=== PATIENT | female | born 1960 | race Caucasian/White ===

== ENCOUNTER → 2017-12-30 07:19 | Outpatient (CLI) | payer BC, SELFPAY ==
[2017-12-30 07:47] LABS: Absolute Lymphocyte Count 2.15 X10^3/ul (0.83-4.51); Absolute Neutrophil Count 3.6 X10^3/uL (2.0-7.7); Basophil# 0.04 X10^3/uL; Basophil% 0.6 % (0-1); Eosinophil# 0.14 X10^3/uL; Eosinophils% 2.2 % (0-5); Hematocrit 42.4 % (37-47); Hemoglobin 13.5 g/dl (12.0-15.0); Lymphocyte # 2.15 X10^3/ul (4.0); Lymphocyte % 33.1 % (19-41); Mean Corp Hgb Conc 31.8 g/gl (32-36); Mean Platelet Vol. 9.5 fl (6.2-12.0); Monocyte# 0.59 X10^3/uL; Monocyte% 9.1 % (0-10); Neutrophil # 3.56 X10^3/uL (2.7-7.7); Neutrophil % 54.8 % (47-70); Platelet Count 332 K/mm3 (150-450); RBC Distribution Width CV 13.2 % (11.6-14.6); RBC Distribution Width SD 43.3 fl (35.1-43.9); Red Blood Count 4.66 M/mm3 (4.2-5.4); White Blood Count 6.5 K/mm3 (4.4-11.0)
[2017-12-30 07:56] LABS: POSITIVE COUNT NO; POSITIVE DIFFERENTIAL NO; POSITIVE MORPHOLOGY NO
[2017-12-30 08:07] LABS: ALB/GLOB Ratio 1.1 RATIO (0.9-2.4); AST(SGOT) 21 U/L (15-37); Alanine Aminotransfer ALT/SGPT 32 U/L (13-56); Albumin, Serum 3.9 g/dL (3.2-5.0); Alkaline Phosphatase 87 U/L (45-117); Anion Gap 7 (5-15); BUN 17 mg/dL (7-18); Calcium,Total 9.1 mg/dL (8.5-10.1); Chloride 101 mmol/L (98-107); Cholesterol 194 mg/dL (200); Creatinine, Serum 0.81 mg/dL (0.55-1.02); EST Glomerular Filtration Rate 78 mL/min (>60); Est Glom Filt Rate - Afr Amer 94 mL/min (>60); Globulin 3.6 g/dL (2.2-4.2); Glucose 103 mg/dL (74-106); High Density Lipoprotein 41 mg/dL; Potassium 4.2 mmol/L (3.5-5.1); Protein, Total 7.5 g/dL (6.4-8.2); Sodium Level 138 mmol/L (136-145); Triglycerides 253 mg/dL; Very Low Density Lipoprotein 51 mg/dL (5-40)
[2017-12-30 08:54] LABS: Vitamin D,25 Hydroxy 32.8 ng/mL (29.95-100.01)
== END ==
PROVIDERS: Family Provider Nurse Practitioner Family; PCP Nurse Practitioner Family; Visit Provider Nurse Practitioner Family
DX: I10 Essential (primary) hypertension (principal); E78.5 Hyperlipidemia, unspecified; E55.9 Vitamin D deficiency, unspecified
CPT/HCPCS: 36415; 80053; 80061; 82306; 85025

== ENCOUNTER → 2018-07-01 07:11 | Outpatient (CLI) | payer BC, SELFPAY ==
[2018-07-01 08:26] LABS: Absolute Lymphocyte Count 1.86 X10^3/ul (0.83-4.51); Absolute Neutrophil Count 4.5 X10^3/uL (2.0-7.7); Basophil# 0.04 X10^3/uL; Basophil% 0.5 % (0-1); Eosinophil# 0.18 X10^3/uL; Eosinophils% 2.5 % (0-5); Hematocrit 43.1 % (37-47); Lymphocyte # 1.86 X10^3/ul (4.0); Lymphocyte % 25.5 % (19-41); Mean Corp Hgb Conc 32.5 g/gl (32-36); Mean Corpuscular Hgb 29.4 pg (27.0-32.0); Mean Corpuscular Volume 90.4 fL (81-99); Monocyte# 0.69 X10^3/uL; Monocyte% 9.5 % (0-10); Neutrophil % 61.7 % (47-70); Platelet Count 310 K/mm3 (150-450); RBC Distribution Width CV 13.3 % (11.6-14.6); RBC Distribution Width SD 43.6 fl (35.1-43.9); Red Blood Count 4.77 M/mm3 (4.2-5.4); White Blood Count 7.3 K/mm3 (4.4-11.0)
[2018-07-01 08:38] LABS: POSITIVE COUNT NO; POSITIVE DIFFERENTIAL NO; POSITIVE MORPHOLOGY NO
[2018-07-01 09:04] LABS: ALB/GLOB Ratio 1.1 RATIO (0.9-2.4); AST(SGOT) 23 U/L (15-37); Alanine Aminotransfer ALT/SGPT 37 U/L (13-56); Albumin, Serum 3.8 g/dL (3.2-5.0); Alkaline Phosphatase 81 U/L (45-117); Anion Gap 10 (5-15); BUN 15 mg/dL (7-18); BUN/Creat Ratio 19.7 RATIO (10-20); Chloride 101 mmol/L (98-107); Cholesterol 183 mg/dL (200); Creatinine, Serum 0.76 mg/dL (0.55-1.02); EST Glomerular Filtration Rate 84 mL/min (>60); Est Glom Filt Rate - Afr Amer 101 mL/min (>60); Globulin 3.5 g/dL (2.2-4.2); Glucose 106 mg/dL (74-106); High Density Lipoprotein 37 mg/dL; Potassium 4.1 mmol/L (3.5-5.1); Protein, Total 7.3 g/dL (6.4-8.2); Sodium Level 140 mmol/L (136-145); Triglycerides 237 mg/dL; Very Low Density Lipoprotein 47 mg/dL (5-40)
== END ==
PROVIDERS: Family Provider Nurse Practitioner Family; PCP Nurse Practitioner Family; Visit Provider Nurse Practitioner Family
DX: I10 Essential (primary) hypertension (principal); E78.5 Hyperlipidemia, unspecified
CPT/HCPCS: 36415; 80053; 80061; 85025

== ENCOUNTER → 2018-12-27 07:00 | Outpatient (CLI) | payer BC, SELFPAY ==
[2018-12-27 08:25] LABS: Absolute Lymphocyte Count 1.78 X10^3/ul (0.83-4.51); Absolute Neutrophil Count 4.7 X10^3/uL (2.0-7.7); Basophil# 0.05 X10^3/uL; Basophil% 0.7 % (0-1); Eosinophils% 2.7 % (0-5); Hematocrit 44.6 % (37-47); Hemoglobin 14.1 g/dl (12.0-15.0); Lymphocyte # 1.78 X10^3/ul (4.0); Mean Corp Hgb Conc 31.6 g/gl (32-36); Mean Corpuscular Hgb 28.4 pg (27.0-32.0); Mean Corpuscular Volume 89.7 fL (81-99); Mean Platelet Vol. 10.2 fl (6.2-12.0); Monocyte# 0.73 X10^3/uL; Monocyte% 9.8 % (0-10); Neutrophil # 4.66 X10^3/uL (2.7-7.7); Neutrophil % 62.7 % (47-70); Platelet Count 276 K/mm3 (150-450); RBC Distribution Width CV 13.2 % (11.6-14.6); RBC Distribution Width SD 42.6 fl (35.1-43.9); Red Blood Count 4.97 M/mm3 (4.2-5.4); White Blood Count 7.4 K/mm3 (4.4-11.0)
[2018-12-27 08:26] LABS: POSITIVE COUNT NO; POSITIVE DIFFERENTIAL NO; POSITIVE MORPHOLOGY NO
[2018-12-27 09:00] LABS: ALB/GLOB Ratio 1.1 RATIO (0.9-2.4); AST(SGOT) 23 U/L (15-37); Alanine Aminotransfer ALT/SGPT 40 U/L (13-56); Albumin, Serum 3.9 g/dL (3.2-5.0); Alkaline Phosphatase 87 U/L (45-117); Anion Gap 7 (5-15); BUN 11 mg/dL (7-18); Calcium,Total 8.8 mg/dL (8.5-10.1); Chloride 103 mmol/L (98-107); Cholesterol 168 mg/dL (200); Creatinine, Serum 0.73 mg/dL (0.55-1.02); EST Glomerular Filtration Rate 87 mL/min (>60); Est Glom Filt Rate - Afr Amer 105 mL/min (>60); Globulin 3.4 g/dL (2.2-4.2); Glucose 100 mg/dL (74-106); High Density Lipoprotein 38 mg/dL; Protein, Total 7.3 g/dL (6.4-8.2); Sodium Level 141 mmol/L (136-145); Triglycerides 230 mg/dL; Very Low Density Lipoprotein 46 mg/dL (5-40)
== END ==
PROVIDERS: Family Provider Nurse Practitioner Family; PCP Nurse Practitioner Family; Referring Provider Nurse Practitioner Family; Visit Provider Nurse Practitioner Family
DX: E78.5 Hyperlipidemia, unspecified (principal); I10 Essential (primary) hypertension
CPT/HCPCS: 36415; 80053; 80061; 85025

== ENCOUNTER → 2019-04-27 | Outpatient (CLI) | payer BC, SELFPAY ==
--- NOTE | 2019-04-27 18:42 | STRESSREP ---
Stress Test Report Pharmacologic myocardial perfusion stress test. 59-year-old lady with a history of known coronary artery disease premature ventricular complexes. Medications: Diovan, Lopressor, Protonix, Plavix, aspirin. Stress protocol: Resting EKG demonstrates normal sinus rhythm with a rate of 71 bpm and frequent premature ventricular complexes noted. Resting blood pressure 162/90 mmHg. 0.4 mg of adenosine was infused per usual protocol followed Intravenous saline flush injection continuous EKG monitoring was performed. Patient maintained sinus rhythm throughout the recording. There was frequent ventricular ectopy noted some in the pattern of bigeminy. The above appeared to be asymptomatic. The maximum heart rate attained was 94 bpm which was 57% of maximum predicted heart rate and maximum workload was 1 metabolic equivalent. The resting blood pressure 162/90 with a final blood pressure 160/88 mmHg. Myocardial perfusion protocol. 13.9 mCi of technetium 99m sestamibi was injected at rest. 0.4 mg of regadenoson was infused per usual protocol peak infusion 41.3 mCi of technetium 99m sestamibi was injected stress images were obtained stress and rest images are reconstructed in comparing the short axis vertical long horizontal long axis. Gated images were also obtained Perfusion SPECT analysis: Review of the images demonstrate a normal cardiac silhouette size. The septum anterior wall lateral wall and inferior wall appear to be well perfused. There is a discrete perfusion defect noted at the apex on the stress and resting images which appeared to be similar. There is also reduced perfusion noted in the mid inferior wall. This is present on the stress and resting images as well. Previous infarct in this distribution cannot be completely excluded. No gated imaging was obtained. Conclusion pharmacologic myocardial perfusion stress test with no obvious ischemia noted. Previous apical infarct cannot be completely excluded as well as mid inferior infarct Premature ventricular complexes noted with ventricular bigeminy present.
== END | disposition home or self-care (01) ==
PROVIDERS: Family Provider Nurse Practitioner Family; PCP Nurse Practitioner Family
DX: R06.02 Shortness of breath (principal); I49.3 Ventricular premature depolarization
CPT/HCPCS: 78452; 93017; 93225; 93226; A9500; A4216; J2785

== ENCOUNTER → 2019-05-29 | Outpatient (CLI) | payer BC, SELFPAY ==
--- NOTE | 2019-05-29 10:38 | PFT ---
INTRODUCTION: The patient is a 59-year-old female who presents for pulmonary function studies secondary to a diagnosis of shortness of breath. Respiratory therapy reports good patient effort. Bronchodilators were used during testing. INTERPRETATION: Forced expiration spirometry demonstrates the presence of a moderate large airways obstructive ventilatory defect with an FEV1 of 66% of predicted. There was a significant response to aerosolized bronchodilators, based upon change noted in FEV1. Spirograms are of good quality and plateau gradually. Body plethysmography was performed and reveals an elevated RV to 154% of predicted, indicative of underlying air trapping. Diffusing capacity by single breath CO is within normal limits. IMPRESSION: Moderate obstructive ventilatory impairment with significant bronchodilator response and associated air trapping.
== END | disposition home or self-care (01) ==
LOC: PSN 06:41
PROVIDERS: Family Provider Nurse Practitioner Family; PCP Nurse Practitioner Family
DX: R06.02 Shortness of breath (principal)
CPT/HCPCS: 94060; 94726; 94729

== ENCOUNTER → 2019-08-15 | Outpatient (CLI) | payer BC, SELFPAY ==
[2019-08-15 09:22] LABS: Absolute Lymphocyte Count 1.97 X10^3/uL (0.83-4.51); Absolute Neutrophil Count 5.4 X10^3/uL (2.0-7.7); Basophil% 1.2 % (0-1); Eosinophil# 0.26 X10^3/uL; Hematocrit 43.5 % (37-47); Hemoglobin 14.2 g/dL (12.0-15.0); Lymphocyte # 1.97 X10^3/ul (4.0); Lymphocyte % 22.7 % (19-41); Mean Corp Hgb Conc 32.6 g/dL (32-36); Mean Corpuscular Hgb 29.3 pg (27.0-32.0); Mean Corpuscular Volume 89.9 fL (81-99); Mean Platelet Vol. 9.8 fl (6.2-12.0); Monocyte# 0.88 X10^3/uL; Monocyte% 10.2 % (0-10); NRBC Flagged by Analyzer 0 % (0-5); Neutrophil # 5.42 X10^3/uL (2.7-7.7); Neutrophil % 62.6 % (47-70); Platelet Count 321 K/mm3 (150-450); RBC Distribution Width CV 12.5 % (11.6-14.6); RBC Distribution Width SD 41.2 fl (35.1-43.9); Red Blood Count 4.84 M/mm3 (4.2-5.4); White Blood Count 8.7 K/mm3 (4.4-11.0)
[2019-08-15 09:49] LABS: ALB/GLOB Ratio 1.2 RATIO (0.9-2.4); AST(SGOT) 19 U/L (15-37); Alanine Aminotransfer ALT/SGPT 33 U/L (13-56); Albumin, Serum 3.8 g/dL (3.2-5.0); Alkaline Phosphatase 83 U/L (45-117); Anion Gap 6 (5-15); BUN 11 mg/dL (7-18); BUN/Creat Ratio 17.2 RATIO (10-20); Calcium,Total 9.1 mg/dL (8.5-10.1); Chloride 102 mmol/L (98-107); Cholesterol 167 mg/dL (200); Creatinine, Serum 0.64 mg/dL (0.55-1.02); EST Glomerular Filtration Rate 101 mL/min (>60); Est Glom Filt Rate - Afr Amer 123 mL/min (>60); Globulin 3.3 g/dL (2.2-4.2); Glucose 98 mg/dL (74-106); High Density Lipoprotein 45 mg/dL; Protein, Total 7.1 g/dL (6.4-8.2); Sodium Level 137 mmol/L (136-145); Triglycerides 121 mg/dL; Very Low Density Lipoprotein 24 mg/dL (5-40)
== END | disposition home or self-care (01) ==
LOC: LAB 08:07
PROVIDERS: Family Provider Nurse Practitioner Family; PCP Nurse Practitioner Family; Referring Provider Nurse Practitioner Family; Visit Provider Nurse Practitioner Family
DX: E78.5 Hyperlipidemia, unspecified (principal); I10 Essential (primary) hypertension; E55.9 Vitamin D deficiency, unspecified
CPT/HCPCS: 36415; 80053; 80061; 82306; 85025

== ENCOUNTER → 2020-02-24 | Outpatient (CLI) | payer BC, SELFPAY ==
[2020-02-24 07:47] LABS: Hematocrit 45.2 % (37-47); Hemoglobin 14.6 g/dL (12.0-15.0); Mean Corp Hgb Conc 32.3 g/dL (32-36); Mean Corpuscular Hgb 29.4 pg (27.0-32.0); Mean Corpuscular Volume 91.1 fL (81-99); Mean Platelet Vol. 9.1 fl (6.2-12.0); Platelet Count 310 K/mm3 (150-450); Red Blood Count 4.96 M/mm3 (4.2-5.4); White Blood Count 7.1 K/mm3 (4.4-11.0)
[2020-02-24 08:09] LABS: ALB/GLOB Ratio 1.1 RATIO (0.9-2.4); AST(SGOT) 26 U/L (15-37); Alanine Aminotransfer ALT/SGPT 43 U/L (13-56); Alkaline Phosphatase 87 U/L (45-117); Anion Gap 11 (5-15); BUN 11 mg/dL (7-18); BUN/Creat Ratio 15.4 RATIO (10-20); Calcium,Total 9.4 mg/dL (8.5-10.1); Chloride 101 mmol/L (98-107); Cholesterol 197 mg/dL (200); Creatinine, Serum 0.71 mg/dL (0.55-1.02); EST Glomerular Filtration Rate 90 mL/min (>60); Est Glom Filt Rate - Afr Amer 108 mL/min (>60); Globulin 3.7 g/dL (2.2-4.2); Glucose 119 mg/dL (74-106); High Density Lipoprotein 43 mg/dL; Potassium 3.6 mmol/L (3.5-5.1); Protein, Total 7.7 g/dL (6.4-8.2); Sodium Level 139 mmol/L (136-145); Triglycerides 260 mg/dL; Very Low Density Lipoprotein 52 mg/dL (5-40)
== END | disposition home or self-care (01) ==
LOC: LAB 07:23
PROVIDERS: PCP Nurse Practitioner Family; Referring Provider Nurse Practitioner Family; Visit Provider Nurse Practitioner Family
DX: I10 Essential (primary) hypertension (principal); E78.5 Hyperlipidemia, unspecified
CPT/HCPCS: 36415; 80053; 80061; 85027

== ENCOUNTER → 2020-05-11 | Outpatient (CLI) | payer BC, SELFPAY ==
--- NOTE | 2020-05-11 16:26 | EKG12_ITS ---
Test Reason : PRE-OP Blood Pressure : / mmHG Vent. Rate : 073 BPM Atrial Rate : 073 BPM P-R Int : 146 ms QRS Dur : 088 ms QT Int : 434 ms P-R-T Axes : -29 035 076 degrees QTc Int : 478 ms Normal sinus rhythm T wave abnormality, consider lateral ischemia Prolonged QT Abnormal ECG Confirmed by JARAD FLORES ([id number]), make up editor JOSE JACINTO ([id number]) on 05/13/2020 2:40:39 PM Referred By: Kiera Vinson Confirmed By:JARAD FLORES
--- NOTE | 2020-05-11 16:55 | RAD_ITS ---
STUDY: X-RAY CHEST REASON FOR EXAM: Female, 60 years old. pre op for surgery, no chest complaints, is a smoker with early COPD TECHNIQUE: PA and lateral views of the chest. COMPARISON: 04/10/2012. FINDINGS: The lungs are clear and expanded. There is no demonstrated pleural abnormality. Normal size heart. Normal mediastinum and yonatan. Normal visualized pulmonary arteries. Normal visualized aortic arch and descending thoracic aorta. Mild thoracic spondylosis. Soft tissues and bony structures are otherwise unremarkable. RAD/Chest PA and Lateral IMPRESSION: Normal x-ray examination of the chest. Electronically Signed: Clarisse Rasmussen MD at 21:18 EDT Tel , Service support ,
[2020-05-11 17:04] LABS: Absolute Lymphocyte Count 2.36 X10^3/uL (0.83-4.51); Basophil# 0.09 X10^3/uL; Basophil% 1.1 % (0-1); Eosinophil# 0.24 X10^3/uL; Eosinophils% 2.8 % (0-5); Hematocrit 43.2 % (37-47); Lymphocyte # 2.36 X10^3/ul (4.0); Lymphocyte % 27.6 % (19-41); Mean Corp Hgb Conc 32.4 g/dL (32-36); Mean Corpuscular Hgb 29.9 pg (27.0-32.0); Mean Corpuscular Volume 92.1 fL (81-99); Mean Platelet Vol. 9.5 fl (6.2-12.0); Monocyte# 0.88 X10^3/uL; Monocyte% 10.3 % (0-10); NRBC Flagged by Analyzer 0 % (0-5); Neutrophil # 4.96 X10^3/uL (2.7-7.7); Neutrophil % 57.8 % (47-70); Platelet Count 291 K/mm3 (150-450); RBC Distribution Width SD 43.2 fl (35.1-43.9); Red Blood Count 4.69 M/mm3 (4.2-5.4); White Blood Count 8.6 K/mm3 (4.4-11.0)
[2020-05-11 17:28] LABS: Anion Gap 3 (5-15); BUN 17 mg/dL (7-18); BUN/Creat Ratio 24.7 RATIO (10-20); Calcium,Total 9.4 mg/dL (8.5-10.1); Chloride 102 mmol/L (98-107); Creatinine, Serum 0.69 mg/dL (0.55-1.02); EST Glomerular Filtration Rate 93 mL/min (>60); Est Glom Filt Rate - Afr Amer 113 mL/min (>60); Glucose 94 mg/dL (74-106); Potassium 3.6 mmol/L (3.5-5.1); Sodium Level 136 mmol/L (136-145)
== END | disposition home or self-care (01) ==
PROVIDERS: PCP Nurse Practitioner Family; Referring Provider Registered Nurse; Visit Provider Registered Nurse
DX: Z01.818 Encounter for other preprocedural examination (principal)
CPT/HCPCS: 36415; 71046; 80048; 85025; 87635; 93005; 94799; U0003

== ENCOUNTER → 2020-09-03 07:18 | Outpatient (CLI) | payer BC, SELFPAY ==
[2020-09-03 07:51] LABS: Hematocrit 44.2 % (37-47); Hemoglobin 14.2 g/dL (12.0-15.0); Mean Corp Hgb Conc 32.1 g/dL (32-36); Mean Corpuscular Hgb 29.3 pg (27.0-32.0); Mean Corpuscular Volume 91.1 fL (81-99); Mean Platelet Vol. 9.4 fl (6.2-12.0); Platelet Count 313 K/mm3 (150-450); RBC Distribution Width CV 12.8 % (11.6-14.6); RBC Distribution Width SD 42.6 fl (35.1-43.9); Red Blood Count 4.85 M/mm3 (4.2-5.4); White Blood Count 7.2 K/mm3 (4.4-11.0)
[2020-09-03 08:43] LABS: ALB/GLOB Ratio 1.2 RATIO (0.9-2.4); AST(SGOT) 24 U/L (15-37); Alanine Aminotransfer ALT/SGPT 36 U/L (13-56); Alkaline Phosphatase 95 U/L (45-117); Anion Gap 5 (5-15); BUN 12 mg/dL (7-18); Chloride 102 mmol/L (98-107); Cholesterol 162 mg/dL (200); Creatinine, Serum 0.67 mg/dL (0.55-1.02); EST Glomerular Filtration Rate 96 mL/min (>60); Est Glom Filt Rate - Afr Amer 117 mL/min (>60); Globulin 3.4 g/dL (2.2-4.2); Glucose 99 mg/dL (74-106); High Density Lipoprotein 45 mg/dL; Potassium 3.7 mmol/L (3.5-5.1); Protein, Total 7.4 g/dL (6.4-8.2); Sodium Level 136 mmol/L (136-145); Triglycerides 121 mg/dL; Very Low Density Lipoprotein 24 mg/dL (5-40)
== END ==
PROVIDERS: PCP Nurse Practitioner Family; Referring Provider Nurse Practitioner Family; Visit Provider Nurse Practitioner Family
DX: I10 Essential (primary) hypertension (principal); E78.5 Hyperlipidemia, unspecified; I25.10 Atherosclerotic heart disease of native coronary artery without angina pectoris
CPT/HCPCS: 36415; 80053; 80061; 85027

== ENCOUNTER → 2021-03-11 09:22 | Outpatient (CLI) | payer BC, SELFPAY ==
[2021-03-11 09:46] LABS: Hematocrit 45.7 % (37-47); Hemoglobin 14.8 g/dL (12.0-15.0); Mean Corp Hgb Conc 32.4 g/dL (32-36); Mean Corpuscular Hgb 29.4 pg (27.0-32.0); Mean Corpuscular Volume 90.7 fL (81-99); Mean Platelet Vol. 9.3 fl (6.2-12.0); Platelet Count 336 K/mm3 (150-450); RBC Distribution Width CV 12.7 % (11.6-14.6); RBC Distribution Width SD 41.7 fl (35.1-43.9); Red Blood Count 5.04 M/mm3 (4.2-5.4); White Blood Count 6.5 K/mm3 (4.4-11.0)
[2021-03-11 10:21] LABS: ALB/GLOB Ratio 1.1 RATIO (0.9-2.4); AST(SGOT) 27 U/L (15-37); Alanine Aminotransfer ALT/SGPT 41 U/L (13-56); Albumin, Serum 4.1 g/dL (3.2-5.0); Alkaline Phosphatase 98 U/L (45-117); Anion Gap 6 (5-15); BUN 13 mg/dL (7-18); BUN/Creat Ratio 16.9 RATIO (10-20); Calcium,Total 9.1 mg/dL (8.5-10.1); Chloride 102 mmol/L (98-107); Cholesterol 183 mg/dL (200); Creatinine, Serum 0.77 mg/dL (0.55-1.02); EST Glomerular Filtration Rate 82 mL/min (>60); Est Glom Filt Rate - Afr Amer 99 mL/min (>60); Globulin 3.7 g/dL (2.2-4.2); Glucose 108 mg/dL (74-106); High Density Lipoprotein 48 mg/dL; Potassium 3.9 mmol/L (3.5-5.1); Protein, Total 7.8 g/dL (6.4-8.2); Sodium Level 138 mmol/L (136-145); Triglycerides 142 mg/dL; Very Low Density Lipoprotein 28 mg/dL (5-40)
== END ==
PROVIDERS: PCP Nurse Practitioner Family; Visit Provider Nurse Practitioner Family
DX: E78.5 Hyperlipidemia, unspecified (principal); I10 Essential (primary) hypertension; R73.01 Impaired fasting glucose; I25.10 Atherosclerotic heart disease of native coronary artery without angina pectoris
CPT/HCPCS: 36415; 80053; 80061; 85027

== ENCOUNTER 2021-04-20 21:20 | Emergency (ER) | payer BC, SELFPAY ==
[2021-04-20 21:21] VITALS: BP 168/105; PULSE 100; RESP 18; TEMP 36.3; O2SAT 100; BMI 36.0
[2021-04-20 21:36] LABS: Bacteria 0 SEEN /hpf (None Seen); Mucous, Urine 0 SEEN /hpf (<or=2+)
[2021-04-20 21:38] LABS: Color, Urine Yellow (Yellow); Glucose, Dipstick 50 mg/dl (Normal); Ketone-Dipstick 15 mg/dl (Negative); Leukocyte Esterase-Dipstick 25 /ul (Negative); Nitrite-Dipstick Negative (Negative); Occult Blood-Urine 10 /ul (Negative); Protein-Dipstick 30 mg/dl (Negative); Urine Clarity Sl. Cloudy (Clear); Urine Urobilinogen 4 mg/dl (Normal)
[2021-04-20 21:43] LABS: Urine Bilirubin Dipstick 3 mg/dL (Negative)
[2021-04-20 21:45] LABS: Red Blood Cells-Urine 0-5 SEEN /hpf (0-5); White Blood Cells 0-5 SEEN /hpf (0-5)
[2021-04-20 21:46] LABS: Amorphous Sediment 1+ URATE; Hyaline Cast 5-10 SEEN /lpf (0-5); Squamous Epithelial Cells - UA 0-5 SEEN /hpf (5-10)
[2021-04-20 22:17] LABS: Absolute Neutrophil Count 7.5 X10^3/uL (2.0-7.7); Basophil# 0.04 X10^3/uL; Basophil% 0.4 % (0-1); Hematocrit 47.6 % (37-47); Hemoglobin 15.8 g/dL (12.0-15.0); Mean Corp Hgb Conc 33.2 g/dL (32-36); Mean Corpuscular Hgb 29.4 pg (27.0-32.0); Mean Corpuscular Volume 88.5 fL (81-99); Mean Platelet Vol. 9.4 fl (6.2-12.0); Monocyte# 0.55 X10^3/uL; Monocyte% 6.1 % (0-10); NRBC Flagged by Analyzer 0 % (0-5); Neutrophil # 7.47 X10^3/uL (2.7-7.7); Neutrophil % 83.1 % (47-70); Platelet Count 347 K/mm3 (150-450); RBC Distribution Width CV 12.7 % (11.6-14.6); RBC Distribution Width SD 41.2 fl (35.1-43.9); Red Blood Count 5.38 M/mm3 (4.2-5.4)
[2021-04-20] MEDS: 0.9% Normal Saline 1,000 ML 1000 ML IV (22:30)
[2021-04-20] MEDS: Ondansetron 4 MG/2 ML Vial IV ×2 (22:30→23:59)
[2021-04-20] MEDS: Morphine 4 MG/ML Syringe IV (22:30)
[2021-04-20 22:32] LABS: Anion Gap 10 (5-15); BUN 19 mg/dL (7-18); BUN/Creat Ratio 16.7 RATIO (10-20); Calcium,Total 10.2 mg/dL (8.5-10.1); Chloride 103 mmol/L (98-107); Creatinine, Serum 1.14 mg/dL (0.55-1.02); EST Glomerular Filtration Rate 52 mL/min (>60); Est Glom Filt Rate - Afr Amer 63 mL/min (>60); Estimated Creatinine Clearance 42.02 ml/min; Glucose 175 mg/dL (74-106); Potassium 3.6 mmol/L (3.5-5.1); Sodium Level 136 mmol/L (136-145)
[2021-04-20 22:54] LABS: AST(SGOT) 30 U/L (15-37); Alanine Aminotransfer ALT/SGPT 45 U/L (13-56); Albumin, Serum 4.5 g/dL (3.2-5.0); Alkaline Phosphatase 101 U/L (45-117); Globulin 3.8 g/dL (2.2-4.2); Lipase 67 U/L (73-393); Protein, Total 8.3 g/dL (6.4-8.2)
[2021-04-21] MEDS: Morphine 4 MG/ML Syringe IV (00:47)
--- NOTE | 2021-04-21 00:57 | EDS_ITS ---
HPI HPI - GI History of Present Illness Chief Complaint: Abd Pain Informant: patient Abdominal Pain/Flank Pain Onset: Yesterday Context: Gradual Onset Timing: Continuous Quality: Dull Location: Epigastric, RUQ and LUQ Worsened by: Nothing Relieved by: Nothing Nausea/Vomiting/Emesis GI Symptom: Positive for Nausea and Vomiting Onset: Yesterday Quality: Positive for Blood streaks Diarrhea/Melena/Hematochezia GI Symptom: Negative for Diarrhea, Melena and Hematochezia Associated Symptoms Associated Symptoms: Negative for Dysuria and Hematuria Narrative Narrative: Patient presents with abdominal pain, nausea, and vomiting for the past 3 days. Patient states it is gradually gotten worse. Patient states her pain is over the epigastric and upper abdomen. Patient describes her pain as a dull ache. Patient states nothing makes it worse and nothing makes it better. Patient denies any diarrhea, melena, or hematochezia. Patient states she has noted some blood in her emesis. Patient denies any dysuria or hematuria. [facility] Medical History Hypertension Home Medications aspirin 325 mg PO QHS 06/06/16 [History Last Taken 06/04/16] clopidogrel 75 mg PO QHS 06/06/16 [History Last Taken 06/04/16] hydrochlorothiazide 12.5 mg PO DAILY 06/06/16 [History Last Taken 06/06/16] lisinopril [Zestril] 40 mg PO BID 06/06/16 [History Last Taken 06/06/16] metoprolol tartrate 50 mg PO BID 06/06/16 [History Last Taken 06/06/16] pantoprazole 40 mg PO DAILY 06/06/16 [History Last Taken 06/06/16] rosuvastatin 10 mg PO QHS 06/06/16 [History Last Taken 06/04/16] promethazine [Phenergan] 25 mg RECTAL Q4H PRN PRN #14 suppos. 08/20/16 [Rx Last Taken Unknown] buspirone 10 mg PO TID 09/29/17 [History Last Taken Unknown] dicyclomine 20 mg PO ACHS #10 cap 09/29/17 [Rx Last Taken Unknown] ondansetron 4 mg PO Q8H PRN PRN #10 tab 04/21/21 [Rx Last Taken Unknown] Allergy/AdvReac Type Severity Reaction Status Date / Time No Known Allergies Allergy Verified 04/20/21 21:23 Surgical History History of appendectomy History of cholecystectomy Social History Smoking Status: Current some day smoker tobacco type: cigarettes ROS ROS ED Constitutional Constitutional ED: Denies chills or fever(s) Eyes Eyes: Denies blurry vision or change in vision ENT ENT ED: Denies rhinorrhea or sore throat Cardiovascular Cardiovascular: Denies chest pain or palpitations Respiratory/Chest Respiratory/Chest: Denies cough or dyspnea Gastrointestinal Gastrointestinal: Reports abdominal pain, nausea and vomiting; Denies diarrhea Genitourinary Genitourinary ED: Denies dysuria or hematuria Musculoskeletal Musculoskeletal: Denies back pain or neck pain Integumentary Denies abscess or rash Neurologic Neurologic: Denies headache(s) or weakness Allergic/Immunologic Allergic/Immunologic ED: Denies mouth swelling or urticaria EXAM Physical Exam Const Vital Signs: 04/20/21 21:21 04/20/21 21:39 04/21/21 01:22 Temperature 97.3 F L Temperature Source Temporal Pulse Rate 100 88 Respiratory Rate 18 16 Respiratory Effort Non-Labored Short of Breath Respiratory Depth Normal Respiratory Pattern Normal Blood Pressure 168/105 H 177/81 H Blood Pressure Mean 126 113 Pulse Ox 100 94 Oxygen Delivery Method Room Air Room Air Positive well nourished, well developed and obese General Appearance ED: well developed Nutritional Appearance: obese HEENT Reports moist mucous membranes Neck supple and no JVD Resp normal respiratory effort and clear to auscultation bilaterally Cardio regular rate, regular rhythm and no murmurs GI normal to inspection, nondistended, normoactive bowel sounds and no masses Palpation: soft and tender epigastric, LUQ and RUQ; Negative for guarding or rebound tenderness present Extremity normal to inspection General Extremety ED: Negative for edema or tenderness General Extremity: Negative for edema Neuro oriented x3, CN's II-XII intact bilaterally and no sensory deficits noted Sensorium / Orientation: alert Motor Exam: strength 5/5 throughout Psych mental status grossly normal Skin no rashes or lesions noted MDM MDM MDM Narrative Medical decision making narrative: Patient was given IV fluids, morphine, and Zofran. CBC shows hemoglobin of 15.8 hematocrit of 47.6. Basic metabolic profile was essentially within normal limits. Urinalysis shows leukocyte esterase of 25, urobilinogen of 4, 8 urine bilirubin of 3, occult blood of 10, ketones of 15, glucose of 50, and protein of 30. Specific gravity was 1.030. Liver profile was normal. Lipase was normal. CT scan of the abdomen and pelvis with oral and IV contrast was obtained. There is no acute intra-abdominal abnormality. This was interpreted by the radiologist and reviewed by myself. Patient was given repeat doses of morphine and Zofran. Patient was advised of her findings. Patient is feeling better on reevaluation. Patient was given prescription for Zofran to take as needed for nausea. Patient was instructed to continue her pantoprazole as prescribed. Patient was instructed to follow-up with her primary care physician in 3 to 5 days. Patient understood and was agreeable with the plan. All questions were answered. Lab Data Attestation: I reviewed the patient's lab results. Labs: Laboratory Results - last 24 hr 04/20/21 04/20/21 04/20/21 21:26 22:00 22:00 WBC 9.0 RBC 5.38 Hgb 15.8 H Hct 47.6 H MCV 88.5 MCH 29.4 MCHC 33.2 RDW Std Deviation 41.2 RDW Coeff of Ramos 12.7 Plt Count 347 MPV 9.4 Immature Gran % (Auto) 0.400 Neut % (Auto) 83.1 H Lymph % (Auto) 10.0 L [place] % (Auto) 6.1 Eos % (Auto) 0.0 Baso % (Auto) 0.4 Absolute Neuts (auto) 7.5 Absolute Lymphs (auto) 0.90 Nucleated RBC % 0 Sodium 136 Potassium 3.6 Chloride 103 Carbon Dioxide 23.0 Anion Gap 10 BUN 19 H Creatinine 1.14 H Estim Creat Clear Calc 42.02 Est GFR (MDRD) Af Amer 63 Est GFR (MDRD) Non-Af 52 L BUN/Creatinine Ratio 16.7 Glucose 175 H Calcium 10.2 H Total Bilirubin Direct Bilirubin AST ALT Alkaline Phosphatase Total Protein Albumin Globulin Lipase Urine Color Yellow Urine Clarity Sl. Cloudy Urine pH 5.0 Ur Specific [place] 1.030 Urine Protein 30 H Urine Glucose (UA) 50 H Urine Ketones 15 H Urine Occult Blood 10 H Urine Nitrite Negative Urine Bilirubin 3 H Urine Urobilinogen 4 H Ur Leukocyte Esterase 25 H Urine RBC 0-5 SEEN Urine WBC 0-5 SEEN Ur Squamous Epith Cells 0-5 SEEN Amorphous Sediment 1+ URATE Urine Bacteria 0 SEEN Hyaline Casts 5-10 SEEN Urine Mucus 0 SEEN 04/20/21 22:00 WBC RBC Hgb Hct MCV MCH MCHC RDW Std Deviation RDW Coeff of Ramos Plt Count MPV Immature Gran % (Auto) Neut % (Auto) Lymph % (Auto) [place] % (Auto) Eos % (Auto) Baso % (Auto) Absolute Neuts (auto) Absolute Lymphs (auto) Nucleated RBC % Sodium Potassium Chloride Carbon Dioxide Anion Gap BUN Creatinine Estim Creat Clear Calc Est GFR (MDRD) Af Amer Est GFR (MDRD) Non-Af BUN/Creatinine Ratio Glucose Calcium Total Bilirubin 0.70 Direct Bilirubin 0.20 AST 30 ALT 45 Alkaline Phosphatase 101 Total Protein 8.3 H Albumin 4.5 Globulin 3.8 Lipase 67 L Urine Color Urine Clarity Urine pH Ur Specific [place] Urine Protein Urine Glucose (UA) Urine Ketones Urine Occult Blood Urine Nitrite Urine Bilirubin Urine Urobilinogen Ur Leukocyte Esterase Urine RBC Urine WBC Ur Squamous Epith Cells Amorphous Sediment Urine Bacteria Hyaline Casts Urine Mucus Radiography Diagnostic Testing: Radiology Impression Abdomen/Pelvis CT 04/21/21 22:22 IMPRESSION: Unremarkable exam. Status post cholecystectomy Electronically Signed: Mundo Tejada DO at 1:07 EDT Tel , Service support , Discharge Plan Triage Chief Complaint: Abd Pain ED Provider: Edmundo Monae Dx/Rx/DC Orders Clinical Impression: Nausea and vomiting Instructions: ED Abdominal Pain Unkn Cause Fem, ED Vomiting (Adult) Prescriptions: New ondansetron [ondansetron] 4 MG tablet 4 mg PO Q8H PRN PRN (Reason: Nausea) Qty: 10 RF: 0 Continued pantoprazole 40 MG tablet 40 mg PO DAILY RF: 0 Discontinued ondansetron 4 MG tablet 4 mg PO Q8H PRN PRN (Reason: Nausea) Qty: 10 RF: 0 ondansetron 8 MG tablet,disintegrating 8 mg PO Q8H PRN PRN (Reason: Nausea/Vomiting) Qty: 5 RF: 0 No Action aspirin 325 MG tablet 325 mg PO QHS RF: 0 clopidogrel 75 MG tablet 75 mg PO QHS RF: 0 metoprolol tartrate 50 MG tablet 50 mg PO BID RF: 0 hydrochlorothiazide 12.5 MG capsule 12.5 mg PO DAILY RF: 0 lisinopril [Zestril] 40 MG tablet 40 mg PO BID RF: 0 rosuvastatin 10 MG tablet 10 mg PO QHS RF: 0 promethazine [Promethegan] 25 MG suppository 25 mg RECTAL Q4H PRN PRN (Reason: Vomiting) Qty: 14 RF: 0 buspirone 5 MG tablet 10 mg PO TID RF: 0 dicyclomine 10 MG capsule 20 mg PO ACHS Qty: 10 RF: 0 Primary Care Provider: Rodney Griffin NP Referrals: Rodney Griffin NP, PHYSICIAN OFFICE ASSISTANT-C [Primary Care Provider] - Disposition Disposition: Home, Self Care
[2021-04-21 01:22] VITALS: BP 177/81; PULSE 88; RESP 16; O2SAT 94
--- NOTE | 2021-04-21 22:22 | CT_ITS ---
STUDY: CT ABDOMEN AND PELVIS WITH CONTRAST REASON FOR EXAM: Female, 61 years old. Abdominal pain -- IV PO Contrast RADIATION DOSAGE (If Supplied By Facility): CTDIvol = ( 15.13 ) mGy, DLP = ( 990.67 ) mGycm TECHNIQUE: Transaxial images were obtained from the dome of the diaphragm to the symphysis pubis with oral contrast. Oral and amp; IV Breeza Neutral and amp; 100mL Isovue-370 was administered. Sagittal and coronal images were reconstructed. Individualized dose optimization techniques were used for this CT. COMPARISON: None. FINDINGS: The visualized lung bases are unremarkable. The visualized portions of the heart are within normal limits. Normal liver. There are surgical clips in the gallbladder fossa consistent with a prior cholecystectomy. Normal spleen. Normal pancreas. Normal bilateral adrenal glands. Normal right kidney. Normal left kidney. Normal visualized stomach. Normal small intestine. There are multiple colonic diverticula consistent with diverticulosis. The appendix is visualized and appears normal. There is diffuse atherosclerotic calcification of the abdominal aorta, without a demonstrated aneurysm. Normal inferior vena cava. Normal retroperitoneum. Normal urinary bladder. Normal visualized uterus. Normal abdominal wall. Normal osseous structures. CT/Abdomen/Pelvis WITH Contrast IMPRESSION: Unremarkable exam. Status post cholecystectomy Electronically Signed: Mundo Tejada DO at 1:07 EDT Tel , Service support ,
== END 2021-04-21 01:48 | disposition home or self-care (01) ==
PROVIDERS: Emergency Provider Emergency Medicine; PCP Nurse Practitioner Family
DX: R11.2 Nausea with vomiting, unspecified (principal); I10 Essential (primary) hypertension; F17.210 Nicotine dependence, cigarettes, uncomplicated; E66.9 Obesity, unspecified; Z79.899 Other long term (current) drug therapy
CPT/HCPCS: 74177; 80048; 80076; 81001; 83690; 85025; 96361; 96374; 96375; 96376; 99284; J7030; Q9967; A4216; J2405

== ENCOUNTER → 2021-09-16 08:10 | Outpatient (CLI) | payer BC, SELFPAY ==
[2021-09-16 08:48] LABS: Hematocrit 44.5 % (37-47); Hemoglobin 14.9 g/dL (12.0-15.0); Mean Corp Hgb Conc 33.5 g/dL (32-36); Mean Corpuscular Hgb 29.3 pg (27.0-32.0); Mean Corpuscular Volume 87.6 fL (81-99); Mean Platelet Vol. 9.3 fl (6.2-12.0); Platelet Count 312 K/mm3 (150-450); RBC Distribution Width CV 12.7 % (11.6-14.6); Red Blood Count 5.08 M/mm3 (4.2-5.4); White Blood Count 5.8 K/mm3 (4.4-11.0)
[2021-09-16 09:19] LABS: AST(SGOT) 30 U/L (15-37); Alanine Aminotransfer ALT/SGPT 56 U/L (13-56); Alkaline Phosphatase 113 U/L (45-117); Anion Gap 9 (5-15); BUN 8 mg/dL (7-18); BUN/Creat Ratio 13.3 RATIO (10-20); Chloride 100 mmol/L (98-107); Cholesterol 181 mg/dL (200); EST Glomerular Filtration Rate 108 mL/min (>60); Est Glom Filt Rate - Afr Amer 131 mL/min (>60); Glucose 98 mg/dL (74-106); High Density Lipoprotein 43 mg/dL; Potassium 3.8 mmol/L (3.5-5.1); Sodium Level 138 mmol/L (136-145); Triglycerides 203 mg/dL; Very Low Density Lipoprotein 41 mg/dL (5-40)
[2021-09-18 09:44] LABS: Vitamin D,25 Hydroxy 28.5 ng/mL
== END ==
PROVIDERS: PCP Nurse Practitioner Family; Referring Provider Nurse Practitioner Family; Visit Provider Nurse Practitioner Family
DX: E55.9 Vitamin D deficiency, unspecified (principal); I10 Essential (primary) hypertension; E78.5 Hyperlipidemia, unspecified; R73.01 Impaired fasting glucose
CPT/HCPCS: 36415; 80053; 80061; 82306; 85027

== ENCOUNTER → 2022-03-31 | Outpatient (CLI) | payer BC, SELFPAY ==
[2022-03-31 09:17] LABS: Hematocrit 45.2 % (37-47); Hemoglobin 15.2 g/dL (12.0-15.0); Mean Corp Hgb Conc 33.6 g/dL (32-36); Mean Corpuscular Hgb 29.7 pg (27.0-32.0); Mean Corpuscular Volume 88.5 fL (81-99); Mean Platelet Vol. 9.4 fl (6.2-12.0); Platelet Count 307 K/mm3 (150-450); RBC Distribution Width CV 12.5 % (11.6-14.6); RBC Distribution Width SD 41.4 fl (35.1-43.9); Red Blood Count 5.11 M/mm3 (4.2-5.4); White Blood Count 5.8 K/mm3 (4.4-11.0)
[2022-03-31 10:07] LABS: AST(SGOT) 21 U/L (15-37); Alanine Aminotransfer ALT/SGPT 37 U/L (13-56); Albumin, Serum 3.6 g/dL (3.2-5.0); Alkaline Phosphatase 98 U/L (45-117); Anion Gap 6 (5-15); BUN 13 mg/dL (7-18); BUN/Creat Ratio 17.1 RATIO (10-20); Calcium,Total 8.9 mg/dL (8.5-10.1); Chloride 102 mmol/L (98-107); Cholesterol 160 mg/dL (200); Creatinine, Serum 0.76 mg/dL (0.55-1.02); EST Glomerular Filtration Rate 82 mL/min (>60); Est Glom Filt Rate - Afr Amer 100 mL/min (>60); Globulin 3.5 g/dL (2.2-4.2); Glucose 102 mg/dL (74-106); High Density Lipoprotein 38 mg/dL; Protein, Total 7.1 g/dL (6.4-8.2); Sodium Level 137 mmol/L (136-145); Triglycerides 141 mg/dL; Very Low Density Lipoprotein 28 mg/dL (5-40)
[2022-04-02 08:01] LABS: Vitamin D,25 Hydroxy 47.8 ng/mL
== END | disposition home or self-care (01) ==
LOC: LAB 08:05
PROVIDERS: PCP Nurse Practitioner Family; Referring Provider Nurse Practitioner Family; Visit Provider Nurse Practitioner Family
DX: I25.10 Atherosclerotic heart disease of native coronary artery without angina pectoris (principal); J44.9 Chronic obstructive pulmonary disease, unspecified; E78.5 Hyperlipidemia, unspecified; R63.8 Other symptoms and signs concerning food and fluid intake; E55.9 Vitamin D deficiency, unspecified; R73.01 Impaired fasting glucose
CPT/HCPCS: 36415; 80053; 80061; 82306; 85027

== ENCOUNTER 2022-07-12 10:44 | Emergency (ER) | payer BC, SELFPAY ==
[2022-07-12 10:45] VITALS: BP 163/141; PULSE 79; RESP 18; TEMP 35.7; O2SAT 99; BMI 30.4
--- NOTE | 2022-07-12 11:20 | ED.VIS.GI ---
HPI HPI - GI History of Present Illness Chief Complaint: Abd Pain Abdominal Pain/Flank Pain Onset: Today Context: Sudden Onset Timing: Continuous Quality: Aching Location: Epigastric and RUQ Worsened by: Nothing Relieved by: Nothing Nausea/Vomiting/Emesis GI Symptom: Positive for Nausea and Vomiting Quality: Positive for Nonbilious; Negative for Blood streaks, Coffee ground or Hematemesis Diarrhea/Melena/Hematochezia GI Symptom: Negative for Diarrhea, Melena or Hematochezia Associated Symptoms Associated Symptoms: Negative for Dysuria, Frequency or Hematuria Narrative Narrative: Presents with epigastric abdominal pain that began today. Patient states that the pain is mainly over the epigastric and right upper abdomen. Patient describes the pain as aching. Patient states the pain is constant. Patient states it began shortly after getting to work today. Patient states nothing makes it worse and nothing makes it better. Patient admits to some nausea and vomiting. Patient denies any hematemesis or coffee-ground emesis. Patient denies any diarrhea, melena, or hematochezia. Patient denies any urinary complaints. Patient denies any back pain. Patient denies any fevers or chills. [facility] Medical History Hypertension Home Medications aspirin 325 mg tablet 325 mg PO QHS 06/06/16 [History Last Taken 06/04/16] clopidogrel 75 mg tablet 75 mg PO QHS 06/06/16 [History Last Taken 06/04/16] hydrochlorothiazide 12.5 mg capsule 12.5 mg PO DAILY 06/06/16 [History Last Taken 06/06/16] lisinopril 40 mg tablet (Zestril) 40 mg PO BID 06/06/16 [History Last Taken 06/06/16] metoprolol tartrate 50 mg tablet 50 mg PO BID 06/06/16 [History Last Taken 06/06/16] rosuvastatin 10 mg tablet 10 mg PO QHS 06/06/16 [History Last Taken 06/04/16] promethazine 25 mg rectal suppository (Promethegan) 25 mg RECTAL Q4H PRN PRN Vomiting ##14 08/20/16 [Rx Last Taken Unknown] buspirone 5 mg tablet 10 mg PO TID 09/29/17 [History Last Taken Unknown] dicyclomine 10 mg capsule 20 mg PO ACHS #10 caps 09/29/17 [Rx Last Taken Unknown] ondansetron 4 mg disintegrating tablet 4 mg PO Q8H PRN PRN Nausea #10 tabs 04/21/21 [Rx Last Taken Unknown] hydrocodone-acetaminophen 5-325mg 5mg-325mg 1 tab PO Q6H PRN PRN Pain 3 days #10 TABLETS 07/12/22 [Rx Last Taken Unknown] ondansetron 4 mg disintegrating tablet 4 mg PO Q8H PRN PRN Nausea #10 tabs 07/12/22 [Rx Last Taken Unknown] pantoprazole 40 mg tablet,delayed release 40 mg PO DAILY #30 tabs 07/12/22 [Rx Last Taken Unknown] Allergy/AdvReac Type Severity Reaction Status Date / Time No Known Allergies Allergy Verified 07/12/22 10:46 Surgical History History of appendectomy History of cholecystectomy Social History Smoking Status: Current some day smoker tobacco type: cigarettes ROS ROS ED Constitutional Constitutional ED: Denies chills or fever(s) Eyes Eyes: Denies blurry vision or change in vision ENT ENT ED: Denies rhinorrhea or sore throat Cardiovascular Cardiovascular: Denies chest pain or palpitations Respiratory/Chest Respiratory/Chest: Denies cough or dyspnea Gastrointestinal Gastrointestinal: Reports abdominal pain, nausea and vomiting; Denies diarrhea Genitourinary Genitourinary ED: Denies dysuria or hematuria Musculoskeletal Musculoskeletal: Denies back pain or neck pain Integumentary Denies abscess or rash Neurologic Neurologic: Denies headache(s) or weakness Allergic/Immunologic Allergic/Immunologic ED: Denies mouth swelling or urticaria EXAM Physical Exam Const Vital Signs: 07/12/22 10:45 07/12/22 13:01 Temperature 96.2 F L Temperature Source Temporal Pulse Rate 79 84 Respiratory Rate 18 16 Blood Pressure 163/141 H 142/67 H Blood Pressure Mean 148 92 Pulse Ox 99 97 Oxygen Delivery Method Room Air Room Air Positive well nourished and well developed General Appearance ED: well developed and NAD HEENT Reports moist mucous membranes Neck supple and no JVD Resp normal respiratory effort and clear to auscultation bilaterally Cardio regular rate, regular rhythm and no murmurs GI normal to inspection, nondistended, normoactive bowel sounds Palpation: soft and tender epigastric and RUQ; Negative for guarding or rebound tenderness present Extremity normal to inspection General Extremety ED: Negative for edema or tenderness General Extremity: Negative for edema Neuro oriented x3, CN's II-XII intact bilaterally and no sensory deficits noted Sensorium / Orientation: alert Motor Exam: strength 5/5 throughout Psych mental status grossly normal Skin no rashes or lesions noted MDM MDM MDM Narrative Medical decision making narrative: Patient was given IV fluids, morphine, and Zofran. CBC shows a hemoglobin of 15.9 and hematocrit 47.7. Comprehensive metabolic profile was essentially within normal limits. Lipase was normal. Lactate was 2.0. Urinalysis does not show any evidence of urinary tract infection. CT scan of the abdomen and pelvis was obtained. There is fatty infiltration of the liver. There is sigmoid diverticulosis but no evidence of sigmoid diverticulitis. There is no acute abnormality. This was interpreted by the radiologist and reviewed by myself. Patient was advised of her findings. Patient was given a prescription for omeprazole. Patient was also given prescriptions for Zofran and a short course of Keldron. Patient was instructed to follow-up with her primary care physician in 3 to 5 days. Patient understood and was agreeable with the plan. All questions were answered. Lab Data Attestation: I reviewed the patient's lab results. Labs: Laboratory Results - last 24 hr 07/12/22 07/12/22 07/12/22 11:36 11:36 11:36 WBC 9.4 RBC 5.34 Hgb 15.9 H Hct 47.7 H MCV 89.3 MCH 29.8 MCHC 33.3 RDW Std Deviation 42.6 RDW Coeff of Ramos 13.0 Plt Count 322 MPV 9.4 Immature Gran % (Auto) 0.500 Neut % (Auto) 78.8 H Lymph % (Auto) 11.8 L [place] % (Auto) 7.7 Eos % (Auto) 0.7 Baso % (Auto) 0.5 Absolute Neuts (auto) 7.4 Absolute Lymphs (auto) 1.10 Nucleated RBC % 0 Sodium 141 Potassium 3.7 Chloride 105 Carbon Dioxide 27.0 Anion Gap 9 BUN 13 Creatinine 1.03 H Estim Creat Clear Calc 45.94 Est GFR (MDRD) Af Amer 70 Est GFR (MDRD) Non-Af 58 L BUN/Creatinine Ratio 12.6 Glucose 170 H Lactic Acid 2.0 Calcium 10.1 Total Bilirubin 0.60 AST 21 ALT 31 Alkaline Phosphatase 95 Total Protein 8.1 Albumin 4.4 Globulin 3.7 Albumin/Globulin Ratio 1.2 Lipase 110 Urine Color Urine Clarity Urine pH Ur Specific [place] Urine Protein Urine Glucose (UA) Urine Ketones Urine Occult Blood Urine Nitrite Urine Bilirubin Urine Urobilinogen Ur Leukocyte Esterase Urine RBC Urine WBC Ur Squamous Epith Cells Urine Bacteria Urine Mucus 07/12/22 14:10 WBC RBC Hgb Hct MCV MCH MCHC RDW Std Deviation RDW Coeff of Ramos Plt Count MPV Immature Gran % (Auto) Neut % (Auto) Lymph % (Auto) [place] % (Auto) Eos % (Auto) Baso % (Auto) Absolute Neuts (auto) Absolute Lymphs (auto) Nucleated RBC % Sodium Potassium Chloride Carbon Dioxide Anion Gap BUN Creatinine Estim Creat Clear Calc Est GFR (MDRD) Af Amer Est GFR (MDRD) Non-Af BUN/Creatinine Ratio Glucose Lactic Acid Calcium Total Bilirubin AST ALT Alkaline Phosphatase Total Protein Albumin Globulin Albumin/Globulin Ratio Lipase Urine Color Yellow Urine Clarity Clear Urine pH 7.0 Ur Specific [place] 1.010 Urine Protein Negative Urine Glucose (UA) Normal Urine Ketones 5 H Urine Occult Blood 10 H Urine Nitrite Negative Urine Bilirubin Negative Urine Urobilinogen Normal Ur Leukocyte Esterase Negative Urine RBC 0-5 SEEN Urine WBC 0 SEEN Ur Squamous Epith Cells 0-5 SEEN Urine Bacteria 0 SEEN Urine Mucus 0 SEEN Radiography Diagnostic Testing: Clinical Impression(s) from Imaging Studies Abdomen/Pelvis CT 07/12/22 13:38 IMPRESSION: Fatty infiltration of the liver. Status post cholecystectomy. Sigmoid diverticulosis. Electronically Signed: Nic Kelsey MD at 14:11 EDT , Discharge Plan Triage Chief Complaint: Abd Pain ED Provider: Edmundo Monae Dx/Rx/DC Orders Clinical Impression: Epigastric pain, Nausea and vomiting, Tobacco user Instructions: ED Abdominal Pain Unkn Cause Fem Prescriptions: New hydrocodone-acetaminophen [hydrocodone-acetaminophen] 5-325 mg tablet 1 tab PO Q6H PRN PRN (Reason: Pain) 3 Days Qty: 10 0RF ondansetron [ondansetron] 4 mg tablet,disintegrating 4 mg PO Q8H PRN PRN (Reason: Nausea) Qty: 10 0RF Continued pantoprazole 40 MG tablet 40 mg PO DAILY Qty: 30 0RF No Action aspirin 325 MG tablet 325 mg PO QHS Label Comments: thinner clopidogrel 75 MG tablet 75 mg PO QHS Label Comments: thinner metoprolol tartrate 50 MG tablet 50 mg PO BID Label Comments: blood pressure hydrochlorothiazide 12.5 MG capsule 12.5 mg PO DAILY Label Comments: blood pressure lisinopril [Zestril] 40 MG tablet 40 mg PO BID Label Comments: blood pressure rosuvastatin 10 MG tablet 10 mg PO QHS Label Comments: cholesterol promethazine [Promethegan] 25 MG suppository 25 mg RECTAL Q4H PRN PRN (Reason: Vomiting) Qty: 14 0RF buspirone 5 MG tablet 10 mg PO TID dicyclomine 10 MG capsule 20 mg PO ACHS Qty: 10 0RF ondansetron [ondansetron] 4 MG tablet 4 mg PO Q8H PRN PRN (Reason: Nausea) Qty: 10 0RF Primary Care Provider: Rodney Griffin NP Referrals: Rodney Griffin NP, FISH SKINNING MACHINE FEEDER-C [Primary Care Provider] - 5-7 Days Disposition Disposition: Home, Self Care
[2022-07-12] MEDS: 0.9% Normal Saline 1,000 ML 1000 ML IV (11:46)
[2022-07-12] MEDS: Ondansetron 4 MG/2 ML Vial IV ×2 (11:46→14:06)
[2022-07-12] MEDS: Morphine 4 MG/ML Syringe IV ×2 (11:46→14:14)
[2022-07-12 11:47] LABS: Absolute Neutrophil Count 7.4 X10^3/uL (2.0-7.7); Basophil# 0.05 X10^3/uL; Basophil% 0.5 % (0-1); Eosinophil# 0.07 X10^3/uL; Eosinophils% 0.7 % (0-5); Hematocrit 47.7 % (37-47); Hemoglobin 15.9 g/dL (12.0-15.0); Lymphocyte % 11.8 % (19-41); Mean Corp Hgb Conc 33.3 g/dL (32-36); Mean Corpuscular Hgb 29.8 pg (27.0-32.0); Mean Corpuscular Volume 89.3 fL (81-99); Mean Platelet Vol. 9.4 fl (6.2-12.0); Monocyte# 0.72 X10^3/uL; Monocyte% 7.7 % (0-10); NRBC Flagged by Analyzer 0 % (0-5); Neutrophil # 7.37 X10^3/uL (2.7-7.7); Neutrophil % 78.8 % (47-70); Platelet Count 322 K/mm3 (150-450); RBC Distribution Width SD 42.6 fl (35.1-43.9); Red Blood Count 5.34 M/mm3 (4.2-5.4); White Blood Count 9.4 K/mm3 (4.4-11.0)
[2022-07-12 12:04] LABS: ALB/GLOB Ratio 1.2 RATIO (0.9-2.4); AST(SGOT) 21 U/L (15-37); Alanine Aminotransfer ALT/SGPT 31 U/L (13-56); Albumin, Serum 4.4 g/dL (3.2-5.0); Alkaline Phosphatase 95 U/L (45-117); Anion Gap 9 (5-15); BUN 13 mg/dL (7-18); BUN/Creat Ratio 12.6 RATIO (10-20); Calcium,Total 10.1 mg/dL (8.5-10.1); Chloride 105 mmol/L (98-107); Creatinine, Serum 1.03 mg/dL (0.55-1.02); EST Glomerular Filtration Rate 58 mL/min (>60); Est Glom Filt Rate - Afr Amer 70 mL/min (>60); Estimated Creatinine Clearance 45.94 ml/min; Globulin 3.7 g/dL (2.2-4.2); Glucose 170 mg/dL (74-106); Lipase 110 U/L (73-393); Potassium 3.7 mmol/L (3.5-5.1); Protein, Total 8.1 g/dL (6.4-8.2); Sodium Level 141 mmol/L (136-145)
[2022-07-12 13:01] VITALS: BP 142/67; PULSE 84; RESP 16; O2SAT 97
--- NOTE | 2022-07-12 13:38 | CT_ITS ---
STUDY: CT ABDOMEN AND PELVIS WITH CONTRAST REASON FOR EXAM: Female, 62 years old. Abdominal pain -- IV PO Contrast. Epigastric pain. RADIATION DOSAGE (If Supplied By Facility): CTDIvol = ( 17.49 ) mGy, DLP = ( 769.12 ) mGycm TECHNIQUE: Transaxial images were obtained from the dome of the diaphragm to the symphysis pubis with oral contrast. ORAL GASTRO AND 100ML OF ISOVUE 370 was administered. Sagittal and coronal images were reconstructed. Individualized dose optimization techniques were used for this CT. COMPARISON: Comparison is made with prior study dated 04/21/2021. FINDINGS: The visualized lung bases are unremarkable. Coronary artery calcification. There is decreased attenuation of the liver consistent with steatosis. A subcentimeter cyst is seen in the lateral midportion of the right lobe of the liver. There are surgical clips in the gallbladder fossa consistent with a prior cholecystectomy. Normal spleen. Normal pancreas. Normal bilateral adrenal glands. Normal right kidney. Normal left kidney. There is a small hiatal hernia. Normal small intestine. There are multiple colonic diverticula consistent with diverticulosis. The appendix is visualized and appears normal. There is diffuse atherosclerotic calcification of the abdominal aorta and its major visceral branches, without a demonstrated aneurysm. Normal inferior vena cava. Normal retroperitoneum. Normal urinary bladder. Normal abdominal wall. There are mild degenerative changes of the visualized lumbar spine. CT/Abdomen/Pelvis WITH Contrast IMPRESSION: Fatty infiltration of the liver. Status post cholecystectomy. Sigmoid diverticulosis. Electronically Signed: Nic Kelsey MD at 14:11 EDT ,
[2022-07-12 14:23] LABS: Bacteria 0 SEEN /hpf (None Seen); Mucous, Urine 0 SEEN /hpf (<or=2+); White Blood Cells 0 SEEN /hpf (0-5)
[2022-07-12 14:24] LABS: Color, Urine Yellow (Yellow); Glucose, Dipstick Normal (Normal); Ketone-Dipstick 5 mg/dl (Negative); Leukocyte Esterase-Dipstick Negative /ul (Negative); Nitrite-Dipstick Negative (Negative); Occult Blood-Urine 10 /ul (Negative); Protein-Dipstick Negative (Negative); Urine Bilirubin Dipstick Negative (Negative); Urine Clarity Clear (Clear); Urine Urobilinogen Normal (Normal)
[2022-07-12 14:35] LABS: Red Blood Cells-Urine 0-5 SEEN /hpf (0-5); Squamous Epithelial Cells - UA 0-5 SEEN /hpf (5-10)
[2022-07-12 15:03] VITALS: BP 173/79; PULSE 72; RESP 16; O2SAT 94
[2022-07-12 15:46] LABS: Reflex Lactate? Y
== END 2022-07-12 15:58 | disposition home or self-care (01) ==
PROVIDERS: Emergency Provider Emergency Medicine; PCP Nurse Practitioner Family; Visit Provider Emergency Medicine
DX: R10.13 Epigastric pain (principal); R11.2 Nausea with vomiting, unspecified; K57.30 Diverticulosis of large intestine without perforation or abscess without bleeding; F17.210 Nicotine dependence, cigarettes, uncomplicated; K76.0 Fatty (change of) liver, not elsewhere classified; I10 Essential (primary) hypertension; Z79.82 Long term (current) use of aspirin; Z79.899 Other long term (current) drug therapy
CPT/HCPCS: 74177; 80053; 81001; 83605; 83690; 85025; 96361; 96374; 96375; 96376; 99283; Q9967; A4216; J2405

== ENCOUNTER 2022-07-14 18:03 | Emergency (ER) | payer BC, SELFPAY ==
[2022-07-14 18:05] VITALS: BP 128/62; PULSE 88; RESP 16; TEMP 36.6; O2SAT 98; BMI 30.3
--- NOTE | 2022-07-14 18:34 | EDS_ITS ---
HPI HPI - GI History of Present Illness Chief Complaint: Abd Pain Informant: patient Abdominal Pain/Flank Pain Onset: Days Context: Gradual Onset Timing: Intermittent Quality: Cramping Location: Diffuse Current Severity: Mild Maximum Severity: Mild Nausea/Vomiting/Emesis GI Symptom: Positive for Nausea and Vomiting Onset: Days Quality: Positive for Nonbilious Severity: Moderate Associated Symptoms Associated Symptoms: Negative for Dysuria, Frequency, Hematuria or Urgency Narrative Narrative: 62-year-old female history of CAD with a stent. Prior cholecystectomy. States was seen in the emergency department after having nausea and vomiting for about a week. Initially had some diarrhea that is since resolved. Said she has oral Zofran at home has been unable to keep it down and has had decreased urine output due to she feels she may be dehydrated. Diffuse crampiness. She had a work-up done on labs are negative CAT scan was unremarkable. States she had this several years ago they attributed to either gastroparesis or a virus. Prior similar symptoms: Yes Recent Illness/Hospitalization: No PFSH PFSH Medical History Hypertension Home Medications aspirin 325 mg tablet 325 mg PO QHS 06/06/16 [History Last Taken 06/04/16] clopidogrel 75 mg tablet 75 mg PO QHS 06/06/16 [History Last Taken 06/04/16] hydrochlorothiazide 12.5 mg capsule 12.5 mg PO DAILY 06/06/16 [History Last Taken 06/06/16] lisinopril 40 mg tablet (Zestril) 40 mg PO BID 06/06/16 [History Last Taken 06/06/16] metoprolol tartrate 50 mg tablet 50 mg PO BID 06/06/16 [History Last Taken 06/06/16] rosuvastatin 10 mg tablet 10 mg PO QHS 06/06/16 [History Last Taken 06/04/16] promethazine 25 mg rectal suppository (Promethegan) 25 mg RECTAL Q4H PRN PRN Vomiting ##14 08/20/16 [Rx Last Taken Unknown] buspirone 5 mg tablet 10 mg PO TID 09/29/17 [History Last Taken Unknown] dicyclomine 10 mg capsule 20 mg PO ACHS #10 caps 09/29/17 [Rx Last Taken Unknown] ondansetron 4 mg disintegrating tablet 4 mg PO Q8H PRN PRN Nausea #10 tabs 04/21/21 [Rx Last Taken Unknown] hydrocodone-acetaminophen 5-325mg 5mg-325mg 1 tab PO Q6H PRN PRN Pain 3 days #10 TABLETS 07/12/22 [Rx Last Taken Unknown] ondansetron 4 mg disintegrating tablet 4 mg PO Q8H PRN PRN Nausea #10 tabs 07/12/22 [Rx Last Taken Unknown] pantoprazole 40 mg tablet,delayed release 40 mg PO DAILY #30 tabs 07/12/22 [Rx Last Taken Unknown] Allergy/AdvReac Type Severity Reaction Status Date / Time No Known Allergies Allergy Verified 07/12/22 10:46 Surgical History History of appendectomy History of cholecystectomy Social History Smoking Status: Current some day smoker tobacco type: cigarettes ROS ROS ED ROS Narrative Nausea and vomiting. Review of Systems ROS Unobtainable: Denies due to encephalopathy Constitutional Constitutional ED: Denies chills or fever(s) ENT ENT ED: Denies ear pain Cardiovascular Cardiovascular: Denies chest pain Respiratory/Chest Respiratory/Chest: Denies cough or dyspnea Gastrointestinal Gastrointestinal: Reports abdominal pain, diarrhea, nausea and vomiting; Denies constipation or melena Genitourinary Genitourinary ED: Denies dysuria or hematuria Musculoskeletal Musculoskeletal: Denies arthralgias Integumentary Denies abscess Neurologic Neurologic: Denies headache(s) Psychiatric Psychiatric: Denies anxiety Endocrine Endocrinology: Denies polydipsia Hematologic/Lymphatic Hematologic/Lymphatic: Denies easy bleeding Allergic/Immunologic Allergic/Immunologic ED: Denies mouth swelling EXAM Physical Exam Narrative Exam Narrative: 8-year-old female no acute distress vital signs stable afebrile. H EENT exam unremarkable. Neck nontender. Lungs are clear. Heart regular rhythm rate about 90 no murmur. Abdomen soft nondistended normal bowel sounds no peritoneal signs. No obstruction. No hernia or mass. Right upper and right lower quadrants are unremarkable. Soft normal bowel sounds. Moving all 4 extremities. Back nontender. Neurologic exam awake alert no focal deficits. Const Vital Signs: 07/14/22 18:05 Temperature 97.8 F Temperature Source Temporal Pulse Rate 88 Respiratory Rate 16 Blood Pressure 128/62 H Blood Pressure Mean 84 Pulse Ox 98 Oxygen Delivery Method Room Air Positive well nourished and well developed; Negative for cachectic, contractures or unkempt General Appearance ED: well developed and NAD; Negative for unkempt, cachectic, contractures or pallor Nutritional Appearance: Negative for cachectic HEENT Reports moist mucous membranes normocephalic and atraumatic; Negative for trauma or tenderness Eyes PERRL and EOMs intact bilaterally General Eye ED: Negative for pale conjunctiva or scleral icterus Neck no lymphadenopathy, supple and no JVD General: Negative for tenderness Lymph Lymphatic: Negative for other Resp normal respiratory effort and clear to auscultation bilaterally Effort and Inspection: Negative for respiratory distress or retractions Auscultation: Negative for rales, rhonchi or wheezes Cardio regular rate, regular rhythm, S1 normal heart sound, S2 normal heart sound and no murmurs Rate: Negative for bradycardia Rhythm: Negative for abnormal rhythm GI non-tender, non-distended and no masses Inspection: Negative for abdominal distention Auscultation: normoactive bowel sounds Palpation: soft; Negative for tender, guarding, rigid, hernia, mass or pulsatile mass Back/Spine no CVA tenderness General Back: Negative for CVA tenderness Cervical Spine: Negative for cervical spine tenderness Thoracic Spine / Upper Back: Negative for thoracic spinal tenderness Lumbar Spine / Lower Back: Negative for lumbar spinal tenderness Coccyx: Negative for other Extremity full ROM General Extremety ED: Negative for edema or tenderness General Extremity: Negative for edema Neuro CN's II-XII intact bilaterally, moves all extremities and no sensory deficits noted Sensorium / Orientation: alert, oriented to person, oriented to place and oriented to time; Negative for orientation impaired, confused, lethargic or stuporous Motor Exam: strength 5/5 throughout Psych mental status grossly normal and thought process normal Appearance: Negative for unkempt Attitude: No agitated Mood & Affect: Negative for depressed or anxious Skin no wounds General Skin Exam: Negative for jaundice or pallor Lesions: no lesions Rashes: no rashes Trauma: Negative for abrasion Nails: Negative for discolored MDM MDM MDM Narrative Medical decision making narrative: 62-year-old with nausea vomiting. Abdomen is benign. She has had several CAT scans one done several days ago and over the last several months all of which have been unremarkable. She will be treated with IV fluids and IV Zofran. Labs are being obtained. The labs she had done the other day were unremarkable. Repeat exam at 8:08 PM patient doing well. Feels better after morphine and Zofran. Abdomen benign. She will be discharged home. She has appointment to see a local surgeon Dr. Sony Cedeño on Saturday. She has nausea medication at home. Lab Data Attestation: I reviewed the patient's lab results. Lab results narrative: CBC unremarkable white count 10.2 H&H of 15 and 45. Electrolytes unremarkable potassium of 3.3 gap of 13 normal BUN and creatinine. Glucose 165. Normal li xavier enzymes. Normal lipase. Labs: Laboratory Results - last 24 hr 07/14/22 07/14/22 18:25 18:25 WBC 10.2 RBC 5.25 Hgb 15.8 H Hct 45.8 MCV 87.2 MCH 30.1 MCHC 34.5 RDW Std Deviation 40.8 RDW Coeff of Ramos 12.8 Plt Count 334 MPV 9.9 Immature Gran % (Auto) 0.500 Neut % (Auto) 78.8 H Lymph % (Auto) 10.9 L [place] % (Auto) 8.8 Eos % (Auto) 0.3 Baso % (Auto) 0.7 Absolute Neuts (auto) 8.0 H Absolute Lymphs (auto) 1.11 Nucleated RBC % 0 Sodium 140 Potassium 3.3 L Chloride 103 Carbon Dioxide 24.0 Anion Gap 13 BUN 15 Creatinine 0.99 Estim Creat Clear Calc 47.79 Est GFR (MDRD) Af Amer 74 Est GFR (MDRD) Non-Af 61 BUN/Creatinine Ratio 15.2 Glucose 165 H Calcium 10.6 H Total Bilirubin 0.90 AST 23 ALT 31 Alkaline Phosphatase 90 Total Protein 8.2 Albumin 4.6 Globulin 3.6 Albumin/Globulin Ratio 1.3 Lipase 108 Discharge Plan Triage Chief Complaint: Abd Pain ED Provider: Aleksandar Rain Dx/Rx/DC Orders Clinical Impression: Abdominal pain, Nausea and vomiting, Gastritis Instructions: Abdominal Pain Prescriptions: No Action aspirin 325 MG tablet 325 mg PO QHS Label Comments: thinner clopidogrel 75 MG tablet 75 mg PO QHS Label Comments: thinner metoprolol tartrate 50 MG tablet 50 mg PO BID Label Comments: blood pressure hydrochlorothiazide 12.5 MG capsule 12.5 mg PO DAILY Label Comments: blood pressure lisinopril [Zestril] 40 MG tablet 40 mg PO BID Label Comments: blood pressure rosuvastatin 10 MG tablet 10 mg PO QHS Label Comments: cholesterol promethazine [Promethegan] 25 MG suppository 25 mg RECTAL Q4H PRN PRN (Reason: Vomiting) Qty: 14 0RF buspirone 5 MG tablet 10 mg PO TID dicyclomine 10 MG capsule 20 mg PO ACHS Qty: 10 0RF ondansetron [ondansetron] 4 MG tablet 4 mg PO Q8H PRN PRN (Reason: Nausea) Qty: 10 0RF hydrocodone-acetaminophen [hydrocodone-acetaminophen] 5-325 mg tablet 1 tab PO Q6H PRN PRN (Reason: Pain) 3 Days Qty: 10 0RF ondansetron [ondansetron] 4 mg tablet,disintegrating 4 mg PO Q8H PRN PRN (Reason: Nausea) Qty: 10 0RF pantoprazole 40 MG tablet 40 mg PO DAILY Qty: 30 0RF Primary Care Provider: Rondey Griffin [employer] GRINDER OPERATOR Referrals: Sony Cedeño MD [Med Staff - Active Staff] - Keep Casey appointment Rodney Griffin NP, [employer] RO[employer] GRINDER OPERATOR-C [Primary Care Provider] - Activity Restrictions/Additional Instructions: Continue your nausea medication as needed. Continue your reflux medication as prescribed. Follow-up with your appointment with Dr. Sony Cedeño as scheduled for July 17. Your labs today were all normal. Disposition Disposition: Home, Self Care
[2022-07-14] MEDS: 0.9% Normal Saline 1,000 ML 1000 ML IV (18:40)
[2022-07-14] MEDS: Ondansetron 4 MG/2 ML Vial IV ×2 (18:41→19:37)
[2022-07-14] MEDS: Morphine 4 MG/ML Syringe IV (18:42)
[2022-07-14 18:51] LABS: Absolute Lymphocyte Count 1.11 X10^3/uL (0.83-4.51); Basophil# 0.07 X10^3/uL; Basophil% 0.7 % (0-1); Eosinophil# 0.03 X10^3/uL; Eosinophils% 0.3 % (0-5); Hematocrit 45.8 % (37-47); Hemoglobin 15.8 g/dL (12.0-15.0); Lymphocyte # 1.11 X10^3/ul (0.83-4.51); Lymphocyte % 10.9 % (19-41); Mean Corp Hgb Conc 34.5 g/dL (32-36); Mean Corpuscular Hgb 30.1 pg (27.0-32.0); Mean Corpuscular Volume 87.2 fL (81-99); Mean Platelet Vol. 9.9 fl (6.2-12.0); Monocyte% 8.8 % (0-10); NRBC Flagged by Analyzer 0 % (0-5); Neutrophil # 8.04 X10^3/uL (2.7-7.7); Neutrophil % 78.8 % (47-70); Platelet Count 334 K/mm3 (150-450); RBC Distribution Width CV 12.8 % (11.6-14.6); RBC Distribution Width SD 40.8 fl (35.1-43.9); Red Blood Count 5.25 M/mm3 (4.2-5.4); White Blood Count 10.2 K/mm3 (4.4-11.0)
[2022-07-14 19:14] LABS: ALB/GLOB Ratio 1.3 RATIO (0.9-2.4); AST(SGOT) 23 U/L (15-37); Alanine Aminotransfer ALT/SGPT 31 U/L (13-56); Albumin, Serum 4.6 g/dL (3.2-5.0); Alkaline Phosphatase 90 U/L (45-117); Anion Gap 13 (5-15); BUN 15 mg/dL (7-18); BUN/Creat Ratio 15.2 RATIO (10-20); Calcium,Total 10.6 mg/dL (8.5-10.1); Chloride 103 mmol/L (98-107); Creatinine, Serum 0.99 mg/dL (0.55-1.02); EST Glomerular Filtration Rate 61 mL/min (>60); Est Glom Filt Rate - Afr Amer 74 mL/min (>60); Estimated Creatinine Clearance 47.79 ml/min; Globulin 3.6 g/dL (2.2-4.2); Glucose 165 mg/dL (74-106); Lipase 108 U/L (73-393); Potassium 3.3 mmol/L (3.5-5.1); Protein, Total 8.2 g/dL (6.4-8.2); Sodium Level 140 mmol/L (136-145)
== END 2022-07-14 20:24 | disposition home or self-care (01) ==
PROVIDERS: Emergency Provider Emergency Medicine; PCP Nurse Practitioner Family; Visit Provider Emergency Medicine
DX: K29.70 Gastritis, unspecified, without bleeding (principal); I10 Essential (primary) hypertension; F17.210 Nicotine dependence, cigarettes, uncomplicated; I25.10 Atherosclerotic heart disease of native coronary artery without angina pectoris; Z95.5 Presence of coronary angioplasty implant and graft; Z90.49 Acquired absence of other specified parts of digestive tract; Z79.82 Long term (current) use of aspirin; Z79.899 Other long term (current) drug therapy
CPT/HCPCS: 80053; 83690; 85025; 96361; 96374; 96375; 96376; 99282; J7030; A4216; J2405

== ENCOUNTER → 2022-10-20 | Outpatient (CLI) | payer BC, SELFPAY ==
--- NOTE | 2022-10-20 09:25 | RAD_ITS ---
STUDY: X-RAY - LUMBAR SPINE REASON FOR EXAM: Female, 62 years old. LOW BACK PAIN TECHNIQUE: 4 view(s) of the lumbar spine were obtained. COMPARISON: None FINDINGS: Normal lumbar lordosis. There is no substantial scoliosis. There is a normal alignment of the vertebrae. Degenerative changes of the vertebral bodies with mild spurring of the endplates. Normal disc space heights. The soft tissue structures are unremarkable. Calcified aorta. RAD/L/S Spine Min 4 Views IMPRESSION: Degenerative changes of the lumbar spine. Electronically Signed: Reji Stewart DO at 23:40 EST Reading Location ID and State: [facility] / [place] Tel [phone], Service support ,
--- NOTE | 2022-10-20 09:25 | RAD_ITS ---
INDICATION: R HIP PAIN EXAMINATION/TECHNIQUE: X-RAY - RIGHT XR Hip Unilateral with Pelvis when performed;3 Views COMPARISON: None. FINDINGS: SOFT TISSUES: No soft tissue swelling or gas. No radiopaque foreign body. BONES/JOINTS: No acute fracture or subluxation.. Normal alignment. Preservation of the joint space.. No sclerotic or destructive changes observed. RAD/HIP, UNI W/ Pelvis 2-3 Views IMPRESSION: Negative. Electronically Signed: Reji Stewart DO at 23:22 EST ,
== END | disposition home or self-care (01) ==
LOC: RAD 09:23
PROVIDERS: PCP Nurse Practitioner Family; Referring Provider Nurse Practitioner Family; Visit Provider Nurse Practitioner Family
DX: M25.551 Pain in right hip (principal); G89.29 Other chronic pain; M54.41 Lumbago with sciatica, right side
CPT/HCPCS: 72110; 73502

== ENCOUNTER 2022-11-28 16:30 | Outpatient (RCR) | payer BC, SELFPAY ==
--- NOTE | 2022-11-14 19:04 | HP.PTEVAL_ITS ---
Patient's Visit Information VISHAL KIDD is a 62 year old F referred to Physical Therapy by PHONG Whitlock with a diagnosis of Chronic LB R sciatica, DDD, R hip pain. Date of Evaluation: 11/14/22 Physical Therapist: THOMAS Mendiola - Visit Plan Frequency: 2x /Week Duration: 4 Weeks Plan: 1-2X/ week for 4 weeks for HEP including stretching of the R hip and LE, core stability, with HEP. HEP: seated 4 piriformis and R knee to L shoulder stretch, LTR, Bridges - Subjective They did an x-ray and it shows that she has spurs on lower lumbar spine. wants her to have an MRI but therapy has to be done first. Pt reports that has a hard time transition from sitting to standing. She point s to upper R buttock pain and She has decreased feeling when she shaves her legs down the front. Bending over increases her back pain on the R side. She sleeps with a pillow under her buttocks. She props her up with pillows to sleep. She feels better to stand. She can only sit for no more than 1/2 hour. She has a standing desk now at work and she watches TV standing at home. She has a lot of pain when she drives. Stairs: she is able to do them but recip. She does not feel like her R leg will give out on her. She has pinches in her spine that makes her feel like her leg will give out at time when it pinches. She is sleeping at night but all propped up. This started 3 months ago and does not remember s specific thing that started up the pain. - Pain R hip/ tailbone pain Pain Intensity (Out of 10): 5 Pain Intensity Range: 9 Comment: 10 with sitting - Objective Gait: Pt walks with short stride. Pt is able to walk on heel and toes without pain. Trunk AROM: flex 50%, Ext 50%, SB R 50%, SB L 75%, Rot R (increase pain 75%) and L ROT 75%. LE MMT: R hip flex 11.9 and L hip flex 10.9. R knee ext 19.7 and L 25.6#. R knee flex 8.6# and L 9.5#. SLUMP test - B. SLR test B were negative for pain. Increase B piriformis tightness and B IT band tightness (pt felt the spot on her R hip with stretching). LTR to the L increase R hip/buttock pain but eased up the more that she did). patella DTR: 2+/3 B. After stretching B Piriformis, IT band and doing bridges... pt was able to transition from sitting to standing with the catch that she normally felt. - Balance/Special Test Scores Oswestry Low Back Score: 22 - Goals Goal 1:: I HEP Goal Time Frame: 6-8 Weeks Goal 2:: Be able to transition from sitting to standing all the time without having the sharp R buttock pain Goal Time Frame: 6-8 Weeks Goal 3:: Be able to sit during a TV show without having pain Goal Time Frame: 6-8 Weeks Goal 4:: Increase flexibility of B Pirformis and IT BAnd Goal Time Frame: 6-8 Weeks - Rehabilitation Potential Rehabilitation Potential: Good - Anticipated Interventions Patient/Client Instruction: Educate patient on: Condition, Plan of Care For the Purpose of:: To decrease pain, To increase ROM, To improve nutrient delivery to tissue, To increase oxygenation perfusion, To improve muscle performance and motor function, To improve ability to perform ADL's, To increase tolerance to activity/condition/position, To improve performance and independence with ADL's, To decrease level of supervision to perform tasks, To improve ability of physical actions for home/community/work/leisure, To improve gait and locomotor functions, To improve health of tissue, To decrease soft tissue restriction, To increase flexibility/ROM, To improve endurance, To improve balance, To improve safety with gait Therapeutic Exercise to Include: Strength training, Endurance training, Body mechanics, Postural training, Flexibilty training, Gait and locomotor training, Neuromotor development, Active ROM, Dynamic Lumbar Stabilization For the Purpose of:: To decrease pain, To increase ROM, To improve nutrient delivery to tissue, To increase oxygenation perfusion, To improve muscle pe rformance and motor function, To improve ability to perform ADL's, To increase tolerance to activity/condition/position, To improve performance and independence with ADL's, To decrease level of supervision to perform tasks, To improve ability of physical actions for home/community/work/leisure, To improve gait and locomotor functions, To improve health of tissue, To decrease soft tissue restriction, To increase flexibility/ROM Functional Training to Include: Gait training For the Purpose of:: To improve gait and locomotor functions, To improve safety with gait Manual Therapy Techniques to Include: Mobilization, Passive ROM, Soft tissue mobilization For the Purpose of:: To decrease pain, To increase ROM, To improve nutrient delivery to tissue, To improve muscle performance and motor function, To increase tolerance to activity/condition/position, To improve performance and independence with ADL's, To decrease level of supervision to perform tasks, To improve gait and locomotor functions, To improve health of tissue, To decrease soft tissue restriction, To increase flexibility/ROM Thank you for the opportunity to evaluate your patient. For Medicare and Medicare HMO plans, please review the plan of care and approve it. It will need to be FAXED BACK to us at [phone] for Medicare purposes. For Medicare only, by signing this I certify the plan of care. Please let me know if there are questions or concerns regarding this plan of care. Physician S ignature: Date:
--- NOTE | 2023-04-17 15:32 | HP.PT.NRP ---
Patient Information Patient Information: VISHAL KIDD was seen in my office for initial evaluation on 11/14/22. The following Plan of Care was established for this patient: POC Established Initial Frequency: 2x /Week Initial Duration: 4 Weeks Anticipated Interventions Patient/Client Instruction: Educate patient on: Condition and Plan of Care For the Purpose of:: To decrease pain, To increase ROM, To improve nutrient delivery to tissue, To increase oxygenation perfusion, To improve muscle performance and motor function, To improve ability to perform ADL's, To increase tolerance to activity/condition/position, To improve performance and independence with ADL's, To decrease level of supervision to perform tasks, To improve ability of physical actions for home/community/work/leisure, To improve gait and locomotor functions, To improve health of tissue, To decrease soft tissue restriction, To increase flexibility/ROM, To improve endurance, To improve balance and To improve safety with gait Therapeutic Exercise to Include: Strength training, Endurance training, Body mechanics, Postural training, Flexibilty training, Gait and locomotor training, Neuromotor development, Active ROM and Dynamic Lumbar Stabilization For the Purpose of:: To decrease pain, To increase ROM, To improve nutrient delivery to tissue, To increase oxygenation perfusion, To improve muscle performance and motor function, To improve ability to perform ADL's, To increase tolerance to activity/condition/position, To improve performance and independence with ADL's, To decrease level of supervision to perform tasks, To improve ability of physical actions for home/community/work/leisure, To improve gait and locomotor functions, To improve health of tissue, To decrease soft tissue restriction and To increase flexibility/ROM Functional Training to Include: Gait training For the Purpose of:: To improve gait and locomotor functions and To improve safety with gait Manual Therapy Techniques to Include: Mobilization, Passive ROM and Soft tissue mobilization For the Purpose of:: To decrease pain, To increase ROM, To improve nutrient delivery to tissue, To improve muscle performance and motor function, To increase tolerance to activity/condition/position, To improve performance and independence with ADL's, To decrease level of supervision to perform tasks, To improve gait and locomotor functions, To improve health of tissue, To decrease soft tissue restriction and To increase flexibility/ROM Last Seen Last Seen: This patient was last seen in our office 11/28/22. Pertinent comments regarding their Physical therapy will appear below: Pt cx her last appointment due to illness and did not reschedule. Will DC at this time At this point I will be discontinuing this patient from physical therapy. I would be happy to see this patient again in the future if found appropriate by the physician. Thank you! Melisa Sanchez, THOMAS Balance/Gait/Functional tests Balance/Special Test Scores Oswestry Low Back Score: 22
== END 2022-11-28 19:00 | disposition home or self-care (01) ==
LOC: PT 16:30
PROVIDERS: PCP Nurse Practitioner Family; Referring Provider Nurse Practitioner Family; Visit Provider Nurse Practitioner Family
DX: M54.41 Lumbago with sciatica, right side (principal); M51.36 Other intervertebral disc degeneration, lumbar region; M25.551 Pain in right hip; G89.29 Other chronic pain
CPT/HCPCS: 97110; 97161

== ENCOUNTER → 2023-02-08 | Outpatient (CLI) | payer BC, SELFPAY ==
--- NOTE | 2023-02-08 15:07 | RAD_ITS ---
STUDY: XR Chest 2 Views 02/08/2023 3:09 PM REASON FOR EXAM: Female, 62 years old. CHEST PAIN WHEEZING COMPARISON: 05/11/2020 TECHNIQUE: XR Chest 2 Views FINDINGS: There is no demonstrated pleural abnormality. Normal heart size. Normal mediastinum. Normal yonatan. Prominent appearing increased interstitial lung markings. Normal visualized pulmonary arteries. There is atherosclerotic calcification of the aortic arch with tortuosity. There are diffuse degenerative changes of the visualized thoracic spine. There is degenerative osteoarthritis of the bilateral shoulders. There is no demonstrated abnormality of the visualized soft tissue structures of the upper abdomen. RAD/Chest PA and Lateral IMPRESSION: There are no acute findings. Electronically Signed: Fidel Mehta MD at 15:37 EDT ,
[2023-02-08 15:39] LABS: Hemoglobin 15.9 g/dL (12.0-15.0); Mean Corp Hgb Conc 33.1 g/dL (32-36); Mean Corpuscular Hgb 30.3 pg (27.0-32.0); Mean Corpuscular Volume 91.4 fL (81-99); Mean Platelet Vol. 9.4 fl (6.2-12.0); Platelet Count 299 K/mm3 (150-450); RBC Distribution Width CV 13.5 % (11.6-14.6); RBC Distribution Width SD 45.6 fl (35.1-43.9); Red Blood Count 5.25 M/mm3 (4.2-5.4); White Blood Count 6.4 K/mm3 (4.4-11.0)
[2023-02-08 16:32] LABS: ALB/GLOB Ratio 1.1 RATIO (0.9-2.4); AST(SGOT) 17 U/L (15-37); Alanine Aminotransfer ALT/SGPT 29 U/L (13-56); Albumin, Serum 3.9 g/dL (3.2-5.0); Alkaline Phosphatase 82 U/L (45-117); Anion Gap 4 (5-15); BUN 20 mg/dL (7-18); BUN/Creat Ratio 26.5 RATIO (10-20); CRP < 2.90 mg/L (0.0-3.0); Calcium,Total 9.6 mg/dL (8.5-10.1); Chloride 100 mmol/L (98-107); Creatinine, Serum 0.76 mg/dL (0.55-1.02); EST Glomerular Filtration Rate 83 mL/min (>60); Est Glom Filt Rate - Afr Amer 100 mL/min (>60); Globulin 3.4 g/dL (2.2-4.2); Glucose 105 mg/dL (74-106); Potassium 3.8 mmol/L (3.5-5.1); Protein, Total 7.3 g/dL (6.4-8.2); Sodium Level 134 mmol/L (136-145); Troponin-I HS 32 pg/mL (3.0-54.0)
== END | disposition home or self-care (01) ==
LOC: LAB 15:02
PROVIDERS: PCP Nurse Practitioner Family; Referring Provider Nurse Practitioner Family; Visit Provider Nurse Practitioner Family
DX: K92.1 Melena (principal); R06.02 Shortness of breath; R10.13 Epigastric pain; I25.10 Atherosclerotic heart disease of native coronary artery without angina pectoris; I44.1 Atrioventricular block, second degree; I51.7 Cardiomegaly
CPT/HCPCS: 36415; 71046; 80053; 84484; 85027; 86140

== ENCOUNTER → 2023-02-21 | Outpatient (CLI) | payer BC, SELFPAY ==
--- NOTE | 2023-02-21 13:02 | ECHOD_ITS ---
Reason For Study: CAD Procedure This was a 2D Doppler, Color Flow transthoracic echocardiogram. Myocardial strain analysis was performed in this exam to aid in the assessment of cardiac function. Exam performed in department. Left Ventricle Moderately dilated left ventricle. Severe global left ventricular systolic dysfunction. The estimated ejection fraction is 15 %. Stage 2 diastolic dysfunction. There is severe global hypokinesis of the left ventricle. Right Ventricle Normal RV size. Normal systolic function. Atria The left atrium is mildly enlarged. Normal right atrium. Mitral Valve Normal mitral valve. Mild (1+) eccentric mitral valve insufficiency. Tricuspid Valve Normal tricuspid valve. Aortic Valve Trisinus/trileaflet aortic valve. Mild focal aortic valve calcification. Mild (1+) aortic valve insufficiency. Pulmonic Valve Normal pulmonic valve. Great Vessels Normal aortic root. The pulmonary artery is normal size. Normal inferior vena cava. Pericardium/Pleural No pericardial effusion. MMode/2D Measurements & Calculations LVIDd: 6.8 cm IVSd: 1.3 cm Ao root diam: 3.9 cm LVIDs: 5.8 cm LVPWd: 1.4 cm LA dimension: 4.8 cm RVDd: 3.1 cm FS: 13.7 % LAV(MOD-bp): 84.2 ml LVAd ap4: 52.1 cm2 LVAd ap2: 50.4 cm2 LAV(MOD-bp) Indexed: 48.0 ml/m2 LVLd ap4: 9.2 cm LVLd ap2: 10.0 cm LAV(MOD-sp2): 75.6 ml EDV(MOD-sp4): 242.2 ml EDV(MOD-sp2): 212.8 ml LAV(MOD-sp4): 84.0 ml EDV(sp4-el): 249.5 ml EDV(sp2-el): 217.0 ml LVAs ap4: 42.3 cm2 LVAs ap2: 39.9 cm2 LVLs ap4: 8.3 cm LVLs ap2: 8.6 cm ESV(MOD-sp4): 184.5 ml ESV(MOD-sp2): 153.3 ml ESV(sp4-el): 183.2 ml ESV(sp2-el): 157.6 ml EF(MOD-sp4): 23.8 % EF(MOD-sp2): 28.0 % EF(sp4-el): 26.6 % SV(MOD-sp4): 57.7 ml SV(MOD-sp2): 59.5 ml SV(sp4-el): 66.3 ml LA A4 area: 24.0 cm2 RA A4 area: 14.9 cm2 Time Measurements MV dec time: 0.30 sec Doppler Measurements & Calculations MV E max fer: 97.8 cm/sec Lat Peak E' Fer: 3.7 cm/sec Med Peak E' Fer: 4.4 cm/sec MV A max fer: 67.8 cm/sec E/E' lat: 26.7 E/E' med: 22.1 MV E/A: 1.4 MV V2 max: 132.4 cm/sec MV P1/2t max fer: 132.4 cm/sec Ao V2 max: 162.8 cm/sec MV max P.0 mmHg MV P1/2t: 97.7 msec Ao max P.6 mmHg MV V2 mean: 64.8 cm/sec MV dec slope: 396.8 cm/sec2 Ao V2 mean: 106.9 cm/sec MV mean P.0 mmHg Ao mean P.4 mmHg MV V2 VTI: 35.1 cm MVA(P1/2t): 2.3 cm2 Ao V2 VTI: 34.2 cm AV (velocity ratio): 0.59 AI max fer: 423.6 cm/sec LV V1 max: 97.1 cm/sec MR max fer: 427.0 cm/sec AI max P.8 mmHg LV V1 max P.8 mmHg MR max P.9 mmHg AI dec slope: 242.5 cm/sec2 LV V1 mean P.1 mmHg MR mean fer: 296.1 cm/sec AI P1/2t: 511.7 msec LV V1 mean: 66.8 cm/sec MR mean P.0 mmHg LV V1 VTI: 20.3 cm MR VTI: 153.6 cm PA V2 max: 62.4 cm/sec ECHO/Echo Complete Interpretation Summary Moderately dilated left ventricle. Severe global left ventricular systolic dysfunction. The estimated ejection fraction is 15 %. There is severe global hypokinesis of the left ventricle. Stage 2 diastolic dysfunction. The global longitudinal strain is severely abnormal. The global longitudinal st rain = -9.6% (abnormal). Ordering Physician: Rodney Griffin Referring Physician: Rodney Griffin Performed By: Shahzad Jones RCS
== END | disposition home or self-care (01) ==
LOC: CVS 12:55
PROVIDERS: PCP Nurse Practitioner Family; Referring Provider Nurse Practitioner Family; Visit Provider Nurse Practitioner Family
DX: I10 Essential (primary) hypertension (principal); I44.1 Atrioventricular block, second degree; K44.9 Diaphragmatic hernia without obstruction or gangrene; I25.10 Atherosclerotic heart disease of native coronary artery without angina pectoris; R07.9 Chest pain, unspecified
CPT/HCPCS: 93225; 93226; 93306

== ENCOUNTER 2023-02-22 08:27 | Emergency (ER) | payer BC, SELFPAY ==
[2023-02-22 08:29] VITALS: BP 179/92; PULSE 78; RESP 18; TEMP 36.8; O2SAT 98; BMI 29.7
--- NOTE | 2023-02-22 08:30 | EKG12_ITS ---
Test Reason : CP Blood Pressure : / mmHG Vent. Rate : 076 BPM Atrial Rate : 076 BPM P-R Int : 150 ms QRS Dur : 092 ms QT Int : 420 ms P-R-T Axes : 068 056 249 degrees QTc Int : 472 ms Normal sinus rhythm Possible Left atrial enlargement Left ventricular hypertrophy with repolarization abnormality ( Sokolow-Porter , Romhilt-Duncan ) Abnormal ECG Confirmed by BABITA CLAY, CASSIE ([id number]), tape editor RENEE ROBERSON ([id number]) on 02/25/2023 11:32:55 AM Referred By: MANJU Confirmed By:CASSIE JC MD
[2023-02-22 09:04] LABS: Absolute Lymphocyte Count 1.46 X10^3/uL (0.83-4.51); Basophil# 0.15 X10^3/uL; Basophil% 1.5 % (0-1); Eosinophil# 0.46 X10^3/uL; Eosinophils% 4.7 % (0-5); Hematocrit 49.4 % (37-47); Hemoglobin 15.8 g/dL (12.0-15.0); Lymphocyte # 1.46 X10^3/ul (0.83-4.51); Lymphocyte % 14.9 % (19-41); Mean Corpuscular Hgb 29.8 pg (27.0-32.0); Mean Corpuscular Volume 93.2 fL (81-99); Mean Platelet Vol. 10.2 fl (6.2-12.0); Monocyte# 0.73 X10^3/uL; Monocyte% 7.4 % (0-10); NRBC Flagged by Analyzer 0 % (0-5); Neutrophil # 6.95 X10^3/uL (2.7-7.7); Platelet Count 331 K/mm3 (150-450); RBC Distribution Width CV 13.1 % (11.6-14.6); RBC Distribution Width SD 44.7 fl (35.1-43.9); White Blood Count 9.8 K/mm3 (4.4-11.0)
--- NOTE | 2023-02-22 09:11 | ED.VIS.GI ---
HPI HPI - GI History of Present Illness Chief Complaint: Nausea/Vomiting Informant: patient and EMS Abdominal Pain/Flank Pain Onset: Today Context: Gradual Onset Timing: Continuous Quality: Aching Location: Epigastric Current Severity: Mild Maximum Severity: Moderate Worsened by: - (Vomiting) Relieved by: Nothing Nausea/Vomiting/Emesis GI Symptom: Positive for Nausea and Vomiting Onset: Hours (3) Quality: Positive for Nonbilious; Negative for Blood streaks, Coffee ground or Hematemesis Severity: Severe Diarrhea/Melena/Hematochezia GI Symptom: Negative for Diarrhea, Melena or Hematochezia Narrative Narrative: Patient presents with intractable vomiting for the last 3 hours, EMS gave her Zofran which helped a little but she is still having dry heaving. She states this has been going on for 5 or 6 months. She has missed a lot of work because of days like this. She denies any chest pain, shortness of breath, fevers, chills, she states oftentimes she gets this every day, this morning it started around 5:30 AM spontaneously out of nowhere which is common. It was before she ate. She states she recently was diagnosed with heart problems. She had a stent remotely in one of her coronaries. 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 Reeves, with whom she plans on following up and someone called her yesterday about the test results and said she needed to get an appointment sooner than later. [facility] Medical History (Updated 02/22/23 @ 10:[address] Arcadio Koehler MD) Dyslipidemia Hiatal hernia HTN (hypertension) Nausea and vomiting Home Medications aspirin 325 mg tablet 325 mg PO QHS 06/06/16 [History Last Taken 06/04/16] clopidogrel 75 mg tablet 75 mg PO QHS 06/06/16 [History Last Taken 06/04/16] hydrochlorothiazide 12.5 mg capsule 12.5 mg PO DAILY 06/06/16 [History Last Taken 06/06/16] lisinopril 40 mg tablet (Zestril) 40 mg PO BID 06/06/16 [History Last Taken 06/06/16] metoprolol tartrate 50 mg tablet 50 mg PO BID 06/06/16 [History Last Taken 06/06/16] rosuvastatin 10 mg tablet 10 mg PO QHS 06/06/16 [History Last Taken 06/04/16] promethazine 25 mg rectal suppository (Promethegan) 25 mg RECTAL Q4H PRN PRN Vomiting ##14 08/20/16 [Rx Last Taken Unknown] buspirone 5 mg tablet 10 mg PO TID 09/29/17 [History Last Taken Unknown] dicyclomine 10 mg capsule 20 mg PO ACHS #10 caps 09/29/17 [Rx Last Taken Unknown] ondansetron 4 mg disintegrating tablet 4 mg PO Q8H PRN PRN Nausea #10 tabs 04/21/21 [Rx Last Taken Unknown] hydrocodone-acetaminophen 5-325mg 5mg-325mg 1 tab PO Q6H PRN PRN Pain 3 days #10 TABLETS 07/12/22 [Rx Last Taken Unknown] ondansetron 4 mg disintegrating tablet 4 mg PO Q8H PRN PRN Nausea #10 tabs 07/12/22 [Rx Last Taken Unknown] pantoprazole 40 mg tablet,delayed release 40 mg PO DAILY #30 tabs 07/12/22 [Rx Last Taken Unknown] Allergy/AdvReac Type Severity Reaction Status Date / Time No Known Allergies Allergy Verified 07/12/22 10:46 Surgical History History of appendectomy Hx of cholecystectomy Stented coronary artery Social History Smoking Status: Current some day smoker tobacco type: cigarettes ROS ROS ED Constitutional Constitutional ED: Denies chills or fever(s) Eyes Eyes: Denies change in vision or diplopia ENT ENT ED: Denies rhinorrhea or sore throat Cardiovascular Cardiovascular: Denies chest pain or palpitations Respiratory/Chest Respiratory/Chest: Denies cough or dyspnea Gastrointestinal Gastrointestinal: Reports abdominal pain, nausea and vomiting; Denies diarrhea, hematemesis, hematochezia or melena Genitourinary Genitourinary ED: Denies dysuria or hematuria Musculoskeletal Musculoskeletal: Denies back pain or neck pain Integumentary Denies abscess or rash Neurologic Neurologic: Denies headache(s), paresthesias or weakness Psychiatric Psychiatric: Denies anxiety or suicidal thoughts EXAM Physical Exam Const Vital Signs: 02/22/23 08:29 02/22/23 10:33 Temperature 98.2 F Temperature Source Temporal Pulse Rate 78 65 Respiratory Rate 18 18 Blood Pressure 179/92 H 144/83 H Blood Pressure Mean 121 103 Pulse Ox 98 96 Oxygen Delivery Method Room Air Room Air Positive well nourished and well developed General Appearance ED: well developed and NAD HEENT Reports moist mucous membranes normocephalic and atraumatic Eyes PERRL and EOMs intact bilaterally Neck full ROM and supple Resp normal respiratory effort and clear to auscultation bilaterally Cardio regular rate, regular rhythm and no murmurs GI non-tender and non-distended Auscultation: normoactive bowel sounds Palpation: soft Back/Spine no CVA tenderness General Back: other FROM Extremity normal to inspection General Extremety ED: Negative for edema, pulses abnormal or tenderness General Extremity: Negative for edema or pulses abnormal Neuro oriented x3, CN's II-XII intact bilaterally and no sensory deficits noted Sensorium / Orientation: awake and alert Motor Exam: strength 5/5 throughout Skin no rashes or lesions noted and no wounds MDM MDM MDM Narrative Medical decision making narrative: I performed some labs including liver enzymes and lipase, all of which were normal, while we gave her fluids and Reglan. This helped her nausea and she was able to tolerate some oral fluids but still had occasional vomiting. In reviewing the echocardiogram that she just had yesterday, it shows severe systolic dysfunction with an ejection fraction of 15%, these findings generally you are previously unknown to this patient. Additionally, daughter is in the room now who I also discussed with, she states the patient has had a hiatal hernia diagnosed in the past, and these issues with vomiting off-and-on have been an issue for her for over 2 years, just more frequently in the last several months. She is pending an appointment to see our cardiology practice so I discussed all of this with them. We reviewed her medication list, she is on appropriate medications right now, and not having symptoms of unstable angina or severe dyspnea, so he states based on this, the patient should follow-up shortly as an outpatient, since it is Saturday I encouraged the patient to call the office to make sure she gets an appointment scheduled for soon as possible. We discussed reasons to return. History & Record Review Additional record(s) reviewed:: Prior outpatient record Lab Data Attestation: I reviewed the patient's lab results. Labs: Laboratory Results - last 24 hr 02/22/23 02/22/23 08:13 08:13 WBC 9.8 RBC 5.30 Hgb 15.8 H Hct 49.4 H MCV 93.2 MCH 29.8 MCHC 32.0 RDW Std Deviation 44.7 H RDW Coeff of Ramos 13.1 Plt Count 331 MPV 10.2 Immature Gran % (Auto) 0.500 Neut % (Auto) 71.0 H Lymph % (Auto) 14.9 L Glasscock % (Auto) 7.4 Eos % (Auto) 4.7 Baso % (Auto) 1.5 H Absolute Neuts (auto) 7.0 Absolute Lymphs (auto) 1.46 Nucleated RBC % 0 Sodium 141 Potassium 4.0 Chloride 104 Carbon Dioxide 31.0 Anion Gap 6 BUN 13 Creatinine 0.87 Estim Creat Clear Calc 56.88 Est GFR (MDRD) Af Amer 85 Est GFR (MDRD) Non-Af 70 BUN/Creatinine Ratio 14.9 Glucose 138 H Calcium 10.1 Total Bilirubin 0.40 AST 20 ALT 27 Alkaline Phosphatase 80 Total Protein 7.7 Albumin 4.1 Globulin 3.6 Albumin/Globulin Ratio 1.1 Lipase 39 Rhythm Strip Rhythm Strip: Sinus Rhythm Rate: 75 Ectopy: None EKG Initial EKG: Attestation: I personally reviewed and interpreted this EKG as follows: Interpretation: Sinus Rhythm, Inverted T-Waves and S-T Depression Prior EKG tracings: available for review Prior: Unchanged Management Discussion w/another healthcare provider: [facility] [employer] [facility] (cardiology Dr. Awan) Discharge Plan Triage Chief Complaint: Nausea/Vomiting ED Provider: Arcadio Koehler Dx/Rx/DC Orders Clinical Impression: Vomiting, Dilated cardiomyopathy, Hiatal hernia Instructions: Cardiomyopathy Dc, ED Hiatal Hernia Prescriptions: No Action aspirin 325 MG tablet 325 mg PO QHS Label Comments: thinner clopidogrel 75 MG tablet 75 mg PO QHS Label Comments: thinner metoprolol tartrate 50 MG tablet 50 mg PO BID Label Comments: blood pressure hydrochlorothiazide 12.5 MG capsule 12.5 mg PO DAILY Label Comments: blood pressure lisinopril [Zestril] 40 MG tablet 40 mg PO BID Label Comments: blood pressure rosuvastatin 10 MG tablet 10 mg PO QHS Label Comments: cholesterol promethazine [Promethegan] 25 MG suppository 25 mg RECTAL Q4H PRN PRN (Reason: Vomiting) Qty: 14 0RF buspirone 5 MG tablet 10 mg PO TID dicyclomine 10 MG capsule 20 mg PO ACHS Qty: 10 0RF ondansetron [ondansetron] 4 MG tablet 4 mg PO Q8H PRN PRN (Reason: Nausea) Qty: 10 0RF hydrocodone-acetaminophen [hydrocodone-acetaminophen] 5-325 mg tablet 1 tab PO Q6H PRN PRN (Reason: Pain) 3 Days Qty: 10 0RF ondansetron [ondansetron] 4 mg tablet,disintegrating 4 mg PO Q8H PRN PRN (Reason: Nausea) Qty: 10 0RF pantoprazole 40 MG tablet 40 mg PO DAILY Qty: 30 0RF Primary Care Provider: Rodney Griffin NP Referrals: Jose Antonio Reeves MD [Med Staff - Active Staff] - As soon as possible Kt Romero DO [Med Staff - Active Staff] - As soon as possible Rodney Griffin NP, [employer] [Primary Care Provider] - Disposition Disposition: Home, Self Care
[2023-02-22 09:22] LABS: ALB/GLOB Ratio 1.1 RATIO (0.9-2.4); AST(SGOT) 20 U/L (15-37); Alanine Aminotransfer ALT/SGPT 27 U/L (13-56); Albumin, Serum 4.1 g/dL (3.2-5.0); Alkaline Phosphatase 80 U/L (45-117); Anion Gap 6 (5-15); BUN 13 mg/dL (7-18); BUN/Creat Ratio 14.9 RATIO (10-20); Calcium,Total 10.1 mg/dL (8.5-10.1); Chloride 104 mmol/L (98-107); Creatinine, Serum 0.87 mg/dL (0.55-1.02); EST Glomerular Filtration Rate 70 mL/min (>60); Est Glom Filt Rate - Afr Amer 85 mL/min (>60); Estimated Creatinine Clearance 56.88 ml/min; Globulin 3.6 g/dL (2.2-4.2); Glucose 138 mg/dL (74-106); Lipase 39 U/L (13-75); Protein, Total 7.7 g/dL (6.4-8.2); Sodium Level 141 mmol/L (136-145)
[2023-02-22] MEDS: Metoclopramide 10 MG/2 ML Vial 5 MG IV (09:37)
[2023-02-22 10:33] VITALS: BP 144/83; PULSE 65; RESP 18; O2SAT 96
[2023-02-22 11:14] VITALS: RESP 22
== END 2023-02-22 11:16 | disposition home or self-care (01) ==
PROVIDERS: Emergency Provider Emergency Medicine; PCP Nurse Practitioner Family; Visit Provider Emergency Medicine
DX: R11.2 Nausea with vomiting, unspecified (principal); I42.0 Dilated cardiomyopathy; K44.9 Diaphragmatic hernia without obstruction or gangrene; F17.210 Nicotine dependence, cigarettes, uncomplicated
CPT/HCPCS: 80053; 83690; 85025; 93005; 96361; 96374; 99285; J7030

== ENCOUNTER 2023-02-22 16:58 | Inpatient (IN) | payer BC, SELFPAY ==
[2023-02-22] VITALS (12 sets, daily range): BP systolic 101–189; BP diastolic 48–121; PULSE 72–113; RESP 14–35; TEMP 36.1–37.1; O2SAT 84–99; BMI 29.0; BMI 28.8
--- NOTE | 2023-02-22 17:06 | EX.ED.DYSGE1 ---
HPI History of Present Illness Chief Complaint: General Illness [facility] Medical History Dyslipidemia Hiatal hernia HTN (hypertension) Nausea and vomiting Home Medications aspirin 325 mg tablet 325 mg PO QHS 06/06/16 [History Last Taken 02/21/23] clopidogrel 75 mg tablet 75 mg PO QHS 06/06/16 [History Last Taken 02/21/23] metoprolol tartrate 50 mg tablet 75 mg PO BID 06/06/16 [History Last Taken 02/21/23] rosuvastatin 10 mg tablet 20 mg PO QHS 06/06/16 [History Last Taken 02/21/23] pantoprazole 40 mg tablet,delayed release 40 mg PO DAILY #30 tabs 07/12/22 [Rx Last Taken 02/21/23] buspirone 10 mg tablet 10 mg PO TID 02/22/23 [History Last Taken 02/21/23] calcium carb-ergocalciferol (vit D2) 600 mg calcium-200 unit tablet 1 tab PO BID 02/22/23 [History Last Taken Unknown] cholecalciferol (vitamin D3) 25 mcg (1,000 unit) capsule (Vitamin D3) 50 mcg PO DAILY Check with primary doctor 02/22/23 [History Last Taken Unknown] cyanocobalamin (vitamin B-12) 1,000 mcg tablet (Vitamin B-12) 5,000 mcg PO DAILY 02/22/23 [History Last Taken 02/21/23] multivitamin 1 tab PO DAILY 02/22/23 [History Last Taken Unknown] valsartan 320 mg-hydrochlorothiazide 12.5 mg tablet (Diovan HCT) 1 tab PO DAILY 02/22/23 [History Last Taken 02/21/23] venlafaxine 150 mg capsule,extended release 24 hr (Effexor XR) 150 mg PO DAILY 02/22/23 [History Last Taken Unknown] Allergy/AdvReac Type Severity Reaction Status Date / Time No Known Allergies Allergy Verified 07/12/22 10:46 Family History (Updated 02/22/23 @ 21:[address] Julio César Arndt MD) Other Heart disease Surgical History History of appendectomy Hx of cholecystectomy Stented coronary artery Social History Smoking Status: Current some day smoker tobacco type: cigarettes EXAM Physical Exam Const Vital Signs: 02/22/23 16:59 02/22/23 16:58 02/22/23 18:00 Temperature 96.9 F L Temperature Source Temporal Pulse Rate 105 H 95 Respiratory Rate 16 19 H Respiratory Effort Normal Non-Labored Respiratory Pattern Normal Blood Pressure 187/104 H 154/81 H Blood Pressure Mean 131 105 Pulse Ox 99 93 Oxygen Delivery Method Room Air Nasal Cannula Oxygen Flow Rate (L/min) 2 02/22/23 18:00 02/22/23 17:52 Temperature Temperature Source Pulse Rate Respiratory Rate Respiratory Effort Respiratory Pattern Blood Pressure Blood Pressure Mean Pulse Ox 84 85 Oxygen Delivery Method Room Air Room Air Oxygen Flow Rate (L/min) MDM MDM MDM Narrative Medical decision making narrative: HISTORY OF PRESENT ILLNESS: 62-year-old female here for nausea, she does not feel right. She states she has been having intermittent nausea and vomiting for the last several months. She states every time she comes to the ED she gets fluids morphine feels better goes home in the process starts all over. She notes she present earlier today felt better after getting IV Reglan and went home and started vomiting. She notes epigastric abdominal pain is nonradiating constant worse with vomiting. She does note some mild shortness of breath as well. She denies chest pain. She notes history of abdominal surgeries. Last bowel was yesterday. No melena or hematochezia. No urinary complaints. Patient does note she uses THC in the form of vape pen. She notes this is decreased recently. REVIEW OF SYSTEMS: Pertinent positives: abdominal pain, nausea and vomiting, SOB Pertinent negatives: CP, syncope, flank or back pain PHYSICAL EXAM: Nursing triage notes reviewed, Vital signs reviewed Constitutional: please see mdm HENT: MMM Eyes: Pupils equal round and reactive to light, Extraocular muscles intact Neck: No stridor, no JVD, full neck ROM Lungs: Clear to auscultation, asymmetric breath sounds, ? consolidation on right. No increased work of breathing, no conversational dyspnea, no accessory muscle use, no nasal flaring. No respiratory distress noted Heart: Regular rate and rhythm, No murmurs, No rubs and No gallops, 2+ distal pulses (radial, femoral, posterior tibial) in all extremities Abdomen: Soft, there is epigastric TTP but no rigidity, rebound or guarding, no obvious peritoneal signs, no palpable pulsatile abdominal masses, no auscultated abdominal bruit : No CVAT Extremities: No edema Neuro: No focal neurological deficits, cranial nerves II through XII intact, 5/5 strength in all extremities. Intact sensation to light touch in all extremities, 2+ reflexes bilateral patella tendons. Normal gait. No ataxia. Skin: No rash or lesions noted MEDICAL DECISION MAKING: Chief Complaint: External records reviewed: Seen earlier today for similar symptoms. Labs at that time earlier today showed no leukocytosis, no anemia, there was hemoconcentration which suggest dehydration, no thrombocytopenia, no significant electrolyte abnormalities, no anion gap to suggest endorgan hypoperfusion, no MARY, no hepatobiliary obstruction, no pancreatitis. Last CT scan of the abdomen pelvis was in June 2022 showed no acute process MDM Narrative: Patient was initially hypertensive, tachycardic otherwise hemodynamically stable, afebrile. Abdominal exam was overall benign with epigastric TTP. Patient's history of using THC vaping products with decrease use and symptom improvement with warm bath suggest cannabinoid hyperemesis syndrome. I considered the following differential diagnosis: Intra-abdominal pathology such as obstruction or perforation. I obtained a CT scan which showed no acute intra-abdominal pathology. I also obtained labs to rule out myocardial ischemia, I obtained EKG and chest x-ray. I gave the patient symptomatic treatment with Haldol, fluids capsaicin and morphine. Labs were remarkable for elevated lactate suggestive of endorgan hypoperfusion. Troponin and EKG were negative for myocardial ischemia. X-ray showed evidence of right lower lobe pneumonia. I suspect this is aspiration pneumonia given the patient's recent nausea and vomiting. Nausea and vomiting is controlled with IV Haldol, capsaicin cream (empiric therapy for cannabinoid hyperemesis syndrome) and fluids (1L NS) I did not give the patient a 30 cc/kg bolus despite elevated lactate secondary to echocardiogram from 02/21/2023 showing an ejection fraction 15% and concern for precipitating a CHF exacerbation. During the patient's ED course she did become transient hypoxic desatting requiring 2 L by nasal cannula. Given pneumonia, hypoxia and elevated lactate I recommended inpatient mission. Patient agreed with the plan. I will consult the hospitalist. Hospitalist consulted at 8:00pm Spoke to Dr. Arndt (Hospitalist) who recommended ICU inpatient admission. Factors affecting care: History of dilated cardiomyopathy CAD status post stents on aspirin and Plavix hypertension, hyperlipidemia Social determinants of health: Current smoker History obtained from others: The patient's daughter Shared decision making: I will have a discussion with the patient and or visitors regarding risk/benefits of further testing or admission. They will be made aware of of the risk/benefits inherent in this decision they will be given the opportunity to voice understanding. Consults: Internal medicine Lab Data Attestation: I reviewed the patient's lab results. Lab results narrative: EKG with normal sinus rhythm, normal axis,, occasional PVCs, no obvious STEMI, non-specific twave changes notes laterally Troponin is negative, no evidence of myocardial ischemia Lactate elevated consistent with endorgan hypoperfusion likely secondary to dehydration from nausea and vomiting. Will give fluids and repeat lactate. Labs: Laboratory Results - last 24 hr 02/22/23 02/22/23 17:40 17:40 Lactic Acid 2.8 H* Troponin I High Sens 15 Radiography Diagnostic Testing: Clinical Impression(s) from Imaging Studies Abdomen/Pelvis CT 02/22/23 18:44 IMPRESSION: No definite acute or significant abnormality seen. Electronically Signed: David Santiago MD at 19:31 EDT , Chest X-Ray 02/22/23 19:15 IMPRESSION: Development of diffuse interstitial infiltrates and patchy atelectasis or infiltrate of the lung bases. Electronically Signed: David Santiago MD at 19:26 EDT , Chest x-ray by my read shows evidence of a right lower lobe pneumonia. Discharge Plan Dx/Rx/DC Orders Clinical Impression: Hypoxia, Pneumonia, Nausea & vomiting Disposition Disposition: [facility] Discharge Date/Time: 02/22/23 21:35
--- NOTE | 2023-02-22 17:23 | EKG12_ITS ---
Test Reason : EPIGASTRIC PAIN Blood Pressure : / mmHG Vent. Rate : 098 BPM Atrial Rate : 098 BPM P-R Int : 158 ms QRS Dur : 100 ms QT Int : 404 ms P-R-T Axes : 066 055 217 degrees QTc Int : 515 ms Sinus rhythm with frequent Premature ventricular complexes Possible Left atrial enlargement Left ventricular hypertrophy with repolarization abnormality ( Sokolow-Porter ) Prolonged QT Abnormal ECG Confirmed by BABITA CLAY, CASSIE ([id number]), research editor RENEE ROBERSON ([id number]) on 02/25/2023 11:36:09 AM Referred By: Confirmed By:CASSIE JC MD
[2023-02-22] MEDS: Morphine 4 MG/ML Syringe IV (17:36)
[2023-02-22] MEDS: Haloperidol Lactate 5 MG/ML Vial 2 MG IV (17:37)
[2023-02-22] MEDS: 0.9% Normal Saline 1,000 ML 999 ML IV (17:38)
[2023-02-22] MEDS: Capsaicin 0.025% 1 APPLIC Tube TOPICAL (18:00)
[2023-02-22 18:07] LABS: Troponin-I HS 15 pg/mL (3.0-54.0)
[2023-02-22 18:16] LABS: Lactic Acid 2.8 mmol/L (0.4-1.9)
--- NOTE | 2023-02-22 18:44 | CT_ITS ---
STUDY: CT ABDOMEN AND PELVIS WITH CONTRAST REASON FOR EXAM: Female, 62 years old. abdominal pain, n/v RADIATION DOSAGE (If Supplied By Facility): CTDIvol = ( 18.67 ) mGy, DLP = ( 668.81 ) mGycm TECHNIQUE: Transaxial images were obtained from the dome of the diaphragm to the symphysis pubis without oral contrast. IV 100mL Isovue-370 was administered. Sagittal and coronal images were reconstructed. Individualized dose optimization techniques were used for this CT. COMPARISON: 07/12/2022. FINDINGS: Images through the lower chest show cardiomegaly and widespread interstitial thickening. Normal liver. There are surgical clips in the gallbladder fossa consistent with a prior cholecystectomy. Normal spleen. Normal pancreas. Normal bilateral adrenal glands. Normal right kidney. Normal left kidney. Normal visualized stomach. Normal small intestine. There are multiple colonic diverticula consistent with diverticulosis. The appendix is visualized and appears normal. There is diffuse atherosclerotic calcification of the abdominal aorta, without a demonstrated aneurysm. Normal inferior vena cava. Normal retroperitoneum. Normal urinary bladder. There is atrophy of the uterus. Normal abdominal wall. Normal osseous structures. CT/Abdomen/Pelvis W IV Cont ONLY IMPRESSION: No definite acute or significant abnormality seen. Electronically Signed: David Santiago MD at 19:31 EDT ,
--- NOTE | 2023-02-22 19:15 | RAD_ITS ---
STUDY: X-RAY CHEST REASON FOR EXAM: Female, 62 years old. SOB TECHNIQUE: Single AP portable view of the chest. COMPARISON: 02/08/2023 FINDINGS: Since prior study patient has developed extensive interstitial disease and additional, airspace opacities in both lower lung bautista, worse on the right. Findings are most consistent with development of interstitial edema and atelectasis or infiltrate of the lung bases. There is no demonstrated pleural abnormality. Normal size heart. Normal mediastinum and yonatan. Normal visualized pulmonary arteries. Normal visualized aortic arch and descending thoracic aorta. Normal visualized thoracic spine. Normal visualized ribs, clavicles, and shoulders. There is no demonstrated abnormality of the visualized soft tissue structures of the upper abdomen. RAD/Chest 1 View (Portable) IMPRESSION: Development of diffuse interstitial infiltrates and patchy atelectasis or infiltrate of the lung bases. Electronically Signed: David Santiago MD at 19:26 EDT ,
--- NOTE | 2023-02-22 20:16 | HP.PCM.HOS_ITS ---
HPI - General General Date of Admission: 02/22/23 Date of Service: 02/22/23 Chief Complaint: Nausea and vomiting HPI Narrative VISHAL KIDD, is a 62 F with a significant history of alcoholism; CAD status post stents who presents to the emergency department with progressively worsening nausea and vomiting. Patient reports that she has been having above symptoms for the past 2 years however it has worsened especially in the past 2 weeks. She reported she had EGD with Dr. Cedeño at the [facility] towards the end of 2021 or early 2022 and the EGD showed areas of irritation in her stomach. Also she reports imaging findings of hiatal hernia. This is patient's second visit to the emergency department on the same day; and for the same symptoms. She was discharged home the first time but because she continued to have persistent nausea and vomiting she returned back. She reported that her vomitus also had progressed to bright yellow color with bloody spots. She reported about a week ago she had black tarry stools but that has since resolved. Associated with her symptom is excruciating epigastric pain that she rates at 9 out of 10. The pain is dull and is constant. Of note she had a echocardiogram 2 days before presentation and echocardiogram showed EF of 15%. [facility] Medical History Dyslipidemia Hiatal hernia HTN (hypertension) Nausea and vomiting Home Medications aspirin 325 mg tablet 325 mg PO QHS 06/06/16 [History Last Taken 02/21/23] clopidogrel 75 mg tablet 75 mg PO QHS 06/06/16 [History Last Taken 02/21/23] metoprolol tartrate 50 mg tablet 75 mg PO BID 06/06/16 [History Last Taken 02/21/23] rosuvastatin 10 mg tablet 20 mg PO QHS 06/06/16 [History Last Taken 02/21/23] pantoprazole 40 mg tablet,delayed release 40 mg PO DAILY #30 tabs 07/12/22 [Rx Last Taken 02/21/23] buspirone 10 mg tablet 10 mg PO TID 02/22/23 [History Last Taken 02/21/23] calcium carb-ergocalciferol (vit D2) 600 mg calcium-200 unit tablet 1 tab PO BID 02/22/23 [History Last Taken Unknown] cyanocobalamin (vitamin B-12) 1,000 mcg tablet (Vitamin B-12) 5,000 mcg PO DAILY 02/22/23 [History Last Taken 02/21/23] multivitamin 1 tab PO DAILY 02/22/23 [History Last Taken Unknown] valsartan 320 mg-hydrochlorothiazide 12.5 mg tablet (Diovan HCT) 1 tab PO DAILY 02/22/23 [History Last Taken 02/21/23] venlafaxine 150 mg capsule,extended release 24 hr (Effexor XR) 150 mg PO DAILY 02/22/23 [History Last Taken Unknown] Allergy/AdvReac Type Severity Reaction Status Date / Time No Known Allergies Allergy Verified 07/12/22 10:46 Family History (Updated 02/22/23 @ 21:[address] Julio César Arndt MD) Other Heart disease Surgical History History of appendectomy Hx of cholecystectomy Stented coronary artery Social History Smoking Status: Current some day smoker tobacco type: cigarettes ROS ROS Narrative Pertinent positives and pertinent negatives as noted in HPI. All other systems were reviewed and are negative Vital Signs Vital Signs Vital Signs: 02/22/23 16:59 02/22/23 16:58 02/22/23 18:00 Temperature 96.9 F L Temperature Source Temporal Pulse Rate 105 H 95 Respiratory Rate 16 19 H Respiratory Effort Normal Non-Labored Respiratory Pattern Normal Blood Pressure 187/104 H 154/81 H Blood Pressure Mean 131 105 Pulse Ox 99 93 Oxygen Delivery Method Room Air Nasal Cannula Oxygen Flow Rate (L/min) 2 02/22/23 18:00 02/22/23 17:52 Temperature Temperature Source Pulse Rate Respiratory Rate Respiratory Effort Respiratory Pattern Blood Pressure Blood Pressure Mean Pulse Ox 84 85 Oxygen Delivery Method Room Air Room Air Oxygen Flow Rate (L/min) Weight Weight: 74.389 kg Body Mass Index (BMI) 29.0 Physical Exam Narrative Physical exam: General: Well-nourished, well-developed. Head: Normocephalic, atraumatic, no tenderness Eyes: Vision is grossly intact. EOMI ENT, no trauma, moist mucous membranes, no rhinorrhea Neck: Nontender, No thyromegaly. CVS: Tachycardia. S1-S2 present. No murmur, gallop or rub. Respiratory : Diminished, chest wall nontender Abdomen: Soft, mildly tender at epigastric area, hypoactive bowel sounds. : Deferred Back: Nontender, no CVA tenderness. Extremities: Nontender full range of motion, no trauma Skin: Normal color, no trauma, abrasions Neuro: Alert, oriented, cranial nerves II through XII grossly intact. Psychiatry: Normal mood. Normal affect. Not depressed. Not anxious. Results Lab / Micro Data Labs: Laboratory Results - last 24 hr 02/22/23 17:40: Troponin I High Sens 15 02/22/23 17:40: Lactic Acid 2.8 H* Radiology Impression Abdomen/Pelvis CT 02/22/23 18:44 IMPRESSION: No definite acute or significant abnormality seen. Electronically Signed: David Santiago MD at 19:31 EDT , Chest X-Ray 02/22/23 19:15 IMPRESSION: Development of diffuse interstitial infiltrates and patchy atelectasis or infiltrate of the lung bases. 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 SIRS criteria: Respiratory rate more than 20 Heart rate more than 90 organ dysfunction: Lactate more than 2 mmol/L Impression of chest xray by radiology: Development of diffuse interstitial infiltrates and patchy atelectasis or infiltrate of the lung bases. Chest x-ray was independently interpreted by hospitalist and I agree with radiology interpretation. There is bilateral infiltrates which is more prominent at the right lower lungs than the left side. Different diagnosis include a chemical pneumonitis. Lactic acidosis could be secondary to hypoxemia Pneumonia likely secondary to aspiration. Started on Unasyn in the emergency department and continued. We will get blood cultures. Trend lactic acid. Of note patient was not hypotensive and lactic acid was less than 4 so did not require out 30 mL/kg bolus. Further patient has combined heart failure with ejection fraction of 15% and stage II diastolic dysfunction and not a candidate of 30 ml per kilogram bolus. CBC showed white count of 9.8, trend. Acute combined systolic and diastolic dysfunction. Echocardiogram on 02/21/2023 showed ejection fraction of 15%. Stage II diastolic dysfunction. Severe global hypokinesis of the left ventricle. N.p.o. secondary to nausea and vomiting. Hold home valsartan?hydrochlorothiazide. Hold home p.o. metoprolol. IV metoprolol and IV Vasotec ordered. Stress test on 04/27/19 showed discrete perfusion defect noted at the apex on the stress and resting images which appeared to be similar.? There was also reduced perfusion noted in the mid inferior wall. Patient reportedly is scheduled for an appointment with Dr. Reeves, cardiology early next week. Monitor. Fusing Line Inspector consult Intractable nausea and vomiting Like secondary gastritis. Order to obtain records of EGD that was done with Dr. Cedeño. Protonix ordered. GI consult. Alcoholism Patient drinks about 5-6 beers about a bit per day. Last time she drank was about 2 weeks ago. Reportedly she stopped drinking due to worsening of her nausea and vomiting. Thiamine IV and folic acid IV ordered. Counselled. Tobacco abuse Counselled CAD status post stent Reports stent in 2006 Denies chest pain Stable High sensitivity troponin x1 negative. EKG sinus rhythm with PVCs Aspirin and clopidogrel on hold secondary to nausea and vomiting. DVT prophylaxis SCD Sepsis Attestation Sepsis Alert: Yes Sepsis Attestation: Agree w/Sepsis Date exam was performed: 02/22/23 Possible Source of Sepsis: Pulmonary Sepsis Organ Dysfunction Criteria Present: Lactic Acid > 2 mmol/L Sepsis Note Date exam was performed: 02/22/23 Time exam was performed: 21:00 Sepsis Attestation: Sepsis re-evaluation was performed Charges/Coding Visit Charges Inpatient E&M: 32889 Init Hosp L3
[2023-02-22 21:44] LABS: Reflex Lactate? Y
--- NOTE | 2023-02-22 22:18 | EKG12_ITS ---
Test Reason : AM EKG Blood Pressure : / mmHG Vent. Rate : 077 BPM Atrial Rate : 077 BPM P-R Int : 154 ms QRS Dur : 098 ms QT Int : 428 ms P-R-T Axes : 017 054 239 degrees QTc Int : 484 ms Normal sinus rhythm Moderate voltage criteria for LVH, may be normal variant ( Sokolow-Porter , Angel product ) ST & Marked T-wave abnormality, consider inferolateral ischemia Prolonged QT Abnormal ECG When compared with ECG of 25-FEB-2023 12:14, MANUAL COMPARISON REQUIRED, DATA IS UNCONFIRMED Confirmed by BABITA CLAY, CASSIE ([id number]), sports editor RENEE ROBERSON ([id number]) on 02/27/2023 8:39:46 AM Referred By: GARLAND Confirmed By:CASSIE JC MD
[2023-02-22] MEDS: Morphine 2 MG/ML Syringe IV (22:19)
[2023-02-22] MEDS: Metoprolol Tartrate 5 MG/5 ML Vial IV (22:20)
[2023-02-22] MEDS: Enalaprilat 1.25 MG/ML Vial 0.625 MG IV (22:21)
[2023-02-22] MEDS: 0.9% Saline Lock 10 ML Syringe IV (22:22)
[2023-02-22] MEDS: Dicyclomine 20 MG/2 ML Vial IM (22:38)
[2023-02-22 22:46] LABS: Lactic Acid 1.8 mmol/L (0.4-1.9)
[2023-02-23] VITALS (16 sets, daily range): BP systolic 101–155; BP diastolic 51–84; PULSE 62–78; RESP 13–20; TEMP 36.4–37.3; O2SAT 94–100; BMI 29.0
[2023-02-23 00:04] LABS: Magnesium 1.6 mg/dL (1.6-2.6); Phosphorus 4.2 mg/dL (2.5-4.9)
[2023-02-23] MEDS: 0.9% Saline Lock 10 ML Syringe IV ×3 (00:22→09:18)
[2023-02-23] MEDS: Magnesium Sulfate 4gm/100mL 4 GM/100 ML IV.SOLN. IV (00:22)
[2023-02-23 03:25] LABS: Absolute Lymphocyte Count 1.49 X10^3/uL (0.83-4.51); Basophil# 0.05 X10^3/uL; Basophil% 0.4 % (0-1); Hematocrit 40.6 % (37-47); Hemoglobin 13.3 g/dL (12.0-15.0); Lymphocyte # 1.49 X10^3/ul (0.83-4.51); Mean Corp Hgb Conc 32.8 g/dL (32-36); Mean Corpuscular Hgb 30.1 pg (27.0-32.0); Mean Corpuscular Volume 91.9 fL (81-99); Mean Platelet Vol. 9.8 fl (6.2-12.0); Monocyte% 6.5 % (0-10); NRBC Flagged by Analyzer 0 % (0-5); Neutrophil # 9.99 X10^3/uL (2.7-7.7); Neutrophil % 80.7 % (47-70); Platelet Count 275 K/mm3 (150-450); RBC Distribution Width SD 43.4 fl (35.1-43.9); Red Blood Count 4.42 M/mm3 (4.2-5.4); White Blood Count 12.4 K/mm3 (4.4-11.0)
[2023-02-23 03:43] LABS: Anion Gap 4 (5-15); BUN 13 mg/dL (7-18); BUN/Creat Ratio 21.5 RATIO (10-20); Calcium,Total 8.6 mg/dL (8.5-10.1); Chloride 107 mmol/L (98-107); EST Glomerular Filtration Rate 107 mL/min (>60); Est Glom Filt Rate - Afr Amer 130 mL/min (>60); Estimated Creatinine Clearance 82.48 ml/min; Glucose 113 mg/dL (74-106); Potassium 3.5 mmol/L (3.5-5.1); Sodium Level 142 mmol/L (136-145)
[2023-02-23] MEDS: Metoprolol Tartrate 5 MG/5 ML Vial IV (05:03)
[2023-02-23] MEDS: Enalaprilat 1.25 MG/ML Vial 0.625 MG IV (05:07)
--- NOTE | 2023-02-23 08:24 | EX.PCM.CONCC ---
Assessment & Plan Assessment/Plan (1) Sepsis: PLAN: Awaiting culture results Patient improved on Unasyn, with normalization of lactate. Hemodynamically stable and on room air. Uncertain source, with negative chest and abdominal CT scans. (2) Hypoxia: PLAN: Titrate O2 to keep saturation greater than equal to 92% in the setting of dilated cardiomyopathy and CHF (3) Tobacco user: PLAN: Smoking cessation is recommended (4) Combined systolic and diastolic heart failure: QUALIFIERS: Heart failure chronicity: acute Qualified Code(s): I50.41 - Acute combined systolic (congestive) and diastolic (congestive) heart failure PLAN: Diuresis, serial troponins (5) Vomiting: PLAN: Possible acute gastroenteritis versus cardiac ischemia (6) Hiatal hernia: PLAN: Chronic PLAN: Plan As above. Critical care will follow with you until the patient is ready to transfer out of the unit, at which point we will sign off. HPI Consult Data Date of Consult: 02/23/23 HPI Narrative HPI Narrative: VISHAL KIDD, is a 62 F who presents [facility] Medical History Dyslipidemia Hiatal hernia HTN (hypertension) Nausea and vomiting Home Medications aspirin 325 mg tablet 325 mg PO QHS 06/06/16 [History Last Taken 02/21/23] clopidogrel 75 mg tablet 75 mg PO QHS 06/06/16 [History Last Taken 02/21/23] metoprolol tartrate 50 mg tablet 75 mg PO BID 06/06/16 [History Last Taken 02/21/23] rosuvastatin 10 mg tablet 20 mg PO QHS 06/06/16 [History Last Taken 02/21/23] pantoprazole 40 mg tablet,delayed release 40 mg PO DAILY #30 tabs 07/12/22 [Rx Last Taken 02/21/23] buspirone 10 mg tablet 10 mg PO TID 02/22/23 [History Last Taken 02/21/23] calcium carb-ergocalciferol (vit D2) 600 mg calcium-200 unit tablet 1 tab PO BID 02/22/23 [History Last Taken Unknown] cholecalciferol (vitamin D3) 25 mcg (1,000 unit) capsule (Vitamin D3) 50 mcg PO DAILY Check with primary doctor 02/22/23 [History Last Taken Unknown] cyanocobalamin (vitamin B-12) 1,000 mcg tablet (Vitamin B-12) 5,000 mcg PO DAILY 02/22/23 [History Last Taken 02/21/23] multivitamin 1 tab PO DAILY 02/22/23 [History Last Taken Unknown] valsartan 320 mg-hydrochlorothiazide 12.5 mg tablet (Diovan HCT) 1 tab PO DAILY 02/22/23 [History Last Taken 02/21/23] venlafaxine 150 mg capsule,extended release 24 hr (Effexor XR) 150 mg PO DAILY 02/22/23 [History Last Taken Unknown] Allergy/AdvReac Type Severity Reaction Status Date / Time No Known Allergies Allergy Verified 07/12/22 10:46 Family History (Updated 02/22/23 @ 21:[address] Julio César Arndt MD) Other Heart disease Surgical History History of appendectomy Hx of cholecystectomy Stented coronary artery Social History Smoking Status: Current some day smoker tobacco type: cigarettes Lab / Micro Data Attestation: I reviewed the patient's lab results. Lab results narrative: The patient was seen and examined at the bedside this morning. Events from the last 24 hours have been reviewed. The patient's most recent labs microbiology and imaging have all been personally reviewed. The case was discussed on ICU interdisciplinary rounds. Overnight: Pertinent events include: Lactate has normalized. CT chest and abdomen February 22, 2023 showed no obvious pulmonary or GI source. There was cardiomegaly and changes consistent with CHF, vascular calcifications, and prior cholecystectomy. Result Diagrams: 02/23/23 03:18 02/23/23 03:18 Labs: Laboratory Results - last 24 hr 02/22/23 17:40: Troponin I High Sens 15 02/22/23 17:40: Lactic Acid 2.8 H* 02/22/23 22:00: Lactic Acid 1.8 02/22/23 23:40: Phosphorus 4.2, Magnesium 1.6 02/23/23 03:18: WBC 12.4 H, RBC 4.42, Hgb 13.3, Hct 40.6, MCV 91.9, MCH 30.1, MCHC 32.8, RDW Std Deviation 43.4, RDW Coeff of Ramos 13.0, Plt Count 275, MPV 9.8, Immature Gran % (Auto) 0.400, Neut % (Auto) 80.7 H, Lymph % (Auto) 12.0 L, [place] % (Auto) 6.5, Eos % (Auto) 0.0, Baso % (Auto) 0.4, Absolute Neuts (auto) 10.0 H, Absolute Lymphs (auto) 1.49, Nucleated RBC % 0 02/23/23 03:18: Sodium 142, Potassium 3.5, Chloride 107, Carbon Dioxide 31.0, Anion Gap 4 L, BUN 13, Creatinine 0.60, Estim Creat Clear Calc 82.48, Est GFR (MDRD) Af Amer 130, Est GFR (MDRD) Non-Af 107, BUN/Creatinine Ratio 21.5 H, Glucose 113 H, Calcium 8.6 CT chest and abdomen 02/22/2023 FINDINGS: Images through the lower chest show cardiomegaly and widespread interstitial thickening. Normal liver.? There are surgical clips in the gallbladder fossa consistent with a prior cholecystectomy.? Normal spleen.? Normal pancreas. Normal bilateral adrenal glands. Normal right kidney.? Normal left kidney. Normal visualized stomach.? Normal small intestine.? There are multiple colonic diverticula consistent with diverticulosis.? The appendix is visualized and appears normal. There is diffuse atherosclerotic calcification of the abdominal aorta, without a demonstrated aneurysm.? Normal inferior vena cava.? Normal retroperitoneum. Normal urinary bladder.? There is atrophy of the uterus. Normal abdominal wall.? Normal osseous structures. CT/Abdomen/Pelvis W IV Cont ONLY IMPRESSION: No definite acute or significant abnormality seen. ? Electronically Signed: David Santiago MD at 19:31 EDT Micro: Microbiology 02/23/23 03:18 Urine, Clean Catch Streptococcus pneumoniae Antigen (M - Final 02/23/23 03:18 Urine, Clean Catch Legionella Antigen - Final Radiology Impression Abdomen/Pelvis CT 02/22/23 18:44 IMPRESSION: No definite acute or significant abnormality seen. Electronically Signed: David Santiago MD at 19:31 EDT , Chest X-Ray 02/22/23 19:15 IMPRESSION: Development of diffuse interstitial infiltrates and patchy atelectasis or infiltrate of the lung bases. Electronically Signed: David Santiago MD at 19:26 EDT ,
[2023-02-23 09:04] LABS: BNP,B-Type NATRIURETIC PEPTIDE 1392.6 pg/mL (0-100)
[2023-02-23] MEDS: Furosemide 40 MG/4 ML Vial IV (09:18)
[2023-02-23] MEDS: Ensure Clear 120 ML Liquid PO ×4 (09:30→20:51)
[2023-02-23 10:04] LABS: Cholesterol 187 mg/dL (200); High Density Lipoprotein 40 mg/dL; Triglycerides 62 mg/dL; Very Low Density Lipoprotein 12 mg/dL (5-40)
[2023-02-23] MEDS: Spironolactone 25 MG Tablet 12.5 MG PO (10:15)
[2023-02-23] MEDS: Carvedilol 6.25 MG Tablet PO ×2 (10:15→22:42)
[2023-02-23] MEDS: Lisinopril 5 MG Tablet PO (10:15)
--- NOTE | 2023-02-23 10:43 | PCM.CONS.C ---
Assessment & Plan Assessment/Plan (1) Dilated cardiomyopathy: PLAN: Drop in EF appears to be new. Patient does have history of coronary artery disease status post stent to the RCA in 2006. I think will be reasonable to proceed with coronary angiography to see if she has significant progression and CAD that has contributed to her drop in EF. She does appear compensated from a CHF standpoint. Continue current medications. Her metoprolol can be switched to metoprolol succinate 150 mg p.o. daily. (2) Coronary artery disease: PLAN: Continue present management. Because of new drop in EF may we will proceed with coronary angiography on Saturday. HPI Consult Data Date of Consult: 02/23/23 HPI Narrative Reason for Consultation: Low EF HPI Narrative: VISHAL KIDD, is a 62 F who presents with nausea and vomiting. She has history of coronary artery disease status post PCI of RCA in 2006. There is a note from Dr. Chambers in 2011 mentioning that at that time patient had chest discomfort which she currently does not have. In 2012 also the consult was requested for nausea and vomiting and even back then it was felt that her symptoms were not due to CAD. She was getting GI work-up given at that time for nausea and vomiting. She denies any chest pain, shortness of breath. She apparently was following with a washer and crusher tender at [facility] who retired and has not seen a washer and crusher tender for over 10 years. She finally apparently saw a washer and crusher tender earlier this week who ordered a 2D echo which was done here and showed an EF of 15%. The cardiology consult from 2012 describes normal EF. Review of systems: All systems reviewed. All system negative except in HPI [facility] Medical History Dyslipidemia Hiatal hernia HTN (hypertension) Nausea and vomiting Home Medications aspirin 325 mg tablet 325 mg PO QHS 06/06/16 [History Last Taken 02/21/23] clopidogrel 75 mg tablet 75 mg PO QHS 06/06/16 [History Last Taken 02/21/23] metoprolol tartrate 50 mg tablet 75 mg PO BID 06/06/16 [History Last Taken 02/21/23] rosuvastatin 10 mg tablet 20 mg PO QHS 06/06/16 [History Last Taken 02/21/23] pantoprazole 40 mg tablet,delayed release 40 mg PO DAILY #30 tabs 07/12/22 [Rx Last Taken 02/21/23] buspirone 10 mg tablet 10 mg PO TID 02/22/23 [History Last Taken 02/21/23] calcium carb-ergocalciferol (vit D2) 600 mg calcium-200 unit tablet 1 tab PO BID 02/22/23 [History Last Taken Unknown] cholecalciferol (vitamin D3) 25 mcg (1,000 unit) capsule (Vitamin D3) 50 mcg PO DAILY Check with primary doctor 02/22/23 [History Last Taken Unknown] cyanocobalamin (vitamin B-12) 1,000 mcg tablet (Vitamin B-12) 5,000 mcg PO DAILY 02/22/23 [History Last Taken 02/21/23] multivitamin 1 tab PO DAILY 02/22/23 [History Last Taken Unknown] valsartan 320 mg-hydrochlorothiazide 12.5 mg tablet (Diovan HCT) 1 tab PO DAILY 02/22/23 [History Last Taken 02/21/23] venlafaxine 150 mg capsule,extended release 24 hr (Effexor XR) 150 mg PO DAILY 02/22/23 [History Last Taken Unknown] Allergy/AdvReac Type Severity Reaction Status Date / Time No Known Allergies Allergy Verified 07/12/22 10:46 Family History (Updated 02/22/23 @ 21:[address] Julio César Arndt MD) Other Heart disease Surgical History History of appendectomy Hx of cholecystectomy Stented coronary artery Social History Smoking Status: Current some day smoker tobacco type: cigarettes Physical Exam Const alert and oriented x3 HEENT normocephalic Eyes no scleral icterus Resp normal respiratory effort Cardio regular rate Extremity no pedal edema Skin no rashes or lesions noted Psych mental status grossly normal Risk Stratification Risk Stratification Applicable: No Charges/Coding Visit Charges Inpatient E&M: 39690 Init Hosp L2 Objective Data Vital Signs: Vital Signs Temp Pulse Resp BP Pulse Ox O2 Del Method O2 Flow Rate 98.1 F 65 20 H 110/84 H 96 Nasal Cannula 2 02/23/23 08:00 02/23/23 08:00 02/23/23 08:00 02/23/23 08:00 02/23/23 08:00 02/23/23 08:15 02/23/23 08:15 Oxygen Flow Rate (L/min) 2 Oxygen Delivery Method Nasal Cannula Weight: 163 lb 9.328 oz Body Mass Index (BMI) 29.0 Intake & Output: Intake and Output for Last 24 Hours 02/21/23 02/22/23 02/23/23 23:59 23:59 23:59 Intake Total 1364 / 1364 431.5 / 431.5 Balance 1364 / 1364 431.5 / 431.5 Lab / Micro Data Result Diagrams: 02/23/23 03:18 02/23/23 03:18 Labs: Laboratory Results - last 24 hr 02/22/23 17:40: Troponin I High Sens 15 02/22/23 17:40: Lactic Acid 2.8 H* 02/22/23 22:00: Lactic Acid 1.8 02/22/23 23:40: Phosphorus 4.2, Magnesium 1.6 02/23/23 03:18: WBC 12.4 H, RBC 4.42, Hgb 13.3, Hct 40.6, MCV 91.9, MCH 30.1, MCHC 32.8, RDW Std Deviation 43.4, RDW Coeff of Ramos 13.0, Plt Count 275, MPV 9.8, Immature Gran % (Auto) 0.400, Neut % (Auto) 80.7 H, Lymph % (Auto) 12.0 L, [place] % (Auto) 6.5, Eos % (Auto) 0.0, Baso % (Auto) 0.4, Absolute Neuts (auto) 10.0 H, Absolute Lymphs (auto) 1.49, Nucleated RBC % 0 02/23/23 03:18: Sodium 142, Potassium 3.5, Chloride 107, Carbon Dioxide 31.0, Anion Gap 4 L, BUN 13, Creatinine 0.60, Estim Creat Clear Calc 82.48, Est GFR (MDRD) Af Amer 130, Est GFR (MDRD) Non-Af 107, BUN/Creatinine Ratio 21.5 H, Glucose 113 H, Calcium 8.6 02/23/23 03:18: B-Natriuretic Peptide 1392.6 H 02/23/23 03:18: Triglycerides 62, Cholesterol 187, LDL Cholesterol 135 H, VLDL Cholesterol 12, HDL Cholesterol 40 Micro: Microbiology 02/23/23 03:18 Urine, Clean Catch Streptococcus pneumoniae Antigen (M - Final 02/23/23 03:18 Urine, Clean Catch Legionella Antigen - Final Cardiology Labs/Tests 02/22/23 17:40: Lactic Acid 2.8 H* 02/22/23 22:00: Lactic Acid 1.8 02/22/23 23:40: Phosphorus 4.2, Magnesium 1.6 02/23/23 03:18: WBC 12.4 H, RBC 4.42, Hgb 13.3, Hct 40.6, MCV 91.9, MCH 30.1, MCHC 32.8, Plt Count 275, MPV 9.8, Immature Gran % (Auto) 0.400, Neut % (Auto) 80.7 H, Lymph % (Auto) 12.0 L, [place] % (Auto) 6.5, Eos % (Auto) 0.0, Baso % (Auto) 0.4, Absolute Neuts (auto) 10.0 H, Nucleated RBC % 0 02/23/23 03:18: Sodium 142, Potassium 3.5, Chloride 107, Carbon Dioxide 31.0, Anion Gap 4 L, BUN 13, Creatinine 0.60, Est GFR (MDRD) Af Amer 130, Est GFR (MDRD) Non-Af 107, BUN/Creatinine Ratio 21.5 H, Glucose 113 H, Calcium 8.6 02/23/23 03:18: B-Natriuretic Peptide 1392.6 H 02/23/23 03:18: Triglycerides 62, Cholesterol 187, LDL Cholesterol 135 H, VLDL Cholesterol 12, HDL Cholesterol 40 Rhythm: EKG: ECHO: Stress Test: Cardiac Cath: PCI: CT Surgery: Holter monitor: EPS: PPM: CXR: Chest CT Scan: Radiography Diagnostic Testing: Radiology Impression Abdomen/Pelvis CT 02/22/23 18:44 IMPRESSION: No definite acute or significant abnormality seen. Electronically Signed: David Santiago MD at 19:31 EDT , Chest X-Ray 02/22/23 19:15 IMPRESSION: Development of diffuse interstitial infiltrates and patchy atelectasis or infiltrate of the lung bases. Electronically Signed: David Santiago MD at 19:26 EDT ,
[2023-02-23 10:55] LABS: Hemoglobin A1c 5.7 % (3.8-5.6)
--- NOTE | 2023-02-23 12:40 | CASEMGMT ---
RN CM Face to Face with patient for initial transition planning/care coordination assessment. RN CM introduced self and role at [facility]. Patient lying in bed, alert and oriented. Patient willing to participate in assessment and is able to answer all questions appropriately. Care providers, pharmacy, and demographics verified. Patient wishes to discharge home, denies need for home health at this time. Patient states she has no further needs or concerns at this time. CM to follow for discharge planning needs that may arise. PCP: Gaby Specialists: none Preferred Pharmacy: [facility] Insurance: [employer] Prescription Benefit: yes Living Will/HPOA: none LNOK: daughter, significant other Living Arrangements: Patient lives with significant other in a single story home with 5 steps and railing to enter. Patient is independent at home. Transportation: self, daughter DME/HHC: Patient has shower chair, raised toilet, cane, crutches, walker, grab bars, and pulse ox at home. No previous HHC or SNF. Disposition Plan: Patient to discharge home with family support and follow-up plans in place. Amanda MIRANDA, RN, CM
--- NOTE | 2023-02-23 13:35 | PCM.PN.HOSP ---
Reason for Visit Reason for Visit: Nausea and vomiting Objective Data Objective Data Vital Signs: Vital Signs Temp Pulse Resp BP Pulse Ox O2 Del Method O2 Flow Rate 98.4 F 69 17 140/72 H 94 Room Air 2 02/23/23 11:51 02/23/23 11:51 02/23/23 11:51 02/23/23 11:51 02/23/23 11:51 02/23/23 11:51 02/23/23 08:15 Oxygen Flow Rate (L/min) 2 Oxygen Delivery Method Room Air Weight: 74.2 kg Body Mass Index (BMI) 29.0 Intake & Output: Intake and Output for Last 24 Hours 02/21/23 02/22/23 02/23/23 23:59 23:59 23:59 Intake Total 1364 / 1364 890.45 / 890.45 Output Total 1700 / 1700 Balance 1364 / 1364 -809.55 / -809.55 Lab / Micro Data Result Diagrams: 02/23/23 03:18 02/23/23 03:18 Labs: Laboratory Results - last 24 hr 02/22/23 08:13: Hemoglobin A1c 5.7 H 02/22/23 17:40: Troponin I High Sens 15 02/22/23 17:40: Lactic Acid 2.8 H* 02/22/23 22:00: Lactic Acid 1.8 02/22/23 23:40: Phosphorus 4.2, Magnesium 1.6 02/23/23 03:18: WBC 12.4 H, RBC 4.42, Hgb 13.3, Hct 40.6, MCV 91.9, MCH 30.1, MCHC 32.8, RDW Std Deviation 43.4, RDW Coeff of Ramos 13.0, Plt Count 275, MPV 9.8, Immature Gran % (Auto) 0.400, Neut % (Auto) 80.7 H, Lymph % (Auto) 12.0 L, [place] % (Auto) 6.5, Eos % (Auto) 0.0, Baso % (Auto) 0.4, Absolute Neuts (auto) 10.0 H, Absolute Lymphs (auto) 1.49, Nucleated RBC % 0 02/23/23 03:18: Sodium 142, Potassium 3.5, Chloride 107, Carbon Dioxide 31.0, Anion Gap 4 L, BUN 13, Creatinine 0.60, Estim Creat Clear Calc 82.48, Est GFR (MDRD) Af Amer 130, Est GFR (MDRD) Non-Af 107, BUN/Creatinine Ratio 21.5 H, Glucose 113 H, Calcium 8.6 02/23/23 03:18: B-Natriuretic Peptide 1392.6 H 02/23/23 03:18: Triglycerides 62, Cholesterol 187, LDL Cholesterol 135 H, VLDL Cholesterol 12, HDL Cholesterol 40 Micro: Microbiology 02/23/23 03:18 Urine, Clean Catch Streptococcus pneumoniae Antigen (M - Final 02/23/23 03:18 Urine, Clean Catch Legionella Antigen - Final Radiography Diagnostic Testing: Radiology Impression Abdomen/Pelvis CT 02/22/23 18:44 IMPRESSION: No definite acute or significant abnormality seen. Electronically Signed: David Santiago MD at 19:31 EDT , Chest X-Ray 02/22/23 19:15 IMPRESSION: Development of diffuse interstitial infiltrates and patchy atelectasis or infiltrate of the lung bases. Electronically Signed: David Santiago MD at 19:26 EDT , Assessment & Plan Assessment/Plan (1) Acute on chronic combined systolic and diastolic heart failure: (2) Hypoxia: (3) Nausea & vomiting: QUALIFIERS: Vomiting type: unspecified Qualified Code(s): R11.2 - Nausea with vomiting, unspecified PLAN: Plan Acute on chronic combined heart failure -Patient hypoxic on presentation with oxygen saturations at 84%. -Initially on 4 L nasal cannula but now has been able to be weaned to room air -Lasix IV push x1 dose given -Chest x-ray reviewed and shows patchy bilateral infiltrates and CT shows scattered groundglass changes at bases bilaterally with no infiltrate -Appears more compensated now so we will transition to Lasix 40 mg daily -Start Coreg 6.25 daily -Start lisinopril 5 mg daily -Start Aldactone 12.5 mg daily -Titrate up all goal-directed therapy as able -Consider adding Jardiance prior to discharge -Echocardiogram done on 02/21/2023 demonstrated an EF of 15% with severe global hypokinesis of the LV and stage II diastolic dysfunction -Enzymes are unremarkable -I obtained a stat BNP this morning which was markedly elevated -Cardiology consulted and plan is for catheterization on Saturday Sepsis/pneumonia -Ruled out Hypoxia -No infiltrate noted at base on CT abdomen and pelvis -Chest x-ray shows patchy bilateral infiltrates more consistent with pulmonary edema -Lasix given by me and now on room air -Discontinue IV antibiotics as my suspicion for pneumonia at is extremely low -No fever no new cough no significant sputum production -Patient did have nausea and vomiting but no infiltrate noted on imaging most specifically CT of her abdomen pelvis at the bases of her lungs Lactic acidosis -Suspect related to severe heart failure and hypoxia on presentation -Resolved quickly without any fluid administration Chronic nausea and vomiting -EGD done by Dr. Cedeño toward the end of 2021 early this year and showed areas of irritation in her stomach but was otherwise unremarkable except for a hiatal hernia -It does appear that patient has had multiple EGDs upon review of previous documentation with regards to this -Continue IV Protonix -We will allow for clear liquid diet -After discussion with her it sounds like most of these episodes are related to flushing sensation she gets at which point she gets diaphoretic and then has nausea and vomiting afterwards -Hemoglobin is stable -GI is consulted-await input CAD/HTN/HPL -Hold home Plavix until cath done in case patient needs to be referred for any surgical intervention -Add aspirin 81 mg daily -Lipid profile shows elevated LDL at 135 -Start atorvastatin 80 mg -Add Coreg/lisinopril/Aldactone as noted above and monitor blood pressure -Hold home agents -Previous RCA stent placed in 2006 GERD/hiatal hernia -Continue Protonix Depression -Continue Effexor Tobacco abuse -Recommend cessation -Patient denies need for any nicotine replacement therapy at this time DVT prophylaxis -Start subcu Lovenox CODE STATUS Full code Charges/Coding Visit Charges Inpatient E&M: 42652 Subs Hosp L3
[2023-02-23] MEDS: Potassium Chloride Oral Tablet 20 MEQ 40 MEQ PO (20:43)
[2023-02-23] MEDS: Clopidogrel Bisulfate 75 MG Tablet PO (20:45)
[2023-02-24] VITALS (10 sets, daily range): BP systolic 138–174; BP diastolic 62–104; PULSE 58–84; RESP 15–18; TEMP 36.2–37.1; O2SAT 94–100; BMI 29.0
[2023-02-24 06:28] LABS: Absolute Lymphocyte Count 1.61 X10^3/uL (0.83-4.51); Absolute Neutrophil Count 4.4 X10^3/uL (2.0-7.7); Basophil# 0.07 X10^3/uL; Eosinophil# 0.14 X10^3/uL; Hematocrit 42.4 % (37-47); Hemoglobin 13.7 g/dL (12.0-15.0); Lymphocyte # 1.61 X10^3/ul (0.83-4.51); Lymphocyte % 23.2 % (19-41); Mean Corp Hgb Conc 32.3 g/dL (32-36); Mean Platelet Vol. 10.1 fl (6.2-12.0); Monocyte# 0.66 X10^3/uL; Monocyte% 9.5 % (0-10); NRBC Flagged by Analyzer 0 % (0-5); Neutrophil # 4.43 X10^3/uL (2.7-7.7); Neutrophil % 63.9 % (47-70); Platelet Count 252 K/mm3 (150-450); RBC Distribution Width CV 12.7 % (11.6-14.6); RBC Distribution Width SD 43.8 fl (35.1-43.9); Red Blood Count 4.56 M/mm3 (4.2-5.4); White Blood Count 6.9 K/mm3 (4.4-11.0)
[2023-02-24 07:20] LABS: AST(SGOT) 23 U/L (15-37); Alanine Aminotransfer ALT/SGPT 21 U/L (13-56); Albumin, Serum 3.1 g/dL (3.2-5.0); Alkaline Phosphatase 62 U/L (45-117); Anion Gap 6 (5-15); BUN 10 mg/dL (7-18); BUN/Creat Ratio 18.8 RATIO (10-20); Calcium,Total 8.7 mg/dL (8.5-10.1); Chloride 105 mmol/L (98-107); Creatinine, Serum 0.53 mg/dL (0.55-1.02); EST Glomerular Filtration Rate 124 mL/min (>60); Est Glom Filt Rate - Afr Amer 150 mL/min (>60); Estimated Creatinine Clearance 93.38 ml/min; Globulin 3.1 g/dL (2.2-4.2); Glucose 99 mg/dL (74-106); Potassium 3.4 mmol/L (3.5-5.1); Protein, Total 6.2 g/dL (6.4-8.2); Sodium Level 141 mmol/L (136-145); Thyroid Stim Hormone (TSH) 1.66 uIU/mL (0.358-3.74)
--- NOTE | 2023-02-24 09:50 | PCM.PN.HOSP ---
Reason for Visit Reason for Visit: Nausea and vomiting Subjective Subjective Patient is feeling well. Remains on room air. No episodes of nausea vomiting or diaphoresis since admission. Asking if she can eat regular food. I indicated to her right start a cardiac diet today however will be n.p.o. after midnight for cardiac catheterization tomorrow. Has no complaints at this time. Reviewed medication changes with her the need for goal directed therapy with regards to her heart failure. Objective Data Objective Data Vital Signs: Vital Signs Temp Pulse Resp BP Pulse Ox O2 Del Method O2 Flow Rate 98.4 F 58 L 18 174/62 H 98 Room Air 2 02/24/23 03:55 02/24/23 03:55 02/24/23 03:55 02/24/23 03:55 02/24/23 07:20 02/24/23 08:20 02/23/23 08:15 Oxygen Flow Rate (L/min) 2 Oxygen Delivery Method Room Air Weight: 74.5 kg Body Mass Index (BMI) 29.0 Intake & Output: Intake and Output for Last 24 Hours 02/22/23 02/23/23 02/24/23 23:59 23:59 23:59 Intake Total 1364 / 1364 1640.45 / 1900.45 320 / 320 Output Total 2200 / 2400 270 / 270 Balance 1364 / 1364 -559.55 / -499.55 50 / 50 Lab / Micro Data Result Diagrams: 02/24/23 05:42 02/24/23 05:42 Labs: Laboratory Results - last 24 hr 02/22/23 08:13: Hemoglobin A1c 5.7 H 02/23/23 03:18: Triglycerides 62, Cholesterol 187, LDL Cholesterol 135 H, VLDL Cholesterol 12, HDL Cholesterol 40 02/24/23 05:42: WBC 6.9, RBC 4.56, Hgb 13.7, Hct 42.4, MCV 93.0, MCH 30.0, MCHC 32.3, RDW Std Deviation 43.8, RDW Coeff of Ramos 12.7, Plt Count 252, MPV 10.1, Immature Gran % (Auto) 0.400, Neut % (Auto) 63.9, Lymph % (Auto) 23.2, [place] % (Auto) 9.5, Eos % (Auto) 2.0, Baso % (Auto) 1.0, Absolute Neuts (auto) 4.4, Absolute Lymphs (auto) 1.61, Nucleated RBC % 0 02/24/23 05:42: Sodium 141, Potassium 3.4 L, Chloride 105, Carbon Dioxide 30.0, Anion Gap 6, BUN 10, Creatinine 0.53 L, Estim Creat Clear Calc 93.38, Est GFR (MDRD) Af Amer 150, Est GFR (MDRD) Non-Af 124, BUN/Creatinine Ratio 18.8, Glucose 99, Calcium 8.7, Magnesium 2.0, Total Bilirubin 0.80, AST 23, ALT 21, Alkaline Phosphatase 62, Total Protein 6.2 L, Albumin 3.1 L, Globulin 3.1, Albumin/Globulin Ratio 1.0, TSH 1.66 Micro: Microbiology 02/23/23 03:18 Urine, Clean Catch Streptococcus pneumoniae Antigen (M - Final 02/23/23 03:18 Urine, Clean Catch Legionella Antigen - Final Physical Exam Const alert, oriented x3, no apparent distress and well nourished Constitutional Narrative: Overweight, upper middle-aged, white female, sitting up in bed, appears comfortable and nontoxic, breakfast tray at bedside, patient asking for regular food HEENT head/scalp atraumatic, moist oral mucous membranes and oropharynx normal HEENT Narrative: Mallampati 2 Head and Scalp: normocephalic Resp normal respiratory effort, no retractions, no use of accessory muscles and clear to auscultation bilaterally Auscultation: Negative for rales, rhonchi or wheezes Cardio regular rate, regular rhythm, S1 normal heart sound, S2 normal heart sound, no murmurs, no rub, no gallops and no clicks GI normal to inspection, nondistended, normoactive bowel sounds and soft to palpation Extremity no clubbing, cyanosis or edema Extremity Narrative: Pedal pulses, radial pulses 2+ Neuro oriented x3, moves all extremities and no focal motor deficits Speech: speech normal Psych affect normal Psych Narrative: Extremely pleasant, appropriate Assessment & Plan Assessment/Plan (1) Acute on chronic combined systolic and diastolic heart failure: (2) Hypoxia: (3) Nausea & vomiting: QUALIFIERS: Vomiting type: unspecified Qualified Code(s): R11.2 - Nausea with vomiting, unspecified PLAN: Plan Acute on chronic combined heart failure -Acute component resolved -Patient now on room air -Continue Coreg 6.25 daily -Continue but increase lisinopril from 5 mg daily to 20 g daily -Continue Aldactone 12.5 mg daily -Titrate up all goal-directed therapy as able -Add Jardiance 10 mg daily -Echocardiogram done on 02/21/2023 demonstrated an EF of 15% with severe global hypokinesis of the LV and stage II diastolic dysfunction -Enzymes are unremarkable -Start cardiac diet with sodium restriction -Continue daily weights -Continue I's and O's -Dietitian is following -Cardiology consulted and plan is for catheterization on Saturday Hypoxia -Resolved -Was secondary to pulmonary edema due to the above Lactic acidosis -Resolved Chronic nausea and vomiting -No episodes since admission and asking for regular diet -EGD done by Dr. Cedeño toward the end of 2021 early this year and showed areas of irritation in her stomach but was otherwise unremarkable except for a hiatal hernia -It does appear that patient has had multiple EGDs upon review of previous documentation with regards to this -Transition to oral Protonix 40 mg daily -Advance to cardiac diet and n.p.o. after midnight for cardiac catheterization tomorrow -After discussion with her it sounds like most of these episodes are related to flushing sensation she gets at which point she gets diaphoretic and then has nausea and vomiting afterwards -Hemoglobin remains stable -GI is consulted-await input however I do not think at this point she needs any repeat intervention or imaging as I suspect this may be cardiac related CAD/HTN/HPL -Hold home Plavix until cath done in case patient needs to be referred for any surgical intervention -Continue aspirin 81 mg daily -Lipid profile shows elevated LDL at 135 -Continue atorvastatin 80 mg -Continue Coreg/lisinopril/Aldactone as noted above and monitor blood pressure -Hold home agents -Previous RCA stent placed in 2006 GERD/hiatal hernia -Continue Protonix Depression -Continue Effexor Tobacco abuse -Recommend cessation -Patient denies need for any nicotine replacement therapy at this time DVT prophylaxis -Continue subcu Lovenox CODE STATUS Full code Charges/Coding Visit Charges Inpatient E&M: 17603 Subs Hosp L2
[2023-02-24] MEDS: Spironolactone 25 MG Tablet 12.5 MG PO ×2 (10:03→22:46)
[2023-02-24] MEDS: Furosemide 40 MG Tablet PO (10:03)
[2023-02-24] MEDS: Carvedilol 6.25 MG Tablet PO ×2 (10:03→22:46)
[2023-02-24] MEDS: Potassium Chloride Oral Tablet 20 MEQ 40 MEQ PO (10:08)
[2023-02-24] MEDS: Empagliflozin 10 MG Tablet PO (10:08)
[2023-02-24] MEDS: Lisinopril 20 MG Tablet PO (10:08)
[2023-02-24] MEDS: Pantoprazole Sodium 40 MG Tablet PO (10:19)
[2023-02-24] MEDS: buPROPion (SR) 150 MG Tablet.SA PO ×2 (13:38→22:46)
[2023-02-24] MEDS: Ensure Clear 120 ML Liquid PO ×2 (13:40→17:01)
[2023-02-24] MEDS: Atorvastatin Calcium 80 MG Tablet PO (22:46)
[2023-02-24] MEDS: Clopidogrel Bisulfate 75 MG Tablet PO (22:46)
[2023-02-25] VITALS (12 sets, daily range): BP systolic 120–167; BP diastolic 67–99; PULSE 60–83; RESP 14–18; TEMP 36.6–36.9; O2SAT 95–100; BMI 28.6
--- NOTE | 2023-02-25 05:55 | EKG12_ITS ---
Test Reason : AM EKG Blood Pressure : / mmHG Vent. Rate : 075 BPM Atrial Rate : 075 BPM P-R Int : 158 ms QRS Dur : 096 ms QT Int : 432 ms P-R-T Axes : 025 059 246 degrees QTc Int : 482 ms Normal sinus rhythm Left ventricular hypertrophy with repolarization abnormality ( Sokolow-Porter ) Prolonged QT Abnormal ECG When compared with ECG of 22-FEB-2023 17:37, MANUAL COMPARISON REQUIRED, DATA IS UNCONFIRMED Confirmed by BABITA CLAY, CASSIE ([id number]), video tape editor RENEE ROBERSON ([id number]) on 02/26/2023 9:54:30 AM Referred By: Confirmed By:CASSIE JC MD
[2023-02-25 06:31] LABS: Anion Gap 6 (5-15); BUN 15 mg/dL (7-18); BUN/Creat Ratio 23.4 RATIO (10-20); Calcium,Total 9.3 mg/dL (8.5-10.1); Chloride 103 mmol/L (98-107); Creatinine, Serum 0.64 mg/dL (0.55-1.02); EST Glomerular Filtration Rate 100 mL/min (>60); Est Glom Filt Rate - Afr Amer 121 mL/min (>60); Estimated Creatinine Clearance 77.33 ml/min; Glucose 97 mg/dL (74-106); Magnesium 1.9 mg/dL (1.6-2.6); Potassium 3.6 mmol/L (3.5-5.1); Sodium Level 139 mmol/L (136-145)
[2023-02-25] MEDS: Carvedilol 6.25 MG Tablet PO (06:31)
[2023-02-25] MEDS: Lisinopril 20 MG Tablet PO (06:31)
--- NOTE | 2023-02-25 08:47 | PCM.PN.CARD ---
Subjective Subjective Patient seen and evaluated. Underwent cardiac catheterization today. Objective Data Vital Signs: Vital Signs Temp Pulse Resp BP Pulse Ox O2 Del Method O2 Flow Rate 98.0 F 80 18 165/95 H 95 Room Air 2 02/25/23 06:29 02/25/23 06:29 02/25/23 06:29 02/25/23 06:29 02/25/23 06:29 02/25/23 07:51 02/23/23 08:15 Oxygen Flow Rate (L/min) 2 Oxygen Delivery Method Room Air Weight: 161 lb 9.581 oz Body Mass Index (BMI) 28.6 Intake & Output: Intake and Output for Last 24 Hours 02/23/23 02/24/23 02/25/23 23:59 23:59 23:59 Intake Total 1640.45 / 1900.45 1411.2 / 1411.2 0 / 0 Output Total 2200 / 2400 270 / 270 0 / 0 Balance -559.55 / -499.55 1141.2 / 1141.2 0 / 0 Lab / Micro Data Result Diagrams: 02/24/23 05:42 02/25/23 04:45 Labs: Laboratory Results - last 24 hr 02/25/23 04:45: Sodium 139, Potassium 3.6, Chloride 103, Carbon Dioxide 30.0, Anion Gap 6, BUN 15, Creatinine 0.64, Estim Creat Clear Calc 77.33, Est GFR (MDRD) Af Amer 121, Est GFR (MDRD) Non-Af 100, BUN/Creatinine Ratio 23.4 H, Glucose 97, Calcium 9.3, Magnesium 1.9 Cardiology Labs/Tests 02/25/23 04:45: Sodium 139, Potassium 3.6, Chloride 103, Carbon Dioxide 30.0, Anion Gap 6, BUN 15, Creatinine 0.64, Est GFR (MDRD) Af Amer 121, Est GFR (MDRD) Non-Af 100, BUN/Creatinine Ratio 23.4 H, Glucose 97, Calcium 9.3, Magnesium 1.9 Rhythm: EKG: ECHO: Stress Test: Cardiac Cath: PCI: CT Surgery: Holter monitor: EPS: PPM: CXR: Chest CT Scan: Physical Exam Const alert, oriented x3 and no apparent distress General Appearance: cooperative HEENT hearing grossly normal bilaterally Head and Scalp: atraumatic Eyes EOMs intact bilaterally Neck General: normal visual inspection Chest inspection of chest normal and palpation of chest normal Resp normal respiratory effort Auscultation: clear to auscultation bilaterally Cardio regular rate, regular rhythm, S1 normal heart sound and S2 normal heart sound Jugular Venous Distention: JVD GI normal to inspection, nondistended, normoactive bowel sounds Extremity normal capillary refill and no pedal edema Peripheral Pulses: Yes pulses 2+ throughout and femoral pulses present Skin no rashes or lesions noted Neuro oriented x3 and CN's II-XII intact bilaterally Psych Appearance: grossly normal and appropriate Assessment & Plan Assessment/Plan (1) Acute on chronic combined systolic and diastolic heart failure: PLAN: She does have evidence of chronic congestive heart failure. Her ejection fraction is markedly reduced. At the moment we will continue her on her current medical therapy as follows: Carvedilol and uptitrate as appropriate Lasix daily Spironolactone Continue JOSE J ARB or switch to Entresto (2) Coronary artery disease: PLAN: She does have coronary disease status post PCI of the right coronary artery remotely. Cardiac catheterization today demonstrated restenosis of the above with about 80% stenosis. We will discuss with interventionalists about rePCI. LAD and left circumflex artery appeared to be nonobstructive. (3) Combined systolic and diastolic heart failure: QUALIFIERS: Heart failure chronicity: acute Qualified Code(s): I50.41 - Acute combined systolic (congestive) and diastolic (congestive) heart failure PLAN: She does have evidence of severe left ventricular systolic dysfunction. Therapeutic measures as noted above. (4) HTN (hypertension): PLAN: Her blood pressure is under suboptimal control. We will optimize her medications with the above. (5) Dyslipidemia: PLAN: Continue with aggressive risk factor modification with high intensity statin. Thank you for allowing me to participate in the care of your patient. Please don't hesitate to call if any issues arise.
--- NOTE | 2023-02-25 08:59 | CL.D_ITS ---
Patient Name: VISHAL KIDD Study Date: 02/25/2023 Performing: Jose Antonio Reeves MD Ht: 63 inches 160.02 cm : 1960 Wt: 161.6 lbs 73.3 kg Age: 62 Gender: female BSA: 1.77 PROCEDURE(S) PERFORMED DC02-([id number])[facility] CLINICAL PROFILE AND INDICATIONS Indications: Cardiomyopathy Heart Failure: NYHA Class: 3, Newly Diagnosed: Yes, Heart Failure Type: Systolic Stress/Imaging Stress/Image Study Performed: No CAD Presentations: Other: SOB CONCLUSIONS High-grade in-stent stenosis of the right coronary artery with mild disease noted in the left anterior descending artery and circumflex artery. RECOMMENDATIONS Referred for immediate PCI May need to consider ICD DESCRIPTION OF PROCEDURE The patient arrived to the procedure lab. The risks and benefits of the procedure as well as a full description of our services here and current unavailability of surgical backup were fully explained to the patient and/or their significant other prior to the catheterization. The Timeout was completed, verifying the correct patient and procedure. The patient's procedural site was prepped and draped in the usual fashion. Local anesthetic was given subcutaneously to right radial region with Lidocaine 2%. Using a modified Seldinger technique, arterial access was obtained via the right radial artery, a 6Fr sheath was inserted. Left Coronary Artery selective angiography was performed in multiple views using a 5 Fr. 4.0 [place] catheter. Right Coronary Artery selective angiography was then performed in multiple views using a 5 Fr. 4.0 [place] catheter. Left Ventriculography was performed in CAO projection using a 5 Fr. [place] catheter. CORONARY ANGIOGRAPHY DOMINANCE: Right Dominant LEFT HEART ASSESSMENT Left Ventricular Ejection Fraction: by LV Gram 20 % Global Hypokinesis - Severe Depressed Left Ventricular systolic function LEFT MAIN: Mild calcification, Mild luminal irregularities LEFT ANTERIOR DESCENDING ARTERY: Mild calcification, Moderate luminal irregularities up to 50% CIRCUMFLEX ARTERY: Mild luminal irregularities less than 30% RIGHT CORONARY ARTERY: Previously placed stent in the mid right coronary artery with 80% in-stent stenosis noted. Mild to moderate calcification is present. COMPLICATIONS PROCEDURE MEDICATIONS Versed 1 mg IV Fentanyl 50 mcg IV Versed 1 mg IV Oxygen: 2 L/min via nasal cannula Baby Aspirin (81mg) 1 Tabs PO @ 02/25/2023 08:12:40 Heparin given IA 02/25/2023 08:29:21 SUMMARY OF HEMODYNAMIC DATA Time AIR REST ECG 08:25:24 AO 134/81 (102) SA 08:30:23 LV 145/11, 15 08:37:31 LV 153/9, 15 08:37:39 LV 147/11, 16 08:38:24 LVp 154/13, 18 08:38:33 LV 149/12, 17 08:38:34 AOp 128/-7 (68) 08:38:40 LVp 152/12, 18 08:38:40 Signed By Jose Antonio Reeves MD On 02/25/2023 08:58:32 Jose Antonio Reeves MD
--- NOTE | 2023-02-25 09:15 | PN.HOSP_ITS ---
Reason for Visit Reason for Visit: Nausea/vomiting Subjective Subjective No issues overnight. Cardiac catheterization done today that shows predominantly nonischemic cardiomyopathy however she did have some in-stent stenosis of the RCA stent which was placed in 2006. Objective Data Objective Data Vital Signs: Vital Signs Temp Pulse Resp BP Pulse Ox O2 Del Method O2 Flow Rate 98.0 F 80 18 165/95 H 95 Room Air 2 02/25/23 06:29 02/25/23 06:29 02/25/23 06:29 02/25/23 06:29 02/25/23 06:29 02/25/23 07:51 02/23/23 08:15 Oxygen Flow Rate (L/min) 2 Oxygen Delivery Method Room Air Weight: 73.3 kg Body Mass Index (BMI) 28.6 Intake & Output: Intake and Output for Last 24 Hours 02/23/23 02/24/23 02/25/23 23:59 23:59 23:59 Intake Total 1640.45 / 1900.45 1411.2 / 1411.2 0 / 0 Output Total 2200 / 2400 270 / 270 0 / 0 Balance -559.55 / -499.55 1141.2 / 1141.2 0 / 0 Lab / Micro Data Result Diagrams: 02/24/23 05:42 02/25/23 04:45 Labs: Laboratory Results - last 24 hr 02/25/23 04:45: Sodium 139, Potassium 3.6, Chloride 103, Carbon Dioxide 30.0, Anion Gap 6, BUN 15, Creatinine 0.64, Estim Creat Clear Calc 77.33, Est GFR (MDR D) Af Amer 121, Est GFR (MDRD) Non-Af 100, BUN/Creatinine Ratio 23.4 H, Glucose 97, Calcium 9.3, Magnesium 1.9 Micro: Microbiology 02/23/23 03:18 Urine, Clean Catch Streptococcus pneumoniae Antigen (M - Anne l 02/23/23 03:18 Urine, Clean Catch Legionella Antigen - Final Physical Exam Narrative Physical exam: General: Well-nourished, well-developed. Head: Normocephalic, atraumatic, no tenderness Eyes: Vision is grossly intact. EOMI ENT, no trauma, moist mucous membranes, no rhinorrhea Neck: Nontender, No thyromegaly. CVS: Tachycardia. S1-S2 present. No murmur, gallop or rub. Respiratory : Diminished, chest wall nontender Abdomen: Soft, mildly tender at epigastric area, hypoactive bowel sounds. : Deferred Back: Nontender, no CVA tenderness. Extremities: Nontender full range of motion, no trauma Skin: Normal color, no trauma, abrasions Neuro: Alert, oriented, cranial nerves II through XII grossly intact. Psychiatry: Normal mood. Normal affect. Not depressed. Not anxious. Const alert, oriented x3, no apparent distress and well nourished Constitutional Narrative: Overweight, upper middle-aged, white female, sitting up in bed, appears comfortable and nontoxic, breakfast tray at bedside, patient asking for regular food HEENT head/scalp atraumatic, moist oral mucous membranes and oropharynx normal Resp normal respiratory effort, no retractions, no use of accessory muscles and clear to auscultation bilaterally Auscultation: Negative for rales, rhonchi or wheezes Cardio regular rate, regular rhythm, S1 normal heart sound, S2 normal heart sound, no murmurs, no rub, no gallops and no clicks GI normal to inspection, nondistended, normoactive bowel sounds and soft to palpation Extremity no clubbing, cyanosis or edema Extremity Narrative: Pedal pulses, radial pulses 2+ Neuro oriented x3, moves all extremities and no focal motor deficits Speech: speech normal Psych affect normal Psych Narrative: Extremely pleasant, appropriate Assessment & Plan Assessment/Plan (1) Acute on chronic combined systolic and diastolic heart failure: (2) Hypoxia: (3) Nausea & vomiting: QUALIFIERS: Vomiting type: unspecified Qualified Code(s): R11.2 - Nausea with vomiting, unspecified PLAN: Plan Acute on chronic combined heart failure -Acute component resolved -Patient remains on room air -Cardiac catheterization reveals predominantly nonobstructive disease with only some in-stent stenosis of her previous PCI in her RCA which was addressed today -Patient is on optimal therapy for the most part as noted below--> continue with noted changes -Continue Coreg but increase from 6.25 to 12.5 mg daily -Continue lisinopril 20 mg daily--> consider transition to Entresto at discharge -Continue Aldactone but increase to 25 mg p.o. twice daily -Continue Jardiance 10 mg daily -Echocardiogram done on 02/21/2023 demonstrated an EF of 15% with severe global hypokinesis of the LV and stage II diastolic dysfunction -Enzymes are unremarkable -Continue cardiac diet with sodium restriction after cardiac catheterization -Continue daily weights -Continue I's and O's -Dietitian is following -Cardiology is following and appreciate input -Discussed with Dr. Reeves today Chronic nausea and vomiting -No episodes since admission -EGD done by Dr. Cedeño toward the end of 2021 early this year and showed areas of irritation in her stomach but was otherwise unremarkable except for a hiatal hernia -It does appear that patient has had multiple EGDs upon review of previous documentation with regards to this -Continue oral Protonix -After discussion with her it sounds like most of these episodes are related to flushing sensation she gets at which point she gets diaphoretic and then has nausea and vomiting afterwards -Hemoglobin remains stable -GI evaluated the patient this morning--> await plan CAD/HTN/HPL -Anticipate the Plavix versus Brilinta will been reinitiated after cath today -Continue aspirin 81 mg daily -Lipid profile shows elevated LDL at 135 -Continue atorvastatin 80 mg -Continue Coreg/lisinopril/Aldactone as noted above and monitor blood pressure -Hold home agents -Previous RCA stent placed in 2006 GERD/hiatal hernia -Continue Protonix Depression -Continue Effexor Tobacco abuse -Recommend cessation -Patient denies need for any nicotine replacement therapy at this time DVT prophylaxis -Continue subcu Lovenox CODE STATUS Full code Charges/Coding Visit Charges Inpatient E&M: 49726 Subs Hosp L2
[2023-02-25] MEDS: Spironolactone 25 MG Tablet PO ×2 (10:52→21:09)
[2023-02-25] MEDS: Furosemide 40 MG Tablet PO (10:52)
[2023-02-25] MEDS: Pantoprazole Sodium 40 MG Tablet PO (10:52)
[2023-02-25] MEDS: Potassium Chloride Oral Tablet 20 MEQ PO (10:52)
[2023-02-25] MEDS: Empagliflozin 10 MG Tablet PO (10:53)
[2023-02-25] MEDS: buPROPion (SR) 150 MG Tablet.SA PO ×2 (10:53→21:10)
[2023-02-25] MEDS: Ensure Clear 120 ML Liquid PO ×3 (10:58→21:10)
[2023-02-25] MEDS: Carvedilol 12.5 MG Tablet PO ×2 (10:59→21:09)
--- NOTE | 2023-02-25 11:40 | PCIREPORT_ITS ---
PCI Cardiac Cath Report PCI Report: PCI cardiac cath report; 1. Successful PCI of the culprit, mid RCA 80% stenosis With predilatation using NC balloon 3 x 15 mm, followed by placement of drug- eluting stent resolute Mcdowell 3.5 x 30 mm, postdilated with 3.5 x 20 mm NC balloon and achievement of excellent result With reduction of stenosis from 80% to 0% and maintenance of DEMARCUS-3 pre and postprocedure Successful placement of TR band to close the right radial artery arteriotomy site. Preprocedure diagnosis; 62-year-old patient seen and evaluated by her primary hose tubing backer Dr. Reeves. Patient has history of CAD with prior PCI and stent 2007. Also has acute on chronic systolic and diastolic heart failure. Patient has severe LV systolic dysfunction ejection fraction of around 20 I reviewed the cardiac catheterization findings with the primary hose tubing backer Dr. Reeves Findings cardiac catheterization, revealed high-grade in-stent restenosis of the right coronary artery with mild disease noted in the left anterior descending and the circumflex.. Consent; Risk and benefit of the procedure which is a high risk PCI due to severe LV dysfunction discussed with the patient and informed consent obtained. Interventional equipment used; 1. 6 [place] JR4 guide catheter, 6 [place] guide liner 2. 3 x 15 mm NC balloon/emerge 3. 3.5 x 30 mm drug-eluting stent/resolute Teto Rx 4. 3.5 x 20 mm NC Emerge MR balloon. Medication used in the Rehabilitation Assistant; Heparin was used as an anticoagulant With acceptable ACT level above 250 Patient also was given additional doses of Plavix she been on Plavix 75 mg and aspirin 325 mg she was given additional 3 tablets of Plavix. Procedure in detail; Under fluoroscopic guidance we will proceed with a 6 [place] JR4 guide catheter from the right radial artery approach Cannulated the RCA without difficulty Following this angiographic view of the RCA was obtained identified the culprit lesion which is in-stent stenosis of the mid RCA as well as the stenosis proximally is a calcified vessel. Requiring longer time more time in the Rehabilitation Assistant. Then we will proceed with the balloon to predilate We used a guide liner, were able to successfully to place a drug-eluting stent And then we postdilated with no complication Postprocedure DEMARCUS-3 flow obtained with reduction of stenosis to 0% Conclusion recommendations; 1. Successful PCI of the culprit which is severe in-stent restenosis of the RCA noncalcified vessel high risk patient with a EF of 20%. 2. Patient to continue on DAPT Plavix 75 g daily in addition to low-dose aspirin 81 mg daily for 1 year 3. Patient is scheduled for cardiac rehab program at [facility] 4. Patient to follow-up with the primary hose tubing backer, Dr. Reeves for continuation of cardiac care and clinical follow-up. 5. Noted she had a lesion in the distal RCA which is moderate and that can be evaluated as an outpatient. No complication in the Rehabilitation Assistant. Roscoe Joseph MD,FACC,[facility] [place]
--- NOTE | 2023-02-25 12:00 | EKG12_ITS ---
Test Reason : Blood Pressure : / mmHG Vent. Rate : 099 BPM Atrial Rate : 099 BPM P-R Int : 156 ms QRS Dur : 098 ms QT Int : 384 ms P-R-T Axes : 066 066 -29 degrees QTc Int : 492 ms Sinus rhythm with frequent Premature ventricular complexes Left ventricular hypertrophy with repolarization abnormality Prolonged QT Abnormal ECG Confirmed by BABITA CLAY, CASSIE ([id number]), graphics editor RENEE ROBERSON ([id number]) on 02/26/2023 10:09:30 AM Referred By: ASHVIN Confirmed By:CASSIE JC MD
[2023-02-25 12:57] LABS: ACT Activated Clotting Time 251 sec (74-137)
--- NOTE | 2023-02-25 13:08 | CRPHASE1 ---
Patient Communication Former Patient:: Phase I Guide to Cardiac Rehab Given to Patient:: Yes Cardiac Rehab Facility Choice List Given to Patient:: Yes Choice Program [facility] CR PHII:: Communication Given to CR Weight Inspector:: Roscoe Joseph Cardiac Rehabilitation Info Cardiac Rehabilitation Program Information: Cardiac Rehab The cardiac rehab team at [facility] consists of highly skilled exercise physiologists, nurses, respiratory therapists and physicians working together with you. Our purpose is to help you have a full recovery and achieve the goals you set for yourself. Over the years many of our patients have returned to activities they assumed they would never do again! We can help restore your confidence and motivation to make lifestyle changes that can have a significant impact on your health and quality of life! We can help answer questions and concerns you may have about exercise, lifestyle, medications, diet, stress and anxiety which are common following a hospitalization. WE monitor ECG and vital signs during exercise and discuss your progress with you and report to your physician(s). Cardiac Rehab is proven to help reduce readmissions, improve functional capacity and lower recurrence of problems with your heart. Our Cardiac Rehab program is Certified by the [place] [employer] Pulmonary [employer] (AACVPR) and Accredited by the [place] [employer] through our [facility]. You can contact us at . We invite you to call us with your questions or to get started in our program. If you have other questions or concerns be sure to ask your physician/provider during your follow-up visit. WE look forward to seeing you!
--- NOTE | 2023-02-25 13:10 | CRPH1.INSTRU ---
General Education CAD and cardiac anatomy and function:: Patient communicates acknowledgment Explanation of diagnoses and procedures:: Patient communicates acknowledgment Sign/Symptoms of [place]:: Patient communicates acknowledgment Antiplatelet therapy: Patient communicates acknowledgment Proper use of NTG-SL: Patient communicates acknowledgment Emergency procedures and activation of EMS: Patient communicates acknowledgment Compliance of all prescribed medications: Patient communicates acknowledgment Smoking Patient Nicotine/Smoking Risk Factors Are:: Cigarettes Nicotine/Smoking Response Code:: Patient communicates acknowledgment Dyslipidemia Dyslipidemia Response Code:: Patient communicates acknowledgment Hypertension Recommendations Include:: BP <130/80 if diabetic Hypertension:: Patient communicates acknowledgment Heart Disease Patient Heart Disease Risk Factors Are:: Family history of heart disease < 65 years old, Previous cardiac event Heart Disease Response Code:: Patient communicates acknowledgment Diabetes Diabetes:: Patient communicates acknowledgment
--- NOTE | 2023-02-25 16:35 | CON.PCM.GI_ITS ---
HPI Consult Data Date of Consult: 02/25/23 HPI Narrative Reason for Consultation: Nausea and Vomiting HPI Narrative: VISHAL KIDD, is a 62 F who presents with intractable vomiting for the last 3 hours, EMS gave her Zofran which helped a little but she is still having dry heaving.? She states this has been going on for 5 or 6 months.? She has missed a lot of work because of days like this.? She denies any chest pain, shortness of breath, fevers, chills, she states oftentimes she gets this every day, this morning it started around 5:30 AM spontaneously out of nowhere which is common.? It was before she ate. She states she recently was diagnosed with heart problems.? She had a stent remotely in one of her coronaries.? She had a recent outpatient EKG by her PCP that was abnormal so she was sent to cardiology at [place] where she had been established although her environmental compliance engineer retired, they ordered an outpatient echocardiogram which displayed a decreased ejection fraction. I was asked to see her due to intractable nausea vomiting that she has been experiencing for multiple years. She does drink alcohol or smoke cigarettes. She has a history of CAD and possible peripheral vascular disease along with a history of hiatal hernia. She is on multiple upper scopes with no etiology to her nausea vomiting. She has had no functional studies. She denies any history of diabetes. [facility] Medical History (Updated 02/25/23 @ 08:[address] Jose Antonio Reeves MD) Dyslipidemia Hiatal hernia HTN (hypertension) Nausea and vomiting Home Medications aspirin 325 mg tablet 325 mg PO QHS 06/06/16 [History Last Taken 02/21/23] clopidogrel 75 mg tablet 75 mg PO QHS 06/06/16 [History Last Taken 02/21/23] metoprolol tartrate 50 mg tablet 75 mg PO BID 06/06/16 [History Last Taken 02/21/23] rosuvastatin 10 mg tablet 20 mg PO QHS 06/06/16 [History Last Taken 02/21/23] pantoprazole 40 mg tablet,delayed release 40 mg PO DAILY #30 tabs 07/12/22 [Rx Last Taken 02/21/23] buspirone 10 mg tablet 10 mg PO TID 02/22/23 [History Last Taken 02/21/23] calcium carb-ergocalciferol (vit D2) 600 mg calcium-200 unit tablet 1 tab PO BID 02/22/23 [History Last Taken Unknown] cholecalciferol (vitamin D3) 25 mcg (1,000 unit) capsule (Vitamin D3) 50 mcg PO DAILY Check with primary doctor 02/22/23 [History Last Taken Unknown] cyanocobalamin (vitamin B-12) 1,000 mcg tablet (Vitamin B-12) 5,000 mcg PO DAILY 02/22/23 [History Last Taken 02/21/23] multivitamin 1 tab PO DAILY 02/22/23 [History Last Taken Unknown] valsartan 320 mg-hydrochlorothiazide 12.5 mg tablet (Diovan HCT) 1 tab PO DAILY 02/22/23 [History Last Taken 02/21/23] venlafaxine 150 mg capsule,extended release 24 hr (Effexor XR) 150 mg PO DAILY 02/22/23 [History Last Taken Unknown] Allergy/AdvReac Type Severity Reaction Status Date / Time No Known Allergies Allergy Verified 07/12/22 10:46 Family History (Updated 02/22/23 @ 21:[address] Julio César Arndt MD) Other Heart disease Surgical History History of appendectomy Hx of cholecystectomy Stented coronary artery Social History Smoking Status: Current some day smoker tobacco type: cigarettes ROS ROS Narrative Pertinent positives and pertinent negatives as noted in HPI. All other systems were reviewed and are negative Physical Exam Const alert, oriented x3, no apparent distress and well nourished HEENT head/scalp atraumatic, moist oral mucous membranes and oropharynx normal HEENT Narrative: Dentition is fair, Mallampati is 2, no thrush Head and Scalp: normocephalic Resp normal respiratory effort, no retractions, no use of accessory muscles and clear to auscultation bilaterally Auscultation: Negative for rales, rhonchi or wheezes Cardio regular rate, regular rhythm, S1 normal heart sound, S2 normal heart sound, no murmurs, no rub, no gallops and no clicks GI normal to inspection, nondistended, normoactive bowel sounds and soft to palpation Extremity no clubbing, cyanosis or edema Extremity Narrative: Pedal pulses, right radial artery with post cath compression in place Neuro oriented x3, moves all extremities and no focal motor deficits Speech: speech normal Psych affect normal Psych Narrative: Extremely pleasant, appropriate Lab / Micro Data Result Diagrams: 02/24/23 05:42 02/25/23 04:45 Labs: Laboratory Results - last 24 hr 02/25/23 04:45: Sodium 139, Potassium 3.6, Chloride 103, Carbon Dioxide 30.0, Anion Gap 6, BUN 15, Creatinine 0.64, Estim Creat Clear Calc 77.33, Est GFR (MDRD) Af Amer 121, Est GFR (MDRD) Non-Af 100, BUN/Creatinine Ratio 23.4 H, Glucose 97, Calcium 9.3, Magnesium 1.9 02/25/23 09:47: Activated Clotting Time 251 H Micro: Microbiology 02/22/23 22:05 Blood Culture (Wb) - Right Forearm Blood Culture - Preliminary No growth in 48 hours. 02/22/23 22:00 Blood Culture (Wb) - Anticubital Right Blood Culture - Preliminary No growth in 48 hours. Assessment & Plan Assessment/Plan (1) Dilated cardiomyopathy: (2) Heart failure with reduced ejection fraction: (3) Combined systolic and diastolic heart failure: QUALIFIERS: Heart failure chronicity: acute Qualified Code(s): I50.41 - Acute combined systolic (congestive) and diastolic (congestive) heart failure (4) Nausea & vomiting: QUALIFIERS: Vomiting type: unspecified Qualified Code(s): R11.2 - Nausea with vomiting, unspecified (5) Pneumonia: (6) Sepsis: (7) Acute on chronic combined systolic and diastolic heart failure: (8) Hypoxia: (9) Coronary artery disease: PLAN: Plan The differential diagnosis for abdominal pain does include cardiac ischemia, peripheral vascular disease secondary to alcohol, cigarette smoking and history of coronary artery disease. Also differential diagnosis does include functional disease such as gastroparesis, bacterial overgrowth, peptic ulcer disease, sphincter of Oddi syndrome. She will need CT angiography of the abdomen pelvis, capsule study., Biochemical work-up for autoimmune vasculitis affecting the GI tract. Think she needs to be emergently scoped at this time as she is having intractable nausea vomiting. She will be on Plavix and aspirin. Recommend PPI therapy 40 mg twice a day and Carafate 1 g p.o. 3 times daily. Recommend gastric emptying study and EGD with Otriz placement. Charges/Coding Visit Charges Inpatient E&M: 89514 Init Hosp L3
[2023-02-25] MEDS: Atorvastatin Calcium 80 MG Tablet PO (21:10)
[2023-02-25] MEDS: Clopidogrel Bisulfate 75 MG Tablet PO (21:10)
[2023-02-25] MEDS: Potassium Chloride Oral Tablet 20 MEQ 40 MEQ PO (23:54)
[2023-02-26 03:00] VITALS: BP 117/69; PULSE 66; RESP 14; TEMP 36.4; O2SAT 96
[2023-02-26 03:05] VITALS: BMI 28.5
[2023-02-26 06:54] LABS: Hematocrit 47.9 % (37-47); Hemoglobin 15.6 g/dL (12.0-15.0); Mean Corp Hgb Conc 32.6 g/dL (32-36); Mean Corpuscular Hgb 29.7 pg (27.0-32.0); Mean Corpuscular Volume 91.1 fL (81-99); Mean Platelet Vol. 9.9 fl (6.2-12.0); Platelet Count 293 K/mm3 (150-450); RBC Distribution Width CV 12.6 % (11.6-14.6); RBC Distribution Width SD 42.2 fl (35.1-43.9); Red Blood Count 5.26 M/mm3 (4.2-5.4); White Blood Count 7.4 K/mm3 (4.4-11.0)
[2023-02-26 07:30] LABS: AST(SGOT) 16 U/L (15-37); Alanine Aminotransfer ALT/SGPT 23 U/L (13-56); Albumin, Serum 3.6 g/dL (3.2-5.0); Alkaline Phosphatase 76 U/L (45-117); Anion Gap 5 (5-15); BUN 14 mg/dL (7-18); BUN/Creat Ratio 20.8 RATIO (10-20); Calcium,Total 9.2 mg/dL (8.5-10.1); Chloride 101 mmol/L (98-107); Creatinine, Serum 0.67 mg/dL (0.55-1.02); EST Glomerular Filtration Rate 95 mL/min (>60); Est Glom Filt Rate - Afr Amer 115 mL/min (>60); Estimated Creatinine Clearance 73.86 ml/min; Globulin 3.5 g/dL (2.2-4.2); Glucose 108 mg/dL (74-106); Potassium 3.9 mmol/L (3.5-5.1); Protein, Total 7.1 g/dL (6.4-8.2); Sodium Level 136 mmol/L (136-145)
--- NOTE | 2023-02-26 07:43 | PCM.PN.CARD ---
Subjective Subjective Patient seen and evaluated. Appears to be doing well. Had a 34 beat of a wide-complex tachycardia this morning Objective Data Vital Signs: Vital Signs Temp Pulse Resp BP Pulse Ox O2 Del Method O2 Flow Rate 97.5 F L 66 14 117/69 96 Room Air 2 02/26/23 03:00 02/26/23 03:00 02/26/23 03:00 02/26/23 03:00 02/26/23 03:00 02/26/23 03:00 02/23/23 08:15 Oxygen Flow Rate (L/min) 2 Oxygen Delivery Method Room Air Weight: 161 lb 2.526 oz Body Mass Index (BMI) 28.5 Intake & Output: Intake and Output for Last 24 Hours 02/24/23 02/25/23 02/26/23 23:59 23:59 23:59 Intake Total 1411.2 / 1411.2 2326.2 / 2326.2 304 / 304 Output Total 270 / 270 0 / 0 Balance 1141.2 / 1141.2 2326.2 / 2326.2 304 / 304 Lab / Micro Data Result Diagrams: 02/26/23 06:40 02/26/23 06:40 Labs: Laboratory Results - last 24 hr 02/25/23 09:47: Activated Clotting Time 251 H 02/26/23 06:40: WBC 7.4, RBC 5.26, Hgb 15.6 H, Hct 47.9 H, MCV 91.1, MCH 29.7, MCHC 32.6, RDW Std Deviation 42.2, RDW Coeff of Ramos 12.6, Plt Count 293, MPV 9.9 02/26/23 06:40: Sodium 136, Potassium 3.9, Chloride 101, Carbon Dioxide 30.0, Anion Gap 5, BUN 14, Creatinine 0.67, Estim Creat Clear Calc 73.86, Est GFR (MDRD) Af Amer 115, Est GFR (MDRD) Non-Af 95, BUN/Creatinine Ratio 20.8 H, Glucose 108 H, Calcium 9.2, Total Bilirubin 0.40, AST 16, ALT 23, Alkaline Phosphatase 76, Total Protein 7.1, Albumin 3.6, Globulin 3.5, Albumin/Globulin Ratio 1.0 Micro: Microbiology 02/22/23 22:05 Blood Culture (Wb) - Right Forearm Blood Culture - Preliminary No growth in 48 hours. 02/22/23 22:00 Blood Culture (Wb) - Anticubital Right Blood Culture - Preliminary No growth in 48 hours. Cardiology Labs/Tests 02/26/23 06:40: WBC 7.4, RBC 5.26, Hgb 15.6 H, Hct 47.9 H, MCV 91.1, MCH 29.7, MCHC 32.6, Plt Count 293, MPV 9.9 02/26/23 06:40: Sodium 136, Potassium 3.9, Chloride 101, Carbon Dioxide 30.0, Anion Gap 5, BUN 14, Creatinine 0.67, Est GFR (MDRD) Af Amer 115, Est GFR (MDRD) Non-Af 95, BUN/Creatinine Ratio 20.8 H, Glucose 108 H, Calcium 9.2, Total Bilirubin 0.40 Rhythm: EKG: ECHO: Stress Test: Cardiac Cath: PCI: CT Surgery: Holter monitor: EPS: PPM: CXR: Chest CT Scan: Physical Exam Const alert, oriented x3 and no apparent distress General Appearance: cooperative HEENT hearing grossly normal bilaterally Head and Scalp: atraumatic Eyes EOMs intact bilaterally Neck General: normal visual inspection Chest inspection of chest normal and palpation of chest normal Resp normal respiratory effort Auscultation: clear to auscultation bilaterally Cardio regular rate, regular rhythm, S1 normal heart sound and S2 normal heart sound Jugular Venous Distention: JVD GI normal to inspection, nondistended, normoactive bowel sounds Extremity normal capillary refill and no pedal edema Peripheral Pulses: Yes pulses 2+ throughout and femoral pulses present Skin no rashes or lesions noted Neuro oriented x3 and CN's II-XII intact bilaterally Psych Appearance: grossly normal and appropriate Assessment & Plan Assessment/Plan (1) Acute on chronic combined systolic and diastolic heart failure: PLAN: She does have evidence of chronic congestive heart failure. Her ejection fraction is markedly reduced. At the moment we will continue her on her current medical therapy as follows: Carvedilol and uptitrate as appropriate Lasix daily Spironolactone Continue JOSE J ARB or switch to Entresto (2) Coronary artery disease: PLAN: She does have coronary disease status post PCI of the right coronary artery remotely. Cardiac catheterization today demonstrated restenosis of the above with about 80% stenosis. Patient underwent PCI of the right coronary artery. LAD and left circumflex artery appeared to be nonobstructive. (3) Combined systolic and diastolic heart failure: QUALIFIERS: Heart failure chronicity: acute Qualified Code(s): I50.41 - Acute combined systolic (congestive) and diastolic (congestive) heart failure PLAN: She does have evidence of severe left ventricular systolic dysfunction. Therapeutic measures as noted above. (4) HTN (hypertension): PLAN: Her blood pressure is under suboptimal control. We will optimize her medications with the above. (5) Dyslipidemia: PLAN: Continue with aggressive risk factor modification with high intensity statin. Thank you for allowing me to participate in the care of your patient. Please don't hesitate to call if any issues arise. (6) V-tach: PLAN: Patient was noted to have 34 beats of a wide-complex tachycardia. I do not think that this is ischemically mediated. And with a ejection fraction of 15 to 20% by recommendation is for us to consider primary prevention ICD. I discussed this with the patient and with journalism professor at [facility] and we will make arrangements to transfer the patient for an implantable defibrillator. Thank you for allowing me to participate in the care of your patient. Please don't hesitate to call if any issues arise.
--- NOTE | 2023-02-26 08:00 | PCM.PROGNOTE ---
Subjective Subjective Patient underwent cardiac catheterization. She did have a stent placed and angioplasty to previous arthrosclerotic right coronary artery. Objective Data Objective Data Vital Signs: Vital Signs Temp Pulse Resp BP Pulse Ox O2 Del Method O2 Flow Rate 97.1 F L 79 16 114/96 H 98 Room Air 2 02/26/23 10:40 02/26/23 10:40 02/26/23 10:40 02/26/23 10:40 02/26/23 10:40 02/26/23 10:40 02/23/23 08:15 Oxygen Flow Rate (L/min) 2 Oxygen Delivery Method Room Air Weight: 161 lb 2.526 oz Body Mass Index (BMI) 28.5 Intake & Output: Intake and Output for Last 24 Hours 02/24/23 02/25/23 02/26/23 23:59 23:59 23:59 Intake Total 1411.2 / 1411.2 2326.2 / 2326.2 544 / 544 Output Total 270 / 270 0 / 0 Balance 1141.2 / 1141.2 2326.2 / 2326.2 544 / 544 Lab / Micro Data Result Diagrams: 02/26/23 06:40 02/26/23 06:40 Labs: Laboratory Results - last 24 hr 02/26/23 06:40: WBC 7.4, RBC 5.26, Hgb 15.6 H, Hct 47.9 H, MCV 91.1, MCH 29.7, MCHC 32.6, RDW Std Deviation 42.2, RDW Coeff of Ramos 12.6, Plt Count 293, MPV 9.9 02/26/23 06:40: Sodium 136, Potassium 3.9, Chloride 101, Carbon Dioxide 30.0, Anion Gap 5, BUN 14, Creatinine 0.67, Estim Creat Clear Calc 73.86, Est GFR (MDRD) Af Amer 115, Est GFR (MDRD) Non-Af 95, BUN/Creatinine Ratio 20.8 H, Glucose 108 H, Calcium 9.2, Total Bilirubin 0.40, AST 16, ALT 23, Alkaline Phosphatase 76, Total Protein 7.1, Albumin 3.6, Globulin 3.5, Albumin/Globulin Ratio 1.0 Micro: Microbiology 02/22/23 22:05 Blood Culture (Wb) - Right Forearm Blood Culture - Preliminary No growth in 48 hours. 02/22/23 22:00 Blood Culture (Wb) - Anticubital Right Blood Culture - Preliminary No growth in 48 hours. 02/23/23 03:18 Urine, Clean Catch Streptococcus pneumoniae Antigen (M - Final 02/23/23 03:18 Urine, Clean Catch Legionella Antigen - Final Physical Exam Const alert, oriented x3, no apparent distress and well nourished Constitutional Narrative: Overweight, upper middle-aged, white female, sitting up in bed, appears comfortable and nontoxic, Nursing is at bedside, watching TV General Appearance: cooperative, comfortable, well kempt and well developed Orientation / Consciousness: awake, oriented to person, oriented to place and oriented to time Exam Limitations: no limitations Nutritional Appearance: overweight HEENT normocephalic, head/scalp atraumatic, hearing grossly normal bilaterally, moist oral mucous membranes and oropharynx normal HEENT Narrative: Incision is fair for age, Mallampati 2, no thrush Eyes PERRL, EOMs intact bilaterally and conjunctivae normal Eyes Narrative: No scleral icterus Neck no lymphadenopathy, supple, no JVD and no carotid bruits Neck Narrative: Trachea midline, no thyroid enlargement Resp normal respiratory effort, no retractions, no use of accessory muscles and clear to auscultation bilaterally Auscultation: Negative for rales, rhonchi or wheezes Cardio regular rate, regular rhythm, S1 normal heart sound, S2 normal heart sound, no murmurs, no rub, no gallops and no clicks GI normal to inspection, nondistended, normoactive bowel sounds and soft to palpation Extremity no clubbing, cyanosis or edema Extremity Narrative: Pedal pulses, radial pulse 2+, right radial artery cath site appears to be healing well Skin no rashes or lesions noted, no wounds, skin turgor normal and no jaundice Neuro oriented x3, CN's II-XII intact bilaterally, moves all extremities, no focal motor deficits and no sensory deficits noted Speech: speech normal Motor Exam: strength 5/5 throughout Psych affect normal Psych Narrative: Extremely pleasant, appropriate Assessment & Plan Assessment/Plan (1) Dilated cardiomyopathy: (2) Heart failure with reduced ejection fraction: (3) Combined systolic and diastolic heart failure: QUALIFIERS: Heart failure chronicity: acute Qualified Code(s): I50.41 - Acute combined systolic (congestive) and diastolic (congestive) heart failure (4) Nausea & vomiting: QUALIFIERS: Vomiting type: unspecified Qualified Code(s): R11.2 - Nausea with vomiting, unspecified (5) Pneumonia: (6) Sepsis: (7) Acute on chronic combined systolic and diastolic heart failure: (8) Hypoxia: (9) Coronary artery disease: PLAN: Plan The differential diagnosis for abdominal pain does include cardiac ischemia, peripheral vascular disease secondary to alcohol, cigarette smoking and history of coronary artery disease. Also differential diagnosis does include functional disease such as gastroparesis, bacterial overgrowth, peptic ulcer disease, sphincter of Oddi syndrome. She will need CT angiography of the abdomen pelvis, capsule study., Biochemical work-up for autoimmune vasculitis affecting the GI tract. Think she needs to be emergently scoped at this time as she is having intractable nausea vomiting. She will be on Plavix and aspirin. Recommend PPI therapy 40 mg twice a day and Carafate 1 g p.o. 3 times daily. Recommend gastric emptying study and EGD with Ortiz placement. Charges/Coding Visit Charges Inpatient E&M: 50483 Subs Hosp L2
[2023-02-26 08:12] VITALS: BP 114/96; PULSE 79; RESP 16; TEMP 36.2; O2SAT 98
[2023-02-26] MEDS: buPROPion (SR) 150 MG Tablet.SA PO (08:16)
[2023-02-26] MEDS: Aspirin E.C. 81 MG Tablet PO (08:16)
[2023-02-26] MEDS: Pantoprazole Sodium 40 MG Tablet PO (08:16)
[2023-02-26] MEDS: Potassium Chloride Oral Tablet 20 MEQ PO (08:17)
[2023-02-26] MEDS: Clopidogrel Bisulfate 75 MG Tablet PO (08:17)
[2023-02-26] MEDS: Spironolactone 25 MG Tablet PO (08:18)
[2023-02-26] MEDS: Carvedilol 12.5 MG Tablet PO (08:18)
[2023-02-26] MEDS: Furosemide 40 MG Tablet PO (08:18)
[2023-02-26] MEDS: Empagliflozin 10 MG Tablet PO (08:18)
[2023-02-26] MEDS: Ensure Clear 120 ML Liquid PO (08:22)
--- NOTE | 2023-02-26 10:35 | PCM.DC.SUM ---
Providers Date of Admission: 02/22/23 Date of Discharge: 02/26/23 Primary Care Physician: PHONG Whitlock Consultations 02/22/23 21:37 Consult: Gastroenterology Routine Consulting Provider: Kt Romero Reason for Consult: nausea and vomiting EMERGENT Consult: No Notified: Yes Date Notified: 02/23/23 Time Notified: 07:30 Method of Notification: Text 02/23/23 08:20 Consult: Cardiology Routine Consulting Provider: Rohan Awan Reason for Consult: HFrEF EMERGENT Consult: No Notified: Yes Date Notified: 02/23/23 Time Notified: 08:21 Method of Notification: Text Reason For Visit: SEPSIS SECONDARY TO PNEUMONIA Diagnosis Discharge Diagnosis (1) Acute on chronic combined systolic and diastolic heart failure: Status: Chronic Code(s): I50.43 - Acute on chronic combined systolic (congestive) and diastolic (congestive) heart failure (2) Coronary artery disease: Status: Acute Code(s): I25.10 - Atherosclerotic heart disease of [place] coronary artery without angina pectoris (3) Combined systolic and diastolic heart failure: Status: Acute Code(s): I50.40 - Unspecified combined systolic (congestive) and diastolic (congestive) heart failure Qualifiers: Heart failure chronicity: acute Qualified Code(s): I50.41 - Acute combined systolic (congestive) and diastolic (congestive) heart failure (4) HTN (hypertension): Status: Chronic Code(s): I10 - Essential (primary) hypertension (5) Dyslipidemia: Status: Acute Code(s): E78.5 - Hyperlipidemia, unspecified (6) V-tach: Status: Acute Code(s): I47.20 - Ventricular tachycardia, unspecified Medications at Discharge Home Medications aspirin 325 mg tablet 325 mg PO QHS 06/06/16 clopidogrel 75 mg tablet 75 mg PO QHS 06/06/16 metoprolol tartrate 50 mg tablet 75 mg PO BID 06/06/16 rosuvastatin 10 mg tablet 20 mg PO QHS 06/06/16 pantoprazole 40 mg tablet,delayed release 40 mg PO DAILY #30 tabs 07/12/22 buspirone 10 mg tablet 10 mg PO TID 02/22/23 calcium carb-ergocalciferol (vit D2) 600 mg calcium-200 unit tablet 1 tab PO BID 02/22/23 cholecalciferol (vitamin D3) 25 mcg (1,000 unit) capsule (Vitamin D3) 50 mcg PO DAILY Check with primary doctor 02/22/23 cyanocobalamin (vitamin B-12) 1,000 mcg tablet (Vitamin B-12) 5,000 mcg PO DAILY 02/22/23 multivitamin 1 tab PO DAILY 02/22/23 valsartan 320 mg-hydrochlorothiazide 12.5 mg tablet (Diovan HCT) 1 tab PO DAILY 02/22/23 venlafaxine 150 mg capsule,extended release 24 hr (Effexor XR) 150 mg PO DAILY 02/22/23 Hospital Course Procedures Cardiac catheterization, EKG and - (CT abdomen and pelvis/chest x-ray) Summary of Care Provided Minutes Spent on Discharge: 39 Hospital Course: Mrs. George is a 62-year-old white female who presented to the emergency department at [facility] on 02/22/2023 with nausea and vomiting that has been ongoing for the past several years. She had an EGD done at [facility] at the end of 2021 early 2022 that showed irritation in the stomach. She had presented to the emergency department earlier on the same day for similar symptoms and was discharged home but returned due to persistent nausea and vomiting. She denied any signs of hematemesis at presentation. She was also was found to be hypoxic requiring 2 L supplemental oxygen which is not her baseline. Initial work-up was felt to be due to to sepsis with pneumonia. She had an elevated lactate at 2.2. The patient denied any coughing or sputum production or worsening of her respiratory status overall subjectively. I obtained a BNP on the morning after admission was markedly elevated at greater than 1300. She had a known echocardiogram that was done 2 days prior to presentation that showed an EF of 15%. We gave her Lasix 40 mg IV and she was able to transition to room air. With her EF being low we started appropriate goal-directed therapy with beta-jaden, JOSE J inhibitor which was transitioned to Entresto, Aldactone, and Jardiance with ongoing diuresis. Cardiology was consulted and she was taken to the [facility] on the a.m. of 02/25/2023. At that time she had predominantly nonobstructive disease that was mild however her previous stent which was placed in 2006 in the RCA demonstrated me in-stent stenosis and a new stent was placed. She was restarted on her Plavix and her aspirin was continued. Her Plavix was held initially as there was concern that she could have multivessel disease and would need bypass. She overall did fairly well throughout her hospital course but unfortunately developed a 38 beat run of VT overnight from 02/25/2023 to 02/26/2023. Cardiology was notified of this and reviewed it and felt that she should have a defibrillator placed more emergently because of this. He contacted EP over at [facility] and they agreed and said that they would see him in consultation with admission the hospital service. We called [facility] and were able to obtain a bed with excepting physician on 02/26/2023. She will be evaluated there for defibrillator. GI did evaluate the patient while she was here due to her chronic nausea and vomiting which she had no episodes while she was hospitalized. There is some question whether these are related to her cardiac issues however he would like her to follow-up as an outpatient and information was left in her discharge paperwork to call after she is discharged from getting her defibrillator to set up an appointment. She also indicated she would like to follow-up with Dr. Reeves here and will serve as her general intensive care unit registered nurse after the time of discharge. We did have an extensive discussion during her hospital course with regards to tobacco cessation and alcohol cessation with regards to cardiac health. Discharge diagnoses: Acute on chronic combined heart failure Ischemic cardiomyopathy Chronic nausea and vomiting CAD Hypertension Hyperlipidemia GERD Hiatal hernia Depression Tobacco abuse Alcohol abuse Physical Exam Const alert, oriented x3, no apparent distress and well nourished Constitutional Narrative: Overweight, upper middle-aged, white female, sitting up in bed, appears comfortable and nontoxic, Nursing is at bedside, watching TV General Appearance: cooperative, comfortable, well kempt and well developed Orientation / Consciousness: awake, oriented to person, oriented to place and oriented to time Exam Limitations: no limitations Nutritional Appearance: overweight HEENT normocephalic, head/scalp atraumatic, hearing grossly normal bilaterally, moist oral mucous membranes and oropharynx normal HEENT Narrative: Incision is fair for age, Mallampati 2, no thrush Eyes PERRL, EOMs intact bilaterally and conjunctivae normal Eyes Narrative: No scleral icterus Neck no lymphadenopathy, supple, no JVD and no carotid bruits Neck Narrative: Trachea midline, no thyroid enlargement Resp normal respiratory effort, no retractions, no use of accessory muscles and clear to auscultation bilaterally Auscultation: Negative for rales, rhonchi or wheezes Cardio regular rate, regular rhythm, S1 normal heart sound, S2 normal heart sound, no murmurs, no rub, no gallops and no clicks GI normal to inspection, nondistended, normoactive bowel sounds and soft to palpation Extremity no clubbing, cyanosis or edema Extremity Narrative: Pedal pulses, radial pulse 2+, right radial artery cath site appears to be healing well Skin no rashes or lesions noted, no wounds, skin turgor normal and no jaundice Neuro oriented x3, CN's II-XII intact bilaterally, moves all extremities, no focal motor deficits and no sensory deficits noted Speech: speech normal Motor Exam: strength 5/5 throughout Psych affect normal Psych Narrative: Extremely pleasant, appropriate Weight / BMI Weight Weight: 73.1 kg Body Mass Index (BMI) 28.5 ABG / Lab / Microbiology Data Result Diagrams: 02/26/23 06:40 02/26/23 06:40 Laboratory: Laboratory Results - last 24 hr 02/25/23 09:47: Activated Clotting Time 251 H 02/26/23 06:40: WBC 7.4, RBC 5.26, Hgb 15.6 H, Hct 47.9 H, MCV 91.1, MCH 29.7, MCHC 32.6, RDW Std Deviation 42.2, RDW Coeff of Ramos 12.6, Plt Count 293, MPV 9.9 02/26/23 06:40: Sodium 136, Potassium 3.9, Chloride 101, Carbon Dioxide 30.0, Anion Gap 5, BUN 14, Creatinine 0.67, Estim Creat Clear Calc 73.86, Est GFR (MDRD) Af Amer 115, Est GFR (MDRD) Non-Af 95, BUN/Creatinine Ratio 20.8 H, Glucose 108 H, Calcium 9.2, Total Bilirubin 0.40, AST 16, ALT 23, Alkaline Phosphatase 76, Total Protein 7.1, Albumin 3.6, Globulin 3.5, Albumin/Globulin Ratio 1.0 Microbiology: Microbiology 02/22/23 22:05 Blood Culture (Wb) - Right Forearm Blood Culture - Preliminary No growth in 48 hours. 02/22/23 22:00 Blood Culture (Wb) - Anticubital Right Blood Culture - Preliminary No growth in 48 hours. 02/23/23 03:18 Urine, Clean Catch Streptococcus pneumoniae Antigen (M - Final 02/23/23 03:18 Urine, Clean Catch Legionella Antigen - Final D/C Instructions Discharge Diet: Low fat / Low cholesterol, 8 Cup Fluid Restriction and 2000 mg Sodium Diet Meaningful Use Info Meaningful Use Diagnoses (Choose all that apply): CHF CHF JOSE J/ARB ordered at discharge?: Yes Documented LVEF (%): 15 Discharge Plan Admission Admit Date/Time: 02/22/23 20:17 Primary Reason for Your Visit: Nausea and Vomiting/SOB Attending Provider: Zulma Brunner Primary Care Provider: Rodney Griffin NP Consulting Providers: Julio César Arndt ; Rohan Awan ; Kt Romero Discharge Orders/Prescriptions Prescriptions: No Action aspirin 325 MG tablet 325 mg PO QHS Label Comments: thinner clopidogrel 75 MG tablet 75 mg PO QHS Label Comments: thinner metoprolol tartrate 50 MG tablet 75 mg PO BID Label Comments: blood pressure rosuvastatin 10 MG tablet 20 mg PO QHS Label Comments: cholesterol pantoprazole 40 MG tablet 40 mg PO DAILY Qty: 30 0RF venlafaxine [Effexor XR] 150 mg Capsule,Extended Release 24hr 150 mg PO DAILY valsartan-hydrochlorothiazide [Diovan HCT] 320-12.5 mg Tablet 1 tab PO DAILY buspirone [BuSpar] 10 mg Tablet 10 mg PO TID multivitamin Tablet 1 tab PO DAILY cyanocobalamin (vitamin B-12) [Vitamin B-12] 1,000 mcg Tablet 5,000 mcg PO DAILY Calcium + Vitamin D 600 mg calcium- 200 unit Tablet 1 tab PO BID cholecalciferol (vitamin D3) [Vitamin D3] 25 mcg (1,000 unit) Capsule 50 mcg PO DAILY Referrals / Follow Up: Jose Antonio Reeves MD [Med Staff - Active Staff] - Within 1 Month Kt Romero DO [Med Staff - Active Staff] - Within 1 Month Rodney Griffin NP, FIELD RESEARCH ASSISTANT-C [Primary Care Provider] - Disposition Disposition (needs filled in before D/C Order can be placed): Acute Care Hospital Charges/Coding Visit Charges Inpatient E&M: 99369 Disch Hosp >30min
[2023-02-26 10:40] VITALS: BP 114/96; PULSE 79; RESP 16; TEMP 36.2; O2SAT 98
--- NOTE | 2023-02-26 11:03 | NURSING ---
squad present to take patient then tech states cannot take patient, Needs advanced emt. Transport is delayed another hout or so until can get another crew,
--- NOTE | 2023-02-26 11:45 | NURSING ---
This RN called report to KARIN Escamilla at [facility]
--- NOTE | 2023-02-26 12:00 | EKG12_ITS ---
Test Reason : Blood Pressure : / mmHG Vent. Rate : 081 BPM Atrial Rate : 081 BPM P-R Int : 146 ms QRS Dur : 100 ms QT Int : 410 ms P-R-T Axes : 000 054 236 degrees QTc Int : 476 ms Sinus rhythm with occasional Premature ventricular complexes Left ventricular hypertrophy with repolarization abnormality ( Sokolow-Porter ) Abnormal ECG When compared with ECG of 25-FEB-2023 05:41, MANUAL COMPARISON REQUIRED, DATA IS UNCONFIRMED Confirmed by BABITA CLAY, CASSIE ([id number]), manager editorial RENEE ROBERSON ([id number]) on 02/27/2023 8:39:32 AM Referred By: GARLAND Confirmed By:CASSIE JC MD
--- NOTE | 2023-02-26 12:39 | NURSING ---
I called [facility] to get an ETA and dispatch stated their crew is 45m out from [facility].
== END 2023-02-26 13:34 | disposition short-term general hospital (02) | DRG 246 ==
LOC: ED 20:18 → ICU 20:47 → PCU 02-23 11:48
PROVIDERS: Internal Medicine Interventional Cardiology; Admitting Provider Hospitalist; Emergency Provider Emergency Medicine; PCP Nurse Practitioner Family; Visit Provider Internal Medicine
DX: I11.0 Hypertensive heart disease with heart failure (principal); I50.43 Acute on chronic combined systolic (congestive) and diastolic (congestive) heart failure; I47.20 Ventricular tachycardia, unspecified; T82.855A Stenosis of coronary artery stent, initial encounter; I42.0 Dilated cardiomyopathy; F10.20 Alcohol dependence, uncomplicated; I25.10 Atherosclerotic heart disease of native coronary artery without angina pectoris; E78.5 Hyperlipidemia, unspecified; K21.9 Gastro-esophageal reflux disease without esophagitis; K29.70 Gastritis, unspecified, without bleeding; K44.9 Diaphragmatic hernia without obstruction or gangrene; F17.210 Nicotine dependence, cigarettes, uncomplicated; I25.5 Ischemic cardiomyopathy; E86.0 Dehydration; Y83.8 Other surgical procedures as the cause of abnormal reaction of the patient, or of later complication, without mention of misadventure at the time of the procedure; R09.02 Hypoxemia; I49.3 Ventricular premature depolarization; F32.A Depression, unspecified; Z95.5 Presence of coronary angioplasty implant and graft; Z79.82 Long term (current) use of aspirin; Z79.02 Long term (current) use of antithrombotics/antiplatelets; Z79.899 Other long term (current) drug therapy
CPT/HCPCS: 36415; 71045; 74177; 80048; 80053; 80061; 83036; 83605; 83735; 83880; 84100; 84443; 84484; 85025; 85027; 85347; 87040; 87449; 92928; 93005; 93458; 94668; 94762; 97802; 99152; 99153; 99284; 99406; C1725; J7030; J7040; J7050; Q9967; A4216; C1769; C1874; C1887; C1894; C9600; J0295; J1940; J3490

== ENCOUNTER → 2023-03-13 | Outpatient (CLI) | payer BC, SELFPAY ==
--- NOTE | 2023-03-13 08:06 | PCM.CR.HP2 ---
CR - History & Physical - General Arrival date:: 03/13/23 Arrival time:: 08:06 Date of Referral:: 03/04/23 Date of CR Evaluation:: 03/13/23 Referring Physician: Dr. Jose Antonio Reeves Primary Diagnosis: PCI with stent - History of Present Cardiac Event Onset Date: Enter Onset Date of cardiac illnesses in Comment field below PTCA or coronary stenting:: Yes - 02/25/23 - Sleep Disorder Evaluation Hx of Sleep Apnea: No Do you snore loudly (louder than talking or can be heard through closed doors)?: Yes - declines sleep study Do you often feel tired/ fatigued/ sleepy during daytime?: No Has anyone observed you stop breathing during sleep?: No History of Hypertension (for STOP score): Yes STOP Results: Positive - Medications Home Medications: Ambulatory Orders Medication Instructions Recorded aspirin 325 mg tablet 325 mg PO QHS 06/06/16 clopidogrel 75 mg tablet 75 mg PO QHS 06/06/16 metoprolol tartrate 50 mg tablet 75 mg PO BID 06/06/16 rosuvastatin 10 mg tablet 20 mg PO QHS 06/06/16 pantoprazole 40 mg tablet,delayed 40 mg PO DAILY #30 tabs 07/12/22 release buspirone 10 mg tablet 10 mg PO TID 02/22/23 calcium carb-ergocalciferol (vit 1 tab PO BID 02/22/23 D2) 600 mg calcium-200 unit tablet cholecalciferol (vitamin D3) 25 50 mcg PO DAILY Check with primary 02/22/23 mcg (1,000 unit) capsule (Vitamin doctor D3) cyanocobalamin (vitamin B-12) 5,000 mcg PO DAILY 02/22/23 1,000 mcg tablet (Vitamin B-12) multivitamin 1 tab PO DAILY 02/22/23 valsartan 320 1 tab PO DAILY 02/22/23 mg-hydrochlorothiazide 12.5 mg tablet (Diovan HCT) venlafaxine 150 mg 150 mg PO DAILY 02/22/23 capsule,extended release 24 hr (Effexor XR) - Allergies Allergies/Adverse Reactions: Allergies No Known Allergies Allergy (Verified 07/12/22 10:46) Advanced Directives - Advanced Directives 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 Living Will: No Advance Directives Information Provided: No Advance Directives on File: No DNR Order?:: No Past Medical History - Covid-19 Screening Has a serious heart condition:: Yes - Past Medical Illness Medical History: Past Medical History (Last Updated 03/04/23 @ 13:45 by Sandra Moreau) Atherosclerotic heart disease of [place] coronary artery without angina pectoris I25.10 Combined systolic and diastolic heart failure I50.40 Coronary artery disease I25.10 Dyslipidemia E78.5 Hiatal hernia K44.9 HTN (hypertension) I10 Nausea and vomiting R11.2 - Past Surgical History Surgical History: Past Surgical History (Last Updated 03/04/23 @ 13:44 by Sandra Moreau) History of appendectomy Z90.49 Hx of cholecystectomy Z90.49 Stented coronary artery Onset Date: 02/25/23 Z95.5 Successful PCI of the culprit, mid RCA 80% stenosis :drug-eluting stent resolute Andreas 3.5 x 30 mm Surgical History: appendectomy, cholecystectomy, coronary stent placement - Family History Summary Family History: Family History (Last Updated 02/22/23 @ 21:[address] Julio César Arndt MD) Other Heart disease Social History - Smoking History Smoking Status: Former smoker Years Smokin Packs Smoked per Day: 0.5 Hx Tobacco Use: Yes - stopper Feb 22 2023 - Alcohol Use Alcohol Usage: No - stopped - Occupation Occupation (List type of work in comments):: Employed Hours worked per day:: 8 - Hobbies, Recreation, Social Activities Hobbies: None Recreational Activities: I am able to engage in all my recreational activities Social Environment - Status Marital Status: Single - Current Living Arrangements Living Environment:: Family - Children How many children do you have?: 2 Do any of your children live nearby?: Yes - Safety Do you feel safe in your surroundings?: Yes - Assistance Do you need any assistance at home?: no Review of Systems - Review of Systems Hints: Right click = Denies (Slash). Left click = Reports ([place]) Review of Present Symptoms: Reports: Appetite - Normal, Appetite - Special Diet, Sleep - Normal. Denies: Shortness of Breath at Rest, Shortness of Breath with Exertion, PVD, Operative Discomfort, Angina, Wound Healing, Dizziness/Lightheadedness, Fatigue, Heart Arrhythmia/Irregularities, Sexual Changes - Pain Is Patient Pain Free?: Yes Risk Factor Assessment - Vital Signs Pulse Ox: 96 Blood Pressure: 117/69 - Pulse Pulse Rate: 66 - Obesity Height: 5 ft 3 in Weight:: 73.028 kg Weight in Pounds: 161.0 lbs Body Mass Index (BMI): 28.5 Nutritional Referral for Obesity: No - Physical Inactivity Physical Inactivity: None - Risk Stratification Risk Guidelines: Moderate Risk: Risk Factor for Dyslipidemia, Risk Factor for Diabetes, Risk Factor for Obesity, Risk Factor for Hypertension, Risk Factor for Sedentary Lifestyle, Risk Factor for Depression, Highest Risk: Risk Factor for Smoking - Family History Family History: Family History (Last Updated 02/22/23 @ 21:[address] Julio César Arndt MD) Other Heart disease Motivation - Motivation to Participate On a scale of 1 to 10, how prepared are you to commit to attending program?: 10 What do you see as barriers to successfully being able to complete the program?: nothing What do you see as the benefits of succesfully completing the program? In other words, what do you hope to get out of participating in the program?: improved health, more energy Are there issues you are dealing with that will interfere with completing the program?: no Do you have a spouse or signficant other, family or friends who will help support you to complete the program?: yes
[2023-03-13 08:25] VITALS: RESP 66
[2023-03-13 08:44] VITALS: BP 117/69; PULSE 66; O2SAT 96; BMI 28.5
--- NOTE | 2023-03-13 08:45 | CR.ITP_ITS ---
Diagnosis - General Information Admitting Diagnosis: PCI with coronary stent Personal Learning Style:: Audio/Visual Stage of change r/t lifestyle modifications:: Contemplation Gave educational material for:: Treating Heart Disease, Emotions & Heart Disease, Stress Management & Relaxation, Sleep Disorders & Heart Disease, How The Heart Works, What it means to have Heart Disease, How Coronary Artery Disease is Diagnosed, Heart Procedures, What Heart Medications Do, Risk Factors & Modifications, Living an Active Life, Nutrition - Education/Goals Cardiac Rehabilitation Goals: 1. Maintain the individual as the primary focus of care. 2. To improve the patient's quality of life. 3. Identification of cardiac risk factors and provide cardiac risk factor management. 4. Enhance the psychosocial status of the patient. 5. Reconditioning enough to allow the patient to resume customary activities. 6. Control symptoms of cardiac disease Personal Goals: Initial Assessment: Quit smoking (participate in smoking cessation, Improve energy level, Improve knowledge of cardiac disease, Improve muscle strength and endurance, Control risk factors (learn risk factor modification) Scale for measuring improvement of personal goals: Enter appropriate number in Comments. 2 = Unchanged. 3 = Slightly Better. 4 = Moderate Improvement. 5 = Met my Goal - Diagnosis & Disease Process Outcomes/Goals: Pt IDs own risk factors & lifestyle modifications by Session 10, Verbalizes symptoms of angina & response by session 3., Pt independently manages, Other Additional Outcomes/Goals: Plan/Interventions: Assist Pt to ID & engage in lifestyle modification to reduce CVD risk, Instruct on individual risk factors, Review symptoms of angina & emergency actions, Review secondary diagnosis & identify educational needs., Other see comment 30 day Reassessments:: Not Met 30 day Reassessments:: Not Met 30 day Reassessments:: Not Met 30 day Reassessments:: Not Met Final Reassessments:: Not Met - Safety Referral to Physical Therapy: No Referral to [facility] Case Management: No Fall Risk Assessed:: Yes Assistive Devices:: None Exercise - Initial Assessment - Visit Date of Eval: 03/13/23 - initial eval Mets: Pre-: >3 METS for 30 minutes by discharge, >5 METS for 30 minutes by discharge, >7 METS for 30 minutes by discharge, Unable to meet goal due to: (see comment below) - Physician Prescribed Exercise Modalities: Treadmill, Rower, Airdyne, NuStep, SciFit, Lateral [place] Frequency: 3x/week for 12 weeks [36 sessions] Intensity: 60-80% of age predicted maximum heart rate reserve Current METSs:: 2 Target Heart Rate:: 96-112 Resting Blood Pressure: 117/69 EKG Type: SR with occas PVC's - Outcomes & Goals Goals:: Verbalizes understanding of THR, RPE & goal METS by session 6, Documents in home exercise log/reports 30 min aerobic 5 day/wk by DC, Demonstrates accurate pulse taking by DC, Other additional outcome/goals: see below - Intervention & Plan Exercise Program Goals: Instruct on personal THR & RPE, Instruct on MET level & personal MET goal, Show patient to take own pulse /validate performance until accurate, Instruct on home exercise, Other additional plan/int - Physical Activity Home Exercise Physical Activity - Home Exercise: Safe Exercise, Warm-up, Self-monitoring, Cool-Down, Home Exercise > 30 min Daily, Sitting Time <3 hours/daily - Outcomes & Goals Outcomes/Goals: Demonstrates correct Warm-up/exercise Cool-Down (S3) if = 2.5 METs, Verbalizes symptoms of exercise intolerance by Session 3 (S3), Demonstrate safe equipment use (S3) & follows exercise prescrition (6), Other: See below - Intervention & Plan Plan/Intervention: Instruct warm-up & cool-down if exercising at > 2 METs, Instruct on symptoms of exercise intolerance & actions to take, Instruct & monitor on saf, Assess intial functional capacity & safety risk, Other See below Nutrition - Initial Assessment - Program Goals Nutrition Program Goals: LDL <100 optimal. 100 - 129 Near optimal. 130 - 159 Borderline High. 160 - 189 High. Total Cholesterol <200 desirable. 200 - 239 Borderline High. >/= 240 High. HDL < 40 Low >/=60 High. Triglycerides <150 desirable. <199 optimal. VlDL 5 - 40. HgbA1C <7%. BMI <25 Patient has diagnosis of Hyperlipidemia (ICD E78)?: Yes - Visit Date of Assessment:: 03/13/23 - initial eval - Cholesterol/Lipids (Other Core Measures) Determine presence & major risk factors that modify LDL goal: Cigarette smoking, Hypertension or hypertensive medication, Low HDL cholesterol <40 mg/dL*, Family history of premature CHD in Male < 55 years: female <65 yearsFa, Age men > 45 years; women >/= 55 years Outcomes/Goals: Pt IDs own risk factors & lifestyle modifications by Session 10, Verbalizes symptoms of angina & response by session 3., Pt independently manages, Other Additional Outcomes/Goals: Intervention/Plan: Advocate for lipid panel cholesterol medication if applicable, Instruct on personal lipid levels & lipid goals/NCEP guidelines, Instruct on cholesterol, Other additional plan/int Referral to dietitian:: No - declines - Diabetes (Other Core Measures) Diabetes Type: Not Applicable - Weight Mgt (Other Care) Height: 5 ft 3 in Weight:: 73.028 kg BMI: 28.5 Diagnosis Overweight/Obesity BMI> 30% ICD-10 E66: No Diagnosis High BMI/Morbid Obesity BMI> 35% ICD-10 Z68: No Outcomes/Goals: Pt sets, maintains & shows weight loss goal & trend during rehab, Other additional outcomes/goals Intervention/Plan: Instruct on ideal BMI & set weight loss goal w/patient, Assist pt to ID & incorporate diet changes for weight loss by S9, Refer to Structured Weight Loss program as appropriate, Encourage goal of using 250- 300dcal per session for weight loss, Other additional plan/interventions - Healthy Eating Habits Will attend diet classes:: Yes Outcomes/Goals:: Consume diet rich in vegs,fruits,whole grain/high fiber,fish,lean meat, Limit sat/trans fats,cholesterol & added salts & sugars, Other additional outcome/goals: Intervention/Plan:: Assess current eating habits, Other Additional plan/interventions - Education Gave educational materials for:: Signs & symptoms of hypoglycemia, Signs & symptoms of hyperglycemia, Relate diabetes to coronary artery disease, Healthy eating Nutrition - 30-Day Assessment Nutrition - 60-Day Assessment Nutrition - 90-Day Assessment Nutrition - Final Assessment Core - Initial Assessment - Visit Date of Eval: 03/13/23 - initial eval - Medication Compliance Preventative Medication(s):: Aspirin, Clopidogrel/P2Y12 inhibit, Statin/lipid, Beta jaden H/O mental health issues: depression, anxiety, or addiction?: Yes Doesn?t believe in the benefits of treatment?: No Believes medications are unnecessary or harmful?: No Has a concern about medication side effects?: No Expresses concern over the cost of medications?: No Outcomes/Goals: Verbalizes medications,desired effect & common side effects @ DC, Pt self-reports following medication regimen, Keeps card in wallet w/medications listed by DC, Other additional outcome/goals: Interventions/plans: Instruct on medication effects & side effects, Review medication list w/patient every two weeks, Instruct importance of taking meds as ordered & assist problem solving, Other additional - Tobacco Use Tobacco Use: Non-smoker How long ago did you quit using tobacco products?: Less than 6 months ago - pt stopped smoking Do you use smokeless tobacco?: No Outcomes/Goals: Smoking cessation achieved or maintained by discharge, Identify aids/strategies for achieving smoking cessation by session 6, Other additional outcome/goals Interventions/plan: Instruct on effects of smoking & provide smoking cessation resource, Assist pt to set quit date & provide encouragement, Assist pt to develop strategies to achieve/maintain quit date, Assist pt w/nicotine replacement & medication for cessation success, Other additional plan/interventions - Hypertension Hypertension Diagnosis:: Hypertension ICD-10 I10 Resting Blood Pressure:: 117/69 [place] [employer] Hypertension Guidelines: [place] [employer] Hypertension Guidelines. Normal BP Less than 120/80. Elevated BP 120/80. Hypertension Stage 1: BP 130-139/80-89. Hypertesnion Stage 2: BP 140 or higher/90 or higher. Hypertension Crisis: BP higher than 180/120 Outcomes/Goals: Able to verbalize/achieve optimal blood pressure <130/80, Incorporates diet changes & exercise for blood pressure control by DC, Other additional outcomes/goals Interventions/plan: Instruct on optimal blood pressure, hypertension & medications, Instruct on effects of sodium, alcohol, stress, exercise &hypertension, Other additional plan/interventions - Tobacco Cessation Referral Smoking Cessation Referral:: No Individual Education/Counseling:: No Education Schedule Given:: Yes Core - 30-Day Assessment Core - 60-Day Assessment Core - 90 Day Assessment Core - Final Assessment Psychosocial - Initial Assess - VIsit Date of Eval: 03/13/23 - initial eval History of previous Mental disease:: Yes History of Emotional Disorders: Depression - pt is doing well - Outcomes/Goals: See list Psychosocial Outcomes/Goals:: ID's personal stressors & 2 strategies to manage stress by discharge, Other Additional outcome/goals: - Intervention/Plan: See List Interventions/Plan:: Assess stressors,coping strategies & signs of derpression on admission, Instruct/assist pt to develop coping & personal stress Mgt strategies, Refer to Behavioral Health if appropriate, Refer to Physician if appropriate, Instruct patient to recognize signs & symptoms of depression, Instruct patient to recog, Other additional plan/intervention Psychosocial - 30-Day Assess Psychosocial - 60-Day Assess Psychosocial - 90-Day Assess Psychosocial - Final Assessmen Patient Health Questionnaire Initial Assessment 1. Little interest or pleasure in doing things: Nearly every day 2. Feeling down, depressed, or hopeless: Not at all 3. Trouble falling or staying asleep, or sleeping too much: Not at all 4. Feeling tired or having little energy: Several days 5. Poor appetite or overeating: Nearly every day 6. Feeling bad about yourself -- or that you are a failure or have let yourself or your family down: Not at all 7. Trouble concentrating on things, such as reading the newspaper or watching television: Not at all 8. Moving or speaking so slowly that other people could have noticed. Or the opposite - being so fidgety or restless that you have been moving around a lot more than usual: Not at all 9. Thoughts that you would be better off , or of hurting yourself in some way: Not at all How difficult have these problems made it for you to do your work, take care of things at home, or get along with other people?: Somewhat difficult Total Score: 7 LENCHO-Q SV Test - Statements CAD is a disease of the arteries in the heart: False Examples of risk factors for heart disease: True Angina is chest pain or discomfort: True The benefits of resistance training include: True Eating more meat and dairy products: False Anti-platelet medications such as aspirin are important: True The only effective way to manage stress: False An exercise warm-up slowly increases heart rate: True Prepared, processed foods usually have high sodium: True Depression is common after a heart attack: I Don't Know The statin medications lower cholesterol: True To control blood pressure, lower the amount of sodium: False If someone gets chest discomfort during walking: True Transfats are partially hydrogenated vegetable oils: False Sleep apnea that is not treated increases the risk: False To control cholesterol, one should become a vegetarian: True Someone knows if he/she is exercising at the right level: False Diabetes cannot be prevented with exercise & health eating: False Stress is a large risk for heart attack: True A diet that can help lower blood pressure is rich in: True - Total Score Total Correct Responses: 14 Self-Efficacy Initial Assessment We would like to know how confident you are in doing certain activities. Please select your confidence level for:: Select your confidence level for the following using the scale 1-10 where 1 is not at all confident and 10 is totally confident. Your score is the average of all 6 responses. Fatigue: How confident are you that you can keep the fatigue caused by your disease from interfering with the things you want to do? Select Number: 8 Physical Discomfort or Pain: How confident are you that you can keep the physical discomfort or pain of your disease from interfering with the things you want to do? Select Number: 7 Emotional Distress: How confident are you that you can keep the emotional distress caused by your disease from interfering with the things you want to do? Select Number: 7 Other Symptoms or Health Problems: How confident are you that you can keep other symptoms or health problems from interfering with the things you want to do? Select Number: 9 Different Tasks and Activities: How confident are you that you can do the different tasks and activities needed to manage your health condition so as to reduce your need to see a doctor? Select Number: 7 Medication: How confident are you that you can do things other than just taking medication to reduce how much your illness affects your everyday life? Select Number: 9 Total Score:: 7 Nutrition Survey - Nutrition Survey Initial Have you lost >10 lbs over the past 2 months without trying?: Yes Are you following a special diet at home for diabetes, low fat, or low salt?: Yes Are you interested in meeting with a dietitian for help understanding your diet?: No Do you eat less than 3 meals a day?: No Do you eat fatty meats (alvarez, sausage, ribs, etc), fried foods, desserts, large amounts of salad dressings, margarine, butter, or cheese most days?: No Do you have food allergies? [Enter types in comment field]: No Do you eat in restaurants more than 3 times a week?: No Do you season food with salt, seasoning salt, or garlic salt?: Yes Do you used canned, boxed, frozen meals, or soups, seasoning packets?: No Total Score:: 3
[2023-03-13 08:59] VITALS: BP 117/69; BMI 28.5
== END | disposition home or self-care (01) ==
LOC: CR 08:04
PROVIDERS: PCP Nurse Practitioner Family; Referring Provider Internal Medicine Cardiovascular Disease; Visit Provider Internal Medicine Cardiovascular Disease
DX: I25.10 Atherosclerotic heart disease of native coronary artery without angina pectoris (principal); Z95.5 Presence of coronary angioplasty implant and graft

== ENCOUNTER 2023-04-12 08:00 | Outpatient (RCR) | payer BC, SELFPAY ==
[2023-03-13 08:59] VITALS: BMI 28.5
== END 2023-04-12 23:59 ==
LOC: CR 08:00
PROVIDERS: PCP Nurse Practitioner Family; Referring Provider Internal Medicine Cardiovascular Disease; Visit Provider Internal Medicine Cardiovascular Disease
DX: Z95.5 Presence of coronary angioplasty implant and graft (principal); I47.20 Ventricular tachycardia, unspecified; I25.10 Atherosclerotic heart disease of native coronary artery without angina pectoris
CPT/HCPCS: 93798

== ENCOUNTER 2023-04-24 14:20 | Emergency (ER) | payer BC, SELFPAY ==
[2023-03-13 08:59] VITALS: BMI 28.5
[2023-04-24 14:21] VITALS: PULSE 84; RESP 18; O2SAT 99
[2023-04-24 14:22] VITALS: BP 152/70; PULSE 83; RESP 21; TEMP 36.1; O2SAT 95; BMI 29.6
--- NOTE | 2023-04-24 14:49 | EKG12_ITS ---
Test Reason : NV Blood Pressure : / mmHG Vent. Rate : 080 BPM Atrial Rate : 080 BPM P-R Int : 190 ms QRS Dur : 100 ms QT Int : 434 ms P-R-T Axes : 000 049 250 degrees QTc Int : 500 ms Normal sinus rhythm Left ventricular hypertrophy with repolarization abnormality ( Sokolow-Porter ) Prolonged QT Abnormal ECG Confirmed by BABITA CLAY, CASSIE ([id number]), assignment editor RENEE ROBERSON ([id number]) on 04/25/2023 2:24:44 PM Referred By: Confirmed By:CASSIE JC MD
[2023-04-24] MEDS: 0.9% Normal Saline 1,000 ML 150 ML IV (14:50)
--- NOTE | 2023-04-24 14:51 | EX.ED.DYSGE1 ---
HPI History of Present Illness Chief Complaint: Nausea/Vomiting Informant: patient Onset/Context/Timing Onset: Today Narrative Narrative: Patient presents secondary to nausea and vomiting. She states yesterday she has felt fatigued. Today she has had nausea and vomiting. She denies diarrhea. No fever. She does complain of some mid upper abdominal pain. She has had a prior cholecystectomy and appendectomy. She denies history of pancreatitis. She does admit to a history of alcohol use but has not used in quite some time. [facility] Medical History Atherosclerotic heart disease of [place] coronary artery without angina pectoris Chronic systolic heart failure Combined systolic and diastolic heart failure Coronary artery disease Essential hypertension Hiatal hernia History of ETOH abuse Ischemic cardiomyopathy Nausea and vomiting Nicotine use disorder Home Medications pantoprazole 40 mg tablet,delayed release 40 mg PO DAILY #30 tabs 07/12/22 [Rx Last Taken 02/21/23] buspirone 10 mg tablet 10 mg PO TID 02/22/23 [History Last Taken 02/21/23] cyanocobalamin (vitamin B-12) 1,000 mcg tablet (Vitamin B-12) 5,000 mcg PO DAILY 02/22/23 [History Last Taken 02/21/23] venlafaxine 150 mg capsule,extended release 24 hr (Effexor XR) 150 mg PO DAILY 02/22/23 [History Last Taken Unknown] ascorbic acid (vitamin C) 500 mg tablet 500 mg PO DAILY 03/22/23 [History Last Taken Unknown] aspirin 81 mg tablet,delayed release (Adult Aspirin Regimen) 81 mg PO DAILY 03/22/23 [History Last Taken Unknown] bupropion HCl 150 mg tablet,12 hr sustained-release 150 mg PO BID 03/22/23 [History Last Taken Unknown] multivitamin with iron 1 tab PO DAILY 03/22/23 [History Last Taken Unknown] sertraline 25 mg tablet 25 mg PO DAILY 03/22/23 [History Last Taken Unknown] sucralfate 1 gram tablet 1 g PO QACHS 03/22/23 [History Last Taken Unknown] zinc gluconate 100 mg tablet 100 mg PO DAILY 03/22/23 [History Last Taken Unknown] atorvastatin 80 mg tablet 80 mg PO QHS #90 tabs 03/25/23 [Rx Last Taken Unknown] carvedilol 12.5 mg tablet 12.5 mg PO BID #180 tabs 03/25/23 [Rx Last Taken Unknown] celecoxib 200 mg capsule (Celebrex) 200 mg PO DAILY 03/25/23 [History Last Taken Unknown] cholecalciferol (vitamin D3) 25 mcg (1,000 unit) capsule 125 mcg PO DAILY 03/25/23 [History Last Taken Unknown] clopidogrel 75 mg tablet 75 mg PO QHS #90 tabs 03/25/23 [Rx Last Taken Unknown] empagliflozin 10 mg tablet (Jardiance) 10 mg PO DAILY #90 tabs 03/25/23 [Rx Last Taken Unknown] furosemide 20 mg tablet 20 mg PO DAILY #90 tabs 03/25/23 [Rx Last Taken Unknown] sacubitril 24 mg-valsartan 26 mg tablet (Entresto) 1 tab PO BID #180 tabs 03/25/23 [Rx Last Taken Unknown] spironolactone 25 mg tablet 25 mg PO BID #180 tabs 03/25/23 [Rx Last Taken Unknown] dicyclomine 20 mg tablet 20 mg PO BID PRN abdominal pain #14 tabs 04/24/23 [Rx Last Taken Unknown] promethazine 25 mg tablet 25 mg PO TID PRN nausea and vomiting #14 tabs 04/24/23 [Rx Last Taken Unknown] Allergy/AdvReac Type Severity Reaction Status Date / Time No Known Allergies Allergy Verified 03/25/23 14:32 Family History Other Heart disease Surgical History History of appendectomy Hx of cholecystectomy Stented coronary artery (02/25/23) Social History Smoking Status: Former smoker ROS ROS ED Constitutional Constitutional ED: Denies chills or fever(s) Eyes Eyes: Denies change in vision ENT ENT ED: Denies rhinorrhea or sore throat Cardiovascular Cardiovascular: Denies chest pain or palpitations Respiratory/Chest Respiratory/Chest: Denies cough or dyspnea Gastrointestinal Gastrointestinal: Reports abdominal pain, nausea and vomiting; Denies diarrhea Genitourinary Genitourinary ED: Denies dysuria Musculoskeletal Musculoskeletal: Denies back pain or extremity pain Integumentary Denies Abrasions or rash Neurologic Neurologic: Denies headache(s) or weakness Psychiatric Psychiatric: Denies anxiety or depression Allergic/Immunologic Allergic/Immunologic ED: Denies lip swelling or urticaria EXAM Physical Exam Const Vital Signs: 04/24/23 14:22 04/24/23 14:21 Temperature 97 F L Temperature Source Temporal Pulse Rate 83 84 Respiratory Rate 21 H 18 Blood Pressure 152/70 H Blood Pressure Mean 97 Pulse Ox 95 99 Oxygen Delivery Method Room Air Positive well nourished and well developed General Appearance ED: well developed HEENT Reports normocephalic and head/scalp atraumatic Eyes PERRL and EOMs intact bilaterally Neck supple Chest Wall inspection of chest normal and palpation of chest normal Resp normal respiratory effort and clear to auscultation bilaterally Cardio regular rate and regular rhythm GI GI Narrative: Epigastric tenderness to palpation. Hypoactive bowel sounds. No guarding or rebound. Palpation: soft Back/Spine no CVA tenderness Extremity normal to inspection Neuro oriented x3 and no sensory deficits noted Sensorium / Orientation: alert Motor Exam: strength 5/5 throughout Psych mental status grossly normal Skin no rashes or lesions noted MDM MDM MDM Narrative Medical decision making narrative: Patient had received Zofran with EMS. Morphine given along with IV fluids. Labwork obtained to evaluate for leukocytosis, anemia, and electrolyte derangement. EKG obtained to evaluate for cardiac arrhythmia/ischemia. History & Record Review Discussion w/independent historian: EMS personnel and Patient Lab Data Attestation: I reviewed the patient's lab results. Labs: Laboratory Results - last 24 hr 04/24/23 14:11 WBC 12.2 H RBC 4.85 Hgb 13.9 Hct 42.2 MCV 87.0 MCH 28.7 MCHC 32.9 RDW Std Deviation 40.6 RDW Coeff of Ramos 12.9 Plt Count 406 MPV 9.8 Immature Gran % (Auto) 0.600 Neut % (Auto) 84.4 H Lymph % (Auto) 8.8 L [place] % (Auto) 5.3 Eos % (Auto) 0.2 Baso % (Auto) 0.7 Absolute Neuts (auto) 10.3 H Absolute Lymphs (auto) 1.07 Nucleated RBC % 0 Sodium 136 Potassium 3.9 Chloride 102 Carbon Dioxide 20.0 L Anion Gap 14 BUN 21 H Creatinine 1.29 H Estim Creat Clear Calc 37.88 Est GFR (MDRD) Af Amer 54 L Est GFR (MDRD) Non-Af 45 L BUN/Creatinine Ratio 16.3 Glucose 170 H Calcium 10.1 Total Bilirubin 0.90 Direct Bilirubin 0.23 AST 42 H ALT 82 H Alkaline Phosphatase 92 Troponin I High Sens 9 Total Protein 8.2 Albumin 4.3 Globulin 3.9 Lipase 28 EKG Initial EKG: Attestation: I personally reviewed and interpreted this EKG as follows: Interpretation: Sinus Rhythm (Sinus at 80 with LVH and repull changes. No significant change when compared to prior study from February 2023. No acute ischemia. QTc is noted to be prolonged at 500 ms.) Treatment and Re-Evaluation :: CBC was white count of 12.2 with 84% neutrophils. Hemoglobin normal at 13.9. Chemistry studies reveal slightly low bicarb at 20 with a BUN of 21 and a creatinine 1.29. Glucose is 170. LFTs reveal a AST of 42 and an ALT of 82. Troponin is normal at 9. Lipase is normal at 28. On repeat evaluation patient was feeling improved. She was given ice chips but did have recurrent nausea. Given her prolonged QTc Phenergan was given IM. She was also given a dose of Protonix IV as well as p.o. Bentyl. At this time patient does feel improved and will be given prescription for Phenergan and Bentyl at home. Return instructions provided. Abdominal exam remains benign and I do not feel imaging is needed at this time. Discharge Plan Triage Chief Complaint: Nausea/Vomiting ED Provider: Shira Oglesby Dx/Rx/DC Orders Clinical Impression: Epigastric abdominal pain, Nausea & vomiting Instructions: ED Vomiting (Adult), ED Epigastric Pain Uncertain Cause Prescriptions: New promethazine 25 mg tablet 25 mg PO TID PRN (Reason: nausea and vomiting) Qty: 14 0RF dicyclomine 20 mg tablet 20 mg PO BID PRN (Reason: abdominal pain) Qty: 14 0RF No Action celecoxib [Celebrex] 200 mg capsule 200 mg PO DAILY atorvastatin 80 mg tablet 80 mg PO QHS Qty: 90 3RF carvedilol 12.5 mg tablet 12.5 mg PO BID Qty: 180 3RF Rx Instructions: must administer with a meal/food clopidogrel 75 mg tablet 75 mg PO QHS Qty: 90 3RF Jardiance 10 mg tablet 10 mg PO DAILY Qty: 90 3RF furosemide 20 mg tablet 20 mg PO DAILY Qty: 90 3RF Entresto 24-26 mg tablet 1 tab PO BID Qty: 180 3RF spironolactone 25 mg tablet 25 mg PO BID Qty: 180 3RF aspirin [Adult Aspirin Regimen] 81 mg tablet,delayed release (DR/EC) 81 mg PO DAILY bupropion HCl 150 mg tablet sustained-release 12 hr 150 mg PO BID multivitamin with iron Tablet 1 tab PO DAILY sucralfate 1 gram tablet 1 g PO QACHS ascorbic acid (vitamin C) 500 mg tablet 500 mg PO DAILY sertraline 25 mg tablet 25 mg PO DAILY zinc gluconate 100 mg tablet 100 mg PO DAILY cholecalciferol (vitamin D3) 25 mcg (1,000 unit) capsule 125 mcg PO DAILY pantoprazole 40 MG tablet 40 mg PO DAILY Qty: 30 0RF venlafaxine [Effexor XR] 150 mg Capsule,Extended Release 24hr 150 mg PO DAILY buspirone [BuSpar] 10 mg Tablet 10 mg PO TID cyanocobalamin (vitamin B-12) [Vitamin B-12] 1,000 mcg Tablet 5,000 mcg PO DAILY Primary Care Provider: Rodney Griffin NP Referrals: Rodney Griffin NP, [facility] [Primary Care Provider] - 3-5 Days if not improving Disposition Disposition: Home, Self Care
[2023-04-24] MEDS: 0.9% Normal Saline 1,000 ML 1000 ML IV (15:03)
[2023-04-24] MEDS: Morphine 4 MG/ML Syringe IV (15:03)
[2023-04-24 15:06] LABS: Absolute Lymphocyte Count 1.07 X10^3/uL (0.83-4.51); Absolute Neutrophil Count 10.3 X10^3/uL (2.0-7.7); Basophil# 0.08 X10^3/uL; Basophil% 0.7 % (0-1); Eosinophil# 0.03 X10^3/uL; Eosinophils% 0.2 % (0-5); Hematocrit 42.2 % (37-47); Hemoglobin 13.9 g/dL (12.0-15.0); Lymphocyte # 1.07 X10^3/ul (0.83-4.51); Lymphocyte % 8.8 % (19-41); Mean Corp Hgb Conc 32.9 g/dL (32-36); Mean Corpuscular Hgb 28.7 pg (27.0-32.0); Mean Platelet Vol. 9.8 fl (6.2-12.0); Monocyte# 0.65 X10^3/uL; Monocyte% 5.3 % (0-10); NRBC Flagged by Analyzer 0 % (0-5); Neutrophil # 10.28 X10^3/uL (2.7-7.7); Neutrophil % 84.4 % (47-70); Platelet Count 406 K/mm3 (150-450); RBC Distribution Width CV 12.9 % (11.6-14.6); RBC Distribution Width SD 40.6 fl (35.1-43.9); Red Blood Count 4.85 M/mm3 (4.2-5.4); White Blood Count 12.2 K/mm3 (4.4-11.0)
[2023-04-24 15:18] LABS: AST(SGOT) 42 U/L (15-37); Alanine Aminotransfer ALT/SGPT 82 U/L (13-56); Albumin, Serum 4.3 g/dL (3.2-5.0); Alkaline Phosphatase 92 U/L (45-117); Anion Gap 14 (5-15); BUN 21 mg/dL (7-18); BUN/Creat Ratio 16.3 RATIO (10-20); Bilirubin, Direct 0.23 mg/dL (0.00-0.30); Calcium,Total 10.1 mg/dL (8.5-10.1); Chloride 102 mmol/L (98-107); Creatinine, Serum 1.29 mg/dL (0.55-1.02); EST Glomerular Filtration Rate 45 mL/min (>60); Est Glom Filt Rate - Afr Amer 54 mL/min (>60); Estimated Creatinine Clearance 37.88 ml/min; Globulin 3.9 g/dL (2.2-4.2); Glucose 170 mg/dL (74-106); Lipase 28 U/L (13-75); Potassium 3.9 mmol/L (3.5-5.1); Protein, Total 8.2 g/dL (6.4-8.2); Sodium Level 136 mmol/L (136-145); Troponin-I HS 9 pg/mL (3.0-54.0)
[2023-04-24] MEDS: Dicyclomine 10 MG Capsule 20 MG PO (16:56)
[2023-04-24] MEDS: proMETHazine 25 MG/ML Syringe 12.5 MG IM (17:29)
[2023-04-24 18:30] VITALS: BP 138/79; PULSE 82; RESP 16; O2SAT 98
== END 2023-04-24 18:32 | disposition home or self-care (01) ==
PROVIDERS: Emergency Provider Emergency Medicine; PCP Nurse Practitioner Family; Visit Provider Emergency Medicine
DX: R10.13 Epigastric pain (principal); I11.0 Hypertensive heart disease with heart failure; I50.42 Chronic combined systolic (congestive) and diastolic (congestive) heart failure; Z87.891 Personal history of nicotine dependence; I25.10 Atherosclerotic heart disease of native coronary artery without angina pectoris; R11.2 Nausea with vomiting, unspecified; Z90.49 Acquired absence of other specified parts of digestive tract
CPT/HCPCS: 80048; 80076; 83690; 84484; 85025; 93005; 96361; 96365; 96375; 99285; J7040; A4216

== ENCOUNTER → 2023-05-03 | Outpatient (CLI) | payer BC, SELFPAY ==
[2023-03-13 08:59] VITALS: BMI 28.5
[2023-05-03 09:31] LABS: ALB/GLOB Ratio 1.3 RATIO (0.9-2.4); AST(SGOT) 17 U/L (15-37); Alanine Aminotransfer ALT/SGPT 38 U/L (13-56); Albumin, Serum 3.8 g/dL (3.2-5.0); Alkaline Phosphatase 78 U/L (45-117); Anion Gap 8 (5-15); BUN 9 mg/dL (7-18); BUN/Creat Ratio 11.3 RATIO (10-20); Chloride 106 mmol/L (98-107); Cholesterol 132 mg/dL (200); EST Glomerular Filtration Rate 78 mL/min (>60); Est Glom Filt Rate - Afr Amer 94 mL/min (>60); Glucose 88 mg/dL (74-106); High Density Lipoprotein 44 mg/dL; Potassium 4.1 mmol/L (3.5-5.1); Protein, Total 6.8 g/dL (6.4-8.2); Sodium Level 141 mmol/L (136-145); Triglycerides 92 mg/dL; Very Low Density Lipoprotein 18 mg/dL (5-40)
[2023-05-03 09:41] LABS: Vitamin D,25 Hydroxy 59.7 ng/mL
[2023-05-03 09:42] LABS: Microalbumin,Random Urine 5.1 mg/L (NO RANGE EST.); Microalbumin:Creatinine Ratio 7.6 mg/g CRE (<30 mg/g CRE)
== END | disposition home or self-care (01) ==
PROVIDERS: PCP Nurse Practitioner Family; Referring Provider Nurse Practitioner Family; Visit Provider Nurse Practitioner Family
DX: E78.5 Hyperlipidemia, unspecified (principal); I10 Essential (primary) hypertension; R73.01 Impaired fasting glucose; E55.9 Vitamin D deficiency, unspecified
CPT/HCPCS: 36415; 80053; 80061; 82043; 82306; 82570

== ENCOUNTER 2023-05-13 08:00 | Outpatient (RCR) | payer BC, SELFPAY ==
[2023-03-13 08:59] VITALS: BMI 28.5
--- NOTE | 2023-05-10 07:00 | PCM.CR.ITP ---
Nutrition - Initial Assessment Weight Mgt (Other Care) Height: 5 ft 2 in Weight:: 164 lb 8 oz BMI: 30.0 Psychosocial - Initial Assess Target Goals Target Goals Referral to Behavioral Health PS - Interventions: Yes: Referral to Physician if PHQ-9 if score is 5-9: (Currently treated for depression) and Yes: Attend Stress Management Classes and No: Referral to Behavioral Health if PHQ-9 score >9: and No: Referral to [facility] Patient Health Questionnaire PHQ-9 Screening 60-Day Re-eval Assessment: 1. Little interest or pleasure in doing things: Several days 2. Feeling down, depressed, or hopeless: Not at all 3. Trouble falling or staying asleep, or sleeping too much: Not at all 4. Feeling tired or having little energy: Several days 5. Poor appetite or overeating: Several days 6. Feeling bad about yourself -- or that you are a failure or have let yourself or your family down: Not at all 7. Trouble concentrating on things, such as reading the newspaper or watching television: Not at all 8. Moving or speaking so slowly that other people could have noticed. Or the opposite - being so fidgety or restless that you have been moving around a lot more than usual: Not at all 9. Thoughts that you would be better off , or of hurting yourself in some way: Not at all How difficult have these problems made it for you to do your work, take care of things at home, or get along with other people?: Not difficult at all Total Score: 3 Self-Efficacy 6-Item Scale 60-Day Re-eval Assessment: We would like to know how confident you are in doing certain activities. Please select your confidence level for: Fatigue Select Number: 10 Physical Discomfort or Pain Select Number: 8 Emotional Distress Select Number: 8 Other Symptoms or Health Problems Select Number: 10 Different Tasks and Activities Select Number: 8 Medication Select Number: 9 Total Score:: 8 Nutrition Survey Nutrition Survey Instructions Scoring Instructions Exercise - 60-day Assessment Visit Date of Eval: 05/10/23 Session #:: 20 Physician Prescribed Exercise Modalities: Treadmill, Rower and Airdyne Frequency: 3x/week for 12 weeks [36 sessions] Intensity: 60-80% of age predicted maximum heart rate reserve Duration: 30 - 45 minutes Current METSs:: 5.0 Target Heart Rate:: 112-126 Current RPE:: 12-13 Maximum Excercise HR:: 114 Resting Blood Pressure: 114/56 Maximum Exercise Blood Pressure: 120/70 EKG Type: Sinus ryhythm to sinus tach with inverted T wave, occasional PVCs, bigemini Current Physical Activity or Exercising minutes: 44:24 Outcomes & Goals Goals:: Verbalizes understanding of THR, RPE & goal METS by session 6, Documents in home exercise log/reports 30 min aerobic 5 day/wk by DC and Demonstrates accurate pulse taking by DC Intervention & Plan Exercise Program Goals: Instruct on personal THR & RPE, Instruct on MET level & personal MET goal, Show patient to take own pulse /validate performance until accurate and Instruct on home exercise 30-day Reassessments 30 day Reassessments:: Met Physical Activity Home Exercise Physical Activity - Home Exercise: Safe Exercise, Warm-up, Self-monitoring, Cool-Down, Home Exercise > 30 min Daily and Sitting Time <3 hours/daily Outcomes & Goals Outcomes/Goals: Demonstrates correct Warm-up/exercise Cool-Down (S3) if = 2.5 METs, Verbalizes symptoms of exercise intolerance by Session 3 (S3) and Demonstrate safe equipment use (S3) & follows exercise prescrition (6) Intervention & Plan Plan/Intervention: Instruct warm-up & cool-down if exercising at > 2 METs, Instruct on symptoms of exercise intolerance & actions to take, Instruct & monitor on saf and Assess intial functional capacity & safety risk 30-day Reassessments 30 day Reassessments:: Met Nutrition - 30-Day Assessment Weight Mgt (Other Care) Height: 5 ft 2 in Weight:: 164 lb 8 oz BMI: 30.0 Nutrition - 60-Day Assessment Program Goals Nutrition Program Goals Patient has diagnosis of Hyperlipidemia (ICD E78)?: Yes Visit Date of Eval: 05/10/23 Session #:: 20 Cholesterol/Lipids (Other Core Measures) Total Triglycerides (mg/dL): 62 Total Cholesterol: 187 LDL Cholesterol (mg/dL): 135 HDL Cholesterol (mg/dL): 40 Lipid Medication: Rosuvastatin 20mg Intervention/Plan: Instruct on personal lipid levels & lipid goals/NCEP guidelines and Instruct on cholesterol Referral to dietitian:: Yes 30-day Reassessments:: Progressing Reassessment Notes & Comments:: Scheduled to see Nutrition Services Diabetes (Other Core Measures) Diabetes Type: Not Applicable Weight Mgt (Other Care) Height: 5 ft 2 in Weight:: 164 lb 8 oz BMI: 30.0 Diagnosis Overweight/Obesity BMI> 30% ICD-10 E66: Yes Diagnosis High BMI/Morbid Obesity BMI> 35% ICD-10 Z68: No Outcomes/Goals: Pt sets, maintains & shows weight loss goal & trend during rehab Intervention/Plan: Instruct on ideal BMI & set weight loss goal w/patient, Assist pt to ID & incorporate diet changes for weight loss by S9, Refer to Structured Weight Loss program as appropriate and Encourage goal of using 250-300dcal per session for weight loss 30 day Reassessments:: Not Met Reassessment Notes & Comments:: Patient weight is stable 60 days Healthy Eating Habits Will attend diet classes:: Yes Outcomes/Goals:: Consume diet rich in vegs,fruits,whole grain/high fiber,fish,lean meat and Limit sat/trans fats,cholesterol & added salts & sugars Intervention/Plan:: Assess current eating habits 30-day Reassessments:: Progressing Education Gave educational materials for:: Healthy eating Core - 60-Day Assessment Visit Date of Eval: 05/10/23 Session #:: 20 Medication Compliance Preventative Medication(s):: Aspirin, Clopidogrel/P2Y12 inhibit, Statin/lipid and Beta jaden H/O mental health issues: depression, anxiety, or addiction?: Yes Doesn?t believe in the benefits of treatment?: No Believes medications are unnecessary or harmful?: No Has a concern about medication side effects?: No Expresses concern over the cost of medications?: No Outcomes/Goals: Verbalizes medications,desired effect & common side effects @ DC, Pt self-reports following medication regimen and Keeps card in wallet w/medications listed by DC Interventions/plans: Instruct on medication effects & side effects, Review medication list w/patient every two weeks and Instruct importance of taking meds as ordered & assist problem solving 30-day Reassessments:: Met Tobacco Use Tobacco Use: Cigarettes Outcomes/Goals: Smoking cessation achieved or maintained by discharge and Identify aids/strategies for achieving smoking cessation by session 6 Interventions/plan: Instruct on effects of smoking & provide smoking cessation resource, Assist pt to set quit date & provide encouragement, Assist pt to develop strategies to achieve/maintain quit date and Assist pt w/nicotine replacement & medication for cessation success 30-day Reassessments:: Progressing Hypertension Hypertension Diagnosis:: Hypertension ICD-10 I10 Resting Blood Pressure:: 114/56 [place] [employer] Hypertension Guidelines Peak Exercise Blood Pressure:: 120/70 Outcomes/Goals: Able to verbalize/achieve optimal blood pressure <130/80 and Incorporates diet changes & exercise for blood pressure control by DC Interventions/plan: Instruct on optimal blood pressure, hypertension & medications and Instruct on effects of sodium, alcohol, stress, exercise &hypertension 30 day Reassessments:: Met Tobacco Cessation Referral Smoking Cessation Referral:: Yes Individual Education/Counseling:: Yes (Smoking Cessation support) Education Schedule Given:: Yes Psychosocial - 30-Day Assess Target Goals Target Goals Referral to Behavioral Health PS - Interventions: Yes: Referral to Physician if PHQ-9 if score is 5-9: (Currently treated for depression) and Yes: Attend Stress Management Classes and No: Referral to Behavioral Health if PHQ-9 score >9: and No: Referral to [facility] Outcomes/Goals: See list Psychosocial Outcomes/Goals:: ID's personal stressors & 2 strategies to manage stress by discharge Psychosocial - 60-Day Assess VIsit Date of Eval: 05/10/23 Session #:: 20 Not Applicable: No History of previous Mental disease:: Yes History of Emotional Disorders: Depression Target Goals Target Goals Psychosocial Test Tool Used:: PHQ-9 Questionnaire phq-9 Severity Referral to Behavioral Health PS - Interventions: Yes: Referral to Physician if PHQ-9 if score is 5-9: (Currently treated for depression) and Yes: Attend Stress Management Classes and No: Referral to Behavioral Health if PHQ-9 score >9: and No: Referral to [facility] Outcomes/Goals: See list Psychosocial Outcomes/Goals:: ID's personal stressors & 2 strategies to manage stress by discharge Intervention/Plan: See List Interventions/Plan:: Assess stressors,coping strategies & signs of derpression on admission, Instruct/assist pt to develop coping & personal stress Mgt strategies, Instruct patient to recognize signs & symptoms of depression and Instruct patient to recog 30-day Reassessments: 30 day Reassessments:: Progressing Psychosocial - 90-Day Assess Target Goals Target Goals Referral to Behavioral Health PS - Interventions: Yes: Referral to Physician if PHQ-9 if score is 5-9: (Currently treated for depression) and Yes: Attend Stress Management Classes and No: Referral to Behavioral Health if PHQ-9 score >9: and No: Referral to [facility] Psychosocial - Final Assessmen Target Goals Target Goals Referral to Behavioral Health PS - Interventions: Yes: Referral to Physician if PHQ-9 if score is 5-9: (Currently treated for depression) and Yes: Attend Stress Management Classes and No: Referral to Behavioral Health if PHQ-9 score >9: and No: Referral to [facility] Nutrition - 90-Day Assessment Weight Mgt (Other Care) Height: 5 ft 2 in Weight:: 164 lb 8 oz BMI: 30.0 Nutrition - Final Assessment Weight Mgt (Other Care) Height: 5 ft 2 in Weight:: 164 lb 8 oz BMI: 30.0
[2023-05-10 07:13] VITALS: BP 114/56
== END 2023-05-13 23:59 ==
LOC: CR 08:00
PROVIDERS: PCP Nurse Practitioner Family; Referring Provider Internal Medicine Cardiovascular Disease; Visit Provider Internal Medicine Cardiovascular Disease
DX: Z95.5 Presence of coronary angioplasty implant and graft (principal); I47.20 Ventricular tachycardia, unspecified; I25.10 Atherosclerotic heart disease of native coronary artery without angina pectoris
CPT/HCPCS: 93798

== ENCOUNTER → 2023-05-21 | Outpatient (CLI) | payer BC, SELFPAY ==
[2023-03-13 08:59] VITALS: BMI 28.5
--- NOTE | 2023-05-21 07:41 | ECHOL_ITS ---
Reason For Study: Cardiomyopathy Procedure This was a limited 2D transthoracic echocardiogram. Myocardial strain analysis was performed in this exam to aid in the assessment of cardiac function. Exam performed in department. Left Ventricle Moderately dilated left ventricle. The estimated ejection fraction is 15 %. There is severe global hypokinesis of the left ventricle. Right Ventricle Normal RV size. Normal systolic function. Atria Normal left atrium. Normal right atrium. Mitral Valve Normal mitral valve. Tricuspid Valve Normal tricuspid valve. Aortic Valve Trisinus/trileaflet aortic valve. Pulmonic Valve Normal pulmonic valve. Great Vessels Normal aortic root. The pulmonary artery is normal size. Normal inferior vena cava. Pericardium/Pleural No pericardial effusion. MMode/2D Measurements & Calculations LVIDd: 6.8 cm IVSd: 0.81 cm LA dimension: 4.4 cm LVIDs: 6.1 cm LVPWd: 1.0 cm FS: 11.0 % LVAd ap4: 42.3 cm2 LVAd ap2: 39.7 cm2 SV(MOD-sp4): 49.9 ml LVLd ap4: 8.7 cm LVLd ap2: 8.5 cm EDV(MOD-sp4): 172.0 ml EDV(MOD-sp2): 150.7 ml EDV(sp4-el): 174.7 ml EDV(sp2-el): 157.7 ml LVAs ap4: 33.5 cm2 LVAs ap2: 32.9 cm2 LVLs ap4: 7.7 cm LVLs ap2: 7.9 cm ESV(MOD-sp4): 122.1 ml ESV(MOD-sp2): 112.7 ml ESV(sp4-el): 123.6 ml ESV(sp2-el): 116.7 ml EF(MOD-sp4): 29.0 % EF(MOD-sp2): 25.2 % EF(sp4-el): 29.3 % SV(MOD-sp2): 38.0 ml SV(sp4-el): 51.1 ml Time Measurements MV dec time: 0.17 sec Doppler Measurements & Calculations MV E max maru: 50.4 cm/sec MV A max maru: 114.5 cm/sec MV E/A: 0.44 ECHO/Echo, Limited Study Interpretation Summary Moderately dilated left ventricle. The estimated ejection fraction is 15 %. There is severe global hypokinesis of the left ventricle. The global longitudinal strain is severely abnormal. Compared to previous study , the left ventricular systolic function is the same.. Ordering Physician: Lashay Prater Performed By: Shahzad Jones RCS
== END | disposition home or self-care (01) ==
LOC: CVS 07:40
PROVIDERS: PCP Nurse Practitioner Family; Referring Provider Nurse Practitioner Gerontology; Visit Provider Nurse Practitioner Gerontology
DX: I25.5 Ischemic cardiomyopathy (principal)
CPT/HCPCS: 93308

== ENCOUNTER 2023-05-22 08:00 | Outpatient (RCR) | payer BC, SELFPAY ==
[2023-05-14 00:11] VITALS: BP 114/56
== END 2023-06-13 23:59 ==
LOC: CR 08:00
PROVIDERS: PCP Nurse Practitioner Family; Referring Provider Internal Medicine Cardiovascular Disease; Visit Provider Internal Medicine Cardiovascular Disease
DX: I25.10 Atherosclerotic heart disease of native coronary artery without angina pectoris (principal); I47.20 Ventricular tachycardia, unspecified; Z95.5 Presence of coronary angioplasty implant and graft
CPT/HCPCS: 93798

== ENCOUNTER → 2023-09-18 | Outpatient (CLI) | payer BC, SELFPAY ==
--- NOTE | 2023-09-18 12:12 | ECHOL_ITS ---
Reason For Study: Re-assess LV function, Isch CMP Procedure This was a limited 2D transthoracic echocardiogram. Myocardial strain analysis was performed in this exam to aid in the assessment of cardiac function. Exam performed in department. Left Ventricle Normal LV size. Apical false tendon noted. The estimated ejection fraction is 45 %. There is mild global hypokinesis of the left ventricle. Right Ventricle Normal RV size. Normal systolic function. Atria Normal left atrium. Normal right atrium. Aortic Valve Trisinus/trileaflet aortic valve. Mild focal aortic valve calcification. Pulmonic Valve Normal pulmonic valve. Great Vessels Normal aortic root. Pericardium/Pleural No pericardial effusion. MMode/2D Measurements & Calculations LVIDd: 6.4 cm IVSd: 0.95 cm Ao root diam: 2.9 cm LVIDs: 5.1 cm LVPWd: 1.1 cm RVDd: 3.1 cm FS: 20.9 % LAV(MOD-bp): 61.5 ml LVAd ap4: 46.0 cm2 LVAd ap2: 42.1 cm2 LAV(MOD-bp) Indexed: 35.4 ml/m2 LVLd ap4: 9.8 cm LVLd ap2: 9.6 cm LAV(MOD-sp2): 60.0 ml EDV(MOD-sp4): 182.4 ml EDV(MOD-sp2): 158.1 ml LAV(MOD-sp4): 63.7 ml EDV(sp4-el): 183.1 ml EDV(sp2-el): 157.1 ml LVAs ap4: 31.5 cm2 LVAs ap2: 30.2 cm2 LVLs ap4: 8.4 cm LVLs ap2: 8.7 cm ESV(MOD-sp4): 106.7 ml ESV(MOD-sp2): 94.8 ml ESV(sp4-el): 99.6 ml ESV(sp2-el): 88.4 ml EF(MOD-sp4): 41.5 % EF(MOD-sp2): 40.1 % EF(sp4-el): 45.6 % SV(MOD-sp4): 75.7 ml SV(MOD-sp2): 63.4 ml SV(sp4-el): 83.5 ml LA A4 area: 20.7 cm2 LA dimension(2D): 4.6 cm RA A4 area: 14.6 cm2 ECHO/Echo, Limited Study Interpretation Summary Normal LV size. The estimated ejection fraction is 45 %. There is mild global hypokinesis of the left ventricle. Compared to previous study, the left ventricular systolic function has improved .. Ordering Physician: Lashay Prater Referring Physician: Rodney Griffin Performed By: Zhanna Alvarado RDCS
== END | disposition home or self-care (01) ==
LOC: CVS 12:12
PROVIDERS: PCP Nurse Practitioner Family; Referring Provider Nurse Practitioner Gerontology; Visit Provider Nurse Practitioner Gerontology
DX: I25.5 Ischemic cardiomyopathy (principal)
CPT/HCPCS: 93308

== ENCOUNTER → 2023-11-13 | Outpatient (CLI) | payer BC, SELFPAY ==
--- OUTSIDE RECORDS SUMMARY | 2023-11-13 06:57 | XMS RPT_ITS | CCD ---
Author Name Unknown Address [address] [place] [address] Organization [facility] Care Team Providers Care Cloth Washer Operator Name Role Phone Rodney Griffin CNP Primary Care Provider 1( [phone] LORI RECREATION ENGINEER - RELEASE ENGINEERRODNEY Primary Care Phys ician RAFY WILLIAMSON-RELEASE ENGINEERSAMEER Attending RODNEY Gaviria CNP Primary Care Unavaila Rodney Leigh CNP Primary Care Provider OLY NAVARRO Attending Unavailable RAKEL REY Admitting Unavailable BRENDA HAQUE Referring Unavailab SHARON Coleman Consulting Unavailable RODNEY GRIFFIN Primary Care Unavailable SHAY PIERSON Attending Unavailable RODNEY GRIFFIN Primary Care Unavailable SHAY PIERSON Attending Unavailable RODNEY GRIFFIN Primary Care Unavailable RODNEY GRIFFIN Primary Care Unavailable SHAY PIERSON Attending Unavailable RODNEY GRIFFIN Referring Unavailable RODNEY GRIFFIN Primary Care Unavailable Jackie Schneider Attending Unavailable SONY CEDEÑO Referring Unavailable RODNEY GRIFFIN Primary Care Unavailable Allergies Allergy Classification Reported Allergen(s) Allergy Type Date of Onset Reaction(s) Facility (13 sources) Adhesive Tape; Translations: [ADHESIVE TAPE (ROSINS)] Allergy to substance 09-10-2012 Rash [facility] (1 source) Nicotine; Translations: [nicotine] Drug Allergy [facility] Medications Current Medications Medication Drug Class(es) Dates Sig (Normalized) Sig (Original) atorvastatin 80 mg oral tablet (3 sources) HMG-CoA Reductase Inhibitor Start: 07-12-2023 End: 08-11-2023 take 0.5 tablet by mouth once daily at bedtime atorvastatin (LIPITOR) 80 mg tablet Take 0.5 tablets by mouth daily at bedtime. 15 tablet 0 07/12/2023 08/11/2023 Active Completed/Discontinued Medications Medication Drug Class(es) Dates Sig (Normalized) Sig (Original) ascorbic acid 500 mg oral tablet (10 sources) Vitamin C take 500 mg by mouth once daily ascorbic acid (VITAMIN C ORAL) Take 500 mg by mouth once daily. 0 Active Problems Active Problems Problem Classification Problem Date Documented Date Episodic/Chronic Abdominal pain (2 sources) Epigastric pain; Translations: [Epigastric pain] Episodic Alcohol-related disorders (3 sources) Alcohol abuse; Translations: [Alcohol abuse, uncomplicated] Onset: 02-28-2023 03-01-2023 Chronic Cardiac dysrhythmias (3 sources) Nonsustained ventricular tachycardia ; Translations: [NSVT (nonsustained ventricular tachycardia)] Onset: 02-26-2023 03-01-2023 Chronic Chronic obstructive pulmonary disease and bronchiectasis (6 sources) Chronic obstructive lung disease; Translations: [Chronic obstructive pulmonary disease with (acute) exacerbation] Onset: 09-21-2022 03-10-2020 Chronic Congestive heart failure; nonhypertensive (8 sources) Acute on chronic combined systolic and diastolic heart failure; Translations: [Acute on chronic combined systolic (congestive) and diastolic (congestive) heart failure] Onset: 02-26-2023 02-26-2023 Chronic Coronary atherosclerosis and other heart disease (18 sources) Coronary arteriosclerosis; Translations: [Atherosclerotic heart disease of [place] coronary artery without angina pectoris] Onset: 09-10-2012 09-10-2012 Chronic Diabetes mellitus without complication (1 source) Impaired fasting glycemia 03-10-2020 Episodic Disorders of lipid metabolism (13 sources) Hypercholesterolemia; Translations: [Pure hypercholesterolemia, unspecified] Onset: 08-29-2016 08-29-2016 Chronic Essential hypertension (12 sources) Hypertensive disorder; Translations: [Essential (primary) hypertension] Onset: 08-29-2016 08-29-2016 Chronic Gastritis and duodenitis (1 source) Gastritis; Translations: [Other gastritis without bleeding] Episodic Mood disorders (1 source) Depressive disorder 03-10-2020 Chronic Nausea and vomiting (2 sources) Nausea and vomiting; Translations: [Nausea with vomiting, unspecified] Episodic Nutritional deficiencies (1 source) Vitamin D deficiency 03-14-2021 Chronic Other non-traumatic joint disorders (1 source) Knee pain 04-25-2020 Episodic Other nutritional; endocrine; and metabolic disorders (10 sources) Obesity; Translations: [Obesity, unspecified] Onset: 08-29-2016 08-29-2016 Chronic Other screening for suspected conditions (not mental disorders or infectious disease) (14 sources) Patient encounter status; Translations: [Encounter for screening for malignant neoplasm of intestinal tract, unspecified] Onset: 10-02-2012 10-02-2012 Episodic Dania-; endo-; and myocarditis; cardiomyopathy (except that caused by tuberculosis or sexually transmitted disease) (3 sources) Cardiomyopathy; Translations: [Other cardiomyopathies] Onset: 02-27-2023 03-01-2023 Chronic Residual codes; unclassified (1 source) Increased body mass index 09-29-2021 Episodic Substance-related disorders (3 sources) Nicotine dependence; Translations: [Nicotine dependence, unspecified, uncomplicated] Onset: 02-26-2023 02-26-2023 Chronic Unclassified (1 source) Ventricular tachyarrhythmia (HCC); Translations: [Ventricular tachyarrhythmia (HCC)] Onset: 02-26-2023 Past or Other Problems Problem Classification Problem Date Documented Da te Episodic/Chronic Coronary atherosclerosis and other heart disease (3 sources) History of percutaneous coronary intervention; Translations: [Coronary angioplasty status] Onset: 02-27-2023 02-27-2023 Episodic Other disorders of stomach and duodenum (10 sources) Gastroparesis syndrome; Translations: [Gastroparesis] Onset: 08-29-2016 08-29-2016 Episodic Residual codes; unclassified (3 sources) Tobacco user; Translations: [Tobacco use] Onset: 02-26-2023 02-26-2023 Episodic Results Test Name Value Interpretation Reference Range Facil ity Vital Signs Date Time Vital Sign Value Performing Clinician Kelby ordoñez 07-12-2023 12:19-0400 Body weight 74.03 kg Shay Pierson APRN.CNP Work Phone: [facility] 07-12-2023 12:19-0400 Diastolic blood pressure 76 mm[Hg] Shay Pierson APRN.CNP Work Phone: [facility] 07-12-2023 12:19-0400 Heart rate 69 /min Shay Aurin RECREATION ENGINEER.RELEASE ENGINEER Work Phone: [facility] 07-12-2023 12:19-0400 SaO2% (BldA) [Mass fraction] 98 % Shay Callesin RECREATION ENGINEER.RELEASE ENGINEER Work Phone: [facility] 07-12-2023 12:19-0400 Systolic blood pressure 139 mm[Hg] Shay Stevanin RECREATION ENGINEER.RELEASE ENGINEER Work Phone: [facility] 08-14-2022 08:45-0400 Body height 160 cm Aracelis Shannon MD Work Phone: [facility] 08-14-2022 08:45-0400 Body weight 78.47 kg Aracelis Shannon MD Work Phone: [facility] 08-14-2022 08:45-0400 Diastolic blood pressure 76 mm[Hg] Aracelis Shannon MD Work Phone: [facility] 08-14-2022 08:45-0400 Systolic blood pressure 132 mm[Hg] Aracelis Shannon MD Work Phone: [facility] 08-09-2022 12:18-0400 Diastolic blood pressure 80 mm[Hg] Sony Cedeño MD Work Phone: [facility] 08-09-2022 12:18-0400 Heart rate 71 /min Sony Cedeño MD Work Phone: [facility] 08-09-2022 12:18-0400 Respiratory rate 16 /min Sony Cedeño MD Work Phone: [facility] 08-09-2022 12:18-0400 SaO2% (BldA) [Mass fraction] 94 % Sony Cedeño MD Work Phone: [facility] 08-09-2022 12:18-0400 Systolic blood pressure 146 mm[Hg] Sony Cedeño MD Work Phone: [facility] 08-09-2022 10:39-0400 Body temperature 97.2 [degF] Sony Cedeño MD Work Phone: [facility] 07-17-2022 14:54-0400 Body height 160 cm Sony Cedeño MD Work Phone: [facility] 07-17-2022 14:54-0400 Body temperature 96.8 [degF] Sony Cedeño MD Work Phone: [facility] 07-17-2022 14:54-0400 Body weight 78.47 kg Sony Cedeño MD Work Phone: [facility] 07-17-2022 14:54-0400 Diastolic blood pressure 64 mm[Hg] Sony Cedeño MD Work Phone: [facility] 07-17-2022 14:54-0400 Heart rate 68 /min Sony Cedeño MD Work Phone: [facility] 07-17-2022 14:54-0400 SaO2% (BldA) [Mass fraction] 96 % Sony Cedeño MD Work Phone: [facility] 07-17-2022 14:54-0400 Systolic blood pressure 124 mm[Hg] Sony Cedeño MD Work Phone: [facility] Encounters Encounter Date Encounter Type Care Provider Facility Start: 08-30-2023 End: 08-30-2023 ambulatory RODNEY GRIFFIN Facility:[facility] Start: 08-30-2023 End: 08-30-2023 Subsequent hospital visit by [facility] Procedures Date Procedure Procedure Detail Performing Clinician Start: 02-27-2023 History of appendectomy History of appendectomy Melissa Anaya APRN.RELEASE ENGINEER Work Phone: Start: 02-27-2023 History of cholecystectomy History of cholecystectomy Melissa Anaya RECREATION ENGINEER.RELEASE ENGINEER Work Phone: Start: 08-14-2022 End: 08-14-2022 Mammography Aracelis Shannon MD Work Phone: Start: 08-09-2022 Level iv surg pathology gross&microscopic exam Sony Cedeño MD Work Phone: Start: 08-09-2022 Esophagogastroduodenoscopy transoral diagnostic Sony Cedeño MD Work Phone: Start: 05-16-2021 Mammography Sony Cedeño MD Work Phone: Start: 09-13-2016 Colonoscopy Sony Cedeño MD Work Phone: Start: 08-02-2012 Lipid 1996 panel - Serum or Plasma Shay Dangelo RECREATION ENGINEER.RELEASE ENGINEER Work Phone: Cardiac catheterization TRISHA HILLMAN RECREATION ENGINEER-RELEASE ENGINEER Cholecystectomy SAMEER REESE RECREATION ENGINEER-RELEASE ENGINEER Entire heart (body structure) SAMEER HILLMAN RECREATION ENGINEER-RELEASE ENGINEER Plan of Treatment Date Care Activity Detail Author Start: 09-13-2026 Colonoscopy COLONOSCOPY [facility] Start: 09-13-2026 COLORECTAL CANCER SCREENING COLORECTAL CANCER SCREENING [facility] Start: 05-16-2026 HPV TESTING HPV TESTING [facility] Start: 05-16-2026 PAP TESTING PAP TESTING [facility] Start: 03-01-2026 DIABETES SCREEN DIABETES SCREEN [facility] Start: 03-01-2026 Diabetes Screening Diabetes Screening [facility] Start: 03-07-2024 BP CONTROLLED (<130/80) BP CONTROLLED (<130/80) [facility] in Start: 02-28-2024 PNEUMOCOCCAL (2 - PCV) PNEUMOCOCCAL (2 - PCV) [facility] Start: 02-28-2024 Pneumococcal vaccination Pneumococcal Vaccine (2 - PCV) [facility] Start: 08-14-2023 Mammography [facility] Start: 07-17-2023 BP CONTROLLED (<130/80) BP CONTROLLED (<130/80) [facility] in Start: 06-14-2023 Covid-19 Vaccine () Covid-19 Vaccine () [facility] Start: 06-14-2023 Influenza vaccination [facility] Start: 10-14-2022 DEPRESSION ASSESSMENT DEPRESSION ASSESSMENT [facility] Start: 06-14-2022 Influenza vaccination INFLUENZA (#1) [facility] Start: 05-16-2022 Mammography MAMMOGRAM [facility] Start: 2022 RSV Vaccine (1 - 1-dose 60+ series) RSV Vaccine (1 - 1-dose 60+ series) [facility] Start: 11-23-2021 COVID-19 VACCINE (5 - Booster for Pfizer series) COVID-19 VACCINE (5 - Booster for Pfizer series) [facility] Start: 11-23-2021 COVID-19 VACCINE (5 - Booster) COVID-19 VACCINE (5 - Booster) [facility] Start: 11-23-2021 Covid-19 Vaccine (6 - Pfizer series) Covid-19 Vaccine (6 - Pfizer series) [facility] Start: 10-14-2021 DEPRESSION ASSESSMENT DEPRESSION ASSESSMENT [facility] Start: 08-22-2019 DIABETES SCREEN DIABETES SCREEN [facility] Start: 08-02-2017 Lipid 1996 panel - Serum or Plasma Lipid Screening [facility] Start: 08-02-2017 LIPID SCREEN LIPID SCREEN [facility] Start: 2012 SHINGRIX VACCINE (1 of 2) SHINGRIX VACCINE (1 of 2) [facility] Start: 2007 COLOGUARD (FIT-DNA) COLOGUARD (FIT-DNA) [facility] Start: [address] COLONOGRAPHY [facility] Start: 2007 FECAL OCCULT BLOOD FECAL OCCULT BLOOD [facility] Start: 2007 SIGMOIDOSCOPY SIGMOIDOSCOPY [facility] Start: 1992 Zoledronic acid therapy ALPHA-1 ANTITRYPSIN DEFICIENCY SCREENING [facility] Start: 1981 Urine microalbumin profile [facility] Start: 1980 ANNUAL PCP TEAM CHRONIC DISEASE VISIT ANNUAL PCP TEAM CHRONIC DISEASE VISIT [facility] Start: 1980 BP CONTROLLED (<130/80) BP CONTROLLED (<130/80) [facility] in[facility] Start: 1980 Hepatitis B surface antibody level LDL CHOLESTEROL [facility] Start: 1980 HEPATITIS C SCREENING HEPATITIS C SCREENING [facility] Start: 1980 HIV SCREENING HIV SCREENING [facility] Start: 1980 SPIROMETRY SPIROMETRY [facility] Start: 1968 PNEUMOCOCCAL (1 - PCV) PNEUMOCOCCAL (1 - PCV) [facility] End: 09-13-2023 Dxa bone density study / sites axial skel DXA-AXIAL SKELETON Radiology Routine Screening for osteoporosis 1 Occurrences starting 08/14/2022 until 09/13/2023 [facility] Work Phone: Immunizations Immunization Date Immunization Notes Care Provider Piotr martin 02-27-2023 pneumococcal polysaccharide vaccine, 23 valent Melissa Anaya RECREATION ENGINEER.RELEASE ENGINEER Work Phone: [facility] 01-27-2021 SARS-CoV-2 mRNA (tozinameran) vaccine SAMEER RAFY RECREATION ENGINEER-RELEASE ENGINEER [facility] [employer] 01-26-2021 COVID-19 original vaccine, age 12+ yr, monovalent (PFIZER-BIONTECH - PURPLE TOP) Sony Cedeño MD Work Phone: [facility] Work Phone: 01-06-2021 SARS-CoV-2 mRNA (tozinameran) vaccine SAMEER HILLMAN RECREATION ENGINEER-RELEASE ENGINEER [facility] [employer] 12-26-2020 COVID-19 original vaccine, age 12+ yr, monovalent (PFIZER-BIONTECH - PURPLE TOP) Sony Cedeño MD Work Phone: [facility] Work Phone: Payers Date Payer Category Payer Unknown [employer] PPO [id number] 2015-Present [phone] [facility] [address] [place] [address] PPO [id number] 2015 Unknown [id number] 1960 Unknown [id number] Social History Date Type Detail Facility [facility]: [facility] End: 02-22-2023 History of tobacco use Cigarette Smoker [facility] Start: 07-06-2015 End: 06-07-2023 Cigarettes smoked current (pack per day) - Reported 0.5 [facility] Start: 07-06-2015 End: 02-27-2023 Tobacco use and exposure Smokeless tobacco non-user [facility] Start: 07-17-2022 Alcohol intake Current non-dr tile fitter of alcohol (finding) [facility] Start: 1960 Sex Assigned At Not on file [facility] Start: 07-07-2022 End: 08-14-2022 Exposure to SARS-CoV-2 (event) Not sure [facility] Start: 08-14-2022 End: 07-12-2023 Alcohol intake Current drinker of alcohol (finding) [facility] Start: 07-03-2019 Tobacco smoking status Heavy t obacco smoker (finding) [facility] Sex Assigned At Female [facility] Start: 02-27-2023 Tobacco smoking stat us NHIS Ex-smoker [facility] Work Phone: End: 02-22-2023 History of tobacco use Current smoker [facility] Work Phone: Start: 06-07-2023 End: 07-12-2023 Tobacco use panel [facility] National Score (1-10 0), lower number is lower risk 78 [facility] Clinical Notes 09-10-2012 to 07-12-2023 Patient InstructionsShay Pierson APRN.MELODY - 07/12/2023 12:00 PM EDTTelephone Encounter - Melissa Anaya APRN.CNP - 03/25/2023 10:16 AM Ez Schneider PA-C - 09/07/2022 10:36 AM EST Note Date & Type Note Facility 07-12-2023 Note HNO ID: [id number] Author: Shay Pierson APRN.MELODY Service: ? Author Type: Nurse Practitioner Type: Progress Notes Filed: 07/12/2023 12:38 PM Note Text: Heart and Vascular [facility] OUTPATIENT VISIT DATE July 12, 2023 OUTPATIENT VISIT TYPE ESTABLISHED PRIMARY CARE PHYSICIAN: TRUDY Rendon CNP CHIEF COMPLAINT: Patient presents with: Breathing Problem HISTORY OF PRESENT ILLNESS: Vishal Kidd is a 63 year old female who presents today for a follow-up visit in the Heart Failure Clinic. The patient was last seen in office 06/07. The following changes were made at that time: adjusted lasix to every other day as dose of entresto was increased. The patient has had 1 hospital admissions in the past 12 months. The last admission was from 02/26 to 03/01 for management of nonsustained ventricular tachycardia. Cardiology was consulted. Echocardiogram was performed showing reduced ejection fraction of 15-20%. Cardiac cath done on 02/25 showed 80% stenosis to RCA. The patient was supposed to be sent home on lisinopril with transition to entresto however, at time of discharge patient experienced 34 beat run of ventricular tachycardia. She was transferred to [facility] for possible ICD placement. Electrophysiology was consulted. Recommended life vest and repeat echo in 3 months. Cardiology also started patient on carvedilol, jardiance and aldactone along with entresto. Today, the patient reports feeling very well. She follows with a auto inspection specialist in [place]. Every once in awhile she feels a tightness in her back that lasts only seconds. This occurs rarely. Denies shortness of breath, chest pain, dizziness, lightheadedness, fever, chills, leg swelling. Reports epigastric pain that occurs intermittently and lasts only a few seconds. No aggravating factors. During her last visit with cardiology, she states her coreg was increased to optimize therapy. Would repeat echo in 3 months. States her last echo was in May showing ejection fraction of 15-20%. Has cut back on smoking but hasn't quit entirely. Drinks twice a week. Consumes 3-4 wine coolers. 7-8 cigarettes in a day. Monitors her sodium. Does not add salt to things. Avoids deli meats. Denies monitoring fluid intake. Consumes 5 cans of soda each day. Took blood pressure this morning and states it was 124/72 mmHg this was prior to her morning medications. Monitors blood pressure intermittently. IMPRESSION: NYHA Functional Class: II Stage: C heart failure Vishal Kidd is a 62 year-old female who presents to the Heart Failure Clinic to establish care. She appears euvolemic on examination. Reviewed all medications with patient. Will increase entresto to 97-103 mg BID. She is to use what she has as a trial and see if she is able to tolerate this. Reviewed signs and symptoms with patient on when to decrease if needed. She is to call the office in 1-2 weeks to report symptoms. States she is scheduled for an echo in August and cardiology appt on 09/17. Encouraged smoking cessation, monitoring sodium and fluid intake. Reviewed plan of care with patient. All questions answered at this time. PLAN AND RECOMMENDATIONS: 1. Chronic systolic heart failure (HCC) - ICD9: 428.22, ICD10: I50.22 (primary diagnosis) - daily weights, call office if weight increases 3-4 lbs in a 1-4 day period -2 gm low sodium diet -activity as tolerated, rest breaks as needed -GDMT: entresto, spironolactone, lasix QOD, coreg, jardiance -titrate entresto to 97-103 mg BID -lasix to as needed -repeat echo end of year -follow up in HF clinic 12/26 or sooner if needed 2. Ischemic cardiomyopathy - ICD9: 414.8, ICD10: I25.5 -EF 20% -repeat echo 3 months once GDMT is optimized -repeat echo in [place] shows 15% Per the patient- no outside records present during visit 3. Hyperlipidemia, unspecified hyperlipidemia type - ICD9: 272.4, ICD10: E78.5 -continue statin therapy 4. Primary hypertension - ICD9: 401.9, ICD10: I10 -BP suboptimal during visit 139/76 mmHg -encourage DASH/low sodium diet -encourage exercise with rest breaks as needed -goal BP <130/80 mmHg -continue home BP monitoring 5. Coronary artery disease involving [place] coronary artery of [place] heart without angina pectoris - ICD9: 414.01, ICD10: I25.10 -stable -s/p C on 02/25 -on aspirin and BB Follow up appointment with Cardiology in Dr. Moe Washington to be scheduled. PAST MEDICAL HISTORY Diagnosis Date Cataract of left eye COPD (chronic obstructive pulmonary disease) (HCC) Dilated cardiomyopathy (HCC) 02/27/2023 Dysplasia of cervix, unspecified High cholesterol History of percutaneous coronary intervention 02/27/2023 Hypertension Non morbid obesity 08/29/2016 Ventricular tachycardia, nonsustained (HCC) 02/26/2023 PAST SURGICAL HISTORY Procedure Laterality Date CATARACT SURGERY, COMPLEX 09/29/2012 L (more content not included)... [facility] 07-12-2023 Instructions Shay Pierson, CLAY.RELEASE ENGINEER - 07/12/2023 12:27 PM EDT Continue current medications as prescribed. Please increase dose of entresto to 97-103 mg twice a day. Finish your old prescription with 49-51 mg and take two tablets in the morning and two tablets in the evening. Monitor blood pressure 2-3 hours after morning dose and record. Call office 1-2 weeks to report symptoms. If you become dizzy, lightheaded go back to 49-51 mg twice a day dosing. If blood pressures drop below 100/50 mmHg, please go back to 49-51 mg twice a day dosing. START taking lasix as needed only. Take this for 3-4 lb weight gain in 1-2 days or increased shortness of breath. 2. Weigh yourself daily. Call me if your weight increases by 3-4 pounds in a 1-4 day period of time. 3. Continue low salt (2000 mg per day) diet. 4. Be as active as you are able. If you get tired, just stop and rest for a while. 5. Come back and see me on SaturdayDecember 26 at 1200. If you have any question or concern, you can call me at [phone]. documented in this encounter [facility] 07-12-2023 History of Presen t illness Narrative Images from the original note were not included. Heart and Vascular [facility] OUTPATIENT VISIT DATE July 12, 2023 OUTPATIENT VISIT TYPE ESTABLISHED PRIMARY CARE PHYSICIAN: TRUDY Rendon, RELEASE ENGINEER CHIEF COMPLAINT: Patient presents with: Breathing Problem HISTORY OF PRESENT ILLNESS: Vishal Kidd is a 63 year old female who presents today for a follow-up visit in the Heart Failure Clinic. The patient was last seen in office 06/07. The following changes were made at that time: adjusted lasix to every other day as dose of entresto was increased. The patient has had 1 hospital admissions in the past 12 months. The last admission was from 02/26 to 03/01 for management of nonsustained ventricular tachycardia. Cardiology was consulted. Echocardiogram was performed showing reduced ejection fraction of 15-20%. Cardiac cath done on 02/25 showed 80% stenosis to RCA. The patient was supposed to be sent home on lisinopril with transition to entresto however, at time of discharge patient experienced 34 beat run of ventricular tachycardia. She was transferred to [facility] for possible ICD placement. Electrophysiology was consulted. Recommended life vest and repeat echo in 3 months. Cardiology also started patient on carvedilol, jardiance and aldactone along with entresto. Today, the patient reports feeling very well. She follows with a auto inspection specialist in [place]. Every once in awhile she feels a tightness in her back that lasts only seconds. This occurs rarely. Denies shortness of breath, chest pain, dizziness, lightheadedness, fever, chills, leg swelling. Reports epigastric pain that occurs intermittently and lasts only a few seconds. No aggravating factors. During her last visit with cardiology, she states her coreg was increased to optimize therapy. Would repeat echo in 3 months. States her last echo was in May showing ejection fraction of 15-20%. Has cut back on smoking but hasn't quit entirely. Drinks twice a week. Consumes 3-4 wine coolers. 7-8 cigarettes in a day. Monitors her sodium. Does not add salt to things. Avoids deli meats. Denies monitoring fluid intake. Consumes 5 cans of soda each day. Took blood pressure this morning and states it was 124/72 mmHg this was prior to her morning medications. Monitors blood pressure intermittently. IMPRESSION: NYHA Functional Class: II Stage: C heart failure Vishal Kidd is a 62 year-old female who presents to the [facility] Failure Clinic to establish care. She appears euvolemic on examination. Reviewed all medications with patient. Will increase entresto to 97-103 mg BID. She is to use what she has as a trial and see if she is able to tolerate this. Reviewed signs and symptoms with patient on when to decrease if needed. She is to call the office in 1-2 weeks to report symptoms. States she is scheduled for an echo in August and cardiology appt on 09/17. Encouraged smoking cessation, monitoring sodium and fluid intake. Reviewed plan of care with patient. All questions answered at this time. PLAN AND RECOMMENDATIONS: 1. Chronic systolic heart failure (HCC) - ICD9: 428.22, ICD10: I50.22 (primary diagnosis) - daily weights, call office if weight increases 3-4 lbs in a 1-4 day period -2 gm low sodium diet -activity as tolerated, rest breaks as needed -GDMT: entresto, spironolactone, lasix QOD, coreg, jardiance -titrate entresto to 97-103 mg BID -lasix to as needed -repeat echo end of year -follow up in HF clinic 12/26 or sooner if needed 2. Ischemic cardiomyopathy - ICD9: 414.8, ICD10: I25.5 -EF 20% -repeat echo 3 months once GDMT is optimized -repeat echo in [place] shows 15% Per the patient- no outside records present during visit 3. Hyperlipidemia, unspecified hyperlipidemia type - ICD9: 272.4, ICD10: E78.5 -continue statin therapy 4. Primary hypertension - ICD9: 401.9, ICD10: I10 -BP suboptimal during visit 139/76 mmHg -encourage DASH/low sodium diet -encourage exercise with rest breaks as needed -goal BP <130/80 mmHg -continue home BP monitoring 5. Coronary artery disease involving [place] coronary artery of [place] heart without angina pectoris - ICD9: 414.01, ICD10: I25.10 -stable -s/p LHC on 02/25 -on aspirin and BB Follow up appointment with Cardiology in Dr. Moe [place] to be scheduled. PAST MEDICAL HISTORY Diagnosis Date Cataract of left eye COPD (chronic obstructive pulmonary disease) (HCC) Dilated cardiomyopathy (HCC) 02/27/2023 Dysplasia of cervix, unspecified High cholesterol History of percutaneous coronary intervention 02/27/2023 Hypertension Non morbid obesity 08/29/2016 Ventricular tachycardia, nonsustained (HCC) 02/26/2023 PAST SURGICAL HISTORY Procedure Laterality Date CATARACT SURGERY, COMPLEX 09/29/2012 Lt eye CHOLECYSTECTOMY HX 10/14/2005 COLONOSCOPY FLX DX W/COLLJ SPEC WHEN PFRMD 09/13/2016 Colonoscopy (MAC) EGD DIAGNOSTIC 08/09/2022 ESOPHAGOGASTRODUODENOSCOPY TRANSORAL DIAGNOSTIC 09/13/2016 EGD (MAC) INSERT INTRACORONARY STENT 2006 PCI/stent to RCA INSERT INTRACORONARY STENT 02/25/2023 PCI/stent to in-stent restenosis of previously placed RCA stent KNEE LEFT OP SURGERY Left 05/2020 LIG/TRNSXJ FLP TUBE ABDL/VAG APPR UNI/BI PAST SURGICAL HISTORY OF 05/14/2012 polyp removed from esoph STEREO LOC FOR CORE BRST BX RT 10/13/2012 TONSILLECTOMY & ADENOIDECTOMY <AGE 14 TONSILLECTOMY HX Social History Tobacco Use Smoking status: Former Packs/day: 0.50 Years: 20.00 Additional pack years: 0.00 Total pack years: 10.00 Types: Cigarettes Quit date: 02/22/2023 Years since quittin.3 Smokeless tobacco: Never Vaping Use Vaping Use: Never used Substance Use Topics Alcohol use: Yes Alcohol/week: 42.0 standard drinks of alcohol Types: 42 Cans of Beer (12oz) per week Drug use: Yes Comment: marijuana use-last evening Family History Problem Relation Age of Onset Breast Cancer Mother Hypertension Mother Heart Mother Coronary Artery Disease Mother Hypertension Father Cancer Father Lymphoma Hypertension Brother ALLERGIES Allergen Reactions Adhesive Tape (Alejandra* Rash CURRENT MEDICATIONS: Current Outpatient Medications Medication Sig Dispense Refill ENTRESTO 49-51 mg tablet Take 49-51 tablets by mouth twice daily. furosemide (LASIX) 20 mg tablet Take 1 tablet by mouth every other day in the morning. Take as needed for 3-4 lb weight gain in 1-2 days. carvedilol (COREG) 12.5 mg tablet Take 1 tablet by mouth twice daily with meals. 120 tablet 3 aspirin 81 mg chewable tablet Chew 1 tablet by mouth once daily. 30 tablet 0 empagliflozin (JARDIANCE) 10 mg tablet Take 1 tablet by mouth once daily. 30 tablet 0 atorvastatin (LIPITOR) 80 mg tablet Take 1 tablet by mouth daily at bedtime. 30 tablet 0 buPROPion SR (WELLBUTRIN SR) 150 mg 12 hr tablet Take 1 tablet by mouth twice daily. 60 tablet 0 clopidogrel (PLAVIX) 75 mg tablet Take 1 tablet by mouth once daily. 30 tablet 0 spironolactone (ALDACTONE) 25 mg tablet Take 1 tablet by mouth twice daily. 60 tablet 0 nicotine (NICODERM) 7 mg/24 hr Apply 1 Patch as directed every 24 hours for 28 days. 28 Patch 0 sucralfate (CARAFATE) 1 gram tablet Take one tablet by mouth before meals and at bedtime as needed 100 tablet 0 ZINC ORAL Take by mouth once daily. ascorbic acid (VITAMIN C ORAL) Take 500 mg by mouth once daily. sertraline (ZOLOFT) 25 mg tablet Take 25 mg by mouth once daily. For 30 days venlafaxine ER (EFFEXOR XR) 150 mg 24 hr capsule Take 150 mg by mouth once daily. busPIRone (BUSPAR) 10 mg tablet Take 10 mg by mouth three times daily. cholecalciferol (VITAMIN D3) 5,000 unit tab Take 1,000 Units by mouth once daily. cyanocobalamin (VITAMIN B-12) 1,000 mcg tab Take 1,000 mcg by mouth once daily. MULTIVIT-MINERALS/FERROUS FUM (MULTI VITAMIN ORAL) Take by mouth once daily. pantoprazole DR (PROTONIX) 40 mg tablet Take 40 mg by mouth once daily. No current facility-administered medications for this visit. REVIEW OF SYSTEMS: GENERAL: Negative for: Weight loss or gain, Fever or Chills, Weakness and Sleep difficulties. HEENT: Negative for: Headache, Impaired Vision, Glasses, Hearing Impairment, Ringing in Ears, Nosebleeds, Poor Dental Care, Bleeding Gums and Dentures. NECK: Negative for: Swelling, Pain, Stiffness RESPIRATORY: Negative for: Cough, Blood in Sputum, Shortness of breath, Wheezing, Apnea GASTROINTESTINAL: Negative for: Trouble swallowing, Heartburn, Change in bowel habits, Blood in stool, Dark black stools MUSCULOSKELETAL: Negtive for: Muscle or joint pain, stiffness, Joint swelling NEUROLOGIC/PSYCHIATRIC: Negative for: Weakness, Paralysis, Numbness, Tingling, Tremor, Nervousness or anxiety, Depressed mood, Memory loss SKIN: Negative for: Rash, Itching HEMATOLOGICAL/LYMPHATIC: Positive for: Easy bruising and Easy bleeding ENDOCRINE: Negative for: Heat or Cold Intolerance, Excessive Sweating, Frequent Urination, Frequent Thirst PHYSICAL EXAMINATION: BP 139/76 Pulse 69 Wt 74 kg (163 lb 3.2 oz) LMP 03/05/2012 (Approximate) SpO2 98% BMI 28.01 kg/m General: Normal exam, no distress Skin: No clubbing, no cyanosis. Eyes: Extra ocular movements intact Neck: Neck veins are not distended Lungs: Chest clear to auscultation Heart: Rhythm: regular rate and rhythm, Rate: normal, no murmur Abdomen: Normal Extremities: Normal exam of the extremities Peripheral Pulses: Normal CARDIOVASCULAR MEDICINE TESTING: Latest Reference Range & Units 03/01/23 04:42 Sodium 136 - 144 mmol/L 136 Potassium 3.7 - 5.1 mmol/L 4.1 Chloride 97 - 105 mmol/L 100 CO2 22 - 30 mmol/L 24 BUN 7 - 21 mg/dL 15 Creatinine 0.58 - 0.96 mg/dL 0.69 Glucose 74 - 99 mg/dL 100 (H) Calcium 8.5 - 10.2 mg/dL 9.8 Magnesium 1.7 - 2.3 mg/dL 2.1 Anion Gap 9 - 18 mmol/L 12 eGFR >=60 mL/min/1.73m 99 (H): Data is abnormally high No echo performed at [facility]. Patient states echo was done in [place] in May. I have personally reviewed the Laboratory Testing and Echocardiogram. COUNSELING: We discussed the following non-pharmacological measures during this visit: Smoking and alcohol abstinence/cessation, if applicable Dietary and medication compliance Monitoring daily weights and blood pressures Exercise regimen When to call our office Heart Failure Education Booklet: Previously given. Discussed red flags and when to call MD/[facility] or go to ED. Medications reconciled at end of visit: yes I spent 30 minutes in this visit, with more than 50% of the time devoted to patient counseling. SIGNATURE: Shay Pierson APRN.CNP PATIENT NAME: Vishal Kidd DATE: July 12, 2023 TIME: 1201 documented in this encounter [facility] 06-07-2023 Note HNO ID: [id number] Author: Shay Pierson APRN.CNP Service: ? Author Type: Nurse Practitioner Type: Progress Notes Filed: 06/07/2023 12:42 PM Note Text: Heart and Vascular [facility] Heart Failure Clinic OUTPATIENT VISIT DATE June 07, 2023 OUTPATIENT VISIT TYPE ESTABLISHED PRIMARY CARE PHYSICIAN: TRUDY Rendon CNP CHIEF COMPLAINT: Patient presents with: Breathing Problem Leg Edema HISTORY OF PRESENT ILLNESS: Vishal Kidd is a 63 year old female who presents today for a follow-up visit in the Heart Failure Clinic. The patient was last seen in office 03/07. The following changes were made at that time: increase coreg to 12.5 mg BID, start lasix PRN. Past medical history is significant for systolic heart failure with ejection fraction 20%, nonsustained ventricular tachycardia, hypertension, hypercholesterolemia, dilated cardiomyopathy, chronic obstructive pulmonary disease, s/p [facility] with stent placement on 02/25 revealing 50% stenosis in the LAD with 80% in-stent restenosis in the mid RCA and history of alcohol abuse. The patient has had 1 hospital admissions in the past 12 months. The last admission was from 02/26 to 03/01 for management of nonsustained ventricular tachycardia. Cardiology was consulted. Echocardiogram was performed showing reduced ejection fraction of 15-20%. Cardiac cath done on 02/25 showed 80% stenosis to RCA. The patient was supposed to be sent home on lisinopril with transition to entresto however, at time of discharge patient experienced 34 beat run of ventricular tachycardia. She was transferred to [facility] for possible ICD placement. Electrophysiology was consulted. Recommended life vest and repeat echo in 3 months. Cardiology also started patient on carvedilol, jardiance and aldactone along with entresto. Today, the patient reports feeling very well. Denies chest pain, fever, chills, dizziness, lightheadedness, shortness of breath, leg swelling. Was participating in cardiac rehab however, this was cost prohibitive for her so she is taking some time away but would like to return when financially able. She states she has a primary auto inspection specialist at [place] in which she had an echocardiogram that she says ejection fraction was still at 15%. No results are in [facility] as the are from outside hospital. She had her entresto increased to the middle dose. This has been approx 2 weeks and she has tolerated this well. Has started smoking again 1/2 ppd. Restarted this about 3 weeks ago. Has been out of her Wellbutrin which needs. Monitors sodium intake well. Has trouble monitoring fluids daily. Has been taking lasix every day. IMPRESSION: NYHA Functional Class: II Stage: C heart failure Vishal Kidd is a 62 year-old female who presents to the Heart Failure Clinic to establish care. She appears euvolemic on examination. Will adjust her lasix to every other day as her entresto was increased. She is to call the office if she feels her weight is increasing. No other changes made. Reviewed all medications with patient. Discussed smoking cessation briefly. Encouraged daily activity, monitor fluids and sodium intake. Reviewed plan of care with patient. All questions answered at this time. PLAN AND RECOMMENDATIONS: 1. Chronic systolic heart failure (HCC) - ICD9: 428.22, ICD10: I50.22 (primary diagnosis) - daily weights, call office if weight increases 3-4 lbs in a 1-4 day period -2 gm low sodium diet -activity as tolerated, rest breaks as needed -GDMT: entresto, spironolactone, lasix QOD, coreg, jardiance -? Increase entresto during next appt -repeat echo end of year -follow up in HF clinic 07/12 or sooner if needed 2. Ischemic cardiomyopathy - ICD9: 414.8, ICD10: I25.5 -EF 20% -repeat echo 3 months once GDMT is optimized -repeat echo in [place] shows 15% Per the patient- no outside records present during visit 3. Hyperlipidemia, unspecified hyperlipidemia type - ICD9: 272.4, ICD10: E78.5 -continue statin therapy 4. Primary hypertension - ICD9: 401.9, ICD10: I10 -BP suboptimal during visit mmHg -encourage DASH/low sodium diet -encourage exercise with rest breaks as needed -goal BP <130/80 mmHg -continue home BP monitoring 5. Coronary artery disease involving [place] coronary artery of [place] heart without angina pectoris - ICD9: 414.01, ICD10: I25.10 -stable -s/p C on 02/25 -on aspirin and BB Follow up appointment with Cardiology in Dr. Moe [place] to be scheduled. PAST MEDICAL HISTORY Diagnosis Date Cataract of left eye COPD (chronic obstructive pulmonary disease) (HCC) Dilated cardiomyopathy (HCC) 02/27/2023 Dysplasia of cervix, unspecified High cholesterol History of percutaneous coronary intervention 02/27/2023 Hypertension Non morbid obesity 08/29/2016 Ventricular tachycardia, nonsustained (HCC) 02/26/2023 PAST SURGICAL HISTORY Procedure Laterality Date CATARACT (more content not included)... [facility] 03-25-2023 Miscellaneous Notes I spoke with [facility] regarding the denial of the Lifevest, she does not meet [facility]'s criteria for the Lifevest, as an ICD would need to be indicated for the Lifevest to be covered, currently ICD not indicated until after 90 days of GDMT. Unfortunately, the Lifevest has been declined. Melissa Anaya APRN.RELEASE ENGINEER documented in this encounter [facility] 03-07-2023 Note HNO ID: [id number] Author: Shay Pierson APRN.CNP Service: ? Author Type: Nurse Practitioner Type: Progress Notes Filed: 03/07/2023 11:18 AM Note Text: Heart and Vascular [facility] Heart Failure Clinic OUTPATIENT VISIT DATE March 07, 2023 OUTPATIENT VISIT TYPE NEW PRIMARY CARE PHYSICIAN: TRUDY Rendon CNP REFERRING PHYSICIAN: No referring provider defined for this encounter. CHIEF COMPLAINT: Patient presents with: Breathing Problem Heart Failure HISTORY OF PRESENT ILLNESS: Vishal Kidd is a 62 year old female who presents today for an initial visit to the Heart Failure Clinic. The patient has not yet established with cardiology. Past medical history is significant for systolic heart failure with ejection fraction 20%, nonsustained ventricular tachycardia, hypertension, hypercholesterolemia, dilated cardiomyopathy, chronic obstructive pulmonary disease, s/p [facility] with stent placement on 02/25 revealing 50% stenosis in the LAD with 80% in-stent restenosis in the mid RCA and history of alcohol abuse. The patient has had 1 hospital admissions in the past 12 months. The last admission was from 02/26 to 03/01 for management of nonsustained ventricular tachycardia. Cardiology was consulted. Echocardiogram was performed showing reduced ejection fraction of 15-20%. Cardiac cath done on 02/25 showed 80% stenosis to RCA. The patient was supposed to be sent home on lisinopril with transition to entresto however, at time of discharge patient experienced 34 beat run of ventricular tachycardia. She was transferred to [facility] for possible ICD placement. Electrophysiology was consulted. Recommended life vest and repeat echo in 3 months. Cardiology also started patient on carvedilol, jardiance and aldactone along with entresto. Today, the patient reports feeling tired but overall better. She was in the hospital for a week and attributes to the lengthy hospital stay. Denies shortness of breath, chest pain, dizziness, lightheadedness, fever, chills, leg swelling, orthopnea. Sleeps with her bed elevated only for comfort. Weighs daily. Monitors blood pressure daily. Has been monitoring her sodium intake. Does not add salt to things but uses Nu Salt which is sodium free. It is made from potassium chloride. Monitors her fluid. Likes to chew on ice. Drinks gatorade. She reports losing a lot of weight since she has been so nauseous the last few months. She has quit smoking and does not drink anymore since admission. Her last cigarette was the Saturday before she was admitted. She states her weights normally 190-200's lbs. She is scheduled to see a GI specialist on 03/14 for nausea. She has not been nauseous up until yesterday. IMPRESSION: NYHA Functional Class: II Stage: C heart failure Vishal Kidd is a 62 year-old female who presents to the Heart Failure Clinic to establish care. She appears euvolemic on examination. Will have her record blood pressure and heart rate. In weeks will evaluate possibility of increasing entresto. In the interim, will have her hold her lasix and take this on an as needed basis. Will have her increase her Coreg to 12.5 mg BID as heart rate in mid 80's and to optimize GDMT. BMP ordered for 7-10 days to reassess kidney function and potassium. Encouraged daily exercise. Continue to not smoke and drink. Monitor fluids and sodium intake. Reviewed plan of care with patient. All questions answered at this time. PLAN AND RECOMMENDATIONS: ASSESSMENT/PLAN: 1. Chronic systolic heart failure (HCC) - ICD9: 428.22, ICD10: I50.22 (primary diagnosis) - daily weights, call office if weight increases 3-4 lbs in a 1-4 day period -2 gm low sodium diet -activity as tolerated, rest breaks as needed -GDMT: entresto, spironolactone, lasix PRN, coreg -will increase coreg to 12.5 mg BID -start lasix PRN only for 3-4 lb wt gain -will increase entresto in 2 weeks if able -BMP in 7-10 days to reassess kidney and K+ -call office in 2 weeks to review BP and HR -follow up in HF clinic 06/07 or sooner if needed 2. Ischemic cardiomyopathy - ICD9: 414.8, ICD10: I25.5 -EF 20% -repeat echo 3 months once GDMT is optimized 3. Hyperlipidemia, unspecified hyperlipidemia type - ICD9: 272.4, ICD10: E78.5 -continue statin therapy 4. Primary hypertension - ICD9: 401.9, ICD10: I10 -BP suboptimal during visit 116/64 mmHg -encourage DASH/low sodium diet -encourage exercise with rest breaks as needed -goal BP <130/80 mmHg -continue home BP monitoring 5. Coronary artery disease involving [place] coronary artery of [place] heart without angina pectoris - ICD9: 414.01, ICD10: I25.10 -stable -s/p [facility] on 02/25 -on aspirin and BB Follow up appointment with Cardiology in [place], Dr. Rosa to be scheduled. PAST MEDICAL HISTORY Diagnosis Date Cataract of left eye COPD (chronic obstructive pulmonary disease) (HCC) Dilated cardiomyopa (more content not included)... [facility] 03-01-2023 Note HNO ID: [id number] Author: Carlo Gallardo Service: ? Author Type: ? Type: Plan of Care Filed: 03/01/2023 4:14 PM Note Text: PHARMACY BEDSIDE DELIVERY SERVICE Patient Name: Vishal Kidd The marked outpatient medications were Filled at: [place] and delivered to the patient's bedside to patient. Medication List START taking these medications aspirin 81 mg chewable tablet Chew 1 tablet by mouth once daily. Start taking on: March 02, 2023 Replaces: PINKY ASPIRIN 325 mg tablet atorvastatin 80 mg tablet Commonly known as: LIPITOR Take 1 tablet by mouth daily at bedtime. carvedilol 6.25 mg tablet Commonly known as: COREG Take 1 tablet by mouth twice daily with meals. ENTRESTO 24-26 mg tablet Generic drug: sacubitril-valsartan Take 1 tablet by mouth twice daily. furosemide 20 mg tablet Commonly known as: LASIX Take 1 tablet by mouth once daily. Start taking on: March 02, 2023 JARDIANCE 10 mg tablet Generic drug: empagliflozin Take 1 tablet by mouth once daily. nicotine 7 mg/24 hr Commonly known as: NICODERM Apply 1 Patch as directed every 24 hours for 28 days. spironolactone 25 mg tablet Commonly known as: ALDACTONE Take 1 tablet by mouth twice daily. CHANGE how you take these medications clopidogrel 75 mg tablet Commonly known as: PLAVIX Take 1 tablet by mouth once daily. What changed: how much to take CONTINUE taking these medications buPROPion SR 150 mg 12 hr tablet Commonly known as: WELLBUTRIN SR Take 1 tablet by mouth twice daily. busPIRone 10 mg tablet Commonly known as: BUSPAR cholecalciferol 5,000 unit Tab Commonly known as: VITAMIN D3 cyanocobalamin 1,000 mcg Tab Commonly known as: VITAMIN B-12 MULTI VITAMIN ORAL pantoprazole DR 40 mg tablet Commonly known as: PROTONIX sertraline 25 mg tablet Commonly known as: ZOLOFT sucralfate 1 gram tablet Commonly known as: CARAFATE Take one tablet by mouth before meals and at bedtime as needed venlafaxine ER 150 mg 24 hr capsule Commonly known as: EFFEXOR XR VITAMIN C ORAL ZINC ORAL You might also be taking other medications not listed above. If you have questions about any of your other medications, talk to the person who prescribed them or your Primary Care Provider. STOP taking these medications PINKY ASPIRIN 325 mg tablet Generic drug: aspirin Replaced by: aspirin 81 mg chewable tablet CALCIUM CARBONATE-VITAMIN D2 ORAL lisinopril 40 mg tablet Commonly known as: ZESTRIL metoprolol tartrate (short acting) 50 mg tablet Commonly known as: LOPRESSOR rosuvastatin 10 mg tablet Commonly known as: CRESTOR Valsartan-hydroCHLOROthiazide 320-12.5 mg per tablet Carlo Gallardo PAGER: Carlo Gallardo ([facility]) [phone] March 01, 2023 4:12 PM [facility] 03-01-2023 Note HNO ID: [id number] Author: Oly Navarro DO Service: Hospital Medicine Author Type: Physician Type: Progress Notes Filed: 03/01/2023 1:14 PM Note Text: Documentation Query Based on your medical judgment of the clinical indicators outlined below, please clarify the condition: (Please type X next to your response and sign) Clinical Indicators: Admission BMI: 27.93 02/27/23, Nutrition: Intake History: Nutrition Intake Prior to Admission: Less than 75 percent estimated energy needs greater than or equal to 3 months Current Nutrition Intake: NPO Nutrition Assessment: Recommended Malnutrition Diagnosis: Mild Protein-Calorie Malnutrition In the context of: Chronic Illness or Injury Based on: Insufficient Energy Intake Problem: Suboptimal oral intake Related to: Chronic illness As evidenced by: Medical condition Treatment: Care Plan: Follow for diet advancement to goal Monitor and Evaluation: Meet greater than 75% of estimated needs, Monitor fluid/electrolyte balance, Monitor bowel function, Monitor labs, I/Os, vital signs, weight Discharge Recommendations: Diet Diet: Heart Healthy Please clarify the Patient's Nutritional Status: x Mild Protein Calorie Malnutrition based on the above assessment, plan, and treatment Other, please specify [facility] 02-28-2023 Note HNO ID: [id number] Author: Oly Navarro DO Service: Hospital Medicine Author Type: Physician Type: Progress Notes Filed: 02/28/2023 4:41 PM Note Text: DEPARTMENT OF HOSPITAL MEDICINE PROGRESS NOTE SERVICE DATE: 02/28/2023 SERVICE TIME: 4:29 PM Hospital Medicine/Primary Attending: Oly Navarro DO NIGHT AND WEEKEND COVERAGE: DE KALB COVERAGE: After 7pm, please call cross cover pager #[phone] Subjective She denies current chest pain, lightheadedness, syncope, shortness of breath, nausea or vomiting INTERVAL HPI: This is a 62-year-old female with known congestive heart failure systolic and diastolic, CAD status post stent who presented to [facility] a few days ago for severe nausea and vomiting and initially there was a concern about sepsis and pneumonia but that was ruled out and did not require further antibiotic, patient started with conservative treatment and evaluated by GI for her nausea vomiting but it was felt that no need for endoscopy while she is there. The patient was evaluated by cardiology due to acute on chronic diastolic and systolic congestive heart failure and had ejection fraction was moderately reduced at 15-20%, she had a cardiac cath done on 02/25 which showed 80% stenosis to the stent for the RCA which was open and had new stent placed. The patient was on lisinopril with a plan to transition her to [facility]. The patient was a planned to be discharged from [place], but then she had a 34 run of V. tach/wide-complex tachycardia so decision was to transfer her to [facility] for ICD evaluation as that was being considered there. EP recommending life vest on discharge and will need repeat ECHO in 3 months. General cardiology consulted and entresto was added. MEDICATIONS: Reviewed Objective PHYSICAL EXAM: BP 135/74 Pulse 72 Temp (Src) 98.4 (Oral) Resp 18 Ht 5' 4 (1.63m) Wt 162 lb 11.2 oz (73.8kg) SpO2 95% LMP 03/05/2012 BMI 27.91 kg/(m2). O2 Therapy: Room Air Physical Exam Performed GENERAL: Alert, no distress, cooperative SKIN: Skin color, texture, turgor normal. No rashes or lesions. EYES: PERRLA, EOMI OROPHARYNX: Lips, mucosa, and tongue normal. Teeth and gums normal. Oropharynx normal. LUNGS: Lungs clear to auscultation, Good diaphragmatic excursion CARDIAC: Normal S1 and S2; no rubs, murmurs, or gallops ABDOMEN: Abdomen soft, non-tender, BS normal, No masses or organomegaly EXTREMITIES: Extremities normal, no deformities, edema, clubbing or skin discoloration. Good capillary refill., No ulcers Lines, Drains, and Airways Line Duration Peripheral 02/26/23 1500 Assessment Left Antecubital 20 Gauge 2 days Peripheral 02/26/23 1500 Assessment Right Antecubital 20 Gauge 2 days Reviewed lines and needs to be continued: REASONS: Telemetry and Electrolyte replacement DATA: Diagnostic tests reviewed for today's visit: Most recent labs and imaging results. Telemetry reviewed, patient is in sinus rhythm with occasional PVC and 3-5 beat episodes of NSVT, no sustained runs of VTACH BMP without flores or electrolyte abnormality Assessment/Plan Principal Problem: Ventricular tachyarrhythmia (HCC) POA: Yes Assessment AND Plan: EP consulted, appreciate further recommendations, continue coreg 6.25 mg BID, continue telemetry Active Problems: Coronary artery disease involving [place] coronary artery POA: Yes Assessment AND Plan: continue beta jaden, ASA, plavix, statin Hypertension POA: Yes Assessment AND Plan: well controlled, continue coreg, lasix, aldacone Acute on chronic combined systolic and diastolic CHF (congestive heart failure) (HCC) POA: Yes Assessment AND Plan: continue lasix 20 mg daily, continue aldactone 25 mg, jardiance, entresto started today, patient looks euvolemic on exam. Trend potassium and magnesium Tobacco abuse POA: Yes Assessment AND Plan: continue wellbutrin, encourage cessation Resolved Problems: * No resolved hospital problems. * Medication and Non-Pharmacologic VTE Prophylaxis/Anticoagulants Anticoagulant AND Antiplatelet Medications (From admission, onward) Start Dose Route Frequency Last Action Ordered Stop 02/27/23 0900 clopidogrel 75 mg tab(s) (PLAVIX) 75 mg ORAL DAILY Given, 02/28 0824 02/26/23 1637 -- 02/26/23 1830 aspirin 81 mg chewable tab(s) 81 mg ORAL DAILY Given, 02/28 0824 02/26/23 1827 -- 02/26/23 1645 activity - mobilize patient (ky,oh) VTE Prophylaxis:On hold pending need for EP procedure Disposition: To be determined Plan of care discussed with: Provider, RN, Patient SIGNATURE: Oly Navarro DO PATIENT NAME: Vishal Kidd DATE: February 28, 2023 TIME: 4:29 PM etx [id number] [facility] 02-27-2023 Note HNO ID: [id number] Author: Oly Navarro DO Service: Hospital Medicine Author Type: Physician Type: Progress Notes Filed: 02/27/2023 2:21 PM Note Text: DEPARTMENT OF HOSPITAL MEDICINE PROGRESS NOTE SERVICE DATE: 02/27/2023 SERVICE TIME: 2:09 PM Hospital Medicine/Primary Attending: Oly Navarro DO NIGHT AND WEEKEND COVERAGE: DE KALB COVERAGE: After 7pm, please call cross cover pager #[phone] Subjective She denies current chest pain, lightheadedness, syncope, shortness of breath, nausea or vomiting INTERVAL HPI: This is a 62-year-old female with known congestive heart failure systolic and diastolic, CAD status post stent who presented to [facility] a few days ago for severe nausea and vomiting and initially there was a concern about sepsis and pneumonia but that was ruled out and did not require further antibiotic, patient started with conservative treatment and evaluated by GI for her nausea vomiting but it was felt that no need for endoscopy while she is there. The patient was evaluated by cardiology due to acute on chronic diastolic and systolic congestive heart failure and had ejection fraction was moderately reduced at 15-20%, she had a cardiac cath done on 02/25 which showed 80% stenosis to the stent for the RCA which was open and had new stent placed. The patient was on lisinopril with a plan to transition her to [facility]. The patient was a planned to be discharged from [facility], but then she had a 34 run of V. tach/wide-complex tachycardia so decision was to transfer her to [facility] for ICD evaluation as that was being considered there. Patient is currently awaiting EP evaluation. MEDICATIONS: Reviewed Objective PHYSICAL EXAM: BP 128/75 Pulse 78 Temp (Src) 98.2 (Oral) Resp 18 Ht 5' 4 (1.63m) Wt 162 lb 11.2 oz (73.8kg) SpO2 95% LMP 03/05/2012 BMI 27.91 kg/(m2). O2 Therapy: Room Air Physical Exam Performed GENERAL: Alert, no distress, cooperative SKIN: Skin color, texture, turgor normal. No rashes or lesions. EYES: PERRLA, EOMI OROPHARYNX: Lips, mucosa, and tongue normal. Teeth and gums normal. Oropharynx normal. LUNGS: Lungs clear to auscultation, Good diaphragmatic excursion CARDIAC: Normal S1 and S2; no rubs, murmurs, or gallops ABDOMEN: Abdomen soft, non-tender, BS normal, No masses or organomegaly EXTREMITIES: Extremities normal, no deformities, edema, clubbing or skin discoloration. Good capillary refill., No ulcers Lines, Drains, and Airways Line Duration Peripheral 02/26/23 1500 Assessment Left Antecubital 20 Gauge <1 day Peripheral 02/26/23 1500 Assessment Right Antecubital 20 Gauge <1 day Reviewed lines and needs to be continued: REASONS: Telemetry and Electrolyte replacement DATA: Diagnostic tests reviewed for today's visit: Most recent labs and imaging results. Telemetry reviewed, patient is in sinus rhythm with occasional PVC, no sustained runs of VTACH BMP without flores or electrolyte abnormality Assessment/Plan Principal Problem: Ventricular tachyarrhythmia (HCC) POA: Yes Assessment AND Plan: EP consulted, appreciate further recommendations, continue coreg 6.25 mg BID, continue telemetry Active Problems: Coronary artery disease involving [place] coronary artery POA: Yes Assessment AND Plan: continue beta jaden, ASA, plavix, statin Hypertension POA: Yes Assessment AND Plan: well controlled, continue coreg, lasix, aldacone Acute on chronic combined systolic and diastolic CHF (congestive heart failure) (HCC) POA: Yes Assessment AND Plan: continue lasix 20 mg BID, continue aldactone 25 mg, jardiance, patient looks euvolemic on exam. Trend potassium and magnesium Tobacco abuse POA: Yes Assessment AND Plan: continue wellbutrin, encourage cessation Resolved Problems: * No resolved hospital problems. * Medication and Non-Pharmacologic VTE Prophylaxis/Anticoagulants Anticoagulant AND Antiplatelet Medications (From admission, onward) Start Dose Route Frequency Last Action Ordered Stop 02/27/23 0900 clopidogrel 75 mg tab(s) (PLAVIX) 75 mg ORAL DAILY Given, 02/27 0839 02/26/23 1637 -- 02/26/23 1830 aspirin 81 mg chewable tab(s) 81 mg ORAL DAILY Given, 02/27 0836 02/26/23 1827 -- 02/26/23 1645 activity - mobilize patient (fl,oh) VTE Prophylaxis:On hold pending need for EP procedure Disposition: To be determined Plan of care discussed with: Provider, RN, Patient SIGNATURE: Oly Navarro DO PATIENT NAME: Vishal Kidd DATE: February 27, 2023 TIME: 2:09 PM etx [id number] [facility] 09-21-2022 HCoV 229E RNA FERCHO+non-probe Ql (Nph) Not Detected *NA* (09/21/22 5:46 PM) [facility]ero [facility] 09-07-2022 Note HNO ID: [id number] Author: Jackie Schneider PA-C Service: ? Author Type: Physician Production Checker Type: Progress Notes Filed: 09/07/2022 11:20 AM Note Text: In lieu of an in-person visit due to COVID-19 concerns, a virtualvisit was performed on the patient. Patient is aware that I am not fully able to assess symptoms and do a full physical examination including vital signs assessment at this time. Patient consents to this encounter. FOLLOW UP VISIT - ENDOSCOPY NAME: Vishal Kidd CLINIC NO.: [id number] DATE OF SERVICE: 09/07/2022 : 1960 REFERRING PHYSICIAN: Rodney Griffin, CASTING AND LOCKER ROOM SERVICER, RELEASE ENGINEER Vishal is a patient I am following with Dr. Cedeño for epigastric pain and nausea. Dr. Cedeño performed upper endoscopy on 08/09/22. The patient was found to have gastritis. Pathology demonstrated: FINAL DIAGNOSIS A. Duodenum, biopsy: - Duodenal mucosa with no significant pathologic abnormality. B. Stomach, biopsy: - Gastric mucosa with no significant pathologic abnormality. C. Distal esophagus, biopsy: - Squamous mucosa with mild reactive changes. The patient notes no complaints since the procedure. She states she has been feeling much better and notes no further episodes of nausea or epigastric discomfort in the last few weeks. On limited video-enabled visual exam General: patient is alert, cooperative, pleasant and in no acute distress Normal speech and affect, answers all questions appropriately Assessment IMPRESSION: gastritis, clinically improved. Normal biopsies PLAN: The operative findings and pathology report were reviewed with the patient, and the patient has had the opportunity to ask questions and have questions answered. Continue PPI, may add carafate short-term if needed Dietary and lifestyle modifications as discussed Recommend cessation of tobacco and marijuana use and avoid alcohol and acidic foods Follow up if symptoms recur despite these measures Patient verbalized understanding of all above and agreed with the plan Diagnoses: (K29.60) Other gastritis without bleeding (primary encounter diagnosis) I spent a total of 23 minutes on the date of the service which included preparing to see the patient, [id number] patient care, completing clinical documentation, obtaining and/or reviewing separately obtained history, counseling and educating the patient/family/caregiver, ordering medications, tests, or procedures, independently interpreting results (not separately reported), and communicating results to the patient/family/caregiver. Jackie Schneider PA-C [facility] 09-07-2022 History of Presen t illness Narrative In lieu of an in-person visit due to COVID-19 concerns, a virtualvisit was performed on the patient. Patient is aware that I am not fully able to assess symptoms and do a full physical examination including vital signs assessment at this time. Patient consents to this encounter. FOLLOW UP VISIT - ENDOSCOPY NAME: Vishal Alonzo Ariel [facility] NO.: [id number] DATE OF SERVICE: 09/07/2022 : 1960 REFERRING PHYSICIAN: Rodney Griffin, CASTING AND LOCKER ROOM SERVICER, RELEASE ENGINEER Vishal is a patient I am following with Dr. Cedeño for epigastric pain and nausea. Dr. Cedeño performed upper endoscopy on 08/09/22. The patient was found to have gastritis. Pathology demonstrated: FINAL DIAGNOSIS A. Duodenum, biopsy: - Duodenal mucosa with no significant pathologic abnormality. B. Stomach, biopsy: - Gastric mucosa with no significant pathologic abnormality. C. Distal esophagus, biopsy: - Squamous mucosa with mild reactive changes. The patient notes no complaints since the procedure. She states she has been feeling much better and notes no further episodes of nausea or epigastric discomfort in the last few weeks. On limited video-enabled visual exam General: patient is alert, cooperative, pleasant and in no acute distress Normal speech and affect, answers all questions appropriately Assessment IMPRESSION: gastritis, clinically improved. Normal biopsies PLAN: The operative findings and pathology report were reviewed with the patient, and the patient has had the opportunity to ask questions and have questions answered. Continue PPI, may add carafate short-term if needed Dietary and lifestyle modifications as discussed Recommend cessation of tobacco and marijuana use and avoid alcohol and acidic foods Follow up if symptoms recur despite these measures Patient verbalized understanding of all above and agreed with the plan Diagnoses: (K29.60) Other gastritis without bleeding (primary encounter diagnosis) I spent a total of 23 minutes on the date of the service which included preparing to see the patient, [id number] patient care, completing clinical documentation, obtaining and/or reviewing separately obtained history, counseling and educating the patient/family/caregiver, ordering medications, tests, or procedures, independently interpreting results (not separately reported), and communicating results to the patient/family/caregiver. Jackie Schneider PA-C documented in this encounter [facility] 08-15-2022 Miscellaneous Notes August 15, 2022 PID: [id number] Vishal Kidd [address] [place] [address] Dear Ms. Kidd, We are pleased to inform you that the results of your recent breast imaging exam on 08/14/2022 are normal. Early detection of cancer is very important. We also understand recommendations regarding breast cancer screening are controversial. Please discuss with your primary care provider which strategy is best for you and whether a mammogram is right for you. Your imaging studies and report will be kept on file at [facility] as part of your permanent medical record and are available for your continuing care. Thank you for allowing us to help in meeting your health care needs. Sincerely, Dr. Jacinto Interpreting Radiologist [facility] (Normal over 40) documented in this encounter [facility] 08-14-2022 History of Presen t illness Narrative Vishal is a 62 year old who presents for an annual gynecologic exam without complaints. Working at [employer]. Admits to drinking 42 can of beer per week- does not feel it is a problem. Having more GI issues which as lead to some weight loss this year. Postmenopausal: Yes since age 54 HRT use: No. Last Pap: 05/23/2021 normal HPV: 05/22/2021 negative History of abnormal pap: No Last mammogram: 2020 normal History of abnormal mammogram: Yes , follow up negative Sexually active: No History of STDS: None Hot flashes: Yes, constantly, has gotten better in years since menopause Night sweats: No Vaginal dryness: No Exercise: None Diet: mixed diet. OB History T2 L2 SAB1 IAB0 Ectopic0 Multiple0 Live Births0 Estimator History LMP: 07/21/2012, Postmenopausal Age at Menarche: Age at First : Age at Menopause: Estimator History Comments: Sexual Activity: Yes; Male Contraception: No contraception data on record PAST MEDICAL HISTORY Diagnosis Date Cataract of left eye COPD (chronic obstructive pulmonary disease) (HCC) Dysplasia of cervix, unspecified High cholesterol Hypertension Non morbid obesity 08/29/2016 PAST SURGICAL HISTORY Procedure Laterality Date CATARACT SURGERY, COMPLEX 09/29/2012 Lt eye CHOLECYSTECTOMY HX 10/14/2005 COLONOSCOPY FLX DX W/COLLJ SPEC WHEN PFRMD 09/13/2016 Colonoscopy (MAC) EGD DIAGNOSTIC 2021 ESOPHAGOGASTRODUODENOSCOPY TRANSORAL DIAGNOSTIC 09/13/2016 EGD (MAC) KNEE LEFT OP SURGERY Left 05/2020 LIG/TRNSXJ FLP TUBE ABDL/VAG APPR UNI/BI PAST SURGICAL HISTORY OF 05/14/2012 polyp removed from esoph STEREO LOC FOR CORE BRST BX RT 10/13/2012 TONSILLECTOMY & ADENOIDECTOMY <AGE 14 TONSILLECTOMY HX TRANSCATH STENT INIT VESSEL,PERCUT 10/14/2006 Transcath stent init vessel percut FAMILY HISTORY Problem Relation Age of Onset Breast Cancer Mother Hypertension Mother Heart Mother Coronary Artery Disease Mother Hypertension Father Cancer Father Lymphoma Hypertension Brother SOCIAL HISTORY Social History Tobacco Use Smoking status: Every Day Packs/day: 0.50 Years: 20.00 Pack years: 10.00 Types: Cigarettes Smokeless tobacco: Never Vaping Use Vaping Use: Never used Substance Use Topics Alcohol use: Yes Alcohol/week: 42.0 standard drinks Types: 42 Cans of Beer (12oz) per week Drug use: Yes Comment: marijuana use-last evening REVIEW OF SYSTEMS General: Admits to 25 lb weight loss in past 6 months. Abdomen: Admits to nausea, abdominal pain, vomiting and is seeing GI for these symptoms. No diarrhea, or constipation. No bloating, early satiety, indigestion, or increased flatulence. Bladder: No dysuria, gross hematuria, urinary frequency, urinary urgency, or incontinence Breast: No breast lumps, nipple d/c, overlying skin changes, redness or skin retraction Allergies and current medication updated:No EXAM: BP 132/76 Ht 5' 3 (1.60m) Wt 173 lb (78.5kg) LMP 07/21/2012 BMI 30.65 kg/(m^2). GENERAL: pleasant, female in no apparent distress HEENT: Normocephalic, atraumatic, mucus membranes moist, and no lesions NECK: Supple, full range of motion, no adenopathy, and thyroid normal DERMATOLOGY: Normal, without lesions, non-icteric, and non-hirsute BREAST: soft, non-tender, symmetric, no dominant mass, normal nipple-areolar complex, no lymphadenopathy, and no nipple discharge ABDOMEN: soft, non-tender, and no masses PELVIC: external genitalia normal, normal Bartholin's glands, urethra, [place]'s glands, no vulvar lesions, no cervical lesions, good vaginal support, physiologic discharge present, normal appearing perineal body and perianal region BIMANUAL: uterus normal size, shape and consistency, no adnexal masses, and non-tender RECTOVAGINAL: deferred. NEURO: alert and oriented x3,exam grossly non-focal EXTREMITIES: normal ASSESSMENT/PLAN: 1) Health maintenance: Pap/HPV up to date. Mammogram ordered Nutrition, exercise and routine health maintenance exams reviewed. Calcium/Vitamin D supplementation information provided. Colon cancer screening: up to date with screening BMD: ordered- due to risk factors 2) Follow up one year or sooner as needed 3) smoking cessation reviewed. Reviewed alcohol consumption- at this time does not feel it is an issue. Reviewed impact it can have on health. Offered assistance and declines at this time. Aracelis Yoder MD Applications Coordinator offered: Patient declines. documented in this encounter [facility] 08-09-2022 Nurse Note Patient arrived laying on left side. States she is not in any pain at this time. Patient's abdomen appears to be nondistended and soft to palpation. Patient encouraged to belch or pass gas. documented in this encounter [facility] 08-09-2022 History and physical note Images from the original note were not included. HISTORY AND PHYSICAL Vishal Kidd 1960 REFERRING PHYSICIAN: TRUDY Rendon, MELODY CHIEF COMPLAINT: Follow Up ([facility] ER 07/12/22) HPI: The patient is a 62 year old female referred for endoscopy. Vishal notes no history of colon complaints. The patient notes the following upper complaints: Vishal notes abdominal pain. The pain occurs in the following locations: epigastric region, The patient describes the pain as a 6 on a scale of 0-10, The pain has the following character: boring, burning, sharp, and stabbing, The pain has been present for 2 weeks, The pain occurs daily . Vishal notes occasional heartburn. Vishal denies dysphagia. Vishal denies a history of ulcers/ peptic ulcer disease. Vishal has undergone prior endoscopy. 2015 The patient is being seen by me today at the request of Dr. Rodney Griffin, TRUDY, RELEASE ENGINEER for my opinion and advice regarding Epigastric pain (primary encounter diagnosis) Nausea and vomiting, unspecified vomiting type. PAST MEDICAL HISTORY PAST MEDICAL HISTORY Diagnosis Date Cataract of left eye Dysplasia of cervix, unspecified High cholesterol Hypertension Non morbid obesity 08/29/2016 PAST SURGICAL HISTORY PAST SURGICAL HISTORY Procedure Laterality Date CATARACT SURGERY, COMPLEX 09/29/2012 Lt eye CHOLECYSTECTOMY HX 10/14/2005 COLONOSCOPY FLX DX W/COLLJ SPEC WHEN PFRMD 09/13/2016 Colonoscopy (MAC) ESOPHAGOGASTRODUODENOSCOPY TRANSORAL DIAGNOSTIC 09/13/2016 EGD (MAC) KNEE LEFT OP SURGERY Left 05/2020 LIG/TRNSXJ FLP TUBE ABDL/VAG APPR UNI/BI PAST SURGICAL HISTORY OF 05/14/2012 polyp removed from esoph STEREO LOC FOR CORE BRST BX RT 10/13/2012 TONSILLECTOMY & ADENOIDECTOMY <AGE 14 TRANSCATH STENT INIT VESSEL,PERCUT 10/14/2006 Transcath stent init vessel percut CURRENT MEDICATIONS Current Outpatient Medications Medication Sig ZINC ORAL Take by mouth once daily. ascorbic acid (VITAMIN C ORAL) Take 500 mg by mouth once daily. sertraline (ZOLOFT) 25 mg tablet Take 25 mg by mouth once daily. For 30 days Valsartan-hydroCHLOROthiazide 320-12.5 mg per tablet Take 1 tablet by mouth once daily. busPIRone (BUSPAR) 10 mg tablet Take 15 mg by mouth once daily. cyanocobalamin (VITAMIN B-12) 1,000 mcg tab Take 1,000 mcg by mouth once daily. metoprolol tartrate, short acting, (LOPRESSOR) 50 mg tablet Take 75 mg by mouth twice daily. 75mg 1 1/2 tablet 2 times a day rosuvastatin (CRESTOR) 10 mg tablet Take 10 mg by mouth once daily. LISINOPRIL 40 mg tablet twice daily. pantoprazole DR (PROTONIX) 40 mg tablet Take 40 mg by mouth once daily. clopidogrel bisulfate(PLAVIX 75 MG TAB) Take one(1) tablet daily. aspirin(PINKY ASPIRIN 325 MG TAB) 325 mg once daily. venlafaxine ER (EFFEXOR XR) 150 mg 24 hr capsule Take 150 mg by mouth once daily. hydroCHLOROthiazide (HYDRODIURIL, ESIDRIX) 12.5 mg tablet (Patient not taking: Reported on 07/17/2022) cholecalciferol (VITAMIN D3) 5,000 unit tab Take 5,000 Units by mouth once daily. (Patient not taking: Reported on 07/17/2022) MULTIVIT-MINERALS/FERROUS FUM (MULTI VITAMIN ORAL) Take by mouth once daily. (Patient not taking: Reported on 05/16/2021 ) hydroCHLOROthiazide (HYDRODIURIL, ESIDRIX) 12.5 mg capsule Take 12.5 mg by mouth once daily. (Patient not taking: Reported on 07/17/2022) No current facility-administered medications for this visit. ALLERGIES: Adhesive Tape (Rosins) PERSONAL HISTORY: SOCIAL HISTORY Social History Tobacco Use Smoking status: Every Day Packs/day: 0.50 Years: 20.00 Pack years: 10.00 Types: Cigarettes Smokeless tobacco: Never Vaping Use Vaping Use: Never used Substance Use Topics Alcohol use: No Alcohol/week: 20.0 standard drinks Types: 8 Cans of Beer (12oz) per week Drug use: Yes Comment: marijuana use-last used 2 weeks ago as of 08/29/16 FAMILY HISTORY: FAMILY HISTORY FAMILY HISTORY Problem Relation Age of Onset Breast Cancer Mother Hypertension Mother Heart Mother Coronary Artery Disease Mother Hypertension Father Cancer Father Lymphoma Hypertension Brother REVIEW OF SYMPTOMS: The review of systems data was entered by the nurse and reviewed by ri Nursing Notes: Kathrine Gil LPN 07/17/2022 2:57 PM Signed REVIEW OF SYSTEMS: General: The patient denies fatigue, notes weight loss, denies weight gain, denies feeling hot, and denies feelings of cold. Eyes: The patient denies glaucoma, denies eye injury/surgery, does not wear glasses or contacts. Ear/Nose/Throat: The patient notes allergies, denies hayfever, denies ear infections, and denies bloody noses. Cardiovascular: The patient denies chest pain, notes heart disease, notes high blood pressure,notes cardiac stent, denies prior heart attack, notes irregular heart beat, denies high cholesterol, denies poor circulation, denies heart failure, other cardiac issues, denies claudication, denies cold feet, denies peripheral arterial stent. Respiratory: The patient denies tuberculosis, denies pneumonia, notes frequent cough, denies pulmonary embolism, denies shortness of breath, and denies coughing up blood. Gastrointestinal: The patient denies difficulty swallowing, denies acid reflux, denies ulcers, notes vomiting, denies jaundice/hepatitis, denies gallbladder problems, denies black or tarry stools, denies hemorrhoids, denies bleeding from rectum, denies diverticulitis, denies constipation, denies diarrhea, denies loss of stool control, and denies hernias. Kidney/Bladder: The patient denies kidney stones, denies urine infections, and denies bloody urine. Skin: The patient denies a history of skin cancer, denies bleeding/changing moles, and denies a history of skin rash. Neurologic: The patient denies a history of epilepsy/convulsions, denies headaches, denies head/spinal injuries, and denies stroke/TIA. Psychiatric: The patient denies psychiatric medications, notes depression, and denies voices, denies substance abuse. Endocrine: The patient denies thyroid disorders, denies diabetes, and denies hormonal problems. Hematologic: The patient denies a history of bruising, denies bleeding, and denies anemia, denies blood clots. Infections: The patient denies a history of measles and mumps, denies rheumatic fever, and denies sexually transmitted diseases. Musculoskeletal: The patient denies back pain/injury, denies back problems, notes sciatica, denies knee/foot trouble, denies arthritis, or denies gout. When was patient's last Mammogram screening? 2020 Last Colonoscopy: 2015 Kathrine Gil LPN PHYSICAL EXAMINATION: General: The patient is 62 year old female, well nourished, well hydrated in no acute distress. The patient is oriented to time, place, and person. VITALS: Blood pressure 124/64, pulse 68, temperature 36 C (96.8 F), height 160 cm (5' 3 ), weight 78.5 kg (173 lb), last menstrual period 07/21/2012, SpO2 96 %. Body mass index is 30.65 kg/m . HEENT: Normal cephalic, ataumatic, pupils are equally round, sclera are anicteric, mucous membranes are moist, oropharynx is clear. Neck has no masses, asymmetry or lymphadenopathy. Thyroid is unremarkable. Respiratory: Clear to auscultation and percussion. Normal respiratory excursion and pattern. Cardiac: Examination is regular rate and rhythm. Abdominal exam: Soft, nontender, with no palpable masses. No hepatosplenomegaly. No palpable hernias. Rectal exam: exam deferred Extremities: no clubbing, cyanosis or edema. No adenopathy. Other: LABORATORY VALUES: As Noted RADIOLOGIC STUDIES: As Noted Assessment IMPRESSION: Epigastric pain (primary encounter diagnosis) Nausea and vomiting, unspecified vomiting type PLAN: I plan to perform upper endoscopy. We discussed the risks and benefits of the planned endoscopy. I have informed the patient that complications can occur including failure to complete the endoscopy and perforation. The patient had the opportunity to ask questions concerning the planned endoscopy. My staff has also explained the procedure to the patient in understandable terms and has given the patient printed material concerning the procedure. The patient freely consents to surgery. Diagnoses: (R10.13) Epigastric pain (primary encounter diagnosis) (R11.2) Nausea and vomiting, unspecified vomiting type A letter was sent to Dr. Rodney Griffin, [employer] ROOM SERVICER, RELEASE ENGINEER indicating the above finding for this patient. Return to Clinic: The patient is instructed to follow-up with me 1 week post operatively. COVID (Procedure Consent) Procedure Criteria Procedure Criteria: Yes Elective The surgeon/proceduralist and patient have discussed in detail the risk of exposure to and/or potential harm posed by the COVID-19 virus with having a surgery/procedure at this time versus the risk of delaying the surgery/procedure. It is not possible to know either the risk of delaying the surgery or procedure or chance of getting an infection with perfect accuracy, but a joint decision was made between the patient and the surgeon/proceduralist to proceed at this time with the scheduled surgery/procedure as indicated on the consent form. Sony Cedeño III, MD UPDATED HISTORY AND PHYSICAL EXAMINATION SERVICE DATE: 08/09/2022 SERVICE TIME: 10:43 AM PHYSICAL EXAM MUST BE COMPLETED ON ADMISSION The History and Physical (completed in the past 30 days) has been reviewed and the patient has been examined. The contents accurately reflect the patient's condition with the following additions or revisions since the H&P was completed. Examination indicates no changes. This H&P can be found in the attached. SIGNATURE: Sony Cedeño III, MD PATIENT NAME: Vishal Kidd DATE: August 09, 2022 TIME: 10:43 AM documented in this encounter [facility] 08-02-2022 Miscellaneous Notes Pt. called in with questions surrounding the need for prior authorization for her upcoming EGD on 08/09. States she was told by her insurance company that prior auth was required. This nurse sees in her chart under referrals that no referral/ prior auth required . Pt. given finance [employer] service phone number and instructed to call for more help. Halima Milton RN documented in this encounter [facility] 07-17-2022 History of Presen t illness Narrative HISTORY AND PHYSICAL Vishal Kidd 1960 REFERRING PHYSICIAN: TRUDY Rendon, MELODY CHIEF COMPLAINT: Follow Up ([facility] 07/12/22) HPI: The patient is a 62 year old female referred for endoscopy. Vishal notes no history of colon complaints. The patient notes the following upper complaints: Vishal notes abdominal pain. The pain occurs in the following locations: epigastric region, The patient describes the pain as a 6 on a scale of 0-10, The pain has the following character: boring, burning, sharp, and stabbing, The pain has been present for 2 weeks, The pain occurs daily . Vishal notes occasional heartburn. Vishal denies dysphagia. Vishal denies a history of ulcers/ peptic ulcer disease. Vishal has undergone prior endoscopy. 2015 The patient is being seen by me today at the request of Dr. Rodney Griffin, TRUDY, RELEASE ENGINEER for my opinion and advice regarding Epigastric pain (primary encounter diagnosis) Nausea and vomiting, unspecified vomiting type. PAST MEDICAL HISTORY Diagnosis Date Cataract of left eye Dysplasia of cervix, unspecified High cholesterol Hypertension Non morbid obesity 08/29/2016 PAST SURGICAL HISTORY Procedure Laterality Date CATARACT SURGERY, COMPLEX 09/29/2012 Lt eye CHOLECYSTECTOMY HX 10/14/2005 COLONOSCOPY FLX DX W/COLLJ SPEC WHEN PFRMD 09/13/2016 Colonoscopy (MAC) ESOPHAGOGASTRODUODENOSCOPY TRANSORAL DIAGNOSTIC 09/13/2016 EGD (MAC) KNEE LEFT OP SURGERY Left 05/2020 LIG/TRNSXJ FLP TUBE ABDL/VAG APPR UNI/BI PAST SURGICAL HISTORY OF 05/14/2012 polyp removed from esoph STEREO LOC FOR CORE BRST BX RT 10/13/2012 TONSILLECTOMY & ADENOIDECTOMY <AGE 14 TRANSCATH STENT INIT VESSEL,PERCUT 10/14/2006 Transcath stent init vessel percut Current Outpatient Medications Medication Sig ZINC ORAL Take by mouth once daily. ascorbic acid (VITAMIN C ORAL) Take 500 mg by mouth once daily. sertraline (ZOLOFT) 25 mg tablet Take 25 mg by mouth once daily. For 30 days Valsartan-hydroCHLOROthiazide 320-12.5 mg per tablet Take 1 tablet by mouth once daily. busPIRone (BUSPAR) 10 mg tablet Take 15 mg by mouth once daily. cyanocobalamin (VITAMIN B-12) 1,000 mcg tab Take 1,000 mcg by mouth once daily. metoprolol tartrate, short acting, (LOPRESSOR) 50 mg tablet Take 75 mg by mouth twice daily. 75mg 1 1/2 tablet 2 times a day rosuvastatin (CRESTOR) 10 mg tablet Take 10 mg by mouth once daily. LISINOPRIL 40 mg tablet twice daily. pantoprazole DR (PROTONIX) 40 mg tablet Take 40 mg by mouth once daily. clopidogrel bisulfate(PLAVIX 75 MG TAB) Take one(1) tablet daily. aspirin(PINKY ASPIRIN 325 MG TAB) 325 mg once daily. venlafaxine ER (EFFEXOR XR) 150 mg 24 hr capsule Take 150 mg by mouth once daily. hydroCHLOROthiazide (HYDRODIURIL, ESIDRIX) 12.5 mg tablet (Patient not taking: Reported on 07/17/2022) cholecalciferol (VITAMIN D3) 5,000 unit tab Take 5,000 Units by mouth once daily. (Patient not taking: Reported on 07/17/2022) MULTIVIT-MINERALS/FERROUS FUM (MULTI VITAMIN ORAL) Take by mouth once daily. (Patient not taking: Reported on 05/16/2021 ) hydroCHLOROthiazide (HYDRODIURIL, ESIDRIX) 12.5 mg capsule Take 12.5 mg by mouth once daily. (Patient not taking: Reported on 07/17/2022) No current facility-administered medications for this visit. ALLERGIES: Adhesive Tape (Rosins) PERSONAL HISTORY: Social History Tobacco Use Smoking status: Every Day Packs/day: 0.50 Years: 20.00 Pack years: 10.00 Types: Cigarettes Smokeless tobacco: Never Vaping Use Vaping Use: Never used Substance Use Topics Alcohol use: No Alcohol/week: 20.0 standard drinks Types: 8 Cans of Beer (12oz) per week Drug use: Yes Comment: marijuana use-last used 2 weeks ago as of 08/29/16 FAMILY HISTORY: FAMILY HISTORY Problem Relation Age of Onset Breast Cancer Mother Hypertension Mother Heart Mother Coronary Artery Disease Mother Hypertension Father Cancer Father Lymphoma Hypertension Brother REVIEW OF SYMPTOMS: The review of systems data was entered by the nurse and reviewed by ri Nursing Notes: Kathrine Gil LPN 07/17/2022 2:57 PM Signed REVIEW OF SYSTEMS: General: The patient denies fatigue, notes weight loss, denies weight gain, denies feeling hot, and denies feelings of cold. Eyes: The patient denies glaucoma, denies eye injury/surgery, does not wear glasses or contacts. Ear/Nose/Throat: The patient notes allergies, denies hayfever, denies ear infections, and denies bloody noses. Cardiovascular: The patient denies chest pain, notes heart disease, notes high blood pressure,notes cardiac stent, denies prior heart attack, notes irregular heart beat, denies high cholesterol, denies poor circulation, denies heart failure, other cardiac issues, denies claudication, denies cold feet, denies peripheral arterial stent. Respiratory: The patient denies tuberculosis, denies pneumonia, notes frequent cough, denies pulmonary embolism, denies shortness of breath, and denies coughing up blood. Gastrointestinal: The patient denies difficulty swallowing, denies acid reflux, denies ulcers, notes vomiting, denies jaundice/hepatitis, denies gallbladder problems, denies black or tarry stools, denies hemorrhoids, denies bleeding from rectum, denies diverticulitis, denies constipation, denies diarrhea, denies loss of stool control, and denies hernias. Kidney/Bladder: The patient denies kidney stones, denies urine infections, and denies bloody urine. Skin: The patient denies a history of skin cancer, denies bleeding/changing moles, and denies a history of skin rash. Neurologic: The patient denies a history of epilepsy/convulsions, denies headaches, denies head/spinal injuries, and denies stroke/TIA. Psychiatric: The patient denies psychiatric medications, notes depression, and denies voices, denies substance abuse. Endocrine: The patient denies thyroid disorders, denies diabetes, and denies hormonal problems. Hematologic: The patient denies a history of bruising, denies bleeding, and denies anemia, denies blood clots. Infections: The patient denies a history of measles and mumps, denies rheumatic fever, and denies sexually transmitted diseases. Musculoskeletal: The patient denies back pain/injury, denies back problems, notes sciatica, denies knee/foot trouble, denies arthritis, or denies gout. When was patient's last Mammogram screening? 2020 Last Colonoscopy: 2015 Kathrine Gil LPN PHYSICAL EXAMINATION: General: The patient is 62 year old female, well nourished, well hydrated in no acute distress. The patient is oriented to time, place, and person. VITALS: Blood pressure 124/64, pulse 68, temperature 36 C (96.8 F), height 160 cm (5' 3 ), weight 78.5 kg (173 lb), last menstrual period 07/21/2012, SpO2 96 %. Body mass index is 30.65 kg/m . HEENT: Normal cephalic, ataumatic, pupils are equally round, sclera are anicteric, mucous membranes are moist, oropharynx is clear. Neck has no masses, asymmetry or lymphadenopathy. Thyroid is unremarkable. Respiratory: Clear to auscultation and percussion. Normal respiratory excursion and pattern. Cardiac: Examination is regular rate and rhythm. Abdominal exam: Soft, nontender, with no palpable masses. No hepatosplenomegaly. No palpable hernias. Rectal exam: exam deferred Extremities: no clubbing, cyanosis or edema. No adenopathy. Other: LABORATORY VALUES: As Noted RADIOLOGIC STUDIES: As Noted Assessment IMPRESSION: Epigastric pain (primary encounter diagnosis) Nausea and vomiting, unspecified vomiting type PLAN: I plan to perform upper endoscopy. We discussed the risks and benefits of the planned endoscopy. I have informed the patient that complications can occur including failure to complete the endoscopy and perforation. The patient had the opportunity to ask questions concerning the planned endoscopy. My staff has also explained the procedure to the patient in understandable terms and has given the patient printed material concerning the procedure. The patient freely consents to surgery. Diagnoses: (R10.13) Epigastric pain (primary encounter diagnosis) (R11.2) Nausea and vomiting, unspecified vomiting type A letter was sent to Dr. Rodney Griffin, [employer] ROOM SERVICER, RELEASE ENGINEER indicating the above finding for this patient. Return to Clinic: The patient is instructed to follow-up with me 1 week post operatively. COVID (Procedure Consent) Procedure Criteria Procedure Criteria: Yes Elective The surgeon/proceduralist and patient have discussed in detail the risk of exposure to and/or potential harm posed by the COVID-19 virus with having a surgery/procedure at this time versus the risk of delaying the surgery/procedure. It is not possible to know either the risk of delaying the surgery or procedure or chance of getting an infection with perfect accuracy, but a joint decision was made between the patient and the surgeon/proceduralist to proceed at this time with the scheduled surgery/procedure as indicated on the consent form. Sony Cedeño III, MD documented in this encounter [facility] 07-17-2022 Nurse Note REVIEW OF SYSTEMS: General: The patient denies fatigue, notes weight loss, denies weight gain, denies feeling hot, and denies feelings of cold. Eyes: The patient denies glaucoma, denies eye injury/surgery, does not wear glasses or contacts. Ear/Nose/Throat: The patient notes allergies, denies hayfever, denies ear infections, and denies bloody noses. Cardiovascular: The patient denies chest pain, notes heart disease, notes high blood pressure,notes cardiac stent, denies prior heart attack, notes irregular heart beat, denies high cholesterol, denies poor circulation, denies heart failure, other cardiac issues, denies claudication, denies cold feet, denies peripheral arterial stent. Respiratory: The patient denies tuberculosis, denies pneumonia, notes frequent cough, denies pulmonary embolism, denies shortness of breath, and denies coughing up blood. Gastrointestinal: The patient denies difficulty swallowing, denies acid reflux, denies ulcers, notes vomiting, denies jaundice/hepatitis, denies gallbladder problems, denies black or tarry stools, denies hemorrhoids, denies bleeding from rectum, denies diverticulitis, denies constipation, denies diarrhea, denies loss of stool control, and denies hernias. Kidney/Bladder: The patient denies kidney stones, denies urine infections, and denies bloody urine. Skin: The patient denies a history of skin cancer, denies bleeding/changing moles, and denies a history of skin rash. Neurologic: The patient denies a history of epilepsy/convulsions, denies headaches, denies head/spinal injuries, and denies stroke/TIA. Psychiatric: The patient denies psychiatric medications, notes depression, and denies voices, denies substance abuse. Endocrine: The patient denies thyroid disorders, denies diabetes, and denies hormonal problems. Hematologic: The patient denies a history of bruising, denies bleeding, and denies anemia, denies blood clots. Infections: The patient denies a history of measles and mumps, denies rheumatic fever, and denies sexually transmitted diseases. Musculoskeletal: The patient denies back pain/injury, denies back problems, notes sciatica, denies knee/foot trouble, denies arthritis, or denies gout. When was patient's last Mammogram screening? 2020 Last Colonoscopy: 2015 Kathrine Gil LPN documented in this encounter [facility] documented as of this encounter (statuses as of 07/17/2022) [facility]11-28-2012 History of Past illness Narrative* Problem Noted Date Resolved Date Unspecified essential hypertension 09/10/2012 08/29/2016 PMDD (premenstrual dysphoric disorder) 2 07/06/2015 Perimenopausal 09/10/2012 07/06/2015 documented as of this encounter (statuses as of 08/14/2022) [facility] History of Past illness Narrative* Problem Noted Date Resolved Date Unspecified essential hypertension 09/10/2012 08/29/2016 PMDD (premenstrual dysphoric disorder) 2 07/06/2015 Perimenopausal 09/10/2012 07/06/2015 documented as of this encounter (statuses as of 08/15/2022) [facility] History of Past illness Narrative* Problem Noted Date Resolved Date Unspecified essential hypertension 09/10/2012 08/29/2016 PMDD (premenstrual dysphoric disorder) 2 07/06/2015 Perimenopausal 09/10/2012 07/06/2015 documented as of this encounter (statuses as of 08/17/2022) [facility] History of Past illness Narrative* Problem Noted Date Resolved Date Unspecified essential hypertension 09/10/2012 08/29/2016 PMDD (premenstrual dysphoric disorder) 2 07/06/2015 Perimenopausal 09/10/2012 07/06/2015 documented as of this encounter (statuses as of 09/07/2022) [address]28-2012 History of Past illness Narrative* Problem Noted Date Resolved Date Unspecified essential hypertension 09/10/2012 08/29/2016 PMDD (premenstrual dysphoric disorder) 2 07/06/2015 Perimenopausal 09/10/2012 07/06/2015 documented as of this encounter (statuses as of 03/25/2023) [address]28-2012 History of Past illness Narrative* Problem Noted Date Diagnosed Date Resolved Date Unspecified essential hypertension 09/10/2012 08/29/2016 PMDD (premenstrual dysphoric disorder) 09/10/2012 07/06/2015 Perimenopausal 09/10/2012 07/06/2015 documented as of this encounter (statuses as of 07/12/2023) [address]28-2012 History of Past illness Narrative* Problem Noted Date Diagnosed Date Resolved Date Unspecified essential hypertension 09/10/2012 08/29/2016 PMDD (premenstrual dysphoric disorder) 09/10/2012 07/06/2015 Perimenopausal 09/10/2012 07/06/2015 documented as of this encounter (statuses as of 08/18/2023) [address]28-2012 History of Past illness Narrative* Problem Noted Date Diagnosed Date Resolved Date Unspecified essential hypertension 09/10/2012 08/29/2016 PMDD (premenstrual dysphoric disorder) 09/10/2012 07/06/2015 Perimenopausal 09/10/2012 07/06/2015 documented as of this encounter (statuses as of 08/18/2023) [address]28-2012 History of Past illness Narrative* Problem Noted Date Diagnosed Date Resolved Date Unspecified essential hypertension 09/10/2012 08/29/2016 PMDD (premenstrual dysphoric disorder) 09/10/2012 07/06/2015 Perimenopausal 09/10/2012 07/06/2015 documented as of this encounter (statuses as of 08/31/2023) [facility] Appointment Date:09/28/2022 03:20:00 PM Scheduled Provider:RODNEY GRIFFIN APRN, CNP Location:[facility] Appointment Type:PC OV [facility] Evaluation note* Diagnosis Epigastric pain- Primary Abdominal pain, epigastric Nausea and vomiting, unspecified vomiting type documented in this encounter [facility] note* Diagnosis Encounter for gynecological examination (general) (routine) without abnormal findings- Primary Encounter for screening mammogram for malignant neoplasm of breast Other screening mammogram Screening for osteoporosis Special screening for osteoporosis documented in this encounter [facility] note* Diagnosis Other gastritis without bleeding- Primary documented in this encounter [facility] note* Diagnosis Chronic systolic heart failure (HCC)- Primary Chronic systolic heart failure Primary hypertension Unspecified essential hypertension Coronary artery disease involving [place] coronary artery of [place] heart without angina pectoris Hyperlipidemia, unspecified hyperlipidemia type Ischemic cardiomyopathy Other specified forms of chronic ischemic heart disease documented in this encounter [facility] note* Diagnosis Epigastric pain- Primary Abdominal pain, epigastric Nausea and vomiting, unspecified vomiting type documented in this encounter [facility] note* Diagnosis Encounter for screening mammogram for malignant neoplasm of breast Other screening mammogram documented in this encounter [facility] course Narrative No data available for this section [facility] Discharge instructions No data available for this section [facility] Progress note No data available for this section [facility] Reason for referral (narrative)* Outpatient Procedure (Routine) - Authorized Specialty Diagnoses / Procedures Referred By Contac t Referred To Contact [facility] Diagnoses Epigastric pain Nausea and vomiting, unspecified vomiting type Procedures EGD DIAGNOSTIC ESOPHAGOGASTRODUODENOSC OPY TRANSORAL DIAGNOSTIC Sony Cedeño MD [address] [place] [address] [facility] [address] [place] [id number] Referral ID Status Reason Start Date Expiration Date Visits Requested Visits Authorized [id number] Authorized Auto-Generat ed Referral 07/17/2022 07/17/2023 1 1 [facility] for referral (narrative)* Outpatient Procedure (Routine) - Closed Specialty Diagnoses / Procedures Referred By Dayan t Referred To Contact [facility] Diagnoses Epigastric pain Nausea and vomiting, unspecified vomiting type Procedures EGD DIAGNOSTIC ESOPHAGOGASTRODUODENOSC OPY TRANSORAL DIAGNOSTIC Sony Cedeño MD [address] [place] [address] [facility] [address] [place] [id number] Referral ID Status Reason Start Date Expiration Date V isits Requested Visits Authorized [id number] Closed Auto-Generate d Referral 07/17/2022 07/17/2023 1 1 [facility] for visit Narrative* Outpatient Procedure (Routine) - Closed Specialty Diagnoses / Procedures Referred By Dayan t Referred To Contact [facility] Diagnoses Epigastric pain Nausea and vomiting, unspecified vomiting type Procedures EGD DIAGNOSTIC ESOPHAGOGASTRODUODENOSC OPY TRANSORAL DIAGNOSTIC Sony Cedeño MD [address] [place] [address] [facility] [address] [place] [id number] Referral ID Status Reason Start Date Expiration Date V isits Requested Visits Authorized [id number] Closed Auto-Generate d Referral 07/17/2022 07/17/2023 1 1 [facility] for visit Narrative* Diagnostic Procedure Only (Routine) - Closed Specialty Diagnoses / Procedures Referred By Dayan t Referred To Contact [facility] Diagnoses Encounter for screening mammogram for malignant neoplasm of breast Procedures JON SCREENING W JOSHUA SCREENING DIGITAL BREAST TOMOSYNTHESIS BI SCREENING MAMMOGRAPHY BI 2-VIEW BREAST INC CAD Aracelis Pereira MD [address] [place] [address] [facility] [address] [place] [phone] Referral ID Status Reason Start Date Expiration Date V isits Requested Visits Authorized [id number] Closed Auto-Generate d Referral 08/14/2022 09/13/2023 1 1 [facility] Summary Purpose Family History No Family History Records FoundNo Family History Records FoundNo Family History Records FoundNo Family History Records Found Advance Directives No Advanced Directives Records FoundLatest Code Status on File Code Status Date Activated Date Inactivated Comments Full Code 02/26/2023 4:37 PM 03/01/2023 8:19 PM Full Code Order Discussed With: Patient Latest Code Status on File Code Status Date Activated Date Inactivated Comments Full Code 02/26/2023 4:37 PM 03/01/2023 8:19 PM Question Answer Comments Full Code Order Discussed With: Patient Latest Code Status on File Code Status Date Activated Date Inactivated Comments Full Code 02/26/2023 4:37 PM 03/01/2023 8:19 PM Question Answer Comments Full Code Order Discussed With: Patient Medications Administered Section Inactive Administered Medications - up to 3 most recent administrations Medication Order MAR Action Action Date Dose Rate Site benzocaine 20% 1 [place] (TOPEX) 1 [place], TOPICAL, DIRECTED, Starting on Corrina 08/09/22 at 1200, Until [place]rina 08/09/22 at 1559, DOSING DIRECTED BY PHYSICIAN FOR PROCEDURAL SEDATION ONLY - Pharmaceutical Waste: Aerosol -, Intraprocedure Given 08/09/2022 11:30 AM EDT 1 [place] diphenhydrAMINE 12.5-50 mg injection (BENADRYL) 12.5-50 mg, INTRAVENOUS, DIRECTED, Starting on Corrina 08/09/22 at 1200, Until Corrina 08/09/22 at 1559, DOSING DIRECTED BY PHYSICIAN FOR PROCEDURAL SEDATION ONLY, Intraprocedure Given 08/09/2022 11:33 AM EDT 50 mg fentaNYL 50 mcg/mL 25-100 mcg injection (SUBLIMAZE) 25-100 mcg, INTRAVENOUS, DIRECTED, Starting on Corrina 08/09/22 at 1200, Until Corrina 08/09/22 at 1559, DOSING DIRECTED BY PHYSICIAN FOR PROCEDURAL SEDATION ONLY, Intraprocedure Given 08/09/2022 11:31 AM EDT 50 mcg lactated ringers iv infusion 30 mL/hr, INTRAVENOUS, CONTINUOUS, Starting on Corrina 08/09/22 at 1100, Until Corrina 08/09/22 at 1150, Preprocedure New Bag/Syringe/Bottle 08/09/2022 10:30 AM EDT 30 mL/hr 30 mL/hr midazolam (PF) 1-5 mg injection (VERSED) 1-5 mg, INTRAVENOUS, DIRECTED, Starting on Corrina 08/09/22 at 1200, Until Corrina 08/09/22 at 1559, DOSING DIRECTED BY PHYSICIAN FOR PROCEDURAL SEDATION ONLY, Intraprocedure Given 08/09/2022 11:36 AM EDT 1 mg Additional Source Comments Source Comments (unrecognize d section and content) In the event this informatio n is protected by the Federal Confidentiality of Alcohol and Drug Abuse Patient Records regulations: The Federal rules restrict any use of the information to criminally investigate or prosecute any alcohol or drug abuse patient.[facility] the event this information is protected by the Federal Confidentiality of Alcohol and Drug Abuse Patient Records regulations: The Federal rules restrict any use of the information to criminally investigate or prosecute any alcohol or drug abuse patient.[facility] the event this information is protected by the Federal Confidentiality of Alcohol and Drug Abuse Patient Records regulations: The Federal rules restrict any use of the information to criminally investigate or prosecute any alcohol or drug abuse patient.[facility] the event this information is protected by the Federal Confidentiality of Alcohol and Drug Abuse Patient Records regulations: The Federal rules restrict any use of the information to criminally investigate or prosecute any alcohol or drug abuse patient.[facility] the event this information is protected by the Federal Confidentiality of Alcohol and Drug Abuse Patient Records regulations: The Federal rules restrict any use of the information to criminally investigate or prosecute any alcohol or drug abuse patient.[facility] the event this information is protected by the Federal Confidentiality of Alcohol and Drug Abuse Patient Records regulations: The Federal rules restrict any use of the information to criminally investigate or prosecute any alcohol or drug abuse patient.[facility] the event this information is protected by the Federal Confidentiality of Alcohol and Drug Abuse Patient Records regulations: The Federal rules restrict any use of the information to criminally investigate or prosecute any alcohol or drug abuse patient.[facility] the event this information is protected by the Federal Confidentiality of Alcohol and Drug Abuse Patient Records regulations: The Federal rules restrict any use of the information to criminally investigate or prosecute any alcohol or drug abuse patient.[facility] the event this information is protected by the Federal Confidentiality of Alcohol and Drug Abuse Patient Records regulations: The Federal rules restrict any use of the information to criminally investigate or prosecute any alcohol or drug abuse patient.[facility] the event this information is protected by the Federal Confidentiality of Alcohol and Drug Abuse Patient Records regulations: The Federal rules restrict any use of the information to criminally investigate or prosecute any alcohol or drug abuse patient.[facility] Reason for Visit (unrecogniz ed section and content) Reason Comments Yearly Exam Reason Comments Patient Question Reason Comments 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 Reason Comments Breathing Problem Care Teams (unrecognized sec tion and content) Cloth Washer Operator Relationship Specialty Start Date End Date Rodney Griffin, RELEASE ENGINEER [address] [place] [address] PCP - General Family Medicine 08/08/16 Cloth Washer Operator Relationship Specialty Start Date End Date Rodney Griffin, RELEASE ENGINEER [address] [place] [id number] PCP - General Family Medicine 08/08/16 Cloth Washer Operator Relationship Specialty Start Date End Date Rodney Griffin, RELEASE ENGINEER [address] [place] [id number] PCP - General Family Medicine 08/08/16 Cloth Washer Operator Relationship Specialty Start Date End Date Rodney Griffin, RELEASE ENGINEER [address] [place] [id number] PCP - General Family Medicine 08/08/16 Cloth Washer Operator Relationship Specialty Start Date End Date Rodney Griffin, RELEASE ENGINEER [address] [place] [id number] PCP - General Family Medicine 08/08/16 Cloth Washer Operator Relationship Specialty Start Date End Date Rodney Griffin, RELEASE ENGINEER [address] [place] [id number] PCP - General Family Medicine 08/08/16 Cloth Washer Operator Relationship Specialty Start Date End Date Rodney Griffin, RELEASE ENGINEER [address] [place] [id number] PCP - General Family Medicine 08/08/16 Cloth Washer Operator Relationship Specialty Start Date End Date Rodney Griffin, RELEASE ENGINEER [address] [place] [id number] PCP - General Family Medicine 08/08/16 Cloth Washer Operator Relationship Specialty Start Date End Date Rodney Griffin, RELEASE ENGINEER [address] [place] [id number] PCP - General Family Medicine 08/08/16 Care Team (unrecognized sect ion and content) Care Team Personnel Name: RODNEY GRIFFIN APRN - RELEASE ENGINEER Position: P4 Advanced Practice Nurse Member Role: Primary Care Physician Address: Address: [address] [place] [address]- Care Team Related Persons Name: ROMERO JACINTO INFORMATION SOURCE (unrecogn ized section and content) DATE CREATED AUTHOR AUTHOR'S ORGANIZ ATION 03/27/2023 [facility] DATE CREATED AUTHOR AUTHOR'S ORGANIZ ATION 07/19/2023 [facility] DATE CREATED AUTHOR AUTHOR'S ORGANIZ ATION 09/04/2023 [facility] FOR RECORDS PERTAINING TO PATIENTS WHO ARE OR HAVE BEEN ENROLLED IN A CHEMICAL DEPENDENCY/SUBSTANCEABUSE PROGRAM, SOME INFORMATION MAY BE OMITTED. This clinical summary was aggregated from multiple sources. Caution should be exercised in using it in the provision of clinical care. This summary normalizes information from multiple sources, and as a consequence, information in this document may materially change the coding, format and clinical context of patient data. In addition, data may be omitted in some cases. CLINICAL DECISIONS SHOULD BE BASED ON THE PRIMARY CLINICAL RECORDS. [employer] provides no warranty or guarantee of the accuracy or completeness of information in this document.
[2023-11-13 07:39] LABS: ALB/GLOB Ratio 1.2 RATIO (0.9-2.4); AST(SGOT) 16 U/L (15-37); Alanine Aminotransfer ALT/SGPT 28 U/L (13-56); Albumin, Serum 3.7 g/dL (3.2-5.0); Alkaline Phosphatase 72 U/L (45-117); Anion Gap 2 (5-15); BUN 21 mg/dL (7-18); BUN/Creat Ratio 26.3 RATIO (10-20); Calcium,Total 9.4 mg/dL (8.5-10.1); Chloride 110 mmol/L (98-107); Cholesterol 137 mg/dL (200); EST Glomerular Filtration Rate 78 mL/min (>60); Est Glom Filt Rate - Afr Amer 94 mL/min (>60); Globulin 3.2 g/dL (2.2-4.2); Glucose 117 mg/dL (74-106); High Density Lipoprotein 52 mg/dL; Potassium 4.8 mmol/L (3.5-5.1); Protein, Total 6.9 g/dL (6.4-8.2); Sodium Level 139 mmol/L (136-145); Triglycerides 52 mg/dL; Very Low Density Lipoprotein 10 mg/dL (5-40)
[2023-11-13 08:44] LABS: Vitamin D,25 Hydroxy 62.7 ng/mL
[2023-11-13 09:02] LABS: Hemoglobin A1c 5.4 % (3.8-5.6)
[2023-11-13 10:22] LABS: Microalbumin,Random Urine 5.1 mg/L (NO RANGE EST.); Microalbumin:Creatinine Ratio 6.1 mg/g CRE (<30 mg/g CRE)
== END | disposition home or self-care (01) ==
LOC: LAB 06:45
PROVIDERS: PCP Nurse Practitioner Family; Referring Provider Nurse Practitioner Family; Visit Provider Nurse Practitioner Family
DX: R73.01 Impaired fasting glucose (principal); I10 Essential (primary) hypertension; E78.5 Hyperlipidemia, unspecified; I25.10 Atherosclerotic heart disease of native coronary artery without angina pectoris; E55.9 Vitamin D deficiency, unspecified
CPT/HCPCS: 80053; 80061; 82043; 82306; 82570; 83036

== ENCOUNTER → 2024-06-02 | Outpatient (CLI) | payer BC, SELFPAY ==
[2024-06-02 07:32] LABS: ALB/GLOB Ratio 1.2 RATIO (0.9-2.4); AST(SGOT) 16 U/L (15-37); Alanine Aminotransfer ALT/SGPT 26 U/L (13-56); Albumin, Serum 3.8 g/dL (3.2-5.0); Alkaline Phosphatase 70 U/L (45-117); Anion Gap 4 (5-15); BUN 18 mg/dL (7-18); BUN/Creat Ratio 22.8 RATIO (10-20); Calcium,Total 8.9 mg/dL (8.5-10.1); Chloride 109 mmol/L (98-107); Cholesterol 183 mg/dL (200); Creatinine, Serum 0.79 mg/dL (0.55-1.02); EST Glomerular Filtration Rate 79 mL/min (>60); Est Glom Filt Rate - Afr Amer 95 mL/min (>60); Globulin 3.2 g/dL (2.2-4.2); Glucose 108 mg/dL (74-106); High Density Lipoprotein 55 mg/dL; Potassium 3.7 mmol/L (3.5-5.1); Sodium Level 142 mmol/L (136-145); Triglycerides 113 mg/dL; Very Low Density Lipoprotein 23 mg/dL (5-40)
[2024-06-02 08:15] LABS: Microalbumin,Random Urine 11.6 mg/L (NO RANGE EST.); Microalbumin:Creatinine Ratio 8.7 mg/g CRE (<30 mg/g CRE)
[2024-06-02 09:00] LABS: Vitamin D,25 Hydroxy 53.5 ng/mL
[2024-06-02 13:53] LABS: Hemoglobin A1c 5.2 % (3.8-5.6)
== END | disposition home or self-care (01) ==
LOC: LAB 06:24
PROVIDERS: PCP Nurse Practitioner Family; Referring Provider Nurse Practitioner Family; Visit Provider Nurse Practitioner Family
DX: E55.9 Vitamin D deficiency, unspecified (principal); E78.5 Hyperlipidemia, unspecified; I25.10 Atherosclerotic heart disease of native coronary artery without angina pectoris; R73.01 Impaired fasting glucose; I10 Essential (primary) hypertension
CPT/HCPCS: 36415; 80053; 80061; 82043; 82306; 82570; 83036

== ENCOUNTER → 2024-12-07 | Outpatient (CLI) | payer BC, SELFPAY ==
[2024-12-07 08:17] LABS: Vitamin D,25 Hydroxy 61.9 ng/mL
[2024-12-07 08:18] LABS: ALB/GLOB Ratio 1.1 RATIO (0.9-2.4); AST(SGOT) 17 U/L (15-37); Alanine Aminotransfer ALT/SGPT 23 U/L (13-56); Albumin, Serum 3.6 g/dL (3.2-5.0); Alkaline Phosphatase 72 U/L (45-117); Anion Gap 7 (5-15); BUN 18 mg/dL (7-18); BUN/Creat Ratio 25.3 RATIO (10-20); Calcium,Total 9.2 mg/dL (8.5-10.1); Chloride 105 mmol/L (98-107); Cholesterol 172 mg/dL (200); Creatinine, Serum 0.71 mg/dL (0.55-1.02); EST Glomerular Filtration Rate 88 mL/min (>60); Est Glom Filt Rate - Afr Amer 107 mL/min (>60); Globulin 3.3 g/dL (2.2-4.2); Glucose 105 mg/dL (74-106); High Density Lipoprotein 50 mg/dL; Potassium 4.2 mmol/L (3.5-5.1); Protein, Total 6.9 g/dL (6.4-8.2); Sodium Level 139 mmol/L (136-145); Triglycerides 83 mg/dL; Very Low Density Lipoprotein 17 mg/dL (5-40)
[2024-12-07 09:10] LABS: Hemoglobin A1c 5.4 % (3.8-5.6)
[2024-12-07 10:30] LABS: Microalbumin,Random Urine 5.7 mg/L (NO RANGE EST.); Microalbumin:Creatinine Ratio 9.7 mg/g CRE (<30 mg/g CRE)
== END | disposition home or self-care (01) ==
LOC: LAB 06:56
PROVIDERS: PCP Nurse Practitioner Family; Referring Provider Nurse Practitioner Family; Visit Provider Nurse Practitioner Family
DX: I10 Essential (primary) hypertension (principal); R73.01 Impaired fasting glucose; E78.5 Hyperlipidemia, unspecified; I25.10 Atherosclerotic heart disease of native coronary artery without angina pectoris; E55.9 Vitamin D deficiency, unspecified
CPT/HCPCS: 36415; 80053; 80061; 82043; 82306; 82570; 83036

== ENCOUNTER → 2025-03-12 | Outpatient (CLI) | payer BC, SELFPAY ==
[2025-03-12 14:56] LABS: Absolute Lymphocyte Count 1.63 X10^3/uL (0.83-4.51); Absolute Neutrophil Count 4.5 X10^3/uL (2.0-7.7); Basophil# 0.09 X10^3/uL; Basophil% 1.3 % (0-1); Eosinophil# 0.27 X10^3/uL; Eosinophils% 3.8 % (0-5); Hematocrit 41.6 % (37-47); Hemoglobin 13.6 g/dL (12.0-15.0); Lymphocyte # 1.63 X10^3/ul (0.83-4.51); Lymphocyte % 22.6 % (19-41); Mean Corp Hgb Conc 32.7 g/dL (32-36); Mean Corpuscular Hgb 30.1 pg (27.0-32.0); Mean Platelet Vol. 9.5 fl (6.2-12.0); Monocyte# 0.72 X10^3/uL; NRBC Flagged by Analyzer 0 % (0-5); Neutrophil # 4.46 X10^3/uL (2.7-7.7); Neutrophil % 61.9 % (47-70); Platelet Count 424 K/mm3 (150-450); RBC Distribution Width CV 13.3 % (11.6-14.6); RBC Distribution Width SD 45.1 fl (35.1-43.9); Red Blood Count 4.52 M/mm3 (4.2-5.4); White Blood Count 7.2 K/mm3 (4.4-11.0)
[2025-03-12 16:37] LABS: Anion Gap 12 (5-15); BUN 18 mg/dL (4-19); BUN/Creat Ratio 23.1 RATIO (10-20); Carbon Dioxide 24.9 mmol/L (21.0-32.0); Chloride 100 mmol/L (98-108); Creatinine, Serum 0.78 mg/dL (0.70-1.20); EST Glomerular Filtration Rate 86 (>60); Glucose 90 mg/dL (70-99); Potassium 4.2 mmol/L (3.3-5.1); Pro- Brain NATRIURETIC PEPTIDE 916 pg/mL (<=900); Sodium Level 137 mmol/L (133-145); T4 Total, Thyroxin 6.6 ug/dL (4.8-13.9)
== END | disposition home or self-care (01) ==
PROVIDERS: PCP Nurse Practitioner Family; Referring Provider Internal Medicine Cardiovascular Disease; Visit Provider Internal Medicine Cardiovascular Disease
DX: I50.41 Acute combined systolic (congestive) and diastolic (congestive) heart failure (principal); R53.83 Other fatigue; I25.10 Atherosclerotic heart disease of native coronary artery without angina pectoris; R25.2 Cramp and spasm
CPT/HCPCS: 36415; 80048; 83880; 84436; 84443; 85025

== ENCOUNTER → 2025-03-29 | Outpatient (CLI) | payer BC, SELFPAY ==
--- NOTE | 2025-03-29 12:35 | ECHOL_ITS ---
Reason For Study Reason For Study: CHF Procedure This was a limited 2D transthoracic echocardiogram. Myocardial strain analysis was performed in this exam to aid in the assessment of cardiac function. Exam performed in department. Left Ventricle Moderately dilated left ventricle. The global longitudinal strain = -11.7% (abnormal). There is mild to moderate global hypokinesis of the left ventricle. Right Ventricle Normal RV size. Normal systolic function. Atria Normal left atrium. Normal right atrium. Mitral Valve Normal mitral valve. Mild (1+) eccentric mitral valve insufficiency. Tricuspid Valve Normal tricuspid valve. Aortic Valve Trisinus/trileaflet aortic valve. Mild focal aortic valve calcification. Mild (1+) aortic valve insufficiency. Pulmonic Valve Normal pulmonic valve. Great Vessels Normal sized aortic root. The pulmonary artery is normal size. Inferior vena cava collapse with respiration. Pericardium/Pleural No pericardial effusion. MMode/2D Measurements & Calculations LVIDd: 6.6 cm IVSd: 1.1 cm LA dimension: 4.4 cm LVIDs: 5.4 cm LVPWd: 1.1 cm RVDd: 3.2 cm FS: 17.6 % LAV(MOD-sp4): 43.6 ml LVAd ap4: 43.3 cm2 SV(MOD-sp4): 61.6 ml LVLd ap4: 9.3 cm SI(MOD-sp4): 34.3 ml/m2 EDV(MOD-sp4): 166.2 ml EDV(sp4-el): 170.5 ml LVAs ap4: 32.0 cm2 LVLs ap4: 8.4 cm ESV(MOD-sp4): 104.6 ml ESV(sp4-el): 103.3 ml EF(MOD-sp4): 37.0 % EF(sp4-el): 39.4 % SV(sp4-el): 67.1 ml LA A4 area: 15.9 cm2 RA A4 area: 13.2 cm2 ECHO/Echo, Limited Study Interpretation Summary Moderately dilated left ventricle. There is mild to moderate global hypokinesis of the left ventricle. Compared to previous study, the left ventricular systolic function is the same. . Ordering Physician: Austen Castro Referring Physician: Austen Castro Performed By: Shahzad Jones RCS
== END | disposition home or self-care (01) ==
PROVIDERS: PCP Nurse Practitioner Family; Referring Provider Nurse Practitioner Family; Visit Provider Nurse Practitioner Family
DX: E78.2 Mixed hyperlipidemia (principal); I50.9 Heart failure, unspecified; I11.0 Hypertensive heart disease with heart failure; I25.5 Ischemic cardiomyopathy
CPT/HCPCS: 93308

== ENCOUNTER → 2025-04-30 | Outpatient (CLI) | payer BC, SELFPAY ==
--- OUTSIDE RECORDS SUMMARY | 2025-04-30 06:59 | XMS RPT_ITS | CCD ---
Author Organization [facility] CliniSyct Care Team Providers Care Rn Peritoneal Dialysis Name Role Phone Ricki Griffin CNP Primary Care Provider GABY DIGITAL SALES REPRESENTATIVE - RICKI OLIVER Primary Care Phys ician RAFY WILLIAMSON-MELODY, SAMEER Attending RICKI Gaviria CNP Primary Care Unavaila ble Gaby TERMITE CONTROL SERVICER, TERMITE CONTROL SERVICER-C Ricki Reese Primary Care Pr ovider Dr. Jose Antonio Reeves Attending Provider Dr. Dinesh Burris Emergency Provider [phone] Dr. Julio César Arndt Admit Provider Dr. Julio César Arndt Other Provider Dr. Zulma Brunner Other Provider Dr. Rohan Awan Attending Provider Dr. Rohan Awan Other Provider FriendDr. Meraz Other Provider Dr. Zulma Brunner Attending Provider Dr. Kt Romero Attending Provider [phone] Jose Antonio Reeves Referring Provider Gaby TERMITE CONTROL SERVICER, TERMITE CONTROL SERVICER-C Ricki Reese Referring Provi timo Ricki Griffin CNP Primary Care Provider OLY GUZMÁN Attending Unavailable DAVIE REY Admitting Unavailable ZULMA BRUNNER Referring Unavailab LENKA Coleman Consulting Unavailable GABY, RICKI D Primary Care Unavailable Dr. Zulma Brunner Referring Provider Sandra Moreau Attending Provider Unavailable Moi TERMITE CONTROL SERVICER, TERMITE CONTROL SERVICER-C Lashay Attending Provider Gaby TERMITE CONTROL SERVICER, TERMITE CONTROL SERVICER-C Ricki Reese Primary Care Pr ovider Gaby TERMITE CONTROL SERVICER, TERMITE CONTROL SERVICER-C Ricki Reese Referring Provi timo Moi TERMITE CONTROL SERVICER, TERMITE CONTROL SERVICER-C Lashay Attending Provider Dr. Jose Antonio Reeves Attending Provider Coke TERMITE CONTROL SERVICER, TERMITE CONTROL SERVICER-C Ricki Reese Primary Care Pr ovider Gaby TERMITE CONTROL SERVICER, TERMITE CONTROL SERVICER-C Ricki Reese Referring Provi timo Moi TERMITE CONTROL SERVICER, TERMITE CONTROL SERVICER-C Lashay Attending Provider Dr. Jose Antonio Reeves Referring Provider AURINTHUYN Attending Unavailable GABY, RICKI D Primary Care Unavailable GABY, RICKI D Primary Care Unavailable AURIN, SHAY Attending Unavailable GABY, RICKI D Primary Care Unavailable AURIN, SHAY Attending Unavailable GABY, RICKI D Primary Care Unavailable AURIN, SHAY Attending Unavailable Gaby GRAB JACK WORKER, Ricki D Primary Care Provider JONG LOZOYA ARACELIS Referring Unavail able GABY, RICKI D Primary Care Unavailable NEYFABIOLAT DEVORA ARACELIS Attending Unavail able GABY, RICKI D Primary Care Unavailable NEYFABIOLAT DEVORA, ARACELIS Referring Unavail able GABY, RICKI D Primary Care Unavailable NEYFABIOLAT LOZOYA, ARACELIS Referring Unavail able Coke TERMITE CONTROL SERVICER-C, Ricki Reese Primary Care Provi timo Gaby TERMITE CONTROL SERVICER-CRicki Attending Provider Gaby TERMITE CONTROL SERVICER-CRicki Referring Provider Matthew TERMITE CONTROL SERVICER-Austen Sheridan Attending Provider Dr. Jose Antonio Reeves MD Attending Provider [phone] Jose Antonio Reeves MD Referring Provider Matthew TERMITE CONTROL SERVICER-C, Austen Traore Referring Provider Moi TERMITE CONTROL SERVICER-C, Lashay Attending Provider [phone] Gaby TERMITE CONTROL SERVICER, Ricki Reese Attending Unav ailable Gaby TERMITE CONTROL SERVICER, Ricki Reese Referring Unav ailable Gaby TERMITE CONTROL SERVICER, Ricki Reese Primary Care Unav ailable Coke TERMITE CONTROL SERVICER, Ricki Reese Primary Care Unav ailable Coke TERMITE CONTROL SERVICER, Ricki Reese Attending Unav ailable Gaby TERMITE CONTROL SERVICER, Ricki Reese Referring Unav ailable Roof TERMITE CONTROL SERVICER, Austen Traore Referring Unavailable Coke TERMITE CONTROL SERVICER, Ricki Reese Primary Care Unav ailable Roof TERMITE CONTROL SERVICER, Austen Traore Attending Unavailable Leandro, Jose Antonio Attending Unavailable Leandro, Jose Antonio Referring Unavailable Gaby TERMITE CONTROL SERVICER, Ricki Reese Primary Care Unav ailable Moi TERMITE CONTROL SERVICER, aLshay Attending Unavailable Coke TERMITE CONTROL SERVICER, Ricki Reese Primary Care Unav ailable Jose Antonio Reeves Attending Unavailable Coke TERMITE CONTROL SERVICER, Ricki Reese Primary Care Unav ailable Roof TERMITE CONTROL SERVICER, Austen Traore Attending Unavailable Gaby TERMITE CONTROL SERVICER, Ricki Reese Referring Unav ailable Gaby TERMITE CONTROL SERVICER, Ricki Reese Primary Care Unav ailable Moi TERMITE CONTROL SERVICER, Lashay Attending Unavailable Gaby TERMITE CONTROL SERVICER, Ricki Reese Referring Unav ailable Coke TERMITE CONTROL SERVICER, Ricki Reese Primary Care Unav ailable Allergies Allergy Classification Reported Allergen(s) Allergy Type Date of Onset Reaction(s) Facility (19 sources) Adhesive Tape; Translations: [ADHESIVE TAPE (ROSINS)] Allergy to substance 09-10-2012 [facility] (3 sources) Nicotine; Translations: [nicotine] Drug Allergy 01-06-2025 [facility] Comment on above: Nicotine patch (1 source) Nicotine Drug Allergy 01-06-[address] [facility] Rep[facility] Medications Current Medications Medication Drug Class(es) Dates Sig (Normalized) Sig (Original) acetaminophen 325 mg / HYDROcodone bitartrate 5 mg oral tablet (3 sources) Opioid Agonist Start: 07-12-2022 take 1 tablet by mouth every six hours as needed Hydrocodone-Acet aminophen Active 1 TABLET PO EVERY 6 HOURS NEEDED 10 3 July 12, 2022 [id number] 200 actuat albuterol 0.09 mg/actuat metered dose inhaler (2 sources) beta2-Adrenergic Agonist Start: 06-23-2024 Albuterol Sulfate 90 mcg/actuation HFA aerosol inhaler Active 2 NMA INHALATION EVERY 6 HOURS as needed June 23, 2024 12:00am aspirin 81 mg delayed release oral tablet (20 sources) Platelet Aggregation Inhibitor, Nonsteroidal Anti-inflammatory Drug Start: 03-22-2023 take 1 tablet by mouth once daily Aspirin (Adult Aspirin Regimen) 81 mg tablet,delayed release (DR/EC) Active 81 mg PO DAILY March 22, 2023 12:00am Start: 03-02-2023 End: 04-01-2023 take 1 tablet by mouth once daily in the evening aspirin 81 mg chewable tablet Chew 1 tablet by mouth once daily. 30 tablet 03/01/2023 4:11 PM EDT 03/02/2023 Active Start: 03-10-2020 take 1 mg by mouth once daily aspirin 325 mg oral delayed release tablet mg = tab(s), Oral, qDay, 0 Refill(s) Start Date: 03/10/20 Status: Ordered Start: 12-08-2008 End: 03-22-2023 take 1 tablet by mouth at bedtime Aspirin 325 MG tablet Discontinued 325 mg PO AT BEDTIME June 06, 2016 12:00am March 22, 2023 3:08pm Comment on above: 325 mg once daily. Chew 1 tablet by anuja th once daily. atorvastatin 40 mg oral tablet (20 sources) HMG-CoA Reductase Inhibitor Start: 01-06-2025 Atorvastatin 40 mg tablet Active 20 mg PO AT BEDTIME January 06, 2025 4:01pm Start: 05-13-2024 End: 01-06-2025 take 1 tablet by mouth at bedtime Atorvastatin 40 mg tablet Discontinued 40 mg PO AT BEDTIME 90 May 13, 2024 2:19pm January 06, 2025 4:03pm Start: 09-17-2023 End: 05-13-2024 Atorvastatin 80 mg tablet Discontinued 40 mg PO AT BEDTIME September 17, 2023 10:10am May 13, 2024 2:20pm Start: 09-17-2023 take 40 mg by mouth at bedtime Atorvastatin Active 40 MG PO AT BEDTIME September 17, 2023 9:10am Start: 07-12-2023 End: 08-11-2023 take 0.5 tablet by mouth once daily at bedtime atorvastatin (LIPITOR) 80 mg tablet Take 0.5 tablets by mouth daily at bedtime. 15 tablet 07/12/2023 Active Start: 03-01-2023 End: 09-17-2023 take 1 tablet by mouth at bedtime Atorvastatin 80 mg tablet Discontinued 80 mg PO AT BEDTIME March 22, 2023 12:00am March 25, 2023 2:37pm Comment on above: Take 1 tablet by anuja th daily at bedtime. Take 0.5 tablets by mouth daily at bedtime. Azithromycin 5 Day Dose Pack 250 mg oral tablet (1 source) Start: 09-21-2022 End: 09-26-2022 Azithromycin 5 Day Dose Pack 250 mg oral tablet Take two (2) tablets day 1-then one (1) tablet, Oral, Daily, X 5 day(s), # 6 tab(s), 0 Refill(s), 09/26/22 13:20:00 EST, Pharmacy: [facility] [id number], 157.5, cm, 09/21/22 13:03:00 EST, Height, 76.6 Start Date: 09/21/22 Stop Date: 09/26/22 Status: Ordered Blood Pressure Monitor (4 sources) Start: 07-03-2023 Blood Pressure Monitor Active 0 .Route July 03, 2023 5:54pm As directed Start: 06-26-2023 End: 07-03-2023 Blood Pressure Monitor Disco ntinued 0 .Route June 25, 2023 11:00pm July 03, 2023 5:55pm As directed Blood Pressure Monitor kit (4 sources) Start: 07-03-2023 Blood Pressure Monitor kit Active 0 .Route July 03, 2023 6:54pm As directed Start: 06-26-2023 End: 07-03-2023 Blood Pressure Monitor kit D iscontinued 0 .Route 1 June 26, 2023 12:00am July 03, 2023 6:55pm As directed 12 hr buPROPion hydrochloride 150 mg extended release oral tablet (20 sources) Aminoketone Start: 01-06-2025 take 1 tablet by mouth twice daily Bupropion Hcl 150 mg tablet sustained-release 12 hr Active 150 mg PO TWICE A DAY January 06, 2025 12:00am Start: 06-26-2023 End: 06-23-2024 take 1 tablet by mouth once daily Bupropion Hcl 150 mg tablet sustained-release 12 hr Discontinued 150 mg PO DAILY June 26, 2023 1:42pm June 23, 2024 8:35am Start: 03-01-2023 End: 06-26-2023 take 1 tablet by mouth twice daily Bupropion Hcl 150 mg tablet sustained-release 12 hr Discontinued 150 mg PO TWICE A DAY March 22, 2023 12:00am June 26, 2023 1:44pm Comment on above: Take 1 tablet by anuja twice daily. calcium carbonate 1500 mg oral tablet (2 sources) Start: 01-06-2025 take 1 tablet by mouth once daily Calcium Carbonate 600 mg calcium (1,500 mg) tablet Active 600 mg PO daily January 06, 2025 12:00am carvedilol 12.5 mg oral tablet (20 sources) alpha-Adrenergic Jaden, beta-Adrenergic Jaden Start: 03-15-2025 take 1 tablet by mouth twice daily at mealtime Carvedilol 12.5 mg tablet Active 12.5 mg PO TWICE A DAY 180 March 15, 2025 12:00am must administer with a meal/food Start: 01-06-2025 End: 03-15-2025 take 1 tablet by mouth twice daily Carvedilol 25 mg tablet Discontinued 25 mg PO TWICE A DAY 180 January 06, 2025 4:32pm March 15, 2025 12:31pm Start: 09-17-2023 End: 01-06-2025 take 1 tablet by mouth twice daily Carvedilol 12.5 mg tablet Discontinued 12.5 mg PO TWICE A DAY 180 May 05, 2024 8:02am January 06, 2025 4:31pm Start: 06-26-2023 End: 09-17-2023 take 2 tablets by mouth twice daily at mealtime Carvedilol 12.5 mg tablet Discontinued 25 mg PO TWICE A DAY 180 June 26, 2023 1:49pm September 17, 2023 10:13am must administer with a meal/food Start: 06-26-2023 End: 09-17-2023 take 25 mg by mouth twice daily at mealtime Carvedilol Discontinued 25 MG PO TWICE A DAY 180 June 26, 2023 12:49pm September 17, 2023 9:13am must administer with a meal/food Start: 03-22-2023 End: 03-22-2023 take 1 tablet by mouth twice daily at mealtime Carvedilol 6.25 mg tablet Discontinued 6.25 mg PO TWICE A DAY March 22, 2023 12:00am March 22, 2023 3:25pm must administer with a meal/food Start: 03-07-2023 End: 06-26-2023 take 1 tablet by mouth twice daily at mealtime Carvedilol 12.5 mg tablet Discontinued 12.5 mg PO TWICE A DAY March 22, 2023 12:00am March 25, 2023 2:37pm must administer with a meal/food Comment on above: Take 1 tablet by anuja twice daily with meals. celecoxib 200 mg oral capsule (18 sources) Nonsteroidal Anti-inflammatory Drug Start: 023 take 1 capsule by mouth once daily Celecoxib (Celebrex) 200 mg capsule Active 200 mg PO DAILY March 25, 2023 12:00am Comment on above: Take 200 mg by mouth once daily. cetirizine hydrochloride 10 mg oral capsule (2 sources) Histamine-1 Receptor Antagonist Start: 024 take 1 capsule by mouth once daily as needed Cetirizine (Allergy Relief (Cetirizine)) 10 mg capsule Active 10 mg PO daily as needed June 23, 2024 12:00am cholecalciferol 0.025 mg oral capsule (20 sources) Vitamin D Start: take 1 capsule by mouth once daily Cholecalciferol (Vitamin D3) 25 mcg (1,000 unit) capsule Active 125 ug PO DAILY March 25, 2023 2:31pm Start: 03-22-2023 End: 03-25-2023 take 1 capsule by mouth once daily Cholecalciferol (Vitamin D3) 25 mcg (1,000 unit) capsule Discontinued 25 ug PO DAILY March 22, 2023 12:00am March 25, 2023 2:32pm Start: 02-22-2023 End: 03-25-2023 take 1 capsule by mouth once daily Cholecalciferol (Vitamin D3) (Vitamin D3) 25 mcg (1,000 unit) Capsule Discontinued 50 ug PO DAILY February 22, 2023 12:00am March 25, 2023 2:32pm Start: 04-06-2022 End: 10-03-2022 cholecalciferol 1250 mcg (50 ,000 intl units) oral capsule Dose : 50,000 International_Unit = 1 cap(s), Oral, every other week, # 7 cap(s), 1 Refill(s), Pharmacy: [id number], Vitamin D deficiency, 157, cm, 04/06/22 15:49:00 EDT, Height, kg, 04/06/22 15:49:00 EDT, Dosing Weight Start Date: 04/06/22 Stop Date: 10/03/22 Status: Ordered cholecalciferol (VITAMIN D3) 5,000 unit tab Take 1,000 Units by mouth once daily. Active take 1 tablet by anuja once daily cholecalciferol (VITAMIN D3) 5,000 unit tab Take 5,000 Units by mouth once daily. 0 Active Comment on above: Take 5,000 Units by mouth once daily. Take 1,000 Units by mouth once daily. 12 hr guaiFENesin 600 mg extended release oral tablet (1 source) Start: End: Mucinex 600 mg oral tablet, extended release Dose : 600 mg = 1 tab(s), Oral, q12h, X 10 day(s), # 20 tab(s), 0 Refill(s), 10/01/22 13:23:00 EST, Pharmacy: [id number], 157.5, cm, 09/21/22 13:03:00 EST, Height Start Date: 09/21/22 Stop Date: 10/01/22 Status: Ordered methylPREDNISolone 4 mg oral tablet (1 source) Corticosteroid Start: End: Medrol Dosepak 4 mg oral tablet Per Dosepak Instructions, Oral, Daily, as directed on package labeling, X 6 day(s), # 1 EA, 0 Refill(s), 09/27/22 13:21:00 EST, Pharmacy: [id number], 157.5, cm, 09/21/22 13:03:00 EST, Height Start Date: 09/21/22 Stop Date: 09/27/22 Status: Ordered montelukast 10 mg oral tablet (2 sources) Leukotriene Receptor Antagonist Start: take 1 tablet by mouth once daily Montelukast (Singulair) 10 mg tablet Active 10 mg PO daily June 23, 2024 12:00am MULTIVIT-MINERALS/FERROUS FUM (MULTI VITAMIN ORAL) (16 sources) MULTIVIT-MINERAL S/ FERROUS FUM (MULTI VITAMIN ORAL) Take by mouth once daily. Active MULTIVIT-MINERAL S/FERROUS FUM (MULTI VITAMIN ORAL) Take by mouth once daily. 0 Active Comment on above: Take by mouth once d aily. Multivitamin With Iron (8 sources) Start: 03-22-2023 take 1 tablet by mouth once daily Multivitamin With Iron Active 1 TABLET PO DAILY March 21, 2023 11:00pm Start: 03-22-2023 take 1 tablet by anuja th once daily Multivitamin With Iron Active 1 TABLET PO DAILY March 22, 2023 12:00am Multivitamin With Iron tablet (2 sources) Start: 03-22-2023 Multivitamin W ith Iron tablet Active 1 {tbl} PO DAILY March 22, 2023 12:00am Nitroglycerin 0.4 mg tablet, sublingual (2 sources) Start: 01-06-2025 Nitroglycerin 0.4 mg tablet, sublingual Active mg SL January 06, 2025 12:00am Tiotropium-Olodaterol (9 sources) Anticholinergic, beta2-Adrenergic Agonist Start: 01-06-2025 Tiotropium-Olodatero l (Stiolto Respimat) 2.5-2.5 mcg/actuation mist Active 2 NMA INHALATION daily January 06, 2025 12:00am Start: 11-18-2023 STIOLTO RESPIM AT 2.5-2.5 mcg/actuation Inhale 2.5 mcg as instructed once daily. 11/18/2023 Active Start: 04-26-2022 End: 10-23-2022 take 1 dose by inhalation every twenty-four hours Stiolto Respimat 60 ACT 2.5 mcg-2.5 mcg/inh inhalation aerosol Dose = 2 puff(s), Inhalation, q24h, # 3 EA, 1 Refill(s), Pharmacy: [facility], 157, cm, 04/06/22 15:49:00 EDT, Height, kg, 04/06/22 15:49:00 EDT, Dosing Weight Start Date: 04/26/22 Stop Date: 10/23/22 Status: Ordered Comment on above: Inhale 2.5 mcg as in structed once daily. ondansetron 4 mg disintegrating oral tablet (20 sources) Serotonin-3 Receptor Antagonist Start: take 4 mg by mouth every eight hours as needed Ondansetron Active 4 MG PO EVERY 8 HOURS NEEDED July 12, 2022 12:00am Start: 09-29-2017 End: 04-21-2021 take 1 tablet by mouth every eight hours as needed for nausea Ondansetron 8 MG tablet,disintegrating Discontinued 8 mg PO EVERY 8 HOURS NEEDED as needed for Nausea/Vomiting September 29, 2017 1:00am April 21, 2021 1:39am Start: 08-22-2016 End: 04-21-2021 take 1 tablet by mouth every eight hours as needed for nausea Ondansetron 4 MG tablet Discontinued 4 m g PO EVERY 8 HOURS NEEDED as needed for Nausea August 22, 2016 1:00am April 21, 2021 1:39am pantoprazole 40 mg delayed release oral tablet (20 sources) Proton Pump Inhibitor Start: 06-06-2016 End: 10-23-2022 take 1 tablet by mouth once daily Pantoprazole 40 MG tablet Active 40 mg PO DAILY July 12, 2022 2:57pm Comment on above: Take 40 mg by mouth once daily. sertraline 25 mg oral tablet (20 sources) Serotonin Reuptake Inhibitor Start: 04-14-2021 take 1 tablet by mouth once daily Sertraline 25 mg tablet Active 25 mg PO DAILY March 22, 2023 12:00am Comment on above: Take 25 mg by mouth once daily. For 30 days vitamin b12 1 mg oral tablet (20 sources) Vitamin B12 Start: 09-17-2023 take 1 tablet by mouth once daily Cyanocobalamin (Vitamin B-12) (Vitamin B-12) 1,000 mcg tablet Active 1000 ug PO DAILY September 17, 2023 10:11am Start: 02-22-2023 End: 09-17-2023 take 5 tablets by mouth once daily Cyanocobalamin (Vitamin B-12) (Vitamin B-12) 1,000 mcg Tablet Discontinued 5000 ug PO DAILY February 22, 2023 12:00am September 17, 2023 10:13am Comment on above: Take 1,000 mcg by [facility] once daily. Vitamin B12 1000 mcg oral tablet (1 source) Start: 07-02-2019 Vitamin B12 1000 mcg oral tablet Dose : 1,000 mcg = 1 tab(s), Oral, qDay, # 30 tab(s), 0 Refill(s) Start Date: 07/02/19 Status: Ordered Zinc (16 sources) ZINC ORAL Take b y mouth once daily. Active ZINC ORAL Take b y mouth once daily. 0 Active Comment on above: Take by mouth once d aily. zinc gluconate 100 mg oral tablet (15 sources) Start: 09-17-2023 Zinc Gluconate 100 mg tablet Active 50 mg PO DAILY September 17, 2023 10:08am Start: 09-17-2023 take 50 mg by mouth once daily Zinc Gluconate Active 50 MG PO DAILY September 17, 2023 9:08am Start: 03-22-2023 End: 09-17-2023 take 1 tablet by mouth once daily Zinc Gluconate 100 mg tablet Discontinued 100 mg PO DAILY March 22, 2023 12:00am September 17, 2023 10:13am Start: 09-12-2020 zinc (as gluco jarek) 30 mg oral tablet Dose : 30 mg = 1 tab(s), Oral, Daily, 0 Refill(s) Start Date: 09/12/20 Status: Ordered Completed/Discontinued Medications Medication Drug Class(es) Dates Sig (Normalized) Sig (Original) ascorbic acid 500 mg oral tablet (20 sources) Vitamin C Start: 03-22-2023 End: 06-23-2024 take 1 tablet by mouth once daily Ascorbic Acid (Vitamin C) 500 mg tablet Discontinued 500 mg PO DAILY March 22, 2023 12:00am June 23, 2024 8:35am Comment on above: Take 500 mg by mouth once daily. busPIRone hydrochloride 10 mg oral tablet (20 sources) Start: 12-11-2017 take 1 tablet by mouth twice daily Buspirone 10 mg tablet Active 10 mg PO TWICE A DAY June 26, 2023 1:43pm Start: 12-11-2017 End: 06-26-2023 take 1 tablet by mouth three times daily Buspirone (Buspar) 10 mg Tablet Discontinued 10 mg PO THREE TIMES A DAY February 22, 2023 12:00am June 26, 2023 1:44pm Start: 12-11-2017 busPIRone (BUS PAR) 10 mg tablet Take 15 mg by mouth once daily. 0 12/11/2017 Active Start: 09-29-2017 take 10 mg by mouth three times daily Buspirone Active 10 MG PO THREE TIMES A DAY September 29, 2017 1:00am Comment on above: Take 15 mg by mouth once daily. Take 10 mg by mouth three times daily. Take 10 mg by mouth two times a day. Calcium Carbonate-Vitamin D2 (Calcium + Vitamin D) 600 mg calcium- 200 unit Tablet (13 sources) Start: 02-22-2023 End: 03-22-2023 Calcium Carbonate-Vitamin D2 (Calcium + Vitamin D) 600 mg calcium- 200 unit Tablet Discontinued 1 {tbl} PO TWICE A DAY February 22, 2023 12:00am March 22, 2023 3:11pm Start: 02-22-2023 End: 03-22-2023 take 1 tablet by mouth twice daily Calcium Carbonate-Vitamin D2 (Calcium + Vitamin D) 600 mg calcium- 200 unit Tablet Discontinued 1 TABLET PO TWICE A DAY February 21, 2023 11:00pm March 22, 2023 2:11pm Start: 02-22-2023 End: 03-22-2023 take 1 tablet by mouth twice daily Calcium Carbonate-Vitamin D2 (Calcium + Vitamin D) 600 mg calcium- 200 unit Tablet Discontinued 1 TABLET PO TWICE A DAY February 22, 2023 12:00am March 22, 2023 3:11pm Start: 02-22-2023 take 1 tablet by anuja th twice daily Calcium Carbonate-Vitamin D2 (Calcium + Vitamin D) 600 mg calcium- 200 unit Tablet Active 1 TABLET PO TWICE A DAY February 22, 2023 12:00am clopidogrel 75 mg oral tablet (20 sources) [id number] Platelet Inhibitor Start: 12-08-2008 End: 01-06-2025 take 1 tablet by mouth at bedtime Clopidogrel 75 MG tablet Discontinued 75 mg PO AT BEDTIME June 06, 2016 12:00am March 25, 2023 2:37pm Comment on above: Take one(1) tablet d aily. Take 1 tablet by anuja th once daily. dicyclomine hydrochloride 20 mg oral tablet (12 sources) Anticholinergic Start: 04-24-2023 End: 09-17-2023 take 1 tablet by mouth twice daily as needed for pain Dicyclomine 20 mg tablet Discontinued 20 mg PO TWICE A DAY as needed for abdominal pain April 24, 2023 6:24pm September 17, 2023 10:12am Start: 09-29-2017 take 20 mg by mouth at bedtime Dicyclomine Active 20 MG PO BEFORE MEALS AND AT BEDTIME September 29, 2017 1:00am empagliflozin 10 mg oral tablet (20 sources) Sodium-Glucose Cotransporter 2 Inhibitor Start: 03-01-2023 End: 01-06-2025 take 1 tablet by mouth once daily Empagliflozin (Jardiance) 10 mg tablet Discontinued 10 mg PO DAILY April 09, 2024 7:58am January 06, 2025 4:33pm Comment on above: Take 1 tablet by anuja th once daily. furosemide 20 mg oral tablet (20 sources) Loop Diuretic Start: 07-12-2023 End: 01-06-2025 take 1 tablet by mouth once daily Furosemide 20 mg tablet Discontinued 20 mg PO DAILY February 17, 2024 8:39am January 06, 2025 4:33pm Start: 06-07-2023 End: 09-17-2023 take 1 tablet by mouth every other day Furosemide 20 mg tablet Discontinued 20 mg PO .qod June 26, 2023 1:36pm September 17, 2023 10:13am Start: 03-07-2023 End: 06-26-2023 take 1 tablet by mouth once daily Furosemide 20 mg tablet Discontinued 20 mg PO DAILY March 22, 2023 12:00am March 25, 2023 2:37pm Comment on above: Take 1 tablet by anuja th as needed. Take as needed for 3-4 lb weight gain in 1-2 days. Take 1 tablet by anuja th every other day in the morning. Take as needed for 3-4 lb weight gain in 1-2 days. Take 1 tablet by anuja th as needed. Take 1 tablet by anuja th once daily. hydroCHLOROthiazide 12.5 mg oral tablet (10 sources) Thiazide Diuretic Start: End: hydroCHLOROthiazide (HYDRODIURIL, ESIDRIX) 12.5 mg tablet Start: 06-06-2016 End: 08-14-2022 take 12.5 mg by mouth once daily Hydrochlorothiazide Active 12.5 MG PO DAILY June 06, 2016 12:00am Comment on above: Take 12.5 mg by mout h once daily. hydroCHLOROthiazide 12.5 mg / valsartan 320 mg oral tablet (20 sources) Thiazide Diuretic, Angiotensin 2 Receptor Jaden Start: 04-26-2022 End: 03-22-2023 Valsartan-Hydrochlorot hiazide (Diovan Hct) 320-12.5 mg Tablet Discontinued 1 {tbl} PO DAILY February 22, 2023 12:00am March 22, 2023 3:15pm Comment on above: Take 1 tablet by anuja th once daily. lisinopril 40 mg oral tablet (10 sources) Angiotensin Converting Enzyme Inhibitor Start: 09-08-2012 End: 03-01-2023 LISINOPRIL 40 mg tablet twice daily. 0 09/08/2012 03/01/2023 Discontinued Comment on above: twice daily. metoprolol tartrate 50 mg or al tablet (20 sources) beta-Adrenergic Jaden Start: 06-06-2016 End: 03-20-2023 Metoprolol Tartrate 50 MG tablet Discontinued 75 mg PO TWICE A DAY June 06, 2016 12:00am March 20, 2023 2:05pm Start: 06-06-2016 End: 03-20-2023 take 75 mg by mouth twice daily Metoprolol Tartrate Discontinued 75 MG PO TWICE A DAY June 05, 2016 11:00pm March 20, 2023 1:05pm Start: 06-06-2016 End: 10-23-2022 take 50 mg by mouth twice daily Metoprolol Tartrate Active 50 MG PO TWICE A DAY June 06, 2016 12:00am Comment on above: Take 75 mg by mouth twice daily. 75mg 1 1/2 tablet 2 times a day Multivitamin preparation (11 sources) Start: 02-22-2023 End: 03-22-2023 take 1 tablet by mouth once daily Multivitamin Discontinued 1 TABLET PO DAILY February 21, 2023 11:00pm March 22, 2023 2:16pm Start: 02-22-2023 End: 03-22-2023 take 1 tablet by mouth once daily Multivitamin Discontinued 1 TABLET PO DAILY February 22, 2023 12:00am March 22, 2023 3:16pm Start: 02-22-2023 take 1 tablet by anuja th once daily Multivitamin Active 1 TABLET PO DAILY February 22, 2023 12:00am Multivitamin Tablet (2 sources) Start: 02-22-2023 End: 03-22-2023 Multivitamin Tablet Discontinued 1 {tbl} PO DAILY February 22, 2023 12:00am March 22, 2023 3:16pm 24 hr nicotine 0.875 mg/hr transdermal system (17 sources) Cholinergic Nicotinic Agonist Start: 03-22-2023 End: 03-25-2023 apply 1 dose transdermal route every twenty-four hours Nicotine (Nicoderm Cq) 21 mg/24 hr patch 24 hour Discontinued 1 NMA TD Q24H March 22, 2023 12:00am March 25, 2023 2:09pm Start: 03-22-2023 End: 03-25-2023 apply 1 dose transdermal route every twenty-four hours, then apply 1 dose transdermal route every twenty-four hours Nicotine (Nicoderm Cq) 21 mg/24 hr patch 24 hour Discontinued 1 PATCH TD Q24H March 21, 2023 11:00pm March 25, 2023 1:09pm Start: 03-01-2023 End: 03-29-2023 nicotine (NICODERM) 7 mg/24 hr Apply 1 Patch as directed every 24 hours for 28 days. 28 Patch 03/01/2023 4:11 PM EDT 03/01/2023 Active Comment on above: Apply 1 Patch as dir ected every 24 hours for 28 days. nitroglycerin 0.4 mg sublingual tablet (1 source) Nitrate Vasodilator Start: 09-29-20 End: 01-28-20 Nitrostat 0.4 mg sublingual tablet Dose : 0.4 mg = 1 tab(s), Sublingual, q5min, PRN for chest pain, # 100 tab(s), 3 Refill(s), Pharmacy: [facility], 157, cm, 09/29/21 14:25:00 EST, Height, kg, 09/29/21 14:25:00 EST, Dosing Weight Start Date: 09/29/21 Stop Date: 01/27/22 Status: Ordered promethazine hydrochloride 25 mg oral tablet (12 sources) Phenothiazine Start: 04-24-20 End: 01-07-20 take 1 tablet by mouth three times daily as needed for nausea and vomiting Promethazine 25 mg tablet Discontinued 25 mg PO THREE TIMES A DAY as needed for nausea and vomiting April 24, 2023 12:00am January 06, 2025 4:02pm Start: 08-20-2016 take 25 mg rectal ro yazmin every four hours as needed Promethazine (Phenergan) 25 MG suppository Active 25 MG RECTAL EVERY 4 HOURS NEEDED August 20, 2016 1:00am rosuvastatin calcium 10 mg oral tablet (20 sources) HMG-CoA Reductase Inhibitor Start: 06-06-2016 End: 03-22-2023 take 2 tablets by mouth at bedtime Rosuvastatin 10 MG tablet Discontinued 20 mg PO AT BEDTIME June 06, 2016 12:00am March 22, 2023 3:15pm Start: 06-06-2016 End: 03-22-2023 take 20 mg by mouth at bedtime Rosuvastatin Discontinu ed 20 MG PO AT BEDTIME June 05, 2016 11:00pm March 22, 2023 2:15pm Start: 06-06-2016 End: 08-14-2022 take 10 mg by mouth at bedtime Rosuvastatin Active 10 MG PO AT BEDTIME June 06, 2016 12:00am Comment on above: Take 10 mg by mouth once daily. sacubitril 97 mg / valsartan 103 mg oral tablet (20 sources) Angiotensin 2 Receptor Jaden Start: 03-05-2024 End: 01-06-2025 Sacubitril-Valsartan (Entresto) 97-103 mg tablet Discontinued 1 {tbl} PO TWICE A DAY 180 March 05, 2024 10:05am January 06, 2025 4:33pm Start: 05-22-2023 End: 03-05-2024 Sacubitril-Valsartan (Entres to) 49-51 mg tablet Discontinued 1 {tbl} PO TWICE A DAY 180 February 14, 2024 3:59pm March 05, 2024 10:04am Start: 03-01-2023 End: 05-22-2023 Sacubitril-Valsartan (Entres to) 24-26 mg tablet Discontinued 1 {tbl} PO TWICE A DAY March 22, 2023 12:00am March 25, 2023 2:37pm Comment on above: Take 1 tablet by anuja th twice daily. Take 49-51 tablets b y mouth twice daily. spironolactone 25 mg oral tablet (20 sources) Aldosterone Antagonist Start: End: take 1 tablet by mouth twice daily Spironolactone 25 mg tablet Discontinued 25 mg PO TWICE A DAY 60 July 22, 2023 3:44pm January 06, 2025 4:33pm Comment on above: Take 1 tablet by anuja th twice daily. sucralfate 1000 mg oral tablet (20 sources) Aluminum Complex Start: End: take 1 tablet by mouth at bedtime Sucralfate 1 gram tablet Discontinued 1 g PO before meals and at bedtime March 22, 2023 12:00am June 23, 2024 8:35am Comment on above: Take one tablet by m outh before meals and at bedtime as needed 24 hr venlafaxine 150 mg extended release oral capsule (20 sources) Serotonin and Norepinephrine Reuptake Inhibitor Start: End: take 1 capsule by mouth once daily Venlafaxine (Effexor Xr) 150 mg Capsule,Extended Release 24hr Discontinued 150 mg PO DAILY February 22, 2023 12:00am June 26, 2023 1:44pm Comment on above: Take 150 mg by mouth once daily. Problems Active Problems Problem Classification Problem Date Documented Date Episodic/Chronic Abdominal hernia (14 sources) Hiatal hernia; Translations: [Diaphragmatic hernia without obstruction or gangrene] 02-22-2023 Episodic Abdominal pain (20 sources) Epigastric pain; Translations: [Epigastric pain] Episodic Alcohol-related disorders (19 sources) Alcohol abuse; Translations: [Alcohol abuse, uncomplicated] Onset: 02-28-2023 03-01-2023 Chronic Cardiac dysrhythmias (20 sources) Ventricular tachycardia; Translations: [Ventricular tachycardia] Onset: 02-26-2023 02-26-2023 Chronic Chronic obstructive pulmonary disease and bronchiectasis (12 sources) Chronic obstructive lung disease; Translations: [Chronic obstructive pulmonary disease with (acute) exacerbation] Onset: 09-21-2022 03-10-2020 Chronic Congestive heart failure; nonhypertensive (20 sources) Heart failure with reduced ejection fraction; Translations: [Unspecified systolic (congestive) heart failure] Onset: 02-26-2023 02-22-2023 Chronic Coronary atherosclerosis and other heart disease (20 sources) Coronary arteriosclerosis; Translations: [Atherosclerotic heart disease of [place] coronary artery without angina pectoris] Onset: 09-10-2012 09-10-2012 Chronic Coronary atherosclerosis and other heart disease (20 sources) Stented coronary artery; Translations: [Presence of coronary angioplasty implant and graft] Onset: 02-25-2023 11-06-2013 Episodic Comment on above: Successful PCI of th e culprit, mid RCA 80% stenosis :drug-eluting stent resolute Onyx3.5 x 30 mm Diabetes mellitus without complication (1 source) Impaired fasting glycemia 03-10-2020 Episodic Disorders of lipid metabolism (20 sources) Dyslipidemia; Translations: [Hyperlipidemia, unspecified] Onset: 08-29-2016 08-29-2016 Chronic Essential hypertension (20 sources) Hypertensive disorder; Translations: [Essential (primary) hypertension] Onset: 09-10-2012 Resolved: 08-29-2016 08-29-2016 Chronic Gastritis and duodenitis (16 sources) Gastritis; Translations: [Other gastritis without bleeding] Episodic Malaise and fatigue (2 sources) Fatigue; Translations: [Other fatigue] 03-12-2025 Episodic Nausea and vomiting (20 sources) Nausea and vomiting; Translations: [Nausea with vomiting, unspecified] Episodic Nutritional deficiencies (2 sources) Vitamin D deficiency; Translations: [Vitamin D deficiency, unspecified] Onset: 06-16-2024 03-14-2021 Chronic Other connective tissue disease (2 sources) Cramp in lower limb; Translations: [Cramp and spasm] 03-12-2025 Episodic Other lower respiratory disease (13 sources) Hypoxia; Translations: [Hypoxemia] 02-22-2023 Episodic Other lower respiratory disease (9 sources) Hypoxemia; Translations: [Hypoxemia] 02-22-2023 Episodic Other non-traumatic joint disorders (1 source) Knee pain 04-25-2020 Episodic Other nutritional; endocrine; and metabolic disorders (16 sources) Obesity; Translations: [Obesity, unspecified] Onset: 08-29-2016 08-29-2016 Chronic Dania-; endo-; and myocarditis; cardiomyopathy (except that caused by tuberculosis or sexually transmitted disease) (20 sources) Dilated cardiomyopathy; Translations: [Dilated cardiomyopathy] Onset: 02-27-2023 02-22-2023 Chronic Pneumonia (except that caused by tuberculosis or sexually transmitted disease) (2 sources) Pneumonia; Translations: [Pneumonia, unspecified organism] 02-22-2023 Episodic Residual codes; unclassified (1 source) Increased body mass index 09-29-2021 Episodic Residual codes; unclassified (2 sources) Postmenopausal state; Translations: [Asymptomatic menopausal state] 09-21-2024 Episodic Residual codes; unclassified (1 source) Asymptomatic menopausal state; Translations: [Asymptomatic postmenopausal status] Onset: 11-19-2024 Episodic Septicemia (except in labor) (2 sources) Sepsis; Translations: [Sepsis, unspecified organism] 02-22-2023 Episodic Substance-related disorders (19 sources) Nicotine dependence; Translations: [Nicotine dependence, unspecified, uncomplicated] Onset: 02-26-2023 02-26-2023 Chronic Unclassified (1 source) Ventricular tachyarrhythmia (HCC); Translations: [Ventricular tachyarrhythmia (HCC)] Onset: 02-26-2023 Unclassified (1 source) Other ventricular tachycardia; Translations: [Other ventricular tachycardia] Onset: 01-07-2025 Past or Other Problems Problem Classification Problem Date Documented Date Episodic/Chronic Menopausal disorders (5 sources) Perimenopausal state; Translations: [Menopausal and female climacteric states] Onset: 09-10-2012 Resolved: 07-06-2015 07-06-2015 Chronic Mood disorders (6 sources) Depressive disorder; Translations: [Premenstrual dysphoric disorder] Onset: 09-10-2012 Resolved: 07-06-2015 03-10-2020 Chronic Other disorders of stomach and duodenum (16 sources) Gastroparesis syndrome; Translations: [Gastroparesis] Onset: 08-29-2016 08-29-2016 Episodic Other screening for suspected conditions (not mental disorders or infectious disease) (20 sources) Patient encounter status; Translations: [Encounter for screening for malignant neoplasm of intestinal tract, unspecified] Onset: 10-02-2012 10-02-2012 Episodic Residual codes; unclassified (16 sources) Tobacco user; Translations: [Tobacco use] Onset: 02-26-2023 07-12-2022 Episodic Results Test Name Value Interpretation Reference Range Facility Echo, Limited Studyon 2024 Echo, Limited Study [facility] [place] [address] Echo, Limited Study 03/29/25 1258 MR#: [id number] Acct: [id number] Name: VISHAL GEORGE Rep #: [id number] : 1960 65 From: Jose Antonio Reeves MD Attending Dr: Austen Castro NP-C Status: REG CLI Ordering Dr: Austen Castro NP [employer] SERVICER-C Date: 03/29/25 Location: [facility] Sex: F C Admitted: Reason For Study Reason For Study: CHF Procedure This was a limited 2D transthoracic echocardiogram. Myocardial strain analysis was performed in this exam to aid in the assessment of cardiac function. Exam performed in department. Left Ventricle Moderately dilated left ventricle. The global longitudinal strain = -11.7% (abnormal). There is mild to moderate global hypokinesis of the left ventricle. Right Ventricle Normal RV size. Normal systolic function. Atria Normal left atrium. Normal right atrium. Mitral Valve Normal mitral valve. Mild (1+) eccentric mitral valve insufficiency. Tricuspid Valve Normal tricuspid valve. Aortic Valve Trisinus/trileaflet aortic valve. Mild focal aortic valve calcification. Mild (1+) aortic valve insufficiency. Pulmonic Valve Normal pulmonic valve. Great Vessels Normal sized aortic root. The pulmonary artery is normal size. Inferior vena cava collapse with respiration. Pericardium/Pleural No pericardial effusion. MMode/2D Measurements Calculations LVIDd: 6.6 cm IVSd: 1.1 cm LA dimension: 4.4 cm LVIDs: 5.4 cm LVPWd: 1.1 cm RVDd: 3.2 cm FS: 17.6 % LAV(MOD-sp4): 43.6 ml LVAd ap4: 43.3 cm2 SV(MOD-sp4): 61.6 ml LVLd ap4: 9.3 cm SI(MOD-sp4): 34.3 ml/m2 EDV(MOD-sp4): 166.2 ml EDV(sp4-el): 170.5 ml LVAs ap4: 32.0 cm2 LVLs ap4: 8.4 cm ESV(MOD-sp4): 104.6 ml ESV(sp4-el): 103.3 ml EF(MOD-sp4): 37.0 % EF(sp4-el): 39.4 % SV(sp4-el): 67.1 ml LA A4 area: 15.9 cm2 RA A4 area: 13.2 cm2 ECHO/Echo, Limited Study Interpretation Summary Moderately dilated left ventricle. There is mild to moderate global hypokinesis of the left ventricle. Compared to previous study, the left ventricular systolic function is the same.. Ordering Physician: Austen Castro Referring Physician: Austen Castro Performed By: Shahzad Jones RCS 03/29/251903 Date Jose Antonio Reeves MD CC: PHONG Castro; PHONG Griffin Date Dictated: 03/29/25 1258 Date Transcribed: 03/29/251903 Compliance Investigator: Signed [facility] Limited echocardiogram repor tOrdered By: Jose Antonio Reeves on 03-29-2025 Study report [facility] [place] [address] Echo, Limited Study 03/29/25 1258 MR#: [id number] Acct: [id number] Name: VISHAL GEORGE Rep #:[id number] : 1960 65 From: Jose Antonio Carlson Attending Dr: Austen Castro, [employer] SERVICER-C Sta tus: REG CLI Ordering Dr: Austen Castro NP [employer] CONTR[employer] SERVICER-C Date: 03/29/25 Location: [facility] Sex: F C Admitted: Reason For Study Reason For Study: CHF Procedure This was a limited 2D transthoracic echocardiogram. Myocardial strain analysis was performed in this exam to aid in the assessment of cardiac function. Exam performed in department. Left Ventricle Moderately dilated left ventricle. The global longitudinal strain = -11.7% (abnormal). There is mild to moderate global hypokinesis of the left ventricle. Right Ventricle Normal RV size. Normal systolic function. Atria Normal left atrium. Normal right atrium. Mitral Valve Normal mitral valve. Mild (1+) eccentric mitral valve insufficiency. Tricuspid Valve Normal tricuspid valve. Aortic Valve Trisinus/trileaflet aortic valve. Mild focal aortic valve calcification. Mild (1+) aortic valve insufficiency. Pulmonic Valve Normal pulmonic valve. Great Vessels Normal sized aortic root. The pulmonary artery is normal size. Inferior vena cava collapse with respiration. Pericardium/Pleural No pericardial effusion. MMode/2D Measurements & Calculations LVIDd: 6.6 cm IVSd: 1.1 cm LAdimension: 4.4 cm LVIDs: 5.4 cm LVPWd: 1.1 cm RVDd: 3.2 cm FS: 17.6 % LAV(MOD-sp4): 43.6 ml LVAd ap4: 43.3 cm2 SV(MOD-sp4): 61.6 ml LVLd ap4: 9.3 cm SI(MOD-sp4): 34.3 ml/m2 EDV(MOD-sp4): 166.2 ml EDV(sp4-el): 170.5 ml LVAs ap4: 32.0 cm2 LVLs ap4: 8.4 cm ESV(MOD-sp4): 104.6 ml ESV(sp4-el): 103.3 ml EF(MOD-sp4): 37.0 % EF(sp4-el): 39.4 % SV(sp4-el): 67.1 ml LA A4 area: 15.9 cm2 RAA4 area: 13.2 cm2 ECHO/Echo, Limited Study Interpretation Summary Moderately dilated left ventricle. There is mild to moderate global hypokinesis of the left ventricle. Compared to previous study, the left ventricular systolic function is the same.. Ordering Physician: Austen Castro Referring Physician: Austen Castro Performed By: Shahzad Jones RCS 03/29/25 1904 Date _ Jose Antonio Reeves MD CC: PHONG Castro; PHONG Griffin ~ Date Dictated: 03/29/25 1258 Date Transcribed: 03/29/251903 Compliance Investigator: Signed [facility] Work Phone: [phone] Absolute lymphocyte countOrd ered By: Jose Antonio Leandro on 03-12-2025 Lymphocytes Auto (Unsp spec) [#/Vol] 1.63 10*3/uL 0.83-4.[address] [facility] Absolute neutrophil countOrd ered By: Jose Antonio Leandro on 03-12-2025 Neutrophils (Bld) [#/Vol] 4.5 10*3/uL 2.0-7.[address] [facility] Anion gap in Serum or Plasma Ordered By: Jose Antonio Leandro on 03-12-2025 Anion gap [Moles/Vol] 12 mmol/L 5-15 [facility] Automated lymphocyte count a s percentage of total leukocytesOrdered By: Jose Antonio Leandro on 03-12-2025 Lymphocytes/100 WBC Auto (Unsp spec) 22.6 % 19-[address] [facility] BUN/creatinine ratioOrdered By: [facility] on 03-12-2025 Urea nitrogen/Creatinine [Mass ratio] 23.1 mg/mg High 10- [facility] Basic Metabolic Profile (BMP )on 03-12-2025 BUN/CRE 23.1 RATIO High - [facility] Comment on above: Performed By: #### L [id number], L503.7505, L500.2500, L501.9310, L100.0100 ####[facility] [address], [address] Calcium [Mass/Vol] 10.0 mg/dL Normal 7.6-11.0 [facility] Comment on above: Performed By: #### L [id number], L503.7505, L500.2500, L501.9310, L100.0100 ####[facility] [address], [address] Chloride [Moles/Vol] 100 mmol/L Normal 98-108 [facility] Comment on above: Performed By: #### L [id number], L503.7505, L500.2500, L501.9310, L100.0100 ####[facility] [address], [address] CO2 [Moles/Vol] 24.9 mmol/L Normal 21.0-32.[address] [facility] Comment on above: Performed By: #### L [id number], L503.7505, L500.2500, L501.9310, L100.0100 ####[facility] [address], [address] Creatinine [Mass/Vol] 0.78 mg/dL Normal 0.70-1.20 [facility] Comment on above: Performed By: #### L [id number], L503.7505, L500.2500, L501.9310, L100.0100 ####[facility] [address] [place], [address] GAP 12 Normal 5-[address] [facility] Comment on above: Performed By: #### L [id number], L503.7505, L500.2500, L501.9310, L100.0100 ####[facility] [address], [address] GFR/1.73 sq M.predicted among non-blacks MDRD (S/P/Bld) [Vol rate/Area] 86 mL/min/{1.73_m2} Normal >60 [facility] Comment on above: Result Comment: mL/m in/1.73m2 CKD-EPI Creatinine Equation (2020) Performed By: #### L 501.9520, L503.7505, L500.2500, L501.9310, L100.0100 ####[facility] [address] [place], [address] Glucose [Mass/Vol] 90 mg/dL Normal 70-99 [facility] Comment on above: Performed By: #### L 501.9520, L503.7505, L500.2500, L501.9310, L100.0100 ####[facility] [address], [address] Potassium [Moles/Vol] 4.2 mmol/L Normal 3.3-5.1 [facility] Comment on above: Performed By: #### L 501.9520, L503.7505, L500.2500, L501.9310, L100.0100 ####[facility] [address] [place], [address] Sodium [Moles/Vol] 137 mmol/L Normal 133-145 [facility] Comment on above: Performed By: #### L 501.9520, L503.7505, L500.2500, L501.9310, L100.0100 ####[facility] [address], [address] Urea nitrogen [Mass/Vol] 18 mg/dL Normal 4-[address] [facility] Comment on above: Performed By: #### L 501.9520, L503.7505, L500.2500, L501.9310, L100.0100 ####[facility] [address], [address] Basophil percentageOrdered B y: Jose Antonio Leandro on 03-12-2025 Basophils/100 WBC (Bld) 1.3 % High 0-1 [facility] CBC W/Diff, Automatedon 02-13 Absolute Lymph 1.63 X10 3/uL Normal 0.83-4.[address] [facility] Comment on above: Performed By: #### L [id number], L503.7505, L500.2500, L501.9310, L100.0100 ####[facility] [address] [place], [address] Absolute Neut 4.5 X10 3/uL Normal 2.0-7.[address] [facility] Comment on above: Performed By: #### L 501.9520, L503.7505, L500.2500, L501.9310, L100.0100 ####[facility] [address], [address] Basophils/100 WBC (Bld) 1.3 % High 0-1 [facility] Comment on above: Performed By: #### L [id number], L503.7505, L500.2500, L501.9310, L100.0100 ####[facility] [address], [address] Eosinophils/100 WBC (Bld) 3.8 % Normal 0-[address] [facility] Comment on above: Performed By: #### L 501.9520, L503.7505, L500.2500, L501.9310, L100.0100 ####[facility] [address], [address] Erythrocyte distribution width (RBC) [Ratio] 13.3 % Normal 11.6-14.[address] [facility] Comment on above: Performed By: #### L 501.9520, L503.7505, L500.2500, L501.9310, L100.0100 ####[facility] [address], [address] Hematocrit (Bld) [Volume fraction] 41.6 % Normal 37-[address] [facility] Comment on above: Performed By: #### L 501.9520, L503.7505, L500.2500, L501.9310, L100.0100 ####[facility] [address], [address] Hemoglobin (Bld) [Mass/Vol] 13.6 g/dL Normal 12.0-15.[address] [facility] Comment on above: Performed By: #### L 501.9520, L503.7505, L500.2500, L501.9310, L100.0100 ####[facility] [address] [place], [address] IG% 0.400 Normal 0.0-0.[address] [facility] Comment on above: Result Comment: IG% - Immature Granulocytes (promyelocytes, myelocytes and metamyelocytes) > 1% indicates that a LEFT SHIFT is Present. Performed By: #### L 501.9520, L503.7505, L500.2500, L501.9310, L100.0100 ####[facility] [address], [address] Lymphocytes/100 WBC (Bld) 22.6 % Normal 19-[address] [facility] Comment on above: Performed By: #### L 501.9520, L503.7505, L500.2500, L501.9310, L100.0100 ####[facility] [address], [address] MCH (RBC) [Entitic mass] 30.1 pg Normal 27.0-32.[address] [facility] Comment on above: Performed By: #### L 501.9520, L503.7505, L500.2500, L501.9310, L100.0100 ####[facility] [address] [place], [address] MCHC (RBC) [Mass/Vol] 32.7 g/dL Normal 32-36 [facility] Comment on above: Performed By: #### L 501.9520, L503.7505, L500.2500, L501.9310, L100.0100 ####[facility] [address] [place], [address] MCV (RBC) [Entitic vol] 92.0 fL Normal 81-99 [facility] Comment on above: Performed By: #### L [id number], L503.7505, L500.2500, L501.9310, L100.0100 ####[facility] [address], [address] Monocytes/100 WBC (Bld) 10.0 % Normal 0-10 [facility] Comment on above: Performed By: #### L 501.9520, L503.7505, L500.2500, L501.9310, L100.0100 ####[facility] [address], [address] Neutrophils/100 WBC (Bld) 61.9 % Normal 47-[address] [facility] Comment on above: Performed By: #### L 501.9520, L503.7505, L500.2500, L501.9310, L100.0100 ####[facility] [address], [address] Nucleated RBC (Bld) [#/Vol] 0 10*3/uL Normal 0-[address] [facility] Comment on above: Performed By: #### L 501.9520, L503.7505, L500.2500, L501.9310, L100.0100 ####[facility] [address] [place], [address] Platelet mean volume (Bld) [Entitic vol] 9.5 fL Normal 6.2-12.[address] [facility] Comment on above: Performed By: #### L 501.9520, L503.7505, L500.2500, L501.9310, L100.0100 ####[facility] [address] [place], [address] Platelets (Bld) [#/Vol] 424 10*3/uL Normal 150-[address] [facility] Comment on above: Performed By: #### L 501.9520, L503.7505, L500.2500, L501.9310, L100.0100 ####[facility] [address], [address] RBC (Bld) [#/Vol] 4.52 10*6/uL Normal 4.2-5.4 [facility] Comment on above: Performed By: #### L 501.9520, L503.7505, L500.2500, L501.9310, L100.0100 ####[facility] [address] [place] [place], [address] RDW SD 45.1 fl High 35.1-43.[address] [facility] Comment on above: Performed By: #### L 501.9520, L503.7505, L500.2500, L501.9310, L100.0100 ####[facility] [address] [place], [address] WBC (Bld) [#/Vol] 7.2 10*3/uL Normal 4.4-11.0 [facility] Comment on above: Performed By: #### L 501.9520, L503.7505, L500.2500, L501.9310, L100.0100 ####[facility] [address] [place], [address] Carbon dioxide, total [Moles /volume] in Central venous bloodOrdered By: Jose Antonio Leandro on 03-12-2025 CO2 [Moles/Vol] 24.9 mmol/L 21.0-32.[address] [facility] Chloride assayOrdered By: Cy ril Leandro on 03-12-2025 Chloride [Moles/Vol] 100 mmol/L 98-108 [facility] Eosinophil percentageOrdered By: Jose Antonio Leandro on 03-12-2025 Eosinophils/100 WBC (Bld) 3.8 % 0-[address] [facility] Erythrocyte distribution wid th ratioOrdered By: Bowlegs Leandro on 03-12-2025 Erythrocyte distribution width (RBC) [Ratio] 13.3 % 11.6-14.[address] [facility] Erythrocyte distribution wid th standard deviationOrdered By: Bowlegs Leandro on 03-12-2025 Erythrocyte distribution width (RBC) [Ratio] 45.1 fl High 35.1-43.[address] [facility] Glomerular filtration rate ( GFR) estimation/1.73 sq m using serum, plasma, or whole bOrdered By: Jose Antonio Reeves on 03-12-2025 GFR/1.73 sq M.predicted among non-blacks MDRD (S/P/Bld) [Vol rate/Area] 86 mL/min/{1.73_m2} >60 [facility] Comment on above: mL/min/1.73m2 CKD-EP I Creatinine Equation (2020) Hematocrit Auto (Bld) [Volum e fraction]Ordered By: Jose Antonio Reeves on 03-12-2025 Hematocrit (Bld) [Volume fraction] 41.6 % 37-[address] [facility] Hemoglobin measurementOrdere d By: Jose Antonio Reeves on 03-12-2025 Hemoglobin (Bld) [Mass/Vol] 13.6 g/dL 12.0-15.[address] [facility] Immature granulocytes/100 WB C Auto (Bld)Ordered By: Jose Antonio Reeves on 03-12-2025 Immature granulocytes/100 WBC (Bld) 0.400 % 0.0-0.[address] [facility] Comment on above: IG% - Immature Granu locytes (promyelocytes, myelocytes and metamyelocytes) > 1% indicates that a LEFT SHIFT is Present. L503.7505on 03-12-2025 Natriuretic peptide B (Bld) [Mass/Vol] 916 pg/mL High <=[address] [facility] Comment on above: Result Comment: Hear t Failure Unlikely: < 300 pg/mL Heart Failure Likely < 50 Years: > 450 pg/mL 50-75 Years: > 900 pg/mL >75 Years: > 1800 pg/mL Performed By: #### L 501.9520, L503.7505, L500.2500, L501.9310, L100.0100 ####[facility] [address] [place], [place], [id number] MCV (mean corpuscular volume ) determinationOrdered By: Jose Antonio Reeves on 03-12-2025 MCV (RBC) [Entitic vol] 92.0 fL 81-99 [facility] Mean corpuscular hemoglobin (MCH) determinationOrdered By: Bowlegs Leandro on 03-12-2025 MCH (RBC) [Entitic mass] 30.1 pg 27.0-32.[address] [facility] Mean corpuscular hemoglobin concentration (MCHC) determinationOrdered By: Jose Antonio Leandro on 03-12-2025 MCHC (RBC) [Mass/Vol] 32.7 g/dL 32-36 [facility] Mean platelet volume determi nationOrdered By: Bowlegs Leandro on 03-12-2025 Platelet mean volume (Bld) [Entitic vol] 9.5 fL 6.2-12.[address] [facility] Monocyte percentageOrdered B y: Bowlegs Leandro on 03-12-2025 Monocytes/100 WBC (Bld) 10.0 % 0-10 [facility] Natriuretic peptide.B prohor clive N-Terminal [Mass/volume] in Serum or PlasmaOrdered By: Bowlegs Leandro on 03-12-2025 Natriuretic peptide.B prohormone N-Terminal [Mass/Vol] 916 pg/mL High <[address] [facility] Comment on above: Heart Failure Unlike ly: < 300 pg/mLHeart Failure Likely< 50 Years: > 450 pg/mL50-75 Years: > 900 pg/mL>75 Years: > 1800 pg/mL Neutrophil percentageOrdered By: Jose Antonio Leandro on 03-12-2025 Neutrophils/100 WBC (Bld) 61.9 % 47-[address] [facility] Nucleated red blood cell per centageOrdered By: Jose Antonio Leandro on 03-12-2025 Nucleated RBC/100 WBC (Bld) [Ratio] 0 % 0-[address] [facility] Platelet countOrdered By: Cy ril Leandro on 03-12-2025 Platelets (Bld) [#/Vol] 424 10*3/uL 150-[address] [facility] Potassium measurement (mass/ volume)Ordered By: Bowlegs Leandro on 03-12-2025 Potassium (Unsp spec) [Mass/Vol] 4.2 mmol/L 3.3-5.[address] [facility] RBC Auto (Bld) [#/Vol]Ordere d By: Bowlegs Leandro on 03-12-2025 RBC (Bld) [#/Vol] 4.52 10*6/uL 4.2-5.4 [facility] Serum creatinine measurement (mass/volume)Ordered By: Jose Antonio Leandro on 03-12-2025 Creatinine [Mass/Vol] 0.78 mg/dL 0.70-1.20 [facility] Serum glucose measurement (m ass/volume)Ordered By: Jose Antonio Leandro on 03-12-2025 Glucose [Mass/Vol] 90 mg/dL 70-99 [facility] Serum or plasma calcium virgie urement (mass/volume)Ordered By: Bowlegs Leandro on 03-12-2025 Calcium [Mass/Vol] 10.0 mg/dL 7.6-11.0 [facility] Serum or plasma urea nitroge n measurement (mass/volume)Ordered By: Jose Antonio Leandro on 03-12-2025 Urea nitrogen [Mass/Vol] 18 mg/dL 4-[address] [facility] Sodium levelOrdered By: Jenna booth Leandro on 03-12-2025 Sodium [Moles/Vol] 137 mmol/L 133-145 [facility] T4 Total, Thyroxinon 025 T4 [Mass/Vol] 6.6 ug/dL Normal 4.8-13.[address] [facility] Comment on above: Performed By: #### L 501.9520, L503.7505, L500.2500, L501.9310, L100.0100 ####[facility] [address] [place], [place], [id number] TSH DL <= 0.005 mIU/L QnOrde red By: Jose Antonio Leandro on 03-12-2025 TSH Qn 1.950 uIU/mL 0.300-4.[address] [facility] Thyroid Stim Hormone (TSH)on 03-12-2025 TSH 1.950 uIU/mL Normal 0.300-4.[address] [facility] Comment on above: Performed By: #### L 501.9520, L503.7505, L500.2500, L501.9310, L100.0100 ####[facility] [address] [place], [place], [address] ThyroxineOrdered By: Jose Antonio guido on 03-12-2025 T4 [Mass/Vol] 6.6 ug/dL 4.8-13.[address] [facility] White blood cell (WBC) count Ordered By: Jose Antonio Reeves on 03-12-2025 WBC (Bld) [#/Vol] 7.2 10*3/uL 4.4-11.0 [facility] Cardiology Visit Reporton Cardiology Visit Report [facility] [address] [place] [address] OFFICE VISIT Date of Service: 01/06/25 MR#: [id number] Acct: [id number] Name: VISHAL GEORGE Rep #: [id number] : 1960 Provider: PHONG rome Age/Sex: 64/F Location: [facility] Status: Signed with Addenda ADDENDUM by PHONG Castro on 01/06/25 at 1636 Assessment and Plan Assessment and Plan (1) Ischemic cardiomyopathy: Status: Acute Plan: Ischemic cardiomyopathy: Echocardiogram 10/08/2023-EF: 45% Twelve-lead EC04/24/2023-normal sinus rhythm at 80 bpm and QRS 100 [place] [employer] Functional Class: 1 ACC/AHA stage: C Guideline Directed Medical Therapy: Carvedilol 25 mg p.o. twice daily Jardiance 10 mg p.o. daily Lasix 20 mg p.o. daily Entresto 97-103 mg p.o. twice daily Spironolactone 25 mg p.o. twice daily She will increase Coreg to 25mg PO BID and repeat echocardiogram in 3 months. She appears euvolemic on exam. Orders: Orders Echo, Limited Study 3 Months E78.2 - Mixed hyperlipidemia, I10 - Essential (primary) hypertension, I25.5 - Ischemic cardiomyopathy, Z95.5 - Presence of coronary angioplasty implant and graft Medications: Refilled carvedilol 25 mg PO BID 180 TABLETS 3RF clopidogrel 75 mg PO QHS 90 tabs 3RF empagliflozin (Jardiance) 10 mg PO DAILY 90 TABLETS 3RF furosemide 20 mg PO DAILY 90 TABLETS 3RF sacubitril-valsartan 97-103 mg (Entresto) 1 TAB PO BID 180 tabs 3RF spironolactone 25 mg PO BID 60 tabs 0RF Plan Details Additional Comments: Patient will follow up in 6 months, or sooner if needed. Thank you for allowing me to participate in the care of your patient. Please don't hesitate to call if any issues arise. This note was generated using a voice recognition system and there may be incorrect words, spelling, or punctuation that were not noted when reviewing the office note prior to saving. Portions of this documentation were copied and pasted from previous office visit notes to provide a cohesive continuity of the history. The note has been reviewed, edited, and updated, as necessary. 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 Patient presented to [facility] for severe nausea and vomiting. Patient was evaluated by cardiology due to acute on chronic diastolic and systolic congestive heart failure. Her ejection fraction at that time was reduced to 15%. She underwent a cardiac catheterization on 02/25/2023 which showed 80% in-stent restenosis. She she did undergo a PCI at that time. While in the hospital patient had a 34 beat run of V. tach/wide-complex tachycardia. She was transferred to [facility] for ICD evaluation. EP considered the episode of V tach nonsustained and potentially reperfusion arrhythmias that occurred the night of the PCI to the RCA. He also did not recommend a LifeVest due to the fact that she had only had 1 episode of ventricular tachycardia in hours after reperfusion. She has a history of coronary artery disease, ischemic cardiomyopathy, hypertension, hyperlipidemia, and a history of EtOH abuse. Her echocardiogram from 09/18/2023 demonstrated an improved ejection fraction of 45%. She acknowledges nonexertional, occasional stabbing discomfort in her left axillary. She denies this type of pain prior to stening. She denies palpitations. She denies bilateral lower extremity edema. She denies claudication. She denies shortness of breath with activity, shortness of breath at rest, orthopnea, or PND. She denies chronic cough. She denies significant, sudden weight gain. She continues lightheadedness. She denies dizziness, near-syncope, or syncope. She denies blood in urine, blood in stool, or epistaxis. He denies fever with chills. She denies myalgia. She denies fatigue. Her exercise level has remained stable. Intake Vital Signs 06/23/24 08:25 01/06/25 15:56 Height 5 ft 2 in 5 ft 2 in Weight: 179 lb BMI 32.7 BP 130/78 H Blood Pressure Location Lt brachial Position Sitting Respiration 18 Pulse 69 Pulse Source NIBP Intake Visit Reasons: 6 M FU Front Desk Receptionist Required: No Is patient in pain?: No Allergies nicotine Allergy (Unknown, Verified 01/06/25 15:59) Itching Medications ???Medication ???Instructions ???Recorded ???Confirmed ???Type pantoprazole 40 mg tablet,delayed 40 mg PO DAILY #30 tabs 07/12/22 01/06/25 Rx release aspirin 81 mg tablet,delayed 81 mg PO DAILY 03/22/23 01/06/25 H istory release (Adult Aspirin Regimen) mu (more content not included)... Normal [facility] 12-21-2024 [facility] Telephone ([email or web address]) VISHAL GEORGE ([id number]) 1960 F Date Time Provider Department 12/21/24 ARACELIS MCCORMICK OBGYWGuadalupe During your visit today, we recorded the following information about you: Dinah Singh RN 12/21/2024 2:31 PM Signed Patient called in requested 11/19/24 bone density result. Advised mychart message was sent by provider, but she does not use her mychart. Read her DM's message to her. All questions answered. Dinah Singh RN Allergies As of Date: 12/21/2024 Noted Allergy Reaction ADHESIVE TAPE (ROSINS) 09/10/2012 2 - Rash Date Reviewed: 09/21/2024 Reviewed by: Becky Pantoja MA - Fully Assessed Reason for Visit: Results [95] Prescriptions as of 12/21/2024 - STIOLTO RESPIMAT 2.5-2.5 mcg/actuation Inhale 2.5 mcg as instructed once daily. - furosemide (LASIX) 20 mg tablet Take 1 tablet by mouth as needed. - celecoxib (CELEBREX) 200 mg capsule Take 200 mg by mouth once daily. - atorvastatin (LIPITOR) 80 mg tablet Take 0.5 tablets by mouth daily at bedtime. - ENTRESTO 49-51 mg tablet Take 49-51 tablets by mouth twice daily. - carvedilol (COREG) 12.5 mg tablet Take 1 tablet by mouth twice daily with meals. - aspirin 81 mg chewable tablet Chew 1 tablet by mouth once daily. - empagliflozin (JARDIANCE) 10 mg tablet Take 1 tablet by mouth once daily. - buPROPion SR (WELLBUTRIN SR) 150 mg 12 hr tablet Take 1 tablet by mouth twice daily. - clopidogrel (PLAVIX) 75 mg tablet Take 1 tablet by mouth once daily. - spironolactone (ALDACTONE) 25 mg tablet Take 1 tablet by mouth twice daily. - nicotine (NICODERM) 7 mg/24 hr Apply 1 Patch as directed every 24 hours for 28 days. - sucralfate (CARAFATE) 1 gram tablet Take one tablet by mouth before meals and at bedtime as needed - ZINC ORAL Take by mouth once daily. - ascorbic acid (VITAMIN C ORAL) Take 500 mg by mouth once daily. - sertraline (ZOLOFT) 25 mg tablet Take 25 mg by mouth once daily. For 30 days - busPIRone (BUSPAR) 10 mg tablet Take 10 mg by mouth two times a day. - cholecalciferol (VITAMIN D3) 5,000 unit tab Take 1,000 Units by mouth once daily. - cyanocobalamin (VITAMIN B-12) 1,000 mcg tab Take 1,000 mcg by mouth once daily. - MULTIVIT-MINERALS/FE RROUS FUM (MULTI VITAMIN ORAL) Take by mouth once daily. - pantoprazole DR (PROTONIX) 40 mg tablet Take 40 mg by mouth once daily. Problem List As Of Date 12/21/2024 Noted Resolved Coronary artery disease involving [place]*09/10/2012 Unspecified essential hypertension [I10] 09/10/2012 08/29/2016 PMDD (premenstrual dysphoric disorder) [F32.81] 09/10/2012 07/06/2015 Perimenopausal [N95.1] 09/10/2012 07/06/2015 Screening for intestinal cancer [Z12.10] 10/02/2012 Gastroparesis [K31.84] 08/29/2016 Hyperlipidemia [E78.5] 08/29/2016 Hypertension [I10] 08/29/2016 Non morbid obesity [E66.9] 08/29/2016 Nicotine use disorder, F17.2 [F17.200] 02/26/2023 Acute on chronic combined systolic and diastoli*02/26/2023 Tobacco abuse [Z72.0] 02/26/2023 NSVT (nonsustained ventricular tachycardia) (HC*02/26/2023 Non-ischemic cardiomyopathy (HCC) [I42.8] 02/27/2023 Chronic obstructive pulmonary disease (HCC) [J4*09/21/2022 History of appendectomy [Z90.49] 02/27/2023 History of cholecystectomy [Z90.49] 02/27/2023 History of percutaneous coronary intervention [*02/27/2023 Chronic systolic heart failure (HCC) [I50.22] 02/28/2023 Ischemic cardiomyopathy [I25.5] 02/28/2023 ETOH abuse [F10.10] 02/28/2023 Encounter Status:Closed by DINAH SINGH on 12/21/24 Normal [facility] Albumin to globulin ratioOrd ered By: Ricki Griffin on 12-07-2024 Albumin/Globulin [Mass ratio] 1.1 {ratio} 0.9-2.[address] [facility] Bilirubin, totalOrdered By: Ricki Griffin on 12-07-2024 Bilirubin [Mass/Vol] 0.20 mg/dL 0.20-1.00 [facility] Comment on above: For patients on eltr ombopag therapy, use of Dimension Fabens TBIL is not recommended. Blood urea nitrogen (BUN)/cr eatinine ratioOrdered By: Ricki Griffin on 12-07-2024 Urea nitrogen/Creatinine [Mass ratio] 25.3 mg/mg High 10-[address] [facility] Carbon dioxide measurementOr dered By: Ricki Griffin on 12-07-2024 CO2 [Moles/Vol] 27.0 mmol/L 21.0-32.[address] [facility] Chloride measurementOrdered By: Ricki Griffin on 12-07-2024 Chloride [Moles/Vol] 105 mmol/L 98-107 [facility] Comprehensive Metabolic Prof ilon 12-07-2024 Albumin [Mass/Vol] 3.6 g/dL Normal 3.2-5.0 [facility] Comment on above: Performed By: #### L 500.4100, L501.9985, L500.4050, L502.0250, L506.1000 #### [facility] [address], [address] Albumin/Globulin [Mass ratio] 1.1 {ratio} Normal 0.9-2.[address] [facility] Comment on above: Performed By: #### L 500.4100, L501.9985, L500.4050, L502.0250, L506.1000 #### [facility] [address] [place], [address] ALK P 72 U/L Normal 45-[address] [facility] Comment on above: Performed By: #### L 500.4100, L501.9985, L500.4050, L502.0250, L506.1000 #### [facility] [address] [place], [address] ALT [Catalytic activity/Vol] 23 U/L Normal 13-[address] [facility] Comment on above: Performed By: #### L 500.4100, L501.9985, L500.4050, L502.0250, L506.1000 #### [facility] [address] [place], [address] AST [Catalytic activity/Vol] 17 U/L Normal 15-[address] [facility] Comment on above: Performed By: #### L 500.4100, L501.9985, L500.4050, L502.0250, L506.1000 #### [facility] [address], [address] Bilirubin [Mass/Vol] 0.20 mg/dL Normal 0.20-1.00 [facility] Comment on above: Result Comment: For patients on eltrombopag therapy, use of Dimension Fabens TBIL is not recommended. Performed By: #### L 500.4100, L501.9985, L500.4050, L502.0250, L506.1000 #### [facility] [address], [address] BUN/CRE 25.3 RATIO High 10-[address] [facility] Comment on above: Performed By: #### L 500.4100, L501.9985, L500.4050, L502.0250, L506.1000 #### [facility] [address] [place], [address] CA,Total 9.2 mg/dL Normal 8.5-10.[address] [facility] Comment on above: Performed By: #### L 500.4100, L501.9985, L500.4050, L502.0250, L506.1000 #### [facility] [address], [address] Chloride [Moles/Vol] 105 mmol/L Normal 98-107 [facility] Comment on above: Performed By: #### L 500.4100, L501.9985, L500.4050, L502.0250, L506.1000 #### [facility] [address] [place], [address] CO2 [Moles/Vol] 27.0 mmol/L Normal 21.0-32.[address] [facility] Comment on above: Performed By: #### L 500.4100, L501.9985, L500.4050, L502.0250, L506.1000 #### [facility] [address] [place], [address] Creatinine [Mass/Vol] 0.71 mg/dL Normal 0.55-1.02 [facility] Comment on above: Result Comment: The validity of the calculated GFR GFRAA in patients over 70 years has not been determined. Clinical correlation is essential. Performed By: #### L 500.4100, L501.9985, L500.4050, L502.0250, L506.1000 #### [facility] [address], [address] EST GFR - AA 107 mL/min Normal >[address] [facility] Comment on above: Result Comment: Afri can Kazakh GFR Calc Performed By: #### L 500.4100, L501.9985, L500.4050, L502.0250, L506.1000 #### [facility] [address] [place], [address] GAP 7 Normal 5-[address] [facility] Comment on above: Performed By: #### L 500.4100, L501.9985, L500.4050, L502.0250, L506.1000 #### [facility] [address], [address] GFR/1.73 sq M.predicted among non-blacks MDRD (S/P/Bld) [Vol rate/Area] 88 mL/min/{1.73_m2} Normal >60 [facility] Comment on above: Result Comment: Non- GFR Calc Performed By: #### L 500.4100, L501.9985, L500.4050, L502.0250, L506.1000 #### [facility] [address] [place], [address] Globulin (S) [Mass/Vol] 3.3 g/dL Normal 2.2-4.2 [facility] Comment on above: Performed By: #### L 500.4100, L501.9985, L500.4050, L502.0250, L506.1000 #### [facility] [address] [place], [address] Glucose [Mass/Vol] 105 mg/dL Normal 74-106 [facility] Comment on above: Result Comment: Fast ing Glucose result from 100 to 125 mg/dL suggests IMPAIRED HOMEOSTASIS per A.D.A. criteria. Performed By: #### L 500.4100, L501.9985, L500.4050, L502.0250, L506.1000 #### [facility] [address] [place], [address] Potassium [Moles/Vol] 4.2 mmol/L Normal 3.5-5.1 [facility] Comment on above: Performed By: #### L 500.4100, L501.9985, L500.4050, L502.0250, L506.1000 #### [facility] [address] [place], [address] Sodium [Moles/Vol] 139 mmol/L Normal 136-145 [facility] Comment on above: Performed By: #### L 500.4100, L501.9985, L500.4050, L502.0250, L506.1000 #### [facility] [address] [place], [address] T PROT 6.9 g/dL Normal 6.4-8.[address] [facility] Comment on above: Performed By: #### L 500.4100, L501.9985, L500.4050, L502.0250, L506.1000 #### [facility] [address] [place], [address] Urea nitrogen [Mass/Vol] 18 mg/dL Normal 7-[address] [facility] Comment on above: Performed By: #### L 500.4100, L501.9985, L500.4050, L502.0250, L506.1000 #### [facility] [address] [place], [address] Glomerular filtration rate ( GFR) estimationOrdered By: Ricki Griffin on 12-07-2024 GFR/1.73 sq M.predicted among non-blacks MDRD (S/P/Bld) [Vol rate/Area] 88 mL/min/{1.73_m2} >60 [facility] Comment on above: Non- GFR Calc Glucose measurementOrdered B y: Ricki Griffin on 12-07-2024 Glucose [Mass/Vol] 105 mg/dL 74-106 [facility] Comment on above: Fasting Glucose resu lt from 100 to 125 mg/dL suggests IMPAIRED HOMEOSTASIS per A.D.A. criteria. Hemoglobin A1con 12-07-2024 HbA1c (Bld) [Mass fraction] 5.4 % Normal 3.8-5.[address] [facility] Comment on above: Result Comment: Norm al < 5.7 % Prediabetic 5.7 - 6.4 % Diabetic >or= 6.5 % Please note range changes. Performed By: #### L 500.4100, L501.9985, L500.4050, L502.0250, L506.1000 #### [facility] [address] [place], [address] Hemoglobin A1c percentageOrd ered By: Ricki Griffin on 12-07-2024 HbA1c (Bld) [Mass fraction] 5.4 % 3.8-5.[address] [facility] Comment on above: Normal < 5.7 % Predi abetic 5.7 - 6.4 % Diabetic >or= 6.5 % Please note range changes. High density lipoprotein (HD L) measurementOrdered By: Ricki Griffin on 12-07-2024 Cholesterol in HDL [Mass/Vol] 50 mg/dL >[address] [facility] Comment on above: The drugs N-Acetylcy steine and Metamizole may falsely depress this assay. Reference Range HDL <40 mg/dL Low HDL Cholesterol HDL >or= 60 mg/dL High HDL Cholesterol Laboratory - Chemistry and C hemistry - challengeOrdered By: Ricki Griffin on 12-07-2024 AST [Catalytic activity/Vol] 17 U/L 15-37 [facility] [facility] Lipid Profileon 12-07-2024 Cholesterol [Mass/Vol] 172 mg/dL Normal 200 [facility] Comment on above: Result Comment: <200 mg/dL Desirable 200-240 mg/dL Borderline >240 mg/dL High Risk Performed By: #### L 500.4100, L501.9985, L500.4050, L502.0250, L506.1000 #### [facility] [address] [place], [address] Cholesterol in HDL [Mass/Vol] 50 mg/dL Normal [facility] Comment on above: Result Comment: The drugs N-Acetylcysteine and Metamizole may falsely depress this assay. Reference Range HDL <40 mg/dL Low HDL Cholesterol HDL >or= 60 mg/dL High HDL Cholesterol Performed By: #### L 500.4100, L501.9985, L500.4050, L502.0250, L506.1000 #### [facility] [address] [place], [address] Cholesterol in LDL [Mass/Vol] 105 mg/dL Normal 0-[address] [facility] Comment on above: Performed By: #### L 500.4100, L501.9985, L500.4050, L502.0250, L506.1000 #### [facility] [address] [place], [address] Cholesterol in VLDL [Mass/Vol] 17 mg/dL Normal 5-[address] [facility] Comment on above: Performed By: #### L 500.4100, L501.9985, L500.4050, L502.0250, L506.1000 #### [facility] [address] [place], [address] Triglyceride [Mass/Vol] 83 mg/dL Normal [facility] Comment on above: Result Comment: The drugs N-Acetylcysteine and Metamizole may falsely depress this assay. Serum Triglycerides Reference Interval Normal <150 mg/dL Borderline high 150 - 199 mg/dL High 200 - 499 mg/dL Very High > or = 500 mg/dL Performed By: #### L 500.4100, L501.9985, L500.4050, L502.0250, L506.1000 #### [facility] [address] [place], [address] Low density lipoprotein (LDL ) cholesterol measurementOrdered By: Ricki Griffin on 12-07-2024 Cholesterol in LDL [Mass/Vol] 105 mg/dL 0-[address] [facility] Microalb:Creat Ratio,Random URon 12-07-2024 Creatinine [Mass/Vol] 58.70 mg/dL Normal NO RAN GE EST. [facility] Comment on above: Performed By: #### L 500.4100, L501.9985, L500.4050, L502.0250, L506.1000 #### [facility] [address] [place] [place], [address] MALB:CRE 9.7 mg/g CRE Normal <30 mg/g CRE [facility] Comment on above: Performed By: #### L 500.4100, L501.9985, L500.4050, L502.0250, L506.1000 #### [facility] [address] [place], [address] MICROALBUMIN,UR 5.7 mg/L Normal NO RANGE EST. [facility] Comment on above: Performed By: #### L 500.4100, L501.9985, L500.4050, L502.0250, L506.1000 #### [facility] [address] [place], [address] Potassium measurementOrdered By: Ricki Griffin on 12-07-2024 Potassium [Moles/Vol] 4.2 mmol/L 3.5-5.1 [facility] Serum anion gap measurementO rdered By: Ricki Griffin on 12-07-2024 Anion gap [Moles/Vol] 7 mmol/L 5-15 [facility] Serum globulin measurementOr dered By: Ricki Griffin on 12-07-2024 Globulin (S) [Mass/Vol] 3.3 g/dL 2.2-4.2 [facility] Serum or plasma alanine herrera otransferase (ALT) measurementOrdered By: Ricki Griffin on 12-07-2024 ALT [Catalytic activity/Vol] 23 U/L 13-[address] [facility] Serum or plasma albumin virgie urement (mass/volume)Ordered By: Ricki Griffin on 12-07-2024 Albumin [Mass/Vol] 3.6 g/dL 3.2-5.0 [facility] Serum or plasma alkaline sherri sphatase measurementOrdered By: Ricki Griffin on 12-07-2024 ALP [Catalytic activity/Vol] 72 U/L 45-[address] [facility] Serum or plasma calcium virgie urement (mass/volume)Ordered By: Ricki Griffin on 12-07-2024 Calcium [Mass/Vol] 9.2 mg/dL 8.5-10.1 [facility] Serum or plasma cholesterol measurement (mass/volume)Ordered By: Ricki Griffin on 12-07-2024 Cholesterol [Mass/Vol] 172 mg/dL <200 [facility] Comment on above: <200 mg/dL Desirable 200-240 mg/dL Borderline >240 mg/dL High Risk Serum or plasma creatinine m easurement (mass/volume)Ordered By: Ricki Griffin on 12-07-2024 Creatinine [Mass/Vol] 0.71 mg/dL 0.55-1.02 [facility] Comment on above: The validity of the calculated GFR & GFRAA in patients over 70 years has not been determined. Clinical correlation is essential. Serum or plasma urea nitroge n measurement (mass/volume)Ordered By: Ricki Griffin on 12-07-2024 Urea nitrogen [Mass/Vol] 18 mg/dL 7-[address] [facility] Sodium levelOrdered By: Froylan Griffin on 12-07-2024 Sodium [Moles/Vol] 139 mmol/L 136-145 [facility] Total proteinOrdered By: Godfrey Griffin on 12-07-2024 Protein [Mass/Vol] 6.9 g/dL 6.4-8.2 [facility] Triglycerides measurementOrd ered By: Ricki Griffin on 12-07-2024 Triglyceride [Mass/Vol] 83 mg/dL <199 [facility] Comment on above: The drugs N-Acetylcy steine and Metamizole may falsely depress this assay.Serum Triglycerides Reference Interval Normal <150 mg/dL Borderline high 150 - 199 mg/dL High 200 - 499 mg/dL Very High > or = 500 mg/dL Urine creatinine measurement (mass/volume)Ordered By: Ricki Griffin on 12-07-2024 Creatinine (U) [Mass/Vol] 58.70 mg/dL NO RANGE EST. [facility] Very low density lipoprotein (VLDL) cholesterol measurementOrdered By: Ricki Griffin on 12-07-2024 Very low density lipoprotein (VLDL) cholesterol measurement 17 mg/dL 5-[address] [facility] Vitamin D,25 Hydroxyon 12-07 Vitamin D 25-OH 61.9 ng/mL Normal [facility] Comment on above: Result Comment: Stephanie min D 25(OH) Status Range Deficiency <20 ng/mL (50nmol/L) Insufficiency 20 - 30 ng/mL (50 - 75 nmol/L) Sufficiency 30 - 100 ng/mL (75 - 250 nmol/L) Toxicity >100 ng/mL (>250 nmol/L) Performed By: #### L 500.4100, L501.9985, L500.4050, L502.0250, L506.1000 #### [facility] [address] [place], [address] BD DXA - AXIAL SKELETONon BD DXA - AXIAL SKELETON * * *Final Repor t* * * DATE OF EXAM: Nov 19 2024 3:47PM [facility] 0804 - DXA - AXIAL SKELETON / PROCEDURE REASON: multiple diagnoses * * * * Physician Interpretation * * * * EXAMINATION: DXA BONE DENSITOMETRY BD DXA - AXIAL SKELETON, BD DXA TRABECLR BONE SCORE (TBS) PATIENT DEMOGRAPHICS: Age: 64 years, Gender: Female SCANNER INFORMATION: DXA Model: [employer] - [employer] C 04351 Date Scanned: 11/19/2024 3:47 PM CLINICAL HISTORY: DIAGNOSTIC Encounter for screening for osteoporosis Asymptomatic postmenopausal status . RISK FACTORS FOR OSTEOPOROSIS AND ASSOCIATED FRACTURES REPORTED BY THIS PATIENT: Please refer to Bone Health Questionnaire in the EMR CURRENT THERAPY: Please refer to Bone Health Questionnaire in the EMR RESULTS: Lumbar spine (L1, L2, L3, L4): 1.048 g/cm2, T-score 0.3, Z-score 1.8 Left Femoral Neck: 0.681 g/cm2, T-score -1.5, Z-score -0.1 Left Total Hip: 0.891 g/cm2, T-score -0.4, Z-score 0.7 No comparison data - the patient has not had a previous bone density in the [facility] or the previous bone density was performed on a different DXA machine (new, updated model or different location) within the [facility]. VERTEBRAL FRACTURE ASSESSMENT Not performed. TRABECULAR BONE ASSESSMENT TBS score: 1.221 Bone micro-architecture: Partially degraded (1.231 - 1.310) IMPRESSION: THE LOWEST T-SCORE IS -1.5 IN THE LEFT HIP 1) DIAGNOSIS (based on BMD alone): OSTEOPENIA Caution: Medical conditions other than osteoporosis may cause low bone density, such as osteomalacia or renal osteodystrophy. Clinical correlation is necessary. 2) FRACTURE RISK (Based on TBS adjusted FRAX): 10-year absolute fracture risk: - major osteoporotic fracture = 11 % - hip fracture = 2.3 % - A diagnosis of Osteoporosis, a 10 year probability of hip fracture greater than or equal to 3% or a 10 year probability of any major osteoporosis-related fracture greater than or equal to 20% should be considered for treatment. - DXA scanner generated FRAX calculations may slightly differ from online FRAX calculations due to differences in software versions. - All recommendations and calculations are to be considered as guidelines and should not replace sound clinical judgement - Caution: Fracture risk may be increased independent of BMD in patients with corticosteroid use, age greater than 65 years, or a history of prior fragility fracture. RECOMMENDATIONS: Follow-up in 2 years or as clinically indicated. Patients that are taking corticosteroids, are transplant recipients or have hyperparathyroidism should have annual follow-up. Follow-up scans should always be done on the same machine for accurate comparison. FOR MORE INFORMATION ABOUT DIAGNOSIS AND TREATMENT: [facility] for Osteoporosis and Metabolic Bone Disease:? www.ccf.org/arthpiotr s/osteo National Osteoporosis Foundation:? www.nof.org International Society of Clinical Densitometry www.iscd.org Compliance Investigator: HERNANDO Transcribe Date/Time: Nov 23 2024 6:04A Dictated by : MIRIAM KUMARI MD This examination was interpreted and the report reviewed and electronically signed by: MIRIAM KUMARI MD on Nov 23 2024 6:06AM EST [id number] CN -1.5 Normal [facility] BD DXA TRABECLR BONE SCORE ( TBS)on 11-19-2024 BD DXA TRABECLR BONE SCORE (TBS) * * *Final Report* * * DATE OF EXAM: Nov 19 2024 3:47PM [facility] 0801 - BD DXA TRABECLR BONE SCORE (TBS) / PROCEDURE REASON: multiple diagnoses * * * * Physician Interpretation * * * * EXAMINATION: DXA BONE DENSITOMETRY BD DXA - AXIAL SKELETON, BD DXA TRABECLR BONE SCORE (TBS) PATIENT DEMOGRAPHICS: Age: 64 years, Gender: Female SCANNER INFORMATION: DXA Model: [employer] - [employer] C 39095 Date Scanned: 11/19/2024 3:47 PM CLINICAL HISTORY: DIAGNOSTIC Encounter for screening for osteoporosis Asymptomatic postmenopausal status . RISK FACTORS FOR OSTEOPOROSIS AND ASSOCIATED FRACTURES REPORTED BY THIS PATIENT: Please refer to Bone Health Questionnaire in the EMR CURRENT THERAPY: Please refer to Bone Health Questionnaire in the EMR RESULTS: Lumbar spine (L1, L2, L3, L4): 1.048 g/cm2, T-score 0.3, Z-score 1.8 Left Femoral Neck: 0.681 g/cm2, T-score -1.5, Z-score -0.1 Left Total Hip: 0.891 g/cm2, T-score -0.4, Z-score 0.7 No comparison data - the patient has not had a previous bone density in the [facility] or the previous bone density was performed on a different DXA machine (new, updated model or different location) within the [facility]. VERTEBRAL FRACTURE ASSESSMENT Not performed. TRABECULAR BONE ASSESSMENT TBS score: 1.221 Bone micro-architecture: Partially degraded (1.231 - 1.310) IMPRESSION: THE LOWEST T-SCORE IS -1.5 IN THE LEFT HIP 1) DIAGNOSIS (based on BMD alone): OSTEOPENIA Caution: Medical conditions other than osteoporosis may cause low bone density, such as osteomalacia or renal osteodystrophy. Clinical correlation is necessary. 2) FRACTURE RISK (Based on TBS adjusted FRAX): 10-year absolute fracture risk: - major osteoporotic fracture = 11 % - hip fracture = 2.3 % - A diagnosis of Osteoporosis, a 10 year probability of hip fracture greater than or equal to 3% or a 10 year probability of any major osteoporosis-related fracture greater than or equal to 20% should be considered for treatment. - DXA scanner generated FRAX calculations may slightly differ from online FRAX calculations due to differences in software versions. - All recommendations and calculations are to be considered as guidelines and should not replace sound clinical judgement - Caution: Fracture risk may be increased independent of BMD in patients with corticosteroid use, age greater than 65 years, or a history of prior fragility fracture. RECOMMENDATIONS: Follow-up in 2 years or as clinically indicated. Patients that are taking corticosteroids, are transplant recipients or have hyperparathyroidism should have annual follow-up. Follow-up scans should always be done on the same machine for accurate comparison. FOR MORE INFORMATION ABOUT DIAGNOSIS AND TREATMENT: [facility] for Osteoporosis and Metabolic Bone Disease:? www.ccf.org/liban s/osteo National Osteoporosis Foundation:? www.nof.org International Society of Clinical Densitometry www.iscd.org Compliance Investigator: HERNANDO Transcribe Date/Time: Nov 23 2024 6:04A Dictated by : MIRIAM KUMARI MD This examination was interpreted and the report reviewed and electronically signed by: MIRIAM KUMARI MD on Nov 23 2024 6:06AM EST [id number] CN -1.5 Normal [facility] CNOVon 09-21-2024 CNOV Office Visit (OBGYWM) VISHAL GEORGE ([id number]) 1960 F Date Time Provider Department 09/21/24 3:30 PM ARACELIS MCCORMICK OBGYWM During your visit today, we recorded the following information about you: Blood pressure Weight Height 140/78 78.5 kg 1.562 m Aracelis Mccormick MD 09/21/2024 3:54 PM 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 Trevino is a 64 year old who presents for an annual gynecologic exam without complaints. Postmenopausal: Yes HRT use: No. Last Pap: 05/23/2021 normal HPV: 05/22/2021 negative History of abnormal pap: yes but f/u neg - no surgery Last mammogram: 2023 normal History of abnormal mammogram: No Sexually active: No History of STDS: None Patient concerns for STD exposure: No. 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 History Comments: Sexual Activity: Yes; Male Contraception: [...] PFRMD 09/13/2016 Colonoscopy (MAC) EGD DIAGNOSTIC 08/09/2022 ESOPHAGOGASTRODUODEN OSCOPY TRANSORAL DIAGNOSTIC 09/13/2016 EGD (MAC) INSERT INTRACORONARY STENT 2006 PCI/stent to RCA INSERT INTRACORONARY STENT 02/25/2023 PCI/stent to in-stent restenosis of previously placed RCA stent KNEE LEFT OP SURGERY Left 05/2020 LIG/TRNSXJ FLP TUBE ABDL/VAG APPR UNI/BI PAST SURGICAL HISTORY OF 05/14/2012 polyp removed from esoph STEREO LOC FOR CORE BRST BX RT 10/13/2012 TONSILLECTOMY AND ADENOIDECTOMY TONSILLECTOMY HX FAMILY HISTORY Problem Relation Age of Onset Breast Cancer Mother Hypertension Mother Heart Mother Coronary Artery Disease Mother Hypertension Father Cancer Father Lymphoma Hypertension Brother SOCIAL HISTORY Social History Tobacco Use Smoking status: Former Current packs/day: 0.00 Average packs/day: 0.5 packs/day for 20.0 years (10.0 ttl pk-yrs) Types: Cigarettes Start date: 02/22/2003 Quit date: 02/22/2023 Years since quittin.5 Smokeless tobacco: Never Vaping Use Vaping status: Never Used Substance Use Topics Alcohol use: Yes Alcohol/week: 42.0 standard drinks of alcohol Types: 42 Cans of Beer (12oz) per week Drug use: Yes Comment: marijuana use-last evening REVIEW OF SYSTEMS Abdomen: No abdominal pain, nausea, vomiting, diarrhea, or constipation. No bloating, early satiety, indigestion, or increased flatulence. Bladder: No dysuria, gross hematuria, urinary frequency, urinary urgency, or incontinence Breast: No breast lumps, nipple d/c, overlying skin changes, redness or skin retraction Allergies and current medication updated:Yes SENSITIVE EXAM: The sensitive examination was discussed with the Patient or Patient's Authorized Salt Machine Operator. As applicable, any other physician, advance practice provider, medical student, or other health professional student that will be observing or involved in the sensitive examination for educational or training purposes was discussed with the Patient or Authorized Salt Machine Operator. The Patient or Authorized Salt Machine Operator has agreed to proceed with the sensitive examination. (Sensitive examination includes inspection and/or palpation of the breasts, pelvis, prostate and anorectal regions). EXAM: BP 140/78 Ht 5' 1.5 (1.56m) Wt 173 lb (78.5kg) LMP 03/05/2012 BMI 32.16 kg/(m2). GENERAL: pleasant, female in no apparent distress [...] external genitalia normal, normal Bartholin's glands, urethra, [place]'s glands, no vulvar lesions, no cervical lesions, good vaginal support, physiologic discharge present, normal appearing perineal body and perianal region BIMANUAL: uterus normal size, shape and consistency, no adnexal masses, and non-tender RECTOVAGINAL: deferred. NEURO: alert and o (more content not included)... Normal [facility] HIGH RISK HUMAN PAPILLOMA ASHANTI (HPV), PCR FOR DETECTION AND GENOTYPINGon 09-21-2024 HPV 16 Ag Ql (Unsp spec) Not detected Normal Not detected [facility] Comment on above: Order Comment: Speci men Type: FLUID SPECIMEN Ordering Facility: [facility] Address: [address] [place] [address] Performed By: #### H PVHRT #### [facility] CLIA [id number] [address] [place] [address] [place] HPV 18 Ag Ql (Unsp spec) Not detected Normal Not detected [facility] Comment on above: Order Comment: Speci men Type: FLUID SPECIMEN Ordering Facility: [facility] Address: [address] [place] [address] Performed By: #### H PVHRT #### [facility] CLIA [id number] [address] [place] [address] [place] HPV 31+33+35+39+45+51+52+56+58 +59+66+68 DNA FERCHO+probe Ql (Cvx) Not detected Normal Not detected [facility] Comment on above: Order Comment: Speci men Type: FLUID SPECIMEN Ordering Facility: [facility] Address: [address] [place] [address] Result Comment: High Risk HPV Other Type includes HPV types 31, 33, 35, 39, 45, 51, 52, 56, 58, 59, 66 and 68. Performed By: #### H PVHRT #### [facility] CLIA [id number] [address] [place] [address] [place] PAP TESTon 09-21-2024 ADEQUACY Satisfactory for interpretation. Normal [facility] Comment on above: Order Comment: Speci men Type: FLUID SPECIMEN Ordering Facility: [facility] Address: [address] [place] [address] Performed By: #### L [id number] #### [facility] CLIA [id number] [address] [place] [address] [place] CASE REPORT Normal [facility] Comment on above: Order Comment: Speci men Type: FLUID SPECIMEN Ordering Facility: [facility] Address: [address] [place] [address] Result Comment: Gyne cologic Cytology Report Case: [id number] Authorizing Provider: Aracelis Mccormick, Collected: 09/21/2024 03:58 PM MD Ordering Location: OB/Gynecology Received: 09/21/2024 04:31 PM First Screen: Shira Roque, JESÚS, ASCP Specimen: Pap Test, ThinPrep, Cervix Performed By: #### L [id number] #### [facility] CLIA [id number] [address] [place] [address] [place] CLINICAL HISTORY, CYTOLOGY, TEAM ASSEMBLER Post Menopausal Normal [facility] Comment on above: Order Comment: Speci men Type: FLUID SPECIMEN Ordering Facility: [facility] Address: [address] [place] [address] Performed By: #### L [id number] #### [facility] CLIA [id number] [address] [place] [address] [place] CYTOLOGY PAP OTHER INTERPRETATION Atrophic specimen. Normal [facility] Comment on above: Order Comment: Speci men Type: FLUID SPECIMEN Ordering Facility: [facility] Address: [address] [place] [address] Performed By: #### L [id number] #### [facility] CLIA [id number] [address] [place] [address] [place] FINAL PERFORMING LAB Normal [facility] Comment on above: Order Comment: Speci men Type: FLUID SPECIMEN Ordering Facility: [facility] Address: [address] [place] [address] Result Comment: Tech nical component, last scourer screening performed at [facility], [address] [place], [place] [id number] CLIA# [id number] Diagnostic interpretation performed at [facility], [address] [place], [place] [id number] CLIA# [id number] Sales Lead Generator: Bart Madsen M.D. Performed By: #### L [id number] #### [facility] CLIA [id number] [address] [place] [address] [place] INTERPRETATION, CYTOLOGY, TEAM ASSEMBLER Normal [facility] Comment on above: Order Comment: Speci men Type: FLUID SPECIMEN Ordering Facility: [facility] Address: [address] [place] [address] Result Comment: Nega tive for intraepithelial lesion or malignancy. Performed By: #### L [id number] #### [facility] CLIA [id number] [address] [place] [address] [place] PAP DISCLAIMER COMMENT The Pap Smear is a screening test for cervical cancer. False negative results occur with all screening tests, emphasizing the need for rescreening at recommended intervals, and clinical correlation. Normal [facility] Comment on above: Order Comment: Speci men Type: FLUID SPECIMEN Ordering Facility: [facility] Address: [address] [place] [address] Performed By: #### L [id number] #### [facility] CLIA [id number] [address] [place], [place] [id number] [place] PAP DUPLICATOR PUNCH OPERATOR COMMENT This specimen has been analyzed by the ThinPrep Imaging System, an automated imaging and review system, which assists the laboratory in evaluating cells on ThinPrep Pap tests. Following automated imaging, selected bautista from every slide are reviewed by a last scourer. Normal [facility] Comment on above: Order Comment: Speci men Type: FLUID SPECIMEN Ordering Facility: [facility] Address: [address] [place] [address] Performed By: #### L [id number] #### [facility] CLIA [id number] [address] [place] [address] [place] [address] [place] DBT Breast - bilateral scree nayelijuliet 09-16-2024 IMPRESSION: There are no suspicious mammographic findings in either breast. Routine screening mammogram is recommended. Annual mammogram will be due in 1 year. BI-RADS Category 1: Negative RISK: Based on the Tyrer-Cuzick (TC) risk assessment model, this patient has a 10.0% lifetime risk of developing breast cancer, meaning they are at average risk for developing breast cancer. However, this is only an estimate based on available history provided on the patient's questionnaire. We encourage all patients to talk with their providers about these results, further recommendations for managing breast health, and appropriate supplemental screening options if the patient has dense breast tissue. Interpreting Radiologist: Ya Lanza M.D. Electronically signed on: 09/16/2024 Compliance Investigator: PRIYANKA Transcribe Date/Time: Sep 16 2024 7:47A Dictated by: ZULMA LUCERO DO This examination was interpreted and the report reviewed and electronically signed by: YA LANZA MD on Sep 16 2024 11:18AM [facility] DIVISION OF RADIOLOGY * * *Final Report* * * DATE OF EXAM: Sep 16 2024 8:00AM [facility] 0582 - JON SCREENING W JOSHUA / PROCEDURE REASON: Encounter for screening mammogram for malignant neoplasm of breast * * * * Physician Interpretation * * * * RESULT: [facility] [address] [place] [address] #[id number] - JON SCREENING W JOSHUA HISTORY: Patient is 64 years old and is seen for screening and is asymptomatic in both breasts. Patient states no personal history of breast cancer. Patient states no personal history of other cancers. COMPARISON STUDIES: The present examination has been compared to prior imaging studies dated 12/30/2017 (mammogram), 05/16/2021 (mammogram), 08/14/2022 (mammogram) and 08/30/2023 (mammogram). MAMMOGRAM TECHNIQUE: The study was acquired using full field digital technology and interpreted from soft copy. Digital Breast Tomosynthesis (DBT) images were obtained and used to assist in the interpretation of this examination. Computer-aided detection was utilized by the radiologist in the interpretation of this examination. MAMMOGRAM FINDINGS: There are scattered areas of fibroglandular density. No suspicious masses, calcifications or other abnormalities are seen in either breast. There are no significant changes from the prior study. DIVISION OF RADIOLOGY Provider, [facility] [place] - 09/16/2024 * * *Final Report* * * DATE OF EXAM: Sep 16 2024 8:00AM [facility] 0582 - [facility] SCREENING W JOSHUA / PROCEDURE REASON: Encounter for screening mammogram for malignant neoplasm of breast * * * * Physician Interpretation * * * * RESULT: [place] [address] #[id number] - [facility] SCREENING W JOSHUA HISTORY: Patient is 64 years old and is seen for screening and is asymptomatic in both breasts. Patient states no personal history of breast cancer. Patient states no personal history of other cancers. COMPARISON STUDIES: The present examination has been compared to prior imaging studies dated 12/30/2017 (mammogram), 05/16/2021 (mammogram), 08/14/2022 (mammogram) and 08/30/2023 (mammogram). MAMMOGRAM TECHNIQUE: The study was acquired using full field digital technology and interpreted from soft copy. Digital Breast Tomosynthesis (DBT) images were obtained and used to assist in the interpretation of this examination. Computer-aided detection was utilized by the radiologist in the interpretation of this examination. MAMMOGRAM FINDINGS: There are scattered areas of fibroglandular density. No suspicious masses, calcifications or other abnormalities are seen in either breast. There are no significant changes from the prior study. IMPRESSION IMPRESSION: There are no suspicious mammographic findings in either breast. Routine screening mammogram is recommended. Annual mammogram will be due in 1 year. BI-RADS Category 1: Negative RISK: Based on the Tyrer-Cuzick (TC) risk assessment model, this patient has a 10.0% lifetime risk of developing breast cancer, meaning they are at average risk for developing breast cancer. However, this is only an estimate based on available history provided on the patient's questionnaire. We encourage all patients to talk with their providers about these results, further recommendations for managing breast health, and appropriate supplemental screening options if the patient has dense breast tissue. Interpreting Radiologist: Ya Lanza M.D. Electronically signed on: 09/16/2024 Compliance Investigator: PRIYANKA Transcrinataliia Date/Time: Sep 16 2024 7:47A Dictated by: ZULMA LUCERO DO This examination was interpreted and the report reviewed and electronically signed by: YA LANZA MD on Sep 16 2024 11:18AM EST [facility] Radiology Study [facility]narrative[facility] Breast - bilateral scree ningOrdered By: [facility] Provider on 09-16-2024 [facility] JON SCREENING W TOMOon 09-16 JON SCREENING W JOSHUA * * *Final Report* * * DATE OF EXAM: Sep 16 2024 8:00AM [facility] 0582 - JON SCREENING W JOSHUA / PROCEDURE REASON: Encounter for screening mammogram for malignant neoplasm of breast * * * * Physician Interpretation * * * * RESULT: [facility] [place] [address] #[id number] - JON SCREENING W JOSHUA HISTORY: Patient is 64 years old and is seen for screening and is asymptomatic in both breasts. Patient states no personal history of breast cancer. Patient states no personal history of other cancers. COMPARISON STUDIES: The present examination has been compared to prior imaging studies dated 12/30/2017 (mammogram), 05/16/2021 (mammogram), 08/14/2022 (mammogram) and 08/30/2023 (mammogram). MAMMOGRAM TECHNIQUE: The study was acquired using full field digital technology and interpreted from soft copy. Digital Breast Tomosynthesis (DBT) images were obtained and used to assist in the interpretation of this examination. Computer-aided detection was utilized by the radiologist in the interpretation of this examination. MAMMOGRAM FINDINGS: There are scattered areas of fibroglandular density. No suspicious masses, calcifications or other abnormalities are seen in either breast. There are no significant changes from the prior study. IMPRESSION: There are no suspicious mammographic findings in either breast. Routine screening mammogram is recommended. Annual mammogram will be due in 1 year. BI-RADS Category 1: Negative RISK: Based on the Tyrer-Cuzick (TC) risk assessment model, this patient has a 10.0% lifetime risk of developing breast cancer, meaning they are at average risk for developing breast cancer. However, this is only an estimate based on available history provided on the patient's questionnaire. We encourage all patients to talk with their providers about these results, further recommendations for managing breast health, and appropriate supplemental screening options if the patient has dense breast tissue. Interpreting Radiologist: Ya Lanza M.D. Electronically signed on: 09/16/2024 Compliance Investigator: PRIYANKA Transcribe Date/Time: Sep 16 2024 7:47A Dictated by: ZULMA LUCERO DO This examination was interpreted and the report reviewed and electronically signed by: YA LANZA MD on Sep 16 2024 11:18AM EST [id number] CN Normal [facility] Cardiology Visit Reporton Cardiology Visit Report [facility] [address] [place] [address] OFFICE VISIT Date of Service: 06/23/24 MR#: [id number] Acct: [id number] Name: VISHAL GEORGE Rep #: [id number] : 1960 Provider: PHONG gunderson Age/Sex: 64/F Location: [facility] Status: Signed [facility] History of Present Illness Details: VISHAL GEORGE, is a 64 F who presents to the office today for a cardiovascular follow-up visit. Patient presented to [facility] for severe nausea and vomiting. Patient was evaluated by cardiology due to acute on chronic diastolic and systolic congestive heart failure. Her ejection fraction at that time was reduced to 15%. She underwent a cardiac catheterization on 02/25/2023 which showed 80% in-stent restenosis. She she did undergo a PCI at that time. While in the hospital patient had a 34 beat run of V. tach/wide-complex tachycardia. She was transferred to [facility] for ICD evaluation. EP considered the episode of V tach nonsustained and potentially reperfusion arrhythmias that occurred the night of the PCI to the RCA. He also did not recommend a LifeVest due to the fact that she had only had 1 episode of ventricular tachycardia in hours after reperfusion. She has a history of coronary artery disease, ischemic cardiomyopathy, hypertension, hyperlipidemia, and a history of EtOH abuse. Her echocardiogram from 09/18/2023 demonstrated an improved ejection fraction of 45%. From a cardiac standpoint, the patient is doing well. She denies any palpitations, chest pain, pressure or heaviness. She denies SOB, Orthopnea, and PND. She does not have bleeding issues; no blood in urine, stool or nosebleeds. She denies any decrease in energy level, myalgias, or claudication. She does not have edema, or sudden weight gain. She denies dizziness, lightheadedness, syncopal or near syncopal episodes, and headaches. Intake Vital Signs 12/19/23 08:59 06/23/24 08:23 06/23/24 08:25 Height 5 ft 2 in 5 ft 2 in 5 ft 2 in Weight: 163 lb 170 lb BMI 29.8 31.1 BP 118/75 111/69 Blood Pressure Location Lt brachial Lt brachial Position Sitting Sitting Respiration 18 18 Pulse 82 75 Pulse Source Monitor Monitor Pulse Oximetry (%) 97 93 Intake Visit Reasons: 6 M Front Desk Receptionist Required: No Is patient in pain?: No Allergies No Known Allergies Allergy (Verified 06/23/24 08:45) Medications ???Medication ???Instructions ???Recorded ???Confirmed ???Type pantoprazole 40 mg tablet,delayed 40 mg PO DAILY #30 tabs 07/12/22 06/23/24 Rx release aspirin 81 mg tablet,delayed 81 mg PO DAILY 03/22/23 06/23/24 History release (Adult Aspirin Regimen) multivitamin with iron 1 tab PO DAILY 03/22/23 06/23/24 History sertraline 25 mg tablet 25 mg PO DAILY 03/22/23 06/23/24 History celecoxib 200 mg capsule (Celebrex) 200 mg PO DAILY 03/25/23 06/23/24 History cholecalciferol (vitamin D3) 25 125 mcg PO DAILY 03/25/23 06/23/24 History mcg (1,000 unit) capsule clopidogrel 75 mg tablet 75 mg PO QHS #90 tabs 03/25/23 06/23/24 Rx promethazine 25 mg tablet 25 mg PO TID PRN nausea and 04/24/23 06/23/24 Rx vomiting #14 tabs buspirone 10 mg tablet 10 mg PO BID 06/26/23 06/23/24 History blood pressure monitor #1 ea 07/03/23 06/23/24 Rx spironolactone 25 mg tablet 25 mg PO BID Pt awaiting mail 07/22/23 06/23/24 Rx order RX, pt is OUT of pills #60 tabs cyanocobalamin (vitamin B-12) 1,000 mcg PO DAILY 09/17/23 06/23/24 History 1,000 mcg tablet (Vitamin B-12) zinc gluconate 100 mg tablet 50 mg PO DAILY 09/17/23 06/23/24 History furosemide 20 mg tablet 20 mg PO DAILY #90 TABLETS 02/17/24 06/23/24 Rx sacubitril 97 mg-valsartan 103 mg 1 tab PO BID #180 tabs 03/05/24 06/23/24 Rx tablet (Entresto) empagliflozin 10 mg tablet 10 mg PO DAILY #90 TABLETS 04/09/24 06/23/24 Rx (Jardiance) carvedilol 12.5 mg tablet 12.5 mg PO BID #180 TABLETS 05/05/24 06/23/24 Rx atorvastatin 40 mg tablet 40 mg PO QHS #90 tabs 05/13/24 06/23/24 Rx albuterol sulfate 90 mcg/actuation 2 puff inhalation Q6H PRN 06/23/24 06/23/24 History aerosol inhaler cetirizine 10 mg capsule (Allergy 10 mg PO QDAY PRN 06/23/24 06/23/24 History Relief (cetirizine)) montelukast 10 mg tablet 10 mg PO QDAY 06/23/24 06/23/24 History (Singulair) PFSH Medical History (Reviewed 06/23/24 @ 08:45 by Lashay Prater TERMITE CONTROL SERVICER, TERMITE CONTROL SERVICER-C) History of ETOH abuse Chronic systolic heart failure Ischemic cardiomyopathy Nicotine use disorder Essential hypertension Atherosclerotic heart disease of [place] coronary artery without angina pectoris Coronary artery disease Combined systolic and diastolic heart failure Hiatal hernia Nausea and vomiting Surgical History (Reviewed 06/23/24 @ 08:45 by Lashay Prater TERMITE CONTROL SERVICER, TERMITE CONTROL SERVICER-C) Stented coronary ar (more content not included)... Normal [facility] Comprehensive Metabolic Prof ilon 06-02-2024 Albumin [Mass/Vol] 3.8 g/dL Normal 3.2-5.0 [facility] Comment on above: Performed By: #### L 500.4100, L502.0250, L501.9985, L506.1000, L500.4050 #### [facility] [address] [place], [address] Albumin/Globulin [Mass ratio] 1.2 {ratio} Normal 0.9-2.[address] [facility] Comment on above: Performed By: #### L 500.4100, L502.0250, L501.9985, L506.1000, L500.4050 #### [facility] [address] [place], [address] ALK P 70 U/L Normal 45-[address] [facility] Comment on above: Performed By: #### L 500.4100, L502.0250, L501.9985, L506.1000, L500.4050 #### [facility] [address] [place], [address] ALT [Catalytic activity/Vol] 26 U/L Normal 13-[address] [facility] Comment on above: Performed By: #### L 500.4100, L502.0250, L501.9985, L506.1000, L500.4050 #### [facility] [address] [place], [address] AST [Catalytic activity/Vol] 16 U/L Normal 15-[address] [facility] Comment on above: Performed By: #### L 500.4100, L502.0250, L501.9985, L506.1000, L500.4050 #### [facility] [address] [place], [address] Bilirubin [Mass/Vol] 0.40 mg/dL Normal 0.20-1.00 [facility] Comment on above: Result Comment: For patients on eltrombopag therapy, use of Dimension Fabens TBIL is not recommended. Performed By: #### L 500.4100, L502.0250, L501.9985, L506.1000, L500.4050 #### [facility] [address] [place], [address] BUN/CRE 22.8 RATIO High 10-[address] [facility] Comment on above: Performed By: #### L 500.4100, L502.0250, L501.9985, L506.1000, L500.4050 #### [facility] [address] [place], [address] CA,Total 8.9 mg/dL Normal 8.5-10.[address] [facility] Comment on above: Performed By: #### L 500.4100, L502.0250, L501.9985, L506.1000, L500.4050 #### [facility] [address] [place], [address] Chloride [Moles/Vol] 109 mmol/L High 98-107 [facility] Comment on above: Performed By: #### L 500.4100, L502.0250, L501.9985, L506.1000, L500.4050 #### [facility] [address] [place], [address] CO2 [Moles/Vol] 29.0 mmol/L Normal 21.0-32.[address] [facility] Comment on above: Performed By: #### L 500.4100, L502.0250, L501.9985, L506.1000, L500.4050 #### [facility] [address] [place], [address] Creatinine [Mass/Vol] 0.79 mg/dL Normal 0.55-1.02 [facility] Comment on above: Result Comment: The validity of the calculated GFR GFRAA in patients over 70 years has not been determined. Clinical correlation is essential. Performed By: #### L 500.4100, L502.0250, L501.9985, L506.1000, L500.4050 #### [facility] [address] [place], [address] EST GFR - AA 95 mL/min Normal >[address] [facility] Comment on above: Result Comment: Afri can Kazakh GFR Calc Performed By: #### L 500.4100, L502.0250, L501.9985, L506.1000, L500.4050 #### [facility] [address] [place], [address] GAP 4 Low 5-[address] [facility] Comment on above: Performed By: #### L 500.4100, L502.0250, L501.9985, L506.1000, L500.4050 #### [facility] [address] [place], [address] GFR/1.73 sq M.predicted among non-blacks MDRD (S/P/Bld) [Vol rate/Area] 79 mL/min/{1.73_m2} Normal >60 [facility] Comment on above: Result Comment: Non- GFR Calc Performed By: #### L 500.4100, L502.0250, L501.9985, L506.1000, L500.4050 #### [facility] [address] [place], [address] Globulin (S) [Mass/Vol] 3.2 g/dL Normal 2.2-4.2 [facility] Comment on above: Performed By: #### L 500.4100, L502.0250, L501.9985, L506.1000, L500.4050 #### [facility] [address] [place], [address] Glucose [Mass/Vol] 108 mg/dL High 74-106 [facility] Comment on above: Result Comment: Fast ing Glucose result from 100 to 125 mg/dL suggests IMPAIRED HOMEOSTASIS per A.D.A. criteria. Performed By: #### L 500.4100, L502.0250, L501.9985, L506.1000, L500.4050 #### [facility] [address] [place], [address] Potassium [Moles/Vol] 3.7 mmol/L Normal 3.5-5.1 [facility] Comment on above: Performed By: #### L 500.4100, L502.0250, L501.9985, L506.1000, L500.4050 #### [facility] [address] [place], [address] Sodium [Moles/Vol] 142 mmol/L Normal 136-145 [facility] Comment on above: Performed By: #### L 500.4100, L502.0250, L501.9985, L506.1000, L500.4050 #### [facility] [address] [place], [address] T PROT 7.0 g/dL Normal 6.4-8.[address] [facility] Comment on above: Performed By: #### L 500.4100, L502.0250, L501.9985, L506.1000, L500.4050 #### [facility] [address] [place], [address] Urea nitrogen [Mass/Vol] 18 mg/dL Normal 7-[address] [facility] Comment on above: Performed By: #### L 500.4100, L502.0250, L501.9985, L506.1000, L500.4050 #### [facility] [address] [place], [address] Hemoglobin A1con 06-02-2024 HbA1c (Bld) [Mass fraction] 5.2 % Normal 3.8-5.[address] [facility] Comment on above: Result Comment: Norm al < 5.7 % Prediabetic 5.7 - 6.4 % Diabetic >or= 6.5 % Please note range changes. Performed By: #### L 500.4100, L502.0250, L501.9985, L506.1000, L500.4050 ####[facility] [address] [place], [address] Lipid Profileon 06-02-2024 Cholesterol [Mass/Vol] 183 mg/dL Normal 200 [facility] Comment on above: Result Comment: <200 mg/dL Desirable 200-240 mg/dL Borderline >240 mg/dL High Risk Performed By: #### L 500.4100, L502.0250, L501.9985, L506.1000, L500.4050 #### [facility] [address] [place], [address] Cholesterol in HDL [Mass/Vol] 55 mg/dL Normal [facility] Comment on above: Result Comment: The drugs N-Acetylcysteine and Metamizole may falsely depress this assay. Reference Range HDL <40 mg/dL Low HDL Cholesterol HDL >or= 60 mg/dL High HDL Cholesterol Performed By: #### L 500.4100, L502.0250, L501.9985, L506.1000, L500.4050 #### [facility] [address] [place], [address] Cholesterol in LDL [Mass/Vol] 105 mg/dL Normal 0-[address] [facility] Comment on above: Performed By: #### L 500.4100, L502.0250, L501.9985, L506.1000, L500.4050 #### [facility] [address] [place], [address] Cholesterol in VLDL [Mass/Vol] 23 mg/dL Normal 5-[address] [facility] Comment on above: Performed By: #### L 500.4100, L502.0250, L501.9985, L506.1000, L500.4050 #### [facility] [address] [place], [address] Triglyceride [Mass/Vol] 113 mg/dL Normal [facility] Comment on above: Result Comment: The drugs N-Acetylcysteine and Metamizole may falsely depress this assay. Serum Triglycerides Reference Interval Normal <150 mg/dL Borderline high 150 - 199 mg/dL High 200 - 499 mg/dL Very High > or = 500 mg/dL Performed By: #### L 500.4100, L502.0250, L501.9985, L506.1000, L500.4050 #### [facility] [address] [place], [address] Microalb:Creat Ratio,Random URon 06-02-2024 Creatinine [Mass/Vol] 134.00 mg/dL Normal NO RAN GE EST. [facility] Comment on above: Performed By: #### L 500.4100, L502.0250, L501.9985, L506.1000, L500.4050 ####[facility] [address], [address] MALB:CRE 8.7 mg/g CRE Normal <30 mg/g CRE [facility] Comment on above: Performed By: #### L 500.4100, L502.0250, L501.9985, L506.1000, L500.4050 ####[facility] [address] [place], [address] MICROALBUMIN,UR 11.6 mg/L Normal NO RANGE EST. [facility] Comment on above: Performed By: #### L 500.4100, L502.0250, L501.9985, L506.1000, L500.4050 ####[facility] [address] [place], [place], [address] Vitamin D,25 Hydroxyon 06-02 Vitamin D 25-OH 53.5 ng/mL Normal [facility] Comment on above: Result Comment: Stephanie min D 25(OH) Status Range Deficiency <20 ng/mL (50nmol/L) Insufficiency 20 - 30 ng/mL (50 - 75 nmol/L) Sufficiency 30 - 100 ng/mL (75 - 250 nmol/L) Toxicity >100 ng/mL (>250 nmol/L) Performed By: #### L 500.4100, L502.0250, L501.9985, L506.1000, L500.4050 ####[facility] [address] [place], [address] CNOVon 12-27-[address] [facility] Office Visit ([facility]) VISHAL GEORGE ([id number]) 1960 F Date Time Provider Department 12/27/23 12:00 PM SHAY TERESA [facility] During your visit today, we recorded the following information about you: Pulse Blood pressure Weight 71/minute 132/67 73.5 kg Shay Teresa APRN.GR[employer] JACK WORKER 12/27/2023 12:21 PM Signed START taking 2 tablets of entresto in the morning and at night. Monitor your blood pressure 2-3 hours after each dose. IF blood pressure is less than 110/60 mmHg OR you become symptomatic with dizziness or lightheadedness, go back to 1 tablet of entresto twice a day. STOP taking lasix everyday. You may take this for 3-4 lb weight gain in 1-2 days. *call the office in 1 week to review blood pressures and symptoms OR sooner if you cannot tolerate. 2. Weigh yourself daily. Call me if your weight increases by 3-4 pounds in a 1-4 day period of time. 3. Continue low salt (2000 mg per day) diet. 4. Be as active as you are able. If you get tired, just stop and rest for a while. 5. Come back and see me on July 02 at 1200. If you have any question or concern, you can call me at [phone]. Shay Teresa APRN.MELODY 12/27/2023 12:33 PM Signed [facility] [place] [facility] OUTPATIENT VISIT DATE December 26, 2023 OUTPATIENT VISIT TYPE ESTABLISHED PRIMARY CARE PHYSICIAN: TRUDY Rendon, MELODY CHIEF COMPLAINT: Patient presents with: Breathing Problem CHF HISTORY OF PRESENT ILLNESS: Vishal George is a 63 year old female who presents today for a follow-up visit in the Heart Failure Clinic. The patient was last seen in office 07/12. The following changes were made at that time: none. The patient has had 1 hospital admissions [...] of ventricular tachycardia. She was transferred to [facility] for possible ICD placement. Electrophysiology was consulted. Recommended life vest and repeat echo in 3 months. Cardiology also started patient on carvedilol, jardiance and aldactone along with entresto. Today, the patient reports feeling well. Denies chest pain, shortness of breath, fever, chills, leg swelling, dizziness or lightheadedness. She made some personal choices last year regarding her home life and states she has never felt better. She has more energy. States she has not increased her entresto and is still taking 49-51 mg BID. Blood pressures have been stable at over 110 systolic. Does not monitor at home; this was taken at the doctor's office. Current smoker. Does not use inhaler daily. She follows with a delivery sales worker in [place]. Does not weigh every day. Monitors her sodium intake. Does not monitor fluids as well. Weights have been stable at 162-164 lbs. States she had an echocardiogram in September in [place] and reports an ejection fraction of 45%. She was told by her delivery sales worker if it was less than 35% she would qualify for a pacemaker. She was seen by Cardiology last week. No changes made to medications at that time. IMPRESSION: NYHA Functional Class: II Stage: C heart failure Vishal George is a 62 year-old female who presents to the [facility] for follow up. She appears euvolemic on examination. Will trial an increase in entresto to 97-103 mg BID. She is to use the current dose she has and double up in the morning and in the evening. Blood pressure parameters given to patient. Discussed following up with HF Clinic and with cardiology in [place]. She is to call the office next week and review blood pressures and symptoms. She is also to decrease back to 49-51 mg entresto BID if she is not able to tolerate higher dose. Red flags reviewed with patient. Reviewed all medication Reviewed plan of care with patient. All questions answered at this time. PLAN AND RECOMMENDATIONS: 1. Chronic systolic heart failure (HCC) - ICD9: 428.22, ICD10: I50.22 (primary diagnosis) - daily weights, call office if weight increases 3-4 lbs in a 1-4 day period -2 gm low sodium diet -activity as tolerated, rest breaks as needed -GDMT: entresto, spironolactone, lasix PRN, coreg, jardiance -titrate entresto to 97-103 mg BID -lasix to as needed -follow up in HF clinic 07/02 or sooner if needed 2. Ischemic cardiomyopathy - ICD9: 414.8, ICD10: I25.5 -EF 20% -repeat echo 3 months once GDMT is optimized -repeat echo in [place] shows 45% from September 2023 Per the patient- no outside records present during visit 3. Hyperlipidemia (more content not included)... Normal [facility] Basophil percentageOrdered B y: Ricki Holbrookpkins on 11-13-2023 Bilirubin [Mass/Vol] 0.40 mg/dL 0.20-1.00 [facility] Comment on above: For patients on eltr ombopag therapy, use of Dimension Fabens TBIL is not recommended. Chloride [Moles/Vol] 110 mmol/L 98-107 [facility] Cholesterol [Mass/Vol] 137 mg/dL <200 [facility] Comment on above: <200 mg/dL Desirable 200-240 mg/dL Borderline >240 mg/dL High Risk Glucose [Mass/Vol] 117 mg/dL 74-106 [facility] Comment on above: Fasting Glucose resu lt from 100 to 125 mg/dL suggests IMPAIRED HOMEOSTASIS per A.D.A. criteria. Potassium [Moles/Vol] 4.8 mmol/L 3.5-5.1 [facility] Protein [Mass/Vol] 6.9 g/dL 6.4-8.2 [facility] Sodium [Moles/Vol] 139 mmol/L 136-145 [facility] Triglyceride [Mass/Vol] 52 mg/dL <199 [facility] Comment on above: The drugs N-Acetylcy steine and Metamizole may falsely depress this assay.Serum Triglycerides Reference Interval Normal <150 mg/dL Borderline high 150 - 199 mg/dL High 200 - 499 mg/dL Very High > or = 500 mg/dL Laboratory - Chemistry and C hemistry - challengeOrdered By: Ricki Griffin on 11-13-2023 Albumin/Globulin [Mass ratio] 1.2 {ratio} 0.9-2.[address] [facility] ALP [Catalytic activity/Vol] 72 U/L 45-[address] [facility] ALT [Catalytic activity/Vol] 28 U/L 13-[address] [facility] Cholesterol in HDL (Body fld) [Mass/Vol] 52 mg/dL >[address] [facility] Comment on above: The drugs N-Acetylcy steine and Metamizole may falsely depress this assay. Reference Range HDL <40 mg/dL Low HDL Cholesterol HDL >or= 60 mg/dL High HDL Cholesterol Cholesterol in LDL (Body fld) [Moles/Vol] 75 mg/dL 0-[address] [facility] Cholesterol in VLDL Calc [Moles/Vol] 10 mg/dL 5-[address] [facility] CO2 [Moles/Vol] 27.0 mmol/L 21.0-32.[address] [facility] Globulin (S) [Mass/Vol] 3.2 g/dL 2.2-4.2 [facility] Urea nitrogen/Creatinine [Mass ratio] 26.3 mg/mg 10-[address] [facility] No Panel InformationOrdered By: Ricki Griffin on 11-13-2023 Estimated GFR (MDRD) Amer 94 mL/min >[address] [facility] Comment on above: GFR Calc Estimated GFR (MDRD) Non-Af Amer 78 mL/min >[address] [facility] Comment on above: Non- GFR Calc Vitamin D 25-Hydroxy 62.7 ng/mL [facility] Comment on above: Vitamin D 25(OH) Sta tus Range Deficiency <20 ng/mL (50nmol/L) Insufficiency 20 - 30 ng/mL (50 - 75 nmol/L) Sufficiency 30 - 100 ng/mL (75 - 250 nmol/L) Toxicity >100 ng/mL (>250 nmol/L) Serum or plasma calcium virgie urement (mass/volume)Ordered By: Ricki Griffin on 11-13-2023 Calcium [Mass/Vol] 9.4 mg/dL 8.5-10.1 [facility] Serum or plasma creatinine m easurement (mass/volume)Ordered By: Ricki Griffin on 11-13-2023 Creatinine [Mass/Vol] 0.80 mg/dL 0.55-1.02 [facility] Comment on above: The validity of the calculated GFR & GFRAA in patients over 70 years has not been determined. Clinical correlation is essential. Serum or plasma urea nitroge n measurement (mass/volume)Ordered By: Ricki Griffin on 11-13-2023 Urea nitrogen [Mass/Vol] 21 mg/dL 7-[address] [facility] Thin prep Papanicolaou smear with manual screeningOrdered By: Ricki Griffin on 11-13-2023 Thin prep Papanicolaou smear with manual screening 3.7 g/dL 3.2-5.[address] [facility] Thin prep Papanicolaou smear with manual screening 16 U/L 15-[address] [facility] Thin prep Papanicolaou smear with manual screening 2 5-[address] [facility] Thin prep Papanicolaou smear with manual screening 5.1 mg/L NO RANGE EST. [facility] Urine albumin/creatinine rat io for detection of microalbuminuriaOrdered By: Ricki Griffin on 11-13-2023 Albumin/Creatinine DL <= 1.0 mg/L (24H U) [Ratio] 6.1 mg/g CRE <[address] [facility] Urine creatinine measurement (mass/volume)Ordered By: Ricki Griffin on 11-13-2023 Creatinine (U) [Mass/Vol] 83.70 mg/dL NO RANGE EST. [facility] Whole blood hemoglobin A1c/t otal hemoglobin ratio (mass fraction)Ordered By: Ricki Griffin on 11-13-2023 HbA1c (Bld) [Mass fraction] 5.4 % 3.8-5.[address] [facility] Comment on above: Normal < 5.7 % Predi abetic 5.7 - 6.4 % Diabetic >or= 6.5 % Please note range changes. CNOVon 07-12-[address] [facility] Office Visit ([facility]) VISHAL GEORGE ([id number]) 1960 F Date Time Provider Department 07/12/23 12:00 PM SHAY TERESA [facility] During your visit today, we recorded the following information about you: Pulse Blood pressure Weight 69/minute 139/76 74 kg Shay Teresa APRN.CNP 07/12/2023 12:38 PM Signed [facility] OUTPATIENT VISIT DATE July 12, 2023 OUTPATIENT VISIT TYPE ESTABLISHED PRIMARY CARE PHYSICIAN: TRUDY Rendon, MELODY CHIEF COMPLAINT: Patient presents with: Breathing Problem HISTORY OF PRESENT ILLNESS: Vishal George is a 63 year old female who [...] of ventricular tachycardia. She was transferred to [facility] for possible ICD placement. Electrophysiology was consulted. Recommended life vest and repeat echo in 3 months. Cardiology also started patient on carvedilol, jardiance and aldactone along with entresto. Today, the patient reports feeling very well. She follows with a delivery sales worker in [place]. Every once in awhile she feels a [...] Class: II Stage: C heart failure Vishal George is a 62 year-old female who presents [...] once GDMT is optimized -repeat echo in [place] shows 15% Per the patient- no outside records present during visit 3. Hyperlipidemia, unspecified hyperlipidemia type - ICD9: 272.4, ICD10: E78.5 -continue statin therapy 4. Primary hypertension - ICD9: 401.9, ICD10: I10 -BP suboptimal during visit 139/76 mmHg -encourage DASH/low sodium diet -encourage exercise with rest breaks as needed -goal BP <130/80 mmHg -continue home BP monitoring 5. Coronary artery disease involving [place] coronary artery of [place] heart without angina pectoris - ICD9: 414.01, ICD10: I25.10 -stable -s/p [facility] on 02/25 -on aspirin and BB Follow up appointment with Cardiology in [place]. Moe [place] to be scheduled. PAST MEDICAL HISTORY Diagnosis Date Cataract of left eye COPD (chronic obstructive pulmonary disease) (HCC) Dilated cardiomyopathy (HCC) 02/27/2023 Dysplasia of cervix, unspecified High cholesterol History of percutaneous cor (more content not included)... Normal [facility] 06-07-[address] [facility] Office Visit ([facility]) VISHAL GEORGE ([id number]) 1960 F Date Time Provider Department 06/07/23 12:00 PM SHAY TERESA [facility] During your visit today, we recorded the following information about you: Pulse Weight 66/minute 74.6 kg Shay Teresa APRN.CNP 06/07/2023 12:42 PM Signed [facility] OUTPATIENT VISIT DATE June 07, 2023 OUTPATIENT VISIT TYPE ESTABLISHED PRIMARY CARE PHYSICIAN: Ricki Griffin, TRUDY, MELODY CHIEF COMPLAINT: Patient presents with: Breathing Problem Leg Edema HISTORY OF PRESENT ILLNESS: Vishal George is a 63 year old female who presents today for a follow-up visit in the Heart Failure Clinic. The patient was last seen in office 03/07. The following changes were made at that time: increase coreg to 12.5 mg BID, start lasix PRN. Past medical history is significant for systolic heart failure with ejection fraction 20%, nonsustained ventricular tachycardia, hypertension, hypercholesterolemia , dilated cardiomyopathy, chronic obstructive pulmonary disease, s/p C with stent placement on 02/25 revealing 50% [...] of ventricular tachycardia. She was transferred to [facility] for possible ICD placement. Electrophysiology was consulted. [...] able. She states she has a primary delivery sales worker at [place] in which she had an echocardiogram that she says ejection fraction was still at 15%. No results are in Epic as the are from outside hospital. She [...] Functional Class: II Stage: C heart failure Vsihal George is a 62 year-old female who presents [...] once GDMT is optimized -repeat echo in [place] shows 15% Per the patient- no outside records present during visit 3. Hyperlipidemia, unspecified hyperlipidemia type - ICD9: 272.4, ICD10: E78.5 -continue statin therapy 4. Primary hypertension - ICD9: 401.9, ICD10: I10 -BP suboptimal during visit mmHg -encourage DASH/low sodium diet -encourage exercise with rest breaks as needed -goal BP <130/80 mmHg -continue home BP monitoring 5. Coronary artery disease involving [place] coronary artery of [place] heart without angina pectoris - ICD9: 414.01, ICD10: I25.10 -stable -s/p C on 02/25 -on aspirin and BB Follow up appointment with Cardiology in [place], Dr. Ofor to be scheduled. PAST MEDICAL HISTORY Diagnosis Date Cataract of left eye COPD (chronic obstructive pulmonary disease) (HCC) Dilated cardiomyopathy (HCC) 02/27/2023 Dysplasia of cervix, unspecified High cholesterol History of percutaneo (more content not included)... Normal [facility] Basophil percentageOrdered B y: Ricki Griffin on 05-03-2023 Bilirubin [Mass/Vol] 0.40 mg/dL 0.20-1.00 [facility] Comment on above: For patients on eltr ombopag therapy, use of Dimension Fabens TBIL is not recommended. Chloride [Moles/Vol] 106 mmol/L 98-107 [facility] Cholesterol [Mass/Vol] 132 mg/dL <200 [facility] Comment on above: <200 mg/dL Desirable 200-240 mg/dL Borderline >240 mg/dL High Risk Glucose [Mass/Vol] 88 mg/dL 74-106 [facility] Potassium [Moles/Vol] 4.1 mmol/L 3.5-5.1 [facility] Protein [Mass/Vol] 6.8 g/dL 6.4-8.2 [facility] Sodium [Moles/Vol] 141 mmol/L 136-145 [facility] Triglyceride [Mass/Vol] 92 mg/dL <199 [facility] Comment on above: The drugs N-Acetylcy steine and Metamizole may falsely depress this assay.Serum Triglycerides Reference Interval Normal <150 mg/dL Borderline high 150 - 199 mg/dL High 200 - 499 mg/dL Very High > or = 500 mg/dL Laboratory - Chemistry and C hemistry - challengeOrdered By: Ricki Griffin on 05-03-2023 ALP [Catalytic activity/Vol] 78 U/L 45-[address] [facility] ALT [Catalytic activity/Vol] 38 U/L 13-[address] [facility] CO2 [Moles/Vol] 27.0 mmol/L 21.0-32.[address] [facility] Globulin (S) [Mass/Vol] 3.0 g/dL 2.2-4.2 [facility] Urea nitrogen/Creatinine [Mass ratio] 11.3 mg/mg 10-[address] [facility] No Panel InformationOrdered By: Ricki Griffin on 05-03-2023 Estimated GFR (MDRD) Amer 94 mL/min >[address] [facility] Comment on above: GFR Calc Estimated GFR (MDRD) Non-Af Amer 78 mL/min >[address] [facility] Comment on above: Non- GFR Calc Urine Microalbumin/Creatinine Ratio 7.6 mg/g CRE <[address] [facility] Vitamin D 25-Hydroxy 59.7 ng/mL [facility] Comment on above: Vitamin D 25(OH) Sta tus Range Deficiency <20 ng/mL (50nmol/L) Insufficiency 20 - 30 ng/mL (50 - 75 nmol/L) Sufficiency 30 - 100 ng/mL (75 - 250 nmol/L) Toxicity >100 ng/mL (>250 nmol/L) Serum or plasma albumin virgie urement (mass/volume)Ordered By: Ricki Griffin on 05-03-2023 Albumin [Mass/Vol] 3.8 g/dL 3.2-5.0 [facility] Serum or plasma albumin/glob ulin mass ratioOrdered By: Ricki Griffin on 05-03-2023 Albumin/Globulin [Mass ratio] 1.3 {ratio} 0.9-2.[address] [facility] Serum or plasma calcium virgie urement (mass/volume)Ordered By: Ricki Griffin on 05-03-2023 Calcium [Mass/Vol] 9.0 mg/dL 8.5-10.1 [facility] Serum or plasma cholesterol in HDL measurement (mass/volume)Ordered By: Ricki Griffin on 05-03-2023 Cholesterol in HDL [Mass/Vol] 44 mg/dL >[address] [facility] Comment on above: The drugs N-Acetylcy steine and Metamizole may falsely depress this assay. Reference Range HDL <40 mg/dL Low HDL Cholesterol HDL >or= 60 mg/dL High HDL Cholesterol Serum or plasma cholesterol in VLDL measurement (mass/volume)Ordered By: Ricki Griffin on 05-03-2023 Cholesterol in VLDL [Mass/Vol] 18 mg/dL 5-[address] [facility] Serum or plasma creatinine m easurement (mass/volume)Ordered By: Ricki Griffin on 05-03-2023 Creatinine [Mass/Vol] 0.80 mg/dL 0.55-1.02 [facility] Comment on above: The validity of the calculated GFR & GFRAA in patients over 70 years has not been determined. Clinical correlation is essential. Serum or plasma low density lipoprotein (LDL) cholesterol measurement (mass/volume)Ordered By: Ricki Griffin on 05-03-2023 Cholesterol in LDL [Mass/Vol] 70 mg/dL 0-[address] [facility] Serum or plasma urea nitroge n measurement (mass/volume)Ordered By: Ricki Griffin on 05-03-2023 Urea nitrogen [Mass/Vol] 9 mg/dL 7-[address] [facility] Thin prep Papanicolaou smear with manual screeningOrdered By: Ricki Griffin on 05-03-2023 Thin prep Papanicolaou smear with manual screening 17 U/L 15-[address] [facility] Thin prep Papanicolaou smear with manual screening 8 5-[address] [facility] Thin prep Papanicolaou smear with manual screening 5.1 mg/L NO RANGE EST. [facility] Urine creatinine measurement (mass/volume)Ordered By: Ricki Griffin on 05-03-2023 Creatinine (U) [Mass/Vol] 66.40 mg/dL NO RANGE EST. [facility] Absolute lymphocyte countOrd ered By: Shira Oglesby on 04-24-2023 Lymphocytes Auto (Unsp spec) [#/Vol] 1.07 10*3/uL 0.83-4.[address] [facility] Basophil percentageOrdered B y: Shira Oglesby on 04-24-2023 Basophils/100 WBC (Bld) 0.7 % 0-1 [facility] Bilirubin [Mass/Vol] 0.90 mg/dL 0.20-1.00 [facility] Comment on above: For patients on eltr ombopag therapy, use of Dimension Fabens TBIL is not recommended. Chloride [Moles/Vol] 102 mmol/L 98-107 [facility] Eosinophils/100 WBC (Bld) 0.2 % 0-[address] [facility] Glucose [Mass/Vol] 170 mg/dL 74-106 [facility] Comment on above: Fasting Glucose resu lt greater than or equal to 126 mg/dL suggests DIABETES MELLITUS per A.D.A. criteria. Neutrophils (Bld) [#/Vol] 10.3 10*3/uL 2.0-7.[address] [facility] Neutrophils/100 WBC (Bld) 84.4 % 47-[address] [facility] Potassium [Moles/Vol] 3.9 mmol/L 3.5-5.1 [facility] Protein [Mass/Vol] 8.2 g/dL 6.4-8.2 [facility] Sodium [Moles/Vol] 136 mmol/L 136-145 [facility] WBC (Bld) [#/Vol] 12.2 10*3/uL 4.4-11.0 [facility] Blood erythrocytes count (nu mber/volume)Ordered By: Shira Oglesby on 04-24-2023 RBC (Bld) [#/Vol] 4.85 10*6/uL 4.2-5.4 [facility] Blood hemoglobin measurement (mass/volume)Ordered By: Shira Oglesby on 04-24-2023 Hemoglobin (Bld) [Mass/Vol] 13.9 g/dL 12.0-15.[address] [facility] Blood lymphocytes/100 leukoc ytesOrdered By: Shira Oglesby on 04-24-2023 Lymphocytes/100 WBC (Bld) 8.8 % 19-[address] [facility] Blood monocytes/100 leukocyt esOrdered By: Shira Oglesby on 04-24-2023 Monocytes/100 WBC (Bld) 5.3 % 0-10 [facility] Blood platelet mean volumeOr dered By: Shira Oglesby on 04-24-2023 Platelet mean volume (Bld) [Entitic vol] 9.8 fL 6.2-12.[address] [facility] Determination of erythrocyte mean corpuscular volume (MCV)Ordered By: Shira Oglesby on 04-24-2023 MCV (RBC) [Entitic vol] 87.0 fL 81-99 [facility] Direct bilirubinOrdered By: Shira Oglesby on 04-24-2023 Bilirubin.direct [Mass/Vol] 0.23 mg/dL 0.00-0.[address] [facility] Hematocrit Auto (Bld) [Volum e fraction]Ordered By: Shira Oglesby on 04-24-2023 Hematocrit (Bld) [Volume fraction] 42.2 % 37-[address] [facility] Laboratory - Chemistry and C hemistry - challengeOrdered By: Shira Oglesby on 04-24-2023 ALP [Catalytic activity/Vol] 92 U/L 45-[address] [facility] ALT [Catalytic activity/Vol] 82 U/L 13-[address] [facility] CO2 [Moles/Vol] 20.0 mmol/L 21.0-32.[address] [facility] Globulin (S) [Mass/Vol] 3.9 g/dL 2.2-4.2 [facility] Lipase [Catalytic activity/Vol] 28 U/L 13-[address] [facility] Comment on above: Please note:LIPASE r evised reference range effective 23. New Lipase methodology. Expected to produce lower values than the previous assay method. NEW Reference Range: 13 - 75 U/L Urea nitrogen/Creatinine [Mass ratio] 16.3 mg/mg 10-[address] [facility] Laboratory - Hematology and Cell countsOrdered By: Shira Oglesby on 04-24-2023 Erythrocyte distribution width (RBC) [Entitic vol] 40.6 fL 35.1-43.9 [facility] Erythrocyte distribution width (RBC) [Ratio] 12.9 % 11.6-14.[address] [facility] Immature granulocytes/100 WBC (Bld) 0.600 % 0.0-0.[address] [facility] Comment on above: IG% - Immature Granu locytes (promyelocytes, myelocytes and metamyelocytes) > 1% indicates that a LEFT SHIFT is Present. MCH (RBC) [Entitic mass] 28.7 pg 27.0-32.[address] [facility] Nucleated RBC/100 WBC (Bld) [Ratio] 0 % 0-[address] [facility] MCHC Auto (RBC) [Mass/Vol]Or dered By: Shira Oglesby on 04-24-2023 MCHC (RBC) [Mass/Vol] 32.9 g/dL 32-36 [facility] No Panel InformationOrdered By: Shira Oglesby on 04-24-2023 Estimated Creatinine Clearance Calc 37.88 ml/min [facility] Estimated GFR (MDRD) Amer 54 mL/min >[address] [facility] Comment on above: GFR Calc Estimated GFR (MDRD) Non-Af Amer 45 mL/min >[address] [facility] Comment on above: Non- GFR Calc Troponin I High Sensitivity 9 pg/mL 3.0-54.[address] [facility] Comment on above: Please Note: New [place] t Units and Gender Specific Reference Ranges. For more information see Policy Stat Procedure Fabens High Sensitivity Troponin (TNIH) and attachments. Platelets bldOrdered By: Karyn Oglesby on 04-24-2023 Platelets (Bld) [#/Vol] 406 10*3/uL 150-[address] [facility] Serum or plasma albumin virgie urement (mass/volume)Ordered By: Shira Oglesby on 04-24-2023 Albumin [Mass/Vol] 4.3 g/dL 3.2-5.0 [facility] Serum or plasma calcium virgie urement (mass/volume)Ordered By: Shira Oglesby on 04-24-2023 Calcium [Mass/Vol] 10.1 mg/dL 8.5-10.1 [facility] Serum or plasma creatinine m easurement (mass/volume)Ordered By: Shira Oglesby on 04-24-2023 Creatinine [Mass/Vol] 1.29 mg/dL 0.55-1.02 [facility] Comment on above: The validity of the calculated GFR & GFRAA in patients over 70 years has not been determined. Clinical correlation is essential. Serum or plasma urea nitroge n measurement (mass/volume)Ordered By: Shira Oglesby on 04-24-2023 Urea nitrogen [Mass/Vol] 21 mg/dL 7-[address] [facility] Thin prep Papanicolaou smear with manual screeningOrdered By: Shira Oglesby on 04-24-2023 Thin prep Papanicolaou smear with manual screening 42 U/L 15-[address] [facility] Thin prep Papanicolaou smear with manual screening 14 5-[address] [facility] CNPNon 03-25-2023 MELODYN Telephone (AGCARDPORyne) VISHAL GEORGE ([id number]) 1960 F Date Time Provider Department 03/25/23 MELISSA KOROMA During your visit today, we recorded the following information about you: Melissa Koroma APRN.MELODY 03/25/2023 10:19 AM Signed I spoke with [facility] regarding the denial of the Lifevest, she does not meet [facility]'s criteria for the Lifevest, as an ICD would need to be indicated for the Lifevest to be covered, currently ICD not indicated until after 90 days of GDMT. Unfortunately, the Lifevest has been declined. 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 Take as needed for 3-4 lb weight gain in 1-2 days. - carvedilol (COREG) 12.5 mg tablet Take 1 tablet by mouth twice daily with meals. - aspirin 81 mg chewable tablet Chew 1 tablet by mouth once daily. - sacubitril-valsartan (ENTRESTO) 24-26 mg tablet Take 1 tablet by mouth twice daily. - empagliflozin (JARDIANCE) 10 mg tablet Take 1 tablet by mouth once daily. - atorvastatin (LIPITOR) 80 mg tablet Take 1 tablet by mouth daily at bedtime. - buPROPion SR (WELLBUTRIN SR) 150 mg 12 hr tablet Take 1 tablet by mouth twice daily. - clopidogrel (PLAVIX) 75 mg tablet Take 1 tablet by mouth once daily. - spironolactone (ALDACTONE) 25 mg tablet Take 1 tablet by mouth twice daily. - nicotine (NICODERM) 7 mg/24 hr Apply 1 Patch as directed every 24 hours for 28 days. - sucralfate (CARAFATE) 1 gram tablet Take one tablet by mouth before meals and at bedtime as needed - ZINC ORAL Take by mouth once daily. - ascorbic acid (VITAMIN C ORAL) Take 500 mg by mouth once daily. - sertraline (ZOLOFT) 25 mg tablet Take 25 mg by mouth once daily. For 30 days - venlafaxine ER (EFFEXOR XR) 150 mg 24 hr capsule Take 150 mg by mouth once daily. - busPIRone (BUSPAR) 10 mg tablet Take 10 mg by mouth three times daily. - cholecalciferol (VITAMIN D3) 5,000 unit tab Take 1,000 Units by mouth once daily. - cyanocobalamin (VITAMIN B-12) 1,000 mcg tab Take 1,000 mcg by mouth once daily. - MULTIVIT-MINERALS/FE RROUS FUM (MULTI VITAMIN ORAL) Take by mouth once daily. - pantoprazole DR (PROTONIX) 40 mg tablet Take 40 mg by mouth once daily. Problem List As Of Date 03/25/2023 Noted Resolved Coronary artery disease involving [place] howard*09/10/2012 Unspecified essential hypertension [I10] 09/10/2012 08/29/2016 PMDD (premenstrual dysphoric disorder) [F32.81] 09/10/2012 07/06/2015 Perimenopausal [N95.1] 09/10/2012 07/06/2015 Screening for intestinal cancer [Z12.10] 10/02/2012 Gastroparesis [K31.84] 08/29/2016 Hyperlipidemia [E78.5] 08/29/2016 Hypertension [I10] 08/29/2016 Non morbid obesity [E66.9] 08/29/2016 Nicotine use disorder, F17.2 [F17.200] 02/26/2023 Acute on chronic combined systolic and diastoli*02/26/2023 Tobacco abuse [Z72.0] 02/26/2023 NSVT (nonsustained ventricular tachycardia) (HC*02/26/2023 Non-ischemic cardiomyopathy (HCC) [I42.8] 02/27/2023 Chronic obstructive pulmonary disease (HCC) [J4*09/21/2022 History of appendectomy [Z90.49] 02/27/2023 History of cholecystectomy [Z90.49] 02/27/2023 History of percutaneous coronary intervention [*02/27/2023 Chronic systolic heart failure (HCC) [I50.22] 02/28/2023 Ischemic cardiomyopathy [I25.5] 02/28/2023 ETOH abuse [F10.10] 02/28/2023 Encounter Status:Closed by MELISSA KOROMA on 03/25/23 [facility] MEÑO Telephone (AGCARDPOB) VISHAL GEORGE ([id number]) 1960 F Date Time Provider Department 03/25/23 VINAY LOVELL During your visit today, we recorded the following information about you: Alessandra Damon RN 03/25/2023 3:11 PM Signed Pt calls to report she saw Dr Reeves who is asking if Life Vest is needed ? Per Dr Lovell's 02/26/23 consult it was not. She reports she only knows of the one episode of arrhythmia. Life Vest was ordered on 02/28/23. Pt reports her insurance will not pay for the vest. KARIN Galvan RN 03/26/2023 8:17 AM Signed Vinay Lovell MD You; Melissa Koroma APRN.GRAB JACK WORKER 11 hours ago (8:37 PM) I did not feel that a LifeVest was indicated Alessandra Damon RN 03/26/2023 8:17 AM Signed Pt notified and voices understanding. KARIN Galvan RN 03/26/2023 8:32 AM Signed I faxed this note to Dr Reeves's office at [phone]. Alessandra Damon RN Allergies As of Date: 03/25/2023 Noted Allergy Reaction ADHESIVE TAPE (ROSINS) 09/10/2012 2 - Rash Date Reviewed: 03/07/2023 Reviewed by: Shay Teresa APRN.GRAB JACK WORKER - Fully Assessed Reason for Visit: Patient Question [0543] Prescriptions as of 03/26/2023 - furosemide (LASIX) 20 mg tablet Take 1 tablet by mouth as needed. Take as needed for 3-4 lb weight gain in 1-2 days. - carvedilol (COREG) 12.5 mg tablet Take 1 tablet by mouth twice daily with meals. - aspirin 81 mg chewable tablet Chew 1 tablet by mouth once daily. - sacubitril-valsartan (ENTRESTO) 24-26 mg tablet Take 1 tablet by mouth twice daily. - empagliflozin (JARDIANCE) 10 mg tablet Take 1 tablet by mouth once daily. - atorvastatin (LIPITOR) 80 mg tablet Take 1 tablet by mouth daily at bedtime. - buPROPion SR (WELLBUTRIN SR) 150 mg 12 hr tablet Take 1 tablet by mouth twice daily. - clopidogrel (PLAVIX) 75 mg tablet Take 1 tablet by mouth once daily. - spironolactone (ALDACTONE) 25 mg tablet Take 1 tablet by mouth twice daily. - nicotine (NICODERM) 7 mg/24 hr Apply 1 Patch as directed every 24 hours for 28 days. - sucralfate (CARAFATE) 1 gram tablet Take one tablet by mouth before meals and at bedtime as needed - ZINC ORAL Take by mouth once daily. - ascorbic acid (VITAMIN C ORAL) Take 500 mg by mouth once daily. - sertraline (ZOLOFT) 25 mg tablet Take 25 mg by mouth once daily. For 30 days - venlafaxine ER (EFFEXOR XR) 150 mg 24 hr capsule Take 150 mg by mouth once daily. - busPIRone (BUSPAR) 10 mg tablet Take 10 mg by mouth three times daily. - cholecalciferol (VITAMIN D3) 5,000 unit tab Take 1,000 Units by mouth once daily. - cyanocobalamin (VITAMIN B-12) 1,000 mcg tab Take 1,000 mcg by mouth once daily. - MULTIVIT-MINERALS/FE RROUS FUM (MULTI VITAMIN ORAL) Take by mouth once daily. - pantoprazole DR (PROTONIX) 40 mg tablet Take 40 mg by mouth once daily. Problem List As Of Date 03/25/2023 Noted Resolved Coronary artery disease involving [place] howard*09/10/2012 Unspecified essential hypertension [I10] 09/10/2012 08/29/2016 PMDD (premenstrual dysphoric disorder) [F32.81] 09/10/2012 07/06/2015 Perimenopausal [N95.1] 09/10/2012 07/06/2015 Screening for intestinal cancer [Z12.10] 10/02/2012 Gastroparesis [K31.84] 08/29/2016 Hyperlipidemia [E78.5] 08/29/2016 Hypertension [I10] 08/29/2016 Non morbid obesity [E66.9] 08/29/2016 Nicotine use disorder, F17.2 [F17.200] 02/26/2023 Acute on chronic combined systolic and diastoli*02/26/2023 Tobacco abuse [Z72.0] 02/26/2023 NSVT (nonsustained ventricular tachycardia) (HC*02/26/2023 Non-ischemic cardiomyopathy (HCC) [I42.8] 02/27/2023 Chronic obstructive pulmonary disease (HCC) [J4*09/21/2022 History of appendectomy [Z90.49] 02/27/2023 History of cholecystectomy [Z90.49] 02/27/2023 History of percutaneous coronary intervention [*02/27/2023 Chronic systolic heart failure (HCC) [I50.22] 02/28/2023 Ischemic cardiomyopathy [I25.5] 02/28/2023 ETOH abuse [F10.10] 02/28/2023 Encounter Status:Closed by ALESSANDRA DAMON on 03/26/23 [facility] [place] 03-07-[address] [facility] VSIHAL GEORGE ([id number]) 1960 F Date Time Provider Department 03/07/23 10:00 AM SHAY TERESA [facility] During your visit today, we recorded the following information about you: Pulse Blood pressure Weight 86/minute 116/64 69.9 kg Shay Teresa APRN.MELODY 03/07/2023 11:18 AM [facility] OUTPATIENT VISIT DATE March 07, 2023 OUTPATIENT VISIT TYPE NEW PRIMARY CARE PHYSICIAN: Ricki Griffin, PHOTOGRAPHIC SPOTTER, GRAB JACK WORKER REFERRING PHYSICIAN: No referring provider defined for this encounter. CHIEF COMPLAINT: Patient presents with: Breathing Problem Heart Failure HISTORY OF PRESENT ILLNESS: Vishal George is a 62 year old female who presents today for an initial visit to the Heart Failure Clinic. The patient has not yet established with cardiology. Past medical history is significant for systolic heart failure with ejection fraction 20%, nonsustained ventricular tachycardia, hypertension, hypercholesterolemia , dilated cardiomyopathy, chronic obstructive pulmonary disease, s/p [facility] with stent placement on 02/25 revealing [...] of ventricular tachycardia. She was transferred to [facility] for possible ICD placement. Electrophysiology was consulted. [...] Class: II Stage: C heart failure Vishal George is a 62 year-old female who presents [...] BP monitoring 5. Coronary artery disease involving [place] coronary artery of [place] heart without angina pectoris - ICD9: 414.01, ICD10: I25.10 -stable -s/p C on 02/25 -on aspiri (more content not included)... Normal [facility] Basic metabolic 2000 panelon 03-01-2023 Anion gap [Moles/Vol] 12 mmol/L Normal 9-18 [facility] Comment on above: Order Comment: Speci men Type: BLOOD SPECIMEN Ordering Facility: [facility] Address: [address] [place] [address] Performed By: #### 2 4321-2, #### [facility] CLIA [id number] [address] [place] [address] [place] Calcium [Mass/Vol] 9.8 mg/dL Normal 8.5-10.2 [facility] Comment on above: Order Comment: Speci men Type: BLOOD SPECIMEN Ordering Facility: [facility] Address: [address] [place] [address] Performed By: #### 2 2, #### [facility] CLIA [id number] [address] [place] [address] [place] Chloride [Moles/Vol] 100 mmol/L Normal 97-105 [facility] Comment on above: Order Comment: Speci men Type: BLOOD SPECIMEN Ordering Facility: [facility] Address: [address] [place] [address] Performed By: #### 2 2, #### [facility] CLIA [id number] [address] [place] [address] [place] CO2 [Moles/Vol] 24 mmol/L Normal 22-30 [facility] Comment on above: Order Comment: Speci men Type: BLOOD SPECIMEN Ordering Facility: [facility] Address: [address] [address] Performed By: #### 2 2, #### [facility] CLIA [id number] [address] [place] [address] [place] Creatinine [Mass/Vol] 0.69 mg/dL Normal 0.58-0.96 [facility] Comment on above: Order Comment: Speci men Type: BLOOD SPECIMEN Ordering Facility: [facility] Address: [address] [place] [address] Performed By: #### 2 4320-, #### [facility] CLIA [id number] [address] [place] [address] [place] ESTIMATED GLOMERULAR FILTRATION RATE 99 mL/min/1.73m??? Normal >=60 [facility] Comment on above: Order Comment: Juan Manuel cxo Type: BLOOD SPECIMEN Ordering Facility: [facility] Address: [address] [place] [address] Result Comment: Elenita mated Glomerular Filtration Rate (eGFR) is calculated using the 2020 CKD-EPI creatinine equation. This equation utilizes serum creatinine, sex, and age as parameters. The creatinine assay has traceable calibration to isotope dilution-mass spectrometry. Refer to KDIGO guidelines for clinical interpretation. In patients with unstable renal function, e.g. those with acute kidney injury, the eGFR may not accurately reflect actual GFR. Performed By: #### 2 43210-15, #### [facility] CLIA [id number] [address] [place] [address] [place] Glucose [Mass/Vol] 100 mg/dL High 74-99 [facility] Comment on above: Order Comment: Juan Manuel cox Type: BLOOD SPECIMEN Ordering Facility: [facility] Address: [address] [place] [address] Result Comment: The [place] Diabetes Association (ADA) provides guidance for cutoff values for fasting glucose and random glucose. The ADA defines fasting as no caloric intake for at least 8 hours. Fasting plasma glucose results between 100 to 125 mg/dL indicate increased risk for diabetes (prediabetes). Fasting plasma glucose results greater than or equal to 126 mg/dL meet the criteria for diagnosis of diabetes. In the absence of unequivocal hyperglycemia, results should be confirmed by repeat testing. In a patient with classic symptoms of hyperglycemia or hyperglycemic crisis, random plasma glucose results greater than or equal to 200 mg/dL meet the criteria for diagnosis of diabetes. Reference: Standards of Medical Care in Diabetes 2016, [place] Diabetes Association. Diabetes Care. 2016.39(Suppl 1). Performed By: #### 2 432-, #### [facility] CLIA [id number] [address] [place] [address] [place] Potassium [Moles/Vol] 4.1 mmol/L Normal 3.7-5.1 [facility] Comment on above: Order Comment: Juan Manuel cox Type: BLOOD SPECIMEN Ordering Facility: [facility] Address: [address] [address] Performed By: #### 2 4322, #### [facility] CLIA [id number] [address] Sodium [Moles/Vol] 136 mmol/L Normal 136-144 [facility] Comment on above: Order Comment: Francescoi men Type: BLOOD SPECIMEN Ordering Facility: [facility] Address: [address] [place] [address] Performed By: #### 2 4320-11, #### [facility] CLIA [id number] [address] [facility] Urea nitrogen [Mass/Vol] 15 mg/dL Normal 7-21 [facility] Comment on above: Order Comment: Francescoi men Type: BLOOD SPECIMEN Ordering Facility: [facility] Address: [address] [place] [address] Performed By: #### 2 4320-11, #### [facility] CLIA [id number] [address] [facility] CNDSon 03-01-2023 CN HNO ID: [id number] Author: Oly Guzmán DO Service: Hospital Medicine Author Type: Physician Type: Discharge Summary Filed: 03/01/2023 1:20 PM Note Text: DISCHARGE SUMMARY PATIENT NAME: Vishal George Code Status: Full Code Highest Readmission Risk Score: 11 The 30 day readmissions risk score is derived from an internally validated risk model which evaluates patient level characteristics, utilization history, medication orders and lab results up until the day of discharge. Patients with a score of 40 or above are considered highest risk for readmission. Specific patient level drivers will be listed at the bottom of the summary. Admission Information Admission Information ADMIT DATE: 02/26/2023 DISCHARGE DATE: 03/01/2023 MY DOCTORS AND MEDICAL TEAM: My Main Hospital Doctor: Oly Guzmán DO Primary Care Provider: Ricki Griffin, PHOTOGRAPHIC SPOTTER, GRAB JACK WORKER My Medical Team Members: Treatment Team: Attending Provider: Oly Guzmán DO Primary Service: SHIV GILLESPIE Consulting: Lenka Magana MD MY CONDITION AT DISCHARGE: Stable REASON I WAS IN THE HOSPITAL: Evaluation due to episode of nonsustained vtach SUMMARY OF WHAT HAPPENED WHILE I WAS IN THE HOSPITAL: Patient was admitted for Evaluation due to episode of nonsustained vtach. This is a 62-year-old female with known congestive heart failure systolic and diastolic, CAD status post stent who presented to [facility] for severe nausea and vomiting and initially [...] with a plan to transition her to Entresto. The patient was a planned to be discharged from [place], but then she had a 34 run of V. tach/wide-complex tachycardia so decision was to transfer her to [facility] for ICD evaluation as that was being considered there. EP recommending life vest and will need repeat ECHO in 3 months. Patient was evaluated for life vest, insurance authorization is currently pending(anticipated in 1-2 days and will be delivered to the patient's home). General cardiology consulted and medicine was further optimized. She is medically ready for discharge home with follow up with her PCP and delivery sales worker. OTHER PROBLEMS/DIAGNOSIS: Principal Problem: NSVT (nonsustained ventricular tachycardia) (HCC) Active Problems: Coronary artery disease involving [place] coronary artery Hyperlipidemia Hypertension Nicotine use disorder, F17.2 Acute on chronic combined systolic and diastolic CHF (congestive heart failure) (HCC) Tobacco abuse Non-ischemic cardiomyopathy (HCC) History of percutaneous coronary intervention Chronic systolic heart failure (HCC) Ischemic cardiomyopathy ETOH abuse Resolved Problems: * No resolved hospital problems. * OPERATIONS PERFORMED WHILE IN THE HOSPITAL: None IMPORTANT TEST/PROCEDURES: No procedures performed TEST RESULTS NOT AVAILABLE AT THIS TIME: No pending results Discharge Disposition Home/Self Care Activity When You Leave the Hospital Activity Resume pre-hospital activity Diet Instructions Diet Less than 2 gram sodium, less than 2 liters of fluid in a day For Pain When You Leave the Hospital Pain Control Use acetaminophen (Tylenol) as recommended on the bottle. Wound/Surgical Site Care Wound/Surgical Site care No wounds Return to Work Return to Work Call Your Doctor If Call your Doctor Follow up with cardiology and PCP Additional Provider to Provider Information: This is a 62-year-old female with known congestive heart failure systolic and diastolic, CAD status post stent who presented to [facility] for severe nausea and vomiting and initially [...] with a plan to transition her to Entresto. The patient was a planned to be discharged from [place], but then she had a 34 run (more content not included)... Normal [facility] ([facility]) VISHAL GEORGE ([id number]) 1960 F Date Time Provider Department 03/01/23 INNA POOLE [facility] During your visit today, we recorded the following information about you: Inna Poole RN 03/01/2023 2:13 PM Signed Order received for OP follow up with the [facility] on 02/28/23. Met with patient at bedside. Instructed patient on the purpose of the [facility]. Provided with Zone sheet. Patient lives in [place] and prefers to follow up at the [facility]. Notified the Heart Failure Nurse Navigator of patient's request. She will contact the [facility]. Allergies As of Date: 03/01/2023 Noted Allergy Reaction ADHESIVE TAPE (ROSINS) 09/10/2012 2 - Rash Date Reviewed: 02/28/2023 Reviewed by: Héctor Oliver RN - Fully Assessed Reason for Visit: Orders [681] ak [facility] appt contact [Other] Prescriptions as of 03/01/2023 - carvedilol (COREG) 6.25 mg tablet Take 1 tablet by mouth twice daily with meals. - aspirin 81 mg chewable tablet Chew 1 tablet by mouth once daily. - sacubitril-valsartan (ENTRESTO) 24-26 mg tablet Take 1 tablet by mouth twice daily. - empagliflozin (JARDIANCE) 10 mg tablet Take 1 tablet by mouth once daily. - atorvastatin (LIPITOR) 80 mg tablet Take 1 tablet by mouth daily at bedtime. - furosemide (LASIX) 20 mg tablet Take 1 tablet by mouth once daily. - buPROPion SR (WELLBUTRIN SR) 150 mg 12 hr tablet Take 1 tablet by mouth twice daily. - clopidogrel (PLAVIX) 75 mg tablet Take 1 tablet by mouth once daily. - spironolactone (ALDACTONE) 25 mg tablet Take 1 tablet by mouth twice daily. - nicotine (NICODERM) 7 mg/24 hr Apply 1 Patch as directed every 24 hours for 28 days. - sucralfate (CARAFATE) 1 gram tablet Take one tablet by mouth before meals and at bedtime as needed - ZINC ORAL Take by mouth once daily. - ascorbic acid (VITAMIN C ORAL) Take 500 mg by mouth once daily. - sertraline (ZOLOFT) 25 mg tablet Take 25 mg by mouth once daily. For 30 days - venlafaxine ER (EFFEXOR XR) 150 mg 24 hr capsule Take 150 mg by mouth once daily. - busPIRone (BUSPAR) 10 mg tablet Take 10 mg by mouth three times daily. - cholecalciferol (VITAMIN D3) 5,000 unit tab Take 1,000 Units by mouth once daily. - cyanocobalamin (VITAMIN B-12) 1,000 mcg tab Take 1,000 mcg by mouth once daily. - MULTIVIT-MINERALS/FE RROUS FUM (MULTI VITAMIN ORAL) Take by mouth once daily. - pantoprazole DR (PROTONIX) 40 mg tablet Take 40 mg by mouth once daily. Facility-Administere d Medications as of 03/01/2023 - furosemide 20 mg tab(s) (LASIX) - sacubitril-valsartan 24-26 mg 1 tablet (ENTRESTO) - busPIRone 10 mg tab(s) (BUSPAR) - sucralfate 1 g tab(s) (CARAFATE) - clopidogrel 75 mg tab(s) (PLAVIX) - pantoprazole DR 40 mg tab(s) (PROTONIX) - sertraline 25 mg tab(s) (ZOLOFT) - venlafaxine ER 150 mg cap(s) (EFFEXOR XR) - NaCl 0.9% iv flush bag - aluminum-magnesium hydroxide-simethicon e 200-200-20 mg/5 mL 30 mL - ondansetron 4 mg tab(s) (ZOFRAN) - ondansetron (PF) 4 mg injection (ZOFRAN) - acetaminophen 650 mg tab(s) (TYLENOL) - buPROPion SR 150 mg tab(s) (ZYBAN SR; WELLBUTRIN SR) - aspirin 81 mg chewable tab(s) - carvedilol 6.25 mg tab(s) (COREG) - spironolactone 25 mg tab(s) (ALDACTONE) - empagliflozin 10 mg tab(s) (JARDIANCE) - atorvastatin 80 mg tab(s) (LIPITOR) Problem List As Of Date 03/01/2023 Noted Resolved Coronary artery disease involving [place] howard*09/10/2012 Unspecified essential hypertension [I10] 09/10/2012 08/29/2016 PMDD (premenstrual dysphoric disorder) [F32.81] 09/10/2012 07/06/2015 Perimenopausal [N95.1] 09/10/2012 07/06/2015 Screening for intestinal cancer [Z12.10] 10/02/2012 Gastroparesis [K31.84] 08/29/2016 Hyperlipidemia [E78.5] 08/29/2016 Hypertension [I10] 08/29/2016 Non morbid obesity [E66.9] 08/29/2016 Nicotine use disorder, F17.2 [F17.200] 02/26/2023 Acute on chronic combined systolic and diastoli*02/26/2023 Tobacco abuse [Z72.0] 02/26/2023 NSVT (nonsustained ventricular tachycardia) (HC*02/26/2023 Non-ischemic cardiomyopathy (HCC) [I42.8] 02/27/2023 Chronic obstructive pulmonary disease (HCC) [J4*09/21/2022 History of appendectomy [Z90.49] 02/27/2023 History of cholecystectomy [Z90.49] 02/27/2023 History of percutaneous coronary intervention [*02/27/2023 Chronic systolic heart failure (HCC) [I50.22] 02/28/2023 Ischemic cardiomyopathy [I25.5] 02/28/2023 ETOH abuse [F10.10] 02/28/2023 Encounter Status:Closed by INNA POOLE on 03/01/23 [facility] CNPN Telephone (AKEV) VISHAL GEORGE ([id number]) 1960 F Date Time Provider Department 03/01/23 TAYLOR GORDILLO During your visit today, we recorded the following information about you: Taylor Gordillo APRN.IV THERAPY NURSE 03/01/2023 3:29 PM Signed Patient seen by HF Clinic nurse to discuss post-discharge follow-up in HF Clinic. Patient prefers [place] [facility], due to location. Patient information and plan for discharge home today sent to Eva Macias CNP ([place] [facility]). 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 - aspirin 81 mg chewable tablet Chew 1 tablet by mouth once daily. - sacubitril-valsartan (ENTRESTO) 24-26 mg tablet Take 1 tablet by mouth twice daily. - empagliflozin (JARDIANCE) 10 mg tablet Take 1 tablet by mouth once daily. - atorvastatin (LIPITOR) 80 mg tablet Take 1 tablet by mouth daily at bedtime. - furosemide (LASIX) 20 mg tablet Take 1 tablet by mouth once daily. - buPROPion SR (WELLBUTRIN SR) 150 mg 12 hr tablet Take 1 tablet by mouth twice daily. - clopidogrel (PLAVIX) 75 mg tablet Take 1 tablet by mouth once daily. - spironolactone (ALDACTONE) 25 mg tablet Take 1 tablet by mouth twice daily. - nicotine (NICODERM) 7 mg/24 hr Apply 1 Patch as directed every 24 hours for 28 days. - sucralfate (CARAFATE) 1 gram tablet Take one tablet by mouth before meals and at bedtime as needed - ZINC ORAL Take by mouth once daily. - ascorbic acid (VITAMIN C ORAL) Take 500 mg by mouth once daily. - sertraline (ZOLOFT) 25 mg tablet Take 25 mg by mouth once daily. For 30 days - venlafaxine ER (EFFEXOR XR) 150 mg 24 hr capsule Take 150 mg by mouth once daily. - busPIRone (BUSPAR) 10 mg tablet Take 10 mg by mouth three times daily. - cholecalciferol (VITAMIN D3) 5,000 unit tab Take 1,000 Units by mouth once daily. - cyanocobalamin (VITAMIN B-12) 1,000 mcg tab Take 1,000 mcg by mouth once daily. - MULTIVIT-MINERALS/FE RROUS FUM (MULTI VITAMIN ORAL) Take by mouth once daily. - pantoprazole DR (PROTONIX) 40 mg tablet Take 40 mg by mouth once daily. Facility-Administere d Medications as of 03/01/2023 - furosemide 20 mg tab(s) (LASIX) - sacubitril-valsartan 24-26 mg 1 tablet (ENTRESTO) - busPIRone 10 mg tab(s) (BUSPAR) - sucralfate 1 g tab(s) (CARAFATE) - clopidogrel 75 mg tab(s) (PLAVIX) - pantoprazole DR 40 mg tab(s) (PROTONIX) - sertraline 25 mg tab(s) (ZOLOFT) - venlafaxine ER 150 mg cap(s) (EFFEXOR XR) - NaCl 0.9% iv flush bag - aluminum-magnesium hydroxide-simethicon e 200-200-20 mg/5 mL 30 mL - ondansetron 4 mg tab(s) (ZOFRAN) - ondansetron (PF) 4 mg injection (ZOFRAN) - acetaminophen 650 mg tab(s) (TYLENOL) - buPROPion SR 150 mg tab(s) (ZYBAN SR; WELLBUTRIN SR) - aspirin 81 mg chewable tab(s) - carvedilol 6.25 mg tab(s) (COREG) - spironolactone 25 mg tab(s) (ALDACTONE) - empagliflozin 10 mg tab(s) (JARDIANCE) - atorvastatin 80 mg tab(s) (LIPITOR) Problem List As Of Date 03/01/2023 Noted Resolved Coronary artery disease involving [place] howard*09/10/2012 Unspecified essential hypertension [I10] 09/10/2012 08/29/2016 PMDD (premenstrual dysphoric disorder) [F32.81] 09/10/2012 07/06/2015 Perimenopausal [N95.1] 09/10/2012 07/06/2015 Screening for intestinal cancer [Z12.10] 10/02/2012 Gastroparesis [K31.84] 08/29/2016 Hyperlipidemia [E78.5] 08/29/2016 Hypertension [I10] 08/29/2016 Non morbid obesity [E66.9] 08/29/2016 Nicotine use disorder, F17.2 [F17.200] 02/26/2023 Acute on chronic combined systolic and diastoli*02/26/2023 Tobacco abuse [Z72.0] 02/26/2023 NSVT (nonsustained ventricular tachycardia) (HC*02/26/2023 Non-ischemic cardiomyopathy (HCC) [I42.8] 02/27/2023 Chronic obstructive pulmonary disease (HCC) [J4*09/21/2022 History of appendectomy [Z90.49] 02/27/2023 History of cholecystectomy [Z90.49] 02/27/2023 History of percutaneous coronary intervention [*02/27/2023 Chronic systolic heart failure (HCC) [I50.22] 02/28/2023 Ischemic cardiomyopathy [I25.5] 02/28/2023 ETOH abuse [F10.10] 02/28/2023 Encounter Status:Closed by TAYLOR GORDILLO on 03/01/23 [facility] CONSULT PROGon 03-01-2023 CONSULT PROG HNO ID: [id number] Author: Shellie Woods APRN.GRAB JACK WORKER Service: Cardiovascular Medicine Author Type: Nurse Practitioner Type: Consult Progress Note Filed: 03/01/2023 11:00 AM Note Text: CARDIOLOGY CONSULT PROGRESS NOTE CARDIOLOGY ATTENDING: Dr. Ryan/ Dr. Reeves is outpatient delivery sales worker Date and Reason for initial consult: CHF management INTERVAL HISTORY: Patient with history of ischemic and nonischemic cardiomyopathy, history of CAD with previous PCI in 2006, and recent PCI to RCA few days ago. She has history of chronic tobacco and alcohol abuse, she quit smoking last Saturday, apparently quit drinking 3 weeks ago. She has history of COPD, hypertension, and hyperlipidemia. She developed episodes of nausea and diaphoresis as well as exertional dyspnea previously, subsequently had cardiac cath as above. She was transferred here for concern for nonsustained VT reportedly a 34 beat run of NSVT, recently had an echocardiogram performed at [place] with findings of EF of 15%. She was transferred here and evaluated by EP Dr. Lovell, she currently does not meet criteria for an ICD, she is recommended for LifeVest at discharge per EP team. Also recommended for GDMT, after minimum of 3 months of optimal medical therapy, if EF is less than or equal to 35% she should be considered for ICD. Currently she is not fluid volume overloaded, she is currently on optimal medical therapy carvedilol, Jardiance, Aldactone, and Entresto. She is euvolemic and currently on Lasix 20 mg daily. Reviewed heart failure core measures with patient 2 g sodium diet, 2000 cc fluid restrictions and daily weight, spoke to her about avoiding highly processed foods, and convenience foods to avoid. She is feeling improved, and anxious to go home, she is currently awaiting LifeVest fitting. PERTINENT ROS: She denies chest pain, palpitations, shortness of breath MEDICATIONS: Current Facility-Administere d Medications Medication Dose Route Frequency busPIRone 10 mg tab(s) (BUSPAR) 10 mg ORAL TID sucralfate 1 g tab(s) (CARAFATE) 1 g ORAL AC and HS clopidogrel 75 mg tab(s) (PLAVIX) 75 mg ORAL DAILY pantoprazole DR 40 mg tab(s) (PROTONIX) 40 mg ORAL DAILY sertraline 25 mg tab(s) (ZOLOFT) 25 mg ORAL DAILY venlafaxine ER 150 mg cap(s) (EFFEXOR XR) 150 mg ORAL DAILY NaCl 0.9% iv flush bag 20 mL INTRAVENOUS PRN aluminum-magnesium hydroxide-simethicon e 200-200-20 mg/5 mL 30 mL 30 mL ORAL DAILY PRN ondansetron 4 mg tab(s) (ZOFRAN) 4 mg ORAL q 6 H PRN Or ondansetron (PF) 4 mg injection (ZOFRAN) 4 mg INTRAVENOUS q 6 H PRN acetaminophen 650 mg tab(s) (TYLENOL) 650 mg ORAL q 6 H PRN buPROPion SR 150 mg tab(s) (ZYBAN SR; WELLBUTRIN SR) 150 mg ORAL BID aspirin 81 mg chewable tab(s) 81 mg ORAL DAILY carvedilol 6.25 mg tab(s) (COREG) 6.25 mg ORAL BID w MEALS spironolactone 25 mg tab(s) (ALDACTONE) 25 mg ORAL BID empagliflozin 10 mg tab(s) (JARDIANCE) 10 mg ORAL DAILY atorvastatin 80 mg tab(s) (LIPITOR) 80 mg ORAL AT BEDTIME furosemide 20 mg tab(s) (LASIX) 20 mg ORAL DAILY sacubitril-valsartan 24-26 mg 1 tablet (ENTRESTO) 1 tablet ORAL BID PHYSICAL EXAM: Vital Signs 03/01/23 0007 03/01/23 0400 03/01/23 0600 03/01/23 0716 BP: 110/62 128/86 137/79 Pulse: 61 72 74 Resp: 18 18 18 Temp: 36.4 ?C (97.5 ?F) 36.3 ?C (97.3 ?F) 36.8 ?C (98.2 ?F) TempSrc: Oral Oral Oral SpO2: 97% 97% 94% Weight: 71.5 kg (157 lb 10.1 oz) Height: Temp (24hrs), Av.6 ?C (97.8 ?F), Min:36.3 ?C (97.3 ?F), Max:36.9 ?C (98.4 ?F) Intake/Output: No intake or output data in the 24 hours ending 03/01/23 1023 Oxygen therapy: RA Admit Weight: 162 lbs Gen: AANDO x 3, NAD Neck: no jugular venous distention Cardiac: S1, S2+ RRR Resp: clear to auscultation bilaterally with inspiratory and expiratory wheezes throughout Abd: Soft, non-tender. Bowel sounds normal Ext: no edema, moves all extremities with no apparent weakness Tele: normal sinus rhythm with PVCS, 1 burst of ?SVT approximately 25 beats, patient asymptomatic? A. tach? Labs: Troponin T <0.010 08/22/2016 Recent Labs 02/26/23 1736 WBC 8.04 HB 15.0 HCT 44.9 PLT 284 Recent Labs 03/01/23 0442 02/28/23 0425 02/27/23 0154 NA 136 136 137 K 4.1 3.9 4.0 CHLOR 100 99 100 CO2 24 25 25 BUN 15 14 12 CREAT 0.69 0.72 0.65 GLUC 100* 105* 108* No results found for this basename: chol,hdl,ldl DATA: Echocardiogram: OS TTE, 02/21/2023: Severe LV systolic dysfunction with ejection fraction 15% Coronary angiography: OSH Left Heart Catheterization, 02/25/2023: 50% stenosis in the LAD. Less than 30% stenosis left circumflex artery. 80% in-stent restenosis in the mid RCA status post PCI ASSESSMENT AND PLAN: 1. Cardiomyopathy- Likely ischemic and nonischemic with chronic systolic heart failure/NSVT: Given previous history of alcohol abuse, acute cardiomyopathy is combination of ischemic and nonischemic in etiology. She is recommended for opt (more content not included)... [facility] Magnesium SerPl-mCncon 03-01 Magnesium [Mass/Vol] 2.1 mg/dL Normal 1.7-2.3 [facility] Comment on above: Order Comment: Speci men Type: BLOOD SPECIMEN Ordering Facility: [facility] Address: [address] [place] [address] Performed By: #### 2 4321-2, 03303-1 #### [facility] CLIA [id number] [address] [place] NURSING PROGon 03-01-2023 NURSING PROG HNO ID: [id number] Author: Inna Poole RN Service: Heart Failure Clinic Author Type: Registered Nurse Type: Nursing Progress Note Filed: 03/01/2023 2:08 PM Note Text: Order received for OP follow up with the [facility] on 02/28/23. Met with patient at bedside. Instructed patient on the purpose of the [facility]. Provided with Zone sheet. Patient lives in [place] and prefers to follow up at the [facility] in [place]. Notified Heart Failure nurse Navigator. She will contact [facility]. [facility] Basic metabolic 2000 panelon 02-28-2023 Anion gap [Moles/Vol] 12 mmol/L Normal 9-18 [facility] Comment on above: Order Comment: Speci men Type: BLOOD SPECIMEN Ordering Facility: [facility] Address: [place] [address] Performed By: #### 5 8410-2 #### [facility] CLIA [id number] [address] [place] Calcium [Mass/Vol] 9.7 mg/dL Normal 8.5-10.2 [facility] Comment on above: Order Comment: Speci men Type: BLOOD SPECIMEN Ordering Facility: [facility] Address: [address] [place] [address] Performed By: #### 5 8410-2 #### [facility] CLIA [id number] 1 [place] [address] [place] Chloride [Moles/Vol] 99 mmol/L Normal 97-105 [facility] Comment on above: Order Comment: Speci men Type: BLOOD SPECIMEN Ordering Facility: [facility] Address: [address] [place] [address] Performed By: #### 5 8410-2 #### [facility] CLIA [id number] [address] CO2 [Moles/Vol] 25 mmol/L Normal 22-30 [facility] Comment on above: Order Comment: Speci men Type: BLOOD SPECIMEN Ordering Facility: [facility] Address: [address] [place] [address] Performed By: #### 5 8410-2 #### [facility] CLIA [id number] [address] Creatinine [Mass/Vol] 0.72 mg/dL Normal 0.58-0.96 [facility] Comment on above: Order Comment: Speci men Type: BLOOD SPECIMEN Ordering Facility: [facility] Address: [address] [place] [address] Performed By: #### 5 8410-2 #### [facility] CLIA [id number] [address] ESTIMATED GLOMERULAR FILTRATION RATE 96 mL/min/1.73m??? Normal >=60 [facility] Comment on above: Order Comment: Speci men Type: BLOOD SPECIMEN Ordering Facility: [facility] Address: [address] [place] [address] Result Comment: Elenita mated Glomerular Filtration Rate (eGFR) is calculated using the 2020 CKD-EPI creatinine equation. This equation utilizes serum creatinine, sex, and age as parameters. The creatinine assay has traceable calibration to isotope dilution-mass spectrometry. Refer to KDIGO guidelines for clinical interpretation. In patients with unstable renal function, e.g. those with acute kidney injury, the eGFR may not accurately reflect actual GFR. Performed By: #### 5 8410-2 #### [facility] CLIA [id number] [address] Glucose [Mass/Vol] 105 mg/dL High 74-99 [facility] Comment on above: Order Comment: Speci men Type: BLOOD SPECIMEN Ordering Facility: [facility] Address: [address] [place] [address] Result Comment: The [place] Diabetes Association (ADA) provides guidance for cutoff values for fasting glucose and random glucose. The ADA defines fasting as no caloric intake for at least 8 hours. Fasting plasma glucose results between 100 to 125 mg/dL indicate increased risk for diabetes (prediabetes). Fasting plasma glucose results greater than or equal to 126 mg/dL meet the criteria for diagnosis of diabetes. In the absence of unequivocal hyperglycemia, results should be confirmed by repeat testing. In a patient with classic symptoms of hyperglycemia or hyperglycemic crisis, random plasma glucose results greater than or equal to 200 mg/dL meet the criteria for diagnosis of diabetes. Reference: Standards of Medical Care in Diabetes 2016, [place] Diabetes Association. Diabetes Care. 2016.39(Suppl 1). Performed By: #### 5 8410-2 #### [facility] CLIA [id number] [address] [facility] Potassium [Moles/Vol] 3.9 mmol/L Normal 3.7-5.1 [facility] Comment on above: Order Comment: Speci men Type: BLOOD SPECIMEN Ordering Facility: [facility] Address: [address] [place] [place] [address] Performed By: #### 5 8410-2 #### [facility] CLIA [id number] [address] Sodium [Moles/Vol] 136 mmol/L Normal 136-144 [facility] Comment on above: Order Comment: Speci men Type: BLOOD SPECIMEN Ordering Facility: [facility] Address: [address] [place] [place] [address] Performed By: #### 5 8410-2 #### [facility] CLIA [id number] [address] [place] Urea nitrogen [Mass/Vol] 14 mg/dL Normal 7-21 [facility] Comment on above: Order Comment: Speci men Type: BLOOD SPECIMEN Ordering Facility: [facility] Address: [address] [place] [address] Performed By: #### 5 8410-2 #### [facility] CLIA [id number] [address] [place] CONSULTon 02-28-2023 CONSULT HNO ID: [id number] Author: Anibal Ryan MD Service: Cardiovascular Medicine Author Type: Physician Type: Consults Filed: 02/28/2023 10:45 AM Note Text: CONSULT: CARDIOLOGY SERVICE SERVICE DATE: 02/28/2023 CONSULTING PHYSICIAN: Anibal Ryan PCP: Ricki Griffin, PHOTOGRAPHIC SPOTTER, GRAB JACK WORKER ATTENDING: Oly Guzmán DO REASON FOR CONSULT: congestive heart failure management Subjective CHIEF COMPLAINT: Ventricular tachyarrhythmia (HCC) [I47.20] HISTORY OF PRESENT ILLNESS: Ms. George is a 62 year old female with a history of ischemic and nonischemic, coronary disease status post prior PCI in 2006 and recent PCI few days ago, chronic tobacco and alcohol abuse, COPD, hypertension, hyperlipidemia who was transferred from [facility] for further evaluation of ventricular tachycardia. Patient reports she has a history of coronary disease and underwent PCI to the RCA back in 2006. Unfortunately, she did not subsequently follow-up regularly with a delivery sales worker. He last had preserved LV function as of 2011. For the last few months, patient reports that she was experiencing recurrent episodes of sudden onset diaphoresis with associated nausea along with exertional shortness of breath. As a result, she did establish care with Dr. Reeves and had an echocardiogram performed revealing new onset cardiomyopathy with severe LV dysfunction with ejection fraction 15%. He was admitted to [facility] for further evaluation in light of her ongoing symptoms of diaphoresis, nausea and dyspnea on exertion. Patient underwent cardiac catheterization on February 25, 2023 revealing 50% stenosis in the LAD with 80% in-stent restenosis in the mid RCA for which she had PCI performed. The evening after her PCI, she had a reported 34-week run of nonsustained ventricular tachycardia for which she was otherwise asymptomatic. She was transferred to [facility] for further evaluation. Since admission to hospital, patient has been evaluated by electrophysiology with concern that her episode of NSVT was likely reperfusion arrhythmia. They did recommend consideration of a LifeVest on discharge if she had recurrent episodes of NSVT during her hospital stay. Otherwise, cardiology consulted for further management of her underlying new onset cardiomyopathy. In discussion with the patient, she denies any complaints of chest pain, dyspnea on exertion, orthopnea, paroxysmal nocturnal dyspnea, lower extremity edema, presyncope, syncope, or palpitations. Of note, she does have a longstanding history of tobacco abuse and reports smoking half a pack a day for the last 20 years. She reports she quit as of this past Saturday. She does have a longstanding history of alcohol abuse and has been drinking beer for the last 40 years. In the last 5 years, she has been drinking approximately 6-7 beers daily. She did quit drinking as of approximately 3 weeks ago. PAST MEDICAL HISTORY Diagnosis Date Cataract of [...] PFRMD 09/13/2016 Colonoscopy (MAC) EGD DIAGNOSTIC 08/09/2022 ESOPHAGOGASTRODUODEN OSCOPY TRANSORAL DIAGNOSTIC 09/13/2016 EGD (MAC) INSERT INTRACORONARY STENT 2006 PCI/stent to RCA INSERT INTRACORONARY STENT 02/25/2023 PCI/stent to in-stent restenosis of previously placed RCA stent KNEE LEFT OP SURGERY Left 05/2020 LIG/TRNSXJ FLP TUBE ABDL/VAG APPR UNI/BI PAST SURGICAL HISTORY OF 05/14/2012 polyp removed from esoph STEREO LOC FOR CORE BRST BX RT 10/13/2012 TONSILLECTOMY AND ADENOIDECTOMY TONSILLECTOMY HX FAMILY HISTORY Problem Relation Age of Onset Breast Cancer Mother Hypertension Mother Heart Mother Coronary Artery Disease Mother Hypertension Father Cancer Father Lymphoma Hypertension Brother Social History Tobacco Use Smoking status: Former Packs/day: 0.50 Years: 20.00 Pack years: 10.00 Types: Cigarettes Quit date: 02/22/2023 Years since quittin.0 Smokeless tobacco: Never Vaping Use Vaping Use: Never used Substance Use Topics Alcohol use: Yes Alcohol/week: 42.0 standard drinks Types: 42 Cans of Beer (12oz) per week Drug use: Yes Comment: marijuana use-last evening Prior to Admission Medications Prescriptions Last Dose Informant Patient Reported? Taking? CALCIUM CARBONATE-VITAMIN D2 ORAL Yes Yes Sig: Take 1 tablet by mouth twice daily. 600 mg - 200 unit LISINOPRIL 40 mg tablet Yes No Sig: twice daily. MULTIVIT-MINERALS/FE RROUS FUM (MULTI VITAMIN ORAL) Yes Yes Sig: Take by mouth once daily. (more content not included)... [facility] CONSULT PROGon 02-28-2023 CONSULT PROG HNO ID: [id number] Author: Melissa Koroma APRN.GRAB JACK WORKER Service: Electrophysiology Author Type: Nurse Practitioner Type: Consult Progress Note Filed: 02/28/2023 1:27 PM Note Text: PROGRESS NOTE ELECTROPHYSIOLOGY SERVICE SERVICE DATE: 02/28/2023 SERVICE TIME: 12:27 PM Subjective INTERIM HISTORY: Chart reviewed, patient seen and examined. She is sitting up in the bedside recliner, just received lunch. No events overnight, patient states she feels well today. Review of Systems Constitutional: Negative for chills, diaphoresis and fever. Respiratory: Negative for cough, hemoptysis, sputum production, shortness of breath and wheezing. Cardiovascular: Negative for chest pain, palpitations, orthopnea, leg swelling and PND. Musculoskeletal: Negative for myalgias. Neurological: Negative for dizziness, loss of consciousness and headaches. Objective PHYSICAL EXAM: Body mass index is 27.93 kg/m?. O2 Therapy: Room Air Patient Vitals for the past 24 hrs: BP Temp Temp src Pulse Resp SpO2 02/28/23 0734 135/74 36.9 ?C (98.4 ?F) Oral 72 18 95 % 02/28/23 0408 124/76 36.4 ?C (97.5 ?F) Oral 73 17 94 % 02/27/23 2309 138/68 -- -- 70 18 97 % 02/27/23 1939 141/88 36.8 ?C (98.2 ?F) Oral 83 18 97 % 02/27/23 1555 114/78 36.7 ?C (98.1 ?F) Oral 75 18 96 % Pleasant, comfortable, not in acute distress. SKIN: warm AND dry; normal color. HEENT: Normocephalic. NECK: Supple LUNGS: Clear to auscultation bilaterally. Respirations unlabored at rest. CARDIAC: Normal S1 and S2; no rubs, murmurs, or gallops. Regular rate and rhythm. EXTREMITIES: No edema lower extremities. NEURO: awake, alert, oriented X 3, moves all 4 extremities. PULSES: bilateral radial AND dorsalis pedis pulses palpable. MEDICATIONS: Current Facility-Administere d Medications Medication Dose Route Frequency busPIRone 10 mg tab(s) (BUSPAR) 10 mg ORAL TID sucralfate 1 g tab(s) (CARAFATE) 1 g ORAL AC and HS clopidogrel 75 mg tab(s) (PLAVIX) 75 mg ORAL DAILY pantoprazole DR 40 mg tab(s) (PROTONIX) 40 mg ORAL DAILY sertraline 25 mg tab(s) (ZOLOFT) 25 mg ORAL DAILY venlafaxine ER 150 mg cap(s) (EFFEXOR XR) 150 mg ORAL DAILY NaCl 0.9% iv flush bag 20 mL INTRAVENOUS PRN aluminum-magnesium hydroxide-simethicon e 200-200-20 mg/5 mL 30 mL 30 mL ORAL DAILY PRN ondansetron 4 mg tab(s) (ZOFRAN) 4 mg ORAL q 6 H PRN Or ondansetron (PF) 4 mg injection (ZOFRAN) 4 mg INTRAVENOUS q 6 H PRN acetaminophen 650 mg tab(s) (TYLENOL) 650 mg ORAL q 6 H PRN buPROPion SR 150 mg tab(s) (ZYBAN SR; WELLBUTRIN SR) 150 mg ORAL BID aspirin 81 mg chewable tab(s) 81 mg ORAL DAILY carvedilol 6.25 mg tab(s) (COREG) 6.25 mg ORAL BID w MEALS spironolactone 25 mg tab(s) (ALDACTONE) 25 mg ORAL BID empagliflozin 10 mg tab(s) (JARDIANCE) 10 mg ORAL DAILY atorvastatin 80 mg tab(s) (LIPITOR) 80 mg ORAL AT BEDTIME [START ON 03/01/2023] furosemide 20 mg tab(s) (LASIX) 20 mg ORAL DAILY sacubitril-valsartan 24-26 mg 1 tablet (ENTRESTO) 1 tablet ORAL BID DATA: Diagnostic tests reviewed for today's visit: Most recent lab results. Most recent EKG Echocardiogram: OSH TTE, 02/21/2023: Severe LV systolic dysfunction with ejection fraction 15% Coronary angiography: OSH Left Heart Catheterization, 02/25/2023: 50% stenosis in the LAD. Less than 30% stenosis left circumflex artery. 80% in-stent restenosis in the mid RCA status post PCI TELEMETRY/PERFORMANCE CONSULTANT: Sinus rhythm with occasional PVCs, rates 60s-70s, several brief episodes of NSVT. Past 72 Hour Labs: Recent Labs 02/28/23 0425 02/27/23 0154 02/26/23 1736 WBC -- -- 8.04 RBC -- -- 5.10 HB -- -- 15.0 HCT -- -- 44.9 MCV -- -- 88.0 MCH -- -- 29.4 MCHC -- -- 33.4 RDWCV -- -- 12.7 PLT -- -- 284 MPV -- -- 9.6 GLUC 105* < > -- BUN 14 < > -- CREAT 0.72 < > -- NA 136 < > -- K 3.9 < > -- CHLOR 99 < > -- CO2 25 < > -- CA 9.7 < > -- MG 2.0 -- -- < > = values in this interval not displayed. Last Lab Drawn: No results found for this basename: TSH,PROBNP,TG,HDL,LD L,CHOL Assessment/Plan Patient Active Hospital Problem List: Ventricular tachycardia, nonsustained (HCC) (02/26/2023) Coronary artery disease involving [place] coronary artery (09/10/2012) Hyperlipidemia (08/29/2016) Hypertension (08/29/2016) Nicotine use disorder, F17.2 (02/26/2023) Acute on chronic combined systolic and diastolic CHF (congestive heart failure) ([facility]) (02/26/2023) Tobacco abuse (02/26/2023) NICM (nonischemic cardiomyopathy) ([facility]) (02/27/2023) History of percutaneous coronary intervention (02/27/2023) Chronic systolic CHF (congestive heart failure) ([facility]) (02/28/2023) Ischemic cardiomyopathy (02/28/2023) Alcohol abuse (02/28/2023) The patient has a history of CAD, underwent PCI/stent to RCA in 2006, had preserved LV systolic function at that time and also in 2011 by echocardiogram. However she recently established with a new delivery sales worker, echocardiogram 02/21/2023 revealed new diagnosis of shamar (more content not included)... [facility] - Microbiology an d Antimicrobial susceptibilityOrdered By: Dr. Arndt on 02-28-2023 Bacteria identified Cx Nom (Bld) No growth in [address] [facility] Bacteria identified Cx Nom (Bld) No growth in [address] [facility] Magnesium SerPl-mCncon 02-28 Magnesium [Mass/Vol] 2.0 mg/dL Normal 1.7-2.3 [facility] Comment on above: Order Comment: Speci men Type: BLOOD SPECIMEN Ordering Facility: [facility] Address: [address] [address] Performed By: #### 2 4321-2, 32500-5 #### [facility] CLIA [id number] [address] [place] [address] [place] Basic metabolic 2000 panelon 02-27-2023 Anion gap [Moles/Vol] 12 mmol/L Normal 9-18 [facility] Comment on above: Order Comment: Speci men Type: BLOOD SPECIMEN Ordering Facility: [facility] Address: [address] [place] [address] Performed By: #### 2 4321-2 #### [facility] CLIA [id number] [address] [place] [address] [place] Calcium [Mass/Vol] 9.9 mg/dL Normal 8.5-10.2 [facility] Comment on above: Order Comment: Speci men Type: BLOOD SPECIMEN Ordering Facility: [facility] Address: [address] [place] [address] Performed By: #### 2 4321-2 #### [facility] CLIA [id number] [address] [place] [address] [place] Chloride [Moles/Vol] 100 mmol/L Normal 97-105 [facility] Comment on above: Order Comment: Speci men Type: BLOOD SPECIMEN Ordering Facility: [facility] Address: [address] [place] [address] Performed By: #### 2 4321-2 #### [facility] CLIA [id number] [address] [place] [address] [place] CO2 [Moles/Vol] 25 mmol/L Normal 22-30 [facility] Comment on above: Order Comment: Juan Manuel kenny Type: BLOOD SPECIMEN Ordering Facility: [facility] Address: [address] [address] Performed By: #### 2 4321-2 #### [facility] CLIA [id number] [address] Creatinine [Mass/Vol] 0.65 mg/dL Normal 0.58-0.96 [facility] Comment on above: Order Comment: Specelise men Type: BLOOD SPECIMEN Ordering Facility: [facility] Address: [address] [address] Performed By: #### 2 4321-2 #### [facility] CLIA [id number] [address] ESTIMATED GLOMERULAR FILTRATION RATE 101 mL/min/1.73m??? Normal >=60 [facility] Comment on above: Order Comment: Juan Manuel kenny Type: BLOOD SPECIMEN Ordering Facility: [facility] Address: [address] [place] [address] Result Comment: Elenita mated Glomerular Filtration Rate (eGFR) is calculated using the 2020 CKD-EPI creatinine equation. This equation utilizes serum creatinine, sex, and age as parameters. The creatinine assay has traceable calibration to isotope dilution-mass spectrometry. Refer to KDIGO guidelines for clinical interpretation. In patients with unstable renal function, e.g. those with acute kidney injury, the eGFR may not accurately reflect actual GFR. Performed By: #### 2 4321-2 #### [facility] CLIA [id number] [address] [place] [address] Glucose [Mass/Vol] 108 mg/dL High 74-99 [facility] Comment on above: Order Comment: Francescoelise cox Type: BLOOD SPECIMEN Ordering Facility: [facility] Address: [address] [place] [address] Result Comment: The [place] Diabetes Association (ADA) provides guidance for cutoff values for fasting glucose and random glucose. The ADA defines fasting as no caloric intake for at least 8 hours. Fasting plasma glucose results between 100 to 125 mg/dL indicate increased risk for diabetes (prediabetes). Fasting plasma glucose results greater than or equal to 126 mg/dL meet the criteria for diagnosis of diabetes. In the absence of unequivocal hyperglycemia, results should be confirmed by repeat testing. In a patient with classic symptoms of hyperglycemia or hyperglycemic crisis, random plasma glucose results greater than or equal to 200 mg/dL meet the criteria for diagnosis of diabetes. Reference: Standards of Medical Care in Diabetes 2016, [place] Diabetes Association. Diabetes Care. 2016.39(Suppl 1). Performed By: #### 2 4321-2 #### [facility] CLIA [id number] [address] Potassium [Moles/Vol] 4.0 mmol/L Normal 3.7-5.1 [facility] Comment on above: Order Comment: Juan Manuel cox Type: BLOOD SPECIMEN Ordering Facility: [facility] Address: [address] [place] [address] Performed By: #### 2 4321-2 #### [facility] CLIA [id number] [address] [place] [address] Sodium [Moles/Vol] 137 mmol/L Normal 136-144 [facility] Comment on above: Order Comment: Juan Manuel cox Type: BLOOD SPECIMEN Ordering Facility: [facility] Address: [address] [place] [address] Performed By: #### 2 4321-2 #### [facility] CLIA [id number] [address] [place] [address] Urea nitrogen [Mass/Vol] 12 mg/dL Normal 7-21 [facility] Comment on above: Order Comment: Juan Manuel cox Type: BLOOD SPECIMEN Ordering Facility: [facility] Address: [address] [place] [address] Performed By: #### 2 4321-2 #### [facility] CLIA [id number] [address] CONSULTon 02-27-2023 CONSULT HNO ID: [id number] Author: Vinay Lovell MD Service: Electrophysiology Author Type: Physician Type: Consults Filed: 02/27/2023 4:24 PM Note Text: CONSULT: CARDIOLOGY SERVICE [facility] Electrophysiology (EP) SERVICE DATE: 02/27/2023 SERVICE TIME: 4:03 PM CONSULTING PHYSICIAN: Vinay Lovell PCP: Ricki Griffin, PHOTOGRAPHIC SPOTTER, GRAB JACK WORKER ATTENDING: Oly Guzmán DO REASON FOR CONSULT: Arrhythmias Subjective CHIEF COMPLAINT: Ventricular tachyarrhythmia (HCC) [I47.20] HISTORY OF PRESENT ILLNESS: Ms. George is a 62 year old female transferred from [facility] for evaluation of ventricular tachycardia and heart failure. She has history of CAD, underwent PCI/stent to RCA in 2006. She had preserved LV systolic function at that time, and also in 2011 by the most recent echocardiogram. However, she recently established with a new delivery sales worker, and an echocardiogram 02/21/2023 revealed new diagnosis of severe cardiomyopathy, LVEF 15%. She was experiencing episodes of nausea and diaphoresis over the past couple months, also exertional shortness of breath. She was admitted to [facility] with these symptoms. She underwent cardiac catheterization 02/25/2023 which revealed the previously implanted stent in the RCA to have in-stent restenosis, 80% stenosis. She underwent PCI/stent to this and since then has no longer experienced any of the nausea and diaphoresis. She reportedly had 34-beat nonsustained ventricular tachycardia the evening/night after the stent was placed, asymptomatic but she states she was sleeping. Unfortunately no rhythm strip documenting this arrhythmia was sent with the medical records on transfer. She has not had recurrence of substantial NSVT here at [facility]. No history of syncope or near syncope, palpitations. Today she is feeling well, not short of breath, no chest pain. PAST MEDICAL HISTORY Diagnosis Date Cataract of [...] PFRMD 09/13/2016 Colonoscopy (MAC) EGD DIAGNOSTIC 08/09/2022 ESOPHAGOGASTRODUODEN OSCOPY TRANSORAL DIAGNOSTIC 09/13/2016 EGD (MAC) INSERT INTRACORONARY STENT 2006 PCI/stent to RCA INSERT INTRACORONARY STENT 02/25/2023 PCI/stent to in-stent restenosis of previously placed RCA stent KNEE LEFT OP SURGERY Left 05/2020 LIG/TRNSXJ FLP TUBE ABDL/VAG APPR UNI/BI PAST SURGICAL HISTORY OF 05/14/2012 polyp removed from esoph STEREO LOC FOR CORE BRST BX RT 10/13/2012 TONSILLECTOMY AND ADENOIDECTOMY TONSILLECTOMY HX FAMILY HISTORY Problem Relation Age of Onset Breast Cancer Mother Hypertension Mother Heart Mother Coronary Artery Disease Mother Hypertension Father Cancer Father Lymphoma Hypertension Brother Social History Tobacco Use Smoking status: Every Day Packs/day: 0.50 Years: 20.00 Pack years: 10.00 Types: Cigarettes Smokeless tobacco: Never Vaping Use Vaping Use: Never used Substance Use Topics Alcohol use: Yes Alcohol/week: 42.0 standard drinks Types: 42 Cans of Beer (12oz) per week Drug use: Yes Comment: marijuana use-last evening Prior to Admission Medications Prescriptions Last Dose Informant Patient Reported? Taking? CALCIUM CARBONATE-VITAMIN D2 ORAL Yes Yes Sig: Take 1 tablet by mouth twice daily. 600 mg - 200 unit LISINOPRIL 40 mg tablet Yes No Sig: twice daily. MULTIVIT-MINERALS/FE RROUS FUM (MULTI VITAMIN ORAL) Yes Yes Sig: Take by mouth once daily. Valsartan-hydroCHLOR Othiazide 320-12.5 mg per tablet Yes Yes Sig: Take 1 tablet by mouth once daily. ZINC ORAL Yes No Sig: Take by mouth once daily. ascorbic acid (VITAMIN C ORAL) Yes No Sig: Take 500 mg by mouth once daily. aspirin(PINKY ASPIRIN 325 MG TAB) Yes Yes Si mg once daily. buPROPion SR (WELLBUTRIN SR) 150 mg 12 hr tablet Yes Yes Sig: Take 150 mg by mouth twice daily. busPIRone (BUSPAR) 10 mg tablet Yes Yes Sig: Take 10 mg by mouth three times daily. cholecalciferol (VITAMIN D3) 5,000 unit tab Yes Yes Sig: Take 1,000 Units by mouth once daily. clopidogrel bisulfate(PLAVIX 75 MG TAB) Yes Yes Sig: Take one(1) tablet daily. cyanocobalamin (VITAMIN B-12) 1,000 mcg tab Yes Yes Sig: Take 1,000 mcg by mouth once daily. metoprolol tartrate, short acting, (LOPRESSOR) 50 mg tablet Yes Yes Sig: Take 75 mg by mouth twice daily. 75mg 1 1/2 tablet 2 times a day pantoprazole DR (PROTONIX) 40 mg tablet Yes Yes Sig: Take 40 mg by mouth once daily. rosuvastatin (CRESTOR) 10 mg tablet Yes Yes Sig: Take 10 mg (more content not included)... Normal [facility] NUTRITIONon 02-27-2023 NUTRITION HNO ID: [id number] Author: Hui Crandall RD Service: Nutrition Therapy Author Type: Registered Dietitian Type: Nutrition Filed: 02/27/2023 1:54 PM Note Text: INITIAL ASSESSMENT SERVICE DATE: 02/27/2023 SERVICE TIME: 1117 AM Nutrition Assessment: Recommended Malnutrition Diagnosis: Mild Protein-Calorie Malnutrition In the context of: Chronic Illness or Injury Based on: Insufficient Energy Intake Nutrition Diagnosis: Problem: Suboptimal oral intake Related to: Chronic illness As evidenced by: Medical condition, Patient/family self-report Estimated kilocalorie needs: [id number] Calorie Calculation Method: 25-30 kcals/kg, [place] Body Weight Estimated protein needs (grams): 54-65 Grams protein determined by: 1.0 - 1.2 g/kg, [place] body weight Care Plan: Follow for diet advancement to goal Monitor and Evaluation: Meet greater than 75% of estimated needs, Monitor fluid/electrolyte balance, Monitor bowel function, Monitor labs, I/Os, vital signs, weight Discharge Recommendations: Diet Diet: Heart Healthy - HPI: 62 yo female, presented with ventricular tachyarrhythmia from [facility], O at present, awaiting Cardiology consult and ICD evaluation. Meds and labs reviewed - lytes noted, no edema with wt 73.8 kg, and GI wnl. Intake History: Nutrition Intake Prior to Admission: Less than 75% estimated energy needs greater than or equal to 3 months Current Nutrition Intake: NPO Diet Orders (From admission, onward) Start Ordered 02/27/23 0001 DIET NPO AFTER MIDNIGHT 02/26/23 1637 Anthropometrics: Height: 162.6 cm (5' 4) Weight: 73.8 kg (162 lb 11.2 oz) Dosing Weight: 54.4 kg (120 lb) Usual Weight: 78.5 kg (173 lb) August 2022 Usual Weight Obtained From: Chart Review Body mass index is 27.93 kg/m?. Overweight Weight change percentage over time: 6% loss over 6 months Last Wt 02/26/23 : 73.8 kg (162 lb 11.2 oz) 08/14/22 : 78.5 kg (173 lb) - 6 months (6% loss) 07/17/22 : 78.5 kg (173 lb) - 7 months 05/16/21 : 84.8 kg (187 lb) 12/30/17 : 92.5 kg (204 lb) 10/19/16 : 87.1 kg (192 lb) 09/13/16 : 80.7 kg (178 lb) 08/29/16 : 80.7 kg (178 lb) 08/22/16 : 80.3 kg (177 lb) 08/08/16 : 85.3 kg (188 lb) 07/23/16 : 85.8 kg (189 lb 3.2 oz) 07/06/15 : 85.3 kg (188 lb) 10/02/12 : 90.3 kg (199 lb) 09/10/12 : 89.8 kg (198 lb) 03/28/11 : 92.5 kg (204 lb) 01/02/10 : 95.3 kg (210 lb) 12/08/08 : 98.4 kg (217 lb) 10/17/06 : 73 kg (161 lb) 09/20/06 : 73.2 kg (161 lb 6.4 oz) Physical Exam: Subcutaneous fat loss: No fat loss Muscle loss: No muscle loss Potential micronutrient deficiency: No deficiency identified Edema/Ascites: No edema GI Symptoms: Nausea (at times with medications) Functional Status: No Change Potential Signs of Inflammation: Chronic condition, Hyperglycemia HTN, COPD MNT Billing: $ Initial Assessment: 1-15 minutes SIGNATURE: Hui Crandall RD PATIENT NAME: Vishal George DATE: February 27, 2023 TIME: 10:19 AM Normal [facility] Basophil percentageOrdered B y: Dr. Joseph on 02-26-2023 Bilirubin [Mass/Vol] 0.40 mg/dL 0.20-1.00 [facility] Comment on above: For patients on eltr ombopag therapy, use of Dimension Fabens TBIL is not recommended. Chloride [Moles/Vol] 101 mmol/L 98-107 [facility] Glucose [Mass/Vol] 108 mg/dL 74-106 [facility] Comment on above: Fasting Glucose resu lt from 100 to 125 mg/dL suggests IMPAIRED HOMEOSTASIS per A.D.A. criteria. Potassium [Moles/Vol] 3.9 mmol/L 3.5-5.1 [facility] Protein [Mass/Vol] 7.1 g/dL 6.4-8.2 [facility] Sodium [Moles/Vol] 136 mmol/L 136-145 [facility] WBC (Bld) [#/Vol] 7.4 10*3/uL 4.4-11.0 [facility] Blood erythrocytes count (nu mber/volume)Ordered By: Dr. Joseph on 02-26-2023 RBC (Bld) [#/Vol] 5.26 10*6/uL 4.2-5.4 [facility] Blood hemoglobin measurement (mass/volume)Ordered By: Dr. Joseph on 02-26-2023 Hemoglobin (Bld) [Mass/Vol] 15.6 g/dL 12.0-15.[address] [facility] Blood platelet mean volumeOr dered By: Dr. Joseph on 02-26-2023 Platelet mean volume (Bld) [Entitic vol] 9.9 fL 6.2-12.[address] [facility] CBC panel Auto (Bld)on 02-26 Erythrocyte distribution width (RBC) [Ratio] 12.7 % Normal 11.5-15.0 [facility] Comment on above: Order Comment: Speci men Type: BLOOD SPECIMEN Ordering Facility: [facility] Address: [address] [place] [id number] Performed By: #### 5 8410-2 #### [facility] CLIA [id number] [address] Hematocrit (Bld) [Volume fraction] 44.9 % Normal 36.0-46.0 [facility] Comment on above: Order Comment: Speci men Type: BLOOD SPECIMEN Ordering Facility: [facility] Address: [address] [place] [address] Performed By: #### 5 8410-2 #### [facility] CLIA [id number] [address] Hemoglobin (Bld) [Mass/Vol] 15.0 g/dL Normal 11.5-15.5 [facility] Comment on above: Order Comment: Speci men Type: BLOOD SPECIMEN Ordering Facility: [facility] Address: [address] [place] [address] Performed By: #### 5 8410-2 #### [facility] CLIA [id number] [address] MCH (RBC) [Entitic mass] 29.4 pg Normal 26.0-34.0 [facility] Comment on above: Order Comment: Speci men Type: BLOOD SPECIMEN Ordering Facility: [facility] Address: [address] [place] [address] Performed By: #### 5 8410-2 #### [facility] CLIA [id number] [address] MCHC (RBC) [Mass/Vol] 33.4 g/dL Normal 30.5-36.0 [facility] Comment on above: Order Comment: Speci men Type: BLOOD SPECIMEN Ordering Facility: [facility] Address: [address] [place] [address] Performed By: #### 5 8410-2 #### [facility] CLIA [id number] [address] [place] MCV (RBC) [Entitic vol] 88.0 fL Normal 80.0-100.0 [facility] Comment on above: Order Comment: Speci men Type: BLOOD SPECIMEN Ordering Facility: [facility] Address: [address] [address] Performed By: #### 5 8410-2 #### [facility] CLIA [id number] [address] [place] Nucleated RBC (Bld) [#/Vol] 10*3/uL Normal <0.01 [facility] Comment on above: Order Comment: Speci men Type: BLOOD SPECIMEN Ordering Facility: [facility] Address: [address] [address] Performed By: #### 5 8410-2 #### [facility] CLIA [id number] [address] [place] [address] [place] Platelet mean volume (Bld) [Entitic vol] 9.6 fL Normal 9.0-12.7 [facility] Comment on above: Order Comment: Speci men Type: BLOOD SPECIMEN Ordering Facility: [facility] Address: [address] [address] Performed By: #### 5 8410-2 #### [facility] CLIA [id number] [address] [place] Platelets (Bld) [#/Vol] 284 10*3/uL Normal 150-400 [facility] Comment on above: Order Comment: Speci men Type: BLOOD SPECIMEN Ordering Facility: [facility] Address: [address] [address] Performed By: #### 5 8410-2 #### [facility] CLIA [id number] [address] [place] RBC (Bld) [#/Vol] 5.10 10*6/uL Normal 3.90-5.20 [facility] Comment on above: Order Comment: Speci men Type: BLOOD SPECIMEN Ordering Facility: [facility] Address: [address] [address] Performed By: #### 5 8410-2 #### [facility] CLIA [id number] 1 [place] [address] [place] WBC (Bld) [#/Vol] 8.04 10*3/uL Normal 3.70-11.00 [facility] Comment on above: Order Comment: Speci men Type: BLOOD SPECIMEN Ordering Facility: [facility] Address: [place] [address] Performed By: #### 5 8410-2 #### [facility] CLIA [id number] 1 [place] [address] [place] Determination of erythrocyte mean corpuscular volume (MCV)Ordered By: Dr. Joseph on 02-26-2023 MCV (RBC) [Entitic vol] 91.1 fL 81-99 [facility] HISTORY PHYSICALon HISTORY PHYSICAL HNO ID: [id number] Author: Davie Rey MD Service: Hospital Medicine Author Type: Physician Type: HANDP Filed: 02/26/2023 6:32 PM Note Text: Hospital Medicine HPI Patient Name: Vishal George Admission Date: 02/26/2023 Reason For Admission:Ventricula r tachyarrhythmia (HCC) IMPRESSION AND PLAN: Principal Problem: Ventricular tachyarrhythmia (HCC) Active Problems: Coronary artery disease involving [place] coronary artery Hypertension Nicotine use disorder, F17.2 Acute on chronic combined systolic and diastolic CHF (congestive heart failure) (HCC) Tobacco abuse Resolved Problems: * No resolved hospital problems. * Active Hospital Problems Diagnosis Ventricular tachyarrhythmia (HCC) Nicotine use disorder, F17.2 Acute on chronic combined systolic and diastolic CHF (congestive heart failure) (HCC) Tobacco abuse Hypertension Coronary artery disease involving [place] coronary artery 1. Acute on chronic combined systolic and diastolic congestive heart failure which seem to be stable currently, patient was on metoprolol 75 mg oral twice a day but it seemed that it was changed to Coreg 6.25 mg twice a day with a plan to uptitrate, there was a talk about starting her on Entresto hence her lisinopril was stopped and hopefully can start Entresto in the next 24 to 48-hour. Also patient was on Lasix and Aldactone according to the hospitalist note there but it did not carry through on her medication list, and there was a plan to start Jardiance, patient may benefit from general cardiology evaluation for adjusting and recommending medication for her CHF treatment. 2. Coronary artery disease status postcardiac cath with finding of 80% stenosis right coronary artery status post successful PCI continue with aspirin 81 mg daily Plavix 75 mg daily also patient is on Coreg. 3. Hypertension blood pressure was 132/76 we will continue with metoprolol but its not clear about the plan to start Entresto, it seems her lisinopril was stopped at the outside facility, there was also a talk about starting her on Coreg instead of the metoprolol and uptitrating the dose. 4. Chronic GERD continue with Protonix 40 mg daily. 5. Depression continue with her home medication. 6. Tobacco abuse patient was started on Wellbutrin 150 mg twice a day In view of above patient will benefit from hospitalization admission for ventricle tachyarrhythmia need for ICD evaluation CODE STATUS full code DVT prophylaxis per protocol ======= HPI: This is a 62-year-old female with known congestive heart failure systolic and diastolic, CAD status post stent who presented to [facility] a few days ago for severe [...] with a plan to transition her to Entresto. Today there was a plan to discharge patient home but then she had a 34 run of V. tach/wide-complex tachycardia so decision was to transfer her to [facility] for ICD evaluation as that was being considered there. When patient arrived here she was doing okay she denied any fever, chills, chest pain no dyspnea, currently on room air, her nausea vomiting has subsided. Patient used to smoke a pack a day at home but understands the need to quit. ======= PERTINENT ROS: No fever, chills , night sweats, no chest pain, off oxygen, no ankle edema, no abd pain, no dysuria All other systems were reviewed and negative except for HPI ======= Temp Av ?C (98.6 ?F) Min: 37 ?C (98.6 ?F) Max: 37 ?C (98.6 ?F) Pulse Av.5 Min: 75 Max: 76 No data recorded Cuff BP Min: 131/88 Max: 132/76 Pain Level: 0 ======= PAST MEDICAL HISTORY Diagnosis Date Cataract of left eye COPD (chronic obstructive pulmonary disease) (HCC) Dysplasia of cervix, unspecified High cholesterol Hypertension Non morbid obesity 08/29/2016 PAST SURGICAL HISTORY Procedure Laterality Date CATARACT SURGERY, COMPLEX 09/29/2012 Lt eye CHOLECYSTECTOMY HX 10/14/2005 COLONOSCOPY FLX DX W/COLLJ SPEC WHEN PFRMD 09/13/2016 Colonoscopy (MAC) EGD DIAGNOSTIC 08/09/2022 ESOPHAGOGASTRODUODEN OSCOPY TRANS (more content not included)... Normal [facility] Hematocrit Auto (Bld) [Volum e fraction]Ordered By: Dr. Joseph on 02-26-2023 Hematocrit (Bld) [Volume fraction] 47.9 % 37-[address] [facility] Laboratory - Chemistry and C hemistry - challengeOrdered By: Dr. Joseph on 02-26-2023 ALP [Catalytic activity/Vol] 76 U/L 45-[address] [facility] ALT [Catalytic activity/Vol] 23 U/L 13-[address] [facility] CO2 [Moles/Vol] 30.0 mmol/L 21.0-32.[address] [facility] Globulin (S) [Mass/Vol] 3.5 g/dL 2.2-4.2 [facility] Urea nitrogen/Creatinine [Mass ratio] 20.8 mg/mg 10-[address] [facility] - Hematology and Cell countsOrdered By: Dr. Joseph on 02-26-2023 Erythrocyte distribution width (RBC) [Entitic vol] 42.2 fL 35.1-43.9 [facility] Erythrocyte distribution width (RBC) [Ratio] 12.6 % 11.6-14.[address] [facility] MCH (RBC) [Entitic mass] 29.7 pg 27.0-32.[address] [facility] MCHC Auto (RBC) [Mass/Vol]Or dered By: Dr. Joseph on 02-26-2023 MCHC (RBC) [Mass/Vol] 32.6 g/dL 32-36 [facility] No Panel InformationOrdered By: Dr. Joseph on 02-26-2023 Estimated Creatinine Clearance Calc 73.86 ml/min [facility] Estimated GFR (MDRD) Amer 115 mL/min >[address] [facility] Comment on above: GFR Calc Estimated GFR (MDRD) Non-Af Amer 95 mL/min >[address] [facility] Comment on above: Non- GFR Calc Platelets bldOrdered By: Dr. Joseph on 02-26-2023 Platelets (Bld) [#/Vol] 293 10*3/uL 150-[address] [facility] Serum or plasma albumin virgie urement (mass/volume)Ordered By: Dr. Joseph on 02-26-2023 Albumin [Mass/Vol] 3.6 g/dL 3.2-5.0 [facility] Serum or plasma albumin/glob ulin mass ratioOrdered By: Dr. Joseph on 02-26-2023 Albumin/Globulin [Mass ratio] 1.0 {ratio} 0.9-2.[address] [facility] Serum or plasma calcium virgie urement (mass/volume)Ordered By: Dr. Joseph on 02-26-2023 Calcium [Mass/Vol] 9.2 mg/dL 8.5-10.1 [facility] Serum or plasma creatinine m easurement (mass/volume)Ordered By: Dr. Joseph on 02-26-2023 Creatinine [Mass/Vol] 0.67 mg/dL 0.55-1.02 [facility] Comment on above: The validity of the calculated GFR & GFRAA in patients over 70 years has not been determined. Clinical correlation is essential. Serum or plasma urea nitroge n measurement (mass/volume)Ordered By: Dr. Joseph on 02-26-2023 Urea nitrogen [Mass/Vol] 14 mg/dL 7-[address] [facility] Thin prep Papanicolaou smear with manual screeningOrdered By: Dr. Joseph on 02-26-2023 Thin prep Papanicolaou smear with manual screening 16 U/L 15- [facility] Thin prep Papanicolaou smear with manual screening 5 5-[address] [facility] Laboratory - Chemistry and C hemistry - challengeOrdered By: Dr. Brunner on 02-25-2023 Magnesium [Mass/Vol] 1.9 mg/dL 1.6-2.6 [facility] No Panel InformationOrdered By: Dr. Brunner on 02-25-2023 Activated Clotting Time 251 sec 74-137 [facility] Absolute lymphocyte countOrd ered By: Dr. Brunner on 02-24-2023 Lymphocytes Auto (Unsp spec) [#/Vol] 1.61 10*3/uL 0.83-4.[address] [facility] Basophil percentageOrdered B y: Dr. Brunner on 02-24-2023 Basophils/100 WBC (Bld) 1.0 % 0-1 [facility] Eosinophils/100 WBC (Bld) 2.0 % 0-[address] [facility] Neutrophils (Bld) [#/Vol] 4.4 10*3/uL 2.0-7.[address] [facility] Neutrophils/100 WBC (Bld) 63.9 % 47-[address] [facility] Blood lymphocytes/100 leukoc ytesOrdered By: Dr. Brunner on 02-24-2023 Lymphocytes/100 WBC (Bld) 23.2 % 19-[address] [facility] Blood monocytes/100 leukocyt esOrdered By: Dr. Brunner on 02-24-2023 Monocytes/100 WBC (Bld) 9.5 % 0-10 [facility] Laboratory - Hematology and Cell countsOrdered By: Dr. Brunner on 02-24-2023 Immature granulocytes/100 WBC (Bld) 0.400 % 0.0-0.[address] [facility] Comment on above: IG% - Immature Granu locytes (promyelocytes, myelocytes and metamyelocytes) > 1% indicates that a LEFT SHIFT is Present. Nucleated RBC/100 WBC (Bld) [Ratio] 0 % 0-[address] [facility] No Panel InformationOrdered By: Dr. Brunner on 02-24-2023 Thyroid Stimulating Hormone (TSH) 1.66 uIU/mL 0.358-3.74 [facility] [facility] Basophil percentageOrdered B y: Dr. Brunner on 02-23-2023 Cholesterol [Mass/Vol] 187 mg/dL <200 [facility] Comment on above: <200 mg/dL Desirable 200-240 mg/dL Borderline >240 mg/dL High Risk Triglyceride [Mass/Vol] 62 mg/dL <199 [facility] Comment on above: The drugs N-Acetylcy steine and Metamizole may falsely depress this assay.Serum Triglycerides Reference Interval Normal <150 mg/dL Borderline high 150 - 199 mg/dL High 200 - 499 mg/dL Very High > or = 500 mg/dL Laboratory - Chemistry and C hemistry - challengeOrdered By: Dr. Brunner on 02-23-2023 Natriuretic peptide B (Bld) [Mass/Vol] 1392.6 pg/mL 0-[address] [facility] No Panel InformationOrdered By: Julio César Arndt on 02-23-2023 Streptococcus pneumoniae Antigen ([facility] No Panel InformationOrdered By: Dr. Arndt on 02-23-2023 Streptococcus pneumoniae Antigen ([facility] Serum or plasma cholesterol in HDL measurement (mass/volume)Ordered By: Dr. Brunner on 02-23-2023 Cholesterol in HDL [Mass/Vol] 40 mg/dL >[address] [facility] Comment on above: The drugs N-Acetylcy steine and Metamizole may falsely depress this assay. Reference Range HDL <40 mg/dL Low HDL Cholesterol HDL >or= 60 mg/dL High HDL Cholesterol Serum or plasma cholesterol in VLDL measurement (mass/volume)Ordered By: Dr. Brunner on 02-23-2023 Cholesterol in VLDL [Mass/Vol] 12 mg/dL 5-[address] [facility] Serum or plasma low density lipoprotein (LDL) cholesterol measurement (mass/volume)Ordered By: Dr. Brunner on 02-23-2023 Cholesterol in LDL [Mass/Vol] 135 mg/dL 0-[address] [facility] Absolute lymphocyte countOrd ered By: Dr. Koehler on 02-22-2023 Lymphocytes Auto (Unsp spec) [#/Vol] 1.46 10*3/uL 0.83-4.[address] [facility] Basophil percentageOrdered B y: Dr. Arndt on 02-22-2023 Basophil percentage 4.2 mg/dL 2.5-4.9 [facility] Basophil percentageOrdered B y: Dr. Burris on 02-22-2023 Lactate [Moles/Vol] 1.8 mmol/L 0.4-2.0 [facility] Lactate [Moles/Vol] 2.8 mmol/L 0.4-2.0 [facility] Comment on above: Critical Result(s) C alled at: 18:21:29 02/22/2023 by: SAMEERA CARRILLO TO MAYTE DUNNE. Results read back by same. Basophil percentageOrdered B y: Dr. Koehler on 02-22-2023 Basophils/100 WBC (Bld) 1.5 % 0-1 [facility] Bilirubin [Mass/Vol] 0.40 mg/dL 0.20-1.00 [facility] Comment on above: For patients on eltr ombopag therapy, use of Dimension Fabens TBIL is not recommended. Chloride [Moles/Vol] 104 mmol/L 98-107 [facility] Eosinophils/100 WBC (Bld) 4.7 % 0-[address] [facility] Glucose [Mass/Vol] 138 mg/dL 74-106 [facility] Comment on above: Fasting Glucose resu lt greater than or equal to 126 mg/dL suggests DIABETES MELLITUS per A.D.A. criteria. Neutrophils (Bld) [#/Vol] 7.0 10*3/uL 2.0-7.[address] [facility] Neutrophils/100 WBC (Bld) 71.0 % 47-[address] [facility] Potassium [Moles/Vol] 4.0 mmol/L 3.5-5.1 [facility] Protein [Mass/Vol] 7.7 g/dL 6.4-8.2 [facility] Sodium [Moles/Vol] 141 mmol/L 136-145 [facility] WBC (Bld) [#/Vol] 9.8 10*3/uL 4.4-11.0 [facility] Blood erythrocytes count (nu mber/volume)Ordered By: Dr. Koehler on 02-22-2023 RBC (Bld) [#/Vol] 5.30 10*6/uL 4.2-5.4 [facility] Blood hemoglobin measurement (mass/volume)Ordered By: Dr. Koehler on 02-22-2023 Hemoglobin (Bld) [Mass/Vol] 15.8 g/dL 12.0-15.[address] [facility] Blood lymphocytes/100 leukoc ytesOrdered By: Dr. Koehler on 02-22-2023 Lymphocytes/100 WBC (Bld) 14.9 % 19-[address] [facility] Blood monocytes/100 leukocyt esOrdered By: Dr. Koehler on 02-22-2023 Monocytes/100 WBC (Bld) 7.4 % 0-10 [facility] Blood platelet mean volumeOr dered By: Dr. Koehler on 02-22-2023 Platelet mean volume (Bld) [Entitic vol] 10.2 fL 6.2-12.[address] [facility] Determination of erythrocyte mean corpuscular volume (MCV)Ordered By: Dr. Koehler on 02-22-2023 MCV (RBC) [Entitic vol] 93.2 fL 81-99 [facility] Hematocrit Auto (Bld) [Volum e fraction]Ordered By: Dr. Koehler on 02-22-2023 Hematocrit (Bld) [Volume fraction] 49.4 % 37-[address] [facility] Laboratory - Chemistry and C hemistry - challengeOrdered By: Dr. Koehler on 05-12-2023 ALP [Catalytic activity/Vol] 80 U/L 45-[address] [facility] ALT [Catalytic activity/Vol] 27 U/L 13-[address] [facility] CO2 [Moles/Vol] 31.0 mmol/L 21.0-32.[address] [facility] Globulin (S) [Mass/Vol] 3.6 g/dL 2.2-4.2 [facility] Lipase [Catalytic activity/Vol] 39 U/L 13-[address] [facility] Comment on above: Please note:LIPASE r evised reference range effective 23. New Lipase methodology. Expected to produce lower values than the previous assay method. NEW Reference Range: 13 - 75 U/L Urea nitrogen/Creatinine [Mass ratio] 14.9 mg/mg 10-[address] [facility] Laboratory - Hematology and Cell countsOrdered By: Dr. Koehler on 02-22-2023 Erythrocyte distribution width (RBC) [Entitic vol] 44.7 fL 35.1-43.9 [facility] Erythrocyte distribution width (RBC) [Ratio] 13.1 % 11.6-14.[address] [facility] Immature granulocytes/100 WBC (Bld) 0.500 % 0.0-0.[address] [facility] Comment on above: IG% - Immature Granu locytes (promyelocytes, myelocytes and metamyelocytes) > 1% indicates that a LEFT SHIFT is Present. MCH (RBC) [Entitic mass] 29.8 pg 27.0-32.[address] [facility] Nucleated RBC/100 WBC (Bld) [Ratio] 0 % 0-[address] [facility] Laboratory - Microbiology an d Antimicrobial susceptibilityOrdered By: Julio César Arndt on 02-22-2023 Bacteria identified Cx Nom (Bld) No growth in [address] [facility] MCHC Auto (RBC) [Mass/Vol]Or dered By: Dr. Koehler on 02-22-2023 MCHC (RBC) [Mass/Vol] 32.0 g/dL 32-36 [facility] No Panel InformationOrdered By: Dr. Burris on 02-22-2023 Troponin I High Sensitivity 15 pg/mL 3.0-54.[address] [facility] Comment on above: Please Note: New Namr[place] t Units and Gender Specific Reference Ranges. For more information see Policy Stat Procedure Fabens High Sensitivity Troponin (TNIH) and attachments. No Panel InformationOrdered By: Dr. Koehler on 02-22-2023 Estimated Creatinine Clearance Calc 56.88 ml/min [facility] Estimated GFR (MDRD) Amer 85 mL/min >[address] [facility] Comment on above: GFR Calc Estimated GFR (MDRD) Non-Af Amer 70 mL/min >[address] [facility] Comment on above: Non- GFR Calc Platelets bldOrdered By: Dr. Koehler on 02-22-2023 Platelets (Bld) [#/Vol] 331 10*3/uL 150-[address] [facility] Serum or plasma albumin virgie urement (mass/volume)Ordered By: Dr. Koehler on 02-22-2023 Albumin [Mass/Vol] 4.1 g/dL 3.2-5.0 [facility] Serum or plasma albumin/glob ulin mass ratioOrdered By: Dr. Koehler on 02-22-2023 Albumin/Globulin [Mass ratio] 1.1 {ratio} 0.9-2.[address] [facility] Serum or plasma calcium virgie urement (mass/volume)Ordered By: Dr. Koehler on 02-22-2023 Calcium [Mass/Vol] 10.1 mg/dL 8.5-10.1 [facility] Serum or plasma creatinine m easurement (mass/volume)Ordered By: Dr. Koehler on 02-22-2023 Creatinine [Mass/Vol] 0.87 mg/dL 0.55-1.02 [facility] Comment on above: The validity of the calculated GFR & GFRAA in patients over 70 years has not been determined. Clinical correlation is essential. Serum or plasma urea nitroge n measurement (mass/volume)Ordered By: Dr. Koehler on 02-22-2023 Urea nitrogen [Mass/Vol] 13 mg/dL 7-[address] [facility] Thin prep Papanicolaou smear with manual screeningOrdered By: Dr. Koehler on 02-22-2023 Thin prep Papanicolaou smear with manual screening 20 U/L 15-[address] [facility] Thin prep Papanicolaou smear with manual screening 6 5-[address] [facility] Whole blood hemoglobin A1c/t otal hemoglobin ratio (mass fraction)Ordered By: Dr. Brunner on 02-22-2023 HbA1c (Bld) [Mass fraction] 5.7 % 3.8-5.[address] [facility] Comment on above: Normal < 5.7 % Predi abetic 5.7 - 6.4 % Diabetic >or= 6.5 % Please note range changes. Basophil percentageOrdered B y: Ricki Griffin on 02-08-2023 Bilirubin [Mass/Vol] 0.30 mg/dL 0.20-1.00 [facility] Comment on above: For patients on eltr ombopag therapy, use of Dimension Fabens TBIL is not recommended. Chloride [Moles/Vol] 100 mmol/L 98-107 [facility] Glucose [Mass/Vol] 105 mg/dL 74-106 [facility] Comment on above: Fasting Glucose resu lt from 100 to 125 mg/dL suggests IMPAIRED HOMEOSTASIS per A.D.A. criteria. Potassium [Moles/Vol] 3.8 mmol/L 3.5-5.1 [facility] Protein [Mass/Vol] 7.3 g/dL 6.4-8.2 [facility] Sodium [Moles/Vol] 134 mmol/L 136-145 [facility] WBC (Bld) [#/Vol] 6.4 10*3/uL 4.4-11.0 [facility] Blood erythrocytes count (nu mber/volume)Ordered By: Ricki Griffin on 02-08-2023 RBC (Bld) [#/Vol] 5.25 10*6/uL 4.2-5.4 [facility] Blood hemoglobin measurement (mass/volume)Ordered By: Ricki Griffin on 02-08-2023 Hemoglobin (Bld) [Mass/Vol] 15.9 g/dL 12.0-15.[address] [facility] Blood platelet mean volumeOr dered By: Ricki Griffin on 02-08-2023 Platelet mean volume (Bld) [Entitic vol] 9.4 fL 6.2-12.[address] [facility] Determination of erythrocyte mean corpuscular volume (MCV)Ordered By: Ricki Griffin on 02-08-2023 MCV (RBC) [Entitic vol] 91.4 fL 81-99 [facility] Hematocrit Auto (Bld) [Volum e fraction]Ordered By: Ricki Griffin on 02-08-2023 Hematocrit (Bld) [Volume fraction] 48.0 % 37-[address] [facility] Laboratory - Chemistry and C hemistry - challengeOrdered By: Ricki Griffin on 02-08-2023 ALP [Catalytic activity/Vol] 82 U/L 45-[address] [facility] ALT [Catalytic activity/Vol] 29 U/L 13-[address] [facility] CO2 [Moles/Vol] 30.0 mmol/L 21.0-32.[address] [facility] Globulin (S) [Mass/Vol] 3.4 g/dL 2.2-4.2 [facility] Urea nitrogen/Creatinine [Mass ratio] 26.5 mg/mg 10-[address] [facility] Laboratory - Hematology and Cell countsOrdered By: Ricki Griffin on 02-08-2023 Erythrocyte distribution width (RBC) [Entitic vol] 45.6 fL 35.1-43.9 [facility] Erythrocyte distribution width (RBC) [Ratio] 13.5 % 11.6-14.[address] [facility] MCH (RBC) [Entitic mass] 30.3 pg 27.0-32.[address] [facility] MCHC Auto (RBC) [Mass/Vol]Or dered By: Ricki Griffin on 02-08-2023 MCHC (RBC) [Mass/Vol] 33.1 g/dL 32-36 [facility] No Panel InformationOrdered By: Ricki Griffin on 02-08-2023 Estimated GFR (MDRD) Amer 100 mL/min >[address] [facility] Comment on above: GFR Calc Estimated GFR (MDRD) Non-Af Amer 83 mL/min >[address] [facility] Comment on above: Non- GFR Calc Troponin I High Sensitivity 32 pg/mL 3.0-54.[address] [facility] Comment on above: Please Note: New [place] t Units and Gender Specific Reference Ranges. For more information see Policy Stat Procedure [employer]ens High Sensitivity Troponin (TNIH) and attachments. Platelets bldOrdered By: Godfrey Griffin on 02-08-2023 Platelets (Bld) [#/Vol] 299 10*3/uL 150-[address] [facility] Serum or plasma C reactive p rotein measurement (mass/volume)Ordered By: Ricki Griffin on 02-08-2023 CRP [Mass/Vol] mg/L 0.0-3.[address] [facility] Comment on above: C-Reactive Protein ( CRP) provides useful information for thediagnosis, therapy and monitoring of inflammatory processesand associated diseases. For the evaluation of Relative Riskfor Cardiovascular Disease, a High Sensitivity CRP (HSCRP)should be ordered. Serum or plasma albumin virgie urement (mass/volume)Ordered By: Ricki Griffin on 02-08-2023 Albumin [Mass/Vol] 3.9 g/dL 3.2-5.0 [facility] Serum or plasma albumin/glob ulin mass ratioOrdered By: Ricki Griffin on 02-08-2023 Albumin/Globulin [Mass ratio] 1.1 {ratio} 0.9-2.[address] [facility] Serum or plasma calcium virgie urement (mass/volume)Ordered By: Ricki Griffin on 02-08-2023 Calcium [Mass/Vol] 9.6 mg/dL 8.5-10.1 [facility] Serum or plasma creatinine m easurement (mass/volume)Ordered By: Ricki Griffin on 02-08-2023 Creatinine [Mass/Vol] 0.76 mg/dL 0.55-1.02 [facility] Comment on above: The validity of the calculated GFR & GFRAA in patients over 70 years has not been determined. Clinical correlation is essential. Serum or plasma urea nitroge n measurement (mass/volume)Ordered By: Ricki Griffin on 02-08-2023 Urea nitrogen [Mass/Vol] 20 mg/dL 7-[address] [facility] Thin prep Papanicolaou smear with manual screeningOrdered By: Ricki Griffin on 02-08-2023 Thin prep Papanicolaou smear with manual screening 17 U/L 15-[address] [facility] Thin prep Papanicolaou smear with manual screening 4 5-[address] [facility] RESCVIDon 09-23-2022 Adenovirus Not detected Normal Not Detected [facility] Comment on above: Performed By: #### R ESCVID #### [place] [address] Bordetella Parapertussis Not detected Normal Not Detected [facility] Comment on above: Performed By: #### R ESCVID #### [facility] [address] [place] [id number] Bordetella Pertussis Not detected Normal Not Detected [facility] Comment on above: Performed By: #### R ESCVID #### [facility] [address] [place] [phone] Chlamydophila pneumoniae Not detected Normal Not Detected [facility] Comment on above: Performed By: #### R ESCVID #### [place] [address] Coronavirus 229E (Not COVID-19) Not detected Normal Not Detected [facility] Comment on above: Performed By: #### R ESCVID #### [place] [address] Coronavirus HKU1 (Not COVID-19) Not detected Normal Not Detected [facility] Comment on above: Performed By: #### R ESCVID #### [place] [address] Coronavirus NL63 (Not COVID-19) Not detected Normal Not Detected [facility] Comment on above: Performed By: #### R ESCVID #### [place] [address] Coronavirus OC43 (Not COVID-19) Not detected Normal Not Detected [facility] Comment on above: Performed By: #### R ESCVID #### [place] [address] Human Metapneumovirus Not detected Normal Not Detected [facility] Comment on above: Performed By: #### R ESCVID #### [place] [id number] Influenza A Not detected Normal Not Detected [facility] Comment on above: Performed By: #### R ESCVID #### [place] [address] Influenza B Not detected Normal Not Detected [facility] Comment on above: Performed By: #### R ESCVID #### [facility] [address] [place] [id number] Mycoplasma pneumoniae Not detected Normal Not Detected [facility] Comment on above: Performed By: #### R ESCVID #### [facility] [address] [place] [phone] Parainfluenza 1 Not detected Normal Not Detected [facility] Comment on above: Performed By: #### R ESCVID #### [facility] [address] [place] [phone] Parainfluenza 2 Not detected Normal Not Detected [facility] Comment on above: Performed By: #### R ESCVID #### [facility] [address] [place] [id number] Parainfluenza 3 Not detected Normal Not Detected [facility] Comment on above: Performed By: #### R ESCVID #### [facility] [address] [place], [place] [id number] Parainfluenza 4 Not detected Normal Not Detected [facility] Comment on above: Performed By: #### R ESCVID #### [facility] [address] [place] [phone] Respiratory Syncytial Virus Not detected Normal Not Detected [facility] Comment on above: Performed By: #### R ESCVID #### [address] [address] Rhinovirus/Enterovirus Detected Abnormal Not Detected [facility] Comment on above: Performed By: #### R ESCVID #### [place] [id number] SARS-CoV-2 (COVID-19) RNA FERCHO+probe Ql (Unsp spec) Not detected Normal Not Detected [facility] Comment on above: Result Comment: This test is being used under the FDA EUA procedure. This assay has been validated in the [facility] for use with nasopharyngeal specimens in [facility]. If a non-validated specimen or test collection method was used, please interpret the results with caution, especially if the test result is negative. A positive test result for COVID-19 indicates that RNA from SARS-CoV-2 was detected, and the patient is infected with the virus and presumed to be contagious. Laboratory test results should always be considered in the context of clinical observations and epidemiological data in making a final diagnosis and patient management decisions. Patient management should follow current CDC guidelines. A negative test result for this test means that SARS-CoV-2 RNA was not present in the specimen above the limit of detection. However, a negative result does not rule out COVID-19 and should not be used as the sole basis for treatment or patient management decisions. A negative result does not exclude the possibility of COVID-19. When diagnostic testing is negative, the possibility of a false negative result should be considered in the context of a patient's recent exposures and the presence of clinical signs and symptoms consistent with COVID-19. The possibility of a false negative result should especially be considered if the patient?s recent exposures or clinical presentation indicate that COVID-19 is likely, and diagnostic tests for other causes of illness (e.g., other respiratory illness) are negative. If COVID-19 is still suspected based on exposure history together with other clinical findings, re-testing should be considered by healthcare providers in consultation with public health authorities. Performed By: #### [facility] #### [place] [address] LABORATORYOrdered By: Jere Gunderson on 09-21-2022 Adenovirus DNA FERCHO+non-probe Ql (Nph) Not Detected *NA* (09/21/22 5:46 PM) Invalid Interpretation Code Not Detected AH Auto Viro/Sero SS B. parapertussis [id number] DNA FERCHO+non-probe Ql (Nph) Not Detected *NA* (09/21/22 5:46 PM) Invalid Interpretation Code Not Detected AH Auto Viro/Sero SS B. pertussis toxin promoter region FERCHO+non-probe Ql (Nph) Not Detected *NA* (09/21/22 5:46 PM) Invalid Interpretation Code Not Detected AH Auto Viro/Sero SS C. pneumoniae DNA FERCHO+non-probe Ql (Nph) Not Detected *NA* (09/21/22 5:46 PM) Invalid Interpretation Code Not Detected AH Auto Viro/Sero SS FLUAV RNA FERCHO+non-probe Ql (Nph) Not Detected *NA* (09/21/22 5:46 PM) Invalid Interpretation Code Not Detected AH Auto Viro/Sero SS FLUBV RNA FERCHO+non-probe Ql (Nph) Not Detected *NA* (09/21/22 5:46 PM) Invalid Interpretation Code Not Detected AH Auto Viro/Sero SS hMPV RNA FERCHO+non-probe Ql (Nph) Not Detected *NA* (09/21/22 5:46 PM) Invalid Interpretation Code Not Detected AH Auto Viro/Sero SS M. pneumoniae DNA FERCHO+non-probe Ql (Nph) Not Detected *NA* (09/21/22 5:46 PM) Invalid Interpretation Code Not Detected AH Auto Viro/Sero SS Parainfluenza virus 1 RNA FERCHO+non-probe Ql (Nph) Not Detected *NA* (09/21/22 5:46 PM) Invalid Interpretation Code Not Detected AH Auto Viro/Sero SS Parainfluenza virus 2 RNA FERCHO+non-probe Ql (Nph) Not Detected *NA* (09/21/22 5:46 PM) Invalid Interpretation Code Not Detected AH Auto Viro/Sero SS Parainfluenza virus 3 RNA FERCHO+non-probe Ql (Nph) Not Detected *NA* (09/21/22 5:46 PM) Invalid Interpretation Code Not Detected AH Auto Viro/Sero SS Parainfluenza virus 4 RNA FERCHO+non-probe Ql (Nph) Not Detected *NA* (09/21/22 5:46 PM) Invalid Interpretation Code Not Detected AH Auto Viro/Sero SS Rhinovirus+Enterovirus RNA FERCHO+non-probe Ql (Nph) Detected *ABN* (09/21/22 5:46 PM) Invalid Interpretation Code Not Detected AH Auto Viro/Sero SS RSV RNA FERCHO+non-probe Ql (Nph) Not Detected *NA* (09/21/22 5:46 PM) Invalid Interpretation Code Not Detected AH Auto Viro/Sero SS SARS-CoV-2 (COVID-19) RNA FERCHO+probe Ql (Resp) Not Detected *NA* (09/21/22 5:46 PM) Invalid Interpretation Code Not Detected AH Auto Viro/Sero SS JON SCREENINGon 08-14-2022 [facility] SURGICAL PATHOLOGYon 022 Case Report Surgical Pathology Report Case: [id number] Authorizing Provider: Sony Cedeño MD Collected: 08/09/2022 11:36 AM Ordering Location: Ambulatory Surgery Received: 08/09/2022 04:53 PM Pathologist: Sony Prater MD Specimens: A) - DUODENUM BIOPSY B) - ANTRUM (STOMACH) BIOPSY, Antral bx for H/H C) - ESOPHAGUS BIOPSY, distal esophagus bx [facility] FINAL DIAGNOSIS A. Duodenum, biopsy: - Duodenal mucosa with no significant pathologic abnormality. B. Stomach, biopsy: - Gastric mucosa with no significant pathologic abnormality. C. Distal esophagus, biopsy: - Squamous mucosa with mild reactive changes. [facility] Gross Description A. DUODENUM BIOPSY Received in formalin is one piece of qureshi, soft tissue measuring 0.4 x 0.2 x 0.2 cm. Totally submitted in one cassette. B. ANTRUM (STOMACH) BIOPSY Received in formalin is one piece of qureshi, soft tissue measuring 0.7 x 0.2 x 0.2 cm. Totally submitted in one cassette. C. ESOPHAGUS BIOPSY Received in formalin is one piece of qureshi-white, soft tissue measuring 0.2 x 0.1 x 0.1 cm. Totally submitted in one cassette. Gross examination performed at [facility], [address] [place] [address] JT 08/09/2022 11:51 PM [facility] Performing Lab Diagnostic interpretation performed at [facility], [address] [place] [address] CLIA# [id number] Sales Lead Generator: Bart Madsen M.D. [facility] EGD DIAGNOSTICon 08-09-2022 [facility] Absolute lymphocyte countOrd ered By: Dr. Rain on 07-14-2022 Lymphocytes Auto (Unsp spec) [#/Vol] 1.11 10*3/uL 0.83-4.[address] [facility] Basophil percentageOrdered B y: Dr. Rain on 07-14-2022 Basophils/100 WBC (Bld) 0.7 % 0-1 [facility] Bilirubin [Mass/Vol] 0.90 mg/dL 0.20-1.00 [facility] Comment on above: For patients on eltr ombopag therapy, use of Dimension Fabens TBIL is not recommended. Chloride [Moles/Vol] 103 mmol/L 98-107 [facility] Eosinophils/100 WBC (Bld) 0.3 % 0-[address] [facility] Glucose [Mass/Vol] 165 mg/dL 74-106 [facility] Comment on above: Fasting Glucose resu lt greater than or equal to 126 mg/dL suggests DIABETES MELLITUS per A.D.A. criteria. Neutrophils (Bld) [#/Vol] 8.0 10*3/uL 2.0-7.[address] [facility] Neutrophils/100 WBC (Bld) 78.8 % 47-[address] [facility] Potassium [Moles/Vol] 3.3 mmol/L 3.5-5.1 [facility] Protein [Mass/Vol] 8.2 g/dL 6.4-8.2 [facility] Sodium [Moles/Vol] 140 mmol/L 136-145 [facility] WBC (Bld) [#/Vol] 10.2 10*3/uL 4.4-11.0 [facility] Blood erythrocytes count (nu mber/volume)Ordered By: Dr. Rain on 07-14-2022 RBC (Bld) [#/Vol] 5.25 10*6/uL 4.2-5.4 [facility] Blood hemoglobin measurement (mass/volume)Ordered By: Dr. Rain on 07-14-2022 Hemoglobin (Bld) [Mass/Vol] 15.8 g/dL 12.0-15.[address] [facility] Blood lymphocytes/100 leukoc ytesOrdered By: Dr. Rain on 07-14-2022 Lymphocytes/100 WBC (Bld) 10.9 % 19-[address] [facility] Blood monocytes/100 leukocyt esOrdered By: Dr. Rain on 07-14-2022 Monocytes/100 WBC (Bld) 8.8 % 0-10 [facility] Blood platelet mean volumeOr dered By: Dr. Rain on 07-14-2022 Platelet mean volume (Bld) [Entitic vol] 9.9 fL 6.2-12.[address] [facility] Determination of erythrocyte mean corpuscular volume (MCV)Ordered By: Dr. Rain on 07-14-2022 MCV (RBC) [Entitic vol] 87.2 fL 81-99 [facility] Hematocrit Auto (Bld) [Volum e fraction]Ordered By: Dr. Rain on 07-14-2022 Hematocrit (Bld) [Volume fraction] 45.8 % 37-[address] [facility] Laboratory - Chemistry and C hemistry - challengeOrdered By: Dr. Rain on 07-14-2022 ALP [Catalytic activity/Vol] 90 U/L 45-[address] [facility] ALT [Catalytic activity/Vol] 31 U/L 13-[address] [facility] CO2 [Moles/Vol] 24.0 mmol/L 21.0-32.[address] [facility] Globulin (S) [Mass/Vol] 3.6 g/dL 2.2-4.2 [facility] Lipase [Catalytic activity/Vol] 108 U/L 73-[address] [facility] Urea nitrogen/Creatinine [Mass ratio] 15.2 mg/mg 10-[address] [facility] Laboratory - Hematology and Cell countsOrdered By: Dr. Rain on 07-14-2022 Erythrocyte distribution width (RBC) [Entitic vol] 40.8 fL 35.1-43.9 [facility] Erythrocyte distribution width (RBC) [Ratio] 12.8 % 11.6-14.[address] [facility] Immature granulocytes/100 WBC (Bld) 0.500 % 0.0-0.[address] [facility] Comment on above: IG% - Immature Granu locytes (promyelocytes, myelocytes and metamyelocytes) > 1% indicates that a LEFT SHIFT is Present. MCH (RBC) [Entitic mass] 30.1 pg 27.0-32.[address] [facility] Nucleated RBC/100 WBC (Bld) [Ratio] 0 % 0-[address] [facility] MCHC Auto (RBC) [Mass/Vol]Or dered By: Dr. Rain on 07-14-2022 MCHC (RBC) [Mass/Vol] 34.5 g/dL 32-36 [facility] No Panel InformationOrdered By: Dr. Rain on 07-14-2022 Estimated Creatinine Clearance Calc 47.79 ml/min [facility] Estimated GFR (MDRD) Amer 74 mL/min >[address] [facility] Comment on above: GFR Calc Estimated GFR (MDRD) Non-Af Amer 61 mL/min >[address] [facility] Comment on above: Non- GFR Calc Platelets bldOrdered By: Dr. Rain on 07-14-2022 Platelets (Bld) [#/Vol] 334 10*3/uL 150-[address] [facility] Serum or plasma albumin virgie urement (mass/volume)Ordered By: Dr. Rain on 07-14-2022 Albumin [Mass/Vol] 4.6 g/dL 3.2-5.0 [facility] Serum or plasma albumin/glob ulin mass ratioOrdered By: Dr. Rain on 07-14-2022 Albumin/Globulin [Mass ratio] 1.3 {ratio} 0.9-2.[address] [facility] Serum or plasma calcium virgie urement (mass/volume)Ordered By: Dr. Rain on 07-14-2022 Calcium [Mass/Vol] 10.6 mg/dL 8.5-10.1 [facility] Serum or plasma creatinine m easurement (mass/volume)Ordered By: Dr. Rain on 07-14-2022 Creatinine [Mass/Vol] 0.99 mg/dL 0.55-1.02 [facility] Comment on above: The validity of the calculated GFR & GFRAA in patients over 70 years has not been determined. Clinical correlation is essential. Serum or plasma urea nitroge n measurement (mass/volume)Ordered By: Dr. Rain on 07-14-2022 Urea nitrogen [Mass/Vol] 15 mg/dL 7-[address] [facility] Thin prep Papanicolaou smear with manual screeningOrdered By: Dr. Rain on 07-14-2022 Thin prep Papanicolaou smear with manual screening 23 U/L 15-[address] [facility] Thin prep Papanicolaou smear with manual screening 13 5-[address] [facility] Absolute lymphocyte countOrd ered By: Dr. Monae on 07-12-2022 Lymphocytes Auto (Unsp spec) [#/Vol] 1.10 10*3/uL 0.83-4.[address] [facility] Basophil percentageOrdered B y: Dr. Monae on 07-12-2022 Basophil percentage 0 SEEN /hpf 0-5 [facility] Basophils/100 WBC (Bld) 0.5 % 0-1 [facility] Bilirubin [Mass/Vol] 0.60 mg/dL 0.20-1.00 [facility] Comment on above: For patients on eltr ombopag therapy, use of Dimension Fabens TBIL is not recommended. Chloride [Moles/Vol] 105 mmol/L 98-107 [facility] Eosinophils/100 WBC (Bld) 0.7 % 0-[address] [facility] Glucose [Mass/Vol] 170 mg/dL 74-106 [facility] Comment on above: Fasting Glucose resu lt greater than or equal to 126 mg/dL suggests DIABETES MELLITUS per A.D.A. criteria. Lactate [Moles/Vol] 2.0 mmol/L 0.4-2.0 [facility] Comment on above: Critical Result(s) C alled at: 12:36:42 07/12/2022 by: Lissette Prieto. To Cindy Lam RN (ER). Results read back by same. Neutrophils (Bld) [#/Vol] 7.4 10*3/uL 2.0-7.[address] [facility] Neutrophils/100 WBC (Bld) 78.8 % 47-[address] [facility] Potassium [Moles/Vol] 3.7 mmol/L 3.5-5.1 [facility] Protein [Mass/Vol] 8.1 g/dL 6.4-8.2 [facility] Sodium [Moles/Vol] 141 mmol/L 136-145 [facility] WBC (Bld) [#/Vol] 9.4 10*3/uL 4.4-11.0 [facility] Bilirubin Test strip Ql (U)O rdered By: Dr. Monae on 07-12-2022 Bilirubin Ql (U) Negative Negative [facility] Blood erythrocytes count (nu mber/volume)Ordered By: Dr. Monae on 07-12-2022 RBC (Bld) [#/Vol] 5.34 10*6/uL 4.2-5.4 [facility] Blood hemoglobin measurement (mass/volume)Ordered By: Dr. Monae on 07-12-2022 Hemoglobin (Bld) [Mass/Vol] 15.9 g/dL 12.0-15.[address] [facility] Blood lymphocytes/100 leukoc ytesOrdered By: Dr. Monae on 07-12-2022 Lymphocytes/100 WBC (Bld) 11.8 % 19-[address] [facility] Blood monocytes/100 leukocyt esOrdered By: Dr. Monae on 07-12-2022 Monocytes/100 WBC (Bld) 7.7 % 0-10 [facility] Blood platelet mean volumeOr dered By: Dr. Monae on 07-12-2022 Platelet mean volume (Bld) [Entitic vol] 9.4 fL 6.2-12.[address] [facility] Determination of erythrocyte mean corpuscular volume (MCV)Ordered By: Dr. Monae on 07-12-2022 MCV (RBC) [Entitic vol] 89.3 fL 81-99 [facility] Hematocrit Auto (Bld) [Volum e fraction]Ordered By: Dr. Monae on 07-12-2022 Hematocrit (Bld) [Volume fraction] 47.7 % 37-[address] [facility] Ketones Test strip Ql (U)Ord ered By: Dr. Monae on 07-12-2022 Ketones Ql (U) 5 mg/dl Negative [facility] Laboratory - Chemistry and C hemistry - challengeOrdered By: Dr. Monae on 07-12-2022 ALP [Catalytic activity/Vol] 95 U/L 45-[address] [facility] ALT [Catalytic activity/Vol] 31 U/L 13-[address] [facility] CO2 [Moles/Vol] 27.0 mmol/L 21.0-32.[address] [facility] Globulin (S) [Mass/Vol] 3.7 g/dL 2.2-4.2 [facility] Lipase [Catalytic activity/Vol] 110 U/L 73-[address] [facility] Urea nitrogen/Creatinine [Mass ratio] 12.6 mg/mg 10-[address] [facility] Laboratory - Hematology and Cell countsOrdered By: Dr. Monae on 07-12-2022 Erythrocyte distribution width (RBC) [Entitic vol] 42.6 fL 35.1-43.9 [facility] Erythrocyte distribution width (RBC) [Ratio] 13.0 % 11.6-14.[address] [facility] Immature granulocytes/100 WBC (Bld) 0.500 % 0.0-0.[address] [facility] Comment on above: IG% - Immature Granu locytes (promyelocytes, myelocytes and metamyelocytes) > 1% indicates that a LEFT SHIFT is Present. MCH (RBC) [Entitic mass] 29.8 pg 27.0-32.[address] [facility] Nucleated RBC/100 WBC (Bld) [Ratio] 0 % 0-[address] [facility] MCHC Auto (RBC) [Mass/Vol]Or dered By: Dr. Monae on 07-12-2022 MCHC (RBC) [Mass/Vol] 33.3 g/dL 32-36 [facility] Mucus LM Ql (Urine sed)Order ed By: Dr. Monae on 07-12-2022 Mucus Ql (Urine sed) 0 SEEN /hpf [facility] Nitrite Test strip Ql (U)Ord ered By: Dr. Monae on 07-12-2022 Nitrite Ql (U) Negative Negative [facility] No Panel InformationOrdered By: Dr. Monae on 07-12-2022 Estimated Creatinine Clearance Calc 45.94 ml/min [facility] Estimated GFR (MDRD) Amer 70 mL/min >[address] [facility] Comment on above: GFR Calc Estimated GFR (MDRD) Non-Af Amer 58 mL/min >[address] [facility] Comment on above: Non- GFR Calc Platelets bldOrdered By: Dr. Monae on 07-12-2022 Platelets (Bld) [#/Vol] 322 10*3/uL 150-[address] [facility] Protein Test strip Ql (U)Ord ered By: Dr. Monae on 07-12-2022 Protein Ql (U) Negative Negative [facility] Serum or plasma albumin virgie urement (mass/volume)Ordered By: Dr. Monae on 07-12-2022 Albumin [Mass/Vol] 4.4 g/dL 3.2-5.0 [facility] Serum or plasma albumin/glob ulin mass ratioOrdered By: Dr. Monae on 07-12-2022 Albumin/Globulin [Mass ratio] 1.2 {ratio} 0.9-2.[address] [facility] Serum or plasma calcium virgie urement (mass/volume)Ordered By: Dr. Monae on 07-12-2022 Calcium [Mass/Vol] 10.1 mg/dL 8.5-10.1 [facility] Serum or plasma creatinine m easurement (mass/volume)Ordered By: Dr. Monae on 07-12-2022 Creatinine [Mass/Vol] 1.03 mg/dL 0.55-1.02 [facility] Comment on above: The validity of the calculated GFR & GFRAA in patients over 70 years has not been determined. Clinical correlation is essential. Serum or plasma urea nitroge n measurement (mass/volume)Ordered By: Dr. Monae on 07-12-2022 Urea nitrogen [Mass/Vol] 13 mg/dL 7-[address] [facility] Squamous epithelial cells de tection in urine sediment by light microscopyOrdered By: Dr. Monae on 07-12-2022 Epithelial cells.squamous LM Ql (Urine sed) 0-5 SEEN /hpf 5-[address] [facility] Thin prep Papanicolaou smear with manual screeningOrdered By: Dr. Monae on 07-12-2022 Thin prep Papanicolaou smear with manual screening 21 U/L 15-[address] [facility] Thin prep Papanicolaou smear with manual screening 9 5-[address] [facility] Urine blood detectionOrdered By: Dr. Monae on 07-12-2022 RBC Ql (U) 10 /ul Negative [facility] RBC Ql (U) 0-5 SEEN /hpf 0-[address] [facility] Urine clarityOrdered By: Dr. Monae on 07-12-2022 Clarity (U) Clear Clear [facility] Urine color determinationOrd ered By: Dr. Monae on 07-12-2022 Color (U) Yellow Yellow [facility] Urine glucose detectionOrder ed By: Dr. Monae on 07-12-2022 Glucose Ql (U) Normal mg/dl Normal [facility] Urine leukocyte esterase det ection by dipstickOrdered By: Dr. Monae on 07-12-2022 Leukocyte esterase Test strip Ql (U) Negative Negative [facility] Urine pHOrdered By: Dr. Ann nails on 07-12-2022 pH (U) 7.0 [pH] 5.0 - 8.[address] [facility] Urine sediment bacteria coun t by microscopy (number/high power field)Ordered By: Dr. Monae on 07-12-2022 Bacteria LM.HPF (Urine sed) [#/Area] 0 /[HPF] None Seen [facility] Urine specific gravity measu rementOrdered By: Dr. Monae on 07-12-2022 Specific gravity (U) [Rel density] 1.010 1.002-1.[address] [facility] Urobilinogen Auto test strip Ql (U)Ordered By: Dr. Monae on 07-12-2022 Urobilinogen Ql (U) Normal mg/dl Normal [facility] Basophil percentageon 2021 Bilirubin [Mass/Vol] 0.40 mg/dL 0.20-1.00 [facility] Work Phone: Comment on above: For patients on eltr ombopag therapy, use of Dimension Fabens TBIL is not recommended. Chloride [Moles/Vol] 102 mmol/L 98-107 [facility] Work Phone: [phone] Cholesterol [Mass/Vol] 160 mg/dL <200 [facility] Work Phone: Comment on above: <200 mg/dL Desirable 200-240 mg/dL Borderline >240 mg/dL High Risk Glucose [Mass/Vol] 102 mg/dL 74-106 [facility] Work Phone: [phone] Comment on above: Fasting Glucose resu lt from 100 to 125 mg/dL suggests IMPAIRED HOMEOSTASIS per A.D.A. criteria. Potassium [Moles/Vol] 4.0 mmol/L 3.5-5.1 [facility] Work Phone: [phone] Protein [Mass/Vol] 7.1 g/dL 6.4-8.2 [facility] Work Phone: [phone] Sodium [Moles/Vol] 137 mmol/L 136-145 [facility] Work Phone: [phone] Triglyceride [Mass/Vol] 141 mg/dL <199 [facility] Work Phone: Comment on above: The drugs N-Acetylcy steine and Metamizole may falsely depress this assay.Serum Triglycerides Reference Interval Normal <150 mg/dL Borderline high 150 - 199 mg/dL High 200 - 499 mg/dL Very High > or = 500 mg/dL WBC (Bld) [#/Vol] 5.8 10*3/uL 4.4-11.0 [facility] Work Phone: Blood erythrocytes count (nu mber/volume)on 03-31-2022 RBC (Bld) [#/Vol] 5.11 10*6/uL 4.2-5.4 [facility] Work Phone: [phone] Blood hemoglobin measurement (mass/volume)on 03-31-2022 Hemoglobin (Bld) [Mass/Vol] 15.2 g/dL 12.0-15.[address] [facility] Work Phone: [phone] Blood platelet mean volumeon 03-31-2022 Platelet mean volume (Bld) [Entitic vol] 9.4 fL 6.2-12.[address] [facility] Work Phone: [phone] Determination of erythrocyte mean corpuscular volume (MCV)on 03-31-2022 MCV (RBC) [Entitic vol] 88.5 fL 81-99 [facility] Work Phone: [phone] Hematocrit Auto (Bld) [Volum e fraction]on 03-31-2022 Hematocrit (Bld) [Volume fraction] 45.2 % 37-[address] [facility] Work Phone: Laboratory - Chemistry and C hemistry - challengeon 03-31-2022 ALP [Catalytic activity/Vol] 98 U/L 45-[address] [facility] Work Phone: ALT [Catalytic activity/Vol] 37 U/L 13-[address] [facility] Work Phone: [phone] CO2 [Moles/Vol] 29.0 mmol/L 21.0-32.[address] [facility] Work Phone: Globulin (S) [Mass/Vol] 3.5 g/dL 2.2-4.2 [facility] Work Phone: [phone] Urea nitrogen/Creatinine [Mass ratio] 17.1 mg/mg 10-[address] [facility] Work Phone: [phone] Laboratory - Hematology and Cell countson 03-31-2022 Erythrocyte distribution width (RBC) [Entitic vol] 41.4 fL 35.1-43.9 [facility] Work Phone: [phone] Erythrocyte distribution width (RBC) [Ratio] 12.5 % 11.6-14.[address] [facility] Work Phone: MCH (RBC) [Entitic mass] 29.7 pg 27.0-32.[address] [facility] Work Phone: [phone] MCHC Auto (RBC) [Mass/Vol]on 03-31-2022 MCHC (RBC) [Mass/Vol] 33.6 g/dL 32-36 [facility] Work Phone: [phone] No Panel Informationon 03-31 Estimated GFR (MDRD) Amer 100 mL/min >[address] [facility] Work Phone: Comment on above: GFR Calc Estimated GFR (MDRD) Non-Af Amer 82 mL/min >[address] [facility] Work Phone: Comment on above: Non- GFR Calc Vitamin D 25-Hydroxy 47.8 ng/mL [facility] Work Phone: Comment on above: Vitamin D 25(OH) Sta tus Range Deficiency <20 ng/mL (50nmol/L) Insufficiency 20 - 30 ng/mL (50 - 75 nmol/L) Sufficiency 30 - 100 ng/mL (75 - 250 nmol/L) Toxicity >100 ng/mL (>250 nmol/L) Platelets bldon 03-31-2022 Platelets (Bld) [#/Vol] 307 10*3/uL 150-[address] [facility] Work Phone: [phone] Serum or plasma albumin virgie urement (mass/volume)on 03-31-2022 Albumin [Mass/Vol] 3.6 g/dL 3.2-5.0 [facility] Work Phone: [phone] Serum or plasma albumin/glob ulin mass ratioon 03-31-2022 Albumin/Globulin [Mass ratio] 1.0 {ratio} 0.9-2.[address] [facility] Work Phone: [phone] Serum or plasma calcium virgie urement (mass/volume)on 03-31-2022 Calcium [Mass/Vol] 8.9 mg/dL 8.5-10.1 [facility] Work Phone: [phone] Serum or plasma cholesterol in HDL measurement (mass/volume)on 03-31-2022 Cholesterol in HDL [Mass/Vol] 38 mg/dL >[address] [facility] Work Phone: Comment on above: The drugs N-Acetylcy steine and Metamizole may falsely depress this assay. Reference Range HDL <40 mg/dL Low HDL Cholesterol HDL >or= 60 mg/dL High HDL Cholesterol Serum or plasma cholesterol in VLDL measurement (mass/volume)on 03-31-2022 Cholesterol in VLDL [Mass/Vol] 28 mg/dL 5-[address] [facility] Work Phone: [phone] Serum or plasma creatinine m easurement (mass/volume)on 03-31-2022 Creatinine [Mass/Vol] 0.76 mg/dL 0.55-1.02 [facility] Work Phone: Comment on above: The validity of the calculated GFR & GFRAA in patients over 70 years has not been determined. Clinical correlation is essential. Serum or plasma low density lipoprotein (LDL) cholesterol measurement (mass/volume)on 03-31-2022 Cholesterol in LDL [Mass/Vol] 94 mg/dL 0-[address] [facility] Work Phone: Serum or plasma urea nitroge n measurement (mass/volume)on 03-31-2022 Urea nitrogen [Mass/Vol] 13 mg/dL -[address] [facility] Work Phone: [phone] Thin prep Papanicolaou smear with manual screeningon 03-31-2022 Thin prep Papanicolaou smear with manual screening 21 U/L 15-[address] [facility] Work Phone: [phone] Thin prep Papanicolaou smear with manual screening 6 5-[address] [facility] Work Phone: [phone] Vital Signs Date Time Vital Sign Value Performing Clinician Kelby ordoñez 01-06-2025 15:56-0400 Body height 157.48 cm Ricki Griffin NP-C Work Phone: [facility] 01-06-2025 15:56-0400 Body mass index (BMI) [Ratio] 32.7 kg/m2 Ricki Griffin NP-C Work Phone: [facility] 01-06-2025 15:56-0400 Body weight 81.19 kg Ricik Holbrookpkins [employer] SERVICER-C Work Phone: [facility] 01-06-2025 15:56-0400 Diastolic blood pressure 78 mm[Hg] Ricki Holbrookpkins [employer]OL SERVICER-C Work Phone: [facility] 01-06-2025 15:56-0400 Heart rate 69 /min Ricki Coke [employer] SERVICER-C Work Phone: [facility] 01-06-2025 15:56-0400 Respiratory rate 18 /min Ricki Holbrookpkins [employer] CONTROL SERVICER-C Work Phone: [facility] 01-06-2025 15:56-0400 Systolic blood pressure 130 mm[Hg] Ricki Gaby [employer]OL SERVICER-C Work Phone: [facility] 09-21-2024 15:26-0500 Body height 156.2 cm Aracelis Lozoya MD Work Phone: [facility] 09-21-2024 15:26-0500 Body mass index (BMI) [Ratio] 32.16 kg/m2 rAacelis Lozoya MD Work Phone: [facility] 09-21-2024 15:26-0500 Body weight 78.47 kg Aracelis Lozoya MD Work Phone: [facility] 09-21-2024 15:26-0500 Diastolic blood pressure 78 mm[Hg] Aracelis Lozoya MD Work Phone: [facility] 09-21-2024 15:26-0500 Systolic blood pressure 140 mm[Hg] Aracelis Lozoya MD Work Phone: [facility] 12-27-2023 11:51-0400 Body weight 73.48 kg Shay Teresa APRN.CNP Work Phone: [facility] 12-27-2023 11:51-0400 Diastolic blood pressure 67 mm[Hg] Shay Aurin DIGITAL SALES REPRESENTATIVE.[employer] J[employer] WORKER Work Phone: [facility] 12-27-2023 11:51-0400 Heart rate 71 /min Shay Aurin DIGITAL SALES REPRESENTATIVE.[employer] J[employer] WORKER Work Phone: [facility] 12-27-2023 11:51-0400 SaO2% (BldA) [Mass fraction] 96 % Shay Aurin DIGITAL SALES REPRESENTATIVE.[employer] J[employer] WORKER Work Phone: [facility] 12-27-2023 11:51-0400 Systolic blood pressure 132 mm[Hg] Shay Aurin DIGITAL SALES REPRESENTATIVE.[employer] JACK WORKER Work Phone: [facility] 09-17-2023 08:58-0500 Body height 157.48 cm [employer]OL SERVICER-C Ricki Griffin TERMITE CONTROL SERVICER Work Phone: [facility] 09-17-2023 08:58-0500 Body mass index (BMI) [Ratio] 29.3 kg/m2 [employer] SERVICER-C Ricki Griffni TERMITE CONTROL SERVICER Work Phone: [facility] 09-17-2023 08:58-0500 Body weight 72.74 kg [employer]MITE [employer]OL SERVICER-C Ricki Griffin TERMITE CONTROL SERVICER Work Phone: [facility] 09-17-2023 08:58-0500 Diastolic blood pressure 60 mm[Hg] [employer] SERVICER-C Ricki Griffin TERMITE CONTROL SERVICER Work Phone: [facility] 09-17-2023 08:58-0500 Heart rate 75 /min [employer] SERVICER-C Ricki Griffin TERMITE CONTROL SERVICER Work Phone: [facility] 09-17-2023 08:58-0500 Respiratory rate 18 /min [employer] SERVICER-C Ricki Griffin TERMITE CONTROL SERVICER Work Phone: [facility] 09-17-2023 08:58-0500 SaO2% (BldA) [Mass fraction] 94 % [employer] SERVICER-C Ricki Griffin TERMITE CONTROL SERVICER Work Phone: [facility] 09-17-2023 08:58-0500 Systolic blood pressure 110 mm[Hg] [employer]OL SERVICER-C Ricki Griffin TERMITE CONTROL SERVICER Work Phone: [facility] 07-12-2023 12:19-0400 Body weight 74.03 kg Shay Aurin DIGITAL SALES REPRESENTATIVE.[employer] J[employer] WORKER Work Phone: [facility] 07-12-2023 12:19-0400 Diastolic blood pressure 76 mm[Hg] Shay Aurin DIGITAL SALES REPRESENTATIVE.[employer] J[employer] WORKER Work Phone: [facility] 07-12-2023 12:19-0400 Heart rate 69 /min Shay Aurin DIGITAL SALES REPRESENTATIVE.[employer] J[employer] WORKER Work Phone: [facility] 07-12-2023 12:19-0400 SaO2% (BldA) [Mass fraction] 98 % Shay Aurin DIGITAL SALES REPRESENTATIVE.[employer] J[employer] WORKER Work Phone: [facility] 07-12-2023 12:19-0400 Systolic blood pressure 139 mm[Hg] Shay Aurin DIGITAL SALES REPRESENTATIVE.[employer] J[employer] WORKER Work Phone: [facility] 06-26-2023 13:34-0400 Body mass index (BMI) [Ratio] 32 kg/m2 [employer] SERVICER-C Ricki Griffin TERMITE CONTROL SERVICER Work Phone: [facility] 06-26-2023 13:34-0400 Body weight 74.38 kg [employer]OL SERVICER-C Ricki Griffin TERMITE CONTROL SERVICER Work Phone: [facility] 06-26-2023 13:34-0400 Diastolic blood pressure 78 mm[Hg] TERMITE CONTROL SERVICER-C Ricki Griffin TERMITE CONTROL SERVICER Work Phone: [facility] 06-26-2023 13:34-0400 Heart rate 71 /min TERMITE CONTROL SERVICER-C Ricki Griffin TERMITE CONTROL SERVICER Work Phone: [facility] 06-26-2023 13:34-0400 Respiratory rate 18 /min TERMITE CONTROL SERVICER-C Ricki Griffin TERMITE CONTROL SERVICER Work Phone: [facility] 06-26-2023 13:34-0400 SaO2% (BldA) [Mass fraction] 96 % TERMITE CONTROL SERVICER-C Ricki Griffin TERMITE CONTROL SERVICER Work Phone: [facility] 06-26-2023 13:34-0400 Systolic blood pressure 144 mm[Hg] TERMITE CONTROL SERVICER-C Ricki Griffin TERMITE CONTROL SERVICER Work Phone: [facility] 05-14-2023 00:11-0400 Body weight 74.61 kg TERMITE CONTROL SERVICER-C Ricki Gaby TERMITE CONTROL SERVICER Work Phone: [facility] 05-10-2023 07:13-0400 Body height 157.48 cm TERMITE CONTROL SERVICER-C Ricki Griffin TERMITE CONTROL SERVICER Work Phone: [facility] 05-10-2023 07:13-0400 Body weight 74.61 kg TERMITE CONTROL SERVICER-C Ricki Griffin TERMITE CONTROL SERVICER Work Phone: [facility] 04-24-2023 18:30-0400 Diastolic blood pressure 79 mm[Hg] TERMITE CONTROL SERVICER-C Ricki Griffin TERMITE CONTROL SERVICER Work Phone: [facility] 04-24-2023 18:30-0400 Heart rate 82 /min TERMITE CONTROL SERVICER-C Ricki Griffin TERMITE CONTROL SERVICER Work Phone: [facility] 04-24-2023 18:30-0400 Respiratory rate 16 /min TERMITE CONTROL SERVICER-C Ricki Griffin TERMITE CONTROL SERVICER Work Phone: [facility] 04-24-2023 18:30-0400 SaO2% (BldA) [Mass fraction] 98 % TERMITE CONTROL SERVICER-C Ricki Griffin TERMITE CONTROL SERVICER Work Phone: [facility] 04-24-2023 18:30-0400 Systolic blood pressure 138 mm[Hg] TERMITE CONTROL SERVICER-C Ricki Griffin TERMITE CONTROL SERVICER Work Phone: [facility] 04-24-2023 14:22-0400 Body height 160.02 cm TERMITE CONTROL SERVICER-C Ricki Griffin TERMITE CONTROL SERVICER Work Phone: [facility] 04-24-2023 14:22-0400 Body mass index (BMI) [Ratio] 29.6 kg/m2 TERMITE CONTROL SERVICER-C Ricki Griffin TERMITE CONTROL SERVICER Work Phone: [facility] 04-24-2023 14:22-0400 Body temperature 97 [degF] TERMITE CONTROL SERVICER-C Ricki Griffin TERMITE CONTROL SERVICER Work Phone: [facility] 04-24-2023 14:22-0400 Body weight 75.8 kg TERMITE CONTROL SERVICER-C Ricki Holbrookpkins TERMITE CONTROL SERVICER Work Phone: [facility] 03-25-2023 14:01-0400 Body height 160.02 cm TERMITE CONTROL SERVICER-C Ricki Gaby TERMITE CONTROL SERVICER Work Phone: [facility] 03-25-2023 14:01-0400 Body mass index (BMI) [Ratio] 30.1 kg/m2 TERMITE CONTROL SERVICER-C Ricki Gaby TERMITE CONTROL SERVICER Work Phone: [facility] 03-25-2023 14:01-0400 Body weight 77.11 kg TERMITE CONTROL SERVICER-C Ricki Coke TERMITE CONTROL SERVICER Work Phone: [facility] 03-25-2023 14:01-0400 Diastolic blood pressure 71 mm[Hg] TERMITE CONTROL SERVICER-C Ricki Griffin TERMITE CONTROL SERVICER Work Phone: [facility] 03-25-2023 14:01-0400 Heart rate 72 /min TERMITE CONTROL SERVICER-C Ricki Holbrookpkins TERMITE CONTROL SERVICER Work Phone: [facility] 03-25-2023 14:01-0400 Respiratory rate 18 /min TERMITE CONTROL SERVICER-C Ricki Holbrookpkins TERMITE CONTROL SERVICER Work Phone: [facility] 03-25-2023 14:01-0400 SaO2% (BldA) [Mass fraction] 100 % TERMITE CONTROL SERVICER-C Ricki Gaby TERMITE CONTROL SERVICER Work Phone: [facility] 03-25-2023 14:01-0400 Systolic blood pressure 110 mm[Hg] TERMITE CONTROL SERVICER-C Ricki Griffin TERMITE CONTROL SERVICER Work Phone: [facility] 03-13-2023 08:59-0400 Body height 160.02 cm TERMITE CONTROL SERVICER-C Ricki Gaby TERMITE CONTROL SERVICER Work Phone: [facility] 03-13-2023 08:59-0400 Body weight 73.02 kg TERMITE CONTROL SERVICER-C Ricki Griffin TERMITE CONTROL SERVICER Work Phone: [facility] 03-13-2023 08:44-0400 Body mass index (BMI) [Ratio] 28.5 kg/m2 TERMITE CONTROL SERVICER-C Ricki Gaby TERMITE CONTROL SERVICER Work Phone: [facility] 03-13-2023 08:44-0400 Diastolic blood pressure 69 mm[Hg] TERMITE CONTROL SERVICER-C Ricki Coke TERMITE CONTROL SERVICER Work Phone: [facility] 03-13-2023 08:44-0400 Heart rate 66 /min TERMITE CONTROL SERVICER-C Ricki Coke TERMITE CONTROL SERVICER Work Phone: [facility] 03-13-2023 08:44-0400 SaO2% (BldA) [Mass fraction] 96 % TERMITE CONTROL SERVICER-C Ricki Griffin TERMITE CONTROL SERVICER Work Phone: [facility] 03-13-2023 08:44-0400 Systolic blood pressure 117 mm[Hg] TERMITE CONTROL SERVICER-C Ricki Griffin TERMITE CONTROL SERVICER Work Phone: [facility] 03-13-2023 08:25-0400 Respiratory rate 66 /min TERMITE CONTROL SERVICER-C Ricki Gaby TERMITE CONTROL SERVICER Work Phone: [facility] 02-26-2023 10:40-0400 Body temperature 97.1 [degF] TERMITE CONTROL SERVICER-C Ricki Gaby TERMITE CONTROL SERVICER Work Phone: [facility] 02-26-2023 10:40-0400 Diastolic blood pressure 96 mm[Hg] TERMITE CONTROL SERVICER-C Ricki Griffin TERMITE CONTROL SERVICER Work Phone: [facility] 02-26-2023 10:40-0400 Heart rate 79 /min TERMITE CONTROL SERVICER-C Ricki Gaby TERMITE CONTROL SERVICER Work Phone: [facility] 02-26-2023 10:40-0400 Respiratory rate 16 /min TERMITE CONTROL SERVICER-C Ricki Gaby TERMITE CONTROL SERVICER Work Phone: [facility] 02-26-2023 10:40-0400 SaO2% (BldA) [Mass fraction] 98 % TERMITE CONTROL SERVICER-C Ricki Mohrkins TERMITE CONTROL SERVICER Work Phone: [facility] 02-26-2023 10:40-0400 Systolic blood pressure 114 mm[Hg] TERMITE CONTROL SERVICER-C Ricki Gaby TERMITE CONTROL SERVICER Work Phone: [facility] 02-26-2023 08:12-0400 Body temperature 97.1 [degF] TERMITE CONTROL SERVICER-C Ricki Griffin TERMITE CONTROL SERVICER Work Phone: [facility] 02-26-2023 08:12-0400 Diastolic blood pressure 96 mm[Hg] TERMITE CONTROL SERVICER-C Ricki Griffin TERMITE CONTROL SERVICER Work Phone: [facility] 02-26-2023 08:12-0400 Heart rate 79 /min TERMITE CONTROL SERVICER-C Ricki Griffin TERMITE CONTROL SERVICER Work Phone: [facility] 02-26-2023 08:12-0400 Respiratory rate 16 /min TERMITE CONTROL SERVICER-C Ricki Griffin TERMITE CONTROL SERVICER Work Phone: [facility] 02-26-2023 08:12-0400 SaO2% (BldA) [Mass fraction] 98 % TERMITE CONTROL SERVICER-C Ricki Griffin TERMITE CONTROL SERVICER Work Phone: [facility] 02-26-2023 08:12-0400 Systolic blood pressure 114 mm[Hg] TERMITE CONTROL SERVICER-C Ricki Griffin TERMITE CONTROL SERVICER Work Phone: [facility] 02-26-2023 03:05-0400 Body mass index (BMI) [Ratio] 28.5 kg/m2 TERMITE CONTROL SERVICER-C Ricki Griffin TERMITE CONTROL SERVICER Work Phone: [facility] 02-26-2023 03:05-0400 Body weight 73.1 kg TERMITE CONTROL SERVICER-C Ricki Griffin TERMITE CONTROL SERVICER Work Phone: [facility] 02-23-2023 14:27-0400 Body height 160.02 cm TERMITE CONTROL SERVICER-C Ricki Griffin TERMITE CONTROL SERVICER Work Phone: [facility] 02-23-2023 08:15-0400 Inhaled oxygen flow rate 2 L/min TERMITE CONTROL SERVICER-C Ricki Griffin TERMITE CONTROL SERVICER Work Phone: [facility] 02-22-2023 20:18-0400 Body temperature 97.9 [degF] TERMITE CONTROL SERVICER-C Ricki Griffin TERMITE CONTROL SERVICER Work Phone: [facility] 02-22-2023 20:18-0400 Diastolic blood pressure 91 mm[Hg] TERMITE CONTROL SERVICER-C Ricki Holbrookpkins TERMITE CONTROL SERVICER Work Phone: [facility] 02-22-2023 20:18-0400 Heart rate 101 /min TERMITE CONTROL SERVICER-C Ricki Gaby TERMITE CONTROL SERVICER Work Phone: [facility] 02-22-2023 20:18-0400 Inhaled oxygen flow rate 4 L/min TERMITE CONTROL SERVICER-C Ricki Griffin TERMITE CONTROL SERVICER Work Phone: [facility] 02-22-2023 20:18-0400 Respiratory rate 22 /min TERMITE CONTROL SERVICER-C Ricki Griffin TERMITE CONTROL SERVICER Work Phone: [facility] 02-22-2023 20:18-0400 SaO2% (BldA) [Mass fraction] 92 % TERMITE CONTROL SERVICER-C Ricki Griffin TERMITE CONTROL SERVICER Work Phone: [facility] 02-22-2023 20:18-0400 Systolic blood pressure 176 mm[Hg] TERMITE CONTROL SERVICER-C Ricki Coke TERMITE CONTROL SERVICER Work Phone: [facility] 02-22-2023 16:59-0400 Body height 160.02 cm TERMITE CONTROL SERVICER-C Ricki Holbrookpkins TERMITE CONTROL SERVICER Work Phone: [facility] 02-22-2023 16:59-0400 Body mass index (BMI) [Ratio] 29 kg/m2 TERMITE CONTROL SERVICER-C Ricki Griffin TERMITE CONTROL SERVICER Work Phone: [facility] 02-22-2023 16:59-0400 Body weight 74.38 kg TERMITE CONTROL SERVICER-C Ricki Griffin TERMITE CONTROL SERVICER Work Phone: [facility] 02-22-2023 11:14-0400 Respiratory rate 22 /min TERMITE CONTROL SERVICER-C Ricki Gaby TERMITE CONTROL SERVICER Work Phone: [facility] 02-22-2023 10:33-0400 Diastolic blood pressure 83 mm[Hg] TERMITE CONTROL SERVICER-C Ricki Griffin TERMITE CONTROL SERVICER Work Phone: [facility] 02-22-2023 10:33-0400 Heart rate 65 /min TERMITE CONTROL SERVICER-C Ricki Griffin TERMITE CONTROL SERVICER Work Phone: [facility] 02-22-2023 10:33-0400 SaO2% (BldA) [Mass fraction] 96 % TERMITE CONTROL SERVICER-C Ricki Griffin TERMITE CONTROL SERVICER Work Phone: [facility] 02-22-2023 10:33-0400 Systolic blood pressure 144 mm[Hg] TERMITE CONTROL SERVICER-C Ricki Griffin TERMITE CONTROL SERVICER Work Phone: [facility] 02-22-2023 08:29-0400 Body height 160.02 cm TERMITE CONTROL SERVICER-C Ricki Griffin TERMITE CONTROL SERVICER Work Phone: [facility] 02-22-2023 08:29-0400 Body mass index (BMI) [Ratio] 29.7 kg/m2 TERMITE CONTROL SERVICER-C Ricki Griffin TERMITE CONTROL SERVICER Work Phone: [facility] 02-22-2023 08:29-0400 Body temperature 98.2 [degF] TERMITE CONTROL SERVICER-C Ricki Griffin TERMITE CONTROL SERVICER Work Phone: [facility] 02-22-2023 08:29-0400 Body weight 76 kg TERMITE CONTROL SERVICER-C Ricki Griffin TERMITE CONTROL SERVICER Work Phone: [facility] 08-14-2022 08:45-0400 Body height 160 cm Aracelis Lozoya MD Work Phone: [facility] 08-14-2022 08:45-0400 Body weight 78.47 kg Aracelis Lozoya MD Work Phone: [facility] 08-14-2022 08:45-0400 Diastolic blood pressure 76 mm[Hg] Aracelis Lozoya MD Work Phone: [facility] 08-14-2022 08:45-0400 Systolic blood pressure 132 mm[Hg] Aracelis Lozoya MD Work Phone: [facility] 08-09-2022 12:18-0400 Diastolic blood pressure 80 mm[Hg] Sony Cedeño MD Work Phone: [facility] 08-09-2022 12:18-0400 Heart rate 71 /min Sony Cedeño MD Work Phone: [facility] 08-09-2022 12:18-0400 Respiratory rate 16 /min Sony Cedeño MD Work Phone: [facility] 08-09-2022 12:18-0400 SaO2% (BldA) [Mass fraction] 94 % Sony Cedeño MD Work Phone: [facility] 08-09-2022 12:18-0400 Systolic blood pressure 146 mm[Hg] Sony Cedeño MD Work Phone: [facility] 08-09-2022 10:39-0400 Body temperature 97.2 [degF] Sony Cedeño MD Work Phone: [facility] 07-17-2022 14:54-0400 Body height 160 cm Sony Cedeño MD Work Phone: [facility] 07-17-2022 14:54-0400 Body temperature 96.8 [degF] Sony Cedeño MD Work Phone: [facility] 07-17-2022 14:54-0400 Body weight 78.47 kg Sony Cedeño MD Work Phone: [facility] 07-17-2022 14:54-0400 Diastolic blood pressure 64 mm[Hg] Sony Cedeño MD Work Phone: [facility] 07-17-2022 14:54-0400 Heart rate 68 /min Sony Cedeño MD Work Phone: [facility] 07-17-2022 14:54-0400 SaO2% (BldA) [Mass fraction] 96 % Sony Cedeño MD Work Phone: [facility] 07-17-2022 14:54-0400 Systolic blood pressure 124 mm[Hg] Sony Cedeño MD Work Phone: [facility] 07-14-2022 18:05-0400 Body height 157.48 cm [facility] 07-14-2022 18:05-0400 Body mass index (BMI) [Ratio] 30.3 kg/m2 [facility] 07-14-2022 18:05-0400 Body temperature 97.8 [degF] [facility] 07-14-2022 18:05-0400 Body weight 75.29 kg [facility] 07-14-2022 18:05-0400 Diastolic blood pressure 62 mm[Hg] [facility] 07-14-2022 18:05-0400 Heart rate 88 /min [facility] 07-14-2022 18:05-0400 Respiratory rate 16 /min [facility] 07-14-2022 18:05-0400 SaO2% (BldA) [Mass fraction] 98 % [facility] 07-14-2022 18:05-0400 Systolic blood pressure 128 mm[Hg] [facility] 07-12-2022 15:03-0400 Diastolic blood pressure 79 mm[Hg] [facility] 07-12-2022 15:03-0400 Heart rate 72 /min [facility] 07-12-2022 15:03-0400 Respiratory rate 16 /min [facility] 07-12-2022 15:03-0400 SaO2% (BldA) [Mass fraction] 94 % [facility] 07-12-2022 15:03-0400 Systolic blood pressure 173 mm[Hg] [facility] 07-12-2022 10:45-0400 Body height 157.48 cm [facility] Work Phone: 07-12-2022 10:45-0400 Body mass index (BMI) [Ratio] 30.4 kg/m2 [facility] 07-12-2022 10:45-0400 Body temperature 96.2 [degF] [facility] 07-12-2022 10:45-0400 Body weight 75.65 kg [facility] Encounters Encounter Date Encounter Type Care Provider Facility Start: 03-30-2025 Non-patient / Non-visit Lashay DARLING -[facility] Work Phone: Start: 03-30-2025 ambulatory Lashay Prater NP Facili ty:[facility] Start: 03-29-2025 Non-patient / Non-visit [facility]. Bill CLAY -[facility] Start: 03-29-2025 End: 03-29-2025 ambulatory Ricki Griffin TERMITE CONTROL SERVICER-C Work Phone: [facility] Work Phone: Start: 03-29-2025 End: 03-29-2025 Patient encounter procedure Austen Castro TERMITE CONTROL SERVICER-C -Cardiovascular Services Work Phone: Start: 03-29-2025 End: 03-29-2025 ambulatory Austen Castro TERMITE CONTROL SERVICER Facility:[facility] Start: 03-12-2025 End: 03-12-2025 ambulatory Ricki Griffin TERMITE CONTROL SERVICER-C Work Phone: [facility] Work Phone: Start: 03-12-2025 End: 03-12-[address] Jose Antonio Reeves MD -Laboratory Work Phone: Start: 03-12-2025 End: 03-12-2025 ambulatory Jose Antonio Reeves Facility:[facility] Start: 01-06-2025 End: 01-06-2025 Patient encounter procedure Austen Castro NP-C -[facility] Work Phone: Start: 01-06-2025 End: 01-06-2025 ambulatory Austen Castro TERMITE CONTROL SERVICER [facility] Start: 12-21-2024 End: 12-21-2024 Telephone encounter Aracelis Lozoya MD Work Phone: OB/Gynecology Comment on above: Results Start: 12-07-2024 End: 12-07-2024 Patient encounter procedure Ricki Griffin TERMITE CONTROL SERVICER-C -Laboratory Work Phone: Start: 12-07-2024 End: 12-07-2024 ambulatory Ricki Griffin TERMITE CONTROL SERVICER Facility:[facility] Start: 11-23-2024 End: 01-23-2025 Follow-up encounter Aracelis Lozoya MD Work Phone: OB/Gynecology Start: 11-19-2024 End: 11-19-2024 ambulatory ARACELIS LOZOYA Facility:[facility] Start: 11-19-2024 End: 11-19-2024 Subsequent hospital visit by physician Bone Density [facility] Work Phone: Radiology Comment on above: Encounter for screen ing for osteoporosis [Z13.820] Start: 09-21-2024 End: 09-21-2024 ambulatory ARACELIS LOZOYA Facility:[facility] Start: 09-21-2024 End: 09-21-2024 Patient encounter procedure Aracelis Lozoya MD Work Phone: OB/Gynecology Comment on above: Encounter for gyneco logical examination (general) (routine) without abnormal findings (Primary Dx); Encounter for screening for human papillomavirus (HPV); Pap smear for cervical cancer screening; Encounter for screening mammogram for breast cancer; Encounter for screening for osteoporosis; Asymptomatic postmenopausal status Start: 09-21-2024 End: 09-21-2024 Patient encounter status Aracelis Lozoya MD Work Phone: [facility] Start: 09-16-2024 End: 09-16-2024 ambulatory RICKI GRIFFIN Facility:[facility] Start: 09-16-2024 End: 09-16-2024 Subsequent hospital visit by physician Screen Mammo [facility] Mammogram Comment on above: Encounter for screen ing mammogram for malignant neoplasm of breast [Z12.31] Start: 06-23-2024 End: 06-23-2024 ambulatory Lashay Prater NP Facility[place] Start: 06-02-2024 End: 06-02-2024 ambulatory Ricki Griffin NP Facility:[facility] Start: 12-27-2023 End: 12-27-2023 ambulatory RICKI GRIFFIN Facility:[facility] Start: 12-27-2023 End: 12-27-2023 Patient encounter procedure Shay Teresa APRN.CNP Work Phone: Cardiology Comment on above: Chronic systolic hea rt failure (HCC) (Primary Dx); Primary hypertension; Coronary artery disease involving [place] coronary artery of [place] heart without angina pectoris; Hyperlipidemia, unspecified hyperlipidemia type; Ischemic cardiomyopathy Start: 11-13-2023 End: 11-13-2023 ambulatory TERMITE CONTROL SERVICER-C Ricki Griffin TERMITE CONTROL SERVICER Work Phone: [facility] Work Phone: Start: 11-13-2023 End: 11-13-2023 Patient encounter procedure TERMITE CONTROL SERVICER-Fatimah Griffin TERMITE CONTROL SERVICER Work Phone: [facility]-Laboratory Work Phone: Start: 09-19-2023 Non-patient / Non-visit TERMITE CONTROL SERVICER-C Meenu Griffin TERMITE CONTROL SERVICER Work Phone: [facility] Work Phone: Start: 09-18-2023 Non-patient / Non-visit TERMITE CONTROL SERVICER-C Meenu Griffin TERMITE CONTROL SERVICER Work Phone: [facility] Start: 09-18-2023 End: 09-18-2023 ambulatory TERMITE CONTROL SERVICER-C Ricki Griffin TERMITE CONTROL SERVICER Work Phone: [facility] Work Phone: Start: 09-18-2023 End: 09-18-2023 Patient encounter procedure TERMITE CONTROL SERVICER-Fatimah Griffin TERMITE CONTROL SERVICER [facility] Start: 09-17-2023 End: 09-17-2023 Patient encounter procedure TERMITE CONTROL SERVICER-C Ricki Griffin TERMITE CONTROL SERVICER Work Phone: [facility] Work Phone: Start: 08-30-2023 End: 08-30-2023 Subsequent hospital visit by physician Screen Mammo [facility] Mammogram Comment on above: Encounter for screen ing mammogram for malignant neoplasm of breast [Z12.31] Start: 07-12-2023 End: 07-12-2023 ambulatory RICKI GRIFFIN Facility:[facility] Start: 07-12-2023 End: 07-12-2023 Patient encounter procedure Shay Teresa GRAB JACK WORKER Work Phone: Cardiology Comment on above: Chronic systolic hea rt failure (HCC) (Primary Dx); Primary hypertension; Coronary artery disease involving [place] coronary artery of [place] heart without angina pectoris; Hyperlipidemia, unspecified hyperlipidemia type; Ischemic cardiomyopathy Start: 06-26-2023 End: 06-26-2023 Patient encounter procedure TERMITE CONTROL SERVICER-C Ricki Griffin TERMITE CONTROL SERVICER Work Phone: [facility] Work Phone: Start: 06-07-2023 End: 06-07-2023 ambulatory RICKI GRIFFIN Facility:[facility] Start: 05-22-2023 End: 06-13-2023 ambulatory TERMITE CONTROL SERVICER-C Ricki Griffin TERMITE CONTROL SERVICER Work Phone: [facility] Work Phone: Start: 05-22-2023 End: 06-13-2023 Discharged Recurring TERMITE CONTROL SERVICER-C Ricki Griffin TERMITE CONTROL SERVICER Work Phone: [facility]-Cardiac Rehab Work Phone: Start: 05-22-2023 Registered Recurring TERMITE CONTROL SERVICER-C Froylan Griffin TERMITE CONTROL SERVICER Work Phone: [facility]Cardiac [facility]hab Work Phone: Start: 05-21-2023 Non-patient / Non-visit TERMITE CONTROL SERVICER-C Meenu Griffin TERMITE CONTROL SERVICER Work Phone: [facility] Start: 05-21-2023 End: 05-21-2023 ambulatory TERMITE CONTROL SERVICER-C Ricki Griffin TERMITE CONTROL SERVICER Work Phone: [facility] Work Phone: Start: 05-21-2023 End: 05-21-2023 Patient encounter procedure TERMITE CONTROL SERVICER-C Ricki Griffin TERMITE CONTROL SERVICER [facility] Start: 05-13-2023 End: 05-13-2023 ambulatory TERMITE CONTROL SERVICER-C Ricki Griffin TERMITE CONTROL SERVICER Work Phone: [facility] Work Phone: Start: 05-13-2023 End: 05-13-2023 Discharged Recurring TERMITE CONTROL SERVICER-C Ricki Griffin TERMITE CONTROL SERVICER Work Phone: [facility]-Cardiac Rehab Work Phone: Start: 05-03-2023 End: 05-03-2023 Patient encounter procedure TERMITE CONTROL SERVICER-C Ricki Griffin TERMITE CONTROL SERVICER Work Phone: [facility]-Laboratory Work Phone: Start: 04-24-2023 End: 04-24-2023 Emergency department patient visit TERMITE CONTROL SERVICER-C Ricki Griffin TERMITE CONTROL SERVICER Work Phone: [facility]-Emergency Department Work Phone: Start: 04-22-2023 Registered Recurring TERMITE CONTROL SERVICER-C Froylan Griffin TERMITE CONTROL SERVICER Work Phone: [facility]Cardiac Rehab Work Phone: Start: 04-12-2023 End: 04-12-2023 ambulatory TERMITE CONTROL SERVICER-C Ricki Griffin TERMITE CONTROL SERVICER Work Phone: [facility] Work Phone: Start: 04-12-2023 End: 04-12-2023 Discharged Recurring TERMITE CONTROL SERVICER-C Ricki Griffin TERMITE CONTROL SERVICER Work Phone: 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 Start: 03-25-2023 End: 03-25-2023 Patient encounter procedure TERMITE CONTROL SERVICER-C Ricki Griffin TERMITE CONTROL SERVICER Work Phone: [facility] Work Phone: Start: 03-22-2023 Non-patient / Non-visit TERMITE CONTROL SERVICER-C Meenu Griffin TERMITE CONTROL SERVICER Work Phone: [facility] Work Phone: Start: 03-14-2023 End: 03-14-2023 Patient encounter procedure TERMITE CONTROL SERVICER-C Ricki Griffin TERMITE CONTROL SERVICER Work Phone: [facility] Start: 03-13-2023 End: 03-13-2023 ambulatory TERMITE CONTROL SERVICER-C Ricki Griffin TERMITE CONTROL SERVICER Work Phone: [facility] Work Phone: Start: 03-13-2023 End: 03-13-2023 Patient encounter procedure TERMITE CONTROL SERVICER-C Ricki Griffin TERMITE CONTROL SERVICER Work Phone: [facility]-Cardiac Rehab Start: 03-07-2023 End: 03-07-2023 ambulatory SHAY TERESA Facility:[facility] Start: 03-04-2023 Non-patient / Non-visit TERMITE CONTROL SERVICER-C Meenu Griffin TERMITE CONTROL SERVICER Work Phone: [facility] Start: 02-26-2023 End: 03-01-2023 Evaluation and management of inpatient OLY GUZMÁN Facility:[facility] Start: 02-26-2023 Non-patient / Non-visit TERMITE CONTROL SERVICER-C Meenu Griffin TERMITE CONTROL SERVICER Work Phone: [facility] Inpatient Physicians Start: 02-26-2023 Non-patient / Non-visit TERMITE CONTROL SERVICER-C Meenu Griffin TERMITE CONTROL SERVICER Work Phone: [facility] Start: 02-25-2023 Non-patient / Non-visit TERMITE CONTROL SERVICER-C Meenu Griffin TERMITE CONTROL SERVICER Work Phone: [facility] Start: 02-25-2023 Non-patient / Non-visit TERMITE CONTROL SERVICER-C Meenu Griffin TERMITE CONTROL SERVICER Work Phone: [facility] Inpatient Physicians Start: 02-24-2023 Non-patient / Non-visit TERMITE CONTROL SERVICER-C Meenu Griffin TERMITE CONTROL SERVICER Work Phone: [facility] Inpatient Physicians Start: 02-23-2023 Non-patient / Non-visit TERMITE CONTROL SERVICER-C Meenu Griffin TERMITE CONTROL SERVICER Work Phone: [facility] Inpatient Physicians Start: 02-23-2023 Non-patient / Non-visit TERMITE CONTROL SERVICER-C Meenu Griffin TERMITE CONTROL SERVICER Work Phone: [facility] Start: 02-22-2023 End: 02-26-2023 Evaluation and management of inpatient TERMITE CONTROL SERVICER-C Ricki Griffin TERMITE CONTROL SERVICER Work Phone: [facility]-Intensive Care Unit Start: 02-22-2023 End: 02-22-2023 Emergency department patient visit TERMITE CONTROL SERVICER-C Ricki Griffin TERMITE CONTROL SERVICER Work Phone: [facility]-Emergency Department Start: 02-21-2023 Non-patient / Non-visit TERMITE CONTROL SERVICER-C Meenu Griffin TERMITE CONTROL SERVICER Work Phone: [facility] Start: 02-21-2023 End: 02-21-2023 ambulatory TERMITE CONTROL SERVICER-C Ricki Griffin TERMITE CONTROL SERVICER Work Phone: [facility] Work Phone: Start: 02-21-2023 End: 02-21-2023 Patient encounter procedure TERMITE CONTROL SERVICER-Fatimah Griffin TERMITE CONTROL SERVICER Work Phone: [facility]-Cardiovascular Services Start: 02-08-2023 End: 02-08-2023 Patient encounter procedure TERMITE CONTROL SERVICER-C Ricki Griffin TERMITE CONTROL SERVICER Work Phone: [facility]-Laboratory Start: 11-28-2022 Registered Recurring TERMITE CONTROL SERVICER-Fatimah Griffin TERMITE CONTROL SERVICER Work Phone: [facility]-Physical Therapy Start: 10-20-2022 End: 10-20-[address] [facility] Work Phone: Start: 10-20-2022 End: 10-20-2022 Patient encounter procedure [facility]-Radiology, [facility] Start: 09-21-2022 End: 09-26-2022 ambulatory SAMEER HILLMAN DIGITAL SALES REPRESENTATIVE-GRAB JACK WORKER Facility:B Start: 09-21-2022 End: 09-25-2022 Outreach Lab SAMEER HILLMAN DIGITAL SALES REPRESENTATIVE-GRAB JACK WORKER [facility] Start: 09-07-2022 End: 09-07-2022 ambulatory Jackie Graf OLIVEIRA Work Phone: General Surgery Comment on above: Other gastritis with out bleeding (Primary Dx) Start: 09-07-2022 End: 09-07-2022 Telemedicine consultation with patient Jackie Graf OLIVEIRA [facility] Start: 08-15-2022 Documentation procedure Mammog anthony Coordinator [facility] Start: 08-15-2022 Letter encounter Mammography Coordinator [facility] Department Start: 08-14-2022 End: 08-14-2022 Subsequent hospital visit by physician Screen Mammo [facility] Mammogram Start: 08-14-2022 End: 08-14-2022 Patient encounter procedure Aracelis Lozoya MD Work Phone: OB/Gynecology Comment on above: Encounter for gyneco logical examination (general) (routine) without abnormal findings (Primary Dx); Encounter for screening mammogram for malignant neoplasm of breast; Screening for osteoporosis Start: 08-14-2022 End: 08-14-2022 Patient encounter status Aracelis Lozoya MD Work Phone: OB/Gynecology Start: 08-09-2022 End: 08-09-2022 Subsequent hospital visit by physician Sony Cedeño MD Work Phone: Ambulatory Surgery Comment on above: Epigastric pain [R10 .13] Start: 08-02-2022 Telephone encounter Sony sotelo MD Work Phone: General Surgery Comment on above: Patient Question Start: 07-17-2022 End: 07-17-2022 Patient encounter procedure Sony Cedeño MD Work Phone: General Surgery Comment on above: Epigastric pain (Magdalene alix Dx); Nausea and vomiting, unspecified vomiting type Start: 07-14-2022 End: 07-14-2022 Emergency department patient visit [facility]-Emergency Department Start: 07-12-2022 End: 07-12-2022 Emergency department patient visit [facility]-Emergency Department Start: 03-31-2022 End: 03-31-2022 Patient encounter procedure [facility]-Laboratory Procedures Date Procedure Procedure Detail Performing Clinician Start: 12-07-2024 Measurement of renal function Ricki mackey TERMITE CONTROL SERVICER-C Work Phone: Comment on above: GFR Calc Start: 12-07-2024 Microalbuminuria measurement Ricki cornelius TERMITE CONTROL SERVICER-C Work Phone: Start: 12-07-2024 Urine microalbumin/creatinine ratio measurement Ricki Griffin TERMITE CONTROL SERVICER-C Work Phone: Start: 12-07-2024 Vitamin D, 25-hydroxy measurement Neeraj Griffin TERMITE CONTROL SERVICER-C Work Phone: Comment on above: Vitamin D 25(OH) Status Range Deficiency <20 ng/mL (50nmol/L) Insufficiency 20 - 30 ng/mL (50 - 75 nmol/L) Sufficiency 30 - 100 ng/mL (75 - 250 nmol/L) Toxicity >100 ng/mL (>250 nmol/L) Start: 09-16-2024 Screening digital breast tomosynthesis zaki Lozoya MD Work Phone: Start: 02-27-2023 History of appendectomy History of appendectomy Melissa Koroma APRN.GRAB JACK WORKER Work Phone: Start: 02-27-2023 History of cholecystectomy History of cholecystectomy Melissa Koroma DIGITAL SALES REPRESENTATIVE.GRAB JACK WORKER Work Phone: Start: 02-23-2023 Streptococcus pneumoniae Antigen (M TERMITE CONTROL SERVICER-C Ricki Griffin TERMITE CONTROL SERVICER Work Phone: Start: 02-22-2023 Plain chest X-ray TERMITE CONTROL SERVICER-C Ricki Griffin TERMITE CONTROL SERVICER Work Phone: Start: 02-22-2023 Computed tomography of abdomen and pelvis with intravenous contrast TERMITE CONTROL SERVICER-C Ricki Griffin TERMITE CONTROL SERVICER Work Phone: Start: 02-22-2023 Bacteria identified in Blood by Culture TERMITE CONTROL SERVICER-C Ricki Griffin TERMITE CONTROL SERVICER Work Phone: Start: 02-08-2023 Plain chest X-ray TERMITE CONTROL SERVICER-C Ricki Griffin TERMITE CONTROL SERVICER Work Phone: Start: 10-20-2022 Plain x-ray of pelvis and lower extremity Start: 10-20-2022 X-ray of lumbosacral spine Start: 08-14-2022 End: 08-14-2022 Mammography Aracelis Lozoya MD Work Phone: Start: 08-09-2022 Level iv surg pathology gross&microscopic exam Sony Cedeño MD Work Phone: Start: 08-09-2022 Esophagogastroduodenoscopy transoral diagnostic Sony Cedeño MD Work Phone: Start: 07-12-2022 Computed tomography of abdomen and pelvis with contrast Start: 05-16-2021 Mammography Sony Cedeño MD Work Phone: Start: 09-13-2016 Colonoscopy Sony Cedeño MD Work Phone: Start: 08-02-2012 Lipid 1996 panel - Serum or Plasma Shay Teresa DIGITAL SALES REPRESENTATIVE.GRAB JACK WORKER Work Phone: Bacteria identified in Blood by Culture TERMITE CONTROL SERVICER-C Ricki Griffin TERMITE CONTROL SERVICER Work Phone: Cardiac catheterization TRISHA MEJIA RAFY DIGITAL SALES REPRESENTATIVE-GRAB JACK WORKER Cholecystectomy SAMEER TRUPTI REESE DIGITAL SALES REPRESENTATIVE-GRAB JACK WORKER Entire heart (body structure) SAMEER RAFY DIGITAL SALES REPRESENTATIVE-GRAB JACK WORKER Comment on above: stent History of appendectomy History of appendectomy History of cholecystectomy Hx of cholecys tectomy MRI guided biopsy of right breast SAMEERCheri HILLMAN DIGITAL SALES REPRESENTATIVE-GRAB JACK WORKER Placement of stent i n cardiac conduit SAMEER RAFY DIGITAL SALES REPRESENTATIVE-GRAB JACK WORKER Plan of Treatment Date Care Activity Detail Author Start: 09-21-2029 Screening for malignant neoplasm of cervix Cervical Cancer Screening [facility] Start: 09-13-2026 Colonoscopy COLONOSCOPY [facility] Start: 09-13-2026 COLORECTAL CANCER SCREENING COLORECTAL CANCER SCREENING [facility] Start: 09-13-2026 Screening for malignant neoplasm of colon [facility] Start: 05-16-2026 HPV TESTING HPV TESTING [facility] Start: 05-16-2026 PAP TESTING PAP TESTING [facility] Start: 05-16-2026 Screening for malignant neoplasm of cervix [facility] Start: 03-01-2026 DIABETES SCREEN DIABETES SCREEN [facility] Start: 03-01-2026 Diabetes Screening Diabetes Screening [facility] Start: 09-23-2025 End: 09-23-2025 Patient encounter procedure 09/23/2025 11:20 AM EST Office Visit OB/Gynecology [address] [place] [address] Aracelis Mccormick MD [address] [place] [address] Annual OB/Gynecology Comment on above: Annual Start: 09-23-2025 End: 09-23-2025 Patient encounter procedure 09/23/2025 10:10 AM EST Appointment Mammogram [address] [place] [address] Encounter for screening mammogram for breast cancer [Z12.31] Mammogram Comment on above: Encounter for screening mammogram for br east cancer [Z12.31] Start: 09-16-2025 Screening for malignant neoplasm of breast Mammogram Screening [facility] Start: 11-19-2024 End: 11-19-2024 Patient encounter procedure 11/19/2024 3:25 PM EST Appointment Radiology [address] [place] [id number] Asymptomatic postmenopausal status [Z78.0] Radiology Comment on above: Asymptomatic postmenopausal status [Z78. 0] Start: 09-17-2024 End: 09-17-2024 Patient encounter procedure 09/17/2024 1:20 PM EST Office Visit OB/Gynecology [address] [place] [address] Aracelis Mccormick MD [address] [place] [place] [address] 2 year annual OB/Gynecology Comment on above: 2 year annual Start: 08-30-2024 Screening for malignant neoplasm of breast Mammogram Screening [facility] Start: 06-14-2024 Covid-19 Vaccine ( season) Covid-19 Vaccine ( season) [facility] Start: 06-14-2024 Influenza vaccination Influenza Vaccine (#1) [facility] Start: 03-07-2024 BP CONTROLLED (<130/80) BP CONTROLLED (<130/80) [facility] Start: 02-28-2024 PNEUMOCOCCAL (2 - PCV) PNEUMOCOCCAL (2 - PCV) [facility] Start: 02-28-2024 Pneumococcal vaccination [facility] Start: 02-28-2024 Pneumococcal Vaccine: 50+ (2 of 2 - PCV) Pneumococcal Vaccine: 50+ (2 of 2 - PCV) [facility] Start: 10-14-2023 Depression Assessment Depression Assessment [facility] Start: 08-14-2023 Mammography [facility] Start: 07-17-2023 BP CONTROLLED (<130/80) BP CONTROLLED (<130/80) [facility] Start: 06-14-2023 Covid-19 Vaccine () Covid-19 Vaccine () [facility] Start: 06-14-2023 Influenza vaccination [facility] Start: 03-04-2023 Patient referral [facility] Work Phone: Start: 02-28-2023 Electrocardiographic procedure [facility] Start: 02-27-2023 Electrocardiographic procedure [facility] Start: 02-26-2023 Patient discharge [facility] Start: 02-25-2023 Cardiac monitoring [facility] Start: 02-25-2023 Cardiac rehabilitation - phase [address] [facility] Start: 02-25-2023 Notification of physician [facility] Start: 02-25-2023 Patient discharge [facility] Start: 02-25-2023 Systemic arterial pressure monitoring [facility] Start: 02-25-2023 Taking patient vital signs [facility] Start: 02-25-2023 Vascular disease risk assessment [facility] Start: 02-25-2023 Vital signs measurements [facility] Start: 02-25-[address] [facility] Start: 02-23-2023 Referral to delivery sales worker [facility] Start: 02-22-2023 Blood culture [facility] Start: 02-22-2023 Application of intermittent pneumatic compression device [facility] Start: 02-22-2023 Following clinical pathway protocol [facility] Start: 02-22-2023 Aspiration precautions [facility] Start: 02-22-2023 Assessment of risk of venous thromboembolism [facility] Start: 02-22-2023 Cardiac monitoring [facility] Start: 02-22-2023 Catheterization of vein [facility] Start: 02-22-2023 Chart related administrative procedure [facility] Start: 02-22-2023 Insertion of catheter into peripheral vein [facility] Start: 02-22-2023 Measuring intake and output [facility] Start: 02-22-2023 Notification of physician [facility] Start: 02-22-2023 Oxygen therapy [facility] Start: 02-22-2023 Providing care according to standard [facility] Start: 02-22-2023 Referral to gastroenterology service [facility] Start: 02-22-2023 Vital signs measurements [facility] Start: 02-22-[address] [facility] Start: 02-22-2023 Verification routine [facility] Start: 02-22-2023 End: 02-22-2023 Blood culture [facility] Start: 02-22-2023 Legionella pneumophila Ag [Presence] in Urine [facility] Start: 02-22-2023 Streptococcus pneumoniae antigen assay [facility] Start: 02-22-2023 Admission procedure [facility] Start: 02-22-2023 Patient referral to dietitian [facility] Start: 10-14-2022 DEPRESSION ASSESSMENT DEPRESSION ASSESSMENT [facility] Start: 06-14-2022 Influenza vaccination INFLUENZA (#1) [facility] Start: 05-16-2022 Mammography MAMMOGRAM [facility] Start: 2022 RSV Vaccine (1 - 1-dose 60+ series) RSV Vaccine (1 - 1-dose 60+ series) [facility] Start: 2022 RSV Vaccine (1 - Risk 60-74 years 1-dose series) RSV Vaccine (1 - Risk 60-74 years 1-dose series) [facility] Start: 11-23-2021 COVID-19 VACCINE (5 - Booster for Pfizer series) COVID-19 VACCINE (5 - Booster for Pfizer series) [facility] Start: 11-23-2021 COVID-19 VACCINE (5 - Booster) COVID-19 VACCINE (5 - Booster) [facility] Start: 11-23-2021 Covid-19 Vaccine (6 - Pfizer series) Covid-19 Vaccine (6 - Pfizer series) [facility] Start: 10-14-2021 DEPRESSION ASSESSMENT DEPRESSION ASSESSMENT [facility] Start: 08-22-2019 DIABETES SCREEN DIABETES SCREEN [facility] Start: 08-02-2017 Lipid 1996 panel - Serum or Plasma Lipid Screening [facility] Start: 08-02-2017 Lipid panel Lipid Screening [facility] Start: 08-02-2017 LIPID SCREEN LIPID SCREEN [facility] Start: 2012 SHINGRIX VACCINE (1 of 2) SHINGRIX VACCINE (1 of 2) [facility] Start: 2007 COLOGUARD (FIT-DNA) COLOGUARD (FIT-DNA) [facility] Start: [address] COLONOGRAPHY [facility] Start: 2007 FECAL OCCULT BLOOD FECAL OCCULT BLOOD [facility] Start: 2007 Screening for malignant neoplasm of colon [facility] Start: 2007 SIGMOIDOSCOPY SIGMOIDOSCOPY [facility] Start: 1992 Zoledronic acid therapy ALPHA-1 ANTITRYPSIN DEFICIENCY SCREENING [facility] Start: 1981 Urine microalbumin profile [facility] Start: 1980 ANNUAL PCP TEAM CHRONIC DISEASE VISIT ANNUAL PCP TEAM CHRONIC DISEASE VISIT [facility] Start: 1980 Anxiety Screening Anxiety Screening [facility] Start: 1980 BP CONTROLLED (<130/80) BP CONTROLLED (<130/80) [facility] Start: 1980 Depression Screening Depression Screening [facility] Start: 1980 Hepatitis B surface antibody level LDL CHOLESTEROL [facility] Start: 1980 HEPATITIS C SCREENING HEPATITIS C SCREENING [facility] Start: 1980 Hepatitis C screening Hepatitis C Screening [facility] Start: 1980 HIV SCREENING HIV SCREENING [facility] Start: 1980 HIV screening HIV Screening [facility] Start: 1980 SPIROMETRY SPIROMETRY [facility] Start: 1968 PNEUMOCOCCAL (1 - PCV) PNEUMOCOCCAL (1 - PCV) [facility] Bacteria identified in Blood by Culture Blood Culture [facility] End: 10-21-2025 BD DXA TRABECULAR BONE SCORE (TBS) BD DXA TRABECULAR BONE SCORE (TBS) Radiology Routine Encounter for screening for osteoporosis Asymptomatic postmenopausal status 1 Occurrences starting 09/21/2024 until 10/21/2025 [facility] Comment on above: 1 Occurrences starting 09/21/2024 until 10/21/2025 BD DXA TRABECULAR JOHNATHON NE SCORE (TBS) BD DXA TRABECULAR BONE SCORE (TBS) Radiology Routine Encounter for screening for osteoporosis Asymptomatic postmenopausal status 11/19/2024 3:47 PM EST [facility] End: 10-21-2025 DBT Breast - bilateral screening JON SCREENING W JOSHUA Radiology Routine Encounter for screening mammogram for breast cancer 1 Occurrences starting 09/21/2024 until 10/21/2025 [facility] Work Phone: Comment on above: 1 Occurrences starting 09/21/2024 until 10/21/2025 End: 09-13-2023 Dxa bone density study 1/> sites axial skel DXA-AXIAL SKELETON Radiology Routine Screening for osteoporosis 1 Occurrences starting 08/14/2022 until 09/13/2023 [facility] Work Phone: Comment on above: 1 Occurrences starting 08/14/2022 until 09/13/2023 End: 10-21-2025 DXA Skeletal system.axial Views for bone density DXA-AXIAL SKELETON Radiology Routine Encounter for screening for osteoporosis Asymptomatic postmenopausal status 1 Occurrences starting 09/21/2024 until 10/21/2025 [facility] Comment on above: 1 Occurrences starting 09/21/2024 until 10/21/2025 DXA Skeletal system. axial Views for bone density DXA-AXIAL SKELETON Radiology Routine Encounter for screening for osteoporosis Asymptomatic postmenopausal status 11/19/2024 3:47 PM EST [facility] Work Phone: End: 07-17-2023 EGD DIAGNOSTIC EGD DIAGNOSTIC Endoscopy Routine Epigastric pain Nausea and vomiting, unspecified vomiting type 1 Occurrences starting 07/17/2022 until 07/17/2023 [facility] Work Phone: Comment on above: 1 Occurrences starting 07/17/2022 until 07/17/2023 Lactic acid measurement [facility] Work Phone: PAP TEST PAP TEST Lab Jeremi marcie Encounter for screening for human papillomavirus (HPV) Pap smear for cervical cancer screening 09/21/2024 3:58 PM EST [facility] Patient Education [facility] Work Phone: [facility] referral [facility] Work Phone: [facility] Immunizations Immunization Date Immunization Notes Care Provider [facility] 02-27-2023 pneumococcal polysaccharide vaccine, 23 valent Melissa Koroma DIGITAL SALES REPRESENTATIVE.GRAB JACK WORKER Work Phone: [facility] 01-27-2021 SARS-CoV-2 mRNA (tozinameran) vaccine SAMEER HILLMAN DIGITAL SALES REPRESENTATIVE-GRAB JACK WORKER [place] [employer] 01-26-2021 COVID-19 original vaccine, age 12+ yr, monovalent (PFIZER-BIONTECH - PURPLE TOP) Sony Cedeño MD Work Phone: [facility] Work Phone: 01-06-2021 SARS-CoV-2 mRNA (tozinameran) vaccine SAMEER HILLMAN DIGITAL SALES REPRESENTATIVE-GRAB JACK WORKER [place] [employer] 12-26-2020 COVID-19 original vaccine, age 12+ yr, monovalent (PFIZER-BIONTECH - PURPLE TOP) Sony Cedeño MD Work Phone: [facility] Work Phone: Payers Date Payer Category Payer Self-pay [id number] 2015 [employer] BLUE ACCE SS PPO [id number] 2015 Unknown [employer] [place] ACCE SS PPO [id number] 2015-Present [id number] [place], [place] [address] PPO [id number] 2015 Unknown [id number] 1960 Unknown [id number] Unknown [facility] PACKAGE PLAN [phone] [id number] Unknown [id number] Unknown [id number] Unknown [id number] Unknown [id number] Unknown [id number] Unknown [id number] Unknown [id number] Unknown [id number] Social History Date Type Detail Facility Start: 04-20-2021 End: 09-17-2023 Tobacco smoking status ALIS Unknown if ever smoked [facility] Start: 2021 Occasional [facility] Start: 2021 None [facility] Start: 2021 Homeless [facility] Start: 2021 Cigarettes [facility] Start: 1960 Sex Assigned At Female [facility] Start: 07-06-2015 Tobacco smoking stat us ALIS Smokes tobacco daily [facility] Start: 02-22-2003 End: 02-22-2023 History of tobacco use Cigarette Smoker [facility] Start: 07-06-2015 End: 12-27-2023 Cigarettes smoked current (pack per day) - Reported 0.5 [facility] Start: 07-06-2015 End: 09-21-2024 Tobacco use and exposure Smokeless tobacco non-user [facility] Start: 07-17-2022 Alcohol intake Current non-dr trans router of alcohol (finding) [facility] Start: 1960 Sex Assigned At Not on file [facility] Start: 07-07-2022 End: 08-14-2022 Exposure to SARS-CoV-2 (event) Not sure [facility] Start: 08-14-2022 End: 09-21-2024 Alcohol intake Current drinker of alcohol (finding) [facility] Start: 07-03-2019 Tobacco smoking status Heavy t obacco smoker (finding) [facility] Start: 02-27-2023 End: 09-21-2024 Tobacco smoking status NHIS Ex-smoker [facility] Work Phone: Start: 02-22-2003 End: 02-22-2023 History of tobacco use Current smoker [facility] Work Phone: Start: 07-12-2023 End: 12-27-2023 Tobacco use panel [facility] National Score (1-10 0), lower number is lower risk 78 [facility] Start: 01-06-2025 Tobacco smoking stat us NHIS Current Light tobacco smoker [facility] Medical Equipment Procedure Code Equipment Code Equipment Origin al Text Equipment Identifier Dates Drug-eluting coronary artery stent, [id number] lymer-coated [id number] FDA Start: 02-25-2023 Goals Date Patient Goal Desired Activity /State Functional Status Date Assessment Result Facility 03-01-2023 Are you deaf, or do you have serious difficulty hearing No 03/01/2023 4:39 PM Zak Sharma, KARIN No [facility] 03-01-2023 Are you blind, or do you have serious difficulty seeing, even when wearing glasses No 03/01/2023 4:39 PM Zak Sharma, RN No [facility] 03-01-2023 Do you have serious difficulty walking or climbing stairs No 03/01/2023 4:39 PM EDZak Canales, RN No [facility] 03-01-2023 Do you have difficul ty dressing or bathing No 03/01/2023 4:39 PM Zak Sharma, RN No [facility] 03-01-2023 Because of a physica l, mental, or emotional condition, do you have difficulty doing errands alone such as visiting a physician's office or shopping No 03/01/2023 4:39 PM Zak Sharma, RN No [facility] 02-26-2023 Functional status Patient Activi ty Ambulates;Up ad mallika [facility] Work Phone: 02-26-2023 Functional status Ambulates;Up ad mallika [facility] Work Phone: 02-26-2023 Functional status Activity Abili ty Independent [facility] Work Phone: 02-25-2023 Functional status Assistive Devices None [facility] Work Phone: 02-25-2023 Functional status Tolerates Activity Well [facility] Work Phone: Mental Status Date Assessment Result Facility 03-01-2023 Because of a physica l, mental, or emotional condition, do you have serious difficulty concentrating, remembering, or making decisions No 03/01/2023 4:39 PM EDT Zak Mccray, KARIN No [facility] 02-26-2023 Cognitive function Voice/Name [facility] Work Phone: 02-22-2023 Cognitive function Level Of Cons ciousness Awake;Alert;Appropriate;Fol lows Commands [facility] Work Phone: 02-22-2023 Cognitive function Voice/Name [facility] Work Phone: Clinical Notes 09-10-2012 to 01-06-2025 Note Date & Type Note Facility 01-06-2025 Evaluation note Diagnosis Onset Date Resolution Essential hypertension acute January 06, 2025 3:40pm Hyperlipidemia acute December 3:40pm Ischemic cardiomyopathy acute January 06, 2025 3:40pm Nonsustained ventricular tachycardia acute January 06, 2025 3:40pm Stented coronary artery February 25, 2023 chronic January 06, 2025 3:40pm [facility] Work Phone: [phone] Telephone encounter Note* Telephone Encounter - Dinah Singh RN - 12/21/2024 2:30 PM EDT Patient called in requested 11/19/24 bone density result. Advised mychart message was sent by provider, but she does not use her mychart. Read her DM's message to her. All questions answered. Dinah Singh RN [facility]03-10-2025 Miscellaneous Notes* Telephone Encounter - Dinah Singh RN - 12/21/2024 2:30 PM EDT Patient called in requested 11/19/24 bone density result. Advised mychart message was sent by provider, but she does not use her mychart. Read her DM's message to her. All questions answered. Dinah Singh RN [facility] History of Present illness Narrative* Cristhian Muse RT(R) - 11/19/2024 3:25 PM EST Radiology Service Progress Note PATIENT NAME: Vishal George DATE OF SERVICE: November 19, 2024 TIME: 3:27 PM PATIENT IDENTITY VERIFICATION COMPLETED USING TWO (2) IDENTIFIERS: Name and Date of confirmedby patient verbally. FALL SCREENING: Has the patient had 2 falls in the last year or 1 fall with injury or currently using an Ambulatory Assistive Device (Walker, Cane, Wheelchair, Crutches, etc.)? No PATIENT GENDER DATA: Assigned female at . status: : No status:NO. PATIENT RELEVANT IMPLANT DATA REVIEWED: Not Applicable PATIENT PRESENTS WITH AN IMPLANTABLE OR ATTACHED OVEN OPERATOR: No RADIOLOGY DEPARTMENT: Bone Density PERIPHERAL IV DATA: Not applicable SIGNED BY: RT Mario(R) November 19, 2024 3:27 PM documented in this encounterZ[facility]25 NoteHNO ID: [id number] Author: CRISTHIAN MUSE RT(Meenu) Service: ? Author Type: Technologist Type: Progress Notes Filed: 11/19/2024 15:35 Note Text: Radiology Service Progress Note PATIENT NAME: Vishal George DATE OF SERVICE: November 19, 2024 TIME: 3:27 PM PATIENT IDENTITY VERIFICATION COMPLETED USING TWO (2) IDENTIFIERS: Name and Date of confirmed by patient verbally. FALL SCREENING: Has the patient had 2 falls in the last year or 1 fall with injury or currently using an Ambulatory Assistive Device (Walker, Cane, Wheelchair, Crutches, etc.)? No PATIENT GENDER DATA: Assigned female at . status: : No status: NO. PATIENT RELEVANT IMPLANT DATA REVIEWED: Not Applicable PATIENT PRESENTS WITH AN IMPLANTABLE OR ATTACHED OVEN OPERATOR: No RADIOLOGY DEPARTMENT: Bone Density PERIPHERAL IV DATA: Not applicable SIGNED BY: RT Mario(R) November 19, 2024 3:27 [facility]12-09-2024 Instructions* Patient Instructions* Aracelis Mccormick MD - 09/21/2024 3:53 PM EST BONE MINERAL DENSITY PATIENT INSTRUCTIONS Bone mineral density testing measures the amount of calcium in certain parts of your bones. This information determines how strong your bones are. The test is used to detect osteoporosis, a disease in which the bone's mineral content and density are low, increasing a person's risk of fractures. Thelumbar spine (lower back) and the hip are the skeletal sites usually examined. For the test, remember that: 1. You cannot take this test if you are . 2. Eat a normal diet on the day of the test. 3. Take your medications as you normally would. 4. DO NOT take calcium supplements (such as Tums) for 24 hours before the test. 5. On the day of the test, leave valuables (jewelry or credit cards) at home. 6. The test should be performed prior to oral, rectal or IV contrast studies, or at least 7 days after any of these studies. For the test, you may be asked to wear a hospital gown. You will lie on your back, on a padded table, in a comfortable position. Generally, you can resume your usual activities immediately. documented in this encounterZ[facility]12-[facility]-2024 NoteHNO ID: [id number] Author: ARACELIS MCCORMICK MD Service: ? Author Type: Physician Type: Progress Notes Filed: 09/21/2024 15:54 Note Text: Cutter Apprentice Hand offered: Patient declines. Trevino is a 64 year old who presents for an annual gynecologic exam without complaints. Postmenopausal: Yes HRT use: No. Last Pap: 05/23/2021 normal HPV: 05/22/2021 negative History of abnormal pap: yes but f/u neg - no surgery Last mammogram: 2023 normal History of abnormal mammogram: No Sexually active: No History of STDS: None Patient concerns for STD exposure: No. 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 History Comments: Sexual Activity: Yes; Male Contraception: [...] FOR CORE BRST BX RT 10/13/2012 TONSILLECTOMY AND ADENOIDECTOMY TONSILLECTOMY HX FAMILY HISTORY Problem Relation Age of Onset Breast Cancer Mother Hypertension Mother Heart Mother Coronary Artery Disease Mother Hypertension Father Cancer Father Lymphoma Hypertension Brother SOCIAL HISTORY Social History Tobacco Use Smoking status: Former Current packs/day: 0.00 Average packs/day: 0.5 packs/day for 20.0 years (10.0 ttl pk-yrs) Types: Cigarettes Start date: 02/22/2003 Quit date: 02/22/2023 Years since quittin.5 Smokeless tobacco: Never Vaping Use Vaping status: Never Used Substance Use Topics Alcohol use: Yes Alcohol/week: 42.0 standard drinks of alcohol Types: 42 Cans of Beer (12oz) per week Drug use: Yes Comment: marijuana use-last evening REVIEW OF SYSTEMS Abdomen: No abdominal pain, nausea, vomiting, diarrhea, or constipation. No bloating, early satiety, indigestion, or increased flatulence. Bladder: No dysuria, gross hematuria, urinary frequency, urinary urgency, or incontinence Breast: No breast lumps, nipple d/c, overlying skin changes, redness or skin retraction Allergies and current medication updated:Yes SENSITIVE EXAM: The sensitive examination was discussed with the Patient or Patient's Authorized Salt Machine Operator. As applicable, any other physician, advance practice provider, medical student, or other health professional student that will be observing or involved in the sensitive examination for educational or training purposes was discussed with the Patient or Authorized Salt Machine Operator. The Patient or Authorized Salt Machine Operator has agreed to proceed with the sensitive examination. (Sensitive examination includes inspection and/or palpation of the breasts, pelvis, prostate and anorectal regions). EXAM: BP 140/78 Ht 5' 1.5 (1.56m) Wt 173 lb (78.5kg) LMP 03/05/2012 BMI 32.16 kg/(m2). GENERAL: pleasant, female in no apparent distress [...] external genitalia normal, normal Bartholin's glands, urethra, [place]'s glands, no vulvar lesions, no cervical lesions, good vaginal support, physiologic discharge present, normal appearing perineal body and perianal region BIMANUAL: uterus normal size, shape and consistency, no adnexal masses, and non-tender RECTOVAGINAL: deferred. NEURO: alert and oriented x3,exam grossly non-focal EXTREMITIES: normal ASSESSMENT/PLAN: 1) Health maintenance: Pap done with HPV. Mammogram ordered Mammogram up to date Nutrition, exercise and routine health maintenance exams reviewed. Colon cancer screening: (more content not included)...[facility] 09-21-2024 History of Present illness Narrative* Aracelis Mccormick MD - 09/21/2024 3:22 PM EST Cutter Apprentice Hand offered: Patient declines. Vishal is a 64 year old who presents for an annual gynecologic exam without complaints. Postmenopausal: Yes HRT use: No. Last Pap: 05/23/2021 normal HPV: 05/22/2021 negative History of abnormal pap: yes but f/u neg - no surgery Last mammogram: 2023 normal History of abnormal mammogram: No Sexually active: No History of STDS: None Patient concerns for STD exposure: No. 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 History Comments: Sexual Activity: Yes; Male Contraception: [...] TONSILLECTOMY & ADENOIDECTOMY <AGE 14 TONSILLECTOMY HX FAMILY HISTORY Problem Relation Age of Onset Breast Cancer Mother Hypertension Mother Heart Mother Coronary Artery Disease Mother Hypertension Father Cancer Father Lymphoma Hypertension Brother SOCIAL HISTORY Social History Tobacco Use Smoking status: Former Current packs/day: 0.00 Average packs/day: 0.5 packs/day for 20.0 years (10.0 ttl pk-yrs) Types: Cigarettes Start date: 02/22/2003 Quit date: 02/22/2023 Years since quittin.5 Smokeless tobacco: Never Vaping Use Vaping status: Never Used Substance Use Topics Alcohol use: Yes Alcohol/week: 42.0 standard drinks of alcohol Types: 42 Cans of Beer (12oz) per week Drug use: Yes Comment: marijuana use-last evening REVIEW OF SYSTEMS Abdomen: No abdominal pain, nausea, vomiting, diarrhea, or constipation. No bloating, early satiety, indigestion, or increased flatulence. Bladder: No dysuria, gross hematuria, urinary frequency, urinary urgency, or incontinence Breast: No breast lumps, nipple d/c, overlying skin changes, redness or skin retraction Allergies and current medication updated:Yes SENSITIVE EXAM: The sensitive examination was discussed with the Patient or Patient's Authorized Salt Machine Operator. As applicable, any other physician, advance practice provider, medical student, or other health professional student that will be observing or involved in the sensitive examination for educational or training purposes was discussed with the Patient or Authorized Salt Machine Operator. The Patient or Authorized Salt Machine Operator has agreed to proceed with the sensitive examination. (Sensitive examination includes inspection and/or palpation of the breasts, pelvis, prostate and anorectal regions). EXAM: BP 140/78 Ht 5' 1.5 (1.56m) Wt 173 lb (78.5kg) LMP 03/05/2012 BMI 32.16 kg/(m^2). GENERAL: pleasant, female in no apparent [...] external genitalia normal, normal Bartholin's glands, urethra, [place]'s glands, no vulvar lesions, no cervical lesions, good vaginal support, physiologic discharge present, normal appearing perineal body and perianal region BIMANUAL: uterus normal size, shape and consistency, no adnexal masses, and non-tender RECTOVAGINAL: deferred. NEURO: alert and oriented x3,exam grossly non-focal EXTREMITIES: normal ASSESSMENT/PLAN: 1) Health maintenance: Pap done with HPV. Mammogram ordered Mammogram up to date Nutrition, exercise and routine health maintenance exams reviewed. Colon cancer screening: up to date with screening BMD: ordered 2) Follow up one year or sooner as needed Aracelis Yoder MD documented in [facility] encounterZ[facility]12-[facility] History of Present illness Narrative* Tony Hart Mammo Tech - 09/16/2024 7:50 AM EST Radiology Service Progress Note PATIENT NAME: Vishal George DATE OF SERVICE: September 16, 2024 TIME: 8:07 AM PATIENT IDENTITY VERIFICATION COMPLETED USING TWO (2) IDENTIFIERS: Name and Date of confirmedby patient verbally. FALL SCREENING: Has the patient had 2 falls in the last year or 1 fall with injury or currently using an Ambulatory Assistive Device (Walker, Cane, Wheelchair, Crutches, etc.)? No PATIENT GENDER DATA: Female. status: : No status: NO. PATIENT RELEVANT IMPLANT DATA REVIEWED: Not Applicable PATIENT PRESENTS WITH AN IMPLANTABLE OR ATTACHED OVEN OPERATOR: No RADIOLOGY DEPARTMENT: Mammography PERIPHERAL IV DATA: Not applicable SIGNED BY: Cesar Vargas September 16, 2024 8:07 AM documented in this encounterZanesville City Hospital12-04-2024 NoteHNO ID: [id number] Author: TONY HART Mammo Tech Service: ? Author Type: Brokerage Office Manager Type: Progress Notes Filed: 09/16/2024 08:07 Note Text: Radiology Service Progress Note PATIENT NAME: Vishal George DATE OF SERVICE: September 16, 2024 TIME: 8:07 AM PATIENT IDENTITY VERIFICATION COMPLETED USING TWO (2) IDENTIFIERS: Name and Date of confirmed by patient verbally. FALL SCREENING: Has the patient had 2 falls in the last year or 1 fall with injury or currently using an Ambulatory Assistive Device (Walker, Cane, Wheelchair, Crutches, etc.)? No PATIENT GENDER DATA: Female. status: : No status: NO. PATIENT RELEVANT IMPLANT DATA REVIEWED: Not Applicable PATIENT PRESENTS WITH AN IMPLANTABLE OR ATTACHED OVEN OPERATOR: No RADIOLOGY DEPARTMENT: Mammography PERIPHERAL IV DATA: Not applicable SIGNED BY: Tony Hart 5 examples September 16, 2024 8:07 [facility]03-15-2024 NoteHNO ID: [id number] Author: SHAY TERESA APRN.MELODY Service: ? Author Type: Nurse Practitioner Type: Progress Notes Filed: 12/27/2023 12:33 Note Text: [facility] OUTPATIENT VISIT DATE December 26, 2023 OUTPATIENT VISIT TYPE ESTABLISHED PRIMARY CARE PHYSICIAN: TRUDY Rendon, MELODY CHIEF COMPLAINT: Patient presents with: Breathing Problem CHF HISTORY OF PRESENT ILLNESS: Vishal George is a 63 year old female who presents today for a follow-up visit in the Heart Failure Clinic. The patient was last seen in office 07/12. The following changes were made at that time: none. The patient has had 1 hospital admissions [...] of ventricular tachycardia. She was transferred to [facility] for possible ICD placement. Electrophysiology was consulted. Recommended life vest and repeat echo in 3 months. Cardiology also started patient on carvedilol, jardiance and aldactone along with entresto. Today, the patient reports feeling well. Denies chest pain, shortness of breath, fever, chills, leg swelling, dizziness or lightheadedness. She made some personal choices last year regarding her home life and states she has never felt better. She has more energy. States she has not increased her entresto and is still taking 49-51 mg BID. Blood pressures have been stable at over 110 systolic. Does not monitor at home; this was taken at the doctor's office. Current smoker. Does not use inhaler daily. She follows with a delivery sales worker in [place]. Does not weigh every day. Monitors her sodium intake. Does not monitor fluids as well. Weights have been stable at 162-164 lbs. States she had an echocardiogram in September in [place] and reports an ejection fraction of 45%. She was told by her delivery sales worker if it was less than 35% she would qualify for a pacemaker. She was seen by Cardiology last week. No changes made to medications at that time. IMPRESSION: NYHA Functional Class: II Stage: C heart failure Vishal George is a 62 year-old female who presents to the Heart Failure Clinic for follow up. She appears euvolemic on examination. Will trial an increase in entresto to 97-103 mg BID. She is to use the current dose she has and double up in the morning and in the evening. Blood pressure parameters given to patient. Discussed following up with HF Clinic and with cardiology in [place]. She is to call the office next week and review blood pressures and symptoms. She is also to decrease back to 49-51 mg entresto BID if she is not able to tolerate higher dose. Red flags reviewed with patient. Reviewed all medication Reviewed plan of care with patient. All questions answered at this time. PLAN AND RECOMMENDATIONS: 1. Chronic systolic heart failure (HCC) - ICD9: 428.22, ICD10: I50.22 (primary diagnosis) - daily weights, call office if weight increases 3-4 lbs in a 1-4 day period -2 gm low sodium diet -activity as tolerated, rest breaks as needed -GDMT: entresto, spironolactone, lasix PRN, coreg, jardiance -titrate entresto to 97-103 mg BID -lasix to as needed -follow up in HF clinic 07/02 or sooner if needed 2. Ischemic cardiomyopathy - ICD9: 414.8, ICD10: I25.5 -EF 20% -repeat echo 3 months once GDMT is optimized -repeat echo in [place] shows 45% from September 2023 Per the patient- no outside records present during visit 3. Hyperlipidemia, unspecified hyperlipidemia type - ICD9: 272.4, ICD10: E78.5 -continue statin therapy 4. Primary hypertension - ICD9: 401.9, ICD10: I10 -BP suboptimal during visit 139/76 mmHg -encourage DASH/low sodium diet -encourage exercise with rest breaks as needed -goal BP <130/80 mmHg -continue home BP monitoring 5. Coronary artery disease involving [place] coronary artery of [place] heart without angina pectoris - ICD9: 414.01, ICD10: I25.10 -stable -s/p [facility] on 02/25 -on aspirin and BB [...] 10/14/2005 COLONOSCOPY FLX DX W/COLLJ SPEC WHEN (more content not included)...[id number] History of Present illness Narrative* Shay Teresa APRN.MELODY - 12/27/2023 12:00 PM EDT Images from the original note were not included. [facility] OUTPATIENT VISIT DATE December 26, 2023 OUTPATIENT VISIT TYPE ESTABLISHED PRIMARY CARE PHYSICIAN: TRUDY Rendon, GRAB JACK WORKER CHIEF COMPLAINT: Patient presents with: Breathing Problem CHF HISTORY OF PRESENT ILLNESS: Vishal George is a 63 year old female who presents today for a follow-up visit in the Heart Failure Clinic. The patient was last seen in office 07/12. The following changes were made at that time: none. The patient has had 1 hospital admissions in the past 12 months. The last admission was from 02/26 to 03/01 for management of nonsustained ventricular tachycardia. Cardiology was consulted. Echocardiogram was performed showing reduced ejection fraction of 15-20%. Cardiac cath done on 02/25 showed 80% s tenosis to RCA. The patient was supposed to be sent home on lisinopril with transition to entresto however, at time of discharge patient experienced 34 beat run of ventricular tachycardia. She was transferred to [facility] for possible ICD placement. Electrophysiology was consulted. Recommended life vest and repeat echo in 3 months. Cardiology also started patient on carvedilol, jardiance and aldactone along with entresto. Today, the patient reports feeling well. Denies chest pain, shortness of breath, fever, chills, legswelling, dizziness or lightheadedness. She made some personal choices last year regarding her homelife and states she has never felt better. She has more energy. States she has not increased her entresto and is still taking 49-51 mg BID. Blood pressures have been stable at over 110 systolic. Does not monitor at home; this was taken at the doctor's office. Current smoker. Does not use inhaler daily. She follows with a delivery sales worker in [place]. Does not weigh every day. Monitors her sodium intake. Does not monitor fluids as well. Weights have been stable at 162-164 lbs. States she had an echocardiogram in September in [place] and reports an ejection fraction of 45%. She was told by her delivery sales worker if it was less than 35% she would qualify for a pacemaker. She was seen by Cardiology last week. No changes made to medications at that time. IMPRESSION: NYHA Functional Class: II Stage: C heart failure Vishal George is a 62 year-old female who presents to the Heart Failure Clinic for follow up. She appears euvolemic on examination. Will trial an increase in entresto to 97-103 mg BID. She is to use the current dose she has and double up in the morning and in the evening. Blood pressure parameters given to patient. Discussed following up with HF Clinic and with cardiology in [place]. She is to call the office next week and review blood pressures and symptoms. She is also to decrease back to 49-51 mg entresto BID if she is not able to tolerate higher dose. Red flags reviewed with patient. Reviewed all medication Reviewed plan of care with patient. All questions answered at this time. PLAN AND RECOMMENDATIONS: 1. Chronic systolic heart failure (HCC) - ICD9: 428.22, ICD10: I50.22 (primary diagnosis) - daily weights, call office if weight increases 3-4 lbs in a 1-4 day period -2 gm low sodium diet -activity as tolerated, rest breaks as needed -GDMT: entresto, spironolactone, lasix PRN, coreg, jardiance -titrate entresto to 97-103 mg BID -lasix to as needed -follow up in HF clinic 07/02 or sooner if needed 2. Ischemic cardiomyopathy - ICD9: 414.8, ICD10: I25.5 -EF 20% -repeat echo 3 months once GDMT is optimized -repeat echo in [place] shows 45% from September 2023 Per the patient- no outside records present during visit 3. Hyperlipidemia, unspecified hyperlipidemia type - ICD9: 272.4, ICD10: E78.5 -continue statin therapy 4. Primary hypertension - ICD9: 401.9, ICD10: I10 -BP suboptimal during visit 139/76 mmHg -encourage DASH/low sodium diet -encourage exercise with rest breaks as needed -goal BP <130/80 mmHg -continue home BP monitoring 5. Coronary artery disease involving [place] coronary artery of [place] heart without angina pectoris- ICD9: 414.01, ICD10: I25.10 -stable -s/p [facility] on 02/25 -on aspirin and BB [...] Types: Cigarettes Quit date: 02/22/2023 Years since quittin.8 Smokeless tobacco: Never Vaping Use Vaping Use: [...] Current Outpatient Medications Medication Sig Dispense Refill STIOLTO RESPIMAT 2.5-2.5 mcg/actuation Inhale 2.5 mcg as instructed once daily. celecoxib (CELEBREX) 200 mg capsule Take 200 mg by mouth once daily. atorvastatin (LIPITOR) 80 mg tablet Take 0.5 tablets by mouth daily at bedtime. 15 tablet 0 ENTRESTO 49-51 mg tablet Take 49-51 tablets by mouth twice daily. carvedilol (COREG) 12.5 mg tablet Take 1 tablet by mouth twice daily with meals. 120 tablet 3 aspirin 81 mg chewable tablet Chew 1 tablet by mouth once daily. 30 tablet 0 empagliflozin (JARDIANCE) 10 mg tablet Take 1 tablet by mouth once daily. 30 tablet 0 buPROPion SR (WELLBUTRIN SR) [...] by mouth once daily. For 30 days busPIRone (BUSPAR) 10 mg tablet Take 10 mg by mouth two times a day. cholecalciferol (VITAMIN D3) 5,000 unit tab Take 1,000 Units by mouth once daily. cyanocobalamin (VITAMIN B-12) 1,000 mcg tab Take 1,000 mcg by mouth once daily. MULTIVIT-MINERALS/FERROUS FUM (MULTI VITAMIN ORAL) Take by mouth once daily. pantoprazole DR (PROTONIX) 40 mg tablet Take 40 mg by mouth once daily. furosemide (LASIX) 20 mg tablet Take 1 tablet by mouth as needed. No current facility-administered medications for this visit. REVIEW OF SYSTEMS: GENERAL: Negative for: Weight loss or gain, Fever or Chills, Weakness and Sleep difficulties. HEENT: Negative for: Headache, Impaired Vision, Glasses, Hearing Impairment, Ringing in Ears, Nosebleeds, Poor Dental Care, Bleeding Gums and Dentures. NECK: Negative for: Swelling, Pain, Stiffness RESPIRATORY: Positive for: Shortness of breath GASTROINTESTINAL: Negative for: Trouble swallowing, Heartburn, Change [...] or Cold Intolerance, Excessive Sweating, Frequent Urination, FrequentThirst PHYSICAL EXAMINATION: BP 132/67 Pulse 71 Wt 73.5 kg (162 lb) LMP 03/05/2012 (Approximate) SpO2 96% BMI 27.81 kg/m General: Normal exam, no distress Skin: No clubbing, no cyanosis. Eyes: Extra ocular movements intact Neck: Neck veins are not distended Lungs: BL inspiratory wheezing- has not been using daily inhaler Heart: Rhythm: regular rate and rhythm, Rate: [...] mL/min/1.73m 99 (H): Data is abnormally high I have personally reviewed the Laboratory Testing. No echo ordered in the past. COUNSELING: We discussed the following non-pharmacological measures during this visit: Smoking and alcohol abstinence/cessation, if applicable Dietary and medication compliance Monitoring daily weights and blood pressures Exercise regimen When to call our office Heart Failure Education Booklet: Previously given. Discussed red flags and when to call MD/TERMITE CONTROL SERVICER or [facility] ED. Medications reconciled at end of visit: yes I spent 30 minutes in this visit, with more than 50% of the time devoted to patient counseling. SIGNATURE: Shay Teresa APRN.CNP PATIENT NAME: Vishal George DATE: December 27, 2023 TIME: 1200 documented in this encounterZanesville City Hospital03-15-2024 Instructions* Patient Instructions* Shay Teresa APRN.CNP - 12/27/2023 11:52 AM EDT START taking 2 tablets of entresto in the morning and at night. Monitor your blood pressure 2-3 hours after each dose. IF blood pressure is less than 110/60 mmHg OR you become symptomatic with dizziness or lightheadedness, go back to 1 tablet of entresto twice a day. STOP taking lasix everyday. Youmay take this for 3-4 lb weight gain in 1-2 days. *call the office in 1 week to review blood pressures and symptoms OR sooner if you cannot tolerate. 2. Weigh yourself daily. Call me if your weight increases by 3-4 pounds in a 1-4 day period of time. 3. Continue low salt (2000 mg per day) diet. 4. Be as active as you are able. If you get tired, just stop and rest for a while. 5. Come back and see me on July 02 at 1200. If you have any question or concern, you can call me at [phone]. documented in this encounterZanesville City Hospital09-29-2023 NoteHNO ID: [id number] Author: Shay Teresa APRN.CNP Service: ? Author Type: Nurse Practitioner Type: Progress Notes Filed: 07/12/2023 12:38 PM Note Text: [facility] [place] [facility] Heart Failure Clinic OUTPATIENT VISIT DATE July 12, 2023 OUTPATIENT VISIT TYPE ESTABLISHED PRIMARY CARE PHYSICIAN: TRUDY Rendon CNP CHIEF COMPLAINT: Patient presents with: Breathing Problem HISTORY OF PRESENT ILLNESS: Vishal George is a 63 year old female who [...] of ventricular tachycardia. She was transferred to [facility] for possible ICD placement. Electrophysiology was consulted. Recommended life vest and repeat echo in 3 months. Cardiology also started patient on carvedilol, jardiance and aldactone along with entresto. Today, the patient reports feeling very well. She follows with a delivery sales worker in [place]. Every once in awhile she feels a [...] Class: II Stage: C heart failure Vishal George is a 62 year-old female who presents [...] once GDMT is optimized -repeat echo in [place] shows 15% Per the patient- no outside records present during visit 3. Hyperlipidemia, unspecified hyperlipidemia type - ICD9: 272.4, ICD10: E78.5 -continue statin therapy 4. Primary hypertension - ICD9: 401.9, ICD10: I10 -BP suboptimal during visit 139/76 mmHg -encourage DASH/low sodium diet -encourage exercise with rest breaks as needed -goal BP <130/80 mmHg -continue home BP monitoring 5. Coronary artery disease involving [place] coronary artery of [place] heart without angina pectoris - ICD9: 414.01, ICD10: I25.10 -stable -s/p [facility] on 02/25 -on aspirin and BB [...] SURGERY, COMPLEX 09/29/2012 L (more content not included)...[facility] [id number] Instructions* Patient Instructions* Shay Teresa APRN.CNP - 07/12/2023 12:27 PM EDT Continue current medications as prescribed. Please increase dose of entresto to 97-103 mg twice a day. Finish your old prescription with 49-51 mg and take two tablets in the morning and two tablets in the evening. Monitor blood pressure 2- 3 hours after morning dose and record. Call office 1-2 weeksto report symptoms. If you become dizzy, lightheaded go back to 49-51 mg twice a day dosing. If bloo d pressures drop below 100/50 mmHg, please go [...] or concern, you can call me at [phone]. documented in this encounterZanesville City Hospital09-29-2023 History of Present illness Narrative* Shay Teresa APRN.GRAB JACK WORKER - 07/12/2023 12:00 PM EDT Images from the original note were not included. [facility] Heart Failure Clinic OUTPATIENT VISIT DATE July 12, 2023 OUTPATIENT VISIT TYPE ESTABLISHED PRIMARY CARE PHYSICIAN: Ricki Griffin, TRUDY, MELODY CHIEF COMPLAINT: Patient presents with: Breathing Problem HISTORY OF PRESENT ILLNESS: Vishal George is a 63 year old female who [...] Cardiac cath done on 02/25 showed 80% s tenosis to RCA. The patient was supposed to be sent home on lisinopril with transition to entresto however, at time of discharge patient experienced 34 beat run of ventricular tachycardia. She was transferred to [facility] for possible ICD placement. Electrophysiology was consulted. Recommended life vest and repeat echo in 3 months. Cardiology also started patient on carvedilol, jardiance and aldactone along with entresto. Today, the patient reports feeling very well. She follows with a delivery sales worker in [place]. Every once in awhile she feels a [...] Class: II Stage: C heart failure Vishal George is a 62 year-old female who presents [...] She is to call the office in 1-2weeks to report symptoms. States she is scheduled [...] once GDMT is optimized -repeat echo in [place] shows 15% Per the patient- no outside records present during visit 3. Hyperlipidemia, unspecified hyperlipidemia type - ICD9: 272.4, ICD10: E78.5 -continue statin therapy 4. Primary hypertension - ICD9: 401.9, ICD10: I10 -BP suboptimal during visit 139/76 mmHg -encourage DASH/low sodium diet -encourage exercise with rest breaks as needed -goal BP <130/80 mmHg -continue home BP monitoring 5. Coronary artery disease involving [place] coronary artery of [place] heart without angina pectoris- ICD9: 414.01, ICD10: I25.10 -stable -s/p [facility] on 02/25 -on aspirin and BB [...] or Cold Intolerance, Excessive Sweating, Frequent Urination, FrequentThirst PHYSICAL EXAMINATION: BP 139/76 Pulse 69 Wt [...] is abnormally high No echo performed at [facility]. Patient states echo was done in [place] in May. I have personally reviewed the Laboratory Testing and Echocardiogram. COUNSELING: We discussed the following non-pharmacological measures during this visit: Smoking and alcohol abstinence/cessation, if applicable Dietary and medication compliance Monitoring daily weights and blood pressures Exercise regimen When to call our office Heart Failure Education Booklet: Previously given. Discussed red flags and when to call MD/TERMITE CONTROL SERVICER or [facility] ED. Medications reconciled at end of visit: yes I spent 30 minutes in this visit, with more than 50% of the time devoted to patient counseling. SIGNATURE: Shay Teresa APRN.CNP PATIENT NAME: Vishal George DATE: July 12, 2023 TIME: 1201 documented in this encounterZanesville City Hospital08-25-2023 NoteHNO ID: [id number] Author: Shay Teresa APRN.CNP Service: ? Author Type: Nurse Practitioner Type: Progress Notes Filed: 06/07/2023 12:42 PM Note Text: [facility] Heart Failure Clinic OUTPATIENT VISIT DATE June 07, 2023 OUTPATIENT VISIT TYPE ESTABLISHED PRIMARY CARE PHYSICIAN: TRUDY Rendon CNP CHIEF COMPLAINT: Patient presents with: Breathing Problem Leg Edema HISTORY OF PRESENT ILLNESS: Vishal George is a 63 year old female who [...] dilated cardiomyopathy, chronic obstructive pulmonary disease, s/p [facility] with stent placement on 02/25 revealing [...] of ventricular tachycardia. She was transferred to [facility] for possible ICD placement. Electrophysiology was consulted. [...] able. She states she has a primary delivery sales worker at [place] in which she had an echocardiogram that she says ejection fraction was still at 15%. No results are in [facility] as the are from outside hospital. She [...] Class: II Stage: C heart failure Vishal George is a 62 year-old female who presents [...] once GDMT is optimized -repeat echo in [place] shows 15% Per the patient- no outside records present during visit 3. Hyperlipidemia, unspecified hyperlipidemia type - ICD9: 272.4, ICD10: E78.5 -continue statin therapy 4. Primary hypertension - ICD9: 401.9, ICD10: I10 -BP suboptimal during visit mmHg -encourage DASH/low sodium diet -encourage exercise with rest breaks as needed -goal BP <130/80 mmHg -continue home BP monitoring 5. Coronary artery disease involving [place] coronary artery of [place] heart without angina pectoris - ICD9: 414.01, [...] Procedure Laterality Date CATARACT (more content not included)...[facility] [id number] Miscellaneous Notes* Telephone Encounter - Melissa Koroma APRN.CNP - 03/25/2023 10:16 AM EDT I spoke with [facility] regarding the denial of the Lifevest, she does not meet [facility]'s criteria for the Lifevest, as an ICD would need to be indicated for the Lifevest to be covered, currently ICD not indicated until after 90 days of GDMT. Unfortunately, the Lifevest has been declined. Melissa Koroma APRN.CNP documented in this encounterZanesville City Hospital05-25-2023 NoteHNO ID: [id number] Author: Shay Teresa APRN.CNP Service: ? Author Type: Nurse Practitioner Type: Progress Notes Filed: 03/07/2023 11:18 AM Note Text: [facility] Heart Failure Clinic OUTPATIENT VISIT DATE March 07, 2023 OUTPATIENT VISIT TYPE NEW PRIMARY CARE PHYSICIAN: TRUDY Rendon CNP REFERRING PHYSICIAN: No referring provider defined for this encounter. CHIEF COMPLAINT: Patient presents with: Breathing Problem Heart Failure HISTORY OF PRESENT ILLNESS: Vishal George is a 62 year old female who [...] of ventricular tachycardia. She was transferred to [facility] for possible ICD placement. Electrophysiology was consulted. [...] Class: II Stage: C heart failure Vishal George is a 62 year-old female who presents [...] BP monitoring 5. Coronary artery disease involving [place] coronary artery of [place] heart without angina pectoris - ICD9: 414.01, ICD10: I25.10 -stable -s/p [facility] on 02/25 -on aspirin and BB Follow up appointment with Cardiology in Dr. Moe [place] to be scheduled. PAST MEDICAL HISTORY Diagnosis Date Cataract of left eye COPD (chronic obstructive pulmonary disease) (HCC) Dilated cardiomyopa (more content not included)...[facility] [id number] Note HNO ID: [id number] Author: Carlo Gallardo Service: ? Author Type: ? Type: Plan of Care Filed: 03/01/2023 4:14 PM Note Text: PHARMACY BEDSIDE DELIVERY SERVICE Patient Name: Vishal George The marked outpatient medications were Filled at: [place] and delivered to the patient's bedside to [...] 320-12.5 mg per tablet Carlo Gallardo PAGER: Benjaheather Blancle [facility]) [phone] March 01, 2023 4:12 [facility]05-19-2023 NoteHNO ID: [id number] Author: Oly Guzmán DO Service: Hospital Medicine Author Type: Physician [...] assessment, plan, and treatment Other, please specify [facility] 02-28-2023 NoteHNO ID: [id number] Author: Oly Guzmán DO Service: Hospital Medicine Author Type: Physician Type: Progress Notes Filed: 02/28/2023 4:41 PM Note Text: DEPARTMENT OF HOSPITAL MEDICINE PROGRESS NOTE SERVICE DATE: 02/28/2023 SERVICE TIME: 4:29 PM Hospital Medicine/Primary Attending: Oly Guzmán DO NIGHT AND WEEKEND COVERAGE: [place] COVERAGE: After 7pm, please call cross cover pager #[phone] Subjective She denies current chest pain, lightheadedness, syncope, shortness of breath, nausea or vomiting INTERVAL HPI: This is a 62-year-old female with known congestive heart failure systolic and diastolic, CAD status post stent who presented to [facility] a few days ago for severe [...] with a plan to transition her to [facility]. The patient was a planned to be discharged from [place], but then she had a 34 run of V. tach/wide-complex tachycardia so decision was to transfer her to [facility] for ICD evaluation as that was being [...] telemetry Active Problems: Coronary artery disease involving [place] coronary artery POA: Yes Assessment AND Plan: [...] tab(s) (PLAVIX) 75 mg ORAL DAILY Given, 02/29 82402/26/23 1637 -- 02/26/23 1830 aspirin 81 mg chewable tab(s) 81 mg ORAL DAILY Given, 02/29 82402/26/23 1827 -- 02/26/23 1645 activity - mobilize patient (ok,tn) VTE Prophylaxis:On hold pending need for EP procedure Disposition: To be determined Plan of care discussed with: Provider, RN, Patient SIGNATURE: Oly Guzmán DO PATIENT NAME: Vishal George DATE: February 28, 2023 TIME: 4:29 PM etx [id number]05-[facility]-2023 NoteHNO ID: [id number] Author: Oly Guzmán DO Service: Hospital Medicine Author Type: Physician Type: Progress Notes Filed: 02/27/2023 2:21 PM Note Text: DEPARTMENT OF HOSPITAL MEDICINE PROGRESS NOTE SERVICE DATE: 02/27/2023 SERVICE TIME: 2:09 PM Hospital Medicine/Primary Attending: Oly Guzmán DO NIGHT AND WEEKEND COVERAGE: [place] COVERAGE: After 7pm, please call cross cover pager #[phone] Subjective She denies current chest pain, lightheadedness, syncope, shortness of breath, nausea or vomiting INTERVAL HPI: This is a 62-year-old female with known congestive heart failure systolic and diastolic, CAD status post stent who presented to [facility] a few days ago for severe [...] with a plan to transition her to [facility]. The patient was a planned to be discharged from [place], but then she had a 34 run of V. tach/wide-complex tachycardia so decision was to transfer her to [facility] for ICD evaluation as that was being [...] telemetry Active Problems: Coronary artery disease involving [place] coronary artery POA: Yes Assessment AND Plan: [...] -- 02/26/23 1645 activity - mobilize patient (ok,tn) VTE Prophylaxis:On hold pending need for EP procedure Disposition: To be determined Plan of care discussed with: Provider, RN, Patient SIGNATURE: Oly Guzmán DO PATIENT NAME: Vishal George DATE: February 27, 2023 TIME: 2:09 PM etx [id number]12[facility] HCoV 229E RNA FERCHO+non-probe Ql (Nph)Not Detected *NA* (09/21/22 5:46 PM) Auto Viro/Sero [id number] History of Present illness Narrative* Jackie Schneider PA-C - 09/07/2022 10:36 AM EST In lieu of an in-person visit due to COVID-19 concerns, a virtualvisit was performed on the patient. Patient is aware that I am not fully able to assess symptoms and do a full physical examination including vital signs assessment at this time. Patient consents to this encounter. FOLLOW UP VISIT - ENDOSCOPY NAME: Vishal George CLINIC NO.: [id number] DATE OF SERVICE: 09/07/2022 : 1960 REFERRING PHYSICIAN: Ricki Griffin, PHOTOGRAPHIC SPOTTER, GRAB JACK WORKER Vishal is a patient I am following [...] with the patient, and the patient has hadthe opportunity to ask questions and have questions [...] which included preparing to see the patient, [id number] patient care, completing clinical documentation, obtaining and/or reviewing separately obtained history, counseling and educating the patient/family/caregiver, ordering medications, namrata ts, or procedures, independently interpreting results (not separately reported), and communicating results to the patient/family/caregiver. Jackie Schneider PA-C documented in this encounterZanesville City Hospital11-02-2022 Miscellaneous Notes* Letter - Mammography Coordinator - 08/15/2022 11:32 AM EDT August 15, 2022 PID: [id number] Vishal George [address] [place] [address] Dear Ms. George, We are pleased to inform you that [...] report will be kept on file at [facility] as part of your permanent medical record and are available for your continuing care. Thank you for allowing us to help in meeting your health care needs. Sincerely, Dr. Kate Interpreting Radiologist [facility] (Normal over 40) documented in this encounterZanesville City Hospital11-01-2022 History of Present illness Narrative* Aracelis Lozoya MD - 08/14/2022 8:42 AM EDT Vishal is a 62 year old who presents for an annual gynecologic exam without complaints. Working at [employer] 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 Aracelis Yoder MD Cutter Apprentice Hand offered: Patient declines. documented in this encounterZanesville City Hospital10-27-2022 Nurse Note* Leslie Hendrix RN - 08/09/2022 11:48 AM EDT Patient arrived laying on left side. States she is not in any pain at this time. Patient's abdomen appears to be nondistended and soft to palpation. Patient encouraged to belch or pass gas. documented in this encounterZanesville City Hospital10-27-2022 History and physical note * Sony Cedeño MD - 08/09/2022 11:30 AM EDT Images from the original note were not included. HISTORY AND PHYSICAL Vishal George 1960 REFERRING PHYSICIAN: TRUDY Rendon, MELODY CHIEF COMPLAINT: Follow Up ([facility] ER 07/12/22) HPI: The patient is a [...] me today at the request of Dr. Ricki Griffin, TRUDY, GRAB JACK WORKER for my opinion and advice regarding Epigastric [...] 75 mg by mouth twice daily. 75mg 11/2 tablet 2 times a day rosuvastatin (CRESTOR) [...] entered by the nurse and reviewed by me Nursing Notes: Alix Gil LPN 07/17/2022 2:57 PM Signed REVIEW OF SYSTEMS: General: The patient denies fatigue, notes weight loss, denies weight gain, denies feeling hot, anddenies feelings of cold. Eyes: The patient denies glaucoma, denies eye injury/surgery, does not wear glasses or contacts. Ear/Nose/Throat: The patient notes allergies, denies hayfever, denies ear infections, and denies bloody noses. Cardiovascular: The patient denies chest pain, notes heart disease, notes high blood pressure,notescardiac stent, denies prior heart attack, notes irregular [...] last Mammogram screening? 2020 Last Colonoscopy: 2015 Alix Gil LPN PHYSICAL EXAMINATION: General: The patient is 62 year old female, well nourished, well hydrated in no acute distress. Thepatient is oriented to time, place, and person. VITALS: Blood pressure 124/64, pulse 68, temperature 36 C (96.8 F), height 160 cm (5' 3), weight 78.5 kg (173 lb), last menstrual period 07/21/2012, SpO2 96 %. Body mass index is 30.65 kg/m . HEENT: Normal cephalic, ataumatic, pupils are equally round, sclera are anicteric, mucous membranesare moist, oropharynx is clear. Neck has no [...] type A letter was sent to Dr. Ricki Griffin, PHOTOGRAPHIC SPOTTER, GRAB JACK WORKER indicating the above finding for this patient. Return to Clinic: The patient is instructed to follow-up with me 1 week post operatively. COVID (Procedure Consent) Procedure Criteria Procedure Criteria: Yes Elective The surgeon/proceduralist and patient have discussed in detail therisk of exposure to and/or potential harm posed by the COVID-19 virus with having a surgery/procedure at this time versus the risk of delaying the surgery/procedure. It is not possible to know eitherthe risk of delaying the surgery or procedure [...] has been reviewed and the patient has beenexamined. The contents accurately reflect the patient's condition with the following additions or revisions since the H&P was completed. Examination indicates no changes. This H&P can be found in the attached. SIGNATURE: Sony Cedeño III, MD PATIENT NAME: Vishal George DATE: August 09, 2022 TIME: 10:43 AM documented in this encounterZanesville City Hospital10-20-2022 Miscellaneous Notes* Telephone Encounter - Halima Milton RN - 08/02/2022 9:49 AM EDT Pt. called in with questions surrounding the need for prior authorization for her upcoming EGD on 08/09. States she was told by her insurance company that prior auth was required. This nurse sees in her chart under referrals that no referral/ prior auth required. Pt. given finance customer service phone number and instructed to call for more help. Halima Milton RN documented in this encounterZanesville City Hospital10-04-2022 History of Present illness Narrative* Sony Cedeño MD - 07/17/2022 3:08 PM EDT HISTORY AND PHYSICAL Vishal Formaners 1960 REFERRING PHYSICIAN: Ricki Griffin, PHOTOGRAPHIC SPOTTER, GRAB JACK WORKER CHIEF COMPLAINT: Follow Up ([facility] ER 07/12/22) HPI: The patient is a [...] me today at the request of Dr. Ricki Griffin, PHOTOGRAPHIC SPOTTER, GRAB JACK WORKER for my opinion and advice regarding Epigastric [...] 75 mg by mouth twice daily. 75mg 11/2 tablet 2 times a day rosuvastatin (CRESTOR) [...] entered by the nurse and reviewed by ct Nursing Notes: Alix Gil LPN 07/17/2022 2:57 PM Signed REVIEW OF SYSTEMS: General: The patient denies fatigue, notes weight loss, denies weight gain, denies feeling hot, anddenies feelings of cold. Eyes: The patient denies glaucoma, denies eye injury/surgery, does not wear glasses or contacts. Ear/Nose/Throat: The patient notes allergies, denies hayfever, denies ear infections, and denies bloody noses. Cardiovascular: The patient denies chest pain, notes heart disease, notes high blood pressure,notescardiac stent, denies prior heart attack, notes irregular [...] last Mammogram screening? 2020 Last Colonoscopy: 2015 Alix Gil LPN PHYSICAL EXAMINATION: General: The patient is 62 year old female, well nourished, well hydrated in no acute distress. Thepatient is oriented to time, place, and person. VITALS: Blood pressure 124/64, pulse 68, temperature 36 C (96.8 F), height 160 cm (5' 3), weight 78.5 kg (173 lb), last menstrual period 07/21/2012, SpO2 96 %. Body mass index is 30.65 kg/m . HEENT: Normal cephalic, ataumatic, pupils are equally round, sclera are anicteric, mucous membranesare moist, oropharynx is clear. Neck has no [...] type A letter was sent to Dr. Ricki Griffin, PHOTOGRAPHIC SPOTTER, GRAB JACK WORKER indicating the above finding for this patient. Return to Clinic: The patient is instructed to follow-up with me 1 week post operatively. COVID (Procedure Consent) Procedure Criteria Procedure Criteria: Yes Elective The surgeon/proceduralist and patient have discussed in detail therisk of exposure to and/or potential harm posed by the COVID-19 virus with having a surgery/procedure at this time versus the risk of delaying the surgery/procedure. It is not possible to know eitherthe risk of delaying the surgery or procedure or chance of getting an infection with perfect accuracy, but a joint decision was made between the patient and the surgeon/proceduralist to proceed at this time with the scheduled surgery/procedure as indicated on the consent form. Sony Cedeño III, MD [facility]* Alix Gil, MEMBER SERVICE SPECIALIST - 07/17/2022 2:50 PM EDT REVIEW OF SYSTEMS: General: The patient denies fatigue, notes weight loss, denies weight gain, denies feeling hot, anddenies feelings of cold. Eyes: The patient denies glaucoma, denies eye injury/surgery, does not wear glasses or contacts. Ear/Nose/Throat: The patient notes allergies, denies hayfever, denies ear infections, and denies bloody noses. Cardiovascular: The patient denies chest pain, notes heart disease, notes high blood pressure,notescardiac stent, denies prior heart attack, notes irregular [...] last Mammogram screening? 2020 Last Colonoscopy: 2015 Alix Gil LPN [facility] History of Past illness Narrative* Problem Noted Date Resolved Date Unspecified essential hypertension 09/10/2012 08/29/2016 PMDD (premenstrual dysphoric disorder) 2 07/06/2015 Perimenopausal 09/10/2012 07/06/2015 documented as of this encounter (statuses as of 07/17/2022) [facility] of Past illness Narrative* Problem Noted Date Resolved Date Unspecified essential hypertension 09/10/2012 08/29/2016 PMDD (premenstrual dysphoric disorder) 2 07/06/2015 Perimenopausal 09/10/2012 07/06/2015 documented as of this encounter (statuses as of 08/14/2022) [facility] of [facility] illness Narrative* Problem Noted Date Resolved Date Unspecified essential hypertension 09/10/2012 08/29/2016 PMDD (premenstrual dysphoric disorder) 2 07/06/2015 Perimenopausal 09/10/2012 07/06/2015 documented as of this encounter (statuses as of 08/15/2022) [facility] History of Past illness Narrative* Problem Noted Date Resolved Date Unspecified essential hypertension 09/10/2012 08/29/2016 PMDD (premenstrual dysphoric disorder) 2 07/06/2015 Perimenopausal 09/10/2012 07/06/2015 documented as of this encounter (statuses as of 08/17/2022) [place] [address]-28-2012 History of Past illness Narrative* Problem Noted Date Resolved Date Unspecified essential hypertension 09/10/2012 08/29/2016 PMDD (premenstrual dysphoric disorder) 2 07/06/2015 Perimenopausal 09/10/2012 07/06/2015 documented as of this encounter (statuses as of 09/07/2022) [address]28-2012 History of Past illness Narrative* Problem Noted Date Resolved Date Unspecified essential hypertension 09/10/2012 08/29/2016 PMDD (premenstrual dysphoric disorder) 2 07/06/2015 Perimenopausal 09/10/2012 07/06/2015 documented as of this encounter (statuses as of 03/25/2023) [address]28-2012 History of Past illness Narrative* Problem Noted Date Diagnosed Date Resolved Date Unspecified essential hypertension 09/10/2012 08/29/2016 PMDD (premenstrual dysphoric disorder) 09/10/2012 07/06/2015 Perimenopausal 09/10/2012 07/06/2015 documented as of this encounter (statuses as of 07/12/2023) [address]28-2012 History of Past illness Narrative* Problem Noted Date Diagnosed Date Resolved Date Unspecified essential hypertension 09/10/2012 08/29/2016 PMDD (premenstrual dysphoric disorder) 09/10/2012 07/06/2015 Perimenopausal 09/10/2012 07/06/2015 documented as of this encounter (statuses as of 08/18/2023) [address]28-2012 History of Past illness Narrative* Problem Noted Date Diagnosed Date Resolved Date Unspecified essential hypertension 09/10/2012 08/29/2016 PMDD (premenstrual dysphoric disorder) 09/10/2012 07/06/2015 Perimenopausal 09/10/2012 07/06/2015 documented as of this encounter (statuses as of 08/18/2023) [address]28-2012 History of Past illness Narrative* Problem Noted Date Diagnosed Date Resolved Date Unspecified essential hypertension 09/10/2012 08/29/2016 PMDD (premenstrual dysphoric disorder) 09/10/2012 07/06/2015 Perimenopausal 09/10/2012 07/06/2015 documented as of this encounter (statuses as of 08/31/2023) [address]28-2012 History of Past illness Narrative* Problem Noted Date Diagnosed Date Resolved Date Unspecified essential hypertension 09/10/2012 08/29/2016 PMDD (premenstrual dysphoric disorder) 09/10/2012 07/06/2015 Perimenopausal 09/10/2012 07/06/2015 documented as of this encounter (statuses as of 12/27/2023) [facility] + Plan note Future Appointments Appointment Date:09/28/2022 03:20:00 PM Scheduled Provider:RICKI GRIFFIN APRN, CNP Location:[facility] Appointment Type:[facility] evaluation noteNo assessment information available [facility] Work Phone: evaluation note* Diagnosis Epigastric pain- Primary Abdominal pain, epigastric Nausea and vomiting, unspecified vomiting type documented in this encounter [facility] note* Diagnosis Encounter for gynecological examination (general) (routine) without abnormal findings- Primary Encounter for screening mammogram for malignant neoplasm of breast Other screening mammogram Screening for osteoporosis Special screening for osteoporosis documented in this encounter [facility] note* Diagnosis Other gastritis without bleeding- Primary documented in this encounter [facility] note* Diagnosis Onset Date Resolution Status 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 Dilated cardiomyopathy acute Heart failure with reduced ejection fraction acute Hypoxia acute Nausea & vomiting acute Pneumonia acute Sepsis acute [facility] Work Phone: evaluation note* Diagnosis Onset Date Resolution Status 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 Coronary artery disease acut e Dyslipidemia acute Hypoxia acute Nausea & vomiting acute V-tach acute Acute on chronic combined sy stolic and diastolic heart failure chronic HTN (hypertension) chronic [facility] Work Phone: evaluation note* Diagnosis Onset Date Resolution Status V-tach acute Acute on chronic combined sy stolic and diastolic heart failure resolved Hypoxia resolved Nausea & vomiting resolved Epigastric pain chronic [facility] Work Phone: evaluation note* Diagnosis Onset Date Resolution Status 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 Acute on chronic combined sy stolic and diastolic heart failure resolved Hypoxia resolved Nausea & vomiting resolved Essential hypertension acute Hyperlipidemia acute Ischemic cardiomyopathy acut e Nonsustained ventricular tachycardia acute 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 Stented coronary artery February 25, [address] [facility] Work Phone: evaluation note* Diagnosis Chronic systolic heart failure (HCC)- Primary Chronic systolic heart failure Primary hypertension Unspecified essential hypertension Coronary artery disease involving [place] coronary artery of [place] heart without angina pectoris Hyperlipidemia, unspecified hyperlipidemia type Ischemic cardiomyopathy Other specified forms of chronic ischemic heart disease documented in this encounter [facility]* Diagnosis Epigastric pain- Primary Abdominal pain, epigastric Nausea and vomiting, unspecified vomiting type documented in this encounter [facility] note* Diagnosis Encounter for screening mammogram for malignant neoplasm of breast Other screening mammogram documented in this encounter [facility] note* Diagnosis Onset Date Resolution Status Essential hypertension acute Hyperlipidemia acute Ischemic cardiomyopathy acut e Nonsustained ventricular tachycardia acute 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 Stented coronary artery February 25, 2023 [facility] Essential hypertension acute Hyperlipidemia acute Ischemic cardiomyopathy acut e Nonsustained ventricular tachycardia acute 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 Stented coronary artery February 25, 2023 [facility] Work Phone: Evaluation note* Diagnosis Onset Date Resolution Status Essential hypertension acute Hyperlipidemia acute Ischemic cardiomyopathy acut e Nonsustained ventricular tachycardia acute 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 Stented coronary artery February 25, 2023 [facility] Work Phone: Evaluation note* Diagnosis Chronic systolic heart failure (HCC)- Primary Chronic systolic heart failure Primary hypertension Unspecified essential hypertension Coronary artery disease involving [place] coronary artery of [place] heart without angina pectoris Hyperlipidemia, unspecified hyperlipidemia type Ischemic cardiomyopathy Other specified forms of chronic ischemic heart disease documented in this encounter [facility] note* Diagnosis Encounter for screening mammogram for malignant neoplasm of breast Other screening mammogram documented in this encounter [facility] note* Diagnosis Encounter for gynecological examination (general) (routine) without abnormal findings- Primary Encounter for screening for human papillomavirus (HPV) Special screening examination for human papillomavirus (HPV) Pap smear for cervical cancer screening Screening for malignant neoplasm of the cervix Encounter for screening mammogram for breast cancer Encounter for screening for osteoporosis Special screening for osteoporosis Asymptomatic postmenopausal status documented in this encounter [facility] note* Diagnosis Encounter for screening for osteoporosis Special screening for osteoporosis Asymptomatic postmenopausal status documented in this encounter [facility] course Narrative No data available for this section [facility] Discharge instructions No data available for this section [facility] Progress note No data available for this section [facility] Reason for referral (narrative)* Outpatient Procedure (Routine) - Authorized Specialty Diagnoses / Procedures Referred By Dayan woods Referred To Contact [facility] Diagnoses Epigastric pain Nausea and vomiting, unspecified vomiting type Procedures EGD DIAGNOSTIC ESOPHAGOGASTRODUODENOSC OPY TRANSORAL DIAGNOSTIC Sony Cedeño MD [address] [place] [address] [facility] [address] [place] [address] Referral ID Status Reason Start Date Expiration Date Visits Requested Visits Authorized [id number] Authorized Auto-Generat ed Referral 07/17/2022 07/17/2023 1 1 [facility] for referral (narrative)* Outpatient Procedure (Routine) - Closed Specialty Diagnoses / Procedures Referred By Dayan woods Referred To Contact [facility] Diagnoses Epigastric pain Nausea and vomiting, unspecified vomiting type Procedures EGD DIAGNOSTIC ESOPHAGOGASTRODUODENOSC OPY TRANSORAL DIAGNOSTIC Sony Cedeño MD [address] [place] [address] [address] Referral ID Status Reason Start Date Expiration Date V isits Requested Visits Authorized [id number] Closed Auto-Generate d Referral 07/17/2022 07/17/2023 1 1 T [facility] for referral (narrative)* Diagnostic Procedure Only (Routine) - Closed Specialty Diagnoses / Procedures Referred By Dayan woods Referred To Contact [facility] Diagnoses Encounter for screening mammogram for malignant neoplasm of breast Procedures JON SCREENING W JOSHUA SCREENING DIGITAL BREAST TOMOSYNTHESIS BI SCREENING MAMMOGRAPHY BI 2-VIEW BREAST INC CAD Aracelis Mccormick MD [address] [place] [place] [address] [facility] [address] [place] [address] Referral ID Status Reason Start Date Expiration Date V isits Requested Visits Authorized [id number] Closed Auto-Generate d Referral 09/14/2024 10/14/2025 1 1 [facility] for referral (narrative)* Diagnostic Procedure Only (Routine) - Authorized Specialty Diagnoses / Procedures Referred By Dayan woods Referred To Contact [facility] Diagnoses Encounter for screening for osteoporosis Asymptomatic postmenopausal status Procedures DXA-AXIAL SKELETON DXA BONE DENSITY STUDY / SITES AXIAL SKEL Aracelis Mccormick MD [address] [place] [place] [address] [place] [id number] Referral ID Status Reason Start Date Expiration Date Visits Requested Visits Authorized [id number] Authorized Auto-Generat ed Referral 09/21/2024 10/21/2025 1 1 * Diagnostic Procedure Only (Routine) - Authorized Specialty Diagnoses / Procedures Referred By Dayan woods Referred To Contact [facility] Diagnoses Encounter for screening mammogram for breast cancer Procedures JON SCREENING W JOSHUA SCREENING DIGITAL BREAST TOMOSYNTHESIS BI SCREENING MAMMOGRAPHY BI 2-VIEW BREAST INC CAD Aracelis Mccormick MD [address] [place] [place] [address] [facility] [address] [place] [address] Referral ID Status Reason Start Date Expiration Date Visits Requested Visits Authorized [id number] Authorized Auto-Generat ed Referral 09/21/2024 10/21/2025 1 1 [facility] for referral (narrative)No reason for [facility] Reason for visit Narrative* Outpatient Procedure (Routine) - Closed Specialty Diagnoses / Procedures Referred By Dayan woods Referred To Contact [facility] Diagnoses Epigastric pain Nausea and vomiting, unspecified vomiting type Procedures EGD DIAGNOSTIC ESOPHAGOGASTRODUODENOSC OPY TRANSORAL DIAGNOSTIC Sony Cedeño MD [address] [place] [address] [facility] [address] [place] [address] Referral ID Status Reason Start Date Expiration Date V isits Requested Visits Authorized [id number] Closed Auto-Generate d Referral 07/17/2022 07/17/2023 1 1 [facility] for visit Narrative* Diagnostic Procedure Only (Routine) - Closed Specialty Diagnoses / Procedures Referred By Dayan woods Referred To Contact [facility] Diagnoses Encounter for screening mammogram for malignant neoplasm of breast Procedures JON SCREENING W JOSHUA SCREENING DIGITAL BREAST TOMOSYNTHESIS BI SCREENING MAMMOGRAPHY BI 2-VIEW BREAST INC CAD Aracelis Mccormick MD [address] [place] [place] [address] [facility] [address] [place] [address] Referral ID Status Reason Start Date Expiration Date V isits Requested Visits Authorized [id number] Closed Auto-Generate d Referral 08/14/2022 09/13/2023 1 1 [facility] for visit Narrative* Diagnostic Procedure Only (Routine) - Closed Specialty Diagnoses / Procedures Referred By Dayan woods Referred To Contact [facility] Diagnoses Encounter for screening mammogram for malignant neoplasm of breast Procedures JON SCREENING W JOSHUA SCREENING DIGITAL BREAST TOMOSYNTHESIS BI SCREENING MAMMOGRAPHY BI 2-VIEW BREAST INC CAD Aracelis Mccormick MD [address] [place] [place] [address] [facility] [address] [place] [address] Referral ID Status Reason Start Date Expiration Date V isits Requested Visits Authorized [id number] Closed Auto-Generate d Referral 09/14/2024 10/14/2025 1 1 [facility] for visit Narrative* Diagnostic Procedure Only (Routine) - Closed Specialty Diagnoses / Procedures Referred By Dayan t Referred To Contact [facility] Diagnoses Encounter for screening for osteoporosis Asymptomatic postmenopausal status Procedures DXA-AXIAL SKELETON DXA BONE DENSITY STUDY SITES AXIAL Aracelis Henderson MD [address] [place] [address] [place] [id number] Referral ID Status Reason Start Date Expiration Date V isits Requested Visits Authorized [id number] Closed Auto-Generate d Referral 09/21/2024 10/21/2025 1 1 [facility] Chief Complaint and Reason for Visit Chief Complaint 6 MO ROUTINE LABS Chief Complaint 6 MO ROUTINE LABS abd pain Chief Complaint abd pain ABD PAIN Chief Complaint DDD RX HERE CAD, AVB, LT VENT HYPERTROPHY NAUSEA Chief Complaint DDD RX HERE CAD, AVB, LT VENT HYPERTROPHY NAUSEA SEPSIS SECONDARY TO PNEUMONIA Reason for Visit 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 Dilated cardiomyopathy Heart failure with reduced ejection fraction Hypoxia Nausea & vomiting Pneumonia Sepsis Chief Complaint DDD RX HERE CAD, AVB, LT VENT HYPERTROPHY NAUSEA SEPSIS SECONDARY TO PNEUMONIA SEPSIS SECONDARY TO PNEUMONIA SEPSIS SECONDARY TO PNEUMONIA SEPSIS SECONDARY TO PNEUMONIA SEPSIS SECONDARY TO PNEUMONIA SEPSIS SECONDARY TO PNEUMONIA SEPSIS SECONDARY TO PNEUMONIA SEPSIS SECONDARY TO PNEUMONIA Reason for Visit 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 Coronary artery disease Dyslipidemia Hypoxia Nausea & vomiting V-tach Acute on chronic combined systolic and diastolic heart failure HTN (hypertension) Chief Complaint DDD RX HERE CAD, AVB, LT VENT HYPERTROPHY NAUSEA SEPSIS SECONDARY TO PNEUMONIA SEPSIS SECONDARY TO PNEUMONIA SEPSIS SECONDARY TO PNEUMONIA SEPSIS SECONDARY TO PNEUMONIA SEPSIS SECONDARY TO PNEUMONIA SEPSIS SECONDARY TO PNEUMONIA SEPSIS SECONDARY TO PNEUMONIA SEPSIS SECONDARY TO PNEUMONIA SEPSIS SECONDARY TO PNEUMONIA SEPSIS SECONDARY TO PNEUMONIA PCI w/coronary stenting H FU Reason for Visit V-tach Acute on chronic combined systolic and diastolic heart failure Hypoxia Nausea & vomiting Epigastric pain Chief Complaint CAD, AVB, LT VENT HY PERTROPHY NAUSEA SEPSIS SECONDARY TO PNEUMONIA SEPSIS SECONDARY TO PNEUMONIA SEPSIS SECONDARY TO PNEUMONIA SEPSIS SECONDARY TO PNEUMONIA SEPSIS SECONDARY TO PNEUMONIA SEPSIS SECONDARY TO PNEUMONIA SEPSIS SECONDARY TO PNEUMONIA SEPSIS SECONDARY TO PNEUMONIA SEPSIS SECONDARY TO PNEUMONIA SEPSIS SECONDARY TO PNEUMONIA PCI w/coronary stenting H FU Amb Documentation AGMT 03/29 NEEDS PRIOR TO 02/26 FOR MED. 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 Hypoxia Nausea & vomiting Essential hypertension Hyperlipidemia Ischemic cardiomyopathy Nonsustained ventricular tachycardia Combined systolic and diastolic heart failure Stented coronary artery Chief Complaint CAD, AVB, LT VENT HY PERTROPHY NAUSEA SEPSIS SECONDARY TO PNEUMONIA SEPSIS SECONDARY TO PNEUMONIA SEPSIS SECONDARY TO PNEUMONIA SEPSIS SECONDARY TO PNEUMONIA SEPSIS SECONDARY TO PNEUMONIA SEPSIS SECONDARY TO PNEUMONIA SEPSIS SECONDARY TO PNEUMONIA SEPSIS SECONDARY TO PNEUMONIA SEPSIS SECONDARY TO PNEUMONIA SEPSIS SECONDARY TO PNEUMONIA PCI w/coronary stenting H FU Amb Documentation AGMT 03/29 NEEDS PRIOR TO 02/26 FOR MED. 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 Hypoxia Nausea & vomiting Essential hypertension Hyperlipidemia Ischemic cardiomyopathy Nonsustained ventricular tachycardia Combined systolic and diastolic heart failure Stented coronary artery Chief Complaint CAD, AVB, LT VENT HY PERTROPHY NAUSEA SEPSIS SECONDARY TO PNEUMONIA SEPSIS SECONDARY TO PNEUMONIA SEPSIS SECONDARY TO PNEUMONIA SEPSIS SECONDARY TO PNEUMONIA SEPSIS SECONDARY TO PNEUMONIA SEPSIS SECONDARY TO PNEUMONIA SEPSIS SECONDARY TO PNEUMONIA SEPSIS SECONDARY TO PNEUMONIA SEPSIS SECONDARY TO PNEUMONIA SEPSIS SECONDARY TO PNEUMONIA PCI w/coronary stenting H FU Amb Documentation AGMT 03/29 NEEDS PRIOR TO 02/26 FOR MED. 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 Hypoxia Nausea & vomiting Essential hypertension Hyperlipidemia Ischemic cardiomyopathy Nonsustained ventricular tachycardia Combined systolic and diastolic heart failure Stented coronary artery Chief Complaint CAD, AVB, LT VENT HY PERTROPHY NAUSEA SEPSIS SECONDARY TO PNEUMONIA SEPSIS SECONDARY TO PNEUMONIA SEPSIS SECONDARY TO PNEUMONIA SEPSIS SECONDARY TO PNEUMONIA SEPSIS SECONDARY TO PNEUMONIA SEPSIS SECONDARY TO PNEUMONIA SEPSIS SECONDARY TO PNEUMONIA SEPSIS SECONDARY TO PNEUMONIA SEPSIS SECONDARY TO PNEUMONIA SEPSIS SECONDARY TO PNEUMONIA PCI w/coronary stenting H FU Amb Documentation AGMT 03/29 NEEDS PRIOR TO 02/26 FOR MED. 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 Hypoxia Nausea & vomiting Essential hypertension Hyperlipidemia Ischemic cardiomyopathy Nonsustained ventricular tachycardia Combined systolic and diastolic heart failure Stented coronary artery Chief Complaint CAD, AVB, LT VENT HY PERTROPHY NAUSEA SEPSIS SECONDARY TO PNEUMONIA SEPSIS SECONDARY TO PNEUMONIA SEPSIS SECONDARY TO PNEUMONIA SEPSIS SECONDARY TO PNEUMONIA SEPSIS SECONDARY TO PNEUMONIA SEPSIS SECONDARY TO PNEUMONIA SEPSIS SECONDARY TO PNEUMONIA SEPSIS SECONDARY TO PNEUMONIA SEPSIS SECONDARY TO PNEUMONIA SEPSIS SECONDARY TO PNEUMONIA PCI w/coronary stenting H FU Amb Documentation AGMT 03/29 NEEDS PRIOR TO 02/26 FOR MED. 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 Hypoxia Nausea & vomiting Essential hypertension Hyperlipidemia Ischemic cardiomyopathy Nonsustained ventricular tachycardia Combined systolic and diastolic heart failure Stented coronary artery Chief Complaint 3 M FU 3 M FU Ischemic cardiomyopathy Amb Documentation Reason for Visit Essential hypertensi on Hyperlipidemia Ischemic cardiomyopathy Nonsustained ventricular tachycardia Combined systolic and diastolic heart failure Stented coronary artery Essential hypertension Hyperlipidemia Ischemic cardiomyopathy Nonsustained ventricular tachycardia Combined systolic and diastolic heart failure Stented coronary artery Chief Complaint 3 M FU Ischemic cardiomyopathy Amb Documentation Reason for Visit Essential hypertensi on Hyperlipidemia Ischemic cardiomyopathy Nonsustained ventricular tachycardia Combined systolic and diastolic heart failure Stented coronary artery Chief Complaint Admit Date 6 M FU January 06, 2025 3:4 0pm Reason for Visit Admit Date Essential hypertension January 06, 2025 3:40pm Hyperlipidemia January 06, 2025 3:4 0pm Ischemic cardiomyopathy January 06, 2025 3:40pm Nonsustained ventricular tachycardia Mar 2024 3:40pm Stented coronary artery January 06, 2025 3:40pm Chief Complaint Admit Date 6 M FU January 06, 2025 3:4 0pm PRESENCE OF CORONARY ANGIOPLASTY IMPLANT AND GRAFT March 29, 2025 12:34pm Amb Documentation March 30, 2025 12:2 1pm Family History No Family History Records Found Relationship Condition Age at Onset Recorded Date/T liang Unknown Family History?- Unknown June 152015 7:05pm Family History?- Unknown June 152015 7:05pm Family History?Heart Disease, - Unknown July 03, 2016 7:05pm Relationship Condition Age at Onset Recorded Date/T liang Unknown Family History?- Unknown June 152015 6:05pm Family History?- Unknown June 152015 6:05pm Family History?Heart Disease, - Unknown July 03, 2016 6:05pm Relationship Condition Age at Onset Recorded Date/T liang Not Specified Cardiac disease Unknown Advance Directives No Advanced Directives Records Found Advance Directive Response Recorded Date/ Time Advance Directives No September 10:47am Living Will No April 20, 2021 9 :23pm Power of Gyroscopic Engineering Technician No April 20, 2021 9:23pm Advance Directive Response Recorded Date/ Time Advance Directives No September 10:47am Living Will No July 12, 2022 11:49am Power of Gyroscopic Engineering Technician No June 11:49am Advance Directive Response Recorded Date/ Time Advance Directives No September 9:47am Living Will No July 14 5:26pm Power of Gyroscopic Engineering Technician No July 14 022 5:26pm Advance Directive Response Recorded Date/ Time Advance Directives No September 10:47am Living Will No February 22, 2023 8 :34am Power of Gyroscopic Engineering Technician No February 22, 2023 8:34am Advance Directive Response Recorded Date/ Time Advance Directives No September 10:47am Living Will No February 22, 2023 4 :58pm Power of Gyroscopic Engineering Technician No February 22, 2023 4:58pm Advance Directive Response Recorded Date/ Time Advance Directives No September 10:47am Living Will No February 22, 2023 9 :38pm Power of Gyroscopic Engineering Technician No February 22, 2023 9:38pm Advance Directive Response Recorded Date/ Time Advance Directives on File No February 132022 8:44am Advance Directives No September 10:47am Living Will No March 13, 2023 8 :44am Power of Gyroscopic Engineering Technician No March 13, 2023 8:44am Latest Code Status on File Code Status Date Activated Date Inactivated Comments Full Code 02/26/2023 4:37 PM 03/01/2023 8:19 PM Full Code Order Discussed With: Patient Advance Directive Response Recorded Date/ Time Advance Directives on File No February 132022 8:44am Advance Directives No September 10:47am Living Will No April 24, 2023 2:26pm Power of Gyroscopic Engineering Technician No April 24 2:26pm Latest Code Status on File Code Status Date Activated Date Inactivated Comments Full Code 02/26/2023 4:37 PM 03/01/2023 8:19 PM Question Answer Comments Full Code Order Discussed With: Patient Latest Code Status on File Code Status Date Activated Date Inactivated Comments Full Code 02/26/2023 4:37 PM 03/01/2023 8:19 PM Question Answer Comments Full Code Order Discussed With: Patient Advance Directive Response Recorded Date/ Time Advance Directives No September 9:47am Living Will No April 24, 2023 1:26pm Power of Gyroscopic Engineering Technician No April 24 1:26pm Date Activated Date Inactivated Comments 02/26/2023 4:37 PM 03/01/2023 8:19 PM Question Answer Comments Full Code Order Discussed With: Patient Date Activated Date Inactivated Comments 02/26/2023 4:37 PM 03/01/2023 8:19 PM Question Answer Comments Full Code Order Discussed With: Patient Advance Directive Response Recorded Date/ Time Living Will No April 24, 2023 2:26pm Do you have a Healthcare Power of Gyroscopic Engineering Technician? No April 24, 2023 2:26pm Advance Directives No September 10:47am Summary Purpose Medications Administered Section Inactive Administered Medications - up to 3 most recent administrations Medication Order MAR Action Action Date Dose Rate Site benzocaine 20% 1 [place] (TOPEX) 1 [place], TOPICAL, DIRECTED, Starting on Corrina 08/09/22 at 1200, Until [place]rina 08/09/22 at 1559, DOSING DIRECTED BY PHYSICIAN FOR PROCEDURAL SEDATION ONLY - Pharmaceutical Waste: Aerosol -, Intraprocedure Given 08/09/2022 11:30 AM EDT 1 [place] diphenhydrAMINE 12.5-50 mg injection (BENADRYL) 12.5-50 mg, [...] Given 08/09/2022 11:36 AM EDT 1 mg Given 08/09/2022 11:31 AM EDT 4 mg Additional Source Comments Goals (unrecognized section and content) Goals may be documented in a n alternate sectionGoals may be documented in an alternate section No data available for this sectionGoals may be documented in an alternate sectionGoals may be documented in an alternate sectionGoals may be documented in an alternate sectionGoals may be documented in an alternate sectionGoals may be documented in an alternate sectionGoals may be documented in an alternate sectionGoals may be documented in an alternate section Source Comments (unrecognize d section and content) In the event this informatio n is protected by the Federal Confidentiality of Alcohol and Drug Abuse Patient Records regulations: The Federal rules restrict any use of the information to criminally investigate or prosecute any alcohol or drug abuse patient.[facility] the event this information is protected by the Federal Confidentiality of Alcohol and Drug Abuse Patient Records regulations: The Federal rules restrict any use of the information to criminally investigate or prosecute any alcohol or drug abuse patient.[facility] the event this information is protected by the Federal Confidentiality of Alcohol and Drug Abuse Patient Records regulations: The Federal rules restrict any use of the information to criminally investigate or prosecute any alcohol or drug abuse patient.[facility] the event this information is protected by the Federal Confidentiality of Alcohol and Drug Abuse Patient Records regulations: The Federal rules restrict any use of the information to criminally investigate or prosecute any alcohol or drug abuse patient.[facility] the event this information is protected by the Federal Confidentiality of Alcohol and Drug Abuse Patient Records regulations: The Federal rules restrict any use of the information to criminally investigate or prosecute any alcohol or drug abuse patient.[facility] the event this information is protected by the Federal Confidentiality of Alcohol and Drug Abuse Patient Records regulations: The Federal rules restrict any use of the information to criminally investigate or prosecute any alcohol or drug abuse patient.[facility] the event this information is protected by the Federal Confidentiality of Alcohol and Drug Abuse Patient Records regulations: The Federal rules restrict any use of the information to criminally investigate or prosecute any alcohol or drug abuse patient.[facility] the event this information is protected by the Federal Confidentiality of Alcohol and Drug Abuse Patient Records regulations: The Federal rules restrict any use of the information to criminally investigate or prosecute any alcohol or drug abuse patient.[facility] the event this information is protected by the Federal Confidentiality of Alcohol and Drug Abuse Patient Records regulations: The Federal rules restrict any use of the information to criminally investigate or prosecute any alcohol or drug abuse patient.[facility] the event this information is protected by the Federal Confidentiality of Alcohol and Drug Abuse Patient Records regulations: The Federal rules restrict any use of the information to criminally investigate or prosecute any alcohol or drug abuse patient.[facility] the event this information is protected by the Federal Confidentiality of Alcohol and Drug Abuse Patient Records regulations: The Federal rules restrict any use of the information to criminally investigate or prosecute any alcohol or drug abuse patient.[facility] the event this information is protected by the Federal Confidentiality of Alcohol and Drug Abuse Patient Records regulations: The Federal rules restrict any use of the information to criminally investigate or prosecute any alcohol or drug abuse patient.[facility] the event this information is protected by the Federal Confidentiality of Alcohol and Drug Abuse Patient Records regulations: The Federal rules restrict any use of the information to criminally investigate or prosecute any alcohol or drug abuse patient.[facility] the event this information is protected by the Federal Confidentiality of Alcohol and Drug Abuse Patient Records regulations: The Federal rules restrict any use of the information to criminally investigate or prosecute any alcohol or drug abuse patient.[facility] the event this information is protected by the Federal Confidentiality of Alcohol and Drug Abuse Patient Records regulations: The Federal rules restrict any use of the information to criminally investigate or prosecute any alcohol or drug abuse patient.[facility] the event this information is protected by the Federal Confidentiality of Alcohol and Drug Abuse Patient Records regulations: The Federal rules restrict any use of the information to criminally investigate or prosecute any alcohol or drug abuse patient.[facility] Reason for Visit (unrecogniz ed section and content) Reason Comments Follow Up [facility] ER 07/12/22 Reason Comments Yearly Exam Reason Comments Patient Question Reason Comments 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 Reason Comments Breathing Problem Reason Comments Breathing Problem CHF Reason Comments Yearly Exam Reason Comments Results Care Teams (unrecognized sec tion and content) Rn Peritoneal Dialysis Relationship Specialty Start Date End Date Ricki Griffin, GRAB JACK WORKER [address] [place] [address] PCP - General Family Medicine 08/08/16 Rn Peritoneal Dialysis Relationship Specialty Start Date End Date Ricki Griffin, GRAB JACK WORKER [address] [place] [address] PCP - General Family Medicine 08/08/16 Rn Peritoneal Dialysis Relationship Specialty Start Date End Date Ricki Griffin, GRAB JACK WORKER [address] [place] [address] PCP - General Family Medicine 08/08/16 Rn Peritoneal Dialysis Relationship Specialty Start Date End Date Ricki Griffin, GRAB JACK WORKER [address] [place] [address] PCP - General Family Medicine 08/08/16 Rn Peritoneal Dialysis Relationship Specialty Start Date End Date Ricki Griffin, GRAB JACK WORKER [address] [place] [address] PCP - General Family Medicine 08/08/16 Team Status: Active Member Role Status Dates Ricki Griffin TERMITE CONTROL SERVICER, TERMITE CONTROL SERVICER-C Family Provider Activ e Ricki Griffin TERMITE CONTROL SERVICER, TERMITE CONTROL SERVICER-C Primary Care Provider Active Team Status: Inactive Member Role Status Dates Ricki Griffin TERMITE CONTROL SERVICER, TERMITE CONTROL SERVICER-C Primary Care Provider Active Dr. Edmundo Monae DO Attending Provider, Emergency Aspen hennessy Active Team Status: Inactive Member Role Status Dates Ricki Griffin TERMITE CONTROL SERVICER, TERMITE CONTROL SERVICER-C Primary Care Provider Active Dr. Aleksandar Rain MD Attending Provider, Emergency Pro vider Active Team Status: Inactive Member Role Status Dates Ricki Griffin TERMITE CONTROL SERVICER, TERMITE CONTROL SERVICER-C Primary Care Provider, Attending Provider, Referring Provider Active Team Status: Active Member Role Status Dates Ricki Griffin TERMITE CONTROL SERVICER, TERMITE CONTROL SERVICER-C Primary Care Provider Active Dr. Jose Antonio Reeves MD Attending Provider Active Team Status: Active Member Role Status Dates Ricki Griffin TERMITE CONTROL SERVICER, TERMITE CONTROL SERVICER-C Primary Care Provider, Attending Provider, Referring Provider Active Team Status: Inactive Member Role Status Dates Ricki Griffin TERMITE CONTROL SERVICER, TERMITE CONTROL SERVICER-C Primary Care Provider Active Dr. Arcadio Koehler MD Emergency Provider Active Team Status: Active Member Role Status Dates Ricki Griffin TERMITE CONTROL SERVICER, TERMITE CONTROL SERVICER-C Primary Care Provider Active Dr. Dinesh Burris DO Emergency Provider Active Dr. Julio César Arndt MD Admit Provider, Attending Pro vider Active Team Status: Active Member Role Status Dates Ricki Griffin TERMITE CONTROL SERVICER, TERMITE CONTROL SERVICER-C Primary Care Provider Active Dr. Dinesh Burris DO Emergency Provider Active Dr. Julio César Arndt MD Admit Provider, Other Provide r Active Dr. Zulma Brunner , Other Provider Active Dr. Rohan Awan MD Attending Provider, Othe r Provider Active Dr. Kt Romero , DO Other Provider Active Team Status: Active Member Role Status Dates Ricki Griffin TERMITE CONTROL SERVICER, TERMITE CONTROL SERVICER-C Primary Care Provider Active Dr. Dinesh Burris , DO Emergency Provider Active Dr. Julio César Arndt MD Admit Provider, Other Provide r Active Dr. Zulma Brunner , DO Attending Provider, Other Provide r Active Dr. Rohan Awan MD Other Provider Active Dr. Kt Romero , DO Other Provider Active Team Status: Active Member Role Status Dates Ricki Griffin TERMITE CONTROL SERVICER, TERMITE CONTROL SERVICER-C Primary Care Provider Active Dr. Dinesh Burris , DO Emergency Provider Active Dr. Julio César Arndt MD Admit Provider, Other Provide r Active Dr. Zulma Brunner , DO Other Provider Active Dr. Rohan Awan MD Other Provider Active Dr. Kt Romero , DO Other Provider Active Dr. Jose Antonio Reeves MD Attending Provider Active Team Status: Active Member Role Status Dates Ricki Griffin TERMITE CONTROL SERVICER, TERMITE CONTROL SERVICER-C Primary Care Provider Active Dr. Dinesh Burris , DO Emergency Provider Active Dr. Julio César Arndt MD Admit Provider, Other Provide r Active Dr. Zulma Brunner , DO Other Provider Active Dr. Rohan Awan MD Other Provider Active Dr. Kt Romero , DO Attending Provider, Other Prov ider Active Team Status: Active Member Role Status Dates Ricki Griffin TERMITE CONTROL SERVICER, TERMITE CONTROL SERVICER-C Primary Care Provider Active Dr. Dinesh Burris , DO Emergency Provider Active Dr. Julio César Arndt MD Admit Provider, Other Provide r Active Dr. Zulma Brunner , DO Attending Provider Active Dr. Rohan Awan MD Other Provider Active Dr. Kt Romero , DO Other Provider Active Team Status: Active Member Role Status Dates Ricki Griffin TERMITE CONTROL SERVICER, TERMITE CONTROL SERVICER-C Primary Care Provider Active Dr. Dinesh Burris , DO Emergency Provider Active Dr. Julio César Arndt MD Admit Provider, Other Provide r Active Dr. Zulma Brunner , DO Other Provider Active Dr. Rohan Awan MD Other Provider Active Dr. Kt Romero , DO Other Provider Active Dr. Jose Antonio Reeves MD Attending Provider, Referring Pro vider Active Team Status: Inactive Member Role Status Dates Ricki Griffin TERMITE CONTROL SERVICER, TERMITE CONTROL SERVICER-C Primary Care Provider, Referring Provider Active Dr. Kt Romero , Attending Provider Active Team Status: Inactive Member Role Status Dates Ricki Griffin TERMITE CONTROL SERVICER, TERMITE CONTROL SERVICER-C Primary Care Provider Active Dr. Arcadio Koehler MD Attending Provider, Emergency Provider Active Team Status: Inactive Member Role Status Dates Ricki Griffin TERMITE CONTROL SERVICER, TERMITE CONTROL SERVICER-C Primary Care Provider Active Dr. Dinesh Burris DO Emergency Provider Active Dr. Julio César Arndt MD Admit Provider, Other Provide r Active Dr. Zulma Brunner DO Attending Provider Active Dr. Rohan Awan MD Other Provider Active Dr. Kt Romero , DO Other Provider Active Team Status: Inactive Member Role Status Dates Ricki Griffin TERMITE CONTROL SERVICER, TERMITE CONTROL SERVICER-C Primary Care Provider Active Dr. Jose Antonio Reeves MD Attending Provider, Referring Pro vider Active Rn Peritoneal Dialysis Relationship Specialty Start Date End Date Ricki Griffin, GRAB JACK WORKER [address] [place] [address] PCP - General Family Medicine 08/08/16 Team Status: Active Member Role Status Dates Ricki Griffin TERMITE CONTROL SERVICER, TERMITE CONTROL SERVICER-C Primary Care Provider Active Dr. Dinesh Burris DO Emergency Provider Active Dr. Julio César Arndt MD Admit Provider, Other Provide r Active Dr. Zulma Brunner , Referring Provider, Other Provide r Active Dr. Rohan Awan MD Other Provider Active Dr. Kt Romero , Attending Provider, Other Prov ider Active Team Status: Inactive Member Role Status Dates Ricki Griffin TERMITE CONTROL SERVICER, TERMITE CONTROL SERVICER-C Primary Care Provider, Referring Provider Active Lashay Prater TERMITE CONTROL SERVICER, TERMITE CONTROL SERVICER-C Attending Provider Active Team Status: Active Member Role Status Dates Ricki Griffin TERMITE CONTROL SERVICER, TERMITE CONTROL SERVICER-C Primary Care Provider Active Sandra Moreau Attending Provider Active Team Status: Active Member Role Status Dates Ricki Griffin TERMITE CONTROL SERVICER, TERMITE CONTROL SERVICER-C Primary Care Provider Active Dr. Jose Antonio Reeves MD Attending Provider, Referring Pro vider Active Team Status: Inactive Member Role Status Dates Ricki Griffin TERMITE CONTROL SERVICER, TERMITE CONTROL SERVICER-C Primary Care Provider Active Dr. Shira Oglesby MD Emergency Provider Active Team Status: Inactive Member Role Status Dates Ricki Griffin TERMITE CONTROL SERVICER, TERMITE CONTROL SERVICER-C Primary Care Provider Active Dr. Shira Oglesby MD Attending Provider, Emergency Provider Active Team Status: Inactive Member Role Status Dates Ricki Griffin TERMITE CONTROL SERVICER, TERMITE CONTROL SERVICER-C Primary Care Provider Active Lashay Prater TERMITE CONTROL SERVICER, TERMITE CONTROL SERVICER-C Attending Provider, Efrain hennessy Active Rn Peritoneal Dialysis Relationship Specialty Start Date End Date Ricki Griffin CNP [address] [place] [id number] PCP - General Family Medicine 08/08/16 Rn Peritoneal Dialysis Relationship Specialty Start Date End Date Ricki Griffin, MELODY [address] [place] [id number] PCP - General Family Medicine 08/08/16 Rn Peritoneal Dialysis Relationship Specialty Start Date End Date Ricki Griffin, MELODY [address] [place] [id number] PCP - General Family Medicine 08/08/16 Rn Peritoneal Dialysis Relationship Specialty Start Date End Date Ricki Griffin, MELODY [address] [place] [id number] PCP - General Family Medicine 08/08/16 Team Status: Active Member Role Status Dates Ricki Griffin TERMITE CONTROL SERVICER, TERMITE CONTROL SERVICER-C Primary Care Provider Active Lashay Prater TERMITE CONTROL SERVICER, TERMITE CONTROL SERVICER-C Attending Provider Active Rn Peritoneal Dialysis Relationship Specialty Start Date End Date Ricki Griffin, MELODY [address] [place] [id number] PCP - General Family Medicine 08/08/16 Rn Peritoneal Dialysis Relationship Specialty Start Date End Date Ricki Griffin, MELODY [address] [place] [id number] PCP - General Family Medicine 08/08/16 Rn Peritoneal Dialysis Relationship Specialty Start Date End Date Ricki GriffinMELODY [address] [place] [id number] PCP - General Family Medicine 08/08/16 Rn Peritoneal Dialysis Relationship Specialty Start Date End Date Ricki Griffin, GRAB JACK WORKER [address] [place] [address] PCP - General Family Medicine 08/08/16 Rn Peritoneal Dialysis Relationship Specialty Start Date End Date Ricki Griffin, GRAB JACK WORKER [address] [place] [id number] PCP - General Family Medicine 08/08/16 Rn Peritoneal Dialysis Relationship Specialty Start Date End Date Ricki Griffin, MELODY [address] [place] [id number] PCP - General Family Medicine 08/08/16 Team Status: Active Member Role Status Dates Ricki Griffin TERMITE CONTROL SERVICER, TERMITE CONTROL SERVICER-C Primary Care Provider Active Team Status: Inactive Member Role Status Dates Ricki Griffin TERMITE CONTROL SERVICER, TERMITE CONTROL SERVICER-C Primary Care Provider Active Start: December 072024 End: December 07, 2024 Ricki Griffin TERMITE CONTROL SERVICER, TERMITE CONTROL SERVICER-C Attending Provider Active Start: November End: December 07, 2024 Ricki Griffin TERMITE CONTROL SERVICER, TERMITE CONTROL SERVICER-C Referring Provider Active Start: November End: December 07, 2024 Team Status: Inactive Member Role Status Dates Ricki Griffin TERMITE CONTROL SERVICER, TERMITE CONTROL SERVICER-C Primary Care Provider Active Start: January 06, 2025 End: January 06, 2025 Ricki Griffin TERMITE CONTROL SERVICER, TERMITE CONTROL SERVICER-C Referring Provider Ac tive Start: January 06, 2025 End: January 06, 2025 Austen Castro TERMITE CONTROL SERVICER, TERMITE CONTROL SERVICER-C Attending Provider Active S tart: January 06, 2025 End: January 06, 2025 Team Status: Inactive Member Role Status Dates Ricki Griffin TERMITE CONTROL SERVICER, TERMITE CONTROL SERVICER-C Primary Care Provider Active Start: March 12, 2025 End: March 12, 2025 Dr. Jose Antonio Reeves MD Attending Provider Active S tart: March 12, 2025 End: March 12, 2025 Dr. Jose Antonio Reeves MD Referring Provider Active S tart: March 12, 2025 End: March 12, 2025 Team Status: Inactive Member Role Status Dates Ricki Griffin TERMITE CONTROL SERVICER, TERMITE CONTROL SERVICER-C Primary Care Provider Active Start: March 29, 2025 End: March 29, 2025 Austen Castro TERMITE CONTROL SERVICER, TERMITE CONTROL SERVICER-C Attending Provider Active S tart: March 29, 2025 End: March 29, 2025 Austen Castro TERMITE CONTROL SERVICER, TERMITE CONTROL SERVICER-C Referring Provider Active S tart: March 29, 2025 End: March 29, 2025 Team Status: Active Member Role Status Dates Ricki Griffin TERMITE CONTROL SERVICER, TERMITE CONTROL SERVICER-C Primary Care Provider Active Start: March 29, 2025 Dr. Jose Antonio Reeves MD Attending Provider Active S tart: March 29, 2025 Team Status: Active Member Role Status Dates Ricki Griffin TERMITE CONTROL SERVICER, TERMITE CONTROL SERVICER-C Primary Care Provider Active Start: March 30, 2025 Lashay Prater TERMITE CONTROL SERVICER, TERMITE CONTROL SERVICER-C Attending Provider Active Start: March 30, 2025 Care Team (unrecognized sect ion and content) Care Team Personnel Name: RICKI GRIFFIN DIGITAL SALES REPRESENTATIVE - GRAB JACK WORKER Position: P4 Advanced Practice Nurse Member Role: Primary Care Physician Address: Address: [address] [place] [address]- [place] Care Team Related Persons Name: ALEKSANDAR KATE INFORMATION SOURCE (unrecogn ized section and content) DATE CREATED AUTHOR 09/26/2022 [facility] DATE CREATED AUTHOR AUTHOR'S ORGANIZ ATION 03/27/2023 [facility] DATE CREATED AUTHOR AUTHOR'S ORGANIZ ATION 12/28/2023 [facility] DATE CREATED AUTHOR AUTHOR'S ORGANIZ ATION 12/23/2024 [facility] DATE CREATED AUTHOR AUTHOR'S ORGANIZ ATION 04/04/2025 [facility] FOR RECORDS PERTAINING TO PATIENTS WHO [...] BE BASED ON THE PRIMARY CLINICAL RECORDS. [email or web address] provides no warranty or guarantee of the accuracy or completeness of information in this document.
[2025-04-30 07:38] LABS: Hematocrit 37.4 % (37-47); Hemoglobin 12.3 g/dL (12.0-15.0); Mean Corp Hgb Conc 32.9 g/dL (32-36); Mean Corpuscular Volume 94.4 fL (81-99); Mean Platelet Vol. 9.4 fl (6.2-12.0); Platelet Count 373 K/mm3 (150-450); RBC Distribution Width CV 13.4 % (11.6-14.6); RBC Distribution Width SD 46.9 fl (35.1-43.9); Red Blood Count 3.96 M/mm3 (4.2-5.4); White Blood Count 7.2 K/mm3 (4.4-11.0)
[2025-04-30 08:09] LABS: AST(SGOT) 21 U/L (<=31); Alanine Aminotransfer ALT/SGPT 23 U/L (<=34); Albumin, Serum 4.5 g/dL (3.4-4.8); Alkaline Phosphatase 77 U/L (35-104); Anion Gap 13 (5-15); BUN 25 mg/dL (4-19); BUN/Creat Ratio 26.3 RATIO (10-20); Calcium,Total 9.9 mg/dL (7.6-11.0); Carbon Dioxide 25.4 mmol/L (21.0-32.0); Chloride 99 mmol/L (98-108); Globulin 2.8 g/dL (2.2-4.2); Glucose 109 mg/dL (70-99); Lipase 29 U/L (13-75); Potassium 4.0 mmol/L (3.3-5.1)
== END | disposition home or self-care (01) ==
LOC: LAB 06:56
PROVIDERS: PCP Nurse Practitioner Family; Referring Provider Nurse Practitioner Family; Visit Provider Nurse Practitioner Family
DX: R10.13 Epigastric pain (principal); R11.2 Nausea with vomiting, unspecified
CPT/HCPCS: 36415; 80053; 83690; 85027

== ENCOUNTER → 2025-05-01 | Outpatient (CLI) | payer BC, SELFPAY ==
--- OUTSIDE RECORDS SUMMARY | 2025-05-01 09:48 | XMS RPT_ITS | CCD ---
Author Organization [facility] Care Team Providers Care Critical Care Technician Name Role Phone Ricki Griffin CNP Primary Care Provider GABY BILLET DRILLER - RICKI OLIVER Primary Care Phys ician RAFY WILLIAMSON-MELODY, SAMEER Attending RICKI Gaviria CNP Primary Care Unavaila ble Gaby GRIZZLYMAN, GRIZZLYMAN-C Ricki Reese Primary Care Pr ovider Dr. Jose Antonio Reeves Attending Provider Dr. Dinesh Burris Emergency Provider [phone] Dr. Julio César Arndt Admit Provider Dr. Julio César Arndt Other Provider Dr. Zulma Brunner Other Provider Dr. Rohan Awan Attending Provider Dr. Rohan Awan Other Provider FriendDr. Meraz Other Provider Dr. Zulma Brunner Attending Provider Dr. Kt Romero Attending Provider [phone] Jose Antonio Reeves Referring Provider Gaby GRIZZLYMAN, GRIZZLYMAN-C Ricki Reese Referring Provi timo Ricki Griffin CNP Primary Care Provider OLY GUZMÁN Attending Unavailable DAVIE REY Admitting Unavailable ZULMA BRUNNER Referring Unavailab LENKA Coleman Consulting Unavailable GABY, RICKI D Primary Care Unavailable Dr. Zulma Brunner Referring Provider Sandra Moreau Attending Provider Unavailable Moi GRIZZLYMAN, GRIZZLYMAN-C Lashay Attending Provider Gaby GRIZZLYMAN, GRIZZLYMAN-C Ricki Reese Primary Care Pr ovider Gaby GRIZZLYMAN, GRIZZLYMAN-C Ricki Reese Referring Provi timo Moi GRIZZLYMAN, GRIZZLYMAN-C Lashay Attending Provider Dr. Jose Antonio Reeves Attending Provider [place] GRIZZLYMAN, GRIZZLYMAN-C Ricki Reese Primary Care Pr ovider Gaby GRIZZLYMAN, GRIZZLYMAN-C Ricki Reese Referring Provi timo Moi GRIZZLYMAN, GRIZZLYMAN-C Lashay Attending Provider Dr. Jose Antonio Reeves Referring Provider AURINTHUYN Attending Unavailable GABY, RICKI D Primary Care Unavailable GABY, RICKI D Primary Care Unavailable AURIN, SHAY Attending Unavailable GABY, RICKI D Primary Care Unavailable AURIN, SHAY Attending Unavailable GABY, RICKI D Primary Care Unavailable AURIN, SHAY Attending Unavailable Gaby JUNIOR LINUX ADMINISTRATOR, Ricki D Primary Care Provider JONG LOZOYA ARACELIS Referring Unavail able GABY, RICKI D Primary Care Unavailable NEYFABIOLAT DEVORA ARACELIS Attending Unavail able GABY, RICKI D Primary Care Unavailable NEYFABIOLAT DEVORA, ARACELIS Referring Unavail able GABY, RICKI D Primary Care Unavailable NEYFABIOLAT LOZOYA, ARACELIS Referring Unavail able [place] GRIZZLYMAN-C, Ricki Reese Primary Care Provi timo Gaby GRIZZLYMAN-CRicki Attending Provider Gaby GRIZZLYMAN-CRicki Referring Provider Matthew GRIZZLYMAN-Austen Sheridan Attending Provider Dr. Jose Antonio Reeves MD Attending Provider [phone] Jose Antonio Reeevs MD Referring Provider [phone] Matthew GRIZZLYMAN-C, Austen Traore Referring Provider Moi GRIZZLYMAN-C, Lashay Attending Provider [phone] Gaby GRIZZLYMAN, Ricki Reese Attending Unav ailable Gaby GRIZZLYMAN, Ricki Reese Referring Unav ailable Gaby GRIZZLYMAN, Ricki Reese Primary Care Unav ailable [place] GRIZZLYMAN, Ricki Reese Primary Care Unav ailable [place] GRIZZLYMAN, Ricki Reese Attending Unav ailable Gaby GRIZZLYMAN, Ricki Reese Referring Unav ailable [place]of GRIZZLYMAN, Austen Traore Referring Unavailable [place] GRIZZLYMAN, Ricki Reese Primary Care Unav ailable [place] GRIZZLYMAN, Austen Traore Attending Unavailable Leandro, Jose Antonio Attending Unavailable Leandro, Jose Antonio Referring Unavailable Gaby GRIZZLYMAN, Ricki Reese Primary Care Unav ailable Moi GRIZZLYMAN, Lashay Attending Unavailable [place] GRIZZLYMAN, Ricki Reese Primary Care Unav ailable Jose Antonio Reeves Attending Unavailable [place] GRIZZLYMAN, Ricki Reese Primary Care Unav ailable [place] GRIZZLYMAN, Austen Traore Attending Unavailable Gaby GRIZZLYMAN, Ricki Reese Referring Unav ailable Gaby GRIZZLYMAN, Ricki Reese Primary Care Unav ailable Moi GRIZZLYMAN, Lashay Attending Unavailable Gaby GRIZZLYMAN, Ricki Reese Referring Unav ailable [place] GRIZZLYMAN, Ricki Reese Primary Care Unav ailable Allergies Allergy Classification Reported Allergen(s) Allergy Type Date of Onset Reaction(s) Facility (19 sources) Adhesive Tape; Translations: [ADHESIVE TAPE (ROSINS)] Allergy to substance 09-10-2012 [facility] (3 sources) Nicotine; Translations: [nicotine] Drug Allergy 01-06-2025 [facility] Comment on above: Nicotine patch (1 source) Nicotine Drug Allergy 01-06-2025 [facility] Repository Medications Current Medications Medication Drug Class(es) Dates Sig (Normalized) Sig (Original) acetaminophen 325 mg / HYDROcodone bitartrate 5 mg oral tablet (3 sources) Opioid Agonist Start: 07-12-2022 take 1 tablet by mouth every six hours as needed Hydrocodone-Acet aminophen Active 1 TABLET PO EVERY 6 HOURS NEEDED 10 3 July 12, 2022 [id number] 200 actuat albuterol 0.09 mg/actuat metered dose [...] tab(s), 0 Refill(s), 09/26/22 13:20:00 EST, Pharmacy: [facility] 1812, 157.5, cm, 09/21/22 13:03:00 EST, Height, [...] week, # 7 cap(s), 1 Refill(s), Pharmacy: [facility], Vitamin D deficiency, 157, [...] tab(s), 0 Refill(s), 10/01/22 13:23:00 EST, Pharmacy: [facility], 157.5, cm, 09/21/22 13:03:00 EST, Height Start Date: 09/21/22 Stop Date: 10/01/22 Status: Ordered methylPREDNISolone 4 mg oral tablet (1 source) Corticosteroid Start: End: Medrol Dosepak 4 mg oral tablet Per Dosepak Instructions, Oral, Daily, as directed on package labeling, X 6 day(s), # 1 EA, 0 Refill(s), 09/27/22 13:21:00 EST, Pharmacy: [facility], 157.5, cm, 09/21/22 13:03:00 [...] q24h, # 3 EA, 1 Refill(s), Pharmacy: [facility], 157, cm, 04/06/22 15:49:00 [...] Comment on above: Take 1,000 mcg [facility] once daily. Vitamin B12 1000 mcg oral [...] pain, # 100 tab(s), 3 Refill(s), Pharmacy: [facility], 157, cm, 09/29/21 14:25:00 [...] Coronary arteriosclerosis; Translations: [Atherosclerotic heart disease of [place] coronary artery without angina pectoris] Onset: 09-10-2012 [...] Echo, Limited Studyon 2024 Echo, Limited Study [facility] [place] [address] Echo, Limited Study 03/29/25 1258 MR#: [id number] Acct: [id number] Name: VISHAL GEORGE Rep #: [id number] : 1960 65 From: Jose Antonio Reeves MD Attending Dr: Austen Castro NP-C Status: REG CLI Ordering Dr: Austen Castro NP GRIZZLYMAN-C Date: 03/29/25 Location: [facility] Sex: F C [...] Date Dictated: 03/29/25 1258 Date Transcribed: 03/29/251903 Wire Coater: Signed [facility] Limited echocardiogram repor tOrdered By: Jose Antonio Reeves on 03-29-2025 Study report [facility] [place] [address] Echo, Limited Study 03/29/25 1258 MR#: [id number] Acct: [id number] Name: VISHAL GEORGE Rep #:[id number] : 1960 65 From: Jose Antonio Carlson Attending Dr: Austen Castro, GRIZZLYMAN-C Sta tus: REG CLI Ordering Dr: Austen Castro NP GRIZZLYMAN-C Date: 03/29/25 Location: [facility] Sex: F C Admitted: Reason For Study [...] Date Dictated: 03/29/25 1258 Date Transcribed: 03/29/251903 Wire Coater: Signed [facility] Work Phone: [phone] Absolute lymphocyte countOrd ered By: Jose Antonio Leandro on 03-12-2025 Lymphocytes Auto (Unsp spec) [#/Vol] 1.63 10*3/uL 0.83-4.51 [facility] Absolute neutrophil countOrd ered By: Jose Antonio Leandro on 03-12-2025 Neutrophils (Bld) [#/Vol] 4.5 10*3/uL 2.0-7.7 [facility] Anion gap in Serum or Plasma Ordered By: Jose Antonio Leandro on 03-12-2025 Anion gap [Moles/Vol] 12 mmol/L 5-15 [facility] Automated lymphocyte count a s percentage of total leukocytesOrdered By: Jose Antonio Leandro on 03-12-2025 Lymphocytes/100 WBC Auto (Unsp spec) 22.6 % 19-41 [facility] BUN/creatinine ratioOrdered By: Tesuque [facility] on 03-12-2025 Urea nitrogen/Creatinine [Mass ratio] 23.1 mg/mg High 10- [facility] Basic Metabolic Profile (BMP )on 03-12-2025 BUN/CRE 23.1 RATIO High - [facility] Comment on above: Performed By: #### L 501.9520, L503.7505, L500.2500, L501.9310, L100.0100 ####[facility] [address] [place], [address] Calcium [Mass/Vol] 10.0 mg/dL Normal 7.6-11.0 [facility] Comment on above: Performed By: #### L 501.9520, L503.7505, L500.2500, L501.9310, L100.0100 ####[facility] [address] [place], [address] Chloride [Moles/Vol] 100 mmol/L Normal 98-108 [facility] Comment on above: Performed By: #### L 501.9520, L503.7505, L500.2500, L501.9310, L100.0100 ####[facility] [address] [place], [address] CO2 [Moles/Vol] 24.9 mmol/L Normal 21.0-32.0 [facility] Comment on above: Performed By: #### L 501.9520, L503.7505, L500.2500, L501.9310, L100.0100 ####[facility] [address] [place], [address] Creatinine [Mass/Vol] 0.78 mg/dL Normal 0.70-1.20 [facility] Comment on above: Performed By: #### L 501.9520, L503.7505, L500.2500, L501.9310, L100.0100 ####[facility] [address] [place], [address] GAP 12 Normal 5-15 [facility] Comment on above: Performed By: #### L 501.9520, L503.7505, L500.2500, L501.9310, L100.0100 ####[facility] [address] [place], [address] GFR/1.73 sq M.predicted among non-blacks MDRD (S/P/Bld) [Vol rate/Area] 86 mL/min/{1.73_m2} Normal >60 [facility] Comment on above: Result Comment: mL/m in/1.73m2 CKD-EPI Creatinine Equation (2020) Performed By: #### L 501.9520, L503.7505, L500.2500, L501.9310, L100.0100 ####[facility] [address] [place], [address] Glucose [Mass/Vol] 90 mg/dL Normal 70-99 [facility] Comment on above: Performed By: #### L 501.9520, L503.7505, L500.2500, L501.9310, L100.0100 ####[facility] [address] [place], [address] Potassium [Moles/Vol] 4.2 mmol/L Normal 3.3-5.1 [facility] Comment on above: Performed By: #### L 501.9520, L503.7505, L500.2500, L501.9310, L100.0100 ####[facility] [address] [place], [address] Sodium [Moles/Vol] 137 mmol/L Normal 133-145 [facility] Comment on above: Performed By: #### L 501.9520, L503.7505, L500.2500, L501.9310, L100.0100 ####[facility] [address] [place], [address] Urea nitrogen [Mass/Vol] 18 mg/dL Normal 4-19 [facility] Comment on above: Performed By: #### L 501.9520, L503.7505, L500.2500, L501.9310, L100.0100 ####[facility] [address] [place], [address] Basophil percentageOrdered B y: Jose Antonio Leandro on 03-12-2025 Basophils/100 WBC (Bld) 1.3 % High 0-1 [facility] CBC W/Diff, Automatedon 02-13 Absolute Lymph 1.63 X10 3/uL Normal 0.83-4.51 [facility] Comment on above: Performed By: #### L 501.9520, L503.7505, L500.2500, L501.9310, L100.0100 ####[facility] [address] [place], [address] Absolute Neut 4.5 X10 3/uL Normal 2.0-7.7 [facility] Comment on above: Performed By: #### L 501.9520, L503.7505, L500.2500, L501.9310, L100.0100 ####[facility] [address] [place], [address] Basophils/100 WBC (Bld) 1.3 % High 0-1 [facility] Comment on above: Performed By: #### L 501.9520, L503.7505, L500.2500, L501.9310, L100.0100 ####[facility] [address] [place], [address] Eosinophils/100 WBC (Bld) 3.8 % Normal 0-5 [facility] Comment on above: Performed By: #### L 501.9520, L503.7505, L500.2500, L501.9310, L100.0100 ####[facility] [address] [place], [address] Erythrocyte distribution width (RBC) [Ratio] 13.3 % Normal 11.6-14.6 [facility] Comment on above: Performed By: #### L 501.9520, L503.7505, L500.2500, L501.9310, L100.0100 ####[facility] [address] [place], [address] Hematocrit (Bld) [Volume fraction] 41.6 % Normal 37-47 [facility] Comment on above: Performed By: #### L 501.9520, L503.7505, L500.2500, L501.9310, L100.0100 ####[facility] [address] [place], [address] Hemoglobin (Bld) [Mass/Vol] 13.6 g/dL Normal 12.0-15.0 [facility] Comment on above: Performed By: #### L 501.9520, L503.7505, L500.2500, L501.9310, L100.0100 ####[facility] [address] [place], [address] IG% 0.400 Normal 0.0-0.9 [facility] Comment on above: Result Comment: IG% - Immature Granulocytes (promyelocytes, myelocytes and metamyelocytes) > 1% indicates that a LEFT SHIFT is Present. Performed By: #### L 501.9520, L503.7505, L500.2500, L501.9310, L100.0100 ####[facility] [address] [place], [address] Lymphocytes/100 WBC (Bld) 22.6 % Normal 19-41 [facility] Comment on above: Performed By: #### L 501.9520, L503.7505, L500.2500, L501.9310, L100.0100 ####[facility] [address] [place], [address] MCH (RBC) [Entitic mass] 30.1 pg Normal 27.0-32.0 [facility] Comment on above: Performed By: #### L 501.9520, L503.7505, L500.2500, L501.9310, L100.0100 ####[facility] [address] [place], [address] MCHC (RBC) [Mass/Vol] 32.7 g/dL Normal 32-36 [facility] Comment on above: Performed By: #### L 501.9520, L503.7505, L500.2500, L501.9310, L100.0100 ####[facility] [address] [place], [address] MCV (RBC) [Entitic vol] 92.0 fL Normal 81-99 [facility] Comment on above: Performed By: #### L 501.9520, L503.7505, L500.2500, L501.9310, L100.0100 ####[facility] [address] [place], [address] Monocytes/100 WBC (Bld) 10.0 % Normal 0-10 [facility] Comment on above: Performed By: #### L 501.9520, L503.7505, L500.2500, L501.9310, L100.0100 ####[facility] [address] [place], [address] Neutrophils/100 WBC (Bld) 61.9 % Normal 47-70 [facility] Comment on above: Performed By: #### L 501.9520, L503.7505, L500.2500, L501.9310, L100.0100 ####[facility] [address] [place], [address] Nucleated RBC (Bld) [#/Vol] 0 10*3/uL Normal 0-5 [facility] Comment on above: Performed By: #### L 501.9520, L503.7505, L500.2500, L501.9310, L100.0100 ####[facility] [address] [place], [address] Platelet mean volume (Bld) [Entitic vol] 9.5 fL Normal 6.2-12.0 [facility] Comment on above: Performed By: #### L 501.9520, L503.7505, L500.2500, L501.9310, L100.0100 ####[facility] [address] [place], [address] Platelets (Bld) [#/Vol] 424 10*3/uL Normal 150-450 [facility] Comment on above: Performed By: #### L 501.9520, L503.7505, L500.2500, L501.9310, L100.0100 ####[facility] [address] [place], [address] RBC (Bld) [#/Vol] 4.52 10*6/uL Normal 4.2-5.4 [facility] Comment on above: Performed By: #### L 501.9520, L503.7505, L500.2500, L501.9310, L100.0100 ####[facility] [address] [place], [address] RDW SD 45.1 fl High 35.1-43.9 [facility] Comment on above: Performed By: #### L 501.9520, L503.7505, L500.2500, L501.9310, L100.0100 ####[facility] [address] [place], [address] WBC (Bld) [#/Vol] 7.2 10*3/uL Normal 4.4-11.0 [facility] Comment on above: Performed By: #### L 501.9520, L503.7505, L500.2500, L501.9310, L100.0100 ####[facility] [address] [place], [address] Carbon dioxide, total [Moles /volume] in Central venous bloodOrdered By: Jose Antonio Leandro on 03-12-2025 CO2 [Moles/Vol] 24.9 mmol/L 21.0-32.0 [facility] Chloride assayOrdered By: Cy ril Leandro on 03-12-2025 Chloride [Moles/Vol] 100 mmol/L 98-108 [facility] Eosinophil percentageOrdered By: Jose Antonio Leandro on 03-12-2025 Eosinophils/100 WBC (Bld) 3.8 % 0-5 [facility] Erythrocyte distribution wid th ratioOrdered By: Tesuque Leandro on 03-12-2025 Erythrocyte distribution width (RBC) [Ratio] 13.3 % 11.6-14.6 [facility] Erythrocyte distribution wid th standard deviationOrdered By: Tesuque Leandro on 03-12-2025 Erythrocyte distribution width (RBC) [Ratio] 45.1 fl High 35.1-43.9 [facility] Glomerular filtration rate ( GFR) estimation/1.73 sq m using serum, plasma, or whole bOrdered By: Jose Antonio Reeves on 03-12-2025 GFR/1.73 sq M.predicted among non-blacks MDRD (S/P/Bld) [Vol rate/Area] 86 mL/min/{1.73_m2} >60 [facility] Comment on above: mL/min/1.73m2 CKD-EP I Creatinine Equation (2020) Hematocrit Auto (Bld) [Volum e fraction]Ordered By: Jose Antonio Reeves on 03-12-2025 Hematocrit (Bld) [Volume fraction] 41.6 % 37-47 [facility] Hemoglobin measurementOrdere d By: Jose Antonio Reeves on 03-12-2025 Hemoglobin (Bld) [Mass/Vol] 13.6 g/dL 12.0-15.0 [facility] Immature granulocytes/100 WB C Auto (Bld)Ordered By: Jose Antonio Reeves on 03-12-2025 Immature granulocytes/100 WBC (Bld) 0.400 % 0.0-0.9 [facility] Comment on above: IG% - Immature Granu locytes (promyelocytes, myelocytes and metamyelocytes) > 1% indicates that a LEFT SHIFT is Present. L503.7505on 03-12-2025 Natriuretic peptide B (Bld) [Mass/Vol] 916 pg/mL High <=900 [facility] Comment on above: Result Comment: Hear t Failure Unlikely: < 300 pg/mL Heart Failure Likely < 50 Years: > 450 pg/mL 50-75 Years: > 900 pg/mL >75 Years: > 1800 pg/mL Performed By: #### L 501.9520, L503.7505, L500.2500, L501.9310, L100.0100 ####[facility] [address] [place], [place], [id number] MCV (mean corpuscular volume ) determinationOrdered By: Jose Antonio Reeves on 03-12-2025 MCV (RBC) [Entitic vol] 92.0 fL 81-99 [facility] Mean corpuscular hemoglobin (MCH) determinationOrdered By: Tesuque Leandro on 03-12-2025 MCH (RBC) [Entitic mass] 30.1 pg 27.0-32.0 [facility] Mean corpuscular hemoglobin concentration (MCHC) determinationOrdered By: Jose Antonio Leandro on 03-12-2025 MCHC (RBC) [Mass/Vol] 32.7 g/dL 32-36 [facility] Mean platelet volume determi nationOrdered By: Tesuque Leandro on 03-12-2025 Platelet mean volume (Bld) [Entitic vol] 9.5 fL 6.2-12.0 [facility] Monocyte percentageOrdered B y: Tesuque Leandro on 03-12-2025 Monocytes/100 WBC (Bld) 10.0 % 0-10 [facility] Natriuretic peptide.B prohor clive N-Terminal [Mass/volume] in Serum or PlasmaOrdered By: Tesuque Leandro on 03-12-2025 Natriuretic peptide.B prohormone N-Terminal [Mass/Vol] 916 pg/mL High <900 [facility] Comment on above: Heart Failure Unlike ly: < 300 pg/mLHeart Failure Likely< 50 Years: > 450 pg/mL50-75 Years: > 900 pg/mL>75 Years: > 1800 pg/mL Neutrophil percentageOrdered By: Jose Antonio Leandro on 03-12-2025 Neutrophils/100 WBC (Bld) 61.9 % 47-70 [facility] Nucleated red blood cell per centageOrdered By: Jose Antonio Leandro on 03-12-2025 Nucleated RBC/100 WBC (Bld) [Ratio] 0 % 0-5 [facility] Platelet countOrdered By: Cy ril Leandro on 03-12-2025 Platelets (Bld) [#/Vol] 424 10*3/uL 150-450 [facility] Potassium measurement (mass/ volume)Ordered By: Tesuque Leandro on 03-12-2025 Potassium (Unsp spec) [Mass/Vol] 4.2 mmol/L 3.3-5.1 [facility] RBC Auto (Bld) [#/Vol]Ordere d By: Tesuque Leandro on 03-12-2025 RBC (Bld) [#/Vol] 4.52 10*6/uL 4.2-5.4 [facility] Serum creatinine measurement (mass/volume)Ordered By: Jose Antonio Leandro on 03-12-2025 Creatinine [Mass/Vol] 0.78 mg/dL 0.70-1.20 [facility] Serum glucose measurement (m ass/volume)Ordered By: Jose Antonio Leandro on 03-12-2025 Glucose [Mass/Vol] 90 mg/dL 70-99 [facility] Serum or plasma calcium virgie urement (mass/volume)Ordered By: Tesuque Leandro on 03-12-2025 Calcium [Mass/Vol] 10.0 mg/dL 7.6-11.0 [facility] Serum or plasma urea nitroge n measurement (mass/volume)Ordered By: Jose Antonio Leandro on 03-12-2025 Urea nitrogen [Mass/Vol] 18 mg/dL 4-19 [facility] Sodium levelOrdered By: Jenna booth Leandro on 03-12-2025 Sodium [Moles/Vol] 137 mmol/L 133-145 [facility] T4 Total, Thyroxinon 025 T4 [Mass/Vol] 6.6 ug/dL Normal 4.8-13.9 [facility] Comment on above: Performed By: #### L 501.9520, L503.7505, L500.2500, L501.9310, L100.0100 ####[facility] [address] [place], [place], [id number] TSH DL <= 0.005 mIU/L QnOrde red By: Jose Antonio Leandro on 03-12-2025 TSH Qn 1.950 uIU/mL 0.300-4.200 [facility] Thyroid Stim Hormone (TSH)on 03-12-2025 TSH 1.950 uIU/mL Normal 0.300-4.200 [facility] Comment on above: Performed By: #### L 501.9520, L503.7505, L500.2500, L501.9310, L100.0100 ####[facility] [address] [place], [place], [address] ThyroxineOrdered By: Jose Antonio guido on 03-12-2025 T4 [Mass/Vol] 6.6 ug/dL 4.8-13.9 [facility] White blood cell (WBC) count Ordered By: Jose Antonio Reeves on 03-12-2025 WBC (Bld) [#/Vol] 7.2 10*3/uL 4.4-11.0 [facility] Cardiology Visit Reporton Cardiology Visit Report [facility] [address] [place] [address] OFFICE VISIT Date of Service: 01/06/25 MR#: [id number] Acct: [id number] Name: VISHAL GEORGE Rep #: [id number] : 1960 Provider: PHONG rome Age/Sex: 64/F Location: [facility] Status: Signed with Addenda ADDENDUM by PHONG Castro on 01/06/25 at 1636 Assessment and Plan Assessment and Plan (1) Ischemic cardiomyopathy: Status: Acute Plan: Ischemic cardiomyopathy: Echocardiogram 10/08/2023-EF: 45% Twelve-lead EC04/24/2023-normal sinus rhythm at 80 bpm and QRS 100 [place] Functional Class: 1 ACC/AHA stage: [...] updated, as necessary. Follow Up: 6 Months (GRIZZLYMAN/PA) 12-15 Months (DIGITAL CONTENT MANAGER) 01/06/25 1636 Date Austen Castro NP GRIZZLYMAN-C cc: GRIZZLYMANHenrry Griffin * Signed HPI HPI History of Present Illness Details: VISHAL GEORGE, is a 64 F who presents to the office today for a cardiovascular follow-up visit. Patient presented to [facility] for severe nausea and vomiting. Patient was [...] V. tach/wide-complex tachycardia. She was transferred to [facility] for ICD evaluation. 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 Normal [facility] 12-21-2024 [facility] Telephone (OBRoomle GmbHWM) VISHAL GEORGE ([id number]) 1960 F Date Time Provider Department 12/21/24 [...] 12/21/2024 Noted Resolved Coronary artery disease involving [place] howard*09/10/2012 Unspecified essential hypertension [I10] 09/10/2012 08/29/2016 [...] Status:Closed by DINAH SINGH on 12/21/24 Normal [facility] Albumin to globulin ratioOrd ered By: Ricki Griffin on 12-07-2024 Albumin/Globulin [Mass ratio] 1.1 {ratio} 0.9-2.4 [facility] Bilirubin, totalOrdered By: Ricki Griffin on 12-07-2024 Bilirubin [Mass/Vol] 0.20 mg/dL 0.20-1.00 [facility] Comment on above: For patients on eltr ombopag therapy, use of Dimension Mercedes TBIL is not recommended. Blood urea nitrogen (BUN)/cr eatinine ratioOrdered By: Ricki Griffin on 12-07-2024 Urea nitrogen/Creatinine [Mass ratio] 25.3 mg/mg High 10-20 [facility] Carbon dioxide measurementOr dered By: Ricki Griffin on 12-07-2024 CO2 [Moles/Vol] 27.0 mmol/L 21.0-32.0 [facility] Chloride measurementOrdered By: Ricki Griffin on 12-07-2024 Chloride [Moles/Vol] 105 mmol/L 98-107 [facility] Comprehensive Metabolic Prof ilon 12-07-2024 Albumin [Mass/Vol] 3.6 g/dL Normal 3.2-5.0 [facility] Comment on above: Performed By: #### L 500.4100, L501.9985, L500.4050, L502.0250, L506.1000 #### [facility] [address] [place], [address] Albumin/Globulin [Mass ratio] 1.1 {ratio} Normal 0.9-2.4 [facility] Comment on above: Performed By: #### L 500.4100, L501.9985, L500.4050, L502.0250, L506.1000 #### [facility] [address] [place], [address] ALK P 72 U/L Normal 45-117 [facility] Comment on above: Performed By: #### L 500.4100, L501.9985, L500.4050, L502.0250, L506.1000 #### [facility] [address] [place], [address] ALT [Catalytic activity/Vol] 23 U/L Normal 13-56 [facility] Comment on above: Performed By: #### L 500.4100, L501.9985, L500.4050, L502.0250, L506.1000 #### [facility] [address] [place], [address] AST [Catalytic activity/Vol] 17 U/L Normal 15-37 [facility] Comment on above: Performed By: #### L 500.4100, L501.9985, L500.4050, L502.0250, L506.1000 #### [facility] [address] [place], [address] Bilirubin [Mass/Vol] 0.20 mg/dL Normal 0.20-1.00 [facility] Comment on above: Result Comment: For patients on eltrombopag therapy, use of Dimension Mercedes TBIL is not recommended. Performed By: #### L 500.4100, L501.9985, L500.4050, L502.0250, L506.1000 #### [facility] [address] [place], [address] BUN/CRE 25.3 RATIO High 10-20 [facility] Comment on above: Performed By: #### L 500.4100, L501.9985, L500.4050, L502.0250, L506.1000 #### [facility] [address] [place], [address] CA,Total 9.2 mg/dL Normal 8.5-10.1 [facility] Comment on above: Performed By: #### L 500.4100, L501.9985, L500.4050, L502.0250, L506.1000 #### [facility] [address] [place], [address] Chloride [Moles/Vol] 105 mmol/L Normal 98-107 [facility] Comment on above: Performed By: #### L 500.4100, L501.9985, L500.4050, L502.0250, L506.1000 #### [facility] [address] [place], [address] CO2 [Moles/Vol] 27.0 mmol/L Normal 21.0-32.0 [facility] Comment on above: Performed By: #### L 500.4100, L501.9985, L500.4050, L502.0250, L506.1000 #### [facility] [address] [place], [address] Creatinine [Mass/Vol] 0.71 mg/dL Normal 0.55-1.02 [facility] Comment on above: Result Comment: The validity of the calculated GFR GFRAA in patients over 70 years has not been determined. Clinical correlation is essential. Performed By: #### L 500.4100, L501.9985, L500.4050, L502.0250, L506.1000 #### [facility] [address] [place], [address] EST GFR - AA 107 mL/min Normal >60 [facility] Comment on above: Result Comment: Afri can Tongan GFR Calc Performed By: #### L 500.4100, L501.9985, L500.4050, L502.0250, L506.1000 #### [facility] [address] [place], [address] GAP 7 Normal 5-15 [facility] Comment on above: Performed By: #### L 500.4100, L501.9985, L500.4050, L502.0250, L506.1000 #### [facility] [address] [place], [address] GFR/1.73 sq M.predicted among non-blacks MDRD (S/P/Bld) [Vol rate/Area] 88 mL/min/{1.73_m2} Normal >60 [facility] Comment on above: Result Comment: Non- GFR Calc Performed By: #### L 500.4100, L501.9985, L500.4050, L502.0250, L506.1000 #### [facility] [address] [place], [address] Globulin (S) [Mass/Vol] 3.3 g/dL Normal 2.2-4.2 [facility] Comment on above: Performed By: #### L 500.4100, L501.9985, L500.4050, L502.0250, L506.1000 #### [facility] [address] [place], [address] Glucose [Mass/Vol] 105 mg/dL Normal 74-106 [facility] Comment on above: Result Comment: Fast ing Glucose result from 100 to 125 mg/dL suggests IMPAIRED HOMEOSTASIS per A.D.A. criteria. Performed By: #### L 500.4100, L501.9985, L500.4050, L502.0250, L506.1000 #### [facility] [address] [place], [address] Potassium [Moles/Vol] 4.2 mmol/L Normal 3.5-5.1 [facility] Comment on above: Performed By: #### L 500.4100, L501.9985, L500.4050, L502.0250, L506.1000 #### [facility] [address] [place], [address] Sodium [Moles/Vol] 139 mmol/L Normal 136-145 [facility] Comment on above: Performed By: #### L 500.4100, L501.9985, L500.4050, L502.0250, L506.1000 #### [facility] [address] [place], [address] T PROT 6.9 g/dL Normal 6.4-8.2 [facility] Comment on above: Performed By: #### L 500.4100, L501.9985, L500.4050, L502.0250, L506.1000 #### [facility] [address] [place], [address] Urea nitrogen [Mass/Vol] 18 mg/dL Normal 7-18 [facility] Comment on above: Performed By: #### L 500.4100, L501.9985, L500.4050, L502.0250, L506.1000 #### [facility] [address] [place], [address] Glomerular filtration rate ( GFR) estimationOrdered By: Ricki Griffin on 12-07-2024 GFR/1.73 sq M.predicted among non-blacks MDRD (S/P/Bld) [Vol rate/Area] 88 mL/min/{1.73_m2} >60 [facility] Comment on above: Non- GFR Calc Glucose measurementOrdered B y: Ricki Griffin on 12-07-2024 Glucose [Mass/Vol] 105 mg/dL 74-106 [facility] Comment on above: Fasting Glucose resu lt from 100 to 125 mg/dL suggests IMPAIRED HOMEOSTASIS per A.D.A. criteria. Hemoglobin A1con 12-07-2024 HbA1c (Bld) [Mass fraction] 5.4 % Normal 3.8-5.6 [facility] Comment on above: Result Comment: Norm al < 5.7 % Prediabetic 5.7 - 6.4 % Diabetic >or= 6.5 % Please note range changes. Performed By: #### L 500.4100, L501.9985, L500.4050, L502.0250, L506.1000 #### [facility] [address] [place], [address] Hemoglobin A1c percentageOrd ered By: Ricki Griffin on 12-07-2024 HbA1c (Bld) [Mass fraction] 5.4 % 3.8-5.6 [facility] Comment on above: Normal < 5.7 % Predi abetic 5.7 - 6.4 % Diabetic >or= 6.5 % Please note range changes. High density lipoprotein (HD L) measurementOrdered By: Ricki Griffin on 12-07-2024 Cholesterol in HDL [Mass/Vol] 50 mg/dL >40 [facility] Comment on above: The drugs N-Acetylcy steine and Metamizole may falsely depress this assay. Reference Range HDL <40 mg/dL Low HDL Cholesterol HDL >or= 60 mg/dL High HDL Cholesterol Laboratory - Chemistry and C hemistry - challengeOrdered By: Ricki Griffin on 12-07-2024 AST [Catalytic activity/Vol] 17 U/L 15-37 [facility] Lipid Profileon 12-07-2024 Cholesterol [Mass/Vol] 172 mg/dL Normal 200 [facility] Comment on above: Result Comment: <200 mg/dL Desirable 200-240 mg/dL Borderline >240 mg/dL High Risk Performed By: #### L 500.4100, L501.9985, L500.4050, L502.0250, L506.1000 #### [facility] [address] [place], [address] Cholesterol in HDL [Mass/Vol] 50 mg/dL Normal [facility] Comment on above: Result Comment: The drugs N-Acetylcysteine and Metamizole may falsely depress this assay. Reference Range HDL <40 mg/dL Low HDL Cholesterol HDL >or= 60 mg/dL High HDL Cholesterol Performed By: #### L 500.4100, L501.9985, L500.4050, L502.0250, L506.1000 #### [facility] [address] [place], [address] Cholesterol in LDL [Mass/Vol] 105 mg/dL Normal 0-130 [facility] Comment on above: Performed By: #### L 500.4100, L501.9985, L500.4050, L502.0250, L506.1000 #### [facility] [address] [place], [address] Cholesterol in VLDL [Mass/Vol] 17 mg/dL Normal 5-40 [facility] Comment on above: Performed By: #### L 500.4100, L501.9985, L500.4050, L502.0250, L506.1000 #### [facility] [address] [place], [address] Triglyceride [Mass/Vol] 83 mg/dL Normal [facility] Comment on above: Result Comment: The drugs N-Acetylcysteine and Metamizole may falsely depress this assay. Serum Triglycerides Reference Interval Normal <150 mg/dL Borderline high 150 - 199 mg/dL High 200 - 499 mg/dL Very High > or = 500 mg/dL Performed By: #### L 500.4100, L501.9985, L500.4050, L502.0250, L506.1000 #### [facility] [address] [place], [address] Low density lipoprotein (LDL ) cholesterol measurementOrdered By: Ricki Griffin on 12-07-2024 Cholesterol in LDL [Mass/Vol] 105 mg/dL 0-130 [facility] Microalb:Creat Ratio,Random URon 12-07-2024 Creatinine [Mass/Vol] 58.70 mg/dL Normal NO RAN GE EST. [facility] Comment on above: Performed By: #### L 500.4100, L501.9985, L500.4050, L502.0250, L506.1000 #### [facility] [address] [place], [address] MALB:CRE 9.7 mg/g CRE Normal <30 mg/g CRE [facility] Comment on above: Performed By: #### L 500.4100, L501.9985, L500.4050, L502.0250, L506.1000 #### [facility] [address] [place], [address] MICROALBUMIN,UR 5.7 mg/L Normal NO RANGE EST. [facility] Comment on above: Performed By: #### L 500.4100, L501.9985, L500.4050, L502.0250, L506.1000 #### [facility] [address] [place], [address] Potassium measurementOrdered By: Ricki Griffin on 12-07-2024 Potassium [Moles/Vol] 4.2 mmol/L 3.5-5.1 [facility] Serum anion gap measurementO rdered By: Ricki Griffin on 12-07-2024 Anion gap [Moles/Vol] 7 mmol/L 5-15 [facility] Serum globulin measurementOr dered By: Ricki Griffin on 12-07-2024 Globulin (S) [Mass/Vol] 3.3 g/dL 2.2-4.2 [facility] Serum or plasma alanine herrera otransferase (ALT) measurementOrdered By: Ricki Griffin on 12-07-2024 ALT [Catalytic activity/Vol] 23 U/L 13-56 [facility] Serum or plasma albumin ivrgie urement (mass/volume)Ordered By: Ricki Griffin on 12-07-2024 Albumin [Mass/Vol] 3.6 g/dL 3.2-5.0 [facility] Serum or plasma alkaline sherri sphatase measurementOrdered By: Ricki Griffin on 12-07-2024 ALP [Catalytic activity/Vol] 72 U/L 45-117 [facility] Serum or plasma calcium virgie urement (mass/volume)Ordered By: Ricki Griffin on 12-07-2024 Calcium [Mass/Vol] 9.2 mg/dL 8.5-10.1 [facility] Serum or plasma cholesterol measurement (mass/volume)Ordered By: Ricki Griffin on 12-07-2024 Cholesterol [Mass/Vol] 172 mg/dL <200 [facility] Comment on above: <200 mg/dL Desirable 200-240 mg/dL Borderline >240 mg/dL High Risk Serum or plasma creatinine m easurement (mass/volume)Ordered By: Ricki Griffin on 12-07-2024 Creatinine [Mass/Vol] 0.71 mg/dL 0.55-1.02 [facility] Comment on above: The validity of the calculated GFR & GFRAA in patients over 70 years has not been determined. Clinical correlation is essential. Serum or plasma urea nitroge n measurement (mass/volume)Ordered By: Ricki Griffin on 12-07-2024 Urea nitrogen [Mass/Vol] 18 mg/dL 7-18 [facility] Sodium levelOrdered By: Froylan Griffin on 12-07-2024 Sodium [Moles/Vol] 139 mmol/L 136-145 [facility] Total proteinOrdered By: Godfrey Griffin on 12-07-2024 Protein [Mass/Vol] 6.9 g/dL 6.4-8.2 [facility] Triglycerides measurementOrd ered By: Ricki Griffin on 12-07-2024 Triglyceride [Mass/Vol] 83 mg/dL <199 [facility] Comment on above: The drugs N-Acetylcy steine and Metamizole may falsely depress this assay.Serum Triglycerides Reference Interval Normal <150 mg/dL Borderline high 150 - 199 mg/dL High 200 - 499 mg/dL Very High > or = 500 mg/dL Urine creatinine measurement (mass/volume)Ordered By: Ricki Griffin on 12-07-2024 Creatinine (U) [Mass/Vol] 58.70 mg/dL NO RANGE EST. [facility] Very low density lipoprotein (VLDL) cholesterol measurementOrdered By: Ricki Griffin on 12-07-2024 Very low density lipoprotein (VLDL) cholesterol measurement 17 mg/dL 5-40 [facility] Vitamin D,25 Hydroxyon 12-07 Vitamin D 25-OH 61.9 ng/mL Normal [facility] Comment on above: Result Comment: Stephanie min D 25(OH) Status Range Deficiency <20 ng/mL (50nmol/L) Insufficiency 20 - 30 ng/mL (50 - 75 nmol/L) Sufficiency 30 - 100 ng/mL (75 - 250 nmol/L) Toxicity >100 ng/mL (>250 nmol/L) Performed By: #### L 500.4100, L501.9985, L500.4050, L502.0250, L506.1000 #### [facility] [address] [place], [address] BD DXA - AXIAL SKELETONon BD DXA - AXIAL SKELETON * * *Final Repor t* * * DATE OF EXAM: Nov 19 2024 3:47PM [facility] 0804 - DXA - AXIAL SKELETON / PROCEDURE REASON: multiple diagnoses * * * * Physician Interpretation * * * * EXAMINATION: DXA BONE DENSITOMETRY BD DXA - AXIAL SKELETON, BD DXA TRABECLR BONE SCORE (TBS) PATIENT DEMOGRAPHICS: Age: 64 years, Gender: Female SCANNER INFORMATION: DXA Model: MuteButton - Paktor C [id number] Date Scanned: 11/19/2024 3:47 PM CLINICAL HISTORY: [...] had a previous bone density in the [facility] or the previous bone density was performed on a different DXA machine (new, updated model or different location) within the [facility]. VERTEBRAL FRACTURE ASSESSMENT Not performed. TRABECULAR BONE [...] FOR MORE INFORMATION ABOUT DIAGNOSIS AND TREATMENT: [facility] for Osteoporosis and Metabolic Bone Disease:? www.ccf.org/arthpiotr s/osteo National Osteoporosis Foundation:? www.nof.org International Society of Clinical Densitometry www.iscd.org Wire Coater: HERNANDO Transcribe Date/Time: Nov 23 2024 6:04A Dictated by : MIRIAM KUMARI MD This examination was interpreted and the report reviewed and electronically signed by: MIRIAM KUMARI MD on Nov 23 2024 6:06AM EST [id number] CN -1.5 Normal [facility] BD DXA TRABECLR BONE SCORE ( TBS)on 11-19-2024 BD DXA TRABECLR BONE SCORE (TBS) * * *Final Report* * * DATE OF EXAM: Nov 19 2024 3:47PM [facility] 0801 - BD DXA TRABECLR BONE SCORE (TBS) / PROCEDURE REASON: multiple diagnoses * * * * Physician Interpretation * * * * EXAMINATION: DXA BONE DENSITOMETRY BD DXA - AXIAL SKELETON, BD DXA TRABECLR BONE SCORE (TBS) PATIENT DEMOGRAPHICS: Age: 64 years, Gender: Female SCANNER INFORMATION: DXA Model: MuteButton - [employer] Discovery C [id number] Date Scanned: 11/19/2024 3:47 PM CLINICAL HISTORY: [...] had a previous bone density in the [facility] or the previous bone density was performed on a different DXA machine (new, updated model or different location) within the [facility]. VERTEBRAL FRACTURE ASSESSMENT Not performed. TRABECULAR BONE [...] FOR MORE INFORMATION ABOUT DIAGNOSIS AND TREATMENT: [facility] Osteoporosis and Metabolic Bone Disease:? www.ccf.org/liban s/osteo National Osteoporosis Foundation:? www.nof.org International Society of Clinical Densitometry www.iscd.org Wire Coater: HERNANDO Transcribe Date/Time: Nov 23 2024 6:04A Dictated by : MIRIAM KUMARI MD This examination was interpreted and the report reviewed and electronically signed by: MIRIAM KUMARI MD on Nov 23 2024 6:06AM EST [id number] CN -1.5 Normal [facility] CNOVon 09-21-2024 CNOV Office Visit (OBGYWM) VISHAL GEORGE ([id number]) 1960 F Date Time Provider Department 09/21/24 3:30 PM ARACELIS MCCORMICK OBGYWM During your visit today, we recorded the following information about you: Blood pressure Weight Height 140/78 78.5 kg 1.562 m Aracelis Mccormick MD 09/21/2024 3:54 PM Signed Duster Tender offered: Patient declines. 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 As applicable, any other physician, advance practice provider, medical student, or other health professional student that will be observing or involved in the sensitive examination for educational or training purposes was discussed with the Patient or Authorized Supervisor Dials. The Patient or Authorized Supervisor Dials has agreed to proceed with the sensitive [...] external genitalia normal, normal Bartholin's glands, urethra, [place]'s glands, no vulvar lesions, no cervical lesions, good vaginal support, physiologic discharge present, normal appearing perineal body and perianal region BIMANUAL: uterus normal size, shape and consistency, no adnexal masses, and non-tender RECTOVAGINAL: deferred. NEURO: alert and o (more content not included)... Normal [facility] HIGH RISK HUMAN PAPILLOMA ASHANTI (HPV), PCR FOR DETECTION AND GENOTYPINGon 09-21-2024 HPV 16 Ag Ql (Unsp spec) Not detected Normal Not detected [facility] Comment on above: Order Comment: Speci men Type: FLUID SPECIMEN Ordering Facility: [facility] Address: [address] [place] [address] Performed By: #### H PVHRT #### [facility] CLIA [id number] [address] [place] [address] [place] HPV 18 Ag Ql (Unsp spec) Not detected Normal Not detected [facility] Comment on above: Order Comment: Speci men Type: FLUID SPECIMEN Ordering Facility: [facility] Address: [address] [place] [address] Performed By: #### H PVHRT #### [facility] CLIA [id number] [address] [place] [address] [place] HPV 31+33+35+39+45+51+52+56+58 +59+66+68 DNA FERCHO+probe Ql (Cvx) Not detected Normal Not detected [facility] Comment on above: Order Comment: Speci men Type: FLUID SPECIMEN Ordering Facility: [facility] Address: [address] [place] [address] Result Comment: High Risk HPV Other Type includes HPV types 31, 33, 35, 39, 45, 51, 52, 56, 58, 59, 66 and 68. Performed By: #### H PVHRT #### [facility] CLIA [id number] [address] [place] [address] [place] PAP TESTon 09-21-2024 ADEQUACY Satisfactory for interpretation. Normal [facility] Comment on above: Order Comment: Speci men Type: FLUID SPECIMEN Ordering Facility: [facility] Address: [address] [place] [address] Performed By: #### L [id number] #### [facility] CLIA [id number] [address] [place] [address] [place] CASE REPORT Normal [facility] Comment on above: Order Comment: Speci men Type: FLUID SPECIMEN Ordering Facility: [facility] Address: [address] [place] [address] Result Comment: Gyne cologic Cytology Report Case: [id number] Authorizing Provider: Aracelis Mccormick, Collected: 09/21/2024 03:58 PM MD Ordering Location: OB/Gynecology Received: 09/21/2024 04:31 PM First Screen: Shira Roque, JESÚS, ASCP Specimen: Pap Test, ThinPrep, Cervix Performed By: #### L [id number] #### [facility] CLIA [id number] [address] [place] [address] [place] CLINICAL HISTORY, CYTOLOGY, FRAUD ANALYST Post Menopausal Normal [facility] Comment on above: Order Comment: Speci men Type: FLUID SPECIMEN Ordering Facility: [facility] Address: [address] [place] [address] Performed By: #### L [id number] #### [facility] CLIA [id number] [address] [place] [address] [place] CYTOLOGY PAP OTHER INTERPRETATION Atrophic specimen. Normal [facility] Comment on above: Order Comment: Speci men Type: FLUID SPECIMEN Ordering Facility: [facility] Address: [address] [place] [address] Performed By: #### L [id number] #### [facility] CLIA [id number] [address] [place] [address] [place] FINAL PERFORMING LAB Normal [facility] Comment on above: Order Comment: Speci men Type: FLUID SPECIMEN Ordering Facility: [facility] Address: [address] [place] [address] Result Comment: Tech nical component, front end specialist screening performed at [place] [facility], [address] [place], [place] [address] CLIA# [id number] Diagnostic interpretation performed at [facility], [address] [place], [place] [address] CLIA# [id number] Passenger Service Manager: Bart Madsen M.D. Performed By: #### L [id number] #### [facility] CLIA [id number] [address] [place] [address] [place] INTERPRETATION, CYTOLOGY, FRAUD ANALYST Normal [facility] Comment on above: Order Comment: Speci men Type: FLUID SPECIMEN Ordering Facility: [facility] Address: [address] [place] [address] Result Comment: Nega tive for intraepithelial lesion or malignancy. Performed By: #### L [id number] #### [facility] CLIA [id number] [address] [place] [address] [place] PAP DISCLAIMER COMMENT The Pap Smear is a screening test for cervical cancer. False negative results occur with all screening tests, emphasizing the need for rescreening at recommended intervals, and clinical correlation. Normal [facility] Comment on above: Order Comment: Speci men Type: FLUID SPECIMEN Ordering Facility: [facility] Address: [address] [place] [address] Performed By: #### L [id number] #### [facility] CLIA [id number] [address] [place], [place] [address] [place] PAP SCORER HELPER COMMENT This specimen has been analyzed by the ThinPrep Imaging System, an automated imaging and review system, which assists the laboratory in evaluating cells on ThinPrep Pap tests. Following automated imaging, selected bautista from every slide are reviewed by a front end specialist. Normal [facility] Comment on above: Order Comment: Speci men Type: FLUID SPECIMEN Ordering Facility: [facility] Address: [address] [place] [address] Performed By: #### L [id number] #### [facility] CLIA [id number] [address] [place] [address] [place] [address] [place] DBT Breast - [...] Ya Lanza M.D. Electronically signed on: 09/16/2024 Wire Coater: PRIYANKA Transcribe Date/Time: Sep 16 2024 7:47A Dictated by: ZULMA LUCERO DO This examination was interpreted and the report reviewed and electronically signed by: YA LANZA MD on Sep 16 2024 11:18AM [facility] DIVISION OF RADIOLOGY * * *Final Report* * * DATE OF EXAM: Sep 16 2024 8:00AM [facility] 0582 - JON SCREENING W JOSHUA / PROCEDURE REASON: Encounter for screening mammogram for malignant neoplasm of breast * * * * Physician Interpretation * * * * RESULT: [facility] [address] [place] [address] #[id number] - JON SCREENING W JOSHUA HISTORY: Patient [...] the prior study. DIVISION OF RADIOLOGY Provider, [facility] Thayne - 09/16/2024 * * *Final Report* * * DATE OF EXAM: Sep 16 2024 8:00AM [facility] 0582 - [facility] SCREENING W JOSHUA / PROCEDURE REASON: Encounter for screening mammogram for malignant neoplasm of breast * * * * Physician Interpretation * * * * RESULT: [place] [address] #[id number] - [facility] SCREENING W JOSHUA HISTORY: Patient is 64 [...] Ya Lanza M.D. Electronically signed on: 09/16/2024 Wire Coater: PRIYANKA Transcrinataliia Date/Time: Sep 16 2024 7:47A Dictated by: ZULMA LUCERO DO This examination was interpreted and the report reviewed and electronically signed by: YA LANZA MD on Sep 16 2024 11:18AM EST [facility] Radiology Study [facility]ative[facility] DBT Breast - bilateral scree ningOrdered By: Ccf Provider on 09-16-2024 [facility] JON SCREENING W TOMOon 09-16 JON SCREENING W JOSHUA * * *Final Report* * * DATE OF EXAM: Sep 16 2024 8:00AM [facility] 0582 - JON SCREENING W JOSHUA / PROCEDURE REASON: Encounter for screening mammogram for malignant neoplasm of breast * * * * Physician Interpretation * * * * RESULT: [facility] [place] [address] #[id number] - JON SCREENING W JOSHUA HISTORY: Patient [...] Ya Lanza M.D. Electronically signed on: 09/16/2024 Wire Coater: PRIYANKA Transcribe Date/Time: Sep 16 2024 7:47A Dictated by: ZULMA LUCERO DO This examination was interpreted and the report reviewed and electronically signed by: YA LANZA MD on Sep 16 2024 11:18AM EST [id number] Normal [facility] Cardiology Visit Reporton Cardiology Visit Report [facility] [address] [place] [address] OFFICE VISIT Date of Service: 06/23/24 MR#: [id number] Acct: [id number] Name: VISHAL GEORGE Rep #: [id number] : 1960 Provider: PHONG gunderson Age/Sex: 64/F Location: [facility] Status: Signed HPI [facility] History of Present Illness Details: VISHAL GEORGE, is a 64 F who presents to the office today for a cardiovascular follow-up visit. Patient presented to [facility] for severe nausea and vomiting. Patient was [...] V. tach/wide-complex tachycardia. She was transferred to [facility] for ICD evaluation. 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 Normal [facility] Comprehensive Metabolic Prof ilon 06-02-2024 Albumin [Mass/Vol] 3.8 g/dL Normal 3.2-5.0 [facility] Comment on above: Performed By: #### L 500.4100, L502.0250, L501.9985, L506.1000, L500.4050 #### [facility] Laboratory [address] [place], [address] Albumin/Globulin [Mass ratio] 1.2 {ratio} Normal 0.9-2.4 [facility] Comment on above: Performed By: #### L 500.4100, L502.0250, L501.9985, L506.1000, L500.4050 #### [facility] [address] [place], [address] ALK P 70 U/L Normal 45-117 [facility] Comment on above: Performed By: #### L 500.4100, L502.0250, L501.9985, L506.1000, L500.4050 #### [facility] [address] [place], [address] ALT [Catalytic activity/Vol] 26 U/L Normal 13-56 [facility] Comment on above: Performed By: #### L 500.4100, L502.0250, L501.9985, L506.1000, L500.4050 #### [facility] [address] [place], [address] AST [Catalytic activity/Vol] 16 U/L Normal 15-37 [facility] Comment on above: Performed By: #### L 500.4100, L502.0250, L501.9985, L506.1000, L500.4050 #### [facility] [address] [place], [address] Bilirubin [Mass/Vol] 0.40 mg/dL Normal 0.20-1.00 [facility] Comment on above: Result Comment: For patients on eltrombopag therapy, use of Dimension Mercedes TBIL is not recommended. Performed By: #### L 500.4100, L502.0250, L501.9985, L506.1000, L500.4050 #### [facility] [address] [place], [address] BUN/CRE 22.8 RATIO High 10-20 [facility] Comment on above: Performed By: #### L 500.4100, L502.0250, L501.9985, L506.1000, L500.4050 #### [facility] [address] [place], [address] CA,Total 8.9 mg/dL Normal 8.5-10.1 [facility] Comment on above: Performed By: #### L 500.4100, L502.0250, L501.9985, L506.1000, L500.4050 #### [facility] [address] [place], [address] Chloride [Moles/Vol] 109 mmol/L High 98-107 [facility] Comment on above: Performed By: #### L 500.4100, L502.0250, L501.9985, L506.1000, L500.4050 #### [facility] [address] [place], [address] CO2 [Moles/Vol] 29.0 mmol/L Normal 21.0-32.0 [facility] Comment on above: Performed By: #### L 500.4100, L502.0250, L501.9985, L506.1000, L500.4050 #### [facility] [address] [place], [address] Creatinine [Mass/Vol] 0.79 mg/dL Normal 0.55-1.02 [facility] Comment on above: Result Comment: The validity of the calculated GFR GFRAA in patients over 70 years has not been determined. Clinical correlation is essential. Performed By: #### L 500.4100, L502.0250, L501.9985, L506.1000, L500.4050 #### [facility] [address] [place], [address] EST GFR - AA 95 mL/min Normal >60 [facility] Comment on above: Result Comment: Afri can Tongan GFR Calc Performed By: #### L 500.4100, L502.0250, L501.9985, L506.1000, L500.4050 #### [facility] [address] [place], [address] GAP 4 Low 5-15 [facility] Comment on above: Performed By: #### L 500.4100, L502.0250, L501.9985, L506.1000, L500.4050 #### [facility] [address] [place], [address] GFR/1.73 sq M.predicted among non-blacks MDRD (S/P/Bld) [Vol rate/Area] 79 mL/min/{1.73_m2} Normal >60 [facility] Comment on above: Result Comment: Non- GFR Calc Performed By: #### L 500.4100, L502.0250, L501.9985, L506.1000, L500.4050 #### [facility] [address] [place], [address] Globulin (S) [Mass/Vol] 3.2 g/dL Normal 2.2-4.2 [facility] Comment on above: Performed By: #### L 500.4100, L502.0250, L501.9985, L506.1000, L500.4050 #### [facility] [address] [place], [address] Glucose [Mass/Vol] 108 mg/dL High 74-106 [facility] Comment on above: Result Comment: Fast ing Glucose result from 100 to 125 mg/dL suggests IMPAIRED HOMEOSTASIS per A.D.A. criteria. Performed By: #### L 500.4100, L502.0250, L501.9985, L506.1000, L500.4050 #### [facility] [address] [place], [address] Potassium [Moles/Vol] 3.7 mmol/L Normal 3.5-5.1 [facility] Comment on above: Performed By: #### L 500.4100, L502.0250, L501.9985, L506.1000, L500.4050 #### [facility] [address] [place], [address] Sodium [Moles/Vol] 142 mmol/L Normal 136-145 [facility] Comment on above: Performed By: #### L 500.4100, L502.0250, L501.9985, L506.1000, L500.4050 #### [facility] [address] [place], [address] T PROT 7.0 g/dL Normal 6.4-8.2 [facility] Comment on above: Performed By: #### L 500.4100, L502.0250, L501.9985, L506.1000, L500.4050 #### [facility] [address] [place], [address] Urea nitrogen [Mass/Vol] 18 mg/dL Normal 7-18 [facility] Comment on above: Performed By: #### L 500.4100, L502.0250, L501.9985, L506.1000, L500.4050 #### [facility] [address] [place], [address] Hemoglobin A1con 06-02-2024 HbA1c (Bld) [Mass fraction] 5.2 % Normal 3.8-5.6 [facility] Comment on above: Result Comment: Norm al < 5.7 % Prediabetic 5.7 - 6.4 % Diabetic >or= 6.5 % Please note range changes. Performed By: #### L 500.4100, L502.0250, L501.9985, L506.1000, L500.4050 ####[facility] [id number] [place], [address] Lipid Profileon 06-02-2024 Cholesterol [Mass/Vol] 183 mg/dL Normal 200 [facility] Comment on above: Result Comment: <200 mg/dL Desirable 200-240 mg/dL Borderline >240 mg/dL High Risk Performed By: #### L 500.4100, L502.0250, L501.9985, L506.1000, L500.4050 #### [facility] [address] [place], [address] Cholesterol in HDL [Mass/Vol] 55 mg/dL Normal [facility] Comment on above: Result Comment: The drugs N-Acetylcysteine and Metamizole may falsely depress this assay. Reference Range HDL <40 mg/dL Low HDL Cholesterol HDL >or= 60 mg/dL High HDL Cholesterol Performed By: #### L 500.4100, L502.0250, L501.9985, L506.1000, L500.4050 #### [facility] [address] [place], [address] Cholesterol in LDL [Mass/Vol] 105 mg/dL Normal 0-130 [facility] Comment on above: Performed By: #### L 500.4100, L502.0250, L501.9985, L506.1000, L500.4050 #### [facility] [address] [place], [address] Cholesterol in VLDL [Mass/Vol] 23 mg/dL Normal 5-40 [facility] Comment on above: Performed By: #### L 500.4100, L502.0250, L501.9985, L506.1000, L500.4050 #### [facility] [address] [place], [address] Triglyceride [Mass/Vol] 113 mg/dL Normal [facility] Comment on above: Result Comment: The drugs N-Acetylcysteine and Metamizole may falsely depress this assay. Serum Triglycerides Reference Interval Normal <150 mg/dL Borderline high 150 - 199 mg/dL High 200 - 499 mg/dL Very High > or = 500 mg/dL Performed By: #### L 500.4100, L502.0250, L501.9985, L506.1000, L500.4050 #### [facility] [address] [place], [address] Microalb:Creat Ratio,Random URon 06-02-2024 Creatinine [Mass/Vol] 134.00 mg/dL Normal NO RAN GE EST. [facility] Comment on above: Performed By: #### L 500.4100, L502.0250, L501.9985, L506.1000, L500.4050 ####[facility] [id number] [place], [address] MALB:CRE 8.7 mg/g CRE Normal <30 mg/g CRE [facility] Comment on above: Performed By: #### L 500.4100, L502.0250, L501.9985, L506.1000, L500.4050 ####[facility] [id number] [place], [address] MICROALBUMIN,UR 11.6 mg/L Normal NO RANGE EST. [facility] Comment on above: Performed By: #### L 500.4100, L502.0250, L501.9985, L506.1000, L500.4050 ####[facility] [id number] [place], [place], [address] Vitamin D,25 Hydroxyon 06-02 Vitamin D 25-OH 53.5 ng/mL Normal [facility] Comment on above: Result Comment: Stephanie min D 25(OH) Status Range Deficiency <20 ng/mL (50nmol/L) Insufficiency 20 - 30 ng/mL (50 - 75 nmol/L) Sufficiency 30 - 100 ng/mL (75 - 250 nmol/L) Toxicity >100 ng/mL (>250 nmol/L) Performed By: #### L 500.4100, L502.0250, L501.9985, L506.1000, L500.4050 ####[facility] [id number] [place], [address] CNOVon 12-27-2023 [facility] Office Visit ([facility]) VISHAL GEORGE ([id number]) 1960 F Date Time Provider Department 12/27/23 12:00 PM SHAY TERESA [facility] During your visit today, we recorded the following information about you: Pulse Blood pressure Weight 71/minute 132/67 73.5 kg Shay Teresa APRN.JUNIOR LINUX ADMINISTRATOR 12/27/2023 12:21 PM Signed START taking 2 [...] or concern, you can call me at [phone]. Shay Teresa APRN.MELODY 12/27/2023 12:33 PM Signed [facility] Heart Failure Clinic OUTPATIENT VISIT DATE December [...] of ventricular tachycardia. She was transferred to [facility] for possible ICD placement. Electrophysiology was [...] use inhaler daily. She follows with a apprentice/lineman in [place]. Does not weigh every day. Monitors her sodium intake. Does not monitor fluids as well. Weights have been stable at 162-164 lbs. States she had an echocardiogram in September in [place] and reports an ejection fraction of 45%. She was told by her apprentice/lineman if it was less than 35% she [...] with [facility] Clinic and with cardiology in [place]. She is to call the office next [...] once GDMT is optimized -repeat echo in [place] shows 45% from September 2023 Per the patient- no outside records present during visit 3. Hyperlipidemia (more content not included)... Normal [facility] Basophil percentageOrdered B y: Ricki Holbrookpkins on 11-13-2023 Bilirubin [Mass/Vol] 0.40 mg/dL 0.20-1.00 [facility] Comment on above: For patients on eltr ombopag therapy, use of Dimension Mercedes TBIL is not recommended. Chloride [Moles/Vol] 110 mmol/L 98-107 [facility] Cholesterol [Mass/Vol] 137 mg/dL <200 [facility] Comment on above: <200 mg/dL Desirable 200-240 mg/dL Borderline >240 mg/dL High Risk Glucose [Mass/Vol] 117 mg/dL 74-106 [facility] Comment on above: Fasting Glucose resu lt from 100 to 125 mg/dL suggests IMPAIRED HOMEOSTASIS per A.D.A. criteria. Potassium [Moles/Vol] 4.8 mmol/L 3.5-5.1 [facility] Protein [Mass/Vol] 6.9 g/dL 6.4-8.2 [facility] Sodium [Moles/Vol] 139 mmol/L 136-145 [facility] Triglyceride [Mass/Vol] 52 mg/dL <199 [facility] Comment on above: The drugs N-Acetylcy steine and Metamizole may falsely depress this assay.Serum Triglycerides Reference Interval Normal <150 mg/dL Borderline high 150 - 199 mg/dL High 200 - 499 mg/dL Very High > or = 500 mg/dL Laboratory - Chemistry and C hemistry - challengeOrdered By: Ricki Griffin on 11-13-2023 Albumin/Globulin [Mass ratio] 1.2 {ratio} 0.9-2.4 [facility] ALP [Catalytic activity/Vol] 72 U/L 45-117 [facility] ALT [Catalytic activity/Vol] 28 U/L 13-56 [facility] Cholesterol in HDL (Body fld) [Mass/Vol] 52 mg/dL >40 [facility] Comment on above: The drugs N-Acetylcy steine and Metamizole may falsely depress this assay. Reference Range HDL <40 mg/dL Low HDL Cholesterol HDL >or= 60 mg/dL High HDL Cholesterol Cholesterol in LDL (Body fld) [Moles/Vol] 75 mg/dL 0-130 [facility] Cholesterol in VLDL Calc [Moles/Vol] 10 mg/dL 5-40 [facility] CO2 [Moles/Vol] 27.0 mmol/L 21.0-32.0 [facility] Globulin (S) [Mass/Vol] 3.2 g/dL 2.2-4.2 [facility] Urea nitrogen/Creatinine [Mass ratio] 26.3 mg/mg 10-20 [facility] No Panel InformationOrdered By: Ricki Griffin on 11-13-2023 Estimated GFR (MDRD) Amer 94 mL/min >60 [facility] Comment on above: GFR Calc Estimated GFR (MDRD) Non-Af Amer 78 mL/min >60 [facility] Comment on above: Non- GFR Calc Vitamin D 25-Hydroxy 62.7 ng/mL [facility] Comment on above: Vitamin D 25(OH) Sta tus Range Deficiency <20 ng/mL (50nmol/L) Insufficiency 20 - 30 ng/mL (50 - 75 nmol/L) Sufficiency 30 - 100 ng/mL (75 - 250 nmol/L) Toxicity >100 ng/mL (>250 nmol/L) Serum or plasma calcium virgie urement (mass/volume)Ordered By: Ricki Griffin on 11-13-2023 Calcium [Mass/Vol] 9.4 mg/dL 8.5-10.1 [facility] Serum or plasma creatinine m easurement (mass/volume)Ordered By: Ricki Griffin on 11-13-2023 Creatinine [Mass/Vol] 0.80 mg/dL 0.55-1.02 [facility] Comment on above: The validity of the calculated GFR & GFRAA in patients over 70 years has not been determined. Clinical correlation is essential. Serum or plasma urea nitroge n measurement (mass/volume)Ordered By: Ricki Griffin on 11-13-2023 Urea nitrogen [Mass/Vol] 21 mg/dL 7-18 [facility] Thin prep Papanicolaou smear with manual screeningOrdered By: Ricki Griffin on 11-13-2023 Thin prep Papanicolaou smear with manual screening 3.7 g/dL 3.2-5.0 [facility] Thin prep Papanicolaou smear with manual screening 16 U/L 15-37 [facility] Thin prep Papanicolaou smear with manual screening 2 5-15 [facility] Thin prep Papanicolaou smear with manual screening 5.1 mg/L NO RANGE EST. [facility] Urine albumin/creatinine rat io for detection of microalbuminuriaOrdered By: Ricki Griffin on 11-13-2023 Albumin/Creatinine DL <= 1.0 mg/L (24H U) [Ratio] 6.1 mg/g CRE <30 [facility] Urine creatinine measurement (mass/volume)Ordered By: Ricki Griffin on 11-13-2023 Creatinine (U) [Mass/Vol] 83.70 mg/dL NO RANGE EST. [facility] Whole blood hemoglobin A1c/t otal hemoglobin ratio (mass fraction)Ordered By: Ricki Griffin on 11-13-2023 HbA1c (Bld) [Mass fraction] 5.4 % 3.8-5.6 [facility] Comment on above: Normal < 5.7 % Predi abetic 5.7 - 6.4 % Diabetic >or= 6.5 % Please note range changes. CNOVon 07-12-2023 [facility] Office Visit ([facility]) VISHAL GEORGE ([id number]) 1960 F Date Time Provider Department 07/12/23 12:00 PM SHAY TERESA [facility] During your visit today, we recorded the following information about you: Pulse Blood pressure Weight 69/minute 139/76 74 kg Shay Teresa APRN.CNP 07/12/2023 12:38 PM Signed [facility] Heart Failure [facility] OUTPATIENT VISIT DATE July [...] of ventricular tachycardia. She was transferred to [facility] for possible ICD placement. Electrophysiology was consulted. Recommended life vest and repeat echo in 3 months. Cardiology also started patient on carvedilol, jardiance and aldactone along with entresto. Today, the patient reports feeling very well. She follows with a apprentice/lineman in [place]. Every once in awhile she feels a [...] once GDMT is optimized -repeat echo in [place] shows 15% Per the patient- no outside records present during visit 3. Hyperlipidemia, unspecified hyperlipidemia type - ICD9: 272.4, ICD10: E78.5 -continue statin therapy 4. Primary hypertension - ICD9: 401.9, ICD10: I10 -BP suboptimal during visit 139/76 mmHg -encourage DASH/low sodium diet -encourage exercise with rest breaks as needed -goal BP <130/80 mmHg -continue home BP monitoring 5. Coronary artery disease involving [place] coronary artery of [place] heart without angina pectoris - ICD9: 414.01, ICD10: I25.10 -stable -s/p [facility] on 02/25 -on aspirin and BB Follow up appointment with Cardiology in [place]. Moe Washington to be scheduled. PAST MEDICAL HISTORY Diagnosis Date Cataract of left eye COPD (chronic obstructive pulmonary disease) (HCC) Dilated cardiomyopathy (HCC) 02/27/2023 Dysplasia of cervix, unspecified High cholesterol History of percutaneous cor (more content not included)... Normal [facility] 06-07-2023 [facility] Office Visit ([facility]) VISHAL GEORGE ([id number]) 1960 F Date Time Provider Department 06/07/23 12:00 PM SHAY TERESA [facility] During your visit today, we recorded the following information about you: Pulse Weight 66/minute 74.6 kg Shay Teresa APRN.CNP 06/07/2023 12:42 PM Signed [facility] V[facility] OUTPATIENT VISIT DATE June [...] of ventricular tachycardia. She was transferred to [facility] for possible ICD placement. Electrophysiology was [...] able. She states she has a primary apprentice/lineman at [place] in which she had an echocardiogram that [...] once GDMT is optimized -repeat echo in [place] shows 15% Per the patient- no outside records present during visit 3. Hyperlipidemia, unspecified hyperlipidemia type - ICD9: 272.4, ICD10: E78.5 -continue statin therapy 4. Primary hypertension - ICD9: 401.9, ICD10: I10 -BP suboptimal during visit mmHg -encourage DASH/low sodium diet -encourage exercise with rest breaks as needed -goal BP <130/80 mmHg -continue home BP monitoring 5. Coronary artery disease involving [place] coronary artery of [place] heart without angina pectoris - ICD9: 414.01, ICD10: I25.10 -stable -s/p C on 02/25 -on aspirin and BB Follow up appointment with Cardiology in [place], Dr. Ofor to be scheduled. PAST MEDICAL HISTORY Diagnosis Date Cataract of left eye COPD (chronic obstructive pulmonary disease) (HCC) Dilated cardiomyopathy (HCC) 02/27/2023 Dysplasia of cervix, unspecified High cholesterol History of percutaneo (more content not included)... Normal [facility] Basophil percentageOrdered B y: Ricki Griffin on 05-03-2023 Bilirubin [Mass/Vol] 0.40 mg/dL 0.20-1.00 [facility] Comment on above: For patients on eltr ombopag therapy, use of Dimension Mercedes TBIL is not recommended. Chloride [Moles/Vol] 106 mmol/L 98-107 [facility] Cholesterol [Mass/Vol] 132 mg/dL <200 [facility] Comment on above: <200 mg/dL Desirable 200-240 mg/dL Borderline >240 mg/dL High Risk Glucose [Mass/Vol] 88 mg/dL 74-106 [facility] Potassium [Moles/Vol] 4.1 mmol/L 3.5-5.1 [facility] Protein [Mass/Vol] 6.8 g/dL 6.4-8.2 [facility] Sodium [Moles/Vol] 141 mmol/L 136-145 [facility] Triglyceride [Mass/Vol] 92 mg/dL <199 [facility] Comment on above: The drugs N-Acetylcy steine and Metamizole may falsely depress this assay.Serum Triglycerides Reference Interval Normal <150 mg/dL Borderline high 150 - 199 mg/dL High 200 - 499 mg/dL Very High > or = 500 mg/dL Laboratory - Chemistry and C hemistry - challengeOrdered By: Ricki Griffin on 05-03-2023 ALP [Catalytic activity/Vol] 78 U/L 45-117 [facility] ALT [Catalytic activity/Vol] 38 U/L 13-56 [facility] CO2 [Moles/Vol] 27.0 mmol/L 21.0-32.0 [facility] Globulin (S) [Mass/Vol] 3.0 g/dL 2.2-4.2 [facility] Urea nitrogen/Creatinine [Mass ratio] 11.3 mg/mg 10-20 [facility] No Panel InformationOrdered By: Ricki Griffin on 05-03-2023 Estimated GFR (MDRD) Amer 94 mL/min >60 [facility] Comment on above: GFR Calc Estimated GFR (MDRD) Non-Af Amer 78 mL/min >60 [facility] Comment on above: Non- GFR Calc Urine Microalbumin/Creatinine Ratio 7.6 mg/g CRE <30 [facility] Vitamin D 25-Hydroxy 59.7 ng/mL [facility] Comment on above: Vitamin D 25(OH) Sta tus Range Deficiency <20 ng/mL (50nmol/L) Insufficiency 20 - 30 ng/mL (50 - 75 nmol/L) Sufficiency 30 - 100 ng/mL (75 - 250 nmol/L) Toxicity >100 ng/mL (>250 nmol/L) Serum or plasma albumin virgie urement (mass/volume)Ordered By: Ricki Griffin on 05-03-2023 Albumin [Mass/Vol] 3.8 g/dL 3.2-5.0 [facility] Serum or plasma albumin/glob ulin mass ratioOrdered By: Ricki Griffin on 05-03-2023 Albumin/Globulin [Mass ratio] 1.3 {ratio} 0.9-2.4 [facility] Serum or plasma calcium virgie urement (mass/volume)Ordered By: Ricki Griffin on 05-03-2023 Calcium [Mass/Vol] 9.0 mg/dL 8.5-10.1 [facility] Serum or plasma cholesterol in HDL measurement (mass/volume)Ordered By: Ricki Griffin on 05-03-2023 Cholesterol in HDL [Mass/Vol] 44 mg/dL >40 [facility] Comment on above: The drugs N-Acetylcy steine and Metamizole may falsely depress this assay. Reference Range HDL <40 mg/dL Low HDL Cholesterol HDL >or= 60 mg/dL High HDL Cholesterol Serum or plasma cholesterol in VLDL measurement (mass/volume)Ordered By: Ricki Griffin on 05-03-2023 Cholesterol in VLDL [Mass/Vol] 18 mg/dL 5-40 [facility] Serum or plasma creatinine m easurement (mass/volume)Ordered By: Ricki Griffin on 05-03-2023 Creatinine [Mass/Vol] 0.80 mg/dL 0.55-1.02 [facility] Comment on above: The validity of the calculated GFR & GFRAA in patients over 70 years has not been determined. Clinical correlation is essential. Serum or plasma low density lipoprotein (LDL) cholesterol measurement (mass/volume)Ordered By: Ricki Griffin on 05-03-2023 Cholesterol in LDL [Mass/Vol] 70 mg/dL 0-130 [facility] Serum or plasma urea nitroge n measurement (mass/volume)Ordered By: Ricki Griffin on 05-03-2023 Urea nitrogen [Mass/Vol] 9 mg/dL 7-18 [facility] Thin prep Papanicolaou smear with manual screeningOrdered By: Ricki Griffin on 05-03-2023 Thin prep Papanicolaou smear with manual screening 17 U/L 15-37 [facility] Thin prep Papanicolaou smear with manual screening 8 5-15 [facility] Thin prep Papanicolaou smear with manual screening 5.1 mg/L NO RANGE EST. [facility] Urine creatinine measurement (mass/volume)Ordered By: Ricki Griffin on 05-03-2023 Creatinine (U) [Mass/Vol] 66.40 mg/dL NO RANGE EST. [facility] Absolute lymphocyte countOrd ered By: Shira Oglesby on 04-24-2023 Lymphocytes Auto (Unsp spec) [#/Vol] 1.07 10*3/uL 0.83-4.51 [facility] Basophil percentageOrdered B y: Shira Oglesby on 04-24-2023 Basophils/100 WBC (Bld) 0.7 % 0-1 [facility] Bilirubin [Mass/Vol] 0.90 mg/dL 0.20-1.00 [facility] Comment on above: For patients on eltr ombopag therapy, use of Dimension Mercedes TBIL is not recommended. Chloride [Moles/Vol] 102 mmol/L 98-107 [facility] Eosinophils/100 WBC (Bld) 0.2 % 0-5 [facility] Glucose [Mass/Vol] 170 mg/dL 74-106 [facility] Comment on above: Fasting Glucose resu lt greater than or equal to 126 mg/dL suggests DIABETES MELLITUS per A.D.A. criteria. Neutrophils (Bld) [#/Vol] 10.3 10*3/uL 2.0-7.7 [facility] Neutrophils/100 WBC (Bld) 84.4 % 47-70 [facility] Potassium [Moles/Vol] 3.9 mmol/L 3.5-5.1 [facility] Protein [Mass/Vol] 8.2 g/dL 6.4-8.2 [facility] Sodium [Moles/Vol] 136 mmol/L 136-145 [facility] WBC (Bld) [#/Vol] 12.2 10*3/uL 4.4-11.0 [facility] Blood erythrocytes count (nu mber/volume)Ordered By: Shira Oglesby on 04-24-2023 RBC (Bld) [#/Vol] 4.85 10*6/uL 4.2-5.4 [facility] Blood hemoglobin measurement (mass/volume)Ordered By: Shira Oglesby on 04-24-2023 Hemoglobin (Bld) [Mass/Vol] 13.9 g/dL 12.0-15.0 [facility] Blood lymphocytes/100 leukoc ytesOrdered By: Shira Oglesby on 04-24-2023 Lymphocytes/100 WBC (Bld) 8.8 % 19-41 [facility] Blood monocytes/100 leukocyt esOrdered By: Shira Oglesby on 04-24-2023 Monocytes/100 WBC (Bld) 5.3 % 0-10 [facility] Blood platelet mean volumeOr dered By: Shira Oglesby on 04-24-2023 Platelet mean volume (Bld) [Entitic vol] 9.8 fL 6.2-12.0 [facility] Determination of erythrocyte mean corpuscular volume (MCV)Ordered By: Shira Oglesby on 04-24-2023 MCV (RBC) [Entitic vol] 87.0 fL 81-99 [facility] Direct bilirubinOrdered By: Shira Oglesby on 04-24-2023 Bilirubin.direct [Mass/Vol] 0.23 mg/dL 0.00-0.30 [facility] Hematocrit Auto (Bld) [Volum e fraction]Ordered By: Shira Oglesby on 04-24-2023 Hematocrit (Bld) [Volume fraction] 42.2 % 37-47 [facility] Laboratory - Chemistry and C hemistry - challengeOrdered By: Shira Oglesby on 04-24-2023 ALP [Catalytic activity/Vol] 92 U/L 45-117 [facility] ALT [Catalytic activity/Vol] 82 U/L 13-56 [facility] CO2 [Moles/Vol] 20.0 mmol/L 21.0-32.0 [facility] Globulin (S) [Mass/Vol] 3.9 g/dL 2.2-4.2 [facility] Lipase [Catalytic activity/Vol] 28 U/L 13-75 [facility] Comment on above: Please note:LIPASE r evised reference range effective 23. New Lipase methodology. Expected to produce lower values than the previous assay method. NEW Reference Range: 13 - 75 U/L Urea nitrogen/Creatinine [Mass ratio] 16.3 mg/mg 10-20 [facility] Laboratory - Hematology and Cell countsOrdered By: Shira Oglesby on 04-24-2023 Erythrocyte distribution width (RBC) [Entitic vol] 40.6 fL 35.1-43.9 [facility] Erythrocyte distribution width (RBC) [Ratio] 12.9 % 11.6-14.6 [facility] Immature granulocytes/100 WBC (Bld) 0.600 % 0.0-0.9 [facility] Comment on above: IG% - Immature Granu locytes (promyelocytes, myelocytes and metamyelocytes) > 1% indicates that a LEFT SHIFT is Present. MCH (RBC) [Entitic mass] 28.7 pg 27.0-32.0 [facility] Nucleated RBC/100 WBC (Bld) [Ratio] 0 % 0-5 [facility] MCHC Auto (RBC) [Mass/Vol]Or dered By: Shira Oglesby on 04-24-2023 MCHC (RBC) [Mass/Vol] 32.9 g/dL 32-36 [facility] No Panel InformationOrdered By: Shira Oglesby on 04-24-2023 Estimated Creatinine Clearance Calc 37.88 ml/min [facility] Estimated GFR (MDRD) Amer 54 mL/min >60 [facility] Comment on above: GFR Calc Estimated GFR (MDRD) Non-Af Amer 45 mL/min >60 [facility] Comment on above: Non- GFR Calc Troponin I High Sensitivity 9 pg/mL 3.0-54.0 [facility] Comment on above: Please Note: New [place] t Units and Gender Specific Reference Ranges. For more information see Policy Stat Procedure Mercedes High Sensitivity Troponin (TNIH) and attachments. Platelets bldOrdered By: Karyn Oglesby on 04-24-2023 Platelets (Bld) [#/Vol] 406 10*3/uL 150-450 [facility] Serum or plasma albumin virgie urement (mass/volume)Ordered By: Shira Oglesby on 04-24-2023 Albumin [Mass/Vol] 4.3 g/dL 3.2-5.0 [facility] Serum or plasma calcium virgie urement (mass/volume)Ordered By: Shira Oglesby on 04-24-2023 Calcium [Mass/Vol] 10.1 mg/dL 8.5-10.1 [facility] Serum or plasma creatinine m easurement (mass/volume)Ordered By: Shiar Oglesby on 04-24-2023 Creatinine [Mass/Vol] 1.29 mg/dL 0.55-1.02 [facility] Comment on above: The validity of the calculated GFR & GFRAA in patients over 70 years has not been determined. Clinical correlation is essential. Serum or plasma urea nitroge n measurement (mass/volume)Ordered By: Shira Oglesby on 04-24-2023 Urea nitrogen [Mass/Vol] 21 mg/dL 7-18 [facility] Thin prep Papanicolaou smear with manual screeningOrdered By: Shira Oglesby on 04-24-2023 Thin prep Papanicolaou smear with manual screening 42 U/L 15-37 [facility] Thin prep Papanicolaou smear with manual screening 14 5-15 [facility] CNPNon 03-25-2023 MELODYN Telephone (AGCARDPORyne) VISHAL GEORGE ([id number]) 1960 F Date Time Provider Department 03/25/23 [...] the Lifevest has been declined. Melissa Koroma APRN.JUNIOR LINUX ADMINISTRATOR Allergies As of Date: 03/25/2023 Noted Allergy Reaction ADHESIVE TAPE (ROSINS) 09/10/2012 2 - Rash Date Reviewed: 03/07/2023 Reviewed by: Shay Teresa APRN.JUNIOR LINUX ADMINISTRATOR - Fully Assessed Reason for Visit: Renal Medicine Physician - Other [3602] Prescriptions as of 03/25/2023 [...] 03/25/2023 Noted Resolved Coronary artery disease involving [place] howard*09/10/2012 Unspecified essential hypertension [I10] 09/10/2012 08/29/2016 [...] by MELISSA KOROMA on 03/25/23 [facility] MEÑO Telephone (AGCARDPOB) VISHAL GEORGE ([id number]) 1960 F Date Time Provider Department 03/25/23 [...] Signed Vinay Lovell MD You; Melissa Koroma APRN.JUNIOR LINUX ADMINISTRATOR 11 hours ago (8:37 PM) I did not feel that a LifeVest was indicated Alessandra Damon RN 03/26/2023 8:17 AM Signed Pt notified and voices understanding. KARIN Galvan RN 03/26/2023 8:32 AM Signed I faxed this note to Dr Reeves's office at [phone]. Alessandra Damon RN Allergies As of Date: 03/25/2023 Noted Allergy Reaction ADHESIVE TAPE (ROSINS) 09/10/2012 2 - Rash Date Reviewed: 03/07/2023 Reviewed by: Shay Teresa APRN.JUNIOR LINUX ADMINISTRATOR - Fully Assessed Reason for Visit: Patient Question [5244] Prescriptions as of 03/26/2023 - furosemide (LASIX) [...] 03/25/2023 Noted Resolved Coronary artery disease involving [place] howard*09/10/2012 Unspecified essential hypertension [I10] 09/10/2012 08/29/2016 [...] by ALESSANDRA DAMON on 03/26/23 [facility] Penelope 03-07-2023 [facility] VISHAL GEORGE ([id number]) 1960 F Date Time Provider Department 03/07/23 10:00 AM [facility] During your visit today, we recorded the following information about you: Pulse Blood pressure Weight 86/minute 116/64 69.9 kg Shay Teresa APRN.MELODY 03/07/2023 11:18 AM [facility] OUTPATIENT VISIT DATE March 07, 2023 OUTPATIENT VISIT TYPE NEW PRIMARY CARE PHYSICIAN: Ricki Griffin, LINING MECHANIC, JUNIOR LINUX ADMINISTRATOR REFERRING PHYSICIAN: No referring provider defined for [...] dilated cardiomyopathy, chronic obstructive pulmonary disease, s/p [facility] with stent placement on 02/25 revealing 50% [...] of ventricular tachycardia. She was transferred to [facility] for possible ICD placement. Electrophysiology was [...] BP monitoring 5. Coronary artery disease involving [place] coronary artery of [place] heart without angina pectoris - ICD9: 414.01, ICD10: I25.10 -stable -s/p C on 02/25 -on aspiri (more content not included)... Normal [facility] Basic metabolic 2000 panelon 03-01-2023 Anion gap [Moles/Vol] 12 mmol/L Normal 9-18 [facility] Comment on above: Order Comment: Speci men Type: BLOOD SPECIMEN Ordering Facility: [facility] Address: [address] [place] [address] Performed By: #### 2 4321-2, #### [facility] CLIA [id number] [address] [place] [address] [place] Calcium [Mass/Vol] 9.8 mg/dL Normal 8.5-10.2 [facility] Comment on above: Order Comment: Speci men Type: BLOOD SPECIMEN Ordering Facility: [facility] Address: [address] [place] [address] Performed By: #### 2 2, #### [facility] CL[facility] [id number] [address] [place] [address] [place] Chloride [Moles/Vol] 100 mmol/L Normal 97-105 [facility] Comment on above: Order Comment: Speci men Type: BLOOD SPECIMEN Ordering Facility: [facility] Address: [address] [place] [address] Performed By: #### 2 2, #### [facility] CLIA [id number] [address] [place] [address] [place] CO2 [Moles/Vol] 24 mmol/L Normal 22-30 [facility] Comment on above: Order Comment: Speci men Type: BLOOD SPECIMEN Ordering Facility: [facility] Address: [address] [address] Performed By: #### 2 2, #### [facility] CLIA [id number] [address] [place] [address] [place] Creatinine [Mass/Vol] 0.69 mg/dL Normal 0.58-0.96 [facility] Comment on above: Order Comment: Speci men Type: BLOOD SPECIMEN Ordering Facility: [facility] Address: [address] [place] [address] Performed By: #### 2 4320-, #### [facility] CLIA [id number] [address] [place] [address] [place] ESTIMATED GLOMERULAR FILTRATION RATE 99 mL/min/1.73m??? Normal >=60 [facility] Comment on above: Order Comment: Juan Manuel cox Type: BLOOD SPECIMEN Ordering Facility: [facility] Address: [address] [place] [address] Result Comment: Elenita mated Glomerular Filtration Rate [...] GFR. Performed By: #### 2 43210-15, #### [facility] CLIA [id number] [address] [place] [address] [place] Glucose [Mass/Vol] 100 mg/dL High 74-99 [facility] Comment on above: Order Comment: Juan Manuel cox Type: BLOOD SPECIMEN Ordering Facility: [facility] Address: [address] [place] [address] Result Comment: The [place] Diabetes Association (ADA) provides guidance for cutoff [...] Standards of Medical Care in Diabetes 2016, [place] [employer]. Diabetes Care. 2016.39(Suppl 1). Performed By: #### 2 432-, #### [facility] CLIA [id number] [address] [place] [address] [place] Potassium [Moles/Vol] 4.1 mmol/L Normal 3.7-5.1 [facility] Comment on above: Order Comment: Juan Manuel cox Type: BLOOD SPECIMEN Ordering Facility: [facility] Address: [address] [address] Performed By: #### 2 4322, #### [facility] CLIA [id number] [address] Sodium [Moles/Vol] 136 mmol/L Normal 136-144 [facility] Comment on above: Order Comment: Francescoi men Type: BLOOD SPECIMEN Ordering Facility: [facility] Address: [address] [place] [address] Performed By: #### 2 4320-11, #### [facility] CLIA [id number] [address] OF [facility] Urea nitrogen [Mass/Vol] 15 mg/dL Normal 7-21 [facility] Comment on above: Order Comment: Francescoi men Type: BLOOD SPECIMEN Ordering Facility: [facility] Address: [address] [place] [address] Performed By: #### 2 4320-11, #### [facility] CLIA [id number] [address] OF [facility] CNDSon 03-01-2023 CN HNO ID: [id number] Author: Oly Guzmán DO Service: Hospital Medicine [...] Guzmán DO Primary Care Provider: Ricki Griffin, LINING MECHANIC, JUNIOR LINUX ADMINISTRATOR My Medical Team Members: Treatment Team: Attending [...] CAD status post stent who presented to [facility] for severe nausea and vomiting and [...] was a planned to be discharged from [place], but then she had a 34 run of V. tach/wide-complex tachycardia so decision was to transfer her to [facility] for ICD evaluation as that was [...] with follow up with her PCP and apprentice/lineman. OTHER PROBLEMS/DIAGNOSIS: Principal Problem: NSVT (nonsustained ventricular tachycardia) (HCC) Active Problems: Coronary artery disease involving [place] coronary artery Hyperlipidemia Hypertension Nicotine use disorder, [...] CAD status post stent who presented to [facility] for severe nausea and vomiting and [...] was a planned to be discharged from [place], but then she had a 34 run (more content not included)... Normal [facility] Telephone ([facility]) VISHAL GEORGE ([id number]) 1960 F Date Time Provider Department 03/01/23 INNA POOLE [facility] During your visit today, we recorded the following information about you: Inna Poole RN 03/01/2023 2:13 PM Signed Order received for OP follow up with the [facility] on 02/28/23. Met with patient at bedside. Instructed patient on the purpose of the [facility]. Provided with Zone sheet. Patient lives in [place] and prefers to follow up at the [facility]. Notified the Heart Failure Nurse Navigator of patient's request. She will contact the [facility]. Allergies As of Date: 03/01/2023 Noted Allergy Reaction ADHESIVE TAPE (ROSINS) 09/10/2012 2 - Rash Date Reviewed: 02/28/2023 Reviewed by: Héctor Oliver RN - Fully Assessed Reason for Visit: Orders [681] ak [facility] appt contact [Other] Prescriptions as of 03/01/2023 [...] 03/01/2023 Noted Resolved Coronary artery disease involving [place] howard*09/10/2012 Unspecified essential hypertension [I10] 09/10/2012 08/29/2016 [...] by INNA POOLE on 03/01/23 [facility] CNPN Telephone (AKEV) VISHAL GEORGE ([id number]) 1960 F Date Time Provider Department 03/01/23 TAYLOR GORDILLO During your visit today, we recorded the following information about you: Taylor Gordillo APRN.BOOKKEEPERS SUPERVISOR 03/01/2023 3:29 PM Signed Patient seen by HF Clinic nurse to discuss post-discharge follow-up in HF Clinic. Patient prefers [facility], due to location. Patient information and plan for discharge home today sent to Eva Macias CNP ([facility]). Allergies As of Date: 03/01/2023 Noted Allergy Reaction ADHESIVE TAPE (ROSINS) 09/10/2012 2 - Rash Date Reviewed: 02/28/2023 Reviewed by: Héctor Oliver RN - Fully Assessed Reason for Visit: Renal Medicine Physician - Hospital Follow Up [6910] Cmt: Contacted Eva Macias CNP ([facility]) Prescriptions as of 03/01/2023 - carvedilol [...] 03/01/2023 Noted Resolved Coronary artery disease involving [place] howard*09/10/2012 Unspecified essential hypertension [I10] 09/10/2012 08/29/2016 [...] by TAYLOR GORDILLO on 03/01/23 [facility] CONSULT PROGon 03-01-2023 CONSULT PROG HNO ID: [id number] Author: Shellie Woods APRN.JUNIOR LINUX ADMINISTRATOR Service: Cardiovascular Medicine Author Type: Nurse Practitioner Type: Consult Progress Note Filed: 03/01/2023 11:00 AM Note Text: CARDIOLOGY CONSULT PROGRESS NOTE CARDIOLOGY ATTENDING: Dr. Ryan/ Dr. Reeves is outpatient apprentice/lineman Date and Reason for initial consult: CHF [...] NSVT, recently had an echocardiogram performed at [place] with findings of EF of 15%. She [...] for opt (more content not included)... Normal [facility] Magnesium SerPl-mCncon 03-01 Magnesium [Mass/Vol] 2.1 mg/dL Normal 1.7-2.3 [facility] Comment on above: Order Comment: Speci men Type: BLOOD SPECIMEN Ordering Facility: [facility] Address: [address] [place] [address] Performed By: #### 2 4321-2, 11906-4 #### [facility] CLIA [id number] [address] [place] NURSING PROGon 03-01-2023 NURSING PROG HNO ID: [id number] Author: Inna Poole RN Service: Heart Failure Clinic Author Type: Registered Nurse Type: Nursing Progress Note Filed: 03/01/2023 2:08 PM Note Text: Order received for OP follow up with the [facility] on 02/28/23. Met with patient at bedside. Instructed patient on the purpose of the [facility]. Provided with Zone sheet. Patient lives in [place] and prefers to follow up at the [facility] in [place]. Notified Heart Failure nurse Navigator. She will contact [facility]. Normal [facility] Basic metabolic 2000 panelon 02-28-2023 Anion gap [Moles/Vol] 12 mmol/L Normal 9-18 [facility] Comment on above: Order Comment: Speci men Type: BLOOD SPECIMEN Ordering Facility: [facility] Address: [place] [address] Performed By: #### 5 8410-2 #### [facility] CLIA [id number] [address] [place] Calcium [Mass/Vol] 9.7 mg/dL Normal 8.5-10.2 [facility] Comment on above: Order Comment: Speci men Type: BLOOD SPECIMEN Ordering Facility: [facility] Address: [address] [address] Performed By: #### 5 8410-2 #### [facility] CLIA [id number] 1 [place] [address] [place] Chloride [Moles/Vol] 99 mmol/L Normal 97-105 [facility] Comment on above: Order Comment: Speci men Type: BLOOD SPECIMEN Ordering Facility: [facility] Address: [address] [address] Performed By: #### 5 8410-2 #### [facility] CLIA [id number] [address] CO2 [Moles/Vol] 25 mmol/L Normal 22-30 [facility] Comment on above: Order Comment: Speci men Type: BLOOD SPECIMEN Ordering Facility: [facility] Address: [address] [place] [address] Performed By: #### 5 8410-2 #### [facility] CLIA [id number] [address] Creatinine [Mass/Vol] 0.72 mg/dL Normal 0.58-0.96 [facility] Comment on above: Order Comment: Speci men Type: BLOOD SPECIMEN Ordering Facility: [facility] Address: [address] [place] [address] Performed By: #### 5 8410-2 #### [facility] CLIA [id number] [address] ESTIMATED GLOMERULAR FILTRATION RATE 96 mL/min/1.73m??? Normal >=60 [facility] Comment on above: Order Comment: Speci men Type: BLOOD SPECIMEN Ordering Facility: [facility] Address: [address] [place] [address] Result Comment: Elenita mated Glomerular Filtration Rate [...] GFR. Performed By: #### 5 8410-2 #### [facility] CLIA [id number] [address] Glucose [Mass/Vol] 105 mg/dL High 74-99 [facility] Comment on above: Order Comment: Speci men Type: BLOOD SPECIMEN Ordering Facility: [facility] Address: [address] [place] [address] Result Comment: The [place] Diabetes Association (ADA) provides guidance for cutoff [...] Standards of Medical Care in Diabetes 2016, [place] [employer]. Diabetes Care. 2016.39(Suppl 1). Performed By: #### 5 8410-2 #### [facility] CLIA [id number] [address] OF [facility] Potassium [Moles/Vol] 3.9 mmol/L Normal 3.7-5.1 [facility] Comment on above: Order Comment: Speci men Type: BLOOD SPECIMEN Ordering Facility: [facility] Address: [address] [place] [address] Performed By: #### 5 8410-2 #### [facility] CLIA [id number] [address] Sodium [Moles/Vol] 136 mmol/L Normal 136-144 [facility] Comment on above: Order Comment: Speci men Type: BLOOD SPECIMEN Ordering Facility: [facility] Address: [address] [place] [place] [address] Performed By: #### 5 8410-2 #### [facility] CLIA [id number] [address] [place] Urea nitrogen [Mass/Vol] 14 mg/dL Normal 7-21 [facility] Comment on above: Order Comment: Speci men Type: BLOOD SPECIMEN Ordering Facility: [facility] Address: [address] [address] Performed By: #### 5 8410-2 #### [facility] CLIA [id number] [address] [place] CONSULTon 02-28-2023 CONSULT HNO ID: [id number] Author: Anibal Ryan MD Service: Cardiovascular Medicine Author Type: Physician Type: Consults Filed: 02/28/2023 10:45 AM Note Text: CONSULT: CARDIOLOGY SERVICE SERVICE DATE: 02/28/2023 CONSULTING PHYSICIAN: Anibal Ryan PCP: Ricki Griffin, LINING MECHANIC, JUNIOR LINUX ADMINISTRATOR ATTENDING: Oly Guzmán DO REASON FOR CONSULT: congestive heart failure management Subjective CHIEF COMPLAINT: Ventricular tachyarrhythmia (HCC) [I47.20] HISTORY OF PRESENT ILLNESS: Ms. George is a 62 year old female with a history of ischemic and nonischemic, coronary disease status post prior PCI in 2006 and recent PCI few days ago, chronic tobacco and alcohol abuse, COPD, hypertension, hyperlipidemia who was transferred from [facility] for further evaluation of ventricular tachycardia. Patient reports she has a history of coronary disease and underwent PCI to the RCA back in 2006. Unfortunately, she did not subsequently follow-up regularly with a apprentice/lineman. He last had preserved LV function as [...] ejection fraction 15%. He was admitted to [facility] for further evaluation in light of [...] was otherwise asymptomatic. She was transferred to [facility] for further evaluation. Since admission to [...] once daily. (more content not included)... Normal [facility] CONSULT PROGon 02-28-2023 CONSULT PROG HNO ID: [id number] Author: Melissa Koroma APRN.JUNIOR LINUX ADMINISTRATOR Service: Electrophysiology Author Type: Nurse Practitioner Type: [...] in the mid RCA status post PCI TELEMETRY/INTERNATIONAL SALES MANAGER: Sinus rhythm with occasional PVCs, rates 60s-70s, [...] nonsustained (HCC) (02/26/2023) Coronary artery disease involving [place] coronary artery (09/10/2012) Hyperlipidemia (08/29/2016) Hypertension (08/29/2016) Nicotine use disorder, F17.2 (02/26/2023) Acute on chronic combined systolic and diastolic CHF (congestive heart failure) ([facility]) (02/26/2023) Tobacco abuse (02/26/2023) NICM (nonischemic cardiomyopathy) ([facility]) (02/27/2023) History of percutaneous coronary intervention (02/27/2023) Chronic systolic CHF (congestive heart failure) ([facility]) (02/28/2023) Ischemic cardiomyopathy (02/28/2023) Alcohol abuse (02/28/2023) The patient has a history of CAD, underwent PCI/stent to RCA in 2006, had preserved LV systolic function at that time and also in 2011 by echocardiogram. However she recently established with a new apprentice/lineman, echocardiogram 02/21/2023 revealed new diagnosis of shamar (more content not included)... Normal [facility] Laboratory - Microbiology an d Antimicrobial susceptibilityOrdered By: Dr. Arndt on 02-28-2023 Bacteria identified Cx Nom (Bld) No growth in 5 days. [facility] Bacteria identified Cx Nom (Bld) No growth in 5 days. [facility] Magnesium SerPl-mCncon 02-28 Magnesium [Mass/Vol] 2.0 mg/dL Normal 1.7-2.3 [facility] Comment on above: Order Comment: Speci men Type: BLOOD SPECIMEN Ordering Facility: [facility] Address: [address] [address] Performed By: #### 2 4321-2, 51981-2 #### [facility] CLIA [id number] 1 [place] [address] [place] Basic metabolic 2000 panelon 02-27-2023 Anion gap [Moles/Vol] 12 mmol/L Normal 9-18 [facility] Comment on above: Order Comment: Speci men Type: BLOOD SPECIMEN Ordering Facility: [facility] Address: [address] [place] [address] Performed By: #### 2 4321-2 #### [facility] CLIA [id number] 1 [place] [address] [place] Calcium [Mass/Vol] 9.9 mg/dL Normal 8.5-10.2 [facility] Comment on above: Order Comment: Speci men Type: BLOOD SPECIMEN Ordering Facility: [facility] Address: [address] [place] [address] Performed By: #### 2 4321-2 #### [facility] CLIA [id number] 1 [place] [address] [place] Chloride [Moles/Vol] 100 mmol/L Normal 97-105 [facility] Comment on above: Order Comment: Speci men Type: BLOOD SPECIMEN Ordering Facility: [facility] Address: [address] [place] [address] Performed By: #### 2 4321-2 #### [facility] CLIA [id number] 1 [place] [address] [place] CO2 [Moles/Vol] 25 mmol/L Normal 22-30 [facility] Comment on above: Order Comment: Juan Manuel kenny Type: BLOOD SPECIMEN Ordering Facility: [facility] Address: [address] [address] Performed By: #### 2 4321-2 #### [facility] CLIA [id number] [address] Creatinine [Mass/Vol] 0.65 mg/dL Normal 0.58-0.96 [facility] Comment on above: Order Comment: Specelise men Type: BLOOD SPECIMEN Ordering Facility: [facility] Address: [address] [address] Performed By: #### 2 4321-2 #### [facility] CLIA [id number] [address] ESTIMATED GLOMERULAR FILTRATION RATE 101 mL/min/1.73m??? Normal >=60 [facility] Comment on above: Order Comment: Juan Manuel kenny Type: BLOOD SPECIMEN Ordering Facility: [facility] Address: [address] [place] [address] Result Comment: Elenita mated Glomerular Filtration Rate [...] GFR. Performed By: #### 2 4321-2 #### [facility] CLIA [id number] [address] [place] [address] Glucose [Mass/Vol] 108 mg/dL High 74-99 [facility] Comment on above: Order Comment: Francescoelise cox Type: BLOOD SPECIMEN Ordering Facility: [facility] Address: [address] [place] [address] Result Comment: The [place] Diabetes Association (ADA) provides guidance for cutoff [...] Standards of Medical Care in Diabetes 2016, [place] [employer]. Diabetes Care. 2016.39(Suppl 1). Performed By: #### 2 4321-2 #### [facility] CLIA [id number] [address] Potassium [Moles/Vol] 4.0 mmol/L Normal 3.7-5.1 [facility] Comment on above: Order Comment: Juan Manuel cox Type: BLOOD SPECIMEN Ordering Facility: [facility] Address: [address] [place] [address] Performed By: #### 2 4321-2 #### [facility] CLIA [id number] [address] [place] [address] Sodium [Moles/Vol] 137 mmol/L Normal 136-144 [facility] Comment on above: Order Comment: Juan Manuel cox Type: BLOOD SPECIMEN Ordering Facility: [facility] Address: [address] [place] [address] Performed By: #### 2 4321-2 #### [facility] CLIA [id number] [address] [place] [address] Urea nitrogen [Mass/Vol] 12 mg/dL Normal 7-21 [facility] Comment on above: Order Comment: Juan Manuel cox Type: BLOOD SPECIMEN Ordering Facility: [facility] Address: [address] [place] [address] Performed By: #### 2 4321-2 #### [facility] CLIA [id number] [address] CONSULTon 02-27-2023 CONSULT HNO ID: [id number] Author: Vinay Lovell MD Service: Electrophysiology Author Type: Physician Type: Consults Filed: 02/27/2023 4:24 PM Note Text: CONSULT: CARDIOLOGY SERVICE [facility] Electrophysiology (EP) SERVICE DATE: 02/27/2023 SERVICE TIME: 4:03 PM CONSULTING PHYSICIAN: Vinay Lovell PCP: Ricki Griffin, LINING MECHANIC, JUNIOR LINUX ADMINISTRATOR ATTENDING: Oly Guzmán DO REASON FOR CONSULT: Arrhythmias Subjective CHIEF COMPLAINT: Ventricular tachyarrhythmia (HCC) [I47.20] HISTORY OF PRESENT ILLNESS: Ms. George is a 62 year old female transferred from [facility] for evaluation of ventricular tachycardia and heart failure. She has history of CAD, underwent PCI/stent to RCA in 2006. She had preserved LV systolic function at that time, and also in 2011 by the most recent echocardiogram. However, she recently established with a new apprentice/lineman, and an echocardiogram 02/21/2023 revealed new diagnosis of severe cardiomyopathy, LVEF 15%. She was experiencing episodes of nausea and diaphoresis over the past couple months, also exertional shortness of breath. She was admitted to [facility] with these symptoms. She underwent cardiac [...] had recurrence of substantial NSVT here at [facility]. No history of syncope or near [...] 10 mg (more content not included)... Normal [facility] NUTRITIONon 02-27-2023 NUTRITION HNO ID: [id number] Author: Hui Crandall RD Service: Nutrition Therapy [...] Medical condition, Patient/family self-report Estimated kilocalorie needs: 4510-1920 Calorie Calculation Method: 25-30 kcals/kg, Colver Body Weight Estimated protein needs (grams): 54-65 Grams protein determined by: 1.0 - 1.2 g/kg, Colver body weight Care Plan: Follow for diet advancement to goal Monitor and Evaluation: Meet greater than 75% of estimated needs, Monitor fluid/electrolyte balance, Monitor bowel function, Monitor labs, I/Os, vital signs, weight Discharge Recommendations: Diet Diet: Heart Healthy - HPI: 62 yo female, presented with ventricular tachyarrhythmia from [facility], O at present, awaiting Cardiology consult [...] February 27, 2023 TIME: 10:19 AM Normal [facility] Basophil percentageOrdered B y: Dr. Joseph on 02-26-2023 Bilirubin [Mass/Vol] 0.40 mg/dL 0.20-1.00 [facility] Comment on above: For patients on eltr ombopag therapy, use of Dimension Mercedes TBIL is not recommended. Chloride [Moles/Vol] 101 mmol/L 98-107 [facility] Glucose [Mass/Vol] 108 mg/dL 74-106 [facility] Comment on above: Fasting Glucose resu lt from 100 to 125 mg/dL suggests IMPAIRED HOMEOSTASIS per A.D.A. criteria. Potassium [Moles/Vol] 3.9 mmol/L 3.5-5.1 [facility] Protein [Mass/Vol] 7.1 g/dL 6.4-8.2 [facility] Sodium [Moles/Vol] 136 mmol/L 136-145 [facility] WBC (Bld) [#/Vol] 7.4 10*3/uL 4.4-11.0 [facility] Blood erythrocytes count (nu mber/volume)Ordered By: Dr. Joseph on 02-26-2023 RBC (Bld) [#/Vol] 5.26 10*6/uL 4.2-5.4 [facility] Blood hemoglobin measurement (mass/volume)Ordered By: Dr. Joseph on 02-26-2023 Hemoglobin (Bld) [Mass/Vol] 15.6 g/dL 12.0-15.0 [facility] Blood platelet mean volumeOr dered By: Dr. Joseph on 02-26-2023 Platelet mean volume (Bld) [Entitic vol] 9.9 fL 6.2-12.0 [facility] CBC panel Auto (Bld)on 02-26 Erythrocyte distribution width (RBC) [Ratio] 12.7 % Normal 11.5-15.0 [facility] Comment on above: Order Comment: Speci men Type: BLOOD SPECIMEN Ordering Facility: [facility] Address: [address] [place] [id number] Performed By: #### 5 8410-2 #### [facility] CLIA [id number] [address] Hematocrit (Bld) [Volume fraction] 44.9 % Normal 36.0-46.0 [facility] Comment on above: Order Comment: Speci men Type: BLOOD SPECIMEN Ordering Facility: [facility] Address: [address] [place] [address] Performed By: #### 5 8410-2 #### [facility] CLIA [id number] [address] Hemoglobin (Bld) [Mass/Vol] 15.0 g/dL Normal 11.5-15.5 [facility] Comment on above: Order Comment: Speci men Type: BLOOD SPECIMEN Ordering Facility: [facility] Address: [address] [place] [address] Performed By: #### 5 8410-2 #### [facility] CLIA [id number] [address] MCH (RBC) [Entitic mass] 29.4 pg Normal 26.0-34.0 [facility] Comment on above: Order Comment: Speci men Type: BLOOD SPECIMEN Ordering Facility: [facility] Address: [address] [place] [address] Performed By: #### 5 8410-2 #### [facility] CLIA [id number] [address] MCHC (RBC) [Mass/Vol] 33.4 g/dL Normal 30.5-36.0 [facility] Comment on above: Order Comment: Speci men Type: BLOOD SPECIMEN Ordering Facility: [facility] Address: [address] [place] [address] Performed By: #### 5 8410-2 #### [facility] CLIA [id number] [address] [place] MCV (RBC) [Entitic vol] 88.0 fL Normal 80.0-100.0 [facility] Comment on above: Order Comment: Speci men Type: BLOOD SPECIMEN Ordering Facility: [facility] Address: [address] [address] Performed By: #### 5 8410-2 #### [facility] CLIA [id number] [address] [place] Nucleated RBC (Bld) [#/Vol] 10*3/uL Normal <0.01 [facility] Comment on above: Order Comment: Speci men Type: BLOOD SPECIMEN Ordering Facility: [facility] Address: [address] [address] Performed By: #### 5 8410-2 #### [facility] CLIA [id number] 1 [place] [address] [place] Platelet mean volume (Bld) [Entitic vol] 9.6 fL Normal 9.0-12.7 [facility] Comment on above: Order Comment: Speci men Type: BLOOD SPECIMEN Ordering Facility: [facility] Address: [address] [address] Performed By: #### 5 8410-2 #### [facility] CLIA [id number] [address] [place] Platelets (Bld) [#/Vol] 284 10*3/uL Normal 150-400 [facility] Comment on above: Order Comment: Speci men Type: BLOOD SPECIMEN Ordering Facility: [facility] Address: [address] [address] Performed By: #### 5 8410-2 #### [facility] CLIA [id number] [address] [place] RBC (Bld) [#/Vol] 5.10 10*6/uL Normal 3.90-5.20 [facility] Comment on above: Order Comment: Speci men Type: BLOOD SPECIMEN Ordering Facility: [facility] Address: [address] [address] Performed By: #### 5 8410-2 #### [facility] CLIA [id number] 1 [place] [address] [place] WBC (Bld) [#/Vol] 8.04 10*3/uL Normal 3.70-11.00 [facility] Comment on above: Order Comment: Speci men Type: BLOOD SPECIMEN Ordering Facility: [facility] Address: [place] [address] Performed By: #### 5 8410-2 #### [facility] CLIA [id number] 1 [place] [address] [place] Determination of erythrocyte mean corpuscular volume (MCV)Ordered By: Dr. Joseph on 02-26-2023 MCV (RBC) [Entitic vol] 91.1 fL 81-99 [facility] HISTORY PHYSICALon HISTORY PHYSICAL HNO ID: [id number] Author: Davie Rey MD Service: Hospital Medicine Author Type: Physician Type: HANDP Filed: 02/26/2023 6:32 PM Note Text: Hospital Medicine HPI Patient Name: Vishal George Admission Date: 02/26/2023 Reason For Admission:Ventricula r tachyarrhythmia (HCC) IMPRESSION AND PLAN: Principal Problem: Ventricular tachyarrhythmia (HCC) Active Problems: Coronary artery disease involving [place] coronary artery Hypertension Nicotine use disorder, F17.2 Acute on chronic combined systolic and diastolic CHF (congestive heart failure) (HCC) Tobacco abuse Resolved Problems: * No resolved hospital problems. * Active Hospital Problems Diagnosis Ventricular tachyarrhythmia (HCC) Nicotine use disorder, F17.2 Acute on chronic combined systolic and diastolic CHF (congestive heart failure) (HCC) Tobacco abuse Hypertension Coronary artery disease involving [place] coronary artery 1. Acute on chronic combined [...] CAD status post stent who presented to [facility] a few days ago for severe [...] so decision was to transfer her to [facility] for ICD evaluation as that was [...] OSCOPY TRANS (more content not included)... Normal [facility] Hematocrit Auto (Bld) [Volum e fraction]Ordered By: Dr. Joseph on 02-26-2023 Hematocrit (Bld) [Volume fraction] 47.9 % 37-47 [facility] Laboratory - Chemistry and C hemistry - challengeOrdered By: Dr. Joseph on 02-26-2023 ALP [Catalytic activity/Vol] 76 U/L 45-117 [facility] ALT [Catalytic activity/Vol] 23 U/L 13-56 [facility] CO2 [Moles/Vol] 30.0 mmol/L 21.0-32.0 [facility] Globulin (S) [Mass/Vol] 3.5 g/dL 2.2-4.2 [facility] Urea nitrogen/Creatinine [Mass ratio] 20.8 mg/mg 10-20 [facility] Laboratory - Hematology and Cell countsOrdered By: Dr. Joseph on 02-26-2023 Erythrocyte distribution width (RBC) [Entitic vol] 42.2 fL 35.1-43.9 [facility] Erythrocyte distribution width (RBC) [Ratio] 12.6 % 11.6-14.6 [facility] MCH (RBC) [Entitic mass] 29.7 pg 27.0-32.0 [facility] MCHC Auto (RBC) [Mass/Vol]Or dered By: Dr. Joseph on 02-26-2023 MCHC (RBC) [Mass/Vol] 32.6 g/dL 32-36 [facility] No Panel InformationOrdered By: Dr. Joseph on 02-26-2023 Estimated Creatinine Clearance Calc 73.86 ml/min [facility] Estimated GFR (MDRD) Amer 115 mL/min >60 [facility] Comment on above: GFR Calc Estimated GFR (MDRD) Non-Af Amer 95 mL/min >60 [facility] Comment on above: Non- GFR Calc Platelets bldOrdered By: Dr. Joseph on 02-26-2023 Platelets (Bld) [#/Vol] 293 10*3/uL 150-450 [facility] Serum or plasma albumin virgie urement (mass/volume)Ordered By: Dr. Joseph on 02-26-2023 Albumin [Mass/Vol] 3.6 g/dL 3.2-5.0 [facility] Serum or plasma albumin/glob ulin mass ratioOrdered By: Dr. Joseph on 02-26-2023 Albumin/Globulin [Mass ratio] 1.0 {ratio} 0.9-2.4 [facility] Serum or plasma calcium virgie urement (mass/volume)Ordered By: Dr. Joseph on 02-26-2023 Calcium [Mass/Vol] 9.2 mg/dL 8.5-10.1 [facility] Serum or plasma creatinine m easurement (mass/volume)Ordered By: Dr. Joseph on 02-26-2023 Creatinine [Mass/Vol] 0.67 mg/dL 0.55-1.02 [facility] Comment on above: The validity of the calculated GFR & GFRAA in patients over 70 years has not been determined. Clinical correlation is essential. Serum or plasma urea nitroge n measurement (mass/volume)Ordered By: Dr. Joseph on 02-26-2023 Urea nitrogen [Mass/Vol] 14 mg/dL 7-18 [facility] Thin prep Papanicolaou smear with manual screeningOrdered By: Dr. Joseph on 02-26-2023 Thin prep Papanicolaou smear with manual screening 16 U/L 15- [facility] Thin prep Papanicolaou smear with manual screening 5 5-15 [facility] Laboratory - Chemistry and C hemistry - challengeOrdered By: Dr. Brunner on 02-25-2023 Magnesium [Mass/Vol] 1.9 mg/dL 1.6-2.6 [facility] No Panel InformationOrdered By: Dr. Brunner on 02-25-2023 Activated Clotting Time 251 sec 74-137 [facility] Absolute lymphocyte countOrd ered By: Dr. Brunner on 02-24-2023 Lymphocytes Auto (Unsp spec) [#/Vol] 1.61 10*3/uL 0.83-4.51 [facility] Basophil percentageOrdered B y: Dr. Brunner on 02-24-2023 Basophils/100 WBC (Bld) 1.0 % 0-1 [facility] Eosinophils/100 WBC (Bld) 2.0 % 0-5 [facility] Neutrophils (Bld) [#/Vol] 4.4 10*3/uL 2.0-7.7 [facility] Neutrophils/100 WBC (Bld) 63.9 % 47-70 [facility] Blood lymphocytes/100 leukoc ytesOrdered By: Dr. Brunner on 02-24-2023 Lymphocytes/100 WBC (Bld) 23.2 % 19-41 [facility] Blood monocytes/100 leukocyt esOrdered By: Dr. Brunner on 02-24-2023 Monocytes/100 WBC (Bld) 9.5 % 0-10 [facility] Laboratory - Hematology and Cell countsOrdered By: Dr. Brunner on 02-24-2023 Immature granulocytes/100 WBC (Bld) 0.400 % 0.0-0.9 [facility] Comment on above: IG% - Immature Granu locytes (promyelocytes, myelocytes and metamyelocytes) > 1% indicates that a LEFT SHIFT is Present. Nucleated RBC/100 WBC (Bld) [Ratio] 0 % 0-5 [facility] No Panel InformationOrdered By: Dr. Brunner on 02-24-2023 Thyroid Stimulating Hormone (TSH) 1.66 uIU/mL 0.358-3.74 [facility] Basophil percentageOrdered B y: Dr. Brunner on 02-23-2023 Cholesterol [Mass/Vol] 187 mg/dL <200 [facility] Comment on above: <200 mg/dL Desirable 200-240 mg/dL Borderline >240 mg/dL High Risk Triglyceride [Mass/Vol] 62 mg/dL <199 [facility] Comment on above: The drugs N-Acetylcy steine and Metamizole may falsely depress this assay.Serum Triglycerides Reference Interval Normal <150 mg/dL Borderline high 150 - 199 mg/dL High 200 - 499 mg/dL Very High > or = 500 mg/dL Laboratory - Chemistry and C hemistry - challengeOrdered By: Dr. Brunner on 02-23-2023 Natriuretic peptide B (Bld) [Mass/Vol] 1392.6 pg/mL 0-100 [facility] No Panel InformationOrdered By: Julio César Arndt on 02-23-2023 Streptococcus pneumoniae Antigen ([facility] No Panel InformationOrdered By: Dr. Arndt on 02-23-2023 Streptococcus pneumoniae Antigen ([facility] Serum or plasma cholesterol in HDL measurement (mass/volume)Ordered By: Dr. Brunner on 02-23-2023 Cholesterol in HDL [Mass/Vol] 40 mg/dL >40 [facility] Comment on above: The drugs N-Acetylcy steine and Metamizole may falsely depress this assay. Reference Range HDL <40 mg/dL Low HDL Cholesterol HDL >or= 60 mg/dL High HDL Cholesterol Serum or plasma cholesterol in VLDL measurement (mass/volume)Ordered By: Dr. Brunner on 02-23-2023 Cholesterol in VLDL [Mass/Vol] 12 mg/dL 5-40 [facility] Serum or plasma low density lipoprotein (LDL) cholesterol measurement (mass/volume)Ordered By: Dr. Brunner on 02-23-2023 Cholesterol in LDL [Mass/Vol] 135 mg/dL 0-130 [facility] Absolute lymphocyte countOrd ered By: Dr. Koehler on 02-22-2023 Lymphocytes Auto (Unsp spec) [#/Vol] 1.46 10*3/uL 0.83-4.51 [facility] Basophil percentageOrdered B y: Dr. Arndt on 02-22-2023 Basophil percentage 4.2 mg/dL 2.5-4.9 [facility] Basophil percentageOrdered B y: Dr. Burris on 02-22-2023 Lactate [Moles/Vol] 1.8 mmol/L 0.4-2.0 [facility] Lactate [Moles/Vol] 2.8 mmol/L 0.4-2.0 [facility] Comment on above: Critical Result(s) C alled at: 18:21:29 02/22/2023 by: SAMEERA CARRILLO TO MAYTE DUNNE. Results read back by same. Basophil percentageOrdered B y: Dr. Koehler on 02-22-2023 Basophils/100 WBC (Bld) 1.5 % 0-1 [facility] Bilirubin [Mass/Vol] 0.40 mg/dL 0.20-1.00 [facility] Comment on above: For patients on eltr ombopag therapy, use of Dimension Mercedes TBIL is not recommended. Chloride [Moles/Vol] 104 mmol/L 98-107 [facility] Eosinophils/100 WBC (Bld) 4.7 % 0-5 [facility] Glucose [Mass/Vol] 138 mg/dL 74-106 [facility] Comment on above: Fasting Glucose resu lt greater than or equal to 126 mg/dL suggests DIABETES MELLITUS per A.D.A. criteria. Neutrophils (Bld) [#/Vol] 7.0 10*3/uL 2.0-7.7 [facility] Neutrophils/100 WBC (Bld) 71.0 % 47-70 [facility] Potassium [Moles/Vol] 4.0 mmol/L 3.5-5.1 [facility] Protein [Mass/Vol] 7.7 g/dL 6.4-8.2 [facility] Sodium [Moles/Vol] 141 mmol/L 136-145 [facility] WBC (Bld) [#/Vol] 9.8 10*3/uL 4.4-11.0 [facility] Blood erythrocytes count (nu mber/volume)Ordered By: Dr. Koehler on 02-22-2023 RBC (Bld) [#/Vol] 5.30 10*6/uL 4.2-5.4 [facility] Blood hemoglobin measurement (mass/volume)Ordered By: Dr. Koehler on 02-22-2023 Hemoglobin (Bld) [Mass/Vol] 15.8 g/dL 12.0-15.0 [facility] Blood lymphocytes/100 leukoc ytesOrdered By: Dr. Koehler on 02-22-2023 Lymphocytes/100 WBC (Bld) 14.9 % 19-41 [facility] Blood monocytes/100 leukocyt esOrdered By: Dr. Koehler on 02-22-2023 Monocytes/100 WBC (Bld) 7.4 % 0-10 [facility] Blood platelet mean volumeOr dered By: Dr. Koehler on 02-22-2023 Platelet mean volume (Bld) [Entitic vol] 10.2 fL 6.2-12.0 [facility] Determination of erythrocyte mean corpuscular volume (MCV)Ordered By: Dr. Koehler on 02-22-2023 MCV (RBC) [Entitic vol] 93.2 fL 81-99 [facility] Hematocrit Auto (Bld) [Volum e fraction]Ordered By: Dr. Koehler on 02-22-2023 Hematocrit (Bld) [Volume fraction] 49.4 % 37-47 [facility] Laboratory - Chemistry and C hemistry - challengeOrdered By: Dr. Koehler on 05-12-2023 ALP [Catalytic activity/Vol] 80 U/L 45-117 [facility] ALT [Catalytic activity/Vol] 27 U/L 13-56 [facility] CO2 [Moles/Vol] 31.0 mmol/L 21.0-32.0 [facility] Globulin (S) [Mass/Vol] 3.6 g/dL 2.2-4.2 [facility] Lipase [Catalytic activity/Vol] 39 U/L 13-75 [facility] Comment on above: Please note:LIPASE r evised reference range effective 23. New Lipase methodology. Expected to produce lower values than the previous assay method. NEW Reference Range: 13 - 75 U/L Urea nitrogen/Creatinine [Mass ratio] 14.9 mg/mg 10-20 [facility] Laboratory - Hematology and Cell countsOrdered By: Dr. Koehler on 02-22-2023 Erythrocyte distribution width (RBC) [Entitic vol] 44.7 fL 35.1-43.9 [facility] Erythrocyte distribution width (RBC) [Ratio] 13.1 % 11.6-14.6 [facility] Immature granulocytes/100 WBC (Bld) 0.500 % 0.0-0.9 [facility] Comment on above: IG% - Immature Granu locytes (promyelocytes, myelocytes and metamyelocytes) > 1% indicates that a LEFT SHIFT is Present. MCH (RBC) [Entitic mass] 29.8 pg 27.0-32.0 [facility] Nucleated RBC/100 WBC (Bld) [Ratio] 0 % 0-5 [facility] Laboratory - Microbiology an d Antimicrobial susceptibilityOrdered By: Julio César Arndt on 02-22-2023 Bacteria identified Cx Nom (Bld) No growth in 5 days. [facility] MCHC Auto (RBC) [Mass/Vol]Or dered By: Dr. Koehler on 02-22-2023 MCHC (RBC) [Mass/Vol] 32.0 g/dL 32-36 [facility] No Panel InformationOrdered By: Dr. Burris on 02-22-2023 Troponin I High Sensitivity 15 pg/mL 3.0-54.0 [facility] Comment on above: Please Note: New Namrata t Units and Gender Specific Reference Ranges. For more information see Policy Stat Procedure Mercedes High Sensitivity Troponin (TNIH) and attachments. No Panel InformationOrdered By: Dr. Koehler on 02-22-2023 Estimated Creatinine Clearance Calc 56.88 ml/min [facility] Estimated GFR (MDRD) Amer 85 mL/min >60 [facility] Comment on above: GFR Calc Estimated GFR (MDRD) Non-Af Amer 70 mL/min >60 [facility] Comment on above: Non- GFR Calc Platelets bldOrdered By: Dr. Koehler on 02-22-2023 Platelets (Bld) [#/Vol] 331 10*3/uL 150-450 [facility] Serum or plasma albumin virgie urement (mass/volume)Ordered By: Dr. Koehler on 02-22-2023 Albumin [Mass/Vol] 4.1 g/dL 3.2-5.0 [facility] Serum or plasma albumin/glob ulin mass ratioOrdered By: Dr. Koehler on 02-22-2023 Albumin/Globulin [Mass ratio] 1.1 {ratio} 0.9-2.4 [facility] Serum or plasma calcium virgie urement (mass/volume)Ordered By: Dr. Koehler on 02-22-2023 Calcium [Mass/Vol] 10.1 mg/dL 8.5-10.1 [facility] Serum or plasma creatinine m easurement (mass/volume)Ordered By: Dr. Koehler on 02-22-2023 Creatinine [Mass/Vol] 0.87 mg/dL 0.55-1.02 [facility] Comment on above: The validity of the calculated GFR & GFRAA in patients over 70 years has not been determined. Clinical correlation is essential. Serum or plasma urea nitroge n measurement (mass/volume)Ordered By: Dr. Koehler on 02-22-2023 Urea nitrogen [Mass/Vol] 13 mg/dL 7-18 [facility] Thin prep Papanicolaou smear with manual screeningOrdered By: Dr. Koehler on 02-22-2023 Thin prep Papanicolaou smear with manual screening 20 U/L 15-37 [facility] Thin prep Papanicolaou smear with manual screening 6 5-15 [facility] Whole blood hemoglobin A1c/t otal hemoglobin ratio (mass fraction)Ordered By: Dr. Brunner on 02-22-2023 HbA1c (Bld) [Mass fraction] 5.7 % 3.8-5.6 [facility] Comment on above: Normal < 5.7 % Predi abetic 5.7 - 6.4 % Diabetic >or= 6.5 % Please note range changes. Basophil percentageOrdered B y: Ricki Griffin on 02-08-2023 Bilirubin [Mass/Vol] 0.30 mg/dL 0.20-1.00 [facility] Comment on above: For patients on eltr ombopag therapy, use of Dimension Mercedes TBIL is not recommended. Chloride [Moles/Vol] 100 mmol/L 98-107 [facility] Glucose [Mass/Vol] 105 mg/dL 74-106 [facility] Comment on above: Fasting Glucose resu lt from 100 to 125 mg/dL suggests IMPAIRED HOMEOSTASIS per A.D.A. criteria. Potassium [Moles/Vol] 3.8 mmol/L 3.5-5.1 [facility] Protein [Mass/Vol] 7.3 g/dL 6.4-8.2 [facility] Sodium [Moles/Vol] 134 mmol/L 136-145 [facility] WBC (Bld) [#/Vol] 6.4 10*3/uL 4.4-11.0 [facility] Blood erythrocytes count (nu mber/volume)Ordered By: Ricki Griffin on 02-08-2023 RBC (Bld) [#/Vol] 5.25 10*6/uL 4.2-5.4 [facility] Blood hemoglobin measurement (mass/volume)Ordered By: Ricki Griffin on 02-08-2023 Hemoglobin (Bld) [Mass/Vol] 15.9 g/dL 12.0-15.0 [facility] Blood platelet mean volumeOr dered By: Ricki Griffin on 02-08-2023 Platelet mean volume (Bld) [Entitic vol] 9.4 fL 6.2-12.0 [facility] Determination of erythrocyte mean corpuscular volume (MCV)Ordered By: Ricki Griffin on 02-08-2023 MCV (RBC) [Entitic vol] 91.4 fL 81-99 [facility] Hematocrit Auto (Bld) [Volum e fraction]Ordered By: Ricki Griffin on 02-08-2023 Hematocrit (Bld) [Volume fraction] 48.0 % 37-47 [facility] Laboratory - Chemistry and C hemistry - challengeOrdered By: Ricki Griffin on 02-08-2023 ALP [Catalytic activity/Vol] 82 U/L 45-117 [facility] ALT [Catalytic activity/Vol] 29 U/L 13-56 [facility] CO2 [Moles/Vol] 30.0 mmol/L 21.0-32.0 [facility] Globulin (S) [Mass/Vol] 3.4 g/dL 2.2-4.2 [facility] Urea nitrogen/Creatinine [Mass ratio] 26.5 mg/mg 10-20 [facility] Laboratory - Hematology and Cell countsOrdered By: Ricki Griffin on 02-08-2023 Erythrocyte distribution width (RBC) [Entitic vol] 45.6 fL 35.1-43.9 [facility] Erythrocyte distribution width (RBC) [Ratio] 13.5 % 11.6-14.6 [facility] MCH (RBC) [Entitic mass] 30.3 pg 27.0-32.0 [facility] MCHC Auto (RBC) [Mass/Vol]Or dered By: Ricki Griffin on 02-08-2023 MCHC (RBC) [Mass/Vol] 33.1 g/dL 32-36 [facility] No Panel InformationOrdered By: Ricki Griffin on 02-08-2023 Estimated GFR (MDRD) Amer 100 mL/min >60 [facility] Comment on above: GFR Calc Estimated GFR (MDRD) Non-Af Amer 83 mL/min >60 [facility] Comment on above: Non- GFR Calc Troponin I High Sensitivity 32 pg/mL 3.0-54.0 [facility] Comment on above: Please Note: New Namrata t Units and Gender Specific Reference Ranges. For more information see Policy Stat Procedure Mercedes High Sensitivity Troponin (TNIH) and attachments. Platelets bldOrdered By: Godfrey Griffin on 02-08-2023 Platelets (Bld) [#/Vol] 299 10*3/uL 150-450 [facility] Serum or plasma C reactive p rotein measurement (mass/volume)Ordered By: Ricki Griffin on 02-08-2023 CRP [Mass/Vol] mg/L 0.0-3.0 [facility] Comment on above: C-Reactive Protein ( CRP) provides useful information for thediagnosis, therapy and monitoring of inflammatory processesand associated diseases. For the evaluation of Relative Riskfor Cardiovascular Disease, a High Sensitivity CRP (HSCRP)should be ordered. Serum or plasma albumin virgie urement (mass/volume)Ordered By: Ricki Griffin on 02-08-2023 Albumin [Mass/Vol] 3.9 g/dL 3.2-5.0 [facility] Serum or plasma albumin/glob ulin mass ratioOrdered By: Ricki Griffin on 02-08-2023 Albumin/Globulin [Mass ratio] 1.1 {ratio} 0.9-2.4 [facility] Serum or plasma calcium virgie urement (mass/volume)Ordered By: Ricki Griffin on 02-08-2023 Calcium [Mass/Vol] 9.6 mg/dL 8.5-10.1 [facility] Serum or plasma creatinine m easurement (mass/volume)Ordered By: Ricki Griffin on 02-08-2023 Creatinine [Mass/Vol] 0.76 mg/dL 0.55-1.02 [facility] Comment on above: The validity of the calculated GFR & GFRAA in patients over 70 years has not been determined. Clinical correlation is essential. Serum or plasma urea nitroge n measurement (mass/volume)Ordered By: Ricki Griffin on 02-08-2023 Urea nitrogen [Mass/Vol] 20 mg/dL 7-18 [facility] Thin prep Papanicolaou smear with manual screeningOrdered By: Ricki Griffin on 02-08-2023 Thin prep Papanicolaou smear with manual screening 17 U/L 15-37 [facility] Thin prep Papanicolaou smear with manual screening 4 5-15 [facility] RESCVIDon 09-23-2022 Adenovirus Not detected Normal Not Detected [facility] Comment on above: Performed By: #### R ESCVID #### [place] [address] Bordetella Parapertussis Not detected Normal Not Detected [facility] Comment on above: Performed By: #### R ESCVID #### [facility] [address] [place] [id number] Bordetella Pertussis Not detected Normal Not Detected [facility] Comment on above: Performed By: #### R ESCVID #### [facility] [address] [place] [id number] Chlamydophila pneumoniae Not detected Normal Not Detected [facility] Comment on above: Performed By: #### R ESCVID #### [place] [address] Coronavirus 229E (Not COVID-19) Not detected Normal Not Detected [facility] Comment on above: Performed By: #### R ESCVID #### [place] [address] Coronavirus HKU1 (Not COVID-19) Not detected Normal Not Detected [facility] Comment on above: Performed By: #### R ESCVID #### [place] [address] Coronavirus NL63 (Not COVID-19) Not detected Normal Not Detected [facility] Comment on above: Performed By: #### R ESCVID #### [place] [address] Coronavirus OC43 (Not COVID-19) Not detected Normal Not Detected [facility] Comment on above: Performed By: #### R ESCVID #### [place] [address] Human Metapneumovirus Not detected Normal Not Detected [facility] [place] Comment on above: Performed By: #### R ESCVID #### [place] [id number] Influenza A Not detected Normal Not Detected [facility] Comment on above: Performed By: #### R ESCVID #### [place] [address] Influenza B Not detected Normal Not Detected [facility] Comment on above: Performed By: #### R ESCVID #### [facility] [address] [place] [address] Mycoplasma pneumoniae Not detected Normal Not Detected [facility] Comment on above: Performed By: #### R ESCVID #### [facility] [address] [place] [address] Parainfluenza 1 Not detected Normal Not Detected [facility] Comment on above: Performed By: #### R ESCVID #### [facility] [address] [place] [address] Parainfluenza 2 Not detected Normal Not Detected [facility] Comment on above: Performed By: #### R ESCVID #### [facility] [address] [place] [address] Parainfluenza 3 Not detected Normal Not Detected [facility] Comment on above: Performed By: #### R ESCVID #### [facility] [address] [place], [place] [id number] Parainfluenza 4 Not detected Normal Not Detected [facility] Comment on above: Performed By: #### R ESCVID #### [facility] [address] [place] [address] Respiratory Syncytial Virus Not detected Normal Not Detected [facility] Comment on above: Performed By: #### R ESCVID #### [address] [address] Rhinovirus/Enterovirus Detected Abnormal Not Detected [facility] [place] Comment on above: Performed By: #### R ESCVID #### [place] [id number] SARS-CoV-2 (COVID-19) RNA FERCHO+probe Ql (Unsp spec) Not detected Normal Not Detected [facility] Comment on above: Result Comment: This test is being used under the FDA EUA procedure. This assay has been validated in the [facility] for use with nasopharyngeal specimens in [facility]. If a non-validated specimen or test collection [...] public health authorities. Performed By: #### R [facility] #### [place] [address] LABORATORYOrdered By: Jere Gunderson on 09-21-2022 Adenovirus DNA FERCHO+non-probe Ql (Nph) Not Detected *NA* (09/21/22 5:46 PM) Invalid Interpretation Code Not Detected AH Auto Viro/Sero SS B. parapertussis [id number] DNA FERCHO+non-probe Ql (Nph) Not Detected *NA* [...] AH Auto Viro/Sero SS JON SCREENINGon 08-14-2022 [facility] SURGICAL PATHOLOGYon 022 Case Report Surgical Pathology Report Case: [id number] Authorizing Provider: Sony Cedeño MD Collected: 08/09/2022 11:36 AM Ordering Location: Ambulatory Surgery Received: 08/09/2022 04:53 PM Pathologist: Sony Prater MD Specimens: A) - DUODENUM BIOPSY B) - ANTRUM (STOMACH) BIOPSY, Antral bx for H/H C) - ESOPHAGUS BIOPSY, distal esophagus bx [facility] FINAL DIAGNOSIS A. Duodenum, biopsy: - Duodenal mucosa with no significant pathologic abnormality. B. Stomach, biopsy: - Gastric mucosa with no significant pathologic abnormality. C. Distal esophagus, biopsy: - Squamous mucosa with mild reactive changes. [facility] Gross Description A. DUODENUM BIOPSY Received in [...] in one cassette. Gross examination performed at [facility], [address] [place] [address] JT 08/09/2022 11:51 PM [facility] Performing Lab Diagnostic interpretation performed at [facility], [address] [place] [address] CLIA# [id number] Passenger Service Manager: Bart Madsen M.D. [facility] EGD DIAGNOSTICon 08-09-2022 [facility] Absolute lymphocyte countOrd ered By: Dr. Rain on 07-14-2022 Lymphocytes Auto (Unsp spec) [#/Vol] 1.11 10*3/uL 0.83-4.51 [facility] Basophil percentageOrdered B y: Dr. Rain on 07-14-2022 Basophils/100 WBC (Bld) 0.7 % 0-1 [facility] Bilirubin [Mass/Vol] 0.90 mg/dL 0.20-1.00 [facility] Comment on above: For patients on eltr ombopag therapy, use of Dimension Mercedes TBIL is not recommended. Chloride [Moles/Vol] 103 mmol/L 98-107 [facility] Eosinophils/100 WBC (Bld) 0.3 % 0-5 [facility] Glucose [Mass/Vol] 165 mg/dL 74-106 [facility] Comment on above: Fasting Glucose resu lt greater than or equal to 126 mg/dL suggests DIABETES MELLITUS per A.D.A. criteria. Neutrophils (Bld) [#/Vol] 8.0 10*3/uL 2.0-7.7 [facility] Neutrophils/100 WBC (Bld) 78.8 % 47-70 [facility] Potassium [Moles/Vol] 3.3 mmol/L 3.5-5.1 [facility] Protein [Mass/Vol] 8.2 g/dL 6.4-8.2 [facility] Sodium [Moles/Vol] 140 mmol/L 136-145 [facility] WBC (Bld) [#/Vol] 10.2 10*3/uL 4.4-11.0 [facility] Blood erythrocytes count (nu mber/volume)Ordered By: Dr. Rain on 07-14-2022 RBC (Bld) [#/Vol] 5.25 10*6/uL 4.2-5.4 [facility] Blood hemoglobin measurement (mass/volume)Ordered By: Dr. Rain on 07-14-2022 Hemoglobin (Bld) [Mass/Vol] 15.8 g/dL 12.0-15.0 [facility] Blood lymphocytes/100 leukoc ytesOrdered By: Dr. Rain on 07-14-2022 Lymphocytes/100 WBC (Bld) 10.9 % 19-41 [facility] Blood monocytes/100 leukocyt esOrdered By: Dr. Rain on 07-14-2022 Monocytes/100 WBC (Bld) 8.8 % 0-10 [facility] Blood platelet mean volumeOr dered By: Dr. Rain on 07-14-2022 Platelet mean volume (Bld) [Entitic vol] 9.9 fL 6.2-12.0 [facility] Determination of erythrocyte mean corpuscular volume (MCV)Ordered By: Dr. Rain on 07-14-2022 MCV (RBC) [Entitic vol] 87.2 fL 81-99 [facility] Hematocrit Auto (Bld) [Volum e fraction]Ordered By: Dr. Rain on 07-14-2022 Hematocrit (Bld) [Volume fraction] 45.8 % 37-47 [facility] Laboratory - Chemistry and C hemistry - challengeOrdered By: Dr. Rain on 07-14-2022 ALP [Catalytic activity/Vol] 90 U/L 45-117 [facility] ALT [Catalytic activity/Vol] 31 U/L 13-56 [facility] CO2 [Moles/Vol] 24.0 mmol/L 21.0-32.0 [facility] Globulin (S) [Mass/Vol] 3.6 g/dL 2.2-4.2 [facility] Lipase [Catalytic activity/Vol] 108 U/L 73-393 [facility] Urea nitrogen/Creatinine [Mass ratio] 15.2 mg/mg 10-20 [facility] Laboratory - Hematology and Cell countsOrdered By: Dr. Rain on 07-14-2022 Erythrocyte distribution width (RBC) [Entitic vol] 40.8 fL 35.1-43.9 [facility] Erythrocyte distribution width (RBC) [Ratio] 12.8 % 11.6-14.6 [facility] Immature granulocytes/100 WBC (Bld) 0.500 % 0.0-0.9 [facility] Comment on above: IG% - Immature Granu locytes (promyelocytes, myelocytes and metamyelocytes) > 1% indicates that a LEFT SHIFT is Present. MCH (RBC) [Entitic mass] 30.1 pg 27.0-32.0 [facility] Nucleated RBC/100 WBC (Bld) [Ratio] 0 % 0-5 [facility] MCHC Auto (RBC) [Mass/Vol]Or dered By: Dr. Rain on 07-14-2022 MCHC (RBC) [Mass/Vol] 34.5 g/dL 32-36 [facility] No Panel InformationOrdered By: Dr. Rain on 07-14-2022 Estimated Creatinine Clearance Calc 47.79 ml/min [facility] Estimated GFR (MDRD) Amer 74 mL/min >60 [facility] Comment on above: GFR Calc Estimated GFR (MDRD) Non-Af Amer 61 mL/min >60 [facility] Comment on above: Non- GFR Calc Platelets bldOrdered By: Dr. Rain on 07-14-2022 Platelets (Bld) [#/Vol] 334 10*3/uL 150-450 [facility] Serum or plasma albumin virgie urement (mass/volume)Ordered By: Dr. Rain on 07-14-2022 Albumin [Mass/Vol] 4.6 g/dL 3.2-5.0 [facility] Serum or plasma albumin/glob ulin mass ratioOrdered By: Dr. Rain on 07-14-2022 Albumin/Globulin [Mass ratio] 1.3 {ratio} 0.9-2.4 [facility] Serum or plasma calcium virgie urement (mass/volume)Ordered By: Dr. Rain on 07-14-2022 Calcium [Mass/Vol] 10.6 mg/dL 8.5-10.1 [facility] Serum or plasma creatinine m easurement (mass/volume)Ordered By: Dr. Rain on 07-14-2022 Creatinine [Mass/Vol] 0.99 mg/dL 0.55-1.02 [facility] Comment on above: The validity of the calculated GFR & GFRAA in patients over 70 years has not been determined. Clinical correlation is essential. Serum or plasma urea nitroge n measurement (mass/volume)Ordered By: Dr. Rain on 07-14-2022 Urea nitrogen [Mass/Vol] 15 mg/dL 7-18 [facility] Thin prep Papanicolaou smear with manual screeningOrdered By: Dr. Rain on 07-14-2022 Thin prep Papanicolaou smear with manual screening 23 U/L 15-37 [facility] Thin prep Papanicolaou smear with manual screening 13 5-15 [facility] Absolute lymphocyte countOrd ered By: Dr. Monae on 07-12-2022 Lymphocytes Auto (Unsp spec) [#/Vol] 1.10 10*3/uL 0.83-4.51 [facility] Basophil percentageOrdered B y: Dr. Monae on 07-12-2022 Basophil percentage 0 SEEN /hpf 0-5 [facility] Basophils/100 WBC (Bld) 0.5 % 0-1 [facility] Bilirubin [Mass/Vol] 0.60 mg/dL 0.20-1.00 [facility] Comment on above: For patients on eltr ombopag therapy, use of Dimension Mercedes TBIL is not recommended. Chloride [Moles/Vol] 105 mmol/L 98-107 [facility] Eosinophils/100 WBC (Bld) 0.7 % 0-5 [facility] Glucose [Mass/Vol] 170 mg/dL 74-106 [facility] Comment on above: Fasting Glucose resu lt greater than or equal to 126 mg/dL suggests DIABETES MELLITUS per A.D.A. criteria. Lactate [Moles/Vol] 2.0 mmol/L 0.4-2.0 [facility] Comment on above: Critical Result(s) C alled at: 12:36:42 07/12/2022 by: Lissette Prieto. To Cindy Lam RN (ER). Results read back by same. Neutrophils (Bld) [#/Vol] 7.4 10*3/uL 2.0-7.7 [facility] Neutrophils/100 WBC (Bld) 78.8 % 47-70 [facility] Potassium [Moles/Vol] 3.7 mmol/L 3.5-5.1 [facility] Protein [Mass/Vol] 8.1 g/dL 6.4-8.2 [facility] Sodium [Moles/Vol] 141 mmol/L 136-145 [facility] WBC (Bld) [#/Vol] 9.4 10*3/uL 4.4-11.0 [facility] Bilirubin Test strip Ql (U)O rdered By: Dr. Monae on 07-12-2022 Bilirubin Ql (U) Negative Negative [facility] Blood erythrocytes count (nu mber/volume)Ordered By: Dr. Monae on 07-12-2022 RBC (Bld) [#/Vol] 5.34 10*6/uL 4.2-5.4 [facility] Blood hemoglobin measurement (mass/volume)Ordered By: Dr. Monae on 07-12-2022 Hemoglobin (Bld) [Mass/Vol] 15.9 g/dL 12.0-15.0 [facility] Blood lymphocytes/100 leukoc ytesOrdered By: Dr. Monae on 07-12-2022 Lymphocytes/100 WBC (Bld) 11.8 % 19-41 [facility] Blood monocytes/100 leukocyt esOrdered By: Dr. Monae on 07-12-2022 Monocytes/100 WBC (Bld) 7.7 % 0-10 [facility] Blood platelet mean volumeOr dered By: Dr. Monae on 07-12-2022 Platelet mean volume (Bld) [Entitic vol] 9.4 fL 6.2-12.0 [facility] Determination of erythrocyte mean corpuscular volume (MCV)Ordered By: Dr. Monae on 07-12-2022 MCV (RBC) [Entitic vol] 89.3 fL 81-99 [facility] Hematocrit Auto (Bld) [Volum e fraction]Ordered By: Dr. Monae on 07-12-2022 Hematocrit (Bld) [Volume fraction] 47.7 % 37-47 [facility] Ketones Test strip Ql (U)Ord ered By: Dr. Monae on 07-12-2022 Ketones Ql (U) 5 mg/dl Negative [facility] Laboratory - Chemistry and C hemistry - challengeOrdered By: Dr. Monae on 07-12-2022 ALP [Catalytic activity/Vol] 95 U/L 45-117 [facility] ALT [Catalytic activity/Vol] 31 U/L 13-56 [facility] CO2 [Moles/Vol] 27.0 mmol/L 21.0-32.0 [facility] Globulin (S) [Mass/Vol] 3.7 g/dL 2.2-4.2 [facility] Lipase [Catalytic activity/Vol] 110 U/L 73-393 [facility] Urea nitrogen/Creatinine [Mass ratio] 12.6 mg/mg 10-20 [facility] Laboratory - Hematology and Cell countsOrdered By: Dr. Monae on 07-12-2022 Erythrocyte distribution width (RBC) [Entitic vol] 42.6 fL 35.1-43.9 [facility] Erythrocyte distribution width (RBC) [Ratio] 13.0 % 11.6-14.6 [facility] Immature granulocytes/100 WBC (Bld) 0.500 % 0.0-0.9 [facility] Comment on above: IG% - Immature Granu locytes (promyelocytes, myelocytes and metamyelocytes) > 1% indicates that a LEFT SHIFT is Present. MCH (RBC) [Entitic mass] 29.8 pg 27.0-32.0 [facility] Nucleated RBC/100 WBC (Bld) [Ratio] 0 % 0-5 [facility] MCHC Auto (RBC) [Mass/Vol]Or dered By: Dr. Monae on 07-12-2022 MCHC (RBC) [Mass/Vol] 33.3 g/dL 32-36 [facility] Mucus LM Ql (Urine sed)Order ed By: Dr. Monae on 07-12-2022 Mucus Ql (Urine sed) 0 SEEN /hpf [facility] Nitrite Test strip Ql (U)Ord ered By: Dr. Monae on 07-12-2022 Nitrite Ql (U) Negative Negative [facility] No Panel InformationOrdered By: Dr. Monae on 07-12-2022 Estimated Creatinine Clearance Calc 45.94 ml/min [facility] Estimated GFR (MDRD) Amer 70 mL/min >60 [facility] Comment on above: GFR Calc Estimated GFR (MDRD) Non-Af Amer 58 mL/min >60 [facility] Comment on above: Non- GFR Calc Platelets bldOrdered By: Dr. Monae on 07-12-2022 Platelets (Bld) [#/Vol] 322 10*3/uL 150-450 [facility] Protein Test strip Ql (U)Ord ered By: Dr. Monae on 07-12-2022 Protein Ql (U) Negative Negative [facility] Serum or plasma albumin virgie urement (mass/volume)Ordered By: Dr. Monae on 07-12-2022 Albumin [Mass/Vol] 4.4 g/dL 3.2-5.0 [facility] Serum or plasma albumin/glob ulin mass ratioOrdered By: Dr. Monae on 07-12-2022 Albumin/Globulin [Mass ratio] 1.2 {ratio} 0.9-2.4 [facility] Serum or plasma calcium virgie urement (mass/volume)Ordered By: Dr. Monae on 07-12-2022 Calcium [Mass/Vol] 10.1 mg/dL 8.5-10.1 [facility] Serum or plasma creatinine m easurement (mass/volume)Ordered By: Dr. Monae on 07-12-2022 Creatinine [Mass/Vol] 1.03 mg/dL 0.55-1.02 [facility] Comment on above: The validity of the calculated GFR & GFRAA in patients over 70 years has not been determined. Clinical correlation is essential. Serum or plasma urea nitroge n measurement (mass/volume)Ordered By: Dr. Monae on 07-12-2022 Urea nitrogen [Mass/Vol] 13 mg/dL 7-18 [facility] Squamous epithelial cells de tection in urine sediment by light microscopyOrdered By: Dr. Monae on 07-12-2022 Epithelial cells.squamous LM Ql (Urine sed) 0-5 SEEN /hpf 5-10 [facility] Thin prep Papanicolaou smear with manual screeningOrdered By: Dr. Monae on 07-12-2022 Thin prep Papanicolaou smear with manual screening 21 U/L 15-37 [facility] Thin prep Papanicolaou smear with manual screening 9 5-15 [facility] Urine blood detectionOrdered By: Dr. Monae on 07-12-2022 RBC Ql (U) 10 /ul Negative [facility] RBC Ql (U) 0-5 SEEN /hpf 0-5 [facility] Urine clarityOrdered By: Dr. Monae on 07-12-2022 Clarity (U) Clear Clear [facility] Urine color determinationOrd ered By: Dr. Monae on 07-12-2022 Color (U) Yellow Yellow [facility] Urine glucose detectionOrder ed By: Dr. Monae on 07-12-2022 Glucose Ql (U) Normal mg/dl Normal [facility] Urine leukocyte esterase det ection by dipstickOrdered By: Dr. Monae on 07-12-2022 Leukocyte esterase Test strip Ql (U) Negative Negative [facility] Urine pHOrdered By: Dr. Ann nails on 07-12-2022 pH (U) 7.0 [pH] 5.0 - 8.0 [facility] Urine sediment bacteria coun t by microscopy (number/high power field)Ordered By: Dr. Monae on 07-12-2022 Bacteria LM.HPF (Urine sed) [#/Area] 0 /[HPF] None Seen [facility] Urine specific gravity measu rementOrdered By: Dr. Monae on 07-12-2022 Specific gravity (U) [Rel density] 1.010 1.002-1.030 [facility] Urobilinogen Auto test strip Ql (U)Ordered By: Dr. Monae on 07-12-2022 Urobilinogen Ql (U) Normal mg/dl Normal [facility] Basophil percentageon 2021 Bilirubin [Mass/Vol] 0.40 mg/dL 0.20-1.00 [facility] Work Phone: Comment on above: For patients on eltr ombopag therapy, use of Dimension Mercedes TBIL is not recommended. Chloride [Moles/Vol] 102 mmol/L 98-107 [facility] Work Phone: [phone] Cholesterol [Mass/Vol] 160 mg/dL <200 [facility] Work Phone: Comment on above: <200 mg/dL Desirable 200-240 mg/dL Borderline >240 mg/dL High Risk Glucose [Mass/Vol] 102 mg/dL 74-106 [facility] Work Phone: [phone] Comment on above: Fasting Glucose resu lt from 100 to 125 mg/dL suggests IMPAIRED HOMEOSTASIS per A.D.A. criteria. Potassium [Moles/Vol] 4.0 mmol/L 3.5-5.1 [facility] Work Phone: [phone] Protein [Mass/Vol] 7.1 g/dL 6.4-8.2 [facility] Work Phone: [phone] Sodium [Moles/Vol] 137 mmol/L 136-145 [facility] Work Phone: [phone] Triglyceride [Mass/Vol] 141 mg/dL <199 [facility] Work Phone: Comment on above: The drugs N-Acetylcy steine and Metamizole may falsely depress this assay.Serum Triglycerides Reference Interval Normal <150 mg/dL Borderline high 150 - 199 mg/dL High 200 - 499 mg/dL Very High > or = 500 mg/dL WBC (Bld) [#/Vol] 5.8 10*3/uL 4.4-11.0 [facility] Work Phone: Blood erythrocytes count (nu mber/volume)on 03-31-2022 RBC (Bld) [#/Vol] 5.11 10*6/uL 4.2-5.4 [facility] Work Phone: [phone] Blood hemoglobin measurement (mass/volume)on 03-31-2022 Hemoglobin (Bld) [Mass/Vol] 15.2 g/dL 12.0-15.0 [facility] Work Phone: [phone] Blood platelet mean volumeon 03-31-2022 Platelet mean volume (Bld) [Entitic vol] 9.4 fL 6.2-12.0 [facility] Work Phone: [phone] Determination of erythrocyte mean corpuscular volume (MCV)on 03-31-2022 MCV (RBC) [Entitic vol] 88.5 fL 81-99 [facility] Work Phone: [phone] Hematocrit Auto (Bld) [Volum e fraction]on 03-31-2022 Hematocrit (Bld) [Volume fraction] 45.2 % 37-47 [facility] Work Phone: Laboratory - Chemistry and C hemistry - challengeon 03-31-2022 ALP [Catalytic activity/Vol] 98 U/L 45-117 [facility] Work Phone: ALT [Catalytic activity/Vol] 37 U/L 13-56 [facility] Work Phone: [phone] CO2 [Moles/Vol] 29.0 mmol/L 21.0-32.0 [facility] Work Phone: Globulin (S) [Mass/Vol] 3.5 g/dL 2.2-4.2 [facility] Work Phone: [phone] Urea nitrogen/Creatinine [Mass ratio] 17.1 mg/mg 10-20 [facility] Work Phone: [phone] Laboratory - Hematology and Cell countson 03-31-2022 Erythrocyte distribution width (RBC) [Entitic vol] 41.4 fL 35.1-43.9 [facility] Work Phone: [phone] Erythrocyte distribution width (RBC) [Ratio] 12.5 % 11.6-14.6 [facility] Work Phone: MCH (RBC) [Entitic mass] 29.7 pg 27.0-32.0 [facility] Work Phone: [phone] MCHC Auto (RBC) [Mass/Vol]on 03-31-2022 MCHC (RBC) [Mass/Vol] 33.6 g/dL 32-36 [facility] Work Phone: [phone] No Panel Informationon 03-31 Estimated GFR (MDRD) Amer 100 mL/min >60 [facility] Work Phone: Comment on above: GFR Calc Estimated GFR (MDRD) Non-Af Amer 82 mL/min >60 [facility] Work Phone: Comment on above: Non- GFR Calc Vitamin D 25-Hydroxy 47.8 ng/mL [facility] Work Phone: Comment on above: Vitamin D 25(OH) Sta tus Range Deficiency <20 ng/mL (50nmol/L) Insufficiency 20 - 30 ng/mL (50 - 75 nmol/L) Sufficiency 30 - 100 ng/mL (75 - 250 nmol/L) Toxicity >100 ng/mL (>250 nmol/L) Platelets bldon 03-31-2022 Platelets (Bld) [#/Vol] 307 10*3/uL 150-450 [facility] Work Phone: [phone] Serum or plasma albumin virgie urement (mass/volume)on 03-31-2022 Albumin [Mass/Vol] 3.6 g/dL 3.2-5.0 [facility] Work Phone: [phone] Serum or plasma albumin/glob ulin mass ratioon 03-31-2022 Albumin/Globulin [Mass ratio] 1.0 {ratio} 0.9-2.4 [facility] Work Phone: [phone] Serum or plasma calcium virgie urement (mass/volume)on 03-31-2022 Calcium [Mass/Vol] 8.9 mg/dL 8.5-10.1 [facility] Work Phone: [phone] Serum or plasma cholesterol in HDL measurement (mass/volume)on 03-31-2022 Cholesterol in HDL [Mass/Vol] 38 mg/dL >40 [facility] Work Phone: Comment on above: The drugs N-Acetylcy steine and Metamizole may falsely depress this assay. Reference Range HDL <40 mg/dL Low HDL Cholesterol HDL >or= 60 mg/dL High HDL Cholesterol Serum or plasma cholesterol in VLDL measurement (mass/volume)on 03-31-2022 Cholesterol in VLDL [Mass/Vol] 28 mg/dL 5-40 [facility] Work Phone: [phone] Serum or plasma creatinine m easurement (mass/volume)on 03-31-2022 Creatinine [Mass/Vol] 0.76 mg/dL 0.55-1.02 [facility] Work Phone: Comment on above: The validity of the calculated GFR & GFRAA in patients over 70 years has not been determined. Clinical correlation is essential. Serum or plasma low density lipoprotein (LDL) cholesterol measurement (mass/volume)on 03-31-2022 Cholesterol in LDL [Mass/Vol] 94 mg/dL 0-130 [facility] Work Phone: Serum or plasma urea nitroge n measurement (mass/volume)on 03-31-2022 Urea nitrogen [Mass/Vol] 13 mg/dL -18 [facility] Work Phone: [phone] Thin prep Papanicolaou smear with manual screeningon 03-31-2022 Thin prep Papanicolaou smear with manual screening 21 U/L 15-37 [facility] Work Phone: [phone] Thin prep Papanicolaou smear with manual screening 6 5-15 [facility] Work Phone: [phone] Vital Signs Date Time Vital Sign Value Performing Clinician Kelby ordoñez 01-06-2025 15:56-0400 Body height 157.48 cm Ricki Griffin NP-C Work Phone: [facility] 01-06-2025 15:56-0400 Body mass index (BMI) [Ratio] 32.7 kg/m2 Ricki Griffin NP-C Work Phone: [facility] 01-06-2025 15:56-0400 Body weight 81.19 kg Ricki Holbrookpkins GRIZZLYMAN-C Work Phone: [facility] 01-06-2025 15:56-0400 Diastolic blood pressure 78 mm[Hg] Ricki Holbrookpkins GRIZZLYMAN-C Work Phone: [facility] 01-06-2025 15:56-0400 Heart rate 69 /min Ricki [place] GRIZZLYMAN-C Work Phone: [facility] 01-06-2025 15:56-0400 Respiratory rate 18 /min Ricki Holbrookpkins GRIZZLYMAN-C Work Phone: [facility] 01-06-2025 15:56-0400 Systolic blood pressure 130 mm[Hg] Ricki Gaby GRIZZLYMAN-C Work Phone: [facility] 09-21-2024 15:26-0500 Body height 156.2 cm Aracelis Lozoya MD Work Phone: [facility] 09-21-2024 15:26-0500 Body mass index (BMI) [Ratio] 32.16 kg/m2 Aracelis Lozoya MD Work Phone: [facility] 09-21-2024 15:26-0500 Body weight 78.47 kg Aracelis Lozoya MD Work Phone: [facility] 09-21-2024 15:26-0500 Diastolic blood pressure 78 mm[Hg] Aracelis Lozoya MD Work Phone: [facility] 09-21-2024 15:26-0500 Systolic blood pressure 140 mm[Hg] Aracelis Lozoya MD Work Phone: [facility] 12-27-2023 11:51-0400 Body weight 73.48 kg Shay Teresa APRN.CNP Work Phone: [facility] 12-27-2023 11:51-0400 Diastolic blood pressure 67 mm[Hg] Shay Aurin BILLET DRILLER.JUNIOR LINUX ADMINISTRATOR Work Phone: [facility] 12-27-2023 11:51-0400 Heart rate 71 /min Shay Aurin BILLET DRILLER.JUNIOR LINUX ADMINISTRATOR Work Phone: [facility] 12-27-2023 11:51-0400 SaO2% (BldA) [Mass fraction] 96 % Shay Aurin BILLET DRILLER.JUNIOR LINUX ADMINISTRATOR Work Phone: [facility] 12-27-2023 11:51-0400 Systolic blood pressure 132 mm[Hg] Shay Aurin BILLET DRILLER.JUNIOR LINUX ADMINISTRATOR Work Phone: [facility] 09-17-2023 08:58-0500 Body height 157.48 cm GRIZZLYMAN-C Ricki Griffin GRIZZLYMAN Work Phone: [facility] 09-17-2023 08:58-0500 Body mass index (BMI) [Ratio] 29.3 kg/m2 GRIZZLYMAN-C Ricki Griffin GRIZZLYMAN Work Phone: [facility] 09-17-2023 08:58-0500 Body weight 72.74 kg GRIZZLYMAN-C Ricki Griffin GRIZZLYMAN Work Phone: [facility] 09-17-2023 08:58-0500 Diastolic blood pressure 60 mm[Hg] GRIZZLYMAN-C Ricki Griffin GRIZZLYMAN Work Phone: [facility] 09-17-2023 08:58-0500 Heart rate 75 /min GRIZZLYMAN-C Ricki Griffin GRIZZLYMAN Work Phone: [facility] 09-17-2023 08:58-0500 Respiratory rate 18 /min GRIZZLYMAN-C Ricki Griffin GRIZZLYMAN Work Phone: [facility] 09-17-2023 08:58-0500 SaO2% (BldA) [Mass fraction] 94 % GRIZZLYMAN-C Ricki Griffin GRIZZLYMAN Work Phone: [facility] 09-17-2023 08:58-0500 Systolic blood pressure 110 mm[Hg] GRIZZLYMAN-C Ricki Griffin GRIZZLYMAN Work Phone: [facility] 07-12-2023 12:19-0400 Body weight 74.03 kg Shay Aurin BILLET DRILLER.JUNIOR LINUX ADMINISTRATOR Work Phone: [facility] 07-12-2023 12:19-0400 Diastolic blood pressure 76 mm[Hg] Shay Aurin BILLET DRILLER.JUNIOR LINUX ADMINISTRATOR Work Phone: [facility] 07-12-2023 12:19-0400 Heart rate 69 /min Shay Aurin BILLET DRILLER.JUNIOR LINUX ADMINISTRATOR Work Phone: [facility] 07-12-2023 12:19-0400 SaO2% (BldA) [Mass fraction] 98 % Shay Aurin BILLET DRILLER.JUNIOR LINUX ADMINISTRATOR Work Phone: [facility] 07-12-2023 12:19-0400 Systolic blood pressure 139 mm[Hg] Shay Aurin BILLET DRILLER.JUNIOR LINUX ADMINISTRATOR Work Phone: [facility] 06-26-2023 13:34-0400 Body mass index (BMI) [Ratio] 32 kg/m2 GRIZZLYMAN-C Ricki Griffin GRIZZLYMAN Work Phone: [facility] 06-26-2023 13:34-0400 Body weight 74.38 kg GRIZZLYMAN-C Ricki Griffin GRIZZLYMAN Work Phone: [facility] 06-26-2023 13:34-0400 Diastolic blood pressure 78 mm[Hg] GRIZZLYMAN-C Ricki Griffin GRIZZLYMAN Work Phone: [facility] 06-26-2023 13:34-0400 Heart rate 71 /min GRIZZLYMAN-C Ricki Griffin GRIZZLYMAN Work Phone: [facility] 06-26-2023 13:34-0400 Respiratory rate 18 /min GRIZZLYMAN-C Ricki Griffin GRIZZLYMAN Work Phone: [facility] 06-26-2023 13:34-0400 SaO2% (BldA) [Mass fraction] 96 % GRIZZLYMAN-C Ricki Griffin GRIZZLYMAN Work Phone: [facility] 06-26-2023 13:34-0400 Systolic blood pressure 144 mm[Hg] GRIZZLYMAN-C Ricki Griffin GRIZZLYMAN Work Phone: [facility] 05-14-2023 00:11-0400 Body weight 74.61 kg GRIZZLYMAN-C Ricki Gaby GRIZZLYMAN Work Phone: [facility] 05-10-2023 07:13-0400 Body height 157.48 cm GRIZZLYMAN-C Ricki Griffin GRIZZLYMAN Work Phone: [facility] 05-10-2023 07:13-0400 Body weight 74.61 kg GRIZZLYMAN-C Ricki Griffin GRIZZLYMAN Work Phone: [facility] 04-24-2023 18:30-0400 Diastolic blood pressure 79 mm[Hg] GRIZZLYMAN-C Ricki Griffin GRIZZLYMAN Work Phone: [facility] 04-24-2023 18:30-0400 Heart rate 82 /min GRIZZLYMAN-C Ricki Griffin GRIZZLYMAN Work Phone: [facility] 04-24-2023 18:30-0400 Respiratory rate 16 /min GRIZZLYMAN-C Ricki Griffin GRIZZLYMAN Work Phone: [facility] 04-24-2023 18:30-0400 SaO2% (BldA) [Mass fraction] 98 % GRIZZLYMAN-C Ricki Griffin GRIZZLYMAN Work Phone: [facility] 04-24-2023 18:30-0400 Systolic blood pressure 138 mm[Hg] GRIZZLYMAN-C Ricki Griffin GRIZZLYMAN Work Phone: [facility] 04-24-2023 14:22-0400 Body height 160.02 cm GRIZZLYMAN-C Ricki Griffin GRIZZLYMAN Work Phone: [facility] 04-24-2023 14:22-0400 Body mass index (BMI) [Ratio] 29.6 kg/m2 GRIZZLYMAN-C Ricki Griffin GRIZZLYMAN Work Phone: [facility] 04-24-2023 14:22-0400 Body temperature 97 [degF] GRIZZLYMAN-C Ricki Griffin GRIZZLYMAN Work Phone: [facility] 04-24-2023 14:22-0400 Body weight 75.8 kg GRIZZLYMAN-C Ricki Holbrookpkins GRIZZLYMAN Work Phone: [facility] 03-25-2023 14:01-0400 Body height 160.02 cm GRIZZLYMAN-C Ricki Gaby GRIZZLYMAN Work Phone: [facility] 03-25-2023 14:01-0400 Body mass index (BMI) [Ratio] 30.1 kg/m2 GRIZZLYMAN-C Ricki Gaby GRIZZLYMAN Work Phone: [facility] 03-25-2023 14:01-0400 Body weight 77.11 kg GRIZZLYMAN-C Ricki [place] GRIZZLYMAN Work Phone: [facility] 03-25-2023 14:01-0400 Diastolic blood pressure 71 mm[Hg] GRIZZLYMAN-C Ricki Griffin GRIZZLYMAN Work Phone: [facility] 03-25-2023 14:01-0400 Heart rate 72 /min GRIZZLYMAN-C Ricki Holbrookpkins GRIZZLYMAN Work Phone: [facility] 03-25-2023 14:01-0400 Respiratory rate 18 /min GRIZZLYMAN-C Ricki Holbrookpkins GRIZZLYMAN Work Phone: [facility] 03-25-2023 14:01-0400 SaO2% (BldA) [Mass fraction] 100 % GRIZZLYMAN-C Ricki Gaby GRIZZLYMAN Work Phone: [facility] 03-25-2023 14:01-0400 Systolic blood pressure 110 mm[Hg] GRIZZLYMAN-C Ricki Griffin GRIZZLYMAN Work Phone: [facility] 03-13-2023 08:59-0400 Body height 160.02 cm GRIZZLYMAN-C Ricki Gaby GRIZZLYMAN Work Phone: [facility] 03-13-2023 08:59-0400 Body weight 73.02 kg GRIZZLYMAN-C Ricki Griffin GRIZZLYMAN Work Phone: [facility] 03-13-2023 08:44-0400 Body mass index (BMI) [Ratio] 28.5 kg/m2 GRIZZLYMAN-C Ricki Gaby GRIZZLYMAN Work Phone: [facility] 03-13-2023 08:44-0400 Diastolic blood pressure 69 mm[Hg] GRIZZLYMAN-C Ricki [place] GRIZZLYMAN Work Phone: [facility] 03-13-2023 08:44-0400 Heart rate 66 /min GRIZZLYMAN-C Ricki [place] GRIZZLYMAN Work Phone: [facility] 03-13-2023 08:44-0400 SaO2% (BldA) [Mass fraction] 96 % GRIZZLYMAN-C Ricki Griffin GRIZZLYMAN Work Phone: [facility] 03-13-2023 08:44-0400 Systolic blood pressure 117 mm[Hg] GRIZZLYMAN-C Ricki Griffin GRIZZLYMAN Work Phone: [facility] 03-13-2023 08:25-0400 Respiratory rate 66 /min GRIZZLYMAN-C Ricki Gaby GRIZZLYMAN Work Phone: [facility] 02-26-2023 10:40-0400 Body temperature 97.1 [degF] GRIZZLYMAN-C Ricki Gaby GRIZZLYMAN Work Phone: [facility] 02-26-2023 10:40-0400 Diastolic blood pressure 96 mm[Hg] GRIZZLYMAN-C Ricki Griffin GRIZZLYMAN Work Phone: [facility] 02-26-2023 10:40-0400 Heart rate 79 /min GRIZZLYMAN-C Ricki Gaby GRIZZLYMAN Work Phone: [facility] 02-26-2023 10:40-0400 Respiratory rate 16 /min GRIZZLYMAN-C Ricki Gaby GRIZZLYMAN Work Phone: [facility] 02-26-2023 10:40-0400 SaO2% (BldA) [Mass fraction] 98 % GRIZZLYMAN-C Ricki Mohrkins GRIZZLYMAN Work Phone: [facility] 02-26-2023 10:40-0400 Systolic blood pressure 114 mm[Hg] GRIZZLYMAN-C Ricki Gaby GRIZZLYMAN Work Phone: [facility] 02-26-2023 08:12-0400 Body temperature 97.1 [degF] GRIZZLYMAN-C Ricki Griffin GRIZZLYMAN Work Phone: [facility] 02-26-2023 08:12-0400 Diastolic blood pressure 96 mm[Hg] GRIZZLYMAN-C Ricki Griffin GRIZZLYMAN Work Phone: [facility] 02-26-2023 08:12-0400 Heart rate 79 /min GRIZZLYMAN-C Ricki Griffin GRIZZLYMAN Work Phone: [facility] 02-26-2023 08:12-0400 Respiratory rate 16 /min GRIZZLYMAN-C Ricki Griffin GRIZZLYMAN Work Phone: [facility] 02-26-2023 08:12-0400 SaO2% (BldA) [Mass fraction] 98 % GRIZZLYMAN-C Ricki Griffin GRIZZLYMAN Work Phone: [facility] 02-26-2023 08:12-0400 Systolic blood pressure 114 mm[Hg] GRIZZLYMAN-C Ricki Griffin GRIZZLYMAN Work Phone: [facility] 02-26-2023 03:05-0400 Body mass index (BMI) [Ratio] 28.5 kg/m2 GRIZZLYMAN-C Ricki Griffin GRIZZLYMAN Work Phone: [facility] 02-26-2023 03:05-0400 Body weight 73.1 kg GRIZZLYMAN-C Ricki Griffin GRIZZLYMAN Work Phone: [facility] 02-23-2023 14:27-0400 Body height 160.02 cm GRIZZLYMAN-C Ricki Griffin GRIZZLYMAN Work Phone: [facility] 02-23-2023 08:15-0400 Inhaled oxygen flow rate 2 L/min GRIZZLYMAN-C Ricki Griffin GRIZZLYMAN Work Phone: [facility] 02-22-2023 20:18-0400 Body temperature 97.9 [degF] GRIZZLYMAN-C Ricki Griffin GRIZZLYMAN Work Phone: [facility] 02-22-2023 20:18-0400 Diastolic blood pressure 91 mm[Hg] GRIZZLYMAN-C Ricki Holbrookpkins GRIZZLYMAN Work Phone: [facility] 02-22-2023 20:18-0400 Heart rate 101 /min GRIZZLYMAN-C Ricki Gaby GRIZZLYMAN Work Phone: [facility] 02-22-2023 20:18-0400 Inhaled oxygen flow rate 4 L/min GRIZZLYMAN-C Ricki Griffin GRIZZLYMAN Work Phone: [facility] 02-22-2023 20:18-0400 Respiratory rate 22 /min GRIZZLYMAN-C Ricki Griffin GRIZZLYMAN Work Phone: [facility] 02-22-2023 20:18-0400 SaO2% (BldA) [Mass fraction] 92 % GRIZZLYMAN-C Ricki Griffin GRIZZLYMAN Work Phone: [facility] 02-22-2023 20:18-0400 Systolic blood pressure 176 mm[Hg] GRIZZLYMAN-C Ricki [place] GRIZZLYMAN Work Phone: [facility] 02-22-2023 16:59-0400 Body height 160.02 cm GRIZZLYMAN-C Ricki Holbrookpkins GRIZZLYMAN Work Phone: [facility] 02-22-2023 16:59-0400 Body mass index (BMI) [Ratio] 29 kg/m2 GRIZZLYMAN-C Ricki Griffin GRIZZLYMAN Work Phone: [facility] 02-22-2023 16:59-0400 Body weight 74.38 kg GRIZZLYMAN-C Ricki Griffin GRIZZLYMAN Work Phone: [facility] 02-22-2023 11:14-0400 Respiratory rate 22 /min GRIZZLYMAN-C Ricki Gaby GRIZZLYMAN Work Phone: [facility] 02-22-2023 10:33-0400 Diastolic blood pressure 83 mm[Hg] GRIZZLYMAN-C Ricki Griffin GRIZZLYMAN Work Phone: [facility] 02-22-2023 10:33-0400 Heart rate 65 /min GRIZZLYMAN-C Ricki Griffin GRIZZLYMAN Work Phone: [facility] 02-22-2023 10:33-0400 SaO2% (BldA) [Mass fraction] 96 % GRIZZLYMAN-C Ricki Griffin GRIZZLYMAN Work Phone: [facility] 02-22-2023 10:33-0400 Systolic blood pressure 144 mm[Hg] GRIZZLYMAN-C Ricki Girffin GRIZZLYMAN Work Phone: [facility] 02-22-2023 08:29-0400 Body height 160.02 cm GRIZZLYMAN-C Ricki Griffin GRIZZLYMAN Work Phone: [facility] 02-22-2023 08:29-0400 Body mass index (BMI) [Ratio] 29.7 kg/m2 GRIZZLYMAN-C Ricki Griffin GRIZZLYMAN Work Phone: [facility] 02-22-2023 08:29-0400 Body temperature 98.2 [degF] GRIZZLYMAN-C Ricki Griffin GRIZZLYMAN Work Phone: [facility] 02-22-2023 08:29-0400 Body weight 76 kg GRIZZLYMAN-C Ricki Griffin GRIZZLYMAN Work Phone: [facility] 08-14-2022 08:45-0400 Body height 160 cm Aracelis Lozoya MD Work Phone: [facility] 08-14-2022 08:45-0400 Body weight 78.47 kg Aracelis Lozoya MD Work Phone: [facility] 08-14-2022 08:45-0400 Diastolic blood pressure 76 mm[Hg] Aracelis Lozoya MD Work Phone: [facility] 08-14-2022 08:45-0400 Systolic blood pressure 132 mm[Hg] Aracelis Lozoya MD Work Phone: [facility] 08-09-2022 12:18-0400 Diastolic blood pressure 80 mm[Hg] Sony Cedeño MD Work Phone: [facility] 08-09-2022 12:18-0400 Heart rate 71 /min Sony Cedeño MD Work Phone: [facility] 08-09-2022 12:18-0400 Respiratory rate 16 /min Sony Cedeño MD Work Phone: [facility] 08-09-2022 12:18-0400 SaO2% (BldA) [Mass fraction] 94 % Sony Cedeño MD Work Phone: [facility] 08-09-2022 12:18-0400 Systolic blood pressure 146 mm[Hg] Sony Cedeño MD Work Phone: [facility] 08-09-2022 10:39-0400 Body temperature 97.2 [degF] Sony Cedeño MD Work Phone: [facility] 07-17-2022 14:54-0400 Body height 160 cm Sony Cedeño MD Work Phone: [facility] 07-17-2022 14:54-0400 Body temperature 96.8 [degF] Sony Cedeño MD Work Phone: [facility] 07-17-2022 14:54-0400 Body weight 78.47 kg Sony Cedeño MD Work Phone: [facility] 07-17-2022 14:54-0400 Diastolic blood pressure 64 mm[Hg] Sony Cedeño MD Work Phone: [facility] 07-17-2022 14:54-0400 Heart rate 68 /min Sony Cedeño MD Work Phone: [facility] 07-17-2022 14:54-0400 SaO2% (BldA) [Mass fraction] 96 % Sony Cedeño MD Work Phone: [facility] 07-17-2022 14:54-0400 Systolic blood pressure 124 mm[Hg] Sony Cedeño MD Work Phone: [facility] 07-14-2022 18:05-0400 Body height 157.48 cm [facility] 07-14-2022 18:05-0400 Body mass index (BMI) [Ratio] 30.3 kg/m2 [facility] 07-14-2022 18:05-0400 Body temperature 97.8 [degF] [facility] 07-14-2022 18:05-0400 Body weight 75.29 kg [facility] 07-14-2022 18:05-0400 Diastolic blood pressure 62 mm[Hg] [facility] 07-14-2022 18:05-0400 Heart rate 88 /min [facility] 07-14-2022 18:05-0400 Respiratory rate 16 /min [facility] 07-14-2022 18:05-0400 SaO2% (BldA) [Mass fraction] 98 % [facility] 07-14-2022 18:05-0400 Systolic blood pressure 128 mm[Hg] [facility] 07-12-2022 15:03-0400 Diastolic blood pressure 79 mm[Hg] [facility] 07-12-2022 15:03-0400 Heart rate 72 /min [facility] 07-12-2022 15:03-0400 Respiratory rate 16 /min [facility] 07-12-2022 15:03-0400 SaO2% (BldA) [Mass fraction] 94 % [facility] 07-12-2022 15:03-0400 Systolic blood pressure 173 mm[Hg] [facility] 07-12-2022 10:45-0400 Body height 157.48 cm [facility] Work Phone: 07-12-2022 10:45-0400 Body mass index (BMI) [Ratio] 30.4 kg/m2 [facility] 07-12-2022 10:45-0400 Body temperature 96.2 [degF] [facility] 07-12-2022 10:45-0400 Body weight 75.65 kg [facility] Encounters Encounter Date Encounter Type Care Provider Facility Start: 03-30-2025 Non-patient / Non-visit Lashay DARLING -[facility] Work Phone: Start: 03-30-2025 ambulatory Lashay Prater NP Facili ty:[facility] Start: 03-29-2025 Non-patient / Non-visit Dr. Bill CLAY -[facility] Start: 03-29-2025 End: 03-29-2025 ambulatory Ricki Griffin GRIZZLYMAN-C Work Phone: [facility] Work Phone: Start: 03-29-2025 End: 03-29-2025 Patient encounter procedure Austen Castro GRIZZLYMAN-C -Cardiovascular Services Work Phone: Start: 03-29-2025 End: 03-29-2025 ambulatory Austen Castro GRIZZLYMAN Facility:[facility] Start: 03-12-2025 End: 03-12-2025 ambulatory Ricki Griffin GRIZZLYMAN-C Work Phone: [facility] Work Phone: Start: 03-12-2025 End: 03-12-[address] Jose Antonio Reeves MD -Laboratory Work Phone: Start: 03-12-2025 End: 03-12-2025 ambulatory Jose Antonio Reeves Facility:[facility] Start: 01-06-2025 End: 01-06-2025 Patient encounter procedure Austen Castro NP-C -[facility] Work Phone: Start: 01-06-2025 End: 01-06-2025 ambulatory Austen Castro GRIZZLYMAN Facility[facility] Start: 12-21-2024 End: 12-21-2024 Telephone encounter Aracelis Lozoya MD Work Phone: OB/Gynecology Comment on above: Results Start: 12-07-2024 End: 12-07-2024 Patient encounter procedure Ricki Griffin GRIZZLYMAN-C -Laboratory Work Phone: Start: 12-07-2024 End: 12-07-2024 ambulatory Ricki Griffin GRIZZLYMAN Facility:[facility] Start: 11-23-2024 End: 01-23-2025 Follow-up encounter Aracelis Lozoya MD Work Phone: OB/Gynecology Start: 11-19-2024 End: 11-19-2024 ambulatory ARACELIS LOZOYA Facility:[facility] Start: 11-19-2024 End: 11-19-2024 Subsequent hospital visit by physician Bone Density [facility] Work Phone: Radiology Comment on above: Encounter for screen ing for osteoporosis [Z13.820] Start: 09-21-2024 End: 09-21-2024 ambulatory ARACELIS LOZOYA Facility:[facility] Start: 09-21-2024 End: 09-21-2024 Patient encounter procedure [...] encounter status Aracelis Lozoya MD Work Phone: [facility] Start: 09-16-2024 End: 09-16-2024 ambulatory RICKI GRIFFIN Facility:[facility] Start: 09-16-2024 End: 09-16-2024 Subsequent hospital visit by physician Screen Mammo [facility] Mammogram Comment on above: Encounter for screen ing mammogram for malignant neoplasm of breast [Z12.31] Start: 06-23-2024 End: 06-23-2024 ambulatory Lashay Prater NP Facility:[facility] Start: 06-02-2024 End: 06-02-2024 ambulatory Ricki Griffin NP Facility:[facility] Start: 12-27-2023 End: 12-27-2023 ambulatory RICKI GRIFFIN Facility:[facility] Start: 12-27-2023 End: 12-27-2023 Patient encounter procedure Shay Teresa APRN.CNP Work Phone: Cardiology Comment on above: Chronic systolic hea rt failure (HCC) (Primary Dx); Primary hypertension; Coronary artery disease involving [place] coronary artery of [place] heart without angina pectoris; Hyperlipidemia, unspecified hyperlipidemia type; Ischemic cardiomyopathy Start: 11-13-2023 End: 11-13-2023 ambulatory GRIZZLYMAN-C Ricki Griffin GRIZZLYMAN Work Phone: [facility] Work Phone: Start: 11-13-2023 End: 11-13-2023 Patient encounter procedure GRIZZLYMAN-Fatimah Griffin GRIZZLYMAN Work Phone: [facility]-Laboratory Work Phone: Start: 09-19-2023 Non-patient / Non-visit GRIZZLYMAN-C Meenu Griffin GRIZZLYMAN Work Phone: [facility] Work Phone: Start: 09-18-2023 Non-patient / Non-visit GRIZZLYMAN-C Meenu Griffin GRIZZLYMAN Work Phone: [facility] Start: 09-18-2023 End: 09-18-2023 ambulatory GRIZZLYMAN-C Ricki Griffin GRIZZLYMAN Work Phone: [facility] Work Phone: Start: 09-18-2023 End: 09-18-2023 Patient encounter procedure GRIZZLYMAN-Fatimah Griffin GRIZZLYMAN [facility] Work [facility] Start: 09-17-2023 End: 09-17-2023 Patient encounter procedure GRIZZLYMAN-C Ricki Griffin GRIZZLYMAN Work Phone: [facility] Work Phone: Start: 08-30-2023 End: 08-30-2023 Subsequent hospital visit by physician Screen Mammo [facility] M[facility] Comment on above: Encounter for screen ing mammogram for malignant neoplasm of breast [Z12.31] Start: 07-12-2023 End: 07-12-2023 ambulatory RICKI GRIFFIN Facility[facility] Start: 07-12-2023 End: 07-12-2023 Patient encounter procedure Shay Teresa JUNIOR LINUX ADMINISTRATOR Work Phone: Cardiology Comment on above: Chronic systolic hea rt failure (HCC) (Primary Dx); Primary hypertension; Coronary artery disease involving [place] coronary artery of [place] heart without angina pectoris; Hyperlipidemia, unspecified hyperlipidemia type; Ischemic cardiomyopathy Start: 06-26-2023 End: 06-26-2023 Patient encounter procedure GRIZZLYMAN-C Ricki Griffin GRIZZLYMAN Work Phone: [facility] Work Phone: Start: 06-07-2023 End: 06-07-2023 ambulatory RICKI GRIFFIN Facility:[facility] Start: 05-22-2023 End: 06-13-2023 ambulatory GRIZZLYMAN-C Ricki Griffin GRIZZLYMAN Work Phone: [facility] Work Phone: Start: 05-22-2023 End: 06-13-2023 Discharged Recurring GRIZZLYMAN-C Ricki Griffin GRIZZLYMAN Work Phone: [facility]-Cardiac Rehab Work Phone: Start: 05-22-2023 Registered Recurring GRIZZLYMAN-C Froylan Griffin GRIZZLYMAN Work Phone: [facility]-Cardiac Rehab Work Phone: Start: 05-21-2023 Non-patient / Non-visit GRIZZLYMAN-C Meenu Griffin GRIZZLYMAN Work Phone: [facility] Start: 05-21-2023 End: 05-21-2023 ambulatory GRIZZLYMAN-C Ricki Griffin GRIZZLYMAN Work Phone: [facility] Work Phone: Start: 05-21-2023 End: 05-21-2023 Patient encounter procedure GRIZZLYMAN-C Ricki Griffin GRIZZLYMAN [facility] Start: 05-13-2023 End: 05-13-2023 ambulatory GRIZZLYMAN-C Ricki Griffin GRIZZLYMAN Work Phone: [facility] Work Phone: Start: 05-13-2023 End: 05-13-2023 Discharged Recurring GRIZZLYMAN-C Ricki Griffin GRIZZLYMAN Work Phone: [facility]-Cardiac Rehab Work Phone: Start: 05-03-2023 End: 05-03-2023 Patient encounter procedure GRIZZLYMAN-C Ricki Griffin GRIZZLYMAN Work Phone: [facility]-Laboratory Work Phone: Start: 04-24-2023 End: 04-24-2023 Emergency department patient visit GRIZZLYMAN-C Ricki Griffin GRIZZLYMAN Work Phone: [facility]-Emergency Department Work Phone: Start: 04-22-2023 Registered Recurring GRIZZLYMAN-C Froylan Griffin GRIZZLYMAN Work Phone: [facility]-Cardiac Rehab Work Phone: Start: 04-12-2023 End: 04-12-2023 ambulatory GRIZZLYMAN-C Ricki Griffin GRIZZLYMAN Work Phone: [facility] Work Phone: Start: 04-12-2023 End: 04-12-2023 Discharged Recurring GRIZZLYMAN-C Ricki Griffin GRIZZLYMAN Work Phone: [facility]-Cardiac Rehab Work Phone: Start: 03-25-2023 Telephone encounter Melissa clarke APRN.JUNIOR LINUX ADMINISTRATOR Work Phone: [facility] Cardiology Padmini Comment on above: Renal Medicine Physician - O ther Start: 03-25-2023 End: 03-25-2023 Patient encounter procedure GRIZZLYMAN-C Ricki Griffin GRIZZLYMAN Work Phone: [facility] Work Phone: Start: 03-22-2023 Non-patient / Non-visit GRIZZLYMAN-C Meenu Griffin GRIZZLYMAN Work Phone: [facility] Work Phone: Start: 03-14-2023 End: 03-14-2023 Patient encounter procedure GRIZZLYMAN-C Ricki Griffin GRIZZLYMAN Work Phone: [facility] Gastroenterology Start: 03-13-2023 End: 03-13-2023 ambulatory GRIZZLYMAN-C Ricki Griffin GRIZZLYMAN Work Phone: [facility] Work Phone: Start: 03-13-2023 End: 03-13-2023 Patient encounter procedure GRIZZLYMAN-C Ricki Griffin GRIZZLYMAN Work Phone: [facility]-Cardiac Rehab Start: 03-07-2023 End: 03-07-2023 ambulatory SHAY TERESA Facility:[facility] Start: 03-04-2023 Non-patient / Non-visit GRIZZLYMAN-C Meenu Griffin GRIZZLYMAN Work Phone: [facility] Start: 02-26-2023 End: 03-01-2023 Evaluation and management of inpatient OLY GUZMÁN Facility:[facility] Start: 02-26-2023 Non-patient / Non-visit GRIZZLYMAN-C Meenu Griffin GRIZZLYMAN Work Phone: [facility] Inpatient Physicians Start: 02-26-2023 Non-patient / Non-visit GRIZZLYMAN-C Meenu Griffin GRIZZLYMAN Work Phone: [facility] Start: 02-25-2023 Non-patient / Non-visit GRIZZLYMAN-C Meenu Griffin GRIZZLYMAN Work Phone: [facility] Start: 02-25-2023 Non-patient / Non-visit GRIZZLYMAN-C Meenu Griffin GRIZZLYMAN Work Phone: [facility] Start: 02-24-2023 Non-patient / Non-visit GRIZZLYMAN-C Meenu Griffin GRIZZLYMAN Work Phone: [facility] Start: 02-23-2023 Non-patient / Non-visit GRIZZLYMAN-C Meenu Griffin GRIZZLYMAN Work Phone: [facility] Start: 02-23-2023 Non-patient / Non-visit GRIZZLYMAN-C Meenu Griffin GRIZZLYMAN Work Phone: [facility] Start: 02-22-2023 End: 02-26-2023 Evaluation and management of inpatient GRIZZLYMAN-C Ricki Griffin GRIZZLYMAN Work Phone: [facility]-Intensive Care Unit Start: 02-22-2023 End: 02-22-2023 Emergency department patient visit GRIZZLYMAN-C Ricki Griffin GRIZZLYMAN Work Phone: [facility]-Emergency Department Start: 02-21-2023 Non-patient / Non-visit GRIZZLYMAN-C Meenu Griffin GRIZZLYMAN Work Phone: [facility] Start: 02-21-2023 End: 02-21-2023 ambulatory GRIZZLYMAN-C Ricki Griffin GRIZZLYMAN Work Phone: [facility] Work Phone: Start: 02-21-2023 End: 02-21-2023 Patient encounter procedure GRIZZLYMAN-Fatimah Griffin GRIZZLYMAN Work Phone: [facility]-Cardiovascular Services Start: 02-08-2023 End: 02-08-2023 Patient encounter procedure GRIZZLYMAN-C Ricki Griffin GRIZZLYMAN Work Phone: [facility]-Laboratory Start: 11-28-2022 Registered Recurring GRIZZLYMAN-Fatimah Griffin GRIZZLYMAN Work Phone: [facility]-Physical Therapy Start: 10-20-2022 End: 10-20-2022 ambulatory [facility] Work Phone: Start: 10-20-2022 End: 10-20-2022 Patient encounter procedure [facility]-Radiology, [facility] Start: 09-21-2022 End: 09-26-2022 ambulatory SAMEER HILLMAN BILLET DRILLER-JUNIOR LINUX ADMINISTRATOR Facility:B Start: 09-21-2022 End: 09-25-2022 Outreach Lab SAMEER HILLMAN BILLET DRILLER-JUNIOR LINUX ADMINISTRATOR [facility] Start: 09-07-2022 End: 09-07-2022 ambulatory Jackie Graf OLIVEIRA Work Phone: General Surgery Comment on above: Other gastritis with out bleeding (Primary Dx) Start: 09-07-2022 End: 09-07-2022 Telemedicine consultation with patient Jackie Graf OLIVEIRA Work Phone: [facility] [employer] Start: 08-15-2022 Documentation procedure Mammog anthony Coordinator [facility] Start: 08-15-2022 Letter encounter Mammography Coordinator [facility] Start: 08-14-2022 End: 08-14-2022 Subsequent hospital visit by physician Screen Mammo [facility] Start: 08-14-2022 End: 08-14-2022 Patient [...] 07-14-2022 End: 07-14-2022 Emergency department patient visit [facility]Emergency Department Start: 07-12-2022 End: 07-12-2022 Emergency department patient visit [facility]-Emergency Department Start: 03-31-2022 End: 03-31-2022 Patient encounter procedure [facility]-Laboratory Procedures Date Procedure Procedure Detail Performing Clinician Start: 12-07-2024 Measurement of renal function Ricki mackey GRIZZLYMAN-C Work Phone: Comment on above: GFR Calc Start: 12-07-2024 Microalbuminuria measurement Ricki cornelius GRIZZLYMAN-C Work Phone: Start: 12-07-2024 Urine microalbumin/creatinine ratio measurement Ricki Griffin GRIZZLYMAN-C Work Phone: Start: 12-07-2024 Vitamin D, 25-hydroxy measurement Neeraj Griffin GRIZZLYMAN-C Work Phone: Comment on above: Vitamin D 25(OH) Status Range Deficiency <20 ng/mL (50nmol/L) Insufficiency 20 - 30 ng/mL (50 - 75 nmol/L) Sufficiency 30 - 100 ng/mL (75 - 250 nmol/L) Toxicity >100 ng/mL (>250 nmol/L) Start: 09-16-2024 Screening digital breast tomosynthesis zaki Lozoya MD Work Phone: Start: 02-27-2023 History of appendectomy History of appendectomy Melissa Koroma APRN.JUNIOR LINUX ADMINISTRATOR Work Phone: Start: 02-27-2023 History of cholecystectomy History of cholecystectomy Melissa Koroma BILLET DRILLER.JUNIOR LINUX ADMINISTRATOR Work Phone: Start: 02-23-2023 Streptococcus pneumoniae Antigen (M GRIZZLYMAN-C Ricki Griffin GRIZZLYMAN Work Phone: Start: 02-22-2023 Plain chest X-ray GRIZZLYMAN-C Ricki Griffin GRIZZLYMAN Work Phone: Start: 02-22-2023 Computed tomography of abdomen and pelvis with intravenous contrast GRIZZLYMAN-C Ricki Griffin GRIZZLYMAN Work Phone: Start: 02-22-2023 Bacteria identified in Blood by Culture GRIZZLYMAN-C Ricki Griffin GRIZZLYMAN Work Phone: Start: 02-08-2023 Plain chest X-ray GRIZZLYMAN-C Ricki Griffin GRIZZLYMAN Work Phone: Start: 10-20-2022 Plain x-ray of [...] panel - Serum or Plasma Shay Teresa BILLET DRILLER.JUNIOR LINUX ADMINISTRATOR Work Phone: Bacteria identified in Blood by Culture GRIZZLYMAN-C Ricki Griffin GRIZZLYMAN Work Phone: Cardiac catheterization TRISHA MEJIA RAFY BILLET DRILLER-JUNIOR LINUX ADMINISTRATOR Cholecystectomy SAMEER TRUPTI REESE BILLET DRILLER-JUNIOR LINUX ADMINISTRATOR Entire heart (body structure) SAMEER RAFY BILLET DRILLER-JUNIOR LINUX ADMINISTRATOR Comment on above: stent History of appendectomy History of appendectomy History of cholecystectomy Hx of cholecys tectomy MRI guided biopsy of right breast SAMEERCheri HILLMAN BILLET DRILLER-JUNIOR LINUX ADMINISTRATOR Placement of stent i n cardiac conduit SAMEER RAFY BILLET DRILLER-JUNIOR LINUX ADMINISTRATOR Plan of Treatment Date Care Activity Detail Author Start: 09-21-2029 Screening for malignant neoplasm of cervix Cervical Cancer Screening [facility] Start: 09-13-2026 Colonoscopy COLONOSCOPY [facility] Start: 09-13-2026 COLORECTAL CANCER SCREENING COLORECTAL CANCER SCREENING [facility] Start: 09-13-2026 Screening for malignant neoplasm of colon [facility] Start: 05-16-2026 HPV TESTING HPV TESTING [facility] Start: 05-16-2026 PAP TESTING PAP TESTING [facility] Start: 05-16-2026 Screening for malignant neoplasm of cervix [facility] Start: 03-01-2026 DIABETES SCREEN DIABETES SCREEN [facility] Start: 03-01-2026 Diabetes Screening Diabetes Screening [facility] Start: 09-23-2025 End: 09-23-2025 Patient encounter procedure 09/23/2025 11:20 AM EST Office Visit OB/Gynecology [address] [place] [address] Aracelis Mccormick MD [address] [place] [address] Annual OB/Gynecology Comment on above: Annual Start: 09-23-2025 End: 09-23-2025 Patient encounter procedure 09/23/2025 10:10 AM EST Appointment Mammogram [address] [place] [address] Encounter for screening mammogram for breast cancer [Z12.31] Mammogram Comment on above: Encounter for screening mammogram for br east cancer [Z12.31] Start: 09-16-2025 Screening for malignant neoplasm of breast Mammogram Screening [facility] Start: 11-19-2024 End: 11-19-2024 Patient encounter procedure 11/19/2024 3:25 PM EST Appointment Radiology [address] [place] [id number] Asymptomatic postmenopausal status [Z78.0] Radiology Comment on above: Asymptomatic postmenopausal status [Z78. 0] Start: 09-17-2024 End: 09-17-2024 Patient encounter procedure 09/17/2024 1:20 PM EST Office Visit OB/Gynecology [address] [place] [address] Aracelis Mccormick MD [address] [place] [address] 2 year annual OB/Gynecology Comment on above: 4 year annual Start: 08-30-2024 Screening for malignant neoplasm of breast Mammogram Screening [facility] Start: 06-14-2024 Covid-19 Vaccine ( season) Covid-19 Vaccine ( season) [facility] Start: 06-14-2024 Influenza vaccination Influenza Vaccine (#1) [facility] Start: 03-07-2024 BP CONTROLLED (<130/80) BP CONTROLLED (<130/80) [facility] Start: 02-28-2024 PNEUMOCOCCAL (2 - PCV) PNEUMOCOCCAL (2 - PCV) [facility] Start: 02-28-2024 Pneumococcal vaccination [facility] Start: 02-28-2024 Pneumococcal Vaccine: 50+ (2 of 2 - PCV) Pneumococcal Vaccine: 50+ (2 of 2 - PCV) [facility] Start: 10-14-2023 Depression Assessment Depression Assessment [facility] Start: 08-14-2023 Mammography [facility] Start: 07-17-2023 BP CONTROLLED (<130/80) BP CONTROLLED (<130/80) [facility] Start: 06-14-2023 Covid-19 Vaccine () Covid-19 Vaccine () [facility] Start: 06-14-2023 Influenza vaccination [facility] Start: 03-04-2023 Patient referral [facility] Work Phone: Start: 02-28-2023 Electrocardiographic procedure [facility] Start: 02-27-2023 Electrocardiographic procedure [facility] Start: 02-26-2023 Patient discharge [facility] Start: 02-25-2023 Cardiac monitoring [facility] Start: 02-25-2023 Cardiac rehabilitation - phase 1 [facility] Start: 02-25-2023 Notification of physician [facility] Start: 02-25-2023 Patient discharge [facility] Start: 02-25-2023 Systemic arterial pressure monitoring [facility] Start: 02-25-2023 Taking patient vital signs [facility] Start: 02-25-2023 Vascular disease risk assessment [facility] Start: 02-25-2023 Vital signs measurements [facility] Start: 02-25-2023 [facility] Start: 02-23-2023 Referral to apprentice/lineman [facility] Start: 02-22-2023 Blood culture [facility] Start: 02-22-2023 Application of intermittent pneumatic compression device [facility] Start: 02-22-2023 Following clinical pathway protocol [facility] Start: 02-22-2023 Aspiration precautions [facility] Start: 02-22-2023 Assessment of risk of venous thromboembolism [facility] Start: 02-22-2023 Cardiac monitoring [facility] Start: 02-22-2023 Catheterization of vein [facility] Start: 02-22-2023 Chart related administrative procedure [facility] Start: 02-22-2023 Insertion of catheter into peripheral vein [facility] Start: 02-22-2023 Measuring intake and output [facility] Start: 02-22-2023 Notification of physician [facility] Start: 02-22-2023 Oxygen therapy [facility] Start: 02-22-2023 Providing care according to standard [facility] Start: 02-22-2023 Referral to gastroenterology service [facility] Start: 02-22-2023 Vital signs measurements [facility] Start: 02-22-2023 [facility] Start: 02-22-2023 Verification routine [facility] Start: 02-22-2023 End: 02-22-2023 Blood culture [facility] Start: 02-22-2023 Legionella pneumophila Ag [Presence] in Urine [facility] Start: 02-22-2023 Streptococcus pneumoniae antigen assay [facility] Start: 02-22-2023 Admission procedure [facility] Start: 02-22-2023 Patient referral to dietitian [facility] Start: 10-14-2022 DEPRESSION ASSESSMENT DEPRESSION ASSESSMENT [facility] Start: 06-14-2022 Influenza vaccination INFLUENZA (#1) [facility] Start: 05-16-2022 Mammography MAMMOGRAM [facility] Start: 2022 RSV Vaccine (1 - 1-dose 60+ series) RSV Vaccine (1 - 1-dose 60+ series) [facility] Start: 2022 RSV Vaccine (1 - Risk 60-74 years 1-dose series) RSV Vaccine (1 - Risk 60-74 years 1-dose series) [facility] Start: 11-23-2021 COVID-19 VACCINE (5 - Booster for Pfizer series) COVID-19 VACCINE (5 - Booster for Pfizer series) [facility] Start: 11-23-2021 COVID-19 VACCINE (5 - Booster) COVID-19 VACCINE (5 - Booster) [facility] Start: 11-23-2021 Covid-19 Vaccine (6 - Pfizer series) Covid-19 Vaccine (6 - Pfizer series) [facility] Start: 10-14-2021 DEPRESSION ASSESSMENT DEPRESSION ASSESSMENT [facility] Start: 08-22-2019 DIABETES SCREEN DIABETES SCREEN [facility] Start: 08-02-2017 Lipid 1996 panel - Serum or Plasma Lipid Screening [facility] Start: 08-02-2017 Lipid panel Lipid Screening [facility] Start: 08-02-2017 LIPID SCREEN LIPID SCREEN [facility] Start: 2012 SHINGRIX VACCINE (1 of 2) SHINGRIX VACCINE (1 of 2) [facility] Start: 2007 COLOGUARD (FIT-DNA) COLOGUARD (FIT-DNA) [facility] Start: [address] COLONOGRAPHY [facility] Start: 2007 FECAL OCCULT BLOOD FECAL OCCULT BLOOD [facility] Start: 2007 Screening for malignant neoplasm of colon [facility] Start: 2007 SIGMOIDOSCOPY SIGMOIDOSCOPY [facility] Start: 1992 Zoledronic acid therapy ALPHA-1 ANTITRYPSIN DEFICIENCY SCREENING [facility] Start: 1981 Urine microalbumin profile [facility] Start: 1980 ANNUAL PCP TEAM CHRONIC DISEASE VISIT ANNUAL PCP TEAM CHRONIC DISEASE VISIT [facility] Start: 1980 Anxiety Screening Anxiety Screening [facility] Start: 1980 BP CONTROLLED (<130/80) BP CONTROLLED (<130/80) [facility] Start: 1980 Depression Screening Depression Screening [facility] Start: 1980 Hepatitis B surface antibody level LDL CHOLESTEROL [facility] Start: 1980 HEPATITIS C SCREENING HEPATITIS C SCREENING [facility] Start: 1980 Hepatitis C screening Hepatitis C Screening [facility] Start: 1980 HIV SCREENING HIV SCREENING [facility] Start: 1980 HIV screening HIV Screening [facility] Start: 1980 SPIROMETRY SPIROMETRY [facility] Start: 1968 PNEUMOCOCCAL (1 - PCV) PNEUMOCOCCAL (1 - PCV) [facility] Bacteria identified in Blood by Culture Blood Culture [facility] End: 10-21-2025 BD DXA TRABECULAR BONE SCORE (TBS) BD DXA TRABECULAR BONE SCORE (TBS) Radiology Routine Encounter for screening for osteoporosis Asymptomatic postmenopausal status 1 Occurrences starting 09/21/2024 until 10/21/2025 [facility] Comment on above: 1 Occurrences starting 09/21/2024 until 10/21/2025 BD DXA TRABECULAR JOHNATHON NE SCORE (TBS) BD DXA TRABECULAR BONE SCORE (TBS) Radiology Routine Encounter for screening for osteoporosis Asymptomatic postmenopausal status 11/19/2024 3:47 PM EST [facility] End: 10-21-2025 DBT Breast - bilateral screening JON SCREENING W JOSHUA Radiology Routine Encounter for screening mammogram for breast cancer 1 Occurrences starting 09/21/2024 until 10/21/2025 [facility] Work Phone: Comment on above: 1 Occurrences starting 09/21/2024 until 10/21/2025 End: 09-13-2023 Dxa bone density study 1/> sites axial skel DXA-AXIAL SKELETON Radiology Routine Screening for osteoporosis 1 Occurrences starting 08/14/2022 until 09/13/2023 [facility] Work Phone: Comment on above: 1 Occurrences starting 08/14/2022 until 09/13/2023 End: 10-21-2025 DXA Skeletal system.axial Views for bone density DXA-AXIAL SKELETON Radiology Routine Encounter for screening for osteoporosis Asymptomatic postmenopausal status 1 Occurrences starting 09/21/2024 until 10/21/2025 [facility] Comment on above: 1 Occurrences starting 09/21/2024 until 10/21/2025 DXA Skeletal system. axial Views for bone density DXA-AXIAL SKELETON Radiology Routine Encounter for screening for osteoporosis Asymptomatic postmenopausal status 11/19/2024 3:47 PM EST [facility] Work Phone: End: 07-17-2023 EGD DIAGNOSTIC EGD DIAGNOSTIC Endoscopy Routine Epigastric pain Nausea and vomiting, unspecified vomiting type 1 Occurrences starting 07/17/2022 until 07/17/2023 [facility] Work Phone: Comment on above: 1 Occurrences starting 07/17/2022 until 07/17/2023 Lactic acid measurement [facility] Work Phone: PAP TEST PAP TEST Lab Jeremi marcie Encounter for screening for human papillomavirus (HPV) Pap smear for cervical cancer screening 09/21/2024 3:58 PM EST [facility] Patient Education [facility] Work Phone: Patient referral [facility] Work Phone: [facility] Immunizations Immunization Date Immunization Notes Care Provider [facility] 02-27-2023 pneumococcal polysaccharide vaccine, 23 valent Melissa Koroma BILLET DRILLER.JUNIOR LINUX ADMINISTRATOR Work Phone: [facility] 01-27-2021 SARS-CoV-2 mRNA (tozinameran) vaccine SAMEER HILLMAN BILLET DRILLER-JUNIOR LINUX ADMINISTRATOR [facility] [employer] 01-26-2021 COVID-19 original vaccine, age 12+ yr, monovalent (PFIZER-BIONTECH - PURPLE TOP) Sony Cedeño MD Work Phone: [facility] Work Phone: 01-06-2021 SARS-CoV-2 mRNA (tozinameran) vaccine SAMEER HILLMAN BILLET DRILLER-JUNIOR LINUX ADMINISTRATOR [facility] [employer] 12-26-2020 COVID-19 original vaccine, age 12+ yr, monovalent (PFIZER-BIONTECH - PURPLE TOP) Sony Cedeño MD Work Phone: [facility] Work Phone: Payers Date Payer Category Payer Self-pay [id number] 2015 [employer] BLUE ACCE SS PPO [id number] 2015 Unknown [employer] [place] ACCE SS PPO [id number] 2015-Present [phone] [id number] [place], [place] [address] PPO [id number] 2015 Unknown [id number] 1960 Unknown [id number] Unknown [facility] PACKAGE PLAN [id number] Unknown [id number] Unknown [id number] Unknown [id number] Unknown [id number] Unknown [id number] Unknown [id number] Unknown [id number] Unknown [id number] Social History Date Type Detail Facility Start: 04-20-2021 End: 09-17-2023 Tobacco smoking status INIS Unknown if ever smoked [facility] Start: 2021 Occasional [facility] Start: 2021 None [facility] Start: 2021 Homeless [facility] Start: 2021 Cigarettes [facility] Start: 1960 Sex Assigned At Female A [facility] Start: 07-06-2015 Tobacco smoking stat us INIS Smokes tobacco daily [facility] Start: 02-22-2003 End: 02-22-2023 History of tobacco use Cigarette Smoker [facility] Start: 07-06-2015 End: 12-27-2023 Cigarettes smoked current (pack per day) - Reported 0.5 [facility] Start: 07-06-2015 End: 09-21-2024 Tobacco use and exposure Smokeless tobacco non-user [facility] Start: 07-17-2022 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 (finding) [facility] Start: 1960 Sex Assigned At Not on file [facility] Start: 07-07-2022 End: 08-14-2022 Exposure to SARS-CoV-2 (event) Not sure [facility] Start: 08-14-2022 End: 09-21-2024 Alcohol intake Current drinker of alcohol (finding) [facility] Start: 07-03-2019 Tobacco smoking status Heavy t obacco smoker (finding) [facility] Start: 02-27-2023 End: 09-21-2024 Tobacco smoking status NHIS Ex-smoker [facility] Work Phone: Start: 02-22-2003 End: 02-22-2023 History of tobacco use Current smoker [facility] Work Phone: Start: 07-12-2023 End: 12-27-2023 Tobacco use panel [facility] National Score (1-10 0), lower number is lower risk 78 [facility] Start: 01-06-2025 Tobacco smoking stat us NHIS Current Light tobacco smoker [facility] Medical Equipment Procedure Code Equipment Code Equipment Origin al Text Equipment Identifier Dates Drug-eluting coronary artery stent, [id number]-coated [id number] Start: 02-25-2023 Goals Date Patient Goal Desired Activity /State Functional Status Date Assessment Result Facility 03-01-2023 Are you deaf, or do you have serious difficulty hearing No 03/01/2023 4:39 PM Zak Sharma, KARIN No [facility] 03-01-2023 Are you blind, or do you have serious difficulty seeing, even when wearing glasses No 03/01/2023 4:39 PM Zak Sharma, RN No [facility] 03-01-2023 Do you have serious difficulty walking or climbing stairs No 03/01/2023 4:39 PM EDZak Canales, RN No [facility] 03-01-2023 Do you have difficul ty dressing or bathing No 03/01/2023 4:39 PM Zak Sharma, RN No [facility] 03-01-2023 Because of a physica l, mental, or emotional condition, do you have difficulty doing errands alone such as visiting a physician's office or shopping No 03/01/2023 4:39 PM Zak Sharma, RN No [facility] 02-26-2023 Functional status Patient Activi ty Ambulates;Up ad mallika [facility] Work Phone: 02-26-2023 Functional status Ambulates;Up ad mallika [facility] Work Phone: 02-26-2023 Functional status Activity Abili ty Independent [facility] Work Phone: 02-25-2023 Functional status Assistive Devices None [facility] Work Phone: 02-25-2023 Functional status Tolerates Activity Well [facility] Work Phone: Mental Status Date Assessment Result Facility 03-01-2023 Because of a physica l, mental, or emotional condition, do you have serious difficulty concentrating, remembering, or making decisions No 03/01/2023 4:39 PM EDT Zak Mccray, KARIN No [facility] 02-26-2023 Cognitive function Voice/Name [facility] Work Phone: 02-22-2023 Cognitive function Level Of Cons ciousness Awake;Alert;Appropriate;Fol lows Commands [facility] Work Phone: 02-22-2023 Cognitive function Voice/Name [facility] Work Phone: Clinical Notes 09-10-2012 to 01-06-2025 Note Date & Type Note Facility 01-06-2025 Evaluation note Diagnosis Onset Date Resolution Essential hypertension acute January 06, 2025 3:40pm Hyperlipidemia acute December 3:40pm Ischemic cardiomyopathy acute January 06, 2025 3:40pm Nonsustained ventricular tachycardia acute January 06, 2025 3:40pm Stented coronary artery February 25, 2023 chronic January 06, 2025 3:40pm [facility] Work Phone: [phone] Telephone encounter Note* Telephone Encounter - Dinah Singh RN - 12/21/2024 2:30 PM EDT Patient called in requested 11/19/24 bone density result. Advised mychart message was sent by provider, but she does not use her mychart. Read her DM's message to her. All questions answered. Dinah Singh RN [facility]03-10-2025 Miscellaneous Notes* Telephone Encounter - Dinah Singh RN - 12/21/2024 2:30 PM EDT Patient called in requested 11/19/24 bone density result. Advised mychart message was sent by provider, but she does not use her mychart. Read her DM's message to her. All questions answered. Dniah Singh RN documented in [facility] History of Present illness Narrative* Cristhian Muse [...] PATIENT PRESENTS WITH AN IMPLANTABLE OR ATTACHED GM MOBILE: No RADIOLOGY DEPARTMENT: Bone Density PERIPHERAL IV DATA: Not applicable SIGNED BY: RT Mario(R) November 19, 2024 3:27 PM documented in this encounterC[facility]02-06-2025 NoteHNO ID: [id number] Author: CRISTHIAN MUSE RT(Meenu) Service: ? Author [...] PATIENT PRESENTS WITH AN IMPLANTABLE OR ATTACHED GM MOBILE: No RADIOLOGY DEPARTMENT: Bone Density PERIPHERAL IV DATA: Not applicable SIGNED BY: RT Mario(R) November 19, 2024 3:27 [facility]12-09-2024 Instructions* Patient Instructions* Aracelis Mccormick MD [...] your usual activities immediately. documented in this encounterC[facility]12-09-2024 NoteHNO ID: [id number] Author: ARACELIS MCCORMICK MD Service: ? Author Type: Physician Type: Progress Notes Filed: 09/21/2024 15:54 Note Text: Duster Tender offered: Patient declines. Trevion is a 64 year old who presents [...] L2 SAB1 IAB0 Ectopic0 Multiple0 Live Births0 Stretcher Drier Operator History LMP: 03/05/2012 (Approximate), Postmenopausal Age at Menarche: Age at First : Age at Menopause: Stretcher Drier Operator History Comments: Sexual Activity: Yes; Male Contraception: [...] discussed with the Patient or Patient's Authorized Supervisor Dials. As applicable, any other physician, advance practice provider, medical student, or other health professional student that will be observing or involved in the sensitive examination for educational or training purposes was discussed with the Patient or Authorized Supervisor Dials. The Patient or Authorized Supervisor Dials has agreed to proceed with the sensitive [...] external genitalia normal, normal Bartholin's glands, urethra, [place]'s glands, no vulvar lesions, no cervical lesions, [...] reviewed. Colon cancer screening: (more content not included)...[facility] 09-21-2024 History of Present illness Narrative* Aracelis Mccormick MD - 09/21/2024 3:22 PM EST Duster Tender offered: Patient declines. Vishal is a 64 [...] L2 SAB1 IAB0 Ectopic0 Multiple0 Live Births0 Stretcher Drier Operator History LMP: 03/05/2012 (Approximate), Postmenopausal Age at Menarche: Age at First : Age at Menopause: Stretcher Drier Operator History Comments: Sexual Activity: Yes; Male Contraception: [...] discussed with the Patient or Patient's Authorized Supervisor Dials. As applicable, any other physician, advance practice provider, medical student, or other health professional student that will be observing or involved in the sensitive examination for educational or training purposes was discussed with the Patient or Authorized Supervisor Dials. The Patient or Authorized Supervisor Dials has agreed to proceed with the sensitive [...] external genitalia normal, normal Bartholin's glands, urethra, [place]'s glands, no vulvar lesions, no cervical lesions, [...] needed Aracelis Yoder MD documented in this encounterC[facility]12-04-2024 History of Present illness Narrative* Tony Hart [...] PATIENT PRESENTS WITH AN IMPLANTABLE OR ATTACHED GM MOBILE: No RADIOLOGY DEPARTMENT: Mammography PERIPHERAL IV DATA: Not applicable SIGNED BY: Cesar Vargas September 16, 2024 8:07 AM documented in this encounterC[facility]12-04-2024 NoteHNO ID: [id number] Author: TONY HART Mammo Tech Service: ? Author Type: Region Manager Type: Progress Notes Filed: 09/16/2024 08:07 [...] PATIENT PRESENTS WITH AN IMPLANTABLE OR ATTACHED GM MOBILE: No RADIOLOGY DEPARTMENT: Mammography PERIPHERAL IV DATA: Not applicable SIGNED BY: Tony Hart [employer] September 16, 2024 8:07 [facility]03-15-2024 NoteHNO ID: [id number] Author: SHAY TERESA APRN.MELODY Service: ? Author Type: Nurse Practitioner Type: Progress Notes Filed: 12/27/2023 12:33 Note Text: Heart [facility] V[facility] [place] [facility] OUTPATIENT VISIT DATE December [...] of ventricular tachycardia. She was transferred to [facility] for possible ICD placement. Electrophysiology was [...] use inhaler daily. She follows with a apprentice/lineman in [place]. Does not weigh every day. Monitors her sodium intake. Does not monitor fluids as well. Weights have been stable at 162-164 lbs. States she had an echocardiogram in September in [place] and reports an ejection fraction of 45%. She was told by her apprentice/lineman if it was less than 35% she [...] with [facility] Clinic and with cardiology in [place]. She is to call the office next [...] once GDMT is optimized -repeat echo in [place] shows 45% from September 2023 Per the [...] BP monitoring 5. Coronary artery disease involving [place] coronary artery of [place] heart without angina pectoris - ICD9: 414.01, ICD10: I25.10 -stable -s/p [facility] on 02/25 -on aspirin and BB Follow [...] DX W/COLLJ SPEC WHEN (more content not included)...[id number] History of Present illness Narrative* Shay Teresa APRN.MELODY - 12/27/2023 12:00 PM EDT Images from the original note were not included. [facility] [place] [facility] OUTPATIENT VISIT DATE December 26, 2023 OUTPATIENT VISIT TYPE ESTABLISHED PRIMARY CARE PHYSICIAN: TRUDY Rendon, JUNIOR LINUX ADMINISTRATOR CHIEF COMPLAINT: Patient presents with: Breathing Problem [...] of ventricular tachycardia. She was transferred to [facility] for possible ICD placement. Electrophysiology was [...] use inhaler daily. She follows with a apprentice/lineman in [place]. Does not weigh every day. Monitors her sodium intake. Does not monitor fluids as well. Weights have been stable at 162-164 lbs. States she had an echocardiogram in September in [place] and reports an ejection fraction of 45%. She was told by her apprentice/lineman if it was less than 35% she [...] with HF Clinic and with cardiology in [place]. She is to call the office next [...] once GDMT is optimized -repeat echo in [place] shows 45% from September 2023 Per the [...] BP monitoring 5. Coronary artery disease involving [place] coronary artery of [place] heart without angina pectoris- ICD9: 414.01, ICD10: I25.10 -stable -s/p [facility] on 02/25 -on aspirin and BB Follow [...] Discussed red flags and when to call MD/GRIZZLYMAN or [facility]. Medications reconciled at end of visit: yes I spent 30 minutes in this visit, with more than 50% of the time devoted to patient counseling. SIGNATURE: Shay Teresa APRN.CNP PATIENT NAME: Vishal George DATE: December 27, 2023 TIME: 1200 documented in this encounterC[facility]03-15-2024 Instructions* Patient Instructions* Shay Teresa APRN.CNP - [...] or concern, you can call me at [phone]. documented in this encounterCleveland Clinic [facility]09-29-2023 NoteHNO ID: [id number] Author: Shay Teresa APRN.CNP Service: ? Author Type: Nurse Practitioner Type: Progress Notes Filed: 07/12/2023 12:38 PM Note Text: [facility] [place] [facility] OUTPATIENT VISIT DATE July [...] of ventricular tachycardia. She was transferred to [facility] for possible ICD placement. Electrophysiology was consulted. Recommended life vest and repeat echo in 3 months. Cardiology also started patient on carvedilol, jardiance and aldactone along with entresto. Today, the patient reports feeling very well. She follows with a apprentice/lineman in [place]. Every once in awhile she feels a [...] once GDMT is optimized -repeat echo in [place] shows 15% Per the patient- no outside records present during visit 3. Hyperlipidemia, unspecified hyperlipidemia type - ICD9: 272.4, ICD10: E78.5 -continue statin therapy 4. Primary hypertension - ICD9: 401.9, ICD10: I10 -BP suboptimal during visit 139/76 mmHg -encourage DASH/low sodium diet -encourage exercise with rest breaks as needed -goal BP <130/80 mmHg -continue home BP monitoring 5. Coronary artery disease involving [place] coronary artery of [place] heart without angina pectoris - ICD9: 414.01, ICD10: I25.10 -stable -s/p [facility] on 02/25 -on aspirin and BB Follow [...] SURGERY, COMPLEX 09/29/2012 L (more content not included)...[id number] Instructions* Patient Instructions* Shay Teresa APRN.CNP - [...] or concern, you can call me at [phone]. documented in this encounterC[facility]09-29-2023 History of Present illness Narrative* Shay Teresa APRN.JUNIOR LINUX ADMINISTRATOR - 07/12/2023 12:00 PM EDT Images from the original note were not included. [facility] [place] [facility] OUTPATIENT VISIT DATE July [...] of ventricular tachycardia. She was transferred to [facility] for possible ICD placement. Electrophysiology was consulted. Recommended life vest and repeat echo in 3 months. Cardiology also started patient on carvedilol, jardiance and aldactone along with entresto. Today, the patient reports feeling very well. She follows with a apprentice/lineman in [place]. Every once in awhile she [...] once GDMT is optimized -repeat echo in [place] shows 15% Per the patient- no outside records present during visit 3. Hyperlipidemia, unspecified hyperlipidemia type - ICD9: 272.4, ICD10: E78.5 -continue statin therapy 4. Primary hypertension - ICD9: 401.9, ICD10: I10 -BP suboptimal during visit 139/76 mmHg -encourage DASH/low sodium diet -encourage exercise with rest breaks as needed -goal BP <130/80 mmHg -continue home BP monitoring 5. Coronary artery disease involving [place] coronary artery of [place] heart without angina pectoris- ICD9: 414.01, ICD10: I25.10 -stable -s/p [facility] on 02/25 -on aspirin and BB Follow [...] is abnormally high No echo performed at [facility]. Patient states echo was done in [place] in May. I have personally reviewed the Laboratory Testing and Echocardiogram. COUNSELING: We discussed the following non-pharmacological measures during this visit: Smoking and alcohol abstinence/cessation, if applicable Dietary and medication compliance Monitoring daily weights and blood pressures Exercise regimen When to call our office Heart Failure Education Booklet: Previously given. Discussed red flags and when to call MD/GRIZZLYMAN or [facility] Medications reconciled at end of visit: yes I spent 30 minutes in this visit, with more than 50% of the time devoted to patient counseling. SIGNATURE: Shay Teresa APRN.CNP PATIENT NAME: Vishal George DATE: July 12, 2023 TIME: 1201 documented in this encounterCleveland Clinic [facility]08-25-2023 NoteHNO ID: [id number] Author: Shay Teresa APRN.CNP Service: ? Author Type: Nurse Practitioner Type: Progress Notes Filed: 06/07/2023 12:42 PM Note Text: [facility] [place] [facility] OUTPATIENT VISIT DATE June [...] dilated cardiomyopathy, chronic obstructive pulmonary disease, s/p [facility] with stent placement on 02/25 revealing 50% [...] of ventricular tachycardia. She was transferred to [facility] for possible ICD placement. Electrophysiology was [...] able. She states she has a primary apprentice/lineman at [place] in which she had an echocardiogram that she says ejection fraction was still at 15%. No results are in [facility] as the are from outside hospital. She [...] once GDMT is optimized -repeat echo in [place] shows 15% Per the patient- no outside records present during visit 3. Hyperlipidemia, unspecified hyperlipidemia type - ICD9: 272.4, ICD10: E78.5 -continue statin therapy 4. Primary hypertension - ICD9: 401.9, ICD10: I10 -BP suboptimal during visit mmHg -encourage DASH/low sodium diet -encourage exercise with rest breaks as needed -goal BP <130/80 mmHg -continue home BP monitoring 5. Coronary artery disease involving [place] coronary artery of [place] heart without angina pectoris - ICD9: 414.01, [...] Procedure Laterality Date CATARACT (more content not included)...[id number] Miscellaneous Notes* Telephone Encounter - Melissa Koroma [...] declined. Melissa Koroma APRN.CNP documented in this encounterCleveland Clinic [facility]05-25-2023 NoteHNO ID: [id number] Author: Shay Teresa APRN.CNP Service: ? Author Type: Nurse Practitioner Type: Progress Notes Filed: 03/07/2023 11:18 AM Note Text: [facility] [place] [facility] OUTPATIENT VISIT DATE March [...] of ventricular tachycardia. She was transferred to [facility] for possible ICD placement. Electrophysiology was [...] BP monitoring 5. Coronary artery disease involving [place] coronary artery of [place] heart without angina pectoris - ICD9: 414.01, ICD10: I25.10 -stable -s/p [facility] on 02/25 -on aspirin and BB Follow up appointment with Cardiology in Dr. Moe [place] to be scheduled. PAST MEDICAL HISTORY Diagnosis Date Cataract of left eye COPD (chronic obstructive pulmonary disease) (HCC) Dilated cardiomyopa (more content not included)...[id number] Note HNO ID: [id number] Author: Carlo Gallardo Service: ? Author Type: ? Type: Plan of Care Filed: 03/01/2023 4:14 PM Note Text: PHARMACY BEDSIDE DELIVERY SERVICE Patient Name: Vishal George The marked outpatient medications were Filled at: [facility] and delivered to the patient's bedside to [...] per tablet Carlo Gallardo PAGER: Benjaheather Blancle [facility]) [phone] March 01, 2023 4:12 [facility]05-19-2023 NoteHNO ID: [id number] Author: Oly Guzmán DO Service: Hospital Medicine [...] assessment, plan, and treatment Other, please specify [facility] 02-28-2023 NoteHNO ID: [id number] Author: Oly Guzmán DO Service: Hospital Medicine Author Type: Physician Type: Progress Notes Filed: 02/28/2023 4:41 PM Note Text: DEPARTMENT OF HOSPITAL MEDICINE PROGRESS NOTE SERVICE DATE: 02/28/2023 SERVICE TIME: 4:29 PM Hospital Medicine/Primary Attending: Oly Guzmán DO NIGHT AND WEEKEND COVERAGE: [place] COVERAGE: After 7pm, please call cross cover pager #[phone] Subjective She denies current chest pain, lightheadedness, syncope, shortness of breath, nausea or vomiting INTERVAL HPI: This is a 62-year-old female with known congestive heart failure systolic and diastolic, CAD status post stent who presented to [facility] a few days ago for severe [...] with a plan to transition her to [facility]. The patient was a planned to be discharged from [place], but then she had a 34 run of V. tach/wide-complex tachycardia so decision was to transfer her to [facility] for ICD evaluation as that was [...] telemetry Active Problems: Coronary artery disease involving [place] coronary artery POA: Yes Assessment AND Plan: [...] -- 02/26/23 1645 activity - mobilize patient (ky,ri) VTE Prophylaxis:On hold pending need for EP procedure Disposition: To be determined Plan of care discussed with: Provider, RN, Patient SIGNATURE: Oly Guzmán DO PATIENT NAME: Vishal George DATE: February 28, 2023 TIME: 4:29 PM etx [id number]05-[facility]-2023 NoteHNO ID: [id number] Author: Oly Guzmán DO Service: Hospital Medicine Author Type: Physician Type: Progress Notes Filed: 02/27/2023 2:21 PM Note Text: DEPARTMENT OF HOSPITAL MEDICINE PROGRESS NOTE SERVICE DATE: 02/27/2023 SERVICE TIME: 2:09 PM Hospital Medicine/Primary Attending: Oly Guzmán DO NIGHT AND WEEKEND COVERAGE: [place] COVERAGE: After 7pm, please call cross cover pager #[phone] Subjective She denies current chest pain, lightheadedness, syncope, shortness of breath, nausea or vomiting INTERVAL HPI: This is a 62-year-old female with known congestive heart failure systolic and diastolic, CAD status post stent who presented to [facility] a few days ago for severe [...] with a plan to transition her to [facility]. The patient was a planned to be discharged from [place], but then she had a 34 run of V. tach/wide-complex tachycardia so decision was to transfer her to [facility] for ICD evaluation as that was [...] telemetry Active Problems: Coronary artery disease involving [place] coronary artery POA: Yes Assessment AND Plan: [...] -- 02/26/23 1645 activity - mobilize patient (ky,ri) VTE Prophylaxis:On hold pending need for EP procedure Disposition: To be determined Plan of care discussed with: Provider, RN, Patient SIGNATURE: Oly Guzmán DO PATIENT NAME: Vishal George DATE: February 27, 2023 TIME: 2:09 PM etx [id number]12-[facility] HCoV 229E RNA FERCHO+non-probe Ql (Nph)Not Detected *NA* (09/21/22 5:46 PM) Auto Viro/Sero [id number] History of Present illness Narrative* Jackie Schneider [...] - ENDOSCOPY NAME: Vishal George CLINIC NO.: [id number] DATE OF SERVICE: 09/07/2022 : 1960 REFERRING PHYSICIAN: Ricki Griffin, LINING MECHANIC, JUNIOR LINUX ADMINISTRATOR Vishal is a patient I am following [...] which included preparing to see the patient, [id number] patient care, completing clinical documentation, obtaining and/or reviewing separately obtained history, counseling and educating the patient/family/caregiver, ordering medications, namrata ts, or procedures, independently interpreting results (not separately reported), and communicating results to the patient/family/caregiver. Jackie Schneider PA-C documented in this encounterCleveland Clinic [facility]11-02-2022 Miscellaneous Notes* Letter - Mammography Coordinator - 08/15/2022 11:32 AM EDT August 15, 2022 PID: [id number] Vishal George [address] [place] [address] Dear Ms. George, We are pleased to [...] report will be kept on file at [facility] as part of your permanent medical record and are available for your continuing care. Thank you for allowing us to help in meeting your health care needs. Sincerely, Dr. Kate Interpreting Radiologist [facility] (Normal over 40) documented in this encounterCleveland Clinic [facility]11-01-2022 History of Present illness Narrative* Aracelis Lozoya MD - 08/14/2022 8:42 AM EDT Vishal is a 62 year old who presents for an annual gynecologic exam without complaints. Working at [employer]. Admits to drinking 42 can of beer [...] L2 SAB1 IAB0 Ectopic0 Multiple0 Live Births0 Stretcher Drier Operator History LMP: 07/21/2012, Postmenopausal Age at Menarche: Age at First : Age at Menopause: Stretcher Drier Operator History Comments: Sexual Activity: Yes; Male Contraception: [...] external genitalia normal, normal Bartholin's glands, urethra, [place]'s glands, no vulvar lesions, no cervical lesions, [...] declines at this time. Aracelis Yoder MD Duster Tender offered: Patient declines. documented in this encounterCleveland Clinic [facility]10-27-2022 Nurse Note* Leslie Hendrix RN - 08/09/2022 11:48 AM EDT Patient arrived laying on left side. States she is not in any pain at this time. Patient's abdomen appears to be nondistended and soft to palpation. Patient encouraged to belch or pass gas. documented in this encounterCleveland Clinic [facility]10-27-2022 History and physical note * Sony Cedeño MD - 08/09/2022 11:30 AM EDT Images from the original note were not included. HISTORY AND PHYSICAL Vishal George 1960 REFERRING PHYSICIAN: TRUDY Rendon, MELODY CHIEF COMPLAINT: Follow Up ([facility] ER 07/12/22) HPI: The patient is [...] the request of Dr. Ricki Griffin, TRUDY, JUNIOR LINUX ADMINISTRATOR for my opinion and advice regarding Epigastric [...] letter was sent to Dr. Ricki Griffin, LINING MECHANIC, JUNIOR LINUX ADMINISTRATOR indicating the above finding for this patient. [...] 2022 TIME: 10:43 AM documented in this encounterCleveland Clinic [facility]10-20-2022 Miscellaneous Notes* Telephone Encounter - Halima Milton [...] help. Halima Milton RN documented in this encounterCleveland Clinic [facility]10-04-2022 History of Present illness Narrative* Sony Cedeño MD - 07/17/2022 3:08 PM EDT HISTORY AND PHYSICAL Vishal Formaners 1960 REFERRING PHYSICIAN: Ricki Griffin, LINING MECHANIC, JUNIOR LINUX ADMINISTRATOR CHIEF COMPLAINT: Follow Up ([facility] ER 07/12/22) HPI: The patient is [...] at the request of Dr. Ricki Griffin, LINING MECHANIC, JUNIOR LINUX ADMINISTRATOR for my opinion and advice regarding Epigastric [...] entered by the nurse and reviewed by wi Nursing Notes: Alix Gil LPN 07/17/2022 2:57 [...] letter was sent to Dr. Ricki Griffin, LINING MECHANIC, JUNIOR LINUX ADMINISTRATOR indicating the above finding for this patient. [...] Sony Cedeño III, MD documented in this encounterCleveland Clinic [facility]10-04-2022 Nurse Note* Alix Gil, HOUSING MANAGEMENT OFFICER - 07/17/2022 2:50 PM EDT REVIEW OF [...] 2015 Alix Gil LPN documented in this encounterCleveland Clinic [facility]11-28-2012 History of Past illness Narrative* Problem Noted Date Resolved Date Unspecified essential hypertension 09/10/2012 08/29/2016 PMDD (premenstrual dysphoric disorder) 2 07/06/2015 Perimenopausal 09/10/2012 07/06/2015 documented as of this encounter (statuses as of 07/17/2022) [facility]28[facility] History of Past illness Narrative* Problem Noted Date Resolved Date Unspecified essential hypertension 09/10/2012 08/29/2016 PMDD (premenstrual dysphoric disorder) 2 07/06/2015 Perimenopausal 09/10/2012 07/06/2015 documented as of this encounter (statuses as of 08/14/2022) [facility] History of Past illness Narrative* Problem Noted Date Resolved Date Unspecified essential hypertension 09/10/2012 08/29/2016 PMDD (premenstrual dysphoric disorder) 2 07/06/2015 Perimenopausal 09/10/2012 07/06/2015 documented as of this encounter (statuses as of 08/15/2022) [facility]-28[facility] History of Past illness Narrative* Problem Noted Date Resolved Date Unspecified essential hypertension 09/10/2012 08/29/2016 PMDD (premenstrual dysphoric disorder) 2 07/06/2015 Perimenopausal 09/10/2012 07/06/2015 documented as of this encounter (statuses as of 08/17/2022) [place] [id number] History of Past illness Narrative* Problem Noted Date Resolved Date Unspecified essential hypertension 09/10/2012 08/29/2016 PMDD (premenstrual dysphoric disorder) 2 07/06/2015 Perimenopausal 09/10/2012 07/06/2015 documented as of this encounter (statuses as of 09/07/2022) [address]28-2012 History of Past illness Narrative* Problem Noted Date Resolved Date Unspecified essential hypertension 09/10/2012 08/29/2016 PMDD (premenstrual dysphoric disorder) 2 07/06/2015 Perimenopausal 09/10/2012 07/06/2015 documented as of this encounter (statuses as of 03/25/2023) [address]28-2012 History of Past illness Narrative* Problem Noted Date Diagnosed Date Resolved Date Unspecified essential hypertension 09/10/2012 08/29/2016 PMDD (premenstrual dysphoric disorder) 09/10/2012 07/06/2015 Perimenopausal 09/10/2012 07/06/2015 documented as of this encounter (statuses as of 07/12/2023) [address]28-2012 History of Past illness Narrative* Problem Noted Date Diagnosed Date Resolved Date Unspecified essential hypertension 09/10/2012 08/29/2016 PMDD (premenstrual dysphoric disorder) 09/10/2012 07/06/2015 Perimenopausal 09/10/2012 07/06/2015 documented as of this encounter (statuses as of 08/18/2023) [address]28-2012 History of Past illness Narrative* Problem Noted Date Diagnosed Date Resolved Date Unspecified essential hypertension 09/10/2012 08/29/2016 PMDD (premenstrual dysphoric disorder) 09/10/2012 07/06/2015 Perimenopausal 09/10/2012 07/06/2015 documented as of this encounter (statuses as of 08/18/2023) [address]28-2012 History of Past illness Narrative* Problem Noted Date Diagnosed Date Resolved Date Unspecified essential hypertension 09/10/2012 08/29/2016 PMDD (premenstrual dysphoric disorder) 09/10/2012 07/06/2015 Perimenopausal 09/10/2012 07/06/2015 documented as of this encounter (statuses as of 08/31/2023) [address]28-2012 History of Past illness Narrative* Problem Noted Date Diagnosed Date Resolved Date Unspecified essential hypertension 09/10/2012 08/29/2016 PMDD (premenstrual dysphoric disorder) 09/10/2012 07/06/2015 Perimenopausal 09/10/2012 07/06/2015 documented as of this encounter (statuses as of 12/27/2023) [facility] + Plan note Future Appointments Appointment Date:09/28/2022 03:20:00 PM Scheduled Provider:RICKI GRIFFIN APRN, CNP Location:[facility] Appointment Type:[facility] evaluation noteNo assessment information available [facility] Work Phone: evaluation note* Diagnosis Epigastric pain- Primary Abdominal pain, epigastric Nausea and vomiting, unspecified vomiting type documented in this encounter [facility] note* Diagnosis Encounter for gynecological examination (general) (routine) without abnormal findings- Primary Encounter for screening mammogram for malignant neoplasm of breast Other screening mammogram Screening for osteoporosis Special screening for osteoporosis documented in this encounter [facility] note* Diagnosis Other gastritis without bleeding- Primary documented in this encounter [facility] note* Diagnosis Onset Date Resolution Status 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 Dilated cardiomyopathy acute Heart failure with reduced ejection fraction acute Hypoxia acute Nausea & vomiting acute Pneumonia acute Sepsis acute [facility] Work Phone: evaluation note* Diagnosis Onset Date Resolution Status 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 Coronary artery disease acut e Dyslipidemia acute Hypoxia acute Nausea & vomiting acute V-tach acute Acute on chronic combined sy stolic and diastolic heart failure chronic HTN (hypertension) chronic [facility] Work Phone: evaluation note* Diagnosis Onset Date Resolution Status V-tach acute Acute on chronic combined sy stolic and diastolic heart failure resolved Hypoxia resolved Nausea & vomiting resolved Epigastric pain chronic [facility] Work Phone: evaluation note* Diagnosis Onset Date Resolution Status 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 Acute on chronic combined sy stolic and diastolic heart failure resolved Hypoxia resolved Nausea & vomiting resolved Essential hypertension acute Hyperlipidemia acute Ischemic cardiomyopathy acut e Nonsustained ventricular tachycardia acute 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 Stented coronary artery February 25, 2023 zander linn [facility] Work Phone: evaluation note* Diagnosis Chronic systolic heart failure (HCC)- Primary Chronic systolic heart failure Primary hypertension Unspecified essential hypertension Coronary artery disease involving [place] coronary artery of [place] heart without angina pectoris Hyperlipidemia, unspecified hyperlipidemia type Ischemic cardiomyopathy Other specified forms of chronic ischemic heart disease [facility]* Diagnosis Epigastric pain- Primary Abdominal pain, epigastric Nausea and vomiting, unspecified vomiting type documented in this encounter [facility] note* Diagnosis Encounter for screening mammogram for malignant neoplasm of breast Other screening mammogram documented in this encounter [facility] note* Diagnosis Onset Date Resolution Status Essential hypertension acute Hyperlipidemia acute Ischemic cardiomyopathy acut e Nonsustained ventricular tachycardia acute 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 Stented coronary artery February 25, 2023 [facility] Essential hypertension acute Hyperlipidemia acute Ischemic cardiomyopathy acut e Nonsustained ventricular tachycardia acute 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 Stented coronary artery February 25, 2023 [facility] Work Phone: Evaluation note* Diagnosis Onset Date Resolution Status Essential hypertension acute Hyperlipidemia acute Ischemic cardiomyopathy acut e Nonsustained ventricular tachycardia acute 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 Stented coronary artery February 25, 2023 [facility] Work Phone: Evaluation note* Diagnosis Chronic systolic heart failure (HCC)- Primary Chronic systolic heart failure Primary hypertension Unspecified essential hypertension Coronary artery disease involving [place] coronary artery of [place] heart without angina pectoris Hyperlipidemia, unspecified hyperlipidemia type Ischemic cardiomyopathy Other specified forms of chronic ischemic heart disease documented in this encounter [facility] note* Diagnosis Encounter for screening mammogram for malignant neoplasm of breast Other screening mammogram documented in this encounter [facility] note* Diagnosis Encounter for gynecological examination (general) (routine) without abnormal findings- Primary Encounter for screening for human papillomavirus (HPV) Special screening examination for human papillomavirus (HPV) Pap smear for cervical cancer screening Screening for malignant neoplasm of the cervix Encounter for screening mammogram for breast cancer Encounter for screening for osteoporosis Special screening for osteoporosis Asymptomatic postmenopausal status documented [facility] this encounter [facility]* Diagnosis Encounter for screening for osteoporosis Special screening for osteoporosis Asymptomatic postmenopausal status documented in this encounter [facility] course Narrative No data available for this section [facility] Hospital Discharge instructions No data available for this section [facility] Progress note No data available for this section [facility] Reason for referral (narrative)* Outpatient Procedure (Routine) - Authorized Specialty Diagnoses / Procedures Referred By Dayan woods Referred To Contact [facility] Diagnoses Epigastric pain Nausea and vomiting, unspecified vomiting type Procedures EGD DIAGNOSTIC ESOPHAGOGASTRODUODENOSC OPY TRANSORAL DIAGNOSTIC Sony Cedeño MD [address] [place] [address] [facility] [address] [place] [address] Referral ID Status Reason Start Date Expiration Date Visits Requested Visits Authorized [id number] Authorized Auto-Generat ed Referral 07/17/2022 07/17/2023 [address] [facility] for referral (narrative)* Outpatient Procedure (Routine) - Closed Specialty Diagnoses / Procedures Referred By Dayan woods Referred To Contact [facility] [place] Diagnoses Epigastric pain Nausea and vomiting, unspecified vomiting type Procedures EGD DIAGNOSTIC ESOPHAGOGASTRODUODENOSC OPY TRANSORAL DIAGNOSTIC Sony Cedeño MD [address] [place] [address] [address] Referral ID Status Reason Start Date Expiration Date V isits Requested Visits Authorized [id number] Closed Auto-Generate d Referral 07/17/2022 07/17/2023 [address] [facility] for referral (narrative)* Diagnostic Procedure Only (Routine) - Closed Specialty Diagnoses / Procedures Referred By Dayan woods Referred To Contact [facility] Diagnoses Encounter for screening mammogram for malignant neoplasm of breast Procedures JON SCREENING W JOSHUA SCREENING DIGITAL BREAST TOMOSYNTHESIS BI SCREENING MAMMOGRAPHY BI 2-VIEW BREAST INC CAD Aracelis Mccormick MD [address] [place] [address] [facility] [address] [place] [address] Referral ID Status Reason Start Date Expiration Date V isits Requested Visits Authorized [id number] Closed Auto-Generate d Referral 09/14/2024 10/14/2025 [address] [facility] for referral (narrative)* Diagnostic Procedure Only (Routine) - Authorized Specialty Diagnoses / Procedures Referred By Dayan woods Referred To Contact [facility] Diagnoses Encounter for screening for osteoporosis Asymptomatic postmenopausal status Procedures DXA-AXIAL SKELETON DXA BONE DENSITY STUDY / SITES AXIAL SKEL Aracelis Mccormick MD [address] [place] [address] [place] [id number] Referral ID Status Reason Start Date Expiration Date Visits Requested Visits Authorized [id number] Authorized Auto-Generat ed Referral 09/21/2024 10/21/2025 1 1 * Diagnostic Procedure Only (Routine) - Authorized Specialty Diagnoses / Procedures Referred By Dayan woods Referred To Contact [facility] Diagnoses Encounter for screening mammogram for breast cancer Procedures JON SCREENING W JOSHUA SCREENING DIGITAL BREAST TOMOSYNTHESIS BI SCREENING MAMMOGRAPHY BI 2-VIEW BREAST INC CAD Aracelis Mccormick MD [address] [place] [address] [facility] [address] [place] [address] Referral ID Status Reason Start Date Expiration Date Visits Requested Visits Authorized [id number] Authorized Auto-Generat ed Referral 09/21/2024 10/21/2025 [address] [facility] for referral (narrative)No reason for referral information [facility] Work Phone: Reason for visit Narrative* Outpatient Procedure (Routine) - Closed Specialty Diagnoses / Procedures Referred By Dayan woods Referred To Contact [facility] Diagnoses Epigastric pain Nausea and vomiting, unspecified vomiting type Procedures EGD DIAGNOSTIC ESOPHAGOGASTRODUODENOSC OPY TRANSORAL DIAGNOSTIC Sony Cedeño MD [address] [place] [address] [facility] [address] [place] [address] Referral ID Status Reason Start Date Expiration Date V isits Requested Visits Authorized [id number] Closed Auto-Generate d Referral 07/17/2022 07/17/2023 [address] [facility] for visit Narrative* Diagnostic Procedure Only (Routine) - Closed Specialty Diagnoses / Procedures Referred By Dayan woods Referred To Contact [facility] Diagnoses Encounter for screening mammogram for malignant neoplasm of breast Procedures JON SCREENING W JOSHUA SCREENING DIGITAL BREAST TOMOSYNTHESIS BI SCREENING MAMMOGRAPHY BI 2-VIEW BREAST INC CAD Aracelis Mccormick MD [address] [place] [address] [facility] [address] [place] [address] Referral ID Status Reason Start Date Expiration Date V isits Requested Visits Authorized [id number] Closed Auto-Generate d Referral 08/14/2022 09/13/2023 [address] [facility] for visit Narrative* Diagnostic Procedure Only (Routine) - Closed Specialty Diagnoses / Procedures Referred By Dayan woods Referred To Contact [facility] Diagnoses Encounter for screening mammogram for malignant neoplasm of breast Procedures JON SCREENING W JOSHUA SCREENING DIGITAL BREAST TOMOSYNTHESIS BI SCREENING MAMMOGRAPHY BI 2-VIEW BREAST INC CAD Aracelis Mccomrick MD [address] [place] [address] [facility] [address] [place] [address] Referral ID Status Reason Start Date Expiration Date V isits Requested Visits Authorized [id number] Closed Auto-Generate d Referral 09/14/2024 10/14/2025 [address] [facility] for visit Narrative* Diagnostic Procedure Only (Routine) - Closed Specialty Diagnoses / Procedures Referred By Dayan t Referred To Contact [facility] Diagnoses Encounter for screening for osteoporosis Asymptomatic postmenopausal status Procedures DXA-AXIAL SKELETON DXA BONE DENSITY STUDY SITES AXIAL Aracelis Henderson MD [address] [place] [address] [place] [id number] Referral ID Status Reason Start Date Expiration Date V isits Requested Visits Authorized [id number] Closed Auto-Generate d Referral 09/21/2024 10/21/2025 1 1 [facility] Chief Complaint and Reason for Visit Chief [...] April 20, 2021 9 :23pm Power of Third Hand No April 20, 2021 9:23pm Advance Directive Response Recorded Date/ Time Advance Directives No September 10:47am Living Will No July 12, 2022 11:49am Power of Third Hand No June 11:49am Advance Directive Response Recorded Date/ Time Advance Directives No September 9:47am Living Will No July 14 5:26pm Power of Third Hand No July 14 022 5:26pm Advance Directive Response Recorded Date/ Time Advance Directives No September 10:47am Living Will No February 22, 2023 8 :34am Power of Third Hand No February 22, 2023 8:34am Advance Directive Response Recorded Date/ Time Advance Directives No September 10:47am Living Will No February 22, 2023 4 :58pm Power of Third Hand No February 22, 2023 4:58pm Advance Directive Response Recorded Date/ Time Advance Directives No September 10:47am Living Will No February 22, 2023 9 :38pm Power of Third Hand No February 22, 2023 9:38pm Advance Directive Response Recorded Date/ Time Advance Directives on File No February 132022 8:44am Advance Directives No September 10:47am Living Will No March 13, 2023 8 :44am Power of Third Hand No March 13, 2023 8:44am Latest Code Status on File Code Status Date Activated Date Inactivated Comments Full Code 02/26/2023 4:37 PM 03/01/2023 8:19 PM Full Code Order Discussed With: Patient Advance Directive Response Recorded Date/ Time Advance Directives on File No February 132022 8:44am Advance Directives No September 10:47am Living Will No April 24, 2023 2:26pm Power of Third Hand No April 24 2:26pm Latest Code Status [...] No April 24, 2023 1:26pm Power of Third Hand No April 24 1:26pm Date Activated Date [...] Do you have a Healthcare Power of Third Hand? No April 24, 2023 2:26pm Advance Directives No September 10:47am Summary Purpose Medications Administered Section Inactive Administered Medications - up to 3 most recent administrations Medication Order MAR Action Action Date Dose Rate Site benzocaine 20% 1 Clayton (TOPEX) 1 Clayton, TOPICAL, DIRECTED, Starting on Corrina 08/09/22 at 1200, Until Corrina 08/09/22 at 1559, DOSING DIRECTED BY PHYSICIAN FOR PROCEDURAL SEDATION ONLY - Pharmaceutical Waste: Aerosol -, Intraprocedure Given 08/09/2022 11:30 AM EDT 1 [place] diphenhydrAMINE 12.5-50 mg injection (BENADRYL) 12.5-50 mg, [...] or prosecute any alcohol or drug abuse patient.[facility] the event this information is protected by the Federal Confidentiality of Alcohol and Drug Abuse Patient Records regulations: The Federal rules restrict any use of the information to criminally investigate or prosecute any alcohol or drug abuse patient.[facility] General[facility] the event this information is protected by the Federal Confidentiality of Alcohol and Drug Abuse Patient Records regulations: The Federal rules restrict any use of the information to criminally investigate or prosecute any alcohol or drug abuse patient.[facility] GeneralIn the event this information is protected by the Federal Confidentiality of Alcohol and Drug Abuse Patient Records regulations: The Federal rules restrict any use of the information to criminally investigate or prosecute any alcohol or drug abuse patient.[facility] the event this information is protected by the Federal Confidentiality of Alcohol and Drug Abuse Patient Records regulations: The Federal rules restrict any use of the information to criminally investigate or prosecute any alcohol or drug abuse patient.[facility] the event this information is protected by the Federal Confidentiality of Alcohol and Drug Abuse Patient Records regulations: The Federal rules restrict any use of the information to criminally investigate or prosecute any alcohol or drug abuse patient.[facility] General[facility] the event this information is protected by the Federal Confidentiality of Alcohol and Drug Abuse Patient Records regulations: The Federal rules restrict any use of the information to criminally investigate or prosecute any alcohol or drug abuse patient.[facility] GeneralIn the event this information is protected by the Federal Confidentiality of Alcohol and Drug Abuse Patient Records regulations: The Federal rules restrict any use of the information to criminally investigate or prosecute any alcohol or drug abuse patient.[facility] GeneralIn the event this information is protected by the Federal Confidentiality of Alcohol and Drug Abuse Patient Records regulations: The Federal rules restrict any use of the information to criminally investigate or prosecute any alcohol or drug abuse patient.[facility] General[facility] the event this information is protected by the Federal Confidentiality of Alcohol and Drug Abuse Patient Records regulations: The Federal rules restrict any use of the information to criminally investigate or prosecute any alcohol or drug abuse patient.[facility] GeneralIn the event this information is protected by the Federal Confidentiality of Alcohol and Drug Abuse Patient Records regulations: The Federal rules restrict any use of the information to criminally investigate or prosecute any alcohol or drug abuse patient.[facility] GeneralIn the event this information is protected by the Federal Confidentiality of Alcohol and Drug Abuse Patient Records regulations: The Federal rules restrict any use of the information to criminally investigate or prosecute any alcohol or drug abuse patient.[facility] GeneralIn the event this information is protected by the Federal Confidentiality of Alcohol and Drug Abuse Patient Records regulations: The Federal rules restrict any use of the information to criminally investigate or prosecute any alcohol or drug abuse patient.[facility] GeneralIn the event this information is protected by the Federal Confidentiality of Alcohol and Drug Abuse Patient Records regulations: The Federal rules restrict any use of the information to criminally investigate or prosecute any alcohol or drug abuse patient.[facility] GeneralIn the event this information is protected by the Federal Confidentiality of Alcohol and Drug Abuse Patient Records regulations: The Federal rules restrict any use of the information to criminally investigate or prosecute any alcohol or drug abuse patient.[facility] GeneralIn the event this information is protected by the Federal Confidentiality of Alcohol and Drug Abuse Patient Records regulations: The Federal rules restrict any use of the information to criminally investigate or prosecute any alcohol or drug abuse patient.[facility] Reason for Visit (unrecogniz ed section and content) Reason Comments Follow Up [facility] 07/12/22 Reason Comments Yearly Exam Reason Comments Patient Question Reason Comments Follow Up Reason Comments Renal Medicine Physician - Other Reason Comments Breathing Problem Reason Comments Breathing Problem CHF Reason Comments Yearly Exam Reason Comments Results Care Teams (unrecognized sec tion and content) Critical Care Technician Relationship Specialty Start Date End Date Ricki Griffin, JUNIOR LINUX ADMINISTRATOR [address] [place] [address] PCP - General Family Medicine 08/08/16 Critical Care Technician Relationship Specialty Start Date End Date Ricki Griffin, JUNIOR LINUX ADMINISTRATOR [address] [place] [address] PCP - General Family Medicine 08/08/16 Critical Care Technician Relationship Specialty Start Date End Date Ricki Griffin, JUNIOR LINUX ADMINISTRATOR [address] [place] [address] PCP - General Family Medicine 08/08/16 Critical Care Technician Relationship Specialty Start Date End Date Ricki Griffin, JUNIOR LINUX ADMINISTRATOR [address] [place] [address] PCP - General Family Medicine 08/08/16 Critical Care Technician Relationship Specialty Start Date End Date Ricki Griffin, JUNIOR LINUX ADMINISTRATOR [address] [place] [address] PCP - General Family Medicine 08/08/16 Team Status: Active Member Role Status Dates Ricki Griffin GRIZZLYMAN, GRIZZLYMAN-C Family Provider Activ e Ricki Griffin GRIZZLYMAN, GRIZZLYMAN-C Primary Care Provider Active Team Status: Inactive Member Role Status Dates Ricki Griffin GRIZZLYMAN, GRIZZLYMAN-C Primary Care Provider Active Dr. Edmundo Monae DO Attending Provider, Emergency Aspen hennessy Active Team Status: Inactive Member Role Status Dates Ricki Griffin GRIZZLYMAN, GRIZZLYMAN-C Primary Care Provider Active Dr. Aleksandar Rain MD Attending Provider, Emergency Pro vider Active Team Status: Inactive Member Role Status Dates Ricki Griffin GRIZZLYMAN, GRIZZLYMAN-C Primary Care Provider, Attending Provider, Referring Provider Active Team Status: Active Member Role Status Dates Ricki Griffin GRIZZLYMAN, GRIZZLYMAN-C Primary Care Provider Active Dr. Jose Antonio Reeves MD Attending Provider Active Team Status: Active Member Role Status Dates Ricki Griffin GRIZZLYMAN, GRIZZLYMAN-C Primary Care Provider, Attending Provider, Referring Provider Active Team Status: Inactive Member Role Status Dates Ricki Griffin GRIZZLYMAN, GRIZZLYMAN-C Primary Care Provider Active Dr. Arcadio Koehler MD Emergency Provider Active Team Status: Active Member Role Status Dates Ricki Griffin GRIZZLYMAN, GRIZZLYMAN-C Primary Care Provider Active Dr. Dinesh Burris DO Emergency Provider Active Dr. Julio César Arndt MD Admit Provider, Attending Pro vider Active Team Status: Active Member Role Status Dates Ricki Griffin GRIZZLYMAN, GRIZZLYMAN-C Primary Care Provider Active Dr. Dinesh Burris DO Emergency Provider Active Dr. Julio César Arndt MD Admit Provider, Other Provide r Active Dr. Zulma Brunner , Other Provider Active Dr. Rohan Awan MD Attending Provider, Othe r Provider Active Dr. Kt Romero , DO Other Provider Active Team Status: Active Member Role Status Dates Ricki Griffin GRIZZLYMAN, GRIZZLYMAN-C Primary Care Provider Active Dr. Dinesh Burris , DO Emergency Provider Active Dr. Julio César Arndt MD Admit Provider, Other Provide r Active Dr. Zulma Brunner , DO Attending Provider, Other Provide r Active Dr. Rohan Awan MD Other Provider Active Dr. Kt Romero , DO Other Provider Active Team Status: Active Member Role Status Dates Ricki Griffin GRIZZLYMAN, GRIZZLYMAN-C Primary Care Provider Active Dr. Dinesh Burris , DO Emergency Provider Active Dr. Julio César Arndt MD Admit Provider, Other Provide r Active Dr. Zulma Brunner , DO Other Provider Active Dr. Rohan Awan MD Other Provider Active Dr. Kt Romero , DO Other Provider Active Dr. Jose Antonio Reeves MD Attending Provider Active Team Status: Active Member Role Status Dates Ricki Girffin GRIZZLYMAN, GRIZZLYMAN-C Primary Care Provider Active Dr. Dinesh Burris , DO Emergency Provider Active Dr. Julio César Arndt MD Admit Provider, Other Provide r Active Dr. Zulma Brunner , DO Other Provider Active Dr. Rohan Awan MD Other Provider Active Dr. Kt Romero , DO Attending Provider, Other Prov ider Active Team Status: Active Member Role Status Dates Ricki Griffin GRIZZLYMAN, GRIZZLYMAN-C Primary Care Provider Active Dr. Dinesh Burris , DO Emergency Provider Active Dr. Julio César Arndt MD Admit Provider, Other Provide r Active Dr. Zulma Brunner , DO Attending Provider Active Dr. Rohan Awan MD Other Provider Active Dr. Kt Romero , DO Other Provider Active Team Status: Active Member Role Status Dates Ricki Griffin GRIZZLYMAN, GRIZZLYMAN-C Primary Care Provider Active Dr. Dinesh Burris [...] Inactive Member Role Status Dates Ricki Griffin GRIZZLYMAN, GRIZZLYMAN-C Primary Care Provider, Referring Provider Active Dr. Kt Romero , Attending Provider Active Team Status: Inactive Member Role Status Dates Ricki Griffin GRIZZLYMAN, GRIZZLYMAN-C Primary Care Provider Active Dr. Arcadio Koehler MD Attending Provider, Emergency Provider Active Team Status: Inactive Member Role Status Dates Ricki Griffin GRIZZLYMAN, GRIZZLYMAN-C Primary Care Provider Active Dr. Dinesh Burris DO Emergency Provider Active Dr. Julio César Arndt MD Admit Provider, Other Provide r Active Dr. Zulma Brunner DO Attending Provider Active Dr. Rohan Awan MD Other Provider Active Dr. Kt Romero , DO Other Provider Active Team Status: Inactive Member Role Status Dates Ricki Griffin GRIZZLYMAN, GRIZZLYMAN-C Primary Care Provider Active Dr. Jose Antonio Reeves MD Attending Provider, Referring Pro vider Active Critical Care Technician Relationship Specialty Start Date End Date Ricki Griffin, JUNIOR LINUX ADMINISTRATOR [address] [place] [address] PCP - General Family Medicine 08/08/16 Team Status: Active Member Role Status Dates Ricki Griffin GRIZZLYMAN, GRIZZLYMAN-C Primary Care Provider Active Dr. Dinesh Burris DO Emergency Provider Active Dr. Julio César Arndt MD Admit Provider, Other Provide r Active Dr. Zulma Brunner , Referring Provider, Other Provide r Active Dr. Rohan Awan MD Other Provider Active Dr. Kt Romero , Attending Provider, Other Prov ider Active Team Status: Inactive Member Role Status Dates Ricki Griffin GRIZZLYMAN, GRIZZLYMAN-C Primary Care Provider, Referring Provider Active Lashay Prater GRIZZLYMAN, GRIZZLYMAN-C Attending Provider Active Team Status: Active Member Role Status Dates Ricki Griffin GRIZZLYMAN, GRIZZLYMAN-C Primary Care Provider Active Sandra Moreau Attending Provider Active Team Status: Active Member Role Status Dates Ricki Griffin GRIZZLYMAN, GRIZZLYMAN-C Primary Care Provider Active Dr. Jose Antonio Reeves MD Attending Provider, Referring Pro vider Active Team Status: Inactive Member Role Status Dates Ricki Griffin GRIZZLYMAN, GRIZZLYMAN-C Primary Care Provider Active Dr. Shira Oglesby MD Emergency Provider Active Team Status: Inactive Member Role Status Dates Ricki Griffin GRIZZLYMAN, GRIZZLYMAN-C Primary Care Provider Active Dr. Shira Oglesby MD Attending Provider, Emergency Provider Active Team Status: Inactive Member Role Status Dates Ricki Griffin GRIZZLYMAN, GRIZZLYMAN-C Primary Care Provider Active Lashay Prater GRIZZLYMAN, GRIZZLYMAN-C Attending Provider, Efrain hennessy Active Critical Care Technician Relationship Specialty Start Date End Date Ricki Griffin CNP [address] [place] [address] PCP - General Family Medicine 08/08/16 Critical Care Technician Relationship Specialty Start Date End Date Ricki Griffin, MELODY [address] [place] [address] PCP - General Family Medicine 08/08/16 Critical Care Technician Relationship Specialty Start Date End Date Ricki Griffin, MELODY [address] [place] [address] PCP - General Family Medicine 08/08/16 Critical Care Technician Relationship Specialty Start Date End Date Ricki Griffin, MELODY [address] [place] [address] PCP - General Family Medicine 08/08/16 Team Status: Active Member Role Status Dates Ricki Griffin GRIZZLYMAN, GRIZZLYMAN-C Primary Care Provider Active Lashay Prater GRIZZLYMAN, GRIZZLYMAN-C Attending Provider Active Critical Care Technician Relationship Specialty Start Date End Date Ricki Griffin, MELODY [address] [place] [address] PCP - General Family Medicine 08/08/16 Critical Care Technician Relationship Specialty Start Date End Date Ricki Griffin, MELODY [address] [place] [address] PCP - General Family Medicine 08/08/16 Critical Care Technician Relationship Specialty Start Date End Date Ricki GriffinMELODY [address] [place] [address] PCP - General Family Medicine 08/08/16 Critical Care Technician Relationship Specialty Start Date End Date Ricki Griffin, JUNIOR LINUX ADMINISTRATOR [address] [place] [address] PCP - General Family Medicine 08/08/16 Critical Care Technician Relationship Specialty Start Date End Date Ricki Griffin, JUNIOR LINUX ADMINISTRATOR [address] [place] [address] PCP - General Family Medicine 08/08/16 Critical Care Technician Relationship Specialty Start Date End Date Ricki Griffin, MELODY [address] [place] [address] PCP - General Family Medicine 08/08/16 Team Status: Active Member Role Status Dates Ricki Griffin GRIZZLYMAN, GRIZZLYMAN-C Primary Care Provider Active Team Status: Inactive Member Role Status Dates Ricki Griffin GRIZZLYMAN, GRIZZLYMAN-C Primary Care Provider Active Start: December 072024 End: December 07, 2024 Ricki Griffin GRIZZLYMAN, GRIZZLYMAN-C Attending Provider Active Start: November End: December 07, 2024 Ricki Griffin GRIZZLYMAN, GRIZZLYMAN-C Referring Provider Active Start: November End: December 07, 2024 Team Status: Inactive Member Role Status Dates Ricki Griffin GRIZZLYMAN, GRIZZLYMAN-C Primary Care Provider Active Start: January 06, 2025 End: January 06, 2025 Ricki Griffin GRIZZLYMAN, GRIZZLYMAN-C Referring Provider Ac tive Start: January 06, 2025 End: January 06, 2025 Austen Castro GRIZZLYMAN, GRIZZLYMAN-C Attending Provider Active S tart: January 06, 2025 End: January 06, 2025 Team Status: Inactive Member Role Status Dates Ricki Griffin GRIZZLYMAN, GRIZZLYMAN-C Primary Care Provider Active Start: March 12, 2025 End: March 12, 2025 Dr. Jose Antonio Reeves MD Attending Provider Active S tart: March 12, 2025 End: March 12, 2025 Dr. Jose Antonio Reeves MD Referring Provider Active S tart: March 12, 2025 End: March 12, 2025 Team Status: Inactive Member Role Status Dates Rikci Griffin GRIZZLYMAN, GRIZZLYMAN-C Primary Care Provider Active Start: March 29, 2025 End: March 29, 2025 Austen Castro GRIZZLYMAN, GRIZZLYMAN-C Attending Provider Active S tart: March 29, 2025 End: March 29, 2025 Austen Castro GRIZZLYMAN, GRIZZLYMAN-C Referring Provider Active S tart: March 29, 2025 End: March 29, 2025 Team Status: Active Member Role Status Dates Ricki Griffin GRIZZLYMAN, GRIZZLYMAN-C Primary Care Provider Active Start: March 29, 2025 Dr. Jose Antonio Reeves MD Attending Provider Active S tart: March 29, 2025 Team Status: Active Member Role Status Dates Ricki Griffin GRIZZLYMAN, GRIZZLYMAN-C Primary Care Provider Active Start: March 30, 2025 Lashay Prater GRIZZLYMAN, GRIZZLYMAN-C Attending Provider Active Start: March 30, 2025 Care Team (unrecognized sect ion and content) Care Team Personnel Name: RICKI GRIFFIN BILLET DRILLER - JUNIOR LINUX ADMINISTRATOR Position: P4 Advanced Practice Nurse Member Role: Primary Care Physician Address: Address: [address] [place] [address]- [place] Care Team Related Persons Name: ALEKSANDAR KATE INFORMATION SOURCE (unrecogn ized section and content) DATE CREATED AUTHOR 09/26/2022 [facility] DATE CREATED AUTHOR AUTHOR'S ORGANIZ ATION 03/27/2023 [facility] DATE CREATED AUTHOR AUTHOR'S ORGANIZ ATION 12/28/2023 [facility] DATE CREATED AUTHOR AUTHOR'S ORGANIZ ATION 12/23/2024 [facility] DATE CREATED AUTHOR AUTHOR'S ORGANIZ ATION 04/04/2025 [facility] FOR RECORDS PERTAINING TO PATIENTS WHO [...] BE BASED ON THE PRIMARY CLINICAL RECORDS. [employer] provides no warranty or guarantee of the accuracy or completeness of information in this document.
[2025-05-03 12:08] LABS: H. PYLORI STOOL AG Negative (Negative)
== END | disposition home or self-care (01) ==
LOC: LABSPEC 09:40
PROVIDERS: PCP Nurse Practitioner Family; Referring Provider Nurse Practitioner Family; Visit Provider Nurse Practitioner Family
DX: R10.13 Epigastric pain (principal); R11.2 Nausea with vomiting, unspecified
CPT/HCPCS: 87338

== ENCOUNTER → 2025-06-09 | Outpatient (CLI) | payer BC, SELFPAY ==
--- OUTSIDE RECORDS SUMMARY | 2025-06-09 06:40 | XMS RPT_ITS | CCD ---
Author Organization [facility] Care Team Providers Care Ignition Specialist Name Role Phone Ricki Griffin CNP Primary Care Provider [phone] RICKI ANDERSON APRN, CNP Primary Care Phys ician SAMEER ROSARIO Attending RICKI Gaviria CNP Primary Care Unavaila ble Gaby COTTON CLEANER, COTTON CLEANER-C Ricki Reese Primary Care Pr ovider Dr. Jose Antonio Reeves Attending Provider Dr. Dinesh Burris Emergency Provider [phone] Dr. Julio César Arndt Admit Provider Dr. Julio César Arndt Other Provider Dr. Zulma Brunner Other Provider Dr. Rohan Awan Attending Provider [phone] Dr. Rohan Awan Other Provider Dr. Kt Romero Other Provider Dr. Zulma Brunner Attending Provider Dr. Kt Romero Attending Provider Dr. Jose Antonio Reeves Referring Provider Gaby COTTON CLEANER, COTTON CLEANER-C Ricki Reese Referring Provi timo Ricki Griffin CNP Primary Care Provider [phone] OLY GUZMÁN Attending Unavailable DAVIE REY Admitting Unavailable ZULMA BRUNNER Referring Unavailab LENKA Coleman Consulting Unavailable GABYRICKI CORNELIUS D Primary Care Unavailable Dr. Zulma Brunner Referring Provider Sandra Moreau Attending Provider Unavailable Moi COTTON CLEANER, COTTON CLEANER-C Lashay Attending Provider Gaby COTTON CLEANER, COTTON CLEANER-C Ricki Reese Primary Care Pr ovider Gaby COTTON CLEANER, COTTON CLEANER-C Ricki Reese Referring Provi timo Moi COTTON CLEANER, COTTON CLEANER-C Lashay Attending Provider Dr. Jose Antonio Reeves Attending Provider Adams COTTON CLEANER, COTTON CLEANER-C Ricki Reese Primary Care Pr ovider Gaby COTTON CLEANER, COTTON CLEANER-C Ricki Reese Referring Provi timo Moi HANNAH, COTTON CLEANER-C Lashay Attending Provider Dr. Jose Antonio Reeves Referring Provider SHAY TERESA Attending Unavailable GABY, RICKI D Primary Care Unavailable GABY, RICKI D Primary Care Unavailable AURINSHAY Attending Unavailable GABY, RICKI D Primary Care Unavailable AURINTHUYN Attending Unavailable GABY, RICKI D Primary Care Unavailable AURINSHAY Attending Unavailable Adams MELODY, Ricki D Primary Care Provider ARACELIS MCCORMICK Referring Unavail able GABY, RICKI D Primary Care Unavailable ARACELIS MCCORMICK Attending Unavail able GABY, RICKI D Primary Care Unavailable ARACELIS MCCORMICK Referring Unavail able GABY, RICKI D Primary Care Unavailable ARACELIS MCCORMICK Referring Unavail able Adams COTTON CLEANER-C, Ricki Reese Primary Care Provi timo Gaby COTTON CLEANER-Ricki Sheridan Attending Provider Gaby COTTON CLEANER-CRicki Referring Provider Matthew COTTON CLEANER-CAusten Attending Provider Leandro CLAY, Dr. Brady Attending Provider Leandro CLAY, Dr. Brady Referring Provider Roof COTTON CLEANER-C, Austen Traore Referring Provider Prater COTTON CLEANER-C, Lashay Attending Provider [phone] Adams COTTON CLEANER-C, Ricki Reese Primary Care Provi timo Adams COTTON CLEANER-C, Ricki Reese Referring Provider Adams COTTON CLEANER-C, Ricki Reese Attending Provider Gaby COTTON CLEANER, Ricki Reese Referring Unav ailable Prater COTTON CLEANER, Lashay Attending Unavailable Gaby COTTON CLEANER, Ricki Reese Primary Care Unav ailable Gaby COTTON CLEANER, Ricki Reese Primary Care Unav ailable Roof COTTON CLEANER, Austen Traore Attending Unavailable Adams COTTON CLEANER, Ricki Reese Referring Unav ailable Leandro, Jose Antonio Attending Unavailable Adams COTTON CLEANER, Ricki Reese Primary Care Unav ailable Prater COTTON CLEANER, Lashay Attending Unavailable Adams COTTON CLEANER, Ricki Reese Primary Care Unav ailable Adams COTTON CLEANER, Ricki Reese Primary Care Unav ailable Roof COTTON CLEANER, Austen Traore Attending Unavailable Roof COTTON CLEANER, Austen Traore Referring Unavailable Gaby COTTON CLEANER, Ricki Reese Primary Care Unav ailable Gaby COTTON CLEANER, Ricki Reese Attending Unav ailable Adams COTTON CLEANER, Ricki Reese Referring Unav ailable Gaby COTTON CLEANER, Ricki Reese Primary Care Unav ailable Gaby COTTON CLEANER, Ricki Reese Attending Unav ailable Gaby COTTON CLEANER, Ricki Reese Referring Unav ailable Gaby COTTON CLEANER, Ricki Reese Referring Unav ailable Gaby COTTON CLEANER, Ricki Reese Primary Care Unav ailable Gaby COTTON CLEANER, Ricki Reese Attending Unav ailable Adams COTTON CLEANER, Ricki Reese Referring Unav ailable Gaby COTTON CLEANER, Ricki Reese Primary Care Unav ailable Gaby COTTON CLEANER, Ricki Reese Attending Unav ailable Leandro, Jose Antonio Attending Unavailable Leandro, Jose Antonio Referring Unavailable Adams COTTON CLEANER, Ricki Reese Primary Care Unav ailable GABY ANNUAL CAMPAIGN MANAGER - STONEMASON SUPERVISOR, RICKI Carlson Attending U navailable GABY ANNUAL CAMPAIGN MANAGER - STONEMASON SUPERVISOR, RICKI Carlson Primary Care U navailable Allergies Allergy Classification Reported Allergen(s) Allergy Type Date of Onset Reaction(s) Facility (19 sources) Adhesive Tape; Translations: [ADHESIVE TAPE (ROSINS)] Allergy to substance 09-10-2012 Rash [facility] (6 sources) Nicotine; Translations: [nicotine] Drug Allergy 01-06-2025 [facility] Comment on above: Nicotine patch (1 source) Nicotine Drug Allergy 01-06-2025 Repository Medications Current Medications Medication Drug Class(es) Dates Sig (Normalized) Sig (Original) acetaminophen 325 mg / HYDROcodone bitartrate 5 mg oral tablet (3 sources) Opioid Agonist Start: 07-12-2022 take 1 tablet by mouth every six hours as needed Hydrocodone-Acet aminophen Active 1 TABLET PO EVERY 6 HOURS NEEDED 10 3 July 12, 2022 [id number] 200 actuat albuterol 0.09 mg/actuat metered dose inhaler (4 sources) beta2-Adrenergic Agonist Start: 06-23-2024 Albuterol Sulfate 90 mcg/actuation HFA aerosol inhaler Active 2 NMA INHALATION EVERY 6 HOURS as needed June 23, 2024 12:00am aspirin 81 mg delayed release oral tablet (20 sources) Platelet Aggregation Inhibitor, Nonsteroidal Anti-inflammatory Drug Start: 03-22-2023 take 1 mg by mouth once daily aspirin 81 mg oral delayed release tablet mg = tab(s), Oral, qDay, 0 Refill(s) Start Date: 05/17/23 Status: Ordered Repeat number: 1 Start: 03-02-2023 End: 04-01-2023 take 1 tablet [...] AT BEDTIME January 06, 2025 4:01pm Start: 12-11-2024 End: 06-09-2025 atorvastatin 80 mg oral tabl et Dose : 80 mg = 1 tab(s), Oral, qDay, # 90 tab(s), 1 Refill(s), Pharmacy: [facility], [facility], Hyperlipidemia LDL goal Start Date: 12/11/24 Stop Date: 06/09/25 Status: Ordered Quantity: 90.0 Unit: tab(s) Repeat number: 2 Indications: Hyperlipidemia, unspecified; Start: 05-13-2024 End: 01-06-2025 take 1 tablet by mouth at bedtime Atorvastatin 40 mg tablet Discontinued 40 mg PO AT BEDTIME 90 3 May 13, 2024 2:19pm January 06, 2025 [...] tab(s), 0 Refill(s), 09/26/22 13:20:00 EST, Pharmacy: [id number], 157.5, cm, 09/21/22 13:03:00 EST, Height, 76.6 Start Date: 09/21/22 Stop Date: 09/26/22 Status: Ordered Blood Pressure Monitor (4 sources) Start: 07-03-2023 Blood Pressure Monitor Active 0 .Route 1 July 03, 2023 5:54pm As directed Start: 06-26-2023 End: 07-03-2023 Blood Pressure Monitor Disco ntinued 0 .Route 1 June 25, 2023 11:00pm July 03, 2023 5:55pm As directed Blood Pressure Monitor kit (8 sources) Start: 07-03-2023 Blood Pressure Monitor kit Active 0 .Route 1 0 July 03, 2023 6:54pm Primary hypertension Ischemic cardiomyopathy Essential (primary) hypertension Ischemic cardiomyopathy ICD 10 code I 10 Essential hypertension, 125.5 CMP As directed Start: 07-03-2023 Blood Pressure Monitor kit Active 0 .Route 1 July 03, 2023 6:54pm As directed Start: 06-26-2023 End: 07-03-2023 Blood Pressure Monitor kit D iscontinued 0 .Route 1 0 June 26, 2023 12:00am July 03, 2023 6:55pm Primary hypertension Ischemic cardiomyopathy Essential (primary) hypertension Ischemic cardiomyopathy As directed Start: 06-26-2023 End: 07-03-2023 Blood [...] 1 tablet by anuja th twice daily. BuPROPion (Eqv-Wellbutrin SR) 150 mg/12 hours oral tablet, extended release (1 source) Start: 03-15-2025 BuPROPion (Eqv-Wellbutrin SR) 150 mg/12 hours oral tablet, extended release Dose : 150 mg = 1 tab(s), Oral, BID, # 180 tab(s), 0 Refill(s), Pharmacy: [facility] 151, cm, 02/26/25 13:34:00 EDT, Height, kg, 02/26/25 13:34:00 EDT, Dosing Weight Start Date: 03/15/25 Status: Ordered Quantity: 180.0 Unit: tab(s) Repeat number: 1 busPIRone hydrochloride 10 mg oral tablet (20 sources) Start: 12-11-2017 busPIRone 10 mg oral tablet Dose : 10 mg = 1 tab(s), Oral, BID, # 180 tab(s), 0 Refill(s), Pharmacy: [facility] 151, cm, 02/26/25 13:34:00 EDT, Height, kg, 02/26/25 13:34:00 EDT, Dosing Weight Start Date: 03/25/25 Status: Ordered Quantity: 180.0 Unit: tab(s) Repeat number: 1 Start: 12-11-2017 End: 06-26-2023 take 1 tablet [...] mg by mouth two times a day. calcium carbonate 1500 mg oral tablet (4 sources) Start: 01-06-2025 take 1 tablet by mouth once daily Calcium Carbonate 600 mg calcium (1,500 mg) tablet Active 600 mg PO daily January 06, 2025 12:00am carvedilol 12.5 mg oral tablet (20 sources) alpha-Adrenergic Jaden, beta-Adrenergic Jaden Start: 03-15-2025 take 1 tablet by mouth twice daily at mealtime Carvedilol 12.5 mg tablet Active 12.5 mg PO TWICE A DAY 180 3 March 15, 2025 12:00am must administer with a meal/food Start: 01-06-2025 End: 03-15-2025 take 1 tablet by mouth twice daily Carvedilol 25 mg tablet Discontinued 25 mg PO TWICE A DAY 180 3 January 06, 2025 4:32pm March 15, 2025 12:31pm Start: 06-26-2023 End: 09-17-2023 take 2 tablets [...] administer with a meal/food Start: 03-07-2023 End: 01-06-2025 take 1 tablet by mouth twice daily Carvedilol 12.5 mg tablet Discontinued 12.5 mg PO TWICE A DAY 180 3 May 05, 2024 8:02am January 06, 2025 4:31pm Comment on above: Take 1 tablet by anuja th twice daily with meals. celecoxib 200 mg oral capsule (20 sources) Nonsteroidal Anti-inflammatory Drug Start: 06-12-2023 CeleBREX 200 mg oral capsule Dose : 200 mg = 1 cap(s), Oral, qDay, # 90 cap(s), 1 Refill(s), Pharmacy: [facility] Chronic pain of right hip Chronic low back pain with right-sided sciatica, 157, cm, 12/11/24 14:04:00 EST, Height, kg, 12/11/24 14:04:00 EST, Dosing Weight Start Date: 12/11/24 Status: Ordered Quantity: 90.0 Unit: cap(s) Repeat number: 2 Indications: Pain in right hip; Lumbago with sciatica, right side; Comment on above: Take 200 mg by mouth once daily. cetirizine hydrochloride 10 mg oral tablet (5 sources) Histamine-1 Receptor Antagonist Start: 12-11-2024 Zyrtec 10 mg oral tablet Dose : 10 mg = 1 tab(s), Oral, qDay, # 90 tab(s), 1 Refill(s), [facility] Seasonal allergies, 157, cm, 12/11/24 14:04:00 EST, Height, kg, 12/11/24 14:04:00 EST, Dosing Weight Start Date: 12/11/24 Status: Ordered Quantity: 90.0 Unit: tab(s) Repeat number: 2 Indications: Other seasonal allergic rhinitis; Start: 06-23-2024 take 1 capsule by mo [facility] once daily as needed Cetirizine (Allergy Relief (Cetirizine)) 10 mg capsule Active 10 mg PO daily as needed June 23, 2024 12:00am cholecalciferol 0.025 mg oral capsule (20 sources) Vitamin D Start: 03-25-2023 take 1 capsule by mouth once [...] 22, 2023 12:00am March 25, 2023 2:32pm Check with primary doctor Start: 04-06-2022 End: 10-03-2022 cholecalciferol 1250 mcg (50 ,000 intl units) oral capsule Dose : 50,000 International_Unit = 1 cap(s), Oral, every other week, # 7 cap(s), 1 Refill(s), Pharmacy: [id number], Vitamin D deficiency, 157, cm, 04/06/22 15:49:00 EDT, Height, kg, 04/06/22 15:49:00 EDT, Dosing Weight Start Date: 04/06/22 Stop Date: 10/03/22 Status: Ordered cholecalciferol (VITAMIN D3) 5,000 unit tab Take 1,000 Units by mouth once daily. Active take 1 tablet by anuja th once daily cholecalciferol (VITAMIN D3) 5,000 unit tab Take 5,000 Units by mouth once daily. 0 Active Comment on above: Take 5,000 Units by mouth once daily. Take 1,000 Units by mouth once daily. clopidogrel 75 mg oral tablet (20 sources) P2Y12 Platelet Inhibitor Start: 12-08-19 End: 06-09-20 Plavix 75 mg oral tablet Dose : 75 mg = 1 tab(s), Oral, qDay, # 90 tab(s), 1 Refill(s), Pharmacy: [facility], [facility] 157, cm, 12/11/24 14:04:00 EST, Height, kg, 12/11/24 14:04:00 EST, Dosing Weight Start Date: 12/11/24 Stop Date: 06/09/25 Status: Ordered Quantity: 90.0 Unit: tab(s) Repeat number: 2 Comment on above: Take one(1) tablet d aily. Take 1 tablet by anuja th once daily. empagliflozin 10 mg oral tablet (20 sources) Sodium-Glucose Cotransporter 2 Inhibitor Start: 03-01-20 End: 01-07-20 take 1 mg by mouth once daily in the morning Jardiance 10 mg oral tablet mg = tab(s), Oral, qAM, 0 Refill(s) Start Date: 03/08/23 Status: Ordered Repeat number: 1 Comment on above: Take 1 tablet by anuja th once daily. famotidine 40 mg oral tablet (1 source) Histamine-2 Receptor Antagonist Start: 04-29-20 Pepcid 40 mg oral tablet Dose : 40 mg = 1 tab(s), Oral, qHS, # 30 tab(s), 0 Refill(s), Pharmacy: [id number], Epigastric abdominal pain, 151, cm, 04/29/25 9:27:00 EDT, Height, kg, 04/29/25 9:27:00 EDT, Dosing Weight Start Date: 04/29/25 Status: Ordered Quantity: 30.0 Unit: tab(s) Repeat number: 1 Indications: Epigastric pain; furosemide 20 mg oral tablet (20 sources) Loop Diuretic Start: 07-12-20 End: 01-07-20 furosemide 20 mg oral tablet Dose : 20 mg = 1 tab(s), Oral, qDay, # 30 tab(s), 0 Refill(s) Start Date: 12/11/24 Status: Ordered Quantity: 30.0 Unit: tab(s) Repeat number: 1 Start: 06-07-2023 End: 09-17-2023 take 1 tablet [...] 1 tablet by anuja th once daily. 12 hr guaiFENesin 600 mg extended release oral tablet (1 source) Start: 09-21-2022 End: 10-01-2022 Mucinex 600 mg oral tablet, extended release Dose : 600 mg = 1 tab(s), Oral, q12h, X 10 day(s), # 20 tab(s), 0 Refill(s), 10/01/22 13:23:00 EST, Pharmacy: [id number], 157.5, cm, 09/21/22 13:03:00 EST, Height Start Date: 09/21/22 Stop Date: 10/01/22 Status: Ordered methylPREDNISolone 4 mg oral tablet (1 source) Corticosteroid Start: 09-21-2022 End: 09-27-2022 Medrol Dosepak 4 mg oral tablet Per Dosepak Instructions, Oral, Daily, as directed on package labeling, X 6 day(s), # 1 EA, 0 Refill(s), 09/27/22 13:21:00 EST, Pharmacy: [id number], 157.5, cm, 09/21/22 13:03:00 EST, Height Start Date: 09/21/22 Stop Date: 09/27/22 Status: Ordered montelukast 10 mg oral table t (5 sources) Leukotriene Receptor Antagonist Start: 06-23-2024 Singulair 10 mg oral tablet Dose : 10 mg = 1 tab(s), Oral, qDay, # 90 tab(s), 1 Refill(s), Pharmacy: [facility], [facility]., Seasonal allergies Cough with congestion of paranasal sinus, 157, cm, 12/11/24 14:04:00 EST, Height, kg, 12/11/24 14:04:00 EST, Dosing Weight Start Date: 12/11/24 Status: Ordered Quantity: 90.0 Unit: tab(s) Repeat number: 2 Indications: Other seasonal allergic rhinitis; Other specified cough; Mucus Relief ER 600 mg oral tablet, extended release (1 source) Start: 2025 Mucus Relief ER 600 mg oral tablet, extended release Dose : 600 mg = 1 tab(s), Oral, q12h, # 60 tab(s), 0 Refill(s), Pharmacy: [id number], 151, cm, 02/26/25 13:34:00 EDT, Height, kg, 02/26/25 13:34:00 EDT, Dosing Weight Start Date: 03/11/25 Status: Ordered Quantity: 60.0 Unit: tab(s) Repeat number: 1 Multi-Day Plus Minerals (1 source) Start: 06-05-2024 Multi-Day Plus Minerals Oral, qDay, 0 Refill(s) Start Date: 06/05/24 Status: Ordered Repeat number: 1 MULTIVIT-MINERALS/FERROUS FU M (MULTI VITAMIN ORAL) (16 sources) MULTIVIT-MINERAL S/FE RROUS FUM (MULTI VITAMIN ORAL) Take by [...] 22, 2023 12:00am Multivitamin With Iron tablet (4 sources) Start: 03-22-2023 Multivitamin W ith Iron tablet Active 1 {tbl} PO DAILY March 22, 2023 12:00am Nitroglycerin 0.4 mg tablet, sublingual (4 sources) Start: 01-06-2025 Nitroglycerin 0.4 mg tablet, sublingual Active mg SL January 06, 2025 12:00am Tiotropium-Olodaterol (12 sources) Anticholinergic, beta2-Adrenergic Agonist Start: 01-06-2025 Tiotropium-Olodatero l (Stiolto Respimat) 2.5-2.5 mcg/actuation mist Active 2 NMA INHALATION daily January 06, 2025 12:00am Start: 12-11-2024 End: 06-09-2025 take 1 dose by inhalation every twenty-four hours Stiolto Respimat 60 ACT 2.5 mcg-2.5 mcg/inh inhalation aerosol Dose = 2 puff(s), Inhalation, q24h, # 3 EA, 1 Refill(s), [facility] 157, cm, 12/11/24 14:04:00 EST, Height, kg, 12/11/24 14:04:00 EST, Dosing Weight Start Date: 12/11/24 Stop Date: 06/09/25 Status: Ordered Quantity: 3.0 Unit: EA Repeat number: 2 Start: 11-18-2023 STIOLTO RESPIM AT 2.5-2.5 mcg/actuation Inhale 2.5 mcg as instructed once daily. 11/18/2023 Active Start: 04-26-2022 End: 10-23-2022 take 1 dose by inhalation every twenty-four hours Stiolto Respimat 60 ACT 2.5 mcg-2.5 mcg/inh inhalation aerosol Dose = 2 puff(s), Inhalation, q24h, # 3 EA, 1 Refill(s), Pharmacy: [facility], 157, cm, 04/06/22 15:49:00 EDT, [...] tablet (20 sources) Proton Pump Inhibitor Start: 12-11-2024 End: 06-09-2025 pantoprazole 40 mg oral enteric coated tablet Dose : 40 mg = 1 tab(s), Oral, qDay, # 90 tab(s), 1 Refill(s), [facility] 157, cm, 12/11/24 14:04:00 EST, Height, kg, 12/11/24 14:04:00 EST, Dosing Weight Start Date: 12/11/24 Stop Date: 06/09/25 Status: Ordered Quantity: 90.0 Unit: tab(s) Repeat number: 2 Start: 06-06-2016 End: 10-23-2022 take 1 tablet by mouth once daily Pantoprazole 40 MG tablet Active 40 mg PO DAILY 30 0 July 12, 2022 2:57pm Comment on above: Take 40 mg by mouth once daily. sertraline 25 mg oral tablet (20 sources) Serotonin Reuptake Inhibitor Start: 1 Zoloft 25 mg oral tablet Dose : 25 mg = 1 tab(s), Oral, qDay, # 100 tab(s), 0 Refill(s), Pharmacy: [facility], [facility], 151, cm, 02/26/25 13:34:00 EDT, Height, kg, 02/26/25 13:34:00 EDT, Dosing Weight Start Date: 03/15/25 Status: Ordered Quantity: 100.0 Unit: tab(s) Repeat number: 1 Comment on above: Take 25 mg by mouth once daily. For 30 days vitamin b12 1 mg oral tablet (20 sources) Vitamin B12 Start: 3 take 1 tablet by mouth once daily Cyanocobalamin (Vitamin B-12) (Vitamin B-12) 1,000 mcg tablet Active 1000 ug PO DAILY September 17, 2023 10:11am Start: 02-22-2023 End: 09-17-2023 take 5 tablets by mouth once daily Cyanocobalamin (Vitamin B-12) (Vitamin B-12) 1,000 mcg Tablet Discontinued 5000 ug PO DAILY February 22, 2023 12:00am September 17, 2023 10:13am Comment on above: Take 1,000 mcg by [facility] once daily. Vitamin B12 1000 mcg oral tablet (2 sources) Start: 07-02-2019 Vitamin B12 1000 mcg oral tablet Dose : 1,000 mcg = 1 tab(s), Oral, qDay, # 30 tab(s), 0 Refill(s) Start Date: 07/02/19 Status: Ordered Quantity: 30.0 Unit: tab(s) Repeat number: 1 Start: 07-02-2019 Vitamin B12 10 00 mcg oral tablet Dose : 1,000 mcg = 1 tab(s), Oral, qDay, # 30 tab(s), 0 Refill(s) Start Date: 07/02/19 Status: Ordered Vitamin D3 (1 source) Start: 12-19-2022 Vitamin D3 Dos e : 25 mcg = 1 tab(s), Oral, Daily, not sure of IU, 0 Refill(s) Start Date: 12/19/22 Status: Ordered Repeat number: 1 Zinc (16 sources) ZINC ORAL Take b y mouth once daily. Active ZINC ORAL Take b y mouth once daily. 0 Active Comment on above: Take by mouth once d aily. zinc gluconate 100 mg oral tablet (20 sources) Start: 09-17-2023 Zinc Gluconate 100 mg [...] 0 Refill(s) Start Date: 09/12/20 Status: Ordered Repeat number: 1 Completed/Discontinued Medications Medication Drug Class(es) Dates Sig (Normalized) Sig (Original) albuterol MDI (90 mcg/inh) CFC free inhalation aerosol (1 source) Start: 06-05-2024 End: 12-02-2024 take 2 puff(s) by inhalation every six hours albuterol MDI (90 mcg/inh) CFC free inhalation aerosol 2 puff(s), Inhalation, q6h, # 18 gram(s), 1 Refill(s), Pharmacy: [facility] COPD with exacerbation, 157.5, cm, 06/05/24 14:27:00 EDT, Height, kg, 06/05/24 14:27:00 EDT, Dosing Weight Start Date: 06/05/24 Stop Date: 12/02/24 Status: Ordered Quantity: 18.0 Unit: g Repeat number: 2 Indications: Chronic obstructive pulmonary disease with (acute) exacerbation; ascorbic acid 500 mg oral tablet (20 sources) Vitamin C Start: 03-22-2023 End: 06-23-2024 take 1 tablet by mouth once daily Ascorbic Acid (Vitamin C) 500 mg tablet Discontinued 500 mg PO DAILY March 22, 2023 12:00am June 23, 2024 8:35am Comment on above: Take 500 mg by mouth once daily. Calcium Carbonate-Vitamin D2 (Calcium + Vitamin D) 600 mg calcium- 200 unit Tablet (15 sources) Start: 02-22-2023 End: 03-22-2023 Calcium Carbonate-Vitamin [...] TWICE A DAY February 22, 2023 12:00am dicyclomine hydrochloride 20 mg oral tablet (14 sources) Anticholinergic Start: 04-24-2023 End: 09-17-2023 take 1 tablet by mouth twice daily as needed for pain Dicyclomine 20 mg tablet Discontinued 20 mg PO TWICE A DAY as needed for abdominal pain 14 0 April 24, 2023 6:24pm September 17, 2023 10:12am Start: 09-29-2017 take 20 mg by mouth at bedtime Dicyclomine Active 20 MG PO BEFORE MEALS AND AT BEDTIME September 29, 2017 1:00am hydroCHLOROthiazide 12.5 mg oral tablet (10 sources) Thiazide Diuretic Start: 10-29-2017 End: 08-14-2022 hydroCHLOROthiazide (HYDRODIURIL, ESIDRIX) 12.5 mg tablet Start: [...] DAILY February 22, 2023 12:00am Multivitamin Tablet (4 sources) Start: 02-22-2023 End: 03-22-2023 Multivitamin Tablet Discontinued 1 {tbl} PO DAILY February 22, 2023 12:00am March 22, 2023 3:16pm 24 hr nicotine 0.875 mg/hr transdermal system (19 sources) Cholinergic Nicotinic Agonist Start: 03-22-2023 End: [...] 28 days. nitroglycerin 0.4 mg sublingual tablet (2 sources) Nitrate Vasodilator Start: 06-05-2024 End: 10-03-2024 Nitrostat 0.4 mg sublingual tablet Dose : 0.4 mg = 1 tab(s), Sublingual, q5min, PRN for chest pain, # 100 tab(s), 3 Refill(s), Pharmacy: [facility], [facility] 157.5, cm, 06/05/24 14:27:00 EDT, Height, kg, 06/05/24 14:27:00 EDT, Dosing Weight Start Date: 06/05/24 Stop Date: 10/03/24 Status: Ordered Quantity: 100.0 Unit: tab(s) Repeat number: 4 Start: 09-29-2021 End: 01-27-2022 Nitrostat 0.4 mg sublingual tablet Dose : 0.4 mg = 1 tab(s), Sublingual, q5min, PRN for chest pain, # 100 tab(s), 3 Refill(s), Pharmacy: [facility], 157, cm, 09/29/21 14:25:00 EST, Height, kg, 09/29/21 14:25:00 EST, Dosing Weight Start Date: 09/29/21 Stop Date: 01/27/22 Status: Ordered promethazine hydrochloride 25 mg oral tablet (14 sources) Phenothiazine Start: 04-24-2023 End: 01-06-2025 take 1 tablet by mouth three times daily as needed for nausea and vomiting Promethazine 25 mg tablet Discontinued 25 mg PO THREE TIMES A DAY as needed for nausea and vomiting 14 April 24, 2023 12:00am January 06, 2025 4:02pm Start: 08-20-2016 take 25 mg rectal ro yazmin every four hours as needed Promethazine (Phenergan) 25 MG suppository Active 25 MG RECTAL EVERY 4 HOURS NEEDED 14 August 20, 2016 1:00am rosuvastatin calcium 10 [...] 1 {tbl} PO TWICE A DAY 180 3 March 05, 2024 10:05am January 06, 2025 4:33pm Start: 05-22-2023 End: 03-05-2024 take 1 tablet by mouth twice daily sacubitril-valsartan 49 mg-51 mg oral tablet Dose = 1 tab(s), Oral, BID, # 60 tab(s), 0 Refill(s) Start Date: 11/15/23 Status: Ordered Quantity: 60.0 Unit: tab(s) Repeat number: 1 Start: 03-01-2023 End: 05-22-2023 Sacubitril-Valsartan (Entres to) 24-26 mg tablet Discontinued 1 {tbl} PO TWICE A DAY March 22, 2023 12:00am March 25, 2023 2:37pm Comment on above: Take 1 tablet by anuja twice daily. Take 49-51 tablets b y mouth twice daily. spironolactone 25 mg oral tablet (20 sources) Aldosterone Antagonist Start: End: take 1 tablet by mouth twice daily Spironolactone 25 mg tablet Discontinued 25 mg PO TWICE A DAY 60 0 July 22, 2023 3:44pm January 06, 2025 4:33pm Pt awaiting mail order RX, pt is OUT of pills Comment on above: Take 1 tablet by anuja twice daily. sucralfate 1000 mg oral tablet (20 sources) Aluminum Complex Start: 022 End: take 1 tablet by mouth at bedtime Sucralfate 1 gram tablet Discontinued 1 g PO before meals and at bedtime March 22, 2023 12:00am June 23, 2024 8:35am Comment on above: Take one tablet by m outh before meals and at bedtime as needed 24 hr venlafaxine 150 mg extended release oral capsule (20 sources) Serotonin and Norepinephrine Reuptake Inhibitor Start: 018 End: take 1 capsule by mouth once daily Venlafaxine (Effexor Xr) 150 mg Capsule,Extended Release 24hr Discontinued 150 mg PO DAILY February 22, 2023 12:00am June 26, 2023 1:44pm Comment on above: Take 150 mg by mouth once daily. Problems Active Problems Problem Classification Problem Date Documented Date Episodic/Chronic Abdominal hernia (16 sources) Hiatal hernia; Translations: [Diaphragmatic hernia without obstruction or gangrene] 02-22-2023 Episodic Abdominal pain (20 sources) Epigastric pain; Translations: [Epigastric pain] Onset: Episodic Acute bronchitis (1 source) Acute bacterial bronchitis 02-26-2025 Episodic Alcohol-related disorders (20 sources) Alcohol abuse; Translations: [Alcohol abuse, uncomplicated] Onset: 3 03-01-2023 Chronic Cardiac dysrhythmias (20 sources) Ventricular tachycardia; Translations: [Ventricular tachycardia] Onset: 3 02-26-2023 Chronic Chronic obstructive pulmonary disease and bronchiectasis (14 sources) Chronic obstructive lung disease; Translations: [Chronic obstructive pulmonary disease with (acute) exacerbation] Onset: 2 03-10-2020 Chronic Conduction disorders (2 sources) Cardiac defibrillator in situ; Translations: [Second degree atrioventricular block] 03-08-2023 Chronic Congestive heart failure; nonhypertensive (20 sources) Heart failure with reduced ejection fraction; Translations: [Unspecified systolic (congestive) heart failure] Onset: 3 02-22-2023 Chronic Coronary atherosclerosis and other heart disease (20 sources) Coronary arteriosclerosis; Translations: [Atherosclerotic heart disease of tangirnaq coronary artery without angina pectoris] Onset: 2 09-10-2012 Chronic Diabetes mellitus without complication (2 sources) Impaired fasting glycemia 03-10-2020 Episodic Disorders of lipid metabolism (20 sources) Dyslipidemia; Translations: [Hyperlipidemia, unspecified] Onset: 6 08-29-2016 Chronic Esophageal disorders (1 source) Gastroesophageal reflux disease with hiatal hernia 02-08-2023 Chronic Essential hypertension (20 sources) Hypertensive disorder; Translations: [Essential (primary) hypertension] Onset: 2 Resolved: 6 08-29-2016 Chronic Gastritis and duodenitis (18 sources) Gastritis; Translations: [Other gastritis without bleeding] Episodic Malaise and fatigue (4 sources) Fatigue; Translations: [Other fatigue] 03-12-2025 Episodic Mood disorders (7 sources) Depressive disorder; Translations: [Premenstrual dysphoric disorder] Onset: 2 Resolved: 5 03-10-2020 Chronic Nausea and vomiting (20 sources) Nausea and vomiting; Translations: [Nausea with vomiting, unspecified] Episodic Nutritional deficiencies (3 sources) Vitamin D deficiency; Translations: [Vitamin D deficiency, unspecified] Onset: 4 03-14-2021 Chronic Other and ill-defined heart disease (1 source) Left ventricular hypertrophy by electrocardiogram 02-08-2023 Chronic Other circulatory disease (1 source) Abdominal bruit 02-08-2023 Episodic Other connective tissue disease (4 sources) Cramp in lower limb; Translations: [Cramp and spasm] 03-12-2025 Episodic Other lower respiratory disease (15 sources) Hypoxia; Translations: [Hypoxemia] 02-22-2023 Episodic Other lower respiratory disease (9 sources) Hypoxemia; Translations: [Hypoxemia] 02-22-2023 Episodic Other non-traumatic joint disorders (2 sources) Knee pain 04-25-2020 Episodic Other non-traumatic joint disorders (1 source) Hip pain 09-28-2022 Episodic Other nutritional; endocrine; and metabolic disorders (16 sources) Obesity; Translations: [Obesity, unspecified] Onset: 6 08-29-2016 Chronic Other screening for suspected conditions (not mental disorders or infectious disease) (20 sources) Patient encounter status; Translations: [Encounter for screening for malignant neoplasm of intestinal tract, unspecified] Onset: 2 10-02-2012 Episodic Comment on above: 02/21/2023 Echocardi ogram: IMPRESSION: 1. Moderately dilated ventricle. 2. Severe global left ventricular systolic dysfunction. 3. The estimated ejection fraction is 15%. 4. There is severe global hypokinesis of the left ventricle. 5. Stage II diastolic dysfunction. 6. Global longitudinal strain is severely abnormal. 7. The global longitudinal strain equals -9.6% Other upper respiratory disease (1 source) Seasonal allergy 02-20-2024 Chronic Dania-; endo-; and myocarditis; cardiomyopathy (except that caused by tuberculosis or sexually transmitted disease) (20 sources) Dilated cardiomyopathy; Translations: [Dilated cardiomyopathy] Onset: 3 02-22-2023 Chronic Pneumonia (except that caused by tuberculosis or sexually transmitted disease) (2 sources) Pneumonia; Translations: [Pneumonia, unspecified organism] 02-22-2023 Episodic Residual codes; unclassified (2 sources) Increased body mass index 09-29-2021 Episodic Residual codes; unclassified (2 sources) Postmenopausal state; Translations: [Asymptomatic menopausal state] 09-21-2024 Episodic Residual codes; unclassified (1 source) Asymptomatic menopausal state; Translations: [Asymptomatic postmenopausal status] Onset: 5 Episodic Septicemia (except in labor) (2 sources) Sepsis; Translations: [Sepsis, unspecified organism] 02-22-2023 Episodic Spondylosis; intervertebral disc disorders; other back problems (1 source) Degeneration of lumbar intervertebral disc 11-02-2022 Chronic Comment on above: 10/20/2022 X-Ray of Lumbar Spine: FINDINGS: Normal lumbar lordosis. There is no substantial scoliosis. There is a normal alignment of the vertebra. Degenerative changes of the vertebral bodies with mild spurring of the endplates. Normal disc space heights. The soft tissue structures are unremarkable. Calcified aorta. IMPRESSION: Degenerative changes of the lumbar spine. Spondylosis; intervertebral disc disorders; other back problems (1 source) Chronic low back pain 09-28-2022 Episodic Substance-related disorders (20 sources) Nicotine dependence; Translations: [Nicotine dependence, unspecified, uncomplicated] Onset: 3 02-26-2023 Chronic Unclassified (1 source) Ventricular tachyarrhythmia (HCC); Translations: [Ventricular tachyarrhythmia (HCC)] Onset: 3 Unclassified (1 source) Other ventricular tachycardia; Translations: [Other ventricular tachycardia] Onset: 5 Unclassified (2 sources) Patient encounter status 06-05-2024 Past or Other Problems Problem Classification Problem Date Documented Da te Episodic/Chronic Coronary atherosclerosis and other heart disease (20 sources) Stented coronary artery; Translations: [Presence of coronary angioplasty implant and graft] Onset: 02-25-2023 11-06-2013 Episodic Comment on above: Successful PCI of th e culprit, mid RCA 80% stenosis :drug-eluting stent resolute Onyx3.5 x 30 mm Menopausal disorders (5 sources) Perimenopausal state; Translations: [Menopausal and female climacteric states] Onset: 09-10-2012 Resolved: 07-06-2015 07-06-2015 Chronic Other disorders of stomach and duodenum (16 sources) Gastroparesis syndrome; Translations: [Gastroparesis] Onset: 08-29-2016 08-29-2016 Episodic Residual codes; unclassified (16 sources) Tobacco user; Translations: [Tobacco use] Onset: 02-26-2023 07-12-2022 Episodic Results Test Name Value Interpretation Reference Range Facility XR UPPER GIon 05-13-2025 XR UPPER GI ORIGINAL EXAMINATION: DOUBLE CONTRAST UPPER GI SERIES 05/13/2025 TECHNIQUE: Double contrast upper GI series was performed with barium and air contrast. FLUOROSCOPY DOSE AND TYPE: Fluoroscopy time was 2.5 minutes. Radiation dose was 97.6 mGy air kerma COMPARISON: None HISTORY: ORDERING SYSTEM PROVIDED HISTORY: Reason for Exam: to evaluate for esophagitis (erosion, ulcerations, strictures) or Zavala esophagus -H. pylori???urea???stoo l or???serum???antigen ???to evaluate for the presence of H. pylori (infectious etiology) FINDINGS: The esophagus is of normal caliber and demonstrates normal motility. There are no mucosal abnormalities seen. A small hiatal hernia noted. Mild gastroesophageal reflux seen. Thickened/coarsened appearance of the gastric folds noted. No large ulceration or filling defect visible. Duodenal orientation is normal. No large ulceration visualized. Mild fold thickening suspected. IMPRESSION: Small hiatal hernia and mild gastroesophageal reflux Coarsened gastric folds may relate to gastritis. There is also questionable mild fold thickening the duodenum, possibly inflammatory in etiology. Consider upper endoscopy for further evaluation Interpreted by: Ian Cotton MD Preliminary Report By: Ian Cotton MD Electronically signed By Ian Cotton MD Dictated Date: 05/13/2025 11:45:14 AM Prelim Date: 05/13/2025 11:48:01 AM Sign Date: 05/13/2025 11:48:01 AM Ordering Provider: RICKI GRIFFIN Normal [facility] H. PYLORI STOOL AGon 025 H PYLORI STL AG Negative Normal Negative Comment on above: Result Comment: Perf ormed at: - [facility] [id number] Australian Rules Footballer: James Thompson PhD, Phone: [phone] Performed By: #### L 3100.1950 #### Laboratory [address], [place], [id number] Stool Helicobacter pylori an tigen detection by immunoassayOrdered By: Ricki Griffin on 05-01-2025 H. pylori Ag IA Ql (Stl) Negative Negative Comment on above: Performed at: [facility], [place] [id number] Director: James Thompson PhD, Phone: [phone] Anion gap in Serum or Plasma Ordered By: Ricki Griffin on 04-30-2025 Anion gap [Moles/Vol] 13 mmol/L 5-15 [facility] BUN/creatinine ratioOrdered By: Ricki Griffin on 04-30-2025 Urea nitrogen/Creatinine [Mass ratio] 26.3 mg/mg High 10- Bilirubin, totalOrdered By: Ricki Griffin on 04-30-2025 Bilirubin [Mass/Vol] 0.36 mg/dL 0.00-1.30 [facility] CBC-Complete Blood Cnt No Di ffon 04-30-2025 Erythrocyte distribution width (RBC) [Ratio] 13.4 % Normal 11.6-14.6 Comment on above: Performed By: #### L 100.0500, L500.4050, L501.2450 #### Laboratory [address], [place], [id number] Hematocrit (Bld) [Volume fraction] 37.4 % Normal 37-47 Comment on above: Performed By: #### L 100.0500, L500.4050, L501.2450 #### Laboratory [address], [place], [id number] Hemoglobin (Bld) [Mass/Vol] 12.3 g/dL Normal 12.0-15.0 Comment on above: Performed By: #### L 100.0500, L500.4050, L501.2450 #### Laboratory [address] [place], [address] MCH (RBC) [Entitic mass] 31.1 pg Normal 27.0-32.0 Comment on above: Performed By: #### L 100.0500, L500.4050, L501.2450 #### Laboratory [address] [place], [address] MCHC (RBC) [Mass/Vol] 32.9 g/dL Normal 32-36 [facility] Comment on above: Performed By: #### L 100.0500, L500.4050, L501.2450 #### Laboratory [address] [place], [address] MCV (RBC) [Entitic vol] 94.4 fL Normal 81-99 [facility] [place] Comment on above: Performed By: #### L 100.0500, L500.4050, L501.2450 #### Laboratory [address] [place], [address] Platelet mean volume (Bld) [Entitic vol] 9.4 fL Normal 6.2-12.0 Comment on above: Performed By: #### L 100.0500, L500.4050, L501.2450 #### Laboratory [address] [place], [address] Platelets (Bld) [#/Vol] 373 10*3/uL Normal 150-450 Comment on above: Performed By: #### L 100.0500, L500.4050, L501.2450 #### Laboratory [address] [place], [address] RBC (Bld) [#/Vol] 3.96 10*6/uL Low 4.2-5.4 [facility] Comment on above: Performed By: #### L 100.0500, L500.4050, L501.2450 #### Laboratory [address] [place], [address] RDW SD 46.9 fl High 35.1-43.9 Comment on above: Performed By: #### L 100.0500, L500.4050, L501.2450 #### Laboratory [address] [place], [address] WBC (Bld) [#/Vol] 7.2 10*3/uL Normal 4.4-11.0 [facility] Comment on above: Performed By: #### L 100.0500, L500.4050, L501.2450 #### Laboratory [address] [place], [address] Carbon dioxide, total [Moles /volume] in Central venous bloodOrdered By: Ricki Griffin on 04-30-2025 CO2 [Moles/Vol] 25.4 mmol/L 21.0-32.0 Chloride assayOrdered By: Tammy Griffin on 04-30-2025 Chloride [Moles/Vol] 99 mmol/L 98-108 [facility] Comprehensive Metabolic Prof ilon 04-30-2025 Albumin [Mass/Vol] 4.5 g/dL Normal 3.4-4.8 [facility] Comment on above: Performed By: #### L 100.0500, L500.4050, L501.2450 #### Laboratory [address] [place], [address] Albumin/Globulin [Mass ratio] 1.6 {ratio} Normal 0.9-2.4 Comment on above: Performed By: #### L 100.0500, L500.4050, L501.2450 #### Laboratory [address] [place], [address] ALK PHOS 77 U/L Normal 35-104 Comment on above: Performed By: #### L 100.0500, L500.4050, L501.2450 #### Laboratory [address] [place], [address] ALT [Catalytic activity/Vol] 23 U/L Normal <=34 Comment on above: Performed By: #### L 100.0500, L500.4050, L501.2450 #### Laboratory [address] [place], [address] AST [Catalytic activity/Vol] 21 U/L Normal <=31 Comment on above: Performed By: #### L 100.0500, L500.4050, L501.2450 #### Laboratory [address] [place], [address] Bilirubin [Mass/Vol] 0.36 mg/dL Normal 0.00-1.30 [facility] Comment on above: Performed By: #### L 100.0500, L500.4050, L501.2450 #### Laboratory [address] [place], [address] BUN/CRE 26.3 RATIO High 10-20 Comment on above: Performed By: #### L 100.0500, L500.4050, L501.2450 #### Laboratory [address] [place], [address] Calcium [Mass/Vol] 9.9 mg/dL Normal 7.6-11.0 [facility] Comment on above: Performed By: #### L 100.0500, L500.4050, L501.2450 #### Laboratory [address] [place], [address] Chloride [Moles/Vol] 99 mmol/L Normal 98-108 [facility] Comment on above: Performed By: #### L 100.0500, L500.4050, L501.2450 #### Laboratory [address] [place], [address] CO2 [Moles/Vol] 25.4 mmol/L Normal 21.0-32.0 Comment on above: Performed By: #### L 100.0500, L500.4050, L501.2450 #### Laboratory [address] [place], [address] Creatinine [Mass/Vol] 0.96 mg/dL Normal 0.70-1.20 [facility] Comment on above: Performed By: #### L 100.0500, L500.4050, L501.2450 #### Laboratory [address] [place], [address] GAP 13 Normal 5-15 Comment on above: Performed By: #### L 100.0500, L500.4050, L501.2450 #### Laboratory [address] [place], [address] GFR/1.73 sq M.predicted among non-blacks MDRD (S/P/Bld) [Vol rate/Area] 67 mL/min/{1.73_m2} Normal >60 [facility] Comment on above: Result Comment: mL/m in/1.73m2 CKD-EPI Creatinine Equation (2020) Performed By: #### L 100.0500, L500.4050, L501.2450 #### Laboratory [address] [place], [address] Globulin (S) [Mass/Vol] 2.8 g/dL Normal 2.2-4.2 [facility] [place] Comment on above: Performed By: #### L 100.0500, L500.4050, L501.2450 #### Laboratory [address] [place], [address] Glucose [Mass/Vol] 109 mg/dL High 70-99 [facility] Comment on above: Performed By: #### L 100.0500, L500.4050, L501.2450 #### Laboratory [address] [place], [address] Potassium [Moles/Vol] 4.0 mmol/L Normal 3.3-5.1 [facility] Comment on above: Performed By: #### L 100.0500, L500.4050, L501.2450 #### Laboratory [address] [place], [address] Sodium [Moles/Vol] 138 mmol/L Normal 133-145 [facility] Comment on above: Performed By: #### L 100.0500, L500.4050, L501.2450 #### Laboratory [address] [place], [address] T PROT 7.2 g/dL Normal 5.9-8.4 Comment on above: Performed By: #### L 100.0500, L500.4050, L501.2450 #### Laboratory [address] [place], [address] Urea nitrogen [Mass/Vol] 25 mg/dL High 4-19 Comment on above: Performed By: #### L 100.0500, L500.4050, L501.2450 #### Laboratory [address] [place], [address] Erythrocyte distribution wid th ratioOrdered By: Ricki Griffin on 04-30-2025 Erythrocyte distribution width (RBC) [Ratio] 13.4 % 11.6-14.6 Erythrocyte distribution wid th standard deviationOrdered By: Ricki Griffin on 04-30-2025 Erythrocyte distribution width (RBC) [Ratio] 46.9 fl High 35.1-43.9 Glomerular filtration rate ( GFR) estimation/1.73 sq m using serum, plasma, or whole bOrdered By: Ricki Griffin on 04-30-2025 GFR/1.73 sq M.predicted among non-blacks MDRD (S/P/Bld) [Vol rate/Area] 67 mL/min/{1.73_m2} >60 [facility] Comment on above: mL/min/1.73m2 CKD-EP I Creatinine Equation (2020) Hematocrit Auto (Bld) [Volum e fraction]Ordered By: Ricki Griffin on 04-30-2025 Hematocrit (Bld) [Volume fraction] 37.4 % 37-47 Hemoglobin measurementOrdere d By: Ricki Griffin on 04-30-2025 Hemoglobin (Bld) [Mass/Vol] 12.3 g/dL 12.0-15.0 Laboratory - Chemistry and C hemistry - challengeOrdered By: Ricik Griffin on 04-30-2025 AST [Catalytic activity/Vol] 21 U/L <32 Lipaseon 04-30-2025 Lipase [Catalytic activity/Vol] 29 U/L Normal 13-75 Comment on above: Result Comment: Magui hurst note: LIPASE revised reference range effective 23. New Lipase methodology. Expected to produce lower values than the previous assay method. NEW Reference Range: 13 - 75 U/L Performed By: #### L 100.0500, L500.4050, L501.2450 #### Laboratory [address] [place] [address], [id number] Lipase measurementOrdered By : Ricki Griffin on 04-30-2025 Lipase [Catalytic activity/Vol] 29 U/L 13-75 Comment on above: Please note:LIPASE r evised reference range effective 23. New Lipase methodology. Expected to produce lower values than the previous assay method. NEW Reference Range: 13 - 75 U/L MCV (mean corpuscular volume ) determinationOrdered By: Ricki Griffin on 04-30-2025 MCV (RBC) [Entitic vol] 94.4 fL 81-99 [facility] Mean corpuscular hemoglobin (MCH) determinationOrdered By: Ricki Griffin on 04-30-2025 MCH (RBC) [Entitic mass] 31.1 pg 27.0-32.0 Mean corpuscular hemoglobin concentration (MCHC) determinationOrdered By: Ricki Griffin on 04-30-2025 MCHC (RBC) [Mass/Vol] 32.9 g/dL 32-36 [facility] Mean platelet volume determi nationOrdered By: Ricki Griffin on 04-30-2025 Platelet mean volume (Bld) [Entitic vol] 9.4 fL 6.2-12.0 Platelet countOrdered By: Tammy Griffin on 04-30-2025 Platelets (Bld) [#/Vol] 373 10*3/uL 150-450 Potassium measurement (mass/ volume)Ordered By: Ricki Griffin on 04-30-2025 Potassium (Unsp spec) [Mass/Vol] 4.0 mmol/L 3.3-5.1 RBC Auto (Bld) [#/Vol]Ordere d By: Ricki Griffin on 04-30-2025 RBC (Bld) [#/Vol] 3.96 10*6/uL Low 4.2-5.4 [facility] Serum creatinine measurement (mass/volume)Ordered By: Ricki Griffin on 04-30-2025 Creatinine [Mass/Vol] 0.96 mg/dL 0.70-1.20 [facility] Serum globulin measurementOr dered By: Ricki Griffin on 04-30-2025 Globulin (S) [Mass/Vol] 2.8 g/dL 2.2-4.2 [facility] Serum glucose measurement (m ass/volume)Ordered By: Ricki Griffin on 04-30-2025 Glucose [Mass/Vol] 109 mg/dL High 70-99 [facility] Serum or plasma alanine herrera otransferase (ALT) measurementOrdered By: Ricki Griffin on 04-30-2025 ALT [Catalytic activity/Vol] 23 U/L <35 Serum or plasma albumin virgie urement (mass/volume)Ordered By: Ricki Griffin 04-30-2025 Albumin [Mass/Vol] 4.5 g/dL 3.4-4.8 [facility] Serum or plasma albumin/glob ulin mass ratioOrdered By: Ricki Griffin on 04-30-2025 Albumin/Globulin [Mass ratio] 1.6 {ratio} 0.9-2.4 Serum or plasma alkaline sherri sphatase measurementOrdered By: Ricki Griffin on 04-30-2025 ALP [Catalytic activity/Vol] 77 U/L 35-104 Serum or plasma calcium virgie urement (mass/volume)Ordered By: Ricki Griffin on 04-30-2025 Calcium [Mass/Vol] 9.9 mg/dL 7.6-11.0 [facility] Serum or plasma urea nitroge n measurement (mass/volume)Ordered By: Ricki Griffin on 04-30-2025 Urea nitrogen [Mass/Vol] 25 mg/dL High 4-19 Sodium levelOrdered By: Froylan Griffin on 04-30-2025 Sodium [Moles/Vol] 138 mmol/L 133-145 [facility] Total proteinOrdered By: Godfrey Griffin on 04-30-2025 Protein [Mass/Vol] 7.2 g/dL 5.9-8.4 [facility] White blood cell (WBC) count Ordered By: Ricki Griffin on 04-30-2025 WBC (Bld) [#/Vol] 7.2 10*3/uL 4.4-11.0 [facility] Echo, Limited Studyon 2024 Echo, Limited Study [facility] [address] [place] [address] Echo, Limited Study 03/29/25 1258 MR#: [id number] Acct: [id number] Name: VISHAL GEORGE Rep #: [id number] : 1960 65 From: Jose Antonio Reeves MD Attending Dr: Austen Castro, [employer]-C Status: REG CLI Ordering Dr: Austen Castro [employer]ER C[employer]-C Date: 03/29/25 Location: [facility] Sex: F C Admitted: Reason For Study [...] 03/29/251903 Date Jose Antonio Reeves MD CC: [employer] Austen Castro; RADHAC Ricki Griffin Date Dictated: 03/29/251257 Date Transcribed: 03/29/251903 Laundry Tech: Signed Normal Limited echocardiogram repor tOrdered By: Jose Antonio Reeves on 03-29-2025 Study report [facility] [address] [place] [address] Echo, Limited Study 03/29/25 1258 MR#: [id number] Acct: [id number] Name: VISHAL GEORGE Rep #:[id number] : 1960 65 From: Jose Antonio Carlson Attending Dr: PHONG Olivares Sta tus: REG CLI Ordering Dr: Austen Castro NP COTTON CLEANERPhilippeC Date: 03/29/25 Location: [facility] Sex: F C Admitted: Reason For Study [...] Performed By: Shahzad Jones RCS 03/29/251903 Date _ Jose Antonio Reeves MD CC: PHONG Castor; PHONG Griffin ~ Date Dictated: 03/29/25 1258 Date Transcribed: 03/29/251903 Laundry Tech: Signed Work Phone: Absolute lymphocyte countOrd ered By: Jose Antonio Reeves on 03-12-2025 Lymphocytes Auto (Unsp spec) [#/Vol] 1.63 10*3/uL 0.83-4.51 Absolute neutrophil countOrd ered By: Jose Antonio Reeves on 03-12-2025 Neutrophils (Bld) [#/Vol] 4.5 10*3/uL 2.0-7.7 Anion gap in Serum or Plasma Ordered By: [facility] on 03-12-2025 Anion gap [Moles/Vol] 12 mmol/L 5-15 [facility] Automated lymphocyte count a s percentage of total leukocytesOrdered By: [facility] on 03-12-2025 Lymphocytes/100 WBC Auto (Unsp spec) 22.6 % 19-41 BUN/creatinine ratioOrdered By: Jose Antonio [facility] on 03-12-2025 Urea nitrogen/Creatinine [Mass ratio] 23.1 mg/mg High 10- Basic Metabolic Profile (BMP )on 03-12-2025 BUN/CRE 23.1 RATIO High 08-02 Comment on above: Performed By: #### L 501.9520, L503.7505, L500.2500, L501.9310, L100.0100 #### [id number] [place], [address] Calcium [Mass/Vol] 10.0 mg/dL Normal 7.6-11.0 [facility] Comment on above: Performed By: #### L 501.9520, L503.7505, L500.2500, L501.9310, L100.0100 #### [id number] [place], [address] Chloride [Moles/Vol] 100 mmol/L Normal 98-108 [facility] Comment on above: Performed By: #### L 501.9520, L503.7505, L500.2500, L501.9310, L100.0100 #### [id number] [place], [address] CO2 [Moles/Vol] 24.9 mmol/L Normal 21.0-32.0 Comment on above: Performed By: #### L 501.9520, L503.7505, L500.2500, L501.9310, L100.0100 #### [id number] [place], [address] Creatinine [Mass/Vol] 0.78 mg/dL Normal 0.70-1.20 [facility] Comment on above: Performed By: #### L 501.9520, L503.7505, L500.2500, L501.9310, L100.0100 #### [id number] [place], [address] GAP 12 Normal 5-15 Comment on above: Performed By: #### L 501.9520, L503.7505, L500.2500, L501.9310, L100.0100 #### [address] [place], [address] GFR/1.73 sq M.predicted among non-blacks MDRD (S/P/Bld) [Vol rate/Area] 86 mL/min/{1.73_m2} Normal >60 [facility] Comment on above: Result Comment: mL/m in/1.73m2 CKD-EPI Creatinine Equation (2020) Performed By: #### L 501.9520, L503.7505, L500.2500, L501.9310, L100.0100 #### [id number] [place], [address] Glucose [Mass/Vol] 90 mg/dL Normal 70-99 [facility] Comment on above: Performed By: #### L 501.9520, L503.7505, L500.2500, L501.9310, L100.0100 #### [id number] [place], [address] Potassium [Moles/Vol] 4.2 mmol/L Normal 3.3-5.1 [facility] Comment on above: Performed By: #### L 501.9520, L503.7505, L500.2500, L501.9310, L100.0100 #### [address] [place], [address] Sodium [Moles/Vol] 137 mmol/L Normal 133-145 [facility] Comment on above: Performed By: #### L 501.9520, L503.7505, L500.2500, L501.9310, L100.0100 #### [address] [place], [address] Urea nitrogen [Mass/Vol] 18 mg/dL Normal 4-19 Comment on above: Performed By: #### L 501.9520, L503.7505, L500.2500, L501.9310, L100.0100 #### [address] [place], [address] Basophil percentageOrdered B y: Jose Antonio Leandro on 03-12-2025 Basophils/100 WBC (Bld) 1.3 % High 0-1 [facility] CBC W/Diff, Automatedon 02-13 Absolute Lymph 1.63 X10 3/uL Normal 0.83-4.51 Comment on above: Performed By: #### L 501.9520, L503.7505, L500.2500, L501.9310, L100.0100 #### [address] [place], [address] Absolute Neut 4.5 X10 3/uL Normal 2.0-7.7 Comment on above: Performed By: #### L 501.9520, L503.7505, L500.2500, L501.9310, L100.0100 #### [address] [place], [address] Basophils/100 WBC (Bld) 1.3 % High 0-1 [facility] Comment on above: Performed By: #### L 501.9520, L503.7505, L500.2500, L501.9310, L100.0100 #### [address] [place], [address] Eosinophils/100 WBC (Bld) 3.8 % Normal 0-5 Comment on above: Performed By: #### L 501.9520, L503.7505, L500.2500, L501.9310, L100.0100 #### [address] [place], [address] Erythrocyte distribution width (RBC) [Ratio] 13.3 % Normal 11.6-14.6 Comment on above: Performed By: #### L 501.9520, L503.7505, L500.2500, L501.9310, L100.0100 #### [address] [place], [address] Hematocrit (Bld) [Volume fraction] 41.6 % Normal 37-47 Comment on above: Performed By: #### L 501.9520, L503.7505, L500.2500, L501.9310, L100.0100 #### [address] [place], [address] Hemoglobin (Bld) [Mass/Vol] 13.6 g/dL Normal 12.0-15.0 Comment on above: Performed By: #### L 501.9520, L503.7505, L500.2500, L501.9310, L100.0100 #### [address] [place], [address] IG% 0.400 Normal 0.0-0.9 Comment on above: Result Comment: IG% - Immature Granulocytes (promyelocytes, myelocytes and metamyelocytes) > 1% indicates that a LEFT SHIFT is Present. Performed By: #### L 501.9520, L503.7505, L500.2500, L501.9310, L100.0100 #### [address] [place], [address] Lymphocytes/100 WBC (Bld) 22.6 % Normal 19-41 Comment on above: Performed By: #### L 501.9520, L503.7505, L500.2500, L501.9310, L100.0100 #### [address] [place], [address] MCH (RBC) [Entitic mass] 30.1 pg Normal 27.0-32.0 Comment on above: Performed By: #### L 501.9520, L503.7505, L500.2500, L501.9310, L100.0100 #### [address] [place], [address] MCHC (RBC) [Mass/Vol] 32.7 g/dL Normal 32-36 [facility] Comment on above: Performed By: #### L 501.9520, L503.7505, L500.2500, L501.9310, L100.0100 #### [address] [place], [address] MCV (RBC) [Entitic vol] 92.0 fL Normal 81-99 [facility] [place] Comment on above: Performed By: #### L 501.9520, L503.7505, L500.2500, L501.9310, L100.0100 #### [address] [place], [address] Monocytes/100 WBC (Bld) 10.0 % Normal 0-10 [facility] Comment on above: Performed By: #### L 501.9520, L503.7505, L500.2500, L501.9310, L100.0100 #### [address] [place], [address] Neutrophils/100 WBC (Bld) 61.9 % Normal 47-70 Comment on above: Performed By: #### L 501.9520, L503.7505, L500.2500, L501.9310, L100.0100 #### [address] [place], [address] Nucleated RBC (Bld) [#/Vol] 0 10*3/uL Normal 0-5 Comment on above: Performed By: #### L 501.9520, L503.7505, L500.2500, L501.9310, L100.0100 #### [address] [place], [address] Platelet mean volume (Bld) [Entitic vol] 9.5 fL Normal 6.2-12.0 Comment on above: Performed By: #### L 501.9520, L503.7505, L500.2500, L501.9310, L100.0100 #### [address] [place], [address] Platelets (Bld) [#/Vol] 424 10*3/uL Normal 150-450 Comment on above: Performed By: #### L 501.9520, L503.7505, L500.2500, L501.9310, L100.0100 #### [address] [place], [address] RBC (Bld) [#/Vol] 4.52 10*6/uL Normal 4.2-5.4 [facility] Comment on above: Performed By: #### L 501.9520, L503.7505, L500.2500, L501.9310, L100.0100 #### [address] [place], [address] RDW SD 45.1 fl High 35.1-43.9 Comment on above: Performed By: #### L 501.9520, L503.7505, L500.2500, L501.9310, L100.0100 #### [address] [place], [address] WBC (Bld) [#/Vol] 7.2 10*3/uL Normal 4.4-11.0 [facility] Comment on above: Performed By: #### L 501.9520, L503.7505, L500.2500, L501.9310, L100.0100 #### [address] [place], [address] Carbon dioxide, total [Moles /volume] in Central venous bloodOrdered By: Morris Leandro on 03-12-2025 CO2 [Moles/Vol] 24.9 mmol/L 21.0-32.0 Chloride assayOrdered By: Cy ril Leandro on 03-12-2025 Chloride [Moles/Vol] 100 mmol/L 98-108 [facility] Eosinophil percentageOrdered By: Jose Antonio Leandro on 03-12-2025 Eosinophils/100 WBC (Bld) 3.8 % 0-5 Erythrocyte distribution wid th ratioOrdered By: Morris Leandro on 03-12-2025 Erythrocyte distribution width (RBC) [Ratio] 13.3 % 11.6-14.6 Erythrocyte distribution wid th standard deviationOrdered By: Morris Leandro on 03-12-2025 Erythrocyte distribution width (RBC) [Ratio] 45.1 fl High 35.1-43.9 Glomerular filtration rate ( GFR) estimation/1.73 sq m using serum, plasma, or whole bOrdered By: Jose Antonio Leandro on 03-12-2025 GFR/1.73 sq M.predicted among non-blacks MDRD (S/P/Bld) [Vol rate/Area] 86 mL/min/{1.73_m2} >60 [facility] Comment on above: mL/min/1.73m2 CKD-EP I Creatinine Equation (2020) Hematocrit Auto (Bld) [Volum e fraction]Ordered By: Jose Antonio Leandro on 03-12-2025 Hematocrit (Bld) [Volume fraction] 41.6 % 37-47 Hemoglobin measurementOrdere d By: Jose Antonio Reeves on 03-12-2025 Hemoglobin (Bld) [Mass/Vol] 13.6 g/dL 12.0-15.0 Immature granulocytes/100 WB C Auto (Bld)Ordered By: Jose Antonio [facility] on 03-12-2025 Immature granulocytes/100 WBC (Bld) 0.400 % 0.0-0.9 Comment on above: IG% - Immature Granu locytes (promyelocytes, myelocytes and metamyelocytes) > 1% indicates that a LEFT SHIFT is Present. L503.7505on 03-12-2025 Natriuretic peptide B (Bld) [Mass/Vol] 916 pg/mL High <=900 Comment on above: Result Comment: Hear t Failure Unlikely: < 300 pg/mL Heart Failure Likely < 50 Years: > 450 pg/mL 50-75 Years: > 900 pg/mL >75 Years: > 1800 pg/mL Performed By: #### L 501.9520, L503.7505, L500.2500, L501.9310, L100.0100 #### [address] [place], [place], [address] MCV (mean corpuscular volume ) determinationOrdered By: Jose Antonio Leandro on 03-12-2025 MCV (RBC) [Entitic vol] 92.0 fL 81-99 [facility] [place] Mean corpuscular hemoglobin (MCH) determinationOrdered By: Jose Antonio Leandro on 03-12-2025 MCH (RBC) [Entitic mass] 30.1 pg 27.0-32.0 Mean corpuscular hemoglobin concentration (MCHC) determinationOrdered By: Morris Leandro on 03-12-2025 MCHC (RBC) [Mass/Vol] 32.7 g/dL 32-36 [facility] Mean platelet volume determi nationOrdered By: Jose Antonio Leandro on 03-12-2025 Platelet mean volume (Bld) [Entitic vol] 9.5 fL 6.2-12.0 Monocyte percentageOrdered B y: Jose Antonio Leandro on 03-12-2025 Monocytes/100 WBC (Bld) 10.0 % 0-10 [facility] Natriuretic peptide.B prohor clive N-Terminal [Mass/volume] in Serum or PlasmaOrdered By: Jose Antonio Leandro on 03-12-2025 Natriuretic peptide.B prohormone N-Terminal [Mass/Vol] 916 pg/mL High <900 Comment on above: Heart Failure Unlike ly: < 300 pg/mLHeart Failure Likely< 50 Years: > 450 pg/mL50-75 Years: > 900 pg/mL>75 Years: > 1800 pg/mL Neutrophil percentageOrdered By: Jose Antonio Leandro on 03-12-2025 Neutrophils/100 WBC (Bld) 61.9 % 47-70 Nucleated red blood cell per centageOrdered By: Morris Leandro on 03-12-2025 Nucleated RBC/100 WBC (Bld) [Ratio] 0 % 0-5 Platelet countOrdered By: Cy ril Leandro on 03-12-2025 Platelets (Bld) [#/Vol] 424 10*3/uL 150-450 Potassium measurement (mass/ volume)Ordered By: Jose Antonio Leandro on 03-12-2025 Potassium (Unsp spec) [Mass/Vol] 4.2 mmol/L 3.3-5.1 RBC Auto (Bld) [#/Vol]Ordere d By: Morris Leandro on 03-12-2025 RBC (Bld) [#/Vol] 4.52 10*6/uL 4.2-5.4 [facility] Serum creatinine measurement (mass/volume)Ordered By: Morris Leandro on 03-12-2025 Creatinine [Mass/Vol] 0.78 mg/dL 0.70-1.20 [facility] Serum glucose measurement (m ass/volume)Ordered By: Morris Leandro on 03-12-2025 Glucose [Mass/Vol] 90 mg/dL 70-99 [facility] Serum or plasma calcium virgie urement (mass/volume)Ordered By: Jose Antonio Leandro on 03-12-2025 Calcium [Mass/Vol] 10.0 mg/dL 7.6-11.0 [facility] Serum or plasma urea nitroge n measurement (mass/volume)Ordered By: Jose Antonio Reeves on 03-12-2025 Urea nitrogen [Mass/Vol] 18 mg/dL 4-19 Sodium levelOrdered By: Jenna Reeves on 03-12-2025 Sodium [Moles/Vol] 137 mmol/L 133-145 [facility] T4 Total, Thyroxinon 025 T4 [Mass/Vol] 6.6 ug/dL Normal 4.8-13.9 Comment on above: Performed By: #### L 501.9520, L503.7505, L500.2500, L501.9310, L100.0100 #### [address] [place], [place], [id number] TSH DL <= 0.005 mIU/L QnOrde red By: Jose Antonio Reeves on 03-12-2025 TSH Qn 1.950 uIU/mL 0.300-4.200 Thyroid Stim Hormone (TSH)on 03-12-2025 TSH 1.950 uIU/mL Normal 0.300-4.200 Comment on above: Performed By: #### L 501.9520, L503.7505, L500.2500, L501.9310, L100.0100 #### [address] [place], [place], [id number] ThyroxineOrdered By: Jose Antonio guido on 03-12-2025 T4 [Mass/Vol] 6.6 ug/dL 4.8-13.9 White blood cell (WBC) count Ordered By: Jose Antonio Reeves on 03-12-2025 WBC (Bld) [#/Vol] 7.2 10*3/uL 4.4-11.0 [facility] Cardiology Visit Reporton Cardiology Visit Report [facility] [address] [place], [place] [id number] OFFICE VISIT Date of Service: 01/06/25 MR#: [id number] Acct: [id number] Name: VISHAL GEORGE Rep #: [id number] : 1960 Provider: PHONG rome Age/Sex: 64/F Location: [facility] Status: Signed with Addenda ADDENDUM by PHONG Castro on 01/06/25 at 1636 Assessment and Plan Assessment and Plan (1) Ischemic cardiomyopathy: Status: Acute Plan: Ischemic cardiomyopathy: Echocardiogram 10/08/2023-EF: 45% Twelve-lead EC04/24/2023-normal sinus rhythm at 80 bpm and QRS 100 [place] [employer] Functional Class: 1 ACC/AHA stage: [...] updated, as necessary. Follow Up: 6 Months (COTTON CLEANER/PA) 12-15 Months (KAIAKO KURA KAUPAPA MAORI) 01/06/25 1636 Date Austen Castro NP [employer]-C cc: COTTON CLEANERPhilippeC Ricki Griffin * Signed HPI HPI History of Present Illness Details: VISHAL GEORGE, is a 64 F who presents to the office today for a cardiovascular follow-up visit. Patient presented to for severe nausea and vomiting. Patient was [...] V. tach/wide-complex tachycardia. She was transferred to [facility] for ICD evaluation. 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 [facility] 12-21-2024 [facility] Telephone (OBGYWM) VISHAL GEORGE ([id number]) 1960 F Date Time Provider Department 12/21/24 ARACELIS MCCORMICK OBGYWM During your visit today, [...] 12/21/2024 Noted Resolved Coronary artery disease involving tangirnaq howard*09/10/2012 Unspecified essential hypertension [I10] 09/10/2012 08/29/2016 [...] Status:Closed by DINAH SINGH on 12/21/24 Normal [facility] Albumin to globulin ratioOrd ered By: Ricki Griffin on 12-07-2024 Albumin/Globulin [Mass ratio] 1.1 {ratio} 0.9-2.4 Bilirubin, totalOrdered By: Ricki Griffin on 12-07-2024 Bilirubin [Mass/Vol] 0.20 mg/dL 0.20-1.00 [facility] Comment on above: For patients on eltr ombopag therapy, use of Dimension Birney TBIL is not recommended. Blood urea nitrogen (BUN)/cr eatinine ratioOrdered By: Ricki Griffin on 12-07-2024 Urea nitrogen/Creatinine [Mass ratio] 25.3 mg/mg High 08-02 Carbon dioxide measurementOr dered By: Ricki Griffin on 12-07-2024 CO2 [Moles/Vol] 27.0 mmol/L 21.0-32.0 Chloride measurementOrdered By: Ricki Griffin on 12-07-2024 Chloride [Moles/Vol] 105 mmol/L 98-107 [facility] Comprehensive Metabolic Prof ilon 12-07-2024 Albumin [Mass/Vol] 3.6 g/dL Normal 3.2-5.0 [facility] Comment on above: Performed By: #### L 506.1000, L500.4100, L501.9985, L500.4050, L502.0250 #### [address] [place], [address] Albumin/Globulin [Mass ratio] 1.1 {ratio} Normal 0.9-2.4 Comment on above: Performed By: #### L 506.1000, L500.4100, L501.9985, L500.4050, L502.0250 #### [address] [place], [address] ALK P 72 U/L Normal 45-117 Comment on above: Performed By: #### L 506.1000, L500.4100, L501.9985, L500.4050, L502.0250 #### [address] [place], [address] ALT [Catalytic activity/Vol] 23 U/L Normal 13-56 Comment on above: Performed By: #### L 506.1000, L500.4100, L501.9985, L500.4050, L502.0250 #### [address] [place], [address] AST [Catalytic activity/Vol] 17 U/L Normal 15-37 Comment on above: Performed By: #### L 506.1000, L500.4100, L501.9985, L500.4050, L502.0250 #### [address] [place], [address] Bilirubin [Mass/Vol] 0.20 mg/dL Normal 0.20-1.00 [facility] Comment on above: Result Comment: For patients on eltrombopag therapy, use of Dimension Birney TBIL is not recommended. Performed By: #### L 506.1000, L500.4100, L501.9985, L500.4050, L502.0250 #### [address] [place], [address] BUN/CRE 25.3 RATIO High 10-20 Comment on above: Performed By: #### L 506.1000, L500.4100, L501.9985, L500.4050, L502.0250 #### [address] [place], [address] CA,Total 9.2 mg/dL Normal 8.5-10.1 Comment on above: Performed By: #### L 506.1000, L500.4100, L501.9985, L500.4050, L502.0250 #### [address] [place], [address] Chloride [Moles/Vol] 105 mmol/L Normal 98-107 [facility] Comment on above: Performed By: #### L 506.1000, L500.4100, L501.9985, L500.4050, L502.0250 #### [address] [place], [address] CO2 [Moles/Vol] 27.0 mmol/L Normal 21.0-32.0 Comment on above: Performed By: #### L 506.1000, L500.4100, L501.9985, L500.4050, L502.0250 #### [address] [place], [address] Creatinine [Mass/Vol] 0.71 mg/dL Normal 0.55-1.02 [facility] Comment on above: Result Comment: The validity of the calculated GFR GFRAA in patients over 70 years has not been determined. Clinical correlation is essential. Performed By: #### L 506.1000, L500.4100, L501.9985, L500.4050, L502.0250 #### [address] [place], [address] EST GFR - AA 107 mL/min Normal >60 Comment on above: Result Comment: Afri can [place] GFR Calc Performed By: #### L 506.1000, L500.4100, L501.9985, L500.4050, L502.0250 #### [address] [place], [address] GAP 7 Normal 5-15 Comment on above: Performed By: #### L 506.1000, L500.4100, L501.9985, L500.4050, L502.0250 #### [address] [place], [address] GFR/1.73 sq M.predicted among non-blacks MDRD (S/P/Bld) [Vol rate/Area] 88 mL/min/{1.73_m2} Normal >60 [facility] Comment on above: Result Comment: Non- GFR Calc Performed By: #### L 506.1000, L500.4100, L501.9985, L500.4050, L502.0250 #### [address] [place], [address] Globulin (S) [Mass/Vol] 3.3 g/dL Normal 2.2-4.2 [facility] Comment on above: Performed By: #### L 506.1000, L500.4100, L501.9985, L500.4050, L502.0250 #### [address] [place], [address] Glucose [Mass/Vol] 105 mg/dL Normal 74-106 [facility] Comment on above: Result Comment: Fast ing Glucose result from 100 to 125 mg/dL suggests IMPAIRED HOMEOSTASIS per A.D.A. criteria. Performed By: #### L 506.1000, L500.4100, L501.9985, L500.4050, L502.0250 #### [address] [place], [address] Potassium [Moles/Vol] 4.2 mmol/L Normal 3.5-5.1 [facility] Comment on above: Performed By: #### L 506.1000, L500.4100, L501.9985, L500.4050, L502.0250 #### [address] [place], [address] Sodium [Moles/Vol] 139 mmol/L Normal 136-145 [facility] Comment on above: Performed By: #### L 506.1000, L500.4100, L501.9985, L500.4050, L502.0250 #### [address] [place], [address] T PROT 6.9 g/dL Normal 6.4-8.2 Comment on above: Performed By: #### L 506.1000, L500.4100, L501.9985, L500.4050, L502.0250 #### [address] [place], [address] Urea nitrogen [Mass/Vol] 18 mg/dL Normal 7-18 Comment on above: Performed By: #### L 506.1000, L500.4100, L501.9985, L500.4050, L502.0250 #### [address] [place], [address] Glomerular filtration rate ( GFR) estimationOrdered By: Ricki Griffin on 12-07-2024 GFR/1.73 sq M.predicted among non-blacks MDRD (S/P/Bld) [Vol rate/Area] 88 mL/min/{1.73_m2} >60 [facility] Comment on above: Non- GFR Calc Glucose measurementOrdered B y: Ricki Griffin on 12-07-2024 Glucose [Mass/Vol] 105 mg/dL 74-106 [facility] Comment on above: Fasting Glucose resu lt from 100 to 125 mg/dL suggests IMPAIRED HOMEOSTASIS per A.D.A. criteria. Hemoglobin A1con 12-07-2024 HbA1c (Bld) [Mass fraction] 5.4 % Normal 3.8-5.6 Comment on above: Result Comment: Norm al < 5.7 % Prediabetic 5.7 - 6.4 % Diabetic >or= 6.5 % Please note range changes. Performed By: #### L 506.1000, L500.4100, L501.9985, L500.4050, L502.0250 #### [address] [place], [place], [address] Hemoglobin A1c percentageOrd ered By: Ricki Griffin on 12-07-2024 HbA1c (Bld) [Mass fraction] 5.4 % 3.8-5.6 Comment on above: Normal < 5.7 % Predi abetic 5.7 - 6.4 % Diabetic >or= 6.5 % Please note range changes. High density lipoprotein (HD L) measurementOrdered By: Ricki Griffin on 12-07-2024 Cholesterol in HDL [Mass/Vol] 50 mg/dL >40 Comment on above: The drugs N-Acetylcy steine and Metamizole may falsely depress this assay. Reference Range HDL <40 mg/dL Low HDL Cholesterol HDL >or= 60 mg/dL High HDL Cholesterol Laboratory - Chemistry and C hemistry - challengeOrdered By: Ricki Griffin on 12-07-2024 AST [Catalytic activity/Vol] 17 U/L 15-37 Lipid Profileon 12-07-2024 Cholesterol [Mass/Vol] 172 mg/dL Normal 200 [facility] Comment on above: Result Comment: <200 mg/dL Desirable 200-240 mg/dL Borderline >240 mg/dL High Risk Performed By: #### L 506.1000, L500.4100, L501.9985, L500.4050, L502.0250 #### [address] [place], [address] Cholesterol in HDL [Mass/Vol] 50 mg/dL Normal Comment on above: Result Comment: The drugs N-Acetylcysteine and Metamizole may falsely depress this assay. Reference Range HDL <40 mg/dL Low HDL Cholesterol HDL >or= 60 mg/dL High HDL Cholesterol Performed By: #### L 506.1000, L500.4100, L501.9985, L500.4050, L502.0250 #### [address] [place], [address] Cholesterol in LDL [Mass/Vol] 105 mg/dL Normal 0-130 Comment on above: Performed By: #### L 506.1000, L500.4100, L501.9985, L500.4050, L502.0250 #### [address] [place], [address] Cholesterol in VLDL [Mass/Vol] 17 mg/dL Normal 5-40 Comment on above: Performed By: #### L 506.1000, L500.4100, L501.9985, L500.4050, L502.0250 #### [address] [place], [address] Triglyceride [Mass/Vol] 83 mg/dL Normal [facility] Comment on above: Result Comment: The drugs N-Acetylcysteine and Metamizole may falsely depress this assay. Serum Triglycerides Reference Interval Normal <150 mg/dL Borderline high 150 - 199 mg/dL High 200 - 499 mg/dL Very High > or = 500 mg/dL Performed By: #### L 506.1000, L500.4100, L501.9985, L500.4050, L502.0250 #### [address] [place], [address] Low density lipoprotein (LDL ) cholesterol measurementOrdered By: Ricki Griffin on 12-07-2024 Cholesterol in LDL [Mass/Vol] 105 mg/dL 0-130 Microalb:Creat Ratio,Random URon 12-07-2024 Creatinine [Mass/Vol] 58.70 mg/dL Normal NO RAN GE EST. Comment on above: Performed By: #### L 506.1000, L500.4100, L501.9985, L500.4050, L502.0250 #### [address] [place], [place], [id number] MALB:CRE 9.7 mg/g CRE Normal <30 mg/g CRE Comment on above: Performed By: #### L 506.1000, L500.4100, L501.9985, L500.4050, L502.0250 #### [address] [place], [address] MICROALBUMIN,UR 5.7 mg/L Normal NO RANGE EST. Comment on above: Performed By: #### L 506.1000, L500.4100, L501.9985, L500.4050, L502.0250 #### [address] [place], [place], [id number] Potassium measurementOrdered By: Ricki Griffin on 12-07-2024 Potassium [Moles/Vol] 4.2 mmol/L 3.5-5.1 [facility] Serum anion gap measurementO rdered By: Ricki Griffin on 12-07-2024 Anion gap [Moles/Vol] 7 mmol/L 5-15 [facility] Serum globulin measurementOr dered By: Ricki Griffin on 12-07-2024 Globulin (S) [Mass/Vol] 3.3 g/dL 2.2-4.2 [facility] Serum or plasma alanine herrera otransferase (ALT) measurementOrdered By: Ricki Griffin on 12-07-2024 ALT [Catalytic activity/Vol] 23 U/L 13-56 Serum or plasma albumin virgie urement (mass/volume)Ordered By: Ricki Griffin on 12-07-2024 Albumin [Mass/Vol] 3.6 g/dL 3.2-5.0 [facility] Serum or plasma alkaline sherri sphatase measurementOrdered By: Ricki Griffin on 12-07-2024 ALP [Catalytic activity/Vol] 72 U/L 45-117 Serum or plasma calcium virgie urement (mass/volume)Ordered By: Ricki Griffin on 12-07-2024 Calcium [Mass/Vol] 9.2 mg/dL 8.5-10.1 [facility] Serum or plasma cholesterol measurement (mass/volume)Ordered By: Ricki Griffin on 12-07-2024 Cholesterol [Mass/Vol] 172 mg/dL <200 [facility] Comment on above: <200 mg/dL Desirable 200-240 mg/dL Borderline >240 mg/dL High Risk Serum or plasma creatinine m easurement (mass/volume)Ordered By: Ricki Griffin on 12-07-2024 Creatinine [Mass/Vol] 0.71 mg/dL 0.55-1.02 [facility] Comment on above: The validity of the calculated GFR & GFRAA in patients over 70 years has not been determined. Clinical correlation is essential. Serum or plasma urea nitroge n measurement (mass/volume)Ordered By: Ricki Griffin on 12-07-2024 Urea nitrogen [Mass/Vol] 18 mg/dL 7-18 Sodium levelOrdered By: Froylan Griffin on 12-07-2024 Sodium [Moles/Vol] 139 mmol/L 136-145 [facility] Total proteinOrdered By: Godfrey Griffin on 12-07-2024 Protein [Mass/Vol] 6.9 g/dL 6.4-8.2 [facility] Triglycerides measurementOrd ered By: Ricki Griffin on 12-07-2024 Triglyceride [Mass/Vol] 83 mg/dL <199 [facility] Comment on above: The drugs N-Acetylcy steine and Metamizole may falsely depress this assay.Serum Triglycerides Reference Interval Normal <150 mg/dL Borderline high 150 - 199 mg/dL High 200 - 499 mg/dL Very High > or = 500 mg/dL Urine creatinine measurement (mass/volume)Ordered By: Ricki Griffin on 12-07-2024 Creatinine (U) [Mass/Vol] 58.70 mg/dL NO RANGE EST. Very low density lipoprotein (VLDL) cholesterol measurementOrdered By: Ricki Griffin on 12-07-2024 Very low density lipoprotein (VLDL) cholesterol measurement 17 mg/dL 5-40 Vitamin D,25 Hydroxyon 12-07 Vitamin D 25-OH 61.9 ng/mL Normal Comment on above: Result Comment: Stephanie min D 25(OH) Status Range Deficiency <20 ng/mL (50nmol/L) Insufficiency 20 - 30 ng/mL (50 - 75 nmol/L) Sufficiency 30 - 100 ng/mL (75 - 250 nmol/L) Toxicity >100 ng/mL (>250 nmol/L) Performed By: #### L 506.1000, L500.4100, L501.9985, L500.4050, L502.0250 #### [id number] [place], [address] BD DXA - AXIAL SKELETONon BD DXA - AXIAL SKELETON * * *Final Repor t* * * DATE OF EXAM: Nov 19 2024 3:47PM [facility] [id number] - BD DXA - AXIAL SKELETON / PROCEDURE REASON: multiple diagnoses * * * * Physician Interpretation * * * * EXAMINATION: DXA BONE DENSITOMETRY BD DXA - AXIAL SKELETON, BD DXA TRABECLR BONE SCORE (TBS) PATIENT DEMOGRAPHICS: Age: 64 years, Gender: Female SCANNER INFORMATION: DXA Model: [facility] [employer] C 53754 Date Scanned: 11/19/2024 3:47 PM CLINICAL HISTORY: [...] had a previous bone density in the [facility] or the previous bone density was performed on a different DXA machine (new, updated model or different location) within the [facility]. VERTEBRAL FRACTURE ASSESSMENT Not performed. TRABECULAR [...] FOR MORE INFORMATION ABOUT DIAGNOSIS AND TREATMENT: [facility] Center for Osteoporosis and Metabolic Bone Disease:? www.ccf.org/liban s/osteo National Osteoporosis Foundation:? www.nof.org International Society of Clinical Densitometry www.iscd.org Laundry Tech: HERNANDO Transcribe Date/Time: Nov 23 2024 6:04A Dictated by : MIRIAM KUMARI MD This examination was interpreted and the report reviewed and electronically signed by: MIRIAM KUMARI MD on Nov 23 2024 6:06AM EST [id number] CN -1.5 Normal [facility] BD DXA TRABECLR BONE SCORE ( TBS)on 11-19-2024 BD DXA TRABECLR BONE SCORE (TBS) * * *Final Report* * * DATE OF EXAM: Nov 19 2024 3:47PM WR 0801 - BD DXA TRABECLR BONE SCORE (TBS) / PROCEDURE REASON: multiple diagnoses * * * * Physician Interpretation * * * * EXAMINATION: DXA BONE DENSITOMETRY BD DXA - AXIAL SKELETON, BD DXA TRABECLR BONE SCORE (TBS) PATIENT DEMOGRAPHICS: Age: 64 years, Gender: Female SCANNER INFORMATION: DXA Model: [employer] C [id number] Date Scanned: 11/19/2024 3:47 PM CLINICAL HISTORY: [...] had a previous bone density in the [facility] or the previous bone density was performed on a different DXA machine (new, updated model or different location) within the [facility]. VERTEBRAL FRACTURE ASSESSMENT Not performed. TRABECULAR [...] FOR MORE INFORMATION ABOUT DIAGNOSIS AND TREATMENT: [facility] Center for Osteoporosis and Metabolic Bone Disease:? www.ccf.org/liban muñiz/osteo National Osteoporosis Foundation:? www.nof.org International Society of Clinical Densitometry www.iscd.org Laundry Tech: HERNANDO Transcribe Date/Time: Nov 23 2024 6:04A Dictated by : MIRIAM KUMARI MD This examination was interpreted and the report reviewed and electronically signed by: MIRIAM KUMARI MD on Nov 23 2024 6:06AM EST [id number] CN -1.5 Normal [facility] CNOVon 09-21-2024 CNOV Office Visit (OBGYWM) VISHAL GEORGE ([id number]) 1960 F Date Time Provider Department 09/21/24 3:30 PM ARACELIS MCCORMICK OBJEANIE During your visit today, we recorded the following information about you: Blood pressure Weight Height 140/78 78.5 kg 1.562 m Aracelis Mccormick MD 09/21/2024 3:54 PM Signed Alumni Relations Officer offered: Patient declines. Vishal is a 64 [...] L2 SAB1 IAB0 Ectopic0 Multiple0 Live Births0 Manager Radiation History LMP: 03/05/2012 (Approximate), Postmenopausal Age at Menarche: Age at First : Age at Menopause: Manager Radiation History Comments: Sexual Activity: Yes; Male Contraception: [...] discussed with the Patient or Patient's Authorized Payroll Officer. As applicable, any other physician, advance practice provider, medical student, or other health professional student that will be observing or involved in the sensitive examination for educational or training purposes was discussed with the Patient or Authorized Payroll Officer. The Patient or Authorized Payroll Officer has agreed to proceed with the sensitive [...] external genitalia normal, normal Bartholin's glands, urethra, [place]'s glands, no vulvar lesions, no cervical lesions, good vaginal support, physiologic discharge present, normal appearing perineal body and perianal region BIMANUAL: uterus normal size, shape and consistency, no adnexal masses, and non-tender RECTOVAGINAL: deferred. NEURO: alert and o (more content not included)... Normal [facility] HIGH RISK HUMAN PAPILLOMA ASHANTI (HPV), PCR FOR DETECTION AND GENOTYPINGon 09-21-2024 HPV 16 Ag Ql (Unsp spec) Not detected Normal Not detected [facility] Comment on above: Order Comment: Speci men Type: FLUID SPECIMEN Ordering Facility: [facility] Address: [address] [place] [address] Performed By: #### H PVHRT #### [facility] CLIA [id number] [address] [place] [address] [place] HPV 18 Ag Ql (Unsp spec) Not detected Normal Not detected [facility] Comment on above: Order Comment: Speci men Type: FLUID SPECIMEN Ordering Facility: [facility] Address: [address] [place] [address] Performed By: #### H PVHRT #### [facility] CLIA [id number] [address] [place] [address] [place] HPV 31+33+35+39+45+51+52+56+58 +59+66+68 DNA FERCHO+probe Ql (Cvx) Not detected Normal Not detected [facility] Comment on above: Order Comment: Speci men Type: FLUID SPECIMEN Ordering Facility: [facility] Address: [address] [place] [address] Result Comment: High Risk HPV Other Type includes HPV types 31, 33, 35, 39, 45, 51, 52, 56, 58, 59, 66 and 68. Performed By: #### H PVHRT #### [facility] CLIA [id number] [address] [place] [address] [place] PAP TESTon 09-21-2024 ADEQUACY Satisfactory for interpretation. Normal [facility] Comment on above: Order Comment: Speci men Type: FLUID SPECIMEN Ordering Facility: [facility] Address: [address] [place] [address] Performed By: #### L [id number] #### [facility] CLIA [id number] [address] [place] [address] [place] CASE REPORT Normal [facility] Comment on above: Order Comment: Speci men Type: FLUID SPECIMEN Ordering Facility: [facility] Address: [address] [place] [address] Result Comment: Gyne cologic Cytology Report Case: [id number] Authorizing Provider: Aracelis Mccormick, Collected: 09/21/2024 03:58 PM MD Ordering Location: OB/Gynecology Received: 09/21/2024 04:31 PM First Screen: Shira Roque, CT, ASCP Specimen: Pap Test, ThinPrep, Cervix Performed By: #### L [id number] #### [facility] CLIA [id number] [address] [place] [address] [place] CLINICAL HISTORY, CYTOLOGY, REDUCING SALON ATTENDANT Post Menopausal Normal [facility] Comment on above: Order Comment: Speci men Type: FLUID SPECIMEN Ordering Facility: [facility] Address: [address] [place] [address] Performed By: #### L [id number] #### [facility] CLIA [id number] [address] [place] [address] [place] CYTOLOGY PAP OTHER INTERPRETATION Atrophic specimen. Normal [facility] Comment on above: Order Comment: Speci men Type: FLUID SPECIMEN Ordering Facility: [facility] Address: [address] [place] [address] Performed By: #### L [id number] #### [facility] CLIA [id number] [address] [place] [address] [place] FINAL PERFORMING LAB Normal [facility] Comment on above: Order Comment: Speci men Type: FLUID SPECIMEN Ordering Facility: [facility] Address: [address] [place] [address] Result Comment: Tech nical component, tax form preparer screening performed at [facility], [address] [place] [address] CLIA# [id number] Diagnostic interpretation performed at [facility], [address] [place] [address] CLIA# [id number] Staffing Clerk: Bart Madsen M.D. Performed By: #### L [id number] #### [facility] CLIA [id number] [address] [place] [address] [place] INTERPRETATION, CYTOLOGY, REDUCING SALON ATTENDANT Normal [facility] Comment on above: Order Comment: Speci men Type: FLUID SPECIMEN Ordering Facility: [facility] Address: [address] [place] [address] Result Comment: Nega tive for intraepithelial lesion or malignancy. Performed By: #### L [id number] #### [facility] CLIA [id number] [address] [place] [address] [place] PAP DISCLAIMER COMMENT The Pap Smear is a screening test for cervical cancer. False negative results occur with all screening tests, emphasizing the need for rescreening at recommended intervals, and clinical correlation. Normal [facility] Comment on above: Order Comment: Speci men Type: FLUID SPECIMEN Ordering Facility: [facility] Address: [address] [place] [address] Performed By: #### L [id number] #### [facility] CLIA [id number] [address] [place] [address] [place] PAP SENIOR ADMINISTRATIVE SUPPORT COMMENT This specimen has been analyzed by the ThinPrep Imaging System, an automated imaging and review system, which assists the laboratory in evaluating cells on ThinPrep Pap tests. Following automated imaging, selected bautista from every slide are reviewed by a tax form preparer. Normal [facility] Comment on above: Order Comment: Speci men Type: FLUID SPECIMEN Ordering Facility: [facility] Address: [address] [place] [address] Performed By: #### L [id number] #### [facility] CLIA [id number] [address] [place] [address] [place] DBT Breast - bilateral scree keren 09-16-2024 IMPRESSION: There are no suspicious mammographic [...] Ya Lanza M.D. Electronically signed on: 09/16/2024 Laundry Tech: PRIYANKA Transcribe Date/Time: Sep 16 2024 7:47A Dictated by: ZULMA LUCERO DO This examination was interpreted and the report reviewed and electronically signed by: YA LANZA MD on Sep 16 2024 11:18AM [facility] DIVISION OF RADIOLOGY * * *Final Report* * * DATE OF EXAM: Sep 16 2024 8:00AM [facility] 0582 - JON SCREENING W JOSHUA / PROCEDURE REASON: Encounter for screening mammogram for malignant neoplasm of breast * * * * Physician Interpretation * * * * RESULT: [place] [address] #[id number] - [facility] SCREENING W JOSHUA HISTORY: Patient is 64 [...] the prior study. DIVISION OF RADIOLOGY Provider, [facility] [place] - 09/16/2024 * * *Final Report* * * DATE OF EXAM: Sep 16 2024 8:00AM [facility] 0582 - JON SCREENING W JOSHUA / PROCEDURE REASON: Encounter for screening mammogram for malignant neoplasm of breast * * * * Physician Interpretation * * * * RESULT: [address] [place] [address] #[id number] - [facility] SCREENING W JOSHUA HISTORY: Patient is 64 [...] Ya Lanza M.D. Electronically signed on: 09/16/2024 Laundry Tech: PRIYANKA Transcribe Date/Time: Sep 16 2024 7:47A Dictated by: ZULMA LUCERO DO This examination was interpreted and the report reviewed and electronically signed by: YA LANZA MD on Sep 16 2024 11:18AM EST [facility] Radiology [facility]ative[facility] DBT Breast - bilateral scree ningOrdered By: [facility] Provider on 09-16-2024 [facility] JON SCREENING W TOMOon 09-16 JON SCREENING W JOSHUA * * *Final Report* * * DATE OF EXAM: Sep 16 2024 8:00AM [facility] 0582 - JON SCREENING W JOSHUA / PROCEDURE REASON: Encounter for screening mammogram for malignant neoplasm of breast * * * * Physician Interpretation * * * * RESULT: [place] [address] #[id number] - JON SCREENING W JOSHUA HISTORY: Patient [...] Ya Lanza M.D. Electronically signed on: 09/16/2024 Laundry Tech: PRIYANKA Transcribe Date/Time: Sep 16 2024 7:47A Dictated by: ZULMA LUCERO DO This examination was interpreted and the report reviewed and electronically signed by: YA LANZA MD on Sep 16 2024 11:18AM EST [id number] CN Normal [facility] Cardiology Visit Reporton Cardiology Visit Report [facility] [address] [place] [address] OFFICE VISIT Date of Service: 06/23/24 MR#: [id number] Acct: [id number] Name: VISHAL GEORGE Rep #: [id number] : 1960 Provider: PHONG gunderson Age/Sex: 64/F Location: [facility] Status: Signed [facility] History of Present Illness Details: VISHAL GEORGE, is a 64 F who presents to the office today for a cardiovascular follow-up visit. Patient presented to for severe nausea and vomiting. Patient was [...] V. tach/wide-complex tachycardia. She was transferred to [facility] for ICD evaluation. 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 Normal Comprehensive Metabolic Prof skip 06-02-2024 Albumin [Mass/Vol] 3.8 g/dL Normal 3.2-5.0 [facility] Comment on above: Performed By: #### L 500.4100, L502.0250, L501.9985, L506.1000, L500.4050 #### Laboratory [address] [place], [address] Albumin/Globulin [Mass ratio] 1.2 {ratio} Normal 0.9-2.4 Comment on above: Performed By: #### L 500.4100, L502.0250, L501.9985, L506.1000, L500.4050 #### Laboratory [address] [place], [address] ALK P 70 U/L Normal 45-117 Comment on above: Performed By: #### L 500.4100, L502.0250, L501.9985, L506.1000, L500.4050 #### Laboratory [address] [place], [address] ALT [Catalytic activity/Vol] 26 U/L Normal 13-56 Comment on above: Performed By: #### L 500.4100, L502.0250, L501.9985, L506.1000, L500.4050 #### Laboratory [address] [place], [address] AST [Catalytic activity/Vol] 16 U/L Normal 15-37 Comment on above: Performed By: #### L 500.4100, L502.0250, L501.9985, L506.1000, L500.4050 #### Laboratory [address] [place], [address] Bilirubin [Mass/Vol] 0.40 mg/dL Normal 0.20-1.00 [facility] Comment on above: Result Comment: For patients on eltrombopag therapy, use of Dimension Birney TBIL is not recommended. Performed By: #### L 500.4100, L502.0250, L501.9985, L506.1000, L500.4050 #### Laboratory [address] [place], [address] BUN/CRE 22.8 RATIO High 10-20 Comment on above: Performed By: #### L 500.4100, L502.0250, L501.9985, L506.1000, L500.4050 #### Laboratory [address] [place], [address] CA,Total 8.9 mg/dL Normal 8.5-10.1 Comment on above: Performed By: #### L 500.4100, L502.0250, L501.9985, L506.1000, L500.4050 #### Laboratory [address] [place], [address] Chloride [Moles/Vol] 109 mmol/L High 98-107 [facility] Comment on above: Performed By: #### L 500.4100, L502.0250, L501.9985, L506.1000, L500.4050 #### Laboratory [address] [place], [address] CO2 [Moles/Vol] 29.0 mmol/L Normal 21.0-32.0 Comment on above: Performed By: #### L 500.4100, L502.0250, L501.9985, L506.1000, L500.4050 #### Laboratory [address] [place], [address] Creatinine [Mass/Vol] 0.79 mg/dL Normal 0.55-1.02 [facility] Comment on above: Result Comment: The validity of the calculated GFR GFRAA in patients over 70 years has not been determined. Clinical correlation is essential. Performed By: #### L 500.4100, L502.0250, L501.9985, L506.1000, L500.4050 #### Laboratory [address] [place], [address] EST GFR - AA 95 mL/min Normal >60 Comment on above: Result Comment: Afri can [place] GFR Calc Performed By: #### L 500.4100, L502.0250, L501.9985, L506.1000, L500.4050 #### Laboratory [address] [place], [address] GAP 4 Low 5-15 Comment on above: Performed By: #### L 500.4100, L502.0250, L501.9985, L506.1000, L500.4050 #### Laboratory [address] [place], [address] GFR/1.73 sq M.predicted among non-blacks MDRD (S/P/Bld) [Vol rate/Area] 79 mL/min/{1.73_m2} Normal >60 [facility] Comment on above: Result Comment: Non- GFR Calc Performed By: #### L 500.4100, L502.0250, L501.9985, L506.1000, L500.4050 #### Laboratory [address] [place], [address] Globulin (S) [Mass/Vol] 3.2 g/dL Normal 2.2-4.2 [facility] Comment on above: Performed By: #### L 500.4100, L502.0250, L501.9985, L506.1000, L500.4050 #### Laboratory [address] [place], [address] Glucose [Mass/Vol] 108 mg/dL High 74-106 [facility] Comment on above: Result Comment: Fast ing Glucose result from 100 to 125 mg/dL suggests IMPAIRED HOMEOSTASIS per A.D.A. criteria. Performed By: #### L 500.4100, L502.0250, L501.9985, L506.1000, L500.4050 #### Laboratory [address] [place], [address] Potassium [Moles/Vol] 3.7 mmol/L Normal 3.5-5.1 [facility] Comment on above: Performed By: #### L 500.4100, L502.0250, L501.9985, L506.1000, L500.4050 #### Laboratory [address] [place], [address] Sodium [Moles/Vol] 142 mmol/L Normal 136-145 [facility] Comment on above: Performed By: #### L 500.4100, L502.0250, L501.9985, L506.1000, L500.4050 #### Laboratory [address] [place], [address] T PROT 7.0 g/dL Normal 6.4-8.2 Comment on above: Performed By: #### L 500.4100, L502.0250, L501.9985, L506.1000, L500.4050 #### Laboratory [address] [place], [address] Urea nitrogen [Mass/Vol] 18 mg/dL Normal 7-18 Comment on above: Performed By: #### L 500.4100, L502.0250, L501.9985, L506.1000, L500.4050 #### Laboratory [address] [place], [address] Hemoglobin A1con 06-02-2024 HbA1c (Bld) [Mass fraction] 5.2 % Normal 3.8-5.6 Comment on above: Result Comment: Norm al < 5.7 % Prediabetic 5.7 - 6.4 % Diabetic >or= 6.5 % Please note range changes. Performed By: #### L 500.4100, L502.0250, L501.9985, L506.1000, L500.4050 #### [id number] [place], [address] Lipid Profileon 06-02-2024 Cholesterol [Mass/Vol] 183 mg/dL Normal 200 [facility] Comment on above: Result Comment: <200 mg/dL Desirable 200-240 mg/dL Borderline >240 mg/dL High Risk Performed By: #### L 500.4100, L502.0250, L501.9985, L506.1000, L500.4050 #### Laboratory [address] [place], [address] Cholesterol in HDL [Mass/Vol] 55 mg/dL Normal Comment on above: Result Comment: The drugs N-Acetylcysteine and Metamizole may falsely depress this assay. Reference Range HDL <40 mg/dL Low HDL Cholesterol HDL >or= 60 mg/dL High HDL Cholesterol Performed By: #### L 500.4100, L502.0250, L501.9985, L506.1000, L500.4050 #### Laboratory [address] [place], [address] Cholesterol in LDL [Mass/Vol] 105 mg/dL Normal 0-130 Comment on above: Performed By: #### L 500.4100, L502.0250, L501.9985, L506.1000, L500.4050 #### Laboratory [address] [place], [address] Cholesterol in VLDL [Mass/Vol] 23 mg/dL Normal 5-40 Comment on above: Performed By: #### L 500.4100, L502.0250, L501.9985, L506.1000, L500.4050 #### Laboratory [address] [place], [address] Triglyceride [Mass/Vol] 113 mg/dL Normal [facility] Comment on above: Result Comment: The drugs N-Acetylcysteine and Metamizole may falsely depress this assay. Serum Triglycerides Reference Interval Normal <150 mg/dL Borderline high 150 - 199 mg/dL High 200 - 499 mg/dL Very High > or = 500 mg/dL Performed By: #### L 500.4100, L502.0250, L501.9985, L506.1000, L500.4050 #### Laboratory [address] [place], [address] Microalb:Creat Ratio,Random URon 06-02-2024 Creatinine [Mass/Vol] 134.00 mg/dL Normal NO RAN GE EST. Comment on above: Performed By: #### L 500.4100, L502.0250, L501.9985, L506.1000, L500.4050 #### Laboratory [address] [place], [address] MALB:CRE 8.7 mg/g CRE Normal <30 mg/g CRE Comment on above: Performed By: #### L 500.4100, L502.0250, L501.9985, L506.1000, L500.4050 #### Laboratory [address] [place], [address] MICROALBUMIN,UR 11.6 mg/L Normal NO RANGE EST. Comment on above: Performed By: #### L 500.4100, L502.0250, L501.9985, L506.1000, L500.4050 #### Laboratory [address] [place], [address] Vitamin D,25 Hydroxyon 06-02 Vitamin D 25-OH 53.5 ng/mL Normal Comment on above: Result Comment: Stephanie min D 25(OH) Status Range Deficiency <20 ng/mL (50nmol/L) Insufficiency 20 - 30 ng/mL (50 - 75 nmol/L) Sufficiency 30 - 100 ng/mL (75 - 250 nmol/L) Toxicity >100 ng/mL (>250 nmol/L) Performed By: #### L 500.4100, L502.0250, L501.9985, L506.1000, L500.4050 #### [id number] [place], [address] CNOVon 12-27-2023 [facility] Office Visit ([facility]) VISHAL GEORGE ([id number]) 1960 F Date Time Provider Department 12/27/23 12:00 PM SHAY TERESA [facility] During your visit today, we recorded the following information about you: Pulse Blood pressure Weight 71/minute 132/67 73.5 kg Shay Teresa APRN.CNP 12/27/2023 12:21 PM Signed START taking 2 [...] or concern, you can call me at [phone]. Shay Teresa APRN.CNP 12/27/2023 12:33 PM Signed [facility] [place] [facility] OUTPATIENT VISIT DATE December 26, 2023 OUTPATIENT VISIT TYPE ESTABLISHED PRIMARY CARE PHYSICIAN: Ricki Griffin, POWDER ROOM ATTENDANT, STONEMASON SUPERVISOR CHIEF COMPLAINT: Patient presents with: Breathing Problem [...] of ventricular tachycardia. She was transferred to [facility] for possible ICD placement. Electrophysiology [...] use inhaler daily. She follows with a stitcher feeder in [place]. Does not weigh every day. Monitors her sodium intake. Does not monitor fluids as well. Weights have been stable at 162-164 lbs. States she had an echocardiogram in September in [place] and reports an ejection fraction of 45%. She was told by her stitcher feeder if it was less than 35% she [...] with HF Clinic and with cardiology in [place]. She is to call the office next [...] once GDMT is optimized -repeat echo in [place] shows 45% from September 2023 Per the patient- no outside records present during visit 3. Hyperlipidemia (more content not included)... Normal [facility] Basophil percentageOrdered B y: Ricki Griffin on 11-13-2023 Bilirubin [Mass/Vol] 0.40 mg/dL 0.20-1.00 [facility] Comment on above: For patients on eltr ombopag therapy, use of Dimension Birney TBIL is not recommended. Chloride [Moles/Vol] 110 mmol/L 98-107 [facility] Cholesterol [Mass/Vol] 137 mg/dL <200 [facility] Comment on above: <200 mg/dL Desirable 200-240 mg/dL Borderline >240 mg/dL High Risk Glucose [Mass/Vol] 117 mg/dL 74-106 [facility] Comment on above: Fasting Glucose resu lt from 100 to 125 mg/dL suggests IMPAIRED HOMEOSTASIS per A.D.A. criteria. Potassium [Moles/Vol] 4.8 mmol/L 3.5-5.1 [facility] Protein [Mass/Vol] 6.9 g/dL 6.4-8.2 [facility] Sodium [Moles/Vol] 139 mmol/L 136-145 [facility] Triglyceride [Mass/Vol] 52 mg/dL <199 [facility] Comment on above: The drugs N-Acetylcy steine and Metamizole may falsely depress this assay.Serum Triglycerides Reference Interval Normal <150 mg/dL Borderline high 150 - 199 mg/dL High 200 - 499 mg/dL Very High > or = 500 mg/dL Laboratory - Chemistry and C hemistry - challengeOrdered By: Ricki Griffin on 11-13-2023 Albumin/Globulin [Mass ratio] 1.2 {ratio} 0.9-2.4 ALP [Catalytic activity/Vol] 72 U/L 45-117 ALT [Catalytic activity/Vol] 28 U/L 13-56 Cholesterol in HDL (Body fld) [Mass/Vol] 52 mg/dL >40 Comment on above: The drugs N-Acetylcy steine and Metamizole may falsely depress this assay. Reference Range HDL <40 mg/dL Low HDL Cholesterol HDL >or= 60 mg/dL High HDL Cholesterol Cholesterol in LDL (Body fld) [Moles/Vol] 75 mg/dL 0-130 Cholesterol in VLDL Calc [Moles/Vol] 10 mg/dL 5-40 CO2 [Moles/Vol] 27.0 mmol/L 21.0-32.0 Globulin (S) [Mass/Vol] 3.2 g/dL 2.2-4.2 [facility] Urea nitrogen/Creatinine [Mass ratio] 26.3 mg/mg 10-20 No Panel InformationOrdered By: Ricki Grififn on 11-13-2023 Estimated GFR (MDRD) Amer 94 mL/min >60 Comment on above: GFR Calc Estimated GFR (MDRD) Non-Af Amer 78 mL/min >60 Comment on above: Non- GFR Calc Vitamin D 25-Hydroxy 62.7 ng/mL [facility] Comment on above: Vitamin D 25(OH) Sta tus Range Deficiency <20 ng/mL (50nmol/L) Insufficiency 20 - 30 ng/mL (50 - 75 nmol/L) Sufficiency 30 - 100 ng/mL (75 - 250 nmol/L) Toxicity >100 ng/mL (>250 nmol/L) Serum or plasma calcium virgie urement (mass/volume)Ordered By: Ricki Griffin on 11-13-2023 Calcium [Mass/Vol] 9.4 mg/dL 8.5-10.1 [facility] Serum or plasma creatinine m easurement (mass/volume)Ordered By: Ricki Griffin on 11-13-2023 Creatinine [Mass/Vol] 0.80 mg/dL 0.55-1.02 [facility] Comment on above: The validity of the calculated GFR & GFRAA in patients over 70 years has not been determined. Clinical correlation is essential. Serum or plasma urea nitroge n measurement (mass/volume)Ordered By: Ricki Griffin on 11-13-2023 Urea nitrogen [Mass/Vol] 21 mg/dL 7-18 Thin prep Papanicolaou smear with manual screeningOrdered By: Ricki Griffin on 11-13-2023 Thin prep Papanicolaou smear with manual screening 3.7 g/dL 3.2-5.0 Thin prep Papanicolaou smear with manual screening 16 U/L 15-37 Thin prep Papanicolaou smear with manual screening 2 5-15 Thin prep Papanicolaou smear with manual screening 5.1 mg/L NO RANGE EST. Urine albumin/creatinine rat io for detection of microalbuminuriaOrdered By: Ricki Griffin on 11-13-2023 Albumin/Creatinine DL <= 1.0 mg/L (24H U) [Ratio] 6.1 mg/g CRE <30 Urine creatinine measurement (mass/volume)Ordered By: Ricki Griffin on 11-13-2023 Creatinine (U) [Mass/Vol] 83.70 mg/dL NO RANGE EST. Whole blood hemoglobin A1c/t otal hemoglobin ratio (mass fraction)Ordered By: Ricki Griffin on 11-13-2023 HbA1c (Bld) [Mass fraction] 5.4 % 3.8-5.6 Comment on above: Normal < 5.7 % Predi abetic 5.7 - 6.4 % Diabetic >or= 6.5 % Please note range changes. CNOVon 07-12-2023 [facility] Office Visit ([facility]) VISHAL GEORGE ([id number]) 1960 F Date Time Provider Department 07/12/23 12:00 PM SHAY TERESA [facility] During your visit today, we recorded the following information about you: Pulse Blood pressure Weight 69/minute 139/76 74 kg Shay Teresa APRN.CNP 07/12/2023 12:38 PM Signed [facility] [place] [facility] OUTPATIENT VISIT DATE July 12, 2023 OUTPATIENT VISIT TYPE ESTABLISHED PRIMARY CARE PHYSICIAN: Ricki Griffin, TRUDY, STONEMASON SUPERVISOR CHIEF COMPLAINT: Patient presents with: Breathing Problem [...] of ventricular tachycardia. She was transferred to [facility] for possible ICD placement. Electrophysiology was consulted. Recommended life vest and repeat echo in 3 months. Cardiology also started patient on carvedilol, jardiance and aldactone along with entresto. Today, the patient reports feeling very well. She follows with a stitcher feeder in [place]. Every once in awhile she feels a [...] once GDMT is optimized -repeat echo in [place] shows 15% Per the patient- no outside records present during visit 3. Hyperlipidemia, unspecified hyperlipidemia type - ICD9: 272.4, ICD10: E78.5 -continue statin therapy 4. Primary hypertension - ICD9: 401.9, ICD10: I10 -BP suboptimal during visit 139/76 mmHg -encourage DASH/low sodium diet -encourage exercise with rest breaks as needed -goal BP <130/80 mmHg -continue home BP monitoring 5. 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 - ICD9: 414.01, [...] percutaneous cor (more content not included)... Normal [facility] 06-07-2023 [facility] VISHAL GEORGE ([id number]) 1960 F Date Time Provider Department 06/07/23 12:00 PM SHAY TERESA [facility] During your visit today, we recorded the following information about you: Pulse Weight 66/minute 74.6 kg Shay Teresa APRN.CNP 06/07/2023 12:42 PM Signed [facility] [place] [facility] Failure [facility] OUTPATIENT VISIT DATE June [...] dilated cardiomyopathy, chronic obstructive pulmonary disease, s/p [facility] with stent placement on 02/25 revealing [...] of ventricular tachycardia. She was transferred to [facility] for possible ICD placement. Electrophysiology [...] able. She states she has a primary stitcher feeder at [place] in which she had an echocardiogram that she says ejection fraction was still at 15%. No results are in [facility] as the are from outside hospital. [...] once GDMT is optimized -repeat echo in [place] shows 15% Per the patient- no outside records present during visit 3. Hyperlipidemia, unspecified hyperlipidemia type - ICD9: 272.4, ICD10: E78.5 -continue statin therapy 4. Primary hypertension - ICD9: 401.9, ICD10: I10 -BP suboptimal during visit mmHg -encourage DASH/low sodium diet -encourage exercise with rest breaks as needed -goal BP <130/80 mmHg -continue home BP monitoring 5. 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 - ICD9: 414.01, ICD10: I25.10 -stable -s/p [facility] on 02/25 -on aspirin and BB Follow up appointment with Cardiology in Dr. Moe Washington to be scheduled. PAST MEDICAL HISTORY Diagnosis Date Cataract of left eye COPD (chronic obstructive pulmonary disease) (HCC) Dilated cardiomyopathy (HCC) 02/27/2023 Dysplasia of cervix, unspecified High cholesterol History of percutaneo (more content not included)... Normal [facility] Basophil percentageOrdered B y: Ricki Holbrookpkins on 05-03-2023 Bilirubin [Mass/Vol] 0.40 mg/dL 0.20-1.00 [facility] Comment on above: For patients on eltr ombopag therapy, use of Dimension Birney TBIL is not recommended. Chloride [Moles/Vol] 106 mmol/L 98-107 [facility] Cholesterol [Mass/Vol] 132 mg/dL <200 [facility] Comment on above: <200 mg/dL Desirable 200-240 mg/dL Borderline >240 mg/dL High Risk Glucose [Mass/Vol] 88 mg/dL 74-106 [facility] Potassium [Moles/Vol] 4.1 mmol/L 3.5-5.1 [facility] Protein [Mass/Vol] 6.8 g/dL 6.4-8.2 [facility] Sodium [Moles/Vol] 141 mmol/L 136-145 [facility] Triglyceride [Mass/Vol] 92 mg/dL <199 [facility] Comment on above: The drugs N-Acetylcy steine and Metamizole may falsely depress this assay.Serum Triglycerides Reference Interval Normal <150 mg/dL Borderline high 150 - 199 mg/dL High 200 - 499 mg/dL Very High > or = 500 mg/dL Laboratory - Chemistry and C hemistry - challengeOrdered By: Ricki Griffin on 05-03-2023 ALP [Catalytic activity/Vol] 78 U/L 45-117 ALT [Catalytic activity/Vol] 38 U/L 13-56 CO2 [Moles/Vol] 27.0 mmol/L 21.0-32.0 Globulin (S) [Mass/Vol] 3.0 g/dL 2.2-4.2 [facility] Urea nitrogen/Creatinine [Mass ratio] 11.3 mg/mg 10-20 No Panel InformationOrdered By: Ricki Griffin on 05-03-2023 Estimated GFR (MDRD) Amer 94 mL/min >60 Comment on above: GFR Calc Estimated GFR (MDRD) Non-Af Amer 78 mL/min >60 Comment on above: Non- GFR Calc Urine Microalbumin/Creatinine Ratio 7.6 mg/g CRE <30 Vitamin D 25-Hydroxy 59.7 ng/mL [facility] Comment on above: Vitamin D 25(OH) Sta tus Range Deficiency <20 ng/mL (50nmol/L) Insufficiency 20 - 30 ng/mL (50 - 75 nmol/L) Sufficiency 30 - 100 ng/mL (75 - 250 nmol/L) Toxicity >100 ng/mL (>250 nmol/L) Serum or plasma albumin virgie urement (mass/volume)Ordered By: Ricki Griffin on 05-03-2023 Albumin [Mass/Vol] 3.8 g/dL 3.2-5.0 [facility] Serum or plasma albumin/glob ulin mass ratioOrdered By: Ricki Griffin on 05-03-2023 Albumin/Globulin [Mass ratio] 1.3 {ratio} 0.9-2.4 Serum or plasma calcium virgie urement (mass/volume)Ordered By: Ricki Griffin on 05-03-2023 Calcium [Mass/Vol] 9.0 mg/dL 8.5-10.1 [facility] Serum or plasma cholesterol in HDL measurement (mass/volume)Ordered By: Ricki Griffin on 05-03-2023 Cholesterol in HDL [Mass/Vol] 44 mg/dL >40 Comment on above: The drugs N-Acetylcy steine and Metamizole may falsely depress this assay. Reference Range HDL <40 mg/dL Low HDL Cholesterol HDL >or= 60 mg/dL High HDL Cholesterol Serum or plasma cholesterol in VLDL measurement (mass/volume)Ordered By: Ricki Griffin on 05-03-2023 Cholesterol in VLDL [Mass/Vol] 18 mg/dL 5-40 Serum or plasma creatinine m easurement (mass/volume)Ordered By: Ricki Griffin on 05-03-2023 Creatinine [Mass/Vol] 0.80 mg/dL 0.55-1.02 [facility] Comment on above: The validity of the calculated GFR & GFRAA in patients over 70 years has not been determined. Clinical correlation is essential. Serum or plasma low density lipoprotein (LDL) cholesterol measurement (mass/volume)Ordered By: Ricki Griffin on 05-03-2023 Cholesterol in LDL [Mass/Vol] 70 mg/dL 0-130 Serum or plasma urea nitroge n measurement (mass/volume)Ordered By: Ricki Griffin on 05-03-2023 Urea nitrogen [Mass/Vol] 9 mg/dL 7-18 Thin prep Papanicolaou smear with manual screeningOrdered By: Ricki Griffin on 05-03-2023 Thin prep Papanicolaou smear with manual screening 17 U/L 15-37 Thin prep Papanicolaou smear with manual screening 8 5-15 Thin prep Papanicolaou smear with manual screening 5.1 mg/L NO RANGE EST. Urine creatinine measurement (mass/volume)Ordered By: Ricki Griffin on 05-03-2023 Creatinine (U) [Mass/Vol] 66.40 mg/dL NO RANGE EST. Absolute lymphocyte countOrd ered By: Shira Oglesby on 04-24-2023 Lymphocytes Auto (Unsp spec) [#/Vol] 1.07 10*3/uL 0.83-4.51 Basophil percentageOrdered B y: Shira Oglesby on 04-24-2023 Basophils/100 WBC (Bld) 0.7 % 0-1 [facility] Bilirubin [Mass/Vol] 0.90 mg/dL 0.20-1.00 [facility] Comment on above: For patients on eltr ombopag therapy, use of Dimension Birney TBIL is not recommended. Chloride [Moles/Vol] 102 mmol/L 98-107 [facility] Eosinophils/100 WBC (Bld) 0.2 % 0-5 Glucose [Mass/Vol] 170 mg/dL 74-106 [facility] Comment on above: Fasting Glucose resu lt greater than or equal to 126 mg/dL suggests DIABETES MELLITUS per A.D.A. criteria. Neutrophils (Bld) [#/Vol] 10.3 10*3/uL 2.0-7.7 Neutrophils/100 WBC (Bld) 84.4 % 47-70 Potassium [Moles/Vol] 3.9 mmol/L 3.5-5.1 [facility] Protein [Mass/Vol] 8.2 g/dL 6.4-8.2 [facility] Sodium [Moles/Vol] 136 mmol/L 136-145 [facility] WBC (Bld) [#/Vol] 12.2 10*3/uL 4.4-11.0 [facility] Blood erythrocytes count (nu mber/volume)Ordered By: Shira Oglesby on 04-24-2023 RBC (Bld) [#/Vol] 4.85 10*6/uL 4.2-5.4 [facility] Blood hemoglobin measurement (mass/volume)Ordered By: Shira Oglesby on 04-24-2023 Hemoglobin (Bld) [Mass/Vol] 13.9 g/dL 12.0-15.0 Blood lymphocytes/100 leukoc ytesOrdered By: Shira Oglesby on 04-24-2023 Lymphocytes/100 WBC (Bld) 8.8 % 19-41 Blood monocytes/100 leukocyt esOrdered By: Shira Oglesby on 04-24-2023 Monocytes/100 WBC (Bld) 5.3 % 0-10 [facility] Blood platelet mean volumeOr dered By: Shira Oglesby on 04-24-2023 Platelet mean volume (Bld) [Entitic vol] 9.8 fL 6.2-12.0 Determination of erythrocyte mean corpuscular volume (MCV)Ordered By: Shira Oglesby on 04-24-2023 MCV (RBC) [Entitic vol] 87.0 fL 81-99 [facility] Direct bilirubinOrdered By: Shira Oglesby on 04-24-2023 Bilirubin.direct [Mass/Vol] 0.23 mg/dL 0.00-0.30 Hematocrit Auto (Bld) [Volum e fraction]Ordered By: Shira Oglesby on 04-24-2023 Hematocrit (Bld) [Volume fraction] 42.2 % 37-47 Laboratory - Chemistry and C hemistry - challengeOrdered By: Shira Oglesby on 04-24-2023 ALP [Catalytic activity/Vol] 92 U/L 45-117 ALT [Catalytic activity/Vol] 82 U/L 13-56 CO2 [Moles/Vol] 20.0 mmol/L 21.0-32.0 Globulin (S) [Mass/Vol] 3.9 g/dL 2.2-4.2 [facility] Lipase [Catalytic activity/Vol] 28 U/L 13-75 Comment on above: Please note:LIPASE r evised reference range effective 23. New Lipase methodology. Expected to produce lower values than the previous assay method. NEW Reference Range: 13 - 75 U/L Urea nitrogen/Creatinine [Mass ratio] 16.3 mg/mg 10-20 Laboratory - Hematology and Cell countsOrdered By: Shira Oglesby on 04-24-2023 Erythrocyte distribution width (RBC) [Entitic vol] 40.6 fL 35.1-43.9 [facility] Erythrocyte distribution width (RBC) [Ratio] 12.9 % 11.6-14.6 Immature granulocytes/100 WBC (Bld) 0.600 % 0.0-0.9 Comment on above: IG% - Immature Granu locytes (promyelocytes, myelocytes and metamyelocytes) > 1% indicates that a LEFT SHIFT is Present. MCH (RBC) [Entitic mass] 28.7 pg 27.0-32.0 Nucleated RBC/100 WBC (Bld) [Ratio] 0 % 0-5 MCHC Auto (RBC) [Mass/Vol]Or dered By: Shira Oglesby on 04-24-2023 MCHC (RBC) [Mass/Vol] 32.9 g/dL 32-36 [facility] No Panel InformationOrdered By: Shira Oglesby on 04-24-2023 Estimated Creatinine Clearance Calc 37.88 ml/min Estimated GFR (MDRD) Amer 54 mL/min >60 Comment on above: GFR Calc Estimated GFR (MDRD) Non-Af Amer 45 mL/min >60 Comment on above: Non- GFR Calc Troponin I High Sensitivity 9 pg/mL 3.0-54.0 Comment on above: Please Note: New [place] t Units and Gender Specific Reference Ranges. For more information see Policy Stat Procedure Birney High Sensitivity Troponin (TNIH) and attachments. Platelets bldOrdered By: Karyn Oglesby on 04-24-2023 Platelets (Bld) [#/Vol] 406 10*3/uL 150-450 Serum or plasma albumin virgie urement (mass/volume)Ordered By: Shira Oglesby on 04-24-2023 Albumin [Mass/Vol] 4.3 g/dL 3.2-5.0 [facility] Serum or plasma calcium virgie urement (mass/volume)Ordered By: Shira Oglesby on 04-24-2023 Calcium [Mass/Vol] 10.1 mg/dL 8.5-10.1 [facility] Serum or plasma creatinine m easurement (mass/volume)Ordered By: Shira Oglesby on 04-24-2023 Creatinine [Mass/Vol] 1.29 mg/dL 0.55-1.02 [facility] Comment on above: The validity of the calculated GFR & GFRAA in patients over 70 years has not been determined. Clinical correlation is essential. Serum or plasma urea nitroge n measurement (mass/volume)Ordered By: Shira Oglesby on 04-24-2023 Urea nitrogen [Mass/Vol] 21 mg/dL 7-18 Thin prep Papanicolaou smear with manual screeningOrdered By: Shira Oglesby on 04-24-2023 Thin prep Papanicolaou smear with manual screening 42 U/L 15-37 Thin prep Papanicolaou smear with manual screening 14 5-15 CNPNon 03-25-2023 CNPN Telephone (AGCARDPOB) VISHAL GEORGE ([id number]) 1960 F Date Time Provider Department 03/25/23 MELISSA KOROMA AGCSHANNAN During your visit today, we recorded the following information about you: Melissa Koroma APRN.STONEMASON SUPERVISOR 03/25/2023 10:19 AM Signed I spoke with [facility] regarding the denial of the Lifevest, she does not meet [facility]'s criteria for the Lifevest, as an ICD would need to be indicated for the Lifevest to be covered, currently ICD not indicated until after 90 days of GDMT. Unfortunately, the Lifevest has been declined. Melissa Koroma APRN.MELODY Allergies As of Date: 03/25/2023 Noted Allergy Reaction ADHESIVE TAPE (ROSINS) 09/10/2012 2 - Rash Date Reviewed: 03/07/2023 Reviewed by: Shay Teresa APRN.MELODY - Fully Assessed Reason for Visit: School Inspector - Other [3602] Prescriptions as of 03/25/2023 [...] 03/25/2023 Noted Resolved Coronary artery disease involving tangirnaq howard*09/10/2012 Unspecified essential hypertension [I10] 09/10/2012 08/29/2016 [...] KOROMA on 03/25/23 [facility] CNPN Telephone (AGCARDPOB) VISHAL GEORGE ([id number]) 1960 F Date Time Provider Department 03/25/23 [...] Signed Vinay Lovell MD You; Melissa Koroma APRN.STONEMASON SUPERVISOR 11 hours ago (8:37 PM) I did not feel that a LifeVest was indicated Alessandra Damon RN 03/26/2023 8:17 AM Signed Pt notified and voices understanding. KARIN Galvan RN 03/26/2023 8:32 AM Signed I faxed this note to Dr Reeves's office at [phone]. Alessandra Damon RN Allergies As of Date: 03/25/2023 Noted Allergy Reaction ADHESIVE TAPE (ROSINS) 09/10/2012 2 - Rash Date Reviewed: 03/07/2023 Reviewed by: Shay Teresa APRN.STONEMASON SUPERVISOR - Fully Assessed Reason for Visit: Patient Question [8497] Prescriptions as of 03/26/2023 - furosemide (LASIX) [...] 03/25/2023 Noted Resolved Coronary artery disease involving tangirnaq howard*09/10/2012 Unspecified essential hypertension [I10] 09/10/2012 08/29/2016 [...] DAMON on 03/26/23 [facility] CNOVon 03-07-2023 [facility] VISHAL GEORGE ([id number]) 1960 F Date Time Provider Department 03/07/23 10:00 AM SHAY TERESA [facility] During your visit today, we recorded the following information about you: Pulse Blood pressure Weight 86/minute 116/64 69.9 kg Shay Teresa APRN.CNP 03/07/2023 11:18 AM [facility] [place] [facility] Failure [facility] OUTPATIENT VISIT DATE March 07, 2023 OUTPATIENT VISIT TYPE NEW PRIMARY CARE PHYSICIAN: TRUDY Rendon, MELODY REFERRING PHYSICIAN: No referring provider defined for [...] of ventricular tachycardia. She was transferred to [facility] for possible ICD placement. Electrophysiology [...] BP monitoring 5. 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 - ICD9: 414.01, ICD10: I25.10 -stable -s/p [facility] on 02/25 -on aspiri (more content not included)... Normal [facility] Basic metabolic 2000 panelon 03-01-2023 Anion gap [Moles/Vol] 12 mmol/L Normal 9-18 [facility] Comment on above: Order Comment: Speci men Type: BLOOD SPECIMEN Ordering Facility: [facility] Address: [facility] [address], [place] [address] Performed By: #### 2 8491-2, 42655-0 #### [facility] CLIA [id number] [address] [place] [id number] [place] Calcium [Mass/Vol] 9.8 mg/dL Normal 8.5-10.2 [facility] Comment on above: Order Comment: Speci men Type: BLOOD SPECIMEN Ordering Facility: [facility] Address: [address] [place] [address] Performed By: #### 2 2, #### [facility] CLIA [id number] [address] OF [facility] Chloride [Moles/Vol] 100 mmol/L Normal 97-105 [facility] Comment on above: Order Comment: Speci men Type: BLOOD SPECIMEN Ordering Facility: [facility] Address: [address] [address] Performed By: #### 2 2, #### [facility] CLIA [id number] [address] STATES OF [facility] CO2 [Moles/Vol] 24 mmol/L Normal 22-30 [facility] Comment on above: Order Comment: Speci men Type: BLOOD SPECIMEN Ordering Facility: [facility] Address: [address] [place] [address] Performed By: #### 2 4320-11, #### [facility] CLIA [id number] [address] OF [facility] Creatinine [Mass/Vol] 0.69 mg/dL Normal 0.58-0.96 [facility] Comment on above: Order Comment: Speci men Type: BLOOD SPECIMEN Ordering Facility: [facility] Address: [address] [place] [address] Performed By: #### 2 4320-11, #### [facility] CLIA [id number] [address] OF [facility] ESTIMATED GLOMERULAR FILTRATION RATE 99 mL/min/1.73m??? Normal >=60 [facility] Comment on above: Order Comment: Speci men Type: BLOOD SPECIMEN Ordering Facility: [facility] Address: [address] [place] [address] Result Comment: Elenita mated Glomerular Filtration Rate [...] reflect actual GFR. Performed By: #### 2 4320-11, #### [facility] CLIA [id number] [address] [place] [address] [place] Glucose [Mass/Vol] 100 mg/dL High 74-99 [facility] Comment on above: Order Comment: Speci men Type: BLOOD SPECIMEN Ordering Facility: [facility] Address: [address] [place], [place] [id number] Result Comment: The [place] Diabetes Association (ADA) provides guidance for cutoff [...] Standards of Medical Care in Diabetes 2016, [place] [employer] Association. Diabetes Care. 2016.39(Suppl 1). Performed By: #### 2 #### [facility] CLIA [id number] [address] [place] [address] [place] Potassium [Moles/Vol] 4.1 mmol/L Normal 3.7-5.1 [facility] Comment on above: Order Comment: Juan Manuel cox Type: BLOOD SPECIMEN Ordering Facility: [facility] Address: [address] [place] [address] Performed By: #### 2 4320-11, #### [facility] CLIA [id number] [address] [place] [address] [place] Sodium [Moles/Vol] 136 mmol/L Normal 136-144 [facility] Comment on above: Order Comment: Francescoi men Type: BLOOD SPECIMEN Ordering Facility: [facility] Address: [place] [address] Performed By: #### 2 432-2, #### [facility] CLIA [id number] [address] [place] [id number] [facility] Urea nitrogen [Mass/Vol] 15 mg/dL Normal 7-21 [facility] Comment on above: Order Comment: Speci men Type: BLOOD SPECIMEN Ordering Facility: [facility] Address: [place] [address] Performed By: #### 2 432-2, #### [facility] CLIA [id number] [address] CNDSon 03-01-2023 [facility] HNO ID: [id number] Author: Oly Guzmán DO Service: Hospital Medicine [...] Doctor: Oly Guzmán DO Primary Care Provider: TRUDY Rendon, STONEMASON SUPERVISOR My Medical Team Members: Treatment Team: Attending [...] CAD status post stent who presented to [facility] for severe nausea and vomiting and [...] with a plan to transition her to [facility]. The patient was a planned to be discharged from [place], but then she had a 34 run of V. tach/wide-complex tachycardia so decision was to transfer her to [facility] for ICD evaluation as that [...] with follow up with her PCP and stitcher feeder. OTHER PROBLEMS/DIAGNOSIS: Principal Problem: NSVT (nonsustained ventricular tachycardia) ([facility]) Active Problems: Coronary artery disease involving tangirnaq coronary artery Hyperlipidemia Hypertension Nicotine use disorder, [...] CAD status post stent who presented to [facility] for severe nausea and vomiting and [...] was a planned to be discharged from [place], but then she had a 34 run (more content not included)... Normal [facility] CNPBanner 03-01-2023 [facility] Telephone ([facility] [place]) VISHAL GEORGE ([id number]) 1960 F Date Time Provider Department 03/01/[address] [facility] [place] During your visit today, we recorded the following information about you: Inna Poole RN 03/01/2023 2:13 PM Signed Order received for OP follow up with the [facility] on 02/28/23. Met with patient at bedside. Instructed patient on the purpose of the [facility]. Provided with Zone sheet. Patient lives in [place] and prefers to follow up at the [facility]. Notified the Heart Failure Nurse Navigator of patient's request. She will contact the [facility]. Allergies As of Date: 03/01/2023 Noted Allergy Reaction ADHESIVE TAPE (ROSINS) 09/10/2012 2 - Rash Date Reviewed: 02/28/2023 Reviewed by: Héctor Oliver RN - Fully Assessed Reason for Visit: Orders [681] [facility] appt contact [Other] Prescriptions as of 03/01/2023 [...] 03/01/2023 Noted Resolved Coronary artery disease involving tangirnaq howard*09/10/2012 Unspecified essential hypertension [I10] 09/10/2012 08/29/2016 [...] 03/01/23 [facility] CNPN Telephone (AKPRAD) VISHAL GEORGE ([id number]) 1960 F Date Time Provider Department 03/01/23 TAYLOR GORDILLO During your visit today, we recorded the following information about you: Taylor Gordillo APRN.CHIEF HYDROELECTRIC STATION OPERATOR 03/01/2023 3:29 PM Signed Patient seen by HF Clinic nurse to discuss post-discharge follow-up in HF Clinic. Patient prefers [place] [facility], due to location. Patient information and plan for discharge home today sent to Eva Macias CNP ([place] [facility]). Allergies As of Date: 03/01/2023 Noted Allergy Reaction ADHESIVE TAPE (ROSINS) 09/10/2012 2 - Rash Date Reviewed: 02/28/2023 Reviewed by: Héctor Oliver RN - Fully Assessed Reason for Visit: School Inspector - Hospital Follow Up [8684] Cmt: Contacted Eva Macias CNP ([place] [facility]) Prescriptions as of 03/01/2023 - carvedilol [...] 03/01/2023 Noted Resolved Coronary artery disease involving tangirnaq howard*09/10/2012 Unspecified essential hypertension [I10] 09/10/2012 08/29/2016 [...] CONSULT PROGon 03-01-2023 CONSULT PROG HNO ID: [id number] Author: Shellie Woods APRN.MELODY Service: Cardiovascular Medicine Author Type: Nurse Practitioner Type: Consult Progress Note Filed: 03/01/2023 11:00 AM Note Text: CARDIOLOGY CONSULT PROGRESS NOTE CARDIOLOGY ATTENDING: Dr. Ryan/ Dr. Reeves is outpatient stitcher feeder Date and Reason for initial consult: CHF [...] NSVT, recently had an echocardiogram performed at [place] with findings of EF of 15%. She [...] found for this basename: chol,hdl,ldl DATA: Echocardiogram: OSH TTE, 02/21/2023: Severe LV systolic [...] for opt (more content not included)... Normal [facility] Magnesium SerPl-mCncon 03-01 Magnesium [Mass/Vol] 2.1 mg/dL Normal 1.7-2.3 [facility] Comment on above: Order Comment: Speci men Type: BLOOD SPECIMEN Ordering Facility: [facility] Address: [address] [place] [phone] Performed By: #### 2 4321-2, 28095-1 #### [facility] CLIA [id number] 1 [place] [address] [place] NURSING PROGon 03-01-2023 NURSING PROG HNO ID: [id number] Author: Inna Poole RN Service: Heart Failure Clinic Author Type: Registered Nurse Type: Nursing Progress Note Filed: 03/01/2023 2:08 PM Note Text: Order received for OP follow up with the [facility] on 02/28/23. Met with patient at bedside. Instructed patient on the purpose of the [facility]. Provided with Zone sheet. Patient lives in [place] and prefers to follow up at the HF in [place]. Notified Heart Failure nurse Navigator. She will contact [facility]. Normal [facility] Basic metabolic 2000 panelon 02-28-2023 Anion gap [Moles/Vol] 12 mmol/L Normal 9-18 [facility] Comment on above: Order Comment: Speci men Type: BLOOD SPECIMEN Ordering Facility: [facility] Address: [address] [place] [address] Performed By: #### 5 8410-2 #### [facility] CLIA [id number] 1 [place] [address] [place] Calcium [Mass/Vol] 9.7 mg/dL Normal 8.5-10.2 [facility] Comment on above: Order Comment: Speci men Type: BLOOD SPECIMEN Ordering Facility: [facility] Address: [address] [address] Performed By: #### 5 8410-2 #### [facility] CLIA [id number] 1 [place] [address] [place] Chloride [Moles/Vol] 99 mmol/L Normal 97-105 [facility] Comment on above: Order Comment: Speci men Type: BLOOD SPECIMEN Ordering Facility: [facility] Address: [address] [address] Performed By: #### 5 8410-2 #### [facility] CLIA [id number] 1 [place] [address] [place] CO2 [Moles/Vol] 25 mmol/L Normal 22-30 [facility] Comment on above: Order Comment: Speci men Type: BLOOD SPECIMEN Ordering Facility: [facility] Address: [address] [address] Performed By: #### 5 8410-2 #### [facility] CLIA [id number] 1 [place] [address] [place] Creatinine [Mass/Vol] 0.72 mg/dL Normal 0.58-0.96 [facility] Comment on above: Order Comment: Juan Manuel kenny Type: BLOOD SPECIMEN Ordering Facility: [facility] Address: [place] [place] [address] Performed By: #### 5 8410-2 #### [facility] CLIA [id number] [address] OF [facility] ESTIMATED GLOMERULAR FILTRATION RATE 96 mL/min/1.73m??? Normal >=60 [facility] Comment on above: Order Comment: Juan Manuel kenny Type: BLOOD SPECIMEN Ordering Facility: [facility] Address: [place] [place] [address] Result Comment: Elenita mated Glomerular Filtration Rate [...] GFR. Performed By: #### 5 8410-2 #### [facility] CLIA [id number] [address] [place] Glucose [Mass/Vol] 105 mg/dL High 74-99 [facility] Comment on above: Order Comment: Juan Manuel kenny Type: BLOOD SPECIMEN Ordering Facility: [facility] Address: [address] [place] [address] Result Comment: The [place] Diabetes Association (ADA) provides guidance for cutoff [...] Standards of Medical Care in Diabetes 2016, [place] Diabetes Association. Diabetes Care. 2016.39(Suppl 1). Performed By: #### 5 8410-2 #### [facility] CLIA [id number] [address] [place] Potassium [Moles/Vol] 3.9 mmol/L Normal 3.7-5.1 [facility] Comment on above: Order Comment: Speci men Type: BLOOD SPECIMEN Ordering Facility: [facility] Address: [address] [place] [address] Performed By: #### 5 8410-2 #### [facility] CLIA [id number] [address] STATES OF [facility] Sodium [Moles/Vol] 136 mmol/L Normal 136-144 [facility] Comment on above: Order Comment: Speci men Type: BLOOD SPECIMEN Ordering Facility: [facility] Address: [address] [place] [address] Performed By: #### 5 8410-2 #### [facility] CLIA [id number] [address] STATES OF [facility] Urea nitrogen [Mass/Vol] 14 mg/dL Normal 7-21 [facility] Comment on above: Order Comment: Speci men Type: BLOOD SPECIMEN Ordering Facility: [facility] Address: [address] [place] [address] Performed By: #### 5 8410-2 #### [facility] CLIA [id number] [address] OF [facility] CONSULTon 02-28-2023 CONSULT HNO ID: [id number] Author: Anibal Ryan MD Service: Cardiovascular Medicine Author Type: Physician Type: Consults Filed: 02/28/2023 10:45 AM Note Text: CONSULT: CARDIOLOGY SERVICE SERVICE DATE: 02/28/2023 CONSULTING PHYSICIAN: Anibal Ryan PCP: TRUDY Rendon, STONEMASON SUPERVISOR ATTENDING: Oly Guzmán DO REASON FOR CONSULT: congestive heart failure management Subjective CHIEF COMPLAINT: Ventricular tachyarrhythmia (HCC) [I47.20] HISTORY OF PRESENT ILLNESS: Ms. George is a 62 year old female with a history of ischemic and nonischemic, coronary disease status post prior PCI in 2006 and recent PCI few days ago, chronic tobacco and alcohol abuse, COPD, hypertension, hyperlipidemia who was transferred from [facility] for further evaluation of ventricular tachycardia. Patient reports she has a history of coronary disease and underwent PCI to the RCA back in 2006. Unfortunately, she did not subsequently follow-up regularly with a stitcher feeder. He last had preserved LV function as [...] ejection fraction 15%. He was admitted to [facility] for further evaluation in light of [...] was otherwise asymptomatic. She was transferred to [facility] for further evaluation. Since admission to hospital, [...] once daily. (more content not included)... Normal [facility] CONSULT PROGon 02-28-2023 CONSULT PROG HNO ID: [id number] Author: Melissa Koroma APRN.MELODY Service: Electrophysiology Author Type: Nurse Practitioner Type: [...] in the mid RCA status post PCI TELEMETRY/GEOPHYSICAL ENGINEER: Sinus rhythm with occasional PVCs, rates 60s-70s, [...] nonsustained (HCC) (02/26/2023) Coronary artery disease involving tangirnaq coronary artery (09/10/2012) Hyperlipidemia (08/29/2016) Hypertension (08/29/2016) Nicotine use disorder, F17.2 (02/26/2023) Acute on chronic combined systolic and diastolic CHF (congestive heart failure) ([facility]) (02/26/2023) Tobacco abuse (02/26/2023) NICM (nonischemic cardiomyopathy) ([facility]) (02/27/2023) History of percutaneous coronary intervention (02/27/2023) Chronic systolic CHF (congestive heart failure) ([facility]) (02/28/2023) Ischemic cardiomyopathy (02/28/2023) Alcohol abuse (02/28/2023) The patient has a history of CAD, underwent PCI/stent to RCA in 2006, had preserved LV systolic function at that time and also in 2011 by echocardiogram. However she recently established with a new stitcher feeder, echocardiogram 02/21/2023 revealed new diagnosis of shamar (more content not included)... Normal [facility] Laboratory - Microbiology an d Antimicrobial susceptibilityOrdered By: Dr. Arndt on 02-28-2023 Bacteria identified Cx Nom (Bld) No growth in 5 days. Bacteria identified Cx Nom (Bld) No growth in 5 days. Magnesium SerPl-mCncon 02-28 Magnesium [Mass/Vol] 2.0 mg/dL Normal 1.7-2.3 [facility] Comment on above: Order Comment: Speci men Type: BLOOD SPECIMEN Ordering Facility: [facility] Address: [address] [place] [phone] Performed By: #### 2 4321-2, 01161-4 #### [facility] CLIA [id number] 1 [place] [address] [place] Basic metabolic 2000 panelon 02-27-2023 Anion gap [Moles/Vol] 12 mmol/L Normal 9-18 [facility] Comment on above: Order Comment: Speci men Type: BLOOD SPECIMEN Ordering Facility: [facility] Address: [address] [place] [address] Performed By: #### 2 4321-2 #### [facility] CLIA [id number] [address] [place] Calcium [Mass/Vol] 9.9 mg/dL Normal 8.5-10.2 [facility] Comment on above: Order Comment: Speci men Type: BLOOD SPECIMEN Ordering Facility: [facility] Address: [address] [place] [address] Performed By: #### 2 4321-2 #### [facility] CLIA [id number] [address] STATES OF [facility] Chloride [Moles/Vol] 100 mmol/L Normal 97-105 [facility] Comment on above: Order Comment: Speci men Type: BLOOD SPECIMEN Ordering Facility: [facility] Address: [address] [place] [address] Performed By: #### 2 4321-2 #### [facility] CLIA [id number] [address] [place] CO2 [Moles/Vol] 25 mmol/L Normal 22-30 [facility] Comment on above: Order Comment: Speci men Type: BLOOD SPECIMEN Ordering Facility: [facility] Address: [address] [place] [address] Performed By: #### 2 4321-2 #### [facility] CLIA [id number] [address] [place] Creatinine [Mass/Vol] 0.65 mg/dL Normal 0.58-0.96 [facility] Comment on above: Order Comment: Speci men Type: BLOOD SPECIMEN Ordering Facility: [facility] Address: [address] [address] Performed By: #### 2 4321-2 #### [facility] CLIA [id number] 1 [place] [address] [place] ESTIMATED GLOMERULAR FILTRATION RATE 101 mL/min/1.73m??? Normal >=60 [facility] Comment on above: Order Comment: Specelise cox Type: BLOOD SPECIMEN Ordering Facility: [facility] Address: [address] [place] [address] Result Comment: Elenita mated Glomerular Filtration Rate [...] #### 2 4321-2 #### [facility] CLIA [id number] [address] [place] [address] [place] Glucose [Mass/Vol] 108 mg/dL High 74-99 [facility] Comment on above: Order Comment: Specelise cox Type: BLOOD SPECIMEN Ordering Facility: [facility] Address: [address] [place] [address] Result Comment: The [place] Diabetes Association (ADA) provides guidance for cutoff [...] Standards of Medical Care in Diabetes 2016, [place] Diabetes [employer]. Diabetes Care. 2016.39(Suppl 1). Performed By: #### 2 4321-2 #### [facility] CLIA [id number] 1 [place] [address] [place] Potassium [Moles/Vol] 4.0 mmol/L Normal 3.7-5.1 [facility] Comment on above: Order Comment: Juan Manuel cox Type: BLOOD SPECIMEN Ordering Facility: [facility] Address: [address] [place] [address] Performed By: #### 2 4321-2 #### [facility] CLIA [id number] [address] Sodium [Moles/Vol] 137 mmol/L Normal 136-144 [facility] Comment on above: Order Comment: Juan Manuel cox Type: BLOOD SPECIMEN Ordering Facility: [facility] Address: [address] [place] [address] Performed By: #### 2 4321-2 #### [facility] CLIA [id number] [address] Urea nitrogen [Mass/Vol] 12 mg/dL Normal 7-21 [facility] Comment on above: Order Comment: Juan Manuel cox Type: BLOOD SPECIMEN Ordering Facility: [facility] Address: [address] [place] [address] Performed By: #### 2 4321-2 #### [facility] CLIA [id number] [address] CONSULTon 02-27-2023 CONSULT HNO ID: [id number] Author: Vinay Lovell MD Service: Electrophysiology Author Type: Physician Type: Consults Filed: 02/27/2023 4:24 PM Note Text: CONSULT: CARDIOLOGY SERVICE [facility] Electrophysiology (EP) SERVICE DATE: 02/27/2023 SERVICE TIME: 4:03 PM CONSULTING PHYSICIAN: Vinay Lovell PCP: TRUDY Rendon, STONEMASON SUPERVISOR ATTENDING: Oly Guzmán DO REASON FOR CONSULT: Arrhythmias Subjective CHIEF COMPLAINT: Ventricular tachyarrhythmia (HCC) [I47.20] HISTORY OF PRESENT ILLNESS: Ms. George is a 62 year old female transferred from [facility] for evaluation of ventricular tachycardia and heart failure. She has history of CAD, underwent PCI/stent to RCA in 2006. She had preserved LV systolic function at that time, and also in 2012 by the most recent echocardiogram. However, she recently established with a new stitcher feeder, and an echocardiogram 02/21/2023 revealed new diagnosis of severe cardiomyopathy, LVEF 15%. She was experiencing episodes of nausea and diaphoresis over the past couple months, also exertional shortness of breath. She was admitted to [facility] with these symptoms. She underwent cardiac [...] had recurrence of substantial NSVT here at [facility]. No history of syncope or near syncope, [...] 10 mg (more content not included)... Normal [facility] NUTRITIONon 02-27-2023 NUTRITION HNO ID: [id number] Author: Hui Crandall RD Service: Nutrition Therapy [...] Medical condition, Patient/family self-report Estimated kilocalorie needs: 0205-2259 Calorie Calculation Method: 25-30 kcals/kg, [place] Body Weight Estimated protein needs (grams): 54-65 Grams protein determined by: 1.0 - 1.2 g/kg, [place] body weight Care Plan: Follow for diet advancement to goal Monitor and Evaluation: Meet greater than 75% of estimated needs, Monitor fluid/electrolyte balance, Monitor bowel function, Monitor labs, I/Os, vital signs, weight Discharge Recommendations: Diet Diet: Heart Healthy - HPI: 62 yo female, presented with ventricular tachyarrhythmia from [facility], NPO at present, awaiting Cardiology consult and ICD [...] February 27, 2023 TIME: 10:19 AM Normal [facility] Basophil percentageOrdered B y: Dr. Joseph on 02-26-2023 Bilirubin [Mass/Vol] 0.40 mg/dL 0.20-1.00 [facility] Comment on above: For patients on eltr ombopag therapy, use of Dimension Birney TBIL is not recommended. Chloride [Moles/Vol] 101 mmol/L 98-107 [facility] Glucose [Mass/Vol] 108 mg/dL 74-106 [facility] Comment on above: Fasting Glucose resu lt from 100 to 125 mg/dL suggests IMPAIRED HOMEOSTASIS per A.D.A. criteria. Potassium [Moles/Vol] 3.9 mmol/L 3.5-5.1 [facility] Protein [Mass/Vol] 7.1 g/dL 6.4-8.2 [facility] Sodium [Moles/Vol] 136 mmol/L 136-145 [facility] WBC (Bld) [#/Vol] 7.4 10*3/uL 4.4-11.0 [facility] Blood erythrocytes count (nu mber/volume)Ordered By: Dr. Joseph on 02-26-2023 RBC (Bld) [#/Vol] 5.26 10*6/uL 4.2-5.4 [facility] Blood hemoglobin measurement (mass/volume)Ordered By: Dr. Joseph on 02-26-2023 Hemoglobin (Bld) [Mass/Vol] 15.6 g/dL 12.0-15.0 Blood platelet mean volumeOr dered By: Dr. Joseph on 02-26-2023 Platelet mean volume (Bld) [Entitic vol] 9.9 fL 6.2-12.0 CBC panel Auto (Bld)on 02-26 Erythrocyte distribution width (RBC) [Ratio] 12.7 % Normal 11.5-15.0 [facility] Comment on above: Order Comment: Speci men Type: BLOOD SPECIMEN Order[facility] Facility[facility] Address: [address] [place] [address] Performed By: #### 5 8410-2 #### [facility] CLIA [id number] [address] [place] [facility] Hematocrit (Bld) [Volume fraction] 44.9 % Normal 36.0-46.0 [facility] Comment on above: Order Comment: Speci men Type: BLOOD SPECIMEN Ordering Facility[facility] Address: [address] [address] Performed By: #### 5 8410-2 #### [facility] CLIA [id number] [address] [place] Hemoglobin (Bld) [Mass/Vol] 15.0 g/dL Normal 11.5-15.5 [facility] Comment on above: Order Comment: Speci men Type: BLOOD SPECIMEN Order[facility] Address: [address] [place] [address] Performed By: #### 5 8410-2 #### [facility] CLIA [id number] [address] MCH (RBC) [Entitic mass] 29.4 pg Normal 26.0-34.0 [facility] Comment on above: Order Comment: Speci men Type: BLOOD SPECIMEN Order[facility] Address: [address] [place] [address] Performed By: #### 5 8410-2 #### [facility] CLIA [id number] [address] MCHC (RBC) [Mass/Vol] 33.4 g/dL Normal 30.5-36.0 [facility] Comment on above: Order Comment: Speci men Type: BLOOD SPECIMEN Order[facility] Address: [address] [place] [address] Performed By: #### 5 8410-2 #### [facility] CLIA [id number] [address] MCV (RBC) [Entitic vol] 88.0 fL Normal 80.0-100.0 [facility] Comment on above: Order Comment: Speci men Type: BLOOD SPECIMEN Order[facility] Facility[facility] Address: [address] [place] [address] Performed By: #### 5 8410-2 #### [facility] CLIA [id number] [address] Nucleated RBC (Bld) [#/Vol] 10*3/uL Normal <0.01 [facility] Comment on above: Order Comment: Speci men Type: BLOOD SPECIMEN Order[facility] Facility[facility] Address: [address] [place] [address] Performed By: #### 5 8410-2 #### [facility] CLIA [id number] [address] Platelet mean volume (Bld) [Entitic vol] 9.6 fL Normal 9.0-12.7 [facility] Comment on above: Order Comment: Speci men Type: BLOOD SPECIMEN Order[facility] Address: [address] [place] [address] Performed By: #### 5 8410-2 #### [facility] CLIA [id number] [address] [place] Platelets (Bld) [#/Vol] 284 10*3/uL Normal 150-400 [facility] Comment on above: Order Comment: Speci men Type: BLOOD SPECIMEN Order[facility] Address: [address] [place] [address] Performed By: #### 5 8410-2 #### [facility] CLIA [id number] [address] RBC (Bld) [#/Vol] 5.10 10*6/uL Normal 3.90-5.20 [facility] Comment on above: Order Comment: Speci men Type: BLOOD SPECIMEN Order[facility] Address: [address] [place] [address] Performed By: #### 5 8410-2 #### [facility] CLIA [id number] [address] [place] WBC (Bld) [#/Vol] 8.04 10*3/uL Normal 3.70-11.00 [facility] Comment on above: Order Comment: Speci men Type: BLOOD SPECIMEN Order[facility] Address: [address] [place] [address] Performed By: #### 5 8410-2 #### [facility] CLIA [id number] [address] Determination of erythrocyte mean corpuscular volume (MCV)Ordered By: Dr. Joseph on 02-26-2023 MCV (RBC) [Entitic vol] 91.1 fL 81-99 [facility] HISTORY PHYSICALon 3 HISTORY PHYSICAL HNO ID: [id number] Author: Davie Rey MD Service: Hospital Medicine Author Type: Physician Type: HANDP Filed: 02/26/2023 6:32 PM Note Text: Hospital Medicine HPI Patient Name: Vishal George Admission Date: 02/26/2023 Reason For Admission:Ventricula r tachyarrhythmia (HCC) IMPRESSION AND PLAN: Principal Problem: Ventricular tachyarrhythmia (HCC) Active Problems: Coronary artery disease involving tangirnaq coronary artery Hypertension Nicotine use disorder, F17.2 Acute on chronic combined systolic and diastolic CHF (congestive heart failure) (HCC) Tobacco abuse Resolved Problems: * No resolved hospital problems. * Active Hospital Problems Diagnosis Ventricular tachyarrhythmia (HCC) Nicotine use disorder, F17.2 Acute on chronic combined systolic and diastolic CHF (congestive heart failure) (HCC) Tobacco abuse Hypertension Coronary artery disease involving tangirnaq coronary artery 1. Acute on chronic combined [...] CAD status post stent who presented to [facility] a few days ago for severe [...] with a plan to transition her to [facility]. Today there was a plan to discharge patient home but then she had a 34 run of V. tach/wide-complex tachycardia so decision was to transfer her to [facility] for ICD evaluation as that [...] OSCOPY TRANS (more content not included)... Normal [facility] Hematocrit Auto (Bld) [Volum e fraction]Ordered By: Dr. Joseph on 02-26-2023 Hematocrit (Bld) [Volume fraction] 47.9 % 37-47 Laboratory - Chemistry and C hemistry - challengeOrdered By: Dr. Joseph on 02-26-2023 ALP [Catalytic activity/Vol] 76 U/L 45-117 ALT [Catalytic activity/Vol] 23 U/L 13-56 CO2 [Moles/Vol] 30.0 mmol/L 21.0-32.0 Globulin (S) [Mass/Vol] 3.5 g/dL 2.2-4.2 [facility] Urea nitrogen/Creatinine [Mass ratio] 20.8 mg/mg 10-20 Laboratory - Hematology and Cell countsOrdered By: Dr. Joseph on 02-26-2023 Erythrocyte distribution width (RBC) [Entitic vol] 42.2 fL 35.1-43.9 [facility] Erythrocyte distribution width (RBC) [Ratio] 12.6 % 11.6-14.6 MCH (RBC) [Entitic mass] 29.7 pg 27.0-32.0 MCHC Auto (RBC) [Mass/Vol]Or dered By: Dr. Joseph on 02-26-2023 MCHC (RBC) [Mass/Vol] 32.6 g/dL 32-36 [facility] No Panel InformationOrdered By: Dr. Joseph on 02-26-2023 Estimated Creatinine Clearance Calc 73.86 ml/min Estimated GFR (MDRD) Amer 115 mL/min >60 Comment on above: GFR Calc Estimated GFR (MDRD) Non-Af Amer 95 mL/min >60 Comment on above: Non- GFR Calc Platelets bldOrdered By: Dr. Joseph on 02-26-2023 Platelets (Bld) [#/Vol] 293 10*3/uL 150-450 Serum or plasma albumin virgie urement (mass/volume)Ordered By: Dr. Joseph on 02-26-2023 Albumin [Mass/Vol] 3.6 g/dL 3.2-5.0 [facility] Serum or plasma albumin/glob ulin mass ratioOrdered By: Dr. Joseph on 02-26-2023 Albumin/Globulin [Mass ratio] 1.0 {ratio} 0.9-2.4 Serum or plasma calcium virgie urement (mass/volume)Ordered By: Dr. Joseph on 02-26-2023 Calcium [Mass/Vol] 9.2 mg/dL 8.5-10.1 [facility] Serum or plasma creatinine m easurement (mass/volume)Ordered By: Dr. Joseph on 02-26-2023 Creatinine [Mass/Vol] 0.67 mg/dL 0.55-1.02 [facility] [facility] Comment on above: The validity of the calculated GFR & GFRAA in patients over 70 years has not been determined. Clinical correlation is essential. Serum or plasma urea nitroge n measurement (mass/volume)Ordered By: Dr. Joseph on 02-26-2023 Urea nitrogen [Mass/Vol] 14 mg/dL 7-18 Thin prep Papanicolaou smear with manual screeningOrdered By: Dr. Joseph on 02-26-2023 Thin prep Papanicolaou smear with manual screening 16 U/L 15-37 Thin prep Papanicolaou smear with manual screening 5 5-15 Laboratory - Chemistry and C hemistry - challengeOrdered By: Dr. Brunner on 02-25-2023 Magnesium [Mass/Vol] 1.9 mg/dL 1.6-2.6 [facility] No Panel InformationOrdered By: Dr. Brunner on 02-25-2023 Activated Clotting Time 251 sec 74-137 [facility] Absolute lymphocyte countOrd ered By: Dr. Brunner on 02-24-2023 Lymphocytes Auto (Unsp spec) [#/Vol] 1.61 10*3/uL 0.83-4.51 Basophil percentageOrdered B y: Dr. Brunner on 02-24-2023 Basophils/100 WBC (Bld) 1.0 % 0-1 [facility] Eosinophils/100 WBC (Bld) 2.0 % 0-5 Neutrophils (Bld) [#/Vol] 4.4 10*3/uL 2.0-7.7 Neutrophils/100 WBC (Bld) 63.9 % 47-70 Blood lymphocytes/100 leukoc ytesOrdered By: Dr. Brunner on 02-24-2023 Lymphocytes/100 WBC (Bld) 23.2 % 19-41 Blood monocytes/100 leukocyt esOrdered By: Dr. Brunner on 02-24-2023 Monocytes/100 WBC (Bld) 9.5 % 0-10 [facility] Laboratory - Hematology and Cell countsOrdered By: Dr. Brunner on 02-24-2023 Immature granulocytes/100 WBC (Bld) 0.400 % 0.0-0.9 Comment on above: IG% - Immature Granu locytes (promyelocytes, myelocytes and metamyelocytes) > 1% indicates that a LEFT SHIFT is Present. Nucleated RBC/100 WBC (Bld) [Ratio] 0 % 0-5 No Panel InformationOrdered By: Dr. Brunner on 02-24-2023 Thyroid Stimulating Hormone (TSH) 1.66 uIU/mL 0.358-3.74 Basophil percentageOrdered B y: Dr. Brunner on 02-23-2023 Cholesterol [Mass/Vol] 187 mg/dL <200 [facility] Comment on above: <200 mg/dL Desirable 200-240 mg/dL Borderline >240 mg/dL High Risk Triglyceride [Mass/Vol] 62 mg/dL <199 [facility] Comment on above: The drugs N-Acetylcy steine and Metamizole may falsely depress this assay.Serum Triglycerides Reference Interval Normal <150 mg/dL Borderline high 150 - 199 mg/dL High 200 - 499 mg/dL Very High > or = 500 mg/dL Laboratory - Chemistry and C hemistry - challengeOrdered By: Dr. Brunner on 02-23-2023 Natriuretic peptide B (Bld) [Mass/Vol] 1392.6 pg/mL 0-100 No Panel InformationOrdered By: Julio César Arndt on 02-23-2023 Streptococcus pneumoniae Antigen ([facility] No Panel InformationOrdered By: Dr. Arndt on 02-23-2023 Streptococcus pneumoniae Antigen ([facility] Serum or plasma cholesterol in HDL measurement (mass/volume)Ordered By: Dr. Brunner on 02-23-2023 Cholesterol in HDL [Mass/Vol] 40 mg/dL >40 Comment on above: The drugs N-Acetylcy steine and Metamizole may falsely depress this assay. Reference Range HDL <40 mg/dL Low HDL Cholesterol HDL >or= 60 mg/dL High HDL Cholesterol Serum or plasma cholesterol in VLDL measurement (mass/volume)Ordered By: Dr. Brunner on 02-23-2023 Cholesterol in VLDL [Mass/Vol] 12 mg/dL 5-40 Serum or plasma low density lipoprotein (LDL) cholesterol measurement (mass/volume)Ordered By: Dr. Brunner on 02-23-2023 Cholesterol in LDL [Mass/Vol] 135 mg/dL 0-130 Absolute lymphocyte countOrd ered By: Dr. Koehler on 02-22-2023 Lymphocytes Auto (Unsp spec) [#/Vol] 1.46 10*3/uL 0.83-4.51 Basophil percentageOrdered B y: Dr. Arndt on 02-22-2023 Basophil percentage 4.2 mg/dL 2.5-4.9 [facility] Basophil percentageOrdered B y: Dr. Burris on 02-22-2023 Lactate [Moles/Vol] 1.8 mmol/L 0.4-2.0 [facility] Lactate [Moles/Vol] 2.8 mmol/L 0.4-2.0 [facility] Comment on above: Critical Result(s) C alled at: 18:21:29 02/22/2023 by: SAMEERA CARRILLO TO MAYTE DUNNE. Results read back by same. Basophil percentageOrdered B y: Dr. Koehler on 02-22-2023 Basophils/100 WBC (Bld) 1.5 % 0-1 [facility] Bilirubin [Mass/Vol] 0.40 mg/dL 0.20-1.00 [facility] Comment on above: For patients on eltr ombopag therapy, use of Dimension [place] TBIL is not recommended. Chloride [Moles/Vol] 104 mmol/L 98-107 [facility] Eosinophils/100 WBC (Bld) 4.7 % 0-5 Glucose [Mass/Vol] 138 mg/dL 74-106 [facility] Comment on above: Fasting Glucose resu lt greater than or equal to 126 mg/dL suggests DIABETES MELLITUS per A.D.A. criteria. Neutrophils (Bld) [#/Vol] 7.0 10*3/uL 2.0-7.7 Neutrophils/100 WBC (Bld) 71.0 % 47-70 Potassium [Moles/Vol] 4.0 mmol/L 3.5-5.1 [facility] Protein [Mass/Vol] 7.7 g/dL 6.4-8.2 [facility] Sodium [Moles/Vol] 141 mmol/L 136-145 [facility] WBC (Bld) [#/Vol] 9.8 10*3/uL 4.4-11.0 [facility] Blood erythrocytes count (nu mber/volume)Ordered By: Dr. Koehler on 02-22-2023 RBC (Bld) [#/Vol] 5.30 10*6/uL 4.2-5.4 [facility] Blood hemoglobin measurement (mass/volume)Ordered By: Dr. Koehler on 02-22-2023 Hemoglobin (Bld) [Mass/Vol] 15.8 g/dL 12.0-15.0 Blood lymphocytes/100 leukoc ytesOrdered By: Dr. Koehler on 02-22-2023 Lymphocytes/100 WBC (Bld) 14.9 % 19-41 Blood monocytes/100 leukocyt esOrdered By: Dr. Koehler on 02-22-2023 Monocytes/100 WBC (Bld) 7.4 % 0-10 [facility] Blood platelet mean volumeOr dered By: Dr. Koehler on 02-22-2023 Platelet mean volume (Bld) [Entitic vol] 10.2 fL 6.2-12.0 Determination of erythrocyte mean corpuscular volume (MCV)Ordered By: Dr. Koehler on 02-22-2023 MCV (RBC) [Entitic vol] 93.2 fL 81-99 [facility] Hematocrit Auto (Bld) [Volum e fraction]Ordered By: Dr. Koehler on 02-22-2023 Hematocrit (Bld) [Volume fraction] 49.4 % 37-47 Laboratory - Chemistry and C hemistry - challengeOrdered By: Dr. Koehler on 02-22-2023 ALP [Catalytic activity/Vol] 80 U/L 45-117 ALT [Catalytic activity/Vol] 27 U/L 13-56 CO2 [Moles/Vol] 31.0 mmol/L 21.0-32.0 Globulin (S) [Mass/Vol] 3.6 g/dL 2.2-4.2 [facility] Lipase [Catalytic activity/Vol] 39 U/L 13-75 Comment on above: Please note:LIPASE r evised reference range effective 23. New Lipase methodology. Expected to produce lower values than the previous assay method. NEW Reference Range: 13 - 75 U/L Urea nitrogen/Creatinine [Mass ratio] 14.9 mg/mg 10-20 Laboratory - Hematology and Cell countsOrdered By: Dr. Koehler on 02-22-2023 Erythrocyte distribution width (RBC) [Entitic vol] 44.7 fL 35.1-43.9 [facility] Erythrocyte distribution width (RBC) [Ratio] 13.1 % 11.6-14.6 Immature granulocytes/100 WBC (Bld) 0.500 % 0.0-0.9 Comment on above: IG% - Immature Granu locytes (promyelocytes, myelocytes and metamyelocytes) > 1% indicates that a LEFT SHIFT is Present. MCH (RBC) [Entitic mass] 29.8 pg 27.0-32.0 Nucleated RBC/100 WBC (Bld) [Ratio] 0 % 0-5 Laboratory - Microbiology an d Antimicrobial susceptibilityOrdered By: Julio César Arndt on 02-22-2023 Bacteria identified Cx Nom (Bld) No growth in 5 days. MCHC Auto (RBC) [Mass/Vol]Or dered By: Dr. Koehler on 02-22-2023 MCHC (RBC) [Mass/Vol] 32.0 g/dL 32-36 [facility] No Panel InformationOrdered By: Dr. Burris on 02-22-2023 Troponin I High Sensitivity 15 pg/mL 3.0-54.0 Comment on above: Please Note: New [place] t Units and Gender Specific Reference Ranges. For more information see Policy Stat Procedure [place] High Sensitivity Troponin (TNIH) and attachments. No Panel InformationOrdered By: Dr. Koehler on 02-22-2023 Estimated Creatinine Clearance Calc 56.88 ml/min Estimated GFR (MDRD) Amer 85 mL/min >60 Comment on above: GFR Calc Estimated GFR (MDRD) Non-Af Amer 70 mL/min >60 Comment on above: Non- GFR Calc Platelets bldOrdered By: Dr. Koehler on 02-22-2023 Platelets (Bld) [#/Vol] 331 10*3/uL 150-450 Serum or plasma albumin virgie urement (mass/volume)Ordered By: Dr. Koehler on 02-22-2023 Albumin [Mass/Vol] 4.1 g/dL 3.2-5.0 [facility] Serum or plasma albumin/glob ulin mass ratioOrdered By: Dr. Koehler on 02-22-2023 Albumin/Globulin [Mass ratio] 1.1 {ratio} 0.9-2.4 Serum or plasma calcium virgie urement (mass/volume)Ordered By: Dr. Koehler on 02-22-2023 Calcium [Mass/Vol] 10.1 mg/dL 8.5-10.1 [facility] Serum or plasma creatinine m easurement (mass/volume)Ordered By: Dr. Koehler on 02-22-2023 Creatinine [Mass/Vol] 0.87 mg/dL 0.55-1.02 [facility] Comment on above: The validity of the calculated GFR & GFRAA in patients over 70 years has not been determined. Clinical correlation is essential. Serum or plasma urea nitroge n measurement (mass/volume)Ordered By: Dr. Koehler on 02-22-2023 Urea nitrogen [Mass/Vol] 13 mg/dL 7-18 Thin prep Papanicolaou smear with manual screeningOrdered By: Dr. Koehler on 02-22-2023 Thin prep Papanicolaou smear with manual screening 20 U/L 15-37 Thin prep Papanicolaou smear with manual screening 6 5-15 Whole blood hemoglobin A1c/t otal hemoglobin ratio (mass fraction)Ordered By: Dr. Brunner on 02-22-2023 HbA1c (Bld) [Mass fraction] 5.7 % 3.8-5.6 Comment on above: Normal < 5.7 % Predi abetic 5.7 - 6.4 % Diabetic >or= 6.5 % Please note range changes. Basophil percentageOrdered B y: Ricki Griffin on 02-08-2023 Bilirubin [Mass/Vol] 0.30 mg/dL 0.20-1.00 [facility] Comment on above: For patients on eltr ombopag therapy, use of Dimension [place] TBIL is not recommended. Chloride [Moles/Vol] 100 mmol/L 98-107 [facility] Glucose [Mass/Vol] 105 mg/dL 74-106 [facility] Comment on above: Fasting Glucose resu lt from 100 to 125 mg/dL suggests IMPAIRED HOMEOSTASIS per A.D.A. criteria. Potassium [Moles/Vol] 3.8 mmol/L 3.5-5.1 [facility] Protein [Mass/Vol] 7.3 g/dL 6.4-8.2 [facility] Sodium [Moles/Vol] 134 mmol/L 136-145 [facility] WBC (Bld) [#/Vol] 6.4 10*3/uL 4.4-11.0 [facility] Blood erythrocytes count (nu mber/volume)Ordered By: Ricki Griffin on 02-08-2023 RBC (Bld) [#/Vol] 5.25 10*6/uL 4.2-5.4 [facility] Blood hemoglobin measurement (mass/volume)Ordered By: Ricki Griffin on 02-08-2023 Hemoglobin (Bld) [Mass/Vol] 15.9 g/dL 12.0-15.0 Blood platelet mean volumeOr dered By: Ricki Griffin on 02-08-2023 Platelet mean volume (Bld) [Entitic vol] 9.4 fL 6.2-12.0 Determination of erythrocyte mean corpuscular volume (MCV)Ordered By: Ricki Griffin on 02-08-2023 MCV (RBC) [Entitic vol] 91.4 fL 81-99 [facility] Hematocrit Auto (Bld) [Volum e fraction]Ordered By: Ricki Griffin on 02-08-2023 Hematocrit (Bld) [Volume fraction] 48.0 % 37-47 Laboratory - Chemistry and C hemistry - challengeOrdered By: Ricki Griffin on 02-08-2023 ALP [Catalytic activity/Vol] 82 U/L 45-117 ALT [Catalytic activity/Vol] 29 U/L 13-56 CO2 [Moles/Vol] 30.0 mmol/L 21.0-32.0 Globulin (S) [Mass/Vol] 3.4 g/dL 2.2-4.2 [facility] Urea nitrogen/Creatinine [Mass ratio] 26.5 mg/mg 10-20 Laboratory - Hematology and Cell countsOrdered By: Ricki Griffin on 02-08-2023 Erythrocyte distribution width (RBC) [Entitic vol] 45.6 fL 35.1-43.9 [facility] Erythrocyte distribution width (RBC) [Ratio] 13.5 % 11.6-14.6 MCH (RBC) [Entitic mass] 30.3 pg 27.0-32.0 MCHC Auto (RBC) [Mass/Vol]Or dered By: Ricki Griffin on 02-08-2023 MCHC (RBC) [Mass/Vol] 33.1 g/dL 32-36 [facility] No Panel InformationOrdered By: Ricki Griffin on 02-08-2023 Estimated GFR (MDRD) Amer 100 mL/min >60 Comment on above: GFR Calc Estimated GFR (MDRD) Non-Af Amer 83 mL/min >60 Comment on above: Non- GFR Calc Troponin I High Sensitivity 32 pg/mL 3.0-54.0 Comment on above: Please Note: New [place] t Units and Gender Specific Reference Ranges. For more information see Policy Stat Procedure [place] High Sensitivity Troponin (TNIH) and attachments. Platelets bldOrdered By: Godfrey Griffin on 02-08-2023 Platelets (Bld) [#/Vol] 299 10*3/uL 150-450 Serum or plasma C reactive p rotein measurement (mass/volume)Ordered By: Ricki Griffin on 02-08-2023 CRP [Mass/Vol] mg/L 0.0-3.0 Comment on above: C-Reactive Protein ( CRP) provides useful information for thediagnosis, therapy and monitoring of inflammatory processesand associated diseases. For the evaluation of Relative Riskfor Cardiovascular Disease, a High Sensitivity CRP (HSCRP)should be ordered. Serum or plasma albumin virgie urement (mass/volume)Ordered By: Ricki Griffin on 02-08-2023 Albumin [Mass/Vol] 3.9 g/dL 3.2-5.0 [facility] Serum or plasma albumin/glob ulin mass ratioOrdered By: Ricki Griffin on 02-08-2023 Albumin/Globulin [Mass ratio] 1.1 {ratio} 0.9-2.4 Serum or plasma calcium virgie urement (mass/volume)Ordered By: Ricki Griffin on 02-08-2023 Calcium [Mass/Vol] 9.6 mg/dL 8.5-10.1 [facility] Serum or plasma creatinine m easurement (mass/volume)Ordered By: Ricki Griffin on 02-08-2023 Creatinine [Mass/Vol] 0.76 mg/dL 0.55-1.02 [facility] Comment on above: The validity of the calculated GFR & GFRAA in patients over 70 years has not been determined. Clinical correlation is essential. Serum or plasma urea nitroge n measurement (mass/volume)Ordered By: Ricki Griffin on 02-08-2023 Urea nitrogen [Mass/Vol] 20 mg/dL 7-18 Thin prep Papanicolaou smear with manual screeningOrdered By: Ricki Griffin on 02-08-2023 Thin prep Papanicolaou smear with manual screening 17 U/L 15-37 Thin prep Papanicolaou smear with manual screening 4 5-15 RESCVIDon 09-23-2022 Adenovirus Not detected Normal Not Detected [facility] ([place] Comment on above: Performed By: #### R ESCVID #### [address] [address] Bordetella Parapertussis Not detected Normal Not Detected [facility] [place] Comment on above: Performed By: #### R ESCVID #### [address] [address] Bordetella Pertussis Not detected Normal Not Detected [facility] ([place] Comment on above: Performed By: #### R ESCVID #### [address] [address] Chlamydophila pneumoniae Not detected Normal Not Detected [facility] ([place] Comment on above: Performed By: #### R ESCVID #### [address] [address] Coronavirus 229E (Not COVID-19) Not detected Normal Not Detected [facility] ([place]) Comment on above: Performed By: #### R ESCVID #### [facility] [address] [place] [address] Coronavirus HKU1 (Not COVID-19) Not detected Normal Not Detected [facility] ([place] Comment on above: Performed By: #### R ESCVID #### [facility] [address] [place] [address] Coronavirus NL63 (Not COVID-19) Not detected Normal Not Detected [facility] ([place] Comment on above: Performed By: #### R ESCVID #### [facility] [address] [place], [place] [id number] Coronavirus OC43 (Not COVID-19) Not detected Normal Not Detected [facility] ([place] Comment on above: Performed By: #### R ESCVID #### [address] [address] Human Metapneumovirus Not detected Normal Not Detected [facility] ([place] Comment on above: Performed By: #### R ESCVID #### [facility] [address] [place] [address] Influenza A Not detected Normal Not Detected [facility] ([place] Comment on above: Performed By: #### R ESCVID #### [facility] [address] [place] [address] Influenza B Not detected Normal Not Detected [facility] ([place] Comment on above: Performed By: #### R ESCVID #### [facility] [address] [place] [address] Mycoplasma pneumoniae Not detected Normal Not Detected [facility] ([place] Comment on above: Performed By: #### R ESCVID #### [facility] [address] [place] [address] Parainfluenza 1 Not detected Normal Not Detected [facility] ([place] Comment on above: Performed By: #### R ESCVID #### [facility] [address] [place] [address] Parainfluenza 2 Not detected Normal Not Detected [facility] ([place] Comment on above: Performed By: #### R ESCVID #### [facility] [address] [place] [address] Parainfluenza 3 Not detected Normal Not Detected [facility] ([place] Comment on above: Performed By: #### R ESCVID #### [facility] [address] [place] [address] Parainfluenza 4 Not detected Normal Not Detected [facility] ([place] Comment on above: Performed By: #### R ESCVID #### [facility] [address] [place] [address] Respiratory Syncytial Virus Not detected Normal Not Detected [facility] ([place] Comment on above: Performed By: #### R ESCVID #### [facility] [address] [place] [address] Rhinovirus/Enterovirus Detected Abnormal Not Detected [facility] ([place] Comment on above: Performed By: #### R ESCVID #### [place] [id number] SARS-CoV-2 (COVID-19) RNA FERCHO+probe Ql (Unsp spec) Not detected Normal Not Detected [facility] ([place] Comment on above: Result Comment: This test is being used under the FDA EUA procedure. This assay has been validated in the [facility] for use with nasopharyngeal specimens in [facility]. If a non-validated specimen or test collection [...] public health authorities. Performed By: #### R ESCVID #### [place] [address] LABORATORYOrdered By: Jere Gunderson on 09-21-2022 Adenovirus DNA FERCHO+non-probe Ql (Nph) Not Detected *NA* (09/21/22 5:46 PM) Invalid Interpretation Code Not Detected AH Auto Viro/Sero SS B. parapertussis [id number] DNA FERCHO+non-probe Ql (Nph) Not Detected *NA* [...] AH Auto Viro/Sero SS JON SCREENINGon 08-14-2022 [facility] SURGICAL PATHOLOGYon 022 Case Report Surgical Pathology Report Case: [id number] Authorizing Provider: Sony Cedeño MD Collected: 08/09/2022 11:36 AM Ordering Location: Ambulatory Surgery Received: 08/09/2022 04:53 PM Pathologist: Sony Prater MD Specimens: A) - DUODENUM BIOPSY B) - ANTRUM (STOMACH) BIOPSY, Antral bx for H/H C) - ESOPHAGUS BIOPSY, distal esophagus bx [facility] FINAL DIAGNOSIS A. Duodenum, biopsy: - Duodenal mucosa with no significant pathologic abnormality. B. Stomach, biopsy: - Gastric mucosa with no significant pathologic abnormality. C. Distal esophagus, biopsy: - Squamous mucosa with mild reactive changes. [facility] Gross Description A. DUODENUM BIOPSY Received in [...] in one cassette. Gross examination performed at [facility], [address] [place] [address] JT 08/09/2022 11:51 PM [facility] Performing Lab Diagnostic interpretation performed at [facility], [address] [facility] [address] CLIA# [id number] Staffing Clerk: Bart Madsen M.D. [facility] EGD DIAGNOSTICon 08-09-2022 [facility] Absolute lymphocyte countOrd ered By: Dr. Rain on 07-14-2022 Lymphocytes Auto (Unsp spec) [#/Vol] 1.11 10*3/uL 0.83-4.51 Basophil percentageOrdered B y: Dr. Rain on 07-14-2022 Basophils/100 WBC (Bld) 0.7 % 0-1 [facility] Bilirubin [Mass/Vol] 0.90 mg/dL 0.20-1.00 [facility] Comment on above: For patients on eltr ombopag therapy, use of Dimension [place] TBIL is not recommended. Chloride [Moles/Vol] 103 mmol/L 98-107 [facility] Eosinophils/100 WBC (Bld) 0.3 % 0-5 Glucose [Mass/Vol] 165 mg/dL 74-106 [facility] Comment on above: Fasting Glucose resu lt greater than or equal to 126 mg/dL suggests DIABETES MELLITUS per A.D.A. criteria. Neutrophils (Bld) [#/Vol] 8.0 10*3/uL 2.0-7.7 Neutrophils/100 WBC (Bld) 78.8 % 47-70 Potassium [Moles/Vol] 3.3 mmol/L 3.5-5.1 [facility] Protein [Mass/Vol] 8.2 g/dL 6.4-8.2 [facility] Sodium [Moles/Vol] 140 mmol/L 136-145 [facility] WBC (Bld) [#/Vol] 10.2 10*3/uL 4.4-11.0 [facility] Blood erythrocytes count (nu mber/volume)Ordered By: Dr. Rain on 07-14-2022 RBC (Bld) [#/Vol] 5.25 10*6/uL 4.2-5.4 [facility] Blood hemoglobin measurement (mass/volume)Ordered By: Dr. Rain on 07-14-2022 Hemoglobin (Bld) [Mass/Vol] 15.8 g/dL 12.0-15.0 Blood lymphocytes/100 leukoc ytesOrdered By: Dr. Rain on 07-14-2022 Lymphocytes/100 WBC (Bld) 10.9 % 19-41 Blood monocytes/100 leukocyt esOrdered By: Dr. Rain on 07-14-2022 Monocytes/100 WBC (Bld) 8.8 % 0-10 [facility] Blood platelet mean volumeOr dered By: Dr. Rain on 07-14-2022 Platelet mean volume (Bld) [Entitic vol] 9.9 fL 6.2-12.0 Determination of erythrocyte mean corpuscular volume (MCV)Ordered By: Dr. Rain on 07-14-2022 MCV (RBC) [Entitic vol] 87.2 fL 81-99 [facility] Hematocrit Auto (Bld) [Volum e fraction]Ordered By: Dr. Rain on 07-14-2022 Hematocrit (Bld) [Volume fraction] 45.8 % 37-47 Laboratory - Chemistry and C hemistry - challengeOrdered By: Dr. Rain on 07-14-2022 ALP [Catalytic activity/Vol] 90 U/L 45-117 ALT [Catalytic activity/Vol] 31 U/L 13-56 CO2 [Moles/Vol] 24.0 mmol/L 21.0-32.0 Globulin (S) [Mass/Vol] 3.6 g/dL 2.2-4.2 [facility] Lipase [Catalytic activity/Vol] 108 U/L 73-393 Urea nitrogen/Creatinine [Mass ratio] 15.2 mg/mg 10-20 Laboratory - Hematology and Cell countsOrdered By: Dr. Rain on 07-14-2022 Erythrocyte distribution width (RBC) [Entitic vol] 40.8 fL 35.1-43.9 [facility] Erythrocyte distribution width (RBC) [Ratio] 12.8 % 11.6-14.6 Immature granulocytes/100 WBC (Bld) 0.500 % 0.0-0.9 Comment on above: IG% - Immature Granu locytes (promyelocytes, myelocytes and metamyelocytes) > 1% indicates that a LEFT SHIFT is Present. MCH (RBC) [Entitic mass] 30.1 pg 27.0-32.0 Nucleated RBC/100 WBC (Bld) [Ratio] 0 % 0-5 MCHC Auto (RBC) [Mass/Vol]Or dered By: Dr. Rain on 07-14-2022 MCHC (RBC) [Mass/Vol] 34.5 g/dL 32-36 [facility] No Panel InformationOrdered By: Dr. Rain on 07-14-2022 Estimated Creatinine Clearance Calc 47.79 ml/min Estimated GFR (MDRD) Amer 74 mL/min >60 Comment on above: GFR Calc Estimated GFR (MDRD) Non-Af Amer 61 mL/min >60 Comment on above: Non- GFR Calc Platelets bldOrdered By: Dr. Rain on 07-14-2022 Platelets (Bld) [#/Vol] 334 10*3/uL 150-450 Serum or plasma albumin virgie urement (mass/volume)Ordered By: Dr. Rain on 07-14-2022 Albumin [Mass/Vol] 4.6 g/dL 3.2-5.0 [facility] Serum or plasma albumin/glob ulin mass ratioOrdered By: Dr. Rain on 07-14-2022 Albumin/Globulin [Mass ratio] 1.3 {ratio} 0.9-2.4 Serum or plasma calcium virgie urement (mass/volume)Ordered By: Dr. Rain on 07-14-2022 Calcium [Mass/Vol] 10.6 mg/dL 8.5-10.1 [facility] Serum or plasma creatinine m easurement (mass/volume)Ordered By: Dr. Rain on 07-14-2022 Creatinine [Mass/Vol] 0.99 mg/dL 0.55-1.02 [facility] Comment on above: The validity of the calculated GFR & GFRAA in patients over 70 years has not been determined. Clinical correlation is essential. Serum or plasma urea nitroge n measurement (mass/volume)Ordered By: Dr. Rain on 07-14-2022 Urea nitrogen [Mass/Vol] 15 mg/dL 7-18 Thin prep Papanicolaou smear with manual screeningOrdered By: Dr. Rain on 07-14-2022 Thin prep Papanicolaou smear with manual screening 23 U/L 15-37 Thin prep Papanicolaou smear with manual screening 13 5-15 Absolute lymphocyte countOrd ered By: Dr. Monae on 07-12-2022 Lymphocytes Auto (Unsp spec) [#/Vol] 1.10 10*3/uL 0.83-4.51 Basophil percentageOrdered B y: Dr. Monae on 07-12-2022 Basophil percentage 0 SEEN /hpf 0-5 [facility] Basophils/100 WBC (Bld) 0.5 % 0-1 [facility] Bilirubin [Mass/Vol] 0.60 mg/dL 0.20-1.00 [facility] Comment on above: For patients on eltr ombopag therapy, use of Dimension [place] TBIL is not recommended. Chloride [Moles/Vol] 105 mmol/L 98-107 [facility] Eosinophils/100 WBC (Bld) 0.7 % 0-5 Glucose [Mass/Vol] 170 mg/dL 74-106 [facility] Comment on above: Fasting Glucose resu lt greater than or equal to 126 mg/dL suggests DIABETES MELLITUS per A.D.A. criteria. Lactate [Moles/Vol] 2.0 mmol/L 0.4-2.0 [facility] Comment on above: Critical Result(s) C alled at: 12:36:42 07/12/2022 by: Lissette Prieto. To Cindy Lam RN (ER). Results read back by same. Neutrophils (Bld) [#/Vol] 7.4 10*3/uL 2.0-7.7 Neutrophils/100 WBC (Bld) 78.8 % 47-70 Potassium [Moles/Vol] 3.7 mmol/L 3.5-5.1 [facility] Protein [Mass/Vol] 8.1 g/dL 6.4-8.2 [facility] Sodium [Moles/Vol] 141 mmol/L 136-145 [facility] WBC (Bld) [#/Vol] 9.4 10*3/uL 4.4-11.0 [facility] Bilirubin Test strip Ql (U)O rdered By: Dr. Monae on 07-12-2022 Bilirubin Ql (U) Negative Negative Blood erythrocytes count (nu mber/volume)Ordered By: Dr. Monae on 07-12-2022 RBC (Bld) [#/Vol] 5.34 10*6/uL 4.2-5.4 [facility] Blood hemoglobin measurement (mass/volume)Ordered By: Dr. Monae on 07-12-2022 Hemoglobin (Bld) [Mass/Vol] 15.9 g/dL 12.0-15.0 Blood lymphocytes/100 leukoc ytesOrdered By: Dr. Monae on 07-12-2022 Lymphocytes/100 WBC (Bld) 11.8 % 19-41 Blood monocytes/100 leukocyt esOrdered By: Dr. Monae on 07-12-2022 Monocytes/100 WBC (Bld) 7.7 % 0-10 [facility] Blood platelet mean volumeOr dered By: Dr. Monae on 07-12-2022 Platelet mean volume (Bld) [Entitic vol] 9.4 fL 6.2-12.0 Determination of erythrocyte mean corpuscular volume (MCV)Ordered By: Dr. Monae on 07-12-2022 MCV (RBC) [Entitic vol] 89.3 fL 81-99 [facility] Hematocrit Auto (Bld) [Volum e fraction]Ordered By: Dr. Monae on 07-12-2022 Hematocrit (Bld) [Volume fraction] 47.7 % 37-47 Ketones Test strip Ql (U)Ord ered By: Dr. Monae on 07-12-2022 Ketones Ql (U) 5 mg/dl Negative Laboratory - Chemistry and C hemistry - challengeOrdered By: Dr. Monae on 07-12-2022 ALP [Catalytic activity/Vol] 95 U/L 45-117 ALT [Catalytic activity/Vol] 31 U/L 13-56 CO2 [Moles/Vol] 27.0 mmol/L 21.0-32.0 Globulin (S) [Mass/Vol] 3.7 g/dL 2.2-4.2 [facility] Lipase [Catalytic activity/Vol] 110 U/L 73-393 Urea nitrogen/Creatinine [Mass ratio] 12.6 mg/mg 10-20 Laboratory - Hematology and Cell countsOrdered By: Dr. Monae on 07-12-2022 Erythrocyte distribution width (RBC) [Entitic vol] 42.6 fL 35.1-43.9 [facility] Erythrocyte distribution width (RBC) [Ratio] 13.0 % 11.6-14.6 Immature granulocytes/100 WBC (Bld) 0.500 % 0.0-0.9 Comment on above: IG% - Immature Granu locytes (promyelocytes, myelocytes and metamyelocytes) > 1% indicates that a LEFT SHIFT is Present. MCH (RBC) [Entitic mass] 29.8 pg 27.0-32.0 Nucleated RBC/100 WBC (Bld) [Ratio] 0 % 0-5 MCHC Auto (RBC) [Mass/Vol]Or dered By: Dr. Monae on 07-12-2022 MCHC (RBC) [Mass/Vol] 33.3 g/dL 32-36 [facility] Mucus LM Ql (Urine sed)Order ed By: Dr. Monae on 07-12-2022 Mucus Ql (Urine sed) 0 SEEN /hpf [facility] Nitrite Test strip Ql (U)Ord ered By: Dr. Monae on 07-12-2022 Nitrite Ql (U) Negative Negative No Panel InformationOrdered By: Dr. Monae on 07-12-2022 Estimated Creatinine Clearance Calc 45.94 ml/min Estimated GFR (MDRD) Amer 70 mL/min >60 Comment on above: GFR Calc Estimated GFR (MDRD) Non-Af Amer 58 mL/min >60 Comment on above: Non- GFR Calc Platelets bldOrdered By: Dr. Monae on 07-12-2022 Platelets (Bld) [#/Vol] 322 10*3/uL 150-450 Protein Test strip Ql (U)Ord ered By: Dr. Monae on 07-12-2022 Protein Ql (U) Negative Negative Serum or plasma albumin virgie urement (mass/volume)Ordered By: Dr. Monae on 07-12-2022 Albumin [Mass/Vol] 4.4 g/dL 3.2-5.0 [facility] Serum or plasma albumin/glob ulin mass ratioOrdered By: Dr. Monae on 07-12-2022 Albumin/Globulin [Mass ratio] 1.2 {ratio} 0.9-2.4 Serum or plasma calcium virgie urement (mass/volume)Ordered By: Dr. Monae on 07-12-2022 Calcium [Mass/Vol] 10.1 mg/dL 8.5-10.1 [facility] Serum or plasma creatinine m easurement (mass/volume)Ordered By: Dr. Monae on 07-12-2022 Creatinine [Mass/Vol] 1.03 mg/dL 0.55-1.02 [facility] Comment on above: The validity of the calculated GFR & GFRAA in patients over 70 years has not been determined. Clinical correlation is essential. Serum or plasma urea nitroge n measurement (mass/volume)Ordered By: Dr. Monae on 07-12-2022 Urea nitrogen [Mass/Vol] 13 mg/dL 7-18 Squamous epithelial cells de tection in urine sediment by light microscopyOrdered By: Dr. Monae on 07-12-2022 Epithelial cells.squamous LM Ql (Urine sed) 0-5 SEEN /hpf 5-10 Thin prep Papanicolaou smear with manual screeningOrdered By: Dr. Monae on 07-12-2022 Thin prep Papanicolaou smear with manual screening 21 U/L 15-37 Thin prep Papanicolaou smear with manual screening 9 5-15 Urine blood detectionOrdered By: Dr. Monae on 07-12-2022 RBC Ql (U) 10 /ul Negative RBC Ql (U) 0-5 SEEN /hpf 0-5 Urine clarityOrdered By: Dr. Monae on 07-12-2022 Clarity (U) Clear Clear Urine color determinationOrd ered By: Dr. Monae on 07-12-2022 Color (U) Yellow Yellow Urine glucose detectionOrder ed By: Dr. Monae on 07-12-2022 Glucose Ql (U) Normal mg/dl Normal Urine leukocyte esterase det ection by dipstickOrdered By: Dr. Monae on 07-12-2022 Leukocyte esterase Test strip Ql (U) Negative Negative Urine pHOrdered By: Dr. Ann nails on 07-12-2022 pH (U) 7.0 [pH] 5.0 - 8.0 Urine sediment bacteria coun t by microscopy (number/high power field)Ordered By: Dr. Monae on 07-12-2022 Bacteria LM.HPF (Urine sed) [#/Area] 0 /[HPF] None Seen Urine specific gravity measu rementOrdered By: Dr. Monae on 07-12-2022 Specific gravity (U) [Rel density] 1.010 1.002-1.030 Urobilinogen Auto test strip Ql (U)Ordered By: Dr. Monae on 07-12-2022 Urobilinogen Ql (U) Normal mg/dl Normal [facility] Basophil percentageon 2021 Bilirubin [Mass/Vol] 0.40 mg/dL 0.20-1.00 [facility] Work Phone: Comment on above: For patients on eltr ombopag therapy, use of Dimension [place] TBIL is not recommended. Chloride [Moles/Vol] 102 mmol/L 98-[address] [facility] Work Phone: Cholesterol [Mass/Vol] 160 mg/dL <200 [facility] Work Phone: Comment on above: <200 mg/dL Desirable 200-240 mg/dL Borderline >240 mg/dL High Risk Glucose [Mass/Vol] 102 mg/dL 74-106 [facility] Work Phone: Comment on above: Fasting Glucose resu lt from 100 to 125 mg/dL suggests IMPAIRED HOMEOSTASIS per A.D.A. criteria. Potassium [Moles/Vol] 4.0 mmol/L 3.5-5.1 [facility] Work Phone: Protein [Mass/Vol] 7.1 g/dL 6.4-8.2 [facility] Work Phone: Sodium [Moles/Vol] 137 mmol/L 136-145 [facility] Work Phone: [phone] Triglyceride [Mass/Vol] 141 mg/dL <199 [facility] Work Phone: Comment on above: The drugs N-Acetylcy steine and Metamizole may falsely depress this assay.Serum Triglycerides Reference Interval Normal <150 mg/dL Borderline high 150 - 199 mg/dL High 200 - 499 mg/dL Very High > or = 500 mg/dL WBC (Bld) [#/Vol] 5.8 10*3/uL 4.4-11.0 [facility] Work Phone: [phone] Blood erythrocytes count (nu mber/volume)on 03-31-2022 RBC (Bld) [#/Vol] 5.11 10*6/uL 4.2-5.4 [facility] Work Phone: [phone] Blood hemoglobin measurement (mass/volume)on 03-31-2022 Hemoglobin (Bld) [Mass/Vol] 15.2 g/dL 12.0-15.0 Work Phone: [phone] Blood platelet mean volumeon 03-31-2022 Platelet mean volume (Bld) [Entitic vol] 9.4 fL 6.2-12.0 Work Phone: Determination of erythrocyte mean corpuscular volume (MCV)on 03-31-2022 MCV (RBC) [Entitic vol] 88.5 fL 81-99 [facility] Work Phone: [phone] Hematocrit Auto (Bld) [Volum e fraction]on 03-31-2022 Hematocrit (Bld) [Volume fraction] 45.2 % 37-47 Work Phone: Laboratory - Chemistry and C hemistry - challengeon 03-31-2022 ALP [Catalytic activity/Vol] 98 U/L 45-117 Work Phone: [phone] ALT [Catalytic activity/Vol] 37 U/L 13-56 Work Phone: [phone] CO2 [Moles/Vol] 29.0 mmol/L 21.0-32.0 Work Phone: Globulin (S) [Mass/Vol] 3.5 g/dL 2.2-4.2 [facility] Work Phone: [phone] Urea nitrogen/Creatinine [Mass ratio] 17.1 mg/mg 10-20 Work Phone: [phone] Laboratory - Hematology and Cell countson 03-31-2022 Erythrocyte distribution width (RBC) [Entitic vol] 41.4 fL 35.1-43.9 [facility] Work Phone: [phone] Erythrocyte distribution width (RBC) [Ratio] 12.5 % 11.6-14.6 Work Phone: [phone] MCH (RBC) [Entitic mass] 29.7 pg 27.0-32.0 Work Phone: MCHC Auto (RBC) [Mass/Vol]on 03-31-2022 MCHC (RBC) [Mass/Vol] 33.6 g/dL 32-36 [facility] Work Phone: No Panel Informationon 03-31 Estimated GFR (MDRD) Amer 100 mL/min >60 Work Phone: Comment on above: GFR Calc Estimated GFR (MDRD) Non-Af Amer 82 mL/min >60 Work Phone: Comment on above: Non- GFR Calc Vitamin D 25-Hydroxy 47.8 ng/mL [facility] Work Phone: Comment on above: Vitamin D 25(OH) Sta tus Range Deficiency <20 ng/mL (50nmol/L) Insufficiency 20 - 30 ng/mL (50 - 75 nmol/L) Sufficiency 30 - 100 ng/mL (75 - 250 nmol/L) Toxicity >100 ng/mL (>250 nmol/L) Platelets bldon 03-31-2022 Platelets (Bld) [#/Vol] 307 10*3/uL 150-450 Work Phone: Serum or plasma albumin virgie urement (mass/volume)on 03-31-2022 Albumin [Mass/Vol] 3.6 g/dL 3.2-5.0 [facility] Work Phone: [phone] Serum or plasma albumin/glob ulin mass ratioon 03-31-2022 Albumin/Globulin [Mass ratio] 1.0 {ratio} 0.9-2.4 Work Phone: [phone] Serum or plasma calcium virgie urement (mass/volume)on 03-31-2022 Calcium [Mass/Vol] 8.9 mg/dL 8.5-10.1 [facility] Work Phone: [phone] Serum or plasma cholesterol in HDL measurement (mass/volume)on 03-31-2022 Cholesterol in HDL [Mass/Vol] 38 mg/dL >40 Work Phone: Comment on above: The drugs N-Acetylcy steine and Metamizole may falsely depress this assay. Reference Range HDL <40 mg/dL Low HDL Cholesterol HDL >or= 60 mg/dL High HDL Cholesterol Serum or plasma cholesterol in VLDL measurement (mass/volume)on 03-31-2022 Cholesterol in VLDL [Mass/Vol] 28 mg/dL 5-40 Work Phone: Serum or plasma creatinine m easurement (mass/volume)on 03-31-2022 Creatinine [Mass/Vol] 0.76 mg/dL 0.55-1.02 [facility] Work Phone: Comment on above: The validity of the calculated GFR & GFRAA in patients over 70 years has not been determined. Clinical correlation is essential. Serum or plasma low density lipoprotein (LDL) cholesterol measurement (mass/volume)on 03-31-2022 Cholesterol in LDL [Mass/Vol] 94 mg/dL 0-130 Work Phone: Serum or plasma urea nitroge n measurement (mass/volume)on 03-31-2022 Urea nitrogen [Mass/Vol] 13 mg/dL 7-18 Work Phone: Thin prep Papanicolaou smear with manual screeningon 03-31-2022 Thin prep Papanicolaou smear with manual screening 21 U/L 15-37 Work Phone: Thin prep Papanicolaou smear with manual screening 6 5-15 Work Phone: Vital Signs Date Time Vital Sign Value Performing Clinician Faci lity 01-06-2025 15:56-0400 Body height 157.48 cm Ricki Griffin [employer] Work Phone: 01-06-2025 15:56-0400 Body mass index (BMI) [Ratio] 32.7 kg/m2 Ricki Griffin [employer] Work Phone: 01-06-2025 15:56-0400 Body weight 81.19 kg Ricki Griffin [employer] Work Phone: 01-06-2025 15:56-0400 Diastolic blood pressure 78 mm[Hg] Ricki Griffin [employer] Work Phone: 01-06-2025 15:56-0400 Heart rate 69 /min Ricki Griffin [employer] Work Phone: 01-06-2025 15:56-0400 Respiratory rate 18 /min Ricki Holbrookpkins [employer] Work Phone: 01-06-2025 15:56-0400 Systolic blood pressure 130 mm[Hg] Ricki Griffin [employer] Work Phone: 09-21-2024 15:26-0500 Body height 156.2 cm Aracelis Lozoya MD Work Phone: [facility] 09-21-2024 15:26-0500 Body mass index (BMI) [Ratio] 32.16 kg/m2 Aracelis Lozoya MD Work Phone: [facility] 09-21-2024 15:26-0500 Body weight 78.47 kg Aracelis Lozoya MD Work Phone: [facility] 09-21-2024 15:26-0500 Diastolic blood pressure 78 mm[Hg] Aracelis Lozoya MD Work Phone: [facility] 09-21-2024 15:26-0500 Systolic blood pressure 140 mm[Hg] Aracelis Lozoya MD Work Phone: [facility] 12-27-2023 11:51-0400 Body weight 73.48 kg Shay Aurin ANNUAL CAMPAIGN MANAGER.[employer]PER[employer] Work Phone: [facility] 12-27-2023 11:51-0400 Diastolic blood pressure 67 mm[Hg] Shay Aurin ANNUAL CAMPAIGN MANAGER.[employer]ONEM[employer]ON SUPERVISOR Work Phone: [facility] 12-27-2023 11:51-0400 Heart rate 71 /min Shay Aurin ANNUAL CAMPAIGN MANAGER.STONEMASON SUPERVISOR Work Phone: [facility] 12-27-2023 11:51-0400 SaO2% (BldA) [Mass fraction] 96 % Shay Aurin ANNUAL CAMPAIGN MANAGER.[employer]ONEM[employer]ON SUPERVISOR Work Phone: [facility] 12-27-2023 11:51-0400 Systolic blood pressure 132 mm[Hg] Shay Aurin ANNUAL CAMPAIGN MANAGER.STONEMASON SUPERVISOR Work Phone: [facility] 09-17-2023 08:58-0500 Body height 157.48 cm [employer] Ricki Griffin [employer] Work Phone: 09-17-2023 08:58-0500 Body mass index (BMI) [Ratio] 29.3 kg/m2 [employer] Ricki Griffin [employer] Work Phone: 09-17-2023 08:58-0500 Body weight 72.74 kg [employer] Ricki Griffin [employer] Work Phone: 09-17-2023 08:58-0500 Diastolic blood pressure 60 mm[Hg] [employer] Ricki Griffin [employer]ER Work Phone: 09-17-2023 08:58-0500 Heart rate 75 /min [employer] Ricki Griffin [employer] CLE[employer]ER Work Phone: 09-17-2023 08:58-0500 Respiratory rate 18 /min [employer] Ricki Griffin [employer] Work Phone: 09-17-2023 08:58-0500 SaO2% (BldA) [Mass fraction] 94 % [employer] Ricki Griffin [employer] Work Phone: 09-17-2023 08:58-0500 Systolic blood pressure 110 mm[Hg] [employer] Ricki Griffin [employer] Work Phone: 07-12-2023 12:19-0400 Body weight 74.03 kg Shay Aurin ANNUAL CAMPAIGN MANAGER.[employer]ONEM[employer]ON SUPERVISOR Work Phone: [facility] 07-12-2023 12:19-0400 Diastolic blood pressure 76 mm[Hg] Shay Aurin ANNUAL CAMPAIGN MANAGER.STONEMASON SUPERVISOR Work Phone: [facility] 07-12-2023 12:19-0400 Heart rate 69 /min Shay Aurin ANNUAL CAMPAIGN MANAGER.STONEMASON SUPERVISOR Work Phone: [facility] 07-12-2023 12:19-0400 SaO2% (BldA) [Mass fraction] 98 % Shay Teresa ANNUAL CAMPAIGN MANAGER.STONEMASON SUPERVISOR Work Phone: [facility] 07-12-2023 12:19-0400 Systolic blood pressure 139 mm[Hg] Shay Teresa ANNUAL CAMPAIGN MANAGER.STONEMASON SUPERVISOR Work Phone: [facility] 06-26-2023 13:34-0400 Body mass index (BMI) [Ratio] 32 kg/m2 [employer] Ricki Griffin [employer] Work Phone: 06-26-2023 13:34-0400 Body weight 74.38 kg [employer] Ricki Griffin [employer] CLE[employer]ER Work Phone: 06-26-2023 13:34-0400 Diastolic blood pressure 78 mm[Hg] [employer] Ricki Griffin [employer]ER Work Phone: 06-26-2023 13:34-0400 Heart rate 71 /min [employer] Ricki Griffin [employer]ER Work Phone: 06-26-2023 13:34-0400 Respiratory rate 18 /min [employer] Ricki Griffin [employer]ER Work Phone: 06-26-2023 13:34-0400 SaO2% (BldA) [Mass fraction] 96 % [employer] Ricki Griffin [employer]ER Work Phone: 06-26-2023 13:34-0400 Systolic blood pressure 144 mm[Hg] [employer] Ricki Griffin [employer] Work Phone: 05-14-2023 00:11-0400 Body weight 74.61 kg [employer] Ricki Griffin [employer] CLE[employer]ER Work Phone: 05-10-2023 07:13-0400 Body height 157.48 cm [employer] Ricki Griffin [employer] CLE[employer]ER Work Phone: 05-10-2023 07:13-0400 Body weight 74.61 kg [employer] Ricki Mohrkins [employer] Work Phone: 04-24-2023 18:30-0400 Diastolic blood pressure 79 mm[Hg] [employer] Ricki Holbrookpkins [employer]ER Work Phone: 04-24-2023 18:30-0400 Heart rate 82 /min [employer] Ricki Griffin [employer] CLE[employer]ER Work Phone: 04-24-2023 18:30-0400 Respiratory rate 16 /min [employer] Ricki Griffin [employer] CLE[employer]ER Work Phone: 04-24-2023 18:30-0400 SaO2% (BldA) [Mass fraction] 98 % [employer] Ricki Adams [employer]ER Work Phone: 04-24-2023 18:30-0400 Systolic blood pressure 138 mm[Hg] [employer] Ricki Griffin [employer] CLE[employer]ER Work Phone: 04-24-2023 14:22-0400 Body height 160.02 cm [employer] Ricki Gaby [employer]ER Work Phone: 04-24-2023 14:22-0400 Body mass index (BMI) [Ratio] 29.6 kg/m2 [employer] Ricki Adams [employer] Work Phone: 04-24-2023 14:22-0400 Body temperature 97 [degF] [employer] Ricki Griffin [employer]ER Work Phone: 04-24-2023 14:22-0400 Body weight 75.8 kg [employer] Ricki Griffin [employer] Work Phone: 03-25-2023 14:01-0400 Body height 160.02 cm [employer] Ricki Griffin [employer] Work Phone: 03-25-2023 14:01-0400 Body mass index (BMI) [Ratio] 30.1 kg/m2 [employer] Ricki Griffin [employer] CLE[employer]ER Work Phone: 03-25-2023 14:01-0400 Body weight 77.11 kg [employer] Ricki Griffin [employer] CLE[employer]ER Work Phone: 03-25-2023 14:01-0400 Diastolic blood pressure 71 mm[Hg] [employer] Ricki Griffin [employer]ER Work Phone: 03-25-2023 14:01-0400 Heart rate 72 /min [employer] Ricki Griffin [employer] CLE[employer]ER Work Phone: 03-25-2023 14:01-0400 Respiratory rate 18 /min [employer] Ricki Griffin [employer]ER Work Phone: 03-25-2023 14:01-0400 SaO2% (BldA) [Mass fraction] 100 % [employer] Ricki Griffin [employer] CLE[employer]ER Work Phone: 03-25-2023 14:01-0400 Systolic blood pressure 110 mm[Hg] [employer] Ricki Griffin [employer] CLE[employer]ER Work Phone: 03-13-2023 08:59-0400 Body height 160.02 cm [employer] Ricki Griffin [employer] CLE[employer]ER Work Phone: 03-13-2023 08:59-0400 Body weight 73.02 kg [employer] Ricki Griffin [employer]ER Work Phone: 03-13-2023 08:44-0400 Body mass index (BMI) [Ratio] 28.5 kg/m2 [employer] Ricki Griffin [employer] CLE[employer]ER Work Phone: 03-13-2023 08:44-0400 Diastolic blood pressure 69 mm[Hg] [employer] Ricki Griffin [employer]ER Work Phone: 03-13-2023 08:44-0400 Heart rate 66 /min [employer] Ricki Griffin [employer] Work Phone: 03-13-2023 08:44-0400 SaO2% (BldA) [Mass fraction] 96 % [employer] Ricki Griffin [employer] Work Phone: 03-13-2023 08:44-0400 Systolic blood pressure 117 mm[Hg] [employer] Ricki Adams [employer] Work Phone: 03-13-2023 08:25-0400 Respiratory rate 66 /min [employer] Ricki Mohrkins [employer]ER Work Phone: 02-26-2023 10:40-0400 Body temperature 97.1 [degF] [employer] Ricki Griffin [employer] Work Phone: 02-26-2023 10:40-0400 Diastolic blood pressure 96 mm[Hg] [employer] Ricki Griffin [employer] Work Phone: 02-26-2023 10:40-0400 Heart rate 79 /min [employer] Ricki Griffin [employer] Work Phone: 02-26-2023 10:40-0400 Respiratory rate 16 /min [employer] Ricki Griffin [employer] CLE[employer]ER Work Phone: 02-26-2023 10:40-0400 SaO2% (BldA) [Mass fraction] 98 % [employer] Ricki Griffin [employer] Work Phone: 02-26-2023 10:40-0400 Systolic blood pressure 114 mm[Hg] [employer] Ricki Griffin [employer] Work Phone: 02-26-2023 08:12-0400 Body temperature 97.1 [degF] [employer] Ricki Griffin [employer] Work Phone: 02-26-2023 08:12-0400 Diastolic blood pressure 96 mm[Hg] [employer] Ricki Griffin [employer] Work Phone: 02-26-2023 08:12-0400 Heart rate 79 /min [employer] Ricki Griffin [employer] Work Phone: 02-26-2023 08:12-0400 Respiratory rate 16 /min [employer] Ricki Gaby [employer] Work Phone: 02-26-2023 08:12-0400 SaO2% (BldA) [Mass fraction] 98 % [employer] Ricki Griffin [employer] Work Phone: 02-26-2023 08:12-0400 Systolic blood pressure 114 mm[Hg] [employer] Ricki Griffin [employer] Work Phone: 02-26-2023 03:05-0400 Body mass index (BMI) [Ratio] 28.5 kg/m2 [employer] Ricki Griffin [employer] Work Phone: 02-26-2023 03:05-0400 Body weight 73.1 kg [employer] Ricki Griffin [employer] Work Phone: 02-23-2023 14:27-0400 Body height 160.02 cm [employer] Ricki Griffin [employer] Work Phone: 02-23-2023 08:15-0400 Inhaled oxygen flow rate 2 L/min [employer] Ricki Griffin [employer] Work Phone: 02-22-2023 20:18-0400 Body temperature 97.9 [degF] [employer] Ricki Griffin [employer] Work Phone: 02-22-2023 20:18-0400 Diastolic blood pressure 91 mm[Hg] [employer] Ricki Griffin [employer] Work Phone: 02-22-2023 20:18-0400 Heart rate 101 /min [employer] Ricki Griffin [employer] Work Phone: 02-22-2023 20:18-0400 Inhaled oxygen flow rate 4 L/min [employer] Ricki Griffin [employer] Work Phone: 02-22-2023 20:18-0400 Respiratory rate 22 /min [employer] Ricki Holbrookpkins [employer] Work Phone: 02-22-2023 20:18-0400 SaO2% (BldA) [Mass fraction] 92 % [employer] Ricki Holbrookpkins [employer] Work Phone: 02-22-2023 20:18-0400 Systolic blood pressure 176 mm[Hg] [employer] Ricki Adams [employer] Work Phone: 02-22-2023 16:59-0400 Body height 160.02 cm [employer] Ricki Adams [employer] Work Phone: 02-22-2023 16:59-0400 Body mass index (BMI) [Ratio] 29 kg/m2 [employer] Ricki Griffin [employer] Work Phone: 02-22-2023 16:59-0400 Body weight 74.38 kg [employer] Ricki Adams [employer] Work Phone: 02-22-2023 11:14-0400 Respiratory rate 22 /min [employer] Ricki Adams [employer] Work Phone: 02-22-2023 10:33-0400 Diastolic blood pressure 83 mm[Hg] [employer] Ricki Griffin [employer] Work Phone: 02-22-2023 10:33-0400 Heart rate 65 /min [employer] Ricki Gaby [employer] Work Phone: 02-22-2023 10:33-0400 SaO2% (BldA) [Mass fraction] 96 % [employer] Ricki Gaby [employer] Work Phone: 02-22-2023 10:33-0400 Systolic blood pressure 144 mm[Hg] [employer] Ricki Griffin [employer] Work Phone: 02-22-2023 08:29-0400 Body height 160.02 cm [employer] Ricki Griffin [employer] Work Phone: 02-22-2023 08:29-0400 Body mass index (BMI) [Ratio] 29.7 kg/m2 [employer] Ricki Griffin [employer] Work Phone: 02-22-2023 08:29-0400 Body temperature 98.2 [degF] [employer] Ricki Griffin [employer] Work Phone: 02-22-2023 08:29-0400 Body weight 76 kg [employer] Ricki Griffin [employer] Work Phone: 08-14-2022 08:45-0400 Body height 160 cm Aracelis Lozoya MD Work Phone: [facility] 08-14-2022 08:45-0400 Body weight 78.47 kg Aracelis Lozoya MD Work Phone: [facility] 08-14-2022 08:45-0400 Diastolic blood pressure 76 mm[Hg] Aracelis Lozoya MD Work Phone: [facility] 08-14-2022 08:45-0400 Systolic blood pressure 132 mm[Hg] Aracelis Lozoya MD Work Phone: [facility] 08-09-2022 12:18-0400 Diastolic blood pressure 80 mm[Hg] Sony Cedeño MD Work Phone: [facility] 08-09-2022 12:18-0400 Heart rate 71 /min Sony Cedeño MD Work Phone: [facility] 08-09-2022 12:18-0400 Respiratory rate 16 /min Sony Cedeño MD Work Phone: [facility] 08-09-2022 12:18-0400 SaO2% (BldA) [Mass fraction] 94 % Sony Cedeño MD Work Phone: [facility] 08-09-2022 12:18-0400 Systolic blood pressure 146 mm[Hg] Sony Cedeño MD Work Phone: [facility] 08-09-2022 10:39-0400 Body temperature 97.2 [degF] Sony Cedeño MD Work Phone: [facility] 07-17-2022 14:54-0400 Body height 160 cm Sony Cedeño MD Work Phone: [facility] 07-17-2022 14:54-0400 Body temperature 96.8 [degF] Sony Cedeño MD Work Phone: [facility] 07-17-2022 14:54-0400 Body weight 78.47 kg Sony Cedeño MD Work Phone: [facility] 07-17-2022 14:54-0400 Diastolic blood pressure 64 mm[Hg] Sony Cedeño MD Work Phone: [facility] 07-17-2022 14:54-0400 Heart rate 68 /min Sony Cedeño MD Work Phone: [facility] 07-17-2022 14:54-0400 SaO2% (BldA) [Mass fraction] 96 % Sony Cedeño MD Work Phone: [facility] 07-17-2022 14:54-0400 Systolic blood pressure 124 mm[Hg] Sony Cedeño MD Work Phone: [facility] 07-14-2022 18:05-0400 Body height 157.48 cm [facility] 07-14-2022 18:05-0400 Body mass index (BMI) [Ratio] 30.3 kg/m2 07-14-2022 18:05-0400 Body temperature 97.8 [degF] [facility] 07-14-2022 18:05-0400 Body weight 75.29 kg [facility] 07-14-2022 18:05-0400 Diastolic blood pressure 62 mm[Hg] 07-14-2022 18:05-0400 Heart rate 88 /min [facility] 07-14-2022 18:05-0400 Respiratory rate 16 /min [facility] 07-14-2022 18:05-0400 SaO2% (BldA) [Mass fraction] 98 % 07-14-2022 18:05-0400 Systolic blood pressure 128 mm[Hg] 07-12-2022 15:03-0400 Diastolic blood pressure 79 mm[Hg] 07-12-2022 15:03-0400 Heart rate 72 /min [facility] 07-12-2022 15:03-0400 Respiratory rate 16 /min [facility] 07-12-2022 15:03-0400 SaO2% (BldA) [Mass fraction] 94 % 07-12-2022 15:03-0400 Systolic blood pressure 173 mm[Hg] 07-12-2022 10:45-0400 Body height 157.48 cm [facility] Work Phone: 07-12-2022 10:45-0400 Body mass index (BMI) [Ratio] 30.4 kg/m2 07-12-2022 10:45-0400 Body temperature 96.2 [degF] [facility] 07-12-2022 10:45-0400 Body weight 75.65 kg [facility] Encounters Encounter Date Encounter Type Care Provider Facility Start: 05-13-2025 End: 05-13-2025 ambulatory RICKI GRIFFIN ANNUAL CAMPAIGN MANAGER - STONEMASON SUPERVISOR Facility:[facility] Start: 05-13-2025 End: 05-13-2025 Patient encounter procedure RICKI GRIFFIN ANNUAL CAMPAIGN MANAGER - STONEMASON SUPERVISOR [facility] Start: 05-01-2025 End: 05-01-2025 ambulatory Ricki Griffin COTTON CLEANER-C Work Phone: -Laboratory Specimen Start: 05-01-2025 End: 05-01-2025 Patient encounter procedure Ricki Griffin COTTON CLEANER-C -Laboratory Specimen Work Phone: Start: 04-30-2025 End: 05-01-2025 ambulatory Ricki Jonesnis Gaby COTTON CLEANER-C Work Phone: -Laboratory Start: 04-30-2025 End: 04-30-2025 Patient encounter procedure Ricki Mohrkins COTTON CLEANER-C -Laboratory Work Phone: Start: 04-30-2025 End: 04-30-2025 ambulatory Ricki Griffin COTTON CLEANER Facility: Start: 03-30-2025 Non-patient / Non-visit Lashay muñiz COTTON CLEANER-C -[facility] Work Phone: Start: 03-30-2025 ambulatory Lashay Prater COTTON CLEANER Facili ty:[facility] Start: 03-29-2025 Non-patient / Non-visit Dr. Bill CLAY -[facility] Start: 03-29-2025 End: 03-29-2025 ambulatory Ricki Griffin [employer]OTTON CLEANER-C Work Phone: Work Phone: Start: 03-29-2025 End: 03-29-2025 Patient encounter procedure Austen Castro COTTON CLEANER-C -Cardiovascular Services Work Phone: Start: 03-29-2025 End: 03-29-2025 ambulatory Ricki Griffin COTTON CLEANER Facility: Start: 03-12-2025 End: 03-12-2025 ambulatory Ricki Griffin COTTON CLEANER-C Work Phone: Work Phone: Start: 03-12-2025 End: 03-12-[address] Jose Antonio Reeves MD -Laboratory Work Phone: Start: 03-12-2025 End: 03-12-2025 ambulatory Jose Antonio Reeves Facility: Start: 01-06-2025 End: 01-06-2025 Patient encounter procedure Austen Castro COTTON CLEANER-C -[facility] Work Phone: Start: 01-06-2025 End: 01-06-2025 ambulatory Ricki Griffin COTTON CLEANER [facility] Start: 12-21-2024 End: 12-21-2024 Telephone encounter Aracelis Lozoya MD Work Phone: OB/Gynecology Comment on above: Results Start: 12-07-2024 End: 12-07-2024 Patient encounter procedure Ricki Griffin COTTON CLEANER-C -Laboratory Work Phone: Start: 12-07-2024 End: 12-07-2024 ambulatory Ricki Griffin COTTON CLEANER Facility: Start: 11-23-2024 End: 01-23-2025 Follow-up encounter Aracelis Lozoya MD Work Phone: OB/Gynecology Start: 11-19-2024 End: 11-19-2024 ambulatory ARACELIS LOZOYA Facility:[facility] Start: 11-19-2024 End: 11-19-2024 Subsequent hospital visit by physician Bone Density [facility] Work Phone: Radiology Comment on above: Encounter for screen ing for osteoporosis [Z13.820] Start: 09-21-2024 End: 09-21-2024 ambulatory ARACELIS LOZOYA Facility:[facility] Start: 09-21-2024 End: 09-21-2024 Patient encounter [...] encounter status Aracelis Lozoya MD Work Phone: [facility] Start: 09-16-2024 End: 09-16-2024 ambulatory RICKI GRIFFIN Facility:[facility] Start: 09-16-2024 End: 09-16-2024 Subsequent hospital visit by physician Screen Mammo [facility] Comment on above: Encounter for screen ing mammogram for malignant neoplasm of breast [Z12.31] Start: 06-23-2024 End: 06-23-2024 ambulatory Ricki Griffin COTTON CLEANER Facility[facility] Start: 06-02-2024 End: 06-02-2024 ambulatory Ricki Griffin COTTON CLEANER Facility: Start: 12-27-2023 End: 12-27-2023 ambulatory RICKI GRIFFIN Facility:[facility] Start: 12-27-2023 End: 12-27-2023 Patient encounter procedure Shay Teresa APRN.STONEMASON SUPERVISOR Work Phone: Cardiology Comment on above: Chronic systolic hea rt failure (HCC) (Primary Dx); Primary hypertension; 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; Hyperlipidemia, unspecified hyperlipidemia type; Ischemic cardiomyopathy Start: 11-13-2023 End: 11-13-2023 ambulatory COTTON CLEANER-C Ricki Griffin COTTON CLEANER Work Phone: Work Phone: Start: 11-13-2023 End: 11-13-2023 Patient encounter procedure [employer]OTTON CLEANER-C Ricki Griffin COTTON CLEANER Work Phone: -Laboratory Work Phone: Start: 09-19-2023 Non-patient / Non-visit COTTON CLE[employer]ER-C Meenu Griffin COTTON CLEANER Work Phone: [facility] Work Phone: Start: 09-18-2023 Non-patient / Non-visit COTTON CLEANER-C Meenu Griffin COTTON CLEANER Work Phone: [facility] Start: 09-18-2023 End: 09-18-2023 ambulatory COTTON CLE[employer]ER-C Ricki Griffin COTTON CLEANER Work Phone: Work Phone: Start: 09-18-2023 End: 09-18-2023 Patient encounter procedure COTTON CLEANER-C Ricki Griffin COTTON CLEANER Work Phone: -Cardiovascular Services Work Phone: Start: 09-17-2023 End: 09-17-2023 Patient encounter procedure COTTON CLEANER-Fatimah Griffin COTTON CLEANER Work Phone: [facility] Work Phone: Start: 08-30-2023 End: 08-30-2023 Subsequent hospital visit by physician Screen Mammo [facility] Comment on above: Encounter for screen ing mammogram for malignant neoplasm of breast [Z12.31] Start: 07-12-2023 End: 07-12-2023 ambulatory RICKI GRIFFIN Facility:[facility] Start: 07-12-2023 End: 07-12-2023 Patient encounter procedure Shay Teresa APRN.STONEMASON SUPERVISOR Work Phone: Cardiology Comment on above: Chronic systolic hea rt failure (HCC) (Primary Dx); Primary hypertension; 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; Hyperlipidemia, unspecified hyperlipidemia type; Ischemic cardiomyopathy Start: 06-26-2023 End: 06-26-2023 Patient encounter procedure COTTON CLEANER-Fatimah Griffin COTTON CLEANER Work Phone: [facility] Work Phone: Start: 06-07-2023 End: 06-07-2023 ambulatory IRCKI GRIFFIN Facility:[facility] Start: 05-22-2023 End: 06-13-2023 ambulatory COTTON CLEANER-C Ricki Griffin COTTON CLEANER Work Phone: Work Phone: Start: 05-22-2023 End: 06-13-2023 Discharged Recurring COTTON CLEANER-C Ricki Griffin COTTON CLEANER Work Phone: -Cardiac Rehab Work Phone: Start: 05-22-2023 Registered Recurring COTTON CLEANER-C Froylan Griffin COTTON CLEANER Work Phone: -Cardiac Rehab Work Phone: Start: 05-21-2023 Non-patient / Non-visit COTTON CLEANER-C Meenu Griffin COTTON CLEANER Work Phone: [facility] Start: 05-21-2023 End: 05-21-2023 ambulatory COTTON CLEANER-C Ricki Griffin COTTON CLEANER Work Phone: Work Phone: Start: 05-21-2023 End: 05-21-2023 Patient encounter procedure COTTON CLEANER-C Ricki Griffin COTTON CLEANER Work Phone: -Cardiovascular Services Work Phone: Start: 05-13-2023 End: 05-13-2023 ambulatory COTTON CLEANER-C Ricki Griffin COTTON CLEANER Work Phone: Work Phone: Start: 05-13-2023 End: 05-13-2023 Discharged Recurring COTTON CLEANER-C Ricki Griffin COTTON CLEANER Work Phone: -Cardiac Rehab Work Phone: Start: 05-03-2023 End: 05-03-2023 Patient encounter procedure COTTON CLEANER-C Ricki Griffin COTTON CLEANER Work Phone: -Laboratory Work Phone: Start: 04-24-2023 End: 04-24-2023 Emergency department patient visit COTTON CLEANER-C Ricki Griffin COTTON CLEANER Work Phone: -Emergency Department Work Phone: Start: 04-22-2023 Registered Recurring COTTON CLEANER-C Froylan Griffin COTTON CLEANER Work Phone: -Cardiac Rehab Work Phone: Start: 04-12-2023 End: 04-12-2023 ambulatory COTTON CLEANER-C Ricki Griffin COTTON CLEANER Work Phone: Work Phone: Start: 04-12-2023 End: 04-12-2023 Discharged Recurring COTTON CLEANER-C Ricki Griffin COTTON CLEANER Work Phone: -Cardiac Rehab Work Phone: Start: 03-25-2023 Telephone encounter Melissa clarke CLAY.STONEMASON SUPERVISOR Work Phone: [facility] Cardiology Padmini Comment on above: 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 Start: 03-25-2023 End: 03-25-2023 Patient encounter procedure COTTON CLEANER-C Ricki Griffin COTTON CLEANER Work Phone: [facility] Work Phone: Start: 03-22-2023 Non-patient / Non-visit COTTON CLEANER-C Meenu Griffin COTTON CLEANER Work Phone: [facility] Work Phone: Start: 03-14-2023 End: 03-14-2023 Patient encounter procedure COTTON CLEANER-C Ricki Griffin COTTON CLEANER Work Phone: [facility] Start: 03-13-2023 End: 03-13-2023 ambulatory COTTON CLEANER-C Ricki Griffin COTTON CLEANER Work Phone: Work Phone: Start: 03-13-2023 End: 03-13-2023 Patient encounter procedure COTTON CLEANER-C Ricki Griffin COTTON CLEANER Work Phone: -Cardiac Rehab Start: 03-07-2023 End: 03-07-2023 ambulatory SHAY TERESA Facility:[facility] Start: 03-04-2023 Non-patient / Non-visit COTTON CLEANER-C Meenu Griffin COTTON CLEANER Work Phone: [facility] Start: 02-26-2023 End: 03-01-2023 Evaluation and management of inpatient OLY ARIELLE [facility] Start: 02-26-2023 Non-patient / Non-visit COTTON CLEANER-C Meenu Griffin COTTON CLEANER Work Phone: [facility] Start: 02-26-2023 Non-patient / Non-visit COTTON CLEANER-C Meenu Griffin COTTON CLEANER Work Phone: [facility] Start: 02-25-2023 Non-patient / Non-visit COTTON CLEANER-C R saima Griffin COTTON CLEANER Work Phone: [facility] Start: 02-25-2023 Non-patient / Non-visit COTTON CLEANER-C R saima Griffin COTTON CLEANER Work Phone: [facility] Start: 02-24-2023 Non-patient / Non-visit COTTON CLEANER-C R saima Griffin COTTON CLEANER Work Phone: [facility] Start: 02-23-2023 Non-patient / Non-visit COTTON CLEANER-C R saima Griffin COTTON CLEANER Work Phone: [facility] Start: 02-23-2023 Non-patient / Non-visit COTTON CLEANER-C Meenu Griffin COTTON CLEANER Work Phone: [facility] Start: 02-22-2023 End: 02-26-2023 Evaluation and management of inpatient COTTON CLEANER-C Ricki Griffin COTTON CLEANER [facility] Start: 02-22-2023 End: 02-22-2023 Emergency department patient visit COTTON CLEANER-C Ricki Griffin COTTON CLEANER Work Phone: -Emergency Department Start: 02-21-2023 Non-patient / Non-visit COTTON CLEANER-C Meenu Griffin COTTON CLEANER Work Phone: [facility] Start: 02-21-2023 End: 02-21-2023 ambulatory COTTON CLEANER-C Ricki Griffin COTTON CLEANER Work Phone: Work Phone: Start: 02-21-2023 End: 02-21-2023 Patient encounter procedure COTTON CLEANER-C Ricki Griffin COTTON CLEANER Work Phone: [facility] Start: 02-08-2023 End: 02-08-2023 Patient encounter procedure COTTON CLEANER-C Ricki Griffin NP Work Phone: -Laboratory Start: 11-28-2022 Registered Recurring COTTON CLEANER-C Froylan Griffin COTTON CLEANER Work Phone: -Physical Therapy Start: 10-20-2022 End: 10-20-2022 ambulatory Work Phone: Start: 10-20-2022 End: 10-20-2022 Patient encounter procedure -Radiology, [facility] Start: 09-21-2022 End: 09-26-2022 ambulatory SAMEER HILLMAN ANNUAL CAMPAIGN MANAGER-STONEMASON SUPERVISOR Facility:[facility] Start: 09-21-2022 End: 09-25-2022 Outreach Lab SAMEER RAFY ANNUAL CAMPAIGN MANAGER-STONEMASON SUPERVISOR [facility] Start: 09-07-2022 End: 09-07-2022 ambulatory Jackie Schneider PA-C Work Phone: General Surgery Comment on above: Other gastritis with out bleeding (Primary Dx) Start: 09-07-2022 End: 09-07-2022 Telemedicine consultation with patient Jackie Schneider PA-C Work Phone: [facility] Start: 08-15-2022 Documentation procedure Mammog anthony Coordinator [facility] Start: 08-15-2022 Letter encounter Mammography Coordinator [facility] Department Start: 08-14-2022 End: 08-14-2022 Subsequent hospital visit by physician Screen Mammo [facility] Start: 08-14-2022 End: 08-14-2022 Patient [...] 07-14-2022 End: 07-14-2022 [facility] Start: 07-12-2022 End: 07-12-2022 Emergency department patient visit -Emergency Department Start: 03-31-2022 End: 03-31-2022 Patient encounter procedure -Laboratory Procedures Date Procedure Procedure Detail Performing Clinician Start: 12-07-2024 Measurement of renal function Ricki mackey COTTON CLEANER-C Work Phone: Comment on above: GFR Calc Start: 12-07-2024 Microalbuminuria measurement Ricki cornelius COTTON CLEANER-C Work Phone: Start: 12-07-2024 Urine microalbumin/creatinine ratio measurement Ricki Griffin COTTON CLEANER-C Work Phone: Start: 12-07-2024 Vitamin D, 25-hydroxy measurement Neeraj Griffin COTTON CLEANER-C Work Phone: Comment on above: Vitamin D 25(OH) Status Range Deficiency <20 ng/mL (50nmol/L) Insufficiency 20 - 30 ng/mL (50 - 75 nmol/L) Sufficiency 30 - 100 ng/mL (75 - 250 nmol/L) Toxicity >100 ng/mL (>250 nmol/L) Start: 09-16-2024 Screening digital breast tomosynthesis bi Aracelis Lozoya MD Work Phone: Start: 02-27-2023 History of appendectomy History of appendectomy Melissa Koroma ANNUAL CAMPAIGN MANAGER.STONEMASON SUPERVISOR Work Phone: Start: 02-27-2023 History of cholecystectomy History of cholecystectomy Melissa Koroma ANNUAL CAMPAIGN MANAGER.STONEMASON SUPERVISOR Work Phone: Start: 02-23-2023 Streptococcus pneumoniae Antigen (M COTTON CLEANER-C Ricki Griffin COTTON CLEANER Work Phone: Start: 02-22-2023 Plain chest X-ray COTTON CLEANER-C Ricki Griffin COTTON CLEANER Work Phone: Start: 02-22-2023 Computed tomography of abdomen and pelvis with intravenous contrast COTTON CLEANER-C Ricki Griffin COTTON CLEANER Work Phone: Start: 02-22-2023 Bacteria identified in Blood by Culture COTTON CLEANER-C Ricki Griffin COTTON CLEANER Work Phone: Start: 02-08-2023 Plain chest X-ray COTTON CLEANER-C Ricki Griffin COTTON CLEANER Work Phone: Start: 10-20-2022 Plain x-ray of [...] panel - Serum or Plasma Shay Teresa ANNUAL CAMPAIGN MANAGER.STONEMASON SUPERVISOR Work Phone: Bacteria identified in Blood by Culture COTTON CLEANER-Fatimah Griffin COTTON CLEANER Work Phone: Cardiac catheterization TRISHA HILLMAN ANNUAL CAMPAIGN MANAGER-STONEMASON SUPERVISOR Cholecystectomy SAMEER REESE ANNUAL CAMPAIGN MANAGER-STONEMASON SUPERVISOR Entire heart (body structure) SAMEER HILLMAN ANNUAL CAMPAIGN MANAGER-STONEMASON SUPERVISOR Comment on above: stent History of appendectomy History of appendectomy History of cholecystectomy Hx of cholecys tectomy MRI guided biopsy of right breast SAMEER HILLMAN ANNUAL CAMPAIGN MANAGER-STONEMASON SUPERVISOR Placement of stent i n cardiac conduit SAMEER HILLMAN ANNUAL CAMPAIGN MANAGER-STONEMASON SUPERVISOR Plan of Treatment Date Care Activity Detail Author Start: 09-21-2029 Screening for malignant neoplasm of cervix Cervical Cancer Screening [facility] Start: 09-13-2026 Colonoscopy COLONOSCOPY [facility] Start: 09-13-2026 COLORECTAL CANCER SCREENING COLORECTAL CANCER SCREENING [facility] Start: 09-13-2026 Screening for malignant neoplasm of colon [facility] Start: 05-16-2026 HPV TESTING HPV TESTING [facility] Start: 05-16-2026 PAP TESTING PAP TESTING [facility] Start: 05-16-2026 Screening for malignant neoplasm of cervix [facility] Start: 03-01-2026 DIABETES SCREEN DIABETES SCREEN [facility] Start: 03-01-2026 Diabetes Screening Diabetes Screening [facility] Start: 09-23-2025 End: 09-23-2025 Patient encounter procedure 09/23/2025 11:20 AM EST Office Visit OB/Gynecology [address] [place] [id number] Aracelis Mccormick MD [address] [place] [address] Annual OB/Gynecology Comment on above: Annual Start: 09-23-2025 End: 09-23-2025 Patient encounter procedure 09/23/2025 10:10 AM EST Appointment Mammogram [address] [place] [id number] Encounter for screening mammogram for breast cancer [Z12.31] Mammogram Comment on above: Encounter for screening mammogram for br east cancer [Z12.31] Start: 09-16-2025 Screening for malignant neoplasm of breast Mammogram Screening [facility] Start: 11-19-2024 End: 11-19-2024 Patient encounter procedure 11/19/2024 3:25 PM EST Appointment Radiology [address] [place] [id number] Asymptomatic postmenopausal status [Z78.0] Radiology Comment on above: Asymptomatic postmenopausal status [Z78. 0] Start: 09-17-2024 End: 09-17-2024 Patient encounter procedure 09/17/2024 1:20 PM EST Office Visit OB/Gynecology [address] [place] [address] Aracelis Mccormick MD [address] [place] [address] 2 year annual OB/Gynecology Comment on above: 2 year annual Start: 08-30-2024 Screening for malignant neoplasm of breast Mammogram Screening [facility] Start: 06-14-2024 Covid-19 Vaccine () Covid-19 Vaccine () [facility] Start: 06-14-2024 Influenza vaccination Influenza Vaccine (#1) [facility] Start: 03-07-2024 BP CONTROLLED (<130/80) BP CONTROLLED (<130/80) [facility] Start: 02-28-2024 PNEUMOCOCCAL (2 - PCV) PNEUMOCOCCAL (2 - PCV) [facility] Start: 02-28-2024 Pneumococcal vaccination [facility] Start: 02-28-2024 Pneumococcal Vaccine: 50+ (2 of 2 - PCV) Pneumococcal Vaccine: 50+ (2 of 2 - PCV) [facility] Start: 10-14-2023 Depression Assessment Depression Assessment [facility] Start: 08-14-2023 Mammography [facility] Start: 07-17-2023 BP CONTROLLED (<130/80) BP CONTROLLED (<130/80) [facility] Start: 06-14-2023 Covid-19 Vaccine () Covid-19 Vaccine () [facility] Start: 06-14-2023 Influenza vaccination [facility] Start: 03-04-2023 Patient referral Work Phone: Start: 02-28-2023 Electrocardiographic procedure Start: 02-27-2023 Electrocardiographic procedure Start: 02-26-2023 Patient discharge Start: 02-25-2023 Cardiac monitoring Start: 02-25-2023 Cardiac rehabilitation - phase 1 Start: 02-25-2023 Notification of physician [facility] Start: 02-25-2023 Patient discharge Start: 02-25-2023 Systemic arterial pressure monitoring Start: 02-25-2023 Taking patient vital signs [facility] Start: 02-25-2023 Vascular disease risk assessment Start: 02-25-2023 Vital signs measurements [facility] Start: 02-25-2023 Start: 02-23-2023 Referral to stitcher feeder [facility] Start: 02-22-2023 Blood culture Start: 02-22-2023 Application of intermittent pneumatic compression device Start: 02-22-2023 Following clinical pathway protocol Start: 02-22-2023 Aspiration precautions Start: 02-22-2023 Assessment of risk of venous thromboembolism Start: 02-22-2023 Cardiac monitoring Start: 02-22-2023 Catheterization of vein [facility] Start: 02-22-2023 Chart related administrative procedure Start: 02-22-2023 Insertion of catheter into peripheral vein Start: 02-22-2023 Measuring intake and output [facility] Start: 02-22-2023 Notification of physician [facility] Start: 02-22-2023 Oxygen therapy Start: 02-22-2023 Providing care according to standard Start: 02-22-2023 Referral to gastroenterology service Start: 02-22-2023 Vital signs measurements [facility] Start: 02-22-2023 Start: 02-22-2023 Verification routine Start: 02-22-2023 End: 02-22-2023 Blood culture Start: 02-22-2023 Legionella pneumophila Ag [Presence] in Urine Start: 02-22-2023 Streptococcus pneumoniae antigen assay Start: 02-22-2023 Admission procedure Start: 02-22-2023 Patient referral to dietitian [facility] Start: 10-14-2022 DEPRESSION ASSESSMENT DEPRESSION ASSESSMENT [facility] Start: 06-14-2022 Influenza vaccination INFLUENZA (#1) [facility] Start: 05-16-2022 Mammography MAMMOGRAM [facility] Start: 2022 RSV Vaccine (1 - 1-dose 60+ series) RSV Vaccine (1 - 1-dose 60+ series) [facility] Start: 2022 RSV Vaccine (1 - Risk 60-74 years 1-dose series) RSV Vaccine (1 - Risk 60-74 years 1-dose series) [facility] Start: 11-23-2021 COVID-19 VACCINE (5 - Booster for Pfizer series) COVID-19 VACCINE (5 - Booster for Pfizer series) [facility] Start: 11-23-2021 COVID-19 VACCINE (5 - Booster) COVID-19 VACCINE (5 - Booster) [facility] Start: 11-23-2021 Covid-19 Vaccine (6 - Pfizer series) Covid-19 Vaccine (6 - Pfizer series) [facility] Start: 10-14-2021 DEPRESSION ASSESSMENT DEPRESSION ASSESSMENT [facility] Start: 08-22-2019 DIABETES SCREEN DIABETES SCREEN [facility] Start: 08-02-2017 Lipid 1996 panel - Serum or Plasma Lipid Screening [facility] Start: 08-02-2017 Lipid panel Lipid Screening [facility] Start: 08-02-2017 LIPID SCREEN LIPID SCREEN [facility] Start: 2012 SHINGRIX VACCINE (1 of 2) SHINGRIX VACCINE (1 of 2) [facility] Start: 2007 COLOGUARD (FIT-DNA) COLOGUARD (FIT-DNA) [facility] Start: [address] COLONOGRAPHY [facility] Start: 2007 FECAL OCCULT BLOOD FECAL OCCULT BLOOD [facility] Start: 2007 Screening for malignant neoplasm of colon [facility] Start: 2007 SIGMOIDOSCOPY SIGMOIDOSCOPY [facility] Start: 1992 Zoledronic acid therapy ALPHA-1 ANTITRYPSIN DEFICIENCY SCREENING [facility] Start: 1981 Urine microalbumin profile [facility] Start: 1980 ANNUAL PCP TEAM CHRONIC DISEASE VISIT ANNUAL PCP TEAM CHRONIC DISEASE VISIT [facility] Start: 1980 Anxiety Screening Anxiety Screening [facility] Start: 1980 BP CONTROLLED (<130/80) BP CONTROLLED (<130/80) [facility] Start: 1980 Depression Screening Depression Screening [facility] Start: 1980 Hepatitis B surface antibody level LDL CHOLESTEROL [facility] Start: 1980 HEPATITIS C SCREENING HEPATITIS C SCREENING [facility] Start: 1980 Hepatitis C screening Hepatitis C Screening [facility] Start: 1980 HIV SCREENING HIV SCREENING [facility] Start: 1980 HIV screening HIV Screening [facility] Start: 1980 SPIROMETRY SPIROMETRY [facility] Start: 1968 PNEUMOCOCCAL (1 - PCV) PNEUMOCOCCAL (1 - PCV) [facility] ic Bacteria identified in Blood by Culture Blood Culture End: 10-21-2025 BD DXA TRABECULAR BONE SCORE (TBS) BD DXA TRABECULAR BONE SCORE (TBS) Radiology Routine Encounter for screening for osteoporosis Asymptomatic postmenopausal status 1 Occurrences starting 09/21/2024 until 10/21/2025 [facility] Comment on above: 1 Occurrences starting 09/21/2024 until 10/21/2025 BD DXA TRABECULAR [place] NE SCORE (TBS) BD DXA TRABECULAR BONE SCORE (TBS) Radiology Routine Encounter for screening for osteoporosis Asymptomatic postmenopausal status 11/19/2024 3:47 PM EST [facility] End: 10-21-2025 DBT Breast - bilateral screening JON SCREENING W JOSHUA Radiology Routine Encounter for screening mammogram for breast cancer 1 Occurrences starting 09/21/2024 until 10/21/2025 [facility] Work Phone: Comment on above: 1 Occurrences starting 09/21/2024 until 10/21/2025 End: 09-13-2023 Dxa bone density study 1/> sites axial skel DXA-AXIAL SKELETON Radiology Routine Screening for osteoporosis 1 Occurrences starting 08/14/2022 until 09/13/2023 [facility] Work Phone: Comment on above: 1 Occurrences starting 08/14/2022 until 09/13/2023 End: 10-21-2025 DXA Skeletal system.axial Views for bone density DXA-AXIAL SKELETON Radiology Routine Encounter for screening for osteoporosis Asymptomatic postmenopausal status 1 Occurrences starting 09/21/2024 until 10/21/2025 [facility] Comment on above: 1 Occurrences starting 09/21/2024 until 10/21/2025 DXA Skeletal system. axial Views for bone density DXA-AXIAL SKELETON Radiology Routine Encounter for screening for osteoporosis Asymptomatic postmenopausal status 11/19/2024 3:47 PM EST [facility] Work Phone: End: 07-17-2023 EGD DIAGNOSTIC EGD DIAGNOSTIC Endoscopy Routine Epigastric pain Nausea and vomiting, unspecified vomiting type 1 Occurrences starting 07/17/2022 until 07/17/2023 [facility] Work Phone: Comment on above: 1 Occurrences starting 07/17/2022 until 07/17/2023 Lactic acid measurement [facility] Work Phone: PAP TEST PAP TEST Lab [facility] Encounter for screening for human papillomavirus (HPV) Pap smear for cervical cancer screening 09/21/2024 3:58 PM EST [facility] Patient Education [facility] Work Phone: Patient referral [facility] Work Phone: [facility] Immunizations Immunization Date Immunization Notes Care Provider Fa [facility] 02-27-2023 pneumococcal polysaccharide vaccine, 23 valent Melissa Koroma ANNUAL CAMPAIGN MANAGER.STONEMASON SUPERVISOR Work Phone: [facility] 01-27-2021 SARS-CoV-2 mRNA (tozinameran) vaccine SAMEER HILLMAN ANNUAL CAMPAIGN MANAGER-STONEMASON SUPERVISOR [facility] 01-26-2021 COVID-19 original vaccine, age 12+ yr, monovalent ([employer] - PURPLE TOP) Sony Cedeño MD Work Phone: [facility] Work Phone: 01-06-2021 SARS-CoV-2 mRNA (tosamuelnameran) vaccine SAMEER HILMLAN ANNUAL CAMPAIGN MANAGER-STONEMASON SUPERVISOR [facility] 12-26-2020 COVID-19 original vaccine, age 12+ yr, monovalent ([employer] - PURPLE TOP) Sony Cedeño MD Work Phone: [facility] Work Phone: Payers Date Payer Category Payer Self-pay [id number] 2019 Private Health Insurance [id number] 2015 Blue Cross [facility] [id number] 2015 Unknown [employer]E PPO [id number] 2015-Present [id number] [place] [id number] [facility] [id number] 2015 Unknown [id number] 1960 Unknown [id number] 1960 Unknown [id number] Unknown [facility] [employer] [id number] Unknown [id number] Unknown [id number] Unknown [id number] [id number] Unknown [id number] [id number] Unknown [id number] [id number] Unknown [id number] [id number] Unknown [id number]. 2.462 Unknown [id number] [id number] Unknown [id number] [id number] Unknown [id number] [id number] Social History Date Type Detail Facility Start: 04-20-2021 End: 09-17-2023 Tobacco smoking status NHIS Unknown if ever smoked Start: 2021 Occasional [facility] Start: 2021 None [facility] Start: 2021 Homeless [facility] Start: 2021 Cigarettes [facility] Start: 1960 Sex Assigned At Female [facility] Start: 07-06-2015 [facility] Start: 02-22-2003 End: 02-22-2023 History of tobacco use Cigarette Smoker [facility] Start: 07-06-2015 End: 12-27-2023 Cigarettes smoked current (pack per day) - Reported 0.5 [facility] Start: 07-06-2015 End: 09-21-2024 Tobacco use and exposure Smokeless tobacco non-user [facility] Start: 07-17-2022 Alcohol intake Current non-dr alligator hunter of alcohol (finding) [facility] Start: 1960 Sex Assigned At Not on file C [facility] Start: 07-07-2022 End: 08-14-2022 Exposure to SARS-CoV-2 (event) Not sure [facility] Start: 08-14-2022 End: 09-21-2024 Alcohol intake Current drinker of alcohol (finding) [facility] Start: 07-03-2019 Tobacco smoking status Heavy t obacco smoker (finding) [facility] Start: 02-27-2023 End: 09-21-2024 Tobacco smoking status NHIS Ex-smoker [facility] Work Phone: Start: 02-22-2003 End: 02-22-2023 History of tobacco use Current smoker [facility] Work Phone: Start: 07-12-2023 End: 12-27-2023 Tobacco use panel [facility] National Score (1-10 0), lower number is lower risk 78 [facility] Start: 01-06-2025 End: 02-26-2025 Tobacco smoking status NHIS Current Light tobacco smoker Sexual Orientation [facility] Start: 09-07-2019 Sex Female (finding) [facility] Medical Equipment Procedure Code Equipment Code Equipment Origin al Text Equipment Identifier Dates Drug-eluting coronary artery stent, [id number] [id number]-coated ()[id number] [facility] Start: 02-25-2023 Goals Date Patient Goal Desired Activity /State Functional Status Date Assessment Result Facility 03-01-2023 Are you deaf, or do you have serious difficulty hearing No 03/01/2023 4:39 PM Zak Sharma RN No [facility] 03-01-2023 Are you blind, or do you have serious difficulty seeing, even when wearing glasses No 03/01/2023 4:39 PM EDZak Canales, RN No [facility] 03-01-2023 Do you have serious difficulty walking or climbing stairs No 03/01/2023 4:39 PM EDT Zak Mccray, RN No [facility] 03-01-2023 Do you have difficul ty dressing or bathing No 03/01/2023 4:39 PM EDT Zak Mccray, RN No [facility] 03-01-2023 Because of a physica l, mental, or emotional condition, do you have difficulty doing errands alone such as visiting a physician's office or shopping No 03/01/2023 4:39 PM EDZak Canales, RN No [facility] 02-26-2023 Functional status Patient Activi ty Ambulates;Up ad mallika Work Phone: 02-26-2023 Functional status Ambulates;Up ad mallika [facility] Work Phone: 02-26-2023 Functional status Activity Abili ty Independent Work Phone: 02-25-2023 Functional status Assistive Devices None Work Phone: 02-25-2023 Functional status Tolerates Activity Well Work Phone: Mental Status Date Assessment Result Facility 03-01-2023 Because of a physica l, mental, or emotional condition, do you have serious difficulty concentrating, remembering, or making decisions No 03/01/2023 4:39 PM EDZak Canales, RN No [facility] 02-26-2023 Cognitive function Voice/Name [facility] Work Phone: 02-22-2023 Cognitive function Level Of Cons ciousness Awake;Alert;Appropriate;Fol lows Commands Work Phone: 02-22-2023 Cognitive function Voice/Name [facility] Work Phone: Clinical Notes 09-10-2012 to 05-13-2025 Note Date & Type Note Facility 05-13-2025 Note Exam Date Time Procedure Performing Provider Status 05/13/25 10:21 AM XR Upper GI IAN COTTON MD; Auth (Verified) [id number] ORIGINAL EXAMINATION: DOUBLE CONTRAST UPPER GI SERIES 05/13/2025 TECHNIQUE: Double contrast upper GI series was performed with barium and air contrast. FLUOROSCOPY DOSE AND TYPE: Fluoroscopy time was 2.5 minutes. Radiation dose was 97.6 mGy air kerma COMPARISON: None HISTORY: ORDERING SYSTEM PROVIDED HISTORY: Reason for Exam: to evaluate for esophagitis (erosion, ulcerations, strictures) or Zavala esophagus -H. pylori urea stool or serum antigen to evaluate for the presence of H. pylori (infectious etiology) FINDINGS: The esophagus is of normal caliber and demonstrates normal motility. There are no mucosal abnormalities seen. A small hiatal hernia noted. Mild gastroesophageal reflux seen. Thickened/coarsened appearance of the gastric folds noted. No large ulceration or filling defect visible. Duodenal orientation is normal. No large ulceration visualized. Mild fold thickening suspected. IMPRESSION: Small hiatal hernia and mild gastroesophageal reflux Coarsened gastric folds may relate to gastritis. There is also questionable mild fold thickening the duodenum, possibly inflammatory in etiology. Consider upper endoscopy for further evaluation Interpreted by: Ian Cotton MD Preliminary Report By: Ian Cotton MD Electronically signed By Ian Cotton MD Dictated Date: 05/13/2025 11:45:14 AM Prelim Date: 05/13/2025 11:48:01 AM Sign Date: 05/13/2025 11:48:01 AM Ordering Provider: RICKI [facility]03-26-2025 Evaluation note* Diagnosis Onset Date Resolution Status Admit Date Essential hypertension acute [facility] 2024 3:40pm Hyperlipidemia acute December 3:40pm Ischemic cardiomyopathy acute [facility] 2024 3:40pm Nonsustained ventricular tachycardia acute January 06, 2025 3:40pm Stented coronary artery February 25, 2023 chronic January 06, 2025 3:40pm Work Phone: 1(823) 922-915703-10-2025 Telephone encounter Note* Telephone Encounter - Dinah Singh RN - 12/21/2024 2:30 PM EDT Patient called in requested 11/19/24 bone density result. Advised mychart message was sent by provider, but she does not use her mychart. Read her DM's message to her. All questions answered. Dinah Singh RN [facility]03-10-2025 Miscellaneous Notes* Telephone Encounter - Dinah Singh RN - 12/21/2024 2:30 PM EDT Patient called in requested 11/19/24 bone density result. Advised mychart message was sent by provider, but she does not use her mychart. Read her DM's message to her. All questions answered. Dinah Singh RN documented in this encounterCinc[facility]02-[facility] History of Present illness Narrative* Cristhian Figueroa RT(R) - 11/19/2024 3:25 PM EST Radiology [...] PATIENT PRESENTS WITH AN IMPLANTABLE OR ATTACHED NAIL GALVANIZER: No RADIOLOGY DEPARTMENT: Bone Density PERIPHERAL IV DATA: Not applicable SIGNED BY: RT Mario(Meenu) November 19, 2024 3:27 PM documented in this encounterCincinnati [facility]02-06-2025 NoteHNO ID: [id number] Author: ALMAZ, CRISTHIAN, RT(R) Service: ? Author Type: Technologist Type: Progress [...] PATIENT PRESENTS WITH AN IMPLANTABLE OR ATTACHED NAIL GALVANIZER: No RADIOLOGY DEPARTMENT: Bone Density PERIPHERAL IV DATA: Not applicable SIGNED BY: LAUREL MartinR) November 19, 2024 3:27 [facility]12-09-2024 Instructions* Patient Instructions* Aracelis Mccormick MD - [...] your usual activities immediately. documented in this encounterCincinnati [facility]12-09-2024 NoteHNO ID: [id number] Author: ARACELIS MCCORMICK MD Service: ? Author Type: Physician Type: Progress Notes Filed: 09/21/2024 15:54 Note Text: Alumni Relations Officer offered: Patient declinesLedy Trevino is a 64 year old who [...] L2 SAB1 IAB0 Ectopic0 Multiple0 Live Births0 Manager Radiation History LMP: 03/05/2012 (Approximate), Postmenopausal Age at Menarche: Age at First : Age at Menopause: Manager Radiation History Comments: Sexual Activity: Yes; Male Contraception: [...] discussed with the Patient or Patient's Authorized Payroll Officer. As applicable, any other physician, advance practice provider, medical student, or other health professional student that will be observing or involved in the sensitive examination for educational or training purposes was discussed with the Patient or Authorized Payroll Officer. The Patient or Authorized Payroll Officer has agreed to proceed with the sensitive [...] external genitalia normal, normal Bartholin's glands, urethra, [place]'s glands, no vulvar lesions, no cervical lesions, [...] reviewed. Colon cancer screening: (more content not included)...[facility] 09-21-2024 History of Present illness Narrative* Aracelis Mccormick MD - 09/21/2024 3:22 PM EST Alumni Relations Officer offered: Patient declinesLedy Trevino is a 64 year old who [...] L2 SAB1 IAB0 Ectopic0 Multiple0 Live Births0 Manager Radiation History LMP: 03/05/2012 (Approximate), Postmenopausal Age at Menarche: Age at First : Age at Menopause: Manager Radiation History Comments: Sexual Activity: Yes; Male Contraception: [...] discussed with the Patient or Patient's Authorized Payroll Officer. As applicable, any other physician, advance practice provider, medical student, or other health professional student that will be observing or involved in the sensitive examination for educational or training purposes was discussed with the Patient or Authorized Payroll Officer. The Patient or Authorized Payroll Officer has agreed to proceed with the sensitive [...] external genitalia normal, normal Bartholin's glands, urethra, [place]'s glands, no vulvar lesions, no cervical lesions, [...] needed Aracelis Yoder MD documented in this encounterCinc[facility]12-04-2024 History of Present illness Narrative* Tony Hart, Mammo Tech - 09/16/2024 7:50 AM EST [...] PATIENT PRESENTS WITH AN IMPLANTABLE OR ATTACHED NAIL GALVANIZER: No RADIOLOGY DEPARTMENT: Mammography PERIPHERAL IV DATA: Not applicable SIGNED BY: eCsar Vargas September 16, 2024 8:07 AM documented in this encounterCincinnati Children'S [facility]12-04-2024 NoteHNO ID: [id number] Author: TONY HART Mammo Tech Service: ? Author Type: Survey Researcher Type: Progress Notes Filed: 09/16/2024 08:07 Note [...] PATIENT PRESENTS WITH AN IMPLANTABLE OR ATTACHED NAIL GALVANIZER: No RADIOLOGY DEPARTMENT: Mammography PERIPHERAL IV DATA: Not applicable SIGNED BY: Cesar Vargas September 16, 2024 8:07 [facility]03-15-2024 NoteHNO ID: [id number] Author: SHAY TERESA APRN.CNP Service: ? Author Type: Nurse Practitioner Type: Progress Notes Filed: 12/27/2023 12:33 Note Text: [facility] [place] [facility] OUTPATIENT VISIT DATE December [...] of ventricular tachycardia. She was transferred to [facility] for possible ICD placement. Electrophysiology [...] use inhaler daily. She follows with a stitcher feeder in [place]. Does not weigh every day. Monitors her sodium intake. Does not monitor fluids as well. Weights have been stable at 162-164 lbs. States she had an echocardiogram in September in [place] and reports an ejection fraction of 45%. She was told by her stitcher feeder if it was less than 35% she [...] with HF Clinic and with cardiology in [place]. She is to call the office next [...] once GDMT is optimized -repeat echo in [place] shows 45% from September 2023 Per the [...] BP monitoring 5. 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 [facility] [place] [facility] OUTPATIENT VISIT DATE December 26, 2023 OUTPATIENT VISIT TYPE ESTABLISHED PRIMARY CARE PHYSICIAN: Ricki Griffin, POWDER ROOM ATTENDANT, STONEMASON SUPERVISOR CHIEF COMPLAINT: Patient presents with: Breathing Problem [...] of ventricular tachycardia. She was transferred to [facility] for possible ICD placement. Electrophysiology [...] use inhaler daily. She follows with a stitcher feeder in [place]. Does not weigh every day. Monitors her sodium intake. Does not monitor fluids as well. Weights have been stable at 162-164 lbs. States she had an echocardiogram in September in [place] and reports an ejection fraction of 45%. She was told by her stitcher feeder if it was less than 35% she [...] with HF Clinic and with cardiology in [place]. She is to call the office next [...] once GDMT is optimized -repeat echo in [place] shows 45% from September 2023 Per the [...] BP monitoring 5. 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 Medications reconciled at end of visit: yes I spent 30 minutes in this visit, with more than 50% of the time devoted to patient counseling. SIGNATURE: Shay Teresa APRN.CNP PATIENT NAME: Vishal George DATE: December 27, 2023 TIME: 1200 documented in this encounterCincinnati [facility]03-15-2024 Instructions* Patient Instructions* Shay Teresa APRN.CNP - [...] or concern, you can call me at [phone]. documented in this encounterCincinnati [facility]09-29-2023 NoteHNO ID: [id number] Author: Shay Teresa APRN.MELODY Service: ? Author Type: Nurse Practitioner Type: Progress Notes Filed: 07/12/2023 12:38 PM Note Text: [facility] [place] [facility] OUTPATIENT VISIT DATE July [...] of ventricular tachycardia. She was transferred to [facility] for possible ICD placement. Electrophysiology was consulted. Recommended life vest and repeat echo in 3 months. Cardiology also started patient on carvedilol, jardiance and aldactone along with entresto. Today, the patient reports feeling very well. She follows with a stitcher feeder in [place]. Every once in awhile she feels a [...] once GDMT is optimized -repeat echo in [place] shows 15% Per the patient- no outside records present during visit 3. Hyperlipidemia, unspecified hyperlipidemia type - ICD9: 272.4, ICD10: E78.5 -continue statin therapy 4. Primary hypertension - ICD9: 401.9, ICD10: I10 -BP suboptimal during visit 139/76 mmHg -encourage DASH/low sodium diet -encourage exercise with rest breaks as needed -goal BP <130/80 mmHg -continue home BP monitoring 5. 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 - ICD9: 414.01, [...] SURGERY, COMPLEX 09/29/2012 L (more content not included)...[facility] [id number] Instructions* Patient Instructions* Shay Teresa APRN.STONEMASON SUPERVISOR - 07/12/2023 12:27 PM EDT Continue current [...] or concern, you can call me at [phone]. documented in this encounterCincinnati [facility]09-29-2023 History of Present illness Narrative* Shay Teresa APRN.CNP - 07/12/2023 12:00 PM EDT Images from the original note were not included. [facility] [place] [facility] OUTPATIENT VISIT DATE July [...] of ventricular tachycardia. She was transferred to [facility] for possible ICD placement. Electrophysiology was consulted. Recommended life vest and repeat echo in 3 months. Cardiology also started patient on carvedilol, jardiance and aldactone along with entresto. Today, the patient reports feeling very well. She follows with a stitcher feeder in [place]. Every once in awhile she feels a [...] once GDMT is optimized -repeat echo in [place] shows 15% Per the patient- no outside records present during visit 3. Hyperlipidemia, unspecified hyperlipidemia type - ICD9: 272.4, ICD10: E78.5 -continue statin therapy 4. Primary hypertension - ICD9: 401.9, ICD10: I10 -BP suboptimal during visit 139/76 mmHg -encourage DASH/low sodium diet -encourage exercise with rest breaks as needed -goal BP <130/80 mmHg -continue home BP monitoring 5. 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- ICD9: 414.01, ICD10: I25.10 -stable -s/p LHC [...] is abnormally high No echo performed at [facility]. Patient states echo was done in [place] in May. I have personally reviewed the Laboratory Testing and Echocardiogram. COUNSELING: We discussed the following non-pharmacological measures during this visit: Smoking and alcohol abstinence/cessation, if applicable Dietary and medication compliance Monitoring daily weights and blood pressures Exercise regimen When to call our office Heart Failure Education Booklet: Previously given. Discussed red flags and when to call MD/COTTON CLEANER or [facility] ED. Medications reconciled at end of visit: yes I spent 30 minutes in this visit, with more than 50% of the time devoted to patient counseling. SIGNATURE: Shay Teresa APRN.CNP PATIENT NAME: Vishal George DATE: July 12, 2023 TIME: 1201 documented in this encounterCincinnati [facility]08-25-2023 NoteHNO ID: [id number] Author: Shay Teresa APRN.CNP Service: ? Author Type: Nurse Practitioner Type: Progress Notes Filed: 06/07/2023 12:42 PM Note Text: [facility] [place] [facility] OUTPATIENT VISIT DATE June [...] of ventricular tachycardia. She was transferred to [facility] for possible ICD placement. Electrophysiology [...] able. She states she has a primary stitcher feeder at [place] in which she had an echocardiogram that she says ejection fraction was still at 15%. No results are in [facility] as the are from outside hospital. [...] once GDMT is optimized -repeat echo in [place] shows 15% Per the patient- no outside records present during visit 3. Hyperlipidemia, unspecified hyperlipidemia type - ICD9: 272.4, ICD10: E78.5 -continue statin therapy 4. Primary hypertension - ICD9: 401.9, ICD10: I10 -BP suboptimal during visit mmHg -encourage DASH/low sodium diet -encourage exercise with rest breaks as needed -goal BP <130/80 mmHg -continue home BP monitoring 5. 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 - ICD9: 414.01, [...] Procedure Laterality Date CATARACT (more content not included)...[id number] Miscellaneous Notes* Telephone Encounter - Melissa Koorma APRN.CNP - 03/25/2023 10:16 AM EDT I spoke with [facility] regarding the denial of the [facility], she does not meet [facility]'s criteria for the Life[facility], as an ICD would need to be indicated for the Lifevest to be covered, currently ICD not indicated until after 90 days of GDMT. Unfortunately, the Lifevest has been declined. Melissa Koroma APRN.CNP documented in this encounterCincinnati [facility]05-25-2023 NoteHNO ID: [id number] Author: Shay Teresa APRN.CNP Service: ? Author Type: Nurse Practitioner Type: Progress Notes Filed: 03/07/2023 11:18 AM Note Text: [facility] [place] [facility] OUTPATIENT VISIT DATE March 07, 2023 OUTPATIENT VISIT TYPE NEW PRIMARY CARE PHYSICIAN: TRUDY Rendon, STONEMASON SUPERVISOR REFERRING PHYSICIAN: No referring provider defined for [...] of ventricular tachycardia. She was transferred to [facility] for possible ICD placement. Electrophysiology [...] BP monitoring 5. 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 - ICD9: 414.01, ICD10: I25.10 -stable -s/p [facility] on 02/25 -on aspirin and BB Follow up appointment with Cardiology in Dr. Moe Washington to be scheduled. PAST MEDICAL HISTORY Diagnosis Date Cataract of left eye COPD (chronic obstructive pulmonary disease) (HCC) Dilated cardiomyopa (more content not included)...[facility] [id number] Note HNO ID: [id number] Author: Carlo Gallardo Service: ? Author Type: ? Type: Plan of Care Filed: 03/01/2023 4:14 PM Note Text: PHARMACY BEDSIDE DELIVERY SERVICE Patient Name: Vishal George The marked outpatient medications were Filled at: [facility] and delivered to the patient's bedside to [...] per tablet Carlo Gallardo PAGER: Carlo Gallardo ([facility]) [phone] March 01, 2023 4:12 [facility]05-19-2023 NoteHNO ID: [id number] Author: Oly Guzmán DO Service: Hospital Medicine [...] assessment, plan, and treatment Other, please specify [facility] 02-28-2023 NoteHNO ID: [id number] Author: Oly Gzumán DO Service: Hospital Medicine Author Type: Physician Type: Progress Notes Filed: 02/28/2023 4:41 PM Note Text: DEPARTMENT OF HOSPITAL MEDICINE PROGRESS NOTE SERVICE DATE: 02/28/2023 SERVICE TIME: 4:29 PM Hospital Medicine/Primary Attending: Oly Guzmán DO NIGHT AND WEEKEND COVERAGE: [place] COVERAGE: After 7pm, please call cross cover pager #[phone] Subjective She denies current chest pain, lightheadedness, syncope, shortness of breath, nausea or vomiting INTERVAL HPI: This is a 62-year-old female with known congestive heart failure systolic and diastolic, CAD status post stent who presented to [facility] a few days ago for severe [...] with a plan to transition her to [facility]. The patient was a planned to be discharged from [place], but then she had a 34 run of V. tach/wide-complex tachycardia so decision was to transfer her to [facility] for ICD evaluation as that [...] telemetry Active Problems: Coronary artery disease involving tangirnaq coronary artery POA: Yes Assessment AND Plan: [...] -- 02/26/23 1645 activity - mobilize patient (tx,co) VTE Prophylaxis:On hold pending need for EP procedure Disposition: To be determined Plan of care discussed with: Provider, RN, Patient SIGNATURE: Oly Guzmán DO PATIENT NAME: Vishal George DATE: February 28, 2023 TIME: 4:29 PM etx [id number]05-17-2023 NoteHNO ID: [id number] Author: Oly Guzmán DO Service: Hospital Medicine Author Type: Physician Type: Progress Notes Filed: 02/27/2023 2:21 PM Note Text: DEPARTMENT OF HOSPITAL MEDICINE PROGRESS NOTE SERVICE DATE: 02/27/2023 SERVICE TIME: 2:09 PM Hospital Medicine/Primary Attending: Oly Guzmán DO NIGHT AND WEEKEND COVERAGE: [place] COVERAGE: After 7pm, please call cross cover pager #[phone] Subjective She denies current chest pain, lightheadedness, syncope, shortness of breath, nausea or vomiting INTERVAL HPI: This is a 62-year-old female with known congestive heart failure systolic and diastolic, CAD status post stent who presented to [facility] a few days ago for severe [...] with a plan to transition her to [facility]. The patient was a planned to be discharged from [place], but then she had a 34 run of V. tach/wide-complex tachycardia so decision was to transfer her to [facility] for ICD evaluation as that [...] telemetry Active Problems: Coronary artery disease involving tangirnaq coronary artery POA: Yes Assessment AND Plan: [...] -- 02/26/23 1645 activity - mobilize patient (tx,co) VTE Prophylaxis:On hold pending need for EP procedure Disposition: To be determined Plan of care discussed with: Provider, RN, Patient SIGNATURE: Oly Guzmán DO PATIENT NAME: Vishal George DATE: February 27, 2023 TIME: 2:09 PM etx [id number]12-[facility]-20[facility] HCoV 229E RNA FERCHO+non-probe Ql (Nph)Not Detected *NA* (09/21/22 5:46 PM)AH Auto Viro/Sero [id number] History of Present illness Narrative* Jackie Schneider [...] - ENDOSCOPY NAME: Vishal George CLINIC NO.: [id number] DATE OF SERVICE: 09/07/2022 : 1960 REFERRING PHYSICIAN: Ricki Griffin, POWDER ROOM ATTENDANT, STONEMASON SUPERVISOR Vishal is a patient I am following [...] which included preparing to see the patient, [id number] patient care, completing clinical documentation, obtaining and/or reviewing separately obtained history, counseling and educating the patient/family/caregiver, ordering medications, namrata ts, or procedures, independently interpreting results (not separately reported), and communicating results to the patient/family/caregiver. Jackie Schneider PA-C documented in this encounterCincinnati [facility]11-02-2022 Miscellaneous Notes* Letter - Mammography Coordinator - 08/15/2022 11:32 AM EDT August 15, 2022 PID: [id number] Vishal George [address] [place] [address] Dear Ms. George, We are pleased to [...] report will be kept on file at [facility] as part of your permanent medical record and are available for your continuing care. Thank you for allowing us to help in meeting your health care needs. Sincerely, Dr. Kate Interpreting Radiologist [facility] (Normal over 40) documented in this encounterCincinnati Children'S [facility] Center11-01-2022 History of Present illness Narrative* Aracelis Lozoya MD - 08/14/2022 8:42 AM EDT Vishal is a 62 year old who presents for an annual gynecologic exam without complaints. Working at [employer]. Admits to drinking 42 can of beer [...] L2 SAB1 IAB0 Ectopic0 Multiple0 Live Births0 Manager Radiation History LMP: 07/21/2012, Postmenopausal Age at Menarche: Age at First : Age at Menopause: Manager Radiation History Comments: Sexual Activity: Yes; Male Contraception: [...] external genitalia normal, normal Bartholin's glands, urethra, [place]'s glands, no vulvar lesions, no cervical lesions, [...] declines at this time. Aracelis Yoder MD Alumni Relations Officer offered: Patient declines. documented in this encounterCincinnati Children'[facility] Center10-27-2022 Nurse Note* Leslie Hendrix RN - 08/09/2022 11:48 AM EDT Patient arrived laying on left side. States she is not in any pain at this time. Patient's abdomen appears to be nondistended and soft to palpation. Patient encouraged to belch or pass gas. documented in this encounterCincinnati Children'S Hospital Medical Center10-27-2022 History and physical note * Sony Cedeño MD - 08/09/2022 11:30 AM EDT Images from the original note were not included. HISTORY AND PHYSICAL Vishal Alonzo Ariel 1960 REFERRING PHYSICIAN: TRUDY Rendon, MELODY CHIEF COMPLAINT: Follow Up ([facility] ER 07/12/22) HPI: The patient is [...] the request of Dr. Ricki Griffin, TRUDY, STONEMASON SUPERVISOR for my opinion and advice regarding Epigastric [...] entered by the nurse and reviewed by nd Nursing Notes: Alix Gil LPN 07/17/2022 2:57 [...] letter was sent to Dr. Ricki Griffin, POWDER ROOM ATTENDANT, STONEMASON SUPERVISOR indicating the above finding for this patient. [...] 2022 TIME: 10:43 AM documented in this encounterCincinnati Children'S [facility] Center10-20-2022 Miscellaneous Notes* Telephone Encounter - Halima Milton [...] instructed to call for more help. Halima Milton, RN documented in this encounterCincinnati Children'S [facility] Center10-04-2022 History of Present illness Narrative* Sony Cedeño MD - 07/17/2022 3:08 PM EDT HISTORY AND PHYSICAL Vishal Formaners 1960 REFERRING PHYSICIAN: TRUDY Rendon, STONEMASON SUPERVISOR CHIEF COMPLAINT: Follow Up ([facility] ER 07/12/22) HPI: The patient is [...] at the request of Dr. Ricki Griffin, POWDER ROOM ATTENDANT, STONEMASON SUPERVISOR for my opinion and advice regarding Epigastric [...] and reviewed by me Nursing Notes: Alix GilAUTUMN 07/17/2022 2:57 PM Signed REVIEW OF SYSTEMS: [...] letter was sent to Dr. Ricki Griffin, POWDER ROOM ATTENDANT, STONEMASON SUPERVISOR indicating the above finding for this patient. [...] Sony Cedeño III, MD documented in this encounterCincinnati Children'S [facility] Center10-04-2022 Nurse Note* Alix Gil, BUTTON INSPECTOR - 07/17/2022 2:50 PM EDT REVIEW OF [...] 2015 Alix Gil LPN documented in this encounterCincinnati Children'S [facility] Center11-28-2012 History of Past illness Narrative* Problem Noted Date Resolved Date Unspecified essential hypertension 09/10/2012 08/29/2016 PMDD (premenstrual dysphoric disorder) 2 07/06/2015 Perimenopausal 09/10/2012 07/06/2015 documented as of this encounter (statuses as of 07/17/2022) [facility]11-28-2012 History of Past illness Narrative* Problem Noted Date Resolved Date Unspecified essential hypertension 09/10/2012 08/29/2016 PMDD (premenstrual dysphoric disorder) 2 07/06/2015 Perimenopausal 09/10/2012 07/06/2015 documented as of this encounter (statuses as of 08/14/2022) [facility] History of Past illness Narrative* Problem Noted Date Resolved Date Unspecified essential hypertension 09/10/2012 08/29/2016 PMDD (premenstrual dysphoric disorder) 2 07/06/2015 Perimenopausal 09/10/2012 07/06/2015 documented as of this encounter (statuses as of 08/15/2022) [address]28-2012 History of Past illness Narrative* Problem Noted Date Resolved Date Unspecified essential hypertension 09/10/2012 08/29/2016 PMDD (premenstrual dysphoric disorder) 2 07/06/2015 Perimenopausal 09/10/2012 07/06/2015 documented as of this encounter (statuses as of 08/17/2022) [address]28-2012 History of Past illness Narrative* Problem Noted Date Resolved Date Unspecified essential hypertension 09/10/2012 08/29/2016 PMDD (premenstrual dysphoric disorder) 2 07/06/2015 Perimenopausal 09/10/2012 07/06/2015 documented as of this encounter (statuses as of 09/07/2022) [address]28-2012 History of Past illness Narrative* Problem Noted Date Resolved Date Unspecified essential hypertension 09/10/2012 08/29/2016 PMDD (premenstrual dysphoric disorder) 2 07/06/2015 Perimenopausal 09/10/2012 07/06/2015 documented as of this encounter (statuses as of 03/25/2023) [address]28-2012 History of Past illness Narrative* Problem Noted Date Diagnosed Date Resolved Date Unspecified essential hypertension 09/10/2012 08/29/2016 PMDD (premenstrual dysphoric disorder) 09/10/2012 07/06/2015 Perimenopausal 09/10/2012 07/06/2015 documented as of this encounter (statuses as of 07/12/2023) [address]28-2012 History of Past illness Narrative* Problem Noted Date Diagnosed Date Resolved Date Unspecified essential hypertension 09/10/2012 08/29/2016 PMDD (premenstrual dysphoric disorder) 09/10/2012 07/06/2015 Perimenopausal 09/10/2012 07/06/2015 documented as of this encounter (statuses as of 08/18/2023) [address]28-2012 History of Past illness Narrative* Problem Noted Date Diagnosed Date Resolved Date Unspecified essential hypertension 09/10/2012 08/29/2016 PMDD (premenstrual dysphoric disorder) 09/10/2012 07/06/2015 Perimenopausal 09/10/2012 07/06/2015 documented as of this encounter (statuses as of 08/18/2023) [facility] History of Past illness Narrative* Problem Noted Date Diagnosed Date Resolved Date Unspecified essential hypertension 09/10/2012 08/29/2016 PMDD (premenstrual dysphoric disorder) 09/10/2012 07/06/2015 Perimenopausal 09/10/2012 07/06/2015 documented as of this encounter (statuses as of 08/31/2023) [facility] History of Past illness Narrative* Problem Noted Date Diagnosed Date Resolved Date Unspecified essential hypertension 09/10/2012 08/29/2016 PMDD (premenstrual dysphoric disorder) 09/10/2012 07/06/2015 Perimenopausal 09/10/2012 07/06/2015 documented as of this encounter (statuses as of 12/27/2023) [facility] CenterEvaluation [facility] Plan note Future Appointments Appointment Date:09/28/2022 03:20:00 PM Scheduled Provider:RICKI GRIFFIN APRN [employer] STONEMASON SUPERVISOR Location:[facility] [place] Appointment Type:[facility] Evaluation + Plan note Future Appointments Appointment Date:06/11/2025 02:20:00 PM Scheduled Provider:RICKI GRIFFIN APRN [employer] Location:[facility] [place] Appointment Type: OV Follow Up Future Scheduled Tests Laboratory* C-Reactive Protein 03/01/25 * Helicobacter Pylori Antibody 04/29/25 * Lipase Level 04/29/25 * A1C Hemoglobin 12/06/24 * A1C Hemoglobin 06/10/25 * Complete Blood Count 03/01/25 * Complete Blood Count 06/10/25 * Complete Blood Count 04/29/25 * Lipid Profile 12/06/24 * Lipid Profile 06/10/25 * Albumin/Creatinine Ratio, Random Urine 12/06/24 * Albumin/Creatinine Ratio, Random Urine 06/10/25 * Vitamin D Level 12/06/24 * Vitamin D Level 06/10/25 * Complete Metabolic Panel 03/01/25 * Complete Metabolic Panel 12/06/24 * Complete Metabolic Panel 06/10/25 * Complete Metabolic Panel 04/29/25 Radiology* CT Low Dose Lung Cancer Screening (LDCT) 06/05/24 * XR Chest 2 Views (PA & Lateral) 03/01/25 [facility] Evaluation noteNo assessment information available Work Phone: evaluation note* Diagnosis Epigastric pain- Primary Abdominal pain, epigastric Nausea and vomiting, unspecified vomiting type documented in this encounter [facility] note* Diagnosis Encounter for gynecological examination (general) (routine) without abnormal findings- Primary Encounter for screening mammogram for malignant neoplasm of breast Other screening mammogram Screening for osteoporosis Special screening for osteoporosis documented [facility] encounter [facility]* Diagnosis Other gastritis without bleeding- Primary documented in this encounter [facility] note* Diagnosis Onset Date Resolution Status 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 Dilated cardiomyopathy acute Heart failure with reduced ejection fraction acute Hypoxia acute Nausea & vomiting acute Pneumonia acute Sepsis acute Work Phone: evaluation note* Diagnosis Onset Date Resolution Status 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 Coronary artery disease acut e Dyslipidemia acute Hypoxia acute Nausea & vomiting acute V-tach acute Acute on chronic combined sy stolic and diastolic heart failure chronic HTN (hypertension) chronic Work Phone: evaluation note* Diagnosis Onset Date Resolution Status V-tach acute Acute on chronic combined sy stolic and diastolic heart failure resolved Hypoxia resolved Nausea & vomiting resolved Epigastric pain chronic Work Phone: Evaluation note* Diagnosis Onset Date Resolution Status 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 Acute on chronic combined sy stolic and diastolic heart failure resolved Hypoxia resolved Nausea & vomiting resolved Essential hypertension acute Hyperlipidemia acute Ischemic cardiomyopathy acut e Nonsustained ventricular tachycardia acute 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 Stented coronary artery February 25, 2023 [facility] Work Phone: Evaluation note* Diagnosis Chronic systolic heart failure (HCC)- Primary Chronic systolic heart failure Primary hypertension Unspecified essential hypertension 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 Hyperlipidemia, unspecified hyperlipidemia type Ischemic cardiomyopathy Other specified forms of chronic ischemic heart disease documented in this encounter [facility] note* Diagnosis Epigastric pain- Primary Abdominal pain, epigastric Nausea and vomiting, unspecified vomiting type documented in this encounter [facility] note* Diagnosis Encounter for screening mammogram for malignant neoplasm of breast Other screening mammogram documented in this encounter [facility] note* Diagnosis Onset Date Resolution Status Essential hypertension acute Hyperlipidemia acute Ischemic cardiomyopathy acut e Nonsustained ventricular tachycardia acute 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 Stented coronary artery February 25, 2023 [facility] Essential hypertension acute Hyperlipidemia acute Ischemic cardiomyopathy acut e Nonsustained ventricular tachycardia acute 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 Stented coronary artery February 25, 2023 [facility] Work Phone: Evaluation note* Diagnosis Onset Date Resolution Status Essential hypertension acute Hyperlipidemia acute Ischemic cardiomyopathy acut e Nonsustained ventricular tachycardia acute 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 Stented coronary artery February 25, 2023 [facility] Work Phone: Evaluation note* Diagnosis Chronic systolic heart failure (HCC)- Primary Chronic systolic heart failure Primary hypertension Unspecified essential hypertension 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 Hyperlipidemia, unspecified hyperlipidemia type Ischemic cardiomyopathy Other specified forms of chronic ischemic heart disease documented in this encounter [facility] note* Diagnosis Encounter for screening mammogram for malignant neoplasm of breast Other screening mammogram documented in this encounter [facility] note* Diagnosis Encounter for gynecological examination (general) (routine) without abnormal findings- Primary Encounter for screening for human papillomavirus (HPV) Special screening examination for human papillomavirus (HPV) Pap smear for cervical cancer screening Screening for malignant neoplasm of the cervix Encounter for screening mammogram for breast cancer Encounter for screening for osteoporosis Special screening for osteoporosis Asymptomatic postmenopausal status documented in this encounter [facility] note* Diagnosis Encounter for screening for osteoporosis Special screening for osteoporosis Asymptomatic postmenopausal status documented in this encounter [facility] course Narrative No data available for this section [facility] Hospital Discharge instructions No data available for this section [facility] Progress note No data available for this section [facility] Reason for referral (narrative)* Outpatient Procedure (Routine) - Authorized Specialty Diagnoses / Procedures Referred By Dayan t Referred To Contact [facility] Diagnoses Epigastric pain Nausea and vomiting, unspecified vomiting type Procedures EGD DIAGNOSTIC ESOPHAGOGASTRODUODENOSC OPY TRANSORAL DIAGNOSTIC Sony Cedeño MD [address] [place] [address] [facility] [address] [place] [address] Referral ID Status Reason Start Date Expiration Date Visits Requested Visits Authorized [id number] Authorized Auto-Generat ed Referral 07/17/2022 07/17/2023 1 1 [facility] for referral (narrative)* Outpatient Procedure (Routine) - Closed Specialty Diagnoses / Procedures Referred By Dayan t Referred To Contact [facility] [place] Diagnoses Epigastric pain Nausea and vomiting, unspecified vomiting type Procedures EGD DIAGNOSTIC ESOPHAGOGASTRODUODENOSC OPY TRANSORAL DIAGNOSTIC Sony Cedeño MD [address] [place] [address] [facility] [address] [place] [id number] Referral ID Status Reason Start Date Expiration Date V isits Requested Visits Authorized [id number] Closed Auto-Generate d Referral 07/17/2022 07/17/2023 1 1 [facility] for referral (narrative)* Diagnostic Procedure Only (Routine) - Closed Specialty Diagnoses / Procedures [facility]erred To Contact [facility] Diagnoses Encounter for screening mammogram for malignant neoplasm of breast Procedures JON SCREENING W JOSHUA SCREENING DIGITAL BREAST TOMOSYNTHESIS BI SCREENING MAMMOGRAPHY BI 2-VIEW BREAST INC CAD Aracelis Mccormick MD [address] [place] [address] [facility] [address] [place] [address] Referral ID Status Reason Start Date Expiration Date V isits Requested Visits Authorized [id number] Closed Auto-Generate d Referral 09/14/2024 10/14/2025 1 1 [facility] for referral (narrative)* Diagnostic Procedure Only (Routine) - Authorized Specialty Diagnoses / Procedures Referred By Dayan woods Referred To Contact [facility] Diagnoses Encounter for screening for osteoporosis Asymptomatic postmenopausal status Procedures DXA-AXIAL SKELETON DXA BONE DENSITY STUDY 1/ SITES AXIAL SKEL Aracelis Mccormick MD [address] [place] [address] [place] [id number] Referral ID Status Reason Start Date Expiration Date Visits Requested Visits Authorized [id number] Authorized Auto-Generat ed Referral 09/21/2024 10/21/2025 1 1 * Diagnostic Procedure Only (Routine) - Authorized Specialty Diagnoses / Procedures Referred By Dayan woods Referred To Contact [facility] Diagnoses Encounter for screening mammogram for breast cancer Procedures JON SCREENING W JOSHUA SCREENING DIGITAL BREAST TOMOSYNTHESIS BI SCREENING MAMMOGRAPHY BI 2-VIEW BREAST INC CAD Aracelis Mccormick MD [address] [place] [address] [facility] [address] [place] [address] Referral ID Status Reason Start Date Expiration Date Visits Requested Visits Authorized [id number] Authorized Auto-Generat ed Referral 09/21/2024 10/21/2025 1 1 [facility] for referral (narrative)No reason for [facility] Phone: Reason for visit Narrative* Outpatient Procedure (Routine) - Closed Specialty Diagnoses / Procedures Referred By Dayan woods Referred To Contact [facility] Diagnoses Epigastric pain Nausea and vomiting, unspecified vomiting type Procedures EGD DIAGNOSTIC ESOPHAGOGASTRODUODENOSC OPY TRANSORAL DIAGNOSTIC Sony Cedeño MD [address] [place] [address] [facility] [address] [place] [address] Referral ID Status Reason Start Date Expiration Date V isits Requested Visits Authorized [id number] Closed Auto-Generate d Referral 07/17/2022 07/17/2023 1 1 [facility] for visit Narrative* Diagnostic Procedure Only (Routine) - Closed Specialty Diagnoses / Procedures Referred By Dayan woods Referred To Contact [facility] Diagnoses Encounter for screening mammogram for malignant neoplasm of breast Procedures JON SCREENING W JOSHUA SCREENING DIGITAL BREAST TOMOSYNTHESIS BI SCREENING MAMMOGRAPHY BI 2-VIEW BREAST INC CAD Aracelis Mccormick MD [address] [place] [address] [facility] [address] [place] [address] Referral ID Status Reason Start Date Expiration Date V isits Requested Visits Authorized [id number] Closed Auto-Generate d Referral 08/14/2022 09/13/2023 1 1 [facility] for visit Narrative* Diagnostic Procedure Only (Routine) - Closed Specialty Diagnoses / Procedures Referred By Dayan woods Referred To Contact [facility] Diagnoses Encounter for screening mammogram for malignant neoplasm of breast Procedures JON SCREENING W JOSHUA SCREENING DIGITAL BREAST TOMOSYNTHESIS BI SCREENING MAMMOGRAPHY BI 2-VIEW BREAST INC CAD Aracelis Mccormick MD [address] [place] [address] [facility] [address] [place] [address] Referral ID Status Reason Start Date Expiration Date V isits Requested Visits Authorized [id number] Closed Auto-Generate d Referral 09/14/2024 10/14/2025 1 1 [facility] for visit Narrative* Diagnostic Procedure Only (Routine) - Closed Specialty Diagnoses / Procedures Referred By Dayan woods Referred To Contact [facility] Diagnoses Encounter for screening for osteoporosis Asymptomatic postmenopausal status Procedures DXA-AXIAL SKELETON DXA BONE DENSITY STUDY 1/> SITES AXIAL SKEL Aracelis Mccormick MD [address] [place] [address] [place] [id number] Referral ID Status Reason Start Date Expiration Date V isits Requested Visits Authorized [id number] Closed Auto-Generate d Referral 09/21/2024 10/21/2025 1 1 [facility] Chief Complaint and Reason for Visit Chief [...] PCI w/coronary stenting H FU Amb Documentation AGTX 03/29 NEEDS PRIOR TO 02/26 FOR MED. [...] Amb Documentation March 30, 2025 12:2 1pm Chief Complaint Admit Date 6 M FU January 06, 2025 3:4 0pm PRESENCE OF CORONARY ANGIOPLASTY IMPLANT AND GRAFT March 29, 2025 12:34pm Amb Documentation March 30, 2025 12:2 1pm Nausea with vomiting, unspecified April 132024 6:54am SPEC. May 01, 2025 9:40 am Family History No Family History Records Found [...] April 20, 2021 9 :23pm Power of Biomass Boiler Operator No April 20, 2021 9:23pm Advance Directive Response Recorded Date/ Time Advance Directives No September 10:47am Living Will No July 12, 2022 11:49am Power of Biomass Boiler Operator No June 11:49am Advance Directive Response Recorded Date/ Time Advance Directives No September 9:47am Living Will No July 14 5:26pm Power of Biomass Boiler Operator No July 14 5:26pm Advance Directive Response Recorded Date/ Time Advance Directives No September 10:47am Living Will No February 22, 2023 8 :34am Power of Biomass Boiler Operator No February 22, 2023 8:34am Advance Directive Response Recorded Date/ Time Advance Directives No September 10:47am Living Will No February 22, 2023 4 :58pm Power of Biomass Boiler Operator No February 22, 2023 4:58pm Advance Directive Response Recorded Date/ Time Advance Directives No September 10:47am Living Will No February 22, 2023 9 :38pm Power of Biomass Boiler Operator No February 22, 2023 9:38pm Advance Directive Response Recorded Date/ Time Advance Directives on File No February 132022 8:44am Advance Directives No September 10:47am Living Will No March 13, 2023 8 :44am Power of Biomass Boiler Operator No March 13, 2023 8:44am Latest Code Status on File Code Status Date Activated Date Inactivated Comments Full Code 02/26/2023 4:37 PM 03/01/2023 8:19 PM Full Code Order Discussed With: Patient Advance Directive Response Recorded Date/ Time Advance Directives on File No February 132022 8:44am Advance Directives No September 10:47am Living Will No April 24, 2023 2:26pm Power of Biomass Boiler Operator No April 24 2:26pm Latest Code Status [...] No April 24, 2023 1:26pm Power of Biomass Boiler Operator No April 24 1:26pm Date Activated Date [...] Do you have a Healthcare Power of Biomass Boiler Operator? No April 24, 2023 2:26pm Advance Directives No September 10:47am Summary Purpose Medications Administered Section Inactive Administered Medications - up to 3 most recent administrations Medication Order MAR Action Action Date Dose Rate Site benzocaine 20% 1 [place] (TOPEX) 1 [place], TOPICAL, DIRECTED, Starting on Corrina 08/09/22 at 1200, Until [place] 08/09/22 at 1559, DOSING DIRECTED BY PHYSICIAN FOR PROCEDURAL SEDATION ONLY - Pharmaceutical Waste: Aerosol -, Intraprocedure Given 08/09/2022 11:30 AM EDT 1 [place] diphenhydrAMINE 12.5-50 mg injection (BENADRYL) 12.5-50 mg, [...] alternate section No data available for this section Source Comments (unrecognize d section and content) In the event this informatio n is protected by the Federal Confidentiality of Alcohol and Drug Abuse Patient Records regulations: The Federal rules restrict any use of the information to criminally investigate or prosecute any alcohol or drug abuse patient.[facility] the event this information is protected by the Federal Confidentiality of Alcohol and Drug Abuse Patient Records regulations: The Federal rules restrict any use of the information to criminally investigate or prosecute any alcohol or drug abuse patient.[facility] CenterIn the event this information is protected by the Federal Confidentiality of Alcohol and Drug Abuse Patient Records regulations: The Federal rules restrict any use of the information to criminally investigate or prosecute any alcohol or drug abuse patient.[facility] CenterIn the event this information is protected by the Federal Confidentiality of Alcohol and Drug Abuse Patient Records regulations: The Federal rules restrict any use of the information to criminally investigate or prosecute any alcohol or drug abuse patient.[facility] CenterIn the event this information is protected by the Federal Confidentiality of Alcohol and Drug Abuse Patient Records regulations: The Federal rules restrict any use of the information to criminally investigate or prosecute any alcohol or drug abuse patient.[facility] CenterIn the event this information is protected by the Federal Confidentiality of Alcohol and Drug Abuse Patient Records regulations: The Federal rules restrict any use of the information to criminally investigate or prosecute any alcohol or drug abuse patient.[facility] CenterIn the event this information is protected by the Federal Confidentiality of Alcohol and Drug Abuse Patient Records regulations: The Federal rules restrict any use of the information to criminally investigate or prosecute any alcohol or drug abuse patient.[facility] CenterIn the event this information is protected by the Federal Confidentiality of Alcohol and Drug Abuse Patient Records regulations: The Federal rules restrict any use of the information to criminally investigate or prosecute any alcohol or drug abuse patient.[facility] CenterIn the event this information is protected by the Federal Confidentiality of Alcohol and Drug Abuse Patient Records regulations: The Federal rules restrict any use of the information to criminally investigate or prosecute any alcohol or drug abuse patient.[facility] CenterIn the event this information is protected by the Federal Confidentiality of Alcohol and Drug Abuse Patient Records regulations: The Federal rules restrict any use of the information to criminally investigate or prosecute any alcohol or drug abuse patient.[facility] CenterIn the event this information is protected by the Federal Confidentiality of Alcohol and Drug Abuse Patient Records regulations: The Federal rules restrict any use of the information to criminally investigate or prosecute any alcohol or drug abuse patient.[facility] CenterIn the event this information is protected by the Federal Confidentiality of Alcohol and Drug Abuse Patient Records regulations: The Federal rules restrict any use of the information to criminally investigate or prosecute any alcohol or drug abuse patient.[facility] CenterIn the event this information is protected by the Federal Confidentiality of Alcohol and Drug Abuse Patient Records regulations: The Federal rules restrict any use of the information to criminally investigate or prosecute any alcohol or drug abuse patient.[facility] CenterIn the event this information is protected by the Federal Confidentiality of Alcohol and Drug Abuse Patient Records regulations: The Federal rules restrict any use of the information to criminally investigate or prosecute any alcohol or drug abuse patient.[facility] CenterIn the event this information is protected by the Federal Confidentiality of Alcohol and Drug Abuse Patient Records regulations: The Federal rules restrict any use of the information to criminally investigate or prosecute any alcohol or drug abuse patient.[facility] CenterIn the event this information is protected by the Federal Confidentiality of Alcohol and Drug Abuse Patient Records regulations: The Federal rules restrict any use of the information to criminally investigate or prosecute any alcohol or drug abuse patient.[facility] Reason for Visit (unrecogniz ed section and content) Reason Comments Follow Up [facility] 07/12/22 Reason Comments Yearly Exam Reason Comments Patient Question Reason Comments 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 Comments Breathing Problem Reason Comments Breathing Problem CHF Reason Comments Yearly Exam Reason Comments Results Care Teams (unrecognized sec tion and content) Ignition Specialist Relationship Specialty Start Date End Date Ricki Griffin, STONEMASON SUPERVISOR [address] [place] [address] PCP - General Family Medicine 08/08/16 Ignition Specialist Relationship Specialty Start Date End Date Ricki Griffin, STONEMASON SUPERVISOR [address] [place] [address] PCP - General Family Medicine 08/08/16 Ignition Specialist Relationship Specialty Start Date End Date Ricki Griffin, STONEMASON SUPERVISOR [address] [place] [address] PCP - General Family Medicine 08/08/16 Ignition Specialist Relationship Specialty Start Date End Date Ricki Griffin, STONEMASON SUPERVISOR [address] [place] [address] PCP - General Family Medicine 08/08/16 Ignition Specialist Relationship Specialty Start Date End Date Ricki Griffin, STONEMASON SUPERVISOR [address] [place] [address] PCP - General Family Medicine 08/08/16 Team Status: Active Member Role Status Dates Ricki Griffin COTTON CLEANER, COTTON CLEANER-C Family Provider Activ e Ricki Griffin COTTON CLEANER, COTTON CLEANER-C Primary Care Provider Active Team Status: Inactive Member Role Status Dates Ricki Griffin COTTON CLEANER, COTTON CLEANER-C Primary Care Provider Active Dr. Edmundo Monae , DO Attending Provider, Emergency P gerhard Active Team Status: Inactive Member Role Status Dates Ricki Griffin COTTON CLEANER, COTTON CLEANER-C Primary Care Provider Active Dr. Aleksandar Rain MD Attending Provider, Emergency Pro vider Active Team Status: Inactive Member Role Status Dates Ricki Griffin COTTON CLEANER, COTTON CLEANER-C Primary Care Provider, Attending Provider, Referring Provider Active Team Status: Active Member Role Status Dates Ricki Griffin COTTON CLEANER, COTTON CLEANER-C Primary Care Provider Active Dr. Jose Antonio Reeves MD Attending Provider Active Team Status: Active Member Role Status Dates Ricki Griffin COTTON CLEANER, COTTON CLEANER-C Primary Care Provider, Attending Provider, Referring Provider Active Team Status: Inactive Member Role Status Dates Ricki Griffin COTTON CLEANER, COTTON CLEANER-C Primary Care Provider Active Dr. Arcadio Koehler MD Emergency Provider Active Team Status: Active Member Role Status Dates Ricki Griffin COTTON CLEANER, COTTON CLEANER-C Primary Care Provider Active Dr. Dinesh Burris DO Emergency Provider Active Dr. Julio César Arndt MD Admit Provider, Attending Pro vider Active Team Status: Active Member Role Status Dates Ricki Griffin COTTON CLEANER, COTTON CLEANER-C Primary Care Provider Active Dr. Dinesh Burris DO Emergency Provider Active Dr. Julio César Arndt MD Admit Provider, Other Provide r Active Dr. Zulma Brunner , Other Provider Active Dr. Rohan Awan MD Attending Provider, Othe r Provider Active Dr. Kt Romero , DO Other Provider Active Team Status: Active Member Role Status Dates Ricki Griffin COTTON CLEANER, COTTON CLEANER-C Primary Care Provider Active Dr. Dinesh Burris , DO Emergency Provider Active Dr. Julio César Arndt MD Admit Provider, Other Provide r Active Dr. Zulma Brunner , DO Attending Provider, Other Provide r Active Dr. Rohan Awan MD Other Provider Active Dr. Kt Romero , DO Other Provider Active Team Status: Active Member Role Status Dates Ricki Griffin COTTON CLEANER, COTTON CLEANER-C Primary Care Provider Active Dr. Dinesh Burris , DO Emergency Provider Active Dr. Julio César Arndt MD Admit Provider, Other Provide r Active Dr. Zulma Brunner , DO Other Provider Active Dr. Rohan Awan MD Other Provider Active Dr. Kt Romero , DO Other Provider Active Dr. Jose Antonio Reeves MD Attending Provider Active Team Status: Active Member Role Status Dates Ricki Griffin COTTON CLEANER, COTTON CLEANER-C Primary Care Provider Active Dr. Dinesh Burris , DO Emergency Provider Active Dr. Julio César Arndt MD Admit Provider, Other Provide r Active Dr. Zulma Brunner , DO Other Provider Active Dr. Rohan Awan MD Other Provider Active Dr. Kt Romero , DO Attending Provider, Other Prov ider Active Team Status: Active Member Role Status Dates Ricki Griffin COTTON CLEANER, COTTON CLEANER-C Primary Care Provider Active Dr. Dinesh Burris , DO Emergency Provider Active Dr. Julio César Arndt MD Admit Provider, Other Provide r Active Dr. Zulma Brunner , DO Attending Provider Active Dr. Rohan Awan MD Other Provider Active Dr. Kt Romero , DO Other Provider Active Team Status: Active Member Role Status Dates Ricki Griffin COTTON CLEANER, COTTON CLEANER-C Primary Care Provider Active Dr. Dinesh Burris [...] Inactive Member Role Status Dates Ricki Griffin COTTON CLEANER, COTTON CLEANER-C Primary Care Provider, Referring Provider Active Dr. Kt Romero , DO Attending Provider Active Team Status: Inactive Member Role Status Dates Ricki Griffin COTTON CLEANER, COTTON CLEANER-C Primary Care Provider Active Dr. Arcadio Koehler MD Attending Provider, Emergency Provider Active Team Status: Inactive Member Role Status Dates Ricki Griffin COTTON CLEANER, COTTON CLEANER-C Primary Care Provider Active Dr. Dinesh Burris , Emergency Provider Active Dr. Julio César Arndt MD Admit Provider, Other Provide r Active Dr. Zulma Brunner DO Attending Provider Active Dr. Rohan Awan MD Other Provider Active Dr. Kt Romero , DO Other Provider Active Team Status: Inactive Member Role Status Dates Ricki Griffin COTTON CLEANER, COTTON CLEANER-C Primary Care Provider Active Dr. Jose Antonio Reeves MD Attending Provider, Referring Pro vider Active Ignition Specialist Relationship Specialty Start Date End Date Ricki Griffin, STONEMASON SUPERVISOR [address] [place] [address] PCP - General Family Medicine 08/08/16 Team Status: Active Member Role Status Dates Ricki Griffin COTTON CLEANER, COTTON CLEANER-C Primary Care Provider Active Dr. Dinesh Burris , Emergency Provider Active Dr. Julio César Arndt MD Admit Provider, Other Provide r Active Dr. Zulma Brunner , Referring Provider, Other Provide r Active Dr. Rohan Awan MD Other Provider Active Dr. Kt Romero , Attending Provider, Other Prov ider Active Team Status: Inactive Member Role Status Dates Ricki Griffin COTTON CLEANER, COTTON CLEANER-C Primary Care Provider, Referring Provider Active Lashay Prater COTTON CLEANER, COTTON CLEANER-C Attending Provider Active Team Status: Active Member Role Status Dates Ricki Griffin COTTON CLEANER, COTTON CLEANER-C Primary Care Provider Active Sandra Moreau Attending Provider Active Team Status: Active Member Role Status Dates Ricki Griffin COTTON CLEANER, COTTON CLEANER-C Primary Care Provider Active Dr. Jose Antonio Reeves MD Attending Provider, Referring Pro vider Active Team Status: Inactive Member Role Status Dates Ricki Griffin COTTON CLEANER, COTTON CLEANER-C Primary Care Provider Active Dr. Shira Oglesby MD Emergency Provider Active Team Status: Inactive Member Role Status Dates Ricki Griffin COTTON CLEANER, COTTON CLEANER-C Primary Care Provider Active Dr. Shira Oglesby MD Attending Provider, Emergency Provider Active Team Status: Inactive Member Role Status Dates Ricki Griffin COTTON CLEANER, COTTON CLEANER-C Primary Care Provider Active Lashay Prater COTTON CLEANER, COTTON CLEANER-C Attending Provider, Referring Aspen hennessy Active Ignition Specialist Relationship Specialty Start Date End Date Ricki Griffin CNP [address] [place] [id number] PCP - General Family Medicine 08/08/16 Ignition Specialist Relationship Specialty Start Date End Date Ricki Griffin CNP [address] [place] [address] PCP - General Family Medicine 08/08/16 Ignition Specialist Relationship Specialty Start Date End Date Ricki Griffin, STONEMASON SUPERVISOR [address] [place] [address] PCP - General Family Medicine 08/08/16 Ignition Specialist Relationship Specialty Start Date End Date Ricki Griffin STONEMASON SUPERVISOR [address] [place] [address] PCP - General Family Medicine 08/08/16 Team Status: Active Member Role Status Dates Ricki Griffin COTTON CLEANER, COTTON CLEANER-C Primary Care Provider Active Lashay Prater COTTON CLEANER, COTTON CLEANER-C Attending Provider Active Ignition Specialist Relationship Specialty Start Date End Date Ricki Griffin, STONEMASON SUPERVISOR [address] [place] [address] PCP - General Family Medicine 08/08/16 Ignition Specialist Relationship Specialty Start Date End Date Ricki Griffin, STONEMASON SUPERVISOR [address] [place] [address] PCP - General Family Medicine 08/08/16 Ignition Specialist Relationship Specialty Start Date End Date Ricki Griffin CNP [address] [place] [address] PCP - General Family Medicine 08/08/16 Ignition Specialist Relationship Specialty Start Date End Date Ricki Griffin CNP [address] [place] [address] PCP - General Family Medicine 08/08/16 Ignition Specialist Relationship Specialty Start Date End Date Ricki Griffin CNP [address] [place] [address] PCP - General Family Medicine 08/08/16 Ignition Specialist Relationship Specialty Start Date End Date Ricki Griffin CNP [address] [place] [address] PCP - General Family Medicine 08/08/16 Team Status: Active Member Role Status Dates Ricki Griffin COTTON CLEANER, COTTON CLEANER-C Primary Care Provider Active Team Status: Inactive Member Role Status Dates Ricki Griffin COTTON CLEANER, COTTON CLEANER-C Primary Care Provider Active Start: December 072024 End: December 07, 2024 Ricki Griffin COTTON CLEANER, COTTON CLEANER-C Attending Provider Active Start: November End: December 07, 2024 Ricki Griffin COTTON CLEANER, COTTON CLEANER-C Referring Provider Active Start: November End: December 07, 2024 Team Status: Inactive Member Role Status Dates Ricki Griffin COTTON CLEANER, COTTON CLEANER-C Primary Care Provider Active Start: January 06, 2025 End: January 06, 2025 Ricki Griffin NP, COTTON CLEANER-C Referring Provider Ac tive Start: January 06, 2025 End: January 06, 2025 Austen Castro COTTON CLEANER, COTTON CLEANER-C Attending Provider Active S tart: January 06, 2025 End: January 06, 2025 Team Status: Inactive Member Role Status Dates Ricki Griffin COTTON CLEANER, COTTON CLEANER-C Primary Care Provider Active Start: March 12, 2025 End: March 12, 2025 Dr. Jose Antonio Reeves MD Attending Provider Active S tart: March 12, 2025 End: March 12, 2025 Dr. Jose Antonio Reeves MD Referring Provider Active S tart: March 12, 2025 End: March 12, 2025 Team Status: Inactive Member Role Status Dates Ricki Griffin COTTON CLEANER, COTTON CLEANER-C Primary Care Provider Active Start: March 29, 2025 End: March 29, 2025 Austen Castro COTTON CLEANER, COTTON CLEANER-C Attending Provider Active S tart: March 29, 2025 End: March 29, 2025 Austen Castro COTTON CLEANER, COTTON CLEANER-C Referring Provider Active S tart: March 29, 2025 End: March 29, 2025 Team Status: Active Member Role Status Dates Ricki Griffin COTTON CLEANER, COTTON CLEANER-C Primary Care Provider Active Start: March 29, 2025 Dr. Jose Antonio Reeves MD Attending Provider Active S tart: March 29, 2025 Team Status: Active Member Role Status Dates Ricki Griffin COTTON CLEANER, COTTON CLEANER-C Primary Care Provider Active Start: March 30, 2025 Lashay Prater COTTON CLEANER, COTTON CLEANER-C Attending Provider Active Start: March 30, 2025 Team Status: Active Member Role/Relationship Status Dates Ricki Griffin COTTON CLEANER, COTTON CLEANER-C Primary Care Provider Active Team Status: Inactive Member Role/Relationship Status Dates Ricki Griffin COTTON CLEANER, COTTON CLEANER-C Primary Care Provider Active Start: January 06, 2025 End: January 06, 2025 Ricki Griffin COTTON CLEANER, COTTON CLEANER-C Referring Provider Ac tive Start: January 06, 2025 End: January 06, 2025 Austen Castro COTTON CLEANER, COTTON CLEANER-C Attending Provider Active S tart: January 06, 2025 End: January 06, 2025 Team Status: Inactive Member Role/Relationship Status Dates Ricki Griffin COTTON CLEANER, COTTON CLEANER-C Primary Care Provider Active Start: March 12, 2025 End: March 12, 2025 Dr. Jose Antonio Reeves MD Attending Provider Active S tart: March 12, 2025 End: March 12, 2025 Dr. Jose Antonio Reeves MD Referring Provider Active S tart: March 12, 2025 End: March 12, 2025 Team Status: Inactive Member Role/Relationship Status Dates Ricki Griffin COTTON CLEANER, COTTON CLEANER-C Primary Care Provider Active Start: March 29, 2025 End: March 29, 2025 Austen Castro COTTON CLEANER, COTTON CLEANER-C Attending Provider Active S tart: March 29, 2025 End: March 29, 2025 Austen Castro COTTON CLEANER, COTTON CLEANER-C Referring Provider Active S tart: March 29, 2025 End: March 29, 2025 Team Status: Active Member Role/Relationship Status Dates Ricki Griffin COTTON CLEANER, COTTON CLEANER-C Primary Care Provider Active Start: March 29, 2025 Dr. Jose Antonio Reeves MD Attending Provider Active S tart: March 29, 2025 Team Status: Active Member Role/Relationship Status Dates Ricki Griffin COTTON CLEANER, COTTON CLEANER-C Primary Care Provider Active Start: March 30, 2025 Lashay Prater COTTON CLEANER, COTTON CLEANER-C Attending Provider Active Start: March 30, 2025 Team Status: Inactive Member Role/Relationship Status Dates Ricki Griffin COTTON CLEANER, COTTON CLEANER-C Primary Care Provider Active Start: April 30, 2025 End: April 30, 2025 Ricki Griffin COTTON CLEANER, COTTON CLEANER-C Attending Provider Ac tive Start: April 30, 2025 End: April 30, 2025 Ricki Griffin COTTON CLEANER, COTTON CLEANER-C Referring Provider Ac tive Start: April 30, 2025 End: April 30, 2025 Team Status: Active Member Role/Relationship Status Dates Ricki Griffin COTTON CLEANER, COTTON CLEANER-C Primary Care Provider Active Start: May 01, 2025 Ricki Griffin COTTON CLEANER, COTTON CLEANER-C Attending Provider Ac tive Start: May 01, 2025 Ricki Griffin COTTON CLEANER, COTTON CLEANER-C Referring Provider Ac tive Start: May 01, 2025 Team Status: Inactive Member Role/Relationship Status Dates Ricki Griffin COTTON CLEANER, COTTON CLEANER-C Primary Care Provider Active Start: May 01, 2025 End: May 01, 2025 Ricki Griffin COTTON CLEANER, COTTON CLEANER-C Attending Provider Ac tive Start: May 01, 2025 End: May 01, 2025 Ricki Griffin COTTON CLEANER, COTTON CLEANER-C Referring Provider Ac tive Start: May 01, 2025 End: May 01, 2025 Care Team (unrecognized sect ion and content) Care Team Personnel Name: GABY RICKI Carlson ANNUAL CAMPAIGN MANAGER - [employer]ONEM[employer]ON SUPERVISOR Position: P4 Advanced Practice Nurse Member Role: Primary Care Physician Address: Address: [address] [place] [address]- Care Team Related Persons Name: ALEKSANDAR KATE INFORMATION SOURCE (unrecogn ized section and content) DATE CREATED AUTHOR 09/26/2022 [facility] ([place]) DATE CREATED AUTHOR AUTHOR'S ORGANIZ ATION 03/27/2023 [facility] DATE CREATED AUTHOR AUTHOR'S ORGANIZ ATION 12/28/2023 [facility] DATE CREATED AUTHOR AUTHOR'S ORGANIZ ATION 12/23/2024 [facility] DATE CREATED AUTHOR AUTHOR'S ORGANIZ ATION 05/06/2025 [facility] DATE CREATED AUTHOR AUTHOR'S ORGANIZ ATION 05/15/2025 [facility] FOR RECORDS PERTAINING TO PATIENTS WHO ARE [...] BE BASED ON THE PRIMARY CLINICAL RECORDS. [employer] provides no warranty or guarantee of the accuracy or completeness of information in this document.
[2025-06-09 07:10] LABS: Hematocrit 30.3 % (37-47); Hemoglobin 9.9 g/dL (12.0-15.0); Mean Corp Hgb Conc 32.7 g/dL (32-36); Mean Corpuscular Volume 92.9 fL (81-99); Mean Platelet Vol. 9.4 fl (6.2-12.0); Platelet Count 379 K/mm3 (150-450); RBC Distribution Width CV 13.2 % (11.6-14.6); RBC Distribution Width SD 44.4 fl (35.1-43.9); Red Blood Count 3.26 M/mm3 (4.2-5.4); White Blood Count 6.4 K/mm3 (4.4-11.0)
[2025-06-09 08:27] LABS: AST(SGOT) 18 U/L (<=31); Alanine Aminotransfer ALT/SGPT 19 U/L (<=34); Albumin, Serum 4.2 g/dL (3.4-4.8); Alkaline Phosphatase 69 U/L (35-104); Anion Gap 12 (5-15); BUN 18 mg/dL (4-19); BUN/Creat Ratio 22.4 RATIO (10-20); Calcium,Total 9.3 mg/dL (7.6-11.0); Carbon Dioxide 24.0 mmol/L (21.0-32.0); Chloride 102 mmol/L (98-108); Cholesterol 159 mg/dL (<=200); Globulin 2.4 g/dL (2.2-4.2); Glucose 110 mg/dL (70-99); Low Density Lipoprotein Calc. 90 mg/dL; Potassium 4.0 mmol/L (3.3-5.1); Triglycerides 142 mg/dL; Very Low Density Lipoprotein 28 mg/dL (5-40); Vitamin D,25 Hydroxy 56.6 ng/mL (30-100); cholesterol:hdl ratio screen 3.94
[2025-06-09 08:28] LABS: Creatinine, Urine (random) 173.00 mg/dL (28.00-217.00)
[2025-06-09 08:44] LABS: Microalbumin,Random Urine < 12.0 mg/L (<20 mg/L)
== END | disposition home or self-care (01) ==
LOC: LAB 06:34
PROVIDERS: PCP Nurse Practitioner Family; Referring Provider Nurse Practitioner Family; Visit Provider Nurse Practitioner Family
DX: R73.01 Impaired fasting glucose (principal); J44.9 Chronic obstructive pulmonary disease, unspecified; E78.5 Hyperlipidemia, unspecified; R63.8 Other symptoms and signs concerning food and fluid intake; I10 Essential (primary) hypertension; I25.10 Atherosclerotic heart disease of native coronary artery without angina pectoris; E55.9 Vitamin D deficiency, unspecified
CPT/HCPCS: 36415; 80053; 80061; 82043; 82306; 82570; 83036; 85027

== ENCOUNTER → 2025-06-16 | Outpatient (CLI) | payer BC, SELFPAY ==
[2025-06-16 11:58] LABS: Immature Reticulocyte Fraction 20.50 % (3.00-15.90); Platelet Count 371 K/mm3 (150-450); Reticulocyte Count 3.04 % (0.5-1.5)
[2025-06-16 13:15] LABS: Ferritin 13 ng/mL (22-378); Iron 17 ug/dL (50-170); Iron Binding Capacity,Total 407 ug/dL (250-450); Iron Binding Capacity,Unsat 390 ug/dL (228-428)
== END | disposition home or self-care (01) ==
LOC: LAB 11:26
PROVIDERS: PCP Nurse Practitioner Family; Referring Provider Nurse Practitioner Family; Visit Provider Nurse Practitioner Family
DX: D64.9 Anemia, unspecified (principal)
CPT/HCPCS: 36415; 82728; 83540; 83550; 85045

== ENCOUNTER → 2025-07-30 | Outpatient (CLI) | payer BC, SELFPAY ==
--- OUTSIDE RECORDS SUMMARY | 2025-07-30 14:39 | XMS RPT_ITS | CCD ---
Author Organization [facility] Care Team Providers Care Internal Medicine Physician Assistant Name Role Phone Ricki Griffin CNP Primary Care Provider GABY AUTOMOTIVE MAINTENANCE TECHNICIAN - RICKI OLIVER Primary Care Phys ician RAFY WILLIAMSON-SAMEER OLIVER Attending RICKI Gaviria CNP Primary Care Unavaila ble Gaby 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, 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 Ricki Reese Primary Care Pr ovider Dr. Jose Antonio Reeves Attending Provider Dr. Dinesh Burris Emergency Provider Dr. Julio César Arndt Admit Provider Dr. Julio César Arndt Other Provider Dr. Zulma Brunner Other Provider Dr. Rohan Awan Attending Provider Dr. Rohan Awan Other Provider Dr. Kt Romero Other Provider Dr. Zulma Brunner Attending Provider Dr. Kt Romero Attending Provider Dr. Jose Antonio Reeves Referring Provider Gaby 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, 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 Ricki Reese Referring Provi timo Ricki Griffin CNP Primary Care Provider [phone] OLY GUZMÁN Attending Unavailable DAVIE REY Admitting Unavailable ZULMA BRUNNER Referring Unavailab LENKA Coleman Unavailable GABY, RICKI D Primary Care Unavailable Dr. Zulma Brunner Referring Provider Sandra Moreau Attending Provider Unavailable Moi 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, 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 Lashay Attending Provider Gaby 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, 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 Ricki Reese Primary Care Pr ovider Gaby 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, 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 Ricki Reese Referring Provi timo Moi 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, 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 Lashay Attending Provider Dr. Jose Antonio Reeves Attending Provider Gaby 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, 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 Ricki Reese Primary Care Pr ovider Gaby 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, 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 Ricki Reese Referring Provi timo Moi 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, 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 Lashay Attending Provider Dr. Jose Antonio Reeves Referring Provider AURTHUY LUCASN Attending Unavailable GABY, RICKI D Primary Care Unavailable GABY, RICKI D Primary Care Unavailable AURIN, SHAY Attending Unavailable GABY, RICKI D Primary Care Unavailable AURIN, SHAY Attending Unavailable GABY, RICKI D Primary Care Unavailable AURIN, SHAY Attending Unavailable [place] INSIDE TECHNICAL SALES REPRESENTATIVE, Ricki D Primary Care Provider JONG LOZOYA ARACELIS Referring Unavail able GABY, RICKI D Primary Care Unavailable NELUZ MARINA RODRIGUEZRE Attending Unavail able GABY, RICKI D Primary Care Unavailable NEYHART DEVORA, ARACELIS Referring Unavail able GABY, RICKI D Primary Care Unavailable NEYFABIOLAT LOZOYA, ARACELIS Referring Unavail able [place] 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, Ricki Reese Primary Care Provi timo Gaby 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Ricki Attending Provider Gaby 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Ricki Referring Provider Matthew 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Austen Sales Attending Provider [phone] Dr. Jose Antonio Reeves MD Attending Provider Dr. Jose Antonio Reeves MD Referring Provider [phone] Matthew 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, Austen Traore Referring Provider Moi 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Lashay Attending Provider Gaby 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, Ricki Reese Primary Care Provi timo [place] 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, Ricki Reese Referring Provider Gaby 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, Ricki Reese Attending Provider Gaby 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, Ricki Reese Primary Care Provi timo Matthew 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, Austen Traore Attending Provider Gaby 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, Ricki Reese Referring Provider Gaby 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, Ricki Reese Primary Care Physi karen Dr. Jose Antonio Reeves MD Attending Physician Matthew 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, Austen Traore Attending Physician [phone] Moi 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Lashay Attending Physician Gaby 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, Ricki Reese Attending Physicia n Gaby, Ricki Reese Primary Care Unavail able Austen Castro Attending Unavailable Gaby, Ricki Reese Referring Unavail able Gaby, Ricki eRese Primary Care Unavail able [place], Ricki Reese Referring Unavail able Austen Castro Attending Unavailable Gaby, Ricki Reese Attending Unavail able [place], Ricki Reese Referring Unavail able Gaby, Ricki Reese Primary Care Unavail able [place], Ricki Reese Attending Unavail able Gaby, Ricki Reese Referring Unavail able [place], Ricki Reese Primary Care Unavail able [place], Ricki Reese Primary Care Unavail able [place], Ricki Reese Attending Unavail able [place], Ricki Reese Referring Unavail able [place], Ricki Reese Primary Care Unavail able Gaby, Ricki Reese Attending Unavail able Gaby, Ricki Reese Referring Unavail able Gaby, Ricki Reese Primary Care Unavail able Gaby, Ricki Reese Attending Unavail able Gaby, Ricki Reese Referring Unavail able Gaby, Ricki Reese Primary Care Unavail able Austen Castro Attending Unavailable Austen Castro Referring Unavailable Jose Antonio Reeves Attending Unavailable Jose Antonio Reeves Referring Unavailable Ricki Griffin Primary Care Unavail able GabyRicki cornelius Primary Care Unavail able Ricki Griffin Attending Unavail able BernalilloRicki cornelius Referring Unavail able Lashay Prater NP Attending Unavailable Ricki Griffin Primary Care Unavail able Jose Antonio Reeves Attending Unavailable Ricki Griffin Primary Care Unavail able GABY AUTOMOTIVE MAINTENANCE TECHNICIAN - INSIDE TECHNICAL SALES REPRESENTATIVE, RICKI Carlson Primary Care U latoya GR MD, DR SHRESTHA Attending Unavailabl e GABY AUTOMOTIVE MAINTENANCE TECHNICIAN - INSIDE TECHNICAL SALES REPRESENTATIVE, RICKI Carlson Attending U latoya BAKERPKINS AUTOMOTIVE MAINTENANCE TECHNICIAN - INSIDE TECHNICAL SALES REPRESENTATIVE, RICKI Carlson Primary Care U latoya Allergies Allergy Classification Reported Allergen(s) Allergy Type Date of Onset Reaction(s) Facility (19 sources) Adhesive Tape; Translations: [ADHESIVE TAPE (ROSINS)] Allergy to substance 09-10-2012 [facility] (10 sources) Nicotine; Translations: [nicotine] Drug Allergy 01-06-2025 [facility] Comment on above: Nicotine patch (1 source) Nicotine Drug Allergy 06-30-2025 [facility] Repository Medications Current Medications Medication Drug Class(es) Dates Sig (Normalized) Sig (Original) acetaminophen 325 mg / HYDROcodone bitartrate 5 mg oral tablet (3 sources) Opioid Agonist Start: 07-12-2022 take 1 tablet by mouth every six hours as needed Hydrocodone-Acetam inophen Active 1 TABLET PO EVERY 6 HOURS NEEDED 10 3 July 12, 2022 [id number] 200 actuat albuterol 0.09 mg/actuat metered dose inhaler (7 sources) beta2-Adrenergic Agonist Start: 06-23-2024 Albuterol Sulfate 90 mcg/actuation HFA aerosol inhaler Active 2 NMA INHALATION EVERY 6 HOURS as needed June 23, 2024 12:00am Complies with drug therapy albuterol MDI (90 mcg/inh) CFC free inhalation aerosol (2 sources) Start: 06-10-2025 End: 12-07-2025 take 2 puff(s) by inhalation every six hours albuterol MDI (90 mcg/inh) CFC free inhalation aerosol 2 puff(s), Inhalation, q6h, # 18 gram(s), 1 Refill(s), Pharmacy: [facility] COPD with exacerbation, 151, cm, 06/10/25 7:53:00 EDT, Height, kg, 06/10/25 7:53:00 EDT, Dosing Weight Start Date: 06/10/25 Stop Date: 12/07/25 Status: Ordered Medication Dispense Status: Completed Quantity: 18.0 Unit: g Total Allowed Fills: 2 Fills Dispensed: 0 Indications: Chronic obstructive pulmonary disease with (acute) exacerbation; Start: 06-05-2024 End: 12-02-2024 take 2 puff(s) by inhalation every six hours albuterol MDI (90 mcg/inh) CFC free inhalation aerosol 2 puff(s), Inhalation, q6h, # 18 gram(s), 1 Refill(s), [facility] COPD with exacerbation, 157.5, cm, 06/05/24 14:27:00 EDT, Height, kg, 06/05/24 14:27:00 EDT, Dosing Weight Start Date: 06/05/24 Stop Date: 12/02/24 Status: Ordered Quantity: 18.0 Unit: g Repeat number: 2 Indications: Chronic obstructive pulmonary disease with (acute) exacerbation; ascorbic acid 500 mg oral tablet (20 sources) Vitamin C Start: 06-30-2025 take 1 tablet by mouth once daily Ascorbic Acid (Vitamin C) 500 mg tablet Active 500 mg PO daily June 30, 2025 12:00am Complies with drug therapy Start: 03-22-2023 End: 06-23-2024 take 1 tablet by mouth once daily Ascorbic Acid (Vitamin C) 500 mg tablet Discontinued 500 mg PO DAILY March 22, 2023 12:00am June 23, 2024 8:35am Comment on above: Take 500 mg by mouth once daily. aspirin 81 mg delayed release oral tablet (20 sources) Platelet Aggregation Inhibitor, Nonsteroidal Anti-inflammatory Drug Start: 03-22-2023 take 1 mg by mouth once daily aspirin 81 mg oral delayed release tablet mg = tab(s), Oral, qDay, 0 Refill(s) Start Date: 05/17/23 Status: Ordered Medication Dispense Status: Completed Total Allowed Fills: 1 Fills Dispensed: 0 Start: 03-02-2023 End: 04-01-2023 take 1 tablet [...] tablet (20 sources) HMG-CoA Reductase Inhibitor Start: 06-10-2025 atorvastatin 40 mg oral tablet Dose : 40 mg = 1 tab(s), Oral, qDay, # 90 tab(s), 0 Refill(s) Start Date: 06/10/25 Status: Ordered Medication Dispense Status: Completed Quantity: 90.0 Unit: tab(s) Total Allowed Fills: 1 Fills Dispensed: 0 Start: 01-06-2025 End: 06-30-2025 Atorvastatin 40 mg tablet Ac tive 20 mg PO AT BEDTIME 90 3 June 30, 2025 1:48pm Complies with drug therapy Start: 12-11-2024 End: 06-09-2025 atorvastatin 80 mg oral tabl et Dose : 80 mg = 1 tab(s), Oral, qDay, # 90 tab(s), 1 Refill(s), Pharmacy: [facility] Hyperlipidemia LDL goal Start Date: 12/11/24 Stop [...] tab(s), 0 Refill(s), 09/26/22 13:20:00 EST, Pharmacy: [id number], 157.5, cm, 09/21/22 13:03:00 EST, Height, 76.6 Start Date: 09/21/22 Stop Date: 09/26/22 Status: Ordered B-Complex With Vitamin C tablet (1 source) Start: 06-30-2025 B-Complex With Vitamin C tablet Active 1 {tbl} PO daily June 30, 2025 12:00am Complies with drug therapy Blood Pressure Monitor (4 sources) Start: 07-03-2023 Blood Pressure Monitor Active 0 .Route 1 July 03, 2023 5:54pm As directed Start: 06-26-2023 End: 07-03-2023 Blood Pressure Monitor Disco ntinued 0 .Route 1 June 25, 2023 11:00pm July 03, 2023 5:55pm As directed Blood Pressure Monitor kit (14 sources) Start: 07-03-2023 Blood Pressure Monitor kit [...] TWICE A DAY January 06, 2025 12:00am Complies with drug therapy Start: 06-26-2023 End: 06-23-2024 take 1 tablet [...] 150 mg/12 hours oral tablet, extended release (2 sources) Start: 06-10-2025 BuPROPion (Eqv-Wellbutrin SR) 150 mg/12 hours oral tablet, extended release Dose : 150 mg = 1 tab(s), Oral, BID, # 180 tab(s), 1 Refill(s), Pharmacy: [facility], [facility] 151, cm, 06/10/25 7:53:00 EDT, Height, kg, 06/10/25 7:53:00 EDT, Dosing Weight Start Date: 06/10/25 Status: Ordered Medication Dispense Status: Completed Quantity: 180.0 Unit: tab(s) Total Allowed Fills: 2 Fills Dispensed: 0 Start: 03-15-2025 BuPROPion (Eqv -Wellbutrin SR) 150 mg/12 hours oral tablet, extended release Dose : 150 mg = 1 tab(s), Oral, BID, # 180 tab(s), 0 Refill(s), Pharmacy: [facility] 151, cm, 02/26/25 13:34:00 EDT, Height, kg, 02/26/25 13:34:00 EDT, Dosing Weight Start Date: 03/15/25 Status: Ordered Quantity: 180.0 Unit: tab(s) Repeat number: 1 busPIRone hydrochloride 10 m g oral tablet (20 sources) Start: 12-11-2017 busPIRone 10 m g oral tablet Dose : 10 mg = 1 tab(s), Oral, BID, # 180 tab(s), 1 Refill(s), Pharmacy: [facility] 151, cm, 06/10/25 7:53:00 EDT, Height, kg, 06/10/25 7:53:00 EDT, Dosing Weight Start Date: 06/10/25 Status: Ordered Medication Dispense Status: Completed Quantity: 180.0 Unit: tab(s) Total Allowed Fills: 2 Fills Dispensed: 0 Start: 12-11-2017 End: 06-26-2023 take 1 tablet [...] times a day. calcium carbonate 1500 mg / cholecalciferol 0.01 mg oral capsule (1 source) Vitamin D Start: Calcium Carbonate-Vitamin D3 600 mg-10 mcg (400 unit) capsule Active 1 NMA PO DAILY June 30, 2025 12:00am Complies with drug therapy carvedilol 12.5 mg oral tablet (20 sources) alpha-Adrenergic Jaden, beta-Adrenergic Jaden Start: End: take 1 tablet by mouth [...] administer with a meal/food Start: 03-07-2023 End: 06-30-2025 take 1 tablet by mouth twice daily at mealtime Carvedilol 12.5 mg tablet Active 12.5 mg PO TWICE A DAY 180 June 30, 2025 1:48pm must administer with a meal/food Complies with drug therapy Comment on above: Take 1 tablet by anuja twice daily with meals. celecoxib 200 mg oral capsule (20 sources) Nonsteroidal Anti-inflammatory Drug Start: 03-25-2023 CeleBREX 200 mg oral capsule Dose : 200 mg = 1 cap(s), Oral, qDay, # 90 cap(s), 1 Refill(s), Pharmacy: [facility] Chronic pain of right hip Chronic low back pain with right-sided sciatica, 151, cm, 06/10/25 7:53:00 EDT, Height, kg, 06/10/25 7:53:00 EDT, Dosing Weight Start Date: 06/10/25 Status: Ordered Medication Dispense Status: Completed Quantity: 90.0 Unit: cap(s) Total Allowed Fills: 2 Fills Dispensed: 0 Indications: Pain in right hip; Lumbago with sciatica, right side; Comment on above: Take 200 mg by mouth once daily. cetirizine hydrochloride 10 mg oral tablet (9 sources) Histamine-1 Receptor Antagonist Start: 06-10-2025 Zyrtec 10 mg oral tablet Dose : 10 mg = 1 tab(s), Oral, qDay, # 90 tab(s), 1 Refill(s), Pharmacy: [facility], Seasonal allergies, 151, cm, 06/10/25 7:53:00 EDT, Height, kg, 06/10/25 7:53:00 EDT, Dosing Weight Start Date: 06/10/25 Status: Ordered Medication Dispense Status: Completed Quantity: 90.0 Unit: tab(s) Total Allowed Fills: 2 Fills Dispensed: 0 Indications: Other seasonal allergic rhinitis; Start: 12-11-2024 Zyrtec 10 mg o ral tablet Dose : 10 mg = 1 tab(s), Oral, qDay, # 90 tab(s), 1 Refill(s), Pharmacy: [facility] Seasonal allergies, 157, cm, 12/11/24 14:04:00 EST, Height, kg, 12/11/24 14:04:00 EST, Dosing Weight Start Date: 12/11/24 Status: Ordered Quantity: 90.0 Unit: tab(s) Repeat number: 2 Indications: Other seasonal allergic rhinitis; Start: 06-23-2024 take 1 capsule by mo uth once daily as needed Cetirizine (Allergy Relief (Cetirizine)) 10 mg capsule Active 10 mg PO daily as needed June 23, 2024 12:00am Complies with drug therapy cholecalciferol 0.125 mg oral tablet (20 sources) Vitamin D Start: 06-30-2025 take 1 tablet by mouth once daily Cholecalciferol (Vitamin D3) 125 mcg (5,000 unit) tablet Active 125 ug PO daily June 30, 2025 12:00am Complies with drug therapy Start: 03-25-2023 End: 06-30-2025 take 1 capsule by mouth once daily Cholecalciferol (Vitamin D3) 25 mcg (1,000 unit) capsule Discontinued 125 ug PO DAILY March 25, 2023 2:31pm June 30, 2025 1:22pm Start: 03-22-2023 End: 03-25-2023 take 1 capsule [...] week, # 7 cap(s), 1 Refill(s), Pharmacy: [facility], Vitamin D deficiency, 157, cm, 04/06/22 15:49:00 [...] sources) [id number] Platelet Inhibitor Start: 12-08-19 End: 12-07-19 Plavix 75 mg oral tablet Dose : 75 mg = 1 tab(s), Oral, qDay, # 90 tab(s), 1 Refill(s), Pharmacy: [facility], [facility] 151, cm, 06/10/25 7:53:00 EDT, Height, kg, 06/10/25 7:53:00 EDT, Dosing Weight Start Date: 06/10/25 Stop Date: 12/07/25 Status: Ordered Medication Dispense Status: Completed Quantity: 90.0 Unit: tab(s) Total Allowed Fills: 2 Fills Dispensed: 0 Comment on above: Take one(1) tablet d aily. Take 1 tablet by anuja th once daily. docusate sodium 100 mg oral capsule (1 source) Start: 06-30-20 take 2 capsules by mouth once daily Docusate Sodium 100 mg capsule Active 200 mg PO daily June 30, 2025 12:00am Complies with drug therapy empagliflozin 10 mg oral tablet (20 sources) Sodium-Glucose Cotransporter 2 Inhibitor Start: 03-01-20 End: 06-30-20 take 1 mg by mouth once daily in the morning Jardiance 10 mg oral tablet mg = tab(s), Oral, qAM, 0 Refill(s) Start Date: 03/08/23 Status: Ordered Medication Dispense Status: Completed Total Allowed Fills: 1 Fills Dispensed: 0 Comment on above: Take 1 tablet by anuja once daily. famotidine 40 mg oral tablet (1 source) Histamine-2 Receptor Antagonist Start: 04-29-20 Pepcid 40 mg oral tablet Dose : 40 mg = 1 tab(s), Oral, qHS, # 30 tab(s), 0 Refill(s), Pharmacy: [id number], Epigastric abdominal pain, 151, cm, 04/29/25 9:27:00 EDT, Height, kg, 04/29/25 9:27:00 EDT, Dosing Weight Start Date: 04/29/25 Status: Ordered Quantity: 30.0 Unit: tab(s) Repeat number: 1 Indications: Epigastric pain; ferrous sulfate 325 mg oral tablet (1 source) Start: 06-17-20 End: 12-15-19 IRON (ferrous sulfate 325 mg) 65 mg oral tablet Dose : 325 mg = 1 tab(s), Oral, Mon/Sat/Sat, OTC, # 13 tab(s), 5 Refill(s), other reason (Rx) Start Date: 06/17/25 Stop Date: 12/14/25 Status: Ordered Medication Dispense Status: Completed Quantity: 13.0 Unit: tab(s) Total Allowed Fills: 6 Fills Dispensed: 0 furosemide 20 mg oral tablet (20 sources) Loop Diuretic Start: 07-12-20 End: 06-30-20 furosemide 20 mg oral tablet Dose : 20 mg = 1 tab(s), Oral, qDay, # 30 tab(s), 0 Refill(s) Start Date: 12/11/24 Status: Ordered Medication Dispense Status: Completed Quantity: 30.0 Unit: tab(s) Total Allowed Fills: 1 Fills Dispensed: 0 Start: 06-07-2023 End: 09-17-2023 take 1 tablet [...] tab(s), 0 Refill(s), 10/01/22 13:23:00 EST, Pharmacy: [facility], 157.5, cm, 09/21/22 13:03:00 EST, Height Start Date: 09/21/22 Stop Date: 10/01/22 Status: Ordered Iron Bis Glycinat-Vit C-Fa-B12 28 mg iron-60mg -400 mcg-8 mcg capsule (1 source) Start: take 1 capsule by mouth three times weekly Iron Bis Glycinat-Vit C-Fa-B12 28 mg iron-60mg -400 mcg-8 mcg capsule Active 1 NMA PO 3 TIMES A WEEK June 30, 2025 12:00am Complies with drug therapy methylPREDNISolone 4 mg oral tablet (1 source) Corticosteroid Start: End: Medrol Dosepak 4 mg oral tablet Per Dosepak Instructions, Oral, Daily, as directed on package labeling, X 6 day(s), # 1 EA, 0 Refill(s), 09/27/22 13:21:00 EST, Pharmacy: [id number], 157.5, cm, 09/21/22 13:03:00 EST, Height Start Date: 09/21/22 Stop Date: 09/27/22 Status: Ordered montelukast 10 mg oral tablet (9 sources) Leukotriene Receptor Antagonist Start: Singulair 10 mg oral tablet Dose : 10 mg = 1 tab(s), Oral, qDay, # 90 tab(s), 1 Refill(s), Pharmacy: [facility] Seasonal allergies Cough with congestion of paranasal sinus, 151, cm, 06/10/25 7:53:00 EDT, Height, kg, 06/10/25 7:53:00 EDT, Dosing Weight Start Date: 06/10/25 Status: Ordered Medication Dispense Status: Completed Quantity: 90.0 Unit: tab(s) Total Allowed Fills: 2 Fills Dispensed: 0 Indications: Other seasonal allergic rhinitis; Other specified cough; Mucus Relief ER 600 mg oral tablet, extended release (2 sources) Start: Mucus Relief ER 600 mg oral tablet, extended release Dose : 600 mg = 1 tab(s), Oral, q12h, # 60 tab(s), 0 Refill(s), Pharmacy: [id number], 151, cm, 02/26/25 13:34:00 EDT, Height, kg, 02/26/25 13:34:00 EDT, Dosing Weight Start Date: 03/11/25 Status: Ordered Medication Dispense Status: Completed Quantity: 60.0 Unit: tab(s) Total Allowed Fills: 1 Fills Dispensed: 0 Start: 2025 Mucus Relief E R 600 mg oral tablet, extended release Dose : 600 mg = 1 tab(s), Oral, q12h, # 60 tab(s), 0 Refill(s), Pharmacy: [id number], 151, cm, 02/26/25 13:34:00 EDT, Height, kg, 02/26/25 13:34:00 EDT, Dosing Weight Start Date: 03/11/25 Status: Ordered Quantity: 60.0 Unit: tab(s) Repeat number: 1 Multi-Day Plus Minerals (2 sources) Start: 06-05-2024 take 1 dose by mouth once daily Multi-Day Plus Minerals Oral, qDay, 0 Refill(s) Start Date: 06/05/24 Status: Ordered Medication Dispense Status: Completed Total Allowed Fills: 1 Fills Dispensed: 0 Start: 06-05-2024 Multi-Day Plus Minerals Oral, qDay, 0 Refill(s) Start Date: 06/05/24 Status: Ordered Repeat number: 1 MULTIVIT-MINERALS/FERROUS FU M (MULTI VITAMIN ORAL) (16 sources) MULTIVIT-MINERAL S/FERROUS FUM (MULTI VITAMIN ORAL) Take [...] March 22, 2023 12:00am Multivitamin With Iron table t (7 sources) Start: 03-22-2023 Multivitamin W ith Iron tablet Active 1 {tbl} PO DAILY March 22, 2023 12:00am Complies with drug therapy Start: 03-22-2023 Multivitamin W ith Iron tablet Active 1 {tbl} PO DAILY March 22, 2023 12:00am nitroglycerin 0.4 mg sublingual tablet (5 sources) Nitrate Vasodilator Start: 06-30-2025 Nitroglyce rin 0.4 mg tablet, sublingual Active 0.4 mg SL every 5 to 15 minutes as needed June 30, 2025 1:26pm Complies with drug therapy Start: 01-06-2025 End: 06-30-2025 Nitroglycerin 0.4 mg tablet, sublingual Discontinued mg SL January 06, 2025 12:00am June 30, 2025 1:27pm Start: 06-05-2024 End: 10-03-2024 Nitrostat 0.4 mg sublingual tablet Dose : 0.4 mg = 1 tab(s), Sublingual, q5min, PRN for chest pain, # 100 tab(s), 3 Refill(s), Pharmacy: [facility], 157.5, cm, 06/05/24 14:27:00 EDT, Height, kg, 06/05/24 14:27:00 EDT, Dosing Weight Start Date: 06/05/24 Stop Date: 10/03/24 Status: Ordered Medication Dispense Status: Completed Quantity: 100.0 Unit: tab(s) Total Allowed Fills: 4 Fills Dispensed: 0 Start: 09-29-2021 End: 01-27-2022 Nitrostat 0.4 mg sublingual tablet Dose : 0.4 mg = 1 tab(s), Sublingual, q5min, PRN for chest pain, # 100 tab(s), 3 Refill(s), Pharmacy: [facility], 157, cm, 09/29/21 14:25:00 EST, Height, kg, 09/29/21 14:25:00 EST, Dosing Weight Start Date: 09/29/21 Stop Date: 01/27/22 Status: Ordered Nitroglycerin 0.4 mg tablet, sublingual (6 sources) Start: 01-06-2025 Nitroglycerin 0.4 mg tablet, sublingual Active mg SL January 06, 2025 12:00am 60 actuat olodaterol 0.0025 mg/actuat / tiotropium 0.0025 mg/actuat inhalation spray (16 sources) Anticholinergic, beta2-Adrenergic Agonist Start: 01-06-2025 Tiotropium-Olodatero l (Stiolto Respimat) 2.5-2.5 mcg/actuation mist Active 2 NMA INHALATION daily January 06, 2025 12:00am Complies with drug therapy Start: 01-06-2025 Tiotropium-Olo daterol (Stiolto Respimat) 2.5-2.5 mcg/actuation mist Active 2 NMA INHALATION daily January 06, 2025 12:00am Start: 12-11-2024 End: 12-07-2025 take 1 dose by inhalation every twenty-four hours Stiolto Respimat 60 ACT 2.5 mcg-2.5 mcg/inh inhalation aerosol Dose = 2 puff(s), Inhalation, q24h, # 3 EA, 1 Refill(s), Pharmacy: [facility], [facility], 151, cm, 06/10/25 7:53:00 EDT, Height, kg, 06/10/25 7:53:00 EDT, Dosing Weight Start Date: 06/10/25 Stop Date: 12/07/25 Status: Ordered Medication Dispense Status: Completed Quantity: 3.0 Unit: EA Total Allowed Fills: 2 Fills Dispensed: 0 Start: 11-18-2023 STIOLTO RESPIM AT 2.5-2.5 mcg/actuation Inhale 2.5 mcg as instructed once daily. 11/18/2023 Active Start: 04-26-2022 End: 10-23-2022 take 1 dose by inhalation every twenty-four hours Stiolto Respimat 60 ACT 2.5 mcg-2.5 mcg/inh inhalation aerosol Dose = 2 puff(s), Inhalation, q24h, # 3 EA, 1 Refill(s), Pharmacy: [facility], 157, cm, 04/06/22 15:49:00 [...] sources) Proton Pump Inhibitor Start: 06-06-2016 End: 12-07-2025 pantoprazole 40 mg oral enteric coated tablet Dose : 40 mg = 1 tab(s), Oral, qDay, # 90 tab(s), 1 Refill(s), Pharmacy: [facility], [facility], 151, cm, 06/10/25 7:53:00 EDT, Height, kg, 06/10/25 7:53:00 EDT, Dosing Weight Start Date: 06/10/25 Stop Date: 12/07/25 Status: Ordered Medication Dispense Status: Completed Quantity: 90.0 Unit: tab(s) Total Allowed Fills: 2 Fills Dispensed: 0 Comment on above: Take 40 mg by mouth once daily. sacubitril 97 mg / valsartan 103 mg oral tablet (20 sources) Angiotensin 2 Receptor Jaden Start: 03-05-2024 End: 06-30-2025 Sacubitril-Valsartan (Entresto) 97-103 mg tablet Active 1 {tbl} PO TWICE A DAY 180 June 30, 2025 1:48pm Complies with drug therapy Start: 05-22-2023 End: 03-05-2024 take 1 tablet by mouth twice daily sacubitril-valsartan 49 mg-51 mg oral tablet Dose = 1 tab(s), Oral, BID, # 60 tab(s), 0 Refill(s) Start Date: 11/15/23 Status: Ordered Medication Dispense Status: Completed Quantity: 60.0 Unit: tab(s) Total Allowed Fills: 1 Fills Dispensed: 0 Start: 03-01-2023 End: 05-22-2023 Sacubitril-Valsartan (Entres to) 24-26 mg tablet Discontinued 1 {tbl} PO TWICE A DAY March 22, 2023 12:00am March 25, 2023 2:37pm Comment on above: Take 1 tablet by anuja th twice daily. Take 49-51 tablets b y mouth twice daily. sertraline 25 mg oral tablet (20 sources) Serotonin Reuptake Inhibitor Start: 04-14-20 Zoloft 25 mg oral tablet Dose : 25 mg = 1 tab(s), Oral, qDay, # 100 tab(s), 0 Refill(s), Pharmacy: [facility], [facility] 151, cm, 02/26/25 13:34:00 EDT, Height, kg, 02/26/25 13:34:00 EDT, Dosing Weight Start Date: 03/15/25 Status: Ordered Medication Dispense Status: Completed Quantity: 100.0 Unit: tab(s) Total Allowed Fills: 1 Fills Dispensed: 0 Comment on above: Take 25 mg by mouth once daily. For 30 days spironolactone 25 mg oral tablet (20 sources) Aldosterone Antagonist Start: 03-01-20 End: 06-30-20 take 1 tablet by mouth twice daily Spironolactone 25 mg tablet Active 25 mg PO TWICE A DAY 180 June 30, 2025 1:48pm Complies with drug therapy Comment on above: Take 1 tablet by anuja twice daily. sucralfate 1000 mg oral tablet (20 sources) Aluminum Complex Start: 06-30-20 take 1 tablet by mouth four times daily Sucralfate 1 gram tablet Active 1 g PO 4 TIMES DAILY June 30, 2025 12:00am Complies with drug therapy Start: 06-10-2025 End: 08-09-2025 Carafate 1 g oral tablet Dos e : 1 gram(s) = 1 tab(s), Oral, QID, on an empty stomach, # 120 tab(s), 1 Refill(s), Pharmacy: [id number], Hiatal hernia with GERD, 151, cm, 06/10/25 7:53:00 EDT, Height, kg, 06/10/25 7:53:00 EDT, Dosing Weight Start Date: 06/10/25 Stop Date: 08/09/25 Status: Ordered Medication Dispense Status: Completed Quantity: 120.0 Unit: tab(s) Total Allowed Fills: 2 Fills Dispensed: 0 Indications: Diaphragmatic hernia without obstruction or gangrene; Start: 09-07-2022 End: 06-23-2024 take 1 tablet by mouth at bedtime Sucralfate 1 gram tablet Discontinued 1 g PO before meals and at bedtime March 22, 2023 12:00am June 23, 2024 8:35am Comment on above: Take one tablet by m outh before meals and at bedtime as needed vitamin b12 1 mg oral tablet (20 sources) Vitamin B12 Start: 09-17-2023 take 1 tablet by mouth once daily Cyanocobalamin (Vitamin B-12) (Vitamin B-12) 1,000 mcg tablet Active 1000 ug PO DAILY September 17, 2023 10:11am Complies with drug therapy Start: 02-22-2023 End: 09-17-2023 take 5 tablets by mouth once daily Cyanocobalamin (Vitamin B-12) (Vitamin B-12) 1,000 mcg Tablet Discontinued 5000 ug PO DAILY February 22, 2023 12:00am September 17, 2023 10:13am Comment on above: Take 1,000 mcg by mo uth once daily. Vitamin B12 1000 mcg oral tablet (3 sources) Start: 07-02-2019 Vitamin B12 1000 mcg oral tablet Dose : 1,000 mcg = 1 tab(s), Oral, qDay, # 30 tab(s), 0 Refill(s) Start Date: 07/02/19 Status: Ordered Medication Dispense Status: Completed Quantity: 30.0 Unit: tab(s) Total Allowed Fills: 1 Fills Dispensed: 0 Start: 07-02-2019 Vitamin B12 10 00 mcg [...] Start Date: 07/02/19 Status: Ordered Vitamin D3 (2 sources) Start: 12-19-2022 Vitamin D3 Dos e : 25 mcg = 1 tab(s), Oral, Daily, not sure of IU, 0 Refill(s) Start Date: 12/19/22 Status: Ordered Medication Dispense Status: Completed Total Allowed Fills: 1 Fills Dispensed: 0 Start: 12-19-2022 Vitamin D3 Dos e : 25 mcg = 1 tab(s), Oral, Daily, not sure of IU, 0 Refill(s) Start Date: 12/19/22 Status: Ordered Repeat number: 1 Zinc (16 sources) ZINC ORAL Take b y mouth once daily. Active ZINC ORAL Take b y mouth once daily. 0 Active Comment on above: Take by mouth once d aily. zinc gluconate 50 mg oral tablet (20 sources) Start: 06-30-2025 take 1 tablet by mouth once daily Zinc Gluconate 50 mg tablet Active 50 mg PO daily June 30, 2025 12:00am Complies with drug therapy Start: 09-17-2023 End: 06-30-2025 Zinc Gluconate 100 mg tablet Discontinued 50 mg PO DAILY September 17, 2023 10:08am June 30, 2025 1:24pm Start: 09-17-2023 take 50 mg by mouth [...] 0 Refill(s) Start Date: 09/12/20 Status: Ordered Medication Dispense Status: Completed Total Allowed Fills: 1 Fills Dispensed: 0 Completed/Discontinued Medications Medication Drug Class(es) Dates Sig (Normalized) Sig (Original) calcium carbonate 1500 mg oral tablet (7 sources) Start: 01-06-2025 End: 06-30-2025 take 1 tablet by mouth once daily Calcium Carbonate 600 mg calcium (1,500 mg) tablet Discontinued 600 mg PO daily January 06, 2025 12:00am June 30, 2025 1:24pm Calcium Carbonate-Vitamin D2 (Calcium + Vitamin D) 600 mg calcium- 200 unit Tablet (18 sources) Start: 02-22-2023 End: 03-22-2023 Calcium Carbonate-Vitamin [...] 12:00am dicyclomine hydrochloride 20 mg oral tablet (17 sources) Anticholinergic Start: 04-24-2023 End: 09-17-2023 take [...] DAILY February 22, 2023 12:00am Multivitamin Tablet (7 sources) Start: 02-22-2023 End: 03-22-2023 Multivitamin Tablet Discontinued 1 {tbl} PO DAILY February 22, 2023 12:00am March 22, 2023 3:16pm 24 hr nicotine 0.875 mg/hr transdermal system (20 sources) Cholinergic Nicotinic Agonist Start: 03-22-2023 End: [...] ected every 24 hours for 28 days. promethazine hydrochloride 25 mg oral tablet (17 sources) Phenothiazine Start: 04-24-20 End: 01-07-20 take [...] Take 10 mg by mouth once daily. 24 hr venlafaxine 150 mg extended release oral capsule (20 sources) Serotonin and Norepinephrine Reuptake Inhibitor Start: 12-11-19 End: 07-12-20 take 1 capsule by mouth once daily Venlafaxine (Effexor Xr) 150 mg Capsule,Extended Release 24hr Discontinued 150 mg PO DAILY February 22, 2023 12:00am June 26, 2023 1:44pm Comment on above: Take 150 mg by mouth once daily. Vitamin C 500 mg oral tablet (1 source) Start: 06-17-20 End: 07-17-20 Vitamin C 500 mg oral tablet Dose : 500 mg = 1 tab(s), Oral, qDay, # 30 tab(s), 0 Refill(s), other reason (Rx) Start Date: 06/17/25 Stop Date: 07/17/25 Status: Ordered Medication Dispense Status: Completed Quantity: 30.0 Unit: tab(s) Total Allowed Fills: 1 Fills Dispensed: 0 Problems Active Problems Problem Classification Problem Date Documented Date Episodic/Chronic Abdominal hernia (19 sources) Hiatal hernia; Translations: [Diaphragmatic hernia without [...] Chronic Chronic obstructive pulmonary disease and bronchiectasis (17 sources) Chronic obstructive lung disease; Translations: [Chronic obstructive pulmonary disease with (acute) exacerbation] Onset: 2 03-10-2020 Chronic Conduction disorders (4 sources) Cardiac defibrillator in situ; Translations: [Second degree atrioventricular block] 03-08-2023 Chronic Congestive heart failure; nonhypertensive (20 sources) Heart failure with reduced ejection fraction; Translations: [Unspecified systolic (congestive) heart failure] Onset: 3 02-22-2023 Chronic Coronary atherosclerosis and other heart disease (20 sources) Coronary arteriosclerosis; Translations: [Atherosclerotic heart disease of [place] coronary artery without angina pectoris] Onset: 2 09-10-2012 Chronic Deficiency and other anemia (1 source) Anemia, unspecified; Translations: [Anemia, unspecified] Onset: 5 Episodic Deficiency and other anemia (1 source) Anemia due to unknown mechanism 06-10-2025 Episodic Diabetes mellitus without complication (4 sources) Impaired fasting glycemia; Translations: [Impaired fasting glucose] Onset: 5 03-10-2020 Episodic Disorders of lipid metabolism (20 sources) Dyslipidemia; Translations: [Hyperlipidemia, unspecified] Onset: 6 08-29-2016 Chronic Esophageal disorders (2 sources) Gastroesophageal reflux disease with hiatal hernia 02-08-2023 Chronic Essential hypertension (20 sources) Hypertensive disorder; Translations: [Essential (primary) hypertension] Onset: 2 Resolved: 6 08-29-2016 Chronic Gastritis and duodenitis (20 sources) Gastritis; Translations: [Other gastritis without bleeding] Episodic Malaise and fatigue (7 sources) Fatigue; Translations: [Other fatigue] 03-12-2025 Episodic Mood disorders (8 sources) Depressive disorder; Translations: [Premenstrual dysphoric disorder] Onset: 2 Resolved: 5 03-10-2020 Chronic Nausea and vomiting (20 sources) Nausea and vomiting; Translations: [Nausea with vomiting, unspecified] Episodic Nutritional deficiencies (3 sources) Vitamin D deficiency 03-14-2021 Chronic Other and ill-defined heart disease (2 sources) Left ventricular hypertrophy by electrocardiogram 02-08-2023 Chronic Other circulatory disease (2 sources) Abdominal bruit 02-08-2023 Episodic Other connective tissue disease (7 sources) Cramp in lower limb; Translations: [Cramp and spasm] 03-12-2025 Episodic Other lower respiratory disease (18 sources) Hypoxia; Translations: [Hypoxemia] 02-22-2023 Episodic Other lower respiratory disease (9 sources) Hypoxemia; Translations: [Hypoxemia] 02-22-2023 Episodic Other non-traumatic joint disorders (3 sources) Knee pain 04-25-2020 Episodic Other non-traumatic joint disorders (2 sources) Hip pain 09-28-2022 Episodic Other nutritional; endocrine; and metabolic disorders (16 sources) Obesity; Translations: [Obesity, unspecified] Onset: 6 08-29-2016 Chronic Other nutritional; endocrine; and metabolic disorders (1 source) Other symptoms and signs concerning food and fluid intake; Translations: [Other symptoms and signs concerning food and fluid intake] Onset: 5 Episodic Other screening for suspected conditions (not [...] strain equals -9.6% Other upper respiratory disease (2 sources) Seasonal allergy 02-20-2024 Chronic Dania-; endo-; and myocarditis; cardiomyopathy (except that caused by tuberculosis or sexually transmitted disease) (20 sources) Dilated cardiomyopathy; Translations: [Dilated cardiomyopathy] Onset: 3 02-22-2023 Chronic Pneumonia (except that caused by tuberculosis or sexually transmitted disease) (2 sources) Pneumonia; Translations: [Pneumonia, unspecified organism] 02-22-2023 Episodic Residual codes; unclassified (3 sources) Increased body mass index 09-29-2021 Episodic Residual codes; unclassified (2 sources) Postmenopausal state; Translations: [Asymptomatic menopausal state] 09-21-2024 Episodic Residual codes; unclassified (1 source) Asymptomatic menopausal state; Translations: [Asymptomatic postmenopausal status] Onset: 5 Episodic Septicemia (except in labor) (2 sources) Sepsis; Translations: [Sepsis, unspecified organism] 02-22-2023 Episodic Spondylosis; intervertebral disc disorders; other back problems (2 sources) Degeneration of lumbar intervertebral disc 11-02-2022 Chronic [...] Spondylosis; intervertebral disc disorders; other back problems (2 sources) Chronic low back pain 09-28-2022 Episodic Substance-related disorders (20 sources) Nicotine dependence; Translations: [Nicotine dependence, unspecified, uncomplicated] Onset: 3 02-26-2023 Chronic Unclassified (1 source) Ventricular tachyarrhythmia (HCC); Translations: [Ventricular tachyarrhythmia (HCC)] Onset: 3 Unclassified (4 sources) Patient encounter status 06-05-2024 Unclassified (1 source) Other ventricular tachycardia; Translations: [Other ventricular tachycardia] Onset: 5 Past or Other Problems Problem Classification Problem [...] Test Name Value Interpretation Reference Range Facility Cardiology Visit Reporton Cardiology Visit Report [facility] [address] [place] [address] OFFICE VISIT Date of Service: 06/30/25 MR#: [id number] Acct: [id number] Name: VISHAL GEORGE Rep #: [id number] : 1960 Provider: PHONG rome Age/Sex: 65/F Location: [facility] Status: Signed HPI HPI History of Present Illness Details: VISHAL GEORGE, is a 65 F who presents to the office today for a cardiovascular follow-up visit. Patient presented to [facility] for severe nausea and vomiting. Patient was [...] V. tach/wide-complex tachycardia. She was transferred to [facility] for ICD evaluation. EP considered the episode [...] an improved ejection fraction of 45%. She denies chest, arm, jaw, or neck discomfort. She denies palpitations. She denies bilateral lower extremity edema. She denies claudication. She states shortness of breath with activity. She denies shortness of breath at rest, orthopnea, or PND. She denies chronic cough. She denies significant, sudden weight gain. She states lightheadedness. She denies dizziness, near-syncope, or syncope. She denies blood in urine, blood in stool, or epistaxis. He denies fever with chills. She denies myalgia. She denies fatigue. Her exercise level has remained stable. 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 Is patient in pain?: No Allergies nicotine Allergy (Unknown, Verified 06/30/25 13:15) Itching Medications ???Medication ???Instructions ???Recorded ???Confirmed ???Type pantoprazole 40 mg tablet,delayed 40 mg PO DAILY #30 tabs 07/12/22 06/30/25 Rx release aspirin 81 mg tablet,delayed 81 mg PO DAILY 03/22/23 06/30/25 H istory release (Adult Aspirin Regimen) multivitamin with iron 1 tab PO DAILY 03/22/23 06/30/25 H istory sertraline 25 mg tablet 25 mg PO DAILY 03/22/23 06/30/25 H istory celecoxib 200 mg capsule (Celebrex) 200 mg PO DAILY 03/25/23 History buspirone 10 mg tablet 10 mg PO BID 06/26/23 06/30/25 His tory blood pressure monitor #1 ea 07/03/23 06/23/24 Rx cyanocobalamin (vitamin B-12) 1,000 mcg PO DAILY 09/17/23 History 1,000 mcg tablet (Vitamin B-12) albuterol sulfate 90 mcg/actuation 2 puff inhalation Q6H PRN 06/30/25 History aerosol inhaler cetirizine 10 mg capsule (Allergy 10 mg PO QDAY PRN 06/23/24 History Relief (cetirizine)) montelukast 10 mg tablet 10 mg PO QDAY 06/23/24 06/30/25 Hi story (Singulair) bupropion HCl 150 mg tablet,12 hr 150 mg PO BID 01/06/25 06/30/25 H istory sustained-release tiotropium 2.5 mcg-olodaterol 2.5 2 puff inhalation QDAY 01/06/25 0 06/30/25 History mcg/actuation mist for inhalation (Stiolto Respimat) B-complex with vitamin C 1 tab PO QDAY 06/30/25 06/30/25 Hi story ascorbic acid (vitamin C) 500 mg 500 mg PO QDAY 06/30/25 06/30/25 H istory tablet atorvastatin 40 mg tablet 20 mg (1/2 x 40 mg) PO QHS #90 tab s 06/30/25 06/30/25 Rx calcium 600 mg (as 1 cap PO DAILY 06/30/25 06/30/25 H istory carbonate)-vitamin D3 10 mcg (400 unit) capsule carvedilol 12.5 mg tablet 12.5 mg PO BID #180 tabs 06/30/25 06/30/25 Rx cholecalciferol (vitamin D3) 125 125 mcg PO QDAY 06/30/25 06/30/25 History mcg (5,000 unit) tablet clopidogrel 75 mg tablet 75 mg PO QHS #90 tabs 06/30/25 Rx docusate sodium 100 mg capsule 200 mg PO QDAY 06/30/25 06/30/25 H istory empagliflozin 10 mg tablet 10 mg PO DAILY #90 TABLETS 5 06/30/25 Rx (Jardiance) furosemide 20 mg tablet 20 mg PO DAILY #90 TABLETS 5 06/30/25 Rx iron bis glycinate sommer 28 mg 1 cap PO 3XW 06/30/25 06/30/25 His tory iron-vit C 60 mg-FA 400 mcg-B12 8mcg cap nitroglycerin 0.4 mg sublingual 0.4 mg sublingual Q5-15M PRN 06/3006/30/25 History tabl (more content not included)... Normal [facility] Ferritinon 06-16-2025 Ferritin [Mass/Vol] 13 ng/mL Low 22-378 [facility] Comment on above: Performed By: #### L 100.9950, L503.6550, L503.6030 ####[facility] [address] [place], [address] Iron measurement (mass/mass) Ordered By: Ricki Griffin on 06-16-2025 Iron (Unsp spec) [Mass/Mass] 17 ug/dL Low 50-170 [facility] Iron+Iron Binding Capacityon 06-16-2025 Iron [Mass/Vol] 17 ug/dL Low 50-170 [facility] Comment on above: Performed By: #### L 100.9950, L503.6550, L503.6030 ####[facility] [address] [place], [address] IRON SATURATION 4.0 Low 13-59 [facility] Comment on above: Performed By: #### L 100.9950, L503.6550, L503.6030 ####[facility] [address] [place], [address] TIBC 407 ug/dL Normal 250-450 [facility] Comment on above: Performed By: #### L 100.9950, L503.6550, L503.6030 ####[facility] [address] [place], [address] UIBC 390 ug/dL Normal 228-428 [facility] Comment on above: Performed By: #### L 100.9950, L503.6550, L503.6030 ####[facility] [address] [place], [address] No Panel InformationOrdered By: Ricki Griffin on 06-16-2025 Unsaturated Iron Binding Capacity 390 ug/dL 228-428 [facility] Retic Panelon 06-16-2025 IM RET FRACTION 20.50 High 3.00-15.90 [facility] Comment on above: Performed By: #### L 100.9950, L503.6550, L503.6030 ####[facility] [address] [place], [address] RET-HE 26.8 pg Low 30-35 [facility] Comment on above: Performed By: #### L 100.9950, L503.6550, L503.6030 ####[facility] [address] [place], [address] Retic Count 3.04 High 0.5-1.5 [facility] Comment on above: Performed By: #### L 100.9950, L503.6550, L503.6030 ####[facility] [address] [place], [place], [id number] Reticulocyte hemoglobin equi valent (RET-He) measurementOrdered By: Ricki Griffin on 06-16-2025 Hemoglobin (Reticulocytes) [Entitic mass] 26.8 pg Low 30-35 [facility] Reticulocytes Auto (Bld) [#/ Vol]Ordered By: Ricki Griffin on 06-16-2025 Reticulocytes/100 RBC (Bld) 3.04 % High 0.5-1.5 [facility] Serum or plasma ferritin cipriano surement (mass/volume)Ordered By: Ricki Griffin on 06-16-2025 Ferritin [Mass/Vol] 13 ng/mL Low 22-378 [facility] Serum or plasma iron saturat ion measurement (mass fraction)Ordered By: Ricki Griffin on 06-16-2025 Iron saturation [Mass fraction] 4.0 % Low 13-59 [facility] Anion gap in Serum or Plasma Ordered By: Ricki Griffin on 06-09-2025 Anion gap [Moles/Vol] 12 mmol/L 5-15 [facility] BUN/creatinine ratioOrdered By: Ricki Griffin on 06-09-2025 Urea nitrogen/Creatinine [Mass ratio] 22.4 mg/mg High 10-20 [facility] Bilirubin, totalOrdered By: Ricki Griffin on 06-09-2025 Bilirubin [Mass/Vol] 0.21 mg/dL 0.00-1.[address] [facility] CBC-Complete Blood Cnt No Di ffon 06-09-2025 Erythrocyte distribution width (RBC) [Ratio] 13.2 % Normal 11.6-14.6 [facility] Comment on above: Performed By: #### L 100.0500, L500.4100, L500.4050, L506.1001, L501.9985, L502.0250 #### [facility] [address] [place], [address] Hematocrit (Bld) [Volume fraction] 30.3 % Low 37-47 [facility] Comment on above: Performed By: #### L 100.0500, L500.4100, L500.4050, L506.1001, L501.9985, L502.0250 #### [facility] [address] [place], [address] Hemoglobin (Bld) [Mass/Vol] 9.9 g/dL Low 12.0-15.0 [facility] Comment on above: Performed By: #### L 100.0500, L500.4100, L500.4050, L506.1001, L501.9985, L502.0250 #### [facility] [address] [place], [address] MCH (RBC) [Entitic mass] 30.4 pg Normal 27.0-32.0 [facility] Comment on above: Performed By: #### L 100.0500, L500.4100, L500.4050, L506.1001, L501.9985, L502.0250 #### [facility] [address] [place], [address] MCHC (RBC) [Mass/Vol] 32.7 g/dL Normal 32-36 [facility] Comment on above: Performed By: #### L 100.0500, L500.4100, L500.4050, L506.1001, L501.9985, L502.0250 #### [facility] [address] [place], [address] MCV (RBC) [Entitic vol] 92.9 fL Normal 81-99 [facility] Comment on above: Performed By: #### L 100.0500, L500.4100, L500.4050, L506.1001, L501.9985, L502.0250 #### [facility] [address] [place], [address] Platelet mean volume (Bld) [Entitic vol] 9.4 fL Normal 6.2-12.0 [facility] Comment on above: Performed By: #### L 100.0500, L500.4100, L500.4050, L506.1001, L501.9985, L502.0250 #### [facility] [address] [place], [address] Platelets (Bld) [#/Vol] 379 10*3/uL Normal 150-450 [facility] Comment on above: Performed By: #### L 100.0500, L500.4100, L500.4050, L506.1001, L501.9985, L502.0250 #### [facility] [address] [place], [address] RBC (Bld) [#/Vol] 3.26 10*6/uL Low 4.2-5.4 [facility] Comment on above: Performed By: #### L 100.0500, L500.4100, L500.4050, L506.1001, L501.9985, L502.0250 #### [facility] [address] [place], [address] RDW SD 44.4 fl High 35.1-43.9 [facility] Comment on above: Performed By: #### L 100.0500, L500.4100, L500.4050, L506.1001, L501.9985, L502.0250 #### [facility] [address] [place], [address] WBC (Bld) [#/Vol] 6.4 10*3/uL Normal 4.4-11.0 [facility] Comment on above: Performed By: #### L 100.0500, L500.4100, L500.4050, L506.1001, L501.9985, L502.0250 #### [facility] [address] [place], [address] Calculated very low density lipoprotein (VLDL) cholesterol measurementOrdered By: Ricki Griffin on 06-09-2025 Calculated very low density lipoprotein (VLDL) cholesterol measurement 28 mg/dL 5-40 [facility] Carbon dioxide, total [Moles /volume] in Central venous bloodOrdered By: Ricki Griffin on 06-09-2025 CO2 [Moles/Vol] 24.0 mmol/L 21.0-32.0 [facility] Chloride assayOrdered By: Tammy Griffin on 06-09-2025 Chloride [Moles/Vol] 102 mmol/L 98-[address] [facility] Comprehensive Metabolic Prof ilon 06-09-2025 Albumin [Mass/Vol] 4.2 g/dL Normal 3.4-4.8 [facility] Comment on above: Performed By: #### L 100.0500, L500.4100, L500.4050, L506.1001, L501.9985, L502.0250 #### [facility] [address] [place], [place], [id number] Albumin/Globulin [Mass ratio] 1.7 {ratio} Normal 0.9-2.4 [facility] Comment on above: Performed By: #### L 100.0500, L500.4100, L500.4050, L506.1001, L501.9985, L502.0250 #### [facility] [address] [place], [place], [id number] ALK PHOS 69 U/L Normal 35-104 [facility] Comment on above: Performed By: #### L 100.0500, L500.4100, L500.4050, L506.1001, L501.9985, L502.0250 #### [facility] [address] [place], [place], [id number] ALT [Catalytic activity/Vol] 19 U/L Normal <=34 [facility] Comment on above: Performed By: #### L 100.0500, L500.4100, L500.4050, L506.1001, L501.9985, L502.0250 #### [facility] [address] [place], [address] AST [Catalytic activity/Vol] 18 U/L Normal <=31 [facility] Comment on above: Performed By: #### L 100.0500, L500.4100, L500.4050, L506.1001, L501.9985, L502.0250 #### [facility] [address] [place], [address] Bilirubin [Mass/Vol] 0.21 mg/dL Normal 0.00-1.[address] [facility] Comment on above: Performed By: #### L 100.0500, L500.4100, L500.4050, L506.1001, L501.9985, L502.0250 #### [facility] [address] [place], [address] BUN/CRE 22.4 RATIO High 10-20 [facility] Comment on above: Performed By: #### L 100.0500, L500.4100, L500.4050, L506.1001, L501.9985, L502.0250 #### [facility] [address] [place], [address] Calcium [Mass/Vol] 9.3 mg/dL Normal 7.6-11.0 [facility] Comment on above: Performed By: #### L 100.0500, L500.4100, L500.4050, L506.1001, L501.9985, L502.0250 #### [facility] [address] [place], [address] Chloride [Moles/Vol] 102 mmol/L Normal 98-[address] [facility] Comment on above: Performed By: #### L 100.0500, L500.4100, L500.4050, L506.1001, L501.9985, L502.0250 #### [facility] [address] [place], [address] CO2 [Moles/Vol] 24.0 mmol/L Normal 21.0-32.0 [facility] Comment on above: Performed By: #### L 100.0500, L500.4100, L500.4050, L506.1001, L501.9985, L502.0250 #### [facility] [address] [place], [address] Creatinine [Mass/Vol] 0.79 mg/dL Normal 0.70-1.20 [facility] Comment on above: Performed By: #### L 100.0500, L500.4100, L500.4050, L506.1001, L501.9985, L502.0250 #### [facility] [address] [place], [address] GAP 12 Normal 5-15 [facility] Comment on above: Performed By: #### L 100.0500, L500.4100, L500.4050, L506.1001, L501.9985, L502.0250 #### [facility] [address] [place], [address] GFR/1.73 sq M.predicted among non-blacks MDRD (S/P/Bld) [Vol rate/Area] 85 mL/min/{1.73_m2} Normal >60 [facility] Comment on above: Result Comment: mL/m in/1.73m2 CKD-EPI Creatinine Equation (2020) Performed By: #### L 100.0500, L500.4100, L500.4050, L506.1001, L501.9985, L502.0250 #### [facility] [address] [place], [address] Globulin (S) [Mass/Vol] 2.4 g/dL Normal 2.2-4.2 [facility] Comment on above: Performed By: #### L 100.0500, L500.4100, L500.4050, L506.1001, L501.9985, L502.0250 #### [facility] [address] [place], [address] Glucose [Mass/Vol] 110 mg/dL High 70-99 [facility] Comment on above: Performed By: #### L 100.0500, L500.4100, L500.4050, L506.1001, L501.9985, L502.0250 #### [facility] [address] [place], [address] Potassium [Moles/Vol] 4.0 mmol/L Normal 3.3-5.1 [facility] Comment on above: Performed By: #### L 100.0500, L500.4100, L500.4050, L506.1001, L501.9985, L502.0250 #### [facility] [address] [place], [address] Sodium [Moles/Vol] 138 mmol/L Normal 133-145 [facility] Comment on above: Performed By: #### L 100.0500, L500.4100, L500.4050, L506.1001, L501.9985, L502.0250 #### [facility] [address] [place], [address] T PROT 6.5 g/dL Normal 5.9-8.4 [facility] Comment on above: Performed By: #### L 100.0500, L500.4100, L500.4050, L506.1001, L501.9985, L502.0250 #### [facility] [address] [place], [address] Urea nitrogen [Mass/Vol] 18 mg/dL Normal 4-19 [facility] Comment on above: Performed By: #### L 100.0500, L500.4100, L500.4050, L506.1001, L501.9985, L502.0250 #### [facility] [address] [place], [place], [id number] Erythrocyte distribution wid th ratioOrdered By: Ricki Griffin on 06-09-2025 Erythrocyte distribution width (RBC) [Ratio] 13.2 % 11.6-14.6 [facility] Erythrocyte distribution wid th standard deviationOrdered By: Ricki Griffin on 06-09-2025 Erythrocyte distribution width (RBC) [Ratio] 44.4 fl High 35.1-43.9 [facility] Glomerular filtration rate ( GFR) estimation/1.73 sq m using serum, plasma, or whole bOrdered By: Ricki Griffin on 06-09-2025 GFR/1.73 sq M.predicted among non-blacks MDRD (S/P/Bld) [Vol rate/Area] 85 mL/min/{1.73_m2} >60 [facility] Comment on above: mL/min/1.73m2 CKD-EP I Creatinine Equation (2020) Hematocrit Auto (Bld) [Volum e fraction]Ordered By: Ricki Griffin on 06-09-2025 Hematocrit (Bld) [Volume fraction] 30.3 % Low 37-47 [facility] Hemoglobin A1con 06-09-2025 HbA1c (Bld) [Mass fraction] 5.1 % Normal <=5.6 [facility] Comment on above: Result Comment: Norm al < 5.7 % Prediabetic 5.7 - 6.4 % Diabetic >or= 6.5 % Please note range changes. Performed By: #### L 100.0500, L500.4100, L500.4050, L506.1001, L501.9985, L502.0250 #### [facility] [address] [place], [place], [id number] Hemoglobin A1c percentageOrd ered By: Ricki Griffin on 06-09-2025 HbA1c (Bld) [Mass fraction] 5.1 % <5.7 [facility] Comment on above: Normal < 5.7 % Predi abetic 5.7 - 6.4 % Diabetic >or= 6.5 % Please note range changes. Hemoglobin measurementOrdere d By: Ricki Griffin on 06-09-2025 Hemoglobin (Bld) [Mass/Vol] 9.9 g/dL Low 12.0-15.0 [facility] LDL calc ser/plasOrdered By: Ricki Grfifin on 06-09-2025 Cholesterol in LDL [Mass/Vol] 90 mg/dL [facility] Comment on above: Nfgfrfuozl=941-573 m g/dL & Higher Lsyk=921 mg/dL or greaterFriedwald Equation for LDL-C Laboratory - Chemistry and C hemistry - challengeOrdered By: Ricki Griffin on 06-09-2025 AST [Catalytic activity/Vol] 18 U/L <32 [facility] Lipid Profileon 06-09-2025 CHOL:HDL 3.94 Normal [facility] Comment on above: Performed By: #### L 100.0500, L500.4100, L500.4050, L506.1001, L501.9985, L502.0250 #### [facility] [address] [place], [address] Cholesterol [Mass/Vol] 159 mg/dL Normal <=200 [facility] Comment on above: Result Comment: Chol esterol level, Desirable <200 mg/dL Borderline high cholesterol 200-239 mg/dL High cholesterol >=240 mg/dL Recommendations of the NCEP Adult Treatment Panel for the following risk-cutoff thresholds for the [place] population. Performed By: #### L 100.0500, L500.4100, L500.4050, L506.1001, L501.9985, L502.0250 #### [facility] [address] [place], [address] Cholesterol in HDL [Mass/Vol] 40 mg/dL Normal [facility] Comment on above: Result Comment: Alina onal Cholesterol Education Program (NCEP) guidelines: <40 mg/dL: Low HDL-cholesterol (major risk factor for CHD) >= 60 mg/dL: High HDL-cholesterol (negative risk factor for CHD) HDL-cholesterol is affected by a number of factors, e.g. smoking, exercise, hormones, sex and age. Performed By: #### L 100.0500, L500.4100, L500.4050, L506.1001, L501.9985, L502.0250 #### [facility] [address] [place] [place], [address] Cholesterol in LDL [Mass/Vol] 90 mg/dL Normal [facility] Comment on above: Result Comment: Bord pvxlfl=696-745 mg/dL Higher Zgsy=497 mg/dL or greater Friedwald Equation for LDL-C Performed By: #### L 100.0500, L500.4100, L500.4050, L506.1001, L501.9985, L502.0250 #### [facility] [address] [place] [place], [address] Cholesterol in VLDL [Mass/Vol] 28 mg/dL Normal 5-40 [facility] Comment on above: Performed By: #### L 100.0500, L500.4100, L500.4050, L506.1001, L501.9985, L502.0250 #### [facility] [address] [place] [place], [address] Triglyceride [Mass/Vol] 142 mg/dL Normal [facility] Comment on above: Result Comment: The drugs N-Acetylcysteine and Metamizole may falsely depress this assay. Normal range: <150 mg/dL Borderline High: 150-199 mg/dL High: 200-499 mg/dL Very High: >500 mg/dL Performed By: #### L 100.0500, L500.4100, L500.4050, L506.1001, L501.9985, L502.0250 #### [facility] [address] [place], [address] MCV (mean corpuscular volume ) determinationOrdered By: Ricki Griffin on 06-09-2025 MCV (RBC) [Entitic vol] 92.9 fL 81-99 [facility] Mean corpuscular hemoglobin (MCH) determinationOrdered By: Ricki Griffin on 06-09-2025 MCH (RBC) [Entitic mass] 30.4 pg 27.0-32.0 [facility] Mean corpuscular hemoglobin concentration (MCHC) determinationOrdered By: Ricki Griffin on 06-09-2025 MCHC (RBC) [Mass/Vol] 32.7 g/dL 32-36 [facility] Mean platelet volume determi nationOrdered By: Ricki Griffin on 06-09-2025 Platelet mean volume (Bld) [Entitic vol] 9.4 fL 6.2-12.0 [facility] Microalb:Creat Ratio,Random URon 06-09-2025 MALB:CREAT UNABLE TO CALCULATE Normal <30 mg/g CRE [facility] Comment on above: Performed By: #### L 100.0500, L500.4100, L500.4050, L506.1001, L501.9985, L502.0250 #### [facility] [address] [place], [address] MICROALBUMIN,UR < 12.0 Normal <20 mg/L [facility] Comment on above: Performed By: #### L 100.0500, L500.4100, L500.4050, L506.1001, L501.9985, L502.0250 #### [facility] [address] [place], [address] Microalbumin/creat ratio urO rdered By: Ricki Griffin on 06-09-2025 Urine microalbumin/creatinine ratio measurement UNABLE TO CALCULATE mg/g CRE <30 [facility] Platelet countOrdered By: Tammy Griffin on 06-09-2025 Platelets (Bld) [#/Vol] 379 10*3/uL 150-450 [facility] Potassium measurement (mass/ volume)Ordered By: Ricki Griffin on 06-09-2025 Potassium (Unsp spec) [Mass/Vol] 4.0 mmol/L 3.3-5.1 [facility] RBC Auto (Bld) [#/Vol]Ordere d By: Ricki Griffin on 06-09-2025 RBC (Bld) [#/Vol] 3.26 10*6/uL Low 4.2-5.4 [facility] Random urine creatinine virgie urement (mass/volume)Ordered By: Ricki Griffin on 06-09-2025 Creatinine Unsp time (U) [Mass/Vol] 173.00 mg/dL 28.00-217.0 0 [facility] Screening total cholesterol/ high density lipoprotein (HDL) cholesterol ratioOrdered By: Ricki Griffin on 06-09-2025 Cholesterol.total/Choleste rol in HDL [Mass ratio] 3.94 {ratio} [facility] Serum creatinine measurement (mass/volume)Ordered By: Ricki Griffin on 06-09-2025 Creatinine [Mass/Vol] 0.79 mg/dL 0.70-1.20 [facility] Serum globulin measurementOr dered By: Ricki Griffin on 06-09-2025 Globulin (S) [Mass/Vol] 2.4 g/dL 2.2-4.2 [facility] Serum glucose measurement (m ass/volume)Ordered By: Ricki Griffin on 06-09-2025 Glucose [Mass/Vol] 110 mg/dL High 70-99 [facility] Serum or plasma alanine herrera otransferase (ALT) measurementOrdered By: Ricki Griffin on 06-09-2025 ALT [Catalytic activity/Vol] 19 U/L <35 [facility] Serum or plasma albumin virgie urement (mass/volume)Ordered By: Ricki Griffin on 06-09-2025 Albumin [Mass/Vol] 4.2 g/dL 3.4-4.8 [facility] Serum or plasma albumin/glob ulin mass ratioOrdered By: Ricki Griffin on 06-09-2025 Albumin/Globulin [Mass ratio] 1.7 {ratio} 0.9-2.4 [facility] Serum or plasma alkaline sherri sphatase measurementOrdered By: Ricki Griffin on 06-09-2025 ALP [Catalytic activity/Vol] 69 U/L 35-104 [facility] Serum or plasma calcium virgie urement (mass/volume)Ordered By: Ricki Griffin on 06-09-2025 Calcium [Mass/Vol] 9.3 mg/dL 7.6-11.0 [facility] Serum or plasma cholesterol in HDL measurement (mass/volume)Ordered By: Ricki Griffin on 06-09-2025 Cholesterol in HDL [Mass/Vol] 40 mg/dL >40 [facility] Comment on above: National Cholesterol Education Program (NCEP) guidelines:<40 mg/dL: Low HDL-cholesterol (major risk factor for CHD)>= 60 mg/dL: High HDL-cholesterol (negative risk factor for CHD)HDL-cholesterol is affected by a number of factors, e.g. smoking, exercise, hormones, sex and age. Serum or plasma cholesterol measurement (mass/volume)Ordered By: Ricki Griffin on 06-09-2025 Cholesterol [Mass/Vol] 159 mg/dL <201 [facility] Comment on above: Cholesterol level, D esirable <200 mg/dLBorderline high cholesterol 200-239 mg/dLHigh cholesterol >=240 mg/dLRecommendations of the NCEP Adult Treatment Panel for the following risk-cutoff thresholds for the [place] population. Serum or plasma urea nitroge n measurement (mass/volume)Ordered By: Ricki Griffin on 06-09-2025 Urea nitrogen [Mass/Vol] 18 mg/dL 4-19 [facility] Sodium levelOrdered By: Froylan Griffin on 06-09-2025 Sodium [Moles/Vol] 138 mmol/L 133-145 [facility] Total proteinOrdered By: Godfrey Griffin on 06-09-2025 Protein [Mass/Vol] 6.5 g/dL 5.9-8.4 [facility] Triglycerides measurementOrd ered By: Ricki Griffin on 06-09-2025 Triglyceride [Mass/Vol] 142 mg/dL <199 [facility] Comment on above: The drugs N-Acetylcy steine and Metamizole may falsely depress this assay. Normal range: <150 mg/dLBorderline High: 150-199 mg/dLHigh: 200-499 mg/dLVery High: >500 mg/dL Urine albumin measurement wi detection limit of 20 mg/L or less (mass/volume)Ordered By: Ricki Griffin on 06-09-2025 Albumin DL <= 20 mg/L (U) [Mass/Vol] < 12.0 mg/L <20 mg/L [facility] Vitamin D,25 Hydroxyon 06-09 Vitamin D 25-OH 56.6 ng/mL Normal 30-100 [facility] Comment on above: Result Comment: Stephanie min D Status Deficiency: <20 ng/mL (50nmol/L) Insufficiency: 20-30 ng/mL (50-75 nmol/L) Sufficiency: 30-100 ng/mL (75-250 nmol/L) Toxicity: >100 ng/mL (>250 nmol/L) Performed By: #### L 100.0500, L500.4100, L500.4050, L506.1001, L501.9985, L502.0250 #### [facility] [address] [place], [address] White blood cell (WBC) count Ordered By: Ricki Griffin on 06-09-2025 WBC (Bld) [#/Vol] 6.4 10*3/uL 4.4-11.0 [facility] XR UPPER GIon 05-13-2025 XR UPPER GI [...] 11:48:01 AM Ordering Provider: RICKI GRIFFIN Normal [facility] H. PYLORI STOOL AGon 025 H PYLORI STL AG Negative Normal Negative [facility] Comment on above: Result Comment: Perf ormed at: [employer] [facility] [place] [id number] Lead Android Developer: James Thompson PhD, Phone: [phone] Performed By: #### L 3100.1950 #### [facility] [address] [place], [place], [id number] Stool Helicobacter pylori an tigen detection by immunoassayOrdered By: Ricki Griffin on 05-01-2025 H. pylori Ag IA Ql (Stl) Negative Negative [facility] Comment on above: Performed at: [facility] [place] [id number] Director: James Thompson PhD, Phone: [phone] Anion gap in Serum or Plasma Ordered By: Ricki Griffin on 04-30-2025 Anion gap [Moles/Vol] 13 mmol/L 5-15 [facility] BUN/creatinine ratioOrdered By: Ricki Griffin on 04-30-2025 Urea nitrogen/Creatinine [Mass ratio] 26.3 mg/mg High 10-20 [facility] Bilirubin, totalOrdered By: Ricki Griffin on 04-30-2025 Bilirubin [Mass/Vol] 0.36 mg/dL 0.00-1.[address] [facility] CBC-Complete Blood Cnt No Di ffon 04-30-2025 Erythrocyte distribution width (RBC) [Ratio] 13.4 % Normal 11.6-14.6 [facility] Comment on above: Performed By: #### L 100.0500, L500.4050, L501.2450 ####[facility] [address] [place], [address] Hematocrit (Bld) [Volume fraction] 37.4 % Normal 37-47 [facility] Comment on above: Performed By: #### L 100.0500, L500.4050, L501.2450 ####[facility] [address] [place], [address] Hemoglobin (Bld) [Mass/Vol] 12.3 g/dL Normal 12.0-15.0 [facility] Comment on above: Performed By: #### L 100.0500, L500.4050, L501.2450 ####[facility] [address] [place], [address] MCH (RBC) [Entitic mass] 31.1 pg Normal 27.0-32.0 [facility] Comment on above: Performed By: #### L 100.0500, L500.4050, L501.2450 ####[facility] [address] [place], [address] MCHC (RBC) [Mass/Vol] 32.9 g/dL Normal 32-36 [facility] Comment on above: Performed By: #### L 100.0500, L500.4050, L501.2450 ####[facility] [address] [place], [address] MCV (RBC) [Entitic vol] 94.4 fL Normal 81-99 [facility] Comment on above: Performed By: #### L 100.0500, L500.4050, L501.2450 ####[facility] [address] [place], [address] Platelet mean volume (Bld) [Entitic vol] 9.4 fL Normal 6.2-12.0 [facility] Comment on above: Performed By: #### L 100.0500, L500.4050, L501.2450 ####[facility] [address] [place], [address] Platelets (Bld) [#/Vol] 373 10*3/uL Normal 150-450 [facility] Comment on above: Performed By: #### L 100.0500, L500.4050, L501.2450 ####[facility] [address] [place], [address] RBC (Bld) [#/Vol] 3.96 10*6/uL Low 4.2-5.4 [facility] Comment on above: Performed By: #### L 100.0500, L500.4050, L501.2450 ####[facility] [address] [place], [address] RDW SD 46.9 fl High 35.1-43.9 [facility] Comment on above: Performed By: #### L 100.0500, L500.4050, L501.2450 ####[facility] [address] [place], [address] WBC (Bld) [#/Vol] 7.2 10*3/uL Normal 4.4-11.0 [facility] Comment on above: Performed By: #### L 100.0500, L500.4050, L501.2450 ####[facility] [address] [place], [address] Carbon dioxide, total [Moles /volume] in Central venous bloodOrdered By: Ricki Griffin on 04-30-2025 CO2 [Moles/Vol] 25.4 mmol/L 21.0-32.0 [facility] Chloride assayOrdered By: Tammy Griffin on 04-30-2025 Chloride [Moles/Vol] 99 mmol/L 98-[address] [facility] Comprehensive Metabolic Prof ilon 04-30-2025 Albumin [Mass/Vol] 4.5 g/dL Normal 3.4-4.8 [facility] Comment on above: Performed By: #### L 100.0500, L500.4050, L501.2450 ####[facility] [address] [place], [address] Albumin/Globulin [Mass ratio] 1.6 {ratio} Normal 0.9-2.4 [facility] Comment on above: Performed By: #### L 100.0500, L500.4050, L501.2450 ####[facility] [address] [place], [address] ALK PHOS 77 U/L Normal 35-104 [facility] Comment on above: Performed By: #### L 100.0500, L500.4050, L501.2450 ####[facility] [address] [place], [address] ALT [Catalytic activity/Vol] 23 U/L Normal <=34 [facility] Comment on above: Performed By: #### L 100.0500, L500.4050, L501.2450 ####[facility] [address] [place], [address] AST [Catalytic activity/Vol] 21 U/L Normal <=31 [facility] Comment on above: Performed By: #### L 100.0500, L500.4050, L501.2450 ####[facility] [address] [place], [address] Bilirubin [Mass/Vol] 0.36 mg/dL Normal 0.00-1.[address] [facility] Comment on above: Performed By: #### L 100.0500, L500.4050, L501.2450 ####[facility] [address] [place], [address] BUN/CRE 26.3 RATIO High 10-20 [facility] Comment on above: Performed By: #### L 100.0500, L500.4050, L501.2450 ####[facility] [address] [place], [address] Calcium [Mass/Vol] 9.9 mg/dL Normal 7.6-11.0 [facility] Comment on above: Performed By: #### L 100.0500, L500.4050, L501.2450 ####[facility] [address] [place], [address] Chloride [Moles/Vol] 99 mmol/L Normal 98-[address] [facility] Comment on above: Performed By: #### L 100.0500, L500.4050, L501.2450 ####[facility] [address] [place], [address] CO2 [Moles/Vol] 25.4 mmol/L Normal 21.0-32.0 [facility] Comment on above: Performed By: #### L 100.0500, L500.4050, L501.2450 ####[facility] [address] [place], [address] Creatinine [Mass/Vol] 0.96 mg/dL Normal 0.70-1.20 [facility] Comment on above: Performed By: #### L 100.0500, L500.4050, L501.2450 ####[facility] [address] [place], [address] GAP 13 Normal 5-15 [facility] Comment on above: Performed By: #### L 100.0500, L500.4050, L501.2450 ####[facility] [address] [place], [address] GFR/1.73 sq M.predicted among non-blacks MDRD (S/P/Bld) [Vol rate/Area] 67 mL/min/{1.73_m2} Normal >60 [facility] Comment on above: Result Comment: mL/m in/1.73m2 CKD-EPI Creatinine Equation (2020) Performed By: #### L 100.0500, L500.4050, L501.2450 ####[facility] [address] [place], [address] Globulin (S) [Mass/Vol] 2.8 g/dL Normal 2.2-4.2 [facility] Comment on above: Performed By: #### L 100.0500, L500.4050, L501.2450 ####[facility] [address] [place], [address] Glucose [Mass/Vol] 109 mg/dL High 70-99 [facility] Comment on above: Performed By: #### L 100.0500, L500.4050, L501.2450 ####[facility] [address] [place], [address] Potassium [Moles/Vol] 4.0 mmol/L Normal 3.3-5.1 [facility] Comment on above: Performed By: #### L 100.0500, L500.4050, L501.2450 ####[facility] [address] [place], [address] Sodium [Moles/Vol] 138 mmol/L Normal 133-145 [facility] Comment on above: Performed By: #### L 100.0500, L500.4050, L501.2450 ####[facility] [address] [place], [address] T PROT 7.2 g/dL Normal 5.9-8.4 [facility] Comment on above: Performed By: #### L 100.0500, L500.4050, L501.2450 ####[facility] [address] [place], [address] Urea nitrogen [Mass/Vol] 25 mg/dL High 4-19 [facility] Comment on above: Performed By: #### L 100.0500, L500.4050, L501.2450 ####[facility] [address] [place], [place], [id number] Erythrocyte distribution wid th ratioOrdered By: Ricki Griffin on 04-30-2025 Erythrocyte distribution width (RBC) [Ratio] 13.4 % 11.6-14.6 [facility] Erythrocyte distribution wid th standard deviationOrdered By: Ricki Griffin on 04-30-2025 Erythrocyte distribution width (RBC) [Ratio] 46.9 fl High 35.1-43.9 [facility] Glomerular filtration rate ( GFR) estimation/1.73 sq m using serum, plasma, or whole bOrdered By: Ricki Griffin on 04-30-2025 GFR/1.73 sq M.predicted among non-blacks MDRD (S/P/Bld) [Vol rate/Area] 67 mL/min/{1.73_m2} >60 [facility] Comment on above: mL/min/1.73m2 CKD-EP I Creatinine Equation (2020) Hematocrit Auto (Bld) [Volum e fraction]Ordered By: Ricki Griffin on 04-30-2025 Hematocrit (Bld) [Volume fraction] 37.4 % 37-47 [facility] Hemoglobin measurementOrdere d By: Ricki Griffin on 04-30-2025 Hemoglobin (Bld) [Mass/Vol] 12.3 g/dL 12.0-15.0 [facility] Laboratory - Chemistry and C hemistry - challengeOrdered By: Ricki rGiffin on 04-30-2025 AST [Catalytic activity/Vol] 21 U/L <32 [facility] Lipaseon 04-30-2025 Lipase [Catalytic activity/Vol] 29 U/L Normal 13-75 [facility] Comment on above: Result Comment: Magui hurst note: LIPASE revised reference range effective 23. New Lipase methodology. Expected to produce lower values than the previous assay method. NEW Reference Range: 13 - 75 U/L Performed By: #### L 100.0500, L500.4050, L501.2450 ####[facility] [address] [place], [place], [id number] Lipase measurementOrdered By : Ricki Griffin on 04-30-2025 Lipase [Catalytic activity/Vol] 29 U/L 13-75 [facility] Comment on above: Please note:LIPASE r evised reference range effective 23. New Lipase methodology. Expected to produce lower values than the previous assay method. NEW Reference Range: 13 - 75 U/L MCV (mean corpuscular volume ) determinationOrdered By: Ricki Griffin on 04-30-2025 MCV (RBC) [Entitic vol] 94.4 fL 81-99 [facility] Mean corpuscular hemoglobin (MCH) determinationOrdered By: Ricki Griffin on 04-30-2025 MCH (RBC) [Entitic mass] 31.1 pg 27.0-32.0 [facility] Mean corpuscular hemoglobin concentration (MCHC) determinationOrdered By: Ricki Griffin on 04-30-2025 MCHC (RBC) [Mass/Vol] 32.9 g/dL 32-36 [facility] Mean platelet volume determi nationOrdered By: Ricki Griffin on 04-30-2025 Platelet mean volume (Bld) [Entitic vol] 9.4 fL 6.2-12.0 [facility] Platelet countOrdered By: Tammy Griffin on 04-30-2025 Platelets (Bld) [#/Vol] 373 10*3/uL 150-450 [facility] Potassium measurement (mass/ volume)Ordered By: Ricki Griffin on 04-30-2025 Potassium (Unsp spec) [Mass/Vol] 4.0 mmol/L 3.3-5.1 [facility] RBC Auto (Bld) [#/Vol]Ordere d By: Ricki Griffin on 04-30-2025 RBC (Bld) [#/Vol] 3.96 10*6/uL Low 4.2-5.4 [facility] Serum creatinine measurement (mass/volume)Ordered By: Ricki Griffin on 04-30-2025 Creatinine [Mass/Vol] 0.96 mg/dL 0.70-1.20 [facility] Serum globulin measurementOr dered By: Ricki Griffin on 04-30-2025 Globulin (S) [Mass/Vol] 2.8 g/dL 2.2-4.2 [facility] Serum glucose measurement (m ass/volume)Ordered By: Ricki Griffin on 04-30-2025 Glucose [Mass/Vol] 109 mg/dL High 70-99 [facility] Serum or plasma alanine herrera otransferase (ALT) measurementOrdered By: Ricki Griffin on 04-30-2025 ALT [Catalytic activity/Vol] 23 U/L <35 [facility] Serum or plasma albumin virgie urement (mass/volume)Ordered By: Ricki Griffin on 04-30-2025 Albumin [Mass/Vol] 4.5 g/dL 3.4-4.8 [facility] Serum or plasma albumin/glob ulin mass ratioOrdered By: Ricki Griffin on 04-30-2025 Albumin/Globulin [Mass ratio] 1.6 {ratio} 0.9-2.4 [facility] Serum or plasma alkaline sherri sphatase measurementOrdered By: Ricki Griffin on 04-30-2025 ALP [Catalytic activity/Vol] 77 U/L 35-104 [facility] Serum or plasma calcium virgie urement (mass/volume)Ordered By: Ricki Griffin on 04-30-2025 Calcium [Mass/Vol] 9.9 mg/dL 7.6-11.0 [facility] Serum or plasma urea nitroge n measurement (mass/volume)Ordered By: Ricki Griffin on 04-30-2025 Urea nitrogen [Mass/Vol] 25 mg/dL High 4-19 [facility] Sodium levelOrdered By: Froylan Griffin on 04-30-2025 Sodium [Moles/Vol] 138 mmol/L 133-145 [facility] Total proteinOrdered By: Godfrey Griffin on 04-30-2025 Protein [Mass/Vol] 7.2 g/dL 5.9-8.4 [facility] White blood cell (WBC) count Ordered By: Ricki Griffin on 04-30-2025 WBC (Bld) [#/Vol] 7.2 10*3/uL 4.4-11.0 [facility] Echo, Limited Studyon 2024 Echo, Limited Study [facility] [address] [place] [address] Echo, Limited Study 03/29/25 1258 MR#: [id number] Acct: [id number] Name: VISHAL GEORGE Rep #: [id number] : 1960 65 From: Jose Antonio Reeves MD Attending Dr: Austen Castro NP-C Status: REG CLI Ordering Dr: Austen Castro NP 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 Date: 03/29/25 Location: [facility] Sex: F C Admitted: Reason For [...] Date Dictated: 03/29/25 1258 Date Transcribed: 03/29/251903 [employer] Consultant: [facility] Limited echocardiogram repor tOrdered By: Jose Antonio Reeves on 03-29-2025 Study report [facility] [address] [place] [address] Echo, Limited Study 03/29/25 1258 MR#: [id number] Acct: [id number] Name: VISHAL GEORGE Rep #:[id number] : 1960 65 From: Jose Antonio Carlson Attending Dr: PHONG Olivares Sta tus: REG CLI Ordering Dr: Austen Castro NP 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 Date: 03/29/25 Location: [facility] Sex: F C Admitted: Reason For [...] Date _ Jose Antonio Reeves MD CC: 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Henrry Castro; PHONG Griffin ~ Date Dictated: 03/29/25 1258 Date Transcribed: 03/29/251903 [employer] Consultant: Signed [facility] Work Phone: Absolute lymphocyte countOrd ered By: Jose Antonio Reeves on 03-12-2025 Lymphocytes Auto (Unsp spec) [#/Vol] 1.63 10*3/uL 0.83-4.51 [facility] Absolute neutrophil countOrd ered By: Jose Antonio Reeves on 03-12-2025 Neutrophils (Bld) [#/Vol] 4.5 10*3/uL 2.0-7.7 [facility] Anion gap in Serum or Plasma Ordered By: Jose Antonio Leandro on 03-12-2025 Anion gap [Moles/Vol] 12 mmol/L 5-15 [facility] Automated lymphocyte count a s percentage of total leukocytesOrdered By: Jose Antonio Reeves on 03-12-2025 Lymphocytes/100 WBC Auto (Unsp spec) 22.6 % 19-41 [facility] BUN/creatinine ratioOrdered By: Jose Antonio Reeves on 03-12-2025 Urea nitrogen/Creatinine [Mass ratio] 23.1 mg/mg High 10- [facility] Basic Metabolic Profile (BMP )on 03-12-2025 BUN/CRE 23.1 RATIO High 10- [facility] Comment on above: Performed By: #### L 501.9520, L503.7505, L500.2500, L501.9310, L100.0100 ####[facility] [address] [place], [address] Calcium [Mass/Vol] 10.0 mg/dL Normal 7.6-11.0 [facility] Comment on above: Performed By: #### L 501.9520, L503.7505, L500.2500, L501.9310, L100.0100 ####[facility] [address] [place], [address] Chloride [Moles/Vol] 100 mmol/L Normal 98-[address] [facility] Comment on above: Performed By: #### L 501.9520, L503.7505, L500.2500, L501.9310, L100.0100 ####[facility] [address] [place], [address] CO2 [Moles/Vol] 24.9 mmol/L Normal 21.0-32.0 [facility] Comment on above: Performed By: #### L 501.9520, L503.7505, L500.2500, L501.9310, L100.0100 ####[facility] [address] [place], [address] Creatinine [Mass/Vol] 0.78 mg/dL Normal 0.70-1.20 [facility] Comment on above: Performed By: #### L 501.9520, L503.7505, L500.2500, L501.9310, L100.0100 ####[facility] [address] [place], [address] GAP 12 Normal 5-15 [facility] Comment on above: Performed By: #### L 501.9520, L503.7505, L500.2500, L501.9310, L100.0100 ####[facility] [address] [place], [address] GFR/1.73 sq M.predicted among non-blacks MDRD (S/P/Bld) [Vol rate/Area] 86 mL/min/{1.73_m2} Normal >60 [facility] Comment on above: Result Comment: mL/m in/1.73m2 CKD-EPI Creatinine Equation (2020) Performed By: #### L 501.9520, L503.7505, L500.2500, L501.9310, L100.0100 ####[facility] [address] [place], [address] Glucose [Mass/Vol] 90 mg/dL Normal 70-99 [facility] Comment on above: Performed By: #### L 501.9520, L503.7505, L500.2500, L501.9310, L100.0100 ####[facility] [address] [place], [address] Potassium [Moles/Vol] 4.2 mmol/L Normal 3.3-5.1 [facility] Comment on above: Performed By: #### L 501.9520, L503.7505, L500.2500, L501.9310, L100.0100 ####[facility] [address] [place], [address] Sodium [Moles/Vol] 137 mmol/L Normal 133-145 [facility] Comment on above: Performed By: #### L 501.9520, L503.7505, L500.2500, L501.9310, L100.0100 ####[facility] [address] [place], [address] Urea nitrogen [Mass/Vol] 18 mg/dL Normal 4-19 [facility] Comment on above: Performed By: #### L 501.9520, L503.7505, L500.2500, L501.9310, L100.0100 ####[facility] [address] [place], [address] Basophil percentageOrdered B y: Jose Antonio Leandro on 03-12-2025 Basophils/100 WBC (Bld) 1.3 % High 0-1 [facility] CBC W/Diff, Automatedon 02-13 Absolute Lymph 1.63 X10 3/uL Normal 0.83-4.51 [facility] Comment on above: Performed By: #### L 501.9520, L503.7505, L500.2500, L501.9310, L100.0100 ####[facility] [address] [place], [address] Absolute Neut 4.5 X10 3/uL Normal 2.0-7.7 [facility] Comment on above: Performed By: #### L 501.9520, L503.7505, L500.2500, L501.9310, L100.0100 ####[facility] [address] [place], [address] Basophils/100 WBC (Bld) 1.3 % High 0-1 [facility] Comment on above: Performed By: #### L 501.9520, L503.7505, L500.2500, L501.9310, L100.0100 ####[facility] [address] [place], [address] Eosinophils/100 WBC (Bld) 3.8 % Normal 0-5 [facility] Comment on above: Performed By: #### L 501.9520, L503.7505, L500.2500, L501.9310, L100.0100 ####[facility] [address] [place], [address] Erythrocyte distribution width (RBC) [Ratio] 13.3 % Normal 11.6-14.6 [facility] Comment on above: Performed By: #### L 501.9520, L503.7505, L500.2500, L501.9310, L100.0100 ####[facility] [address] [place], [address] Hematocrit (Bld) [Volume fraction] 41.6 % Normal 37-47 [facility] Comment on above: Performed By: #### L 501.9520, L503.7505, L500.2500, L501.9310, L100.0100 ####[facility] [address] [place], [address] Hemoglobin (Bld) [Mass/Vol] 13.6 g/dL Normal 12.0-15.0 [facility] Comment on above: Performed By: #### L 501.9520, L503.7505, L500.2500, L501.9310, L100.0100 ####[facility] [address] [place], [address] IG% 0.400 Normal 0.0-0.9 [facility] Comment on above: Result Comment: IG% - Immature Granulocytes (promyelocytes, myelocytes and metamyelocytes) > 1% indicates that a LEFT SHIFT is Present. Performed By: #### L 501.9520, L503.7505, L500.2500, L501.9310, L100.0100 ####[facility] [address] [place], [address] Lymphocytes/100 WBC (Bld) 22.6 % Normal 19-41 [facility] Comment on above: Performed By: #### L 501.9520, L503.7505, L500.2500, L501.9310, L100.0100 ####[facility] [address] [place], [address] MCH (RBC) [Entitic mass] 30.1 pg Normal 27.0-32.0 [facility] Comment on above: Performed By: #### L 501.9520, L503.7505, L500.2500, L501.9310, L100.0100 ####[facility] [address] [place], [address] MCHC (RBC) [Mass/Vol] 32.7 g/dL Normal 32-36 [facility] Comment on above: Performed By: #### L 501.9520, L503.7505, L500.2500, L501.9310, L100.0100 ####[facility] [address] [place], [address] MCV (RBC) [Entitic vol] 92.0 fL Normal 81-99 [facility] Comment on above: Performed By: #### L 501.9520, L503.7505, L500.2500, L501.9310, L100.0100 ####[facility] [address] [place], [address] Monocytes/100 WBC (Bld) 10.0 % Normal 0-10 [facility] Comment on above: Performed By: #### L 501.9520, L503.7505, L500.2500, L501.9310, L100.0100 ####[facility] [address] [place], [address] Neutrophils/100 WBC (Bld) 61.9 % Normal 47-70 [facility] Comment on above: Performed By: #### L 501.9520, L503.7505, L500.2500, L501.9310, L100.0100 ####[facility] [address] [place], [address] Nucleated RBC (Bld) [#/Vol] 0 10*3/uL Normal 0-5 [facility] Comment on above: Performed By: #### L 501.9520, L503.7505, L500.2500, L501.9310, L100.0100 ####[facility] [address] [place], [address] Platelet mean volume (Bld) [Entitic vol] 9.5 fL Normal 6.2-12.0 [facility] Comment on above: Performed By: #### L 501.9520, L503.7505, L500.2500, L501.9310, L100.0100 ####[facility] [address] [place], [address] Platelets (Bld) [#/Vol] 424 10*3/uL Normal 150-450 [facility] Comment on above: Performed By: #### L 501.9520, L503.7505, L500.2500, L501.9310, L100.0100 ####[facility] [address] [place], [address] RBC (Bld) [#/Vol] 4.52 10*6/uL Normal 4.2-5.4 [facility] Comment on above: Performed By: #### L 501.9520, L503.7505, L500.2500, L501.9310, L100.0100 ####[facility] [address] [place], [address] RDW SD 45.1 fl High 35.1-43.9 [facility] Comment on above: Performed By: #### L 501.9520, L503.7505, L500.2500, L501.9310, L100.0100 ####[facility] [address] [place], [address] WBC (Bld) [#/Vol] 7.2 10*3/uL Normal 4.4-11.0 [facility] Comment on above: Performed By: #### L 501.9520, L503.7505, L500.2500, L501.9310, L100.0100 ####[facility] [address] [place], [address] Carbon dioxide, total [Moles /volume] in Central venous bloodOrdered By: [place] Leandro on 03-12-2025 CO2 [Moles/Vol] 24.9 mmol/L 21.0-32.0 [facility] Chloride assayOrdered By: Cy ril Leandro on 03-12-2025 Chloride [Moles/Vol] 100 mmol/L 98-[address] [facility] Eosinophil percentageOrdered By: Jose Antonio Leandro on 03-12-2025 Eosinophils/100 WBC (Bld) 3.8 % 0-5 [facility] Erythrocyte distribution wid th ratioOrdered By: Jose Antonio Leandro on 03-12-2025 Erythrocyte distribution width (RBC) [Ratio] 13.3 % 11.6-14.6 [facility] Erythrocyte distribution wid th standard deviationOrdered By: [place] Leandro on 03-12-2025 Erythrocyte distribution width (RBC) [Ratio] 45.1 fl High 35.1-43.9 [facility] Glomerular filtration rate ( GFR) estimation/1.73 sq m using serum, plasma, or whole bOrdered By: Jose Antonio Reeves on 03-12-2025 GFR/1.73 sq M.predicted among non-blacks MDRD (S/P/Bld) [Vol rate/Area] 86 mL/min/{1.73_m2} >60 [facility] Comment on above: mL/min/1.73m2 CKD-EP I Creatinine Equation (2020) Hematocrit Auto (Bld) [Volum e fraction]Ordered By: Jose Antonio Reeves on 03-12-2025 Hematocrit (Bld) [Volume fraction] 41.6 % 37-47 [facility] Hemoglobin measurementOrdere d By: Jose Antonio Reeves on 03-12-2025 Hemoglobin (Bld) [Mass/Vol] 13.6 g/dL 12.0-15.0 [facility] Immature granulocytes/100 WB C Auto (Bld)Ordered By: Jose Antonio Reeves on 03-12-2025 Immature granulocytes/100 WBC (Bld) 0.400 % 0.0-0.9 [facility] Comment on above: IG% - Immature Granu locytes (promyelocytes, myelocytes and metamyelocytes) > 1% indicates that a LEFT SHIFT is Present. L503.7505on 03-12-2025 Natriuretic peptide B (Bld) [Mass/Vol] 916 pg/mL High <=900 [facility] Comment on above: Result Comment: Hear t Failure Unlikely: < 300 pg/mL Heart Failure Likely < 50 Years: > 450 pg/mL 50-75 Years: > 900 pg/mL >75 Years: > 1800 pg/mL Performed By: #### L 501.9520, L503.7505, L500.2500, L501.9310, L100.0100 ####[facility] [address] [place], [address] MCV (mean corpuscular volume ) determinationOrdered By: Jose Antonio Reeves on 03-12-2025 MCV (RBC) [Entitic vol] 92.0 fL 81-99 [facility] Mean corpuscular hemoglobin (MCH) determinationOrdered By: Jose Antonio Reeves on 03-12-2025 MCH (RBC) [Entitic mass] 30.1 pg 27.0-32.0 [facility] Mean corpuscular hemoglobin concentration (MCHC) determinationOrdered By: [place] Leandro on 03-12-2025 MCHC (RBC) [Mass/Vol] 32.7 g/dL 32-36 [facility] Mean platelet volume determi nationOrdered By: [place] Leandro on 03-12-2025 Platelet mean volume (Bld) [Entitic vol] 9.5 fL 6.2-12.0 [facility] Monocyte percentageOrdered B y: Jose Antonio Leandro on 03-12-2025 Monocytes/100 WBC (Bld) 10.0 % 0-10 [facility] Natriuretic peptide.B prohor clive N-Terminal [Mass/volume] in Serum or PlasmaOrdered By: [place] Leandro on 03-12-2025 Natriuretic peptide.B prohormone N-Terminal [Mass/Vol] 916 pg/mL High <900 [facility] Comment on above: Heart Failure Unlike ly: < 300 pg/mLHeart Failure Likely< 50 Years: > 450 pg/mL50-75 Years: > 900 pg/mL>75 Years: > 1800 pg/mL Neutrophil percentageOrdered By: [place] Leandro on 03-12-2025 Neutrophils/100 WBC (Bld) 61.9 % 47-70 [facility] Nucleated red blood cell per centageOrdered By: Jose Antonio Leandro on 03-12-2025 Nucleated RBC/100 WBC (Bld) [Ratio] 0 % 0-5 [facility] Platelet countOrdered By: Cy ril Leandro on 03-12-2025 Platelets (Bld) [#/Vol] 424 10*3/uL 150-450 [facility] Potassium measurement (mass/ volume)Ordered By: Jose Antonio Leandro on 03-12-2025 Potassium (Unsp spec) [Mass/Vol] 4.2 mmol/L 3.3-5.1 [facility] RBC Auto (Bld) [#/Vol]Ordere d By: [place] Leandro on 03-12-2025 RBC (Bld) [#/Vol] 4.52 10*6/uL 4.2-5.4 [facility] Serum creatinine measurement (mass/volume)Ordered By: Jose Antonio Leandro on 03-12-2025 Creatinine [Mass/Vol] 0.78 mg/dL 0.70-1.20 [facility] Serum glucose measurement (m ass/volume)Ordered By: Jose Antonio Leandro on 03-12-2025 Glucose [Mass/Vol] 90 mg/dL 70-99 [facility] Serum or plasma calcium virgie urement (mass/volume)Ordered By: [place] Leandro on 03-12-2025 Calcium [Mass/Vol] 10.0 mg/dL 7.6-11.0 [facility] Serum or plasma urea nitroge n measurement (mass/volume)Ordered By: Jose Antonio Leandro on 03-12-2025 Urea nitrogen [Mass/Vol] 18 mg/dL 4-19 [facility] Sodium levelOrdered By: Jenna Reeves on 03-12-2025 Sodium [Moles/Vol] 137 mmol/L 133-145 [facility] T4 Total, Thyroxinon 025 T4 [Mass/Vol] 6.6 ug/dL Normal 4.8-13.9 [facility] Comment on above: Performed By: #### L 501.9520, L503.7505, L500.2500, L501.9310, L100.0100 ####[facility] [address] [place], [place], [id number] TSH DL <= 0.005 mIU/L QnOrde red By: Jose Antonio Reeves on 03-12-2025 TSH Qn 1.950 uIU/mL 0.300-4.200 [facility] Thyroid Stim Hormone (TSH)on 03-12-2025 TSH 1.950 uIU/mL Normal 0.300-4.200 [facility] Comment on above: Performed By: #### L 501.9520, L503.7505, L500.2500, L501.9310, L100.0100 ####[facility] [address] [place], [place], [id number] ThyroxineOrdered By: Jose Antonio guido on 03-12-2025 T4 [Mass/Vol] 6.6 ug/dL 4.8-13.9 [facility] White blood cell (WBC) count Ordered By: Jose Antonio Reeves on 03-12-2025 WBC (Bld) [#/Vol] 7.2 10*3/uL 4.4-11.0 [facility] Cardiology Visit Reporton Cardiology Visit Report [facility] [address] [place] [address] OFFICE VISIT Date of Service: 01/06/25 MR#: [id number] Acct: [id number] Name: VISHAL GEORGE Rep #: [id number] : 1960 Provider: PHONG rome Age/Sex: 64/F Location: [facility] Status: Signed with Addenda ADDENDUM by PHONG Castro on 01/06/25 at 1636 Assessment and Plan Assessment and Plan (1) Ischemic cardiomyopathy: Status: Acute Plan: Ischemic cardiomyopathy: Echocardiogram 10/08/2023-EF: 45% Twelve-lead EC04/24/2023-normal sinus rhythm at 80 bpm and QRS 100 [employer] Functional Class: 1 ACC/AHA stage: [...] updated, as necessary. 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 Patient presented to [facility] for severe nausea and vomiting. Patient was [...] V. tach/wide-complex tachycardia. She was transferred to [facility] for ICD evaluation. 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 Normal [facility] 12-21-2024 [facility] Telephone (OBGYWM) VISHAL GEORGE ([id number]) 1960 F Date Time Provider Department 12/21/24 ARACELIS MCCORMICK [facility] During your visit today, we recorded the following information about you: Dinah Singh, RN 12/21/2024 2:31 PM Signed Patient called in requested 11/19/24 bone density result. Advised mychart message was sent by provider, but she does not use her [employer]. Read her DM's message to her. All [...] 12/21/2024 Noted Resolved Coronary artery disease involving angoon howard*09/10/2012 Unspecified essential hypertension [I10] 09/10/2012 08/29/2016 [...] Status:Closed by DINAH SINGH on 12/21/24 Normal [facility] Albumin to globulin ratioOrd ered By: Ricki Griffin on 12-07-2024 Albumin/Globulin [Mass ratio] 1.1 {ratio} 0.9-2.4 [facility] Bilirubin, totalOrdered By: Ricki Griffin on 12-07-2024 Bilirubin [Mass/Vol] 0.20 mg/dL 0.20-1.[address] [facility] Comment on above: For patients on eltr ombopag therapy, use of Dimension [place] TBIL is not recommended. Blood urea nitrogen (BUN)/cr eatinine ratioOrdered By: Ricki Griffin on 12-07-2024 Urea nitrogen/Creatinine [Mass ratio] 25.3 mg/mg High 10-20 [facility] Carbon dioxide measurementOr dered By: Ricki Griffin on 12-07-2024 CO2 [Moles/Vol] 27.0 mmol/L 21.0-32.0 [facility] Chloride measurementOrdered By: Ricki Griffin on 12-07-2024 Chloride [Moles/Vol] 105 mmol/L 98-[address] [facility] Comprehensive Metabolic Prof ilon 12-07-2024 Albumin [Mass/Vol] 3.6 g/dL Normal 3.2-5.0 [facility] Comment on above: Performed By: #### L 506.1000, L500.4100, L501.9985, L500.4050, L502.0250 ####[facility] [address] [place], [address] Albumin/Globulin [Mass ratio] 1.1 {ratio} Normal 0.9-2.4 [facility] Comment on above: Performed By: #### L 506.1000, L500.4100, L501.9985, L500.4050, L502.0250 ####[facility] [address] [place], [address] ALK P 72 U/L Normal 45-117 [facility] Comment on above: Performed By: #### L 506.1000, L500.4100, L501.9985, L500.4050, L502.0250 ####[facility] [address] [place], [address] ALT [Catalytic activity/Vol] 23 U/L Normal 13-56 [facility] Comment on above: Performed By: #### L 506.1000, L500.4100, L501.9985, L500.4050, L502.0250 ####[facility] [address] [place], [address] AST [Catalytic activity/Vol] 17 U/L Normal 15-37 [facility] Comment on above: Performed By: #### L 506.1000, L500.4100, L501.9985, L500.4050, L502.0250 ####[facility] [address] [place], [address] Bilirubin [Mass/Vol] 0.20 mg/dL Normal 0.20-1.[address] [facility] Comment on above: Result Comment: For patients on eltrombopag therapy, use of Dimension [place] TBIL is not recommended. Performed By: #### L 506.1000, L500.4100, L501.9985, L500.4050, L502.0250 ####[facility] [address] [place], [address] BUN/CRE 25.3 RATIO High 10-20 [facility] Comment on above: Performed By: #### L 506.1000, L500.4100, L501.9985, L500.4050, L502.0250 ####[facility] [address] [place], [address] CA,Total 9.2 mg/dL Normal 8.5-10.1 [facility] Comment on above: Performed By: #### L 506.1000, L500.4100, L501.9985, L500.4050, L502.0250 ####[facility] [address] [place], [address] Chloride [Moles/Vol] 105 mmol/L Normal 98-[address] [facility] Comment on above: Performed By: #### L 506.1000, L500.4100, L501.9985, L500.4050, L502.0250 ####[facility] [address] [place], [address] CO2 [Moles/Vol] 27.0 mmol/L Normal 21.0-32.0 [facility] Comment on above: Performed By: #### L 506.1000, L500.4100, L501.9985, L500.4050, L502.0250 ####[facility] [address] [place], [address] Creatinine [Mass/Vol] 0.71 mg/dL Normal 0.55-1.02 [facility] Comment on above: Result Comment: The validity of the calculated GFR GFRAA in patients over 70 years has not been determined. Clinical correlation is essential. Performed By: #### L 506.1000, L500.4100, L501.9985, L500.4050, L502.0250 ####[facility] [address] [place], [address] EST GFR - AA 107 mL/min Normal >60 [facility] Comment on above: Result Comment: Afri can Cypriot GFR Calc Performed By: #### L 506.1000, L500.4100, L501.9985, L500.4050, L502.0250 ####[facility] [address] [place], [address] GAP 7 Normal 5-15 [facility] Comment on above: Performed By: #### L 506.1000, L500.4100, L501.9985, L500.4050, L502.0250 ####[facility] [address] [place], [address] GFR/1.73 sq M.predicted among non-blacks MDRD (S/P/Bld) [Vol rate/Area] 88 mL/min/{1.73_m2} Normal >60 [facility] Comment on above: Result Comment: Non- GFR Calc Performed By: #### L 506.1000, L500.4100, L501.9985, L500.4050, L502.0250 ####[facility] [address] [place], [address] Globulin (S) [Mass/Vol] 3.3 g/dL Normal 2.2-4.2 [facility] Comment on above: Performed By: #### L 506.1000, L500.4100, L501.9985, L500.4050, L502.0250 ####[facility] [address] [place], [address] Glucose [Mass/Vol] 105 mg/dL Normal 74-106 [facility] Comment on above: Result Comment: Fast ing Glucose result from 100 to 125 mg/dL suggests IMPAIRED HOMEOSTASIS per A.D.A. criteria. Performed By: #### L 506.1000, L500.4100, L501.9985, L500.4050, L502.0250 ####[facility] [address] [place], [address] Potassium [Moles/Vol] 4.2 mmol/L Normal 3.5-5.1 [facility] Comment on above: Performed By: #### L 506.1000, L500.4100, L501.9985, L500.4050, L502.0250 ####[facility] [address] [place], [address] Sodium [Moles/Vol] 139 mmol/L Normal 136-145 [facility] Comment on above: Performed By: #### L 506.1000, L500.4100, L501.9985, L500.4050, L502.0250 ####[facility] [address] [place], [address] T PROT 6.9 g/dL Normal 6.4-8.2 [facility] Comment on above: Performed By: #### L 506.1000, L500.4100, L501.9985, L500.4050, L502.0250 ####[facility] [address] [place], [address] Urea nitrogen [Mass/Vol] 18 mg/dL Normal 7-18 [facility] Comment on above: Performed By: #### L 506.1000, L500.4100, L501.9985, L500.4050, L502.0250 ####[facility] [address] [place], [place], [address] Glomerular filtration rate ( GFR) estimationOrdered By: Ricki Griffin on 12-07-2024 GFR/1.73 sq M.predicted among non-blacks MDRD (S/P/Bld) [Vol rate/Area] 88 mL/min/{1.73_m2} >60 [facility] Comment on above: Non- GFR Calc Glucose measurementOrdered B y: Ricki Griffin on 12-07-2024 Glucose [Mass/Vol] 105 mg/dL 74-106 [facility] Comment on above: Fasting Glucose resu lt from 100 to 125 mg/dL suggests IMPAIRED HOMEOSTASIS per A.D.A. criteria. Hemoglobin A1con 12-07-2024 HbA1c (Bld) [Mass fraction] 5.4 % Normal 3.8-5.6 [facility] Comment on above: Result Comment: Norm al < 5.7 % Prediabetic 5.7 - 6.4 % Diabetic >or= 6.5 % Please note range changes. Performed By: #### L 506.1000, L500.4100, L501.9985, L500.4050, L502.0250 ####[facility] [address] [place], [place], [address] Hemoglobin A1c percentageOrd ered By: Ricki Griffin on 12-07-2024 HbA1c (Bld) [Mass fraction] 5.4 % 3.8-5.6 [facility] Comment on above: Normal < 5.7 % Predi abetic 5.7 - 6.4 % Diabetic >or= 6.5 % Please note range changes. High density lipoprotein (HD L) measurementOrdered By: Ricki Griffin on 12-07-2024 Cholesterol in HDL [Mass/Vol] 50 mg/dL >40 [facility] Comment on above: The drugs N-Acetylcy steine and Metamizole may falsely depress this assay. Reference Range HDL <40 mg/dL Low HDL Cholesterol HDL >or= 60 mg/dL High HDL Cholesterol Laboratory - Chemistry and C hemistry - challengeOrdered By: Ricki Griffin on 12-07-2024 AST [Catalytic activity/Vol] 17 U/L 15-37 [facility] Lipid Profileon 12-07-2024 Cholesterol [Mass/Vol] 172 mg/dL Normal 200 [facility] Comment on above: Result Comment: <200 mg/dL Desirable 200-240 mg/dL Borderline >240 mg/dL High Risk Performed By: #### L 506.1000, L500.4100, L501.9985, L500.4050, L502.0250 ####[facility] [address] [place], [address] Cholesterol in HDL [Mass/Vol] 50 mg/dL Normal [facility] Comment on above: Result Comment: The drugs N-Acetylcysteine and Metamizole may falsely depress this assay. Reference Range HDL <40 mg/dL Low HDL Cholesterol HDL >or= 60 mg/dL High HDL Cholesterol Performed By: #### L 506.1000, L500.4100, L501.9985, L500.4050, L502.0250 ####[facility] [address] [place], [address] Cholesterol in LDL [Mass/Vol] 105 mg/dL Normal 0-130 [facility] Comment on above: Performed By: #### L 506.1000, L500.4100, L501.9985, L500.4050, L502.0250 ####[facility] [address] [place], [address] Cholesterol in VLDL [Mass/Vol] 17 mg/dL Normal 5-40 [facility] Comment on above: Performed By: #### L 506.1000, L500.4100, L501.9985, L500.4050, L502.0250 ####[facility] [address] [place], [address] Triglyceride [Mass/Vol] 83 mg/dL Normal [facility] Comment on above: Result Comment: The drugs N-Acetylcysteine and Metamizole may falsely depress this assay. Serum Triglycerides Reference Interval Normal <150 mg/dL Borderline high 150 - 199 mg/dL High 200 - 499 mg/dL Very High > or = 500 mg/dL Performed By: #### L 506.1000, L500.4100, L501.9985, L500.4050, L502.0250 ####[facility] [address] [place], [address] Low density lipoprotein (LDL ) cholesterol measurementOrdered By: Ricki Griffin on 12-07-2024 Cholesterol in LDL [Mass/Vol] 105 mg/dL 0-130 [facility] Microalb:Creat Ratio,Random URon 12-07-2024 Creatinine [Mass/Vol] 58.70 mg/dL Normal NO RAN GE EST. [facility] Comment on above: Performed By: #### L 506.1000, L500.4100, L501.9985, L500.4050, L502.0250 ####[facility] [address] [place], [place], [address] MALB:CRE 9.7 mg/g CRE Normal <30 mg/g CRE [facility] Comment on above: Performed By: #### L 506.1000, L500.4100, L501.9985, L500.4050, L502.0250 ####[facility] [address] [place], [address] MICROALBUMIN,UR 5.7 mg/L Normal NO RANGE EST. [facility] Comment on above: Performed By: #### L 506.1000, L500.4100, L501.9985, L500.4050, L502.0250 ####[facility] [address] [place], [place], [address] Potassium measurementOrdered By: Ricki Griffin on 12-07-2024 Potassium [Moles/Vol] 4.2 mmol/L 3.5-5.1 [facility] Serum anion gap measurementO rdered By: Ricki Griffin on 12-07-2024 Anion gap [Moles/Vol] 7 mmol/L 5-15 [facility] Serum globulin measurementOr dered By: Ricki Griffin on 12-07-2024 Globulin (S) [Mass/Vol] 3.3 g/dL 2.2-4.2 [facility] Serum or plasma alanine herrera otransferase (ALT) measurementOrdered By: Ricki Griffin on 12-07-2024 ALT [Catalytic activity/Vol] 23 U/L 13-56 [facility] Serum or plasma albumin virgie urement (mass/volume)Ordered By: Ricki Griffin on 12-07-2024 Albumin [Mass/Vol] 3.6 g/dL 3.2-5.0 [facility] Serum or plasma alkaline sherri sphatase measurementOrdered By: Ricki Griffin on 12-07-2024 ALP [Catalytic activity/Vol] 72 U/L 45-117 [facility] Serum or plasma calcium virgie urement (mass/volume)Ordered By: Ricki Griffin on 12-07-2024 Calcium [Mass/Vol] 9.2 mg/dL 8.5-10.1 [facility] Serum or plasma cholesterol measurement (mass/volume)Ordered By: Ricki Griffin on 12-07-2024 Cholesterol [Mass/Vol] 172 mg/dL <200 [facility] Comment on above: <200 mg/dL Desirable 200-240 mg/dL Borderline >240 mg/dL High Risk Serum or plasma creatinine m easurement (mass/volume)Ordered By: Ricki Griffin on 12-07-2024 Creatinine [Mass/Vol] 0.71 mg/dL 0.55-1.02 [facility] Comment on above: The validity of the calculated GFR & GFRAA in patients over 70 years has not been determined. Clinical correlation is essential. Serum or plasma urea nitroge n measurement (mass/volume)Ordered By: Ricki Griffin on 12-07-2024 Urea nitrogen [Mass/Vol] 18 mg/dL 7-18 [facility] Sodium levelOrdered By: Froylan Griffin on 12-07-2024 Sodium [Moles/Vol] 139 mmol/L 136-145 [facility] Total proteinOrdered By: Godfrey Griffin on 12-07-2024 Protein [Mass/Vol] 6.9 g/dL 6.4-8.2 [facility] Triglycerides measurementOrd ered By: Ricki Griffin on 12-07-2024 Triglyceride [Mass/Vol] 83 mg/dL <199 [facility] Comment on above: The drugs N-Acetylcy steine and Metamizole may falsely depress this assay.Serum Triglycerides Reference Interval Normal <150 mg/dL Borderline high 150 - 199 mg/dL High 200 - 499 mg/dL Very High > or = 500 mg/dL Urine creatinine measurement (mass/volume)Ordered By: Ricki Griffin on 12-07-2024 Creatinine (U) [Mass/Vol] 58.70 mg/dL NO RANGE EST. [facility] Very low density lipoprotein (VLDL) cholesterol measurementOrdered By: Ricki Griffin on 12-07-2024 Very low density lipoprotein (VLDL) cholesterol measurement 17 mg/dL 5-40 [facility] Vitamin D,25 Hydroxyon 12-07 Vitamin D 25-OH 61.9 ng/mL Normal [facility] Comment on above: Result Comment: Stephanie min D 25(OH) Status Range Deficiency <20 ng/mL (50nmol/L) Insufficiency 20 - 30 ng/mL (50 - 75 nmol/L) Sufficiency 30 - 100 ng/mL (75 - 250 nmol/L) Toxicity >100 ng/mL (>250 nmol/L) Performed By: #### L 506.1000, L500.4100, L501.9985, L500.4050, L502.0250 ####[facility] [address] [place], [address] BD DXA - AXIAL SKELETONon BD DXA - AXIAL SKELETON * * *Final Repor t* * * DATE OF EXAM: Nov 19 2024 3:47PM [facility] 0804 - BD DXA - AXIAL SKELETON / PROCEDURE REASON: multiple diagnoses * * * * Physician Interpretation * * * * EXAMINATION: DXA BONE DENSITOMETRY BD DXA - AXIAL SKELETON, BD DXA TRABECLR BONE SCORE (TBS) PATIENT DEMOGRAPHICS: Age: 64 years, Gender: Female SCANNER INFORMATION: DXA Model: Pressly - [employer] C [id number] Date Scanned: 11/19/2024 3:47 PM CLINICAL HISTORY: [...] had a previous bone density in the [facility] or the previous bone density was performed on a different DXA machine (new, updated model or different location) within the [facility]. VERTEBRAL FRACTURE ASSESSMENT Not performed. TRABECULAR [...] FOR MORE INFORMATION ABOUT DIAGNOSIS AND TREATMENT: [facility] Center for Osteoporosis and Metabolic Bone Disease:? www.ccf.org/liban muñiz/leonardo National Osteoporosis Foundation:? www.nof.org International Society of Clinical Densitometry www.iscd.org [employer] Consultant: HERNANDO Transcribe Date/Time: Nov 23 2024 6:04A Dictated by : MIRIAM KUMARI MD This examination was interpreted and the report reviewed and electronically signed by: MIRIAM KUMARI MD on Nov 23 2024 6:06AM EST [id number] CN -1.5 Normal [facility] BD DXA TRABECLR BONE SCORE ( TBS)on 11-19-2024 BD DXA TRABECLR BONE SCORE (TBS) * * *Final Report* * * DATE OF EXAM: Nov 19 2024 3:47PM [facility] 0801 - BD DXA TRABECLR BONE SCORE (TBS) / PROCEDURE REASON: multiple diagnoses * * * * Physician Interpretation * * * * EXAMINATION: DXA BONE DENSITOMETRY BD DXA - AXIAL SKELETON, BD DXA TRABECLR BONE SCORE (TBS) PATIENT DEMOGRAPHICS: Age: 64 years, Gender: Female SCANNER INFORMATION: DXA Model: Pressly - [employer] C [id number] Date Scanned: 11/19/2024 3:47 PM CLINICAL HISTORY: [...] had a previous bone density in the [facility] or the previous bone density was performed on a different DXA machine (new, updated model or different location) within the [facility]. VERTEBRAL FRACTURE ASSESSMENT Not performed. TRABECULAR [...] FOR MORE INFORMATION ABOUT DIAGNOSIS AND TREATMENT: [facility] Center for Osteoporosis and Metabolic Bone Disease:? www.ccf.org/liban s/osteo National Osteoporosis Foundation:? www.nof.org International Society of Clinical Densitometry www.iscd.org [employer] E[employer] Consultant: HERNANDO Transcribe Date/Time: Nov 23 2024 6:04A Dictated by : MIRIAM KUMARI MD This examination was interpreted and the report reviewed and electronically signed by: MIRIAM KUMARI MD on Nov 23 2024 6:06AM EST [id number] CN -1.5 Normal [facility] CNOVon 09-21-2024 CNOV Office Visit (OBGYWM) VISHAL GEORGE ([id number]) 1960 F Date Time Provider Department 09/21/24 3:30 PM ARACELIS MCCORMICK OBGYWM During your visit today, we recorded the following information about you: Blood pressure Weight Height 140/78 78.5 kg 1.562 m Aracelis Mccormick MD 09/21/2024 3:54 PM Signed Extension Service Supervisor offered: Patient declinesLedy Trevino is a 64 [...] L2 SAB1 IAB0 Ectopic0 Multiple0 Live Births0 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 As applicable, any other physician, advance practice provider, medical student, or other health professional student that will be observing or involved in the sensitive examination for educational or training purposes was discussed with the Patient or Authorized Civil Laboratory Technician. The Patient or Authorized Civil Laboratory Technician has agreed to proceed with the sensitive [...] external genitalia normal, normal Bartholin's glands, urethra, [place]'s glands, no vulvar lesions, no cervical lesions, good vaginal support, physiologic discharge present, normal appearing perineal body and perianal region BIMANUAL: uterus normal size, shape and consistency, no adnexal masses, and non-tender RECTOVAGINAL: deferred. NEURO: alert and o (more content not included)... Normal [facility] HIGH RISK HUMAN PAPILLOMA ASHANTI (HPV), PCR FOR DETECTION AND GENOTYPINGon 09-21-2024 HPV 16 Ag Ql (Unsp spec) Not detected Normal Not detected [facility] Comment on above: Order Comment: Speci men Type: FLUID SPECIMEN Ordering Facility: [facility] Address: [address] [place] [address] Performed By: #### H PVHRT #### [facility] CLIA [id number] [address] [place] [address] [place] HPV 18 Ag Ql (Unsp spec) Not detected Normal Not detected [facility] Comment on above: Order Comment: Speci men Type: FLUID SPECIMEN Ordering Facility: [facility] Address: [address] [place] [address] Performed By: #### H PVHRT #### [facility] CLIA [id number] [address] [place] [address] [place] HPV 31+33+35+39+45+51+52+56+58 +59+66+68 DNA FERCHO+probe Ql (Cvx) Not detected Normal Not detected [facility] Comment on above: Order Comment: Speci men Type: FLUID SPECIMEN Ordering Facility: [facility] Address: [address] [place] [address] Result Comment: High Risk HPV Other Type includes HPV types 31, 33, 35, 39, 45, 51, 52, 56, 58, 59, 66 and 68. Performed By: #### H PVHRT #### [facility] CLIA [id number] [address] [place] [address] [place] PAP TESTon 09-21-2024 ADEQUACY Satisfactory for interpretation. Normal [facility] Comment on above: Order Comment: Speci men Type: FLUID SPECIMEN Ordering Facility: [facility] Address: [address] [place] [address] Performed By: #### L [id number] #### [facility] CLIA [id number] [address] [place] [address] [place] CASE REPORT Normal [facility] Comment on above: Order Comment: Speci men Type: FLUID SPECIMEN Ordering Facility: [facility] Address: [address] [place] [address] Result Comment: Gyne cologic Cytology Report Case: [id number] Authorizing Provider: Aracelis Mccormick, Collected: 09/21/2024 03:58 PM MD Ordering Location: OB/Gynecology Received: 09/21/2024 04:31 PM First Screen: Shira Roque, CT, ASCP Specimen: Pap Test, ThinPrep, Cervix Performed By: #### L [id number] #### [facility] CLIA [id number] [address] [place] [address] [place] CLINICAL HISTORY, CYTOLOGY, SLOT SERVICE SPECIALIST Post Menopausal Normal [facility] Comment on above: Order Comment: Speci men Type: FLUID SPECIMEN Ordering Facility: [facility] Address: [address] [place] [address] Performed By: #### L [id number] #### [facility] CLIA [id number] [address] [place] [address] [place] CYTOLOGY PAP OTHER INTERPRETATION Atrophic specimen. Normal [facility] Comment on above: Order Comment: Speci men Type: FLUID SPECIMEN Ordering Facility: [facility] Address: [address] [place] [address] Performed By: #### L [id number] #### [facility] CLIA [id number] [address] [place] [address] [place] FINAL PERFORMING LAB Normal [facility] Comment on above: Order Comment: Speci men Type: FLUID SPECIMEN Ordering Facility: [facility] Address: [address] [place] [address] Result Comment: Tech nical component, edging machine feeder screening performed at [facility], [address] [place], [place] [address] CLIA# [id number] Diagnostic interpretation performed at [facility], [address] [place], [place] [address] CLIA# [id number] Distillery Miller: Bart Madsen M.D. Performed By: #### L [id number] #### [facility] CLIA [id number] [address] [place] [address] [place] INTERPRETATION, CYTOLOGY, SLOT SERVICE SPECIALIST Normal [facility] Comment on above: Order Comment: Speci men Type: FLUID SPECIMEN Ordering Facility: [facility] Address: [address] [place] [address] Result Comment: Nega tive for intraepithelial lesion or malignancy. Performed By: #### L [id number] #### [facility] CLIA [id number] [address] [place] [address] [place] PAP DISCLAIMER COMMENT The Pap Smear is a screening test for cervical cancer. False negative results occur with all screening tests, emphasizing the need for rescreening at recommended intervals, and clinical correlation. Normal [facility] Comment on above: Order Comment: Speci men Type: FLUID SPECIMEN Ordering Facility: [facility] Address: [address] [place] [address] Performed By: #### L [id number] #### [facility] CLIA [id number] [address] [place] [address] [place] PAP RN PROGRESSIVE CARE UNIT COMMENT This specimen has been analyzed by the [employer] Imaging System, an automated imaging and review system, which assists the laboratory in evaluating cells on ThinPrep Pap tests. Following automated imaging, selected bautista from every slide are reviewed by a edging machine feeder. Normal [facility] Comment on above: Order Comment: Speci men Type: FLUID SPECIMEN Ordering Facility: [facility] Address: [address] [place] [address] Performed By: #### L [id number] #### [facility] CLIA [id number] [address] [place] [address] [place] [address] [place] DBT Breast - [...] Ya Lanza M.D. Electronically signed on: 09/16/2024 [employer] E[employer] Consultant: PRIYANKA Crowerinataliia Date/Time: Sep 16 2024 7:47A Dictated by: ZULMA LUCERO, This examination was interpreted and the report reviewed and electronically signed by: YA LANZA MD on Sep 16 2024 11:18AM [facility] DIVISION OF RADIOLOGY * * *Final Report* * * DATE OF EXAM: Sep 16 2024 8:00AM [facility] 0582 - JON SCREENING W JOSHUA / PROCEDURE REASON: Encounter for screening mammogram for malignant neoplasm of breast * * * * Physician Interpretation * * * * RESULT: [facility] [address] [id number] #[id number] - JON SCREENING W JOSHUA HISTORY: Patient [...] the prior study. DIVISION OF RADIOLOGY Provider, [facility] [place] - 09/16/2024 * * *Final Report* * * DATE OF EXAM: Sep 16 2024 8:00AM W 0582 - [facility] SCREENING W JOSHUA / PROCEDURE REASON: Encounter for screening mammogram for malignant neoplasm of breast * * * * Physician Interpretation * * * * RESULT: [place] [address] #[id number] - [facility] SCREENING W JOSHUA HISTORY: Patient is [...] Ya Lanza M.D. Electronically signed on: 09/16/2024 [employer] E[employer] Consultant: PRIYANKA Transcrinataliia Date/Time: Sep 16 2024 7:47A Dictated by: ZULMA LUCERO, This examination was interpreted and the report reviewed and electronically signed by: YA LANZA MD on Sep 16 2024 11:18AM EST [facility] Radiology Study observation (narrative) [facility] DBT Breast - bilateral scree ningOrdered By: Jorge Provider on 09-16-2024 [facility] JON SCREENING W TOMOon 09-16 JON SCREENING W JOSHUA * * *Final Report* * * DATE OF EXAM: Sep 16 2024 8:00AM [id number] [id number] - JON SCREENING W JOSHUA / PROCEDURE REASON: Encounter for screening mammogram for malignant neoplasm of breast * * * * Physician Interpretation * * * * RESULT: [address] [address] [place] [address] #[id number] - JON SCREENING W JOSHUA HISTORY: Patient [...] Ya Lanza M.D. Electronically signed on: 09/16/2024 [employer] Consultant: PRIYANKA Transcribe Date/Time: Sep 16 2024 7:47A Dictated by: ZULMA LUCERO, This examination was interpreted and the report reviewed and electronically signed by: YA LANZA MD on Sep 16 2024 11:18AM EST [id number] CN Normal [facility] CNOVon 12-27-2023 CNOV [facility] VISHAL GEORGE ([id number]) 1960 F Date Time Provider Department 12/27/23 12:00 PM SHAY TERESA [facility] During your visit today, we recorded the following information about you: Pulse Blood pressure Weight 71/minute 132/67 73.5 kg Shay Teresa APRN.MELODY 12/27/2023 12:21 PM Signed START taking 2 [...] or concern, you can call me at [phone]. Shay Teresa APRN.MELODY 12/27/2023 12:33 PM Signed Heart and Vascular [facility] OUTPATIENT VISIT DATE December [...] of ventricular tachycardia. She was transferred to [facility] for possible ICD placement. Electrophysiology was consulted. [...] use inhaler daily. She follows with a parts washer in [place]. Does not weigh every day. Monitors her sodium intake. Does not monitor fluids as well. Weights have been stable at 162-164 lbs. States she had an echocardiogram in September in [place] and reports an ejection fraction of 45%. She was told by her parts washer if it was less than 35% she [...] with [facility] Clinic and with cardiology in [place]. She is to call the office next [...] once GDMT is optimized -repeat echo in [place] shows 45% from September 2023 Per the patient- no outside records present during visit 3. Hyperlipidemia (more content not included)... Normal [facility] Basophil percentageOrdered B y: Ricki Griffin on 11-13-2023 Bilirubin [Mass/Vol] 0.40 mg/dL 0.20-1.[address] [facility] Comment on above: For patients on eltr ombopag therapy, use of Dimension [place] TBIL is not recommended. Chloride [Moles/Vol] 110 mmol/L 98-[address] [facility] Cholesterol [Mass/Vol] 137 mg/dL <200 [facility] Comment on above: <200 mg/dL Desirable 200-240 mg/dL Borderline >240 mg/dL High Risk Glucose [Mass/Vol] 117 mg/dL 74-106 [facility] Comment on above: Fasting Glucose resu lt from 100 to 125 mg/dL suggests IMPAIRED HOMEOSTASIS per A.D.A. criteria. Potassium [Moles/Vol] 4.8 mmol/L 3.5-5.1 [facility] Protein [Mass/Vol] 6.9 g/dL 6.4-8.2 [facility] Sodium [Moles/Vol] 139 mmol/L 136-145 [facility] Triglyceride [Mass/Vol] 52 mg/dL <199 [facility] Comment on above: The drugs N-Acetylcy steine and Metamizole may falsely depress this assay.Serum Triglycerides Reference Interval Normal <150 mg/dL Borderline high 150 - 199 mg/dL High 200 - 499 mg/dL Very High > or = 500 mg/dL Laboratory - Chemistry and C hemistry - challengeOrdered By: Ricki Griffin on 11-13-2023 Albumin/Globulin [Mass ratio] 1.2 {ratio} 0.9-2.4 [facility] ALP [Catalytic activity/Vol] 72 U/L 45-117 [facility] ALT [Catalytic activity/Vol] 28 U/L 13-56 [facility] Cholesterol in HDL (Body fld) [Mass/Vol] 52 mg/dL >40 [facility] Comment on above: The drugs N-Acetylcy steine and Metamizole may falsely depress this assay. Reference Range HDL <40 mg/dL Low HDL Cholesterol HDL >or= 60 mg/dL High HDL Cholesterol Cholesterol in LDL (Body fld) [Moles/Vol] 75 mg/dL 0-130 [facility] Cholesterol in VLDL Calc [Moles/Vol] 10 mg/dL 5-40 [facility] CO2 [Moles/Vol] 27.0 mmol/L 21.0-32.0 [facility] Globulin (S) [Mass/Vol] 3.2 g/dL 2.2-4.2 [facility] Urea nitrogen/Creatinine [Mass ratio] 26.3 mg/mg 10-20 [facility] No Panel InformationOrdered By: Ricki Griffin on 11-13-2023 Estimated GFR (MDRD) Amer 94 mL/min >60 [facility] Comment on above: GFR Calc Estimated GFR (MDRD) Non-Af Amer 78 mL/min >60 [facility] Comment on above: Non- GFR Calc Vitamin D 25-Hydroxy 62.7 ng/mL [facility] Comment on above: Vitamin D 25(OH) Sta tus Range Deficiency <20 ng/mL (50nmol/L) Insufficiency 20 - 30 ng/mL (50 - 75 nmol/L) Sufficiency 30 - 100 ng/mL (75 - 250 nmol/L) Toxicity >100 ng/mL (>250 nmol/L) Serum or plasma calcium virgie urement (mass/volume)Ordered By: Ricki Griffin on 11-13-2023 Calcium [Mass/Vol] 9.4 mg/dL 8.5-10.1 [facility] Serum or plasma creatinine m easurement (mass/volume)Ordered By: Ricki Griffin on 11-13-2023 Creatinine [Mass/Vol] 0.80 mg/dL 0.55-1.02 [facility] Comment on above: The validity of the calculated GFR & GFRAA in patients over 70 years has not been determined. Clinical correlation is essential. Serum or plasma urea nitroge n measurement (mass/volume)Ordered By: Ricki Griffin on 11-13-2023 Urea nitrogen [Mass/Vol] 21 mg/dL 7-18 [facility] Thin prep Papanicolaou smear with manual screeningOrdered By: Ricki Griffin on 11-13-2023 Thin prep Papanicolaou smear with manual screening 3.7 g/dL 3.2-5.0 [facility] Thin prep Papanicolaou smear with manual screening 16 U/L 15-37 [facility] Thin prep Papanicolaou smear with manual screening 2 5-15 [facility] Thin prep Papanicolaou smear with manual screening 5.1 mg/L NO RANGE EST. [facility] Urine albumin/creatinine rat io for detection of microalbuminuriaOrdered By: Ricki Griffin on 11-13-2023 Albumin/Creatinine DL <= 1.0 mg/L (24H U) [Ratio] 6.1 mg/g CRE <30 [facility] Urine creatinine measurement (mass/volume)Ordered By: Ricki Griffin on 11-13-2023 Creatinine (U) [Mass/Vol] 83.70 mg/dL NO RANGE EST. [facility] Whole blood hemoglobin A1c/t otal hemoglobin ratio (mass fraction)Ordered By: Ricki Griffin on 11-13-2023 HbA1c (Bld) [Mass fraction] 5.4 % 3.8-5.6 [facility] Comment on above: Normal < 5.7 % Predi abetic 5.7 - 6.4 % Diabetic >or= 6.5 % Please note range changes. JAZMYNEOVon 07-12-2023 [facility] Office [facility] VISHAL GEORGE ([id number]) 1960 F Date Time Provider Department 07/12/23 12:00 PM SHAY TERESA [facility] During your visit today, we recorded the following information about you: Pulse Blood pressure Weight 69/minute 139/76 74 kg Shay Teresa APRN.CNP 07/12/2023 12:38 PM Signed Heart and Vascular [facility] OUTPATIENT VISIT DATE July 12, 2023 OUTPATIENT VISIT TYPE ESTABLISHED PRIMARY CARE PHYSICIAN: TRUDY Rendon, INSIDE TECHNICAL SALES REPRESENTATIVE CHIEF COMPLAINT: Patient presents with: Breathing Problem [...] of ventricular tachycardia. She was transferred to [facility] for possible ICD placement. Electrophysiology was consulted. Recommended life vest and repeat echo in 3 months. Cardiology also started patient on carvedilol, jardiance and aldactone along with entresto. Today, the patient reports feeling very well. She follows with a parts washer in [place]. Every once in awhile she feels a [...] once GDMT is optimized -repeat echo in [place] shows 15% Per the patient- no outside records present during visit 3. Hyperlipidemia, unspecified hyperlipidemia type - ICD9: 272.4, ICD10: E78.5 -continue statin therapy 4. Primary hypertension - ICD9: 401.9, ICD10: I10 -BP suboptimal during visit 139/76 mmHg -encourage DASH/low sodium diet -encourage exercise with rest breaks as needed -goal BP <130/80 mmHg -continue home BP monitoring 5. 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 - ICD9: 414.01, ICD10: I25.10 -stable -s/p [facility] on 02/25 -on aspirin and BB Follow up appointment with Cardiology in Dr. Moe [place] to be scheduled. PAST MEDICAL HISTORY Diagnosis Date Cataract of left eye COPD (chronic obstructive pulmonary disease) (HCC) Dilated cardiomyopathy (HCC) 02/27/2023 Dysplasia of cervix, unspecified High cholesterol History of percutaneous cor (more content not included)... [facility] 06-07-2023 [facility] Office Visit ([facility]) VISHAL GEORGE ([id number]) 1960 F Date Time Provider Department 06/07/23 12:[address] [facility] During your visit today, we recorded the following information about you: Pulse Weight 66/minute 74.6 kg Shay Teresa APRN.CNP 06/07/2023 12:42 PM Signed Heart and Vascular [facility] OUTPATIENT VISIT DATE June [...] dilated cardiomyopathy, chronic obstructive pulmonary disease, s/p [facility] with stent placement on 02/25 revealing [...] of ventricular tachycardia. She was transferred to [facility] for possible ICD placement. Electrophysiology was consulted. [...] able. She states she has a primary parts washer at [place] in which she had an echocardiogram that she says ejection fraction was still at 15%. No results are in [facility] as the are from outside hospital. [...] once GDMT is optimized -repeat echo in [place] shows 15% Per the patient- no outside records present during visit 3. Hyperlipidemia, unspecified hyperlipidemia type - ICD9: 272.4, ICD10: E78.5 -continue statin therapy 4. Primary hypertension - ICD9: 401.9, ICD10: I10 -BP suboptimal during visit mmHg -encourage DASH/low sodium diet -encourage exercise with rest breaks as needed -goal BP <130/80 mmHg -continue home BP monitoring 5. 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 - ICD9: 414.01, ICD10: I25.10 -stable -s/p [facility] on 02/25 -on aspirin and BB Follow up appointment with Cardiology in Dr. Moe [place] to be scheduled. PAST MEDICAL HISTORY Diagnosis Date Cataract of left eye COPD (chronic obstructive pulmonary disease) (HCC) Dilated cardiomyopathy (HCC) 02/27/2023 Dysplasia of cervix, unspecified High cholesterol History of percutaneo (more content not included)... Normal [facility] Basophil percentageOrdered B y: Ricki Griffin on 05-03-2023 Bilirubin [Mass/Vol] 0.40 mg/dL 0.20-1.[address] [facility] Comment on above: For patients on eltr ombopag therapy, use of Dimension [place] TBIL is not recommended. Chloride [Moles/Vol] 106 mmol/L 98-[address] [facility] Cholesterol [Mass/Vol] 132 mg/dL <200 [facility] Comment on above: <200 mg/dL Desirable 200-240 mg/dL Borderline >240 mg/dL High Risk Glucose [Mass/Vol] 88 mg/dL 74-106 [facility] Potassium [Moles/Vol] 4.1 mmol/L 3.5-5.1 [facility] Protein [Mass/Vol] 6.8 g/dL 6.4-8.2 [facility] Sodium [Moles/Vol] 141 mmol/L 136-145 [facility] Triglyceride [Mass/Vol] 92 mg/dL <199 [facility] Comment on above: The drugs N-Acetylcy steine and Metamizole may falsely depress this assay.Serum Triglycerides Reference Interval Normal <150 mg/dL Borderline high 150 - 199 mg/dL High 200 - 499 mg/dL Very High > or = 500 mg/dL Laboratory - Chemistry and C hemistry - challengeOrdered By: Ricki Griffin on 05-03-2023 ALP [Catalytic activity/Vol] 78 U/L 45-117 [facility] ALT [Catalytic activity/Vol] 38 U/L 13-56 [facility] CO2 [Moles/Vol] 27.0 mmol/L 21.0-32.0 [facility] Globulin (S) [Mass/Vol] 3.0 g/dL 2.2-4.2 [facility] Urea nitrogen/Creatinine [Mass ratio] 11.3 mg/mg 10-20 [facility] No Panel InformationOrdered By: Ricki Griffin on 05-03-2023 Estimated GFR (MDRD) Amer 94 mL/min >60 [facility] Comment on above: GFR Calc Estimated GFR (MDRD) Non-Af Amer 78 mL/min >60 [facility] Comment on above: Non- GFR Calc Urine Microalbumin/Creatinine Ratio 7.6 mg/g CRE <30 [facility] Vitamin D 25-Hydroxy 59.7 ng/mL [facility] Comment on above: Vitamin D 25(OH) Sta tus Range Deficiency <20 ng/mL (50nmol/L) Insufficiency 20 - 30 ng/mL (50 - 75 nmol/L) Sufficiency 30 - 100 ng/mL (75 - 250 nmol/L) Toxicity >100 ng/mL (>250 nmol/L) Serum or plasma albumin virgie urement (mass/volume)Ordered By: Ricki Griffin on 05-03-2023 Albumin [Mass/Vol] 3.8 g/dL 3.2-5.0 [facility] Serum or plasma albumin/glob ulin mass ratioOrdered By: Ricki Griffin on 05-03-2023 Albumin/Globulin [Mass ratio] 1.3 {ratio} 0.9-2.4 [facility] Serum or plasma calcium virgie urement (mass/volume)Ordered By: Ricki Griffin on 05-03-2023 Calcium [Mass/Vol] 9.0 mg/dL 8.5-10.1 [facility] Serum or plasma cholesterol in HDL measurement (mass/volume)Ordered By: Ricki Griffin on 05-03-2023 Cholesterol in HDL [Mass/Vol] 44 mg/dL >40 [facility] Comment on above: The drugs N-Acetylcy steine and Metamizole may falsely depress this assay. Reference Range HDL <40 mg/dL Low HDL Cholesterol HDL >or= 60 mg/dL High HDL Cholesterol Serum or plasma cholesterol in VLDL measurement (mass/volume)Ordered By: Ricki Griffin on 05-03-2023 Cholesterol in VLDL [Mass/Vol] 18 mg/dL 5-40 [facility] Serum or plasma creatinine m easurement (mass/volume)Ordered By: Ricki Griffin on 05-03-2023 Creatinine [Mass/Vol] 0.80 mg/dL 0.55-1.02 [facility] Comment on above: The validity of the calculated GFR & GFRAA in patients over 70 years has not been determined. Clinical correlation is essential. Serum or plasma low density lipoprotein (LDL) cholesterol measurement (mass/volume)Ordered By: Ricki Griffin on 05-03-2023 Cholesterol in LDL [Mass/Vol] 70 mg/dL 0-130 [facility] Serum or plasma urea nitroge n measurement (mass/volume)Ordered By: Ricki Griffin on 05-03-2023 Urea nitrogen [Mass/Vol] 9 mg/dL 7-18 [facility] Thin prep Papanicolaou smear with manual screeningOrdered By: Ricki Griffin on 05-03-2023 Thin prep Papanicolaou smear with manual screening 17 U/L 15-37 [facility] Thin prep Papanicolaou smear with manual screening 8 5-15 [facility] Thin prep Papanicolaou smear with manual screening 5.1 mg/L NO RANGE EST. [facility] Urine creatinine measurement (mass/volume)Ordered By: Ricki Griffin on 05-03-2023 Creatinine (U) [Mass/Vol] 66.40 mg/dL NO RANGE EST. [facility] Absolute lymphocyte countOrd ered By: Shira Oglesby on 04-24-2023 Lymphocytes Auto (Unsp spec) [#/Vol] 1.07 10*3/uL 0.83-4.51 [facility] Basophil percentageOrdered B y: Shira Oglesby on 04-24-2023 Basophils/100 WBC (Bld) 0.7 % 0-1 [facility] Bilirubin [Mass/Vol] 0.90 mg/dL 0.20-1.[address] [facility] Comment on above: For patients on eltr ombopag therapy, use of Dimension [place] TBIL is not recommended. Chloride [Moles/Vol] 102 mmol/L 98-[address] [facility] Eosinophils/100 WBC (Bld) 0.2 % 0-5 [facility] Glucose [Mass/Vol] 170 mg/dL 74-106 [facility] Comment on above: Fasting Glucose resu lt greater than or equal to 126 mg/dL suggests DIABETES MELLITUS per A.D.A. criteria. Neutrophils (Bld) [#/Vol] 10.3 10*3/uL 2.0-7.7 [facility] Neutrophils/100 WBC (Bld) 84.4 % 47-70 [facility] Potassium [Moles/Vol] 3.9 mmol/L 3.5-5.1 [facility] Protein [Mass/Vol] 8.2 g/dL 6.4-8.2 [facility] Sodium [Moles/Vol] 136 mmol/L 136-145 [facility] WBC (Bld) [#/Vol] 12.2 10*3/uL 4.4-11.0 [facility] Blood erythrocytes count (nu mber/volume)Ordered By: Shira Oglesby on 04-24-2023 RBC (Bld) [#/Vol] 4.85 10*6/uL 4.2-5.4 [facility] Blood hemoglobin measurement (mass/volume)Ordered By: Shira Oglesby on 04-24-2023 Hemoglobin (Bld) [Mass/Vol] 13.9 g/dL 12.0-15.0 [facility] Blood lymphocytes/100 leukoc ytesOrdered By: Shira Oglesby on 04-24-2023 Lymphocytes/100 WBC (Bld) 8.8 % 19-41 [facility] Blood monocytes/100 leukocyt esOrdered By: Shira Oglesby on 04-24-2023 Monocytes/100 WBC (Bld) 5.3 % 0-10 [facility] Blood platelet mean volumeOr dered By: Shira Oglesby on 04-24-2023 Platelet mean volume (Bld) [Entitic vol] 9.8 fL 6.2-12.0 [facility] Determination of erythrocyte mean corpuscular volume (MCV)Ordered By: Shira Oglesby on 04-24-2023 MCV (RBC) [Entitic vol] 87.0 fL 81-99 [facility] Direct bilirubinOrdered By: Shira Oglesby on 04-24-2023 Bilirubin.direct [Mass/Vol] 0.23 mg/dL 0.00-0.30 [facility] Hematocrit Auto (Bld) [Volum e fraction]Ordered By: Shira Oglesby on 04-24-2023 Hematocrit (Bld) [Volume fraction] 42.2 % 37-47 [facility] Laboratory - Chemistry and C hemistry - challengeOrdered By: Shira Oglesby on 04-24-2023 ALP [Catalytic activity/Vol] 92 U/L 45-117 [facility] ALT [Catalytic activity/Vol] 82 U/L 13-56 [facility] CO2 [Moles/Vol] 20.0 mmol/L 21.0-32.0 [facility] Globulin (S) [Mass/Vol] 3.9 g/dL 2.2-4.2 [facility] Lipase [Catalytic activity/Vol] 28 U/L 13-75 [facility] Comment on above: Please note:LIPASE r evised reference range effective 23. New Lipase methodology. Expected to produce lower values than the previous assay method. NEW Reference Range: 13 - 75 U/L Urea nitrogen/Creatinine [Mass ratio] 16.3 mg/mg 10-20 [facility] Laboratory - Hematology and Cell countsOrdered By: Shira Oglesby on 04-24-2023 Erythrocyte distribution width (RBC) [Entitic vol] 40.6 fL 35.1-43.9 [facility] Erythrocyte distribution width (RBC) [Ratio] 12.9 % 11.6-14.6 [facility] Immature granulocytes/100 WBC (Bld) 0.600 % 0.0-0.9 [facility] Comment on above: IG% - Immature Granu locytes (promyelocytes, myelocytes and metamyelocytes) > 1% indicates that a LEFT SHIFT is Present. MCH (RBC) [Entitic mass] 28.7 pg 27.0-32.0 [facility] Nucleated RBC/100 WBC (Bld) [Ratio] 0 % 0-5 [facility] MCHC Auto (RBC) [Mass/Vol]Or dered By: Shira Oglesby on 04-24-2023 MCHC (RBC) [Mass/Vol] 32.9 g/dL 32-36 [facility] No Panel InformationOrdered By: Shira Oglesby on 04-24-2023 Estimated Creatinine Clearance Calc 37.88 ml/min [facility] Estimated GFR (MDRD) Amer 54 mL/min >60 [facility] Comment on above: GFR Calc Estimated GFR (MDRD) Non-Af Amer 45 mL/min >60 [facility] Comment on above: Non- GFR Calc Troponin I High Sensitivity 9 pg/mL 3.0-54.0 [facility] Comment on above: Please Note: New [place] t Units and Gender Specific Reference Ranges. For more information see Policy Stat Procedure [place] High Sensitivity Troponin (TNIH) and attachments. Platelets bldOrdered By: Karyn Oglesby on 04-24-2023 Platelets (Bld) [#/Vol] 406 10*3/uL 150-450 [facility] Serum or plasma albumin virgie urement (mass/volume)Ordered By: Shira Oglesby on 04-24-2023 Albumin [Mass/Vol] 4.3 g/dL 3.2-5.0 [facility] Serum or plasma calcium virgie urement (mass/volume)Ordered By: Shira Oglesby on 04-24-2023 Calcium [Mass/Vol] 10.1 mg/dL 8.5-10.1 [facility] Serum or plasma creatinine m easurement (mass/volume)Ordered By: Shira Oglesby on 04-24-2023 Creatinine [Mass/Vol] 1.29 mg/dL 0.55-1.02 [facility] Comment on above: The validity of the calculated GFR & GFRAA in patients over 70 years has not been determined. Clinical correlation is essential. Serum or plasma urea nitroge n measurement (mass/volume)Ordered By: Shira Oglesby on 04-24-2023 Urea nitrogen [Mass/Vol] 21 mg/dL 7-18 [facility] Thin prep Papanicolaou smear with manual screeningOrdered By: Shira Oglesby on 04-24-2023 Thin prep Papanicolaou smear with manual screening 42 U/L 15-37 [facility] Thin prep Papanicolaou smear with manual screening 14 5-15 [facility] CNPNon 03-25-2023 MELODYN Telephone (AGCARDPOB) ARIELVISHAL ARSHAD ([id number]) 1960 F Date Time Provider Department 03/25/23 MELISSA KOROMA AGCARDPOB During your visit today, we recorded the [...] the Lifevest has been declined. 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 [[id number]] Prescriptions as of [...] 03/25/2023 Noted Resolved Coronary artery disease involving [place] howard*09/10/2012 Unspecified essential hypertension [I10] 09/10/2012 08/29/2016 [...] Encounter Status:Closed by MELISSA KOROMA on 03/25/23 [facility] CNPN Telephone (AGCARDPOB) VISHAL GEORGE ([id number]) 1960 F Date Time Provider Department 03/25/23 [...] Signed Vinay Lovell MD You; Melissa Koroma APRN.INSIDE TECHNICAL SALES REPRESENTATIVE 11 hours ago (8:37 PM) I did not feel that a LifeVest was indicated Alessandra Damon RN 03/26/2023 8:17 AM Signed Pt notified and voices understanding. KARIN Galvan RN 03/26/2023 8:32 AM Signed I faxed this note to Dr Reeves's office at [phone]. KARIN Galvan As of Date: 03/25/2023 Noted Allergy Reaction ADHESIVE TAPE (ROSINS) 09/10/2012 2 - Rash Date Reviewed: 03/07/2023 Reviewed by: Shay Teresa APRN.INSIDE TECHNICAL SALES REPRESENTATIVE - Fully Assessed Reason for Visit: Patient Question [1477] Prescriptions as of 03/26/2023 - furosemide (LASIX) [...] 03/25/2023 Noted Resolved Coronary artery disease involving [place] howard*09/10/2012 Unspecified essential hypertension [I10] 09/10/2012 08/29/2016 [...] Encounter Status:Closed by ALESSANDRA DAMON on 03/26/23 [facility] CNOVon 03-07-2023 CN [facility] VISHAL GEORGE ([id number]) 1960 F Date Time Provider Department 03/07/23 10:[address] [facility] During your visit today, we recorded the following information about you: Pulse Blood pressure Weight 86/minute 116/64 69.9 kg Shay Teresa APRN.CNP 03/07/2023 11:18 AM Signed Heart and Vascular [facility] OUTPATIENT VISIT DATE March 07, 2023 OUTPATIENT VISIT TYPE NEW PRIMARY CARE PHYSICIAN: Ricki Griffin, TRUDY, MELODY REFERRING PHYSICIAN: No referring provider defined [...] of ventricular tachycardia. She was transferred to [facility] for possible ICD placement. Electrophysiology was consulted. [...] BP monitoring 5. 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 - ICD9: 414.01, ICD10: I25.10 -stable -s/p [facility] on 02/25 -on aspiri (more content not included)... Normal [facility] Basic metabolic 2000 panelon 03-01-2023 Anion gap [Moles/Vol] 12 mmol/L Normal 9-18 [facility] Comment on above: Order Comment: Speci men Type: BLOOD SPECIMEN Ordering Facility: [facility] Address: [address] [address] Performed By: #### 2 4320-11, #### [facility] CLIA [id number] 1 [place] [address] [place] Calcium [Mass/Vol] 9.8 mg/dL Normal 8.5-10.2 [facility] Comment on above: Order Comment: Speci men Type: BLOOD SPECIMEN Ordering Facility: [facility] Address: [address] [address] Performed By: #### 2 4320-11, #### [facility] CLIA [id number] 1 [place] [address] [place] Chloride [Moles/Vol] 100 mmol/L Normal 97-105 [facility] Comment on above: Order Comment: Speci men Type: BLOOD SPECIMEN Ordering Facility: [facility] Address: [address] [address] Performed By: #### 2 4320-11, #### [facility] CLIA [id number] 1 [place] [address] [place] CO2 [Moles/Vol] 24 mmol/L Normal 22-30 [facility] Comment on above: Order Comment: Speci men Type: BLOOD SPECIMEN Ordering Facility: [facility] Address: [address] [address] Performed By: #### 2 4320-11, #### [facility] CLIA [id number] [address] [place] Creatinine [Mass/Vol] 0.69 mg/dL Normal 0.58-0.96 [facility] Comment on above: Order Comment: Juan Manuel cox Type: BLOOD SPECIMEN Ordering Facility: [facility] Address: [address] [address] Performed By: #### 2 4321-2, #### [facility] CLIA [id number] [address] ESTIMATED GLOMERULAR FILTRATION RATE 99 mL/min/1.73m??? Normal >=60 [facility] Comment on above: Order Comment: Juan Manuel cox Type: BLOOD SPECIMEN Ordering Facility: [facility] Address: [address] [place] [address] Result Comment: Elenita mated Glomerular Filtration Rate [...] reflect actual GFR. Performed By: #### 2 4321-2, #### [facility] CLIA [id number] [address] OF [facility] Glucose [Mass/Vol] 100 mg/dL High 74-99 [facility] Comment on above: Order Comment: Juan Manuel cox Type: BLOOD SPECIMEN Ordering Facility: [facility] Address: [address] [place] [address] Result Comment: The [place] Diabetes Association (ADA) provides guidance for cutoff [...] Standards of Medical Care in Diabetes 2016, [place] [employer] Association. Diabetes Care. 2016.39(Suppl 1). Performed By: #### 2 4320-2, #### [facility] CLIA [id number] [address] OF [facility] Potassium [Moles/Vol] 4.1 mmol/L Normal 3.7-5.1 [facility] Comment on above: Order Comment: Speci men Type: BLOOD SPECIMEN Ordering Facility: [facility] Address: [address] [place] [address] Performed By: #### 2 4320-11, #### [facility] CLIA [id number] [address] Sodium [Moles/Vol] 136 mmol/L Normal 136-144 [facility] Comment on above: Order Comment: Juan Manuel men Type: BLOOD SPECIMEN Ordering Facility: [facility] Address: [address] [place] [address] Performed By: #### 2 4320-11, #### [facility] CLIA [id number] [address] Urea nitrogen [Mass/Vol] 15 mg/dL Normal 7-21 [facility] Comment on above: Order Comment: Francescoi men Type: BLOOD SPECIMEN Ordering Facility: [facility] Address: [address] [place] [address] Performed By: #### 2 4320-11, #### [facility] CLIA [id number] [address] OF [facility] CNDSon 03-01-2023 CNDS HNO ID: [id number] Author: Oly Guzmán DO Service: Hospital Medicine [...] Guzmán DO Primary Care Provider: TRUDY Rendon, INSIDE TECHNICAL SALES REPRESENTATIVE My Medical Team Members: Treatment Team: Attending Provider: Oly Guzmán DO Primary Service: SHIV SANCHEZ LARGO Consulting: Lenka Magana MD MY CONDITION AT DISCHARGE: Stable REASON I WAS IN THE HOSPITAL: Evaluation due to episode of nonsustained vtach SUMMARY OF WHAT HAPPENED WHILE I WAS IN THE HOSPITAL: Patient was admitted for Evaluation due to episode of nonsustained vtach. This is a 62-year-old female with known congestive heart failure systolic and diastolic, CAD status post stent who presented to [facility] for severe nausea and vomiting and [...] with a plan to transition her to [facility]. The patient was a planned to be discharged from [place], but then she had a 34 run of V. tach/wide-complex tachycardia so decision was to transfer her to [facility] for ICD evaluation as that was being [...] with follow up with her PCP and parts washer. OTHER PROBLEMS/DIAGNOSIS: Principal Problem: NSVT (nonsustained ventricular tachycardia) (HCC) Active Problems: Coronary artery disease involving [place] coronary artery Hyperlipidemia Hypertension Nicotine use disorder, [...] CAD status post stent who presented to [facility] for severe nausea and vomiting and [...] with a plan to transition her to [facility]. The patient was a planned to be discharged from [place], but then she had a 34 run (more content not included)... Normal [facility] Amber 03-01-2023 MEÑO Telephone ([facility]) VISHAL GEORGE ([id number]) 1960 F Date Time Provider Department 03/01/[address] [facility] During your visit today, we recorded the following information about you: Inna Poole RN 03/01/2023 2:13 PM Signed Order received for OP follow up with the [facility] on 02/28/23. Met with patient at bedside. Instructed patient on the purpose of the [facility]. Provided with Zone sheet. Patient lives in [place] and prefers to follow up at the [facility]. Notified the Heart Failure Nurse Navigator of patient's request. She will contact the [facility]. Allergies As of Date: 03/01/2023 Noted Allergy Reaction ADHESIVE TAPE (ROSINS) 09/10/2012 2 - Rash Date Reviewed: 02/28/2023 Reviewed by: Héctor Oliver RN - Fully Assessed Reason for Visit: Orders [681] ak [facility] appt contact [Other] Prescriptions as of 03/01/2023 [...] 03/01/2023 Noted Resolved Coronary artery disease involving [place] howard*09/10/2012 Unspecified essential hypertension [I10] 09/10/2012 08/29/2016 [...] Encounter Status:Closed by INNA POOLE on 03/01/23 [facility] CNPN Telephone ([facility]) VISHAL GEORGE ([id number]) 1960 F Date Time Provider Department 03/01/23 TAYLOR GORDILLO During your visit today, we recorded the following information about you: Taylor Gordillo APRN.LEAF STICKER 03/01/2023 3:29 PM Signed Patient seen by [facility] Clinic nurse to discuss post-discharge follow-up in [facility] Clinic. Patient prefers [place] [facility], due to location. Patient information and plan for discharge home today sent to Eva Macias CNP ([facility]). 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 Follow Up [3601] Cmt: Contacted Eva Macias CNP ([facility]) Prescriptions as of 03/01/2023 - carvedilol (COREG) [...] 03/01/2023 Noted Resolved Coronary artery disease involving [place] howard*09/10/2012 Unspecified essential hypertension [I10] 09/10/2012 08/29/2016 [...] Encounter Status:Closed by TAYLOR GORDILLO on 03/01/23 [facility] CONSULT PROGon 03-01-2023 CONSULT PROG HNO ID: [id number] Author: Shellie Woods APRN.INSIDE TECHNICAL SALES REPRESENTATIVE Service: Cardiovascular Medicine Author Type: Nurse Practitioner Type: Consult Progress Note Filed: 03/01/2023 11:00 AM Note Text: CARDIOLOGY CONSULT PROGRESS NOTE CARDIOLOGY ATTENDING: Dr. Ryan/ Dr. Reeves is outpatient parts washer Date and Reason for initial consult: CHF [...] NSVT, recently had an echocardiogram performed at [place] with findings of EF of 15%. She [...] for opt (more content not included)... Normal [facility] Magnesium SerPl-mCncon 03-01 Magnesium [Mass/Vol] 2.1 mg/dL Normal 1.7-2.3 [facility] Comment on above: Order Comment: Juan Manuel cox Type: BLOOD SPECIMEN Ordering Facility: [facility] Address: [address] [address] Performed By: #### 2 4321-2, 58056-2 #### [facility] CLIA [id number] [address] [place] [address] [place] NURSING PROGon 03-01-2023 NURSING PROG HNO ID: [id number] Author: Inna Poole RN Service: Heart Failure Clinic Author Type: Registered Nurse Type: Nursing Progress Note Filed: 03/01/2023 2:08 PM Note Text: Order received for OP follow up with the [facility] on 02/28/23. Met with patient at bedside. Instructed patient on the purpose of the [facility]. Provided with Zone sheet. Patient lives in [place] and prefers to follow up at the [facility] in [place]. Notified Heart Failure nurse Navigator. She will contact [facility]. Normal [facility] Basic metabolic 2000 panelon 02-28-2023 Anion gap [Moles/Vol] 12 mmol/L Normal 9-18 [facility] Comment on above: Order Comment: Juan Manuel cox Type: BLOOD SPECIMEN Ordering Facility: [facility] Address: [address] [address] Performed By: #### 5 8410-2 #### [facility] CLIA [id number] [address] [place] Calcium [Mass/Vol] 9.7 mg/dL Normal 8.5-10.2 [facility] Comment on above: Order Comment: Juan Manuel cox Type: BLOOD SPECIMEN Ordering Facility: [facility] Address: [address] [address] Performed By: #### 5 8410-2 #### [facility] CLIA [id number] [address] OF [facility] Chloride [Moles/Vol] 99 mmol/L Normal 97-105 [facility] Comment on above: Order Comment: Speci men Type: BLOOD SPECIMEN Ordering Facility: [facility] Address: [address] [place] [address] Performed By: #### 5 8410-2 #### [facility] CLIA [id number] [address] OF [facility] CO2 [Moles/Vol] 25 mmol/L Normal 22-30 [facility] Comment on above: Order Comment: Speci men Type: BLOOD SPECIMEN Ordering Facility: [facility] Address: [address] [place] [address] Performed By: #### 5 8410-2 #### [facility] CLIA [id number] [address] Creatinine [Mass/Vol] 0.72 mg/dL Normal 0.58-0.96 [facility] Comment on above: Order Comment: Speci men Type: BLOOD SPECIMEN Ordering Facility: [facility] Address: [address] [place] [address] Performed By: #### 5 8410-2 #### [facility] CLIA [id number] [address] ESTIMATED GLOMERULAR FILTRATION RATE 96 mL/min/1.73m??? Normal >=60 [facility] Comment on above: Order Comment: Speci men Type: BLOOD SPECIMEN Ordering Facility: [facility] Address: [address] [place] [address] Result Comment: Elenita mated Glomerular Filtration Rate [...] GFR. Performed By: #### 5 8410-2 #### [facility] CLIA [id number] [address] [place] [address] [place] Glucose [Mass/Vol] 105 mg/dL High 74-99 [facility] Comment on above: Order Comment: Juan Manuel cox Type: BLOOD SPECIMEN Ordering Facility: [facility] Address: [address] [place] [address] Result Comment: The [place] Diabetes Association (ADA) provides guidance for cutoff [...] Standards of Medical Care in Diabetes 2016, [place] [employer] Association. Diabetes Care. 2016.39(Suppl 1). Performed By: #### 5 8410-2 #### [facility] CLIA [id number] [address] [place] [address] [place] Potassium [Moles/Vol] 3.9 mmol/L Normal 3.7-5.1 [facility] Comment on above: Order Comment: Juan Manuel cox Type: BLOOD SPECIMEN Ordering Facility: [facility] Address: [address] [place] [address] Performed By: #### 5 8410-2 #### [facility] CLIA [id number] [address] [place] [address] [place] Sodium [Moles/Vol] 136 mmol/L Normal 136-144 [facility] Comment on above: Order Comment: Juan Manuel kenny Type: BLOOD SPECIMEN Ordering Facility: [facility] Address: [address] [place] [address] Performed By: #### 5 8410-2 #### [facility] CLIA [id number] [address] [place] [address] [place] Urea nitrogen [Mass/Vol] 14 mg/dL Normal 7-21 [facility] Comment on above: Order Comment: Speci men Type: BLOOD SPECIMEN Ordering Facility: [facility] Address: [place] [address] Performed By: #### 5 8410-2 #### [facility] CLIA [id number] [address] STATES OF [facility] CONSULTon 02-28-2023 CONSULT HNO ID: [id number] Author: Anibal Ryan MD Service: Cardiovascular Medicine Author Type: Physician Type: Consults Filed: 02/28/2023 10:45 AM Note Text: CONSULT: CARDIOLOGY SERVICE SERVICE DATE: 02/28/2023 CONSULTING PHYSICIAN: Anibal Ryan PCP: TRUDY Rendon, INSIDE TECHNICAL SALES REPRESENTATIVE ATTENDING: Oly Guzmán DO REASON FOR CONSULT: congestive heart failure management Subjective CHIEF COMPLAINT: Ventricular tachyarrhythmia (HCC) [I47.20] HISTORY OF PRESENT ILLNESS: Ms. George is a 62 year old female with a history of ischemic and nonischemic, coronary disease status post prior PCI in 2006 and recent PCI few days ago, chronic tobacco and alcohol abuse, COPD, hypertension, hyperlipidemia who was transferred from [facility] for further evaluation of ventricular tachycardia. Patient reports she has a history of coronary disease and underwent PCI to the RCA back in 2006. Unfortunately, she did not subsequently follow-up regularly with a parts washer. He last had preserved LV function as [...] ejection fraction 15%. He was admitted to [facility] for further evaluation in light of [...] was otherwise asymptomatic. She was transferred to [facility] for further evaluation. Since admission to hospital, [...] once daily. (more content not included)... Normal [facility] CONSULT PROGon 02-28-2023 CONSULT PROG HNO ID: [id number] Author: Melissa Koroam APRN.INSIDE TECHNICAL SALES REPRESENTATIVE Service: Electrophysiology Author Type: Nurse Practitioner Type: [...] in the mid RCA status post PCI TELEMETRY/OIL DISPENSER: Sinus rhythm with occasional PVCs, rates 60s-70s, [...] nonsustained (HCC) (02/26/2023) Coronary artery disease involving [place] coronary artery (09/10/2012) Hyperlipidemia (08/29/2016) Hypertension (08/29/2016) Nicotine use disorder, F17.2 (02/26/2023) Acute on chronic combined systolic and diastolic CHF (congestive heart failure) (HCC) (02/26/2023) Tobacco abuse (02/26/2023) NICM (nonischemic cardiomyopathy) ([facility]) (02/27/2023) History of percutaneous coronary intervention (02/27/2023) Chronic systolic CHF (congestive heart failure) ([facility]) (02/28/2023) Ischemic cardiomyopathy (02/28/2023) Alcohol abuse (02/28/2023) The patient has a history of CAD, underwent PCI/stent to RCA in 2006, had preserved LV systolic function at that time and also in 2012 by echocardiogram. However she recently established with a new parts washer, echocardiogram 02/21/2023 revealed new diagnosis of shamar (more content not included)... Normal [facility] - Microbiology an d Antimicrobial susceptibilityOrdered By: Dr. Arndt on 02-28-2023 Bacteria identified Cx Nom (Bld) No growth in 5 days. [facility] Bacteria identified Cx Nom (Bld) No growth in 5 days. [facility] Magnesium SerPl-mCncon 02-28 Magnesium [Mass/Vol] 2.0 mg/dL Normal 1.7-2.3 [facility] Comment on above: Order Comment: Speci kenny Type: BLOOD SPECIMEN Ordering Facility: [facility] Address: [address] [place] [address] Performed By: #### 2 4321-2, 58503-4 #### [facility] CLIA [id number] [address] [place] [address] [place] Basic metabolic 2000 panelon 02-27-2023 Anion gap [Moles/Vol] 12 mmol/L Normal 9-18 [facility] Comment on above: Order Comment: Juan Manuel cox Type: BLOOD SPECIMEN Ordering Facility: [facility] Address: [address] [place] [address] Performed By: #### 2 4321-2 #### [facility] CLIA [id number] [address] [place] [address] [place] Calcium [Mass/Vol] 9.9 mg/dL Normal 8.5-10.2 [facility] Comment on above: Order Comment: Speci kenny Type: BLOOD SPECIMEN Ordering Facility: [facility] Address: [address] [address] Performed By: #### 2 4321-2 #### [facility] CLIA [id number] [address] [place] [address] [place] Chloride [Moles/Vol] 100 mmol/L Normal 97-105 [facility] Comment on above: Order Comment: Speci men Type: BLOOD SPECIMEN Ordering Facility: [facility] Address: [address] [address] Performed By: #### 2 4321-2 #### [facility] CLIA [id number] [address] STATES OF [facility] CO2 [Moles/Vol] 25 mmol/L Normal 22-30 [facility] Comment on above: Order Comment: Speci men Type: BLOOD SPECIMEN Ordering Facility: [facility] Address: [address] [address] Performed By: #### 2 4321-2 #### [facility] CLIA [id number] [address] OF [facility] Creatinine [Mass/Vol] 0.65 mg/dL Normal 0.58-0.96 [facility] Comment on above: Order Comment: Speci men Type: BLOOD SPECIMEN Ordering Facility: [facility] Address: [address] [place] [address] Performed By: #### 2 4321-2 #### [facility] CLIA [id number] [address] ESTIMATED GLOMERULAR FILTRATION RATE 101 mL/min/1.73m??? Normal >=60 [facility] Comment on above: Order Comment: Speci men Type: BLOOD SPECIMEN Ordering Facility: [facility] Address: [address] [place] [address] Result Comment: Elenita mated Glomerular Filtration Rate [...] GFR. Performed By: #### 2 4321-2 #### [facility] CLIA [id number] [address] [place] Glucose [Mass/Vol] 108 mg/dL High 74-99 [facility] Comment on above: Order Comment: Speci men Type: BLOOD SPECIMEN Ordering Facility: [facility] Address: [address] [place] [address] Result Comment: The [place] Diabetes Association (ADA) provides guidance for cutoff [...] Standards of Medical Care in Diabetes 2016, [place] [employer]. Diabetes Care. 2016.39(Suppl 1). Performed By: #### 2 4321-2 #### [facility] CLIA [id number] [address] [place] [address] [place] Potassium [Moles/Vol] 4.0 mmol/L Normal 3.7-5.1 [facility] Comment on above: Order Comment: Juan Manuel cox Type: BLOOD SPECIMEN Ordering Facility: [facility] Address: [address] [place] [address] Performed By: #### 2 4321-2 #### [facility] CLIA [id number] [address] [place] Sodium [Moles/Vol] 137 mmol/L Normal 136-144 [facility] Comment on above: Order Comment: Juan Manuel cox Type: BLOOD SPECIMEN Ordering Facility: [facility] Address: [address] [address] Performed By: #### 2 4321-2 #### [facility] CLIA [id number] [address] [place] [address] [place] Urea nitrogen [Mass/Vol] 12 mg/dL Normal 7-21 [facility] Comment on above: Order Comment: Juan Manuel cox Type: BLOOD SPECIMEN Ordering Facility: [facility] Address: [address] [address] Performed By: #### 2 4321-2 #### [facility] CLIA [id number] [address] STATES OF [facility] CONSULTon 02-27-2023 CONSULT HNO ID: [id number] Author: Vinay Lovell MD Service: Electrophysiology Author Type: Physician Type: Consults Filed: 02/27/2023 4:24 PM Note Text: CONSULT: CARDIOLOGY SERVICE [facility] Electrophysiology (EP) SERVICE DATE: 02/27/2023 SERVICE TIME: 4:03 PM CONSULTING PHYSICIAN: Vinay Lovell PCP: Ricki Griffin, COLLECTION SYSTEMS WORKER, INSIDE TECHNICAL SALES REPRESENTATIVE ATTENDING: Oly Guzmán DO REASON FOR CONSULT: Arrhythmias Subjective CHIEF COMPLAINT: Ventricular tachyarrhythmia (HCC) [I47.20] HISTORY OF PRESENT ILLNESS: Ms. George is a 62 year old female transferred from [facility] for evaluation of ventricular tachycardia and heart failure. She has history of CAD, underwent PCI/stent to RCA in 2006. She had preserved LV systolic function at that time, and also in 2011 by the most recent echocardiogram. 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 She was experiencing episodes of nausea and diaphoresis over the past couple months, also exertional shortness of breath. She was admitted to [facility] with these symptoms. She underwent cardiac [...] had recurrence of substantial NSVT here at [facility]. No history of syncope or near syncope, [...] 10 mg (more content not included)... Normal [facility] NUTRITIONon 02-27-2023 NUTRITION HNO ID: [id number] Author: Hui Crandall RD Service: Nutrition Therapy [...] Medical condition, Patient/family self-report Estimated kilocalorie needs: [id number] Calorie Calculation Method: 25-30 kcals/kg, [place] Body Weight Estimated protein needs (grams): 54-65 Grams protein determined by: 1.0 - 1.2 g/kg, [place] body weight Care Plan: Follow for diet advancement to goal Monitor and Evaluation: Meet greater than 75% of estimated needs, Monitor fluid/electrolyte balance, Monitor bowel function, Monitor labs, I/Os, vital signs, weight Discharge Recommendations: Diet Diet: Heart Healthy - HPI: 62 yo female, presented with ventricular tachyarrhythmia from [facility] at present, awaiting Cardiology consult and ICD [...] February 27, 2023 TIME: 10:19 AM Normal [facility] Basophil percentageOrdered B y: Dr. Joseph on 02-26-2023 Bilirubin [Mass/Vol] 0.40 mg/dL 0.20-1.[address] [facility] Comment on above: For patients on eltr ombopag therapy, use of Dimension [place] TBIL is not recommended. Chloride [Moles/Vol] 101 mmol/L 98-[address] [facility] Glucose [Mass/Vol] 108 mg/dL 74-106 [facility] Comment on above: Fasting Glucose resu lt from 100 to 125 mg/dL suggests IMPAIRED HOMEOSTASIS per A.D.A. criteria. Potassium [Moles/Vol] 3.9 mmol/L 3.5-5.1 [facility] Protein [Mass/Vol] 7.1 g/dL 6.4-8.2 [facility] Sodium [Moles/Vol] 136 mmol/L 136-145 [facility] WBC (Bld) [#/Vol] 7.4 10*3/uL 4.4-11.0 [facility] Blood erythrocytes count (nu mber/volume)Ordered By: Dr. Joseph on 02-26-2023 RBC (Bld) [#/Vol] 5.26 10*6/uL 4.2-5.4 [facility] Blood hemoglobin measurement (mass/volume)Ordered By: Dr. Joseph on 02-26-2023 Hemoglobin (Bld) [Mass/Vol] 15.6 g/dL 12.0-15.0 [facility] Blood platelet mean volumeOr dered By: Dr. Joseph on 02-26-2023 Platelet mean volume (Bld) [Entitic vol] 9.9 fL 6.2-12.0 [facility] CBC panel Auto (Bld)on 02-26 Erythrocyte distribution width (RBC) [Ratio] 12.7 % Normal 11.5-15.0 [facility] Comment on above: Order Comment: Speci men Type: BLOOD SPECIMEN Ordering Facility: [facility] Address: [address] [place] [address] Performed By: #### 5 8410-2 #### [facility] CLIA [id number] [address] OF [facility] Hematocrit (Bld) [Volume fraction] 44.9 % Normal 36.0-46.0 [facility] Comment on above: Order Comment: Speci men Type: BLOOD SPECIMEN Ordering Facility: [facility] Address: [address] [place] [address] Performed By: #### 5 8410-2 #### [facility] CLIA [id number] [address] OF [facility] Hemoglobin (Bld) [Mass/Vol] 15.0 g/dL Normal 11.5-15.5 [facility] Comment on above: Order Comment: Speci men Type: BLOOD SPECIMEN Ordering Facility: [facility] Address: [address] [place] [address] Performed By: #### 5 8410-2 #### [facility] CLIA [id number] [address] [place] OF [facility] MCH (RBC) [Entitic mass] 29.4 pg Normal 26.0-34.0 [facility] Comment on above: Order Comment: Speci men Type: BLOOD SPECIMEN Ordering Facility: [facility] Address: [address] [place] [address] Performed By: #### 5 8410-2 #### [facility] CLIA [id number] [address] [place] MCHC (RBC) [Mass/Vol] 33.4 g/dL Normal 30.5-36.0 [facility] Comment on above: Order Comment: Speci men Type: BLOOD SPECIMEN Ordering Facility: [facility] Address: [address] [address] Performed By: #### 5 8410-2 #### [facility] CLIA [id number] [address] MCV (RBC) [Entitic vol] 88.0 fL Normal 80.0-100.0 [facility] Comment on above: Order Comment: Speci men Type: BLOOD SPECIMEN Ordering Facility: [facility] Address: [address] [address] Performed By: #### 5 8410-2 #### [facility] CLIA [id number] [address] Nucleated RBC (Bld) [#/Vol] 10*3/uL Normal <0.01 [facility] Comment on above: Order Comment: Speci men Type: BLOOD SPECIMEN Ordering Facility: [facility] Address: [address] [address] Performed By: #### 5 8410-2 #### [facility] CLIA [id number] [address] Platelet mean volume (Bld) [Entitic vol] 9.6 fL Normal 9.0-12.7 [facility] Comment on above: Order Comment: Speci men Type: BLOOD SPECIMEN Ordering Facility: [facility] Address: [address] [address] Performed By: #### 5 8410-2 #### [facility] CLIA [id number] [address] Platelets (Bld) [#/Vol] 284 10*3/uL Normal 150-400 [facility] Comment on above: Order Comment: Speci men Type: BLOOD SPECIMEN Ordering Facility: [facility] Address: [address] [place] [address] Performed By: #### 5 8410-2 #### [facility] CLIA [id number] [address] [place] RBC (Bld) [#/Vol] 5.10 10*6/uL Normal 3.90-5.20 [facility] Comment on above: Order Comment: Speci men Type: BLOOD SPECIMEN Ordering Facility: [facility] Address: [place] [address] Performed By: #### 5 8410-2 #### [facility] CLIA [id number] [address] STATES OF [facility] WBC (Bld) [#/Vol] 8.04 10*3/uL Normal 3.70-11.00 [facility] Comment on above: Order Comment: Speci men Type: BLOOD SPECIMEN Ordering Facility: [facility] Address: [place] [address] Performed By: #### 5 8410-2 #### [facility] CLIA [id number] [address] [place] [facility] Determination of erythrocyte mean corpuscular volume (MCV)Ordered By: Dr. Joseph on 02-26-2023 MCV (RBC) [Entitic vol] 91.1 fL 81-99 [facility] HISTORY PHYSICALon HISTORY PHYSICAL HNO ID: [id number] Author: Davie Rey MD Service: Hospital Medicine Author Type: Physician Type: HANDP Filed: 02/26/2023 6:32 PM Note Text: Hospital Medicine HPI Patient Name: Vishal George Admission Date: 02/26/2023 Reason For Admission:Ventricula r tachyarrhythmia (HCC) IMPRESSION AND PLAN: Principal Problem: Ventricular tachyarrhythmia (HCC) Active Problems: Coronary artery disease involving [place] coronary artery Hypertension Nicotine use disorder, F17.2 Acute on chronic combined systolic and diastolic CHF (congestive heart failure) (HCC) Tobacco abuse Resolved Problems: * No resolved hospital problems. * Active Hospital Problems Diagnosis Ventricular tachyarrhythmia (HCC) Nicotine use disorder, F17.2 Acute on chronic combined systolic and diastolic CHF (congestive heart failure) (HCC) Tobacco abuse Hypertension Coronary artery disease involving [place] coronary artery 1. Acute on chronic combined [...] CAD status post stent who presented to [facility] a few days ago for severe [...] with a plan to transition her to [facility]. Today there was a plan to discharge patient home but then she had a 34 run of V. tach/wide-complex tachycardia so decision was to transfer her to [facility] for ICD evaluation as that was being [...] OSCOPY TRANS (more content not included)... Normal [facility] Hematocrit Auto (Bld) [Volum e fraction]Ordered By: Dr. Joseph on 02-26-2023 Hematocrit (Bld) [Volume fraction] 47.9 % 37-47 [facility] Laboratory - Chemistry and C hemistry - challengeOrdered By: Dr. Joseph on 02-26-2023 ALP [Catalytic activity/Vol] 76 U/L 45-117 [facility] ALT [Catalytic activity/Vol] 23 U/L 13-56 [facility] CO2 [Moles/Vol] 30.0 mmol/L 21.0-32.0 [facility] Globulin (S) [Mass/Vol] 3.5 g/dL 2.2-4.2 [facility] Urea nitrogen/Creatinine [Mass ratio] 20.8 mg/mg 10-20 [facility] Laboratory - Hematology and Cell countsOrdered By: Dr. Joseph on 02-26-2023 Erythrocyte distribution width (RBC) [Entitic vol] 42.2 fL 35.1-43.9 [facility] Erythrocyte distribution width (RBC) [Ratio] 12.6 % 11.6-14.6 [facility] MCH (RBC) [Entitic mass] 29.7 pg 27.0-32.0 [facility] MCHC Auto (RBC) [Mass/Vol]Or dered By: Dr. Joseph on 02-26-2023 MCHC (RBC) [Mass/Vol] 32.6 g/dL 32-36 [facility] No Panel InformationOrdered By: Dr. Joseph on 02-26-2023 Estimated Creatinine Clearance Calc 73.86 ml/min [facility] Estimated GFR (MDRD) Amer 115 mL/min >60 [facility] Comment on above: GFR Calc Estimated GFR (MDRD) Non-Af Amer 95 mL/min >60 [facility] Comment on above: Non- GFR Calc Platelets bldOrdered By: Dr. Joseph on 02-26-2023 Platelets (Bld) [#/Vol] 293 10*3/uL 150-450 [facility] Serum or plasma albumin virgie urement (mass/volume)Ordered By: Dr. Joseph on 02-26-2023 Albumin [Mass/Vol] 3.6 g/dL 3.2-5.0 [facility] Serum or plasma albumin/glob ulin mass ratioOrdered By: Dr. Joseph on 02-26-2023 Albumin/Globulin [Mass ratio] 1.0 {ratio} 0.9-2.4 [facility] Serum or plasma calcium virgie urement (mass/volume)Ordered By: Dr. Joseph on 02-26-2023 Calcium [Mass/Vol] 9.2 mg/dL 8.5-10.1 [facility] Serum or plasma creatinine m easurement (mass/volume)Ordered By: Dr. Joseph on 02-26-2023 Creatinine [Mass/Vol] 0.67 mg/dL 0.55-1.02 [facility] Comment on above: The validity of the calculated GFR & GFRAA in patients over 70 years has not been determined. Clinical correlation is essential. Serum or plasma urea nitroge n measurement (mass/volume)Ordered By: Dr. Joseph on 02-26-2023 Urea nitrogen [Mass/Vol] 14 mg/dL 7-18 [facility] Thin prep Papanicolaou smear with manual screeningOrdered By: Dr. Joseph on 02-26-2023 Thin prep Papanicolaou smear with manual screening 16 U/L 15-37 [facility] Thin prep Papanicolaou smear with manual screening 5 5-15 [facility] Laboratory - Chemistry and C hemistry - challengeOrdered By: Dr. Brunner on 02-25-2023 Magnesium [Mass/Vol] 1.9 mg/dL 1.6-2.[address] [facility] No Panel InformationOrdered By: Dr. Brunner on 02-25-2023 Activated Clotting Time 251 sec 74-137 [facility] Absolute lymphocyte countOrd ered By: Dr. Brunner on 02-24-2023 Lymphocytes Auto (Unsp spec) [#/Vol] 1.61 10*3/uL 0.83-4.51 [facility] Basophil percentageOrdered B y: Dr. Brunner on 02-24-2023 Basophils/100 WBC (Bld) 1.0 % 0-1 [facility] Eosinophils/100 WBC (Bld) 2.0 % 0-5 [facility] Neutrophils (Bld) [#/Vol] 4.4 10*3/uL 2.0-7.7 [facility] Neutrophils/100 WBC (Bld) 63.9 % 47-70 [facility] Blood lymphocytes/100 leukoc ytesOrdered By: Dr. Brunner on 02-24-2023 Lymphocytes/100 WBC (Bld) 23.2 % 19-41 [facility] Blood monocytes/100 leukocyt esOrdered By: Dr. Brunner on 02-24-2023 Monocytes/100 WBC (Bld) 9.5 % 0-10 [facility] Laboratory - Hematology and Cell countsOrdered By: Dr. Brunner on 02-24-2023 Immature granulocytes/100 WBC (Bld) 0.400 % 0.0-0.9 [facility] Comment on above: IG% - Immature Granu locytes (promyelocytes, myelocytes and metamyelocytes) > 1% indicates that a LEFT SHIFT is Present. Nucleated RBC/100 WBC (Bld) [Ratio] 0 % 0-5 [facility] No Panel InformationOrdered By: Dr. Brunner on 02-24-2023 Thyroid Stimulating Hormone (TSH) 1.66 uIU/mL 0.358-3.74 [facility] Basophil percentageOrdered B y: Dr. Brunner on 02-23-2023 Cholesterol [Mass/Vol] 187 mg/dL <[address] [facility] Comment on above: <200 mg/dL Desirable 200-240 mg/dL Borderline >240 mg/dL High Risk Triglyceride [Mass/Vol] 62 mg/dL <199 [facility] Comment on above: The drugs N-Acetylcy steine and Metamizole may falsely depress this assay.Serum Triglycerides Reference Interval Normal <150 mg/dL Borderline high 150 - 199 mg/dL High 200 - 499 mg/dL Very High > or = 500 mg/dL Laboratory - Chemistry and C hemistry - challengeOrdered By: Dr. Brunner on 02-23-2023 Natriuretic peptide B (Bld) [Mass/Vol] 1392.6 pg/mL 0-100 [facility] No Panel InformationOrdered By: Julio César Arndt on 02-23-2023 Streptococcus pneumoniae Antigen ([facility] No Panel InformationOrdered By: Dr. Arndt on 02-23-2023 Streptococcus pneumoniae Antigen ([facility] Serum or plasma cholesterol in HDL measurement (mass/volume)Ordered By: Dr. Brunner on 02-23-2023 Cholesterol in HDL [Mass/Vol] 40 mg/dL >40 [facility] Comment on above: The drugs N-Acetylcy steine and Metamizole may falsely depress this assay. Reference Range HDL <40 mg/dL Low HDL Cholesterol HDL >or= 60 mg/dL High HDL Cholesterol Serum or plasma cholesterol in VLDL measurement (mass/volume)Ordered By: Dr. Brunner on 02-23-2023 Cholesterol in VLDL [Mass/Vol] 12 mg/dL 5-40 [facility] Serum or plasma low density lipoprotein (LDL) cholesterol measurement (mass/volume)Ordered By: Dr. Brunner on 02-23-2023 Cholesterol in LDL [Mass/Vol] 135 mg/dL 0-130 [facility] Absolute lymphocyte countOrd ered By: Dr. Koehler on 02-22-2023 Lymphocytes Auto (Unsp spec) [#/Vol] 1.46 10*3/uL 0.83-4.51 [facility] Basophil percentageOrdered B y: Dr. Arndt on 02-22-2023 Basophil percentage 4.2 mg/dL 2.5-4.9 [facility] Basophil percentageOrdered B y: Dr. Burris on 02-22-2023 Lactate [Moles/Vol] 1.8 mmol/L 0.4-2.0 [facility] Lactate [Moles/Vol] 2.8 mmol/L 0.4-2.0 [facility] Comment on above: Critical Result(s) C alled at: 18:21:29 02/22/2023 by: SAMEERA CARRILLO TO MAYTE DUNNE. Results read back by same. Basophil percentageOrdered B y: Dr. Koehler on 02-22-2023 Basophils/100 WBC (Bld) 1.5 % 0-1 [facility] Bilirubin [Mass/Vol] 0.40 mg/dL 0.20-1.[address] [facility] Comment on above: For patients on eltr ombopag therapy, use of Dimension [place] TBIL is not recommended. Chloride [Moles/Vol] 104 mmol/L 98-[address] [facility] Eosinophils/100 WBC (Bld) 4.7 % 0-5 [facility] Glucose [Mass/Vol] 138 mg/dL 74-106 [facility] Comment on above: Fasting Glucose resu lt greater than or equal to 126 mg/dL suggests DIABETES MELLITUS per A.D.A. criteria. Neutrophils (Bld) [#/Vol] 7.0 10*3/uL 2.0-7.7 [facility] Neutrophils/100 WBC (Bld) 71.0 % 47-70 [facility] Potassium [Moles/Vol] 4.0 mmol/L 3.5-5.1 [facility] Protein [Mass/Vol] 7.7 g/dL 6.4-8.2 [facility] Sodium [Moles/Vol] 141 mmol/L 136-145 [facility] WBC (Bld) [#/Vol] 9.8 10*3/uL 4.4-11.0 [facility] Blood erythrocytes count (nu mber/volume)Ordered By: Dr. Koehler on 02-22-2023 RBC (Bld) [#/Vol] 5.30 10*6/uL 4.2-5.4 [facility] Blood hemoglobin measurement (mass/volume)Ordered By: Dr. Koehler on 02-22-2023 Hemoglobin (Bld) [Mass/Vol] 15.8 g/dL 12.0-15.0 [facility] Blood lymphocytes/100 leukoc ytesOrdered By: Dr. Koehler on 02-22-2023 Lymphocytes/100 WBC (Bld) 14.9 % 19-41 [facility] Blood monocytes/100 leukocyt esOrdered By: Dr. Koehler on 02-22-2023 Monocytes/100 WBC (Bld) 7.4 % 0-10 [facility] Blood platelet mean volumeOr dered By: Dr. Koehler on 02-22-2023 Platelet mean volume (Bld) [Entitic vol] 10.2 fL 6.2-12.0 [facility] Determination of erythrocyte mean corpuscular volume (MCV)Ordered By: Dr. Koehler on 02-22-2023 MCV (RBC) [Entitic vol] 93.2 fL 81-99 [facility] Hematocrit Auto (Bld) [Volum e fraction]Ordered By: Dr. Koehler on 02-22-2023 Hematocrit (Bld) [Volume fraction] 49.4 % 37-47 [facility] Laboratory - Chemistry and C hemistry - challengeOrdered By: Dr. Koehler on 02-22-2023 ALP [Catalytic activity/Vol] 80 U/L 45-117 [facility] ALT [Catalytic activity/Vol] 27 U/L 13-56 [facility] CO2 [Moles/Vol] 31.0 mmol/L 21.0-32.0 [facility] Globulin (S) [Mass/Vol] 3.6 g/dL 2.2-4.2 [facility] Lipase [Catalytic activity/Vol] 39 U/L 13-75 [facility] Comment on above: Please note:LIPASE r evised reference range effective 23. New Lipase methodology. Expected to produce lower values than the previous assay method. NEW Reference Range: 13 - 75 U/L Urea nitrogen/Creatinine [Mass ratio] 14.9 mg/mg 10-20 [facility] Laboratory - Hematology and Cell countsOrdered By: Dr. Koehler on 02-22-2023 Erythrocyte distribution width (RBC) [Entitic vol] 44.7 fL 35.1-43.9 [facility] Erythrocyte distribution width (RBC) [Ratio] 13.1 % 11.6-14.6 [facility] Immature granulocytes/100 WBC (Bld) 0.500 % 0.0-0.9 [facility] Comment on above: IG% - Immature Granu locytes (promyelocytes, myelocytes and metamyelocytes) > 1% indicates that a LEFT SHIFT is Present. MCH (RBC) [Entitic mass] 29.8 pg 27.0-32.0 [facility] Nucleated RBC/100 WBC (Bld) [Ratio] 0 % 0-5 [facility] Laboratory - Microbiology an d Antimicrobial susceptibilityOrdered By: Julio César Arndt on 02-22-2023 Bacteria identified Cx Nom (Bld) No growth in 5 days. [facility] MCHC Auto (RBC) [Mass/Vol]Or dered By: Dr. Koehler on 02-22-2023 MCHC (RBC) [Mass/Vol] 32.0 g/dL 32-36 [facility] No Panel InformationOrdered By: Dr. Burris on 02-22-2023 Troponin I High Sensitivity 15 pg/mL 3.0-54.0 [facility] Comment on above: Please Note: [place] Units and Gender Specific Reference Ranges. For more information see Policy Stat Procedure [place] High Sensitivity Troponin (TNIH) and attachments. No Panel InformationOrdered By: Dr. Koehler on 02-22-2023 Estimated Creatinine Clearance Calc 56.88 ml/min [facility] Estimated GFR (MDRD) Amer 85 mL/min >60 [facility] Comment on above: GFR Calc Estimated GFR (MDRD) Non-Af Amer 70 mL/min >60 [facility] Comment on above: Non- GFR Calc Platelets bldOrdered By: Dr. Koehler on 02-22-2023 Platelets (Bld) [#/Vol] 331 10*3/uL 150-450 [facility] Serum or plasma albumin virgie urement (mass/volume)Ordered By: Dr. Koehler on 02-22-2023 Albumin [Mass/Vol] 4.1 g/dL 3.2-5.0 [facility] Serum or plasma albumin/glob ulin mass ratioOrdered By: Dr. Koehler on 02-22-2023 Albumin/Globulin [Mass ratio] 1.1 {ratio} 0.9-2.4 [facility] Serum or plasma calcium virgie urement (mass/volume)Ordered By: Dr. Koehler on 02-22-2023 Calcium [Mass/Vol] 10.1 mg/dL 8.5-10.1 [facility] Serum or plasma creatinine m easurement (mass/volume)Ordered By: Dr. Koehler on 02-22-2023 Creatinine [Mass/Vol] 0.87 mg/dL 0.55-1.02 [facility] Comment on above: The validity of the calculated GFR & GFRAA in patients over 70 years has not been determined. Clinical correlation is essential. Serum or plasma urea nitroge n measurement (mass/volume)Ordered By: Dr. Koehler on 02-22-2023 Urea nitrogen [Mass/Vol] 13 mg/dL 7-18 [facility] Thin prep Papanicolaou smear with manual screeningOrdered By: Dr. Koehler on 02-22-2023 Thin prep Papanicolaou smear with manual screening 20 U/L 15-37 [facility] Thin prep Papanicolaou smear with manual screening 6 5-15 [facility] Whole blood hemoglobin A1c/t otal hemoglobin ratio (mass fraction)Ordered By: Dr. Brunner on 02-22-2023 HbA1c (Bld) [Mass fraction] 5.7 % 3.8-5.6 [facility] Comment on above: Normal < 5.7 % Predi abetic 5.7 - 6.4 % Diabetic >or= 6.5 % Please note range changes. Basophil percentageOrdered B y: Ricki Griffin on 02-08-2023 Bilirubin [Mass/Vol] 0.30 mg/dL 0.20-1.[address] [facility] Comment on above: For patients on eltr ombopag therapy, use of Dimension [place] TBIL is not recommended. Chloride [Moles/Vol] 100 mmol/L 98-[address] [facility] Glucose [Mass/Vol] 105 mg/dL 74-106 [facility] Comment on above: Fasting Glucose resu lt from 100 to 125 mg/dL suggests IMPAIRED HOMEOSTASIS per A.D.A. criteria. Potassium [Moles/Vol] 3.8 mmol/L 3.5-5.1 [facility] Protein [Mass/Vol] 7.3 g/dL 6.4-8.2 [facility] Sodium [Moles/Vol] 134 mmol/L 136-145 [facility] WBC (Bld) [#/Vol] 6.4 10*3/uL 4.4-11.0 [facility] Blood erythrocytes count (nu mber/volume)Ordered By: Ricki Griffin on 02-08-2023 RBC (Bld) [#/Vol] 5.25 10*6/uL 4.2-5.4 [facility] Blood hemoglobin measurement (mass/volume)Ordered By: Ricki Griffin on 02-08-2023 Hemoglobin (Bld) [Mass/Vol] 15.9 g/dL 12.0-15.0 [facility] Blood platelet mean volumeOr dered By: Ricki Griffin on 02-08-2023 Platelet mean volume (Bld) [Entitic vol] 9.4 fL 6.2-12.0 [facility] Determination of erythrocyte mean corpuscular volume (MCV)Ordered By: Ricki Griffin on 02-08-2023 MCV (RBC) [Entitic vol] 91.4 fL 81-99 [facility] Hematocrit Auto (Bld) [Volum e fraction]Ordered By: Ricki Griffin on 02-08-2023 Hematocrit (Bld) [Volume fraction] 48.0 % 37-47 [facility] Laboratory - Chemistry and C hemistry - challengeOrdered By: Ricki Griffin on 02-08-2023 ALP [Catalytic activity/Vol] 82 U/L 45-117 [facility] ALT [Catalytic activity/Vol] 29 U/L 13-56 [facility] CO2 [Moles/Vol] 30.0 mmol/L 21.0-32.0 [facility] Globulin (S) [Mass/Vol] 3.4 g/dL 2.2-4.2 [facility] Urea nitrogen/Creatinine [Mass ratio] 26.5 mg/mg 10-20 [facility] Laboratory - Hematology and Cell countsOrdered By: Ricki Griffin on 02-08-2023 Erythrocyte distribution width (RBC) [Entitic vol] 45.6 fL 35.1-43.9 [facility] Erythrocyte distribution width (RBC) [Ratio] 13.5 % 11.6-14.6 [facility] MCH (RBC) [Entitic mass] 30.3 pg 27.0-32.0 [facility] MCHC Auto (RBC) [Mass/Vol]Or dered By: Ricki Griffin on 02-08-2023 MCHC (RBC) [Mass/Vol] 33.1 g/dL 32-36 [facility] No Panel InformationOrdered By: Ricki Griffin on 02-08-2023 Estimated GFR (MDRD) Amer 100 mL/min >60 [facility] Comment on above: GFR Calc Estimated GFR (MDRD) Non-Af Amer 83 mL/min >60 [facility] Comment on above: Non- GFR Calc Troponin I High Sensitivity 32 pg/mL 3.0-54.0 [facility] Comment on above: Please Note: [place] Units and Gender Specific Reference Ranges. For more information see Policy Stat Procedure [place] High Sensitivity Troponin (TNIH) and attachments. Platelets bldOrdered By: Godfrey Griffin on 02-08-2023 Platelets (Bld) [#/Vol] 299 10*3/uL 150-450 [facility] Serum or plasma C reactive p rotein measurement (mass/volume)Ordered By: Ricki Griffin on 02-08-2023 CRP [Mass/Vol] mg/L 0.0-3.0 [facility] Comment on above: C-Reactive Protein ( CRP) provides useful information for thediagnosis, therapy and monitoring of inflammatory processesand associated diseases. For the evaluation of Relative Riskfor Cardiovascular Disease, a High Sensitivity CRP (HSCRP)should be ordered. Serum or plasma albumin virgie urement (mass/volume)Ordered By: Ricki Griffin on 02-08-2023 Albumin [Mass/Vol] 3.9 g/dL 3.2-5.0 [facility] Serum or plasma albumin/glob ulin mass ratioOrdered By: Ricki Griffin on 02-08-2023 Albumin/Globulin [Mass ratio] 1.1 {ratio} 0.9-2.4 [facility] Serum or plasma calcium virgie urement (mass/volume)Ordered By: Ricki Griffin on 02-08-2023 Calcium [Mass/Vol] 9.6 mg/dL 8.5-10.1 [facility] Serum or plasma creatinine m easurement (mass/volume)Ordered By: Ricki Griffin on 02-08-2023 Creatinine [Mass/Vol] 0.76 mg/dL 0.55-1.02 [facility] Comment on above: The validity of the calculated GFR & GFRAA in patients over 70 years has not been determined. Clinical correlation is essential. Serum or plasma urea nitroge n measurement (mass/volume)Ordered By: Ricki Griffin on 02-08-2023 Urea nitrogen [Mass/Vol] 20 mg/dL 7-18 [facility] Thin prep Papanicolaou smear with manual screeningOrdered By: Ricki Griffin on 02-08-2023 Thin prep Papanicolaou smear with manual screening 17 U/L 15-37 [facility] Thin prep Papanicolaou smear with manual screening 4 -15 [facility] RESCVIDon 09-23-2022 Adenovirus Not detected Normal Not Detected [facility] ([place]) Comment on above: Performed By: #### R ESCVID #### [address] [address] Bordetella Parapertussis Not detected Normal Not Detected [facility] ([place]) Comment on above: Performed By: #### R ESCVID #### [place] [address] Bordetella Pertussis Not detected Normal Not Detected [facility] ([place]) Comment on above: Performed By: #### R ESCVID #### [address] [address] Chlamydophila pneumoniae Not detected Normal Not Detected [facility] ([place]) Comment on above: Performed By: #### R ESCVID #### [place] [id number] Coronavirus 229E (Not COVID-19) Not detected Normal Not Detected [facility] ([place]) Comment on above: Performed By: #### R ESCVID #### [place] [id number] Coronavirus HKU1 (Not COVID-19) Not detected Normal Not Detected [facility] ([place]) Comment on above: Performed By: #### R ESCVID #### [place] [id number] Coronavirus NL63 (Not COVID-19) Not detected Normal Not Detected [facility] ([place]) Comment on above: Performed By: #### R ESCVID #### [address] [address] Coronavirus OC43 (Not COVID-19) Not detected Normal Not Detected [facility] ([place]) Comment on above: Performed By: #### R ESCVID #### [address] [address] Human Metapneumovirus Not detected Normal Not Detected [facility] ([place]) Comment on above: Performed By: #### R ESCVID #### [facility] [address] [place] [address] Influenza A Not detected Normal Not Detected [facility] ([place] Comment on above: Performed By: #### R ESCVID #### [facility] [address] [place] [phone] Influenza B Not detected Normal Not Detected [facility] ([place] Comment on above: Performed By: #### R ESCVID #### [facility] [address] [place] [id number] Mycoplasma pneumoniae Not detected Normal Not Detected [facility] ([place] Comment on above: Performed By: #### R ESCVID #### [facility] [address] [place] [address] Parainfluenza 1 Not detected Normal Not Detected [facility] ([place]) Comment on above: Performed By: #### R ESCVID #### [facility] [address] [place] [address] Parainfluenza 2 Not detected Normal Not Detected [facility] ([place]) Comment on above: Performed By: #### R ESCVID #### [facility] [address] [place] [phone] Parainfluenza 3 Not detected Normal Not Detected [facility] ([place]) Comment on above: Performed By: #### R ESCVID #### [facility] [address] [place] [phone] Parainfluenza 4 Not detected Normal Not Detected [facility] ([place]) Comment on above: Performed By: #### R ESCVID #### [facility] [address] [place] [address] Respiratory Syncytial Virus Not detected Normal Not Detected [facility] ([place]) Comment on above: Performed By: #### R ESCVID #### [facility] [address] [place] [address] Rhinovirus/Enterovirus Detected Abnormal Not Detected [facility] ([place]) Comment on above: Performed By: #### R ESCVID #### [facility] [address] [place] [address] SARS-CoV-2 (COVID-19) RNA FERCHO+probe Ql (Unsp spec) Not detected Normal Not Detected [facility] ([place]) Comment on above: Result Comment: This test is being used under the FDA EUA procedure. This assay has been validated in the [facility] for use with nasopharyngeal specimens in [facility]. If a non-validated specimen or test [...] authorities. Performed By: #### R ESCVID #### [place] [address] LABORATORYOrdered By: Jere Gunderson on 09-21-2022 Adenovirus DNA FERCHO+non-probe Ql (Nph) Not Detected *NA* (09/21/22 5:46 PM) Invalid Interpretation Code Not Detected AH Auto Viro/Sero SS B. parapertussis [id number] DNA FERCHO+non-probe Ql (Nph) Not Detected *NA* [...] AH Auto Viro/Sero SS JON SCREENINGon 08-14-2022 [facility] SURGICAL PATHOLOGYon Case Report Surgical Pathology Report Case: [id number] Authorizing Provider: Sony Cedeño MD Collected: 08/09/2022 11:36 AM Ordering Location: Ambulatory Surgery Received: 08/09/2022 04:53 PM Pathologist: Sony Prater MD Specimens: A) - DUODENUM BIOPSY B) - ANTRUM (STOMACH) BIOPSY, Antral bx for H/H C) - ESOPHAGUS BIOPSY, distal esophagus bx [facility] FINAL DIAGNOSIS A. Duodenum, biopsy: - Duodenal mucosa with no significant pathologic abnormality. B. Stomach, biopsy: - Gastric mucosa with no significant pathologic abnormality. C. Distal esophagus, biopsy: - Squamous mucosa with mild reactive changes. [facility] Gross Description A. DUODENUM BIOPSY [...] in one cassette. Gross examination performed at [facility], [address] [place] [address] JT 08/09/2022 11:51 PM [facility] Performing Lab Diagnostic interpretation performed at [facility], [address] [place] [address] CLIA# [id number] [employer]: Bart Madsen M.D. [facility] EGD DIAGNOSTICon 08-09-2022 [facility] Absolute lymphocyte countOrd ered By: Dr. Rain on 07-14-2022 Lymphocytes Auto (Unsp spec) [#/Vol] 1.11 10*3/uL 0.83-4.51 [facility] Basophil percentageOrdered B y: Dr. Rain on 07-14-2022 Basophils/100 WBC (Bld) 0.7 % 0-1 [facility] Bilirubin [Mass/Vol] 0.90 mg/dL 0.20-1.[address] [facility] Comment on above: For patients on eltr ombopag therapy, use of Dimension [place] TBIL is not recommended. Chloride [Moles/Vol] 103 mmol/L 98-[address] [facility] Eosinophils/100 WBC (Bld) 0.3 % 0-5 [facility] Glucose [Mass/Vol] 165 mg/dL 74-106 [facility] Comment on above: Fasting Glucose resu lt greater than or equal to 126 mg/dL suggests DIABETES MELLITUS per A.D.A. criteria. Neutrophils (Bld) [#/Vol] 8.0 10*3/uL 2.0-7.7 [facility] Neutrophils/100 WBC (Bld) 78.8 % 47-70 [facility] Potassium [Moles/Vol] 3.3 mmol/L 3.5-5.1 [facility] Protein [Mass/Vol] 8.2 g/dL 6.4-8.2 [facility] Sodium [Moles/Vol] 140 mmol/L 136-145 [facility] WBC (Bld) [#/Vol] 10.2 10*3/uL 4.4-11.0 [facility] Blood erythrocytes count (nu mber/volume)Ordered By: Dr. Rain on 07-14-2022 RBC (Bld) [#/Vol] 5.25 10*6/uL 4.2-5.4 [facility] Blood hemoglobin measurement (mass/volume)Ordered By: Dr. Rain on 07-14-2022 Hemoglobin (Bld) [Mass/Vol] 15.8 g/dL 12.0-15.0 [facility] Blood lymphocytes/100 leukoc ytesOrdered By: Dr. Rain on 07-14-2022 Lymphocytes/100 WBC (Bld) 10.9 % 19-41 [facility] Blood monocytes/100 leukocyt esOrdered By: Dr. Rain on 07-14-2022 Monocytes/100 WBC (Bld) 8.8 % 0-10 [facility] Blood platelet mean volumeOr dered By: Dr. Rain on 07-14-2022 Platelet mean volume (Bld) [Entitic vol] 9.9 fL 6.2-12.0 [facility] Determination of erythrocyte mean corpuscular volume (MCV)Ordered By: Dr. Rain on 07-14-2022 MCV (RBC) [Entitic vol] 87.2 fL 81-99 [facility] Hematocrit Auto (Bld) [Volum e fraction]Ordered By: Dr. Rain on 07-14-2022 Hematocrit (Bld) [Volume fraction] 45.8 % 37-47 [facility] Laboratory - Chemistry and C hemistry - challengeOrdered By: Dr. Rain on 07-14-2022 ALP [Catalytic activity/Vol] 90 U/L 45-117 [facility] ALT [Catalytic activity/Vol] 31 U/L 13-56 [facility] CO2 [Moles/Vol] 24.0 mmol/L 21.0-32.0 [facility] Globulin (S) [Mass/Vol] 3.6 g/dL 2.2-4.2 [facility] Lipase [Catalytic activity/Vol] 108 U/L 73-393 [facility] Urea nitrogen/Creatinine [Mass ratio] 15.2 mg/mg 10-20 [facility] Laboratory - Hematology and Cell countsOrdered By: Dr. Rain on 07-14-2022 Erythrocyte distribution width (RBC) [Entitic vol] 40.8 fL 35.1-43.9 [facility] Erythrocyte distribution width (RBC) [Ratio] 12.8 % 11.6-14.6 [facility] Immature granulocytes/100 WBC (Bld) 0.500 % 0.0-0.9 [facility] Comment on above: IG% - Immature Granu locytes (promyelocytes, myelocytes and metamyelocytes) > 1% indicates that a LEFT SHIFT is Present. MCH (RBC) [Entitic mass] 30.1 pg 27.0-32.0 [facility] Nucleated RBC/100 WBC (Bld) [Ratio] 0 % 0-5 [facility] MCHC Auto (RBC) [Mass/Vol]Or dered By: Dr. Rain on 07-14-2022 MCHC (RBC) [Mass/Vol] 34.5 g/dL 32-36 [facility] No Panel InformationOrdered By: Dr. Rain on 07-14-2022 Estimated Creatinine Clearance Calc 47.79 ml/min [facility] Estimated GFR (MDRD) Amer 74 mL/min >60 [facility] Comment on above: GFR Calc Estimated GFR (MDRD) Non-Af Amer 61 mL/min >60 [facility] Comment on above: Non- GFR Calc Platelets bldOrdered By: Dr. Rain on 07-14-2022 Platelets (Bld) [#/Vol] 334 10*3/uL 150-450 [facility] Serum or plasma albumin virgie urement (mass/volume)Ordered By: Dr. Rain on 07-14-2022 Albumin [Mass/Vol] 4.6 g/dL 3.2-5.0 [facility] Serum or plasma albumin/glob ulin mass ratioOrdered By: Dr. Rain on 07-14-2022 Albumin/Globulin [Mass ratio] 1.3 {ratio} 0.9-2.4 [facility] Serum or plasma calcium virgie urement (mass/volume)Ordered By: Dr. Rain on 07-14-2022 Calcium [Mass/Vol] 10.6 mg/dL 8.5-10.1 [facility] Serum or plasma creatinine m easurement (mass/volume)Ordered By: Dr. Rain on 07-14-2022 Creatinine [Mass/Vol] 0.99 mg/dL 0.55-1.02 [facility] Comment on above: The validity of the calculated GFR & GFRAA in patients over 70 years has not been determined. Clinical correlation is essential. Serum or plasma urea nitroge n measurement (mass/volume)Ordered By: Dr. Rain on 07-14-2022 Urea nitrogen [Mass/Vol] 15 mg/dL 7-18 [facility] Thin prep Papanicolaou smear with manual screeningOrdered By: Dr. Rain on 07-14-2022 Thin prep Papanicolaou smear with manual screening 23 U/L 15-37 [facility] Thin prep Papanicolaou smear with manual screening 13 5-15 [facility] Absolute lymphocyte countOrd ered By: Dr. Monae on 07-12-2022 Lymphocytes Auto (Unsp spec) [#/Vol] 1.10 10*3/uL 0.83-4.51 [facility] Basophil percentageOrdered B y: Dr. Monae on 07-12-2022 Basophil percentage 0 SEEN /hpf 0-[address] [facility] Basophils/100 WBC (Bld) 0.5 % 0-1 [facility] Bilirubin [Mass/Vol] 0.60 mg/dL 0.20-1.[address] [facility] Comment on above: For patients on eltr ombopag therapy, use of Dimension [place] TBIL is not recommended. Chloride [Moles/Vol] 105 mmol/L 98-[address] [facility] Eosinophils/100 WBC (Bld) 0.7 % 0-5 [facility] Glucose [Mass/Vol] 170 mg/dL 74-106 [facility] Comment on above: Fasting Glucose resu lt greater than or equal to 126 mg/dL suggests DIABETES MELLITUS per A.D.A. criteria. Lactate [Moles/Vol] 2.0 mmol/L 0.4-2.0 [facility] Comment on above: Critical Result(s) C alled at: 12:36:42 07/12/2022 by: Lissette Prieto. Ish Lam RN (ER). Results read back by same. Neutrophils (Bld) [#/Vol] 7.4 10*3/uL 2.0-7.7 [facility] Neutrophils/100 WBC (Bld) 78.8 % 47-70 [facility] Potassium [Moles/Vol] 3.7 mmol/L 3.5-5.1 [facility] Protein [Mass/Vol] 8.1 g/dL 6.4-8.2 [facility] Sodium [Moles/Vol] 141 mmol/L 136-145 [facility] WBC (Bld) [#/Vol] 9.4 10*3/uL 4.4-11.0 [facility] Bilirubin Test strip Ql (U)O rdered By: Dr. Monae on 07-12-2022 Bilirubin Ql (U) Negative Negative [facility] Blood erythrocytes count (nu mber/volume)Ordered By: Dr. Monae on 07-12-2022 RBC (Bld) [#/Vol] 5.34 10*6/uL 4.2-5.4 [facility] Blood hemoglobin measurement (mass/volume)Ordered By: Dr. Monae on 07-12-2022 Hemoglobin (Bld) [Mass/Vol] 15.9 g/dL 12.0-15.0 [facility] Blood lymphocytes/100 leukoc ytesOrdered By: Dr. Monae on 07-12-2022 Lymphocytes/100 WBC (Bld) 11.8 % 19-41 [facility] Blood monocytes/100 leukocyt esOrdered By: Dr. Monae on 07-12-2022 Monocytes/100 WBC (Bld) 7.7 % 0-10 [facility] Blood platelet mean volumeOr dered By: Dr. Monae on 07-12-2022 Platelet mean volume (Bld) [Entitic vol] 9.4 fL 6.2-12.0 [facility] Determination of erythrocyte mean corpuscular volume (MCV)Ordered By: Dr. Monae on 07-12-2022 MCV (RBC) [Entitic vol] 89.3 fL 81-99 [facility] Hematocrit Auto (Bld) [Volum e fraction]Ordered By: Dr. Monae on 07-12-2022 Hematocrit (Bld) [Volume fraction] 47.7 % 37-47 [facility] Ketones Test strip Ql (U)Ord ered By: Dr. Monae on 07-12-2022 Ketones Ql (U) 5 mg/dl Negative [facility] Laboratory - Chemistry and C hemistry - challengeOrdered By: Dr. Monae on 07-12-2022 ALP [Catalytic activity/Vol] 95 U/L 45-117 [facility] ALT [Catalytic activity/Vol] 31 U/L 13-56 [facility] CO2 [Moles/Vol] 27.0 mmol/L 21.0-32.0 [facility] Globulin (S) [Mass/Vol] 3.7 g/dL 2.2-4.2 [facility] Lipase [Catalytic activity/Vol] 110 U/L 73-393 [facility] Urea nitrogen/Creatinine [Mass ratio] 12.6 mg/mg 10-20 [facility] Laboratory - Hematology and Cell countsOrdered By: Dr. Monae on 07-12-2022 Erythrocyte distribution width (RBC) [Entitic vol] 42.6 fL 35.1-43.9 [facility] Erythrocyte distribution width (RBC) [Ratio] 13.0 % 11.6-14.6 [facility] Immature granulocytes/100 WBC (Bld) 0.500 % 0.0-0.9 [facility] Comment on above: IG% - Immature Granu locytes (promyelocytes, myelocytes and metamyelocytes) > 1% indicates that a LEFT SHIFT is Present. MCH (RBC) [Entitic mass] 29.8 pg 27.0-32.0 [facility] Nucleated RBC/100 WBC (Bld) [Ratio] 0 % 0-5 [facility] MCHC Auto (RBC) [Mass/Vol]Or dered By: Dr. Monae on 07-12-2022 MCHC (RBC) [Mass/Vol] 33.3 g/dL 32-36 [facility] Mucus LM Ql (Urine sed)Order ed By: Dr. Monae on 07-12-2022 Mucus Ql (Urine sed) 0 SEEN /hpf [facility] Nitrite Test strip Ql (U)Ord ered By: Dr. Monae on 07-12-2022 Nitrite Ql (U) Negative Negative [facility] No Panel InformationOrdered By: Dr. Monae on 07-12-2022 Estimated Creatinine Clearance Calc 45.94 ml/min [facility] Estimated GFR (MDRD) Amer 70 mL/min >60 [facility] Comment on above: GFR Calc Estimated GFR (MDRD) Non-Af Amer 58 mL/min >60 [facility] Comment on above: Non- GFR Calc Platelets bldOrdered By: Dr. Monae on 07-12-2022 Platelets (Bld) [#/Vol] 322 10*3/uL 150-450 [facility] Protein Test strip Ql (U)Ord ered By: Dr. Monae on 07-12-2022 Protein Ql (U) Negative Negative [facility] Serum or plasma albumin virgie urement (mass/volume)Ordered By: Dr. Monae on 07-12-2022 Albumin [Mass/Vol] 4.4 g/dL 3.2-5.0 [facility] Serum or plasma albumin/glob ulin mass ratioOrdered By: Dr. Monae on 07-12-2022 Albumin/Globulin [Mass ratio] 1.2 {ratio} 0.9-2.4 [facility] Serum or plasma calcium virgie urement (mass/volume)Ordered By: Dr. Monae on 07-12-2022 Calcium [Mass/Vol] 10.1 mg/dL 8.5-10.1 [facility] Serum or plasma creatinine m easurement (mass/volume)Ordered By: Dr. Monae on 07-12-2022 Creatinine [Mass/Vol] 1.03 mg/dL 0.55-1.02 [facility] Comment on above: The validity of the calculated GFR & GFRAA in patients over 70 years has not been determined. Clinical correlation is essential. Serum or plasma urea nitroge n measurement (mass/volume)Ordered By: Dr. Monae on 07-12-2022 Urea nitrogen [Mass/Vol] 13 mg/dL 7-18 [facility] Squamous epithelial cells de tection in urine sediment by light microscopyOrdered By: Dr. Monae on 07-12-2022 Epithelial cells.squamous LM Ql (Urine sed) 0-5 SEEN /hpf 5-10 [facility] Thin prep Papanicolaou smear with manual screeningOrdered By: Dr. Monae on 07-12-2022 Thin prep Papanicolaou smear with manual screening 21 U/L 15-37 [facility] Thin prep Papanicolaou smear with manual screening 9 5-15 [facility] Urine blood detectionOrdered By: Dr. Monae on 07-12-2022 RBC Ql (U) 10 /ul Negative [facility] RBC Ql (U) 0-5 SEEN /hpf 0-5 [facility] Urine clarityOrdered By: Dr. Monae on 07-12-2022 Clarity (U) Clear Clear [facility] Urine color determinationOrd ered By: Dr. Monae on 07-12-2022 Color (U) Yellow Yellow [facility] Urine glucose detectionOrder ed By: Dr. Monae on 07-12-2022 Glucose Ql (U) Normal mg/dl Normal [facility] Urine leukocyte esterase det ection by dipstickOrdered By: Dr. Monae on 07-12-2022 Leukocyte esterase Test strip Ql (U) Negative Negative [facility] Urine pHOrdered By: Dr. Ann nails on 07-12-2022 pH (U) 7.0 [pH] 5.0 - 8.0 [facility] Urine sediment bacteria coun t by microscopy (number/high power field)Ordered By: Dr. Monae on 07-12-2022 Bacteria LM.HPF (Urine sed) [#/Area] 0 /[HPF] None Seen [facility] Urine specific gravity measu rementOrdered By: Dr. Monae on 07-12-2022 Specific gravity (U) [Rel density] 1.010 1.002-1.030 [facility] Urobilinogen Auto test strip Ql (U)Ordered By: Dr. Monae on 07-12-2022 Urobilinogen Ql (U) Normal mg/dl Normal [facility] Basophil percentageon 2021 Bilirubin [Mass/Vol] 0.40 mg/dL 0.20-1.[address] [facility] Work Phone: Comment on above: For patients on eltr ombopag therapy, use of Dimension [place] TBIL is not recommended. Chloride [Moles/Vol] 102 mmol/L 98-[address] [facility] Work Phone: Cholesterol [Mass/Vol] 160 mg/dL <200 [facility] Work Phone: Comment on above: <200 mg/dL Desirable 200-240 mg/dL Borderline >240 mg/dL High Risk Glucose [Mass/Vol] 102 mg/dL 74-106 [facility] Work Phone: Comment on above: Fasting Glucose resu lt from 100 to 125 mg/dL suggests IMPAIRED HOMEOSTASIS per A.D.A. criteria. Potassium [Moles/Vol] 4.0 mmol/L 3.5-5.1 [facility] Work Phone: Protein [Mass/Vol] 7.1 g/dL 6.4-8.2 [facility] Work Phone: Sodium [Moles/Vol] 137 mmol/L 136-145 [facility] Work Phone: Triglyceride [Mass/Vol] 141 mg/dL <199 [facility] Work Phone: Comment on above: The drugs N-Acetylcy steine and Metamizole may falsely depress this assay.Serum Triglycerides Reference Interval Normal <150 mg/dL Borderline high 150 - 199 mg/dL High 200 - 499 mg/dL Very High > or = 500 mg/dL WBC (Bld) [#/Vol] 5.8 10*3/uL 4.4-11.0 [facility] Work Phone: [phone] Blood erythrocytes count (nu mber/volume)on 03-31-2022 RBC (Bld) [#/Vol] 5.11 10*6/uL 4.2-5.4 [facility] Work Phone: [phone] Blood hemoglobin measurement (mass/volume)on 03-31-2022 Hemoglobin (Bld) [Mass/Vol] 15.2 g/dL 12.0-15.0 [facility] Work Phone: [phone] Blood platelet mean volumeon 03-31-2022 Platelet mean volume (Bld) [Entitic vol] 9.4 fL 6.2-12.0 [facility] Work Phone: [phone] Determination of erythrocyte mean corpuscular volume (MCV)on 03-31-2022 MCV (RBC) [Entitic vol] 88.5 fL 81-99 [facility] Work Phone: [phone] Hematocrit Auto (Bld) [Volum e fraction]on 03-31-2022 Hematocrit (Bld) [Volume fraction] 45.2 % 37-47 [facility] Work Phone: [phone] Laboratory - Chemistry and C hemistry - challengeon 03-31-2022 ALP [Catalytic activity/Vol] 98 U/L 45-117 [facility] Work Phone: [phone] ALT [Catalytic activity/Vol] 37 U/L 13-56 [facility] Work Phone: [phone] CO2 [Moles/Vol] 29.0 mmol/L 21.0-32.0 [facility] Work Phone: [phone] Globulin (S) [Mass/Vol] 3.5 g/dL 2.2-4.2 [facility] Work Phone: [phone] Urea nitrogen/Creatinine [Mass ratio] 17.1 mg/mg 10-20 [facility] Work Phone: [phone] Laboratory - Hematology and Cell countson 03-31-2022 Erythrocyte distribution width (RBC) [Entitic vol] 41.4 fL 35.1-43.9 [facility] Work Phone: [phone] Erythrocyte distribution width (RBC) [Ratio] 12.5 % 11.6-14.6 [facility] Work Phone: [phone] MCH (RBC) [Entitic mass] 29.7 pg 27.0-32.0 [facility] Work Phone: [phone] MCHC Auto (RBC) [Mass/Vol]on 03-31-2022 MCHC (RBC) [Mass/Vol] 33.6 g/dL 32-36 [facility] Work Phone: [phone] No Panel Informationon 03-31 Estimated GFR (MDRD) Amer 100 mL/min >60 [facility] Work Phone: [phone] Comment on above: GFR Calc Estimated GFR (MDRD) Non-Af Amer 82 mL/min >60 [facility] Work Phone: [phone] Comment on above: Non- GFR Calc Vitamin D 25-Hydroxy 47.8 ng/mL [facility] Work Phone: [phone] Comment on above: Vitamin D 25(OH) Sta tus Range Deficiency <20 ng/mL (50nmol/L) Insufficiency 20 - 30 ng/mL (50 - 75 nmol/L) Sufficiency 30 - 100 ng/mL (75 - 250 nmol/L) Toxicity >100 ng/mL (>250 nmol/L) Platelets bldon 03-31-2022 Platelets (Bld) [#/Vol] 307 10*3/uL 150-450 [facility] Work Phone: [phone] Serum or plasma albumin virgie urement (mass/volume)on 03-31-2022 Albumin [Mass/Vol] 3.6 g/dL 3.2-5.0 [facility] Work Phone: [phone] Serum or plasma albumin/glob ulin mass ratioon 03-31-2022 Albumin/Globulin [Mass ratio] 1.0 {ratio} 0.9-2.4 [facility] Work Phone: Serum or plasma calcium virgie urement (mass/volume)on 03-31-2022 Calcium [Mass/Vol] 8.9 mg/dL 8.5-10.1 [facility] Work Phone: [phone] Serum or plasma cholesterol in HDL measurement (mass/volume)on 03-31-2022 Cholesterol in HDL [Mass/Vol] 38 mg/dL >40 [facility] Work Phone: Comment on above: The drugs N-Acetylcy steine and Metamizole may falsely depress this assay. Reference Range HDL <40 mg/dL Low HDL Cholesterol HDL >or= 60 mg/dL High HDL Cholesterol Serum or plasma cholesterol in VLDL measurement (mass/volume)on 03-31-2022 Cholesterol in VLDL [Mass/Vol] 28 mg/dL 5-40 [facility] Work Phone: [phone] Serum or plasma creatinine m easurement (mass/volume)on 03-31-2022 Creatinine [Mass/Vol] 0.76 mg/dL 0.55-1.02 [facility] Work Phone: Comment on above: The validity of the calculated GFR & GFRAA in patients over 70 years has not been determined. Clinical correlation is essential. Serum or plasma low density lipoprotein (LDL) cholesterol measurement (mass/volume)on 03-31-2022 Cholesterol in LDL [Mass/Vol] 94 mg/dL 0-130 [facility] Work Phone: [phone] Serum or plasma urea nitroge n measurement (mass/volume)on 03-31-2022 Urea nitrogen [Mass/Vol] 13 mg/dL 7-18 [facility] Work Phone: [phone] Thin prep Papanicolaou smear with manual screeningon 03-31-2022 Thin prep Papanicolaou smear with manual screening 21 U/L 15-37 [facility] Work Phone: [phone] Thin prep Papanicolaou smear with manual screening 6 5-15 [facility] Work Phone: Vital Signs Date Time Vital Sign Value Performing Clinician Facility 07-26-2025 11:45-0400 Diastolic Blood Pressure Non-Invasive 64 mm[Hg] DR JAMES GR MD [facility] 07-26-2025 11:45-0400 Heart rate 76 /min DR JAMES GR MD [facility] 07-26-2025 11:45-0400 Respiratory rate 21 /min DR JAMES GR MD [facility] 07-26-2025 11:45-0400 Systolic Blood Pressure Non-Invasive 115 mm[Hg] DR JAMES GR MD [facility] 07-26-2025 11:39-0400 Diastolic Blood Pressure Non-Invasive 66 mm[Hg] DR JAMES GR MD [facility] 07-26-2025 11:39-0400 Heart rate 75 /min DR JAMES RG MD [facility] 07-26-2025 11:39-0400 Respiratory rate 15 /min DR JAMES GR MD [facility] 07-26-2025 11:39-0400 Systolic Blood Pressure Non-Invasive 103 mm[Hg] [facility] [place] 07-26-2025 11:36-0400 Diastolic Blood Pressure Non-Invasive 95 mm[Hg] DR JAMES GR MD [facility] 07-26-2025 11:36-0400 Heart rate 76 /min DR JAMES GR MD [facility] 07-26-2025 11:36-0400 Reason For Taking VItal Signs DR JAMES GR MD [facility] 07-26-2025 11:36-0400 Respiratory rate 16 /min DR JAMES GR MD [facility] 07-26-2025 11:36-0400 Systolic Blood Pressure Non-Invasive 114 mm[Hg] DR JAMES GR MD [facility] 07-26-2025 11:30-0400 Respiratory Rate - Anes 22 br/min DR JAMES GR MD [facility] 07-26-2025 11:25-0400 Respiratory Rate - Anes 38 br/min DR JAMES GR MD [facility] 07-26-2025 10:52-0400 Body temperature 98.42 [degF] DR JAMES GR MD [facility] 07-26-2025 10:52-0400 Heart rate 78 /min DR JAMES GR MD [facility] 07-26-2025 10:52-0400 Reason For Taking VItal Signs DR JAMES GR MD [facility] 07-26-2025 10:43-0400 Body height 157.[address] JAMES GR MD [facility] 07-26-2025 10:43-0400 Body weight 30.23 kg/m2 DR JAMES GR MD [facility] 07-26-2025 10:43-0400 Body weight [address] JAMES GR MD [facility] 06-30-2025 13:11-0400 Body height 157.48 cm Ricki DARLING Work Phone: [facility] 06-30-2025 13:11-0400 Body mass index (BMI) [Ratio] 30.7 kg/m2 Ricki Bakerpkins 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 Work Phone: [facility] 06-30-2025 13:11-0400 Body weight 76.2 kg Ricki Bakerpkins 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 Work Phone: [facility] 06-30-2025 13:11-0400 Diastolic blood pressure 71 mm[Hg] Ricki Bakerpkins 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 Work Phone: [facility] 06-30-2025 13:11-0400 Heart rate 79 /min Ricki Bakerpkins 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 Work Phone: [facility] 06-30-2025 13:11-0400 Respiratory rate 18 /min Ricki Bakerpkins 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 Work Phone: [facility] 06-30-2025 13:11-0400 Systolic blood pressure 114 mm[Hg] Ricki Bakerpkins 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 Work Phone: [facility] 01-06-2025 15:56-0400 Body height 157.48 cm Ricki Bakerpkins 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 Work Phone: [facility] 01-06-2025 15:56-0400 Body mass index (BMI) [Ratio] 32.7 kg/m2 Ricki Bakerpkins 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 Work Phone: [facility] 01-06-2025 15:56-0400 Body weight 81.19 kg Ricki Bakerpkins 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 Work Phone: [facility] 01-06-2025 15:56-0400 Diastolic blood pressure 78 mm[Hg] Ricki Bakerpkins 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 Work Phone: [facility] 01-06-2025 15:56-0400 Heart rate 69 /min Ricki Bakerpkins 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 Work Phone: [facility] 01-06-2025 15:56-0400 Respiratory rate 18 /min Ricki Bernalillo 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 Work Phone: [facility] 01-06-2025 15:56-0400 Systolic blood pressure 130 mm[Hg] Ricki GARCIAC Work Phone: [facility] 09-21-2024 15:26-0500 Body height 156.2 cm Aracelis Lozoya MD Work Phone: [facility] 09-21-2024 15:26-0500 Body mass index (BMI) [Ratio] 32.16 kg/m2 Aracelis Lozoya MD Work Phone: [facility] 09-21-2024 15:26-0500 Body weight 78.47 kg Aracelis Lozoya MD Work Phone: [facility] 09-21-2024 15:26-0500 Diastolic blood pressure 78 mm[Hg] Aracelis Lozoya MD Work Phone: [facility] 09-21-2024 15:26-0500 Systolic blood pressure 140 mm[Hg] Aracelis Lozoya MD Work Phone: [facility] 12-27-2023 11:51-0400 Body weight 73.48 kg Shay Aurin AUTOMOTIVE MAINTENANCE TECHNICIAN.INSIDE TECHNICAL SALES REPRESENTATIVE Work Phone: [facility] 12-27-2023 11:51-0400 Diastolic blood pressure 67 mm[Hg] Hsay Aurin AUTOMOTIVE MAINTENANCE TECHNICIAN.INSIDE TECHNICAL SALES REPRESENTATIVE Work Phone: [facility] 12-27-2023 11:51-0400 Heart rate 71 /min Shay Aurin AUTOMOTIVE MAINTENANCE TECHNICIAN.INSIDE TECHNICAL SALES REPRESENTATIVE Work Phone: [facility] 12-27-2023 11:51-0400 SaO2% (BldA) [Mass fraction] 96 % Shay Aurin AUTOMOTIVE MAINTENANCE TECHNICIAN.INSIDE TECHNICAL SALES REPRESENTATIVE Work Phone: [facility] 12-27-2023 11:51-0400 Systolic blood pressure 132 mm[Hg] Shay Aurin AUTOMOTIVE MAINTENANCE TECHNICIAN.INSIDE TECHNICAL SALES REPRESENTATIVE Work Phone: [facility] 09-17-2023 08:58-0500 Body height 157.48 cm 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 Ricki Griffin 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 Work Phone: [facility] 09-17-2023 08:58-0500 Body mass index (BMI) [Ratio] 29.3 kg/m2 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 Ricki Griffin 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 Work Phone: [facility] 09-17-2023 08:58-0500 Body weight 72.74 kg 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 Ricki Griffin 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 Work Phone: [facility] 09-17-2023 08:58-0500 Diastolic blood pressure 60 mm[Hg] 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 Ricki Griffin 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 Work Phone: [facility] 09-17-2023 08:58-0500 Heart rate 75 /min 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 Ricki Griffin 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 Work Phone: [facility] 09-17-2023 08:58-0500 Respiratory rate 18 /min 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 Ricki Griffin 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 Work Phone: [facility] 09-17-2023 08:58-0500 SaO2% (BldA) [Mass fraction] 94 % 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 Ricki Griffin 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 Work Phone: [facility] 09-17-2023 08:58-0500 Systolic blood pressure 110 mm[Hg] 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 Ricki Griffin 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 Work Phone: [facility] 07-12-2023 12:19-0400 Body weight 74.03 kg Shay Aurin AUTOMOTIVE MAINTENANCE TECHNICIAN.INSIDE TECHNICAL SALES REPRESENTATIVE Work Phone: [facility] 07-12-2023 12:19-0400 Diastolic blood pressure 76 mm[Hg] Shay Aurin AUTOMOTIVE MAINTENANCE TECHNICIAN.INSIDE TECHNICAL SALES REPRESENTATIVE Work Phone: [facility] 07-12-2023 12:19-0400 Heart rate 69 /min Shay Aurin AUTOMOTIVE MAINTENANCE TECHNICIAN.INSIDE TECHNICAL SALES REPRESENTATIVE Work Phone: [facility] 07-12-2023 12:19-0400 SaO2% (BldA) [Mass fraction] 98 % Shay Aurin AUTOMOTIVE MAINTENANCE TECHNICIAN.INSIDE TECHNICAL SALES REPRESENTATIVE Work Phone: [facility] 07-12-2023 12:19-0400 Systolic blood pressure 139 mm[Hg] Shay Teresa INSIDE TECHNICAL SALES REPRESENTATIVE Work Phone: [facility] 06-26-2023 13:34-0400 Body mass index (BMI) [Ratio] 32 kg/m2 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 Ricki Griffin 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 Work Phone: [facility] 06-26-2023 13:34-0400 Body weight 74.38 kg 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 Ricki Griffin 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 Work Phone: [facility] 06-26-2023 13:34-0400 Diastolic blood pressure 78 mm[Hg] 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 Ricki Griffin 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 Work Phone: [facility] 06-26-2023 13:34-0400 Heart rate 71 /min 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 Ricki Griffin 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 Work Phone: [facility] 06-26-2023 13:34-0400 Respiratory rate 18 /min 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 Ricki Griffin 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 Work Phone: [facility] 06-26-2023 13:34-0400 SaO2% (BldA) [Mass fraction] 96 % 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 Ricki Griffin 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 Work Phone: [facility] 06-26-2023 13:34-0400 Systolic blood pressure 144 mm[Hg] 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 Ricki Griffin 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 Work Phone: [facility] 05-14-2023 00:11-0400 Body weight 74.61 kg 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 Ricki Griffin 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 Work Phone: [facility] 05-10-2023 07:13-0400 Body height 157.48 cm 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 Ricki Griffin 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 Work Phone: [facility] 05-10-2023 07:13-0400 Body weight 74.61 kg 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 Ricki Griffin 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 Work Phone: [facility] 04-24-2023 18:30-0400 Diastolic blood pressure 79 mm[Hg] 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 Ricki Griffin 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 Work Phone: [facility] 04-24-2023 18:30-0400 Heart rate 82 /min 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 Ricki Bernalillo 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 Work Phone: [facility] 04-24-2023 18:30-0400 Respiratory rate 16 /min 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 Ricki Griffin 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 Work Phone: [facility] 04-24-2023 18:30-0400 SaO2% (BldA) [Mass fraction] 98 % 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 Ricki Bernalillo 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 Work Phone: [facility] 04-24-2023 18:30-0400 Systolic blood pressure 138 mm[Hg] 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 Ricki Griffin 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 Work Phone: [facility] 04-24-2023 14:22-0400 Body height 160.02 cm 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 Ricki Griffin 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 Work Phone: [facility] 04-24-2023 14:22-0400 Body mass index (BMI) [Ratio] 29.6 kg/m2 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 Ricki Griffin 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 Work Phone: [facility] 04-24-2023 14:22-0400 Body temperature 97 [degF] 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 Ricki Griffin 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 Work Phone: [facility] 04-24-2023 14:22-0400 Body weight 75.8 kg 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 Ricki Griffin 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 Work Phone: [facility] 03-25-2023 14:01-0400 Body height 160.02 cm 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 Ricki Griffin 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 Work Phone: [facility] 03-25-2023 14:01-0400 Body mass index (BMI) [Ratio] 30.1 kg/m2 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 Ricki Griffin 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 Work Phone: [facility] 03-25-2023 14:01-0400 Body weight 77.11 kg 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 Ricki Griffin 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 Work Phone: [facility] 03-25-2023 14:01-0400 Diastolic blood pressure 71 mm[Hg] 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 Ricki Griffin 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 Work Phone: [facility] 03-25-2023 14:01-0400 Heart rate 72 /min 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 Ricki Griffin 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 Work Phone: [facility] 03-25-2023 14:01-0400 Respiratory rate 18 /min 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 Ricki Bernalillo 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 Work Phone: [facility] 03-25-2023 14:01-0400 SaO2% (BldA) [Mass fraction] 100 % 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 Ricki Bernalillo 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 Work Phone: [facility] 03-25-2023 14:01-0400 Systolic blood pressure 110 mm[Hg] 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 Ricki Griffin 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 Work Phone: [facility] 03-13-2023 08:59-0400 Body height 160.02 cm 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 Ricki Bernalillo 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 Work Phone: [facility] 03-13-2023 08:59-0400 Body weight 73.02 kg 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 Ricki Bakerpkins 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 Work Phone: [facility] 03-13-2023 08:44-0400 Body mass index (BMI) [Ratio] 28.5 kg/m2 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 Ricki Bernalillo 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 Work Phone: [facility] 03-13-2023 08:44-0400 Diastolic blood pressure 69 mm[Hg] 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 Ricki Griffin 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 Work Phone: [facility] 03-13-2023 08:44-0400 Heart rate 66 /min 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 Ricki Griffin 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 Work Phone: [facility] 03-13-2023 08:44-0400 SaO2% (BldA) [Mass fraction] 96 % 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 Ricki Griffin 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 Work Phone: [facility] 03-13-2023 08:44-0400 Systolic blood pressure 117 mm[Hg] 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 Ricki Griffin 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 Work Phone: [facility] 03-13-2023 08:25-0400 Respiratory rate 66 /min 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 Ricki Bernalillo 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 Work Phone: [facility] 02-26-2023 10:40-0400 Body temperature 97.1 [degF] 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 Ricki Gaby 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 Work Phone: [facility] 02-26-2023 10:40-0400 Diastolic blood pressure 96 mm[Hg] 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 Ricki Mohrkins 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 Work Phone: [facility] 02-26-2023 10:40-0400 Heart rate 79 /min 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 Ricki Mohrkins 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 Work Phone: [facility] 02-26-2023 10:40-0400 Respiratory rate 16 /min 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 Ricki Griffin 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 Work Phone: [facility] 02-26-2023 10:40-0400 SaO2% (BldA) [Mass fraction] 98 % 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 Ricki Mohrkins 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 Work Phone: [facility] 02-26-2023 10:40-0400 Systolic blood pressure 114 mm[Hg] 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 Ricki Griffin 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 Work Phone: [facility] 02-26-2023 08:12-0400 Body temperature 97.1 [degF] 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 Ricki Mohrkins 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 Work Phone: [facility] 02-26-2023 08:12-0400 Diastolic blood pressure 96 mm[Hg] 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 Ricki Bernalillo 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 Work Phone: [facility] 02-26-2023 08:12-0400 Heart rate 79 /min 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 Ricki Mohrkins 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 Work Phone: [facility] 02-26-2023 08:12-0400 Respiratory rate 16 /min 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 Ricki Bakerpkins 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 Work Phone: [facility] 02-26-2023 08:12-0400 SaO2% (BldA) [Mass fraction] 98 % 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 Ricki Bakerpkins 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 Work Phone: [facility] 02-26-2023 08:12-0400 Systolic blood pressure 114 mm[Hg] 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 Ricki Griffin 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 Work Phone: [facility] 02-26-2023 03:05-0400 Body mass index (BMI) [Ratio] 28.5 kg/m2 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 Ricki Griffin 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 Work Phone: [facility] 02-26-2023 03:05-0400 Body weight 73.1 kg 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 Ricki Griffin 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 Work Phone: [facility] 02-23-2023 14:27-0400 Body height 160.02 cm 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 Ricki Bernalillo 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 Work Phone: [facility] 02-23-2023 08:15-0400 Inhaled oxygen flow rate 2 L/min 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 Ricki Griffin 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 Work Phone: [facility] 02-22-2023 20:18-0400 Body temperature 97.9 [degF] 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 Ricki Griffin 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 Work Phone: [facility] 02-22-2023 20:18-0400 Diastolic blood pressure 91 mm[Hg] 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 Ricki Griffin 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 Work Phone: [facility] 02-22-2023 20:18-0400 Heart rate 101 /min 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 Ricki Griffin 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 Work Phone: [facility] 02-22-2023 20:18-0400 Inhaled oxygen flow rate 4 L/min 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 Ricki Griffin 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 Work Phone: [facility] 02-22-2023 20:18-0400 Respiratory rate 22 /min 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 Ricki Griffin 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 Work Phone: [facility] 02-22-2023 20:18-0400 SaO2% (BldA) [Mass fraction] 92 % 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 Ricki Gaby 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 Work Phone: [facility] 02-22-2023 20:18-0400 Systolic blood pressure 176 mm[Hg] 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 Ricki Griffin 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 Work Phone: [facility] 02-22-2023 16:59-0400 Body height 160.02 cm 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 Ricki Griffin 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 Work Phone: [facility] 02-22-2023 16:59-0400 Body mass index (BMI) [Ratio] 29 kg/m2 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 Ricki Griffin 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 Work Phone: [facility] 02-22-2023 16:59-0400 Body weight 74.38 kg 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 Ricki Griffin 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 Work Phone: [facility] 02-22-2023 11:14-0400 Respiratory rate 22 /min 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 Rciki Griffin 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 Work Phone: [facility] 02-22-2023 10:33-0400 Diastolic blood pressure 83 mm[Hg] 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 Ricki Bernalillo 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 Work Phone: [facility] 02-22-2023 10:33-0400 Heart rate 65 /min 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 Ricki Griffin 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 Work Phone: [facility] 02-22-2023 10:33-0400 SaO2% (BldA) [Mass fraction] 96 % 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 Ricki Griffin 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 Work Phone: [facility] 02-22-2023 10:33-0400 Systolic blood pressure 144 mm[Hg] 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 Ricki Griffin 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 Work Phone: [facility] 02-22-2023 08:29-0400 Body height 160.02 cm 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 Ricki Griffin UTILITIES SERVICE INVESTIGATOR Work Phone: [facility] 02-22-2023 08:29-0400 Body mass index (BMI) [Ratio] 29.7 kg/m2 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 Ricki Bernalillo UTILITIES SERVICE INVESTIGATOR Work Phone: [facility] 02-22-2023 08:29-0400 Body temperature 98.2 [degF] 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 Ricki Bakerpkins UTILITIES SERVICE INVESTIGATOR Work Phone: [facility] 02-22-2023 08:29-0400 Body weight 76 kg 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 Ricki Gaby UTILITIES SERVICE INVESTIGATOR Work Phone: [facility] 08-14-2022 08:45-0400 Body height 160 cm Aracelis Lozoya MD Work Phone: [facility] 08-14-2022 08:45-0400 Body weight 78.47 kg Aracelis Lozoya MD Work Phone: [facility] 08-14-2022 08:45-0400 Diastolic blood pressure 76 mm[Hg] Aracelis Lozoya MD Work Phone: [facility] 08-14-2022 08:45-0400 Systolic blood pressure 132 mm[Hg] Aracelis Lozoya MD Work Phone: [facility] 08-09-2022 12:18-0400 Diastolic blood pressure 80 mm[Hg] Sony Cedeño MD Work Phone: [facility] 08-09-2022 12:18-0400 Heart rate 71 /min Sony Cedeño MD Work Phone: [facility] 08-09-2022 12:18-0400 Respiratory rate 16 /min Sony Cedeño MD Work Phone: [facility] 08-09-2022 12:18-0400 SaO2% (BldA) [Mass fraction] 94 % Sony Cedeño MD Work Phone: [facility] 08-09-2022 12:18-0400 Systolic blood pressure 146 mm[Hg] Sony Cedeño MD Work Phone: [facility] 08-09-2022 10:39-0400 Body temperature 97.2 [degF] Sony Cedeño MD Work Phone: [facility] 07-17-2022 14:54-0400 Body height 160 cm Sony Cedeño MD Work Phone: [facility] 07-17-2022 14:54-0400 Body temperature 96.8 [degF] Sony Cedeño MD Work Phone: [facility] 07-17-2022 14:54-0400 Body weight 78.47 kg Sony Cedeño MD Work Phone: [facility] 07-17-2022 14:54-0400 Diastolic blood pressure 64 mm[Hg] Sony Cedeño MD Work Phone: [facility] 07-17-2022 14:54-0400 Heart rate 68 /min Sony Cedeño MD Work Phone: [facility] 07-17-2022 14:54-0400 SaO2% (BldA) [Mass fraction] 96 % oSny Cedeño MD Work Phone: [facility] 07-17-2022 14:54-0400 Systolic blood pressure 124 mm[Hg] Sony Cedeño MD Work Phone: [facility] 07-14-2022 18:05-0400 Body height 157.48 cm [facility] 07-14-2022 18:05-0400 Body mass index (BMI) [Ratio] 30.3 kg/m2 [facility] 07-14-2022 18:05-0400 Body temperature 97.8 [degF] [facility] 07-14-2022 18:05-0400 Body weight 75.29 kg [facility] 07-14-2022 18:05-0400 Diastolic blood pressure 62 mm[Hg] [facility] 07-14-2022 18:05-0400 Heart rate 88 /min [facility] 07-14-2022 18:05-0400 Respiratory rate 16 /min [facility] 10-01-2022 18:05-0400 SaO2% (BldA) [Mass fraction] 98 % [facility] 07-14-2022 18:05-0400 Systolic blood pressure 128 mm[Hg] [facility] 07-12-2022 15:03-0400 Diastolic blood pressure 79 mm[Hg] [facility] 07-12-2022 15:03-0400 Heart rate 72 /min [facility] 07-12-2022 15:03-0400 Respiratory rate 16 /min [facility] 07-12-2022 15:03-0400 SaO2% (BldA) [Mass fraction] 94 % [facility] 07-12-2022 15:03-0400 Systolic blood pressure 173 mm[Hg] [facility] 07-12-2022 10:45-0400 Body height 157.48 cm [facility] Work Phone: 07-12-2022 10:45-0400 Body mass index (BMI) [Ratio] 30.4 kg/m2 [facility] 07-12-2022 10:45-0400 Body temperature 96.2 [degF] [facility] 07-12-2022 10:45-0400 Body weight 75.65 kg [facility] Encounters Encounter Date Encounter Type Care Provider Facility Start: 07-26-2025 End: 07-26-2025 ambulatory RICKI GRIFFIN AUTOMOTIVE MAINTENANCE TECHNICIAN - INSIDE TECHNICAL SALES REPRESENTATIVE Facility:[facility] Start: 07-26-2025 End: 07-26-[address] JAMES GR MD [facility] Start: 06-30-2025 End: 06-30-2025 Patient encounter procedure Austen Castro 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 -[facility] Work Phone: Start: 06-30-2025 End: 06-30-2025 ambulatory Ricki Griffin 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 Work Phone: -[facility] Start: 06-16-2025 End: 06-16-2025 ambulatory Ricki Griffin 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 Work Phone: -[facility] Start: 06-16-2025 End: 06-16-2025 Patient encounter procedure Ricki Griffin 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 -[facility] Work Phone: Start: 06-16-2025 End: 06-16-2025 ambulatory Ricki Griffin Facility:[facility] Start: 06-09-2025 End: 06-09-2025 ambulatory Ricki Griffin 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 Work Phone: -[facility] Start: 06-09-2025 End: 06-09-2025 Patient encounter procedure Ricki Griffin 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 -[facility] Work Phone: Start: 06-09-2025 End: 06-09-2025 ambulatory Ricki Griffin Facility:[facility] Start: 05-13-2025 End: 05-13-2025 ambulatory RICKI GRIFFIN AUTOMOTIVE MAINTENANCE TECHNICIAN - INSIDE TECHNICAL SALES REPRESENTATIVE Facility:[facility] Start: 05-13-2025 End: 05-13-2025 Patient encounter procedure RICKI GRIFFIN AUTOMOTIVE MAINTENANCE TECHNICIAN - INSIDE TECHNICAL SALES REPRESENTATIVE [facility] Start: 05-01-2025 End: 05-01-2025 ambulatory Ricki Griffin 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 Work Phone: -Laboratory Specimen Start: 05-01-2025 End: 05-01-2025 Patient encounter procedure Ricki Griffin 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 -Laboratory Specimen Work Phone: Start: 04-30-2025 End: 05-01-2025 ambulatory Ricki Griffin 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 Work Phone: -Laboratory Start: 04-30-2025 End: 04-30-2025 Patient encounter procedure Ricki Griffin 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 -Laboratory Work Phone: Start: 04-30-2025 End: 04-30-2025 ambulatory Ricki Griffin Facility:[facility] Start: 03-30-2025 Non-patient / Non-visit Lashay muñiz 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 -[facility] Work Phone: Start: 03-30-2025 ambulatory Lashay Prater NP Facili ty:[facility] Start: 03-29-2025 Non-patient / Non-visit [facility] Bill CLAY -[facility] Start: 03-29-2025 End: 03-29-2025 ambulatory Ricki Griffin 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 Work Phone: [facility] Work Phone: Start: 03-29-2025 End: 03-29-2025 Patient encounter procedure Austen Castro 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 -Cardiovascular Services Work Phone: Start: 03-29-2025 End: 03-29-2025 ambulatory Ricki Griffin Facility:[facility] Start: 03-12-2025 End: 03-12-2025 ambulatory Ricki Griffin 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 Work Phone: [facility] Work Phone: Start: 03-12-2025 End: 03-12-[address] Jose Antonio Reeves MD -Laboratory Work Phone: Start: 03-12-2025 End: 03-12-2025 ambulatory Jose Antonio Reeves Facility:[facility] Start: 01-06-2025 End: 01-06-2025 Patient encounter procedure Austen Castro NP-C -[facility] Work Phone: Start: 01-06-2025 End: 01-06-2025 ambulatory Ricki Griffin Facility:[facility] Start: 12-21-2024 End: 12-21-2024 Telephone encounter Aracelis Lozoya MD Work Phone: OB/Gynecology Comment on above: Results Start: 12-07-2024 End: 12-07-2024 Patient encounter procedure Ricki Griffin NP-C -Laboratory Work Phone: Start: 12-07-2024 End: 12-07-2024 ambulatory Ricki Griffin Facility:[facility] Start: 11-23-2024 End: 01-23-2025 Follow-up encounter Aracelis Lozoya MD Work Phone: OB/Gynecology Start: 11-19-2024 End: 11-19-2024 ambulatory ARACELIS LOZOYA Facility:[facility] Start: 11-19-2024 End: 11-19-2024 Subsequent hospital visit by physician Bone Density [facility] Work Phone: Radiology Comment on above: Encounter for screen ing for osteoporosis [Z13.820] Start: 09-21-2024 End: 09-21-2024 ambulatory ARACELIS LOZOYA Facility:[facility] Start: 09-21-2024 End: 09-21-2024 Patient encounter [...] encounter status Aracelis Lozoya MD Work Phone: [facility] Start: 09-16-2024 End: 09-16-2024 ambulatory RICKI GRIFFIN Facility:[facility] Start: 09-16-2024 End: 09-16-2024 Subsequent hospital visit by physician Screen Mammo [facility] Mammogram Comment on above: Encounter for screen ing mammogram for malignant neoplasm of breast [Z12.31] Start: 12-27-2023 End: 12-27-2023 ambulatory RICKI GRIFFIN Facility:[facility] Start: 12-27-2023 End: 12-27-2023 Patient encounter procedure Shay Teresa APRN.INSIDE TECHNICAL SALES REPRESENTATIVE Work Phone: Cardiology Comment on above: Chronic systolic hea rt failure (HCC) (Primary Dx); Primary hypertension; 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; Hyperlipidemia, unspecified hyperlipidemia type; Ischemic cardiomyopathy Start: 11-13-2023 End: 11-13-2023 ambulatory 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 Ricki Griffin NP Work Phone: [facility] Work Phone: Start: 11-13-2023 End: 11-13-2023 Patient encounter procedure UTILITIES SERVICE INVESTIGATOR-Fatimah Griffin UTILITIES SERVICE INVESTIGATOR Work Phone: [facility]-Laboratory Work Phone: Start: 09-19-2023 Non-patient / Non-visit 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 Meenu Griffin UTILITIES SERVICE INVESTIGATOR Work Phone: [facility] Work Phone: Start: 09-18-2023 Non-patient / Non-visit 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 Meenu Griffin UTILITIES SERVICE INVESTIGATOR Work Phone: [facility] Start: 09-18-2023 End: 09-18-2023 ambulatory 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 Ricki Griffin UTILITIES SERVICE INVESTIGATOR Work Phone: [facility] Work Phone: Start: 09-18-2023 End: 09-18-2023 Patient encounter procedure UTILITIES SERVICE INVESTIGATOR-Fatimah Griffin UTILITIES SERVICE INVESTIGATOR [facility] Work [facility] Start: 09-17-2023 End: 09-17-2023 Patient encounter procedure UTILITIES SERVICE INVESTIGATOR-Fatimah Griffin UTILITIES SERVICE INVESTIGATOR Work Phone: [facility] Work Phone: Start: 08-30-2023 End: 08-30-2023 Subsequent hospital visit by physician Screen Mammo [facility] Mammogram Comment on above: Encounter for screen ing mammogram for malignant neoplasm of breast [Z12.31] Start: 07-12-2023 End: 07-12-2023 ambulatory RICKI GRIFFIN [facility] Start: 07-12-2023 End: 07-12-2023 Patient encounter procedure Shay Teresa APRN.INSIDE TECHNICAL SALES REPRESENTATIVE Work Phone: Cardiology Comment on above: Chronic systolic hea rt failure (HCC) (Primary Dx); Primary hypertension; 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; Hyperlipidemia, unspecified hyperlipidemia type; Ischemic cardiomyopathy Start: 06-26-2023 End: 06-26-2023 Patient encounter procedure 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 Ricki Griffin UTILITIES SERVICE INVESTIGATOR Work Phone: [facility] Work Phone: Start: 06-07-2023 End: 06-07-2023 ambulatory RICKI GRIFFIN Facility:[facility] Start: 05-22-2023 End: 06-13-2023 ambulatory 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 Ricki Griffin UTILITIES SERVICE INVESTIGATOR Work Phone: [facility] Work Phone: Start: 05-22-2023 End: 06-13-2023 Discharged Recurring 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 Ricki Griffin UTILITIES SERVICE INVESTIGATOR Work Phone: [facility]-Cardiac Rehab Work Phone: Start: 05-22-2023 Registered Recurring 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 Froylan Griffin UTILITIES SERVICE INVESTIGATOR Work Phone: [facility]-Cardiac Rehab Work Phone: Start: 05-21-2023 Non-patient / Non-visit 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 Meenu Griffin UTILITIES SERVICE INVESTIGATOR Work Phone: [facility] Start: 05-21-2023 End: 05-21-2023 ambulatory 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 Ricki Griffin UTILITIES SERVICE INVESTIGATOR Work Phone: [facility] Work Phone: Start: 05-21-2023 End: 05-21-2023 Patient encounter procedure 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 Ricki Griffin UTILITIES SERVICE INVESTIGATOR Work Phone[facility] Work [facility] Start: 05-13-2023 End: 05-13-2023 ambulatory 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 Ricki Griffin UTILITIES SERVICE INVESTIGATOR Work Phone: [facility] Work Phone: Start: 05-13-2023 End: 05-13-2023 Discharged Recurring 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 Ricki Griffin UTILITIES SERVICE INVESTIGATOR Work Phone: [facility]-Cardiac Rehab Work Phone: Start: 05-03-2023 End: 05-03-2023 Patient encounter procedure 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 Ricki Griffin UTILITIES SERVICE INVESTIGATOR Work Phone: [facility]-Laboratory Work Phone: Start: 04-24-2023 End: 04-24-2023 Emergency department patient visit 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 Ricki Griffin UTILITIES SERVICE INVESTIGATOR Work Phone: [facility]-Emergency Department Work Phone: Start: 04-22-2023 Registered Recurring 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 Froylan Griffin UTILITIES SERVICE INVESTIGATOR Work Phone: [facility]-Cardiac Rehab Work Phone: Start: 04-12-2023 End: 04-12-2023 ambulatory 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 Ricki Griffin UTILITIES SERVICE INVESTIGATOR Work Phone: [facility] Work Phone: Start: 04-12-2023 End: 04-12-2023 Discharged Recurring 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 Ricki Griffin UTILITIES SERVICE INVESTIGATOR Work Phone: [facility]-Cardiac Rehab Work Phone: Start: 03-25-2023 Telephone encounter Melissa clarke APRN.INSIDE TECHNICAL SALES REPRESENTATIVE Work Phone: [facility] Cardiology Padmini Comment on above: [employer] 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 - [employer] Start: 03-25-2023 End: 03-25-2023 Patient encounter procedure 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 Ricki Griffin UTILITIES SERVICE INVESTIGATOR Work Phone: [facility] Work Phone: Start: 03-22-2023 Non-patient / Non-visit 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 Meenu Griffin UTILITIES SERVICE INVESTIGATOR Work Phone: [facility] Work Phone: Start: 03-14-2023 End: 03-14-2023 Patient encounter procedure 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 Ricki Griffin UTILITIES SERVICE INVESTIGATOR Work Phone: [facility] Start: 03-13-2023 End: 03-13-2023 ambulatory 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 Ricki Griffin UTILITIES SERVICE INVESTIGATOR Work Phone: [facility] Work Phone: Start: 03-13-2023 End: 03-13-2023 Patient encounter procedure 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 Ricki Griffin UTILITIES SERVICE INVESTIGATOR Work Phone: [facility]-Cardiac Rehab Start: 03-07-2023 End: 03-07-2023 ambulatory SHAY AURIN Facility:[facility] Start: 03-04-2023 Non-patient / Non-visit 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 Meenu Griffin UTILITIES SERVICE INVESTIGATOR Work Phone: [place] Start: 02-26-2023 End: 03-01-2023 Evaluation and management of inpatient OLY GUZMÁN Facility:[facility] Start: 02-26-2023 Non-patient / Non-visit 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 Meenu Griffin UTILITIES SERVICE INVESTIGATOR Work Phone: [facility] Start: 02-26-2023 Non-patient / Non-visit 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 Meenu Griffin UTILITIES SERVICE INVESTIGATOR Work Phone: [place] Start: 02-25-2023 Non-patient / Non-visit 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 Meenu Griffin UTILITIES SERVICE INVESTIGATOR Work Phone: [facility] Start: 02-25-2023 Non-patient / Non-visit 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 Meenu Griffin UTILITIES SERVICE INVESTIGATOR Work Phone: [facility] Start: 02-24-2023 Non-patient / Non-visit 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 Meenu Griffin UTILITIES SERVICE INVESTIGATOR Work Phone: [facility] Start: 02-23-2023 Non-patient / Non-visit 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 Meenu Griffin UTILITIES SERVICE INVESTIGATOR Work Phone: [facility] Start: 02-23-2023 Non-patient / Non-visit 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 Meenu Griffin UTILITIES SERVICE INVESTIGATOR Work Phone: [place] Start: 02-22-2023 End: 02-26-2023 Evaluation and management of inpatient UTILITIES SERVICE INVESTIGATOR-Fatimah Griffin UTILITIES SERVICE INVESTIGATOR Work Phone: [facility]-Intensive Care Unit Start: 02-22-2023 End: 02-22-2023 Emergency department patient visit UTILITIES SERVICE INVESTIGATOR-Fatimah Griffin UTILITIES SERVICE INVESTIGATOR Work Phone: [facility]-Emergency Department Start: 02-21-2023 Non-patient / Non-visit UTILITIES SERVICE INVESTIGATOR-Fatimah Griffin UTILITIES SERVICE INVESTIGATOR Work Phone: [place] Start: 02-21-2023 End: 02-21-2023 ambulatory 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 Ricki Griffin UTILITIES SERVICE INVESTIGATOR Work Phone: [facility] Work Phone: Start: 02-21-2023 End: 02-21-2023 Patient encounter procedure UTILITIES SERVICE INVESTIGATOR-Fatimah Griffin UTILITIES SERVICE INVESTIGATOR Work Phone: [facility]-Cardiovascular Services Start: 02-08-2023 End: 02-08-2023 Patient encounter procedure UTILITIES SERVICE INVESTIGATOR-Fatimah Griffin UTILITIES SERVICE INVESTIGATOR Work Phone: [facility]-Laboratory Start: 11-28-2022 Registered Recurring UTILITIES SERVICE INVESTIGATOR-Fatimah Griffin UTILITIES SERVICE INVESTIGATOR Work Phone: [facility]-Physical Therapy Start: 10-20-2022 End: 10-20-2022 ambulatory [facility] Work Phone: Start: 10-20-2022 End: 10-20-2022 Patient encounter procedure [facility]-Radiology, [facility] Start: 09-21-2022 End: 09-26-2022 ambulatory SAMEER HILLMAN AUTOMOTIVE MAINTENANCE TECHNICIAN-INSIDE TECHNICAL SALES REPRESENTATIVE Facility:[facility] Start: 09-21-2022 End: 09-25-2022 Outreach Lab SAMEER HILLMAN AUTOMOTIVE MAINTENANCE TECHNICIAN-INSIDE TECHNICAL SALES REPRESENTATIVE [facility] Start: 09-07-2022 End: 09-07-2022 ambulatory Jackie Graf OLIVEIRA Work Phone: General Surgery Comment on above: Other gastritis with out bleeding (Primary Dx) Start: 09-07-2022 End: 09-07-2022 Telemedicine consultation with patient Jackie Graf OLIVEIRA Work Phone: [facility] Start: 08-15-2022 Documentation procedure Mammog anthony Coordinator [facility] Start: 08-15-2022 Letter encounter Mammography Coordinator [facility] Department Start: 08-14-2022 End: 08-14-2022 Subsequent hospital visit by physician Screen Mammo [facility] Mammogram Start: 08-14-2022 End: 08-14-2022 Patient [...] 07-14-2022 End: 07-14-2022 Emergency department patient visit [facility]-Emergency Department Start: 07-12-2022 End: 07-12-2022 Emergency department patient visit [facility]-Emergency Department Start: 03-31-2022 End: 03-31-2022 Patient encounter procedure [facility]-Laboratory Procedures Date Procedure Procedure Detail Performing Clinician Start: 06-16-2025 Immature reticulocyte fraction Ricki gonsalezkins 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 Work Phone: Start: 06-16-2025 Total iron binding capacity measurement Ricki Griffin 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 Work Phone: Start: 06-09-2025 Vitamin D, 25-hydroxy measurement Neeraj d Bernalillo 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 Work Phone: Comment on above: Vitamin D StatusDeficiency: <20 ng/mL (5 0nmol/L)Insufficiency: 20-30 ng/mL (50-75 nmol/L)Sufficiency: 30-100 ng/mL (75-250 nmol/L)Toxicity: >100 ng/mL (>250 nmol/L) Start: 12-07-2024 Measurement of renal function Ricki mackey 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 Work Phone: Comment on above: GFR Calc Start: 12-07-2024 Microalbuminuria measurement Ricki cornelius 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 Work Phone: Start: 12-07-2024 Urine microalbumin/creatinine ratio measurement Ricki Griffin 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 Work Phone: Start: 12-07-2024 Vitamin D, 25-hydroxy measurement Neeraj d Gaby 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 Work Phone: Comment on above: Vitamin D 25(OH) Status Range Deficiency <20 ng/mL (50nmol/L) Insufficiency 20 - 30 ng/mL (50 - 75 nmol/L) Sufficiency 30 - 100 ng/mL (75 - 250 nmol/L) Toxicity >100 ng/mL (>250 nmol/L) Start: 09-16-2024 Screening digital breast tomosynthesis zaki Lozoya MD Work Phone: Start: 02-27-2023 History of appendectomy History of appendectomy Melissa Koroma APRN.CNP Work Phone: Start: 02-27-2023 History of cholecystectomy History of cholecystectomy Melissa Koroma AUTOMOTIVE MAINTENANCE TECHNICIAN.INSIDE TECHNICAL SALES REPRESENTATIVE Work Phone: Start: 02-23-2023 Streptococcus pneumoniae Antigen (M 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 Ricki Griffin UTILITIES SERVICE INVESTIGATOR Work Phone: Start: 02-22-2023 Plain chest X-ray 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 Ricki Griffin UTILITIES SERVICE INVESTIGATOR Work Phone: Start: 02-22-2023 Computed tomography of abdomen and pelvis with intravenous contrast 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 Rikci Griffin UTILITIES SERVICE INVESTIGATOR Work Phone: Start: 02-22-2023 Bacteria identified in Blood by Culture 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 Ricki Griffin UTILITIES SERVICE INVESTIGATOR Work Phone: Start: 02-08-2023 Plain chest X-ray 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 Ricki Griffin UTILITIES SERVICE INVESTIGATOR Work Phone: Start: 10-20-2022 Plain x-ray of [...] panel - Serum or Plasma Shay Dangelo AUTOMOTIVE MAINTENANCE TECHNICIAN.INSIDE TECHNICAL SALES REPRESENTATIVE Work Phone: Bacteria identified in Blood by Culture 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 Ricki Bakerpkins UTILITIES SERVICE INVESTIGATOR Work Phone: Cardiac catheterization SOMMER HILLMAN AUTOMOTIVE MAINTENANCE TECHNICIAN-INSIDE TECHNICAL SALES REPRESENTATIVE Cholecystectomy SAMEER REESE AUTOMOTIVE MAINTENANCE TECHNICIAN-INSIDE TECHNICAL SALES REPRESENTATIVE Entire heart (body structure) SAMEER HILLMAN AUTOMOTIVE MAINTENANCE TECHNICIAN-INSIDE TECHNICAL SALES REPRESENTATIVE Comment on above: stent History of appendectomy History of appendectomy History of cholecystectomy Hx of cholecys tectomy MRI guided biopsy of right breast SAMEER HILLMAN AUTOMOTIVE MAINTENANCE TECHNICIAN-INSIDE TECHNICAL SALES REPRESENTATIVE Placement of stent i n cardiac conduit SAMEER HILLMAN AUTOMOTIVE MAINTENANCE TECHNICIAN-INSIDE TECHNICAL SALES REPRESENTATIVE Plan of Treatment Date Care Activity Detail Author Start: 09-21-2029 Screening for malignant neoplasm of cervix Cervical Cancer Screening [facility] Start: 09-13-2026 Colonoscopy COLONOSCOPY [facility] Start: 09-13-2026 COLORECTAL CANCER SCREENING COLORECTAL CANCER SCREENING [facility] Start: 09-13-2026 Screening for malignant neoplasm of colon [facility] Start: 05-16-2026 HPV TESTING HPV TESTING [facility] Start: 05-16-2026 PAP TESTING PAP TESTING [facility] Start: 05-16-2026 Screening for malignant neoplasm of cervix [facility] Start: 03-01-2026 DIABETES SCREEN DIABETES SCREEN [facility] Start: 03-01-2026 Diabetes Screening Diabetes Screening [facility] Start: 09-23-2025 End: 09-23-2025 Patient encounter procedure 09/23/2025 11:20 AM EST Office Visit OB/Gynecology [address] [place] [address] Aracelis Mccormick MD [address] [place] [address] Annual OB/Gynecology Comment on above: Annual Start: 09-23-2025 End: 09-23-2025 Patient encounter procedure 09/23/2025 10:10 AM EST Appointment Mammogram [address] [place] [address] Encounter for screening mammogram for breast cancer [Z12.31] Mammogram Comment on above: Encounter for screening mammogram for br east cancer [Z12.31] Start: 09-16-2025 Screening for malignant neoplasm of breast Mammogram Screening [facility] Start: 11-19-2024 End: 11-19-2024 Patient encounter procedure 11/19/2024 3:25 PM EST Appointment Radiology [address] [place] [id number] Asymptomatic postmenopausal status [Z78.0] Radiology Comment on above: Asymptomatic postmenopausal status [Z78. 0] Start: 09-17-2024 End: 09-17-2024 Patient encounter procedure 09/17/2024 1:20 PM EST Office Visit OB/Gynecology [address] [place] [address] Aracelis Mccormick MD [address] [place] [address] 2 year annual OB/Gynecology Comment on above: 2 year annual Start: 08-30-2024 Screening for malignant neoplasm of breast Mammogram Screening [facility] Start: 06-14-2024 Covid-19 Vaccine () Covid-19 Vaccine () [facility] Start: 06-14-2024 Influenza vaccination Influenza Vaccine (#1) [facility] Start: 03-07-2024 BP CONTROLLED (<130/80) BP CONTROLLED (<130/80) [facility] Start: 02-28-2024 PNEUMOCOCCAL (2 - PCV) PNEUMOCOCCAL (2 - PCV) [facility] Start: 02-28-2024 Pneumococcal vaccination [facility] Start: 02-28-2024 Pneumococcal Vaccine: 50+ (2 of 2 - PCV) Pneumococcal Vaccine: 50+ (2 of 2 - PCV) [facility] Start: 10-14-2023 Depression Assessment Depression Assessment [facility] Start: 08-14-2023 Mammography [facility] Start: 07-17-2023 BP CONTROLLED (<130/80) BP CONTROLLED (<130/80) [facility] Start: 06-14-2023 Covid-19 Vaccine () Covid-19 Vaccine () [facility] Start: 06-14-2023 Influenza vaccination [facility] Start: 03-04-2023 Patient referral [facility] Work Phone: Start: 02-28-2023 Electrocardiographic procedure [facility] Start: 02-27-2023 Electrocardiographic procedure [facility] Start: 02-26-2023 Patient discharge [facility] Start: 02-25-2023 Cardiac monitoring [facility] Start: 02-25-2023 Cardiac rehabilitation - phase 1 [facility] Start: 02-25-2023 Notification of physician [facility] Start: 02-25-2023 Patient discharge [facility] Start: 02-25-2023 Systemic arterial pressure monitoring [facility] Start: 02-25-2023 Taking patient vital signs [facility] Start: 02-25-2023 Vascular disease risk assessment [facility] Start: 02-25-2023 Vital signs measurements [facility] Start: 02-25-2023 [facility] Start: 02-23-2023 Referral to parts washer [facility] Start: 02-22-2023 Blood culture [facility] Start: 02-22-2023 Application of intermittent pneumatic compression device [facility] Start: 02-22-2023 Following clinical pathway protocol [facility] Start: 02-22-2023 Aspiration precautions [facility] Start: 02-22-2023 Assessment of risk of venous thromboembolism [facility] Start: 02-22-2023 Cardiac monitoring [facility] Start: 02-22-2023 Catheterization of vein [facility] Start: 02-22-2023 Chart related administrative procedure [facility] Start: 02-22-2023 Insertion of catheter into peripheral vein [facility] Start: 02-22-2023 Measuring intake and output [facility] Start: 02-22-2023 Notification of physician [facility] Start: 02-22-2023 Oxygen therapy [facility] Start: 02-22-2023 Providing care according to standard [facility] Start: 02-22-2023 Referral to gastroenterology service [facility] Start: 02-22-2023 Vital signs measurements [facility] Start: 02-22-2023 [facility] Start: 02-22-2023 Verification routine [facility] Start: 02-22-2023 End: 02-22-2023 Blood culture [facility] Start: 02-22-2023 Legionella pneumophila Ag [Presence] in Urine [facility] Start: 02-22-2023 Streptococcus pneumoniae antigen assay [facility] Start: 02-22-2023 Admission procedure [facility] Start: 02-22-2023 Patient referral to dietitian [facility] Start: 10-14-2022 DEPRESSION ASSESSMENT [facility]PRESS[facility]ESSMENT [facility] [facility] Start: 06-14-2022 Influenza vaccination INFLUENZA (#1) [facility] Start: 05-16-2022 Mammography MAMMOGRAM [facility] Start: 2022 RSV Vaccine (1 - 1-dose 60+ series) RSV Vaccine (1 - 1-dose 60+ series) [facility] Start: 2022 RSV Vaccine (1 - Risk 60-74 years 1-dose series) RSV Vaccine (1 - Risk 60-74 years 1-dose series) [facility] Start: 11-23-2021 COVID-19 VACCINE (5 - Booster for Pfizer series) COVID-19 VACCINE (5 - Booster for Pfizer series) [facility] Start: 11-23-2021 COVID-19 VACCINE (5 - Booster) COVID-19 VACCINE (5 - Booster) [facility] Start: 11-23-2021 Covid-19 Vaccine (6 - Pfizer series) Covid-19 Vaccine (6 - Pfizer series) [facility] Start: 10-14-2021 DEPRESSION ASSESSMENT DEPRESSION ASSESSMENT [facility] Start: 08-22-2019 DIABETES SCREEN DIABETES SCREEN [facility] Start: 08-02-2017 Lipid 1996 panel - Serum or Plasma Lipid Screening [facility] Start: 08-02-2017 Lipid panel Lipid Screening [facility] Start: 08-02-2017 LIPID SCREEN LIPID SCREEN [facility] Start: 2012 SHINGRIX VACCINE (1 of 2) SHINGRIX VACCINE (1 of 2) [facility] Start: 2007 COLOGUARD (FIT-DNA) COLOGUARD (FIT-DNA) [facility] Start: [address] COLONOGRAPHY [facility] Start: 2007 FECAL OCCULT BLOOD FECAL OCCULT BLOOD [facility] Start: 2007 Screening for malignant neoplasm of colon [facility] Start: 2007 SIGMOIDOSCOPY SIGMOIDOSCOPY [facility] Start: 1992 Zoledronic acid therapy ALPHA-1 ANTITRYPSIN DEFICIENCY SCREENING [facility] Start: 1981 Urine microalbumin profile [place] [facility] Start: 1980 ANNUAL PCP TEAM CHRONIC DISEASE VISIT ANNUAL PCP TEAM CHRONIC DISEASE VISIT [facility] Start: 1980 Anxiety Screening Anxiety Screening [facility] Start: 1980 BP CONTROLLED (<130/80) BP CONTROLLED (<130/80) [facility] Start: 1980 Depression Screening Depression Screening [facility] Start: 1980 Hepatitis B surface antibody level LDL CHOLESTEROL [facility] Start: 1980 HEPATITIS C SCREENING HEPATITIS C SCREENING [facility] Start: 1980 Hepatitis C screening Hepatitis C Screening [facility] Start: 1980 HIV SCREENING HIV SCREENING [facility] Start: 1980 HIV screening HIV Screening [facility] Start: 1980 SPIROMETRY SPIROMETRY [facility] Start: 1968 PNEUMOCOCCAL (1 - PCV) PNEUMOCOCCAL (1 - PCV) [facility] Bacteria identified in Blood by Culture Blood Culture [facility] End: 10-21-2025 BD DXA TRABECULAR BONE SCORE (TBS) BD DXA TRABECULAR BONE SCORE (TBS) Radiology Routine Encounter for screening for osteoporosis Asymptomatic postmenopausal status 1 Occurrences starting 09/21/2024 until 10/21/2025 [facility] Comment on above: 1 Occurrences starting 09/21/2024 until 10/21/2025 BD DXA TRABECULAR JOHNATHON NE SCORE (TBS) BD DXA TRABECULAR BONE SCORE (TBS) Radiology Routine Encounter for screening for osteoporosis Asymptomatic postmenopausal status 11/19/2024 3:47 PM EST [facility] End: 10-21-2025 DBT Breast - bilateral screening JON SCREENING W JOSHUA Radiology Routine Encounter for screening mammogram for breast cancer 1 Occurrences starting 09/21/2024 until 10/21/2025 [facility] Work Phone: Comment on above: 1 Occurrences starting 09/21/2024 until 10/21/2025 End: 09-13-2023 Dxa bone density study 1/> sites axial skel DXA-AXIAL SKELETON Radiology Routine Screening for osteoporosis 1 Occurrences starting 08/14/2022 until 09/13/2023 [facility] Work Phone: Comment on above: 1 Occurrences starting 08/14/2022 until 09/13/2023 End: 10-21-2025 DXA Skeletal system.axial Views for bone density DXA-AXIAL SKELETON Radiology Routine Encounter for screening for osteoporosis Asymptomatic postmenopausal status 1 Occurrences starting 09/21/2024 until 10/21/2025 [facility] Comment on above: 1 Occurrences starting 09/21/2024 until 10/21/2025 DXA Skeletal system. axial Views for bone density DXA-AXIAL SKELETON Radiology Routine Encounter for screening for osteoporosis Asymptomatic postmenopausal status 11/19/2024 3:47 PM EST [facility] Work Phone: End: 07-17-2023 EGD DIAGNOSTIC EGD DIAGNOSTIC Endoscopy Routine Epigastric pain Nausea and vomiting, unspecified vomiting type 1 Occurrences starting 07/17/2022 until 07/17/2023 [facility] Work Phone: Comment on above: 1 Occurrences starting 07/17/2022 until 07/17/2023 Lactic [address] [facility] Work Phone: PAP TEST PAP TEST Lab [facility] Encounter for screening for human papillomavirus (HPV) Pap smear for cervical cancer screening 09/21/2024 3:58 PM EST [facility] Patient Education [facility] Work Phone: Patient referral [facility] Work Phone: [facility] Immunizations Immunization Date Immunization Notes Care Provider [facility] 02-27-2023 pneumococcal polysaccharide vaccine, 23 valent Melissa Koroma AUTOMOTIVE MAINTENANCE TECHNICIAN.INSIDE TECHNICAL SALES REPRESENTATIVE Work Phone: [facility] 01-27-2021 SARS-CoV-2 mRNA (tozinameran) vaccine SAMEER HILLMAN AUTOMOTIVE MAINTENANCE TECHNICIAN-INSIDE TECHNICAL SALES REPRESENTATIVE [facility] 01-26-2021 COVID-19 original vaccine, age 12+ yr, monovalent ([employer] - PURPLE TOP) Sony Cedeño MD Work Phone: [facility] Work Phone: 01-06-2021 SARS-CoV-2 mRNA (tozinameran) vaccine SAMEER HILLMAN AUTOMOTIVE MAINTENANCE TECHNICIAN-INSIDE TECHNICAL SALES REPRESENTATIVE [facility] 12-26-2020 COVID-19 original vaccine, age 12+ yr, monovalent ([employer] - PURPLE TOP) Sony Cedeño MD Work Phone: [facility] Work Phone: Payers Date Payer Category Payer Self-pay [id number] 2019 Private Health Insurance [id number] 2015 Blue Cross Blue [facility] BLUE ACCE PPO [id number] 2015 Unknown [facility] [id number] 2015-Present [phone] [place], [place] [id number] O [id number] 2015 Unknown [id number] 1960 Unknown [id number]. [id number] 1960 Unknown [id number]. 2.62 1960 Unknown [id number]. [id number] Unknown [facility] PACKAGE PLAN [phone] [id number] Unknown [id number] Unknown [id number]. 2.462 Unknown [id number]. 2.462 Unknown [id number]. 2.462 Unknown [id number] [id number]. 2.462 Unknown [id number] [id number]. 2.462 Unknown [id number] [id number]. 2.462 Unknown [id number] [id number]. 2.462 Unknown [id number] [id number]. 2.462 Unknown [id number] [id number]. 2.462 Unknown [id number]. 2.462 Unknown [id number]. 2.462 Social History Date Type Detail Facility Start: 04-20-2021 End: 09-17-2023 Tobacco smoking status GAIS Unknown if ever smoked [facility] Start: 2021 Occasional [facility] Start: 2021 None [facility] Start: 2021 Homeless [facility] Start: 2021 Cigarettes [facility] Start: 1960 Sex Assigned At Female A [facility] Start: 07-06-2015 Tobacco smoking stat us GAIS Smokes tobacco daily [facility] Start: 02-22-2003 End: 02-22-2023 History of tobacco use Cigarette Smoker [facility] Start: 07-06-2015 End: 12-27-2023 Cigarettes smoked current (pack per day) - Reported 0.5 [facility] Start: 07-06-2015 End: 09-21-2024 Tobacco use and exposure Smokeless tobacco non-user [facility] Start: 07-17-2022 Alcohol intake Current non-dr dobie worker of alcohol (finding) [facility] Start: 1960 Sex Assigned At Not on file [facility] Start: 07-07-2022 End: 08-14-2022 Exposure to SARS-CoV-2 (event) Not sure [facility] Start: 08-14-2022 End: 09-21-2024 Alcohol intake Current drinker of alcohol (finding) [facility] Start: 07-03-2019 Tobacco smoking status Heavy t obacco smoker (finding) [facility] Start: 02-27-2023 End: 09-21-2024 Tobacco smoking status NHIS Ex-smoker [facility] Work Phone: Start: 02-22-2003 End: 02-22-2023 History of tobacco use Current smoker [facility] Work Phone: Start: 07-12-2023 End: 12-27-2023 Tobacco use panel [facility] Start: 07-26-2025 National Score (1-10 0), lower number is lower risk 78 [facility] Start: 01-06-2025 End: 06-10-2025 Tobacco smoking status NHIS Current Light tobacco smoker [facility] Sexual Orientation [facility] Start: 09-07-2019 Sex Female (finding) [facility] Medical Equipment Procedure Code Equipment Code Equipment Origin al Text Equipment Identifier Dates Drug-eluting coronary artery stent, [id number] [id number]-coated ()[id number] FDA Start: 02-25-2023 Goals Date Patient Goal Desired Activity /State Functional Status Date Assessment Result Facility 07-26-2025 Functional Status Repositions self [facility] 03-01-2023 Are you deaf, or do you have serious difficulty hearing No 03/01/2023 4:39 PM Zak Sharma, RN No [facility] 03-01-2023 Are you blind, or do you have serious difficulty seeing, even when wearing glasses No 03/01/2023 4:39 PM EDZak Canales, RN No [facility] 03-01-2023 Do you have serious difficulty walking or climbing stairs No 03/01/2023 4:39 PM EDZak Canales, RN No [facility] 03-01-2023 Do you have difficul ty dressing or bathing No 03/01/2023 4:39 PM EDZak Canales, RN [facility] 03-01-2023 Because of a physica l, mental, or emotional condition, do you have difficulty doing errands alone such as visiting a physician's office or shopping No 03/01/2023 4:39 PM Zak Sharma, RN No [facility] 02-26-2023 Functional status Patient Activi ty Ambulates;Up ad mallika [facility] Work Phone: 02-26-2023 Functional status Ambulates;Up ad mallika [facility] Work Phone: 02-26-2023 Functional status Activity Abili ty Independent [facility] Work Phone: 02-25-2023 Functional status Assistive Devices None [facility] Work Phone: 02-25-2023 Functional status Tolerates Activity Well [facility] Work Phone: Mental Status Date Assessment Result Facility 07-26-2025 Mental Status Oriented x 4 [facility] 03-01-2023 Because of a physica l, mental, or emotional condition, do you have serious difficulty concentrating, remembering, or making decisions No 03/01/2023 4:39 PM EDZak Canales, RN No [facility] 02-26-2023 Cognitive function Voice/Name [facility] Work Phone: 02-22-2023 Cognitive function Level Of Cons ciousness Awake;Alert;Appropriate;Fol lows Commands [facility] Work Phone: 02-22-2023 Cognitive function Voice/Name [facility] Work Phone: Clinical Notes 09-10-2012 to 07-26-2025 Note Date & Type Note Facility 07-26-2025 Hospital Discharge instructions Patient Education 07/26/2025 11:10:02 Monitored Anesthesia Care, Care After Monitored Anesthesia Care, Care After These instructions provide you with information about caring for yourself after your procedure. Your health care provider may also give you more specific instructions. Your treatment has been planned according to current medical practices, but problems sometimes occur. Call your health care provider if you have any problems or questions after your procedure. What can I expect after the procedure? After your procedure, you may: Feel sleepy for several hours. Feel clumsy and have poor balance for several hours. Feel forgetful about what happened after the procedure. Have poor judgment for several hours. Feel nauseous or vomit. Have a sore throat if you had a breathing tube during the procedure. Follow these instructions at home: For at least 24 hours after the procedure: Have a responsible adult stay with you. It is important to have someone help care for you until you are awake and alert. Rest as needed. Do not: ?Participate in activities in which you could fall or become injured. ?Drive. ?Use heavy machinery. ?Drink alcohol. ?Take sleeping pills or medicines that cause drowsiness. ?Make important decisions or sign legal documents. ?Take care of children on your own. Eating and drinking Follow the diet that is recommended by your health care provider. If you vomit, drink water, juice, or soup when you can drink without vomiting. Make sure you have little or no nausea before eating solid foods. General instructions Take oumi-yqt-nhcganf and prescription medicines only as told by your health care provider. If you have sleep apnea, surgery and certain medicines can increase your risk for breathing problems. Follow instructions from your health care provider about wearing your sleep device: ?Anytime you are sleeping, including during daytime naps. ?While taking prescription pain medicines, sleeping medicines, or medicines that make you drowsy. If you smoke, do not smoke without supervision. Keep all follow-up visits as told by your health care provider. This is important. Contact a health care provider if: You keep feeling nauseous or you keep vomiting. You feel light-headed. You develop a rash. You have a fever. Get help right away if: You have trouble breathing. Summary For several hours after your procedure, you may feel sleepy and have poor judgment. Have a responsible adult stay with you for at least 24 hours or until you are awake and alert. This information is not intended to replace advice given to you by your health care provider. Make sure you discuss any questions you have with your health care provider. Document Released: 01/20/2017 Document Revised: 12/29/2018 Document Reviewed: 01/20/2017 [employer] Patient Education 2020 [place]. 07/26/2025 11:09:55 Upper Endoscopy, Adult, Care After Upper Endoscopy, Adult, Care After This sheet gives you information about how to care for yourself after your procedure. Your health care provider may also give you more specific instructions. If you have problems or questions, contact your health care provider. What can I expect after the procedure? After the procedure, it is common to have: A sore throat. Mild stomach pain or discomfort. Bloating. Nausea. Follow these instructions at home: Follow instructions from your health care provider about what to eat or drink after your procedure. Return to your normal activities as told by your health care provider. Ask your health care provider what activities are safe for you. Take zeyr-jaf-lysjpgv and prescription medicines only as told by your health care provider. Do not drive for 24 hours if you were given a sedative during your procedure. Keep all follow-up visits as told by your health care provider. This is important. Contact a health care provider if you have: A sore throat that lasts longer than one day. Trouble swallowing. Get help right away if: You vomit blood or your vomit looks like coffee grounds. You have: ?A fever. ?Bloody, black, or tarry stools. ?A severe sore throat or you cannot swallow. ?Difficulty breathing. ?Severe pain in your chest or abdomen. Summary After the procedure, it is common to have a sore throat, mild stomach discomfort, bloating, and nausea. Do not drive for 24 hours if you were given a sedative during the procedure. Follow instructions from your health care provider about what to eat or drink after your procedure. Return to your normal activities as told by your health care provider. This information is not intended to replace advice given to you by your health care provider. Make sure you discuss any questions you have with your health care provider. Document Released: 03/31/2013 Document Revised: 03/24/2019 Document Reviewed: 03/02/2019 [employer] Patient Education [employer]. Follow Up Care 07/09/2025 12:42:38 With:JAMES GR MD Address: [address] [facility] [address] [place] [address] [phone] When: only if needed [facility] 07-26-2025 Summary of episode note Discharge Instructions Thank you for allowing [facility] to assist you with your healthcare needs. The following is important discharge information regarding your hospital visit. Your Care Team James Gr Your Diagnosis EGD procedure What to do next Scheduled Follow-Up Appointments Appointment Type When With Where Contact Information StatusPC OV 12/10/2025 02:20 PM RICKI BURR APRN - [facility] Confirmed Follow Up Appointments Follow Up with JAMES GR MD When:Only if needed Where:[address] [facility] [address] [place] [address] [phone] The Following Activity and Diet Have Been Ordered for You Discharge Activity - Ordered -- NO activity restrictions, 07/26/25 11:35:00 EDT Discharge Diet - Ordered -- Follow the post-operative/post-procedure diet instructions provided by your physician's office., 07/26/25 11:35:00 EDT The Following Equipment Has Been Ordered for You Discharge Home Equipment Discharge Wound Care - Ordered -- Follow the post-operative/post-procedure wound care instructions provided by your physician's office., 07/26/25 11:35:00 EDT Allergies Nicotine Patch Medications Please ask your primary doctor or pharmacist before taking any other medication not listed, including over the counter drugs, herbal medications, vitamins and or supplements as they may interact with your home medications. What How Much When Why Instructions Last Dose Unchanged albuterol (albuterol MDI (90 mcg/ inh) CFC free inhalation aerosol) 2 puff(s) by inhalation Every 6 hours COPD with exacerbation Duration: 90 Days Unchanged ascorbic acid (Vitamin C 500 mg oral tablet) 1 tab(s) by mouth Once a day Duration: 30 Days Unchanged aspirin (aspirin 81 mg oral delayed release tablet) by mouth Once a day Unchanged atorvastatin (atorvastatin 40 mg oral tablet) 1 tab(s) by mouth Once a day Unchanged buPROPion (BuPROPion (Eqv-Wellbutrin SR) 150 mg/ 12 hours oral tablet, extended release) 1 tab(s) by mouth Two (2) times a day Unchanged busPIRone (busPIRone 10 mg oral tablet) 1 tab(s) by mouth Two (2) times a day Unchanged carvedilol (carvedilol 12.5 mg oral tablet) 1 tab(s) by mouth Two (2) times a day Unchanged celecoxib (CeleBREX 200 mg oral capsule) 1 cap by mouth Once a day Chronic pain of right hip Chronic low back pain with right-sided sciatica Unchanged cetirizine (Zyrtec 10 mg oral tablet) 1 tab(s) by mouth Once a day Seasonal allergies Unchanged cholecalciferol (Vitamin D3) 25 Microgram by mouth Every day not sure of IU Unchanged clopidogrel (Plavix 75 mg oral tablet) 1 tab(s) by mouth Once a day Duration: 90 Days Unchanged cyanocobalamin (Vitamin B12 1000 mcg oral tablet) 1 tab(s) by mouth Once a day Unchanged empagliflozin (Jardiance 10 mg oral tablet) by mouth Once a day (in the morning) Unchanged ferrous sulfate (IRON (ferrous sulfate 325 mg) 65 mg oral tablet) 1 tab(s) by mouth Saturday / Saturday / Saturday Duration: 30 Days OTC Unchanged furosemide (furosemide 20 mg oral tablet) 1 tab(s) by mouth Once a day Unchanged guaiFENesin (Mucus Relief ER 600 mg oral tablet, extended release) 1 tab(s) by mouth Every 12 hours Unchanged montelukast (Singulair 10 mg oral tablet) 1 tab(s) by mouth Once a day Seasonal allergies Cough with congestion of paranasal sinus Unchanged multivitamin with minerals (Multi-Day Plus Minerals) by mouth Once a day Unchanged nitroGLYcerin (Nitrostat 0.4 mg sublingual tablet) 1 tab(s) under the tongue Every 5 minutes as needed for for chest pain Duration: 30 Days Unchanged olodaterol-tiotropium (Stiolto Respimat 60 ACT 2.5 mcg-2.5 mcg/ inh inhalation aerosol) 2 puff(s) by inhalation Every 24 hours Duration: 90 Days Unchanged pantoprazole (pantoprazole 40 mg oral enteric coated tablet) 1 tab(s) by mouth Once a day Duration: 90 Days Unchanged sacubitril-valsartan (sacubitril-valsartan 49 mg-51 mg oral tablet) 1 tab(s) by mouth Two (2) times a day Unchanged sertraline (Zoloft 25 mg oral tablet) 1 tab(s) by mouth Once a day Unchanged sucralfate (Carafate 1 g oral tablet) 1 tab(s) by mouth Four (4) times a day Hiatal hernia with GERD Duration: 30 Days on an empty stomach Unchanged zinc gluconate (zinc (as gluconate) 30 mg oral tablet) 1 tab(s) by mouth Every day Please take this list to your next doctor s visit. Bring all medications you take, including over the counter medications, herbals and other supplements with you to your doctor s visit. Patients and families are reminded to discard old lists and to update any records with all medication providers or retail pharmacies. Education Materials Monitored Anesthesia Care, Care After These instructions provide you with information about caring for yourself after your procedure. Your health care provider may also give you more specific instructions. Your treatment has been planned according to current medical practices, but problems sometimes occur. Call your health care provider if you have any problems or questions after your procedure. What can I expect after the procedure? After your procedure, you may: Feel sleepy for several hours. Feel clumsy and have poor balance for several hours. Feel forgetful about what happened after the procedure. Have poor judgment for several hours. Feel nauseous or vomit. Have a sore throat if you had a breathing tube during the procedure. Follow these instructions at home: For at least 24 hours after the procedure: Have a responsible adult stay with you. It is important to have someone help care for you until you are awake and alert. Rest as needed. Do not: ? Participate in activities in which you could fall or become injured. ? Drive. ? Use heavy machinery. ? Drink alcohol. ? Take sleeping pills or medicines that cause drowsiness. ? Make important decisions or sign legal documents. ? Take care of children on your own. Eating and drinking Follow the diet that is recommended by your health care provider. If you vomit, drink water, juice, or soup when you can drink without vomiting. Make sure you have little or no nausea before eating solid foods. General instructions Take qoeg-ueh-bheoein and prescription medicines only as told by your health care provider. If you have sleep apnea, surgery and certain medicines can increase your risk for breathing problems. Follow instructions from your health care provider about wearing your sleep device: ? Anytime you are sleeping, including during daytime naps. ? While taking prescription pain medicines, sleeping medicines, or medicines that make you drowsy. If you smoke, do not smoke without supervision. Keep all follow-up visits as told by your health care provider. This is important. Contact a health care provider if: You keep feeling nauseous or you keep vomiting. You feel light-headed. You develop a rash. You have a fever. Get help right away if: You have trouble breathing. Summary For several hours after your procedure, you may feel sleepy and have poor judgment. Have a responsible adult stay with you for at least 24 hours or until you are awake and alert. This information is not intended to replace advice given to you by your health care provider. Make sure you discuss any questions you have with your health care provider. Document Released: 01/20/2017 Document Revised: 12/29/2018 Document Reviewed: 01/20/2017 [employer] Patient Education 2020 [employer] Upper Endoscopy, Adult, Care After This sheet gives you information about how to care for yourself after your procedure. Your health care provider may also give you more specific instructions. If you have problems or questions, contact your health care provider. What can I expect after the procedure? After the procedure, it is common to have: A sore throat. Mild stomach pain or discomfort. Bloating. Nausea. Follow these instructions at home: Follow instructions from your health care provider about what to eat or drink after your procedure. Return to your normal activities as told by your health care provider. Ask your health care provider what activities are safe for you. Take diek-buc-conwvcu and prescription medicines only as told by your health care provider. Do not drive for 24 hours if you were given a sedative during your procedure. Keep all follow-up visits as told by your health care provider. This is important. Contact a health care provider if you have: A sore throat that lasts longer than one day. Trouble swallowing. Get help right away if: You vomit blood or your vomit looks like coffee grounds. You have: ? A fever. ? Bloody, black, or tarry stools. ? A severe sore throat or you cannot swallow. ? Difficulty breathing. ? Severe pain in your chest or abdomen. Summary After the procedure, it is common to have a sore throat, mild stomach discomfort, bloating, and nausea. Do not drive for 24 hours if you were given a sedative during the procedure. Follow instructions from your health care provider about what to eat or drink after your procedure. Return to your normal activities as told by your health care provider. This information is not intended to replace advice given to you by your health care provider. Make sure you discuss any questions you have with your health care provider. Document Released: 03/31/2013 Document Revised: 03/24/2019 Document Reviewed: 03/02/2019 [employer] Patient Education 2020 [employer]. Additional Information VACCINATE! IT SAVES LIVES! Members of the community who have not yet received the COVID-19 vaccine and would like to receive it can visit one of [facility] vaccine clinics. There are many vaccine clinic locations within the [facility]. For locations and available times, please visit [email or web address] It is important to note that some COVID mobile vaccine clinics are held outdoors and may be canceled in rainy or stormy conditions. To learn more about pediatric vaccinations (ages 5-11), we invite you to visit the [facility] webpage. [email or web address] -[email or web address] To learn more about the COVID-19 vaccine, we invite you to visit the CDC website for a list of frequently asked questions.https://www.cdc.gov/coronavi ashanti/2019-ncov/vaccines/faq.html [facility] Patient Portal Access Instructions: Stay connected with your healthcare team and access your personal medical information anytime with the [facility] Patient Portal. Please follow the directions below to create your [facility] account: 1.Access the email account you provided upon registration to the hospital/physician office.2.Look for an invitation email from [facility].3.Open the email and access the invitation link: Accept Invitation to [facility].4.Fill in the required bautista to create your account. To access your account, visit [place] [email or web address] or scan the mobiTeris code above. Click the blue button labeled Access Patient Portal and then log in with the username and password that you created in the steps above. You will be able to view your test results, lab results, a summary of your visits, upcoming appointments and more. There is also a convenient messaging option where you can send secure messages to your provider. In addition, you will have the ability to download any documents or summaries to your computer and/or send the information securely to a physician. Remember that your healthcare information is confidential, so carefully consider who you will allow to register on the [employer] Patient Portal for access to your information. You can also access the [employer] Patient Portal on the [facility] [employer] hernan. Simply click on Patient Portal and then log into your account. If you would like to receive a full copy of your medical records, please contact the [facility] Medical Records Department by calling [phone], Saturday through Saturday between 8 a.m. and 4:30 p.m. HOW TO SAFELY DISPOSE OF PRESCRIPTION MEDICATIONS Please use one of the following methods to safely dispose of your unused medications. 1.Use a drug disposal kit: the drug disposal pouch allows you to safely discard your old and unused drugs. Ask your nurse to give you one when you are discharged.2.Visit a local take-back location: Many local pharmacies and police departments have programs that collect old and unwanted prescription drugs. Call your local pharmacy or go to http://bit.ly/8N1Fg6e to find one close to you.3.Make use of household items: Use cat litter or old coffee grounds to dispose medications if other options are not available. Mix your drugs with these household products, seal them in an airtight container and throw it into the garbage. Call [facility]: [phone] to be sure your drugs can be disposed of in this way. Some medicines may require a different approach.4.Never flush your medications down the toilet. IF YOU HAVE BEEN PRESCRIBED AN OPIOID FOR PAIN If you have been prescribed an opioid (such as hydrocodone, oxycodone or morphine), it is critical to understand the possible side effects and risks of opioid pain medications. Even when taken as directed, opioids can have several side effects including: Tolerance, meaning you might need to take more of a medication for the same pain relief. Nausea, vomiting and/or constipation. Sleepiness, dizziness, dry mouth, confusion, depression or itching. Physical dependence, meaning you have withdrawal symptoms when a medication is stopped, can develop within a few days. KNOW YOUR RESPONSIBILITIES It is important to know exactly how much and how often to take the opioid pain medications you are prescribed. Never take opioids in higher amounts or more often than prescribed. Do not combine opioids with alcohol or other drugs that cause drowsiness, such as benzodiazepines, also known as benzos, including diazepam and alprazolam, muscle relaxants or sleep aids. Never sell or share prescription opioids. This is illegal. Store opioids in a secure place and out of reach of others (including children, family, friends and visitors). The last page of this document has been signed and retained as a CHART COPY. Signatures Patient Education Materials Monitored Anesthesia Care, Care After Upper Endoscopy, Adult, Care After Medication Leaflets My discharge plan and instructions have been reviewed and explained to me and I,VISHAL GEORGE understand my current condition and have read and understand these discharge instructions. I have received a written copy of the plan/instructions. If I have questions, I am aware that I should contact my doctor. 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 The scope was passed directly down into the esophagus where the Z-line was 40 cm from the incisors no evidence of Zavala's mucosa. Was easily insufflated there was easy distention of the stomach there were prominent folds along the body of the stomach with rugae noted. Duodenum showed no ulcerations or abnormalities. Retroflexion performed in the stomach revealed no evidence of a hiatal hernia near the cardia. These were taken along the body of the prominent folds in the body of the stomach. This was also taken of the duodenum for pathology. Scope was withdrawn and the patient tolerated the procedure well. noted Post-Procedure Exam EGD with biopsy Findings Prominent folds of the stomach Complications Apparent Total Time Approximately 15 minutes Assessment/Plan Orders: Lactated Ringers Infusion 1,000 mL(LR 1,000 mL), 1000 mL, Intravenous Bedrest, 07/26/25 11:35:00 EDT, Strict, continuous, Constant order, Lying on side until alert or as ordered Bedrest, 07/26/25 11:35:00 EDT, Strict, continuous, Constant order, Lying on side until alert or as ordered Call Parameters, 07/26/25 11:35:00 EDT, Notify for vomiting, severe pain, signs of bleeding, severe abdominal pain, distention or rigidity, Constant order Communication Order (scheduled), 07/26/25 10:42:00 EDT, Once, 07/26/25 10:42:00 EDT, Pathology Tissue Request Communication Order (scheduled), 07/26/25 10:42:00 EDT, Once, 07/26/25 10:42:00 EDT, Urine Test or waiver for women of child bearing age Communication Order (scheduled), 07/26/25 10:42:00 EDT, Once, 07/26/25 10:42:00 EDT, Fasting Blood Sugar priot to procedure of patient is diabetic Diet Order, 07/26/25 11:35:00 EDT, Start Meal: Next meal, Clear Liquid Diet, Post exam or after gag reflex returns if EGD, Constant Order, : Not , : No Discharge, 07/26/25 10:42:00 EDT, Discharged to: Home, when able to ambulate and after being seen by physician Discharge Activity, NO activity restrictions, 07/26/25 11:35:00 EDT Discharge Diet, Follow the post-operative/post-procedure diet instructions provided by your physician's office., 07/26/25 11:35:00 EDT Discharge Wound Care, Follow the post-operative/post-procedure wound care instructions provided by your physician's office., 07/26/25 11:35:00 EDT Pathology Tissue Request, 07/26/25 11:28:00 EDT, Collected, Routine, Nurse Collect, AP Specimen, GASTRIC BODY, SEE H&P, ESOPHAGOGASTRODUODENOSCOPY, ABNORMAL UPPER GASTROINTESTINAL, ABNORMAL UPPER GASTROINTESTINAL, Preferred Lab: Other lab service, [id number] Post Procedure Assessment, 07/26/25 11:35:00 EDT, Stop Date 07/26/25 11:35:00 EDT, Oberve in [facility] Recovery Room until Dionisio Score of 12 or Preprocedure Sign Consent, 07/26/25 10:42:00 EDT, Once, For EGD Vital Signs, 07/26/25 11:35:00 EDT, q15min, 1 hour(s), 07/26/25 12:30:00 EDT Vital Signs, 07/26/25 11:35:00 EDT, q30min, 1 hour(s), 07/26/25 12:30:00 EDT Vital Signs PRN, 07/26/25 11:35:00 EDT, PRN order Follow Up/Recommendation Follow-up the biopsies Digitally Signed by JAMES GR MD on 07/26/2025 11:38 AM [facility] 07-26-2025 Anesthesiology Consult note Patient: VISHAL GEORGE Age: 65 years Sex: Female : 1960 Associated Diagnoses: None Author: MIGUEL HANNA 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 Mental status: alert & oriented x 4. Respiratory function: lungs are clear to auscultation. Respiratory support: none. CV function: Normal rate. Cardiovascular support: none. Pain. Nausea status: see nursing documentation of medications. Postoperative hydration status: within normal limits. Digitally Signed by MIGUEL HANNA on 07/26/2025 11:33 AM [facility] 07-26-2025 Anesthesiology Consult note Patient: VISHAL GEORGE Age: 65 years Sex: Female : 1960 Associated Diagnoses: None Author: MIGUEL HANNA Preoperative Information Time of last food or liquid consumption: 07/25/2025 22:00:00 Anesthesia history Patient's history: negative. Family's history: negative. Review of Systems Ear/Nose/Mouth/Throat: Negative except as documented in history of present illness. Respiratory: Negative except as documented in history of present illness. Cardiovascular: Negative except as documented in history of present illness. Gastrointestinal: Negative except as documented in history of present illness. Genitourinary: Negative except as documented in history of present illness. Endocrine: Negative except as documented in history of present illness. Musculoskeletal: Negative except as documented in history of present illness. Integumentary: Negative except as documented in history of present illness. Neurologic: Negative except as documented in history of present illness. Health Status Allergies: Allergic Reactions (Selected) Severity Not Documented Nicotine Patch- No reactions were documented., Allergies (1) ActiveSeverityReaction Nicotine PatchNone Documented Current medications: (Selected) Inpatient Medications Ordered LR 1,000 mL: 50 mL/hr, Intravenous Prescriptions Prescribed BuPROPion (Eqv-Wellbutrin SR) 150 mg/12 hours oral tablet, extended release: 150 mg, 1 tab(s), Oral, BID, 180 tab(s), 1 Refill(s) Carafate 1 g oral tablet: 1 gram(s), 1 tab(s), Oral, QID, for 30 day(s), on an empty stomach, 120 tab(s), 1 Refill(s) CeleBREX 200 mg oral capsule: 200 mg, 1 cap(s), Oral, qDay, 90 cap(s), 1 Refill(s) IRON (ferrous sulfate 325 mg) 65 mg oral tablet: 325 mg, 1 tab(s), Oral, Mon/Wed/Fri, for 30 day(s), OTC, 13 tab(s), 5 Refill(s) Mucus Relief ER 600 mg oral tablet, extended release: 600 mg, 1 tab(s), Oral, q12h, 60 tab(s), 0 Refill(s) Nitrostat 0.4 mg sublingual tablet: 0.4 mg, 1 tab(s), Sublingual, q5min, for 30 day(s), PRN: for chest pain, 100 tab(s), 3 Refill(s) Plavix 75 mg oral tablet: 75 mg, 1 tab(s), Oral, qDay, for 90 day(s), 90 tab(s), 1 Refill(s) Singulair 10 mg oral tablet: 10 mg, 1 tab(s), Oral, qDay, 90 tab(s), 1 Refill(s) Stiolto Respimat 60 ACT 2.5 mcg-2.5 mcg/inh inhalation aerosol: 2 puff(s), Inhalation, q24h, for 90 day(s), 3 EA, 1 Refill(s) Vitamin C 500 mg oral tablet: 500 mg, 1 tab(s), Oral, qDay, for 30 day(s), 30 tab(s), 0 Refill(s) Zoloft 25 mg oral tablet: 25 mg, 1 tab(s), Oral, qDay, 100 tab(s), 0 Refill(s) Zyrtec 10 mg oral tablet: 10 mg, 1 tab(s), Oral, qDay, 90 tab(s), 1 Refill(s) albuterol MDI (90 mcg/inh) CFC free inhalation aerosol: 2 puff(s), Inhalation, q6h, for 90 day(s), 18 gram(s), 1 Refill(s) busPIRone 10 mg oral tablet: 10 mg, 1 tab(s), Oral, BID, 180 tab(s), 1 Refill(s) pantoprazole 40 mg oral enteric coated tablet: 40 mg, 1 tab(s), Oral, qDay, for 90 day(s), 90 tab(s), 1 Refill(s) Documented Medications Documented Jardiance 10 mg oral tablet: mg, tab(s), Oral, qAM, 0 Refill(s) Multi-Day Plus Minerals: Oral, qDay, 0 Refill(s) Vitamin B12 1000 mcg oral tablet: 1,000 mcg, 1 tab(s), Oral, qDay, 30 tab(s), 0 Refill(s) Vitamin D3: 25 mcg, 1 tab(s), Oral, Daily, not sure of IU, 0 Refill(s) aspirin 81 mg oral delayed release tablet: mg, tab(s), Oral, qDay, 0 Refill(s) atorvastatin 40 mg oral tablet: 40 mg, 1 tab(s), Oral, qDay, 90 tab(s), 0 Refill(s) carvedilol 12.5 mg oral tablet: 12.5 mg, 1 tab(s), Oral, BID, 180 tab(s), 0 Refill(s) furosemide 20 mg oral tablet: 20 mg, 1 tab(s), Oral, qDay, 30 tab(s), 0 Refill(s) sacubitril-valsartan 49 mg-51 mg oral tablet: 1 tab(s), Oral, BID, 60 tab(s), 0 Refill(s) zinc (as gluconate) 30 mg oral tablet: 30 mg, 1 tab(s), Oral, Daily, 0 Refill(s), Medications (1) Active Scheduled: (0) Continuous: (1) Lactated Ringers 1,000 mL 1,000 mL, Intravenous, 50 mL/hr PRN: (0) Problem list: Medical Abdominal bruit / SNOMED CT 681943075 / Confirmed COPD exacerbation / SNOMED CT 0732378907 / Confirmed Anemia of unknown etiology / SNOMED CT 278212801 / Confirmed Cardiac defibrillator in place / SNOMED CT 3514858103 / Confirmed Chronic low back pain with right-sided sciatica / SNOMED CT 483343753 / Confirmed COPD (chronic obstructive pulmonary disease) / SNOMED CT 89378045 / Confirmed CAD (coronary artery disease) / SNOMED CT 72189930 / Confirmed DDD (degenerative disc disease), lumbar / SNOMED CT 49146170 / Confirmed Cardiac LV ejection fraction 10-20% / SNOMED CT 8560345763 / Confirmed Depression / SNOMED CT 85421874 / Confirmed Diastolic heart failure / SNOMED CT 3741720666 / Confirmed Hiatal hernia with GERD / SNOMED CT 1097949752 / Confirmed Chronic pain of right hip / SNOMED CT 84622915 / Confirmed Hyperlipidemia LDL goal <100 / SNOMED CT 22197478 / Confirmed IFG (impaired fasting glucose) / SNOMED CT 7948644049 / Confirmed Increased BMI (body mass index) / SNOMED CT 93360075 / Confirmed Chronic pain of left knee / SNOMED CT 55448024 / Confirmed Left ventricular hypertrophy by electrocardiogram / SNOMED CT 9988593542 / Confirmed Well adult exam / SNOMED CT 697353895 / Confirmed Screening for lung cancer / SNOMED CT 889656894 / Confirmed Seasonal allergies / SNOMED CT 8776917934 / Confirmed AV block, 2nd degree / SNOMED CT 481779213 / Confirmed Vitamin D deficiency / SNOMED CT 25099386 / Confirmed Resolved: Acute bronchitis, bacterial / SNOMED CT 758501402 Resolved: Epigastric abdominal pain / SNOMED CT 494636999 Canceled: Acute bronchitis / SNOMED CT 52366454 Canceled: COPD with exacerbation / SNOMED CT 5567729187 Canceled: Acute sinus infection / SNOMED CT 33342706 Canceled: Chronic low back pain with bilateral sciatica / SNOMED CT 244567248 Canceled: Cough with congestion of paranasal sinus / SNOMED CT 353235224 Canceled: Epigastric pain / SNOMED CT 460783692 Canceled: Diaphoresis / SNOMED CT 929337409 Canceled: Tarry stools / SNOMED CT 864355503 Canceled: Heart / SNOMED CT 211412996 Canceled: Heart murmur / SNOMED CT 195488619 Canceled: Nausea & vomiting / SNOMED CT [id number] Canceled: Nausea & vomiting / SNOMED CT 98402353 Canceled: Pre-op exam / SNOMED CT 860612701 Canceled: Viral gastroenteritis / SNOMED CT 099170682 Canceled: Wheezing / SNOMED CT 63047677, Active Problems (27) Abdominal bruit Anemia of unknown etiology AV block, 2nd degree CAD (coronary artery disease) Cardiac defibrillator in place Cardiac LV ejection fraction 10-20% Chronic low back pain with right-sided sciatica Chronic pain of left knee Chronic pain of right hip COPD (chronic obstructive pulmonary disease) COPD exacerbation DDD (degenerative disc disease), lumbar Depression Diastolic heart failure Hiatal hernia with GERD HTN (hypertension) Hyperlipidemia LDL goal <100 IFG (impaired fasting glucose) Increased BMI (body mass index) Left ventricular hypertrophy by electrocardiogram PVC (premature ventricular contraction) Screening for lung cancer Seasonal allergies Tobacco use Tobacco use Vitamin D deficiency Well adult exam Histories Past Medical History: Active COPD (chronic obstructive pulmonary disease) (98749557) COPD exacerbation (1578881967) Resolved Acute bronchitis, bacterial (767317717): Resolved. Epigastric abdominal pain (408475019): Resolved. Family History: Breast cancer Mother Hypertension Father Heart disease Mother Procedure history: Heart (637401868). Comments: 04/02/2015 13:04 EDT - KARIN DECKER KEESHA stent Cholecystectomy (35344573). Cardiac catheterization (28335963). MRI guided biopsy of right breast (8747415299). Placement of stent in cardiac conduit (7138221754). Social History: Social & Psychosocial Habits Alcohol 07/26/2025 Use: Past Type: Beer Frequency: 1-2 times per week Comment: for 20 years - 07/03/2019 10:58 - Genny Montejo RN Substance Abuse 07/26/2025 Use: Current Type: Marijuana Frequency: 1-2 times per week Comment: Medical marijuana - 12/19/2022 11:14 - ShanonMónica LPN Tobacco 07/26/2025 Tobacco Use: 5-9 cigarettes (between 1 Home/Environment 07/26/2025 Primary Welder First Class: Self Nutrition/Health 07/26/2025 Caffeine intake amount: 1 cup a day occasional tea Physical Examination Vital Signs 07/26/2025 10:52 EDT Temperature Oral 36.9 DegC Peripheral Pulse Rate 78 bpm Respiratory Rate 16 br/min Systolic Blood Pressure Non-Invasive 141 mmHg HI Diastolic Blood Pressure Non-Invasive 63 mmHg Reason For Taking VItal Signs Procedure pre-care Vital Signs (last 24 hrs) Last Charted Temp Oral36.9 DegC (JUL 26 10:52) SBPH 141 mmHg (JUL 26 10:52) DBP63 mmHg (JUL 26 10:52) BMI30.23 (JUL 26 10:43) Measurements from flowsheet : Measurements 07/26/2025 10:43 EDT Height 157.5 cm Admission Weight 75 kg Weight Method Stated [place] Body Weight 50.12 kg BSA Admission 1.76 Body Mass Index 30.23 kg/m2 Pain assessment: Pain Assessment 07/26/2025 10:52 EDT Primary Pain Intensity 0 Pain Scale Type 0-10 Pain scale . General: Alert and oriented. Airway: Normal neck range of motion. Mallampati classification: II (soft palate, fauces, uvula visible). Head: Normocephalic. Dentition Evaluation: Intact, Own teeth. Neck: Full range of motion. Respiratory: Lungs are clear to auscultation. Cardiovascular: Normal rate. Heart Sounds: Normal. Gastrointestinal: Soft. Musculoskeletal Normal range of motion. Integumentary: Intact, Warm, Dry. Neurologic: Alert, Oriented. Review / Management Results review: No qualifying data available , Lab results 07/26/2025 11:20 EDT SN - Proc - Anesthesia Type MAC SN - Proc - EBL 0 mL SN - Proc - Actual Procedure ESOPHAGOGASTRODUODENSCOPY 07/26/2025 11:19 EDT SN - PP - Body Position Lateral Right Side-up Standard Intra-op 07/26/2025 11:19 EDT SN - GCD - Post-operative Diagnosis ABNORMAL UPPER GASTROINTESTINAL SN - GCD - Case Level OPD Level 3 07/26/2025 11:19 EDT SN - CAt - Case Attendee SN - CAt - Case Attendee SN - CAt - Case Attendee SN - CAt - Case Attendee SN - CAt - Case Attendee SN - CAt - Case Attendee SN - CAt - Case Attendee SN - CAt - Case Attendee SN - CAt - Role Performed Primary Surgeon SN - CAt - Role Performed DIESEL POWERPLANT SUPERVISOR SN - CAt - Role Performed Corporate Legal Intern 1 SN - CAt - Role Performed Bicycle Mechanic 07/26/2025 11:18 EDT History and Physical Update History and Physical Update Note 07/26/2025 11:10 EDT Individuals Taught Patient Learning Readiness Willing to learn Barriers to Learning None evident Teaching Method Explanation Preferred Spoken Language Lithuanian Preferred Written Language Lithuanian Pre Procedure/Surgery Education Appropriate expectations, Date/Time of procedure/surgery, Hospital gown requirement worn to OR, Meds to take or hold, NPO, Responsible bung driver for discharge Procedure/Surgical Teaching Evaluation Verbalizes/Nonverbally indicates understanding 07/26/2025 11:05 EDT Lactated Ringers Injection Begin Bag 1,000 mL mL 07/26/2025 11:04 EDT Hand Right 07/26/2025 22 gauge Peripheral IV Activity: Insert new site Peripheral IV Dressing Condition: Clean, Dry, Intact Peripheral IV Dressing Activity: Transparent dressing Peripheral IV Line Status/Patency: Flushes easily, Continuous infusion Peripheral IV Line Care: Secured with tape Peripheral IV Site Condition: No complications Peripheral IV Number of Attempts: 1 07/26/2025 10:55 EDT Urinary Elimination Voiding, no difficulties IV Present Present Allergies Yes Anesthesia Extension Set Applied Yes Clinical Trial Educator On Yes Consent Form Signed Yes Patient Dressed In Hospital gown Pre-op Preparation Dentures, upper removed History & Physical On Chart Yes Belongings At Bedside Dentures, upper, Pants, Purse, Shirt, Shoes Positioning Repositions self Activity Status ADL Awake Standard Safety ID band on, Allergy Band on, Call device within reach, Bed in low position, Wheels locked, Upper/Half-Length side-rails up, Phone within reach, personal items within reach Allergy Band on and Verified Yes Patient ID Band on and Verified Yes Site Verified by Patient/Family Yes Last Fluid Intake 07/25/2025 18:00 Last Food Intake 07/26/2025 18:00 Last Void 07/26/2025 10:57 07/26/2025 10:52 EDT Temperature Oral 36.9 DegC Peripheral Pulse Rate 78 bpm Respiratory Rate 16 br/min Systolic Blood Pressure Non-Invasive 141 mmHg HI Diastolic Blood Pressure Non-Invasive 63 mmHg Reason For Taking VItal Signs Procedure pre-care Primary Pain Intensity 0 Pain Scale Type 0-10 Pain scale Nail Bed Color Rugby Capillary Refill < 2 seconds Heart Rhythm Regular Respirations Unlabored Respiratory Pattern Regular Oxygen Therapy Room air Oxygen Saturation 97 % Abdomen Description Symmetric, Soft Abdomen Palpation Non-Tender, Soft Passing Flatus Yes Bowel Movement Last Date 07/26/2025 Skin Description Normal for ethnicity Skin Temperature Warm Skin Integrity Intact Level of Consciousness Alert Strength All Extremities Strong Affect/Behavior Appropriate, Calm, Cooperative Orientation Oriented x 4 Eating Difficulties None 07/26/2025 10:43 EDT Designated Person #1 We May Share AUNDREA Vernon [phone] Designated Person #1 Relationship Significant other Height 157.5 cm Admission Weight 75 kg Weight Method Stated [place] Body Weight 50.12 kg BSA Admission 1.76 Body Mass Index 30.23 kg/m2 Status Not Sensory Deficits None Infectious Disease Symptoms Patient states no symptoms Infectious Disease Recent Exposure No Alcohol and Drug Use No Employee of Institutional Living No Health Care Employee No History of Exposure to TB No History of Positive Chest X-Ray for TB No History of Positive TB Skin Test No Homeless No Known Immunosuppression No Recent Immigrant No Resident of Institutional Living No Bloody Sputum No Fatigue No Fever No Loss of Appetite No Night Sweats No Persistent Cough > 3 Weeks No Weight Loss No Barriers to Learning None evident Teaching Method Explanation, Printed materials Preferred Spoken Language Lithuanian Preferred Written Language Lithuanian Patient's Current Physicians Patient's Current Physicians Discharge To, Anticipated Home independently Prev Test Positive/Diagnosis w/COVID-19 No Current Quarantine/Isolated any Illness No Any Contact with Sick Animals/Birds No Traveled Anywhere in Last 30 Days No No Personal Devices, Patient Valuables Dentures, upper, Glasses Admission Note-Nursing Procedure/Therapy Intake . Assessment and Plan [place] [employer] Anesthesiologists (ASA) physical status classification: Class III. Anesthetic Preoperative Plan Premedication: intravenous. Anesthetic technique: MAC. Induction: intravenously. Maintenance airway: Mask. Risks discussed: nausea, vomiting, headache, sore throat, dental injury, hypotension, allergic reaction, serious complications. Informed consent: signed by patient. Digitally Signed by MIGUEL HANNA on 07/26/2025 11:21 AM [facility] 07-26-2025 History and physical note Date of Service 07/26/2025 History and Physical Update I have examined the patient; reviewed the History and Physical and there are no changes to the History and Physical unless noted below. Digitally Signed by JAMES GR MD on 07/26/2025 11:19 AM [facility] 05-13-2025 Note Exam Date Time Procedure Performing Provider Status 05/13/25 10:21 AM XR Upper GI IAN COTTON MD; Auth (Verified) [id number] ORIGINAL EXAMINATION: DOUBLE CONTRAST UPPER GI SERIES [...] 05/13/2025 11:48:01 AM Ordering Provider: RICKI GRIFFIN [facility]03-26-2025 Evaluation note* Diagnosis Onset Date Resolution Status Admit Date Essential hypertension acute [facility] 2024 3:40pm Hyperlipidemia acute December 3:40pm Ischemic cardiomyopathy acute [facility] 2024 3:40pm Nonsustained ventricular tachycardia acute January 06, 2025 3:40pm Stented coronary artery February 25, 2023 chronic January 06, 2025 3:40pm [facility] Work Phone: [phone]) 809-834903-10-2025 Telephone encounter Note* Telephone Encounter - Dinah Singh RN - 12/21/2024 2:30 PM EDT Patient called in requested 11/19/24 bone density result. Advised PersonSpot message was sent by provider, but she does not use her mychart. Read her DM's message to her. All questions answered. Dinah Singh RN [facility]03-10-2025 Miscellaneous Notes* Telephone Encounter - Dinah Singh RN - 12/21/2024 2:30 PM EDT Patient called in requested 11/19/24 bone density result. Advised mychart message was sent by provider, but she does not use her mychart. Read her DM's message to her. All questions answered. Dinah Singh RN documented in this encounterWright-Patterson Medical Center02-06-2025 History of Present illness Narrative* Cristhian Muse RT(Meenu) - 11/19/2024 3:25 PM EST Radiology Service [...] PATIENT PRESENTS WITH AN IMPLANTABLE OR ATTACHED EDUCATION PROGRAM MANAGER: No RADIOLOGY DEPARTMENT: Bone Density PERIPHERAL IV DATA: Not applicable SIGNED BY: RT Mario(Meenu) November 19, 2024 3:27 PM documented in this encounterWright-Patterson Medical Center02-06-2025 NoteHNO ID: [id number] Author: CRISTHIAN MUSE RT(R) Service: ? Author Type: Technologist Type: [...] PATIENT PRESENTS WITH AN IMPLANTABLE OR ATTACHED EDUCATION PROGRAM MANAGER: No RADIOLOGY DEPARTMENT: Bone Density PERIPHERAL IV DATA: Not applicable SIGNED BY: RT Mario(R) November 19, 2024 3:27 [facility]12-09-2024 Instructions* Patient Instructions* Aracelis Mccormick MD - [...] your usual activities immediately. documented in this encounterWright-Patterson Medical Center12-09-2024 NoteHNO ID: [id number] Author: ARACELIS MCCORMICK MD Service: ? Author Type: Physician Type: Progress Notes Filed: 09/21/2024 15:54 Note Text: Extension Service Supervisor offered: Patient declinesLedy Trevino is a 64 [...] L2 SAB1 IAB0 Ectopic0 Multiple0 Live Births0 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 As applicable, any other physician, advance practice provider, medical student, or other health professional student that will be observing or involved in the sensitive examination for educational or training purposes was discussed with the Patient or Authorized Civil Laboratory Technician. The Patient or Authorized Civil Laboratory Technician has agreed to proceed with the sensitive [...] external genitalia normal, normal Bartholin's glands, urethra, [place]'s glands, no vulvar lesions, no cervical lesions, [...] reviewed. Colon cancer screening: (more content not included)...[facility] 09-21-2024 History of Present illness Narrative* Aracelis Mccormick MD - 09/21/2024 3:22 PM EST Extension Service Supervisor offered: Patient declinesLedy Trevino is a 64 [...] L2 SAB1 IAB0 Ectopic0 Multiple0 Live Births0 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 As applicable, any other physician, advance practice provider, medical student, or other health professional student that will be observing or involved in the sensitive examination for educational or training purposes was discussed with the Patient or Authorized Civil Laboratory Technician. The Patient or Authorized Civil Laboratory Technician has agreed to proceed with the sensitive [...] external genitalia normal, normal Bartholin's glands, urethra, [place]'s glands, no vulvar lesions, no cervical lesions, [...] needed Aracelis Yoder MD documented in this encounterWright-Patterson [facility] Center12-04-2024 History of Present illness Narrative* [...] PATIENT PRESENTS WITH AN IMPLANTABLE OR ATTACHED EDUCATION PROGRAM MANAGER: No RADIOLOGY DEPARTMENT: Mammography PERIPHERAL IV DATA: Not applicable SIGNED BY: Cesar Vargas September 16, 2024 8:07 AM documented in this encounterWright-Patterson Medical Center12-04-2024 NoteHNO ID: [id number] Author: TONY HART Mammo Tech Service: ? Author Type: Geospatial Imagery Intelligence Analyst Type: Progress Notes Filed: 09/16/2024 08:07 Note [...] PATIENT PRESENTS WITH AN IMPLANTABLE OR ATTACHED EDUCATION PROGRAM MANAGER: No RADIOLOGY DEPARTMENT: Mammography PERIPHERAL IV DATA: Not applicable SIGNED BY: Cesar Vargas September 16, 2024 8:07 [facility]03-15-2024 NoteHNO ID: [id number] Author: SHAY TERESA APRN.CNP Service: ? Author Type: Nurse Practitioner Type: Progress Notes Filed: 12/27/2023 12:33 Note Text: Heart and Vascular [facility] OUTPATIENT VISIT DATE December [...] of ventricular tachycardia. She was transferred to [facility] for possible ICD placement. Electrophysiology was consulted. [...] use inhaler daily. She follows with a parts washer in [place]. Does not weigh every day. Monitors her sodium intake. Does not monitor fluids as well. Weights have been stable at 162-164 lbs. States she had an echocardiogram in September in [place] and reports an ejection fraction of 45%. She was told by her parts washer if it was less than 35% she [...] with HF Clinic and with cardiology in [place]. She is to call the office next [...] once GDMT is optimized -repeat echo in [place] shows 45% from September 2023 Per the [...] BP monitoring 5. 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 - ICD9: 414.01, [...] DX W/COLLJ SPEC WHEN (more content not included)...[facility] [id number] History of Present illness Narrative* Shay Teresa APRN.INSIDE TECHNICAL SALES REPRESENTATIVE - 12/27/2023 12:00 PM EDT Images from the original note were not included. [facility] OUTPATIENT VISIT DATE December 26, 2023 OUTPATIENT VISIT TYPE ESTABLISHED PRIMARY CARE PHYSICIAN: Ricki Griffin, COLLECTION SYSTEMS WORKER, INSIDE TECHNICAL SALES REPRESENTATIVE CHIEF COMPLAINT: Patient presents with: Breathing Problem [...] of ventricular tachycardia. She was transferred to [facility] for possible ICD placement. Electrophysiology was consulted. [...] use inhaler daily. She follows with a parts washer in [place]. Does not weigh every day. Monitors her sodium intake. Does not monitor fluids as well. Weights have been stable at 162-164 lbs. States she had an echocardiogram in September in [place] and reports an ejection fraction of 45%. She was told by her parts washer if it was less than 35% she [...] with HF Clinic and with cardiology in [place]. She is to call the office next [...] once GDMT is optimized -repeat echo in [place] shows 45% from September 2023 Per the [...] BP monitoring 5. 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- ICD9: 414.01, ICD10: [...] Discussed red flags and when to call MD/UTILITIES SERVICE INVEST[facility]. Medications reconciled at end of visit: yes I spent 30 minutes in this visit, with more than 50% of the time devoted to patient counseling. SIGNATURE: Shay Teresa APRN.CNP PATIENT NAME: Vishal George DATE: December 27, 2023 TIME: 1200 documented in this encounterWright-Patterson [facility] Center03-15-2024 Instructions* Patient Instructions* Shay Teresa [...] or concern, you can call me at [phone]. documented in this encounterWright-Pat[facility] Center09-29-2023 NoteHNO ID: [id number] Author: Shya Teresa APRN.MELODY Service: ? Author Type: Nurse Practitioner Type: Progress Notes Filed: 07/12/2023 12:38 PM Note Text: Heart and Vascular [facility] OUTPATIENT VISIT DATE July [...] of ventricular tachycardia. She was transferred to [facility] for possible ICD placement. Electrophysiology was consulted. Recommended life vest and repeat echo in 3 months. Cardiology also started patient on carvedilol, jardiance and aldactone along with entresto. Today, the patient reports feeling very well. She follows with a parts washer in [place]. Every once in awhile she feels a [...] once GDMT is optimized -repeat echo in [place] shows 15% Per the patient- no outside records present during visit 3. Hyperlipidemia, unspecified hyperlipidemia type - ICD9: 272.4, ICD10: E78.5 -continue statin therapy 4. Primary hypertension - ICD9: 401.9, ICD10: I10 -BP suboptimal during visit 139/76 mmHg -encourage DASH/low sodium diet -encourage exercise with rest breaks as needed -goal BP <130/80 mmHg -continue home BP monitoring 5. 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 - ICD9: 414.01, [...] SURGERY, COMPLEX 09/29/2012 L (more content not included)...[facility] [id number] Instructions* Patient Instructions* Shay Teresa APRN.INSIDE TECHNICAL SALES REPRESENTATIVE - 07/12/2023 12:27 PM EDT Continue current [...] or concern, you can call me at [phone]. documented in this encounterWright-Patterson Medical Center09-29-2023 History of Present illness Narrative* Shay Teresa APRN.CNP - 07/12/2023 12:00 PM EDT Images from the original note were not included. Heart [facility] OUTPATIENT VISIT DATE July [...] of ventricular tachycardia. She was transferred to [facility] for possible ICD placement. Electrophysiology was consulted. Recommended life vest and repeat echo in 3 months. Cardiology also started patient on carvedilol, jardiance and aldactone along with entresto. Today, the patient reports feeling very well. She follows with a parts washer in [place]. Every once in awhile she feels a [...] once GDMT is optimized -repeat echo in [place] shows 15% Per the patient- no outside records present during visit 3. Hyperlipidemia, unspecified hyperlipidemia type - ICD9: 272.4, ICD10: E78.5 -continue statin therapy 4. Primary hypertension - ICD9: 401.9, ICD10: I10 -BP suboptimal during visit 139/76 mmHg -encourage DASH/low sodium diet -encourage exercise with rest breaks as needed -goal BP <130/80 mmHg -continue home BP monitoring 5. 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- ICD9: 414.01, ICD10: [...] is abnormally high No echo performed at [facility]. Patient states echo was done in [place] in May. I have personally reviewed the Laboratory Testing and Echocardiogram. COUNSELING: We discussed the following non-pharmacological measures during this visit: Smoking and alcohol abstinence/cessation, if applicable Dietary and medication compliance Monitoring daily weights and blood pressures Exercise regimen When to call our office Heart Failure Education Booklet: Previously given. Discussed red flags and when to call MD/UTILITIES SERVICE INVESTIG[facility] Medications reconciled at end of visit: yes I spent 30 minutes in this visit, with more than 50% of the time devoted to patient counseling. SIGNATURE: Shay Teresa APRN.CNP PATIENT NAME: Vishal George DATE: July 12, 2023 TIME: 1201 documented in this encounterWright-Patterson [facility] Center08-25-2023 NoteHNO ID: [id number] Author: Shay Teresa APRN.CNP Service: ? Author Type: Nurse Practitioner Type: Progress Notes Filed: 06/07/2023 12:42 PM Note Text: Heart and Vascular [facility] OUTPATIENT VISIT DATE June [...] dilated cardiomyopathy, chronic obstructive pulmonary disease, s/p [facility] with stent placement on 02/25 revealing [...] of ventricular tachycardia. She was transferred to [facility] for possible ICD placement. Electrophysiology was consulted. [...] able. 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 Hyperlipidemia, unspecified hyperlipidemia type - ICD9: 272.4, ICD10: E78.5 -continue statin therapy 4. Primary hypertension - ICD9: 401.9, ICD10: I10 -BP suboptimal during visit mmHg -encourage DASH/low sodium diet -encourage exercise with rest breaks as needed -goal BP <130/80 mmHg -continue home BP monitoring 5. 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 - ICD9: 414.01, [...] Procedure Laterality Date CATARACT (more content not included)...[facility] [id number] Miscellaneous Notes* Telephone Encounter - Melissa Koroma [...] declined. Melissa Koroma APRN.CNP documented in this encounterWright-Patterson [facility] Center05-25-2023 NoteHNO ID: [id number] Author: Shay Teresa APRN.CNP Service: ? Author Type: Nurse Practitioner Type: Progress Notes Filed: 03/07/2023 11:18 AM Note Text: Heart and Vascular [facility] OUTPATIENT VISIT DATE March 07, 2023 OUTPATIENT VISIT TYPE NEW PRIMARY CARE PHYSICIAN: Ricki Griffin, COLLECTION SYSTEMS WORKER, INSIDE TECHNICAL SALES REPRESENTATIVE REFERRING PHYSICIAN: No referring provider defined for [...] of ventricular tachycardia. She was transferred to [facility] for possible ICD placement. Electrophysiology was consulted. [...] BP monitoring 5. 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 - ICD9: 414.01, ICD10: I25.10 -stable -s/p [facility] on 02/25 -on aspirin and BB Follow up appointment with Cardiology in Dr. Moe [place] to be scheduled. PAST MEDICAL HISTORY Diagnosis Date Cataract of left eye COPD (chronic obstructive pulmonary disease) (HCC) Dilated cardiomyopa (more content not included)...[facility] [id number] Note HNO ID: [id number] Author: Carlo Gallardo Service: ? Author Type: ? Type: Plan of Care Filed: 03/01/2023 4:14 PM Note Text: PHARMACY BEDSIDE DELIVERY SERVICE Patient Name: Vishal George The marked outpatient medications were Filled at: [place] and delivered to the patient's bedside to [...] tablet Carlo Gallardo PAGER: Carlo Gallardo ([facility]) [phone] March 01, 2023 4:12 [facility]05-19-2023 NoteHNO ID: [id number] Author: Oly Guzmán DO Service: Hospital Medicine [...] assessment, plan, and treatment Other, please specify [facility] 02-28-2023 NoteHNO ID: [id number] Author: Oly Guzmán DO Service: Hospital Medicine Author Type: Physician Type: Progress Notes Filed: 02/28/2023 4:41 PM Note Text: DEPARTMENT OF HOSPITAL MEDICINE PROGRESS NOTE SERVICE DATE: 02/28/2023 SERVICE TIME: 4:29 PM Hospital Medicine/Primary Attending: Oly Guzmán, DO NIGHT AND WEEKEND COVERAGE: GUAYNABO COVERAGE: After 7pm, please call cross cover pager #[phone] Subjective She denies current chest pain, lightheadedness, syncope, shortness of breath, nausea or vomiting INTERVAL HPI: This is a 62-year-old female with known congestive heart failure systolic and diastolic, CAD status post stent who presented to [facility] a few days ago for severe [...] was a planned to be discharged from [place], but then she had a 34 run of V. tach/wide-complex tachycardia so decision was to transfer her to [facility] for ICD evaluation as that was being [...] telemetry Active Problems: Coronary artery disease involving angoon coronary artery POA: Yes Assessment AND Plan: [...] -- 02/26/23 1645 activity - mobilize patient (me,id) VTE Prophylaxis:On hold pending need for EP procedure Disposition: To be determined Plan of care discussed with: Provider, RN, Patient SIGNATURE: Oly Guzmán DO PATIENT NAME: Vishal George DATE: February 28, 2023 TIME: 4:29 PM etx [id number] [facility]05-17-2023 NoteHNO ID: [id number] Author: Oly Guzmán DO Service: Hospital Medicine Author Type: Physician Type: Progress Notes Filed: 02/27/2023 2:21 PM Note Text: DEPARTMENT OF HOSPITAL MEDICINE PROGRESS NOTE SERVICE DATE: 02/27/2023 SERVICE TIME: 2:09 PM Hospital Medicine/Primary Attending: Oly Guzmán DO NIGHT AND WEEKEND COVERAGE: GUAYNABO COVERAGE: After 7pm, please call cross cover pager #[phone] Subjective She denies current chest pain, lightheadedness, syncope, shortness of breath, nausea or vomiting INTERVAL HPI: This is a 62-year-old female with known congestive heart failure systolic and diastolic, CAD status post stent who presented to [facility] a few days ago for severe [...] with a plan to transition her to [facility]. The patient was a planned to be discharged from [place], but then she had a 34 run of V. tach/wide-complex tachycardia so decision was to transfer her to [facility] for ICD evaluation as that was being [...] telemetry Active Problems: Coronary artery disease involving angoon coronary artery POA: Yes Assessment AND Plan: [...] -- 02/26/23 1645 activity - mobilize patient (me,id) VTE Prophylaxis:On hold pending need for EP procedure Disposition: To be determined Plan of care discussed with: Provider, RN, Patient SIGNATURE: Oly Guzmán DO PATIENT NAME: Vishal George DATE: February 27, 2023 TIME: 2:09 PM etx [id number] [facility]12-09-2022 HCoV 229E RNA FERCHO+non-probe Ql (Nph)Not Detected *NA* (09/21/22 5:46 PM)AH Auto Viro/Sero [id number] History of Present illness Narrative* Jackie Schneider [...] - ENDOSCOPY NAME: Vishal George CLINIC NO.: [id number] DATE OF SERVICE: 09/07/2022 : 1960 REFERRING PHYSICIAN: Ricki Griffin, COLLECTION SYSTEMS WORKER, INSIDE TECHNICAL SALES REPRESENTATIVE Vishal is a patient I am following [...] which included preparing to see the patient, [id number] patient care, completing clinical documentation, obtaining and/or reviewing separately obtained history, counseling and educating the patient/family/caregiver, ordering medications, namrata ts, or procedures, independently interpreting results (not separately reported), and communicating results to the patient/family/caregiver. Jackie Schneider PA-C documented in this encounterWright-Pat[facility]11-02-2022 Miscellaneous Notes* Letter - Mammography Coordinator - 08/15/2022 11:32 AM EDT August 15, 2022 PID: [id number] Vishal George [address] [place] [address] Dear Ariel, We are pleased to inform you that [...] report will be kept on file at [facility] as part of your permanent medical record and are available for your continuing care. Thank you for allowing us to help in meeting your health care needs. Sincerely, Dr. Kate Interpreting Radiologist [facility] (Normal over 40) documented in this encounterWright-Patterson Medical Center11-01-2022 History of Present illness Narrative* Aracelis Lozoya MD - 08/14/2022 8:42 AM EDT Vishal is a 62 year old who presents for an annual gynecologic exam without complaints. Working at [employer]. 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 Aracelis Yoder MD Extension Service Supervisor offered: Patient declines. documented in this encounterWright-Patterson Medical Center10-27-2022 Nurse Note* Leslie Hendrix RN - 08/09/2022 11:48 AM EDT Patient arrived laying on left side. States she is not in any pain at this time. Patient's abdomen appears to be nondistended and soft to palpation. Patient encouraged to belch or pass gas. documented in this encounterWright-Patterson Medical Center10-27-2022 History and physical note * Sony Cedeño MD - 08/09/2022 11:30 AM EDT Images from the original note were not included. HISTORY AND PHYSICAL Vishal Formaners 1960 REFERRING PHYSICIAN: TRUDY Rendon CNP CHIEF COMPLAINT: Follow Up ([facility] ER 07/12/22) HPI: The patient [...] by me today at the request of TRUDY Lake, MELODY for my opinion and advice regarding Epigastric [...] entered by the nurse and reviewed by pa Nursing Notes: Alix GilAUTUMN 07/17/2022 2:57 PM [...] letter was sent to Dr. Ricki Griffin, COLLECTION SYSTEMS WORKER, INSIDE TECHNICAL SALES REPRESENTATIVE indicating the above finding for this patient. [...] 2022 TIME: 10:43 AM documented in this encounterW[facility] Miscellaneous Notes* Telephone Encounter - [...] instructed to call for more help. Halima Vermilya, RN documented in this encounterW[facility]10-04-2022 History of Present illness Narrative* Sony Cedeño MD - 07/17/2022 3:08 PM EDT HISTORY AND PHYSICAL Vishal George 1960 REFERRING PHYSICIAN: TRUDY Rendon, MELODY CHIEF COMPLAINT: Follow Up ([facility] ER 07/12/22) HPI: The patient [...] the request of Dr. Ricki Griffin, TRUDY, INSIDE TECHNICAL SALES REPRESENTATIVE for my opinion and advice regarding Epigastric [...] reviewed by me Nursing Notes: Alix Gil COREMAKER PIPE 07/17/2022 2:57 PM Signed REVIEW OF SYSTEMS: [...] letter was sent to Dr. Ricki Griffin, COLLECTION SYSTEMS WORKER, INSIDE TECHNICAL SALES REPRESENTATIVE indicating the above finding for this patient. [...] Sony Cedeño III, MD documented in this encounterWright[facility]10-04-2022 Nurse Note* Alix Gil, COREMAKER PIPE - 07/17/2022 2:50 PM EDT REVIEW OF [...] 2015 Alix Gil LPN documented in this encounterWright[facility]11-28-2012 History of Past illness Narrative* Problem Noted Date Resolved Date Unspecified essential hypertension 09/10/2012 08/29/2016 PMDD (premenstrual dysphoric disorder) 2 07/06/2015 Perimenopausal 09/10/2012 07/06/2015 documented as of this encounter (statuses as of 07/17/2022) [address]28-2012 History of Past illness Narrative* Problem Noted Date Resolved Date Unspecified essential hypertension 09/10/2012 08/29/2016 PMDD (premenstrual dysphoric disorder) 2 07/06/2015 Perimenopausal 09/10/2012 07/06/2015 documented as of this encounter (statuses as of 08/14/2022) [facility] of [facility] illness Narrative* Problem Noted Date Resolved Date Unspecified essential hypertension 09/10/2012 08/29/2016 PMDD (premenstrual dysphoric disorder) 2 07/06/2015 Perimenopausal 09/10/2012 07/06/2015 documented as of this encounter (statuses as of 08/15/2022) [address]28-2012 History of Past illness Narrative* Problem Noted Date Resolved Date Unspecified essential hypertension 09/10/2012 08/29/2016 PMDD (premenstrual dysphoric disorder) 2 07/06/2015 Perimenopausal 09/10/2012 07/06/2015 documented as of this encounter (statuses as of 08/17/2022) [address]28-2012 History of Past illness Narrative* Problem Noted Date Resolved Date Unspecified essential hypertension 09/10/2012 08/29/2016 PMDD (premenstrual dysphoric disorder) 2 07/06/2015 Perimenopausal 09/10/2012 07/06/2015 documented as of this encounter (statuses as of 09/07/2022) [address]28-2012 History of Past illness Narrative* Problem Noted Date Resolved Date Unspecified essential hypertension 09/10/2012 08/29/2016 PMDD (premenstrual dysphoric disorder) 2 07/06/2015 Perimenopausal 09/10/2012 07/06/2015 documented as of this encounter (statuses as of 03/25/2023) [address]28-2012 History of Past illness Narrative* Problem Noted Date Diagnosed Date Resolved Date Unspecified essential hypertension 09/10/2012 08/29/2016 PMDD (premenstrual dysphoric disorder) 09/10/2012 07/06/2015 Perimenopausal 09/10/2012 07/06/2015 documented as of this encounter (statuses as of 07/12/2023) [address]28-2012 History of Past illness Narrative* Problem Noted Date Diagnosed Date Resolved Date Unspecified essential hypertension 09/10/2012 08/29/2016 PMDD (premenstrual dysphoric disorder) 09/10/2012 07/06/2015 Perimenopausal 09/10/2012 07/06/2015 documented as of this encounter (statuses as of 08/18/2023) [address]28-2012 History of Past illness Narrative* Problem Noted Date Diagnosed Date Resolved Date Unspecified essential hypertension 09/10/2012 08/29/2016 PMDD (premenstrual dysphoric disorder) 09/10/2012 07/06/2015 Perimenopausal 09/10/2012 07/06/2015 documented as of this encounter (statuses as of 08/18/2023) [facility] Narrative* Problem Noted Date Diagnosed Date Resolved Date Unspecified essential hypertension 09/10/2012 08/29/2016 PMDD (premenstrual dysphoric disorder) 09/10/2012 07/06/2015 Perimenopausal 09/10/2012 07/06/2015 documented as of this encounter (statuses as of 08/31/2023) [facility] of [facility] illness Narrative* Problem Noted Date Diagnosed Date Resolved Date Unspecified essential hypertension 09/10/2012 08/29/2016 PMDD (premenstrual dysphoric disorder) 09/10/2012 07/06/2015 Perimenopausal 09/10/2012 07/06/2015 documented as of this encounter (statuses as of 12/27/2023) [facility] Future Appointments Appointment Date:09/28/2022 03:20:00 PM Scheduled Provider:RICKI GRIFFIN APRN, CNP Location:[facility] Appointment Type:[facility] Evaluation + Plan note Future Appointments Appointment Date:06/11/2025 02:20:00 PM Scheduled Provider:RICKI GRIFFIN APRN, CNP Location:[facility]ointment Type:[facility] Follow Up Future Scheduled Tests Laboratory* C-Reactive [...] Chest 2 Views (PA & Lateral) 03/01/25 [facility] Evaluation + Plan note Future Appointments Appointment Date:12/10/2025 02:20:00 PM Scheduled Provider:RICKI GRIFFIN APRN, CNP Location:[facility] Appointment Type: OV Future Scheduled Tests Laboratory* C-Reactive Protein 03/01/25 * Ferritin 06/10/25 * Helicobacter Pylori Antibody 04/29/25 * Iron Level 07/29/25 * Iron Level 06/10/25 * Lipase Level 04/29/25 * Reticulocytes (AO) 06/10/25 * A1C Hemoglobin 12/06/24 * A1C Hemoglobin 06/10/25 * A1C Hemoglobin 12/11/25 * Complete Blood Count 03/01/25 * Complete Blood Count 06/10/25 * Complete Blood Count 04/29/25 * Complete Blood Count 07/29/25 * Complete Blood Count 12/11/25 * Lipid Profile 12/06/24 * Lipid Profile 06/10/25 * Lipid Profile 12/11/25 * Albumin/Creatinine Ratio, Random Urine 12/06/24 * Albumin/Creatinine Ratio, Random Urine 06/10/25 * Albumin/Creatinine Ratio, Random Urine 12/11/25 * Vitamin D Level 12/06/24 * Vitamin D Level 06/10/25 * Vitamin D Level 12/11/25 * Complete Metabolic Panel 03/01/25 * Complete Metabolic Panel 12/06/24 * Complete Metabolic Panel 06/10/25 * Complete Metabolic Panel 04/29/25 * Complete Metabolic Panel 12/11/25 * TIBC 07/29/25 * TIBC 06/10/25 Radiology* XR Chest 2 Views (PA & Lateral) 03/01/25 [facility] Evaluation noteNo assessment information available [facility] Work Phone: Evaluxnqdb note* Diagnosis Epigastric pain- Primary Abdominal pain, epigastric Nausea and vomiting, unspecified vomiting type documented in this encounter [facility] note* Diagnosis Encounter for gynecological examination (general) (routine) without abnormal findings- Primary Encounter for screening mammogram for malignant neoplasm of breast Other screening mammogram Screening for osteoporosis Special screening for osteoporosis [facility] Other gastritis without bleeding- Primary [facility]* Diagnosis Onset Date Resolution Status 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 Dilated cardiomyopathy acute Heart failure with reduced ejection fraction acute Hypoxia acute Nausea & vomiting acute Pneumonia acute Sepsis acute [facility] Work Phone: evaluation note* Diagnosis Onset Date Resolution Status 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 Coronary artery disease acut e Dyslipidemia acute Hypoxia acute Nausea & vomiting acute V-tach acute Acute on chronic combined sy stolic and diastolic heart failure chronic HTN (hypertension) chronic [facility] Work Phone: Evaluation note* Diagnosis Onset Date Resolution Status V-tach acute Acute on chronic combined sy stolic and diastolic heart failure resolved Hypoxia resolved Nausea & vomiting resolved Epigastric pain [facility] Work Phone: Evaluation note* Diagnosis Onset Date Resolution Status 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 Acute on chronic combined sy stolic and diastolic heart failure resolved Hypoxia resolved Nausea & vomiting resolved Essential hypertension acute Hyperlipidemia acute Ischemic cardiomyopathy acut e Nonsustained ventricular tachycardia acute 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 Stented coronary artery February 25, 2023 [facility] Work Phone: Evaluation note* Diagnosis Chronic systolic heart failure (HCC)- Primary Chronic systolic heart failure Primary hypertension Unspecified essential hypertension 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 Hyperlipidemia, unspecified hyperlipidemia type Ischemic cardiomyopathy Other specified forms of chronic ischemic heart disease documented in this encounter [facility]* Diagnosis Epigastric pain- Primary Abdominal pain, epigastric Nausea and vomiting, unspecified vomiting type documented in this [facility]* Diagnosis Encounter for screening mammogram for malignant neoplasm of breast Other screening mammogram documented in this [facility]* Diagnosis Onset Date Resolution Status Essential hypertension acute Hyperlipidemia acute Ischemic cardiomyopathy acut e Nonsustained ventricular tachycardia acute 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 Stented coronary artery February 25, 2023 [facility] Essential hypertension acute Hyperlipidemia acute Ischemic cardiomyopathy acut e Nonsustained ventricular tachycardia acute 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 Stented coronary artery February 25, 2023 [facility] Work Phone: Evaluation note* Diagnosis Onset Date Resolution Status Essential hypertension acute Hyperlipidemia acute Ischemic cardiomyopathy acut e Nonsustained ventricular tachycardia acute 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 Stented coronary artery February 25, 2023 [facility] Work Phone: Evaluation note* Diagnosis Chronic systolic heart failure (HCC)- Primary Chronic systolic heart failure Primary hypertension Unspecified essential hypertension 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 Hyperlipidemia, unspecified hyperlipidemia type Ischemic cardiomyopathy Other specified forms of chronic ischemic heart disease documented in this encounter [facility]* Diagnosis Encounter for screening mammogram for malignant neoplasm of breast Other screening mammogram documented in this encounter [facility] note* Diagnosis Encounter for gynecological examination [...] status documented in this encounter [facility] note* Diagnosis Encounter for screening for osteoporosis Special screening for osteoporosis Asymptomatic postmenopausal status documented in this encounter [facility] note* Diagnosis Onset Date Resolution Status Admit Date Essential hypertension acute Se ptember 2024 12:58pm Hyperlipidemia acute June 30, 2025 12:58pm Ischemic cardiomyopathy acute S eptember 2024 12:58pm Nonsustained ventricular tachycardia acute June 30, 2025 12:58pm Stented coronary artery February 25, 2023 chronic June 30, 2025 12:58pm [facility] Work Phone: Hospital course Narrative No data available for this section [facility] Hospital Discharge instructions No data available for this section [facility] Progress note No data available for this section [facility] Reason for referral (narrative)* Outpatient Procedure (Routine) - Authorized Specialty Diagnoses / Procedures Referred By Contac t Referred To Contact [facility] Diagnoses Epigastric pain Nausea and vomiting, unspecified vomiting type Procedures EGD DIAGNOSTIC ESOPHAGOGASTRODUODENOSC OPY TRANSORAL DIAGNOSTIC Sony Cedeño MD [address] [place] [address] [address] Referral ID Status Reason Start Date Expiration Date Visits Requested Visits Authorized [id number] Authorized Auto-Generat ed Referral 07/17/2022 07/17/2023 1 1 [facility] for referral (narrative)* Outpatient Procedure (Routine) - Closed Specialty Diagnoses / Procedures Referred By Dayan woods Referred To Contact [facility] Diagnoses Epigastric pain Nausea and vomiting, unspecified vomiting type Procedures EGD DIAGNOSTIC ESOPHAGOGASTRODUODENOSC OPY TRANSORAL DIAGNOSTIC Sony Cedeño MD [address] [place] [address] [address] Referral ID Status Reason Start Date Expiration Date V isits Requested Visits Authorized [id number] Closed Auto-Generate d Referral 07/17/2022 07/17/2023 1 1 T [facility] for referral (narrative)* Diagnostic Procedure Only (Routine) - Closed Specialty Diagnoses / Procedures Referred By Dayan woods Referred To Contact [facility] Diagnoses Encounter for screening mammogram for malignant neoplasm of breast Procedures JON SCREENING W JOSHUA SCREENING DIGITAL BREAST TOMOSYNTHESIS BI SCREENING MAMMOGRAPHY BI 2-VIEW BREAST INC CAD Aracelis Mccormick MD [address] [place] [address] [facility] [address] [place] [phone] Referral ID Status Reason Start Date Expiration Date V isits Requested Visits Authorized [id number] Closed Auto-Generate d Referral 09/14/2024 10/14/2025 1 1 [facility] for referral (narrative)* Diagnostic Procedure Only (Routine) - Authorized Specialty Diagnoses / Procedures Referred By Dayan woods Referred To Contact [facility] Diagnoses Encounter for screening for osteoporosis Asymptomatic postmenopausal status Procedures DXA-AXIAL SKELETON DXA BONE DENSITY STUDY / SITES AXIAL SKEL Aracelis Mccormick MD [address] [place] [address] [place] [address] Referral ID Status Reason Start Date Expiration Date Visits Requested Visits Authorized [id number] Authorized Auto-Generat ed Referral 09/21/2024 10/21/2025 1 1 * Diagnostic Procedure Only (Routine) - Authorized Specialty Diagnoses / Procedures Referred By Dayan woods Referred To Contact [facility] Diagnoses Encounter for screening mammogram for breast cancer Procedures JON SCREENING W JOSHUA SCREENING DIGITAL BREAST TOMOSYNTHESIS BI SCREENING MAMMOGRAPHY BI 2-VIEW BREAST INC CAD Aracelis Mccormick MD [address] [place] [phone] [facility] [address] [place] [phone] Referral ID Status Reason Start Date Expiration Date Visits Requested Visits Authorized [id number] Authorized Auto-Generat ed Referral 09/21/2024 10/21/2025 1 1 [facility] for referral (narrative)No reason for referral [facility]: Reason for visit Narrative* Outpatient Procedure (Routine) - Closed Specialty Diagnoses / Procedures Referred By Dayan woods Referred To Contact [facility] Diagnoses Epigastric pain Nausea and vomiting, unspecified vomiting type Procedures EGD DIAGNOSTIC ESOPHAGOGASTRODUODENOSC OPY TRANSORAL DIAGNOSTIC Sony Cedeño MD [address] [place] [address] [facility] [address] [place] [address] Referral ID Status Reason Start Date Expiration Date V isits Requested Visits Authorized [id number] Closed Auto-Generate d Referral 07/17/2022 07/17/2023 1 1 [facility] for visit Narrative* Diagnostic Procedure Only (Routine) - Closed Specialty Diagnoses / Procedures Referred By Dayan t Referred To Contact [facility] Diagnoses Encounter for screening mammogram for malignant neoplasm of breast Procedures JON SCREENING W JOSHUA SCREENING DIGITAL BREAST TOMOSYNTHESIS BI SCREENING MAMMOGRAPHY BI 2-VIEW BREAST INC CAD Aracelis Mccormick MD [address] [place] [address] [facility] [address] [place] [phone] Referral ID Status Reason Start Date Expiration Date V isits Requested Visits Authorized [id number] Closed Auto-Generate d Referral 08/14/2022 09/13/2023 1 1 [facility] for visit Narrative* Diagnostic Procedure Only (Routine) - Closed Specialty Diagnoses / Procedures Referred By Dayan woods Referred To Contact [facility] Diagnoses Encounter for screening mammogram for malignant neoplasm of breast Procedures JON SCREENING W JOSHUA SCREENING DIGITAL BREAST TOMOSYNTHESIS BI SCREENING MAMMOGRAPHY BI 2-VIEW BREAST INC CAD Aracelis Mccormick MD [address] [place] [address] [facility] [address] [address] Referral ID Status Reason Start Date Expiration Date V isits Requested Visits Authorized [id number] Closed Auto-Generate d Referral 09/14/2024 10/14/2025 1 1 [facility] for visit Narrative* Diagnostic Procedure Only (Routine) - Closed Specialty Diagnoses / Procedures Referred By Dayan woods Referred To Contact [facility] Diagnoses Encounter for screening for osteoporosis Asymptomatic postmenopausal status Procedures DXA-AXIAL SKELETON DXA BONE DENSITY STUDY / SITES AXIAL SKEL Aracelis Mccormick MD [address] [place] [address] [place] [address] Referral ID Status Reason Start Date Expiration Date V isits Requested Visits Authorized [id number] Closed Auto-Generate d Referral 09/21/2024 10/21/2025 1 1 [facility] Chief Complaint and Reason for [...] PCI w/coronary stenting H FU Amb Documentation AGNC 03/29 NEEDS PRIOR TO 02/26 FOR MED. [...] PCI w/coronary stenting H FU Amb Documentation AGNC 03/29 NEEDS PRIOR TO 02/26 FOR MED. [...] 6:54am SPEC. May 01, 2025 9:40 am Chief Complaint Admit Date PRESENCE OF CORONARY ANGIOPLASTY IMPLANT AND GRAFT March 29, 2025 12:34pm Amb Documentation March 30, 2025 12:2 1pm Nausea with vomiting, unspecified April 132024 6:54am SPEC. May 01, 2025 9:40 am Chief Complaint Admit Date PRESENCE OF CORONARY ANGIOPLASTY IMPLANT AND GRAFT March 29, 2025 12:34pm Amb Documentation March 30, 2025 12:2 1pm Nausea with vomiting, unspecified April 132024 6:54am SPEC. May 01, 2025 9:40 am 6 M FU June 30, 2025 12:58pm Reason for Visit Admit Date Essential hypertension June 30, 025 12:58pm Hyperlipidemia June 30, 2025 12:58pm Ischemic cardiomyopathy June 30, 2025 12:58pm Nonsustained ventricular tachycardia Sep tember 2024 12:58pm Stented coronary artery June 30, 2025 12:58pm Family History Relationship Condition Age at Onset Recorded Date/T [...] Not Specified Cardiac disease Unknown Advance Directives Advance Directive Response Recorded Date/ Time Advance Directives No September 10:47am Living Will No April 20, 2021 9 :23pm Power of Automatic Thread Winder No April 20, 2021 9:23pm Advance Directive Response Recorded Date/ Time Advance Directives No September 10:47am Living Will No July 12, 2022 11:49am Power of Automatic Thread Winder No June 11:49am Advance Directive Response Recorded Date/ Time Advance Directives No September 9:47am Living Will No July 14 5:26pm Power of Automatic Thread Winder No July 14 5:26pm Advance Directive Response Recorded Date/ Time Advance Directives No September 10:47am Living Will No February 22, 2023 8 :34am Power of Automatic Thread Winder No February 22, 2023 8:34am Advance Directive Response Recorded Date/ Time Advance Directives No September 10:47am Living Will No February 22, 2023 4 :58pm Power of Automatic Thread Winder No February 22, 2023 4:58pm Advance Directive Response Recorded Date/ Time Advance Directives No September 10:47am Living Will No February 22, 2023 9 :38pm Power of Automatic Thread Winder No February 22, 2023 9:38pm Advance Directive Response Recorded Date/ Time Advance Directives on File No February 132022 8:44am Advance Directives No September 10:47am Living Will No March 13, 2023 8 :44am Power of Automatic Thread Winder No March 13, 2023 8:44am Latest Code Status on File Code Status Date Activated Date Inactivated Comments Full Code 02/26/2023 4:37 PM 03/01/2023 8:19 PM Full Code Order Discussed With: Patient Advance Directive Response Recorded Date/ Time Advance Directives on File No February 132022 8:44am Advance Directives No September 10:47am Living Will No April 24, 2023 2:26pm Power of Automatic Thread Winder No April 24 2:26pm Latest Code Status [...] No April 24, 2023 1:26pm Power of Automatic Thread Winder No April 24 1:26pm Date Activated Date [...] Do you have a Healthcare Power of Automatic Thread Winder? No April 24, 2023 2:26pm Advance Directives No September 10:47am Advance Directive Response Recorded Date/ Time Advance Directives No September 10:47am Summary Purpose Medications Administered Section Inactive Administered Medications - up to 3 most recent administrations Medication Order MAR Action Action Date Dose Rate Site benzocaine 20% 1 [place] (TOPEX) 1 [place], TOPICAL, DIRECTED, Starting on Corrina 08/09/22 at 1200, Until Corrina 08/09/22 at 1559, DOSING DIRECTED BY PHYSICIAN FOR PROCEDURAL SEDATION ONLY - Pharmaceutical Waste: Aerosol -, Intraprocedure Given 08/09/2022 11:30 AM EDT 1 [place] diphenhydrAMINE 12.5-50 mg injection (BENADRYL) 12.5-50 mg, [...] or prosecute any alcohol or drug abuse patient.[facility] CenterIn the event this information is protected by the Federal Confidentiality of Alcohol and Drug Abuse Patient Records regulations: The Federal rules restrict any use of the information to criminally investigate or prosecute any alcohol or drug abuse patient.[facility] CenterIn the event this information is protected by the Federal Confidentiality of Alcohol and Drug Abuse Patient Records regulations: The Federal rules restrict any use of the information to criminally investigate or prosecute any alcohol or drug abuse patient.[facility] CenterIn the event this information is protected by the Federal Confidentiality of Alcohol and Drug Abuse Patient Records regulations: The Federal rules restrict any use of the information to criminally investigate or prosecute any alcohol or drug abuse patient.[facility] CenterIn the event this information is protected by the Federal Confidentiality of Alcohol and Drug Abuse Patient Records regulations: The Federal rules restrict any use of the information to criminally investigate or prosecute any alcohol or drug abuse patient.[facility] CenterIn the event this information is protected by the Federal Confidentiality of Alcohol and Drug Abuse Patient Records regulations: The Federal rules restrict any use of the information to criminally investigate or prosecute any alcohol or drug abuse patient.[facility] CenterIn the event this information is protected by the Federal Confidentiality of Alcohol and Drug Abuse Patient Records regulations: The Federal rules restrict any use of the information to criminally investigate or prosecute any alcohol or drug abuse patient.[facility] CenterIn the event this information is protected by the Federal Confidentiality of Alcohol and Drug Abuse Patient Records regulations: The Federal rules restrict any use of the information to criminally investigate or prosecute any alcohol or drug abuse patient.[facility] CenterIn the event this information is protected by the Federal Confidentiality of Alcohol and Drug Abuse Patient Records regulations: The Federal rules restrict any use of the information to criminally investigate or prosecute any alcohol or drug abuse patient.[facility] Center[facility] the event this information is protected by the Federal Confidentiality of Alcohol and Drug Abuse Patient Records regulations: The Federal rules restrict any use of the information to criminally investigate or prosecute any alcohol or drug abuse patient.[facility] Center[facility] the event this information is protected by the Federal Confidentiality of Alcohol and Drug Abuse Patient Records regulations: The Federal rules restrict any use of the information to criminally investigate or prosecute any alcohol or drug abuse patient.[facility] Center[facility] the event this information is protected by the Federal Confidentiality of Alcohol and Drug Abuse Patient Records regulations: The Federal rules restrict any use of the information to criminally investigate or prosecute any alcohol or drug abuse patient.[facility] CenterIn the event this information is protected by the Federal Confidentiality of Alcohol and Drug Abuse Patient Records regulations: The Federal rules restrict any use of the information to criminally investigate or prosecute any alcohol or drug abuse patient.[facility] CenterIn the event this information is protected by the Federal Confidentiality of Alcohol and Drug Abuse Patient Records regulations: The Federal rules restrict any use of the information to criminally investigate or prosecute any alcohol or drug abuse patient.[facility] CenterIn the event this information is protected by the Federal Confidentiality of Alcohol and Drug Abuse Patient Records regulations: The Federal rules restrict any use of the information to criminally investigate or prosecute any alcohol or drug abuse patient.[facility] CenterIn the event this information is protected by the Federal Confidentiality of Alcohol and Drug Abuse Patient Records regulations: The Federal rules restrict any use of the information to criminally investigate or prosecute any alcohol or drug abuse patient.[facility] Reason for Visit (unrecogniz ed section and content) Reason Comments Follow Up [facility] ER 07/12/22 Reason Comments Yearly Exam Reason Comments Patient Question Reason Comments Follow Up Reason Comments 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 - Other Reason Comments Breathing Problem Reason Comments Breathing Problem CHF Reason Comments Yearly Exam Reason Comments Results Care Teams (unrecognized sec tion and content) Care Team Personnel Name: RICKI GRIFFIN AUTOMOTIVE MAINTENANCE TECHNICIAN - INSIDE TECHNICAL SALES REPRESENTATIVE Position: [employer] Member Role: Primary Care Physician Address: [address] [place] [address]- [place] Telecom: Care Team Related Persons Name: BRY VERNON Internal Medicine Physician Assistant Relationship Specialty Start Date End Date Ricki Griffin, INSIDE TECHNICAL SALES REPRESENTATIVE [address] [place] [address] PCP - General Family Medicine 08/08/16 Internal Medicine Physician Assistant Relationship Specialty Start Date End Date Ricki Griffin, INSIDE TECHNICAL SALES REPRESENTATIVE [address] [place] [address] PCP - General Family Medicine 08/08/16 Internal Medicine Physician Assistant Relationship Specialty Start Date End Date Ricki Griffin, INSIDE TECHNICAL SALES REPRESENTATIVE [address] [place] [address] PCP - General Family Medicine 08/08/16 Internal Medicine Physician Assistant Relationship Specialty Start Date End Date Ricki Griffin, INSIDE TECHNICAL SALES REPRESENTATIVE [address] [place] [address] PCP - General Family Medicine 08/08/16 Internal Medicine Physician Assistant Relationship Specialty Start Date End Date Ricki Griffin, INSIDE TECHNICAL SALES REPRESENTATIVE [address] [place] [address] PCP - General Family Medicine 08/08/16 Team Status: Active Member Role Status Dates Ricki Griffin UTILITIES SERVICE INVESTIGATOR, 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 Family Provider Activ e Ricki Griffin UTILITIES SERVICE INVESTIGATOR, 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 Primary Care Provider Active Team Status: Inactive Member Role Status Dates Ricki Griffin UTILITIES SERVICE INVESTIGATOR, 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 Primary Care Provider Active Dr. Edmundo Monae , DO Attending Provider, Génesis hennessy Active Team Status: Inactive Member Role Status Dates Ricki Griffin UTILITIES SERVICE INVESTIGATOR, 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 Primary Care Provider Active Dr. Aleksandar Rain MD Attending Provider, Emergency Pro vider Active Team Status: Inactive Member Role Status Dates Ricki Hugh Griffin UTILITIES SERVICE INVESTIGATOR, 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 Primary Care Provider, Attending Provider, Referring Provider Active Team Status: Active Member Role Status Dates Ricki Hugh Griffin UTILITIES SERVICE INVESTIGATOR, 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 Primary Care Provider Active Dr. Jose Antonio Reeves MD Attending Provider Active Team Status: Active Member Role Status Dates Ricki Hugh Griffin UTILITIES SERVICE INVESTIGATOR, 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 Primary Care Provider, Attending Provider, Referring Provider Active Team Status: Inactive Member Role Status Dates Ricki Hugh Griffin UTILITIES SERVICE INVESTIGATOR, 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 Primary Care Provider Active Dr. Arcadio Koehler MD Emergency Provider Active Team Status: Active Member Role Status Dates Ricki Hugh Griffin UTILITIES SERVICE INVESTIGATOR, 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 Primary Care Provider Active Dr. Dinesh Burris , DO Emergency Provider Active Dr. Julio César Arndt MD Admit Provider, Attending Pro vider Active Team Status: Active Member Role Status Dates Ricki Griffin UTILITIES SERVICE INVESTIGATOR, 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 Primary Care Provider Active Dr. Dinesh Burris , DO Emergency Provider Active Dr. Julio César Arndt MD Admit Provider, Other Provide r Active Dr. Zulma Brunner , DO Other Provider Active Dr. Rohan Awan MD Attending Provider, Othe r Provider Active Dr. Kt Romero , Other Provider Active Team Status: Active Member Role Status Dates Ricki Hugh Griffin UTILITIES SERVICE INVESTIGATOR, 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 Primary Care Provider Active Dr. Dinesh Burris DO Emergency Provider Active Dr. Julio César Arndt MD Admit Provider, Other Provide r Active Dr. Zulma Brunner DO Attending Provider, Other Provide r Active Dr. Rohan Awan MD Other Provider Active Dr. Kt Romero DO Other Provider Active Team Status: Active Member Role Status Dates Ricki Griffin UTILITIES SERVICE INVESTIGATOR, 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 Primary Care Provider Active Dr. Dinesh Burris DO Emergency Provider Active Dr. Julio César Arndt MD Admit Provider, Other Provide r Active Dr. Zulma Brunner , DO Other Provider Active Dr. Rohan Awan MD Other Provider Active Dr. Kt Romero , Other Provider Active Dr. Jose Antonio Reeves MD Attending Provider Active Team Status: Active Member Role Status Dates Ricki Griffin UTILITIES SERVICE INVESTIGATOR, 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 Primary Care Provider Active Dr. Dinesh Burris , DO Emergency Provider Active Dr. Julio César Arndt MD Admit Provider, Other Provide r Active Dr. Zulma Brunner , DO Other Provider Active Dr. Rohan Awan MD Other Provider Active Dr. Kt Romero , DO Attending Provider, Other Prov ider Active Team Status: Active Member Role Status Dates Ricki Griffin UTILITIES SERVICE INVESTIGATOR, 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 Primary Care Provider Active Dr. Dinesh Burris , DO Emergency Provider Active Dr. Julio César Arndt MD Admit Provider, Other Provide r Active Dr. Zulma Brunner , DO Attending Provider Active Dr. Rohan Awan MD Other Provider Active Dr. Kt Romero , DO Other Provider Active Team Status: Active Member Role Status Dates Ricki Griffin UTILITIES SERVICE INVESTIGATOR, 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 Primary Care Provider Active Dr. Dinesh Burris [...] Inactive Member Role Status Dates Ricki Griffin UTILITIES SERVICE INVESTIGATOR, 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 Primary Care Provider, Referring Provider Active Dr. Kt Romero , Attending Provider Active Team Status: Inactive Member Role Status Dates Ricki Griffin UTILITIES SERVICE INVESTIGATOR, 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 Primary Care Provider Active Dr. Arcadio Koehler MD Attending Provider, Emergency Provider Active Team Status: Inactive Member Role Status Dates Ricki Griffin UTILITIES SERVICE INVESTIGATOR, 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 Primary Care Provider Active Dr. Dinesh Burris , DO Emergency Provider Active Dr. Julio César Arndt MD Admit Provider, Other Provide r Active Dr. Zulma Brunner , DO Attending Provider Active Dr. Rohan Awan MD Other Provider Active Dr. Kt Romero , DO Other Provider Active Team Status: Inactive Member Role Status Dates Ricki Griffin UTILITIES SERVICE INVESTIGATOR, 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 Primary Care Provider Active Dr. Jose Antonio Reeves MD Attending Provider, Referring Pro vider Active Internal Medicine Physician Assistant Relationship Specialty Start Date End Date Ricki Griffin INSIDE TECHNICAL SALES REPRESENTATIVE [address] [place] [address] PCP - General Family Medicine 08/08/16 Team Status: Active Member Role Status Dates Ricki Griffin UTILITIES SERVICE INVESTIGATOR, 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 Primary Care Provider Active Dr. Dinesh Burris , DO Emergency Provider Active Dr. Julio César Arndt MD Admit Provider, Other Provide r Active Dr. Zulma Brunner , DO Referring Provider, Other Provide r Active Dr. Rohan Awan MD Other Provider Active Dr. Kt Romero , DO Attending Provider, Other Prov ider Active Team Status: Inactive Member Role Status Dates Ricki Griffin UTILITIES SERVICE INVESTIGATOR, 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 Primary Care Provider, Referring Provider Active Lashay Prater UTILITIES SERVICE INVESTIGATOR, 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 Attending Provider Active Team Status: Active Member Role Status Dates Ricki Griffin UTILITIES SERVICE INVESTIGATOR, 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 Primary Care Provider Active Sandra Moreau Attending Provider Active Team Status: Active Member Role Status Dates Ricki Griffin UTILITIES SERVICE INVESTIGATOR, 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 Primary Care Provider Active Dr. Jose Antonio Reeves MD Attending Provider, Referring Pro vider Active Team Status: Inactive Member Role Status Dates Ricki Griffin UTILITIES SERVICE INVESTIGATOR, UTILITIES SERVICE INVESTIGATOR-C Primary Care Provider Active Dr. Shira Oglesby MD Emergency Provider Active Team Status: Inactive Member Role Status Dates Rikci Griffin UTILITIES SERVICE INVESTIGATOR, UTILITIES SERVICE INVESTIGATOR-C Primary Care Provider Active Dr. Shira Oglesby MD Attending Provider, Emergency Provider Active Team Status: Inactive Member Role Status Dates Ricki Griffin UTILITIES SERVICE INVESTIGATOR, UTILITIES SERVICE INVESTIGATOR-C Primary Care Provider Active Lashay Prater UTILITIES SERVICE INVESTIGATOR, UTILITIES SERVICE INVESTIGATOR-C Attending Provider, Referring P gerhard Active Internal Medicine Physician Assistant Relationship Specialty Start Date End Date Ricki Griffin CNP [address] [place] [address] PCP - General Family Medicine 08/08/16 Internal Medicine Physician Assistant Relationship Specialty Start Date End Date Ricki Griffin CNP [address] [place] [address] PCP - General Family Medicine 08/08/16 Internal Medicine Physician Assistant Relationship Specialty Start Date End Date Ricki Griffin, INSIDE TECHNICAL SALES REPRESENTATIVE [address] [place] [address] PCP - General Family Medicine 08/08/16 Internal Medicine Physician Assistant Relationship Specialty Start Date End Date Ricki Griffin, INSIDE TECHNICAL SALES REPRESENTATIVE [address] [place] [address] PCP - General Family Medicine 08/08/16 Team Status: Active Member Role Status Dates Ricki Griffin UTILITIES SERVICE INVESTIGATOR, UTILITIES SERVICE INVESTIGATOR-C Primary Care Provider Active Lashay Prater UTILITIES SERVICE INVESTIGATOR, UTILITIES SERVICE INVESTIGATOR-C Attending Provider Active Internal Medicine Physician Assistant Relationship Specialty Start Date End Date Ricki Griffin, MELODY [address] [place] [address] PCP - General Family Medicine 08/08/16 Internal Medicine Physician Assistant Relationship Specialty Start Date End Date Ricki Griffin, MELODY [address] [place] [address] PCP - General Family Medicine 08/08/16 Internal Medicine Physician Assistant Relationship Specialty Start Date End Date Ricki Griffin, MELODY [address] [place] [address] PCP - General Family Medicine 08/08/16 Internal Medicine Physician Assistant Relationship Specialty Start Date End Date Ricki Griffin, MELODY [address] [place] [address] PCP - General Family Medicine 08/08/16 Internal Medicine Physician Assistant Relationship Specialty Start Date End Date Ricki Griffin, MELODY [address] [place] [address] PCP - General Family Medicine 08/08/16 Internal Medicine Physician Assistant Relationship Specialty Start Date End Date Ricki Griffin CNP [address] [place] [address] PCP - General Family Medicine 08/08/16 Team Status: Active Member Role Status Dates Ricki Griffin UTILITIES SERVICE INVESTIGATOR, UTILITIES SERVICE INVESTIGATOR-C Primary Care Provider Active Team Status: Inactive Member Role Status Dates Ricki Griffin UTILITIES SERVICE INVESTIGATOR, UTILITIES SERVICE INVESTIGATOR-C Primary Care Provider Active Start: December 072024 End: December 07, 2024 Ricki Griffin UTILITIES SERVICE INVESTIGATOR, UTILITIES SERVICE INVESTIGATOR-C Attending Provider Active Start: November End: December 07, 2024 Ricki Griffin UTILITIES SERVICE INVESTIGATOR, UTILITIES SERVICE INVESTIGATOR-C Referring Provider Active Start: November End: December 07, 2024 Team Status: Inactive Member Role Status Dates Ricki Griffin UTILITIES SERVICE INVESTIGATOR, UTILITIES SERVICE INVESTIGATOR-C Primary Care Provider Active Start: January 06, 2025 End: January 06, 2025 Ricki Griffin UTILITIES SERVICE INVESTIGATOR, UTILITIES SERVICE INVESTIGATOR-C Referring Provider Ac tive Start: January 06, 2025 End: January 06, 2025 Austen Castro UTILITIES SERVICE INVESTIGATOR, UTILITIES SERVICE INVESTIGATOR-C Attending Provider Active S tart: January 06, 2025 End: January 06, 2025 Team Status: Inactive Member Role Status Dates Ricki Griffin UTILITIES SERVICE INVESTIGATOR, UTILITIES SERVICE INVESTIGATOR-C Primary Care Provider Active Start: March 12, 2025 End: March 12, 2025 Dr. Jose Antonio Reeves MD Attending Provider Active S tart: March 12, 2025 End: March 12, 2025 Dr. Jose Antonio Reeves MD Referring Provider Active S tart: March 12, 2025 End: March 12, 2025 Team Status: Inactive Member Role Status Dates Ricki Griffin UTILITIES SERVICE INVESTIGATOR, UTILITIES SERVICE INVESTIGATOR-C Primary Care Provider Active Start: March 29, 2025 End: March 29, 2025 Austen Castro NP, UTILITIES SERVICE INVESTIGATOR-C Attending Provider Active S tart: March 29, 2025 End: March 29, 2025 Austen Castro UTILITIES SERVICE INVESTIGATOR, UTILITIES SERVICE INVESTIGATOR-C Referring Provider Active S tart: March 29, 2025 End: March 29, 2025 Team Status: Active Member Role Status Dates Ricki Griffin UTILITIES SERVICE INVESTIGATOR, UTILITIES SERVICE INVESTIGATOR-C Primary Care Provider Active Start: March 29, 2025 Dr. Jose Antonio Reeves MD Attending Provider Active S tart: March 29, 2025 Team Status: Active Member Role Status Dates Ricki Griffin UTILITIES SERVICE INVESTIGATOR, UTILITIES SERVICE INVESTIGATOR-C Primary Care Provider Active Start: March 30, 2025 Lashay Prater UTILITIES SERVICE INVESTIGATOR, UTILITIES SERVICE INVESTIGATOR-C Attending Provider Active Start: March 30, 2025 Team Status: Active Member Role/Relationship Status Dates Ricki Griffin UTILITIES SERVICE INVESTIGATOR, UTILITIES SERVICE INVESTIGATOR-C Primary Care Provider Active Team Status: Inactive Member Role/Relationship Status Dates Ricki Griffin UTILITIES SERVICE INVESTIGATOR, UTILITIES SERVICE INVESTIGATOR-C Primary Care Provider Active Start: January 06, 2025 End: January 06, 2025 Ricki Griffin UTILITIES SERVICE INVESTIGATOR, UTILITIES SERVICE INVESTIGATOR-C Referring Provider Ac tive Start: January 06, 2025 End: January 06, 2025 Austen Castro UTILITIES SERVICE INVESTIGATOR, UTILITIES SERVICE INVESTIGATOR-C Attending Provider Active S tart: January 06, 2025 End: January 06, 2025 Team Status: Inactive Member Role/Relationship Status Dates Ricki Griffin UTILITIES SERVICE INVESTIGATOR, UTILITIES SERVICE INVESTIGATOR-C Primary Care Provider Active Start: March 12, 2025 End: March 12, 2025 Dr. Jose Antonio Reeves MD Attending Provider Active S tart: March 12, 2025 End: March 12, 2025 Dr. Jose Antonio Reeves MD Referring Provider Active S tart: March 12, 2025 End: March 12, 2025 Team Status: Inactive Member Role/Relationship Status Dates Ricki Griffin UTILITIES SERVICE INVESTIGATOR, UTILITIES SERVICE INVESTIGATOR-C Primary Care Provider Active Start: March 29, 2025 End: March 29, 2025 Austen Castro UTILITIES SERVICE INVESTIGATOR, UTILITIES SERVICE INVESTIGATOR-C Attending Provider Active S tart: March 29, 2025 End: March 29, 2025 Austen Castro UTILITIES SERVICE INVESTIGATOR, UTILITIES SERVICE INVESTIGATOR-C Referring Provider Active S tart: March 29, 2025 End: March 29, 2025 Team Status: Active Member Role/Relationship Status Dates Ricki Griffin UTILITIES SERVICE INVESTIGATOR, UTILITIES SERVICE INVESTIGATOR-C Primary Care Provider Active Start: March 29, 2025 Dr. Jose Antonio Reeves MD Attending Provider Active S tart: March 29, 2025 Team Status: Active Member Role/Relationship Status Dates Ricki Griffin UTILITIES SERVICE INVESTIGATOR, UTILITIES SERVICE INVESTIGATOR-C Primary Care Provider Active Start: March 30, 2025 Lashay Prater UTILITIES SERVICE INVESTIGATOR, UTILITIES SERVICE INVESTIGATOR-C Attending Provider Active Start: March 30, 2025 Team Status: Inactive Member Role/Relationship Status Dates Ricki Griffin UTILITIES SERVICE INVESTIGATOR, UTILITIES SERVICE INVESTIGATOR-C Primary Care Provider Active Start: April 30, 2025 End: April 30, 2025 Ricki Griffin UTILITIES SERVICE INVESTIGATOR, UTILITIES SERVICE INVESTIGATOR-C Attending Provider Ac tive Start: April 30, 2025 End: April 30, 2025 Ricki Griffin UTILITIES SERVICE INVESTIGATOR, UTILITIES SERVICE INVESTIGATOR-C Referring Provider Ac tive Start: April 30, 2025 End: April 30, 2025 Team Status: Active Member Role/Relationship Status Dates Ricki Griffin UTILITIES SERVICE INVESTIGATOR, UTILITIES SERVICE INVESTIGATOR-C Primary Care Provider Active Start: May 01, 2025 Ricki Griffin UTILITIES SERVICE INVESTIGATOR, UTILITIES SERVICE INVESTIGATOR-C Attending Provider Ac tive Start: May 01, 2025 Ricki Griffin UTILITIES SERVICE INVESTIGATOR, UTILITIES SERVICE INVESTIGATOR-C Referring Provider Ac tive Start: May 01, 2025 Team Status: Inactive Member Role/Relationship Status Dates Ricki Griffin UTILITIES SERVICE INVESTIGATOR, UTILITIES SERVICE INVESTIGATOR-C Primary Care Provider Active Start: May 01, 2025 End: May 01, 2025 Ricki Griffin UTILITIES SERVICE INVESTIGATOR, UTILITIES SERVICE INVESTIGATOR-C Attending Provider Ac tive Start: May 01, 2025 End: May 01, 2025 Ricki Griffin UTILITIES SERVICE INVESTIGATOR, UTILITIES SERVICE INVESTIGATOR-C Referring Provider Ac tive Start: May 01, 2025 End: May 01, 2025 Team Status: Inactive Member Role/Relationship Status Dates Ricki Griffin UTILITIES SERVICE INVESTIGATOR, UTILITIES SERVICE INVESTIGATOR-C Primary Care Provider Active Start: March 12, 2025 End: March 12, 2025 Dr. Jose Antonio Reeves MD Attending Provider Active S tart: March 12, 2025 End: March 12, 2025 Dr. Jose Antonio Reeves MD Referring Provider Active S tart: March 12, 2025 End: March 12, 2025 Team Status: Inactive Member Role/Relationship Status Dates Ricki Griffin UTILITIES SERVICE INVESTIGATOR, UTILITIES SERVICE INVESTIGATOR-C Primary Care Provider Active Start: March 29, 2025 End: March 29, 2025 Austen Castro UTILITIES SERVICE INVESTIGATOR, UTILITIES SERVICE INVESTIGATOR-C Attending Provider Active S tart: March 29, 2025 End: March 29, 2025 Austen Castro UTILITIES SERVICE INVESTIGATOR, UTILITIES SERVICE INVESTIGATOR-C Referring Provider Active S tart: March 29, 2025 End: March 29, 2025 Team Status: Active Member Role/Relationship Status Dates Ricki Griffin UTILITIES SERVICE INVESTIGATOR, UTILITIES SERVICE INVESTIGATOR-C Primary Care Provider Active Start: March 29, 2025 Dr. Jose Antonio Reeves MD Attending Provider Active S tart: March 29, 2025 Team Status: Active Member Role/Relationship Status Dates Ricki Griffin UTILITIES SERVICE INVESTIGATOR, UTILITIES SERVICE INVESTIGATOR-C Primary Care Provider Active Start: March 30, 2025 Lashay Prater UTILITIES SERVICE INVESTIGATOR, UTILITIES SERVICE INVESTIGATOR-C Attending Provider Active Start: March 30, 2025 Team Status: Inactive Member Role/Relationship Status Dates Ricki Griffin UTILITIES SERVICE INVESTIGATOR, UTILITIES SERVICE INVESTIGATOR-C Primary Care Provider Active Start: April 30, 2025 End: April 30, 2025 Ricki Griffin UTILITIES SERVICE INVESTIGATOR, UTILITIES SERVICE INVESTIGATOR-C Attending Provider Ac tive Start: April 30, 2025 End: April 30, 2025 Ricki Griffin UTILITIES SERVICE INVESTIGATOR, UTILITIES SERVICE INVESTIGATOR-C Referring Provider Ac tive Start: April 30, 2025 End: April 30, 2025 Team Status: Inactive Member Role/Relationship Status Dates Ricki Griffin UTILITIES SERVICE INVESTIGATOR, UTILITIES SERVICE INVESTIGATOR-C Primary Care Provider Active Start: May 01, 2025 End: May 01, 2025 Ricki Griffin UTILITIES SERVICE INVESTIGATOR, UTILITIES SERVICE INVESTIGATOR-C Attending Provider Ac tive Start: May 01, 2025 End: May 01, 2025 Ricki Griffin UTILITIES SERVICE INVESTIGATOR, UTILITIES SERVICE INVESTIGATOR-C Referring Provider Ac tive Start: May 01, 2025 End: May 01, 2025 Team Status: Inactive Member Role/Relationship Status Dates Ricki Griffin UTILITIES SERVICE INVESTIGATOR, UTILITIES SERVICE INVESTIGATOR-C Primary Care Provider Active Start: May End: June 09, 2025 Ricki Griffin UTILITIES SERVICE INVESTIGATOR, UTILITIES SERVICE INVESTIGATOR-C Attending Provider Active Start: June 09, 2025 End: June 09, 2025 Ricki Griffin UTILITIES SERVICE INVESTIGATOR, UTILITIES SERVICE INVESTIGATOR-C Referring Provider Active Start: June 09, 2025 End: June 09, 2025 Team Status: Inactive Member Role/Relationship Status Dates Ricki Griffin UTILITIES SERVICE INVESTIGATOR, UTILITIES SERVICE INVESTIGATOR-C Primary Care Provider Active Start: June 162024 End: June 16, 2025 Ricki Griffin UTILITIES SERVICE INVESTIGATOR, UTILITIES SERVICE INVESTIGATOR-C Attending Provider Active Start: June End: June 16, 2025 Ricki Hugh Bernalillo UTILITIES SERVICE INVESTIGATOR, UTILITIES SERVICE INVESTIGATOR-C Referring Provider Active Start: June End: June 16, 2025 Team Status: Active Member Role/Relationship Status Dates Ricki Griffin UTILITIES SERVICE INVESTIGATOR, UTILITIES SERVICE INVESTIGATOR-C Primary care physicia n Active Team Status: Inactive Member Role/Relationship Status Dates Ricki Griffin UTILITIES SERVICE INVESTIGATOR, UTILITIES SERVICE INVESTIGATOR-C Primary care physicia n Active Start: March 12, 2025 End: March 12, 2025 Dr. Jose Antonio Reeves MD Attending physician Active Start: March 12, 2025 End: March 12, 2025 Dr. Jose Antonio Reeves MD Referring Provider Active S tart: March 12, 2025 End: March 12, 2025 Team Status: Inactive Member Role/Relationship Status Dates Ricki Griffin UTILITIES SERVICE INVESTIGATOR, UTILITIES SERVICE INVESTIGATOR-C Primary care physicia n Active Start: March 29, 2025 End: March 29, 2025 Austen Castro UTILITIES SERVICE INVESTIGATOR, UTILITIES SERVICE INVESTIGATOR-C Attending physician Active Start: March 29, 2025 End: March 29, 2025 Austen Castro UTILITIES SERVICE INVESTIGATOR, UTILITIES SERVICE INVESTIGATOR-C Referring Provider Active S tart: March 29, 2025 End: March 29, 2025 Team Status: Active Member Role/Relationship Status Dates Ricki Griffin UTILITIES SERVICE INVESTIGATOR, UTILITIES SERVICE INVESTIGATOR-C Primary care physicia n Active Start: March 29, 2025 Dr. Jose Antonio Reeves MD Attending physician Active Start: March 29, 2025 Team Status: Active Member Role/Relationship Status Dates Ricki Griffin UTILITIES SERVICE INVESTIGATOR, UTILITIES SERVICE INVESTIGATOR-C Primary care physicia n Active Start: March 30, 2025 Lashay Prater UTILITIES SERVICE INVESTIGATOR, UTILITIES SERVICE INVESTIGATOR-C Attending physician Active Start: March 30, 2025 Team Status: Inactive Member Role/Relationship Status Dates Ricki Griffin UTILITIES SERVICE INVESTIGATOR, UTILITIES SERVICE INVESTIGATOR-C Primary care physicia n Active Start: April 30, 2025 End: April 30, 2025 Ricki Griffin UTILITIES SERVICE INVESTIGATOR, UTILITIES SERVICE INVESTIGATOR-C Attending physician A ctive Start: April 30, 2025 End: April 30, 2025 Ricki Griffin UTILITIES SERVICE INVESTIGATOR, UTILITIES SERVICE INVESTIGATOR-C Referring Provider Ac tive Start: April 30, 2025 End: April 30, 2025 Team Status: Inactive Member Role/Relationship Status Dates Ricki Griffin UTILITIES SERVICE INVESTIGATOR, UTILITIES SERVICE INVESTIGATOR-C Primary care physicia n Active Start: May 01, 2025 End: May 01, 2025 Ricki Griffin UTILITIES SERVICE INVESTIGATOR, UTILITIES SERVICE INVESTIGATOR-C Attending physician A ctive Start: May 01, 2025 End: May 01, 2025 Ricki Griffin UTILITIES SERVICE INVESTIGATOR, UTILITIES SERVICE INVESTIGATOR-C Referring Provider Ac tive Start: May 01, 2025 End: May 01, 2025 Team Status: Inactive Member Role/Relationship Status Dates Ricki Griffin UTILITIES SERVICE INVESTIGATOR, UTILITIES SERVICE INVESTIGATOR-C Primary care physician Active Start: May End: June 09, 2025 Ricki Griffin UTILITIES SERVICE INVESTIGATOR, UTILITIES SERVICE INVESTIGATOR-C Attending physician Active Start: June 09, 2025 End: June 09, 2025 Ricki Griffin UTILITIES SERVICE INVESTIGATOR, UTILITIES SERVICE INVESTIGATOR-C Referring Provider Active Start: June 09, 2025 End: June 09, 2025 Team Status: Inactive Member Role/Relationship Status Dates Ricki Griffin UTILITIES SERVICE INVESTIGATOR, UTILITIES SERVICE INVESTIGATOR-C Primary care physician Active Start: June 16, 2025 End: June 16, 2025 Ricki Griffin UTILITIES SERVICE INVESTIGATOR, UTILITIES SERVICE INVESTIGATOR-C Attending physician Active Start: June End: June 16, 2025 Ricki Griffin UTILITIES SERVICE INVESTIGATOR, UTILITIES SERVICE INVESTIGATOR-C Referring Provider Active Start: June End: June 16, 2025 Team Status: Inactive Member Role/Relationship Status Dates Ricki Griffin UTILITIES SERVICE INVESTIGATOR, UTILITIES SERVICE INVESTIGATOR-C Primary care physician Active Start: June 30, 2025 End: June 30, 2025 Ricki Griffin UTILITIES SERVICE INVESTIGATOR, UTILITIES SERVICE INVESTIGATOR-C Referring Provider Active Start: June End: June 30, 2025 Austen Castro UTILITIES SERVICE INVESTIGATOR, UTILITIES SERVICE INVESTIGATOR-C Attending physician Active Start: June 30, 2025 End: June 30, 2025 Care Team (unrecognized sect ion and content) Care Team Personnel Name: RICKI GRIFFIN AUTOMOTIVE MAINTENANCE TECHNICIAN - INSIDE TECHNICAL SALES REPRESENTATIVE Position: P4 Advanced Practice Nurse Member Role: Primary Care Physician Address: Address: [address] [place] [address]- [place] Care Team Related Persons Name: ALEKSANDAR KATE INFORMATION SOURCE (unrecogn ized section and content) DATE CREATED AUTHOR 09/26/2022 [facility] DATE CREATED AUTHOR AUTHOR'S ORGANIZ ATION 03/27/2023 [facility] DATE CREATED AUTHOR AUTHOR'S ORGANIZ ATION 12/28/2023 [facility] DATE CREATED AUTHOR AUTHOR'S ORGANIZ ATION 12/23/2024 [facility] DATE CREATED AUTHOR AUTHOR'S ORGANIZ ATION 07/08/2025 [facility] DATE CREATED AUTHOR AUTHOR'S ORGANIZ ATION 07/27/2025 [facility] PERTAINING TO PATIENTS WHO [...] BE BASED ON THE PRIMARY CLINICAL RECORDS. [employer] [facility]. provides no warranty or guarantee of the accuracy or completeness of information in this document.
--- OUTSIDE RECORDS SUMMARY | 2025-07-30 14:39 | XMS RPT_ITS | CCD ---
Author Organization [facility] Care Team Providers Care Physician Recruiter Name Role Phone Ricki Griffin CNP Primary Care Provider [phone] GABY DESIGN ENGINEER - RICKI OLIVER Primary Care Phys ician RAFY WILLIAMSON-SAMEER OLIVER Attending RICKI Gaviria CNP Primary Care Unavaila ble Gaby REGISTER CLERK, REGISTER CLERK-C Ricki Reese Primary Care Pr ovider Dr. [...] Dr. Jose Antonio Reeves Referring Provider Gaby REGISTER CLERK, REGISTER CLERK-C Ricki Reese Referring Provi timo Ricki Griffin CNP Primary Care Provider OLY GUZMÁN Attending Unavailable DAVIE REY Admitting Unavailable ZULMA BRUNNER Referring Unavailab LENKA Coleman Unavailable GABY, RICKI D Primary Care Unavailable Dr. Zulma Brunner Referring Provider Sandra Moreau Attending Provider Unavailable Moi REGISTER CLERK, REGISTER CLERK-C Lashay Attending Provider Gaby REGISTER CLERK, REGISTER CLERK-C Ricki Reese Primary Care Pr ovider Gaby REGISTER CLERK, REGISTER CLERK-C Ricki Reese Referring Provi timo Moi REGISTER CLERK, REGISTER CLERK-C Lashay Attending Provider Dr. Jose Antonio Reeves Attending Provider Gaby REGISTER CLERK, REGISTER CLERK-C Ricki Reese Primary Care Pr ovider Gaby REGISTER CLERK, REGISTER CLERK-C Ricki Reese Referring Provi timo Moi REGISTER CLERK, REGISTER CLERK-C Lashay Attending Provider Dr. Jose Antonio Reeves Referring Provider AURTHUY LUCASN Attending Unavailable GABY, RICKI D Primary Care Unavailable GABY, RICIK D Primary Care Unavailable AURIN, SHAY Attending Unavailable GABY, RICKI D Primary Care Unavailable AURIN, SHAY Attending Unavailable GABY, RICKI D Primary Care Unavailable AURIN, SHAY Attending Unavailable [place] PLASTIC MOLDING OPERATOR, Ricki D Primary Care Provider [phone] JONG LOZOYA ARACELIS Referring Unavail able GABY, RICKI D Primary Care Unavailable NELUZ MARINA RODRIGUEZRE Attending Unavail able GABY, RICKI D Primary Care Unavailable NEYHART DEVORA, ARACELIS Referring Unavail able GABY, RICKI D Primary Care Unavailable NEYFABIOLAT LOZOYA, ARACELIS Referring Unavail able [place] REGISTER CLERK-C, Ricki Reese Primary Care Provi timo Gaby REGISTER CLERK-CRicki Attending Provider Gaby REGISTER CLERK-CRicki Referring Provider Matthew REGISTER CLERKAusten Sales Attending Provider Dr. Jose Antonio Reeves MD Attending Provider Dr. Jose Antonio Reeves MD Referring Provider [phone] Matthew REGISTER CLERK-C, Austen Traore Referring Provider Moi REGISTER CLERK-CLashay Attending Provider Gaby REGISTER CLERK-C, Ricki Reese Primary Care Provi timo [place] REGISTER CLERK-C, Ricki Reese Referring Provider Gaby REGISTER CLERK-C, Ricki Reese Attending Provider Gaby REGISTER CLERK-C, Ricki Reese Primary Care Provi timo Matthew REGISTER CLERK-C, Austen Traore Attending Provider Gaby REGISTER CLERK-C, Ricki Reese Referring Provider Gaby REGISTER CLERK-C, Ricki Reese Primary Care Physi karen Dr. Jose Antonio Reeves MD Attending Physician Matthew REGISTER CLERK-C, Austen Traore Attending Physician [phone] Moi REGISTER CLERK-CLashay Attending Physician Gaby REGISTER CLERK-C, Ricki Reese Attending Physicia n Gaby, Ricki Reese Primary Care Unavail able Austen Castro Attending Unavailable Gaby, Ricki Reese Referring Unavail able Gaby, Ricki Reese Primary Care Unavail able [place], Ricki Reese Referring Unavail able Austen Castro Attending Unavailable Gaby, Ricki Reese Attending Unavail able [place], Ricki Reese Referring Unavail able Gaby, Ricki Reese Primary Care Unavail able [place], Ricki Reese Attending Unavail able Gaby, Ricki Reese Referring Unavail able [place], Ricki Reese Primary Care Unavail able [place], Ricki Reese Primary Care Unavail able [place], Ricki Reese Attending Unavail able [place], Ricki Reese Referring Unavail able [place], Ricki Reese Primary Care Unavail able Gaby, [...] Unavail able Ricki Griffin Attending Unavail able MahnomenRicki cornelius Referring Unavail able Lashay Prater NP Attending Unavailable Ricki Griffin Primary Care Unavail able Jose Antonio Reeves Attending Unavailable Ricki Griffin Primary Care Unavail able GABY DESIGN ENGINEER - PLASTIC MOLDING OPERATOR, RICKI Carlson Primary Care U latoya GR MD, DR SHRESTHA Attending Unavailabl e GABY DESIGN ENGINEER - PLASTIC MOLDING OPERATOR, RICKI Carlson Attending U latoya BAKERPKINS DESIGN ENGINEER - PLASTIC MOLDING OPERATOR, RICKI Carlson Primary Care U latoya Allergies Allergy Classification Reported Allergen(s) Allergy Type Date of Onset Reaction(s) Facility (19 sources) Adhesive Tape; Translations: [ADHESIVE TAPE (ROSINS)] Allergy to substance 09-10-2012 [facility] (10 sources) Nicotine; Translations: [nicotine] Drug Allergy 01-06-2025 [facility] Comment on above: Nicotine patch (1 source) Nicotine Drug Allergy 06-30-2025 [facility] Repository Medications Current Medications Medication Drug Class(es) Dates Sig (Normalized) Sig (Original) acetaminophen 325 mg / HYDROcodone bitartrate 5 mg oral tablet (3 sources) Opioid Agonist Start: 07-12-2022 take 1 tablet by mouth every six hours as needed Hydrocodone-Acetam inophen Active 1 TABLET PO EVERY 6 HOURS NEEDED 10 3 July 12, 2022 [id number] 200 actuat albuterol 0.09 mg/actuat metered dose [...] q6h, # 18 gram(s), 1 Refill(s), [facility] COPD with exacerbation, 151, cm, 06/10/25 7:53:00 [...] q6h, # 18 gram(s), 1 Refill(s), [facility] COPD with exacerbation, 157.5, cm, 06/05/24 14:27:00 [...] qDay, # 90 tab(s), 1 Refill(s), Pharmacy: [facility] Hyperlipidemia LDL goal Start Date: [...] tab(s), 0 Refill(s), 09/26/22 13:20:00 EST, Pharmacy: [facility], 157.5, cm, 09/21/22 13:03:00 [...] BID, # 180 tab(s), 1 Refill(s), Pharmacy: [facility] 151, cm, 06/10/25 7:53:00 EDT, Height, kg, 06/10/25 7:53:00 EDT, Dosing Weight Start Date: 06/10/25 Status: Ordered Medication Dispense Status: Completed Quantity: 180.0 Unit: tab(s) Total Allowed Fills: 2 Fills Dispensed: 0 Start: 03-15-2025 BuPROPion (Eqv -Wellbutrin SR) 150 mg/12 hours oral tablet, extended release Dose : 150 mg = 1 tab(s), Oral, BID, # 180 tab(s), 0 Refill(s), Pharmacy: [facility] 151, cm, 02/26/25 13:34:00 EDT, Height, kg, 02/26/25 13:34:00 EDT, Dosing Weight Start Date: 03/15/25 Status: Ordered Quantity: 180.0 Unit: tab(s) Repeat number: 1 busPIRone hydrochloride 10 m g oral tablet (20 sources) Start: 12-11-2017 busPIRone 10 m g oral tablet Dose : 10 mg = 1 tab(s), Oral, BID, # 180 tab(s), 1 Refill(s), Pharmacy: [facility] 151, cm, 06/10/25 7:53:00 EDT, Height, kg, [...] qDay, # 90 cap(s), 1 Refill(s), Pharmacy: [facility] Chronic pain of right hip [...] qDay, # 90 tab(s), 1 Refill(s), Pharmacy: [facility], Seasonal allergies, 151, cm, 06/10/25 7:53:00 EDT, Height, kg, 06/10/25 7:53:00 EDT, Dosing Weight Start Date: 06/10/25 Status: Ordered Medication Dispense Status: Completed Quantity: 90.0 Unit: tab(s) Total Allowed Fills: 2 Fills Dispensed: 0 Indications: Other seasonal allergic rhinitis; Start: 12-11-2024 Zyrtec 10 mg o ral tablet Dose : 10 mg = 1 tab(s), Oral, qDay, # 90 tab(s), 1 Refill(s), Pharmacy: [facility] Seasonal allergies, 157, cm, 12/11/24 14:04:00 EST, [...] week, # 7 cap(s), 1 Refill(s), Pharmacy: [facility], Vitamin D deficiency, 157, [...] qDay, # 90 tab(s), 1 Refill(s), Pharmacy: [facility], [facility] 151, cm, 06/10/25 7:53:00 EDT, Height, [...] qHS, # 30 tab(s), 0 Refill(s), Pharmacy: [facility], Epigastric abdominal pain, 151, [...] tab(s), 0 Refill(s), 10/01/22 13:23:00 EST, Pharmacy: [facility], 157.5, cm, 09/21/22 13:03:00 [...] EA, 0 Refill(s), 09/27/22 13:21:00 EST, Pharmacy: [facility], 157.5, cm, 09/21/22 13:03:00 EST, Height Start Date: 09/21/22 Stop Date: 09/27/22 Status: Ordered montelukast 10 mg oral tablet (9 sources) Leukotriene Receptor Antagonist Start: Singulair 10 mg oral tablet Dose : 10 mg = 1 tab(s), Oral, qDay, # 90 tab(s), 1 Refill(s), [facility] Seasonal allergies Cough with congestion of paranasal [...] q12h, # 60 tab(s), 0 Refill(s), Pharmacy: [facility], 151, cm, 02/26/25 13:34:00 EDT, Height, kg, 02/26/25 13:34:00 EDT, Dosing Weight Start Date: 03/11/25 Status: Ordered Medication Dispense Status: Completed Quantity: 60.0 Unit: tab(s) Total Allowed Fills: 1 Fills Dispensed: 0 Start: 2025 Mucus Relief E R 600 mg oral tablet, extended release Dose : 600 mg = 1 tab(s), Oral, q12h, # 60 tab(s), 0 Refill(s), Pharmacy: [facility], 151, cm, 02/26/25 13:34:00 [...] pain, # 100 tab(s), 3 Refill(s), Pharmacy: [facility], [facility], 157.5, cm, 06/05/24 14:27:00 EDT, Height, kg, 06/05/24 14:27:00 EDT, Dosing Weight Start Date: 06/05/24 Stop Date: 10/03/24 Status: Ordered Medication Dispense Status: Completed Quantity: 100.0 Unit: tab(s) Total Allowed Fills: 4 Fills Dispensed: 0 Start: 09-29-2021 End: 01-27-2022 Nitrostat 0.4 mg sublingual tablet Dose : 0.4 mg = 1 tab(s), Sublingual, q5min, PRN for chest pain, # 100 tab(s), 3 Refill(s), Pharmacy: [facility], 157, cm, 09/29/21 14:25:00 [...] q24h, # 3 EA, 1 Refill(s), Pharmacy: [facility], [facility], 151, cm, 06/10/25 7:53:00 EDT, Height, kg, [...] q24h, # 3 EA, 1 Refill(s), Pharmacy: [facility], 157, cm, 04/06/22 15:49:00 [...] qDay, # 90 tab(s), 1 Refill(s), Pharmacy: [facility], [facility], 151, cm, 06/10/25 7:53:00 EDT, Height, kg, [...] qDay, # 100 tab(s), 0 Refill(s), Pharmacy: [facility], [facility] 151, cm, 02/26/25 13:34:00 EDT, Height, [...] stomach, # 120 tab(s), 1 Refill(s), Pharmacy: [facility], Hiatal hernia with GERD, [...] Coronary arteriosclerosis; Translations: [Atherosclerotic heart disease of [place] coronary artery without angina pectoris] Onset: 2 [...] Facility Cardiology Visit Reporton Cardiology Visit Report [facility] [address] [place] [address] OFFICE VISIT Date of Service: 06/30/25 MR#: [id number] Acct: [id number] Name: VISHAL GEORGE Rep #: [id number] : 1960 Provider: PHONG rome Age/Sex: 65/F Location: [facility] Status: Signed HPI HPI History of Present Illness Details: VISHAL GEORGE, is a 65 F who presents to the office today for a cardiovascular follow-up visit. Patient presented to [facility] for severe nausea and vomiting. Patient [...] V. tach/wide-complex tachycardia. She was transferred to [facility] for ICD evaluation. 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 Normal [facility] Ferritinon 06-16-2025 Ferritin [Mass/Vol] 13 ng/mL Low 22-378 [facility] Comment on above: Performed By: #### L 100.9950, L503.6550, L503.6030 ####[facility] [address] [place], [address] Iron measurement (mass/mass) Ordered By: Ricki Griffin on 06-16-2025 Iron (Unsp spec) [Mass/Mass] 17 ug/dL Low 50-170 [facility] Iron+Iron Binding Capacityon 06-16-2025 Iron [Mass/Vol] 17 ug/dL Low 50-170 [facility] Comment on above: Performed By: #### L 100.9950, L503.6550, L503.6030 ####[facility] [address] [place], [address] IRON SATURATION 4.0 Low 13-59 [facility] Comment on above: Performed By: #### L 100.9950, L503.6550, L503.6030 ####[facility] [address] [place], [address] TIBC 407 ug/dL Normal 250-450 [facility] Comment on above: Performed By: #### L 100.9950, L503.6550, L503.6030 ####[facility] [address] [place], [address] UIBC 390 ug/dL Normal 228-428 [facility] Comment on above: Performed By: #### L 100.9950, L503.6550, L503.6030 ####[facility] [address] [place], [address] No Panel InformationOrdered By: Ricki Griffin on 06-16-2025 Unsaturated Iron Binding Capacity 390 ug/dL 228-428 [facility] Retic Panelon 06-16-2025 IM RET FRACTION 20.50 High 3.00-15.90 [facility] Comment on above: Performed By: #### L 100.9950, L503.6550, L503.6030 ####[facility] [address] [place], [address] RET-HE 26.8 pg Low 30-35 [facility] Comment on above: Performed By: #### L 100.9950, L503.6550, L503.6030 ####[facility] [address] [place], [address] Retic Count 3.04 High 0.5-1.5 [facility] Comment on above: Performed By: #### L 100.9950, L503.6550, L503.6030 ####[facility] [address] [place], [place], [id number] Reticulocyte hemoglobin equi valent (RET-He) measurementOrdered By: Ricki Griffin on 06-16-2025 Hemoglobin (Reticulocytes) [Entitic mass] 26.8 pg Low 30-35 [facility] Reticulocytes Auto (Bld) [#/ Vol]Ordered By: Ricki Griffin on 06-16-2025 Reticulocytes/100 RBC (Bld) 3.04 % High 0.5-1.5 [facility] Serum or plasma ferritin cipriano surement (mass/volume)Ordered By: Ricki Griffin on 06-16-2025 Ferritin [Mass/Vol] 13 ng/mL Low 22-378 [facility] Serum or plasma iron saturat ion measurement (mass fraction)Ordered By: Ricki Griffin on 06-16-2025 Iron saturation [Mass fraction] 4.0 % Low 13-59 [facility] Anion gap in Serum or Plasma Ordered By: Ricki Griffin on 06-09-2025 Anion gap [Moles/Vol] 12 mmol/L 5-15 [facility] BUN/creatinine ratioOrdered By: Ricki Griffin on 06-09-2025 Urea nitrogen/Creatinine [Mass ratio] 22.4 mg/mg High 10-20 [facility] Bilirubin, totalOrdered By: Ricki Griffin on 06-09-2025 Bilirubin [Mass/Vol] 0.21 mg/dL 0.00-1.30 [facility] CBC-Complete Blood Cnt No Di ffon 06-09-2025 Erythrocyte distribution width (RBC) [Ratio] 13.2 % Normal 11.6-14.6 [facility] Comment on above: Performed By: #### L 100.0500, L500.4100, L500.4050, L506.1001, L501.9985, L502.0250 #### [facility] [address] [place], [address] Hematocrit (Bld) [Volume fraction] 30.3 % Low 37-47 [facility] Comment on above: Performed By: #### L 100.0500, L500.4100, L500.4050, L506.1001, L501.9985, L502.0250 #### [facility] [address] [place], [address] Hemoglobin (Bld) [Mass/Vol] 9.9 g/dL Low 12.0-15.0 [facility] Comment on above: Performed By: #### L 100.0500, L500.4100, L500.4050, L506.1001, L501.9985, L502.0250 #### [facility] [address] [place], [address] MCH (RBC) [Entitic mass] 30.4 pg Normal 27.0-32.0 [facility] Comment on above: Performed By: #### L 100.0500, L500.4100, L500.4050, L506.1001, L501.9985, L502.0250 #### [facility] [address] [place], [address] MCHC (RBC) [Mass/Vol] 32.7 g/dL Normal 32-36 [facility] Comment on above: Performed By: #### L 100.0500, L500.4100, L500.4050, L506.1001, L501.9985, L502.0250 #### [facility] [address] [place], [address] MCV (RBC) [Entitic vol] 92.9 fL Normal 81-99 [facility] Comment on above: Performed By: #### L 100.0500, L500.4100, L500.4050, L506.1001, L501.9985, L502.0250 #### [facility] [address] [place], [address] Platelet mean volume (Bld) [Entitic vol] 9.4 fL Normal 6.2-12.0 [facility] Comment on above: Performed By: #### L 100.0500, L500.4100, L500.4050, L506.1001, L501.9985, L502.0250 #### [facility] [address] [place], [address] Platelets (Bld) [#/Vol] 379 10*3/uL Normal 150-450 [facility] Comment on above: Performed By: #### L 100.0500, L500.4100, L500.4050, L506.1001, L501.9985, L502.0250 #### [facility] [address] [place], [address] RBC (Bld) [#/Vol] 3.26 10*6/uL Low 4.2-5.4 [facility] Comment on above: Performed By: #### L 100.0500, L500.4100, L500.4050, L506.1001, L501.9985, L502.0250 #### [facility] [address] [place], [address] RDW SD 44.4 fl High 35.1-43.9 [facility] Comment on above: Performed By: #### L 100.0500, L500.4100, L500.4050, L506.1001, L501.9985, L502.0250 #### [facility] [address] [place], [address] WBC (Bld) [#/Vol] 6.4 10*3/uL Normal 4.4-11.0 [facility] Comment on above: Performed By: #### L 100.0500, L500.4100, L500.4050, L506.1001, L501.9985, L502.0250 #### [facility] [address] [place], [address] Calculated very low density lipoprotein (VLDL) cholesterol measurementOrdered By: Ricki Griffin on 06-09-2025 Calculated very low density lipoprotein (VLDL) cholesterol measurement 28 mg/dL 5-40 [facility] Carbon dioxide, total [Moles /volume] in Central venous bloodOrdered By: Ricki Griffin on 06-09-2025 CO2 [Moles/Vol] 24.0 mmol/L 21.0-32.0 [facility] Chloride assayOrdered By: Tammy Griffin on 06-09-2025 Chloride [Moles/Vol] 102 mmol/L 98-108 [facility] Comprehensive Metabolic Prof ilon 06-09-2025 Albumin [Mass/Vol] 4.2 g/dL Normal 3.4-4.8 [facility] Comment on above: Performed By: #### L 100.0500, L500.4100, L500.4050, L506.1001, L501.9985, L502.0250 #### [facility] [address] [place], [place], [id number] Albumin/Globulin [Mass ratio] 1.7 {ratio} Normal 0.9-2.4 [facility] Comment on above: Performed By: #### L 100.0500, L500.4100, L500.4050, L506.1001, L501.9985, L502.0250 #### [facility] [address] [place], [place], [id number] ALK PHOS 69 U/L Normal 35-104 [facility] Comment on above: Performed By: #### L 100.0500, L500.4100, L500.4050, L506.1001, L501.9985, L502.0250 #### [facility] [address] [place], [place], [id number] ALT [Catalytic activity/Vol] 19 U/L Normal <=34 [facility] Comment on above: Performed By: #### L 100.0500, L500.4100, L500.4050, L506.1001, L501.9985, L502.0250 #### [facility] [address] [place], [address] AST [Catalytic activity/Vol] 18 U/L Normal <=31 [facility] Comment on above: Performed By: #### L 100.0500, L500.4100, L500.4050, L506.1001, L501.9985, L502.0250 #### [facility] [address] [place], [address] Bilirubin [Mass/Vol] 0.21 mg/dL Normal 0.00-1.30 [facility] Comment on above: Performed By: #### L 100.0500, L500.4100, L500.4050, L506.1001, L501.9985, L502.0250 #### [facility] [address] [place], [address] BUN/CRE 22.4 RATIO High 10-20 [facility] Comment on above: Performed By: #### L 100.0500, L500.4100, L500.4050, L506.1001, L501.9985, L502.0250 #### [facility] [address] [place], [address] Calcium [Mass/Vol] 9.3 mg/dL Normal 7.6-11.0 [facility] Comment on above: Performed By: #### L 100.0500, L500.4100, L500.4050, L506.1001, L501.9985, L502.0250 #### [facility] [address] [place], [address] Chloride [Moles/Vol] 102 mmol/L Normal 98-108 [facility] Comment on above: Performed By: #### L 100.0500, L500.4100, L500.4050, L506.1001, L501.9985, L502.0250 #### [facility] [address] [place], [address] CO2 [Moles/Vol] 24.0 mmol/L Normal 21.0-32.0 [facility] Comment on above: Performed By: #### L 100.0500, L500.4100, L500.4050, L506.1001, L501.9985, L502.0250 #### [facility] [address] [place], [address] Creatinine [Mass/Vol] 0.79 mg/dL Normal 0.70-1.20 [facility] Comment on above: Performed By: #### L 100.0500, L500.4100, L500.4050, L506.1001, L501.9985, L502.0250 #### [facility] [address] [place], [address] GAP 12 Normal 5-15 [facility] Comment on above: Performed By: #### L 100.0500, L500.4100, L500.4050, L506.1001, L501.9985, L502.0250 #### [facility] [address] [place], [address] GFR/1.73 sq M.predicted among non-blacks MDRD (S/P/Bld) [Vol rate/Area] 85 mL/min/{1.73_m2} Normal >60 [facility] Comment on above: Result Comment: mL/m in/1.73m2 CKD-EPI Creatinine Equation (2020) Performed By: #### L 100.0500, L500.4100, L500.4050, L506.1001, L501.9985, L502.0250 #### [facility] [address] [place], [address] Globulin (S) [Mass/Vol] 2.4 g/dL Normal 2.2-4.2 [facility] Comment on above: Performed By: #### L 100.0500, L500.4100, L500.4050, L506.1001, L501.9985, L502.0250 #### [facility] [address] [place], [address] Glucose [Mass/Vol] 110 mg/dL High 70-99 [facility] Comment on above: Performed By: #### L 100.0500, L500.4100, L500.4050, L506.1001, L501.9985, L502.0250 #### [facility] [address] [place], [address] Potassium [Moles/Vol] 4.0 mmol/L Normal 3.3-5.1 [facility] Comment on above: Performed By: #### L 100.0500, L500.4100, L500.4050, L506.1001, L501.9985, L502.0250 #### [facility] [address] [place], [address] Sodium [Moles/Vol] 138 mmol/L Normal 133-145 [facility] Comment on above: Performed By: #### L 100.0500, L500.4100, L500.4050, L506.1001, L501.9985, L502.0250 #### [facility] [address] [place], [address] T PROT 6.5 g/dL Normal 5.9-8.4 [facility] Comment on above: Performed By: #### L 100.0500, L500.4100, L500.4050, L506.1001, L501.9985, L502.0250 #### [facility] [address] [place], [address] Urea nitrogen [Mass/Vol] 18 mg/dL Normal 4-19 [facility] Comment on above: Performed By: #### L 100.0500, L500.4100, L500.4050, L506.1001, L501.9985, L502.0250 #### [facility] [address] [place], [place], [id number] Erythrocyte distribution wid th ratioOrdered By: Ricki Griffin on 06-09-2025 Erythrocyte distribution width (RBC) [Ratio] 13.2 % 11.6-14.6 [facility] Erythrocyte distribution wid th standard deviationOrdered By: Ricki Griffin on 06-09-2025 Erythrocyte distribution width (RBC) [Ratio] 44.4 fl High 35.1-43.9 [facility] Glomerular filtration rate ( GFR) estimation/1.73 sq m using serum, plasma, or whole bOrdered By: Ricki Griffin on 06-09-2025 GFR/1.73 sq M.predicted among non-blacks MDRD (S/P/Bld) [Vol rate/Area] 85 mL/min/{1.73_m2} >60 [facility] Comment on above: mL/min/1.73m2 CKD-EP I Creatinine Equation (2020) Hematocrit Auto (Bld) [Volum e fraction]Ordered By: Ricki Griffin on 06-09-2025 Hematocrit (Bld) [Volume fraction] 30.3 % Low 37-47 [facility] Hemoglobin A1con 06-09-2025 HbA1c (Bld) [Mass fraction] 5.1 % Normal <=5.6 [facility] [facility] Comment on above: Result Comment: Norm al < 5.7 % Prediabetic 5.7 - 6.4 % Diabetic >or= 6.5 % Please note range changes. Performed By: #### L 100.0500, L500.4100, L500.4050, L506.1001, L501.9985, L502.0250 #### [facility] [address] [place], [place], [id number] Hemoglobin A1c percentageOrd ered By: Ricki Griffin on 06-09-2025 HbA1c (Bld) [Mass fraction] 5.1 % <5.7 [facility] Comment on above: Normal < 5.7 % Predi abetic 5.7 - 6.4 % Diabetic >or= 6.5 % Please note range changes. Hemoglobin measurementOrdere d By: Ricki Griffin on 06-09-2025 Hemoglobin (Bld) [Mass/Vol] 9.9 g/dL Low 12.0-15.0 [facility] LDL calc ser/plasOrdered By: Ricki Griffin on 06-09-2025 Cholesterol in LDL [Mass/Vol] 90 mg/dL [facility] Comment on above: Tfaauqnhut=942-284 m g/dL & Higher Uvkj=064 mg/dL or greaterFriedwald Equation for LDL-C Laboratory - Chemistry and C hemistry - challengeOrdered By: Ricki Griffin on 06-09-2025 AST [Catalytic activity/Vol] 18 U/L <32 [facility] Lipid Profileon 06-09-2025 CHOL:HDL 3.94 Normal [facility] Comment on above: Performed By: #### L 100.0500, L500.4100, L500.4050, L506.1001, L501.9985, L502.0250 #### [facility] [address] [place], [address] Cholesterol [Mass/Vol] 159 mg/dL Normal <=200 [facility] Comment on above: Result Comment: Chol esterol level, Desirable <200 mg/dL Borderline high cholesterol 200-239 mg/dL High cholesterol >=240 mg/dL Recommendations of the NCEP Adult Treatment Panel for the following risk-cutoff thresholds for the [place] population. Performed By: #### L 100.0500, L500.4100, L500.4050, L506.1001, L501.9985, L502.0250 #### [facility] [address] [place], [address] Cholesterol in HDL [Mass/Vol] 40 mg/dL Normal [facility] Comment on above: Result Comment: Alina onal Cholesterol Education Program (NCEP) guidelines: <40 mg/dL: Low HDL-cholesterol (major risk factor for CHD) >= 60 mg/dL: High HDL-cholesterol (negative risk factor for CHD) HDL-cholesterol is affected by a number of factors, e.g. smoking, exercise, hormones, sex and age. Performed By: #### L 100.0500, L500.4100, L500.4050, L506.1001, L501.9985, L502.0250 #### [facility] [address] [place], [address] Cholesterol in LDL [Mass/Vol] 90 mg/dL Normal [facility] Comment on above: Result Comment: Bord qizojn=063-851 mg/dL Higher Cxvg=157 mg/dL or greater Friedwald Equation for LDL-C Performed By: #### L 100.0500, L500.4100, L500.4050, L506.1001, L501.9985, L502.0250 #### [facility] [address] [place], [address] Cholesterol in VLDL [Mass/Vol] 28 mg/dL Normal 5-40 [facility] Comment on above: Performed By: #### L 100.0500, L500.4100, L500.4050, L506.1001, L501.9985, L502.0250 #### [facility] [address] [place], [address] Triglyceride [Mass/Vol] 142 mg/dL Normal [facility] Comment on above: Result Comment: The drugs N-Acetylcysteine and Metamizole may falsely depress this assay. Normal range: <150 mg/dL Borderline High: 150-199 mg/dL High: 200-499 mg/dL Very High: >500 mg/dL Performed By: #### L 100.0500, L500.4100, L500.4050, L506.1001, L501.9985, L502.0250 #### [facility] [address] [place], [address] MCV (mean corpuscular volume ) determinationOrdered By: Ricki Griffin on 06-09-2025 MCV (RBC) [Entitic vol] 92.9 fL 81-99 [facility] Mean corpuscular hemoglobin (MCH) determinationOrdered By: Ricki Griffin on 06-09-2025 MCH (RBC) [Entitic mass] 30.4 pg 27.0-32.0 [facility] Mean corpuscular hemoglobin concentration (MCHC) determinationOrdered By: Ricki Griffin on 06-09-2025 MCHC (RBC) [Mass/Vol] 32.7 g/dL 32-36 [facility] Mean platelet volume determi nationOrdered By: Ricki Griffin on 06-09-2025 Platelet mean volume (Bld) [Entitic vol] 9.4 fL 6.2-12.0 [facility] Microalb:Creat Ratio,Random URon 06-09-2025 MALB:CREAT UNABLE TO CALCULATE Normal <30 mg/g CRE [facility] Comment on above: Performed By: #### L 100.0500, L500.4100, L500.4050, L506.1001, L501.9985, L502.0250 #### [facility] [address] [place], [address] MICROALBUMIN,UR < 12.0 Normal <20 mg/L [facility] Comment on above: Performed By: #### L 100.0500, L500.4100, L500.4050, L506.1001, L501.9985, L502.0250 #### [facility] [address] [place], [address] Microalbumin/creat ratio urO rdered By: Ricki Griffin on 06-09-2025 Urine microalbumin/creatinine ratio measurement UNABLE TO CALCULATE mg/g CRE <30 [facility] Platelet countOrdered By: Tammy Griffin on 06-09-2025 Platelets (Bld) [#/Vol] 379 10*3/uL 150-450 [facility] Potassium measurement (mass/ volume)Ordered By: Ricki Griffin on 06-09-2025 Potassium (Unsp spec) [Mass/Vol] 4.0 mmol/L 3.3-5.1 [facility] RBC Auto (Bld) [#/Vol]Ordere d By: Ricki Griffin on 06-09-2025 RBC (Bld) [#/Vol] 3.26 10*6/uL Low 4.2-5.4 [facility] Random urine creatinine virgie urement (mass/volume)Ordered By: Ricki Griffin on 06-09-2025 Creatinine Unsp time (U) [Mass/Vol] 173.00 mg/dL 28.00-217.0 0 [facility] Screening total cholesterol/ high density lipoprotein (HDL) cholesterol ratioOrdered By: Ricki Griffin on 06-09-2025 Cholesterol.total/Choleste rol in HDL [Mass ratio] 3.94 {ratio} [facility] Serum creatinine measurement (mass/volume)Ordered By: Ricki Griffin on 06-09-2025 Creatinine [Mass/Vol] 0.79 mg/dL 0.70-1.20 [facility] Serum globulin measurementOr dered By: Ricki Griffin on 06-09-2025 Globulin (S) [Mass/Vol] 2.4 g/dL 2.2-4.2 [facility] Serum glucose measurement (m ass/volume)Ordered By: Ricki Griffin on 06-09-2025 Glucose [Mass/Vol] 110 mg/dL High 70-99 [facility] Serum or plasma alanine herrera otransferase (ALT) measurementOrdered By: Ricki Griffin on 06-09-2025 ALT [Catalytic activity/Vol] 19 U/L <35 [facility] Serum or plasma albumin virgie urement (mass/volume)Ordered By: Ricki Griffin on 06-09-2025 Albumin [Mass/Vol] 4.2 g/dL 3.4-4.8 [facility] Serum or plasma albumin/glob ulin mass ratioOrdered By: Ricki Griffin on 06-09-2025 Albumin/Globulin [Mass ratio] 1.7 {ratio} 0.9-2.4 [facility] Serum or plasma alkaline sherri sphatase measurementOrdered By: Ricki Griffin on 06-09-2025 ALP [Catalytic activity/Vol] 69 U/L 35-104 [facility] Serum or plasma calcium virgie urement (mass/volume)Ordered By: Ricki Griffin on 06-09-2025 Calcium [Mass/Vol] 9.3 mg/dL 7.6-11.0 [facility] Serum or plasma cholesterol in HDL measurement (mass/volume)Ordered By: Ricki Griffin on 06-09-2025 Cholesterol in HDL [Mass/Vol] 40 mg/dL >40 [facility] Comment on above: National Cholesterol Education Program (NCEP) guidelines:<40 mg/dL: Low HDL-cholesterol (major risk factor for CHD)>= 60 mg/dL: High HDL-cholesterol (negative risk factor for CHD)HDL-cholesterol is affected by a number of factors, e.g. smoking, exercise, hormones, sex and age. Serum or plasma cholesterol measurement (mass/volume)Ordered By: Ricki Griffin on 06-09-2025 Cholesterol [Mass/Vol] 159 mg/dL <201 [facility] Comment on above: Cholesterol level, D esirable <200 mg/dLBorderline high cholesterol 200-239 mg/dLHigh cholesterol >=240 mg/dLRecommendations of the NCEP Adult Treatment Panel for the following risk-cutoff thresholds for the [place] population. Serum or plasma urea nitroge n measurement (mass/volume)Ordered By: Ricki Griffin on 06-09-2025 Urea nitrogen [Mass/Vol] 18 mg/dL 4-19 [facility] Sodium levelOrdered By: Froylan Griffin on 06-09-2025 Sodium [Moles/Vol] 138 mmol/L 133-145 [facility] Total proteinOrdered By: Godfrey Griffin on 06-09-2025 Protein [Mass/Vol] 6.5 g/dL 5.9-8.4 [facility] Triglycerides measurementOrd ered By: Ricki Griffin on 06-09-2025 Triglyceride [Mass/Vol] 142 mg/dL <199 [facility] Comment on above: The drugs N-Acetylcy steine and Metamizole may falsely depress this assay. Normal range: <150 mg/dLBorderline High: 150-199 mg/dLHigh: 200-499 mg/dLVery High: >500 mg/dL Urine albumin measurement wi detection limit of 20 mg/L or less (mass/volume)Ordered By: Ricki Griffin on 06-09-2025 Albumin DL <= 20 mg/L (U) [Mass/Vol] < 12.0 mg/L <20 mg/L [facility] Vitamin D,25 Hydroxyon 06-09 Vitamin D 25-OH 56.6 ng/mL Normal 30-100 [facility] Comment on above: Result Comment: Stephanie min D Status Deficiency: <20 ng/mL (50nmol/L) Insufficiency: 20-30 ng/mL (50-75 nmol/L) Sufficiency: 30-100 ng/mL (75-250 nmol/L) Toxicity: >100 ng/mL (>250 nmol/L) Performed By: #### L 100.0500, L500.4100, L500.4050, L506.1001, L501.9985, L502.0250 #### [facility] [address] [place], [address] White blood cell (WBC) count Ordered By: Ricki Griffin on 06-09-2025 WBC (Bld) [#/Vol] 6.4 10*3/uL 4.4-11.0 [facility] XR UPPER GIon 05-13-2025 XR UPPER [...] 11:48:01 AM Ordering Provider: RICKI GRIFFIN Normal [facility] H. PYLORI STOOL AGon 025 H PYLORI STL AG Negative Normal Negative [facility] Comment on above: Result Comment: Perf ormed at: [facility] [place] [id number] [employer] Supervisor: James Thompson PhD, Phone: [phone] Performed By: #### L 3100.1950 #### [facility] [address] [place], [place], [id number] Stool Helicobacter pylori an tigen detection by immunoassayOrdered By: Ricki Griffin on 05-01-2025 H. pylori Ag IA Ql (Stl) Negative Negative [facility] Comment on above: Performed at: [facility] [place] [id number] Director: James Thompson PhD, Phone: [phone] Anion gap in Serum or Plasma Ordered By: Ricki Griffin on 04-30-2025 Anion gap [Moles/Vol] 13 mmol/L 5-15 [facility] BUN/creatinine ratioOrdered By: Ricki Griffin on 04-30-2025 Urea nitrogen/Creatinine [Mass ratio] 26.3 mg/mg High 10-20 [facility] Bilirubin, totalOrdered By: Ricki Griffin on 04-30-2025 Bilirubin [Mass/Vol] 0.36 mg/dL 0.00-1.30 [facility] CBC-Complete Blood Cnt No Di ffon 04-30-2025 Erythrocyte distribution width (RBC) [Ratio] 13.4 % Normal 11.6-14.6 [facility] Comment on above: Performed By: #### L 100.0500, L500.4050, L501.2450 ####[facility] [address] [place], [address] Hematocrit (Bld) [Volume fraction] 37.4 % Normal 37-47 [facility] Comment on above: Performed By: #### L 100.0500, L500.4050, L501.2450 ####[facility] [address] [place], [address] Hemoglobin (Bld) [Mass/Vol] 12.3 g/dL Normal 12.0-15.0 [facility] Comment on above: Performed By: #### L 100.0500, L500.4050, L501.2450 ####[facility] [address] [place], [address] MCH (RBC) [Entitic mass] 31.1 pg Normal 27.0-32.0 [facility] Comment on above: Performed By: #### L 100.0500, L500.4050, L501.2450 ####[facility] [address] [place], [address] MCHC (RBC) [Mass/Vol] 32.9 g/dL Normal 32-36 [facility] Comment on above: Performed By: #### L 100.0500, L500.4050, L501.2450 ####[facility] [address] [place], [address] MCV (RBC) [Entitic vol] 94.4 fL Normal 81-99 [facility] Comment on above: Performed By: #### L 100.0500, L500.4050, L501.2450 ####[facility] [address] [place], [address] Platelet mean volume (Bld) [Entitic vol] 9.4 fL Normal 6.2-12.0 [facility] Comment on above: Performed By: #### L 100.0500, L500.4050, L501.2450 ####[facility] [address] [place], [address] Platelets (Bld) [#/Vol] 373 10*3/uL Normal 150-450 [facility] Comment on above: Performed By: #### L 100.0500, L500.4050, L501.2450 ####[facility] [address] [place], [address] RBC (Bld) [#/Vol] 3.96 10*6/uL Low 4.2-5.4 [facility] Comment on above: Performed By: #### L 100.0500, L500.4050, L501.2450 ####[facility] [address] [place], [address] RDW SD 46.9 fl High 35.1-43.9 [facility] Comment on above: Performed By: #### L 100.0500, L500.4050, L501.2450 ####[facility] [address] [place], [address] WBC (Bld) [#/Vol] 7.2 10*3/uL Normal 4.4-11.0 [facility] Comment on above: Performed By: #### L 100.0500, L500.4050, L501.2450 ####[facility] [address] [place], [address] Carbon dioxide, total [Moles /volume] in Central venous bloodOrdered By: Ricki Griffin on 04-30-2025 CO2 [Moles/Vol] 25.4 mmol/L 21.0-32.0 [facility] Chloride assayOrdered By: Tammy Griffin on 04-30-2025 Chloride [Moles/Vol] 99 mmol/L 98-108 [facility] Comprehensive Metabolic Prof ilon 04-30-2025 Albumin [Mass/Vol] 4.5 g/dL Normal 3.4-4.8 [facility] Comment on above: Performed By: #### L 100.0500, L500.4050, L501.2450 ####[facility] [address] [place], [address] Albumin/Globulin [Mass ratio] 1.6 {ratio} Normal 0.9-2.4 [facility] Comment on above: Performed By: #### L 100.0500, L500.4050, L501.2450 ####[facility] [address] [place], [address] ALK PHOS 77 U/L Normal 35-104 [facility] Comment on above: Performed By: #### L 100.0500, L500.4050, L501.2450 ####[facility] [address] [place], [address] ALT [Catalytic activity/Vol] 23 U/L Normal <=34 [facility] Comment on above: Performed By: #### L 100.0500, L500.4050, L501.2450 ####[facility] [address] [place], [address] AST [Catalytic activity/Vol] 21 U/L Normal <=31 [facility] Comment on above: Performed By: #### L 100.0500, L500.4050, L501.2450 ####[facility] [address] [place], [address] Bilirubin [Mass/Vol] 0.36 mg/dL Normal 0.00-1.30 [facility] Comment on above: Performed By: #### L 100.0500, L500.4050, L501.2450 ####[facility] [address] [place], [address] BUN/CRE 26.3 RATIO High 10-20 [facility] Comment on above: Performed By: #### L 100.0500, L500.4050, L501.2450 ####[facility] [address] [place], [address] Calcium [Mass/Vol] 9.9 mg/dL Normal 7.6-11.0 [facility] Comment on above: Performed By: #### L 100.0500, L500.4050, L501.2450 ####[facility] [address] [place], [address] Chloride [Moles/Vol] 99 mmol/L Normal 98-108 [facility] Comment on above: Performed By: #### L 100.0500, L500.4050, L501.2450 ####[facility] [address] [place], [address] CO2 [Moles/Vol] 25.4 mmol/L Normal 21.0-32.0 [facility] Comment on above: Performed By: #### L 100.0500, L500.4050, L501.2450 ####[facility] [address] [place], [address] Creatinine [Mass/Vol] 0.96 mg/dL Normal 0.70-1.20 [facility] Comment on above: Performed By: #### L 100.0500, L500.4050, L501.2450 ####[facility] [address] [place], [address] GAP 13 Normal 5-15 [facility] Comment on above: Performed By: #### L 100.0500, L500.4050, L501.2450 ####[facility] [address] [place], [address] GFR/1.73 sq M.predicted among non-blacks MDRD (S/P/Bld) [Vol rate/Area] 67 mL/min/{1.73_m2} Normal >60 [facility] Comment on above: Result Comment: mL/m in/1.73m2 CKD-EPI Creatinine Equation (2020) Performed By: #### L 100.0500, L500.4050, L501.2450 ####[facility] [address] [place], [address] Globulin (S) [Mass/Vol] 2.8 g/dL Normal 2.2-4.2 [facility] Comment on above: Performed By: #### L 100.0500, L500.4050, L501.2450 ####[facility] [address] [place], [address] Glucose [Mass/Vol] 109 mg/dL High 70-99 [facility] Comment on above: Performed By: #### L 100.0500, L500.4050, L501.2450 ####[facility] [address] [place], [address] Potassium [Moles/Vol] 4.0 mmol/L Normal 3.3-5.1 [facility] Comment on above: Performed By: #### L 100.0500, L500.4050, L501.2450 ####[facility] [address] [place], [address] Sodium [Moles/Vol] 138 mmol/L Normal 133-145 [facility] Comment on above: Performed By: #### L 100.0500, L500.4050, L501.2450 ####[facility] [address] [place], [address] T PROT 7.2 g/dL Normal 5.9-8.4 [facility] Comment on above: Performed By: #### L 100.0500, L500.4050, L501.2450 ####[facility] [address] [place], [address] Urea nitrogen [Mass/Vol] 25 mg/dL High 4-19 [facility] Comment on above: Performed By: #### L 100.0500, L500.4050, L501.2450 ####[facility] [address] [place], [place], [address] Erythrocyte distribution wid th ratioOrdered By: Ricki Griffin on 04-30-2025 Erythrocyte distribution width (RBC) [Ratio] 13.4 % 11.6-14.6 [facility] Erythrocyte distribution wid th standard deviationOrdered By: Ricki Griffin on 04-30-2025 Erythrocyte distribution width (RBC) [Ratio] 46.9 fl High 35.1-43.9 [facility] Glomerular filtration rate ( GFR) estimation/1.73 sq m using serum, plasma, or whole bOrdered By: Ricki Griffin on 04-30-2025 GFR/1.73 sq M.predicted among non-blacks MDRD (S/P/Bld) [Vol rate/Area] 67 mL/min/{1.73_m2} >60 [facility] Comment on above: mL/min/1.73m2 CKD-EP I Creatinine Equation (2020) Hematocrit Auto (Bld) [Volum e fraction]Ordered By: Ricki Griffin on 04-30-2025 Hematocrit (Bld) [Volume fraction] 37.4 % 37-47 [facility] Hemoglobin measurementOrdere d By: Ricki Griffin on 04-30-2025 Hemoglobin (Bld) [Mass/Vol] 12.3 g/dL 12.0-15.0 [facility] Laboratory - Chemistry and C hemistry - challengeOrdered By: Ricki Griffin on 04-30-2025 AST [Catalytic activity/Vol] 21 U/L <32 [facility] Lipaseon 04-30-2025 Lipase [Catalytic activity/Vol] 29 U/L Normal 13-75 [facility] Comment on above: Result Comment: Magui hurst note: LIPASE revised reference range effective 23. New Lipase methodology. Expected to produce lower values than the previous assay method. NEW Reference Range: 13 - 75 U/L Performed By: #### L 100.0500, L500.4050, L501.2450 ####[facility] [address] [place], [place], [address] Lipase measurementOrdered By : Ricki Griffin on 04-30-2025 Lipase [Catalytic activity/Vol] 29 U/L 13-75 [facility] Comment on above: Please note:LIPASE r evised reference range effective 23. New Lipase methodology. Expected to produce lower values than the previous assay method. NEW Reference Range: 13 - 75 U/L MCV (mean corpuscular volume ) determinationOrdered By: Ricki Griffin on 04-30-2025 MCV (RBC) [Entitic vol] 94.4 fL 81-99 [facility] Mean corpuscular hemoglobin (MCH) determinationOrdered By: Ricki Griffin on 04-30-2025 MCH (RBC) [Entitic mass] 31.1 pg 27.0-32.0 [facility] Mean corpuscular hemoglobin concentration (MCHC) determinationOrdered By: Ricki Griffin on 04-30-2025 MCHC (RBC) [Mass/Vol] 32.9 g/dL 32-36 [facility] Mean platelet volume determi nationOrdered By: Ricki Griffin on 04-30-2025 Platelet mean volume (Bld) [Entitic vol] 9.4 fL 6.2-12.0 [facility] Platelet countOrdered By: Tammy Griffin on 04-30-2025 Platelets (Bld) [#/Vol] 373 10*3/uL 150-450 [facility] Potassium measurement (mass/ volume)Ordered By: Ricki Griffin on 04-30-2025 Potassium (Unsp spec) [Mass/Vol] 4.0 mmol/L 3.3-5.1 [facility] RBC Auto (Bld) [#/Vol]Ordere d By: Ricki Griffin on 04-30-2025 RBC (Bld) [#/Vol] 3.96 10*6/uL Low 4.2-5.4 [facility] Serum creatinine measurement (mass/volume)Ordered By: Ricki Griffin on 04-30-2025 Creatinine [Mass/Vol] 0.96 mg/dL 0.70-1.20 [facility] Serum globulin measurementOr dered By: Ricki Griffin on 04-30-2025 Globulin (S) [Mass/Vol] 2.8 g/dL 2.2-4.2 [facility] Serum glucose measurement (m ass/volume)Ordered By: Ricki Griffin on 04-30-2025 Glucose [Mass/Vol] 109 mg/dL High 70-99 [facility] Serum or plasma alanine herrera otransferase (ALT) measurementOrdered By: Ricki Griffin on 04-30-2025 ALT [Catalytic activity/Vol] 23 U/L <35 [facility] Serum or plasma albumin virgie urement (mass/volume)Ordered By: Ricki Griffin on 04-30-2025 Albumin [Mass/Vol] 4.5 g/dL 3.4-4.8 [facility] Serum or plasma albumin/glob ulin mass ratioOrdered By: Ricki Griffin on 04-30-2025 Albumin/Globulin [Mass ratio] 1.6 {ratio} 0.9-2.4 [facility] Serum or plasma alkaline sherri sphatase measurementOrdered By: Ricki Griffin on 04-30-2025 ALP [Catalytic activity/Vol] 77 U/L 35-104 [facility] Serum or plasma calcium virgie urement (mass/volume)Ordered By: Ricki Griffin on 04-30-2025 Calcium [Mass/Vol] 9.9 mg/dL 7.6-11.0 [facility] Serum or plasma urea nitroge n measurement (mass/volume)Ordered By: Ricki Griffin on 04-30-2025 Urea nitrogen [Mass/Vol] 25 mg/dL High 4-19 [facility] Sodium levelOrdered By: Froylan Griffin on 04-30-2025 Sodium [Moles/Vol] 138 mmol/L 133-145 [facility] Total proteinOrdered By: Godfrey Griffin on 04-30-2025 Protein [Mass/Vol] 7.2 g/dL 5.9-8.4 [facility] White blood cell (WBC) count Ordered By: Ricki Griffin on 04-30-2025 WBC (Bld) [#/Vol] 7.2 10*3/uL 4.4-11.0 [facility] Echo, Limited Studyon 2024 Echo, Limited Study [facility] [address] [place] [address] Echo, Limited Study 03/29/25 1258 MR#: [id number] Acct: [id number] Name: VISHAL GEORGE Rep #: [id number] : 1960 65 From: Jose Antonio Reeves MD Attending Dr: Austen Castro NP-C Status: REG CLI Ordering Dr: Austen Castro NP REGISTER CLERK-C Date: 03/29/25 Location: [facility] Sex: F C Admitted: Reason For [...] Date Dictated: 03/29/25 1258 Date Transcribed: 03/29/251903 Audio Visual Production Specialist: Juanpablo [facility] Limited echocardiogram repor tOrdered By: Jose Antonio Reeves on 03-29-2025 Study report [facility] [address] [place] [address] Echo, Limited Study 03/29/25 1258 MR#: [id number] Acct: [id number] Name: VISHAL GEORGE Rep #:[id number] : 1960 65 From: Jose Antonio Carlson Attending Dr: PHONG Olivares Sta tus: REG CLI Ordering Dr: Austen Castro NP REGISTER CLERK-C Date: 03/29/25 Location: [facility] Sex: F C Admitted: Reason For [...] Date _ Jose Antonio Reeves MD CC: REGISTER CLERKHenrry Castro; PHONG Griffin ~ Date Dictated: 03/29/25 1258 Date Transcribed: 03/29/251903 Audio Visual Production Specialist: Signed [facility] Work Phone: Absolute lymphocyte countOrd ered By: Jose Antonio Reeves on 03-12-2025 Lymphocytes Auto (Unsp spec) [#/Vol] 1.63 10*3/uL 0.83-4.51 [facility] Absolute neutrophil countOrd ered By: Jose Antonio Reeves on 03-12-2025 Neutrophils (Bld) [#/Vol] 4.5 10*3/uL 2.0-7.7 [facility] Anion gap in Serum or Plasma Ordered By: Jose Antonio Leandro on 03-12-2025 Anion gap [Moles/Vol] 12 mmol/L 5-15 [facility] Automated lymphocyte count a s percentage of total leukocytesOrdered By: Jose Antonio Reeves on 03-12-2025 Lymphocytes/100 WBC Auto (Unsp spec) 22.6 % 19-41 [facility] BUN/creatinine ratioOrdered By: Jose Antonio Reeves on 03-12-2025 Urea nitrogen/Creatinine [Mass ratio] 23.1 mg/mg High 10- [facility] Basic Metabolic Profile (BMP )on 03-12-2025 BUN/CRE 23.1 RATIO High 10- [facility] Comment on above: Performed By: #### L 501.9520, L503.7505, L500.2500, L501.9310, L100.0100 ####[facility] [address] [place], [address] Calcium [Mass/Vol] 10.0 mg/dL Normal 7.6-11.0 [facility] Comment on above: Performed By: #### L 501.9520, L503.7505, L500.2500, L501.9310, L100.0100 ####[facility] [address] [place], [address] Chloride [Moles/Vol] 100 mmol/L Normal 98-108 [facility] Comment on above: Performed By: #### L 501.9520, L503.7505, L500.2500, L501.9310, L100.0100 ####[facility] [address] [place], [address] CO2 [Moles/Vol] 24.9 mmol/L Normal 21.0-32.0 [facility] Comment on above: Performed By: #### L 501.9520, L503.7505, L500.2500, L501.9310, L100.0100 ####[facility] [address] [place], [address] Creatinine [Mass/Vol] 0.78 mg/dL Normal 0.70-1.20 [facility] Comment on above: Performed By: #### L 501.9520, L503.7505, L500.2500, L501.9310, L100.0100 ####[facility] [address] [place], [address] GAP 12 Normal 5-15 [facility] Comment on above: Performed By: #### L 501.9520, L503.7505, L500.2500, L501.9310, L100.0100 ####[facility] [address] [place], [address] GFR/1.73 sq M.predicted among non-blacks MDRD (S/P/Bld) [Vol rate/Area] 86 mL/min/{1.73_m2} Normal >60 [facility] Comment on above: Result Comment: mL/m in/1.73m2 CKD-EPI Creatinine Equation (2020) Performed By: #### L 501.9520, L503.7505, L500.2500, L501.9310, L100.0100 ####[facility] [address] [place], [address] Glucose [Mass/Vol] 90 mg/dL Normal 70-99 [facility] Comment on above: Performed By: #### L 501.9520, L503.7505, L500.2500, L501.9310, L100.0100 ####[facility] [address] [place], [address] Potassium [Moles/Vol] 4.2 mmol/L Normal 3.3-5.1 [facility] Comment on above: Performed By: #### L 501.9520, L503.7505, L500.2500, L501.9310, L100.0100 ####[facility] [address] [place], [address] Sodium [Moles/Vol] 137 mmol/L Normal 133-145 [facility] Comment on above: Performed By: #### L 501.9520, L503.7505, L500.2500, L501.9310, L100.0100 ####[facility] [address] [place], [address] Urea nitrogen [Mass/Vol] 18 mg/dL Normal 4-19 [facility] Comment on above: Performed By: #### L 501.9520, L503.7505, L500.2500, L501.9310, L100.0100 ####[facility] [address] [place], [address] Basophil percentageOrdered B y: Jose Antonio Leandro on 03-12-2025 Basophils/100 WBC (Bld) 1.3 % High 0-1 [facility] CBC W/Diff, Automatedon 02-13 Absolute Lymph 1.63 X10 3/uL Normal 0.83-4.51 [facility] Comment on above: Performed By: #### L 501.9520, L503.7505, L500.2500, L501.9310, L100.0100 ####[facility] [address] [place], [address] Absolute Neut 4.5 X10 3/uL Normal 2.0-7.7 [facility] Comment on above: Performed By: #### L 501.9520, L503.7505, L500.2500, L501.9310, L100.0100 ####[facility] [address] [place], [address] Basophils/100 WBC (Bld) 1.3 % High 0-1 [facility] Comment on above: Performed By: #### L 501.9520, L503.7505, L500.2500, L501.9310, L100.0100 ####[facility] [address] [place], [address] Eosinophils/100 WBC (Bld) 3.8 % Normal 0-5 [facility] Comment on above: Performed By: #### L 501.9520, L503.7505, L500.2500, L501.9310, L100.0100 ####[facility] [address] [place], [address] Erythrocyte distribution width (RBC) [Ratio] 13.3 % Normal 11.6-14.6 [facility] Comment on above: Performed By: #### L 501.9520, L503.7505, L500.2500, L501.9310, L100.0100 ####[facility] [address] [place], [address] Hematocrit (Bld) [Volume fraction] 41.6 % Normal 37-47 [facility] Comment on above: Performed By: #### L 501.9520, L503.7505, L500.2500, L501.9310, L100.0100 ####[facility] [address] [place], [address] Hemoglobin (Bld) [Mass/Vol] 13.6 g/dL Normal 12.0-15.0 [facility] Comment on above: Performed By: #### L 501.9520, L503.7505, L500.2500, L501.9310, L100.0100 ####[facility] [address] [place], [address] IG% 0.400 Normal 0.0-0.9 [facility] Comment on above: Result Comment: IG% - Immature Granulocytes (promyelocytes, myelocytes and metamyelocytes) > 1% indicates that a LEFT SHIFT is Present. Performed By: #### L 501.9520, L503.7505, L500.2500, L501.9310, L100.0100 ####[facility] [address] [place], [address] Lymphocytes/100 WBC (Bld) 22.6 % Normal 19-41 [facility] Comment on above: Performed By: #### L 501.9520, L503.7505, L500.2500, L501.9310, L100.0100 ####[facility] [address] [place], [address] MCH (RBC) [Entitic mass] 30.1 pg Normal 27.0-32.0 [facility] Comment on above: Performed By: #### L 501.9520, L503.7505, L500.2500, L501.9310, L100.0100 ####[facility] [address] [place], [address] MCHC (RBC) [Mass/Vol] 32.7 g/dL Normal 32-36 [facility] Comment on above: Performed By: #### L 501.9520, L503.7505, L500.2500, L501.9310, L100.0100 ####[facility] [address] [place], [address] MCV (RBC) [Entitic vol] 92.0 fL Normal 81-99 [facility] Comment on above: Performed By: #### L 501.9520, L503.7505, L500.2500, L501.9310, L100.0100 ####[facility] [address] [place], [address] Monocytes/100 WBC (Bld) 10.0 % Normal 0-10 [facility] Comment on above: Performed By: #### L 501.9520, L503.7505, L500.2500, L501.9310, L100.0100 ####[facility] [address] [place], [address] Neutrophils/100 WBC (Bld) 61.9 % Normal 47-70 [facility] Comment on above: Performed By: #### L 501.9520, L503.7505, L500.2500, L501.9310, L100.0100 ####[facility] [address] [place], [address] Nucleated RBC (Bld) [#/Vol] 0 10*3/uL Normal 0-5 [facility] Comment on above: Performed By: #### L 501.9520, L503.7505, L500.2500, L501.9310, L100.0100 ####[facility] [address] [place], [address] Platelet mean volume (Bld) [Entitic vol] 9.5 fL Normal 6.2-12.0 [facility] Comment on above: Performed By: #### L 501.9520, L503.7505, L500.2500, L501.9310, L100.0100 ####[facility] [address] [place], [address] Platelets (Bld) [#/Vol] 424 10*3/uL Normal 150-450 [facility] Comment on above: Performed By: #### L 501.9520, L503.7505, L500.2500, L501.9310, L100.0100 ####[facility] [address] [place], [address] RBC (Bld) [#/Vol] 4.52 10*6/uL Normal 4.2-5.4 [facility] Comment on above: Performed By: #### L 501.9520, L503.7505, L500.2500, L501.9310, L100.0100 ####[facility] [address] [place], [address] RDW SD 45.1 fl High 35.1-43.9 [facility] Comment on above: Performed By: #### L 501.9520, L503.7505, L500.2500, L501.9310, L100.0100 ####[facility] [address] [place], [address] WBC (Bld) [#/Vol] 7.2 10*3/uL Normal 4.4-11.0 [facility] Comment on above: Performed By: #### L 501.9520, L503.7505, L500.2500, L501.9310, L100.0100 ####[facility] [address] [place], [address] Carbon dioxide, total [Moles /volume] in Central venous bloodOrdered By: [place] Leandro on 03-12-2025 CO2 [Moles/Vol] 24.9 mmol/L 21.0-32.0 [facility] Chloride assayOrdered By: Cy ril Leandro on 03-12-2025 Chloride [Moles/Vol] 100 mmol/L 98-108 [facility] Eosinophil percentageOrdered By: Jose Antonio Leandro on 03-12-2025 Eosinophils/100 WBC (Bld) 3.8 % 0-5 [facility] Erythrocyte distribution wid th ratioOrdered By: Jose Antonio Leandro on 03-12-2025 Erythrocyte distribution width (RBC) [Ratio] 13.3 % 11.6-14.6 [facility] Erythrocyte distribution wid th standard deviationOrdered By: [place] Leandro on 03-12-2025 Erythrocyte distribution width (RBC) [Ratio] 45.1 fl High 35.1-43.9 [facility] Glomerular filtration rate ( GFR) estimation/1.73 sq m using serum, plasma, or whole bOrdered By: Jose Antonio Reeves on 03-12-2025 GFR/1.73 sq M.predicted among non-blacks MDRD (S/P/Bld) [Vol rate/Area] 86 mL/min/{1.73_m2} >60 [facility] Comment on above: mL/min/1.73m2 CKD-EP I Creatinine Equation (2020) Hematocrit Auto (Bld) [Volum e fraction]Ordered By: Jose Antonio Reeves on 03-12-2025 Hematocrit (Bld) [Volume fraction] 41.6 % 37-47 [facility] Hemoglobin measurementOrdere d By: Jose Antonio Reeves on 03-12-2025 Hemoglobin (Bld) [Mass/Vol] 13.6 g/dL 12.0-15.0 [facility] Immature granulocytes/100 WB C Auto (Bld)Ordered By: Jose Antonio Reeves on 03-12-2025 Immature granulocytes/100 WBC (Bld) 0.400 % 0.0-0.9 [facility] Comment on above: IG% - Immature Granu locytes (promyelocytes, myelocytes and metamyelocytes) > 1% indicates that a LEFT SHIFT is Present. L503.7505on 03-12-2025 Natriuretic peptide B (Bld) [Mass/Vol] 916 pg/mL High <=900 [facility] Comment on above: Result Comment: Hear t Failure Unlikely: < 300 pg/mL Heart Failure Likely < 50 Years: > 450 pg/mL 50-75 Years: > 900 pg/mL >75 Years: > 1800 pg/mL Performed By: #### L 501.9520, L503.7505, L500.2500, L501.9310, L100.0100 ####[facility] [address] [place], [address] MCV (mean corpuscular volume ) determinationOrdered By: Jose Antonio Reeves on 03-12-2025 MCV (RBC) [Entitic vol] 92.0 fL 81-99 [facility] Mean corpuscular hemoglobin (MCH) determinationOrdered By: Jose Antonio Reeves on 03-12-2025 MCH (RBC) [Entitic mass] 30.1 pg 27.0-32.0 [facility] Mean corpuscular hemoglobin concentration (MCHC) determinationOrdered By: [place] Leandro on 03-12-2025 MCHC (RBC) [Mass/Vol] 32.7 g/dL 32-36 [facility] Mean platelet volume determi nationOrdered By: [place] Leandro on 03-12-2025 Platelet mean volume (Bld) [Entitic vol] 9.5 fL 6.2-12.0 [facility] Monocyte percentageOrdered B y: Jose Antonio Leandro on 03-12-2025 Monocytes/100 WBC (Bld) 10.0 % 0-10 [facility] Natriuretic peptide.B prohor clive N-Terminal [Mass/volume] in Serum or PlasmaOrdered By: [place] Leandro on 03-12-2025 Natriuretic peptide.B prohormone N-Terminal [Mass/Vol] 916 pg/mL High <900 [facility] Comment on above: Heart Failure Unlike ly: < 300 pg/mLHeart Failure Likely< 50 Years: > 450 pg/mL50-75 Years: > 900 pg/mL>75 Years: > 1800 pg/mL Neutrophil percentageOrdered By: [place] Leandro on 03-12-2025 Neutrophils/100 WBC (Bld) 61.9 % 47-70 [facility] Nucleated red blood cell per centageOrdered By: Jose Antonio Leandro on 03-12-2025 Nucleated RBC/100 WBC (Bld) [Ratio] 0 % 0-5 [facility] Platelet countOrdered By: Cy ril Leandro on 03-12-2025 Platelets (Bld) [#/Vol] 424 10*3/uL 150-450 [facility] Potassium measurement (mass/ volume)Ordered By: Jose Antonio Leandro on 03-12-2025 Potassium (Unsp spec) [Mass/Vol] 4.2 mmol/L 3.3-5.1 [facility] RBC Auto (Bld) [#/Vol]Ordere d By: [place] Leandro on 03-12-2025 RBC (Bld) [#/Vol] 4.52 10*6/uL 4.2-5.4 [facility] Serum creatinine measurement (mass/volume)Ordered By: Jose Antonio Leandro on 03-12-2025 Creatinine [Mass/Vol] 0.78 mg/dL 0.70-1.20 [facility] Serum glucose measurement (m ass/volume)Ordered By: Jose Antonio Leandro on 03-12-2025 Glucose [Mass/Vol] 90 mg/dL 70-99 [facility] Serum or plasma calcium virgie urement (mass/volume)Ordered By: [place] Leandro on 03-12-2025 Calcium [Mass/Vol] 10.0 mg/dL 7.6-11.0 [facility] Serum or plasma urea nitroge n measurement (mass/volume)Ordered By: Jose Antonio Leandro on 03-12-2025 Urea nitrogen [Mass/Vol] 18 mg/dL 4-19 [facility] Sodium levelOrdered By: Jenna Reeves on 03-12-2025 Sodium [Moles/Vol] 137 mmol/L 133-145 [facility] T4 Total, Thyroxinon 025 T4 [Mass/Vol] 6.6 ug/dL Normal 4.8-13.9 [facility] Comment on above: Performed By: #### L 501.9520, L503.7505, L500.2500, L501.9310, L100.0100 ####[facility] [address] [place], [place], [address] TSH DL <= 0.005 mIU/L QnOrde red By: Jose Antonio Reeves on 03-12-2025 TSH Qn 1.950 uIU/mL 0.300-4.200 [facility] Thyroid Stim Hormone (TSH)on 03-12-2025 TSH 1.950 uIU/mL Normal 0.300-4.200 [facility] Comment on above: Performed By: #### L 501.9520, L503.7505, L500.2500, L501.9310, L100.0100 ####[facility] [address] [place], [place], [address] ThyroxineOrdered By: Jose Antonio guido on 03-12-2025 T4 [Mass/Vol] 6.6 ug/dL 4.8-13.9 [facility] White blood cell (WBC) count Ordered By: Jose Antonio Reeves on 03-12-2025 WBC (Bld) [#/Vol] 7.2 10*3/uL 4.4-11.0 [facility] Cardiology Visit Reporton Cardiology Visit Report [facility] [address] [place] [address] OFFICE VISIT Date of Service: 01/06/25 MR#: [id number] Acct: [id number] Name: VISHAL GEORGE Rep #: [id number] : 1960 Provider: PHONG rome Age/Sex: 64/F Location: [facility] Status: Signed with Addenda ADDENDUM by PHONG Castro on 01/06/25 at 1636 Assessment and Plan Assessment and Plan (1) Ischemic cardiomyopathy: Status: Acute Plan: Ischemic cardiomyopathy: Echocardiogram 10/08/2023-EF: 45% Twelve-lead EC04/24/2023-normal sinus rhythm at 80 bpm and QRS 100 [place] [employer] Functional Class: 1 ACC/AHA stage: [...] updated, as necessary. Follow Up: 6 Months (REGISTER CLERK/PA) 12-15 Months (INCIDENT ANALYST) 01/06/25 1636 Date Austen Castro NP REGISTER CLERK-C cc: PHONG Griffin * Signed HPI HPI History of Present Illness Details: VISHAL GEORGE, is a 64 F who presents to the office today for a cardiovascular follow-up visit. Patient presented to [facility] for severe nausea and vomiting. Patient [...] V. tach/wide-complex tachycardia. She was transferred to [facility] for ICD evaluation. 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 Normal [facility] 12-21-2024 [facility] Telephone (OBGYWM) VISHAL GEORGE ([id number]) 1960 F Date Time Provider Department 12/21/24 ARACELIS MCCORMICK OBEldarionW During your visit today, we recorded the following information about you: Dinah Singh, RN 12/21/2024 2:31 PM Signed Patient called in requested 11/19/24 bone density result. Advised mychart message was sent by provider, but she does not use her Metamarketshart. Read her DM's message to her. All [...] 12/21/2024 Noted Resolved Coronary artery disease involving gambell howard*09/10/2012 Unspecified essential hypertension [I10] 09/10/2012 08/29/2016 [...] Status:Closed by DINAH SINGH on 12/21/[address] [facility] Albumin to globulin ratioOrd ered By: Ricki Griffin on 12-07-2024 Albumin/Globulin [Mass ratio] 1.1 {ratio} 0.9-2.4 [facility] Bilirubin, totalOrdered By: Ricki Griffin on 12-07-2024 Bilirubin [Mass/Vol] 0.20 mg/dL 0.20-1.00 [facility] Comment on above: For patients on eltr ombopag therapy, use of Dimension [place] TBIL is not recommended. Blood urea nitrogen (BUN)/cr eatinine ratioOrdered By: Ricki Griffin on 12-07-2024 Urea nitrogen/Creatinine [Mass ratio] 25.3 mg/mg High 10-20 [facility] Carbon dioxide measurementOr dered By: Ricki Griffin on 12-07-2024 CO2 [Moles/Vol] 27.0 mmol/L 21.0-32.0 [facility] Chloride measurementOrdered By: Ricki Griffin on 12-07-2024 Chloride [Moles/Vol] 105 mmol/L 98-107 [facility] Comprehensive Metabolic Prof ilon 12-07-2024 Albumin [Mass/Vol] 3.6 g/dL Normal 3.2-5.0 [facility] Comment on above: Performed By: #### L 506.1000, L500.4100, L501.9985, L500.4050, L502.0250 ####[facility] [address] [place], [address] Albumin/Globulin [Mass ratio] 1.1 {ratio} Normal 0.9-2.4 [facility] Comment on above: Performed By: #### L 506.1000, L500.4100, L501.9985, L500.4050, L502.0250 ####[facility] [address] [place], [address] ALK P 72 U/L Normal 45-117 [facility] Comment on above: Performed By: #### L 506.1000, L500.4100, L501.9985, L500.4050, L502.0250 ####[facility] [address] [place], [address] ALT [Catalytic activity/Vol] 23 U/L Normal 13-56 [facility] Comment on above: Performed By: #### L 506.1000, L500.4100, L501.9985, L500.4050, L502.0250 ####[facility] [address] [place], [address] AST [Catalytic activity/Vol] 17 U/L Normal 15-37 [facility] Comment on above: Performed By: #### L 506.1000, L500.4100, L501.9985, L500.4050, L502.0250 ####[facility] [address] [place], [address] Bilirubin [Mass/Vol] 0.20 mg/dL Normal 0.20-1.00 [facility] Comment on above: Result Comment: For patients on eltrombopag therapy, use of Dimension [place] TBIL is not recommended. Performed By: #### L 506.1000, L500.4100, L501.9985, L500.4050, L502.0250 ####[facility] [address] [place], [address] BUN/CRE 25.3 RATIO High 10-20 [facility] Comment on above: Performed By: #### L 506.1000, L500.4100, L501.9985, L500.4050, L502.0250 ####[facility] [address] [place], [address] CA,Total 9.2 mg/dL Normal 8.5-10.1 [facility] Comment on above: Performed By: #### L 506.1000, L500.4100, L501.9985, L500.4050, L502.0250 ####[facility] [address] [place], [address] Chloride [Moles/Vol] 105 mmol/L Normal 98-107 [facility] Comment on above: Performed By: #### L 506.1000, L500.4100, L501.9985, L500.4050, L502.0250 ####[facility] [address] [place], [address] CO2 [Moles/Vol] 27.0 mmol/L Normal 21.0-32.0 [facility] Comment on above: Performed By: #### L 506.1000, L500.4100, L501.9985, L500.4050, L502.0250 ####[facility] [address] [place], [address] Creatinine [Mass/Vol] 0.71 mg/dL Normal 0.55-1.02 [facility] Comment on above: Result Comment: The validity of the calculated GFR GFRAA in patients over 70 years has not been determined. Clinical correlation is essential. Performed By: #### L 506.1000, L500.4100, L501.9985, L500.4050, L502.0250 ####[facility] [address] [place], [address] EST GFR - AA 107 mL/min Normal >60 [facility] Comment on above: Result Comment: Afri can Green[place] GFR Calc Performed By: #### L 506.1000, L500.4100, L501.9985, L500.4050, L502.0250 ####[facility] [address] [place], [address] GAP 7 Normal 5-15 [facility] Comment on above: Performed By: #### L 506.1000, L500.4100, L501.9985, L500.4050, L502.0250 ####[facility] [address] [place], [address] GFR/1.73 sq M.predicted among non-blacks MDRD (S/P/Bld) [Vol rate/Area] 88 mL/min/{1.73_m2} Normal >60 [facility] Comment on above: Result Comment: Non- GFR Calc Performed By: #### L 506.1000, L500.4100, L501.9985, L500.4050, L502.0250 ####[facility] [address] [place], [address] Globulin (S) [Mass/Vol] 3.3 g/dL Normal 2.2-4.2 [facility] Comment on above: Performed By: #### L 506.1000, L500.4100, L501.9985, L500.4050, L502.0250 ####[facility] [address] [place], [address] Glucose [Mass/Vol] 105 mg/dL Normal 74-106 [facility] Comment on above: Result Comment: Fast ing Glucose result from 100 to 125 mg/dL suggests IMPAIRED HOMEOSTASIS per A.D.A. criteria. Performed By: #### L 506.1000, L500.4100, L501.9985, L500.4050, L502.0250 ####[facility] [address] [place], [address] Potassium [Moles/Vol] 4.2 mmol/L Normal 3.5-5.1 [facility] Comment on above: Performed By: #### L 506.1000, L500.4100, L501.9985, L500.4050, L502.0250 ####[facility] [address] [place], [address] Sodium [Moles/Vol] 139 mmol/L Normal 136-145 [facility] Comment on above: Performed By: #### L 506.1000, L500.4100, L501.9985, L500.4050, L502.0250 ####[facility] [address] [place], [address] T PROT 6.9 g/dL Normal 6.4-8.2 [facility] Comment on above: Performed By: #### L 506.1000, L500.4100, L501.9985, L500.4050, L502.0250 ####[facility] [address] [place], [address] Urea nitrogen [Mass/Vol] 18 mg/dL Normal 7-18 [facility] Comment on above: Performed By: #### L 506.1000, L500.4100, L501.9985, L500.4050, L502.0250 ####[facility] [address] [place], [place], [address] Glomerular filtration rate ( GFR) estimationOrdered By: Ricki Griffin on 12-07-2024 GFR/1.73 sq M.predicted among non-blacks MDRD (S/P/Bld) [Vol rate/Area] 88 mL/min/{1.73_m2} >60 [facility] Comment on above: Non- GFR Calc Glucose measurementOrdered B y: Ricki Griffin on 12-07-2024 Glucose [Mass/Vol] 105 mg/dL 74-106 [facility] Comment on above: Fasting Glucose resu lt from 100 to 125 mg/dL suggests IMPAIRED HOMEOSTASIS per A.D.A. criteria. Hemoglobin A1con 12-07-2024 HbA1c (Bld) [Mass fraction] 5.4 % Normal 3.8-5.6 [facility] Comment on above: Result Comment: Norm al < 5.7 % Prediabetic 5.7 - 6.4 % Diabetic >or= 6.5 % Please note range changes. Performed By: #### L 506.1000, L500.4100, L501.9985, L500.4050, L502.0250 ####[facility] [address] [place], [place], [id number] Hemoglobin A1c percentageOrd ered By: Ricki Griffin on 12-07-2024 HbA1c (Bld) [Mass fraction] 5.4 % 3.8-5.6 [facility] Comment on above: Normal < 5.7 % Predi abetic 5.7 - 6.4 % Diabetic >or= 6.5 % Please note range changes. High density lipoprotein (HD L) measurementOrdered By: Ricki Griffin on 12-07-2024 Cholesterol in HDL [Mass/Vol] 50 mg/dL >40 [facility] Comment on above: The drugs N-Acetylcy steine and Metamizole may falsely depress this assay. Reference Range HDL <40 mg/dL Low HDL Cholesterol HDL >or= 60 mg/dL High HDL Cholesterol Laboratory - Chemistry and C hemistry - challengeOrdered By: Ricki Griffin on 12-07-2024 AST [Catalytic activity/Vol] 17 U/L 15-37 [facility] Lipid Profileon 12-07-2024 Cholesterol [Mass/Vol] 172 mg/dL Normal 200 [facility] Comment on above: Result Comment: <200 mg/dL Desirable 200-240 mg/dL Borderline >240 mg/dL High Risk Performed By: #### L 506.1000, L500.4100, L501.9985, L500.4050, L502.0250 ####[facility] [address] [place], [address] Cholesterol in HDL [Mass/Vol] 50 mg/dL Normal [facility] Comment on above: Result Comment: The drugs N-Acetylcysteine and Metamizole may falsely depress this assay. Reference Range HDL <40 mg/dL Low HDL Cholesterol HDL >or= 60 mg/dL High HDL Cholesterol Performed By: #### L 506.1000, L500.4100, L501.9985, L500.4050, L502.0250 ####[facility] [address] [place], [address] Cholesterol in LDL [Mass/Vol] 105 mg/dL Normal 0-130 [facility] Comment on above: Performed By: #### L 506.1000, L500.4100, L501.9985, L500.4050, L502.0250 ####[facility] [address] [place], [address] Cholesterol in VLDL [Mass/Vol] 17 mg/dL Normal 5-40 [facility] Comment on above: Performed By: #### L 506.1000, L500.4100, L501.9985, L500.4050, L502.0250 ####[facility] [address] [place], [address] Triglyceride [Mass/Vol] 83 mg/dL Normal [facility] Comment on above: Result Comment: The drugs N-Acetylcysteine and Metamizole may falsely depress this assay. Serum Triglycerides Reference Interval Normal <150 mg/dL Borderline high 150 - 199 mg/dL High 200 - 499 mg/dL Very High > or = 500 mg/dL Performed By: #### L 506.1000, L500.4100, L501.9985, L500.4050, L502.0250 ####[facility] [address] [place], [address] Low density lipoprotein (LDL ) cholesterol measurementOrdered By: Ricki Griffin on 12-07-2024 Cholesterol in LDL [Mass/Vol] 105 mg/dL 0-130 [facility] Microalb:Creat Ratio,Random URon 12-07-2024 Creatinine [Mass/Vol] 58.70 mg/dL Normal NO RAN GE EST. [facility] Comment on above: Performed By: #### L 506.1000, L500.4100, L501.9985, L500.4050, L502.0250 ####[facility] [address] [place], [place], [id number] MALB:CRE 9.7 mg/g CRE Normal <30 mg/g CRE [facility] Comment on above: Performed By: #### L 506.1000, L500.4100, L501.9985, L500.4050, L502.0250 ####[facility] [address] [place], [address] MICROALBUMIN,UR 5.7 mg/L Normal NO RANGE EST. [facility] Comment on above: Performed By: #### L 506.1000, L500.4100, L501.9985, L500.4050, L502.0250 ####[facility] [address] [place], [place], [id number] Potassium measurementOrdered By: Ricki Griffin on 12-07-2024 Potassium [Moles/Vol] 4.2 mmol/L 3.5-5.1 [facility] Serum anion gap measurementO rdered By: Ricki Griffin on 12-07-2024 Anion gap [Moles/Vol] 7 mmol/L 5-15 [facility] Serum globulin measurementOr dered By: Ricki Griffin on 12-07-2024 Globulin (S) [Mass/Vol] 3.3 g/dL 2.2-4.2 [facility] Serum or plasma alanine herrera otransferase (ALT) measurementOrdered By: Ricki Griffin on 12-07-2024 ALT [Catalytic activity/Vol] 23 U/L 13-56 [facility] Serum or plasma albumin virgie urement (mass/volume)Ordered By: Ricki Griffin on 12-07-2024 Albumin [Mass/Vol] 3.6 g/dL 3.2-5.0 [facility] Serum or plasma alkaline sherri sphatase measurementOrdered By: Ricki Griffin on 12-07-2024 ALP [Catalytic activity/Vol] 72 U/L 45-117 [facility] Serum or plasma calcium virgie urement (mass/volume)Ordered By: Ricki Griffin on 12-07-2024 Calcium [Mass/Vol] 9.2 mg/dL 8.5-10.1 [facility] Serum or plasma cholesterol measurement (mass/volume)Ordered By: Ricki Griffin on 12-07-2024 Cholesterol [Mass/Vol] 172 mg/dL <200 [facility] Comment on above: <200 mg/dL Desirable 200-240 mg/dL Borderline >240 mg/dL High Risk Serum or plasma creatinine m easurement (mass/volume)Ordered By: Ricki Griffin on 12-07-2024 Creatinine [Mass/Vol] 0.71 mg/dL 0.55-1.02 [facility] Comment on above: The validity of the calculated GFR & GFRAA in patients over 70 years has not been determined. Clinical correlation is essential. Serum or plasma urea nitroge n measurement (mass/volume)Ordered By: Ricki Griffin on 12-07-2024 Urea nitrogen [Mass/Vol] 18 mg/dL 7-18 [facility] Sodium levelOrdered By: Froylan Griffin on 12-07-2024 Sodium [Moles/Vol] 139 mmol/L 136-145 [facility] Total proteinOrdered By: Godfrey Griffin on 12-07-2024 Protein [Mass/Vol] 6.9 g/dL 6.4-8.2 [facility] Triglycerides measurementOrd ered By: Ricki Griffin on 12-07-2024 Triglyceride [Mass/Vol] 83 mg/dL <199 [facility] Comment on above: The drugs N-Acetylcy steine and Metamizole may falsely depress this assay.Serum Triglycerides Reference Interval Normal <150 mg/dL Borderline high 150 - 199 mg/dL High 200 - 499 mg/dL Very High > or = 500 mg/dL Urine creatinine measurement (mass/volume)Ordered By: Ricki Griffin on 12-07-2024 Creatinine (U) [Mass/Vol] 58.70 mg/dL NO RANGE EST. [facility] Very low density lipoprotein (VLDL) cholesterol measurementOrdered By: Ricki Griffin on 12-07-2024 Very low density lipoprotein (VLDL) cholesterol measurement 17 mg/dL 5-40 [facility] Vitamin D,25 Hydroxyon 12-07 Vitamin D 25-OH 61.9 ng/mL Normal [facility] Comment on above: Result Comment: Stephanie min D 25(OH) Status Range Deficiency <20 ng/mL (50nmol/L) Insufficiency 20 - 30 ng/mL (50 - 75 nmol/L) Sufficiency 30 - 100 ng/mL (75 - 250 nmol/L) Toxicity >100 ng/mL (>250 nmol/L) Performed By: #### L 506.1000, L500.4100, L501.9985, L500.4050, L502.0250 ####[facility] [address] [place], [address] BD DXA - AXIAL SKELETONon BD DXA - AXIAL SKELETON * * *Final Repor t* * * DATE OF EXAM: Nov 19 2024 3:47PM [facility] 0804 - BD DXA - AXIAL SKELETON / PROCEDURE REASON: multiple diagnoses * * * * Physician Interpretation * * * * EXAMINATION: DXA BONE DENSITOMETRY BD DXA - AXIAL SKELETON, BD DXA TRABECLR BONE SCORE (TBS) PATIENT DEMOGRAPHICS: Age: 64 years, Gender: Female SCANNER INFORMATION: DXA Model: Progressus - Market6 C 10547 Date Scanned: 11/19/2024 3:47 PM CLINICAL HISTORY: [...] had a previous bone density in the [facility] or the previous bone density was performed on a different DXA machine (new, updated model or different location) within the [facility]. VERTEBRAL FRACTURE ASSESSMENT Not performed. TRABECULAR [...] FOR MORE INFORMATION ABOUT DIAGNOSIS AND TREATMENT: [facility] for Osteoporosis and Metabolic Bone Disease:? www.ccf.org/liban muñiz/leonardo National Osteoporosis Foundation:? www.nof.org International Society of Clinical Densitometry www.iscd.org Audio Visual Production Specialist: HERNANDO Transcribe Date/Time: Nov 23 2024 6:04A Dictated by : MIRIAM KUMARI MD This examination was interpreted and the report reviewed and electronically signed by: MIRIAM KUMARI MD on Nov 23 2024 6:06AM EST [id number] CN -1.[address] [facility] BD DXA TRABECLR BONE SCORE ( TBS)on 11-19-2024 BD DXA TRABECLR BONE SCORE (TBS) * * *Final Report* * * DATE OF EXAM: Nov 19 2024 3:47PM [facility] 0801 - BD DXA TRABECLR BONE SCORE (TBS) / PROCEDURE REASON: multiple diagnoses * * * * Physician Interpretation * * * * EXAMINATION: DXA BONE DENSITOMETRY BD DXA - AXIAL SKELETON, BD DXA TRABECLR BONE SCORE (TBS) PATIENT DEMOGRAPHICS: Age: 64 years, Gender: Female SCANNER INFORMATION: DXA Model: Progressus - Tã Em [employer]é Discovery C 61576 Date Scanned: 11/19/2024 3:47 PM CLINICAL HISTORY: [...] had a previous bone density in the [facility] or the previous bone density was performed on a different DXA machine (new, updated model or different location) within the [facility]. VERTEBRAL FRACTURE ASSESSMENT Not performed. TRABECULAR [...] FOR MORE INFORMATION ABOUT DIAGNOSIS AND TREATMENT: [facility] Osteoporosis and Metabolic Bone Disease:? www.ccf.org/liban s/osteo National Osteoporosis Foundation:? www.nof.org International Society of Clinical Densitometry www.iscd.org Audio Visual Production Specialist: HERNANDO Transcribe Date/Time: Nov 23 2024 6:04A Dictated by : MIRIAM KUMARI MD This examination was interpreted and the report reviewed and electronically signed by: MIRIAM KUMARI MD on Nov 23 2024 6:06AM EST [id number] CN -1.[address] [facility] CNOVon 09-21-2024 CNOV Office Visit (OBGYWM) VISHAL GEORGE ([id number]) 1960 F Date Time Provider Department 09/21/24 3:30 PM ARACELIS MCCORMICK OBGYWM During your visit today, we recorded the following information about you: Blood pressure Weight Height 140/78 78.5 kg 1.562 m Aracelis Mccormick MD 09/21/2024 3:54 PM Signed Flyer Repairer offered: Patient declinesLedy Trevino is a 64 [...] L2 SAB1 IAB0 Ectopic0 Multiple0 Live Births0 Polarity Tester History LMP: 03/05/2012 (Approximate), Postmenopausal Age at Menarche: Age at First : Age at Menopause: Polarity Tester History Comments: Sexual Activity: Yes; Male Contraception: [...] discussed with the Patient or Patient's Authorized Central Stores Attendant. As applicable, any other physician, advance practice provider, medical student, or other health professional student that will be observing or involved in the sensitive examination for educational or training purposes was discussed with the Patient or Authorized Central Stores Attendant. The Patient or Authorized Central Stores Attendant has agreed to proceed with the sensitive [...] external genitalia normal, normal Bartholin's glands, urethra, Mcdonald's glands, no vulvar lesions, no cervical lesions, good vaginal support, physiologic discharge present, normal appearing perineal body and perianal region BIMANUAL: uterus normal size, shape and consistency, no adnexal masses, and non-tender RECTOVAGINAL: deferred. NEURO: alert and o (more content not included)... Normal [facility] HIGH RISK HUMAN PAPILLOMA ASHANTI (HPV), PCR FOR DETECTION AND GENOTYPINGon 09-21-2024 HPV 16 Ag Ql (Unsp spec) Not detected Normal Not detected [facility] Comment on above: Order Comment: Speci men Type: FLUID SPECIMEN Ordering Facility: [facility] Address: [address] [place] [address] Performed By: #### H PVHRT #### [facility] CLIA [id number] [address] [place] [address] [place] HPV 18 Ag Ql (Unsp spec) Not detected Normal Not detected [facility] Comment on above: Order Comment: Speci men Type: FLUID SPECIMEN Ordering Facility: [facility] Address: [address] [place] [address] Performed By: #### H PVHRT #### [facility] CLIA [id number] [address] [place] [address] [place] HPV 31+33+35+39+45+51+52+56+58 +59+66+68 DNA FERCHO+probe Ql (Cvx) Not detected Normal Not detected [facility] Comment on above: Order Comment: Speci men Type: FLUID SPECIMEN Ordering Facility: [facility] Address: [address] [place] [address] Result Comment: High Risk HPV Other Type includes HPV types 31, 33, 35, 39, 45, 51, 52, 56, 58, 59, 66 and 68. Performed By: #### H PVHRT #### [facility] CLIA [id number] [address] [place] [address] [place] PAP TESTon 09-21-2024 ADEQUACY Satisfactory for interpretation. Normal [facility] Comment on above: Order Comment: Speci men Type: FLUID SPECIMEN Ordering Facility: [facility] Address: [address] [place] [address] Performed By: #### L [id number] #### [facility] CLIA [id number] [address] [place] [address] [place] CASE REPORT Normal [facility] Comment on above: Order Comment: Speci men Type: FLUID SPECIMEN Ordering Facility: [facility] Address: [address] [place] [address] Result Comment: Gyne cologic Cytology Report Case: [id number] Authorizing Provider: Aracelis Mccormick, Collected: 09/21/2024 03:58 PM MD Ordering Location: OB/Gynecology Received: 09/21/2024 04:31 PM First Screen: Shira Roque, CT, ASCP Specimen: Pap Test, ThinPrep, Cervix Performed By: #### L [id number] #### [facility] CLIA [id number] [address] [place] [address] [place] CLINICAL HISTORY, CYTOLOGY, PHARMACEUTICAL PHYSICIAN Post Menopausal Normal [facility] Comment on above: Order Comment: Speci men Type: FLUID SPECIMEN Ordering Facility: [facility] Address: [address] [place] [address] Performed By: #### L [id number] #### [facility] CLIA [id number] [address] [place] [address] [place] CYTOLOGY PAP OTHER INTERPRETATION Atrophic specimen. Normal [facility] Comment on above: Order Comment: Speci men Type: FLUID SPECIMEN Ordering Facility: [facility] Address: [address] [place] [address] Performed By: #### L [id number] #### [facility] CLIA [id number] [address] [place] [address] [place] FINAL PERFORMING LAB Normal [facility] Comment on above: Order Comment: Speci men Type: FLUID SPECIMEN Ordering Facility: [facility] Address: [address] [place] [address] Result Comment: Tech nical component, master electrician screening performed at [facility], [address] [place], [place] [id number] CLIA# [id number] Diagnostic interpretation performed at [facility], [address] [place], [place] [id number] CLIA# [id number] Suede Cleaner: Bart Madsen M.D. Performed By: #### L [id number] #### [facility] CLIA [id number] [address] [place] [address] [place] INTERPRETATION, CYTOLOGY, PHARMACEUTICAL PHYSICIAN Normal [facility] Comment on above: Order Comment: Speci men Type: FLUID SPECIMEN Ordering Facility: [facility] Address: [address] [place] [address] Result Comment: Nega tive for intraepithelial lesion or malignancy. Performed By: #### L [id number] #### [facility] CLIA [id number] [address] [place] [address] [place] PAP DISCLAIMER COMMENT The Pap Smear is a screening test for cervical cancer. False negative results occur with all screening tests, emphasizing the need for rescreening at recommended intervals, and clinical correlation. Normal [facility] Comment on above: Order Comment: Speci men Type: FLUID SPECIMEN Ordering Facility: [facility] Address: [address] [place] [address] Performed By: #### L [id number] #### [facility] CLIA [id number] [address] [place] [address] [place] PAP PIPELAYING FITTER COMMENT This specimen has been analyzed by the [employer] Imaging System, an automated imaging and review system, which assists the laboratory in evaluating cells on ThinPrep Pap tests. Following automated imaging, selected bautista from every slide are reviewed by a master electrician. Normal [facility] Comment on above: Order Comment: Speci men Type: FLUID SPECIMEN Ordering Facility: [facility] Address: [address] [place] [address] Performed By: #### L [id number] #### [facility] CLIA [id number] [address] [place] [address] [place] [address] [place] DBT Breast - [...] Ya Lanza M.D. Electronically signed on: 09/16/2024 Audio Visual Production Specialist: PRIYANKA Crowerinataliia Date/Time: Sep 16 2024 7:47A Dictated by: ZULMA LUCERO, This examination was interpreted and the report reviewed and electronically signed by: YA LANZA MD on Sep 16 2024 11:18AM [facility] DIVISION OF RADIOLOGY * * *Final Report* * * DATE OF EXAM: Sep 16 2024 8:00AM [facility] 0582 - JON SCREENING W JOSHUA / PROCEDURE REASON: Encounter for screening mammogram for malignant neoplasm of breast * * * * Physician Interpretation * * * * RESULT: [facility] [address] [id number] #[id number] - JON SCREENING W JOSHUA HISTORY: Patient [...] the prior study. DIVISION OF RADIOLOGY Provider, [facility] [place] - 09/16/2024 * * *Final Report* * * DATE OF EXAM: Sep 16 2024 8:00AM W 0582 - [facility] SCREENING W JOSHUA / PROCEDURE REASON: Encounter for screening mammogram for malignant neoplasm of breast * * * * Physician Interpretation * * * * RESULT: [place] [address] #[id number] - [facility] SCREENING W JOSHUA HISTORY: Patient is [...] Ya Lanza M.D. Electronically signed on: 09/16/2024 Audio Visual Production Specialist: PRIYANKA Transcrinataliia Date/Time: Sep 16 2024 7:47A Dictated by: ZULMA LUCERO, This examination was interpreted and the report reviewed and electronically signed by: YA LANZA MD on Sep 16 2024 11:18AM EST [facility] Radiology Study observation (narrative) [facility] DBT Breast - bilateral scree ningOrdered By: Jorge Provider on 09-16-2024 [facility] JON SCREENING W TOMOon 09-16 JON SCREENING W JOSHUA * * *Final Report* * * DATE OF EXAM: Sep 16 2024 8:00AM [facility] 0582 - JON SCREENING W JOSHUA / PROCEDURE REASON: Encounter for screening mammogram for malignant neoplasm of breast * * * * Physician Interpretation * * * * RESULT: [place] [address] [place] [address] #[id number] - JON SCREENING W JOSHUA HISTORY: Patient [...] Ya Lanza M.D. Electronically signed on: 09/16/2024 Audio Visual Production Specialist: PRIYANKA Transcribe Date/Time: Sep 16 2024 7:47A Dictated by: ZULMA LUCERO, This examination was interpreted and the report reviewed and electronically signed by: YA LANZA MD on Sep 16 2024 11:18AM EST [id number] CN Normal [facility] CNOVon 12-27-2023 [facility] VISHAL [facility] ([id number]) 1960 F Date Time Provider Department 12/27/23 12:00 PM [facility] During your visit today, we recorded [...] or concern, you can call me at [phone]. Shay Teresa APRN.MELODY 12/27/2023 12:33 PM Signed [facility] [place] [facility] OUTPATIENT VISIT DATE [...] of ventricular tachycardia. She was transferred to [facility] for possible ICD placement. [...] use inhaler daily. She follows with a heavy equipment sales associate in [place]. Does not weigh every day. Monitors her sodium intake. Does not monitor fluids as well. Weights have been stable at 162-164 lbs. States she had an echocardiogram in September in [place] and reports an ejection fraction of 45%. She was told by her heavy equipment sales associate if it was less than 35% she [...] with HF Clinic and with cardiology in [place]. She is to call the office next [...] once GDMT is optimized -repeat echo in [place] shows 45% from September 2023 Per the patient- no outside records present during visit 3. Hyperlipidemia (more content not included)... Normal [facility] Basophil percentageOrdered B y: Ricki Griffin on 11-13-2023 Bilirubin [Mass/Vol] 0.40 mg/dL 0.20-1.00 [facility] Comment on above: For patients on eltr ombopag therapy, use of Dimension [place] TBIL is not recommended. Chloride [Moles/Vol] 110 mmol/L 98-107 [facility] Cholesterol [Mass/Vol] 137 mg/dL <200 [facility] Comment on above: <200 mg/dL Desirable 200-240 mg/dL Borderline >240 mg/dL High Risk Glucose [Mass/Vol] 117 mg/dL 74-106 [facility] Comment on above: Fasting Glucose resu lt from 100 to 125 mg/dL suggests IMPAIRED HOMEOSTASIS per A.D.A. criteria. Potassium [Moles/Vol] 4.8 mmol/L 3.5-5.1 [facility] Protein [Mass/Vol] 6.9 g/dL 6.4-8.2 [facility] Sodium [Moles/Vol] 139 mmol/L 136-145 [facility] Triglyceride [Mass/Vol] 52 mg/dL <199 [facility] Comment on above: The drugs N-Acetylcy steine and Metamizole may falsely depress this assay.Serum Triglycerides Reference Interval Normal <150 mg/dL Borderline high 150 - 199 mg/dL High 200 - 499 mg/dL Very High > or = 500 mg/dL Laboratory - Chemistry and C hemistry - challengeOrdered By: Ricki Griffin on 11-13-2023 Albumin/Globulin [Mass ratio] 1.2 {ratio} 0.9-2.4 [facility] ALP [Catalytic activity/Vol] 72 U/L 45-117 [facility] ALT [Catalytic activity/Vol] 28 U/L 13-56 [facility] Cholesterol in HDL (Body fld) [Mass/Vol] 52 mg/dL >40 [facility] Comment on above: The drugs N-Acetylcy steine and Metamizole may falsely depress this assay. Reference Range HDL <40 mg/dL Low HDL Cholesterol HDL >or= 60 mg/dL High HDL Cholesterol Cholesterol in LDL (Body fld) [Moles/Vol] 75 mg/dL 0-130 [facility] Cholesterol in VLDL Calc [Moles/Vol] 10 mg/dL 5-40 [facility] CO2 [Moles/Vol] 27.0 mmol/L 21.0-32.0 [facility] Globulin (S) [Mass/Vol] 3.2 g/dL 2.2-4.2 [facility] Urea nitrogen/Creatinine [Mass ratio] 26.3 mg/mg 10-20 [facility] No Panel InformationOrdered By: Ricki Griffin on 11-13-2023 Estimated GFR (MDRD) Amer 94 mL/min >60 [facility] Comment on above: GFR Calc Estimated GFR (MDRD) Non-Af Amer 78 mL/min >60 [facility] Comment on above: Non- GFR Calc Vitamin D 25-Hydroxy 62.7 ng/mL [facility] Comment on above: Vitamin D 25(OH) Sta tus Range Deficiency <20 ng/mL (50nmol/L) Insufficiency 20 - 30 ng/mL (50 - 75 nmol/L) Sufficiency 30 - 100 ng/mL (75 - 250 nmol/L) Toxicity >100 ng/mL (>250 nmol/L) Serum or plasma calcium virgie urement (mass/volume)Ordered By: Ricki Griffin on 11-13-2023 Calcium [Mass/Vol] 9.4 mg/dL 8.5-10.1 [facility] Serum or plasma creatinine m easurement (mass/volume)Ordered By: Ricki Griffin on 11-13-2023 Creatinine [Mass/Vol] 0.80 mg/dL 0.55-1.02 [facility] Comment on above: The validity of the calculated GFR & GFRAA in patients over 70 years has not been determined. Clinical correlation is essential. Serum or plasma urea nitroge n measurement (mass/volume)Ordered By: Ricki Griffin on 11-13-2023 Urea nitrogen [Mass/Vol] 21 mg/dL 7-18 [facility] Thin prep Papanicolaou smear with manual screeningOrdered By: Ricki Griffin on 11-13-2023 Thin prep Papanicolaou smear with manual screening 3.7 g/dL 3.2-5.0 [facility] Thin prep Papanicolaou smear with manual screening 16 U/L 15-37 [facility] Thin prep Papanicolaou smear with manual screening 2 5-15 [facility] Thin prep Papanicolaou smear with manual screening 5.1 mg/L NO RANGE EST. [facility] Urine albumin/creatinine rat io for detection of microalbuminuriaOrdered By: Ricki Griffin on 11-13-2023 Albumin/Creatinine DL <= 1.0 mg/L (24H U) [Ratio] 6.1 mg/g CRE <30 [facility] Urine creatinine measurement (mass/volume)Ordered By: Ricki Griffin on 11-13-2023 Creatinine (U) [Mass/Vol] 83.70 mg/dL NO RANGE EST. [facility] Whole blood hemoglobin A1c/t otal hemoglobin ratio (mass fraction)Ordered By: Ricki Griffin on 11-13-2023 HbA1c (Bld) [Mass fraction] 5.4 % 3.8-5.6 [facility] Comment on above: Normal < 5.7 % Predi abetic 5.7 - 6.4 % Diabetic >or= 6.5 % Please note range changes. JAZMYNEOVon 07-12-2023 [facility] VISH[facility]OR[facility] ([id number]) 1960 F Date Time Provider Department 07/12/23 12:00 PM [facility] During your visit today, we recorded the following information about you: Pulse Blood pressure Weight 69/minute 139/76 74 kg Shay Teresa APRN.CNP 07/12/2023 12:38 PM Signed [facility] [place] [facility] Failure [facility] OUTPATIENT VISIT DATE July 12, 2023 OUTPATIENT VISIT TYPE ESTABLISHED PRIMARY CARE PHYSICIAN: TRUDY Rendon, PLASTIC MOLDING OPERATOR CHIEF COMPLAINT: Patient presents with: Breathing Problem [...] of ventricular tachycardia. She was transferred to [facility] for possible ICD placement. Electrophysiology was consulted. Recommended life vest and repeat echo in 3 months. Cardiology also started patient on carvedilol, jardiance and aldactone along with entresto. Today, the patient reports feeling very well. She follows with a heavy equipment sales associate in [place]. Every once in awhile she feels a [...] once GDMT is optimized -repeat echo in [place] shows 15% Per the patient- no outside records present during visit 3. Hyperlipidemia, unspecified hyperlipidemia type - ICD9: 272.4, ICD10: E78.5 -continue statin therapy 4. Primary hypertension - ICD9: 401.9, ICD10: I10 -BP suboptimal during visit 139/76 mmHg -encourage DASH/low sodium diet -encourage exercise with rest breaks as needed -goal BP <130/80 mmHg -continue home BP monitoring 5. 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 Moe Washington to be scheduled. PAST MEDICAL HISTORY Diagnosis Date Cataract of left eye COPD (chronic obstructive pulmonary disease) (HCC) Dilated cardiomyopathy (HCC) 02/27/2023 Dysplasia of cervix, unspecified High cholesterol History of percutaneous cor (more content not included)... [facility] 06-07-2023 [facility] Office Visit ([facility]) VISHAL GEORGE ([id number]) 1960 F Date Time Provider Department 06/07/23 12:[address] [facility] During your visit today, we recorded the following information about you: Pulse Weight 66/minute 74.6 kg Shay Teresa APRN.CNP 06/07/2023 12:42 PM Signed [facility] [place] [facility] Heart Failure Clinic OUTPATIENT VISIT DATE [...] dilated cardiomyopathy, chronic obstructive pulmonary disease, s/p [facility] with stent placement on 02/25 revealing [...] of ventricular tachycardia. She was transferred to [facility] for possible ICD placement. [...] able. She states she has a primary heavy equipment sales associate at [place] in which she had an echocardiogram that she says ejection fraction was still at 15%. No results are in [facility] as the are from outside hospital. She [...] once GDMT is optimized -repeat echo in [place] shows 15% Per the patient- no outside records present during visit 3. Hyperlipidemia, unspecified hyperlipidemia type - ICD9: 272.4, ICD10: E78.5 -continue statin therapy 4. Primary hypertension - ICD9: 401.9, ICD10: I10 -BP suboptimal during visit mmHg -encourage DASH/low sodium diet -encourage exercise with rest breaks as needed -goal BP <130/80 mmHg -continue home BP monitoring 5. 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 Moe Washington to be scheduled. PAST MEDICAL HISTORY Diagnosis Date Cataract of left eye COPD (chronic obstructive pulmonary disease) (HCC) Dilated cardiomyopathy (HCC) 02/27/2023 Dysplasia of cervix, unspecified High cholesterol History of percutaneo (more content not included)... Normal [facility] Basophil percentageOrdered B y: Ricki Griffin on 05-03-2023 Bilirubin [Mass/Vol] 0.40 mg/dL 0.20-1.00 [facility] Comment on above: For patients on eltr ombopag therapy, use of Dimension [place] TBIL is not recommended. Chloride [Moles/Vol] 106 mmol/L 98-107 [facility] Cholesterol [Mass/Vol] 132 mg/dL <200 [facility] Comment on above: <200 mg/dL Desirable 200-240 mg/dL Borderline >240 mg/dL High Risk Glucose [Mass/Vol] 88 mg/dL 74-106 [facility] Potassium [Moles/Vol] 4.1 mmol/L 3.5-5.1 [facility] Protein [Mass/Vol] 6.8 g/dL 6.4-8.2 [facility] Sodium [Moles/Vol] 141 mmol/L 136-145 [facility] Triglyceride [Mass/Vol] 92 mg/dL <199 [facility] Comment on above: The drugs N-Acetylcy steine and Metamizole may falsely depress this assay.Serum Triglycerides Reference Interval Normal <150 mg/dL Borderline high 150 - 199 mg/dL High 200 - 499 mg/dL Very High > or = 500 mg/dL Laboratory - Chemistry and C hemistry - challengeOrdered By: Ricki Griffin on 05-03-2023 ALP [Catalytic activity/Vol] 78 U/L 45-117 [facility] ALT [Catalytic activity/Vol] 38 U/L 13-56 [facility] CO2 [Moles/Vol] 27.0 mmol/L 21.0-32.0 [facility] Globulin (S) [Mass/Vol] 3.0 g/dL 2.2-4.2 [facility] Urea nitrogen/Creatinine [Mass ratio] 11.3 mg/mg 10-20 [facility] No Panel InformationOrdered By: Ricki Griffin on 05-03-2023 Estimated GFR (MDRD) Amer 94 mL/min >60 [facility] Comment on above: GFR Calc Estimated GFR (MDRD) Non-Af Amer 78 mL/min >60 [facility] Comment on above: Non- GFR Calc Urine Microalbumin/Creatinine Ratio 7.6 mg/g CRE <30 [facility] Vitamin D 25-Hydroxy 59.7 ng/mL [facility] Comment on above: Vitamin D 25(OH) Sta tus Range Deficiency <20 ng/mL (50nmol/L) Insufficiency 20 - 30 ng/mL (50 - 75 nmol/L) Sufficiency 30 - 100 ng/mL (75 - 250 nmol/L) Toxicity >100 ng/mL (>250 nmol/L) Serum or plasma albumin virgie urement (mass/volume)Ordered By: Ricki Griffin on 05-03-2023 Albumin [Mass/Vol] 3.8 g/dL 3.2-5.0 [facility] Serum or plasma albumin/glob ulin mass ratioOrdered By: Ricki Griffin on 05-03-2023 Albumin/Globulin [Mass ratio] 1.3 {ratio} 0.9-2.4 [facility] Serum or plasma calcium virgie urement (mass/volume)Ordered By: Ricki Griffin on 05-03-2023 Calcium [Mass/Vol] 9.0 mg/dL 8.5-10.1 [facility] Serum or plasma cholesterol in HDL measurement (mass/volume)Ordered By: Ricki Griffin on 05-03-2023 Cholesterol in HDL [Mass/Vol] 44 mg/dL >40 [facility] Comment on above: The drugs N-Acetylcy steine and Metamizole may falsely depress this assay. Reference Range HDL <40 mg/dL Low HDL Cholesterol HDL >or= 60 mg/dL High HDL Cholesterol Serum or plasma cholesterol in VLDL measurement (mass/volume)Ordered By: Ricki Griffin on 05-03-2023 Cholesterol in VLDL [Mass/Vol] 18 mg/dL 5-40 [facility] Serum or plasma creatinine m easurement (mass/volume)Ordered By: Ricki Griffin on 05-03-2023 Creatinine [Mass/Vol] 0.80 mg/dL 0.55-1.02 [facility] Comment on above: The validity of the calculated GFR & GFRAA in patients over 70 years has not been determined. Clinical correlation is essential. Serum or plasma low density lipoprotein (LDL) cholesterol measurement (mass/volume)Ordered By: Ricki Griffin on 05-03-2023 Cholesterol in LDL [Mass/Vol] 70 mg/dL 0-130 [facility] Serum or plasma urea nitroge n measurement (mass/volume)Ordered By: Ricki Griffin on 05-03-2023 Urea nitrogen [Mass/Vol] 9 mg/dL 7-18 [facility] Thin prep Papanicolaou smear with manual screeningOrdered By: Ricki Griffin on 05-03-2023 Thin prep Papanicolaou smear with manual screening 17 U/L 15-37 [facility] Thin prep Papanicolaou smear with manual screening 8 5-15 [facility] Thin prep Papanicolaou smear with manual screening 5.1 mg/L NO RANGE EST. [facility] Urine creatinine measurement (mass/volume)Ordered By: Ricki Griffin on 05-03-2023 Creatinine (U) [Mass/Vol] 66.40 mg/dL NO RANGE EST. [facility] Absolute lymphocyte countOrd ered By: Shira Oglesby on 04-24-2023 Lymphocytes Auto (Unsp spec) [#/Vol] 1.07 10*3/uL 0.83-4.51 [facility] Basophil percentageOrdered B y: Shira Oglesby on 04-24-2023 Basophils/100 WBC (Bld) 0.7 % 0-1 [facility] Bilirubin [Mass/Vol] 0.90 mg/dL 0.20-1.00 [facility] Comment on above: For patients on eltr ombopag therapy, use of Dimension [place] TBIL is not recommended. Chloride [Moles/Vol] 102 mmol/L 98-107 [facility] Eosinophils/100 WBC (Bld) 0.2 % 0-5 [facility] Glucose [Mass/Vol] 170 mg/dL 74-106 [facility] Comment on above: Fasting Glucose resu lt greater than or equal to 126 mg/dL suggests DIABETES MELLITUS per A.D.A. criteria. Neutrophils (Bld) [#/Vol] 10.3 10*3/uL 2.0-7.7 [facility] Neutrophils/100 WBC (Bld) 84.4 % 47-70 [facility] Potassium [Moles/Vol] 3.9 mmol/L 3.5-5.1 [facility] Protein [Mass/Vol] 8.2 g/dL 6.4-8.2 [facility] Sodium [Moles/Vol] 136 mmol/L 136-145 [facility] WBC (Bld) [#/Vol] 12.2 10*3/uL 4.4-11.0 [facility] Blood erythrocytes count (nu mber/volume)Ordered By: Shira Oglesby on 04-24-2023 RBC (Bld) [#/Vol] 4.85 10*6/uL 4.2-5.4 [facility] Blood hemoglobin measurement (mass/volume)Ordered By: Shira Oglesby on 04-24-2023 Hemoglobin (Bld) [Mass/Vol] 13.9 g/dL 12.0-15.0 [facility] Blood lymphocytes/100 leukoc ytesOrdered By: Shira Oglesby on 04-24-2023 Lymphocytes/100 WBC (Bld) 8.8 % 19-41 [facility] Blood monocytes/100 leukocyt esOrdered By: Shira Oglesby on 04-24-2023 Monocytes/100 WBC (Bld) 5.3 % 0-10 [facility] Blood platelet mean volumeOr dered By: Shira Oglesby on 04-24-2023 Platelet mean volume (Bld) [Entitic vol] 9.8 fL 6.2-12.0 [facility] Determination of erythrocyte mean corpuscular volume (MCV)Ordered By: Shira Oglesby on 04-24-2023 MCV (RBC) [Entitic vol] 87.0 fL 81-99 [facility] Direct bilirubinOrdered By: Shira Oglesby on 04-24-2023 Bilirubin.direct [Mass/Vol] 0.23 mg/dL 0.00-0.30 [facility] Hematocrit Auto (Bld) [Volum e fraction]Ordered By: Shira Oglesby on 04-24-2023 Hematocrit (Bld) [Volume fraction] 42.2 % 37-47 [facility] Laboratory - Chemistry and C hemistry - challengeOrdered By: Shira Oglesby on 04-24-2023 ALP [Catalytic activity/Vol] 92 U/L 45-117 [facility] ALT [Catalytic activity/Vol] 82 U/L 13-56 [facility] CO2 [Moles/Vol] 20.0 mmol/L 21.0-32.0 [facility] Globulin (S) [Mass/Vol] 3.9 g/dL 2.2-4.2 [facility] Lipase [Catalytic activity/Vol] 28 U/L 13-75 [facility] Comment on above: Please note:LIPASE r evised reference range effective 23. New Lipase methodology. Expected to produce lower values than the previous assay method. NEW Reference Range: 13 - 75 U/L Urea nitrogen/Creatinine [Mass ratio] 16.3 mg/mg 10-20 [facility] Laboratory - Hematology and Cell countsOrdered By: Shira Oglesby on 04-24-2023 Erythrocyte distribution width (RBC) [Entitic vol] 40.6 fL 35.1-43.9 [facility] Erythrocyte distribution width (RBC) [Ratio] 12.9 % 11.6-14.6 [facility] Immature granulocytes/100 WBC (Bld) 0.600 % 0.0-0.9 [facility] Comment on above: IG% - Immature Granu locytes (promyelocytes, myelocytes and metamyelocytes) > 1% indicates that a LEFT SHIFT is Present. MCH (RBC) [Entitic mass] 28.7 pg 27.0-32.0 [facility] Nucleated RBC/100 WBC (Bld) [Ratio] 0 % 0-5 [facility] MCHC Auto (RBC) [Mass/Vol]Or dered By: Shira Oglesby on 04-24-2023 MCHC (RBC) [Mass/Vol] 32.9 g/dL 32-36 [facility] No Panel InformationOrdered By: Shira Oglesby on 04-24-2023 Estimated Creatinine Clearance Calc 37.88 ml/min [facility] Estimated GFR (MDRD) Amer 54 mL/min >60 [facility] Comment on above: GFR Calc Estimated GFR (MDRD) Non-Af Amer 45 mL/min >60 [facility] Comment on above: Non- GFR Calc Troponin I High Sensitivity 9 pg/mL 3.0-54.0 [facility] Comment on above: Please Note: New [place] t Units and Gender Specific Reference Ranges. For more information see Policy Stat Procedure [place] High Sensitivity Troponin (TNIH) and attachments. Platelets bldOrdered By: Karyn Oglesby on 04-24-2023 Platelets (Bld) [#/Vol] 406 10*3/uL 150-450 [facility] Serum or plasma albumin virgie urement (mass/volume)Ordered By: Shira Oglesby on 04-24-2023 Albumin [Mass/Vol] 4.3 g/dL 3.2-5.0 [facility] Serum or plasma calcium virgie urement (mass/volume)Ordered By: Shira Oglesby on 04-24-2023 Calcium [Mass/Vol] 10.1 mg/dL 8.5-10.1 [facility] Serum or plasma creatinine m easurement (mass/volume)Ordered By: Shira Oglesby on 04-24-2023 Creatinine [Mass/Vol] 1.29 mg/dL 0.55-1.02 [facility] Comment on above: The validity of the calculated GFR & GFRAA in patients over 70 years has not been determined. Clinical correlation is essential. Serum or plasma urea nitroge n measurement (mass/volume)Ordered By: Shira Oglesby on 04-24-2023 Urea nitrogen [Mass/Vol] 21 mg/dL 7-18 [facility] Thin prep Papanicolaou smear with manual screeningOrdered By: Shira Oglesby on 04-24-2023 Thin prep Papanicolaou smear with manual screening 42 U/L 15-37 [facility] Thin prep Papanicolaou smear with manual screening 14 5-15 [facility] CNPNon 03-25-2023 MELODYN Telephone (AGCARDPOB) ARIELVISHAL ARSHAD ([id number]) 1960 F Date Time Provider Department 03/25/23 [...] the Lifevest has been declined. 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 KARIN Galvan RN 03/26/2023 8:32 AM Signed I faxed this note to Dr Reeves's office at [phone]. KARIN Galvan As of Date: 03/25/2023 Noted Allergy Reaction ADHESIVE TAPE (ROSINS) 09/10/2012 2 - Rash Date Reviewed: 03/07/2023 Reviewed by: Shay Teresa APRN.PLASTIC MOLDING OPERATOR - Fully Assessed Reason for Visit: Patient [...] 03/25/2023 Noted Resolved Coronary artery disease involving gambell howard*09/10/2012 Unspecified essential hypertension [I10] 09/10/2012 08/29/2016 [...] by ALESSANDRA DAMON on 03/26/23 [facility] CNOVon 03-07-2023 CN [facility] VISH[facility] ([id number]) 1960 F Date Time Provider Department 03/07/23 10:[address] [facility] During your visit today, we recorded the following information about you: Pulse Blood pressure Weight 86/minute 116/64 69.9 kg Shay Teresa APRN.CNP 03/07/2023 11:18 AM Signed Heart [facility] [place] [facility] Heart Failure Clinic OUTPATIENT VISIT DATE [...] of ventricular tachycardia. She was transferred to [facility] for possible ICD placement. [...] BP monitoring 5. 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 - ICD9: 414.01, ICD10: I25.10 -stable -s/p [facility] on 02/25 -on aspiri (more content not included)... Normal [facility] Basic metabolic 2000 panelon 03-01-2023 Anion gap [Moles/Vol] 12 mmol/L Normal 9-18 [facility] Comment on above: Order Comment: Speci men Type: BLOOD SPECIMEN Ordering Facility: [facility] Address: [address] [address] Performed By: #### 2 4320-11, #### [facility] CLIA [id number] [address] [place] [address] [place] Calcium [Mass/Vol] 9.8 mg/dL Normal 8.5-10.2 [facility] Comment on above: Order Comment: Speci men Type: BLOOD SPECIMEN Ordering Facility: [facility] Address: [address] [address] Performed By: #### 2 4320-11, #### [facility] CLIA [id number] [address] [place] [address] [place] Chloride [Moles/Vol] 100 mmol/L Normal 97-105 [facility] Comment on above: Order Comment: Speci men Type: BLOOD SPECIMEN Ordering Facility: [facility] Address: [address] [address] Performed By: #### 2 4320-11, #### [facility] CLIA [id number] [address] [place] [address] [place] CO2 [Moles/Vol] 24 mmol/L Normal 22-30 [facility] Comment on above: Order Comment: Speci men Type: BLOOD SPECIMEN Ordering Facility: [facility] Address: [address] [address] Performed By: #### 2 4320-11, #### [facility] CLIA [id number] [address] [place] Creatinine [Mass/Vol] 0.69 mg/dL Normal 0.58-0.96 [facility] Comment on above: Order Comment: Juan Manuel cox Type: BLOOD SPECIMEN Ordering Facility: [facility] Address: [address] [address] Performed By: #### 2 4321-2, #### [facility] CLIA [id number] [address] ESTIMATED GLOMERULAR FILTRATION RATE 99 mL/min/1.73m??? Normal >=60 [facility] Comment on above: Order Comment: Juan Manuel cox Type: BLOOD SPECIMEN Ordering Facility: [facility] Address: [address] [place] [address] Result Comment: Elenita mated Glomerular Filtration Rate [...] GFR. Performed By: #### 2 4321-2, #### [facility] CLIA [id number] [address] [facility] Glucose [Mass/Vol] 100 mg/dL High 74-99 [facility] Comment on above: Order Comment: Juan Manuel cox Type: BLOOD SPECIMEN Ordering Facility: [facility] Address: [address] [place] [address] Result Comment: The [place] Diabetes Association (ADA) provides guidance for cutoff [...] Standards of Medical Care in Diabetes 2016, [place] [employer]. Diabetes Care. 2016.39(Suppl 1). Performed By: #### 2 4320-2, #### [facility] CLIA [id number] [address] [facility] Potassium [Moles/Vol] 4.1 mmol/L Normal 3.7-5.1 [facility] Comment on above: Order Comment: Speci men Type: BLOOD SPECIMEN Ordering Facility: [facility] Address: [address] [place] [address] Performed By: #### 2 4320-11, #### [facility] CLIA [id number] [address] Sodium [Moles/Vol] 136 mmol/L Normal 136-144 [facility] Comment on above: Order Comment: Juna Manuel men Type: BLOOD SPECIMEN Ordering Facility: [facility] Address: [address] [place] [address] Performed By: #### 2 4320-11, #### [facility] CLIA [id number] [address] Urea nitrogen [Mass/Vol] 15 mg/dL Normal 7-21 [facility] Comment on above: Order Comment: Francescoi men Type: BLOOD SPECIMEN Ordering Facility: [facility] Address: [address] [place] [address] Performed By: #### 2 4320-11, #### [facility] CLIA [id number] [address] [facility] CNDSon 03-01-2023 CNDS HNO ID: [id number] Author: Oly Guzmán DO Service: Hospital Medicine [...] Guzmán DO Primary Care Provider: TRUDY Rendon, PLASTIC MOLDING OPERATOR My Medical Team Members: Treatment Team: Attending Provider: Oly Guzmán DO Primary Service: SHIV SANCHEZ TAZEWELL Consulting: Lenka Magana MD MY CONDITION AT DISCHARGE: Stable REASON I WAS IN THE HOSPITAL: Evaluation due to episode of nonsustained vtach SUMMARY OF WHAT HAPPENED WHILE I WAS IN THE HOSPITAL: Patient was admitted for Evaluation due to episode of nonsustained vtach. This is a 62-year-old female with known congestive heart failure systolic and diastolic, CAD status post stent who presented to [facility] for severe nausea and vomiting and [...] plan to transition her to [facility]. The patient was a planned to be discharged from [place], but then she had a 34 run of V. tach/wide-complex tachycardia so decision was to transfer her to [facility] for ICD evaluation as [...] with follow up with her PCP and heavy equipment sales associate. OTHER PROBLEMS/DIAGNOSIS: Principal Problem: NSVT (nonsustained ventricular tachycardia) (HCC) Active Problems: Coronary artery disease involving gambell coronary artery Hyperlipidemia Hypertension Nicotine use disorder, [...] CAD status post stent who presented to [facility] for severe nausea and vomiting and [...] plan to transition her to [facility]. The patient was a planned to be discharged from [place], but then she had a 34 run (more content not included)... Normal [facility] Amber 03-01-2023 MEÑO Telephone ([facility]) VISHAL GEORGE ([id number]) 1960 F Date Time Provider Department 03/01/23 INNA POOLE [facility] During your visit today, we recorded the following information about you: Inna Poole RN 03/01/2023 2:13 PM Signed Order received for OP follow up with the [facility] on 02/28/23. Met with patient at bedside. Instructed patient on the purpose of the [facility]. Provided with Zone sheet. Patient lives in [place] and prefers to follow up at the [facility]. Notified the Heart Failure Nurse Navigator of patient's request. She will contact the [facility]. Allergies As of Date: 03/01/2023 Noted Allergy Reaction ADHESIVE TAPE (ROSINS) 09/10/2012 2 - Rash Date Reviewed: 02/28/2023 Reviewed by: Héctor Oliver RN - Fully Assessed Reason for Visit: Orders [681] ak [facility] appt contact [Other] Prescriptions as [...] 03/01/2023 Noted Resolved Coronary artery disease involving gambell howard*09/10/2012 Unspecified essential hypertension [I10] 09/10/2012 08/29/2016 [...] by INNA POOLE on 03/01/23 [facility] CNPN Telephone (ELSA) VISHAL GEORGE ([id number]) 1960 F Date Time Provider Department 03/01/23 TAYLOR GORDILLO During your visit today, we recorded the following information about you: Taylor Gordillo APRN.DISTRIBUTION OPERATIONS MANAGER 03/01/2023 3:29 PM Signed Patient seen by HF Clinic nurse to discuss post-discharge follow-up in HF Clinic. Patient prefers [place] [facility], due to location. Patient information and plan for discharge home today sent to Eva Macias CNP ([facility]). Allergies As of Date: 03/01/2023 Noted Allergy Reaction ADHESIVE TAPE (ROSINS) 09/10/2012 2 - Rash Date Reviewed: 02/28/2023 Reviewed by: Héctor Oliver RN - Fully Assessed Reason for Visit: Floor Trader - Hospital Follow Up [3601] Cmt: Contacted Eva Macias CNP ([facility]) Prescriptions as of 03/01/2023 - carvedilol [...] 03/01/2023 Noted Resolved Coronary artery disease involving gambell howard*09/10/2012 Unspecified essential hypertension [I10] 09/10/2012 08/29/2016 [...] by TAYLOR GORDILLO on 03/01/23 [facility] CONSULT PROGon 03-01-2023 CONSULT PROG HNO ID: [id number] Author: Shellie Woods APRN.PLASTIC MOLDING OPERATOR Service: Cardiovascular Medicine Author Type: Nurse Practitioner Type: Consult Progress Note Filed: 03/01/2023 11:00 AM Note Text: CARDIOLOGY CONSULT PROGRESS NOTE CARDIOLOGY ATTENDING: Dr. Ryan/ Dr. Reeves is outpatient heavy equipment sales associate Date and Reason for initial consult: CHF [...] NSVT, recently had an echocardiogram performed at [place] with findings of EF of 15%. She [...] for opt (more content not included)... Normal [facility] Magnesium SerPl-mCncon 03-01 Magnesium [Mass/Vol] 2.1 mg/dL Normal 1.7-2.3 [facility] Comment on above: Order Comment: Juan Manuel cox Type: BLOOD SPECIMEN Ordering Facility: [facility] Address: [address] [address] Performed By: #### 2 4321-2, 51130-1 #### [facility] CLIA [id number] 1 [place] [address] [place] NURSING PROGon 03-01-2023 NURSING PROG HNO ID: [id number] Author: Inna Poole RN Service: Heart Failure Clinic Author Type: Registered Nurse Type: Nursing Progress Note Filed: 03/01/2023 2:08 PM Note Text: Order received for OP follow up with the [facility] on 02/28/23. Met with patient at bedside. Instructed patient on the purpose of the [facility]. Provided with Zone sheet. Patient lives in [place] and prefers to follow up at the [facility] in [place]. Notified Heart Failure nurse Navigator. She will contact [facility]. Normal [facility] Basic metabolic 2000 panelon 02-28-2023 Anion gap [Moles/Vol] 12 mmol/L Normal 9-18 [facility] Comment on above: Order Comment: Juan Manuel cox Type: BLOOD SPECIMEN Ordering Facility: [facility] Address: [address] [address] Performed By: #### 5 8410-2 #### [facility] CLIA [id number] [address] [place] Calcium [Mass/Vol] 9.7 mg/dL Normal 8.5-10.2 [facility] Comment on above: Order Comment: Juan Manuel cox Type: BLOOD SPECIMEN Ordering Facility: [facility] Address: [address] [address] Performed By: #### 5 8410-2 #### [facility] CLIA [id number] [address] [facility] Chloride [Moles/Vol] 99 mmol/L Normal 97-105 [facility] Comment on above: Order Comment: Speci men Type: BLOOD SPECIMEN Ordering Facility: [facility] Address: [address] [place] [address] Performed By: #### 5 8410-2 #### [facility] CLIA [id number] [address] [facility] CO2 [Moles/Vol] 25 mmol/L Normal 22-30 [facility] Comment on above: Order Comment: Speci men Type: BLOOD SPECIMEN Ordering Facility: [facility] Address: [address] [place] [address] Performed By: #### 5 8410-2 #### [facility] CLIA [id number] [address] Creatinine [Mass/Vol] 0.72 mg/dL Normal 0.58-0.96 [facility] Comment on above: Order Comment: Speci men Type: BLOOD SPECIMEN Ordering Facility: [facility] Address: [address] [place] [address] Performed By: #### 5 8410-2 #### [facility] CLIA [id number] [address] ESTIMATED GLOMERULAR FILTRATION RATE 96 mL/min/1.73m??? Normal >=60 [facility] Comment on above: Order Comment: Speci men Type: BLOOD SPECIMEN Ordering Facility: [facility] Address: [address] [place] [address] Result Comment: Elenita mated Glomerular Filtration Rate [...] GFR. Performed By: #### 5 8410-2 #### [facility] CLIA [id number] 1 [place] [address] [place] Glucose [Mass/Vol] 105 mg/dL High 74-99 [facility] Comment on above: Order Comment: Juan Manuel cox Type: BLOOD SPECIMEN Ordering Facility: [facility] Address: [address] [place] [address] Result Comment: The [place] Diabetes Association (ADA) provides guidance for cutoff [...] Standards of Medical Care in Diabetes 2016, [place] [employer] Association. Diabetes Care. 2016.39(Suppl 1). Performed By: #### 5 8410-2 #### [facility] CLIA [id number] 1 [place] [address] [place] Potassium [Moles/Vol] 3.9 mmol/L Normal 3.7-5.1 [facility] Comment on above: Order Comment: Juan Manuel cox Type: BLOOD SPECIMEN Ordering Facility: [facility] Address: [address] [place] [address] Performed By: #### 5 8410-2 #### [facility] CLIA [id number] 1 [place] [address] [place] Sodium [Moles/Vol] 136 mmol/L Normal 136-144 [facility] Comment on above: Order Comment: Juan Manuel kenny Type: BLOOD SPECIMEN Ordering Facility: [facility] Address: [address] [place] [address] Performed By: #### 5 8410-2 #### [facility] CLIA [id number] 1 [place] [address] [place] Urea nitrogen [Mass/Vol] 14 mg/dL Normal 7-21 [facility] Comment on above: Order Comment: Speci men Type: BLOOD SPECIMEN Ordering Facility: [facility] Address: [place] [address] Performed By: #### 5 8410-2 #### [facility] CLIA [id number] [address] [facility] CONSULTon 02-28-2023 CONSULT HNO ID: [id number] Author: Anibal Ryan MD Service: Cardiovascular Medicine Author Type: Physician Type: Consults Filed: 02/28/2023 10:45 AM Note Text: CONSULT: CARDIOLOGY SERVICE SERVICE DATE: 02/28/2023 CONSULTING PHYSICIAN: Anibal Ryan PCP: TRUDY Rendon, PLASTIC MOLDING OPERATOR ATTENDING: Oly Guzmán DO REASON FOR CONSULT: congestive heart failure management Subjective CHIEF COMPLAINT: Ventricular tachyarrhythmia (HCC) [I47.20] HISTORY OF PRESENT ILLNESS: Ms. George is a 62 year old female with a history of ischemic and nonischemic, coronary disease status post prior PCI in 2006 and recent PCI few days ago, chronic tobacco and alcohol abuse, COPD, hypertension, hyperlipidemia who was transferred from [facility] for further evaluation of ventricular tachycardia. Patient reports she has a history of coronary disease and underwent PCI to the RCA back in 2006. Unfortunately, she did not subsequently follow-up regularly with a heavy equipment sales associate. He last had preserved LV function as [...] ejection fraction 15%. He was admitted to [facility] for further evaluation in light of [...] was otherwise asymptomatic. She was transferred to [facility] for further evaluation. Since admission [...] once daily. (more content not included)... Normal [facility] CONSULT PROGon 02-28-2023 CONSULT PROG HNO ID: [id number] Author: Melissa Koroma APRN.PLASTIC MOLDING OPERATOR Service: Electrophysiology Author Type: Nurse Practitioner Type: [...] in the mid RCA status post PCI TELEMETRY/FRANCHISE MANAGER: Sinus rhythm with occasional PVCs, rates [...] nonsustained (HCC) (02/26/2023) Coronary artery disease involving gambell coronary artery (09/10/2012) Hyperlipidemia (08/29/2016) Hypertension (08/29/2016) Nicotine use disorder, F17.2 (02/26/2023) Acute on chronic combined systolic and diastolic CHF (congestive heart failure) (HCC) (02/26/2023) Tobacco abuse (02/26/2023) NICM (nonischemic cardiomyopathy) ([facility]) (02/27/2023) History of percutaneous coronary intervention (02/27/2023) Chronic systolic CHF (congestive heart failure) ([facility]) (02/28/2023) Ischemic cardiomyopathy (02/28/2023) Alcohol abuse (02/28/2023) The patient has a history of CAD, underwent PCI/stent to RCA in 2006, had preserved LV systolic function at that time and also in 2012 by echocardiogram. However she recently established with a new heavy equipment sales associate, echocardiogram 02/21/2023 revealed new diagnosis of shamar (more content not included)... Normal [facility] Laboratory - Microbiology an d Antimicrobial susceptibilityOrdered By: Dr. Arndt on 02-28-2023 Bacteria identified Cx Nom (Bld) No growth in 5 days. [facility] Bacteria identified Cx Nom (Bld) No growth in 5 days. [facility] Magnesium SerPl-mCncon 02-28 Magnesium [Mass/Vol] 2.0 mg/dL Normal 1.7-2.3 [facility] Comment on above: Order Comment: Speci kenny Type: BLOOD SPECIMEN Ordering Facility: [facility] Address: [address] [place] [address] Performed By: #### 2 4321-2, 57008-6 #### [facility] CLIA [id number] 1 [place] [address] [place] Basic metabolic 2000 panelon 02-27-2023 Anion gap [Moles/Vol] 12 mmol/L Normal 9-18 [facility] Comment on above: Order Comment: Juan Manuel cox Type: BLOOD SPECIMEN Ordering Facility: [facility] Address: [address] [place] [address] Performed By: #### 2 4321-2 #### [facility] CLIA [id number] 1 [place] [address] [place] Calcium [Mass/Vol] 9.9 mg/dL Normal 8.5-10.2 [facility] Comment on above: Order Comment: Speci kenny Type: BLOOD SPECIMEN Ordering Facility: [facility] Address: [address] [address] Performed By: #### 2 4321-2 #### [facility] CLIA [id number] 1 [place] [address] [place] Chloride [Moles/Vol] 100 mmol/L Normal 97-105 [facility] Comment on above: Order Comment: Speci men Type: BLOOD SPECIMEN Ordering Facility: [facility] Address: [address] [address] Performed By: #### 2 4321-2 #### [facility] CLIA [id number] [address] [facility] CO2 [Moles/Vol] 25 mmol/L Normal 22-30 [facility] Comment on above: Order Comment: Speci men Type: BLOOD SPECIMEN Ordering Facility: [facility] Address: [address] [address] Performed By: #### 2 4321-2 #### [facility] CLIA [id number] [address] [facility] Creatinine [Mass/Vol] 0.65 mg/dL Normal 0.58-0.96 [facility] Comment on above: Order Comment: Speci men Type: BLOOD SPECIMEN Ordering Facility: [facility] Address: [address] [place] [address] Performed By: #### 2 4321-2 #### [facility] CLIA [id number] [address] ESTIMATED GLOMERULAR FILTRATION RATE 101 mL/min/1.73m??? Normal >=60 [facility] Comment on above: Order Comment: Speci men Type: BLOOD SPECIMEN Ordering Facility: [facility] Address: [address] [place] [address] Result Comment: Elenita mated Glomerular Filtration Rate [...] Performed By: #### 2 4321-2 #### [facility] CLIA [id number] [address] [place] Glucose [Mass/Vol] 108 mg/dL High 74-99 [facility] Comment on above: Order Comment: Speci men Type: BLOOD SPECIMEN Ordering Facility: [facility] Address: [address] [place] [address] Result Comment: The [place] Diabetes Association (ADA) provides guidance for cutoff [...] Standards of Medical Care in Diabetes 2016, [place] [employer]. Diabetes Care. 2016.39(Suppl 1). Performed By: #### 2 4321-2 #### [facility] CLIA [id number] 1 [place] [address] [place] Potassium [Moles/Vol] 4.0 mmol/L Normal 3.7-5.1 [facility] Comment on above: Order Comment: Juan Manuel cox Type: BLOOD SPECIMEN Ordering Facility: [facility] Address: [address] [place] [address] Performed By: #### 2 4321-2 #### [facility] CLIA [id number] [address] [place] Sodium [Moles/Vol] 137 mmol/L Normal 136-144 [facility] Comment on above: Order Comment: Juan Manuel cox Type: BLOOD SPECIMEN Ordering Facility: [facility] Address: [address] [address] Performed By: #### 2 4321-2 #### [facility] CLIA [id number] 1 [place] [address] [place] Urea nitrogen [Mass/Vol] 12 mg/dL Normal 7-21 [facility] Comment on above: Order Comment: Juan Manuel cox Type: BLOOD SPECIMEN Ordering Facility: [facility] Address: [address] [address] Performed By: #### 2 4321-2 #### [facility] CLIA [id number] [address] [facility] CONSULTon 02-27-2023 CONSULT HNO ID: [id number] Author: Vinay Lovell MD Service: Electrophysiology Author Type: Physician Type: Consults Filed: 02/27/2023 4:24 PM Note Text: CONSULT: CARDIOLOGY SERVICE [facility] Electrophysiology (EP) SERVICE DATE: 02/27/2023 SERVICE TIME: 4:03 PM CONSULTING PHYSICIAN: Vinay Lovell PCP: Ricki Griffin, WAGE CONCILIATOR, PLASTIC MOLDING OPERATOR ATTENDING: Oly Guzmán DO REASON FOR CONSULT: Arrhythmias Subjective CHIEF COMPLAINT: Ventricular tachyarrhythmia (HCC) [I47.20] HISTORY OF PRESENT ILLNESS: Ms. George is a 62 year old female transferred from [facility] for evaluation of ventricular tachycardia and heart failure. She has history of CAD, underwent PCI/stent to RCA in 2006. She had preserved LV systolic function at that time, and also in 2011 by the most recent echocardiogram. However, she recently established with a new heavy equipment sales associate, and an echocardiogram 02/21/2023 revealed new diagnosis of severe cardiomyopathy, LVEF 15%. She was experiencing episodes of nausea and diaphoresis over the past couple months, also exertional shortness of breath. She was admitted to [facility] with these symptoms. She underwent cardiac [...] had recurrence of substantial NSVT here at [facility]. No history of syncope or [...] 10 mg (more content not included)... Normal [facility] NUTRITIONon 02-27-2023 NUTRITION HNO ID: [id number] Author: Hui Crandall RD Service: Nutrition Therapy [...] Medical condition, Patient/family self-report Estimated kilocalorie needs: 6223-0322 Calorie Calculation Method: 25-30 kcals/kg, [place] Body Weight Estimated protein needs (grams): 54-65 Grams protein determined by: 1.0 - 1.2 g/kg, [place] body weight Care Plan: Follow for diet advancement to goal Monitor and Evaluation: Meet greater than 75% of estimated needs, Monitor fluid/electrolyte balance, Monitor bowel function, Monitor labs, I/Os, vital signs, weight Discharge Recommendations: Diet Diet: Heart Healthy - HPI: 62 yo female, presented with ventricular tachyarrhythmia from [facility] at present, awaiting Cardiology consult and [...] February 27, 2023 TIME: 10:19 AM Normal [facility] Basophil percentageOrdered B y: Dr. Joseph on 02-26-2023 Bilirubin [Mass/Vol] 0.40 mg/dL 0.20-1.00 [facility] Comment on above: For patients on eltr ombopag therapy, use of Dimension [place] TBIL is not recommended. Chloride [Moles/Vol] 101 mmol/L 98-107 [facility] Glucose [Mass/Vol] 108 mg/dL 74-106 [facility] Comment on above: Fasting Glucose resu lt from 100 to 125 mg/dL suggests IMPAIRED HOMEOSTASIS per A.D.A. criteria. Potassium [Moles/Vol] 3.9 mmol/L 3.5-5.1 [facility] Protein [Mass/Vol] 7.1 g/dL 6.4-8.2 [facility] Sodium [Moles/Vol] 136 mmol/L 136-145 [facility] WBC (Bld) [#/Vol] 7.4 10*3/uL 4.4-11.0 [facility] Blood erythrocytes count (nu mber/volume)Ordered By: Dr. Joseph on 02-26-2023 RBC (Bld) [#/Vol] 5.26 10*6/uL 4.2-5.4 [facility] Blood hemoglobin measurement (mass/volume)Ordered By: Dr. Joseph on 02-26-2023 Hemoglobin (Bld) [Mass/Vol] 15.6 g/dL 12.0-15.0 [facility] Blood platelet mean volumeOr dered By: Dr. Joseph on 02-26-2023 Platelet mean volume (Bld) [Entitic vol] 9.9 fL 6.2-12.0 [facility] CBC panel Auto (Bld)on 02-26 Erythrocyte distribution width (RBC) [Ratio] 12.7 % Normal 11.5-15.0 [facility] Comment on above: Order Comment: Speci men Type: BLOOD SPECIMEN Ordering Facility: [facility] Address: [address] [place] [address] Performed By: #### 5 8410-2 #### [facility] CLIA [id number] [address] [facility] Hematocrit (Bld) [Volume fraction] 44.9 % Normal 36.0-46.0 [facility] Comment on above: Order Comment: Speci men Type: BLOOD SPECIMEN Ordering Facility: [facility] Address: [address] [place] [address] Performed By: #### 5 8410-2 #### [facility] CLIA [id number] [address] [facility] Hemoglobin (Bld) [Mass/Vol] 15.0 g/dL Normal 11.5-15.5 [facility] Comment on above: Order Comment: Speci men Type: BLOOD SPECIMEN Ordering Facility: [facility] Address: [address] [place] [address] Performed By: #### 5 8410-2 #### [facility] CLIA [id number] [address] [place] [address] [facility] MCH (RBC) [Entitic mass] 29.4 pg Normal 26.0-34.0 [facility] Comment on above: Order Comment: Speci men Type: BLOOD SPECIMEN Ordering Facility: [facility] Address: [address] [place] [address] Performed By: #### 5 8410-2 #### [facility] CLIA [id number] [address] [place] MCHC (RBC) [Mass/Vol] 33.4 g/dL Normal 30.5-36.0 [facility] Comment on above: Order Comment: Speci men Type: BLOOD SPECIMEN Ordering Facility: [facility] Address: [address] [address] Performed By: #### 5 8410-2 #### [facility] CLIA [id number] [address] MCV (RBC) [Entitic vol] 88.0 fL Normal 80.0-100.0 [facility] Comment on above: Order Comment: Speci men Type: BLOOD SPECIMEN Ordering Facility: [facility] Address: [address] [address] Performed By: #### 5 8410-2 #### [facility] CLIA [id number] [address] Nucleated RBC (Bld) [#/Vol] 10*3/uL Normal <0.01 [facility] Comment on above: Order Comment: Speci men Type: BLOOD SPECIMEN Ordering Facility: [facility] Address: [address] [address] Performed By: #### 5 8410-2 #### [facility] CLIA [id number] [address] Platelet mean volume (Bld) [Entitic vol] 9.6 fL Normal 9.0-12.7 [facility] Comment on above: Order Comment: Speci men Type: BLOOD SPECIMEN Ordering Facility: [facility] Address: [address] [address] Performed By: #### 5 8410-2 #### [facility] CLIA [id number] [address] Platelets (Bld) [#/Vol] 284 10*3/uL Normal 150-400 [facility] Comment on above: Order Comment: Speci men Type: BLOOD SPECIMEN Ordering Facility: [facility] Address: [address] [place] [address] Performed By: #### 5 8410-2 #### [facility] CLIA [id number] [address] [place] RBC (Bld) [#/Vol] 5.10 10*6/uL Normal 3.90-5.20 [facility] Comment on above: Order Comment: Speci men Type: BLOOD SPECIMEN Ordering Facility: [facility] Address: [address] [address] Performed By: #### 5 8410-2 #### [facility] CLIA [id number] [address] [facility] WBC (Bld) [#/Vol] 8.04 10*3/uL Normal 3.70-11.00 [facility] Comment on above: Order Comment: Speci men Type: BLOOD SPECIMEN Ordering Facility: [facility] Address: [address] [address] Performed By: #### 5 8410-2 #### [facility] CLIA [id number] [address] [facility] Determination of erythrocyte mean corpuscular volume (MCV)Ordered By: Dr. Joseph on 02-26-2023 MCV (RBC) [Entitic vol] 91.1 fL 81-99 [facility] HISTORY PHYSICALon HISTORY PHYSICAL HNO ID: [id number] Author: Davie Rey MD Service: Hospital Medicine Author Type: Physician Type: HANDP Filed: 02/26/2023 6:32 PM Note Text: Hospital Medicine HPI Patient Name: Vishal George Admission Date: 02/26/2023 Reason For Admission:Ventricula r tachyarrhythmia (HCC) IMPRESSION AND PLAN: Principal Problem: Ventricular tachyarrhythmia (HCC) Active Problems: Coronary artery disease involving gambell coronary artery Hypertension Nicotine use disorder, F17.2 Acute on chronic combined systolic and diastolic CHF (congestive heart failure) (HCC) Tobacco abuse Resolved Problems: * No resolved hospital problems. * Active Hospital Problems Diagnosis Ventricular tachyarrhythmia (HCC) Nicotine use disorder, F17.2 Acute on chronic combined systolic and diastolic CHF (congestive heart failure) (HCC) Tobacco abuse Hypertension Coronary artery disease involving gambell coronary artery 1. Acute on chronic combined [...] CAD status post stent who presented to [facility] a few days ago for severe [...] plan to transition her to [facility]. Today there was a plan to discharge patient home but then she had a 34 run of V. tach/wide-complex tachycardia so decision was to transfer her to [facility] for ICD evaluation as [...] OSCOPY TRANS (more content not included)... Normal [facility] Hematocrit Auto (Bld) [Volum e fraction]Ordered By: Dr. Joseph on 02-26-2023 Hematocrit (Bld) [Volume fraction] 47.9 % 37-47 [facility] Laboratory - Chemistry and C hemistry - challengeOrdered By: Dr. Joseph on 02-26-2023 ALP [Catalytic activity/Vol] 76 U/L 45-117 [facility] ALT [Catalytic activity/Vol] 23 U/L 13-56 [facility] CO2 [Moles/Vol] 30.0 mmol/L 21.0-32.0 [facility] Globulin (S) [Mass/Vol] 3.5 g/dL 2.2-4.2 [facility] Urea nitrogen/Creatinine [Mass ratio] 20.8 mg/mg 10-20 [facility] Laboratory - Hematology and Cell countsOrdered By: Dr. Joseph on 02-26-2023 Erythrocyte distribution width (RBC) [Entitic vol] 42.2 fL 35.1-43.9 [facility] Erythrocyte distribution width (RBC) [Ratio] 12.6 % 11.6-14.6 [facility] MCH (RBC) [Entitic mass] 29.7 pg 27.0-32.0 [facility] MCHC Auto (RBC) [Mass/Vol]Or dered By: Dr. Joseph on 02-26-2023 MCHC (RBC) [Mass/Vol] 32.6 g/dL 32-36 [facility] No Panel InformationOrdered By: Dr. Joseph on 02-26-2023 Estimated Creatinine Clearance Calc 73.86 ml/min [facility] Estimated GFR (MDRD) Amer 115 mL/min >60 [facility] Comment on above: GFR Calc Estimated GFR (MDRD) Non-Af Amer 95 mL/min >60 [facility] Comment on above: Non- GFR Calc Platelets bldOrdered By: Dr. Joseph on 02-26-2023 Platelets (Bld) [#/Vol] 293 10*3/uL 150-450 [facility] Serum or plasma albumin virgie urement (mass/volume)Ordered By: Dr. Joseph on 02-26-2023 Albumin [Mass/Vol] 3.6 g/dL 3.2-5.0 [facility] Serum or plasma albumin/glob ulin mass ratioOrdered By: Dr. Joseph on 02-26-2023 Albumin/Globulin [Mass ratio] 1.0 {ratio} 0.9-2.4 [facility] Serum or plasma calcium virgie urement (mass/volume)Ordered By: Dr. Joseph on 02-26-2023 Calcium [Mass/Vol] 9.2 mg/dL 8.5-10.1 [facility] Serum or plasma creatinine m easurement (mass/volume)Ordered By: Dr. Joseph on 02-26-2023 Creatinine [Mass/Vol] 0.67 mg/dL 0.55-1.02 [facility] Comment on above: The validity of the calculated GFR & GFRAA in patients over 70 years has not been determined. Clinical correlation is essential. Serum or plasma urea nitroge n measurement (mass/volume)Ordered By: Dr. Joseph on 02-26-2023 Urea nitrogen [Mass/Vol] 14 mg/dL 7-18 [facility] Thin prep Papanicolaou smear with manual screeningOrdered By: Dr. Joseph on 02-26-2023 Thin prep Papanicolaou smear with manual screening 16 U/L 15-37 [facility] Thin prep Papanicolaou smear with manual screening 5 5-15 [facility] Laboratory - Chemistry and C hemistry - challengeOrdered By: Dr. Brunner on 02-25-2023 Magnesium [Mass/Vol] 1.9 mg/dL 1.6-2.6 [facility] No Panel InformationOrdered By: Dr. Brunner on 02-25-2023 Activated Clotting Time 251 sec 74-137 [facility] Absolute lymphocyte countOrd ered By: Dr. Brunner on 02-24-2023 Lymphocytes Auto (Unsp spec) [#/Vol] 1.61 10*3/uL 0.83-4.51 [facility] Basophil percentageOrdered B y: Dr. Brunner on 02-24-2023 Basophils/100 WBC (Bld) 1.0 % 0-1 [facility] Eosinophils/100 WBC (Bld) 2.0 % 0-5 [facility] Neutrophils (Bld) [#/Vol] 4.4 10*3/uL 2.0-7.7 [facility] Neutrophils/100 WBC (Bld) 63.9 % 47-70 [facility] Blood lymphocytes/100 leukoc ytesOrdered By: Dr. Brunner on 02-24-2023 Lymphocytes/100 WBC (Bld) 23.2 % 19-41 [facility] Blood monocytes/100 leukocyt esOrdered By: Dr. Brunner on 02-24-2023 Monocytes/100 WBC (Bld) 9.5 % 0-10 [facility] Laboratory - Hematology and Cell countsOrdered By: Dr. Brunner on 02-24-2023 Immature granulocytes/100 WBC (Bld) 0.400 % 0.0-0.9 [facility] Comment on above: IG% - Immature Granu locytes (promyelocytes, myelocytes and metamyelocytes) > 1% indicates that a LEFT SHIFT is Present. Nucleated RBC/100 WBC (Bld) [Ratio] 0 % 0-5 [facility] No Panel InformationOrdered By: Dr. Brunner on 02-24-2023 Thyroid Stimulating Hormone (TSH) 1.66 uIU/mL 0.358-3.74 [facility] Basophil percentageOrdered B y: Dr. Brunner on 02-23-2023 Cholesterol [Mass/Vol] 187 mg/dL <200 [facility] Comment on above: <200 mg/dL Desirable 200-240 mg/dL Borderline >240 mg/dL High Risk Triglyceride [Mass/Vol] 62 mg/dL <199 [facility] Comment on above: The drugs N-Acetylcy steine and Metamizole may falsely depress this assay.Serum Triglycerides Reference Interval Normal <150 mg/dL Borderline high 150 - 199 mg/dL High 200 - 499 mg/dL Very High > or = 500 mg/dL Laboratory - Chemistry and C hemistry - challengeOrdered By: Dr. Brunner on 02-23-2023 Natriuretic peptide B (Bld) [Mass/Vol] 1392.6 pg/mL 0-100 [facility] No Panel InformationOrdered By: Julio César Arndt on 02-23-2023 Streptococcus pneumoniae Antigen ([facility] No Panel InformationOrdered By: Dr. Arndt on 02-23-2023 Streptococcus pneumoniae Antigen ([facility] Serum or plasma cholesterol in HDL measurement (mass/volume)Ordered By: Dr. Brunner on 02-23-2023 Cholesterol in HDL [Mass/Vol] 40 mg/dL >40 [facility] Comment on above: The drugs N-Acetylcy steine and Metamizole may falsely depress this assay. Reference Range HDL <40 mg/dL Low HDL Cholesterol HDL >or= 60 mg/dL High HDL Cholesterol Serum or plasma cholesterol in VLDL measurement (mass/volume)Ordered By: Dr. Brunner on 02-23-2023 Cholesterol in VLDL [Mass/Vol] 12 mg/dL 5-40 [facility] Serum or plasma low density lipoprotein (LDL) cholesterol measurement (mass/volume)Ordered By: Dr. Brunner on 02-23-2023 Cholesterol in LDL [Mass/Vol] 135 mg/dL 0-130 [facility] Absolute lymphocyte countOrd ered By: Dr. Koehler on 02-22-2023 Lymphocytes Auto (Unsp spec) [#/Vol] 1.46 10*3/uL 0.83-4.51 [facility] Basophil percentageOrdered B y: Dr. Arndt on 02-22-2023 Basophil percentage 4.2 mg/dL 2.5-4.9 [facility] Basophil percentageOrdered B y: Dr. Burris on 02-22-2023 Lactate [Moles/Vol] 1.8 mmol/L 0.4-2.0 [facility] Lactate [Moles/Vol] 2.8 mmol/L 0.4-2.0 [facility] Comment on above: Critical Result(s) C alled at: 18:21:29 02/22/2023 by: SAMEERA CARRILLO TO MAYTE DUNNE. Results read back by same. Basophil percentageOrdered B y: Dr. Koehler on 02-22-2023 Basophils/100 WBC (Bld) 1.5 % 0-1 [facility] Bilirubin [Mass/Vol] 0.40 mg/dL 0.20-1.00 [facility] Comment on above: For patients on eltr ombopag therapy, use of Dimension [place] TBIL is not recommended. Chloride [Moles/Vol] 104 mmol/L 98-107 [facility] Eosinophils/100 WBC (Bld) 4.7 % 0-5 [facility] Glucose [Mass/Vol] 138 mg/dL 74-106 [facility] Comment on above: Fasting Glucose resu lt greater than or equal to 126 mg/dL suggests DIABETES MELLITUS per A.D.A. criteria. Neutrophils (Bld) [#/Vol] 7.0 10*3/uL 2.0-7.7 [facility] Neutrophils/100 WBC (Bld) 71.0 % 47-70 [facility] Potassium [Moles/Vol] 4.0 mmol/L 3.5-5.1 [facility] Protein [Mass/Vol] 7.7 g/dL 6.4-8.2 [facility] Sodium [Moles/Vol] 141 mmol/L 136-145 [facility] WBC (Bld) [#/Vol] 9.8 10*3/uL 4.4-11.0 [facility] Blood erythrocytes count (nu mber/volume)Ordered By: Dr. Koehler on 02-22-2023 RBC (Bld) [#/Vol] 5.30 10*6/uL 4.2-5.4 [facility] Blood hemoglobin measurement (mass/volume)Ordered By: Dr. Koehler on 02-22-2023 Hemoglobin (Bld) [Mass/Vol] 15.8 g/dL 12.0-15.0 [facility] Blood lymphocytes/100 leukoc ytesOrdered By: Dr. Koehler on 02-22-2023 Lymphocytes/100 WBC (Bld) 14.9 % 19-41 [facility] Blood monocytes/100 leukocyt esOrdered By: Dr. Koehler on 02-22-2023 Monocytes/100 WBC (Bld) 7.4 % 0-10 [facility] Blood platelet mean volumeOr dered By: Dr. Koehler on 02-22-2023 Platelet mean volume (Bld) [Entitic vol] 10.2 fL 6.2-12.0 [facility] Determination of erythrocyte mean corpuscular volume (MCV)Ordered By: Dr. Koehler on 02-22-2023 MCV (RBC) [Entitic vol] 93.2 fL 81-99 [facility] Hematocrit Auto (Bld) [Volum e fraction]Ordered By: Dr. Koehler on 02-22-2023 Hematocrit (Bld) [Volume fraction] 49.4 % 37-47 [facility] Laboratory - Chemistry and C hemistry - challengeOrdered By: Dr. Koehler on 02-22-2023 ALP [Catalytic activity/Vol] 80 U/L 45-117 [facility] ALT [Catalytic activity/Vol] 27 U/L 13-56 [facility] CO2 [Moles/Vol] 31.0 mmol/L 21.0-32.0 [facility] Globulin (S) [Mass/Vol] 3.6 g/dL 2.2-4.2 [facility] Lipase [Catalytic activity/Vol] 39 U/L 13-75 [facility] Comment on above: Please note:LIPASE r evised reference range effective 23. New Lipase methodology. Expected to produce lower values than the previous assay method. NEW Reference Range: 13 - 75 U/L Urea nitrogen/Creatinine [Mass ratio] 14.9 mg/mg 10-20 [facility] Laboratory - Hematology and Cell countsOrdered By: Dr. Koehler on 02-22-2023 Erythrocyte distribution width (RBC) [Entitic vol] 44.7 fL 35.1-43.9 [facility] Erythrocyte distribution width (RBC) [Ratio] 13.1 % 11.6-14.6 [facility] Immature granulocytes/100 WBC (Bld) 0.500 % 0.0-0.9 [facility] Comment on above: IG% - Immature Granu locytes (promyelocytes, myelocytes and metamyelocytes) > 1% indicates that a LEFT SHIFT is Present. MCH (RBC) [Entitic mass] 29.8 pg 27.0-32.0 [facility] Nucleated RBC/100 WBC (Bld) [Ratio] 0 % 0-5 [facility] Laboratory - Microbiology an d Antimicrobial susceptibilityOrdered By: Julio César Arndt on 02-22-2023 Bacteria identified Cx Nom (Bld) No growth in 5 days. [facility] MCHC Auto (RBC) [Mass/Vol]Or dered By: Dr. Koehler on 02-22-2023 MCHC (RBC) [Mass/Vol] 32.0 g/dL 32-36 [facility] No Panel InformationOrdered By: Dr. Burris on 02-22-2023 Troponin I High Sensitivity 15 pg/mL 3.0-54.0 [facility] Comment on above: Please Note: New [place] t Units and Gender Specific Reference Ranges. For more information see Policy Stat Procedure [place] High Sensitivity Troponin (TNIH) and attachments. No Panel InformationOrdered By: Dr. Koehler on 02-22-2023 Estimated Creatinine Clearance Calc 56.88 ml/min [facility] Estimated GFR (MDRD) Amer 85 mL/min >60 [facility] Comment on above: GFR Calc Estimated GFR (MDRD) Non-Af Amer 70 mL/min >60 [facility] Comment on above: Non- GFR Calc Platelets bldOrdered By: Dr. Koehler on 02-22-2023 Platelets (Bld) [#/Vol] 331 10*3/uL 150-450 [facility] Serum or plasma albumin virgie urement (mass/volume)Ordered By: Dr. Koehler on 02-22-2023 Albumin [Mass/Vol] 4.1 g/dL 3.2-5.0 [facility] Serum or plasma albumin/glob ulin mass ratioOrdered By: Dr. Koehler on 02-22-2023 Albumin/Globulin [Mass ratio] 1.1 {ratio} 0.9-2.4 [facility] Serum or plasma calcium virgie urement (mass/volume)Ordered By: Dr. Koehler on 02-22-2023 Calcium [Mass/Vol] 10.1 mg/dL 8.5-10.1 [facility] Serum or plasma creatinine m easurement (mass/volume)Ordered By: Dr. Koehler on 02-22-2023 Creatinine [Mass/Vol] 0.87 mg/dL 0.55-1.02 [facility] Comment on above: The validity of the calculated GFR & GFRAA in patients over 70 years has not been determined. Clinical correlation is essential. Serum or plasma urea nitroge n measurement (mass/volume)Ordered By: Dr. Koehler on 02-22-2023 Urea nitrogen [Mass/Vol] 13 mg/dL 7-18 [facility] Thin prep Papanicolaou smear with manual screeningOrdered By: Dr. Koehler on 02-22-2023 Thin prep Papanicolaou smear with manual screening 20 U/L 15-37 [facility] Thin prep Papanicolaou smear with manual screening 6 5-15 [facility] Whole blood hemoglobin A1c/t otal hemoglobin ratio (mass fraction)Ordered By: Dr. Brunner on 02-22-2023 HbA1c (Bld) [Mass fraction] 5.7 % 3.8-5.6 [facility] Comment on above: Normal < 5.7 % Predi abetic 5.7 - 6.4 % Diabetic >or= 6.5 % Please note range changes. Basophil percentageOrdered B y: Ricki Griffin on 02-08-2023 Bilirubin [Mass/Vol] 0.30 mg/dL 0.20-1.00 [facility] Comment on above: For patients on eltr ombopag therapy, use of Dimension [place] TBIL is not recommended. Chloride [Moles/Vol] 100 mmol/L 98-107 [facility] Glucose [Mass/Vol] 105 mg/dL 74-106 [facility] Comment on above: Fasting Glucose resu lt from 100 to 125 mg/dL suggests IMPAIRED HOMEOSTASIS per A.D.A. criteria. Potassium [Moles/Vol] 3.8 mmol/L 3.5-5.1 [facility] Protein [Mass/Vol] 7.3 g/dL 6.4-8.2 [facility] Sodium [Moles/Vol] 134 mmol/L 136-145 [facility] WBC (Bld) [#/Vol] 6.4 10*3/uL 4.4-11.0 [facility] Blood erythrocytes count (nu mber/volume)Ordered By: Ricki Griffin on 02-08-2023 RBC (Bld) [#/Vol] 5.25 10*6/uL 4.2-5.4 [facility] Blood hemoglobin measurement (mass/volume)Ordered By: Ricki Griffin on 02-08-2023 Hemoglobin (Bld) [Mass/Vol] 15.9 g/dL 12.0-15.0 [facility] Blood platelet mean volumeOr dered By: Ricki Griffin on 02-08-2023 Platelet mean volume (Bld) [Entitic vol] 9.4 fL 6.2-12.0 [facility] Determination of erythrocyte mean corpuscular volume (MCV)Ordered By: Ricki Griffin on 02-08-2023 MCV (RBC) [Entitic vol] 91.4 fL 81-99 [facility] Hematocrit Auto (Bld) [Volum e fraction]Ordered By: Ricki Griffin on 02-08-2023 Hematocrit (Bld) [Volume fraction] 48.0 % 37-47 [facility] Laboratory - Chemistry and C hemistry - challengeOrdered By: Ricki Griffin on 02-08-2023 ALP [Catalytic activity/Vol] 82 U/L 45-117 [facility] ALT [Catalytic activity/Vol] 29 U/L 13-56 [facility] CO2 [Moles/Vol] 30.0 mmol/L 21.0-32.0 [facility] Globulin (S) [Mass/Vol] 3.4 g/dL 2.2-4.2 [facility] Urea nitrogen/Creatinine [Mass ratio] 26.5 mg/mg 10-20 [facility] Laboratory - Hematology and Cell countsOrdered By: Ricki Griffin on 02-08-2023 Erythrocyte distribution width (RBC) [Entitic vol] 45.6 fL 35.1-43.9 [facility] Erythrocyte distribution width (RBC) [Ratio] 13.5 % 11.6-14.6 [facility] MCH (RBC) [Entitic mass] 30.3 pg 27.0-32.0 [facility] MCHC Auto (RBC) [Mass/Vol]Or dered By: Ricki Griffin on 02-08-2023 MCHC (RBC) [Mass/Vol] 33.1 g/dL 32-36 [facility] No Panel InformationOrdered By: Ricki Griffin on 02-08-2023 Estimated GFR (MDRD) Amer 100 mL/min >60 [facility] Comment on above: GFR Calc Estimated GFR (MDRD) Non-Af Amer 83 mL/min >60 [facility] Comment on above: Non- GFR Calc Troponin I High Sensitivity 32 pg/mL 3.0-54.0 [facility] Comment on above: Please Note: New [place] Units and Gender Specific Reference Ranges. For more information see Policy Stat Procedure [place] High Sensitivity Troponin (TNIH) and attachments. Platelets bldOrdered By: Godfrey Griffin on 02-08-2023 Platelets (Bld) [#/Vol] 299 10*3/uL 150-450 [facility] Serum or plasma C reactive p rotein measurement (mass/volume)Ordered By: Ricki Griffin on 02-08-2023 CRP [Mass/Vol] mg/L 0.0-3.0 [facility] Comment on above: C-Reactive Protein ( CRP) provides useful information for thediagnosis, therapy and monitoring of inflammatory processesand associated diseases. For the evaluation of Relative Riskfor Cardiovascular Disease, a High Sensitivity CRP (HSCRP)should be ordered. Serum or plasma albumin virgie urement (mass/volume)Ordered By: Ricki Griffin on 02-08-2023 Albumin [Mass/Vol] 3.9 g/dL 3.2-5.0 [facility] Serum or plasma albumin/glob ulin mass ratioOrdered By: Ricki Griffin on 02-08-2023 Albumin/Globulin [Mass ratio] 1.1 {ratio} 0.9-2.4 [facility] Serum or plasma calcium virgie urement (mass/volume)Ordered By: Ricki Griffin on 02-08-2023 Calcium [Mass/Vol] 9.6 mg/dL 8.5-10.1 [facility] Serum or plasma creatinine m easurement (mass/volume)Ordered By: Ricki Griffin on 02-08-2023 Creatinine [Mass/Vol] 0.76 mg/dL 0.55-1.02 [facility] Comment on above: The validity of the calculated GFR & GFRAA in patients over 70 years has not been determined. Clinical correlation is essential. Serum or plasma urea nitroge n measurement (mass/volume)Ordered By: Ricki Griffin on 02-08-2023 Urea nitrogen [Mass/Vol] 20 mg/dL 7-18 [facility] Thin prep Papanicolaou smear with manual screeningOrdered By: Ricki Griffin on 02-08-2023 Thin prep Papanicolaou smear with manual screening 17 U/L 15-37 [facility] Thin prep Papanicolaou smear with manual screening 4 -15 [facility] RESCVIDon 09-23-2022 Adenovirus Not detected Normal Not Detected [facility] ([place]) Comment on above: Performed By: #### R ESCVID #### [address] [address] Bordetella Parapertussis Not detected Normal Not Detected [facility] ([place]) Comment on above: Performed By: #### R ESCVID #### [place] [address] Bordetella Pertussis Not detected Normal Not Detected [facility] ([place]) Comment on above: Performed By: #### R ESCVID #### [address] [address] Chlamydophila pneumoniae Not detected Normal Not Detected [facility] ([place]) Comment on above: Performed By: #### R ESCVID #### [place] [id number] Coronavirus 229E (Not COVID-19) Not detected Normal Not Detected [facility] ([place]) Comment on above: Performed By: #### R ESCVID #### [place] [id number] Coronavirus HKU1 (Not COVID-19) Not detected Normal Not Detected [facility] ([place]) Comment on above: Performed By: #### R ESCVID #### [place] [id number] Coronavirus NL63 (Not COVID-19) Not detected Normal Not Detected [facility] ([place]) Comment on above: Performed By: #### R ESCVID #### [address] [address] Coronavirus OC43 (Not COVID-19) Not detected Normal Not Detected [facility] ([place]) Comment on above: Performed By: #### R ESCVID #### [address] [address] Human Metapneumovirus Not detected Normal Not Detected [facility] ([place]) Comment on above: Performed By: #### R ESCVID #### [facility] [address] [place] [address] Influenza A Not detected Normal Not Detected [facility] ([place]) Comment on above: Performed By: #### R ESCVID #### [facility] [address] [place] [address] Influenza B Not detected Normal Not Detected [facility] ([place]) Comment on above: Performed By: #### R ESCVID #### [facility] [address] [place] [address] Mycoplasma pneumoniae Not detected Normal Not Detected [facility] ([place]) Comment on above: Performed By: #### R ESCVID #### [facility] [address] [place] [address] Parainfluenza 1 Not detected Normal Not Detected [facility] ([place]) Comment on above: Performed By: #### R ESCVID #### [facility] [address] [place] [address] Parainfluenza 2 Not detected Normal Not Detected [facility] ([place]) Comment on above: Performed By: #### R ESCVID #### [facility] [address] [place] [address] Parainfluenza 3 Not detected Normal Not Detected [facility] ([place]) Comment on above: Performed By: #### R ESCVID #### [facility] [address] [place] [address] Parainfluenza 4 Not detected Normal Not Detected [facility] ([place]) Comment on above: Performed By: #### R ESCVID #### [facility] [address] [place] [address] Respiratory Syncytial Virus Not detected Normal Not Detected [facility] ([place]) Comment on above: Performed By: #### R ESCVID #### [facility] [address] [place] [address] Rhinovirus/Enterovirus Detected Abnormal Not Detected [facility] ([place]) Comment on above: Performed By: #### R ESCVID #### [facility] [address] [place] [address] SARS-CoV-2 (COVID-19) RNA FERCHO+probe Ql (Unsp spec) Not detected Normal Not Detected [facility] ([place]) Comment on above: Result Comment: This test is being used under the FDA EUA procedure. This assay has been validated in the [facility] for use with nasopharyngeal specimens in [facility]. If a non-validated specimen or test collection [...] authorities. Performed By: #### R ESCVID #### [place] [address] LABORATORYOrdered By: Jere Gunderson on 09-21-2022 Adenovirus DNA FERCHO+non-probe Ql (Nph) Not Detected *NA* (09/21/22 5:46 PM) Invalid Interpretation Code Not Detected AH Auto Viro/Sero SS B. parapertussis [id number] DNA FERCHO+non-probe Ql (Nph) Not Detected *NA* [...] AH Auto Viro/Sero SS JON SCREENINGon 08-14-2022 [facility] SURGICAL PATHOLOGYon Case Report Surgical Pathology Report Case: [id number] Authorizing Provider: Sony Cedeño MD Collected: 08/09/2022 11:36 AM Ordering Location: Ambulatory Surgery Received: 08/09/2022 04:53 PM Pathologist: Sony Prater MD Specimens: A) - DUODENUM BIOPSY B) - ANTRUM (STOMACH) BIOPSY, Antral bx for H/H C) - ESOPHAGUS BIOPSY, distal esophagus bx [facility] FINAL DIAGNOSIS A. Duodenum, biopsy: - Duodenal mucosa with no significant pathologic abnormality. B. Stomach, biopsy: - Gastric mucosa with no significant pathologic abnormality. C. Distal esophagus, biopsy: - Squamous mucosa with mild reactive changes. [facility] Gross Description A. DUODENUM BIOPSY Received [...] in one cassette. Gross examination performed at [facility], [address] [place] [address] JT 08/09/2022 11:51 PM [facility] Performing Lab Diagnostic interpretation performed at [facility], [address] [place] [address] CLIA# [id number] Suede Cleaner: Bart Madsen M.D. [facility] EGD DIAGNOSTICon 08-09-2022 [facility] Absolute lymphocyte countOrd ered By: Dr. Rain on 07-14-2022 Lymphocytes Auto (Unsp spec) [#/Vol] 1.11 10*3/uL 0.83-4.51 [facility] Basophil percentageOrdered B y: Dr. Rain on 07-14-2022 Basophils/100 WBC (Bld) 0.7 % 0-1 [facility] Bilirubin [Mass/Vol] 0.90 mg/dL 0.20-1.00 [facility] Comment on above: For patients on eltr ombopag therapy, use of Dimension [place] TBIL is not recommended. Chloride [Moles/Vol] 103 mmol/L 98-107 [facility] Eosinophils/100 WBC (Bld) 0.3 % 0-5 [facility] Glucose [Mass/Vol] 165 mg/dL 74-106 [facility] Comment on above: Fasting Glucose resu lt greater than or equal to 126 mg/dL suggests DIABETES MELLITUS per A.D.A. criteria. Neutrophils (Bld) [#/Vol] 8.0 10*3/uL 2.0-7.7 [facility] Neutrophils/100 WBC (Bld) 78.8 % 47-70 [facility] Potassium [Moles/Vol] 3.3 mmol/L 3.5-5.1 [facility] Protein [Mass/Vol] 8.2 g/dL 6.4-8.2 [facility] Sodium [Moles/Vol] 140 mmol/L 136-145 [facility] WBC (Bld) [#/Vol] 10.2 10*3/uL 4.4-11.0 [facility] Blood erythrocytes count (nu mber/volume)Ordered By: Dr. Rain on 07-14-2022 RBC (Bld) [#/Vol] 5.25 10*6/uL 4.2-5.4 [facility] Blood hemoglobin measurement (mass/volume)Ordered By: Dr. Rain on 07-14-2022 Hemoglobin (Bld) [Mass/Vol] 15.8 g/dL 12.0-15.0 [facility] Blood lymphocytes/100 leukoc ytesOrdered By: Dr. Rain on 07-14-2022 Lymphocytes/100 WBC (Bld) 10.9 % 19-41 [facility] Blood monocytes/100 leukocyt esOrdered By: Dr. Rain on 07-14-2022 Monocytes/100 WBC (Bld) 8.8 % 0-10 [facility] Blood platelet mean volumeOr dered By: Dr. Rain on 07-14-2022 Platelet mean volume (Bld) [Entitic vol] 9.9 fL 6.2-12.0 [facility] Determination of erythrocyte mean corpuscular volume (MCV)Ordered By: Dr. Rain on 07-14-2022 MCV (RBC) [Entitic vol] 87.2 fL 81-99 [facility] Hematocrit Auto (Bld) [Volum e fraction]Ordered By: Dr. Rain on 07-14-2022 Hematocrit (Bld) [Volume fraction] 45.8 % 37-47 [facility] Laboratory - Chemistry and C hemistry - challengeOrdered By: Dr. Rain on 07-14-2022 ALP [Catalytic activity/Vol] 90 U/L 45-117 [facility] ALT [Catalytic activity/Vol] 31 U/L 13-56 [facility] CO2 [Moles/Vol] 24.0 mmol/L 21.0-32.0 [facility] Globulin (S) [Mass/Vol] 3.6 g/dL 2.2-4.2 [facility] Lipase [Catalytic activity/Vol] 108 U/L 73-393 [facility] Urea nitrogen/Creatinine [Mass ratio] 15.2 mg/mg 10-20 [facility] Laboratory - Hematology and Cell countsOrdered By: Dr. Rain on 07-14-2022 Erythrocyte distribution width (RBC) [Entitic vol] 40.8 fL 35.1-43.9 [facility] Erythrocyte distribution width (RBC) [Ratio] 12.8 % 11.6-14.6 [facility] Immature granulocytes/100 WBC (Bld) 0.500 % 0.0-0.9 [facility] Comment on above: IG% - Immature Granu locytes (promyelocytes, myelocytes and metamyelocytes) > 1% indicates that a LEFT SHIFT is Present. MCH (RBC) [Entitic mass] 30.1 pg 27.0-32.0 [facility] Nucleated RBC/100 WBC (Bld) [Ratio] 0 % 0-5 [facility] MCHC Auto (RBC) [Mass/Vol]Or dered By: Dr. Rain on 07-14-2022 MCHC (RBC) [Mass/Vol] 34.5 g/dL 32-36 [facility] No Panel InformationOrdered By: Dr. Rain on 07-14-2022 Estimated Creatinine Clearance Calc 47.79 ml/min [facility] Estimated GFR (MDRD) Amer 74 mL/min >60 [facility] Comment on above: GFR Calc Estimated GFR (MDRD) Non-Af Amer 61 mL/min >60 [facility] Comment on above: Non- GFR Calc Platelets bldOrdered By: Dr. Rain on 07-14-2022 Platelets (Bld) [#/Vol] 334 10*3/uL 150-450 [facility] Serum or plasma albumin virgie urement (mass/volume)Ordered By: Dr. Rain on 07-14-2022 Albumin [Mass/Vol] 4.6 g/dL 3.2-5.0 [facility] Serum or plasma albumin/glob ulin mass ratioOrdered By: Dr. Rain on 07-14-2022 Albumin/Globulin [Mass ratio] 1.3 {ratio} 0.9-2.4 [facility] Serum or plasma calcium virgie urement (mass/volume)Ordered By: Dr. Rain on 07-14-2022 Calcium [Mass/Vol] 10.6 mg/dL 8.5-10.1 [facility] Serum or plasma creatinine m easurement (mass/volume)Ordered By: Dr. Rain on 07-14-2022 Creatinine [Mass/Vol] 0.99 mg/dL 0.55-1.02 [facility] Comment on above: The validity of the calculated GFR & GFRAA in patients over 70 years has not been determined. Clinical correlation is essential. Serum or plasma urea nitroge n measurement (mass/volume)Ordered By: Dr. Rain on 07-14-2022 Urea nitrogen [Mass/Vol] 15 mg/dL 7-18 [facility] Thin prep Papanicolaou smear with manual screeningOrdered By: Dr. Rain on 07-14-2022 Thin prep Papanicolaou smear with manual screening 23 U/L 15-37 [facility] Thin prep Papanicolaou smear with manual screening 13 5-15 [facility] Absolute lymphocyte countOrd ered By: Dr. Monae on 07-12-2022 Lymphocytes Auto (Unsp spec) [#/Vol] 1.10 10*3/uL 0.83-4.51 [facility] Basophil percentageOrdered B y: Dr. Monae on 07-12-2022 Basophil percentage 0 SEEN /hpf 0-5 [facility] Basophils/100 WBC (Bld) 0.5 % 0-1 [facility] Bilirubin [Mass/Vol] 0.60 mg/dL 0.20-1.00 [facility] Comment on above: For patients on eltr ombopag therapy, use of Dimension [place] TBIL is not recommended. Chloride [Moles/Vol] 105 mmol/L 98-107 [facility] Eosinophils/100 WBC (Bld) 0.7 % 0-5 [facility] Glucose [Mass/Vol] 170 mg/dL 74-106 [facility] Comment on above: Fasting Glucose resu lt greater than or equal to 126 mg/dL suggests DIABETES MELLITUS per A.D.A. criteria. Lactate [Moles/Vol] 2.0 mmol/L 0.4-2.0 [facility] Comment on above: Critical Result(s) C alled at: 12:36:42 07/12/2022 by: Lissette Prieto. Ish Lam RN (ER). Results read back by same. Neutrophils (Bld) [#/Vol] 7.4 10*3/uL 2.0-7.7 [facility] Neutrophils/100 WBC (Bld) 78.8 % 47-70 [facility] Potassium [Moles/Vol] 3.7 mmol/L 3.5-5.1 [facility] Protein [Mass/Vol] 8.1 g/dL 6.4-8.2 [facility] Sodium [Moles/Vol] 141 mmol/L 136-145 [facility] WBC (Bld) [#/Vol] 9.4 10*3/uL 4.4-11.0 [facility] Bilirubin Test strip Ql (U)O rdered By: Dr. Monae on 07-12-2022 Bilirubin Ql (U) Negative Negative [facility] Blood erythrocytes count (nu mber/volume)Ordered By: Dr. Monae on 07-12-2022 RBC (Bld) [#/Vol] 5.34 10*6/uL 4.2-5.4 [facility] Blood hemoglobin measurement (mass/volume)Ordered By: Dr. Monae on 07-12-2022 Hemoglobin (Bld) [Mass/Vol] 15.9 g/dL 12.0-15.0 [facility] Blood lymphocytes/100 leukoc ytesOrdered By: Dr. Monae on 07-12-2022 Lymphocytes/100 WBC (Bld) 11.8 % 19-41 [facility] Blood monocytes/100 leukocyt esOrdered By: Dr. Monae on 07-12-2022 Monocytes/100 WBC (Bld) 7.7 % 0-10 [facility] Blood platelet mean volumeOr dered By: Dr. Monae on 07-12-2022 Platelet mean volume (Bld) [Entitic vol] 9.4 fL 6.2-12.0 [facility] Determination of erythrocyte mean corpuscular volume (MCV)Ordered By: Dr. Monae on 07-12-2022 MCV (RBC) [Entitic vol] 89.3 fL 81-99 [facility] Hematocrit Auto (Bld) [Volum e fraction]Ordered By: Dr. Moane on 07-12-2022 Hematocrit (Bld) [Volume fraction] 47.7 % 37-47 [facility] Ketones Test strip Ql (U)Ord ered By: Dr. Monae on 07-12-2022 Ketones Ql (U) 5 mg/dl Negative [facility] Laboratory - Chemistry and C hemistry - challengeOrdered By: Dr. Monae on 07-12-2022 ALP [Catalytic activity/Vol] 95 U/L 45-117 [facility] ALT [Catalytic activity/Vol] 31 U/L 13-56 [facility] CO2 [Moles/Vol] 27.0 mmol/L 21.0-32.0 [facility] Globulin (S) [Mass/Vol] 3.7 g/dL 2.2-4.2 [facility] Lipase [Catalytic activity/Vol] 110 U/L 73-393 [facility] Urea nitrogen/Creatinine [Mass ratio] 12.6 mg/mg 10-20 [facility] Laboratory - Hematology and Cell countsOrdered By: Dr. Monae on 07-12-2022 Erythrocyte distribution width (RBC) [Entitic vol] 42.6 fL 35.1-43.9 [facility] Erythrocyte distribution width (RBC) [Ratio] 13.0 % 11.6-14.6 [facility] Immature granulocytes/100 WBC (Bld) 0.500 % 0.0-0.9 [facility] Comment on above: IG% - Immature Granu locytes (promyelocytes, myelocytes and metamyelocytes) > 1% indicates that a LEFT SHIFT is Present. MCH (RBC) [Entitic mass] 29.8 pg 27.0-32.0 [facility] Nucleated RBC/100 WBC (Bld) [Ratio] 0 % 0-5 [facility] MCHC Auto (RBC) [Mass/Vol]Or dered By: Dr. Monae on 07-12-2022 MCHC (RBC) [Mass/Vol] 33.3 g/dL 32-36 [facility] Mucus LM Ql (Urine sed)Order ed By: Dr. Monae on 07-12-2022 Mucus Ql (Urine sed) 0 SEEN /hpf [facility] Nitrite Test strip Ql (U)Ord ered By: Dr. Monae on 07-12-2022 Nitrite Ql (U) Negative Negative [facility] No Panel InformationOrdered By: Dr. Monae on 07-12-2022 Estimated Creatinine Clearance Calc 45.94 ml/min [facility] Estimated GFR (MDRD) Amer 70 mL/min >60 [facility] Comment on above: GFR Calc Estimated GFR (MDRD) Non-Af Amer 58 mL/min >60 [facility] Comment on above: Non- GFR Calc Platelets bldOrdered By: Dr. Monae on 07-12-2022 Platelets (Bld) [#/Vol] 322 10*3/uL 150-450 [facility] Protein Test strip Ql (U)Ord ered By: Dr. Monae on 07-12-2022 Protein Ql (U) Negative Negative [facility] Serum or plasma albumin virgie urement (mass/volume)Ordered By: Dr. Monae on 07-12-2022 Albumin [Mass/Vol] 4.4 g/dL 3.2-5.0 [facility] Serum or plasma albumin/glob ulin mass ratioOrdered By: Dr. Monae on 07-12-2022 Albumin/Globulin [Mass ratio] 1.2 {ratio} 0.9-2.4 [facility] Serum or plasma calcium virgie urement (mass/volume)Ordered By: Dr. Monae on 07-12-2022 Calcium [Mass/Vol] 10.1 mg/dL 8.5-10.1 [facility] Serum or plasma creatinine m easurement (mass/volume)Ordered By: Dr. Monae on 07-12-2022 Creatinine [Mass/Vol] 1.03 mg/dL 0.55-1.02 [facility] Comment on above: The validity of the calculated GFR & GFRAA in patients over 70 years has not been determined. Clinical correlation is essential. Serum or plasma urea nitroge n measurement (mass/volume)Ordered By: Dr. Monae on 07-12-2022 Urea nitrogen [Mass/Vol] 13 mg/dL 7-18 [facility] Squamous epithelial cells de tection in urine sediment by light microscopyOrdered By: Dr. Monae on 07-12-2022 Epithelial cells.squamous LM Ql (Urine sed) 0-5 SEEN /hpf 5-10 [facility] Thin prep Papanicolaou smear with manual screeningOrdered By: Dr. Monae on 07-12-2022 Thin prep Papanicolaou smear with manual screening 21 U/L 15-37 [facility] Thin prep Papanicolaou smear with manual screening 9 5-15 [facility] Urine blood detectionOrdered By: Dr. Monae on 07-12-2022 RBC Ql (U) 10 /ul Negative [facility] RBC Ql (U) 0-5 SEEN /hpf 0-5 [facility] Urine clarityOrdered By: Dr. Monae on 07-12-2022 Clarity (U) Clear Clear [facility] Urine color determinationOrd ered By: Dr. Monae on 07-12-2022 Color (U) Yellow Yellow [facility] Urine glucose detectionOrder ed By: Dr. Monae on 07-12-2022 Glucose Ql (U) Normal mg/dl Normal [facility] Urine leukocyte esterase det ection by dipstickOrdered By: Dr. Monae on 07-12-2022 Leukocyte esterase Test strip Ql (U) Negative Negative [facility] Urine pHOrdered By: Dr. Ann nails on 07-12-2022 pH (U) 7.0 [pH] 5.0 - 8.0 [facility] Urine sediment bacteria coun t by microscopy (number/high power field)Ordered By: Dr. Monae on 07-12-2022 Bacteria LM.HPF (Urine sed) [#/Area] 0 /[HPF] None Seen [facility] Urine specific gravity measu rementOrdered By: Dr. Monae on 07-12-2022 Specific gravity (U) [Rel density] 1.010 1.002-1.030 [facility] Urobilinogen Auto test strip Ql (U)Ordered By: Dr. Monae on 07-12-2022 Urobilinogen Ql (U) Normal mg/dl Normal [facility] Basophil percentageon 2021 Bilirubin [Mass/Vol] 0.40 mg/dL 0.20-1.00 [facility] Work Phone: Comment on above: For patients on eltr ombopag therapy, use of Dimension [place] TBIL is not recommended. Chloride [Moles/Vol] 102 mmol/L 98-107 [facility] Work Phone: Cholesterol [Mass/Vol] 160 mg/dL <200 [facility] Work Phone: Comment on above: <200 mg/dL Desirable 200-240 mg/dL Borderline >240 mg/dL High Risk Glucose [Mass/Vol] 102 mg/dL 74-106 [facility] Work Phone: Comment on above: Fasting Glucose resu lt from 100 to 125 mg/dL suggests IMPAIRED HOMEOSTASIS per A.D.A. criteria. Potassium [Moles/Vol] 4.0 mmol/L 3.5-5.1 [facility] Work Phone: Protein [Mass/Vol] 7.1 g/dL 6.4-8.2 [facility] Work Phone: Sodium [Moles/Vol] 137 mmol/L 136-145 [facility] Work Phone: Triglyceride [Mass/Vol] 141 mg/dL <199 [facility] Work Phone: Comment on above: The drugs N-Acetylcy steine and Metamizole may falsely depress this assay.Serum Triglycerides Reference Interval Normal <150 mg/dL Borderline high 150 - 199 mg/dL High 200 - 499 mg/dL Very High > or = 500 mg/dL WBC (Bld) [#/Vol] 5.8 10*3/uL 4.4-11.0 [facility] Work Phone: [phone] Blood erythrocytes count (nu mber/volume)on 03-31-2022 RBC (Bld) [#/Vol] 5.11 10*6/uL 4.2-5.4 [facility] Work Phone: [phone] Blood hemoglobin measurement (mass/volume)on 03-31-2022 Hemoglobin (Bld) [Mass/Vol] 15.2 g/dL 12.0-15.0 [facility] Work Phone: [phone] Blood platelet mean volumeon 03-31-2022 Platelet mean volume (Bld) [Entitic vol] 9.4 fL 6.2-12.0 [facility] Work Phone: [phone] Determination of erythrocyte mean corpuscular volume (MCV)on 03-31-2022 MCV (RBC) [Entitic vol] 88.5 fL 81-99 [facility] Work Phone: [phone] Hematocrit Auto (Bld) [Volum e fraction]on 03-31-2022 Hematocrit (Bld) [Volume fraction] 45.2 % 37-47 [facility] Work Phone: [phone] Laboratory - Chemistry and C hemistry - challengeon 03-31-2022 ALP [Catalytic activity/Vol] 98 U/L 45-117 [facility] Work Phone: [phone] ALT [Catalytic activity/Vol] 37 U/L 13-56 [facility] Work Phone: [phone] CO2 [Moles/Vol] 29.0 mmol/L 21.0-32.0 [facility] Work Phone: [phone] Globulin (S) [Mass/Vol] 3.5 g/dL 2.2-4.2 [facility] Work Phone: [phone] Urea nitrogen/Creatinine [Mass ratio] 17.1 mg/mg 10-20 [facility] Work Phone: [phone] Laboratory - Hematology and Cell countson 03-31-2022 Erythrocyte distribution width (RBC) [Entitic vol] 41.4 fL 35.1-43.9 [facility] Work Phone: [phone] Erythrocyte distribution width (RBC) [Ratio] 12.5 % 11.6-14.6 [facility] Work Phone: [phone] MCH (RBC) [Entitic mass] 29.7 pg 27.0-32.0 [facility] Work Phone: [phone] MCHC Auto (RBC) [Mass/Vol]on 03-31-2022 MCHC (RBC) [Mass/Vol] 33.6 g/dL 32-36 [facility] Work Phone: [phone] Panel Informationon 03-31 Estimated GFR (MDRD) Amer 100 mL/min >60 [facility] Work Phone: [phone] Comment on above: GFR Calc Estimated GFR (MDRD) Non-Af Amer 82 mL/min >60 [facility] Work Phone: [phone] Comment on above: Non- GFR Calc Vitamin D 25-Hydroxy 47.8 ng/mL [facility] Work Phone: [phone] Comment on above: Vitamin D 25(OH) Sta tus Range Deficiency <20 ng/mL (50nmol/L) Insufficiency 20 - 30 ng/mL (50 - 75 nmol/L) Sufficiency 30 - 100 ng/mL (75 - 250 nmol/L) Toxicity >100 ng/mL (>250 nmol/L) Platelets bldon 03-31-2022 Platelets (Bld) [#/Vol] 307 10*3/uL 150-450 [facility] Work Phone: [phone] Serum or plasma albumin virgie urement (mass/volume)on 03-31-2022 Albumin [Mass/Vol] 3.6 g/dL 3.2-5.0 [facility] Work Phone: [phone] Serum or plasma albumin/glob ulin mass ratioon 03-31-2022 Albumin/Globulin [Mass ratio] 1.0 {ratio} 0.9-2.4 [facility] Work Phone: Serum or plasma calcium virgie urement (mass/volume)on 03-31-2022 Calcium [Mass/Vol] 8.9 mg/dL 8.5-10.1 [facility] Work Phone: [phone] Serum or plasma cholesterol in HDL measurement (mass/volume)on 03-31-2022 Cholesterol in HDL [Mass/Vol] 38 mg/dL >40 [facility] Work Phone: Comment on above: The drugs N-Acetylcy steine and Metamizole may falsely depress this assay. Reference Range HDL <40 mg/dL Low HDL Cholesterol HDL >or= 60 mg/dL High HDL Cholesterol Serum or plasma cholesterol in VLDL measurement (mass/volume)on 03-31-2022 Cholesterol in VLDL [Mass/Vol] 28 mg/dL 5-40 [facility] Work Phone: [phone] Serum or plasma creatinine m easurement (mass/volume)on 03-31-2022 Creatinine [Mass/Vol] 0.76 mg/dL 0.55-1.02 [facility] Work Phone: Comment on above: The validity of the calculated GFR & GFRAA in patients over 70 years has not been determined. Clinical correlation is essential. Serum or plasma low density lipoprotein (LDL) cholesterol measurement (mass/volume)on 03-31-2022 Cholesterol in LDL [Mass/Vol] 94 mg/dL 0-130 [facility] Work Phone: [phone] Serum or plasma urea nitroge n measurement (mass/volume)on 03-31-2022 Urea nitrogen [Mass/Vol] 13 mg/dL 7-18 [facility] Work Phone: [phone] Thin prep Papanicolaou smear with manual screeningon 03-31-2022 Thin prep Papanicolaou smear with manual screening 21 U/L 15-37 [facility] Work Phone: [phone] Thin prep Papanicolaou smear with manual screening 6 5-15 [facility] Work Phone: Vital Signs Date Time Vital Sign Value Performing Clinician Facility 07-26-2025 11:45-0400 Diastolic Blood Pressure Non-Invasive 64 mm[Hg] DR JAMES GR MD [facility] 07-26-2025 11:45-0400 Heart rate 76 /min DR JAMES GR MD [facility] 07-26-2025 11:45-0400 Respiratory rate 21 /min DR JAMES GR MD [facility] 07-26-2025 11:45-0400 Systolic Blood Pressure Non-Invasive 115 mm[Hg] DR JAMES GR MD [facility] 07-26-2025 11:39-0400 Diastolic Blood Pressure Non-Invasive 66 mm[Hg] DR JAMES GR MD [facility] 07-26-2025 11:39-0400 Heart rate 75 /min DR JAMES GR MD [facility] 07-26-2025 11:39-0400 Respiratory rate 15 /min DR JAMES GR MD [facility] 07-26-2025 11:39-0400 Systolic Blood Pressure Non-Invasive 103 mm[Hg] DR JAMES GR MD [facility] 07-26-2025 11:36-0400 Diastolic Blood Pressure Non-Invasive 95 mm[Hg] DR JAMES GR MD [facility] 07-26-2025 11:36-0400 Heart rate 76 /min DR JAMES GR MD [facility] 07-26-2025 11:36-0400 Reason For Taking VItal Signs DR JAMES GR MD [facility] 07-26-2025 11:36-0400 Respiratory rate 16 /min DR JAMES GR MD [facility] 07-26-2025 11:36-0400 Systolic Blood Pressure Non-Invasive 114 mm[Hg] DR JAMES GR MD [facility] 07-26-2025 11:30-0400 Respiratory Rate - Anes 22 br/min DR JAMES GR MD [facility] 07-26-2025 11:25-0400 Respiratory Rate - Anes 38 br/min DR JAMES GR MD [facility] 07-26-2025 10:52-0400 Body temperature 98.42 [degF] DR JAMES GR MD [facility] 07-26-2025 10:52-0400 Heart rate 78 /min DR JAMES GR MD [facility] 07-26-2025 10:52-0400 Reason For Taking VItal Signs DR JAMES GR MD [facility] 07-26-2025 10:43-0400 Body height 157.[address] JAMES GR MD [facility] 07-26-2025 10:43-0400 Body weight 30.23 kg/m2 DR JAMES GR MD [facility] 07-26-2025 10:43-0400 Body weight [address] JAMES GR MD [facility] 06-30-2025 13:11-0400 Body height 157.48 cm Ricki DARLING Work Phone: [facility] 06-30-2025 13:11-0400 Body mass index (BMI) [Ratio] 30.7 kg/m2 Ricki Bakerpkins REGISTER CLERK-C Work Phone: [facility] 06-30-2025 13:11-0400 Body weight 76.2 kg Ricki Bakerpkins REGISTER CLERK-C Work Phone: [facility] 06-30-2025 13:11-0400 Diastolic blood pressure 71 mm[Hg] Ricki Bakerpkins REGISTER CLERK-C Work Phone: [facility] 06-30-2025 13:11-0400 Heart rate 79 /min Ricki Bakerpkins REGISTER CLERK-C Work Phone: [facility] 06-30-2025 13:11-0400 Respiratory rate 18 /min Ricki Bakerpkins REGISTER CLERK-C Work Phone: [facility] 06-30-2025 13:11-0400 Systolic blood pressure 114 mm[Hg] Ricki Bakerpkins REGISTER CLERK-C Work Phone: [facility] 01-06-2025 15:56-0400 Body height 157.48 cm Ricki Bakerpkins REGISTER CLERK-C Work Phone: [facility] 01-06-2025 15:56-0400 Body mass index (BMI) [Ratio] 32.7 kg/m2 Ricki Bakerpkins REGISTER CLERK-C Work Phone: [facility] 01-06-2025 15:56-0400 Body weight 81.19 kg Ricki Bakerpkins REGISTER CLERK-C Work Phone: [facility] 01-06-2025 15:56-0400 Diastolic blood pressure 78 mm[Hg] Ricki Bakerpkins REGISTER CLERK-C Work Phone: [facility] 01-06-2025 15:56-0400 Heart rate 69 /min Ricki Bakerpkins REGISTER CLERK-C Work Phone: [facility] 01-06-2025 15:56-0400 Respiratory rate 18 /min Ricki Mahnomen REGISTER CLERK-C Work Phone: [facility] 01-06-2025 15:56-0400 Systolic blood pressure 130 mm[Hg] Ricki GARCIAC Work Phone: [facility] 09-21-2024 15:26-0500 Body height 156.2 cm Aracelsi Lozoya MD Work Phone: [facility] 09-21-2024 15:26-0500 Body mass index (BMI) [Ratio] 32.16 kg/m2 Aracelis Lozoya MD Work Phone: [facility] 09-21-2024 15:26-0500 Body weight 78.47 kg Aracelis Lozoya MD Work Phone: [facility] 09-21-2024 15:26-0500 Diastolic blood pressure 78 mm[Hg] Aracelis Lozoya MD Work Phone: [facility] 09-21-2024 15:26-0500 Systolic blood pressure 140 mm[Hg] Aracelis Lozoya MD Work Phone: [facility] 12-27-2023 11:51-0400 Body weight 73.48 kg Shay Aurin DESIGN ENGINEER.PLASTIC MOLDING OPERATOR Work Phone: [facility] 12-27-2023 11:51-0400 Diastolic blood pressure 67 mm[Hg] Shay Aurin DESIGN ENGINEER.PLASTIC MOLDING OPERATOR Work Phone: [facility] 12-27-2023 11:51-0400 Heart rate 71 /min Shay Aurin DESIGN ENGINEER.PLASTIC MOLDING OPERATOR Work Phone: [facility] 12-27-2023 11:51-0400 SaO2% (BldA) [Mass fraction] 96 % Shay Aurin DESIGN ENGINEER.PLASTIC MOLDING OPERATOR Work Phone: [facility] 12-27-2023 11:51-0400 Systolic blood pressure 132 mm[Hg] Shay Aurin DESIGN ENGINEER.PLASTIC MOLDING OPERATOR Work Phone: [facility] 09-17-2023 08:58-0500 Body height 157.48 cm REGISTER CLERK-C Ricki Griffin REGISTER CLERK Work Phone: [facility] 09-17-2023 08:58-0500 Body mass index (BMI) [Ratio] 29.3 kg/m2 REGISTER CLERK-C Ricki Griffin REGISTER CLERK Work Phone: [facility] 09-17-2023 08:58-0500 Body weight 72.74 kg REGISTER CLERK-C Ricki Griffin REGISTER CLERK Work Phone: [facility] 09-17-2023 08:58-0500 Diastolic blood pressure 60 mm[Hg] REGISTER CLERK-C Ricki Griffin REGISTER CLERK Work Phone: [facility] 09-17-2023 08:58-0500 Heart rate 75 /min REGISTER CLERK-C Ricki Griffin REGISTER CLERK Work Phone: [facility] 09-17-2023 08:58-0500 Respiratory rate 18 /min REGISTER CLERK-C Ricki Griffin REGISTER CLERK Work Phone: [facility] 09-17-2023 08:58-0500 SaO2% (BldA) [Mass fraction] 94 % REGISTER CLERK-C Ricki Griffin REGISTER CLERK Work Phone: [facility] 09-17-2023 08:58-0500 Systolic blood pressure 110 mm[Hg] REGISTER CLERK-C Ricki Griffin REGISTER CLERK Work Phone: [facility] 07-12-2023 12:19-0400 Body weight 74.03 kg Shay Aurin DESIGN ENGINEER.PLASTIC MOLDING OPERATOR Work Phone: [facility] 07-12-2023 12:19-0400 Diastolic blood pressure 76 mm[Hg] Shay Aurin DESIGN ENGINEER.PLASTIC MOLDING OPERATOR Work Phone: [facility] 07-12-2023 12:19-0400 Heart rate 69 /min Shay Aurin DESIGN ENGINEER.PLASTIC MOLDING OPERATOR Work Phone: [facility] 07-12-2023 12:19-0400 SaO2% (BldA) [Mass fraction] 98 % Shay Aurin DESIGN ENGINEER.PLASTIC MOLDING OPERATOR Work Phone: [facility] 07-12-2023 12:19-0400 Systolic blood pressure 139 mm[Hg] Shay Teresa PLASTIC MOLDING OPERATOR Work Phone: [facility] 06-26-2023 13:34-0400 Body mass index (BMI) [Ratio] 32 kg/m2 REGISTER CLERK-C Ricki Griffin REGISTER CLERK Work Phone: [facility] 06-26-2023 13:34-0400 Body weight 74.38 kg REGISTER CLERK-C Ricki Griffin REGISTER CLERK Work Phone: [facility] 06-26-2023 13:34-0400 Diastolic blood pressure 78 mm[Hg] REGISTER CLERK-C Ricki Griffin REGISTER CLERK Work Phone: [facility] 06-26-2023 13:34-0400 Heart rate 71 /min REGISTER CLERK-C Ricki Griffin REGISTER CLERK Work Phone: [facility] 06-26-2023 13:34-0400 Respiratory rate 18 /min REGISTER CLERK-C Ricki Griffin REGISTER CLERK Work Phone: [facility] 06-26-2023 13:34-0400 SaO2% (BldA) [Mass fraction] 96 % REGISTER CLERK-C Ricki Griffin REGISTER CLERK Work Phone: [facility] 06-26-2023 13:34-0400 Systolic blood pressure 144 mm[Hg] REGISTER CLERK-C Ricki Griffin REGISTER CLERK Work Phone: [facility] 05-14-2023 00:11-0400 Body weight 74.61 kg REGISTER CLERK-C Ricki Griffin REGISTER CLERK Work Phone: [facility] 05-10-2023 07:13-0400 Body height 157.48 cm REGISTER CLERK-C Ricki Griffin REGISTER CLERK Work Phone: [facility] 05-10-2023 07:13-0400 Body weight 74.61 kg REGISTER CLERK-C Ricki Griffin REGISTER CLERK Work Phone: [facility] 04-24-2023 18:30-0400 Diastolic blood pressure 79 mm[Hg] REGISTER CLERK-C Ricki Griffin REGISTER CLERK Work Phone: [facility] 04-24-2023 18:30-0400 Heart rate 82 /min REGISTER CLERK-C Ricki Mahnomen REGISTER CLERK Work Phone: [facility] 04-24-2023 18:30-0400 Respiratory rate 16 /min REGISTER CLERK-C Ricki Griffin REGISTER CLERK Work Phone: [facility] 04-24-2023 18:30-0400 SaO2% (BldA) [Mass fraction] 98 % REGISTER CLERK-C Ricki Mahnomen REGISTER CLERK Work Phone: [facility] 04-24-2023 18:30-0400 Systolic blood pressure 138 mm[Hg] REGISTER CLERK-C Ricki Griffin REGISTER CLERK Work Phone: [facility] 04-24-2023 14:22-0400 Body height 160.02 cm REGISTER CLERK-C Ricki Griffin REGISTER CLERK Work Phone: [facility] 04-24-2023 14:22-0400 Body mass index (BMI) [Ratio] 29.6 kg/m2 REGISTER CLERK-C Ricki Griffin REGISTER CLERK Work Phone: [facility] 04-24-2023 14:22-0400 Body temperature 97 [degF] REGISTER CLERK-C Ricki Griffin REGISTER CLERK Work Phone: [facility] 04-24-2023 14:22-0400 Body weight 75.8 kg REGISTER CLERK-C Ricki Griffin REGISTER CLERK Work Phone: [facility] 03-25-2023 14:01-0400 Body height 160.02 cm REGISTER CLERK-C Ricki Griffin REGISTER CLERK Work Phone: [facility] 03-25-2023 14:01-0400 Body mass index (BMI) [Ratio] 30.1 kg/m2 REGISTER CLERK-C Ricki Griffin REGISTER CLERK Work Phone: [facility] 03-25-2023 14:01-0400 Body weight 77.11 kg REGISTER CLERK-C Ricki Griffin REGISTER CLERK Work Phone: [facility] 03-25-2023 14:01-0400 Diastolic blood pressure 71 mm[Hg] REGISTER CLERK-C Ricki Griffin REGISTER CLERK Work Phone: [facility] 03-25-2023 14:01-0400 Heart rate 72 /min REGISTER CLERK-C Ricki Griffin REGISTER CLERK Work Phone: [facility] 03-25-2023 14:01-0400 Respiratory rate 18 /min REGISTER CLERK-C Ricki Mahnomen REGISTER CLERK Work Phone: [facility] 03-25-2023 14:01-0400 SaO2% (BldA) [Mass fraction] 100 % REGISTER CLERK-C Ricki Mahnomen REGISTER CLERK Work Phone: [facility] 03-25-2023 14:01-0400 Systolic blood pressure 110 mm[Hg] REGISTER CLERK-C Ricki Griffin REGISTER CLERK Work Phone: [facility] 03-13-2023 08:59-0400 Body height 160.02 cm REGISTER CLERK-C Ricki Mahnomen REGISTER CLERK Work Phone: [facility] 03-13-2023 08:59-0400 Body weight 73.02 kg REGISTER CLERK-C Ricki Bakerpkins REGISTER CLERK Work Phone: [facility] 03-13-2023 08:44-0400 Body mass index (BMI) [Ratio] 28.5 kg/m2 REGISTER CLERK-C Ricki Mahnomen REGISTER CLERK Work Phone: [facility] 03-13-2023 08:44-0400 Diastolic blood pressure 69 mm[Hg] REGISTER CLERK-C Ricki Griffin REGISTER CLERK Work Phone: [facility] 03-13-2023 08:44-0400 Heart rate 66 /min REGISTER CLERK-C Ricki Griffin REGISTER CLERK Work Phone: [facility] 03-13-2023 08:44-0400 SaO2% (BldA) [Mass fraction] 96 % REGISTER CLERK-C Ricki Griffin REGISTER CLERK Work Phone: [facility] 03-13-2023 08:44-0400 Systolic blood pressure 117 mm[Hg] REGISTER CLERK-C Ricki Griffin REGISTER CLERK Work Phone: [facility] 03-13-2023 08:25-0400 Respiratory rate 66 /min REGISTER CLERK-C Ricki Mahnomen REGISTER CLERK Work Phone: [facility] 02-26-2023 10:40-0400 Body temperature 97.1 [degF] REGISTER CLERK-C Ricki Gaby REGISTER CLERK Work Phone: [facility] 02-26-2023 10:40-0400 Diastolic blood pressure 96 mm[Hg] REGISTER CLERK-C Ricki Mohrkins REGISTER CLERK Work Phone: [facility] 02-26-2023 10:40-0400 Heart rate 79 /min REGISTER CLERK-C Ricki Mohrkins REGISTER CLERK Work Phone: [facility] 02-26-2023 10:40-0400 Respiratory rate 16 /min REGISTER CLERK-C Ricki Griffin REGISTER CLERK Work Phone: [facility] 02-26-2023 10:40-0400 SaO2% (BldA) [Mass fraction] 98 % REGISTER CLERK-C Ricki Mohrkins REGISTER CLERK Work Phone: [facility] 02-26-2023 10:40-0400 Systolic blood pressure 114 mm[Hg] REGISTER CLERK-C Ricki Griffin REGISTER CLERK Work Phone: [facility] 02-26-2023 08:12-0400 Body temperature 97.1 [degF] REGISTER CLERK-C Ricki Mohrkins REGISTER CLERK Work Phone: [facility] 02-26-2023 08:12-0400 Diastolic blood pressure 96 mm[Hg] REGISTER CLERK-C Ricki Mahnomen REGISTER CLERK Work Phone: [facility] 02-26-2023 08:12-0400 Heart rate 79 /min REGISTER CLERK-C Ricki Mohrkins REGISTER CLERK Work Phone: [facility] 02-26-2023 08:12-0400 Respiratory rate 16 /min REGISTER CLERK-C Ricki Bakerpkins REGISTER CLERK Work Phone: [facility] 02-26-2023 08:12-0400 SaO2% (BldA) [Mass fraction] 98 % REGISTER CLERK-C Ricki Bakerpkins REGISTER CLERK Work Phone: [facility] 02-26-2023 08:12-0400 Systolic blood pressure 114 mm[Hg] REGISTER CLERK-C Ricki Griffin REGISTER CLERK Work Phone: [facility] 02-26-2023 03:05-0400 Body mass index (BMI) [Ratio] 28.5 kg/m2 REGISTER CLERK-C Ricki Griffin REGISTER CLERK Work Phone: [facility] 02-26-2023 03:05-0400 Body weight 73.1 kg REGISTER CLERK-C Ricki Griffin REGISTER CLERK Work Phone: [facility] 02-23-2023 14:27-0400 Body height 160.02 cm REGISTER CLERK-C Ricki Mahnomen REGISTER CLERK Work Phone: [facility] 02-23-2023 08:15-0400 Inhaled oxygen flow rate 2 L/min REGISTER CLERK-C Ricki Griffin REGISTER CLERK Work Phone: [facility] 02-22-2023 20:18-0400 Body temperature 97.9 [degF] REGISTER CLERK-C Ricki Griffin REGISTER CLERK Work Phone: [facility] 02-22-2023 20:18-0400 Diastolic blood pressure 91 mm[Hg] REGISTER CLERK-C Ricki Griffin REGISTER CLERK Work Phone: [facility] 02-22-2023 20:18-0400 Heart rate 101 /min REGISTER CLERK-C Ricki Griffin REGISTER CLERK Work Phone: [facility] 02-22-2023 20:18-0400 Inhaled oxygen flow rate 4 L/min REGISTER CLERK-C Ricki Griffin REGISTER CLERK Work Phone: [facility] 02-22-2023 20:18-0400 Respiratory rate 22 /min REGISTER CLERK-C Ricki Griffin REGISTER CLERK Work Phone: [facility] 02-22-2023 20:18-0400 SaO2% (BldA) [Mass fraction] 92 % REGISTER CLERK-C Ricki Gaby REGISTER CLERK Work Phone: [facility] 02-22-2023 20:18-0400 Systolic blood pressure 176 mm[Hg] REGISTER CLERK-C Ricki Griffin REGISTER CLERK Work Phone: [facility] 02-22-2023 16:59-0400 Body height 160.02 cm REGISTER CLERK-C Ricki Griffin REGISTER CLERK Work Phone: [facility] 02-22-2023 16:59-0400 Body mass index (BMI) [Ratio] 29 kg/m2 REGISTER CLERK-C Ricki Griffin REGISTER CLERK Work Phone: [facility] 02-22-2023 16:59-0400 Body weight 74.38 kg REGISTER CLERK-C Ricki Griffin REGISTER CLERK Work Phone: [facility] 02-22-2023 11:14-0400 Respiratory rate 22 /min REGISTER CLERK-C Ricki Griffin REGISTER CLERK Work Phone: [facility] 02-22-2023 10:33-0400 Diastolic blood pressure 83 mm[Hg] REGISTER CLERK-C Ricki Mahnomen REGISTER CLERK Work Phone: [facility] 02-22-2023 10:33-0400 Heart rate 65 /min REGISTER CLERK-C Ricki Griffin REGISTER CLERK Work Phone: [facility] 02-22-2023 10:33-0400 SaO2% (BldA) [Mass fraction] 96 % REGISTER CLERK-C Ricki Griffin REGISTER CLERK Work Phone: [facility] 02-22-2023 10:33-0400 Systolic blood pressure 144 mm[Hg] REGISTER CLERK-C Ricki Griffin REGISTER CLERK Work Phone: [facility] 02-22-2023 08:29-0400 Body height 160.02 cm REGISTER CLERK-C Ricki Griffin REGISTER CLERK Work Phone: [facility] 02-22-2023 08:29-0400 Body mass index (BMI) [Ratio] 29.7 kg/m2 REGISTER CLERK-C Ricki Mahnomen REGISTER CLERK Work Phone: [facility] 02-22-2023 08:29-0400 Body temperature 98.2 [degF] REGISTER CLERK-C Ricki Bakerpkins REGISTER CLERK Work Phone: [facility] 02-22-2023 08:29-0400 Body weight 76 kg REGISTER CLERK-C Ricki Gaby REGISTER CLERK Work Phone: [facility] 08-14-2022 08:45-0400 Body height 160 cm Aracelis Lozoya MD Work Phone: [facility] 08-14-2022 08:45-0400 Body weight 78.47 kg Aracelis Lozoya MD Work Phone: [facility] 08-14-2022 08:45-0400 Diastolic blood pressure 76 mm[Hg] Aracelis Lozoya MD Work Phone: [facility] 08-14-2022 08:45-0400 Systolic blood pressure 132 mm[Hg] Aracelis Lozoya MD Work Phone: [facility] 08-09-2022 12:18-0400 Diastolic blood pressure 80 mm[Hg] Sony Cedeño MD Work Phone: [facility] 08-09-2022 12:18-0400 Heart rate 71 /min Sony Cedeño MD Work Phone: [facility] 08-09-2022 12:18-0400 Respiratory rate 16 /min Sony Cedeño MD Work Phone: [facility] 08-09-2022 12:18-0400 SaO2% (BldA) [Mass fraction] 94 % Sony Cedeño MD Work Phone: [facility] 08-09-2022 12:18-0400 Systolic blood pressure 146 mm[Hg] Sony Cedeño MD Work Phone: [facility] 08-09-2022 10:39-0400 Body temperature 97.2 [degF] Sony Cedeño MD Work Phone: [facility] 07-17-2022 14:54-0400 Body height 160 cm Sony Cedeño MD Work Phone: [facility] 07-17-2022 14:54-0400 Body temperature 96.8 [degF] Sony Cedeño MD Work Phone: [facility] 07-17-2022 14:54-0400 Body weight 78.47 kg Sony Cedeño MD Work Phone: [facility] 07-17-2022 14:54-0400 Diastolic blood pressure 64 mm[Hg] Sony Cedeño MD Work Phone: [facility] 07-17-2022 14:54-0400 Heart rate 68 /min Sony Cedeño MD Work Phone: [facility] 07-17-2022 14:54-0400 SaO2% (BldA) [Mass fraction] 96 % Sony Cedeño MD Work Phone: [facility] 07-17-2022 14:54-0400 Systolic blood pressure 124 mm[Hg] Sony Cedeño MD Work Phone: [facility] 07-14-2022 18:05-0400 Body height 157.48 cm [facility] 07-14-2022 18:05-0400 Body mass index (BMI) [Ratio] 30.3 kg/m2 [facility] 07-14-2022 18:05-0400 Body temperature 97.8 [degF] [facility] 07-14-2022 18:05-0400 Body weight 75.29 kg [facility] 07-14-2022 18:05-0400 Diastolic blood pressure 62 mm[Hg] [facility] 07-14-2022 18:05-0400 Heart rate 88 /min [facility] 07-14-2022 18:05-0400 Respiratory rate 16 /min [facility] 10-01-2022 18:05-0400 SaO2% (BldA) [Mass fraction] 98 % [facility] 07-14-2022 18:05-0400 Systolic blood pressure 128 mm[Hg] [facility] 07-12-2022 15:03-0400 Diastolic blood pressure 79 mm[Hg] [facility] 07-12-2022 15:03-0400 Heart rate 72 /min [facility] 07-12-2022 15:03-0400 Respiratory rate 16 /min [facility] 07-12-2022 15:03-0400 SaO2% (BldA) [Mass fraction] 94 % [facility] 07-12-2022 15:03-0400 Systolic blood pressure 173 mm[Hg] [facility] 07-12-2022 10:45-0400 Body height 157.48 cm [facility] Work Phone: 07-12-2022 10:45-0400 Body mass index (BMI) [Ratio] 30.4 kg/m2 [facility] 07-12-2022 10:45-0400 Body temperature 96.2 [degF] [facility] 07-12-2022 10:45-0400 Body weight 75.65 kg [facility] Encounters Encounter Date Encounter Type Care Provider Facility Start: 07-26-2025 End: 07-26-2025 ambulatory RICKI GRIFFIN DESIGN ENGINEER - PLASTIC MOLDING OPERATOR Facility:[facility] Start: 07-26-2025 End: 07-26-[address] JAMES GR MD [facility] Start: 06-30-2025 End: 06-30-2025 Patient encounter procedure Austen Castro REGISTER CLERK-C -[facility] Work Phone: Start: 06-30-2025 End: 06-30-2025 ambulatory Ricki Griffin REGISTER CLERK-C Work Phone: -[facility] Start: 06-16-2025 End: 06-16-2025 ambulatory Ricki Griffin REGISTER CLERK-C Work Phone: -Laboratory Start: 06-16-2025 End: 06-16-2025 Patient encounter procedure Ricki Griffin REGISTER CLERK-C -Laboratory Work Phone: Start: 06-16-2025 End: 06-16-2025 ambulatory Ricki Griffin Facility:[facility] Start: 06-09-2025 End: 06-09-2025 ambulatory Ricki Griffin REGISTER CLERK-C Work Phone: -Laboratory Start: 06-09-2025 End: 06-09-2025 Patient encounter procedure Ricki Griffin REGISTER CLERK-C -Laboratory Work Phone: Start: 06-09-2025 End: 06-09-2025 ambulatory Ricki Griffin Facility:[facility] Start: 05-13-2025 End: 05-13-2025 ambulatory RICKI GRIFFIN DESIGN ENGINEER - PLASTIC MOLDING OPERATOR Facility:[facility] Start: 05-13-2025 End: 05-13-2025 Patient encounter procedure RICKI GRIFFIN DESIGN ENGINEER - PLASTIC MOLDING OPERATOR [facility] Start: 05-01-2025 End: 05-01-2025 ambulatory Ricki Griffin REGISTER CLERK-C Work Phone: -Laboratory Specimen Start: 05-01-2025 End: 05-01-2025 Patient encounter procedure Ricki Griffin REGISTER CLERK-C -Laboratory Specimen Work Phone: Start: 04-30-2025 End: 05-01-2025 ambulatory Ricki Griffin REGISTER CLERK-C Work Phone: -Laboratory Start: 04-30-2025 End: 04-30-2025 Patient encounter procedure Ricki Griffin REGISTER CLERK-C -Laboratory Work Phone: Start: 04-30-2025 End: 04-30-2025 ambulatory Ricki Griffin Facility:[facility] Start: 03-30-2025 Non-patient / Non-visit Lashay muñiz REGISTER CLERK-C -[facility] Work Phone: Start: 03-30-2025 ambulatory Lashay Prater NP Facili ty:[facility] Start: 03-29-2025 Non-patient / Non-visit Dr. Bill CLAY -[facility] Start: 03-29-2025 End: 03-29-2025 ambulatory Ricki Griffin REGISTER CLERK-C Work Phone: [facility] Work Phone: Start: 03-29-2025 End: 03-29-2025 Patient encounter procedure Austen Castro REGISTER CLERK-C -Cardiovascular Services Work Phone: Start: 03-29-2025 End: 03-29-2025 ambulatory Ricki Griffin Facility:[facility] Start: 03-12-2025 End: 03-12-2025 ambulatory Ricki Griffin REGISTER CLERK-C Work Phone: [facility] Work Phone: Start: 03-12-2025 End: 03-12-[address] Jose Antonio Reeves MD -Laboratory Work Phone: Start: 03-12-2025 End: 03-12-2025 ambulatory Jose Antonio Reeves Facility:[facility] Start: 01-06-2025 End: 01-06-2025 Patient encounter procedure Austen Castro NP-C -[facility] Work Phone: Start: 01-06-2025 End: 01-06-2025 ambulatory Ricki Griffin Facility:[facility] Start: 12-21-2024 End: 12-21-2024 Telephone encounter Aracelis Lozoya MD Work Phone: OB/Gynecology Comment on above: Results Start: 12-07-2024 End: 12-07-2024 Patient encounter procedure Ricki Griffin NP-C -Laboratory Work Phone: Start: 12-07-2024 End: 12-07-2024 ambulatory Ricki Griffin Facility:[facility] Start: 11-23-2024 End: 01-23-2025 Follow-up encounter Aracelis Lozoya MD Work Phone: OB/Gynecology Start: 11-19-2024 End: 11-19-2024 ambulatory ARACELIS LOZOYA Facility:[facility] Start: 11-19-2024 End: 11-19-2024 Subsequent hospital visit by physician Bone Density [facility] Work Phone: Radiology Comment on above: Encounter for screen ing for osteoporosis [Z13.820] Start: 09-21-2024 End: 09-21-2024 ambulatory ARACELIS LOZOYA Facility:[facility] Start: 09-21-2024 End: 09-21-2024 Patient encounter [...] encounter status Aracelis Lozoya MD Work Phone: [facility] Start: 09-16-2024 End: 09-16-2024 ambulatory RICKI GRIFFIN Facility:[facility] Start: 09-16-2024 End: 09-16-2024 Subsequent hospital visit by physician Screen Mammo [facility] Mammogram Comment on above: Encounter for screen ing mammogram for malignant neoplasm of breast [Z12.31] Start: 12-27-2023 End: 12-27-2023 ambulatory RICKI GRIFFIN Facility:[facility] Start: 12-27-2023 End: 12-27-2023 Patient encounter procedure Shay Teresa APRN.PLASTIC MOLDING OPERATOR Work Phone: Cardiology Comment on above: Chronic systolic hea rt failure (HCC) (Primary Dx); Primary hypertension; 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; Hyperlipidemia, unspecified hyperlipidemia type; Ischemic cardiomyopathy Start: 11-13-2023 End: 11-13-2023 ambulatory REGISTER CLERK-C Ricki Griffin NP Work Phone: [facility] Work Phone: Start: 11-13-2023 End: 11-13-2023 Patient encounter procedure REGISTER CLERK-Fatimah Griffin REGISTER CLERK Work Phone: [facility]-Laboratory Work Phone: Start: 09-19-2023 Non-patient / Non-visit REGISTER CLERK-C Meenu Griffin REGISTER CLERK Work Phone: [facility] Work Phone: Start: 09-18-2023 Non-patient / Non-visit REGISTER CLERK-C Meenu Griffin REGISTER CLERK Work Phone: [facility] Start: 09-18-2023 End: 09-18-2023 ambulatory REGISTER CLERK-C Ricki Griffin REGISTER CLERK Work Phone: [facility] Work Phone: Start: 09-18-2023 End: 09-18-2023 Patient encounter procedure REGISTER CLERK-Fatimah Griffin REGISTER CLERK [facility] Start: 09-17-2023 End: 09-17-2023 Patient encounter procedure REGISTER CLERK-Fatimah Griffin REGISTER CLERK Work Phone: [facility] Work Phone: Start: 08-30-2023 End: 08-30-2023 Subsequent hospital visit by physician Screen Mammo [facility] Mammogram Comment on above: Encounter for screen ing mammogram for malignant neoplasm of breast [Z12.31] Start: 07-12-2023 End: 07-12-2023 ambulatory RICKI GRIFFIN Facility[facility] Start: 07-12-2023 End: 07-12-2023 Patient encounter procedure Shay Teresa APRN.PLASTIC MOLDING OPERATOR Work Phone: Cardiology Comment on above: Chronic systolic hea rt failure (HCC) (Primary Dx); Primary hypertension; 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; Hyperlipidemia, unspecified hyperlipidemia type; Ischemic cardiomyopathy Start: 06-26-2023 End: 06-26-2023 Patient encounter procedure REGISTER CLERK-C Ricki Griffin REGISTER CLERK Work Phone: [facility] Work Phone: Start: 06-07-2023 End: 06-07-2023 ambulatory RICKI GRIFFIN Facility:[facility] Start: 05-22-2023 End: 06-13-2023 ambulatory REGISTER CLERK-C Ricki Griffin REGISTER CLERK Work Phone: [facility] Work Phone: Start: 05-22-2023 End: 06-13-2023 Discharged Recurring REGISTER CLERK-C Ricki Griffin REGISTER CLERK Work Phone: [facility]-Cardiac Rehab Work Phone: Start: 05-22-2023 Registered Recurring REGISTER CLERK-C Froylan Griffin REGISTER CLERK Work Phone: [facility] Work Phone: Start: 05-21-2023 Non-patient / Non-visit REGISTER CLERK-C Meenu Griffin REGISTER CLERK Work Phone: [facility] Start: 05-21-2023 End: 05-21-2023 ambulatory REGISTER CLERK-C Ricki Griffin REGISTER CLERK Work Phone: [facility] Work Phone: Start: 05-21-2023 End: 05-21-2023 Patient encounter procedure REGISTER CLERK-C Ricki Griffin REGISTER CLERK [facility] Start: 05-13-2023 End: 05-13-2023 ambulatory REGISTER CLERK-C Ricki Griffin REGISTER CLERK Work Phone: [facility] Work Phone: Start: 05-13-2023 End: 05-13-2023 Discharged Recurring REGISTER CLERK-C Ricki Griffin REGISTER CLERK Work Phone: [facility] Work Phone: Start: 05-03-2023 End: 05-03-2023 Patient encounter procedure REGISTER CLERK-C Ricki Griffin REGISTER CLERK Work Phone: [facility]-Laboratory Work Phone: Start: 04-24-2023 End: 04-24-2023 Emergency department patient visit REGISTER CLERK-C Ricki Griffin REGISTER CLERK Work Phone: [facility]-Emergency Department Work Phone: Start: 04-22-2023 Registered Recurring REGISTER CLERK-C Froylan Griffin REGISTER CLERK Work Phone: [facility] Work Phone: Start: 04-12-2023 End: 04-12-2023 ambulatory REGISTER CLERK-C Ricki Griffin REGISTER CLERK Work Phone: [facility] Work Phone: Start: 04-12-2023 End: 04-12-2023 Discharged Recurring REGISTER CLERK-C Ricki Griffin REGISTER CLERK Work Phone: [facility] Work Phone: Start: 03-25-2023 Telephone encounter Melissa clarke APRN.PLASTIC MOLDING OPERATOR Work Phone: [facility] Cardiology Padmini Comment on above: 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 Start: 03-25-2023 End: 03-25-2023 Patient encounter procedure REGISTER CLERK-C Ricki Griffin REGISTER CLERK Work Phone: [facility] Work Phone: Start: 03-22-2023 Non-patient / Non-visit REGISTER CLERK-C Meenu Griffin REGISTER CLERK Work Phone: [facility] Work Phone: Start: 03-14-2023 End: 03-14-2023 Patient encounter procedure REGISTER CLERK-C Ricki Griffin REGISTER CLERK Work Phone: [facility] Gastroenterology Start: 03-13-2023 End: 03-13-2023 ambulatory REGISTER CLERK-C Ricki Griffin REGISTER CLERK Work Phone: [facility] Work Phone: Start: 03-13-2023 End: 03-13-2023 Patient encounter procedure REGISTER CLERK-C Ricki Griffin REGISTER CLERK Work Phone: [facility]Card[facility] Start: 03-07-2023 End: 03-07-2023 ambulatory SHAY AURIN Facility[facility] Start: 03-04-2023 Non-patient / Non-visit REGISTER CLERK-C Meenu Griffin REGISTER CLERK Work Phone: [facility] Start: 02-26-2023 End: 03-01-2023 Evaluation and management of inpatient OLY GUZMÁN Facility:[facility] Start: 02-26-2023 Non-patient / Non-visit REGISTER CLERK-C Meenu Griffin REGISTER CLERK Work Phone: [facility] Start: 02-26-2023 Non-patient / Non-visit REGISTER CLERK-C Meenu Griffin REGISTER CLERK Work Phone: [facility] Start: 02-25-2023 Non-patient / Non-visit REGISTER CLERK-C Meenu Griffin REGISTER CLERK Work Phone: [facility] Start: 02-25-2023 Non-patient / Non-visit REGISTER CLERK-C Meenu Griffin REGISTER CLERK Work Phone: [facility] Start: 02-24-2023 Non-patient / Non-visit REGISTER CLERK-C Meenu Griffin REGISTER CLERK Work Phone: [facility] Start: 02-23-2023 Non-patient / Non-visit REGISTER CLERK-C Meenu Griffin REGISTER CLERK Work Phone: [facility] Start: 02-23-2023 Non-patient / Non-visit REGISTER CLERK-C Meenu Griffin REGISTER CLERK Work Phone: [facility] Start: 02-22-2023 End: 02-26-2023 Evaluation and management of inpatient REGISTER CLERK-Fatimah Griffin REGISTER CLERK Work Phone: [facility]-Intensive Care Unit Start: 02-22-2023 End: 02-22-2023 Emergency department patient visit REGISTER CLERK-Fatimah Griffin REGISTER CLERK Work Phone: [facility]-Emergency Department Start: 02-21-2023 Non-patient / Non-visit REGISTER CLERK-Fatimah Griffin REGISTER CLERK Work Phone: [facility] Start: 02-21-2023 End: 02-21-2023 ambulatory REGISTER CLERK-C Ricki Griffin REGISTER CLERK Work Phone: [facility] Work Phone: Start: 02-21-2023 End: 02-21-2023 Patient encounter procedure REGISTER CLERK-Fatimah Griffin REGISTER CLERK Work Phone: [facility]-Cardiovascular Services Start: 02-08-2023 End: 02-08-2023 Patient encounter procedure REGISTER CLERK-Fatimah Griffin REGISTER CLERK Work Phone: [facility]-Laboratory Start: 11-28-2022 Registered Recurring REGISTER CLERK-Fatimah Griffin REGISTER CLERK Work Phone: [facility]-Physical Therapy Start: 10-20-2022 End: 10-20-2022 ambulatory [facility] Work Phone: Start: 10-20-2022 End: 10-20-2022 Patient encounter procedure [facility]-Radiology, [facility] Start: 09-21-2022 End: 09-26-2022 ambulatory SAMEER HILLMAN DESIGN ENGINEER-PLASTIC MOLDING OPERATOR Facility:B Start: 09-21-2022 End: 09-25-2022 Outreach Lab SAMEER HILLMAN DESIGN ENGINEER-PLASTIC MOLDING OPERATOR [facility] Start: 09-07-2022 End: 09-07-2022 ambulatory Jackie Graf OLIVEIRA Work Phone: General Surgery Comment on above: Other gastritis with out bleeding (Primary Dx) Start: 09-07-2022 End: 09-07-2022 Telemedicine consultation with patient Jackie Graf OLIVEIRA Work Phone: [facility] Start: 08-15-2022 Documentation procedure Mammog anthony Coordinator [facility] Start: 08-15-2022 Letter encounter Mammography Coordinator [facility] Department Start: 08-14-2022 End: 08-14-2022 Subsequent hospital visit by physician Screen Mammo [facility] Mammogram Start: 08-14-2022 End: [...] pain [R10 .13] Start: 08-02-2022 Telephone encounter Soyn sotelo MD Work Phone: General Surgery Comment on above: Patient Question Start: 07-17-2022 End: 07-17-2022 Patient encounter procedure Sony Cedeño MD Work Phone: General Surgery Comment on above: Epigastric pain (Magdalene alix Dx); Nausea and vomiting, unspecified vomiting type Start: 07-14-2022 End: 07-14-2022 Emergency department patient visit [facility]-Emergency Department Start: 07-12-2022 End: 07-12-2022 Emergency department patient visit [facility]-Emergency Department Start: 03-31-2022 End: 03-31-2022 Patient encounter procedure [facility]-Laboratory Procedures Date Procedure Procedure Detail Performing Clinician Start: 06-16-2025 Immature reticulocyte fraction Ricki gonsalezkins REGISTER CLERK-C Work Phone: Start: 06-16-2025 Total iron binding capacity measurement Ricki Griffin REGISTER CLERK-C Work Phone: Start: 06-09-2025 Vitamin D, 25-hydroxy measurement Neeraj d Mahnomen REGISTER CLERK-C Work Phone: Comment on above: Vitamin D StatusDeficiency: <20 ng/mL (5 0nmol/L)Insufficiency: 20-30 ng/mL (50-75 nmol/L)Sufficiency: 30-100 ng/mL (75-250 nmol/L)Toxicity: >100 ng/mL (>250 nmol/L) Start: 12-07-2024 Measurement of renal function Ricki mackey REGISTER CLERK-C Work Phone: Comment on above: GFR Calc Start: 12-07-2024 Microalbuminuria measurement Ricki cornelius REGISTER CLERK-C Work Phone: Start: 12-07-2024 Urine microalbumin/creatinine ratio measurement Ricki Griffin REGISTER CLERK-C Work Phone: Start: 12-07-2024 Vitamin D, 25-hydroxy measurement Neeraj d Gaby REGISTER CLERK-C Work Phone: Comment on above: Vitamin D [...] of cholecystectomy History of cholecystectomy Melissa Koroma DESIGN ENGINEER.PLASTIC MOLDING OPERATOR Work Phone: Start: 02-23-2023 Streptococcus pneumoniae Antigen (M REGISTER CLERK-C Ricki Griffin REGISTER CLERK Work Phone: Start: 02-22-2023 Plain chest X-ray REGISTER CLERK-C Ricki Griffin REGISTER CLERK Work Phone: Start: 02-22-2023 Computed tomography of abdomen and pelvis with intravenous contrast REGISTER CLERK-C Ricki Griffin REGISTER CLERK Work Phone: Start: 02-22-2023 Bacteria identified in Blood by Culture REGISTER CLERK-C Ricki Griffin REGISTER CLERK Work Phone: Start: 02-08-2023 Plain chest X-ray REGISTER CLERK-C Ricki Griffin REGISTER CLERK Work Phone: Start: 10-20-2022 Plain x-ray of [...] panel - Serum or Plasma Shay Dangelo DESIGN ENGINEER.PLASTIC MOLDING OPERATOR Work Phone: Bacteria identified in Blood by Culture REGISTER CLERK-C Ricki Bakerpkins REGISTER CLERK Work Phone: Cardiac catheterization SOMMER HILLMAN DESIGN ENGINEER-PLASTIC MOLDING OPERATOR Cholecystectomy SAMEER REESE DESIGN ENGINEER-PLASTIC MOLDING OPERATOR Entire heart (body structure) SAMEER HILLMAN DESIGN ENGINEER-PLASTIC MOLDING OPERATOR Comment on above: stent History of appendectomy History of appendectomy History of cholecystectomy Hx of cholecys tectomy MRI guided biopsy of right breast SAMEER HILLMAN DESIGN ENGINEER-PLASTIC MOLDING OPERATOR Placement of stent i n cardiac conduit SAMEER HILLMAN DESIGN ENGINEER-PLASTIC MOLDING OPERATOR Plan of Treatment Date Care Activity Detail Author Start: 09-21-2029 Screening for malignant neoplasm of cervix Cervical Cancer Screening [facility] Start: 09-13-2026 Colonoscopy COLONOSCOPY [facility] Start: 09-13-2026 COLORECTAL CANCER SCREENING COLORECTAL CANCER SCREENING [facility] Start: 09-13-2026 Screening for malignant neoplasm of colon [facility] Start: 05-16-2026 HPV TESTING HPV TESTING [facility] Start: 05-16-2026 PAP TESTING PAP TESTING [facility] Start: 05-16-2026 Screening for malignant neoplasm of cervix [facility] Start: 03-01-2026 DIABETES SCREEN DIABETES SCREEN [facility] Start: 03-01-2026 Diabetes Screening Diabetes Screening [facility] Start: 09-23-2025 End: 09-23-2025 Patient encounter procedure 09/23/2025 11:20 AM EST Office Visit OB/[place]necology [address] [place] [id number] Aracelis Mccormick MD [address] [place] [id number] Annual OB/Gynecology Comment on above: Annual Start: 09-23-2025 End: 09-23-2025 Patient encounter procedure 09/23/2025 10:10 AM EST Appointment Mammogram [address] [place] [id number] Encounter for screening mammogram for breast cancer [Z12.31] Mammogram Comment on above: Encounter for screening mammogram for br east cancer [Z12.31] Start: 09-16-2025 Screening for malignant neoplasm of breast Mammogram Screening [facility] Start: 11-19-2024 End: 11-19-2024 Patient encounter procedure 11/19/2024 3:25 PM EST Appointment Radiology [address] [place] [phone] Asymptomatic postmenopausal status [Z78.0] Radiology Comment on above: Asymptomatic postmenopausal status [Z78. 0] Start: 09-17-2024 End: 09-17-2024 Patient encounter procedure 09/17/2024 1:20 PM EST Office Visit OB/Gynecology [address] [place] [id number] Aracelis Mccormick MD [address] [place] [id number] 2 year annual OB/Gynecology Comment on above: 2 year annual Start: 08-30-2024 Screening for malignant neoplasm of breast Mammogram Screening [facility] Start: 06-14-2024 Covid-19 Vaccine () Covid-19 Vaccine () [facility] Start: 06-14-2024 Influenza vaccination Influenza Vaccine (#1) [facility] Start: 03-07-2024 BP CONTROLLED (<130/80) BP CONTROLLED (<130/80) [facility] Start: 02-28-2024 PNEUMOCOCCAL (2 - PCV) PNEUMOCOCCAL (2 - PCV) [facility] Start: 02-28-2024 Pneumococcal vaccination [facility] Start: 02-28-2024 Pneumococcal Vaccine: 50+ (2 of 2 - PCV) Pneumococcal Vaccine: 50+ (2 of 2 - PCV) [facility] Start: 10-14-2023 Depression Assessment Depression Assessment [facility] Start: 08-14-2023 Mammography [facility] Start: 07-17-2023 BP CONTROLLED (<130/80) BP CONTROLLED (<130/80) [facility] Start: 06-14-2023 Covid-19 Vaccine () Covid-19 Vaccine () [facility] Start: 06-14-2023 Influenza vaccination [facility] Start: 03-04-2023 Patient referral [facility] Work Phone: Start: 02-28-2023 Electrocardiographic procedure [facility] Start: 02-27-2023 Electrocardiographic procedure [facility] Start: 02-26-2023 Patient discharge [facility] Start: 02-25-2023 Cardiac monitoring [facility] Start: 02-25-2023 Cardiac rehabilitation - phase 1 [facility] Start: 02-25-2023 Notification of physician [facility] Start: 02-25-2023 Patient discharge [facility] Start: 02-25-2023 Systemic arterial pressure monitoring [facility] Start: 02-25-2023 Taking patient vital signs [facility] Start: 02-25-2023 Vascular disease risk assessment [facility] Start: 02-25-2023 Vital signs measurements [facility] Start: 02-25-2023 [facility] Start: 02-23-2023 Referral to heavy equipment sales associate [facility] Start: 02-22-2023 Blood culture [facility] Start: 02-22-2023 Application of intermittent pneumatic compression device [facility] Start: 02-22-2023 Following clinical pathway protocol [facility] Start: 02-22-2023 Aspiration precautions [facility] Start: 02-22-2023 Assessment of risk of venous thromboembolism [facility] Start: 02-22-2023 Cardiac monitoring [facility] Start: 02-22-2023 Catheterization of vein [facility] Start: 02-22-2023 Chart related administrative procedure [facility] Start: 02-22-2023 Insertion of catheter into peripheral vein [facility] Start: 02-22-2023 Measuring intake and output [facility] Start: 02-22-2023 Notification of physician [facility] Start: 02-22-2023 Oxygen therapy [facility] Start: 02-22-2023 Providing care according to standard [facility] Start: 02-22-2023 Referral to gastroenterology service [facility] Start: 02-22-2023 Vital signs measurements [facility] Start: 02-22-2023 [facility] Start: 02-22-2023 Verification routine [facility] Start: 02-22-2023 End: 02-22-2023 Blood culture [facility] Start: 02-22-2023 Legionella pneumophila Ag [Presence] in Urine [facility] Start: 02-22-2023 Streptococcus pneumoniae antigen assay [facility] Start: 02-22-2023 Admission procedure [facility] Start: 02-22-2023 Patient referral to dietitian [facility] Start: 10-14-2022 DEPRESSION ASSESSMENT DEPRESSION ASSESSMENT [facility] Start: 06-14-2022 Influenza vaccination INFLUENZA (#1) [facility] Start: 05-16-2022 Mammography MAMMOGRAM [facility] Start: 2022 RSV Vaccine (1 - 1-dose 60+ series) RSV Vaccine (1 - 1-dose 60+ series) [facility] Start: 2022 RSV Vaccine (1 - Risk 60-74 years 1-dose series) RSV Vaccine (1 - Risk 60-74 years 1-dose series) [facility] Start: 11-23-2021 COVID-19 VACCINE (5 - Booster for Pfizer series) COVID-19 VACCINE (5 - Booster for Pfizer series) [facility] Start: 11-23-2021 COVID-19 VACCINE (5 - Booster) COVID-19 VACCINE (5 - Booster) [facility] Start: 11-23-2021 Covid-19 Vaccine (6 - Pfizer series) Covid-19 Vaccine (6 - Pfizer series) [facility] Start: 10-14-2021 DEPRESSION ASSESSMENT DEPRESSION ASSESSMENT [facility] Start: 08-22-2019 DIABETES SCREEN DIABETES SCREEN [facility] Start: 08-02-2017 Lipid 1996 panel - Serum or Plasma Lipid Screening [facility] Start: 08-02-2017 Lipid panel Lipid Screening [facility] Start: 08-02-2017 LIPID SCREEN LIPID SCREEN [facility] Start: 2012 SHINGRIX VACCINE (1 of 2) SHINGRIX VACCINE (1 of 2) [facility] Start: 2007 COLOGUARD (FIT-DNA) COLOGUARD (FIT-DNA) [facility] Start: [address] COLONOGRAPHY [facility] Start: 2007 FECAL OCCULT BLOOD FECAL OCCULT BLOOD [facility] Start: 2007 Screening for malignant neoplasm of colon [facility] Start: 2007 SIGMOIDOSCOPY SIGMOIDOSCOPY [facility] Start: 1992 Zoledronic acid therapy ALPHA-1 ANTITRYPSIN DEFICIENCY SCREENING [facility] Start: 1981 Urine microalbumin profile [facility] Start: 1980 ANNUAL PCP TEAM CHRONIC DISEASE VISIT ANNUAL PCP TEAM CHRONIC DISEASE VISIT [facility] Start: 1980 Anxiety Screening Anxiety Screening [facility] Start: 1980 BP CONTROLLED (<130/80) BP CONTROLLED (<130/80) [facility] Start: 1980 Depression Screening Depression Screening [facility] Start: 1980 Hepatitis B surface antibody level LDL CHOLESTEROL [facility] Start: 1980 HEPATITIS C SCREENING HEPATITIS C SCREENING [facility] Start: 1980 Hepatitis C screening Hepatitis C Screening [facility] Start: 1980 HIV SCREENING HIV SCREENING [facility] Start: 1980 HIV screening HIV Screening [facility] Start: 1980 SPIROMETRY SPIROMETRY [facility] Start: 1968 PNEUMOCOCCAL (1 - PCV) PNEUMOCOCCAL (1 - PCV) [facility] Bacteria identified in Blood by Culture Blood Culture [facility] End: 10-21-2025 BD DXA TRABECULAR BONE SCORE (TBS) BD DXA TRABECULAR BONE SCORE (TBS) Radiology Routine Encounter for screening for osteoporosis Asymptomatic postmenopausal status 1 Occurrences starting 09/21/2024 until 10/21/2025 [facility] Comment on above: 1 Occurrences starting 09/21/2024 until 10/21/2025 BD DXA TRABECULAR JOHNATH[place] NE SCORE (TBS) BD DXA TRABECULAR BONE SCORE (TBS) Radiology Routine Encounter for screening for osteoporosis Asymptomatic postmenopausal status 11/19/2024 3:47 PM EST [facility] End: 10-21-2025 DBT Breast - bilateral screening JON SCREENING W JOSHUA Radiology Routine Encounter for screening mammogram for breast cancer 1 Occurrences starting 09/21/2024 until 10/21/2025 [facility] Work Phone: Comment on above: 1 Occurrences starting 09/21/2024 until 10/21/2025 End: 09-13-2023 Dxa bone density study 1/> sites axial skel DXA-AXIAL SKELETON Radiology Routine Screening for osteoporosis 1 Occurrences starting 08/14/2022 until 09/13/2023 [facility] Work Phone: Comment on above: 1 Occurrences starting 08/14/2022 until 09/13/2023 End: 10-21-2025 DXA Skeletal system.axial Views for bone density DXA-AXIAL SKELETON Radiology Routine Encounter for screening for osteoporosis Asymptomatic postmenopausal status 1 Occurrences starting 09/21/2024 until 10/21/2025 [facility] Comment on above: 1 Occurrences starting 09/21/2024 until 10/21/2025 DXA Skeletal system. axial Views for bone density DXA-AXIAL SKELETON Radiology Routine Encounter for screening for osteoporosis Asymptomatic postmenopausal status 11/19/2024 3:47 PM EST [facility] Work Phone: End: 07-17-2023 EGD DIAGNOSTIC EGD DIAGNOSTIC Endoscopy Routine Epigastric pain Nausea and vomiting, unspecified vomiting type 1 Occurrences starting 07/17/2022 until 07/17/2023 [facility] Work Phone: Comment on above: 1 Occurrences starting 07/17/2022 until 07/17/2023 Lactic acid measurement [facility] Work Phone: PAP TEST PAP TEST Lab [facility] Encounter for screening for human papillomavirus (HPV) Pap smear for cervical cancer screening 09/21/2024 3:58 PM EST [facility] Patient Education [facility] Work Phone: Patient referral [facility] Work Phone: [facility] Immunizations Immunization Date Immunization Notes Care Provider [facility] 02-27-2023 pneumococcal polysaccharide vaccine, 23 valent Melissa Koroma DESIGN ENGINEER.PLASTIC MOLDING OPERATOR Work Phone: [facility] 01-27-2021 SARS-CoV-2 mRNA (tozinameran) vaccine SAMEER HILLMAN DESIGN ENGINEER-PLASTIC MOLDING OPERATOR [facility] 01-26-2021 COVID-19 original vaccine, age 12+ yr, monovalent ([employer] - PURPLE TOP) Sony Cedeño MD Work Phone: [facility] Work Phone: 01-06-2021 SARS-CoV-2 mRNA (tozinameran) vaccine SAMEER HILLMAN DESIGN ENGINEER-PLASTIC MOLDING OPERATOR [facility] 12-26-2020 COVID-19 original vaccine, age 12+ yr, monovalent ([employer] - PURPLE TOP) Sony Cedeño MD Work Phone: [facility] Work Phone: Payers Date Payer Category Payer Self-pay [id number] 2019 Private Health Insurance [id number] 2015 Blue Cross Blue [facility] BLUE ACCE PPO [id number] 2015 Unknown [employer] PPO [id number] 2015-Present [phone] [place], [place] [id number] O [id number] 2015 Unknown [id number] 1960 Unknown [id number]. [id number] 1960 Unknown [id number]. 2.62 1962 Unknown [id number]. 2.627 Unknown [facility] PACKAGE PLAN [id number] Unknown [id number] Unknown [id number] [id number]. 2.462 Unknown [id number]. 2.462 Unknown [id number]. 2.462 Unknown [id number]. [id number] Unknown [id number]. 2.462 Unknown [id number]. 2.462 Unknown [id number]. 2.462 Unknown [id number]. 2.462 Unknown [id number]. [id number] Unknown [id number] Unknown [id number] Social History Date Type Detail Facility Start: 04-20-2021 End: 09-17-2023 Tobacco smoking status NMIS Unknown if ever smoked [facility] Start: 2021 Occasional [facility] Start: 2021 None [facility] Start: 2021 Homeless [facility] Start: 2021 Cigarettes [facility] Start: 1960 Sex Assigned At Female A [facility] Start: 07-06-2015 Tobacco smoking stat us NMIS Smokes tobacco daily [facility] Start: 02-22-2003 End: 02-22-2023 History of tobacco use Cigarette Smoker [facility] Start: 07-06-2015 End: 12-27-2023 Cigarettes smoked current (pack per day) - Reported 0.5 [facility] Start: 07-06-2015 End: 09-21-2024 Tobacco use and exposure Smokeless tobacco non-user [facility] Start: 07-17-2022 Alcohol intake Current non-dr fat purification worker of alcohol (finding) [facility] Start: 1960 Sex Assigned At Not on file C [facility] Start: 07-07-2022 End: 08-14-2022 Exposure to SARS-CoV-2 (event) Not sure [facility] Start: 08-14-2022 End: 09-21-2024 Alcohol intake Current drinker of alcohol (finding) [facility] Start: 07-03-2019 Tobacco smoking status Heavy t obacco smoker (finding) [facility] Start: 02-27-2023 End: 09-21-2024 Tobacco smoking status NHIS Ex-smoker [facility] Work Phone: Start: 02-22-2003 End: 02-22-2023 History of tobacco use Current smoker [facility] Work Phone: Start: 07-12-2023 End: 12-27-2023 Tobacco use panel [facility] Start: 07-26-2025 National Score (1-10 0), lower number is lower risk [facility] Start: 01-06-2025 End: 06-10-2025 Tobacco smoking status NHIS Current Light tobacco smoker [facility] Sexual Orientation [facility] Start: 09-07-2019 Sex Female (finding) [facility] Medical Equipment Procedure Code Equipment Code Equipment Origin al Text Equipment Identifier Dates Drug-eluting coronary artery stent, [id number] lymer-coated ()[id number] FDA Start: 02-25-2023 Goals Date Patient Goal Desired Activity /State Functional Status Date Assessment Result Facility 07-26-2025 Functional Status Repositions self [facility] 03-01-2023 Are you deaf, or do you have serious difficulty hearing No 03/01/2023 4:39 PM Zak Sharma, RN No [facility] 03-01-2023 Are you blind, or do you have serious difficulty seeing, even when wearing glasses No 03/01/2023 4:39 PM EDZak Canales, RN No [facility] 03-01-2023 Do you have serious difficulty walking or climbing stairs No 03/01/2023 4:39 PM EDZak Canales, RN No [facility] 03-01-2023 Do you have difficul ty dressing or bathing No 03/01/2023 4:39 PM EDZak Canales, RN [facility] 03-01-2023 Because of a physica l, mental, or emotional condition, do you have difficulty doing errands alone such as visiting a physician's office or shopping No 03/01/2023 4:39 PM Zak Sharma, RN No [facility] 02-26-2023 Functional status Patient Activi ty Ambulates;Up ad mallika [facility] Work Phone: 02-26-2023 Functional status Ambulates;Up ad mallika [facility] Work Phone: 02-26-2023 Functional status Activity Abili ty Independent [facility] Work Phone: 02-25-2023 Functional status Assistive Devices None [facility] Work Phone: 02-25-2023 Functional status Tolerates Activity Well [facility] Work Phone: Mental Status Date Assessment Result Facility 07-26-2025 Mental Status Oriented x 4 [facility] 03-01-2023 Because of a physica l, mental, or emotional condition, do you have serious difficulty concentrating, remembering, or making decisions No 03/01/2023 4:39 PM EDZak Canales, RN No [facility] 02-26-2023 Cognitive function Voice/Name [facility] Work Phone: 02-22-2023 Cognitive function Level Of Cons ciousness Awake;Alert;Appropriate;Fol lows Commands [facility] Work Phone: 02-22-2023 Cognitive function Voice/Name [facility] Work Phone: Clinical Notes 09-10-2012 to 07-26-2025 [...] before eating solid foods. General instructions Take [id number] and prescription medicines only as told by [...] 01/20/2017 Document Revised: 12/29/2018 Document Reviewed: 01/20/2017 [employer] Patient Education 2020 [employer]. 07/26/2025 11:09:55 Upper Endoscopy, Adult, Care After [...] what activities are safe for you. Take zbha-qsp-yhgrgru and prescription medicines only as told by [...] 03/31/2013 Document Revised: 03/24/2019 Document Reviewed: 03/02/2019 [employer] Patient Education Beyond the Box. Follow Up Care 07/09/2025 12:42:38 With:JAMES GR MD Address: [address] [facility] [address] [place] [address] [phone] When: only if needed [facility] 07-26-2025 Summary of episode note Discharge Instructions Thank you for allowing [facility] to assist you with your healthcare needs. The following is important discharge information regarding your hospital visit. Your Care Team James Gr Your Diagnosis EGD procedure What to do next Scheduled Follow-Up Appointments Appointment Type When With Where Contact Information StatusPC OV 12/10/2025 02:20 PM RICKI BURR APRN - [facility] Confirmed Follow Up Appointments Follow Up with JAMES GR MD When:Only if needed Where:[address] [facility] [address] [place] [address] [phone] The Following Activity and Diet Have Been [...] before eating solid foods. General instructions Take eqpd-ids-tisfytd and prescription medicines only as told by [...] 01/20/2017 Document Revised: 12/29/2018 Document Reviewed: 01/20/2017 [employer] Patient Education 2020 [employer] Upper Endoscopy, Adult, Care After This [...] what activities are safe for you. Take qrqa-pvo-vxnzwjq and prescription medicines only as told by [...] 03/31/2013 Document Revised: 03/24/2019 Document Reviewed: 03/02/2019 [employer] Patient Education 2020 [employer]. Additional Information VACCINATE! IT SAVES LIVES! Members of the community who have not yet received the COVID-19 vaccine and would like to receive it can visit one of [facility] vaccine clinics. There are many vaccine clinic locations within the [facility]. For locations and available times, please visit [email or web address] It is important to note that some COVID mobile vaccine clinics are held outdoors and may be canceled in rainy or stormy conditions. To learn more about pediatric vaccinations (ages 5-11), we invite you to visit the [facility] webpage. [email or web address] -[email or web address].html To learn more about the COVID-19 vaccine, we invite you to visit the CDC website for a list of frequently asked questions.https://www.cdc.gov/coronavi ashanti/2019-ncov/vaccines/faq.html [employer] Patient Portal Access Instructions: Stay connected with your healthcare team and access your personal medical information anytime with the [employer] Patient Portal. Please follow the directions below to create your [employer] account: 1.Access the email account you provided upon registration to the hospital/physician office.2.Look for an invitation email from [facility].3.Open the email and access the invitation link: Accept Invitation to [facility].4.Fill in the required bautista to create your account. To access your account, visit [email or web address] or scan the IZI-collecte code above. Click the blue button labeled [...] you will allow to register on the [facility] Patient Portal for access to your information. You can also access the [facility] Patient Portal on the [facility] [employer]where hernan. Simply click on Patient Portal and then log into your account. If you would like to receive a full copy of your medical records, please contact the [facility] Medical Records Department by calling [phone], Saturday through Saturday between 8 a.m. and [...] Call your local pharmacy or go to http://bit.ly/0J7Bo0z to find one close to you.3.Make use of household items: Use cat litter or old coffee grounds to dispose medications if other options are not available. Mix your drugs with these household products, seal them in an airtight container and throw it into the garbage. Call [facility]: [phone] to be sure your drugs can be [...] aware that I should contact my doctor. 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 Signature: _ Date/Time: Relationship to Patient: Witness Name/Signature: Date/Time: [facility] 07-26-2025 Note Date of Service 07/26/2025 Procedure Name EGD with biopsy Consent Taken before procedure Indication Patient with reflux abnormal upper GI series Location [facility] Pre-Procedure Exam Abnormal upper GI series Procedural [...] UPPER GASTROINTESTINAL, Preferred Lab: Other lab service, [id number] Post Procedure Assessment, 07/26/25 11:35:00 EDT, Stop [...] JAMES GR MD on 07/26/2025 11:38 AM [facility] 07-26-2025 Anesthesiology Consult note Patient: VISHAL GEORGE Age: 65 years Sex: Female : 1960 Associated Diagnoses: None Author: MIGUEL HANNA DESIGN ENGINEER-EDUCATION PARAPROFESSIONAL Assessment Postanesthesia assessment Vitals: Vital signs from [...] by MIGUEL HANNA on 07/26/2025 11:33 AM [facility] 07-26-2025 Anesthesiology Consult note Patient: VISHAL GEORGE [...] list: Medical Abdominal bruit / SNOMED CT 696340006 / Confirmed COPD exacerbation / SNOMED CT 9164848124 / Confirmed Anemia of unknown etiology / SNOMED CT 124707928 / Confirmed Cardiac defibrillator in place / SNOMED CT 0827763062 / Confirmed Chronic low back pain with right-sided sciatica / SNOMED CT 686234131 / Confirmed COPD (chronic obstructive pulmonary disease) / SNOMED CT 77232746 / Confirmed CAD (coronary artery disease) / SNOMED CT 46914244 / Confirmed DDD (degenerative disc disease), lumbar / SNOMED CT 83781505 / Confirmed Cardiac LV ejection fraction 10-20% / SNOMED CT 8067072143 / Confirmed Depression / SNOMED CT 44973100 / Confirmed Diastolic heart failure / SNOMED CT 9819507921 / Confirmed Hiatal hernia with GERD / SNOMED CT 5364781331 / Confirmed Chronic pain of right hip / SNOMED CT 06435040 / Confirmed Hyperlipidemia LDL goal <100 / SNOMED CT 63737332 / Confirmed IFG (impaired fasting glucose) / SNOMED CT 0964823857 / Confirmed Increased BMI (body mass index) / SNOMED CT 12201032 / Confirmed Chronic pain of left knee / SNOMED CT 53435423 / Confirmed Left ventricular hypertrophy by electrocardiogram / SNOMED CT 8414762875 / Confirmed Well adult exam / SNOMED CT 923123156 / Confirmed Screening for lung cancer / SNOMED CT 436886287 / Confirmed Seasonal allergies / SNOMED CT 9587183500 / Confirmed AV block, 2nd degree / SNOMED CT 874122921 / Confirmed Vitamin D deficiency / SNOMED CT 46729422 / Confirmed Resolved: Acute bronchitis, bacterial / SNOMED CT 148855226 Resolved: Epigastric abdominal pain / SNOMED CT 170652178 Canceled: Acute bronchitis / SNOMED CT 55657910 Canceled: COPD with exacerbation / SNOMED CT 6110875919 Canceled: Acute sinus infection / SNOMED CT 99618135 Canceled: Chronic low back pain with bilateral sciatica / SNOMED CT 685446518 Canceled: Cough with congestion of paranasal sinus / SNOMED CT 419569478 Canceled: Epigastric pain / SNOMED CT 758090806 Canceled: Diaphoresis / SNOMED CT 721874079 Canceled: Tarry stools / SNOMED CT 153015860 Canceled: Heart / SNOMED CT 315340201 Canceled: Heart murmur / SNOMED CT 064156949 Canceled: Nausea & vomiting / SNOMED CT [id number] Canceled: Nausea & vomiting / SNOMED CT 95784551 Canceled: Pre-op exam / SNOMED CT 896430230 Canceled: Viral gastroenteritis / SNOMED CT 852624422 Canceled: Wheezing / SNOMED CT 26627482, Active Problems (27) Abdominal bruit Anemia of [...] History: Active COPD (chronic obstructive pulmonary disease) (90036265) COPD exacerbation (1955003136) Resolved Acute bronchitis, bacterial (482109889): Resolved. Epigastric abdominal pain (244841238): Resolved. Family History: Breast cancer Mother Hypertension Father Heart disease Mother Procedure history: Heart (137828389). Comments: 04/02/2015 13:04 EDT - KARIN DECKER KEESHA stent Cholecystectomy (34491673). Cardiac catheterization (71317769). MRI guided biopsy of right breast (8757118015). Placement of stent in cardiac conduit (1613015531). Social History: Social & Psychosocial Habits Alcohol 07/26/2025 Use: Past Type: Beer Frequency: 1-2 times per week Comment: for 20 years - 07/03/2019 10:58 - Genny Montejo RN Substance Abuse 07/26/2025 Use: Current Type: Marijuana Frequency: 1-2 times per week Comment: Medical marijuana - 12/19/2022 11:14 - ShanonMónica LPN Tobacco 07/26/2025 Tobacco Use: 5-9 cigarettes (between 1 Home/Environment 07/26/2025 Primary Water Supply Technician: Self Nutrition/Health 07/26/2025 Caffeine intake amount: 1 [...] Admission Weight 75 kg Weight Method Stated [place] Body Weight 50.12 kg BSA Admission 1.76 [...] Surgeon SN - CAt - Role Performed EDUCATION PARAPROFESSIONAL SN - CAt - Role Performed Capsule Filling Machine Operator 1 SN - CAt - Role Performed Candy Waffle Assembler 07/26/2025 11:18 EDT History and Physical Update History and Physical Update Note 07/26/2025 11:10 EDT Individuals Taught Patient Learning Readiness Willing to learn Barriers to Learning None evident Teaching Method Explanation Preferred Spoken Language Togolese Preferred Written Language Togolese Pre Procedure/Surgery Education Appropriate expectations, Date/Time of procedure/surgery, Hospital gown requirement worn to OR, Meds to take or hold, NPO, Responsible livery car driver for discharge Procedure/Surgical Teaching Evaluation Verbalizes/Nonverbally [...] Allergies Yes Anesthesia Extension Set Applied Yes Visually Impaired Teacher On Yes Consent Form Signed Yes Patient [...] Type 0-10 Pain scale Nail Bed Color Maize Capillary Refill < 2 seconds Heart Rhythm [...] Person #1 We May Share AUNDREA Vernon [phone] Designated Person #1 Relationship Significant other Height 157.5 cm Admission Weight 75 kg Weight Method Stated [place] Body Weight 50.12 kg BSA Admission 1.76 [...] Method Explanation, Printed materials Preferred Spoken Language Togolese Preferred Written Language Togolese Patient's Current Physicians Patient's Current Physicians Discharge To, Anticipated Home independently Prev Test Positive/Diagnosis w/COVID-19 No Current Quarantine/Isolated any Illness No Any Contact with Sick Animals/Birds No Traveled Anywhere in Last 30 Days No No Personal Devices, Patient Valuables Dentures, upper, Glasses Admission Note-Nursing Procedure/Therapy Intake . Assessment and Plan [place] Society of Anesthesiologists (ASA) physical status classification: Class III. Anesthetic Preoperative Plan Premedication: intravenous. Anesthetic technique: MAC. Induction: intravenously. Maintenance airway: Mask. Risks discussed: nausea, vomiting, headache, sore throat, dental injury, hypotension, allergic reaction, serious complications. Informed consent: signed by patient. Digitally Signed by MIGUEL HANNA on 07/26/2025 11:21 AM [facility] 07-26-2025 History and physical note Date of Service 07/26/2025 History and Physical Update I have examined the patient; reviewed the History and Physical and there are no changes to the History and Physical unless noted below. Digitally Signed by JAMES GR MD on 07/26/2025 11:19 AM [facility] 05-13-2025 Note Exam Date Time Procedure Performing Provider Status 05/13/25 10:21 AM XR Upper GI IAN COTTON MD; Auth (Verified) [id number] ORIGINAL EXAMINATION: DOUBLE CONTRAST UPPER GI SERIES [...] 05/13/2025 11:48:01 AM Ordering Provider: RICKI GRIFFIN [facility]03-26-2025 Evaluation note* Diagnosis Onset Date Resolution Status Admit Date Essential hypertension acute [facility] 2024 3:40pm Hyperlipidemia acute December 3:40pm Ischemic cardiomyopathy acute [facility] 2024 3:40pm Nonsustained ventricular tachycardia acute January 06, 2025 3:40pm Stented coronary artery February 25, 2023 chronic January 06, 2025 3:40pm [facility] Work Phone: 1(804) 817-998203-10-2025 Telephone encounter Note* Telephone Encounter - Dinah Singh RN - 12/21/2024 2:30 PM EDT Patient called in requested 11/19/24 bone density result. Advised [employer] message was sent by provider, but she does not use her mychart. Read her DM's message to her. All questions answered. Dinah Singh RN [facility]03-10-2025 Miscellaneous Notes* Telephone Encounter - Dinah Singh RN - 12/21/2024 2:30 PM EDT Patient called in requested 11/19/24 bone density result. Advised mychart message was sent by provider, but she does not use her mychart. Read her DM's message to her. All questions answered. Dinah Singh RN documented in this encounterWestern [facility]02-[facility] History of Present illness Narrative* Cristhian [...] PATIENT PRESENTS WITH AN IMPLANTABLE OR ATTACHED HEALTH COORDINATOR: No RADIOLOGY DEPARTMENT: Bone Density PERIPHERAL IV DATA: Not applicable SIGNED BY: RT Mario(Meenu) November 19, 2024 3:27 PM documented in this encounterWestern Reserve Hospital02-06-2025 NoteHNO ID: [id number] Author: CRISTHIAN MUSE RT(R) Service: ? Author [...] PATIENT PRESENTS WITH AN IMPLANTABLE OR ATTACHED HEALTH COORDINATOR: No RADIOLOGY DEPARTMENT: Bone Density PERIPHERAL IV DATA: Not applicable SIGNED BY: RT Mario(R) November 19, 2024 3:27 [facility]12-09-2024 Instructions* Patient Instructions* Aracelis Mccormick MD [...] your usual activities immediately. documented in this encounterWestern Reserve Hospital12-09-2024 NoteHNO ID: [id number] Author: ARACELIS MCCORMICK MD Service: ? Author Type: Physician Type: Progress Notes Filed: 09/21/2024 15:54 Note Text: Flyer Repairer offered: Patient declinesLedy Trevino is a 64 [...] L2 SAB1 IAB0 Ectopic0 Multiple0 Live Births0 Polarity Tester History LMP: 03/05/2012 (Approximate), Postmenopausal Age at Menarche: Age at First : Age at Menopause: Polarity Tester History Comments: Sexual Activity: Yes; Male Contraception: [...] discussed with the Patient or Patient's Authorized Central Stores Attendant. As applicable, any other physician, advance practice provider, medical student, or other health professional student that will be observing or involved in the sensitive examination for educational or training purposes was discussed with the Patient or Authorized Central Stores Attendant. The Patient or Authorized Central Stores Attendant has agreed to proceed with the sensitive [...] external genitalia normal, normal Bartholin's glands, urethra, Mcdonald's glands, no vulvar lesions, no cervical lesions, [...] reviewed. Colon cancer screening: (more content not included)...[facility] 09-21-2024 History of Present illness Narrative* Aracelis Mccormick MD - 09/21/2024 3:22 PM EST Flyer Repairer offered: Patient declinesLedy Trevino is a 64 [...] L2 SAB1 IAB0 Ectopic0 Multiple0 Live Births0 Polarity Tester History LMP: 03/05/2012 (Approximate), Postmenopausal Age at Menarche: Age at First : Age at Menopause: Polarity Tester History Comments: Sexual Activity: Yes; Male Contraception: [...] discussed with the Patient or Patient's Authorized Central Stores Attendant. As applicable, any other physician, advance practice provider, medical student, or other health professional student that will be observing or involved in the sensitive examination for educational or training purposes was discussed with the Patient or Authorized Central Stores Attendant. The Patient or Authorized Central Stores Attendant has agreed to proceed with the sensitive [...] external genitalia normal, normal Bartholin's glands, urethra, Mcdonald's glands, no vulvar lesions, no cervical lesions, [...] needed Aracelis Yoder MD documented in this encounterWestern [facility] Hospital12-04-2024 History of Present illness Narrative* Tony Hart, [...] PATIENT PRESENTS WITH AN IMPLANTABLE OR ATTACHED HEALTH COORDINATOR: No RADIOLOGY DEPARTMENT: Mammography PERIPHERAL IV DATA: Not applicable SIGNED BY: Cesar Vargas September 16, 2024 8:07 AM documented in this encounterWestern Reserve Hospital12-04-2024 NoteHNO ID: [id number] Author: TONY HART Mammo Tech Service: ? Author Type: Gas Station Cashier Type: Progress Notes Filed: 09/16/2024 08:07 Note [...] PATIENT PRESENTS WITH AN IMPLANTABLE OR ATTACHED HEALTH COORDINATOR: No RADIOLOGY DEPARTMENT: Mammography PERIPHERAL IV DATA: Not applicable SIGNED BY: Cesar Vargas September 16, 2024 8:07 [facility]03-15-2024 NoteHNO ID: [id number] Author: SHAY TERESA APRN.CNP Service: ? Author Type: Nurse Practitioner Type: Progress Notes Filed: 12/27/2023 12:33 Note Text: [facility] [place] [facility] Heart Failure Clinic OUTPATIENT VISIT DATE [...] of ventricular tachycardia. She was transferred to [facility] for possible ICD placement. [...] use inhaler daily. She follows with a heavy equipment sales associate in [place]. Does not weigh every day. Monitors her sodium intake. Does not monitor fluids as well. Weights have been stable at 162-164 lbs. States she had an echocardiogram in September in [place] and reports an ejection fraction of 45%. She was told by her heavy equipment sales associate if it was less than 35% she [...] with HF Clinic and with cardiology in [place]. She is to call the office next [...] once GDMT is optimized -repeat echo in [place] shows 45% from September 2023 Per the [...] BP monitoring 5. 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 - ICD9: 414.01, [...] DX W/COLLJ SPEC WHEN (more content not included)...[facility] [id number] History of Present illness Narrative* Shay Teresa APRN.PLASTIC MOLDING OPERATOR - 12/27/2023 12:00 PM EDT Images from the original note were not included. [facility] Heart Failure Clinic OUTPATIENT VISIT DATE December 26, 2023 OUTPATIENT VISIT TYPE ESTABLISHED PRIMARY CARE PHYSICIAN: Ricki Griffin, WAGE CONCILIATOR, PLASTIC MOLDING OPERATOR CHIEF COMPLAINT: Patient presents with: Breathing Problem [...] of ventricular tachycardia. She was transferred to [facility] for possible ICD placement. [...] use inhaler daily. She follows with a heavy equipment sales associate in [place]. Does not weigh every day. Monitors her sodium intake. Does not monitor fluids as well. Weights have been stable at 162-164 lbs. States she had an echocardiogram in September in [place] and reports an ejection fraction of 45%. She was told by her heavy equipment sales associate if it was less than 35% she [...] with HF Clinic and with cardiology in [place]. She is to call the office next [...] once GDMT is optimized -repeat echo in [place] shows 45% from September 2023 Per the [...] BP monitoring 5. 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 Medications reconciled at end of visit: yes I spent 30 minutes in this visit, with more than 50% of the time devoted to patient counseling. SIGNATURE: Shay Teresa APRN.CNP PATIENT NAME: Vishal George DATE: December 27, 2023 TIME: 1200 documented in this encounterWestern Reserve Hospital03-15-2024 Instructions* Patient Instructions* Shay Teresa APRN.CNP [...] or concern, you can call me at [phone]. documented in this encounterWestern Reserve Hospital09-29-2023 NoteHNO ID: [id number] Author: Shay Teresa APRN.MELODY Service: ? Author Type: Nurse Practitioner Type: Progress Notes Filed: 07/12/2023 12:38 PM Note Text: [facility] [place] [facility] Heart Failure Clinic OUTPATIENT VISIT DATE [...] of ventricular tachycardia. She was transferred to [facility] for possible ICD placement. Electrophysiology was consulted. Recommended life vest and repeat echo in 3 months. Cardiology also started patient on carvedilol, jardiance and aldactone along with entresto. Today, the patient reports feeling very well. She follows with a heavy equipment sales associate in [place]. Every once in awhile she feels a [...] once GDMT is optimized -repeat echo in [place] shows 15% Per the patient- no outside records present during visit 3. Hyperlipidemia, unspecified hyperlipidemia type - ICD9: 272.4, ICD10: E78.5 -continue statin therapy 4. Primary hypertension - ICD9: 401.9, ICD10: I10 -BP suboptimal during visit 139/76 mmHg -encourage DASH/low sodium diet -encourage exercise with rest breaks as needed -goal BP <130/80 mmHg -continue home BP monitoring 5. 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 - ICD9: 414.01, [...] SURGERY, COMPLEX 09/29/2012 L (more content not included)...[facility] HospitalDwvxkaym52-21-2685 Instructions* Patient Instructions* Shay Teresa APRN.PLASTIC MOLDING OPERATOR - 07/12/2023 12:27 PM EDT Continue current [...] or concern, you can call me at [phone]. documented in this encounterWestern Reserve Hospital09-29-2023 History of Present illness Narrative* Shay Teresa APRN.CNP - 07/12/2023 12:00 PM EDT Images from the original note were not included. [facility] [place] [facility] Heart Failure Clinic OUTPATIENT VISIT DATE [...] of ventricular tachycardia. She was transferred to [facility] for possible ICD placement. Electrophysiology was consulted. Recommended life vest and repeat echo in 3 months. Cardiology also started patient on carvedilol, jardiance and aldactone along with entresto. Today, the patient reports feeling very well. She follows with a heavy equipment sales associate in [place]. Every once in awhile she feels a [...] once GDMT is optimized -repeat echo in [place] shows 15% Per the patient- no outside records present during visit 3. Hyperlipidemia, unspecified hyperlipidemia type - ICD9: 272.4, ICD10: E78.5 -continue statin therapy 4. Primary hypertension - ICD9: 401.9, ICD10: I10 -BP suboptimal during visit 139/76 mmHg -encourage DASH/low sodium diet -encourage exercise with rest breaks as needed -goal BP <130/80 mmHg -continue home BP monitoring 5. 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 Patient states echo was done in [place] in May. I have personally reviewed the Laboratory Testing and Echocardiogram. COUNSELING: We discussed the following non-pharmacological measures during this visit: Smoking and alcohol abstinence/cessation, if applicable Dietary and medication compliance Monitoring daily weights and blood pressures Exercise regimen When to call our office Heart Failure Education Booklet: Previously given. Discussed red flags and when to call MD/REGISTER CLERK [facility]. Medications reconciled at end of visit: yes I spent 30 minutes in this visit, with more than 50% of the time devoted to patient counseling. SIGNATURE: Shay Teresa APRN.CNP PATIENT NAME: Vishal George DATE: July 12, 2023 TIME: 1201 documented in this encounterWestern Reserve Hospital08-25-2023 NoteHNO ID: [id number] Author: Shay Teresa APRN.CNP Service: ? Author Type: Nurse Practitioner Type: Progress Notes Filed: 06/07/2023 12:42 PM Note Text: [facility] [place] [facility] Heart Failure Clinic OUTPATIENT VISIT DATE [...] dilated cardiomyopathy, chronic obstructive pulmonary disease, s/p [facility] with stent placement on 02/25 revealing [...] of ventricular tachycardia. She was transferred to [facility] for possible ICD placement. [...] able. She states she has a primary heavy equipment sales associate at [place] in which she had an echocardiogram that [...] once GDMT is optimized -repeat echo in [place] shows 15% Per the patient- no outside records present during visit 3. Hyperlipidemia, unspecified hyperlipidemia type - ICD9: 272.4, ICD10: E78.5 -continue statin therapy 4. Primary hypertension - ICD9: 401.9, ICD10: I10 -BP suboptimal during visit mmHg -encourage DASH/low sodium diet -encourage exercise with rest breaks as needed -goal BP <130/80 mmHg -continue home BP monitoring 5. 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 - ICD9: 414.01, [...] Procedure Laterality Date CATARACT (more content not included)...[id number] Miscellaneous Notes* Telephone Encounter - Melissa Koroma [...] declined. Melissa Koroma APRN.CNP documented in [facility]23 NoteHNO ID: [id number] Author: Shay Teresa APRN.CNP Service: ? Author Type: Nurse Practitioner Type: Progress Notes Filed: 03/07/2023 11:18 AM Note Text: [facility] [place] [facility] OUTPATIENT VISIT DATE March 07, 2023 OUTPATIENT VISIT TYPE NEW PRIMARY CARE PHYSICIAN: Ricki Griffin, WAGE CONCILIATOR, PLASTIC MOLDING OPERATOR REFERRING PHYSICIAN: No referring provider defined for [...] of ventricular tachycardia. She was transferred to [facility] for possible ICD placement. [...] BP monitoring 5. 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 Moe Washington to be scheduled. PAST MEDICAL HISTORY Diagnosis Date Cataract of left eye COPD (chronic obstructive pulmonary disease) (HCC) Dilated cardiomyopa (more content not included)...[facility] [id number] Note HNO ID: [id number] Author: Carlo Gallardo Service: ? Author Type: ? Type: Plan of Care Filed: 03/01/2023 4:14 PM Note Text: PHARMACY BEDSIDE DELIVERY SERVICE Patient Name: Vishal George The marked outpatient medications were Filled at: [place] and delivered to the patient's bedside to [...] per tablet Carlo Gallardo PAGER: Carlo Gallardo ([facility]) [phone] March 01, 2023 4:12 [facility]05-19-2023 NoteHNO ID: [id number] Author: Oly Guzmán DO Service: Hospital Medicine [...] assessment, plan, and treatment Other, please specify [facility] 02-28-2023 NoteHNO ID: [id number] Author: Oly Guzmán DO Service: Hospital Medicine Author Type: Physician Type: Progress Notes Filed: 02/28/2023 4:41 PM Note Text: DEPARTMENT OF HOSPITAL MEDICINE PROGRESS NOTE SERVICE DATE: 02/28/2023 SERVICE TIME: 4:29 PM Hospital Medicine/Primary Attending: Oly Guzmán, DO NIGHT AND WEEKEND COVERAGE: DEXTER COVERAGE: After 7pm, please call cross cover pager #[phone] Subjective She denies current chest pain, lightheadedness, syncope, shortness of breath, nausea or vomiting INTERVAL HPI: This is a 62-year-old female with known congestive heart failure systolic and diastolic, CAD status post stent who presented to [facility] a few days ago for severe [...] was a planned to be discharged from [place], but then she had a 34 run of V. tach/wide-complex tachycardia so decision was to transfer her to [facility] for ICD evaluation as [...] telemetry Active Problems: Coronary artery disease involving gambell coronary artery POA: Yes Assessment AND Plan: [...] -- 02/26/23 1645 activity - mobilize patient (tx,sc) VTE Prophylaxis:On hold pending need for EP procedure Disposition: To be determined Plan of care discussed with: Provider, RN, Patient SIGNATURE: Oly Guzmán DO PATIENT NAME: Vishal George DATE: February 28, 2023 TIME: 4:29 PM etx [id number][facility]05-17-[facility]23 NoteHNO ID: [id number] Author: Oly Guzmán DO Service: Hospital Medicine Author Type: Physician Type: Progress Notes Filed: 02/27/2023 2:21 PM Note Text: DEPARTMENT OF HOSPITAL MEDICINE PROGRESS NOTE SERVICE DATE: 02/27/2023 SERVICE TIME: 2:09 PM Hospital Medicine/Primary Attending: Oly Guzmán DO NIGHT AND WEEKEND COVERAGE: DEXTER COVERAGE: After 7pm, please call cross cover pager #[phone] Subjective She denies current chest pain, lightheadedness, syncope, shortness of breath, nausea or vomiting INTERVAL HPI: This is a 62-year-old female with known congestive heart failure systolic and diastolic, CAD status post stent who presented to [facility] a few days ago for severe [...] plan to transition her to [facility]. The patient was a planned to be discharged from [place], but then she had a 34 run of V. tach/wide-complex tachycardia so decision was to transfer her to [facility] for ICD evaluation as [...] telemetry Active Problems: Coronary artery disease involving gambell coronary artery POA: Yes Assessment AND Plan: [...] -- 02/26/23 1645 activity - mobilize patient (tx,sc) VTE Prophylaxis:On hold pending need for EP procedure Disposition: To be determined Plan of care discussed with: Provider, RN, Patient SIGNATURE: Oly Guzmán DO PATIENT NAME: Vishal George DATE: February 27, 2023 TIME: 2:09 PM etx [id number]-[facility]12-09-2022 HCoV 229E RNA FERCHO+non-probe Ql (Nph)Not Detected *NA* (09/21/22 5:46 PM)AH Auto Viro/Sero [id number] History of Present illness Narrative* Jackie Schneider [...] - ENDOSCOPY NAME: Vishal George CLINIC NO.: [id number] DATE OF SERVICE: 09/07/2022 : 1960 REFERRING PHYSICIAN: Ricki Griffin, WAGE CONCILIATOR, PLASTIC MOLDING OPERATOR Vishal is a patient I am following [...] which included preparing to see the patient, [id number] patient care, completing clinical documentation, obtaining and/or reviewing separately obtained history, counseling and educating the patient/family/caregiver, ordering medications, namraat ts, or procedures, independently interpreting results (not separately reported), and communicating results to the patient/family/caregiver. Jackie Schneider PA-C documented in this encounterWestern [facility] Hospital11-02-2022 Miscellaneous Notes* Letter - Mammography Coordinator - 08/15/2022 11:32 AM EDT August 15, 2022 PID: [id number] Vishal George [address] [place] [address] Dear Ariel, We are pleased to inform [...] report will be [facility] as part of your permanent medical record and are available for your continuing care. Thank you for allowing us to help in meeting your health care needs. Sincerely, Dr. Kate Interpreting Radiologist [facility] (Normal over 40) documented in this encounterWestern Reserve Hospital11-01-2022 History of Present illness Narrative* Aracelis Lozoya MD - 08/14/2022 8:42 AM EDT Vishal is a 62 year old who presents for an annual gynecologic exam without complaints. Working at [employer]. Admits to drinking 42 can of beer [...] L2 SAB1 IAB0 Ectopic0 Multiple0 Live Births0 Polarity Tester History LMP: 07/21/2012, Postmenopausal Age at Menarche: Age at First : Age at Menopause: Polarity Tester History Comments: Sexual Activity: Yes; Male Contraception: [...] external genitalia normal, normal Bartholin's glands, urethra, Mcdonald's glands, no vulvar lesions, no cervical lesions, [...] declines at this time. Aracelis Yoder MD Flyer Repairer offered: Patient declines. documented in this encounterWestern [facility] Hospital10-27-2022 Nurse Note* Leslie Hendrix RN - 08/09/2022 11:48 AM EDT Patient arrived laying on left side. States she is not in any pain at this time. Patient's abdomen appears to be nondistended and soft to palpation. Patient encouraged to belch or pass gas. documented in this encounterWestern Reserve Hospital10-27-2022 History and physical note * Sony Cedeño MD - 08/09/2022 11:30 AM EDT Images from the original note were not included. HISTORY AND PHYSICAL Vishal Formaners 1960 REFERRING PHYSICIAN: TRUDY Rendon CNP CHIEF COMPLAINT: Follow Up ([facility] ER 07/12/22) HPI: The patient is [...] entered by the nurse and reviewed by nh Nursing Notes: Alix GilAUTUMN 07/17/2022 2:57 PM [...] letter was sent to Dr. Ricki Griffin, WAGE CONCILIATOR, PLASTIC MOLDING OPERATOR indicating the above finding for this patient. [...] 2022 TIME: 10:43 AM documented in this encounterWestern Reserve Hospital10-20-2022 Miscellaneous Notes* Telephone Encounter - Halima [...] help. Halima Vermilya, RN documented in this encounterWestern Reserve Hospital10-04-2022 History of Present illness Narrative* Sony Cedeño MD - 07/17/2022 3:08 PM EDT HISTORY AND PHYSICAL Vishal George 1960 REFERRING PHYSICIAN: TRUDY Rendon, MELODY CHIEF COMPLAINT: Follow Up ([facility] ER 07/12/22) HPI: The patient is [...] the request of Dr. Ricki Griffin, TRUDY, PLASTIC MOLDING OPERATOR for my opinion and advice regarding Epigastric [...] reviewed by me Nursing Notes: Alix Gil ACTIVE DIRECTORY SPECIALIST 07/17/2022 2:57 PM Signed REVIEW OF SYSTEMS: [...] letter was sent to Dr. Ricki Griffin, WAGE CONCILIATOR, PLASTIC MOLDING OPERATOR indicating the above finding for this patient. [...] Sony Cedeño III, MD documented in this encounterWestern Reserve Hospital10-04-2022 Nurse Note* Alix Gil, ACTIVE DIRECTORY SPECIALIST - 07/17/2022 2:50 PM EDT REVIEW [...] 2015 Alix Gil LPN documented in this encounterWestern [facility] Hospital11-28-2012 History of Past illness Narrative* Problem Noted Date Resolved Date Unspecified essential hypertension 09/10/2012 08/29/2016 PMDD (premenstrual dysphoric disorder) 2 07/06/2015 Perimenopausal 09/10/2012 07/06/2015 documented as of this encounter (statuses as of 07/17/2022) [address]28-2012 History of Past illness Narrative* Problem Noted Date Resolved Date Unspecified essential hypertension 09/10/2012 08/29/2016 PMDD (premenstrual dysphoric disorder) 2 07/06/2015 Perimenopausal 09/10/2012 07/06/2015 documented as of this encounter (statuses as of 08/14/2022) [facility] History of Past illness Narrative* Problem Noted Date Resolved Date Unspecified essential hypertension 09/10/2012 08/29/2016 PMDD (premenstrual dysphoric disorder) 2 07/06/2015 Perimenopausal 09/10/2012 07/06/2015 documented as of this encounter (statuses as of 08/15/2022) [address]28-2012 History of Past illness Narrative* Problem Noted Date Resolved Date Unspecified essential hypertension 09/10/2012 08/29/2016 PMDD (premenstrual dysphoric disorder) 2 07/06/2015 Perimenopausal 09/10/2012 07/06/2015 documented as of this encounter (statuses as of 08/17/2022) [address]28-2012 History of Past illness Narrative* Problem Noted Date Resolved Date Unspecified essential hypertension 09/10/2012 08/29/2016 PMDD (premenstrual dysphoric disorder) 2 07/06/2015 Perimenopausal 09/10/2012 07/06/2015 documented as of this encounter (statuses as of 09/07/2022) [address]28-2012 History of Past illness Narrative* Problem Noted Date Resolved Date Unspecified essential hypertension 09/10/2012 08/29/2016 PMDD (premenstrual dysphoric disorder) 2 07/06/2015 Perimenopausal 09/10/2012 07/06/2015 documented as of this encounter (statuses as of 03/25/2023) [address]28-2012 History of Past illness Narrative* Problem Noted Date Diagnosed Date Resolved Date Unspecified essential hypertension 09/10/2012 08/29/2016 PMDD (premenstrual dysphoric disorder) 09/10/2012 07/06/2015 Perimenopausal 09/10/2012 07/06/2015 documented as of this encounter (statuses as of 07/12/2023) [address]28-2012 History of Past illness Narrative* Problem Noted Date Diagnosed Date Resolved Date Unspecified essential hypertension 09/10/2012 08/29/2016 PMDD (premenstrual dysphoric disorder) 09/10/2012 07/06/2015 Perimenopausal 09/10/2012 07/06/2015 documented as of this encounter (statuses as of 08/18/2023) [address]28-2012 History of Past illness Narrative* Problem Noted Date Diagnosed Date Resolved Date Unspecified essential hypertension 09/10/2012 08/29/2016 PMDD (premenstrual dysphoric disorder) 09/10/2012 07/06/2015 Perimenopausal 09/10/2012 07/06/2015 documented as of this encounter (statuses as of 08/18/2023) [facility] of Past illness Narrative* Problem Noted Date Diagnosed Date Resolved Date Unspecified essential hypertension 09/10/2012 08/29/2016 PMDD (premenstrual dysphoric disorder) 09/10/2012 07/06/2015 Perimenopausal 09/10/2012 07/06/2015 documented as of this encounter (statuses as of 08/31/2023) [facility] of Past illness Narrative* Problem Noted Date Diagnosed Date Resolved Date Unspecified essential hypertension 09/10/2012 08/29/2016 PMDD (premenstrual dysphoric disorder) 09/10/2012 07/06/2015 Perimenopausal 09/10/2012 07/06/2015 documented as of this encounter (statuses as of 12/27/2023) [facility] Future Appointments Appointment Date:09/28/2022 03:20:00 PM Scheduled Provider:RICKI GRIFFIN APRN, CNP Location:[facility] Appointment Type:[facility] Evaluation + Plan note Future Appointments Appointment Date:06/11/2025 02:20:00 PM Scheduled Provider:RICKI GRIFFIN APRN, CNP Location:[facility] Appointment Type:[facility] Follow Up Future Scheduled Tests Laboratory* C-Reactive [...] Chest 2 Views (PA & Lateral) 03/01/25 [facility] Evaluation + Plan note Future Appointments Appointment Date:12/10/2025 02:20:00 PM Scheduled Provider:RICKI GRIFFIN APRN, CNP Location:[facility] Appointment Type: OV Future Scheduled [...] Chest 2 Views (PA & Lateral) 03/01/25 [facility] Evaluation noteNo assessment information available [facility] Work Phone: [facility] note* Diagnosis Epigastric pain- Primary Abdominal pain, epigastric Nausea and vomiting, unspecified vomiting type documented in this encounter [facility] note* Diagnosis Encounter for gynecological examination (general) (routine) without abnormal findings- Primary Encounter for screening mammogram for malignant neoplasm of breast Other screening mammogram Screening for osteoporosis Special screening for osteoporosis [facility] Other gastritis without bleeding- Primary [facility] [place]* Diagnosis Onset Date Resolution Status 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 Dilated cardiomyopathy acute Heart failure with reduced ejection fraction acute Hypoxia acute Nausea & vomiting acute Pneumonia acute Sepsis acute [facility] Work Phone: evaluation note* Diagnosis Onset Date Resolution Status 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 Coronary artery disease acut e Dyslipidemia acute Hypoxia acute Nausea & vomiting acute V-tach acute Acute on chronic combined sy stolic and diastolic heart failure chronic HTN (hypertension) chronic [facility] Work Phone: Evaluation note* Diagnosis Onset Date Resolution Status V-tach acute Acute on chronic combined sy stolic and diastolic heart failure resolved Hypoxia resolved Nausea & vomiting resolved Epigastric pain [facility] Work Phone: Evaluation note* Diagnosis Onset Date Resolution Status 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 Acute on chronic combined sy stolic and diastolic heart failure resolved Hypoxia resolved Nausea & vomiting resolved Essential hypertension acute Hyperlipidemia acute Ischemic cardiomyopathy acut e Nonsustained ventricular tachycardia acute 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 Stented coronary artery February 25, 2023 [facility] Work Phone: Evaluation note* Diagnosis Chronic systolic heart failure (HCC)- Primary Chronic systolic heart failure Primary hypertension Unspecified essential hypertension 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 Hyperlipidemia, unspecified hyperlipidemia type Ischemic cardiomyopathy Other specified forms of chronic ischemic heart disease [facility] [place] [facility]* Diagnosis Epigastric pain- Primary Abdominal pain, epigastric Nausea and vomiting, unspecified vomiting type [facility] [place] [facility]* Diagnosis Encounter for screening mammogram for malignant neoplasm of breast Other screening mammogram [facility] [place] [facility]* Diagnosis Onset Date Resolution Status Essential hypertension acute Hyperlipidemia acute Ischemic cardiomyopathy acut e Nonsustained ventricular tachycardia acute 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 Stented coronary artery February 25, 2023 [facility] Essential hypertension acute Hyperlipidemia acute Ischemic cardiomyopathy acut e Nonsustained ventricular tachycardia acute 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 Stented coronary artery February 25, 2023 [facility] Work Phone: Evaluation note* Diagnosis Onset Date Resolution Status Essential hypertension acute Hyperlipidemia acute Ischemic cardiomyopathy acut e Nonsustained ventricular tachycardia acute 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 Stented coronary artery February 25, 2023 [facility] Work Phone: Evaluation note* Diagnosis Chronic systolic heart failure (HCC)- Primary Chronic systolic heart failure Primary hypertension Unspecified essential hypertension 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 Hyperlipidemia, unspecified hyperlipidemia type Ischemic cardiomyopathy Other specified forms of chronic ischemic heart disease [facility] [place] [facility]* Diagnosis Encounter for screening mammogram for malignant neoplasm of breast Other screening mammogram documented in this encounter [facility] note* Diagnosis Encounter for gynecological examination (general) (routine) without abnormal findings- Primary Encounter for screening for human papillomavirus (HPV) Special screening examination for human papillomavirus (HPV) Pap smear for cervical cancer screening Screening for malignant neoplasm of the cervix Encounter for screening mammogram for breast cancer Encounter for screening for osteoporosis Special screening for osteoporosis Asymptomatic postmenopausal status documented in this encounter [facility] note* Diagnosis Encounter for screening for osteoporosis Special screening for osteoporosis Asymptomatic postmenopausal status documented in this encounter [facility] note* Diagnosis Onset Date Resolution Status Admit Date Essential hypertension acute Se ptember 2024 12:58pm Hyperlipidemia acute June 30, 2025 12:58pm Ischemic cardiomyopathy acute S eptember 2024 12:58pm Nonsustained ventricular tachycardia acute June 30, 2025 12:58pm Stented coronary artery February 25, 2023 chronic June 30, 2025 12:58pm [facility] Work Phone: Hospital course Narrative No data available for this section [facility] Hospital Discharge instructions No data available for this section [facility] Progress note No data available for this section [facility] Reason for referral (narrative)* Outpatient Procedure (Routine) - Authorized Specialty Diagnoses / Procedures Referred By Contac t Referred To Contact [facility] Diagnoses Epigastric pain Nausea and vomiting, unspecified vomiting type Procedures EGD DIAGNOSTIC ESOPHAGOGASTRODUODENOSC OPY TRANSORAL DIAGNOSTIC Sony Cedeño MD [address] [place] [address] [address] Referral ID Status Reason Start Date Expiration Date Visits Requested Visits Authorized [id number] Authorized Auto-Generat ed Referral 07/17/2022 07/17/2023 1 1 [facility] for referral (narrative)* Outpatient Procedure (Routine) - Closed Specialty Diagnoses / Procedures Referred By Dayan woods Referred To Contact [facility] Diagnoses Epigastric pain Nausea and vomiting, unspecified vomiting type Procedures EGD DIAGNOSTIC ESOPHAGOGASTRODUODENOSC OPY TRANSORAL DIAGNOSTIC Sony Cedeño MD [address] [place] [address] [address] Referral ID Status Reason Start Date Expiration Date V isits Requested Visits Authorized [id number] Closed Auto-Generate d Referral 07/17/2022 07/17/2023 1 1 T [facility] for referral (narrative)* Diagnostic Procedure Only (Routine) - Closed Specialty Diagnoses / Procedures Referred By Dayan woods Referred To Contact [facility] Diagnoses Encounter for screening mammogram for malignant neoplasm of breast Procedures JON SCREENING W JOSHUA SCREENING DIGITAL BREAST TOMOSYNTHESIS BI SCREENING MAMMOGRAPHY BI 2-VIEW BREAST INC CAD Aracelis Mccormick MD [address] [place] [address] [facility] [address] [place] [phone] Referral ID Status Reason Start Date Expiration Date V isits Requested Visits Authorized [id number] Closed Auto-Generate d Referral 09/14/2024 10/14/2025 1 1 [facility] for referral (narrative)* Diagnostic Procedure Only (Routine) - Authorized Specialty Diagnoses / Procedures Referred By Dayan woods Referred To Contact [facility] Diagnoses Encounter for screening for osteoporosis Asymptomatic postmenopausal status Procedures DXA-AXIAL SKELETON DXA BONE DENSITY STUDY / SITES AXIAL SKEL Aracelis Mccormick MD [address] [place] [address] [place] [address] Referral ID Status Reason Start Date Expiration Date Visits Requested Visits Authorized [id number] Authorized Auto-Generat ed Referral 09/21/2024 10/21/2025 1 1 * Diagnostic Procedure Only (Routine) - Authorized Specialty Diagnoses / Procedures Referred By Dayan woods Referred To Contact [facility] Diagnoses Encounter for screening mammogram for breast cancer Procedures JON SCREENING W JOSHUA SCREENING DIGITAL BREAST TOMOSYNTHESIS BI SCREENING MAMMOGRAPHY BI 2-VIEW BREAST INC CAD Aracelis Mccormick MD [address] [place] [id number] [facility] [address] [place] [address] Referral ID Status Reason Start Date Expiration Date Visits Requested Visits Authorized [id number] Authorized Auto-Generat ed Referral 09/21/2024 10/21/2025 1 1 [facility] for referral (narrative)No reason for referral [facility] Work Phone: Reason for visit Narrative* Outpatient Procedure (Routine) - Closed Specialty Diagnoses / Procedures Referred By Dayan woods Referred To Contact [facility] Diagnoses Epigastric pain Nausea and vomiting, unspecified vomiting type Procedures EGD DIAGNOSTIC ESOPHAGOGASTRODUODENOSC OPY TRANSORAL DIAGNOSTIC Sony Cedeño MD [address] [place] [address] [facility] [address] [place] [address] Referral ID Status Reason Start Date Expiration Date V isits Requested Visits Authorized [id number] Closed Auto-Generate d Referral 07/17/2022 07/17/2023 1 1 [facility] for visit Narrative* Diagnostic Procedure Only (Routine) - Closed Specialty Diagnoses / Procedures Referred By Dayan t Referred To Contact [facility] Diagnoses Encounter for screening mammogram for malignant neoplasm of breast Procedures JON SCREENING W JOSHUA SCREENING DIGITAL BREAST TOMOSYNTHESIS BI SCREENING MAMMOGRAPHY BI 2-VIEW BREAST INC CAD Aracelis Mccormick MD [address] [place] [address] [facility] [address] [place] [phone] Referral ID Status Reason Start Date Expiration Date V isits Requested Visits Authorized [id number] Closed Auto-Generate d Referral 08/14/2022 09/13/2023 1 1 [facility] for visit Narrative* Diagnostic Procedure Only (Routine) - Closed Specialty Diagnoses / Procedures Referred By Dayan woods Referred To Contact [facility] Diagnoses Encounter for screening mammogram for malignant neoplasm of breast Procedures JON SCREENING W JOSHUA SCREENING DIGITAL BREAST TOMOSYNTHESIS BI SCREENING MAMMOGRAPHY BI 2-VIEW BREAST INC CAD Aracelis Mccormick MD [address] [place] [address] [facility] [email or web address] [address] Referral ID Status Reason Start Date Expiration Date V isits Requested Visits Authorized [id number] Closed Auto-Generate d Referral 09/14/2024 10/14/2025 1 1 [facility] for visit Narrative* Diagnostic Procedure Only (Routine) - Closed Specialty Diagnoses / Procedures Referred By Dayan woods Referred To Contact XR IMAGING Diagnoses Encounter for screening for osteoporosis Asymptomatic postmenopausal status Procedures DXA-AXIAL SKELETON DXA BONE DENSITY STUDY / SITES AXIAL SKEL Aracelis Mccormick MD [address] [place] [address] [place] [id number] Referral ID Status Reason Start Date Expiration Date V isits Requested Visits Authorized [id number] Closed Auto-Generate d Referral 09/21/2024 10/21/2025 1 1 [facility] Chief Complaint and Reason for Visit [...] PCI w/coronary stenting H FU Amb Documentation AGSD 03/29 NEEDS PRIOR TO 02/26 FOR MED. [...] PCI w/coronary stenting H FU Amb Documentation AGSD 03/29 NEEDS PRIOR TO 02/26 FOR MED. [...] April 20, 2021 9 :23pm Power of Director Of Acquisition Marketing No April 20, 2021 9:23pm Advance Directive Response Recorded Date/ Time Advance Directives No September 10:47am Living Will No July 12, 2022 11:49am Power of Director Of Acquisition Marketing No June 11:49am Advance Directive Response Recorded Date/ Time Advance Directives No September 9:47am Living Will No July 14 5:26pm Power of Director Of Acquisition Marketing No July 14 5:26pm Advance Directive Response Recorded Date/ Time Advance Directives No September 10:47am Living Will No February 22, 2023 8 :34am Power of Director Of Acquisition Marketing No February 22, 2023 8:34am Advance Directive Response Recorded Date/ Time Advance Directives No September 10:47am Living Will No February 22, 2023 4 :58pm Power of Director Of Acquisition Marketing No February 22, 2023 4:58pm Advance Directive Response Recorded Date/ Time Advance Directives No September 10:47am Living Will No February 22, 2023 9 :38pm Power of Director Of Acquisition Marketing No February 22, 2023 9:38pm Advance Directive Response Recorded Date/ Time Advance Directives on File No February 132022 8:44am Advance Directives No September 10:47am Living Will No March 13, 2023 8 :44am Power of Director Of Acquisition Marketing No March 13, 2023 8:44am Latest Code Status on File Code Status Date Activated Date Inactivated Comments Full Code 02/26/2023 4:37 PM 03/01/2023 8:19 PM Full Code Order Discussed With: Patient Advance Directive Response Recorded Date/ Time Advance Directives on File No February 132022 8:44am Advance Directives No September 10:47am Living Will No April 24, 2023 2:26pm Power of Director Of Acquisition Marketing No April 24 2:26pm Latest Code Status [...] No April 24, 2023 1:26pm Power of Director Of Acquisition Marketing No April 24 1:26pm Date Activated Date [...] Do you have a Healthcare Power of Director Of Acquisition Marketing? No April 24, 2023 2:26pm Advance Directives No September 10:47am Advance Directive Response Recorded Date/ Time Advance Directives No September 10:47am Summary Purpose Medications Administered Section Inactive Administered Medications - up to 3 most recent administrations Medication Order MAR Action Action Date Dose Rate Site benzocaine 20% 1 [place] (TOPEX) 1 [place], TOPICAL, DIRECTED, Starting on Corrina 08/09/22 at 1200, Until [place]rina 08/09/22 at 1559, DOSING DIRECTED BY PHYSICIAN FOR PROCEDURAL SEDATION ONLY - Pharmaceutical Waste: Aerosol -, Intraprocedure Given 08/09/2022 11:30 AM EDT 1 [place] diphenhydrAMINE 12.5-50 mg injection (BENADRYL) 12.5-50 mg, [...] or prosecute any alcohol or drug abuse patient.[facility] the event this information is protected by the Federal Confidentiality of Alcohol and Drug Abuse Patient Records regulations: The Federal rules restrict any use of the information to criminally investigate or prosecute any alcohol or drug abuse patient.[facility] the event this information is protected by the Federal Confidentiality of Alcohol and Drug Abuse Patient Records regulations: The Federal rules restrict any use of the information to criminally investigate or prosecute any alcohol or drug abuse patient.[facility] the event this information is protected by the Federal Confidentiality of Alcohol and Drug Abuse Patient Records regulations: The Federal rules restrict any use of the information to criminally investigate or prosecute any alcohol or drug abuse patient.[facility] the event this information is protected by the Federal Confidentiality of Alcohol and Drug Abuse Patient Records regulations: The Federal rules restrict any use of the information to criminally investigate or prosecute any alcohol or drug abuse patient.[facility] the event this information is protected by the Federal Confidentiality of Alcohol and Drug Abuse Patient Records regulations: The Federal rules restrict any use of the information to criminally investigate or prosecute any alcohol or drug abuse patient.[facility] the event this information is protected by the Federal Confidentiality of Alcohol and Drug Abuse Patient Records regulations: The Federal rules restrict any use of the information to criminally investigate or prosecute any alcohol or drug abuse patient.[facility] the event this information is protected by the Federal Confidentiality of Alcohol and Drug Abuse Patient Records regulations: The Federal rules restrict any use of the information to criminally investigate or prosecute any alcohol or drug abuse patient.[facility] the event this information is protected by the Federal Confidentiality of Alcohol and Drug Abuse Patient Records regulations: The Federal rules restrict any use of the information to criminally investigate or prosecute any alcohol or drug abuse patient.[facility] the event this information is protected by the Federal Confidentiality of Alcohol and Drug Abuse Patient Records regulations: The Federal rules restrict any use of the information to criminally investigate or prosecute any alcohol or drug abuse patient.[facility] the event this information is protected by the Federal Confidentiality of Alcohol and Drug Abuse Patient Records regulations: The Federal rules restrict any use of the information to criminally investigate or prosecute any alcohol or drug abuse patient.[facility] the event this information is protected by the Federal Confidentiality of Alcohol and Drug Abuse Patient Records regulations: The Federal rules restrict any use of the information to criminally investigate or prosecute any alcohol or drug abuse patient.[facility] the event this information is protected by the Federal Confidentiality of Alcohol and Drug Abuse Patient Records regulations: The Federal rules restrict any use of the information to criminally investigate or prosecute any alcohol or drug abuse patient.[facility] the event this information is protected by the Federal Confidentiality of Alcohol and Drug Abuse Patient Records regulations: The Federal rules restrict any use of the information to criminally investigate or prosecute any alcohol or drug abuse patient.[facility] the event this information is protected by the Federal Confidentiality of Alcohol and Drug Abuse Patient Records regulations: The Federal rules restrict any use of the information to criminally investigate or prosecute any alcohol or drug abuse patient.[facility] the event this information is protected by the Federal Confidentiality of Alcohol and Drug Abuse Patient Records regulations: The Federal rules restrict any use of the information to criminally investigate or prosecute any alcohol or drug abuse patient.[facility] Reason for Visit (unrecogniz ed section and content) Reason Comments Follow Up [facility] ER 07/12/22 Reason Comments Yearly Exam Reason Comments Patient Question Reason Comments 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 Breathing Problem Reason Comments Breathing Problem CHF Reason Comments Yearly Exam Reason Comments Results Care Teams (unrecognized sec tion and content) Care Team Personnel Name: RICKI GRFIFIN DESIGN ENGINEER - PLASTIC MOLDING OPERATOR Position: P4 Advanced Tie Up Worker Member Role: Primary Care Physician Address: [address] [place] [address]- [place] Telecom: Care Team Related Persons Name: BRY VERNON Physician Recruiter Relationship Specialty Start Date End Date Ricki Griffin, PLASTIC MOLDING OPERATOR [address] [place] [address] PCP - General Family Medicine 08/08/16 Physician Recruiter Relationship Specialty Start Date End Date Ricki Griffin, PLASTIC MOLDING OPERATOR [address] [place] [address] PCP - General Family Medicine 08/08/16 Physician Recruiter Relationship Specialty Start Date End Date Ricki Griffin, PLASTIC MOLDING OPERATOR [address] [place] [address] PCP - General Family Medicine 08/08/16 Physician Recruiter Relationship Specialty Start Date End Date Ricki Griffin, PLASTIC MOLDING OPERATOR [address] [place] [address] PCP - General Family Medicine 08/08/16 Physician Recruiter Relationship Specialty Start Date End Date Ricki Griffin, PLASTIC MOLDING OPERATOR [address] [place] [address] PCP - General Family Medicine 08/08/16 Team Status: Active Member Role Status Dates Ricki Griffin REGISTER CLERK, REGISTER CLERK-C Family Provider Activ e Ricki Griffin REGISTER CLERK, REGISTER CLERK-C Primary Care Provider Active Team Status: Inactive Member Role Status Dates Ricki Griffin REGISTER CLERK, REGISTER CLERK-C Primary Care Provider Active Dr. Edmundo Monae , DO Attending Provider, Génesis hennessy Active Team Status: Inactive Member Role Status Dates Ricki Griffin REGISTER CLERK, REGISTER CLERK-C Primary Care Provider Active Dr. Aleksandar Rain MD Attending Provider, Emergency Pro vider Active Team Status: Inactive Member Role Status Dates Ricki Hugh Griffin REGISTER CLERK, REGISTER CLERK-C Primary Care Provider, Attending Provider, Referring Provider Active Team Status: Active Member Role Status Dates Ricki Hugh Grififn REGISTER CLERK, REGISTER CLERK-C Primary Care Provider Active Dr. Jose Antonio Reeves MD Attending Provider Active Team Status: Active Member Role Status Dates Ricki Hugh Griffin REGISTER CLERK, REGISTER CLERK-C Primary Care Provider, Attending Provider, Referring Provider Active Team Status: Inactive Member Role Status Dates Ricki Hugh Griffin REGISTER CLERK, REGISTER CLERK-C Primary Care Provider Active Dr. Arcadio Koehler MD Emergency Provider Active Team Status: Active Member Role Status Dates Ricki Hugh Griffin REGISTER CLERK, REGISTER CLERK-C Primary Care Provider Active Dr. Dinesh Burris , DO Emergency Provider Active Dr. Julio César Arndt MD Admit Provider, Attending Pro vider Active Team Status: Active Member Role Status Dates Ricki Griffin REGISTER CLERK, REGISTER CLERK-C Primary Care Provider Active Dr. Dinesh Burris , DO Emergency Provider Active Dr. Julio César Arndt MD Admit Provider, Other Provide r Active Dr. Zulma Brunner , DO Other Provider Active Dr. Rohan Awan MD Attending Provider, Othe r Provider Active Dr. Kt Romero , Other Provider Active Team Status: Active Member Role Status Dates Ricki Hugh Griffin REGISTER CLERK, REGISTER CLERK-C Primary Care Provider Active Dr. Dinesh Burris DO Emergency Provider Active Dr. Julio César Arndt MD Admit Provider, Other Provide r Active Dr. Zulma Brunner DO Attending Provider, Other Provide r Active Dr. Rohan Awan MD Other Provider Active Dr. Kt Romero DO Other Provider Active Team Status: Active Member Role Status Dates Ricki Griffin REGISTER CLERK, REGISTER CLERK-C Primary Care Provider Active Dr. Dinesh Burris DO Emergency Provider Active Dr. Julio César Arndt MD Admit Provider, Other Provide r Active Dr. Zulma Brunner , DO Other Provider Active Dr. Rohan Awan MD Other Provider Active Dr. Kt Romero , Other Provider Active Dr. Jose Antonio Reeves MD Attending Provider Active Team Status: Active Member Role Status Dates Ricki Griffin REGISTER CLERK, REGISTER CLERK-C Primary Care Provider Active Dr. Dinesh Burris , DO Emergency Provider Active Dr. Julio César Arndt MD Admit Provider, Other Provide r Active Dr. Zulma Brunner , DO Other Provider Active Dr. Rohan Awan MD Other Provider Active Dr. Kt Romero , DO Attending Provider, Other Prov ider Active Team Status: Active Member Role Status Dates Ricki Griffin REGISTER CLERK, REGISTER CLERK-C Primary Care Provider Active Dr. Dinesh Burris , DO Emergency Provider Active Dr. Julio César Arndt MD Admit Provider, Other Provide r Active Dr. Zulma Brunner , DO Attending Provider Active Dr. Rohan Awan MD Other Provider Active Dr. Kt Romero , DO Other Provider Active Team Status: Active Member Role Status Dates Ricki Griffin REGISTER CLERK, REGISTER CLERK-C Primary Care Provider Active Dr. Dinesh Burris [...] Inactive Member Role Status Dates Ricki Griffin REGISTER CLERK, REGISTER CLERK-C Primary Care Provider, Referring Provider Active Dr. Kt Romero , Attending Provider Active Team Status: Inactive Member Role Status Dates Ricki Griffin REGISTER CLERK, REGISTER CLERK-C Primary Care Provider Active Dr. Arcadio Koehler MD Attending Provider, Emergency Provider Active Team Status: Inactive Member Role Status Dates Ricki Griffin REGISTER CLERK, REGISTER CLERK-C Primary Care Provider Active Dr. Dinesh Burris , DO Emergency Provider Active Dr. Julio César Arndt MD Admit Provider, Other Provide r Active Dr. Zulma Brunner , DO Attending Provider Active Dr. Rohan Awan MD Other Provider Active Dr. Kt Romero , DO Other Provider Active Team Status: Inactive Member Role Status Dates Ricki Griffin REGISTER CLERK, REGISTER CLERK-C Primary Care Provider Active Dr. Jose Antonio Reeves MD Attending Provider, Referring Pro vider Active Physician Recruiter Relationship Specialty Start Date End Date Ricki Griffin PLASTIC MOLDING OPERATOR [address] [place] [address] PCP - General Family Medicine 08/08/16 Team Status: Active Member Role Status Dates Ricki Griffin REGISTER CLERK, REGISTER CLERK-C Primary Care Provider Active Dr. Dinesh Burris , DO Emergency Provider Active Dr. Julio César Arndt MD Admit Provider, Other Provide r Active Dr. Zulma Brunner , DO Referring Provider, Other Provide r Active Dr. Rohan Awan MD Other Provider Active Dr. Kt Romero , DO Attending Provider, Other Prov ider Active Team Status: Inactive Member Role Status Dates Ricki Griffin REGISTER CLERK, REGISTER CLERK-C Primary Care Provider, Referring Provider Active Lashay Prater REGISTER CLERK, REGISTER CLERK-C Attending Provider Active Team Status: Active Member Role Status Dates Ricki Griffin REGISTER CLERK, REGISTER CLERK-C Primary Care Provider Active Sandra Moreau Attending Provider Active Team Status: Active Member Role Status Dates Ricki Griffin REGISTER CLERK, REGISTER CLERK-C Primary Care Provider Active Dr. Jose Antonio Reeves MD Attending Provider, Referring Pro vider Active Team Status: Inactive Member Role Status Dates Ricki Griffin REGISTER CLERK, REGISTER CLERK-C Primary Care Provider Active Dr. Shira Oglesby MD Emergency Provider Active Team Status: Inactive Member Role Status Dates Ricki Griffin REGISTER CLERK, REGISTER CLERK-C Primary Care Provider Active Dr. Shira Oglesby MD Attending Provider, Emergency Provider Active Team Status: Inactive Member Role Status Dates Ricki Griffin REGISTER CLERK, REGISTER CLERK-C Primary Care Provider Active Lashay Prater REGISTER CLERK, REGISTER CLERK-C Attending Provider, Referring P gerhard Active Physician Recruiter Relationship Specialty Start Date End Date Ricki Griffin CNP [address] [place] [address] PCP - General Family Medicine 08/08/16 Physician Recruiter Relationship Specialty Start Date End Date Ricki Griffin CNP [address] [place] [address] PCP - General Family Medicine 08/08/16 Physician Recruiter Relationship Specialty Start Date End Date Ricki Griffin, PLASTIC MOLDING OPERATOR [address] [place] [address] PCP - General Family Medicine 08/08/16 Physician Recruiter Relationship Specialty Start Date End Date Ricki Griffin, PLASTIC MOLDING OPERATOR [address] [place] [address] PCP - General Family Medicine 08/08/16 Team Status: Active Member Role Status Dates Ricki Griffin REGISTER CLERK, REGISTER CLERK-C Primary Care Provider Active Lashay Prater REGISTER CLERK, REGISTER CLERK-C Attending Provider Active Physician Recruiter Relationship Specialty Start Date End Date Ricki Griffin, MELODY [address] [place] [address] PCP - General Family Medicine 08/08/16 Physician Recruiter Relationship Specialty Start Date End Date Ricik Griffin, MELODY [address] [place] [address] PCP - General Family Medicine 08/08/16 Physician Recruiter Relationship Specialty Start Date End Date Ricki Griffin, MELODY [address] [place] [address] PCP - General Family Medicine 08/08/16 Physician Recruiter Relationship Specialty Start Date End Date Ricki Griffin, MELODY [address] [place] [address] PCP - General Family Medicine 08/08/16 Physician Recruiter Relationship Specialty Start Date End Date Ricki Griffin, MELODY [address] [place] [address] PCP - General Family Medicine 08/08/16 Physician Recruiter Relationship Specialty Start Date End Date Ricki Griffin CNP [address] [place] [address] PCP - General Family Medicine 08/08/16 Team Status: Active Member Role Status Dates Ricki Griffin REGISTER CLERK, REGISTER CLERK-C Primary Care Provider Active Team Status: Inactive Member Role Status Dates Ricki Griffin REGISTER CLERK, REGISTER CLERK-C Primary Care Provider Active Start: December 072024 End: December 07, 2024 Ricki Griffin REGISTER CLERK, REGISTER CLERK-C Attending Provider Active Start: November End: December 07, 2024 Ricki Griffin REGISTER CLERK, REGISTER CLERK-C Referring Provider Active Start: November End: December 07, 2024 Team Status: Inactive Member Role Status Dates Ricki Griffin REGISTER CLERK, REGISTER CLERK-C Primary Care Provider Active Start: January 06, 2025 End: January 06, 2025 Ricki Griffin REGISTER CLERK, REGISTER CLERK-C Referring Provider Ac tive Start: January 06, 2025 End: January 06, 2025 Austen Castro REGISTER CLERK, REGISTER CLERK-C Attending Provider Active S tart: January 06, 2025 End: January 06, 2025 Team Status: Inactive Member Role Status Dates Ricki Griffin REGISTER CLERK, REGISTER CLERK-C Primary Care Provider Active Start: March 12, 2025 End: March 12, 2025 Dr. Jose Antonio Reeves MD Attending Provider Active S tart: March 12, 2025 End: March 12, 2025 Dr. Jose Antonio Reeves MD Referring Provider Active S tart: March 12, 2025 End: March 12, 2025 Team Status: Inactive Member Role Status Dates Ricki Griffin REGISTER CLERK, REGISTER CLERK-C Primary Care Provider Active Start: March 29, 2025 End: March 29, 2025 Austen Castro NP, REGISTER CLERK-C Attending Provider Active S tart: March 29, 2025 End: March 29, 2025 Austen Castro REGISTER CLERK, REGISTER CLERK-C Referring Provider Active S tart: March 29, 2025 End: March 29, 2025 Team Status: Active Member Role Status Dates Ricki Griffin REGISTER CLERK, REGISTER CLERK-C Primary Care Provider Active Start: March 29, 2025 Dr. Jose Antonio Reeves MD Attending Provider Active S tart: March 29, 2025 Team Status: Active Member Role Status Dates Ricki Griffin REGISTER CLERK, REGISTER CLERK-C Primary Care Provider Active Start: March 30, 2025 Lashay Prater REGISTER CLERK, REGISTER CLERK-C Attending Provider Active Start: March 30, 2025 Team Status: Active Member Role/Relationship Status Dates Ricki Griffin REGISTER CLERK, REGISTER CLERK-C Primary Care Provider Active Team Status: Inactive Member Role/Relationship Status Dates Ricki Griffin REGISTER CLERK, REGISTER CLERK-C Primary Care Provider Active Start: January 06, 2025 End: January 06, 2025 Ricki Griffin REGISTER CLERK, REGISTER CLERK-C Referring Provider Ac tive Start: January 06, 2025 End: January 06, 2025 Austen Castro REGISTER CLERK, REGISTER CLERK-C Attending Provider Active S tart: January 06, 2025 End: January 06, 2025 Team Status: Inactive Member Role/Relationship Status Dates Ricki Griffin REGISTER CLERK, REGISTER CLERK-C Primary Care Provider Active Start: March 12, 2025 End: March 12, 2025 Dr. Jose Antonio Reeves MD Attending Provider Active S tart: March 12, 2025 End: March 12, 2025 Dr. Jose Antonio Reeves MD Referring Provider Active S tart: March 12, 2025 End: March 12, 2025 Team Status: Inactive Member Role/Relationship Status Dates Ricki Griffin REGISTER CLERK, REGISTER CLERK-C Primary Care Provider Active Start: March 29, 2025 End: March 29, 2025 Austen Castro REGISTER CLERK, REGISTER CLERK-C Attending Provider Active S tart: March 29, 2025 End: March 29, 2025 Austen Castro REGISTER CLERK, REGISTER CLERK-C Referring Provider Active S tart: March 29, 2025 End: March 29, 2025 Team Status: Active Member Role/Relationship Status Dates Ricki Griffin REGISTER CLERK, REGISTER CLERK-C Primary Care Provider Active Start: March 29, 2025 Dr. Jose Antonio Reeves MD Attending Provider Active S tart: March 29, 2025 Team Status: Active Member Role/Relationship Status Dates Ricki Griffin REGISTER CLERK, REGISTER CLERK-C Primary Care Provider Active Start: March 30, 2025 Lashay Prater REGISTER CLERK, REGISTER CLERK-C Attending Provider Active Start: March 30, 2025 Team Status: Inactive Member Role/Relationship Status Dates Ricki Griffin REGISTER CLERK, REGISTER CLERK-C Primary Care Provider Active Start: April 30, 2025 End: April 30, 2025 Ricki Griffin REGISTER CLERK, REGISTER CLERK-C Attending Provider Ac tive Start: April 30, 2025 End: April 30, 2025 Ricki Griffin REGISTER CLERK, REGISTER CLERK-C Referring Provider Ac tive Start: April 30, 2025 End: April 30, 2025 Team Status: Active Member Role/Relationship Status Dates Ricki Griffin REGISTER CLERK, REGISTER CLERK-C Primary Care Provider Active Start: May 01, 2025 Ricki Griffin REGISTER CLERK, REGISTER CLERK-C Attending Provider Ac tive Start: May 01, 2025 Ricki Griffin REGISTER CLERK, REGISTER CLERK-C Referring Provider Ac tive Start: May 01, 2025 Team Status: Inactive Member Role/Relationship Status Dates Ricki Griffin REGISTER CLERK, REGISTER CLERK-C Primary Care Provider Active Start: May 01, 2025 End: May 01, 2025 Ricki Griffin REGISTER CLERK, REGISTER CLERK-C Attending Provider Ac tive Start: May 01, 2025 End: May 01, 2025 Ricki Griffin REGISTER CLERK, REGISTER CLERK-C Referring Provider Ac tive Start: May 01, 2025 End: May 01, 2025 Team Status: Inactive Member Role/Relationship Status Dates Ricki Griffin REGISTER CLERK, REGISTER CLERK-C Primary Care Provider Active Start: March 12, 2025 End: March 12, 2025 Dr. Jose Antonio Reeves MD Attending Provider Active S tart: March 12, 2025 End: March 12, 2025 Dr. Jose Antonio Reeves MD Referring Provider Active S tart: March 12, 2025 End: March 12, 2025 Team Status: Inactive Member Role/Relationship Status Dates Ricki Griffin REGISTER CLERK, REGISTER CLERK-C Primary Care Provider Active Start: March 29, 2025 End: March 29, 2025 Austen Castro REGISTER CLERK, REGISTER CLERK-C Attending Provider Active S tart: March 29, 2025 End: March 29, 2025 Austen Castro REGISTER CLERK, REGISTER CLERK-C Referring Provider Active S tart: March 29, 2025 End: March 29, 2025 Team Status: Active Member Role/Relationship Status Dates Ricki Griffin REGISTER CLERK, REGISTER CLERK-C Primary Care Provider Active Start: March 29, 2025 Dr. Jose Antonio Reeves MD Attending Provider Active S tart: March 29, 2025 Team Status: Active Member Role/Relationship Status Dates Ricki Griffin REGISTER CLERK, REGISTER CLERK-C Primary Care Provider Active Start: March 30, 2025 Lashay Prater REGISTER CLERK, REGISTER CLERK-C Attending Provider Active Start: March 30, 2025 Team Status: Inactive Member Role/Relationship Status Dates Ricki Griffin REGISTER CLERK, REGISTER CLERK-C Primary Care Provider Active Start: April 30, 2025 End: April 30, 2025 Ricki Griffin REGISTER CLERK, REGISTER CLERK-C Attending Provider Ac tive Start: April 30, 2025 End: April 30, 2025 Ricki Griffin REGISTER CLERK, REGISTER CLERK-C Referring Provider Ac tive Start: April 30, 2025 End: April 30, 2025 Team Status: Inactive Member Role/Relationship Status Dates Ricki Griffin REGISTER CLERK, REGISTER CLERK-C Primary Care Provider Active Start: May 01, 2025 End: May 01, 2025 Ricki Griffin REGISTER CLERK, REGISTER CLERK-C Attending Provider Ac tive Start: May 01, 2025 End: May 01, 2025 Ricki Griffin REGISTER CLERK, REGISTER CLERK-C Referring Provider Ac tive Start: May 01, 2025 End: May 01, 2025 Team Status: Inactive Member Role/Relationship Status Dates Ricki Griffin REGISTER CLERK, REGISTER CLERK-C Primary Care Provider Active Start: May End: June 09, 2025 Ricki Griffin REGISTER CLERK, REGISTER CLERK-C Attending Provider Active Start: June 09, 2025 End: June 09, 2025 Ricki Griffin REGISTER CLERK, REGISTER CLERK-C Referring Provider Active Start: June 09, 2025 End: June 09, 2025 Team Status: Inactive Member Role/Relationship Status Dates Ricki Griffin REGISTER CLERK, REGISTER CLERK-C Primary Care Provider Active Start: June [id number] End: June 16, 2025 Ricki Griffin REGISTER CLERK, REGISTER CLERK-C Attending Provider Active Start: June End: June 16, 2025 Ricki Hugh [place] REGISTER CLERK, REGISTER CLERK-C Referring Provider Active Start: June End: June 16, 2025 Team Status: Active Member Role/Relationship Status Dates Ricki Griffin REGISTER CLERK, REGISTER CLERK-C Primary care physicia n Active Team Status: Inactive Member Role/Relationship Status Dates Ricki Griffin REGISTER CLERK, REGISTER CLERK-C Primary care physicia n Active Start: March 12, 2025 End: March 12, 2025 Dr. Jose Antonio Reeves MD Attending physician Active Start: March 12, 2025 End: March 12, 2025 Dr. Jose Antonio Reeves MD Referring Provider Active S tart: March 12, 2025 End: March 12, 2025 Team Status: Inactive Member Role/Relationship Status Dates Ricki Griffin REGISTER CLERK, REGISTER CLERK-C Primary care physicia n Active Start: March 29, 2025 End: March 29, 2025 Austen Castro REGISTER CLERK, REGISTER CLERK-C Attending physician Active Start: March 29, 2025 End: March 29, 2025 Austen Castro REGISTER CLERK, REGISTER CLERK-C Referring Provider Active S tart: March 29, 2025 End: March 29, 2025 Team Status: Active Member Role/Relationship Status Dates Ricki Griffin REGISTER CLERK, REGISTER CLERK-C Primary care physicia n Active Start: March 29, 2025 Dr. Jose Antonio Reeves MD Attending physician Active Start: March 29, 2025 Team Status: Active Member Role/Relationship Status Dates Ricki Griffin REGISTER CLERK, REGISTER CLERK-C Primary care physicia n Active Start: March 30, 2025 Lashay Prater REGISTER CLERK, REGISTER CLERK-C Attending physician Active Start: March 30, 2025 Team Status: Inactive Member Role/Relationship Status Dates Ricki Griffin REGISTER CLERK, REGISTER CLERK-C Primary care physicia n Active Start: April 30, 2025 End: April 30, 2025 Ricki Griffin REGISTER CLERK, REGISTER CLERK-C Attending physician A ctive Start: April 30, 2025 End: April 30, 2025 Ricki Griffin REGISTER CLERK, REGISTER CLERK-C Referring Provider Ac tive Start: April 30, 2025 End: April 30, 2025 Team Status: Inactive Member Role/Relationship Status Dates Ricki Griffin REGISTER CLERK, REGISTER CLERK-C Primary care physicia n Active Start: May 01, 2025 End: May 01, 2025 Ricki Griffin REGISTER CLERK, REGISTER CLERK-C Attending physician A ctive Start: May 01, 2025 End: May 01, 2025 Ricki Griffin REGISTER CLERK, REGISTER CLERK-C Referring Provider Ac tive Start: May 01, 2025 End: May 01, 2025 Team Status: Inactive Member Role/Relationship Status Dates Ricki Griffin REGISTER CLERK, REGISTER CLERK-C Primary care physician Active Start: May End: June 09, 2025 Ricki Griffin REGISTER CLERK, REGISTER CLERK-C Attending physician Active Start: June 09, 2025 End: June 09, 2025 Ricki Griffin REGISTER CLERK, REGISTER CLERK-C Referring Provider Active Start: June 09, 2025 End: June 09, 2025 Team Status: Inactive Member Role/Relationship Status Dates Ricki Griffin REGISTER CLERK, REGISTER CLERK-C Primary care physician Active Start: June 16, 2025 End: June 16, 2025 Ricki Griffin REGISTER CLERK, REGISTER CLERK-C Attending physician Active Start: June End: June 16, 2025 Ricki Griffin REGISTER CLERK, REGISTER CLERK-C Referring Provider Active Start: June End: June 16, 2025 Team Status: Inactive Member Role/Relationship Status Dates Ricki Griffin REGISTER CLERK, REGISTER CLERK-C Primary care physician Active Start: June 30, 2025 End: June 30, 2025 Ricki Griffin REGISTER CLERK, REGISTER CLERK-C Referring Provider Active Start: June End: June 30, 2025 Austen Castro REGISTER CLERK, REGISTER CLERK-C Attending physician Active Start: June 30, 2025 End: June 30, 2025 Care Team (unrecognized sect ion and content) Care Team Personnel Name: RICKI GRIFFIN DESIGN ENGINEER - PLASTIC MOLDING OPERATOR Position: P4 Advanced Practice Nurse Member Role: Primary Care Physician Address: Address: [address] [place] [address]- [place] Care Team Related Persons Name: ALEKSANDAR KATE INFORMATION SOURCE (unrecogn ized section and content) DATE CREATED AUTHOR 09/26/2022 [facility] [place] [facility] DATE CREATED AUTHOR AUTHOR'S ORGANIZ ATION 03/27/2023 [facility] DATE CREATED AUTHOR AUTHOR'S ORGANIZ ATION 12/28/2023 [facility] DATE CREATED AUTHOR AUTHOR'S ORGANIZ ATION 12/23/2024 [facility] DATE CREATED AUTHOR AUTHOR'S ORGANIZ ATION 07/08/2025 [facility] DATE CREATED AUTHOR AUTHOR'S ORGANIZ ATION 07/27/2025 [facility] FOR RECORDS PERTAINING TO PATIENTS WHO ARE [...] BE BASED ON THE PRIMARY CLINICAL RECORDS. [employer] [facility]. provides no warranty or guarantee of the accuracy or completeness of information in this document.
[2025-07-30 15:03] LABS: Hematocrit 32.9 % (37-47); Hemoglobin 10.8 g/dL (12.0-15.0); Mean Corp Hgb Conc 32.8 g/dL (32-36); Mean Corpuscular Volume 90.9 fL (81-99); Mean Platelet Vol. 9.7 fl (6.2-12.0); Platelet Count 369 K/mm3 (150-450); RBC Distribution Width CV 14.6 % (11.6-14.6); RBC Distribution Width SD 48.3 fl (35.1-43.9); Red Blood Count 3.62 M/mm3 (4.2-5.4); White Blood Count 6.4 K/mm3 (4.4-11.0)
[2025-07-30 15:47] LABS: Iron Binding Capacity,Total 417 ug/dL (250-450)
[2025-07-30 15:51] LABS: Iron 65 ug/dL (50-170); Iron Binding Capacity,Unsat 352 ug/dL (228-428)
== END | disposition home or self-care (01) ==
LOC: LAB 14:20
PROVIDERS: PCP Nurse Practitioner Family; Referring Provider Nurse Practitioner Family; Visit Provider Nurse Practitioner Family
DX: E78.5 Hyperlipidemia, unspecified (principal); J44.9 Chronic obstructive pulmonary disease, unspecified; R63.8 Other symptoms and signs concerning food and fluid intake; D50.9 Iron deficiency anemia, unspecified
CPT/HCPCS: 36415; 83540; 83550; 85027